=== PATIENT | female | born 1950 | race Caucasian/White ===

== ENCOUNTER → 2016-11-28 | Outpatient (CLI) | payer MEDICARE, MEDICAID ==
[~2016-11-28] MED LIST: ALBU8.5H2 IH; AMLO5TAB2 PO; ATOR20TA66 PO; AZIT-21 PO; BUDE6HFA IH; FURO40TA4 PO; IPR14IN INH; KCL10CCR PO; LISI40TA PO; LVT.15T PO; NF-ESOM40C PO; PRD20T PO; SITA100T PO; TRAM50TA2 PO; WRF5T PO
--- NOTE | 2016-12-03 08:26 | ECHOCARDIOGRAPHY REPORT ---
DATE OF SERVICE: 12/01/2016 PROCEDURE: 2D Echocardiogram REFERRING PHYSICIAN: Penny Katz NP MEASUREMENT: LVID end diastolic 4.6, IVS thickness 0.9, LVPW thickness 0.9, left atrial diameter 3.7, ejection fraction 60%. FINDINGS: 1. Technical quality is good. 2. The left ventricle is normal in size with normal contractility, systolic function appears to be normal, estimated ejection fraction is 60%. 3. The left atrium is normal in size, no clot or thrombus were seen within the left atrium. 4. The right atrium and right ventricle are normal in size. No clot or thrombus were seen within the right side. 5. The mitral valve is normal in morphology with mild mitral regurgitation noted by color Doppler flow. No mitral valve prolapse, no mitral valve stenosis. 6. The aortic valve is trileaflet with normal opening and closing pattern. No significant aortic stenosis or regurgitation was seen. 7. The tricuspid valve is normal in morphology with mild tricuspid regurgitation noted by color Doppler flow. Doppler across tricuspid valve estimated pulmonary artery pressure of 21 plus right atrial pressure. 8. Pulmonic valve is functioning normally. 9. No pericardial effusion. IN CONCLUSION: 1. Normal left ventricular size and systolic function. Estimated ejection fraction 60%. 2. Mild mitral and tricuspid regurgitation. 3. Estimated pulmonary artery pressure of 30 mmHg. Job ID: [id number] DocumentID: [id number] Dictated Date: 12/02/2016 15:07:01 Manager Field Sales Date: 12/03/2016 07:02:19 Dictated By: PERRY DEY MD
== END ==
LOC: CARD 14:56
PROVIDERS: ATTEND Physician Assistant
DX: I48.2 Chronic atrial fibrillation (principal); E11.9 Type 2 diabetes mellitus without complications; I10 Essential (primary) hypertension; E78.2 Mixed hyperlipidemia

== ENCOUNTER 2020-01-14 01:02 | Emergency (ER) | payer MEDICARE, MEDICAID ==
[~2020-01-14] VITALS: Ht 162.6 cm; Wt 122.7 kg
--- NOTE | 2020-01-14 01:09 | ED Lower Extremity ---
General Stated Complaint: RT KNEE PAIN Source: patient Exam Limitations: no limitations History of Present Illness Date Seen by Provider: Jan 14, 2020 Time Seen by Provider: 01:00 Initial Comments The patient presents to ER by EMS from home with chief complaint 2 days ago she was getting out of a car got her legs tangled up causing some twisting motion and continued pain in her right hip. She says this pain in her leg has been getting worse. She took tramadol at 1400 yesterday and ibuprofen about 6 hours ago with good effect. She says when she got up to go to the bathroom her pain was back and severe so she decided to come to the ER. She is mostly oxygen dependent and uses breathing treatments but she says she is out of both. She myra jimenes follows with Penny Rodriguez at [facility]. She takes blood pressure medicines. She's having no chest pain abdominal pain nausea vomiting fever chills cough shortness of breath. Allergies and Home Medications Allergies Coded Allergies: No Known Drug Allergies (Unverified , 03/07/13) Home Medications Albuterol 8.5 Gm Hfa.aer.ad, 2 PUFF IH Q6H PRN, (Reported) NEEDED FOR SHORTNESS OF BREATH Amlodipine Besylate 5 Mg Tablet, 5 MG PO DAILY, (Reported) Atorvastatin 20 Mg Tablet, 20 MG PO HS, (Reported) Azithromycin 250 Mg Tab, 250 MG PO DAILY Prescribed by: DAVID LYON on 03/09/13 1015 Budesonide/Formoterol Fumarate 10.2 Gm Hfa.aer.ad, 2 PUFF IH BID PRN, (Reported) NEEDED FOR BREATHING Esomeprazole Mag Trihydrate 40 Mg Capsule.dr, 40 MG PO HS, (Reported) Furosemide 40 Mg Tablet, 40 MG PO DAILY, (Reported) Ipratropium Maple 12.9 Gm Aers, 2 PUFF INH QID PRN, (Reported) NEEDED FOR BREATHING Levothyroxine Sodium 150 Mcg Tablet, 150 MCG PO DAILY, (Reported) Lisinopril 40 Mg Tablet, 40 MG PO DAILY, (Reported) Potassium Chloride 10 Meq Tablet.sa, 10 MEQ PO HS, (Reported) Prednisone 20 Mg Tab, 20 MG PO DAILY Prescribed by: DAVID LYON on 03/09/13 1015 Sitagliptin Phosphate 100 Mg Tablet, 100 MG PO DAILY, (Reported) Tramadol Hcl 50 Mg Tablet, 50-100 MG PO TID PRN, (Reported) TAKES 1-2 (50MG) TABLETS THREE TIMES DAILY NEEDED FOR PAIN Warfarin Sodium 5 Mg Tablet, 5 MG PO HS, (Reported) Patient Home Medication List Home Medication List Reviewed: Yes Review of Systems Constitutional: No chills, No diaphoresis EENTM: No ear discharge, No eye pain Respiratory: No cough, No short of breath Cardiovascular: No chest pain, No edema Gastrointestinal: No abdominal pain, No nausea, No vomiting Genitourinary: No discharge, No dysuria Control/STD Prophylaxis: None Musculoskeletal: see HPI; No back pain; joint pain Skin: No pruritus, No rash Psychiatric/Neurological: Denies Headache, Denies Numbness, Denies Paresthesia All Other Systems Reviewed Negative Unless Noted: Yes Past Vohdcph-Nfktwa-Qxkkut Hx Patient Social History Alcohol Use: Denies Use Recreational Drug Use: No Smoking Status: Current Everyday Smoker Type Used: Cigarettes Immunizations Up To Date Date of Pneumonia Vaccine: Mar 09, 2013 Seasonal Allergies Seasonal Allergies: No Past Medical History Asthma, Chronic Bronchitis, Sleep Apnea, COPD 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 oz. 118.761855ea; BMI Method: General Appearance: WD/WN, moderate distress HEENT: PERRL/EOMI, normal ENT inspection, pharynx normal Neck: non-tender, full range of motion, normal inspection Cardiovascular: normal peripheral pulses, regular rate, rhythm, other (2+ out of 4 dorsal pedal pulse bilateral, symmetric) Respiratory: respiratory distress (mild sp02 88%), decreased breath sounds, wheezing Gastrointestinal: normal bowel sounds, non tender, soft Hips: left hip non-tender; bilateral hip normal inspection; left hip normal range of motion Legs: bilateral leg non-tender, bilateral leg normal inspection, bilateral leg normal range of motion, bilateral leg no evidence of injury Knees: bilateral knee non-tender, bilateral knee normal inspection, bilateral knee normal range of motion, bilateral knee no evidence of injury; right knee other (well-healed, old scar) Neurologic/Tendon: normal sensation, normal motor functions, normal tendon functions Neurologic/Psychiatric: no motor/sensory deficits, alert, normal mood/affect, oriented x 3 Skin: normal color, warm/dry Progress/Results/Core Measures Results/Orders Lab Results Laboratory Tests Test 01/14/20 01:05 01/14/20 01:25 Range/Units White Blood Count 11.6 H 4.3-11.0 10^3/uL Red Blood Count 4.97 4.35-5.85 10^6/uL Hemoglobin 14.6 11.5-16.0 G/DL Hematocrit 45 35-52 % Mean Corpuscular Volume 91 80-99 FL Mean Corpuscular Hemoglobin 29 25-34 PG Mean Corpuscular Hemoglobin Concent 32 32-36 G/DL Red Cell Distribution Width 15.8 H 10.0-14.5 % Platelet Count 257 130-400 10^3/uL Mean Platelet Volume 10.1 7.4-10.4 FL Neutrophils (%) (Auto) 75 42-75 % Lymphocytes (%) (Auto) 9 L 12-44 % Monocytes (%) (Auto) 14 H 0-12 % Eosinophils (%) (Auto) 2 0-10 % Basophils (%) (Auto) 0 0-10 % Neutrophils # (Auto) 8.7 H 1.8-7.8 X 10^3 Lymphocytes # (Auto) 1.0 1.0-4.0 X 10^3 Monocytes # (Auto) 1.7 H 0.0-1.0 X 10^3 Eosinophils # (Auto) 0.2 0.0-0.3 10^3/uL Basophils # (Auto) 0.0 0.0-0.1 10^3/uL Prothrombin Time 33.3 H 12.2-14.7 SEC INR Comment 3.1 H 0.8-1.4 Activated Partial Thromboplast Time 47 H 24-35 SEC Sodium Level 136 135-145 MMOL/L Potassium Level 4.5 3.6-5.0 MMOL/L Chloride Level 100 98-107 MMOL/L Carbon Dioxide Level 25 21-32 MMOL/L Anion Gap 11 5-14 MMOL/L Blood Urea Nitrogen 19 H 7-18 MG/DL Creatinine 0.99 0.60-1.30 MG/DL Estimat Glomerular Filtration Rate 56 BUN/Creatinine Ratio 19 Glucose Level 190 H 70-105 MG/DL Calcium Level 9.5 8.5-10.1 MG/DL Corrected Calcium 9.9 8.5-10.1 MG/DL Total Bilirubin 0.7 0.1-1.0 MG/DL Aspartate Amino Transf (AST/SGOT) 20 5-34 U/L Alanine Aminotransferase (ALT/SGPT) 14 0-55 U/L Alkaline Phosphatase 92 40-136 U/L C-Reactive Protein High Sensitivity 10.77 H 0.00-0.50 MG/DL Total Protein 7.8 6.4-8.2 GM/DL Albumin 3.5 3.2-4.5 GM/DL Urine Color OTHER H Urine Clarity CLOUDY Urine pH 5.5 5-9 Urine Specific [place] 1.010 L 1.016-1.022 Urine Protein NEGATIVE NEGATIVE Urine Glucose (UA) NEGATIVE NEGATIVE Urine Ketones NEGATIVE NEGATIVE Urine Nitrite POSITIVE H NEGATIVE Urine Bilirubin NEGATIVE NEGATIVE Urine Urobilinogen 1.0 < = 1.0 MG/DL Urine Leukocyte Esterase NEGATIVE NEGATIVE Urine RBC (Auto) TRACE-I NEGATIVE Urine RBC 0-2 /HPF Urine WBC NONE /HPF Urine Squamous Epithelial Cells 0-2 /HPF Urine Crystals NONE /LPF Urine Bacteria LARGE H /HPF Urine Casts NONE /LPF Urine Mucus NEGATIVE /LPF Urine Culture Indicated YES My Orders Orders - PAULINE GUPTA Ed Iv/Invasive Line Start (01/14/20 01:06) Cbc With Automated Diff (01/14/20 01:06) Comprehensive Metabolic Panel (01/14/20 01:06) Chest 1 View, Ap/Pa Only (01/14/20 01:06) Knee, Right, 3 Views (01/14/20 01:06) Hip, Right, 2 Views (01/14/20 01:06) Fentanyl Injection (Sublimaze Injection (01/14/20 01:15) Albuterol/Ipra Inhalation Soln (Duoneb I (01/14/20 01:15) Svn Small Volume Nebulizer (01/14/20 01:09) Protime With Inr (01/14/20 01:11) Partial Thromboplastin Time (01/14/20 01:11) Ct Pelvis Wo (01/14/20 ) Fentanyl Injection (Sublimaze Injection (01/14/20 02:00) Ed Iv/Invasive Line Start (01/14/20 02:21) Ns Iv 1000 Ml (Sodium Chloride 0.9%) (01/14/20 02:21) Hs C Reactive Protein (01/14/20 02:22) Continuous Ekg Monitoring (01/14/20 02:27) Ekg Tracing (01/14/20 02:27) Ua Culture If Indicated (01/14/20 02:27) Catheter(Urinary) Insert & Ass 03,15 (01/14/20 02:27) Urine Culture (01/14/20 01:25) Ceftriaxone For Iv Use (Rocephin For I (01/14/20 03:30) Rx-Hydrocodone/Apap 5-325 Mg (Rx-Vicodin (01/14/20 03:30) Medications Given in ED Current Medications Medications Dose Ordered Sig/Jordan Route Start Time Stop Time Status Last Admin Dose Admin Albuterol/ Ipratropium 3 ml ONCE ONCE INH 01/14/20 01:15 01/14/20 01:16 DC 01/14/20 02:00 3 ML Fentanyl Citrate 50 mcg ONCE ONCE IVP 01/14/20 01:15 01/14/20 01:16 DC 01/14/20 01:26 50 MCG Fentanyl Citrate 75 mcg ONCE ONCE IVP 01/14/20 02:00 01/14/20 02:01 DC 01/14/20 01:59 75 MCG Vital Signs/I&O 01/14/20 01/14/20 01:03 02:07 Temp 36.7 Pulse 119 Resp 28 B/P (MAP) 140/82 (101) Pulse Ox 92 92 O2 Delivery Nasal Cannula Nasal Cannula O2 Flow Rate 2.00 2.00 FiO2 28 Progress Progress Note #1: Time: 01:51 Progress Note 50 micro grams of fentanyl did some mild relief of pain. Given in the 75 g. X- rays were obtained of the right hip and knee which were unrevealing of any fracture. A CT of the pelvis without IV contrast was obtained looking for occult pelvis/hip fracture. Basic labs and urine. Matre catheter was initiated is a patient is unable to bear weight. Progress Note #2: Time: 02:25 Progress Note After the second dose of 75 g of fentanyl with patient's pain is under control however she began to desat again because she was mouth breathing so we put her on oxygen mask at 6 L which keeps her about 95-96%. Her heart rate is still elevated and irregular so we will obtain an EKG. A liter fluids as she appears to be dry. Imaging does not show any fracture or other explanation such as incarcerated hernia. Her PT/INR is 3.1 so it's unlikely she has a clot in her leg. She has great dorsal pedal pulses bilaterally making peripheral arterial disease unlikely. Plan to give her a liter fluids and see if that controls her tachycardia. Since she arrived she's been around 110+ or minus A. fib. Progress Note #3: Time: 03:28 Progress Note Reexamination the patient at patient's still having some tenderness on movement of her leg she has full range of motion. She was offered a stay in the hospital for IV antibiotics and pain meds for intractable pain but she says if we can send her home with something for pain she would be okay. We don't have an orthopedic surgeon on-call so we have requested she follow up with Penny Rodriguez and they can redirect from there. She says this is an acceptable plan. We'll discontinue the Marte catheter give her a gram or Rocephin and a take-home pack of hydrocodone. After her liter of fluids her heart rate has come down into the 90s plus or minus still in A. fib. Initial ECG Impression Date: Jan 14, 2020 Initial ECG Impression Time: 02:25 Initial ECG Rate: 109 Initial ECG Rhythm: A Fib/Flutter Initial ECG Intervals: QT (469) Initial ECG Impression: Atrial Fibrillation Initial ECG Comparisson: Unchanged Comment Atrial fibrillation with tachycardia Diagnostic Imaging Diagonstic Imaging: Xray Plain Films/CT/US/NM/MRI: chest Comments No acute cardio pulmonary processes. Reviewed: Reviewed by Me Diagonstic Imaging: Xray Plain Films/CT/US/NM/MRI: knee (right) Comments Hardware in good place. No acute fracture. Reviewed: Reviewed by Me Diagonstic Imaging: Xray Plain Films/CT/US/NM/MRI: hip (right) Comments Moderate osteoarthritis without acute fracture. Reviewed: Reviewed by Me Diagonstic Imaging: CT (without IV contrast) Plain Films/CT/US/NM/MRI: pelvis Comments Umbilical hernia, nonincarcerated. No acute osseous abnormalities. Moderate load of stool bilaterally. Diverticulosis without diverticulitis. Reviewed: Reviewed [place] Study, Reviewed by Me Departure Impression Primary Impression: Right leg pain Additional Impression: UTI (urinary tract infection) Qualified Codes: N30.00 - Acute cystitis without hematuria Disposition: HOME, SELF-CARE Condition: Stable Departure-Patient Inst. Decision time for Depature: 03:15 Referrals: PENNY RODRIGUEZ (PCP) Primary Care Physician Patient Instructions: Acute Cystitis (DC), Opioids for Short-Term Treatment of Pain Add. Discharge Instructions: superannuation funds manager the antibiotic and take one capsule twice a day with food. You may use the hydrocodone one tablet every 6 hours as needed for breakthrough pain. Tylenol 650 mg every 8 hours. Ibuprofen 600 mg every 8 hours. Heating pads, topical creams such as icy hot or Biofreeze etc. Plan to follow up with Penny Rodriguez on Thursday to discuss your pain. You may return to the ER if you're having insurmountable pain, fever or other worrisome symptoms. Scripts Hydrocodone/Acetaminophen (Hydrocodone-Acetamin 5-325 mg) 1 Each Tablet 1 EACH PO Q6H PRN for PAIN-BREAKTHROUGH, #20 TAB 0 Refills Prov: PAULINE GUPTA 01/14/20 Cephalexin (Cephalexin) 500 Mg Tablet 500 MG PO BID for 7 Days, #14 TAB 0 Refills Prov: PAULINE GUPTA 01/14/20 PAULINE GUPTA Jan 14, 2020 01:09
[2020-01-14] MEDS ORDERED: RT-ALBUTEROL/IPRATROPIUM 3 ML (DUONEB) VIAL INH ONE (01:15)
[2020-01-14] MEDS ORDERED: fentaNYL INJECTION 100 MCG/2 ML AMP IVP ONE ×2 (01:15→02:00)
[2020-01-14 01:22] LABS: BASOPHILS % (AUTO) 0 % (0-10); EOSINOPHILS # (AUTO) 0.2 10^3/uL (0.0-0.3); EOSINOPHILS % (AUTO) 2 % (0-10); HEMATOCRIT 45 % (35-52); HEMOGLOBIN 14.6 G/DL (11.5-16.0); LYMPHOCYTES % (AUTO) 9 % (12-44); MEAN CORPUSCULAR HEMOGLOBIN 29 PG (25-34); MEAN CORPUSCULAR HGB CONC 32 G/DL (32-36); MEAN CORPUSCULAR VOLUME 91 FL (80-99); MEAN PLATELET VOLUME 10.1 FL (7.4-10.4); MONOCYTES # (AUTO) 1.7 X 10^3 (0.0-1.0); MONOCYTES % (AUTO) 14 % (0-12); NEUTROPHILS # (AUTO) 8.7 X 10^3 (1.8-7.8); NEUTROPHILS % (AUTO) 75 % (42-75); PLATELET COUNT 257 10^3/uL (130-400); RED CELL DISTRIBUTION WIDTH 15.8 % (10.0-14.5); WHITE BLOOD COUNT 11.6 10^3/uL (4.3-11.0)
[2020-01-14 01:25] LABS: ALBUMIN 3.5 GM/DL (3.2-4.5); POTASSIUM 4.5 MMOL/L (3.6-5.0)
[2020-01-14 01:26] LABS: CALCIUM 9.5 MG/DL (8.5-10.1)
[2020-01-14 01:27] LABS: INR 3.1 (0.8-1.4); PROTHROMBIN TIME PATIENT 33.3 SEC (12.2-14.7)
[2020-01-14 01:28] LABS: TOTAL PROTEIN 7.8 GM/DL (6.4-8.2)
[2020-01-14 01:29] LABS: BILIRUBIN,TOTAL 0.7 MG/DL (0.1-1.0)
[2020-01-14 01:31] LABS: CREATININE SERUM 0.99 MG/DL (0.60-1.30)
[2020-01-14] MEDS ORDERED: NS IV 1000 ML 1,000 ML IV SCH (02:21)
[2020-01-14 02:39] LABS: BILIRUBIN,URINE NEGATIVE (NEGATIVE); CLARITY,URINE CLOUDY; COLOR,URINE OTHER; GLUCOSE, URINE (UA) NEGATIVE (NEGATIVE); KETONES,URINE NEGATIVE (NEGATIVE); LEUKOCYTE ESTERASE ,URINE NEGATIVE (NEGATIVE); NITRITE,URINE POSITIVE (NEGATIVE); PH,URINE 5.5 (5-9); PROTEIN,URINE NEGATIVE (NEGATIVE)
[2020-01-14 02:52] LABS: BACTERIA,URINE LARGE /HPF; RBC,URINE 0-2 /HPF; SQUAMOUS EPITHELIAL CELL,UR 0-2 /HPF
[2020-01-14] MEDS ORDERED: cefTRIAXone FOR IV USE 1,000 MG in WATER (STERILE) FOR INJECTION 10 ML IV ONE (03:30)
[2020-01-14] MEDS ORDERED: RX-HYDROCODONE/APAP 5/325 MG #4 TAB PK PO PRN (03:30)
[2020-01-14] MEDS ORDERED: HYDR-83 PO (03:34)
[2020-01-14] MEDS ORDERED: CEPH500T PO (03:34)
[2020-01-14 03:36] VITALS: BP 125/61
--- NOTE | 2020-01-14 07:29 | Diagnostic Imaging Report ---
EXAMINATION: Right hip radiographs, 2 views. COMPARISON: None. HISTORY: 69-year-old female, fall. Right hip pain. FINDINGS: The right hip is not dislocated. There is moderate joint space loss of the right hip. There is osteophyte formation. There is no identified acute fracture. IMPRESSION: 1. No identified acute bony abnormality of the right hip. 2. Moderate osteoarthritis of the right hip. Dictated by: Dictated on workstation # [id number]
--- NOTE | 2020-01-14 07:38 | Diagnostic Imaging Report ---
EXAMINATION: Chest radiograph, portable AP view. DATE: 01/14/2020 1:53 AM hours. INDICATION: 69-year-old female, right hip injury. Fall. COMPARISON: March 08, 2013. FINDINGS: Heart size and mediastinal contours are unremarkable. There is no identified pneumothorax. There is no large pleural effusion. There is no identified focal airspace consolidation. There is no identified significantly displaced rib fracture. IMPRESSION: No identified acute cardiopulmonary abnormality. Dictated by: Dictated on workstation # [id number]
--- NOTE | 2020-01-14 07:38 | Diagnostic Imaging Report ---
EXAMINATION: Right knee radiographs, 3 views. COMPARISON: September 23, 2012. HISTORY: 69-year-old female, fall. Right knee pain. FINDINGS: There is a right total knee prosthesis. The hardware appears intact. There is no identified periprosthetic lucency. There is no right knee joint effusion. There is no identified acute fracture. IMPRESSION: 1. No identified acute bony abnormality at the level of the right knee. 2. Intact total right knee prosthesis without apparent complication. Dictated by: Dictated on workstation # [id number]
--- NOTE | 2020-01-14 07:40 | Diagnostic Imaging Report ---
PROCEDURE: CT pelvis without contrast. TECHNIQUE: Multiple contiguous axial images were obtained through the pelvis without the use of intravenous contrast. Sagittal and coronal reformations were performed. Auto Exposure Controls were utilized during the CT exam to meet ALARA standards for radiation dose reduction. DATE: January 14, 2020. INDICATION: 69-year-old female, fall. Right hip pain. COMPARISON: None. FINDINGS: There is no identified acute fracture. The hips are not dislocated. There is moderate to severe joint space loss of the right hip with osteophyte formation. There is mild to moderate joint space loss of the left hip with minimal osteophyte formation. The sacroiliac joints are grossly unremarkable in appearance. There are facet degenerative changes bilaterally at L4-L5 and L5-S1. There is no pronounced disc height loss at L4-L5 or L5-S1. There are atherosclerotic calcifications. There is no identified free pelvic fluid or sizable focal fluid collection. There is diverticulosis without evidence of acute diverticulitis. There is an anterior abdominal wall hernia containing segments of small bowel without evidence of obstruction. There is also an additional incompletely imaged anterior abdominal wall hernia containing segments of colon without findings to specifically suggest obstruction at this hernia site. IMPRESSION: 1. No identified acute osseous abnormality of the pelvis or either hip. 2. Anterior abdominal wall hernias containing small bowel and large bowel without clear evidence of obstruction. 3. No sizable focal fluid collection or free pelvic fluid. Dictated by: Dictated on workstation # [id number]
== END 2020-01-14 03:36 | disposition home or self-care (01) ==
LOC: EDUNIT# 01:02 → ER 01:04
DX: M79.604 Pain in right leg (principal); N39.0 Urinary tract infection, site not specified; E11.9 Type 2 diabetes mellitus without complications; J44.9 Chronic obstructive pulmonary disease, unspecified; K21.9 Gastro-esophageal reflux disease without esophagitis; F17.210 Nicotine dependence, cigarettes, uncomplicated; Z79.52 Long term (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 systemic steroids; Z79.84 Long term (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 oral hypoglycemic drugs; Z79.01 Long term (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; X50.1XXA Overexertion from prolonged static or awkward postures, initial encounter
CPT/HCPCS: 36415; 51702; 71045; 72192; 73502; 73562; 80053; 81000; 85025; 85610; 85730; 86141; 87077; 87088; 87186; 93005; 94640; 94760

== ENCOUNTER 2020-01-28 14:14 | Emergency (ER) | payer MEDICARE, MEDICAID ==
[~2020-01-28] VITALS: Ht 162.6 cm; Wt 122.7 kg
[~2020-01-28 14:14] MED LIST changes: +CEPH500T PO; +HYDR-83 PO
[2020-01-28] MEDS ORDERED: NS IV 500 ML 500 ML IV ONE (14:18)
--- OUTSIDE RECORDS SUMMARY | 2020-01-28 14:22 | XMS REPORT ---
Author Author [employer] [facility] Address [address] [address] Care Team Providers Care Authorization Representative Name Role Phone MICHAEL, GEORGINA Unavailable Unavailable MICHAEL, GEORGINA Unavailable DAVID LYON Unavailable MICHAEL, GEORGINA Unavailable DAVID LYON Unavailable MICHAEL, GEORGINA Unavailable DAVID LYON Unavailable MICHAEL, GEORGINA Unavailable MICHAEL, GEORGINA Unavailable MICHAEL, GEORGINA Unavailable MICHAEL, GEORGINA Unavailable MICHAEL, GEORGINA Unavailable MICHAEL, GEORGINA Unavailable MICHAEL, GEORGINA Unavailable MICHAEL, GEORGINA Unavailable MICHAEL, GEORGINA Unavailable MICHAEL, GEORGINA Unavailable MICHAEL, GEORGINA Unavailable MICHAEL, GEORGINA Unavailable MICHAEL, GEORGINA Unavailable MICHAEL, GEORGINA Unavailable MICHAEL, GEORGINA Unavailable MICHAEL, GEORGINA Unavailable MICHAEL, GEORGINA Unavailable MICHAEL, GEORGINA Unavailable MICHAEL, GEORGINA Unavailable MICHAEL, GEORGINA Unavailable MICHAEL, GEORGINA Unavailable MICHAEL, GEORGINA Unavailable MICHAEL, GEORGINA Unavailable MICHAEL, GEORGINA Unavailable MICHAEL, GEORGINA Unavailable MICHAEL, GEORGINA Unavailable MICHAEL, GEORGINA Unavailable MICHAEL, GEORGINA Unavailable MICHAEL, GEORGNIA Unavailable MICHAEL, GEORGINA Unavailable MICHAEL, GEORGINA Unavailable MICHAEL, GEORGINA Unavailable MICHAEL, GEORGINA Unavailable MIGUE, ANGEL Unavailable Unavailable MIGUE, ANGEL Unavailable Unavailable MIGUE, ANGEL Unavailable Unavailable Migration, Doctor Unavailable Unavailable Migration, Doctor Unavailable Unavailable Migration, Doctor Unavailable Unavailable Migration, Doctor Unavailable Unavailable Migration, Doctor Unavailable Unavailable Migration, Doctor Unavailable Unavailable MICHAEL, GEORGINA HOOKMAN Unavailable Unavailable MICHAEL, GEORGINA Unavailable MICHAEL, GEORGINA Unavailable MICHAEL, GEORGINA Unavailable MICHAEL, GEORGINA S Unavailable Unavailable MICHAEL, GEORGINA Unavailable MICHAEL, GEORGINA Unavailable MICHAEL, GEORGINA Unavailable MICHAEL, GEORGINA Unavailable MICHAEL, GEORGINA Unavailable MICHAEL, GEORGINA Unavailable MICHAEL, GEORGINA Unavailable MICHAEL, GEORGINA Unavailable MICHAEL, GEORGINA Unavailable MICHAEL, GEORGINA Unavailable MICHAEL, GEORGINA Unavailable MICHAEL, GEORGINA Unavailable MICHAEL, GEORGINA Unavailable MICHAEL, GEORGINA Unavailable MICHAEL, GEORGINA Unavailable MICHAEL, GEORGINA Unavailable MICHAEL, GEORGINA Unavailable MICHAEL, GEORGINA Unavailable Unavailable Unavailable MICHAEL, GEORGINA Unavailable MICHAEL, GEORGINA Unavailable MICHAEL, GEORGINA Unavailable MICHAEL, GEORGINA Unavailable MICHAEL, GEORGINA Unavailable MICHAEL, GEORGINA Unavailable MICHAEL, GEORGINA Unavailable MICHAEL, GEORGINA Unavailable MICHAEL, GEORGINA Unavailable MICHAEL, GEORGINA Unavailable MICHAEL, GEORGINA Unavailable MICHAEL, GEORGINA Unavailable MICHAEL, GEORGINA Unavailable MICHAEL, GEORGINA Unavailable MICHAEL, GEORGINA Unavailable PAULINE GUPTA MD Unavailable Unavailable ANGEL CAMARENA Unavailable Unavailable PERRY BOYD Unavailable Unavailable JASON, CATHI Unavailable Unavailable JASON, CATHI Unavailable Unavailable Unavailable Unavailable Unavailable Unavailable Unavailable Unavailable Unavailable Unavailable Unavailable Unavailable Unavailable Unavailable Unavailable Unavailable Allergies Normalized Allergy Reported Date of Reaction(s) Care Provider Facility Allergy Type classification allergen Allergy Onset DA (18 Unclassified No Known Drug 03-07-2013 - no information GEORGINAMaribel RODRIGUEZ Not Available sources.) Allergies (45863) no information Unclassified NO KNOWN DRUG NO KNOWN DRUG ANGEL MIGUEL Not Available (21 sources.) ALLERGIES ALLERGIES, (13693) UNKNOWN Medications Current Medications Medication Ingredient Drug Dose Dates Status Sig Sig Care Class(es) (Normalized) (Original) Provid er no Atrovent no 2 04-15-20 Active take 2 Atrovent HF A no information HFA 17 information puff(s 12 puff(s) by 17 n zita (1 source.) mcg/actuati ) inhalation mcg/actuatio on four times n 2 puffs by daily Inhalation route 4 times per day Apr, Active no Symbicort no 2 04-15-20 Active take 2 Symbicort no information 160-4.5 information puff(s 12 puff(s) by 160-4.5 name (1 source.) mcg/actuati ) inhalation mcg/actuatio on twice daily n inhale 2 in the puffs by morning inhalation route 2 times per day in the morning and eveningPRN Apr, Active no Ventolin no 2 10-24-19 Active take 2 Ventolin HF A no information HFA 90 information puff(s 15 puff(s) by 90 n zita (1 source.) mcg/actuati ) inhalation mcg/actuatio on every six n inhale 2 hours as puff by needed Inhalation route as needed every 6 hours for breathing Oct, Active Completed/Discontinued Medications Medication Ingredient Drug Dose Dates Status Sig Sig Care Class(es) (Normalized) (Original) Provid er no ASA 81MG no 11-14-19 no no no no information ENTERIC information 17 - informat information info rmation name (1 source.) COATED TAB 11-20-19 ion 81 MG (BABY 17 ASPIRIN EC) no BISACODYL no 10 mg 11-18-19 no no no no information SUPPOS SUP information 17 - informat informatio n information name (1 source.) 10 MG 11-18-19 ion (DULCOLAX 17 SUPPOS) no CEFUROXIME no 11-15-19 no no no no information PREMIX BAG information 17 - informat informatio n information name (1 source.) IV 750 11-15-19 ion MG/50CC 17 (ZINACEF PREMIX BAG) no cefuroxime no 1.5 g 11-14-19 no no no n o information sodium 1.5 information 17 - informat informatio n information name (1 source.) Gm vial 11-14-19 ion (Zinacef) 17 no cefuroxime no 1.5 g 09-17-19 no no no n o information sodium 1.5 information 17 - informat informatio n information name (1 source.) Gm vial 09-17-19 ion (Zinacef) 17 1.5 g 09-17-2016 no no no no name - information inform informat 09-17-2016 ation ion 1.5 g 08-07-2016 no no no no name - information inform informat 08-07-2016 ation ion no cefuroxime no 750 mg 11-14-19 no no no n o information sodium information 17 - informat information infor mation name (1 source.) 750mg vial 11-14-19 ion (Zinacef) 17 no D5 1/2 NS no 11-14-19 no no no no information 1000CC IV information 17 - informat information in formation name (1 source.) BAG INJ 0 11-21-19 ion 17 no DIPHENHYDRA no 11-14-19 no no no no information MINE VIAL information 17 - informat information in formation name (1 source.) INJ 50 11-17-19 ion MG/CC 17 (BENADRYL VIAL) no ENOXAPARIN no 30 mg 11-15-19 no no no n o information SYRINGE INJ information 17 - informat informati on information name (1 source.) 30 MG 11-23-19 ion (LOVENOX 17 SYRINGE) no Fentanyl no 01-23-20 no no no Perry information citrate information - informat information info rmation Howaye (1 source.) (PF) inj 01-23-20 ion k (no solution 20 phone) 50mcg/mL 1 mL VIAL no FENTANYL no 11-16-19 no no no no information INJ 100 information 17 - informat information info rmation name (1 source.) MCG/2CC 11-18-19 ion VIAL 17 no Hydromorpho no 01-23-20 no no no Perry information ne inj information - informat information infor mation Howaye (1 source.) 2mg/cc vial 01-23-20 ion k (no (Dilaudid) 20 phone) no KETOROLAC no 11-14-19 no no no no information VIAL INJ 30 information 17 - informat informati on information name (1 source.) MG/CC 11-15-19 ion (TORADOL 17 VIAL) no Lactulose Osmotic 11-16-19 no no no no information Laxative 17 - informat information information name (1 source.) 11-23-19 ion 17 no Normal no 11-15-19 no no no no information saline information 17 - informat information infor mation name (1 source.) Translation 11-22-19 ion s: [ NORMAL 17 SALINE 1000CC IV BAG INJ 0.9 % (NS 1000CC IV BAG)] no ONDANSETRON no 01-23-20 no no no Perry information VIAL INJ 4 information - informat informatio n information Howaye (1 source.) MG/2CC 01-23-20 ion k (no (ZOFRAN 2CC 20 phone) VIAL) 11-13-2016 no no no no name - information inform informat 11-20-2016 ation ion no oxyCODONE Opioid 5 mg 01-23-20 no no no Si mon information Agonist - informat information information Howaye (1 source.) 01-23-20 ion k (no 20 phone) no OXYCODONE/A no 11-15-19 no no no no information PAP information 17 - informat information infor mation name (1 source.) 10MG/325MG 11-25-19 ion TAB 0 17 (PERCOCET-1 0) no OXYCODONE/A no 11-14-19 no no no no information PAP information 17 - informat information infor mation name (1 source.) 10MG/325MG 11-21-19 ion TAB 0 17 (PERCOCET-1 0) no SENNA no 11-14-19 no no no no information CONC/DOCUSA information 17 - informat informati on information name (1 source.) TE TAB 0 11-20-19 ion (SENOKOT S) 17 no Temazepam Benzodiazep 15 mg 11-14-19 no no no no information ine 17 - informat information information name (1 source.) 11-20-19 ion 17 Problems Active Problems Problem Normalized Date Last Normalized Normalized Provider Fa cility Classification Problem(s) Recorded Problem Problem Sta tus Duration NEGATED Chest pain, Episodic Active no name no informa tion no unspecified information (7 sources.) Coronary Coronary Chronic Active ANGEL MIGUE Not Available atherosclerosi atherosclerosi (66577) s and other s of [place] heart disease coronary (18 sources.) artery Translations: [ ATHSCL HEART DISEASE OF [place] CORONARY ARTERY W/O ANG PCTRS] Esophageal Esophageal 01-21-2020 - Chronic Active ANGEL MIGUE Not Available disorders (20 reflux (63263) sources.) Translations: [ GASTRO-ESOPHAG EAL REFLUX DISEASE WITHOUT ESOPHAGITIS] Other oil heaterman 01-21-2020 - Episodic Active PAULINE ALONSO , [facility] aftercare (8 (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 [facility] sources.) of oral Hospital - hypoglycemic [place] [facility] (72216) Other oil heaterman 01-21-2020 - Episodic Active PAULINE ALONSO , [facility] after[facility] (8 (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 [facility] sources.) of systemic Hospital - steroids [place] (56401) Heart valve Mitral valve Chronic Active no name no info rmation disorders (3 disorders sources.) Translations: [ TRICUSPID VALVE DISEASE] Disorders of Mixed Chronic Active ANGEL CAMARENA Not Availa ble lipid hyperlipidemia (90604) metabolism (30 Translations: sources.) [ HYPERLIPIDEMIA NEC/NOS, HYPERLIPIDEMIA , UNSPECIFIED, OTHER AND UNSPECIFIED HYPERLIPIDEMIA ] Other Morbid obesity Chronic Active ANGEL CAMARENA Not [place] il[place] nutritional; (55276) endocrine; and metabolic disorders (8 sources.) Chronic Obstructive 01-21-2020 - Chronic Active ANGEL CAMARENA N ot Available obstructive chronic (46852) pulmonary bronchitis disease and with (acute) bronchiectasis exacerbation (20 sources.) Translations: [ Chronic obstructive pulmonary disease, unspecified COPD type, Chronic obstructive pulmonary disease, unspecified COPD type, CHRONIC OBSTRUCTIVE PULMONARY DISEASE W (ACUTE) EXACERBATION, OBSTRUCTIVE CHRONIC BRONCHITIS WITH (ACUTE) EXACERBATION, - Chronic obstructive pulmonary disease, unspecified COPD type J44.9] Pulmonary Other chronic Chronic Active no name no infor mation heart disease pulmonary (3 sources.) heart diseases Other Pain in right 01-21-2020 - Episodic Active PAULINE WELL ER , [facility] Via connective leg [facility] tissue disease Hospital - (16 sources.) [place] (21327) Urinary tract Urinary tract 01-21-2020 - Episodic Active PAULINE ALONSO , [facility] Via infections (8 infection, [facility] sources.) site not Hospital - specified [place] (89073) Past or Other Problems Problem Normalized Date Last Normalized Normalized Provider Fa cility Classification Problem(s) Recorded Problem Problem Sta tus Duration Unclassified OSTEO no information no information ANGEL CAMARENA Not Available (2 sources.) (04328) Other nervous Other acute Episodic Completed ANGEL CAMARENA Not Av ailable system postoperative (05680) disorders (4 pain sources.) Other nervous Other acute Episodic Completed ANGEL CAMARENA Not Av ailable system postprocedural (58349) disorders (4 pain sources.) NEGATED no information no information no information GEORGINA B RENNAN Not Available no (93355) information (1 source.) Unclassified no information no information no information BREND A MICHAEL Not Available (1 source.) (66969) Unclassified no information no information no information BREND A MICHAEL Not Available (1 source.) ([id number]) Procedures Procedure Normalized Procedure Procedure Result Performer Facility Date 05-12-2018 FQ visit, estab pt no information no name [facility] ([id number]) 05-12-2018 Hemoglobin no information no name [facility] glycosylated a1c [facility] (08893) 10-04-2013 Hemoglobin no information no name [facility] glycosylated a1c [facility] (91804) 07-02-2018 Prothrombin time no information no name [facility] (68619) 05-12-2018 Prothrombin time no information no name [facility] (90453) 04-22-2018 Prothrombin time no information no name [facility] (78839) 08-24-2014 Prothrombin time no information no name [facility] (64180) 05-02-2014 Prothrombin time no information no name [facility] (18809) 10-04-2013 Prothrombin time no information no name [facility] (53753) 08-24-2013 Prothrombin time no information no name [facility] (93994) Immunizations Normalized Immunization Date Notes Care Provider Facili ty Immunization influenza, seasonal, 05-26-2018 no information no name [facility] injectable [facility] (71580) pneumococcal 05-26-2018 no information no name [facility] conjugate vaccine, [address] ([address]) Results Test Name Value Interpretation Reference Range Date Time Fa cility (Normalized) (Normalized) (Medline Reference) not yet categorized on null Any Rx 02/2020~No~Cold (no code) [facility] medications, OTC medicine [facility] herbal products (38226) changes since last visit? CURRENT COUMADIN 4mg daily (no code) Count includes the [facility] DOSE [facility] (10512) Lot # [id number] (no code) [facility] (56953) laboratory on null INR Coag (PPP) 3.3~3.0 (no code) Critical access hospital [Relative time] [facility] (26759) inr (in house) on null INR Coag RelTime 4.5 {INR} (no code) 0.9 - 1.1 {INR} [facility] (PPP) [facility] (14555) INR Coag RelTime 4.6 {INR} (no code) 0.9 - 1.1 {INR} [facility] (PPP) [facility] (10083) INR (IN HOUSE) 5 mg qd (no code) [facility] (04738) INR (IN HOUSE) [id number] (no code) [facility] (57726) INR (IN HOUSE) 06/09/2018 (no code) [facility] (67117) a1c (in house) on null Hemoglobin 7.3 % (no code) 0 - 5.7 % [facility] A1c/Hemoglobin.t [facility] (Bld) (55977) Hemoglobin 7.0 % (no code) 0 - 5.7 % [facility] A1c/Hemoglobin.t [facility] (d) (69499) A1C (IN HOUSE) 0856 (no code) [facility] (42417) A1C (IN HOUSE) 10/2019 (no code) [facility] (64894) not yet categorized on 2020-01-23 Electrocardiogra Complete (no code) 01-23-2020 Hospital ms recorded 06:00-0400 [facility] (48143) Urine Volume Urine Volume (no code) 01-23-2020 Hospital Sufficient 05:41-0400 [facility] (10mL) [facility] (73828) no information Urine Saved if (A) 06-15-2020 Hospital Culture Needed 05:41-399 [facility] (48hrs from time [facility] of collection) (82814) laboratory on 2020-01-23 Albumin BCG dye 3.3 (L) 01-23-2020 Hospital [Mass/Vol] 05:40-040 [facility] (16576) ALP [Catalytic 94 U/L (no code) 44 - 147 U/L 01-23-2020 Hosp ital activity/Vol] 05:40040 [facility] (31492) ALT [Catalytic 19 U/L (no code) 4 - 40 U/L 01-23-2020 Hospit al activity/Vol] 05:40040 [facility] (26638) Anion gap 17 mmol/L (H) 3 - 11 mmol/L 01-23-2020 Hospital [Moles/Vol] 05:40040 [facility] (78360) AST [Catalytic 20 U/L (no code) 10 - 34 U/L 01-23-2020 Hospi rubén activity/Vol] 05:40-040 [facility] (83806) Bacteria LM Ql Negative (no code) 01-23-2020 Hospital (Urine sed) 05:41040 [facility] (64084) Base excess 9.00 (H) 01-23-2020 Hospital standard Calc 06:00-399 [facility] (BldA) [facility] [Moles/Vol] (75004) Base excess 10.00 (H) 01-23-2020 Hospital standard Calc 07:00-399 [facility] (BldA) [facility] [Moles/Vol] (12290) Basophils (Bld) 0.0 10*3/uL (no code) 0 - 0.3 10*3/uL 01-23-2020 Hospital [#/Vol] 05:40-0400 [facility] (86005) Basophils/100 0.20 % (no code) 0.5 - 1 % 01-23-2020 Hospital WBC (Bld) 05:40040 [facility] (04414) Bilirubin 0.5 mg/dL (no code) 0.1 - 1.2 mg/dL 01-23-2020 Hospit al [Mass/Vol] 05:400 [facility] (91452) Bilirubin N/A (A) 01-23-2020 Hospital Confirm Ql (U) 05:41 [facility] (00041) Bilirubin Ql (U) Negative (no code) 01-23-2020 Hospital 05:41 [facility] (73897) Calcium 9.4 mg/dL (no code) 8.5 - 10.2 mg/dL 01-23-2020 Hospi rubén [Mass/Vol] 05:40 [facility] (54056) Casts LM Ql None Seen (no code) 01-23-2020 Hospital (Urine sed) 05: [facility] (80234) Chloride 92 mmol/L (L) 95 - 106 mmol/L 01-23-2020 Hospit al [Moles/Vol] 05:40 [facility] (46935) Clarity (U) Clear (no code) 01-23-2020 Hospital 05:41 [facility] (00217) CO2 (Bld) 55 (H) 01-23-2020 Hospital [Partial 06:00 [facility] pressure] [facility] (22105) CO2 (Bld) 57 (H) 01-23-2020 Hospital [Partial 07:000 [facility] pressure] [facility] (51204) Color (U) Yellow (no code) 01-23-2020 Hospital 05:41 [facility] (40450) Creatinine 0.88 mg/dL (no code) 01-23-2020 Hospital [Mass/Vol] 05:400400 [facility] (17159) Crystals LM Nom None Seen (no code) 01-23-2020 Hospital (Urine sed) 05:41 [facility] (25064) Eosinophils 0.2 10*3/uL (no code) 0.05 - 0.5 01-23-2020 Hospita l (Bld) [#/Vol] 10*3/uL 05:400400 [facility] (68145) Eosinophils/100 1.3 % (no code) 1 - 4 % 01-23-2020 Hospit al WBC (Bld) 05:40-040 [facility] (33331) Epithelial 0-5/HPF (A) 01-23-2020 Hospital cells.squamous 05:41-040 [facility] LM.HPF (Urine [facility] sed) [#/Area] (54247) Erythrocyte 15.7 % (H) 11.6 - 14.6 % 01-23-2020 Hospit al distribution 05:40-040 [facility] width (RBC) [facility] [Ratio] (47242) GFR/1.73 sq 64 (no code) 90 - 120 01-23-2020 Hospital M.predicted MDRD mL/min/{1.73_m2} mL/min/{1.73_m2} 05:40-040 [facility] (S/P/Bld) [Vol [facility] rate/Area] (36510) Globulin (S) 4.7 g/dL (H) 2 - 3.5 g/dL 01-23-2020 Hospit al [Mass/Vol] 05:40-040 [facility] (73692) Glucose 188 mg/dL (H) 60 - 125 mg/dL 01-23-2020 Hospita l [Mass/Vol] 05:40-040 [facility] (05151) Glucose Test Negative (no code) 01-23-2020 Hospital strip (U) 05:41040 [facility] [Mass/Vol] [facility] (33666) HCO3 (BldMV) 34 (H) 01-23-2020 Hospital [Moles/Vol] 06:00 [facility] (72575) HCO3 (BldMV) 35 (H) 01-23-2020 Hospital [Moles/Vol] 07:00-0 [facility] (77944) HCO3 (P) 29 (no code) 01-23-2020 Hospital [Moles/Vol] 05:40-0400 [facility] (86910) Hematocrit (Bld) 44.6 % (no code) 36.1 - 50.3 % 01-23-2020 H ospital [Volume 05:40-0400 [facility] fraction] [facility] (80051) Hemoglobin (Bld) 14.1 g/dL (no code) 12.1 - 17.2 g/dL 01-23-2020 Hospital [Mass/Vol] 05:40-0400 [facility] (98814) Hemoglobin Ql 1+ (A) 01-23-2020 Hospital (U) 05:41 [facility] (10526) INR Coag 2.7 (no code) 01-23-2020 Hospital (Platelet poor 05:40040 [facility] plasma or blood) [facility] [Relative time] (93405) Ketones (U) Negative (no code) 01-23-2020 Hospital [Mass/Vol] 05:410400 [facility] (29629) Leukocyte Negative (no code) 01-23-2020 Hospital esterase Test 05:41 [facility] strip Ql (U) [facility] (68220) Lymphocytes 1.00 10*3/uL (no code) 0.9 - 2.9 01-23-2020 Hospita l (Bld) [#/Vol] 10*3/uL 05:400400 [facility] (47671) Lymphocytes/100 8.8 % (L) 20 - 40 % 01-23-2020 Hospit al WBC (Bld) 05:40040 [facility] (64650) MCH (RBC) 29.5 pg (no code) 27 - 31 pg 01-23-2020 Hospital [Entitic mass] 05:400400 [facility] (66315) MCHC (RBC) 31.6 g/dL (L) 32 - 36 g/dL 01-23-2020 Hospital [Mass/Vol] 05:40-0400 [facility] (19808) MCV (RBC) 93.3 fL (no code) 80 - 100 fL 01-23-2020 Hospital [Entitic vol] 05:40-0400 [facility] (72402) Monocytes (Bld) 1.1 10*3/uL (H) 0.3 - 0.9 01-23-2020 Hosp ital [#/Vol] 10*3/uL 05:40-040 [facility] (85439) Monocytes/100 9.6 % (no code) 2 - 8 % 01-23-2020 Hospital WBC (Bld) 05:40-040 [facility] (78829) Mucus Ql (Urine Negative (A) 01-23-2020 Hospital sed) 05:41-399 [facility] (60160) Neutrophils 9.13 10*3/uL (H) 1.7 - 7 10*3/uL 01-23-2020 H ospital (Bld) [#/Vol] 05:40 [facility] (64177) Neutrophils/100 80.1 % (H) 40 - 60 % 01-23-2020 Hospit al WBC (Bld) 05:40 [facility] (13541) Nitrite Ql (U) Negative (no code) 01-23-2020 Hospital 05:41 [facility] (89282) Osmolality Calc 282 (no code) 01-23-2020 Hospital [Osmolality] 05:40 [facility] (42065) Oxygen adjusted 43 (L) 01-23-2020 Hospital to patient's 06: [facility] actual [facility] temperature (04825) (BldA) [Partial pressure] Oxygen adjusted 46 (L) 01-23-2020 Hospital to patient's 07: [facility] actual [facility] temperature (42711) (BldA) [Partial pressure] Oxygen 77 RM AIR (L) 01-23-2020 Hospital saturation 06: [facility] adjusted to 0.5 [facility] (BldA) [Partial (79206) pressure] Oxygen 81 RM AIR (L) 01-23-2020 Hospital saturation 07: [facility] adjusted to 0.5 [facility] (BldA) [Partial (03722) pressure] pH (Bld) 7.39 [pH] (no code) 7.38 - 7.42 [pH] 01-23-2020 Hospi rubén 06:00 [facility] (10280) pH (Bld) 7.40 [pH] (no code) 7.38 - 7.42 [pH] 01-23-2020 Hospi rubén 07:00040 [facility] () pH (U) 6.0 [pH] (no code) 4.6 - 8 [pH] 01-23-2020 Hospital 05:41-0400 [facility] () Platelet mean 9.0 fL (no code) 7.2 - 11.7 fL 01-23-2020 Hosp ital volume (Bld) 05:40040 [facility] [Entitic vol] [facility] (41486) Platelets (Bld) 349 10*3/uL (no code) 150 - 450 01-23-2020 Hosp ital [#/Vol] 10*3/uL 05:40040 [facility] () Potassium 4.4 mmol/L (no code) 3.7 - 5.2 mmol/L 01-23-2020 Hosp ital [Moles/Vol] 05:40 [facility] () Protein (U) Negative (no code) 0 - 20 mg/dL 01-23-2020 Hospita l [Mass/Vol] 05:41040 [facility] () Protein 8.0 g/dL (no code) 6.4 - 8.3 g/dL 01-23-2020 Hospita l [Mass/Vol] 05:40-0400 [facility] () PT Coag (PPP) 31.4 s (H) 9.4 - 12.5 s 01-23-2020 Hospi rubén [Time] 05:40040 [facility] () RBC (Bld) 4.78 10*6/uL (no code) 4.2 - 6.1 01-23-2020 Hospital [#/Vol] 10*6/uL 05:40040 [facility] () RBC LM.HPF Negative (no code) 0 - 4 /[HPF] 01-23-2020 Hospital (Urine sed) 05:41 [facility] of [#/Area] [facility] () Sodium 134 mmol/L (no code) 135 - 145 mmol/L 01-23-2020 Hosp ital [Moles/Vol] 05:40-0400 [facility] ([id number]) Specific gravity 1.015 (no code) 01-23-2020 Hospital (U) [Rel 05:41-0400 [facility] of density] [facility] (40527) Urea nitrogen 13 mg/dL (no code) 7 - 20 mg/dL 01-23-2020 Hospi rubén [Mass/Vol] 05:40-0400 [facility] ([id number]) Urobilinogen Qn [id number] (A) 01-23-2020 Hospital (U) {Josefa'U}/dL 05:41-0400 [facility] o f [facility] (48729) WBC (Bld) 11.39 10*3/uL (H) 3.5 - 10.5 01-23-2020 Hospita l [#/Vol] 10*3/uL 05:40-0400 [facility] (86326) WBC LM.HPF Negative (no code) 0 - 5 /[HPF] 01-23-2020 Hospital (Urine sed) 05:41-0400 [facility] of [#/Area] [facility] (05617) Yeast.budding Ql No Yeast present (no code) 01-23-2020 Hosp ital (Urine sed) 05:41-0400 [facility]1 [facility] (88958) not yet categorized on 2020-01-16 CURRENT COUMADIN 4 mg daily (no code) [facility] DOSE [facility] (34290) Lot # [id number] (no code) [facility] (52203) Missed doses of 04/2020~no (no code) [facility] medication in [facility] the last 5-7 [facility] days? (08924) laboratory on 2020-01-16 INR Coag (PPP) 3.3~2.7 (no code) [facility] [Relative time] [facility] (88132) not yet categorized on 2020-01-13 COLONY COUNT >100,000/ML (no code) 01-13-2020 PENDING LOCAT ION 21:25-0400 [facility] (90384) SUSCEPTIBILITY SUSCEPTIBILITY (no code) 01-13-2020 PENDING LOCATION REPORTED 01-16-20, 21:0400 [facility] (39986) 1125. laboratory on 2020-01-13 Albumin 3.5 g/dL (NEG) 3.4 - 5.4 g/dL 01-13-2020 PENDING LOCATION [Mass/Vol] 21:05-0400 [facility] (05679) ALP [Catalytic 92 U/L (NEG) 44 - 147 U/L 01-13-2020 PEND ING LOCATION activity/Vol] 21:05-0400 [facility] ([id number]) ALT [Catalytic 14 U/L (NEG) 4 - 40 U/L 01-13-2020 PENDIN G LOCATION activity/Vol] 21:05-0400 [facility] (60296) Amoxicillin+Clav <= (S) 01-13-2020 PENDING L OCATION ulanate LETY 21:-0400 [facility] (72577) [Susc] Ampicillin LETY > (R) 01-13-2020 PENDING LOC ATION [Susc] :040 [facility] (49856) Anion gap 11 mmol/L (NEG) 3 - 11 mmol/L 01-13-2020 PENDING LOCATION [Moles/Vol] 21:-0400 [facility] (29925) aPTT Coag (PPP) 47 s (H) 25 - 35 s 01-13-2020 PENDIN G LOCATION [Time] 21:-0400 [facility] ([id number]) AST [Catalytic 20 U/L (NEG) 10 - 34 U/L 01-13-2020 PENDI NG LOCATION activity/Vol] :0400 [facility] (55689) Bacteria [id number] (no code) 01-13-2020 PENDING LOCATI ON identified Cx :0400 [facility] ([id number]) Nom (U) Bacteria [id number] (no code) 01-13-2020 PENDING LOCATI ON identified Cx :-0400 [facility] (83788) Nom (U) Bacteria LM Ql LARGE (A) 01-13-2020 PENDING LOC ATION (Urine sed) 21:-0400 [facility] ([id number]) Basophils (Bld) 0.0 10*3/uL (NEG) 0 - 0.3 10*3/uL 01-13-2020 PENDING LOCATION [#/Vol] 21:05-0400 [facility] (61961) Basophils/100 0 % (NEG) 0.5 - 1 % 01-13-2020 PENDING LOCATION WBC (Bld) 21:05-0400 [facility] (93044) Bilirubin 0.7 mg/dL (NEG) 0.1 - 1.2 mg/dL 01-13-2020 PENDIN G LOCATION [Mass/Vol] 21:05-0400 [facility] (69188) Bilirubin Ql (U) Negative (no code) 01-13-2020 PENDING L OCATION :-0400 [facility] (86879) Calcium 9.5 mg/dL (NEG) 8.5 - 10.2 mg/dL 01-13-2020 PENDI NG LOCATION [Mass/Vol] 21:05-0400 [facility] ([id number]) Calcium 9.9 mg/dL (NEG) 8.5 - 10.2 mg/dL 01-13-2020 PENDI NG LOCATION [Mass/Vol] 21:05-0400 [facility] (19867) Casts LM Ql NONE (no code) 01-13-2020 PENDING LOCATI ON (Urine sed) :0400 [facility] ([id number]) Cefazolin LETY <= (S) 01-13-2020 PENDING LOCA TION [Susc] :0400 [facility] (56063) Ceftriaxone LETY <= (S) 01-13-2020 PENDING LO CATION [Susc] 21:-0400 [facility] (95507) Chloride 100 mmol/L (NEG) 95 - 106 mmol/L 01-13-2020 PENDI NG LOCATION [Moles/Vol] 21:05-0400 [facility] (52164) Ciprofloxacin <= (S) 01-13-2020 PENDING LOCA TION LETY [Susc] 21:25-0400 [facility] (82206) Clarity (U) CLOUDY (no code) 01-13-2020 PENDING LOCATI ON :0400 [facility] (75479) CO2 [Moles/Vol] 25 mmol/L (NEG) 23 - 29 mmol/L 01-13-2020 P ENDING LOCATION :0400 [facility] (16945) Color (U) OTHER (A) 01-13-2020 PENDING LOCATI ON :25-0400 [facility] (86567) Creatinine 0.99 mg/dL (NEG) 01-13-2020 PENDING LOCATI ON [Mass/Vol] 21:05-0400 [facility] (93538) Creatinine and 56 (no code) 01-13-2020 PENDING LOC ATION Glomerular 21:05-0400 [facility] (03281) filtration rate.predicted panel - Serum, Plasma or Blood CRP [Mass/Vol] 10.77 (H) 01-13-2020 PENDING LOC ATION 21:05-0400 [facility] (43519) Crystals LM Ql NONE (no code) 01-13-2020 PENDING LOC ATION (Urine sed) 21:25-0400 [facility] (48056) Eosinophils 0.2 10*3/uL (NEG) 0.05 - 0.5 01-13-2020 PENDING LOCATION (Bld) [#/Vol] 10*3/uL 21:05-0400 [facility] (88174) Eosinophils/100 2 % (NEG) 1 - 4 % 01-13-2020 PENDIN G LOCATION WBC (Bld) 21:05-0400 [facility] (13721) Epithelial 0-2 (no code) 01-13-2020 PENDING LOCATI ON cells.squamous 21:25-0400 [facility] ([id number]) LM Ql (Urine sed) Erythrocyte 15.8 % (H) 11.6 - 14.6 % 01-13-2020 PENDIN G LOCATION distribution 21:05-0400 [facility] (78527) width (RBC) [Ratio] Gentamicin LETY <= (S) 01-13-2020 PENDING LOC ATION [Susc] 21:25-0400 [facility] (82796) Glucose 190 mg/dL (H) 60 - 125 mg/dL 01-13-2020 PENDING LOCATION [Mass/Vol] 21:05-0400 [facility] (58360) Glucose Auto Negative (no code) 01-13-2020 PENDING LOCAT ION test strip Ql 21:25-0400 [facility] (18747) (U) Hematocrit (Bld) 45 % (NEG) 36.1 - 50.3 % 01-13-2020 P ENDING LOCATION [Volume 21:05-0400 [facility] (40770) fraction] Hemoglobin (Bld) 14.6 g/dL (NEG) 12.1 - 17.2 g/dL 01-13-2020 PENDING LOCATION [Mass/Vol] 21:05-0400 [facility] (96191) INR Coag 3.1 (H) 01-13-2020 PENDING LOCATI ON (Platelet poor 21:05-0400 [facility] (21737) plasma or blood) [Relative time] Ketones Auto Negative (no code) 01-13-2020 PENDING LOCAT ION test strip Ql 21:25-0400 [facility] (28210) (U) Leukocyte Negative (no code) 01-13-2020 PENDING LOCATI ON esterase Test 21:25-0400 [facility] (49520) strip Ql (U) Levofloxacin LETY <= (S) 01-13-2020 PENDING L OCATION [Susc] 21:25-0400 [facility] (43385) Lymphocytes 1.0 10*3/uL (NEG) 0.9 - 2.9 01-13-2020 PENDING LOCATION (Bld) [#/Vol] 10*3/uL 21:05-0400 [facility] (34425) Lymphocytes/100 9 % (L) 20 - 40 % 01-13-2020 PENDIN G LOCATION WBC (Bld) 21:05-0400 [facility] (99484) MCH (RBC) 29 pg (NEG) 27 - 31 pg 01-13-2020 PENDING LOC ATION [Entitic mass] 21:05-0400 [facility] (94137) MCHC (RBC) 32 g/dL (NEG) 32 - 36 g/dL 01-13-2020 PENDING LOCATION [Mass/Vol] 21:05-0400 [facility] (22614) MCV (RBC) 91 (NEG) 01-13-2020 PENDING LOCATI ON [Entitic vol] 21:05-0400 [facility] (89475) Meropenem LETY <= (S) 01-13-2020 PENDING LOCA TION [Susc] 21:25-0400 [facility] (96834) Monocytes (Bld) 1.7 10*3/uL (H) 0.3 - 0.9 01-13-2020 PEND ING LOCATION [#/Vol] 10*3/uL 21:05-0400 [facility] ([id number]) Monocytes/100 14 % (H) 2 - 8 % 01-13-2020 PENDING LOCATION WBC (Bld) 21:05-0400 [facility] (49181) Mucus Ql (Urine Negative (no code) 01-13-2020 PENDING LO CATION sed) 21:25-0400 [facility] (52711) Neutrophils 8.7 10*3/uL (H) 1.7 - 7 10*3/uL 01-13-2020 PE NDING LOCATION (Bld) [#/Vol] 21:05-0400 [facility] (89692) Neutrophils/100 75 % (NEG) 40 - 60 % 01-13-2020 PENDIN G LOCATION WBC (Bld) 21:05-0400 [facility] (84417) Nitrite Ql (U) Positive (A) 01-13-2020 PENDING LOC ATION 21:25-0400 [facility] (71138) Nitrofurantoin <= (S) 01-13-2020 PENDING LOC ATION LETY [Susc] 21:25-0400 [facility] (96605) pH (U) 5.5 [pH] (no code) 4.6 - 8 [pH] 01-13-2020 PENDING L OCATION 21:25-0400 [facility] ([id number]) Platelet mean 10.1 (NEG) 01-13-2020 PENDING LOCA TION volume (Bld) 21:05-0400 [facility] ([id number]) [Entitic vol] Platelets (Bld) 257 10*3/uL (NEG) 150 - 450 01-13-2020 PEND ING LOCATION [#/Vol] 10*3/uL 21:05-0400 [facility] (46510) Potassium 4.5 mmol/L (NEG) 3.7 - 5.2 mmol/L 01-13-2020 PEND ING LOCATION [Moles/Vol] 21:05-0400 [facility] (01750) Protein 7.8 g/dL (NEG) 6.4 - 8.3 g/dL 01-13-2020 PENDING LOCATION [Mass/Vol] 21:05-0400 [facility] (56212) Protein Ql (U) Negative (no code) 01-13-2020 PENDING LOC ATION 21:25-0400 [facility] ([id number]) PT Coag (PPP) 33.3 s (H) 9.4 - 12.5 s 01-13-2020 PENDI NG LOCATION [Time] 21:05-0400 [facility] (79787) RBC (Bld) 4.97 10*6/uL (NEG) 4.2 - 6.1 01-13-2020 PENDING L OCATION [#/Vol] 10*6/uL 21:05-0400 [facility] (59202) RBC LM.HPF no information (no code) 01-13-2020 PENDING LOC ATION (Urine sed) 21:25-0400 [facility] (23499) [#/Area] RBC Ql (U) TRACE-I (no code) 01-13-2020 PENDING LOCATI ON 21:25-0400 [facility] (39102) Sodium 136 mmol/L (NEG) 135 - 145 mmol/L 01-13-2020 PEND ING LOCATION [Moles/Vol] 21:05-0400 [facility] (66494) Specific gravity 1.010 (L) 01-13-2020 PENDING L OCATION (U) [Rel :25-0400 [facility] (28517) density] Trimethoprim+Sul <= (S) 01-13-2020 PENDING L OCATION famethoxazole 21:25-0400 [facility] (05965) LETY [Susc] Urea nitrogen 19 mg/dL (H) 7 - 20 mg/dL 01-13-2020 PENDI NG LOCATION [Mass/Vol] 21:05-0400 [facility] (41097) Urea 19 mg/mg (no code) 6 - 22 mg/mg 01-13-2020 PENDING L OCATION nitrogen/Creatin 21:05-0400 [facility] (40964) ine [Mass ratio] Urinalysis YES (no code) 01-13-2020 PENDING LOCATI ON complete W 21:25-0400 [facility] (47829) Reflex Culture panel - Urine Urobilinogen (U) 1.0 mg/dL (no code) 01-13-2020 PENDING L OCATION [Mass/Vol] 21:25-0400 [facility] (02939) WBC (Bld) 11.6 10*3/uL (H) 3.5 - 10.5 01-13-2020 PENDING LOCATION [#/Vol] 10*3/uL 21:05-0400 [facility] (42960) WBC LM.HPF NONE (no code) 01-13-2020 PENDING LOCATI ON (Urine sed) 21:25-0400 [facility] (43750) [#/Area] not yet categorized on 2019-12-21 Exp date 07/2021 (no code) [facility] (65642) Lot 7.4~7.5~0610 (no code) [facility] (30715) laboratory on 2019-12-21 Albumin 3.8 g/dL (N) 3.4 - 5.4 g/dL [facility] [Mass/Vol] [facility] () Albumin/Globulin 1.0 {ratio} (N) 1 - 2.5 {ratio} Comm [facility] [Mass ratio] [facility] (84828) ALP [Catalytic 102 U/L (N) 44 - 147 U/L [facility] activity/Vol] [facility] (43740) ALT [Catalytic 18 U/L (N) 4 - 40 U/L [facility] ealt activity/Vol] [facility] (08978) AST [Catalytic 23 U/L (N) 10 - 34 U/L [facility] activity/Vol] [facility] (29555) Basophils (Bld) 0.019 10*3/uL (N) 0 - 0.3 10*3/uL [facility] [#/Vol] [facility] (54020) Basophils/100 0.2 % (N) 0.5 - 1 % [facility] WBC (Bld) [facility] (05863) Bilirubin 0.8 mg/dL (N) 0.1 - 1.2 mg/dL [facility] [Mass/Vol] [facility] (06736) Calcium 9.6 mg/dL (N) 8.5 - 10.2 mg/dL [facility] [Mass/Vol] [facility] (17879) Chloride 99 mmol/L (N) 95 - 106 mmol/L [facility] [Moles/Vol] [facility] (52108) Cholesterol 126 mg/dL (N) 180 - 200 mg/dL [facility] [Mass/Vol] [facility] (86836) Cholesterol in 36 mg/dL (L) [facility] HDL [Mass/Vol] [facility] (01649) Cholesterol in 68 mg/dL (N) 0 - 100 mg/dL [facility] LDL [Mass/Vol] [facility] (87742) Cholesterol non 90 mg/dL (N) [facility] HDL [Mass/Vol] [facility] (12234) Cholesterol.tota 3.5 {ratio} (N) [facility] lth l/Cholesterol in [facility] HDL [Mass ratio] [facility] (52120) CO2 [Moles/Vol] 29 mmol/L (N) 23 - 29 mmol/L [facility] (69235) Creatinine 0.90 mg/dL (N) [facility] h [Mass/Vol] [facility] (16399) Eosinophils 0.32 10*3/uL (N) 0.05 - 0.5 [facility] ([facility]ld[facility] [#/Vol] 10*3/uL [facility] (34933) Eosinophils/100 3.4 % (N) 1 - 4 % [facility] WBC (Bld) [facility] (13811) Erythrocyte 15.1 % (H) 11.6 - 14.6 % [facility] ealth distribution [facility] (RBC) [facility] [Ratio] (47757) GFR/1.73 sq M 77 (N) 90 - 120 [facility] predicted among mL/min/{1.73_m2} mL/min/{1.73_m2} [facility] MDRD [facility] (S/P/Bld) [Vol (14029) rate/Area] GFR/1.73 sq 66 (N) 90 - 120 [facility] M.predicted MDRD mL/min/{1.73_m2} mL/min/{1.73_m2} [facility] (S/P/Bld) [Vol [facility] rate/Area] (21179) Globulin (S) 3.7 g/dL (N) 2 - 3.5 g/dL [facility] ealth [Mass/Vol] [facility] (59698) Glucose 144 mg/dL (H) 60 - 125 mg/dL [facility] [Mass/Vol] [facility] (36411) HbA1c (Bld) 7.6 (H) [facility] (86784) Hematocrit (Bld) 48.5 % (H) 36.1 - 50.3 % [facility] ity Health [Volume [facility] (30751) Hemoglobin (Bld) 15.5 g/dL (N) 12.1 - 17.2 g/dL [facility] Health [Mass/Vol] [facility] (04523) Lymphocytes 1.448 10*3/uL (N) 0.9 - 2.9 [facility] (Bld) [#/Vol] 10*3/uL [facility] (09936) Lymphocytes/100 15.4 % (N) 20 - 40 % [facility] WBC (Bld) [facility] (61712) MCH (RBC) 29.8 pg (N) 27 - 31 pg [facility] th [Entitic mass] [facility] (41555) MCHC (RBC) 32.0 g/dL (N) 32 - 36 g/dL [facility] [Mass/Vol] [facility] (33450) MCV (RBC) 93.3 fL (N) 80 - 100 fL [facility] [Entitic vol] [facility] (27671) Monocytes (Bld) 0.724 10*3/uL (N) 0.3 - 0.9 Commun[facility] [#/Vol] 10*3/uL [facility] (55225) Monocytes/100 7.7 % (N) 2 - 8 % [facility] WBC (Bld) [facility] (12151) Neutrophils 6.89 10*3/uL (N) 1.7 - 7 10*3/uL [facility] (Bld) [#/Vol] [facility] (48409) Neutrophils/100 73.3 % (N) 40 - 60 % [facility] WBC (Bld) [facility] (36806) Platelet mean 10.2 fL (N) 7.2 - 11.7 fL [facility] volume (Bld) [facility] [Entitic vol] [facility] (86076) Platelets (Bld) 286 10*3/uL (N) 150 - 450 [facility] [#/Vol] 10*3/uL [facility] (89620) Potassium 4.2 mmol/L (N) 3.7 - 5.2 mmol/L [facility] [Moles/Vol] [facility] (76842) Protein 7.5 g/dL (N) 6.4 - 8.3 g/dL [facility] [Mass/Vol] [facility] (33604) RBC (Bld) 5.20 10*6/uL (H) 4.2 - 6.1 [facility] [#/Vol] 10*6/uL [facility] (59408) Sodium 142 mmol/L (N) 135 - 145 mmol/L [facility] [Moles/Vol] [facility] (67308) Triglyceride 135 mg/dL (N) 0 - 150 mg/dL [facility] [Mass/Vol] [facility] (04111) TSH Qn 0.13 m[IU]/L (L) 0.4 - 4 m[IU]/L [facility] (68979) Urea nitrogen 16 mg/dL (N) 7 - 20 mg/dL [facility] [Mass/Vol] [facility] (74961) Urea NOT APPLICABLE (no code) Critical access hospital nitrogen/Creatin [facility] [Mass ratio] [facility] (09159) WBC (Bld) 9.4 10*3/uL (N) 3.5 - 10.5 [facility] th [#/Vol] 10*3/uL [facility] (28076) not yet categorized on 2019-12-13 Any Rx 04/2020~no~no (no code) Critical access hospital medications, OTC [facility] medications, or [facility] herbal products (07287) changes since last visit? CURRENT COUMADIN 4 mg qd (no code) [facility] DOSE [facility] (98010) Lot # [id number] (no code) [facility] (67893) laboratory on 2019-12-13 INR Coag (PPP) 2.7~3.0 (no code) [facility] [Relative time] [facility] (88360) not yet categorized on 2019-10-12 Any Rx 05/09/2020~no~no (no code) Count includes the [facility] medications, OTC [facility] medications, or [facility] herbal products (82708) changes since last visit? CURRENT COUMADIN 4mg daily (no code) [facility] (27963) Lot # [id number] (no code) [facility] (24804) laboratory on 2019-10-12 INR Coag (PPP) 3.0~2.7 (no code) [facility] [[facility] time] [facility] (18275) not yet categorized on 2019-09-05 COMMENT no information (no code) [facility] (11830) CURRENT COUMADIN 4mg (no code) Count includes the [facility] DOSE [facility] (92114) Exp date 03/2021 (no code) [facility] (90761) Lot 7.5~11.6~0552 (no code) [facility] (12425) Lot # [id number] (no code) [facility] (51001) Missed doses of 05/09/2020~no (no code) Community [facility] medication in [facility] the last 5-7 [facility] days? (47877) Prescribed Drug Tramadol (no code) [facility] 2 [facility] (22072) Prescribed Drug Tramadol (no code) [facility] 4 [facility] (61162) laboratory on 2019-09-05 Amphetamines Ql Negative (N) [facility] (U) [facility] (80223) Barbiturates Ql Negative (N) [facility] (U) [facility] (70295) Benzodiazepines Negative (N) [facility] Ql (U) [facility] (44989) Benzoylecgonine Negative (N) [facility] Ql (U) [facility] (57422) Creatinine (U) 142.7 mg/dL (N) [facility] [Mass/Vol] [facility] (05551) Drug screen INCONSISTENT (A) [facility] comment (U) [facility] [Interp] [facility] (09527) Drug screen CONSISTENT (N) [facility] comment (U) [facility] [Inter] [facility] (27667) INR Coag (PPP) 2.7~3.3 (no code) [facility] [Relative time] [facility] (77380) Methadone Ql (U) Negative (N) [facility] (32046[facility] Nortramadol (U) Negative (N) [facility] [Mass/Vol] [facility] (40093) Opiates Ql (U) Negative (N) [facility] (42759) Oxidants Ql (U) Negative (N) [facility] (98507) Oxycodone Ql (U) Negative (N) [facility] (27531[facility] pH (U) 6.1 [pH] (N) 4.6 - 8 [pH] [facility] (55771) Phencyclidine Ql Negative (N) [facility] (U) [facility] (23168) Tetrahydrocannab Negative (N) [facility] lt inol Ql (U) [facility] (93968) Tramadol (U) Negative (N) [facility] [Mass/Vol] [facility] (23935) not yet categorized on 2019-06-22 Any Rx 12/2019~No~Cold (no code) [facility] medications, OTC medicine [facility] medications, or [facility] herbal products (45313) changes since last visit? Lot # [id number] (no code) [facility] (94035) laboratory on 2019-06-22 INR Coag (PPP) 3.0~2.6 (no code) [facility] [Relative time] [facility] (92338) not yet categorized on 2019-05-12 Any Rx 12/2019~No~No (no code) [facility], or [facility] herbal products (20019) changes since last visit? Lot # [id number] (no code) [facility] (31282) laboratory on 2019-05-12 INR Coag (PPP) 2.6~2.5 (no code) [facility] [Relative time] [facility] (28482) not yet categorized on 2019-04-07 Any Rx 12/2019~No~No (no code) [facility] medications, [facility]TC [facility] medications, or [facility] herbal products (64206) changes since last visit? Lot # [id number] (no code) [facility] (43083) laboratory on 2019-04-07 INR Coag (PPP) 2.5~1.7 (no code) [facility] [Relative time] [facility] (66388) not yet categorized on 2019-03-23 Any Rx 12/2019~No~No (no code) [facility] medications, [facility] medications[facility] or [facility] herbal products (71838) changes since last visit? Lot # [id number] (no code) [facility] (53048) laboratory on 2019-03-23 INR Coag (PPP) 1.7~2.1 (no code) [facility] [Relative time] [facility] (09150) not yet categorized on 2019-02-21 Any Rx 12/2019~no~no (no code) [facility], [facility]TC [facility] medications, or [facility] herbal products (40194) changes since last visit? Lot # [id number] (no code) [facility] (90364) laboratory on 2019-02-21 INR Coag (PPP) 2.1~1.6 (no code) [facility] [Relative time] [facility] (66519) not yet categorized on 2019-02-14 COMMENT no information (no code) [facility] [place] (64548) Exp date 10/2020 (no code) [facility] (31090) Lot 11.6~8.3~0993 (no code) [facility] (98711) Prescribed Drug Tramadol (no code) [facility] 1 [facility] () laboratory on 2019-02-14 Albumin 3.8 g/dL (N) 3.4 - 5.4 g/dL [facility] [Mass/Vol] [facility] (51134) Albumin/Globulin 1.1 {ratio} (N) 1 - 2.5 {ratio} Comm [facility] [Mass ratio] [facility] (94798) ALP [Catalytic 101 U/L (N) 44 - 147 U/L [facility] activity/Vol] [facility] (14798) ALT [Catalytic 15 U/L (N) 4 - 40 U/L Community ealth activity/Vol] [facility] (08157) Amphetamines Ql Negative (no code) [facility] (U) [facility] (51981) AST [Catalytic 20 U/L (N) 10 - 34 U/L [facility] activity/Vol] [facility] (92686) Barbiturates Ql Negative (no code) [facility] (U) [facility] (27363) Benzodiazepines Negative (no code) [facility] Ql (U) [facility] (96698) Benzoylecgonine Negative (no code) [facility] Ql (U) [facility] (29137) Bilirubin 1.0 mg/dL (N) 0.1 - 1.2 mg/dL [facility] [Mass/Vol] [facility] (88149) Calcium 9.3 mg/dL (N) 8.5 - 10.2 mg/dL [facility] [Mass/Vol] [facility] (48342) Chloride 96 mmol/L (L) 95 - 106 mmol/L [facility] [Moles/Vol] [facility] ([id number]) Cholesterol 139 mg/dL (N) 180 - 200 mg/dL [facility] [Mass/Vol] [facility] (66995) Cholesterol in 47 mg/dL (L) [facility] HDL [Mass/Vol] [facility] (05906) Cholesterol in 71 mg/dL (N) 0 - 100 mg/dL [facility] LDL [Mass/Vol] [facility] (86127) Cholesterol non 92 mg/dL (N) [facility] HDL [Mass/Vol] [facility] (65397) Cholesterol.tota 3.0 {ratio} (N) Count includes the [facility] l/Cholesterol in [facility] HDL [Mass ratio] [facility] ([id number]) CO2 [Moles/Vol] 32 mmol/L (N) 23 - 29 mmol/L [facility] ([id number]) Creatinine (U) 121.0 mg/dL (no code) [facility] [Mass/Vol] [facility] (42806) Creatinine 0.96 mg/dL (N) Critical access hospital [Mass/Vol] [facility] ([id number]) Drug screen CONSISTENT (no code) Critical access hospital comment (U) [facility] [Interp] [facility] ([id number]) GFR/1.73 sq M 71 (N) 90 - 120 [facility] predicted among mL/min/{1.73_m2} mL/min/{1.73_m2} [facility] MDRD [facility] (S/P/Bld) [Vol (72095) rate/Area] GFR/1.73 sq 62 (N) 90 - 120 [facility] M.predicted MDRD mL/min/{1.73_m2} mL/min/{1.73_m2} [facility] (S/P/Bld) [Vol [facility] rate/Area] ([id number]) Globulin (S) 3.5 g/dL (N) 2 - 3.5 g/dL [facility]alth [Mass/Vol] [facility] (99285) Glucose 282 mg/dL (H) 60 - 125 mg/dL [facility] [Mass/Vol] [facility] (46103) Methadone Ql (U) Negative (no code) [facility]265[facility] Opiates Ql (U) Negative (no code) [facility] (06564) Oxidants Ql (U) Negative (no code) [facility] (95652) Oxycodone Ql (U) Negative (no code) [facility] (18063) pH (U) 7.64 [pH] (no code) 4.6 - 8 [pH] [facility] (37759) Phencyclidine Ql Negative (no code) [facility] lt (U) [facility] () Potassium 4.6 mmol/L (N) 3.7 - 5.2 mmol/L [facility] [Moles/Vol] [facility] () Protein 7.3 g/dL (N) 6.4 - 8.3 g/dL [facility] [Mass/Vol] [facility] () Sodium 136 mmol/L (N) 135 - 145 mmol/L [facility] [Moles/Vol] [facility] (83424) Tetrahydrocannab Negative (no code) Count includes the [facility] inol Ql (U) [facility] (35128) Triglyceride 124 mg/dL (N) 0 - 150 mg/dL [facility] [Mass/Vol] [facility] () TSH Qn 3.23 m[IU]/L (N) 0.4 - 4 m[IU]/L [facility] (56755) Urea nitrogen 17 mg/dL (N) 7 - 20 mg/dL [facility] [Mass/Vol] [facility] () Urea NOT APPLICABLE (no code) Critical access hospital nitrogen/Creatin [facility] [Mass ratio] [facility] (49339) other on 2019-02-07 CURRENT COUMADIN 3mg 5 days a wk (no code) [facility] alth DOSE [facility] (48161) Lot # [id number] (no code) [facility]54481[facility] panel on 2019-02-07 Protein 07 January (no code) [facility]~No~No [facility] (20391) hematology on 2019-02-07 INR Coag (PPP) 1.6~4.8 (no code) [facility] [[facility]] [facility] (44134) not yet categorized on 2019-01-25 Exp date 12/2019 (no code) [facility] ([id number]) Lot # [id number] (no code) [facility] ([id number]) laboratory on 2019-01-25 INR Coag (PPP) 4.8~1.2 (no code) [facility] [Relative time] [facility] (33234) not yet categorized on 2019-01-14 Any Rx 12/2019~no~no (no code) Critical access hospital medications, OTC [facility] medications, or [facility] herbal products (20580) changes since last visit? CURRENT COUMADIN 3 mg daily (no code) [facility] DOSE [facility] (36060) Lot # [id number] (no code) [facility] (47927) laboratory on 2019-01-14 INR Coag (PPP) 1.2~1.1 (no code) [facility] [Relative time] [facility] (96328) not yet categorized on 2019-01-12 Exp date 12/2019 (no code) [facility] ([id number]) Lot # [id number] (no code) [facility] ([id number]) laboratory on 2019-01-12 INR Coag (PPP) 1.1~2.2 (no code) [facility] [Relative time] [facility] (53323) other on 2018-07-02 CURRENT COUMADIN 3mg qd (no code) [facility] DOSE [facility] (01268) Exp date 07/2019 (no code) [facility] ([id number]) Lot # [id number] (no code) [facility] (10575) hematology on 2018-07-02 INR Coag (PPP) 2.2~1.3 (no code) Critical access hospital [Relative time] [facility] (90102) other on 2018-05-26 CURRENT COUMADIN 3 mg qd (no code) [facility] (49608) Exp date 09/24/18 (no code) [facility] ([id number]) Lot # [id number] (no code) [facility] (46207) hematology on 2018-05-26 INR Coag (PPP) 1.3~4.5 (no code) Critical access hospital [Relative time] [facility] (95625) other on 2018-04-22 CURRENT COUMADIN 5 mg qd (no code) Count includes the [facility] DOSE [facility] (48361) Exp date 07 Jan 2019 (no code) [facility] ([id number]) Lot # [id number] (no code) [facility] ([id number]) inr (in house) on 2018-04-22 INR Coag RelTime 4.6 {INR} (no code) 0.9 - 1.1 {INR} 04-22-2018 [facility] (PPP) 13:00-0400 [facility] (99134) INR Coag RelTime 2.1 {INR} (no code) 0.9 - 1.1 {INR} 04-22-2018 [facility] (PPP) 13:00-0400 [facility] (43090) INR (IN HOUSE) 5 mg qd (no code) 04-22-2018 [facility]alt 13:00-0400 [facility] (79610) INR (IN HOUSE) [id number] (no code) 04-22-2018 [facility] 13:00-0400 [facility] (97197) INR (IN HOUSE) 07 Jan 2019 (no code) 04-22-2018 [facility] 13:00-0400 [facility] (19091) hematology on 2018-04-22 INR Coag RelTime 4.6~2.1 (no code) Count includes the [facility] ([facility]) [facility] (71306) other on 2017-10-08 Exp date 06/2018 (no code) [facility] ([id number]) Lot # [id number] (no code) [facility] (97719) hematology on 2017-10-08 INR Coag RelTime 2.7~2.0 (no code) Count includes the [facility] ([facility]) [facility] (89240) hematology on 2016-11-16 Hematocrit (Bld) 36.3 % (no code) 36.1 - 50.3 % 11-16-2016 N ot Available [Volume 08:00-0400 (07235) fraction] Hemoglobin (Bld) 11.6 g/dL (L) 12.1 - 17.2 g/dL 11-16-2016 Not Available [Mass/Vol] 08:00-0400 (84631) hematology on 2016-11-15 Hematocrit (Bld) 36.3 % (no code) 36.1 - 50.3 % 11-15-2016 N ot Available [Volume 08:00-0400 (48348) fraction] Hemoglobin (Bld) 11.5 g/dL (L) 12.1 - 17.2 g/dL 11-15-2016 Not Available [Mass/Vol] 08:00-0400 (82843) other on 2016-11-14 Albumin BCG dye 3.2 (L) 11-14-2016 Not Availa ble [Mass/Vol] 06:25-0400 (00866) Erythrocyte 12.2 % (no code) 11.6 - 14.6 % 11-14-2016 Not Av ailable distribution 06:25-0400 (49220) width (RBC) [Ratio] GFR/1.73 sq 71 (no code) 90 - 120 11-14-2016 Not Availa ble M.predicted MDRD mL/min/{1.73_m2} mL/min/{1.73_m2} 06:25-0400 (61234) (S/P/Bld) [Vol rate/Area] Globulin (S) 2.9 g/dL (no code) 2 - 3.5 g/dL 11-14-2016 Not Av ailable [Mass/Vol] 06: (14097) HCO3 (P) 25 (no code) 11-14-2016 Not Available [Moles/Vol] 06: (18597) MCHC (RBC) 32.4 g/dL (no code) 32 - 36 g/dL 11-14-2016 Not Avai lable [Mass/Vol] 06: (03048) Osmolality Calc 288 (no code) 11-14-2016 Not Availa ble [Osmolality] 06: (46529) Platelet mean 10.6 fL (H) 7.2 - 11.7 fL 11-14-2016 Not Available volume (Bld) 06: (50209) [Entitic vol] metabolic panel on 2016-11-14 ALP [Catalytic 77 U/L (no code) 44 - 147 U/L 11-14-2016 Not Available activity/Vol] 06: (57967) ALT [Catalytic 11 U/L (no code) 4 - 40 U/L 11-14-2016 Not Av ailable activity/Vol] 06: (90282) Anion gap 15 mmol/L (H) 3 - 11 mmol/L 11-14-2016 Not Avai lable [Moles/Vol] 06: (86364) AST [Catalytic 16 U/L (no code) 10 - 34 U/L 11-14-2016 Not A vailable activity/Vol] 06: (32037) Bilirubin 1.3 mg/dL (H) 0.1 - 1.2 mg/dL 11-14-2016 Not Av ailable [Mass/Vol] 06: (28053) Calcium 9.0 mg/dL (no code) 8.5 - 10.2 mg/dL 11-14-2016 Not A vailable [Mass/Vol] 06: (80432) Chloride 103 mmol/L (no code) 95 - 106 mmol/L 11-14-2016 Not A vailable [Moles/Vol] 06: (74116) Creatinine 0.81 mg/dL (no code) 11-14-2016 Not Available [Mass/Vol] 06:25-0400 (33376) Glucose 130 mg/dL (H) 60 - 125 mg/dL 11-14-2016 Not Belem ilable [Mass/Vol] 06:25040 (02388) Potassium 4.5 mmol/L (no code) 3.7 - 5.2 mmol/L 11-14-2016 Not Available [Moles/Vol] 06:25040 (50142) Protein 6.1 g/dL (no code) 6.4 - 8.3 g/dL 11-14-2016 Not Belem ilable [Mass/Vol] 06:25040 (91977) Sodium 138 mmol/L (no code) 135 - 145 mmol/L 11-14-2016 Not Available [Moles/Vol] 06:25040 (04862) Urea nitrogen 16 mg/dL (no code) 7 - 20 mg/dL 11-14-2016 Not A vailable [Mass/Vol] 06:25040 (93197) hematology on 2016-11-14 Basophils (Bld) 0.0 10*3/uL (no code) 0 - 0.3 10*3/uL 11-14-2016 Not Available [#/Vol] 06:25-0400 (64979) Basophils/100 0.10 % (no code) 0.5 - 1 % 11-14-2016 Not Avai lable WBC (Bld) 06:25040 (63718) Eosinophils 0.0 10*3/uL (no code) 0.05 - 0.5 11-14-2016 Not Belem ilable (Bld) [#/Vol] 10*3/uL 06:250400 (09781) Eosinophils/100 0.4 % (no code) 1 - 4 % 11-14-2016 Not Av ailable WBC (Bld) 06:040 (26221) Hematocrit (Bld) 34.9 % (L) 36.1 - 50.3 % 11-14-2016 N ot Available [Volume 06: (33789) fraction] Hemoglobin (Bld) 11.3 g/dL (L) 12.1 - 17.2 g/dL 11-14-2016 Not Available [Mass/Vol] 06:25-0400 (20314) Lymphocytes 1.32 10*3/uL (no code) 0.9 - 2.9 11-14-2016 Not Belem ilable (Bld) [#/Vol] 10*3/uL 06:25-0400 (75580) Lymphocytes/100 12.1 % (no code) 20 - 40 % 11-14-2016 Not Av ailable WBC (Bld) 06:25-0400 (59725) MCH (RBC) 31.7 pg (H) 27 - 31 pg 11-14-2016 Not Availab le [Entitic mass] 06:250400 (24774) MCV (RBC) 98.0 fL (H) 80 - 100 fL 11-14-2016 Not Availa ble [Entitic vol] 06:250400 (47447) Monocytes (Bld) 1.2 10*3/uL (H) 0.3 - 0.9 11-14-2016 Not Available [#/Vol] 10*3/uL 06:250400 (04947) Monocytes/100 10.7 % (no code) 2 - 8 % 11-14-2016 Not Avai lable WBC (Bld) 06:25-0400 (41720) Neutrophils 8.35 10*3/uL (H) 1.7 - 7 10*3/uL 11-14-2016 N ot Available (Bld) [#/Vol] 06:25-0400 (49986) Neutrophils/100 76.7 % (no code) 40 - 60 % 11-14-2016 Not Av ailable WBC (Bld) 06:250400 (05674) Platelets (Bld) 197 10*3/uL (no code) 150 - 450 11-14-2016 Not Available [#/Vol] 10*3/uL 06:25-0400 (77550) RBC (Bld) 3.56 10*6/uL (L) 4.2 - 6.1 11-14-2016 Not Avail able [#/Vol] 10*6/uL 06:25-0400 (10349) WBC (Bld) 10.88 10*3/uL (H) 3.5 - 10.5 11-14-2016 Not Belem ilable [#/Vol] 10*3/uL 06:25-0400 (04639) other on 2016-11-13 ABO and Rh group Positive (no code) 11-13-2016 Not Avail able Nom (BldC) 08:00-0400 (43108) CULTURE SOURCE new cath (no code) 11-13-2016 Not Availab le insertion 08:58-0400 (44581) FINAL CULTURE Negative (no code) 11-13-2016 Not Availabl e RESULTS 08:32-0400 (28024) FINAL CULTURE No Growth 48 (no code) 11-13-2016 Not Availab le RESULTS hours 08:58-0400 (86456) INR Coag 1.2 (no code) 11-13-2016 Not Available (Platelet poor 08:00-0400 (94842) plasma or blood) [Relative time] Major crossmatch COMPATIBLE X 2 (no code) 11-13-2016 Not Av ailable [Interp] 08:00-0400 (27874) MEDIA PLATED Setup at 08:10 (no code) 11-13-2016 Not Availa ble on 11/13/2016 08:32-0400 ([id number]) MEDIA PLATED Setup at 13:17 (no code) 11-13-2016 Not Availa ble on 11/13/2016 08:58-0400 (14345) PRELIM CULTURE No Growth 24 (no code) 11-13-2016 Not Availa ble RESULTS hours 08:58-0400 (60256) hematology on 2016-11-13 Blood group Negative (no code) 11-13-2016 Not Available antibody screen 08:00-0400 (96893) Ql Hematocrit (Bld) 43.6 % (no code) 36.1 - 50.3 % 11-13-2016 N ot Available [Volume 08:00-0400 (41735) fraction] Hemoglobin (Bld) 14.3 g/dL (no code) 12.1 - 17.2 g/dL 11-13-2016 Not Available [Mass/Vol] 08:00-0400 (16615) PT Coag (PPP) 13.5 (H) 11-13-2016 Not Availabl e [Time] 08:00-0400 (81209) urinalysis on 2016-11-04 Clarity (U) Clear (no code) 11-04-2016 Not Available 13:54-0400 (78704) Color (U) Yellow (no code) 11-04-2016 Not Available 13:54-0400 (43199) Epithelial 10-20/HPF (A) 11-04-2016 Not Available cells.squamous 13:54-0400 (53198) LM.HPF (Urine sed) [#/Area] Leukocyte Negative (no code) 11-04-2016 Not Available esterase Test 13:54-0400 (67828) strip Ql (U) Protein (U) Negative (no code) 0 - 20 mg/dL 11-04-2016 Not Belem ilable [Mass/Vol] 13:54-0400 (81539) RBC LM.HPF Negative (no code) 0 - 4 /[HPF] 11-04-2016 Not Avai lable (Urine sed) 13:54-0400 (17833) [#/Area] Specific gravity 1.015 (no code) 11-04-2016 Not Avail able (U) [Rel 13:54-0400 (58638) density] WBC LM.HPF Negative (no code) 0 - 5 /[HPF] 11-04-2016 Not Avai lable (Urine sed) 13:54-0400 (59768) [#/Area] other on 2016-11-04 Albumin BCG dye 3.9 (no code) 11-04-2016 Not Availa ble [Mass/Vol] 13:54-0400 (09231) Bacteria LM Ql Negative (no code) 11-04-2016 Not Availab le (Urine sed) 13:54-0400 (73568) Bilirubin N/A (A) 11-04-2016 Not Available Confirm Ql (U) 13:54-0400 (36036) Bilirubin Ql (U) Negative (no code) 11-04-2016 Not Avail able 13:54-0400 ([id number]) Electrocardiogra Complete (no code) 11-04-2016 Not Avail able ms recorded 13:54-0400 (50000) Erythrocyte 12.7 % (no code) 11.6 - 14.6 % 11-04-2016 Not Av ailable distribution 13:54-0400 (51841) width (RBC) [Ratio] GFR/1.73 sq 49 (L) 90 - 120 11-04-2016 Not Availa ble M.predicted MDRD mL/min/{1.73_m2} mL/min/{1.73_m2} 13:54-0400 (07939) (S/P/Bld) [Vol rate/Area] Globulin (S) 3.9 g/dL (H) 2 - 3.5 g/dL 11-04-2016 Not Av ailable [Mass/Vol] 13:54-0400 (48368) Glucose Test Negative (no code) 11-04-2016 Not Available strip (U) 13:54-0400 (10981) [Mass/Vol] HCO3 (P) 23 (no code) 11-04-2016 Not Available [Moles/Vol] 13:54-0400 (51869) Hemoglobin Ql Negative (no code) 11-04-2016 Not Availabl e (U) 13:54-0400 (09471) Ketones (U) Negative (no code) 11-04-2016 Not Available [Mass/Vol] 13:54-0400 (61146) MCHC (RBC) 32.0 g/dL (no code) 32 - 36 g/dL 11-04-2016 Not Avai lable [Mass/Vol] 13:54-0400 (90117) Mucus Ql (Urine 3+ (A) 11-04-2016 Not Availa ble sed) 13:54-0400 (74077) Nitrite Ql (U) Negative (no code) 11-04-2016 Not Availab le 13:54-0400 (13333) Osmolality Calc 295 (no code) 11-04-2016 Not Availa ble [Osmolality] 13:54-0400 (50925) pH (U) 5.0 [pH] (no code) 4.6 - 8 [pH] 11-04-2016 Not Avail able 13:54-0400 (82348) Platelet mean 10.2 fL (H) 7.2 - 11.7 fL 11-04-2016 Not Available volume (Bld) 13:54-0400 (30463) [Entitic vol] Urine Volume Urine Volume (no code) 11-04-2016 Not Availabl e Sufficient 13:54-0400 (26010) (10mL) Urobilinogen Qn 0.2 (A) 11-04-2016 Not Availa ble (U) {Josefa'U}/dL 13:54-0400 (27897) Yeast.budding Ql No Yeast present (no code) 11-04-2016 Not Available (Urine sed) 13: (00772) no information Urine Saved if (A) 11-04-2016 Not Avai lable Culture Needed 13: (38748) (48hrs from time of collection) metabolic panel on 2016-11-04 ALP [Catalytic 102 U/L (no code) 44 - 147 U/L 11-04-2016 Not Available activity/Vol] 13: (32354) ALT [Catalytic 13 U/L (no code) 4 - 40 U/L 11-04-2016 Not Av ailable activity/Vol] 13: (61915) Anion gap 19 mmol/L (H) 3 - 11 mmol/L 11-04-2016 Not Avai lable [Moles/Vol] 13: (74050) AST [Catalytic 16 U/L (no code) 10 - 34 U/L 11-04-2016 Not A vailable activity/Vol] 13: (68996) Bilirubin 0.9 mg/dL (no code) 0.1 - 1.2 mg/dL 11-04-2016 Not Av ailable [Mass/Vol] 13: (31338) Calcium 9.3 mg/dL (no code) 8.5 - 10.2 mg/dL 11-04-2016 Not A vailable [Mass/Vol] 13: (12764) Chloride 103 mmol/L (no code) 95 - 106 mmol/L 11-04-2016 Not A vailable [Moles/Vol] 13: (29821) Creatinine 1.12 mg/dL (no code) 11-04-2016 Not Available [Mass/Vol] 13: (75469) Glucose 101 mg/dL (no code) 60 - 125 mg/dL 11-04-2016 Not Belem ilable [Mass/Vol] 13: (13520) Potassium 3.8 mmol/L (no code) 3.7 - 5.2 mmol/L 11-04-2016 Not Available [Moles/Vol] 13: (45491) Protein 7.8 g/dL (no code) 6.4 - 8.3 g/dL 11-04-2016 Not Belem ilable [Mass/Vol] 13:54-0400 (43724) Sodium 141 mmol/L (no code) 135 - 145 mmol/L 11-04-2016 Not Available [Moles/Vol] 13:54-0400 (68459) Urea nitrogen 24 mg/dL (no code) 7 - 20 mg/dL 11-04-2016 Not A vailable [Mass/Vol] 13:54-0400 (96094) hematology on 2016-11-04 Basophils (Bld) 0.0 10*3/uL (no code) 0 - 0.3 10*3/uL 11-04-2016 Not Available [#/Vol] 13:54-0400 (60325) Basophils/100 0.10 % (no code) 0.5 - 1 % 11-04-2016 Not Avai lable WBC (Bld) 13:540400 (70469) Eosinophils 0.4 10*3/uL (no code) 0.05 - 0.5 11-04-2016 Not Belem ilable (Bld) [#/Vol] 10*3/uL 13:54-0400 (51396) Eosinophils/100 3.3 % (no code) 1 - 4 % 11-04-2016 Not Av ailable WBC (Bld) 13:54-0400 (51079) Hematocrit (Bld) 44.1 % (no code) 36.1 - 50.3 % 11-04-2016 N ot Available [Volume 13:54-0400 (61136) fraction] Hemoglobin (Bld) 14.1 g/dL (no code) 12.1 - 17.2 g/dL 11-04-2016 Not Available [Mass/Vol] 13:54-0400 (51717) Lymphocytes 2.52 10*3/uL (no code) 0.9 - 2.9 11-04-2016 Not Belem ilable (Bld) [#/Vol] 10*3/uL 13:54-0400 (08779) Lymphocytes/100 23.2 % (no code) 20 - 40 % 11-04-2016 Not Av ailable WBC (Bld) 13:54-0400 (58205) MCH (RBC) 31.8 pg (H) 27 - 31 pg 11-04-2016 Not Availab le [Entitic mass] 13:54-0400 (15089) MCV (RBC) 99.3 fL (H) 80 - 100 fL 11-04-2016 Not Availa ble [Entitic vol] 13:54-0400 (40127) Monocytes (Bld) 1.0 10*3/uL (H) 0.3 - 0.9 11-04-2016 Not Available [#/Vol] 10*3/uL 13:54-0400 (51063) Monocytes/100 9.2 % (no code) 2 - 8 % 11-04-2016 Not Avai lable WBC (Bld) 13:54-0400 (87625) Neutrophils 6.97 10*3/uL (H) 1.7 - 7 10*3/uL 11-04-2016 N ot Available (Bld) [#/Vol] 13:54-0400 (51578) Neutrophils/100 64.2 % (no code) 40 - 60 % 11-04-2016 Not Av ailable WBC (Bld) 13:54-0400 (29186) Platelets (Bld) 264 10*3/uL (no code) 150 - 450 11-04-2016 Not Available [#/Vol] 10*3/uL 13:54-0400 (81370) RBC (Bld) 4.44 10*6/uL (no code) 4.2 - 6.1 11-04-2016 Not Avail able [#/Vol] 10*6/uL 13:54-0400 (73954) WBC (Bld) 10.86 10*3/uL (H) 3.5 - 10.5 11-04-2016 Not Belem ilable [#/Vol] 10*3/uL 13:54-0400 (81746) Vital Signs Vital Sign Value Interpretation Reference Date Time Care Prov ider Facility (Normalized) (Normalized) Range BMI (Body Mass 47.04 kg/m2 (no code) 15 - 25 kg/m2 05-12-2018 Hai RODRIGUEZ [facility] Index) 11:20-0400 [id number] [facility] (90886) Body height 162.56 cm (no code) cm 10-04-2013 [facility]A NORMAN [facility] 09:45-0500 96368 [facility] ([id number]) Body height 162.56 cm (no code) cm 12-14-2012 [facility] 14:220400 33486 [facility] (69053) Body 98.2 [degF] (no code) 97.8 - 99.0 05-12-2018 [facility] Temperature [degF] 11:200400 82101 [facility] ([id number]) Body 98.5 [degF] (no code) 97.8 - 99.0 10-04-2013 [facility] temperature [degF] 09:45-[id number] [place] [address] (90716) Body 97.8 [degF] (no code) 97.8 - 99.0 12-14-2012 [facility] temperature [degF] 14:220400 [address] [place] [address] (97456) Body weight 122.27 kg (no code) kg 10-04-2013 [facility] 09:45-[address] [place] [address] ([id number]) Body weight 125.81 kg (no code) kg 12-14-2012 [facility] 14:220400 [address] [place] [address] (72564) Height 162.56 cm (no code) cm 05-12-2018 [facility] 11:200400 [id number] [place] [address] (45785) Weight 124.33 kg (no code) kg 05-12-2018 [facility] 11:200400 [address] [place] [address] ([id number]) Interventions No Information Plan of Treatment Normalized Care Care Detail Care Activity Date Care Provider F acility Activity no information no information no information [address] ([id number]) Goals No Information Social History The data below is from unstructured sources History Response Recorde d Date/Time Hx Family Cancer Y LIVER CANCER 03/08/13 2:18am Hx Family Colorectal Cancer Y 03/08/13 2:18am Hx Family Cardiac Disorders Y 03/08/13 2:18am Hx Family Hypertension Y 03/08/13 2:18am History Response Recorde d Date/Time Alcohol Use Denies Use 0 03/08/13 2:18am Recreational Drug Use N 03/07/13 11:42pm Recent Infectious Disease Exposure N 03/08/13 6:00am Functional Status No Information Mental Status No Information Encounters Encounter Normalized Encounter Encounter Diagnosis Care Provi adelfo Organization Date Type 01-13-2020 Emergency department no information PAULINE GUPTA MD (no [facility] - patient visit phone) [facility] 01-13-2020 (no phone) 11-13-2016 Evaluation and no information no name no organ ization name - management of 11-18-2016 inpatient 08-07-2016 Evaluation and no information no name no organ ization name - management of 08-12-2016 inpatient 04-22-2018 Patient encounter no information no name no or ganization name 12-07-2017 Patient encounter no information no name no or ganization name 10-08-2017 Patient encounter no information no name no or ganization name NEGATED Patient encounter no information no name no or ganization name 11-28-2016 07-08-2015 Patient encounter no information no name no or ganization name NEGATED Patient encounter no information no name no or ganization name 07-19-2014 NEGATED Patient encounter no information no name no or ganization name 07-13-2014 NEGATED Patient encounter no information no name no or ganization name 07-10-2014 NEGATED Patient encounter no information no name no or ganization name 02-08-2014 NEGATED Patient encounter no information no name no or ganization name 07-18-2013 NEGATED Patient encounter no information no name no or ganization name 06-06-2013 NEGATED Patient encounter no information no name no or ganization name 10-18-2008 Patient encounter no information no name no organizat ion name 01-23-2020 Patient encounter no information Cathi Leonard (no [facility] procedure phone) PERRY BOYD [facility] (no 01-23-2020 (no phone) phone) 01-17-2020 Patient encounter no information ANGEL CAMARENA (no phon e) [facility] - procedure of [facility] (no 01-17-2020 phone) 01-16-2020 Patient encounter no information GEORGINA RODRIGUEZ ( no [facility]) [facility] (no phone) 01-11-2020 Patient encounter no information (no phone) [facility] procedure [facility] (no phone) 12-21-2019 Patient encounter no information (no phone) [facility] procedure [facility] (no phone) 12-13-2019 Patient encounter no information (no phone) [facility] procedure [facility] (no phone) 10-12-2019 Patient encounter no information (no phone) [facility] procedure [facility] (no phone) 09-05-2019 Patient encounter no information no name no or ganization name procedure 08-12-2019 Patient encounter no information no name no or ganization name procedure 06-22-2019 Patient encounter no information no name no or ganization name procedure 05-12-2019 Patient encounter no information no name no or ganization name procedure 04-07-2019 Patient encounter no information no name no or ganization name procedure 03-23-2019 Patient encounter no information no name no or ganization name procedure 03-16-2019 Patient encounter no information no name no or ganization name procedure 02-21-2019 Patient encounter no information no name no or ganization name procedure 02-14-2019 Patient encounter no information no name no or ganization name procedure 02-07-2019 Patient encounter no information no name no or ganization name procedure 01-25-2019 Patient encounter no information no name no or ganization name procedure 01-25-2019 Patient encounter no information no name no or ganization name procedure 01-14-2019 Patient encounter no information no name no or ganization name procedure 01-14-2019 Patient encounter no information no name no or ganization name procedure 01-12-2019 Patient encounter no information no name no or ganization name procedure 01-12-2019 Patient encounter no information no name no or ganization name procedure 09-15-2018 Patient encounter no information no name no or ganization name procedure 09-13-2018 Patient encounter no information no name no or ganization name procedure 08-12-2018 Patient encounter no information no name no or ganization name procedure 07-02-2018 Patient encounter no information no name no or ganization name procedure 05-26-2018 Patient encounter no information no name no or ganization name procedure 02-13-2017 Patient encounter no information no name no or ganization name procedure 12-26-2016 Patient encounter no information no name no or ganization name - procedure 12-27-2016 11-04-2016 Patient encounter no information no name no or ganization name - procedure 11-05-2016 09-17-2016 Patient encounter no information no name no or ganization name - procedure 08-12-2017 04-06-2009 Patient encounter no information no name no or ganization name procedure 05-14-2018 Telephone encounter Unspecified GEORGINA RODIRGUEZ (no [facility] - osteoarthritis, phone) (no phone) 05-14-2018 unspecified site - 05-14-2018 Medical Equipment No Information Payers Normalized Payer Value Medicare no information Summary Purpose eClinicalWorks SubmissioneClinicalWorks SubmissioneClinicalWorks SubmissioneClinicalWorks SubmissioneClinicalWorks SubmissioneClinicalWorks SubmissioneClinicalWorks SubmissioneClinicalWorks SubmissioneClinicalWorks SubmissioneClinicalWorks SubmissioneClinicalWorks Submission Advance Directives Directive Response Recor ded Date Advance Directives N 2:18am Organ Donor Y 03/08/13 2 :18am Additional Source Comments This clinical document has been generated using Meta[employer] software that has been certified by the Office of the National Coordinator for Health Information Technology (ONC 15.99.04.3023.Diam.31.00.0.033336) and the National Committee for Quantitative Developer (NCQA, as an eMeasure certified technology). FOR RECORDS PERTAINING TO PATIENTS WHO ARE OR HAVE BEEN ENROLLED IN A CHEMICAL D EPENDENCY/SUBSTANCE ABUSE PROGRAM, SOME INFORMATION MAY BE OMITTED. This clinica l summary was aggregated from multiple sources. Caution should be exercised in using it in the provision of clinical care. This summary normalizes information from multiple sources, and as a consequence, information in this document may ma terially change the coding, format and clinical context of patient data. In chela tion, data may be omitted in some cases. CLINICAL DECISIONS SHOULD BE BASED ON T HE PRIMARY CLINICAL RECORDS. [employer] provides no warranty or guara ntee of the accuracy or completeness of information in this document.The followi ng information is based on time limited clinical information UNRECOGNIZED CONTENT PROVIDED BELOW FOR UNRECOGNIZED SECTION MEDICAL (GENERAL) HISTORY Type Description Date Medical History type 2 diabetes Medical History hypertension Medical History asthma/COPD Medical History arthritis Medical History hypothyroidism Surgical History hysterectomy Surgical History tubal ligation Surgical History thyroidectomy Surgical History cholecystectomy Surgical History appendectomy Surgical History total knee replacments 2015 and 2016 Hospitalization History bronchitis 2011 UNRECOGNIZED CONTENT PROVIDED BELOW FOR UNRECOGNIZED SECTION REASON FOR VISIT Controlled Med Refill 02/23/18Controlled Med Refill 03/23/18Controlled Med Refill 04/20/18Refill request/Lab OrderLab (walk-in)Requests return callDiabetes, wants to find out if insurance will cover help in home Mora Raygoza Med Refil l 05/18/18Controlled Med Refill 06/14/18Lab (walk-in)Controlled Med Refill 07/12 [id number] 11/03
--- OUTSIDE RECORDS SUMMARY | 2020-01-28 14:23 | XMS REPORT ---
Author Author Katarina RODRIGUEZ Organization [facility] Address [address] [place] [address] Care Team Providers Care Re Recording Mixer Name Role Phone GEORGINA RODRIGUEZ Unavailable PROBLEMS Type Condition ICD9-CM Code ESU47-WS Code Onset Dates Condition S tatus SNOMED Code Problem 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 M19.90 Active 70947 5006 Problem Chronic obstructive pulmonary disease, unspecified COPD ty pe J44.9 Active 54659946 Problem Acquired hypothyroidism E03.9 Active 772039485 Problem Cigarette nicotine dependence without complication F17.210 Active 17966212 Problem Diabetes E11.9 Active 706586768 Problem High risk medication use Z79.899 Activ e 280471882 Problem Urinary incontinence, unspecified type R32 Active 797085561 Problem halfway (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.01 Active 215842362 Problem Morbid obesity, unspecified obesity type E66.01 Active 149340287 Problem Other chronic pain G89.29 Active 8 3417763 Problem History of cataract surgery Z98.49 Ac tive 790342664 Problem Type 2 diabetes mellitus wit h hyperglycemia, without long-term current use of insulin E11.65 Active 29773781 Problem Encounter for immunization Z23 Act essie 214043661 Problem Irregular heart beats I49.9 Active 124461766 Problem Other urinary incontinence N39.498 Act essie 715217605 Problem Essential hypertension I10 Active 23557985 Problem Chronic atrial fibrillation I48.2 Ac tive 299295336 ALLERGIES No Information ENCOUNTERS Encounter Location Date Diagnosis [facility] [address] [facility] [id number] [address] [place] [phone] December, [facility] [address] [facility] [id number] [address] [place] [phone] Oct, [facility] [address] [facility] [id number] [address] [place] [address] Oct, halfway (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 a 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 Z79.01 [facility] [address] [id number] [address] [place] [address] Oct, halfway (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 a 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 Z79.01 [facility] [address] [id number] [address] [place] [address] Sep, [facility] [address] [facility] [id number] [address] [place] [address] Aug, 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 M19.90 [place] [address] [facility] [id number] [address] [place] [address] Aug, Diabetes E11.9 ; 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 ; Tobacco abuse Z72.0 ; Low back pain M54.5 and Chronic atrial fibrillation I48.2 [place] [address] [id number] [address] [place] [address] Aug, Diabetes E11.9 [facility] [address] [id number] [address] [place] [phone] Aug, [facility] [address] [facility] [id number] [address] [place] [address] Aug, Acute non-recurrent pansinus itis J01.40 and Non- recurrent acute suppurative otitis media of left ear without spontaneous rupture of tympanic membrane H66.002 [place] [address] [facility] [id number] [address] [place] [address] Aug, [facility] [address] [id number] [address] [place] [phone] Aug, halfway (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 a 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 Z79.01 [place] [address] [facility] [id number] [address] [place] [address] Aug, halfway (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 a 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 Z79.01 [facility] [address] [facility] [id number] [address] [place] [address] Jul, 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 M19.90 [facility] [address] [id number] [address] [place] [address] Jul, 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 M19.90 [facility] [address] [id number] [address] [place] [address] Jun, [facility] [address] [id number] [address] [place] [address] Jun, Chronic atrial fibrillation I48.2 [facility] [address] [id number] [address] [place] [address] Jun, 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 M19.90 [facility] [address] [id number] [address] [place] [address] Jun, Chronic atrial fibrillation I48.2 [facility] [address] [id number] [address] [place] [address] May, 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 M19.90 [facility] [address] [id number] [address] [place] [address] May, Chronic atrial fibrillation I48.2 [facility] [address] [id number] [address] [place] [address] Apr, 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 M19.90 [facility] [address] [id number] [address] [place] [address] Mar, Chronic atrial fibrillation I48.2 [facility] [address] [id number] [address] [place] [address] Mar, Chronic atrial fibrillation I48.2 [facility] [address] [id number] [address] [place] [address] Mar, 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 M19.90 [facility] [address] [id number] [address] [place] [address] Mar, Chronic atrial fibrillation I48.2 [facility] [address] [id number] [address] [place] [address] Mar, Type 2 diabetes mellitus wit h hyperglycemia, without long-term current use of insulin E11.65 ; Chronic atrial fibrillation I48.2 and Morbid obesity E66.01 [facility] [address] [facility] [id number] [address] [place] [address] Feb, 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 M19.90 [facility] [address] [facility] [id number] [address] [place] [address] Feb, Chronic atrial fibrillation I48.2 [facility] [address] [facility] [id number] [address] [place] [address] Feb, Hyperglycemia R73.9 ; Diabet es E11.9 ; Morbid obesity E66.01 ; Acquired hypothyroidism E03.9 ; 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 M19.90 and High risk medication use Z79.899 [facility] [address] [facility] [id number] [address] [place] [address] Feb, Chronic atrial fibrillation I48.2 [place] [address] [facility] [id number] [address] [place] [address] Jan, 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 M19.90 [facility] [address] [facility] [id number] [address] [place] [address] Jan, Chronic atrial fibrillation I48.2 [facility] [address] [facility] [id number] [address] [place] [address] Jan, Chronic atrial fibrillation I48.2 [facility] [address] [facility] [id number] [address] [place] [address] Jan, Chronic atrial fibrillation I48.2 [facility] [address] [facility] [id number] [address] [place] [address] Jan, halfway (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 a 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 Z79.01 [facility] [address] [id number] [address] [place] [address] December, [facility] [address] [facility] [id number] [address] [place] [id number] December, [facility] [address] [facility] [id number] [address] [place] [address] December, 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 M19.90 [facility] [address] [id number] [address] [place] [address] Nov, [facility] [address] [facility] [id number] [address] [place] [address] Nov, 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 M19.90 [facility] [address] [facility] [id number] [address] [place] [address] Oct, 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 M19.90 [facility] [address] [id number] [address] [place] [address] Sep, 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 M19.90 [facility] [address] [facility] [id number] [address] [place] [address] Sep, 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 ; BMI 45.0-49.9, adult Z68.42 ; Diabetes E11.9 ; Chronic atrial fibrillation I48.2 and Chronic obstructive pulmonary disease, unspecified COPD type J44.9 [facility] [address] [facility] [id number] [address] [place] [address] Sep, Diabetes E11.9 ; halfway ( 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.01 ; Chronic atrial fibrillation I48.2 ; Chronic obstructive pulmonary disease, unspecified COPD type J44.9 and BMI 45.0-49.9, adult Z68.42 [facility] [address] [facility] [id number] [address] [place] [address] Aug, 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 M19.90 [facility] [address] [id number] [address] [place] [phone] Aug, [facility] [address] [facility] [id number] [address] [place] [address] Aug, halfway (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 a 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 Z79.01 ; BMI 45.0-49.9, adult Z68.42 ; Diabetes E11.9 and Chronic atrial fibrillation I48.2 [facility] [address] [id number] [address] [place] [address] Aug, [facility] [address] [id number] [address] [place] [address] Jul, 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 M19.90 [facility] [address] [facility] [id number] [address] [place] [address] Jun, 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 M19.90 [facility] [address] [facility] [id number] [address] [place] [address] Jun, 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 [facility] [address] [facility] [id number] [address] [place] [address] Jun, Chronic atrial fibrillation I48.2 and halfway (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.01 [place] [address] [facility] [id number] [address] [place] [address] Jun, 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 M19.90 [facility] [address] [facility] [id number] [address] [place] [address] May, Encounter for immunization Z 23 [facility] [address] [facility] [id number] [address] [place] [address] May, 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 [facility] [address] [facility] [id number] [address] [place] [address] May, 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 M19.90 [facility] [address] [facility] [id number] [address] [place] [address] May, [facility] [address] [facility] [id number] [address] [place] [address] May, Diabetes E11.9 ; 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 ; Chronic atrial fibrillation I48.2 ; BMI 45.0-49.9, adult Z68.42 ; 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 M19.90 ; Low back pain M54.5 and Other chronic pain G89.29 [facility] [address] [facility] [id number] [address] [place] [id number] 20 Apr, 2018 Chronic atrial fibrillation I48.2 [facility] [address] [id number] [address] [place] [phone] 13 Apr, 2018 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 [facility] [address] [id number] [address] [place] [id number] 07 Apr, 2018 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 M19.90 [facility] [address] [id number] [address] [place] [phone] 04 Apr, 2018 halfway (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 a 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 Z79.01 and Chronic atrial fibrillation I48.2 [facility] [address] [id number] [address] [place] [address] Mar, 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 M19.90 [facility] [address] [facility] [id number] [address] [place] [address] Feb, 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 M19.90 [facility] [address] [id number] [address] [place] [address] Jan, 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 M19.90 [facility] [address] [id number] [address] [place] [address] December, [facility] [address] [facility] [id number] [address] [place] [address] December, 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 M19.90 [facility] [address] [facility] [id number] [address] [place] [address] Nov, Diabetes E11.9 ; 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 ; Acquired hypothyroidism E03.9 ; Cigarette nicotine dependence without complication F17.210 ; 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 M19.90 ; BMI 45.0-49.9, adult Z68.42 and Chronic atrial fibrillation I48.2 [facility] [address] [facility] [id number] [address] [place] [address] Nov, 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 M19.90 [facility] [address] [facility] [id number] [address] [place] [address] Oct, 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 M19.90 [facility] [address] [facility] [id number] [address] [place] [phone] Oct, 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 [facility] [address] [id number] [address] [place] [phone] Sep, 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 M19.90 [facility] [address] [facility] [id number] [address] [place] [address] Sep, [facility] [address] [facility] [id number] [address] [place] [phone] Aug, 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 M19.90 [facility] [address] [facility] [id number] [address] [place] [address] Jul, 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 M19.90 [facility] [address] [facility] [id number] [address] [place] [address] Jul, 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 M19.90 [facility] [address] [facility] [id number] [address] [place] [address] Jun, Diabetes E11.9 ; Encounter f or immunization Z23 ; 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 ; Chronic atrial fibrillation I48.2 ; 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 M19.90 ; Tobacco abuse Z72.0 and Bug bite, initial encounter W57.XXXA [facility] [address] [facility] [id number] [address] [place] [address] May, 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 M19.90 [facility] [address] [facility] [id number] [address] [place] [address] Apr, 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 M19.90 [facility] [address] [facility] [id number] [address] [place] [address] Mar, Chronic atrial fibrillation I48.2 [facility] [address] [facility] [id number] [address] [place] [address] Mar, [facility] [address] [place] [id number] [address] [place] [address] Mar, 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 M19.90 [facility] [address] [id number] [address] [place] [address] Mar, halfway (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 a 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 Z79.01 and Chronic atrial fibrillation I48.2 [facility] [address] [id number] [address] [place] [address] Mar, Chronic atrial fibrillation I48.2 and 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 [facility] [address] [id number] [address] [place] [address] Mar, halfway (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 a 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 Z79.01 [place] [address] [id number] [address] [place] [address] Mar, 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 [place] [address] [id number] [address] [place] [address] Mar, 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 M19.90 [place] [address] [id number] [address] [place] [address] Feb, Encounter for screening mamm ogram for malignant neoplasm of breast Z12.31 [place] [address] [id number] [address] [place] [address] Feb, 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 M19.90 [place] [address] [id number] [address] [place] [address] Jan, [place] [address] [id number] [address] [place] [address] Jan, halfway (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 a 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 Z79.01 ; Diabetes E11.9 ; 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 M19.90 and Breast cancer screening Z12.39 [place] [address] [id number] [address] [place] [address] Jan, 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 M19.90 [place] [address] [facility] [id number] [address] [place] [address] Jan, 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 M19.90 [facility] [address] [id number] [address] [place] [address] Jan, [facility] [address] [facility] [id number] [address] [place] [address] December, 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 M19.90 [facility] [address] [facility] [id number] [address] [place] [address] December, 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 M19.90 [facility] [id number] [place] [id number] Nov, [facility] [address] [id number] [address] [place] [address] Nov, [facility] [address] [facility] [id number] [address] [place] [address] Nov, [facility] [address] [facility] [id number] [address] [place] [address] Nov, Diabetes E11.9 [facility] [address] [facility] [id number] [address] [place] [address] Nov, [facility] [address] [facility] [id number] [address] [place] [address] Oct, 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 M19.90 [facility] [address] [facility] [id number] [address] [place] [address] Oct, 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 M19.90 ; 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 ; Diabetes E11.9 ; Cigarette nicotine dependence without complication F17.210 and Chronic atrial fibrillation I48.2 [facility] [address] [id number] [address] [place] [phone] Aug, [facility] [address] [facility] [id number] [address] [place] [address] Aug, halfway (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 a 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 Z79.01 [facility] [address] [facility] [id number] [address] [place] [address] Aug, [facility] [address] [id number] [id number] Aug, [facility] [address] [place] [id number] [address] [place] [phone] Aug, [facility] [address] [facility] [id number] [address] [place] [address] Aug, [facility] [place] [id number] [id number] Aug, [facility] [address] [place] [id number] Aug 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 M19.90 and Essential hypertension I10 [place] [address] [address] Aug, Other urinary incontinence N 39.498 [place] [address] [place] [id number] [address] [place] [address] Jul, 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 M19.90 [place] [address] [place] [id number] [address] [place] [address] Jun, Diabetes E11.9 ; Encounter f or immunization Z23 ; 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 M19.90 ; 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 ; Cigarette nicotine dependence without complication F17.210 ; Acquired hypothyroidism E03.9 ; Morbid obesity, unspecified obesity type E66.01 and Irregular heart beats I49.9 [place] [address] [place] [id number] [address] [place] [address] Jun, 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 M19.90 [place] [address] [place] [id number] [address] [place] [address] May, 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 M19.90 [place] [address] [place] [id number] [address] [place] [address] May, Urinary incontinence, unspec ified type R32 [place] [address] [place] [id number] [address] [place] [id number] May, [facility] [address] [place] [id number] [address] [place] [address] Apr, 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 M19.90 [facility] [address] [id number] [address] [place] [address] Apr, 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 [facility] [address] [id number] [address] [place] [address] Apr, [facility] [address] [facility] [id number] [address] [place] [address] Apr, 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 M19.90 [facility] [address] [id number] [address] [place] [address] Mar, Diabetes E11.9 ; Hypothyroid ism, unspecified type E03.9 ; 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 M19.90 ; High risk medication use Z79.899 ; Cigarette nicotine dependence without complication F17.210 and Morbid obesity, unspecified obesity type E66.01 [facility] [address] [id number] [address] [place] [address] Mar, 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 M19.90 [facility] [address] [id number] [address] [place] [address] December, 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 M19.90 [facility] [address] [facility] [id number] [address] [place] [address] December, [facility] [address] [id number] [address] [place] [address] Oct, [facility] [address] [id number] [address] [place] [address] Oct, [facility] [address] [id number] [address] [place] [address] Aug, [facility] [address] [id number] [address] [place] [id number] Jul, [facility] [address] [facility] [id number] [address] [place] [id number] Jul, [facility] [address] [id number] [address] [place] [id number] Jul, Diabetes E11.9 ; Encounter f or immunization Z23 ; Abnormal mammogram R92.8 ; Acquired hypothyroidism E03.9 ; High risk medication use Z79.899 ; 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 M19.90 and Cigarette nicotine dependence without complication F17.210 [facility] [address] [facility] [id number] [address] [place] [id number] Jul, [facility] [address] [id number] [address] [place] [id number] Jun, Abnormal mammogram R92.8 [facility] [address] [facility] [id number] [address] [place] [id number] Apr, [facility] [address] [facility] [id number] [address] [place] [phone] Apr, [facility] [address] [place] [id number] [address] [place] [id number] Mar, [facility] [address] [place] [id number] [address] [place] [phone] Mar, 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 use of 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 ant 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 V58.61 [facility] [address] [place] [id number] [address] [place] [id number] Feb, [facility] [address] [facility] [id number] [address] [place] [phone] Jan, [facility] [address] [facility] [id number] [address] [place] [phone] December, [facility] [address] [facility] [id number] [address] [place] [phone] Nov, [facility] [address] [place] [id number] [place] [id number] Nov, [facility] [address] [facility] [id number] [address] [place] [id number] Oct, [facility] [address] [place] [id number] [address] [place] [id number] Oct, [facility] [address] [id number] [facility] [address] Oct, [facility] [address] [id number] [address] [place] [address], [place] [address] Oct, [facility] [address] [id number] [address] [place] [address], [place] [address] Oct, [facility] [address] [id number] [address] [place] [address], [place] [address] Oct, [facility] [address] [id number] [address] [place] [address], [place] [address] Sep, [facility] [address] [id number] [address] [place] [address], [place] [address] Sep, [facility] [address] [id number] [address] [place] [address], [place] [address] Sep, [facility] [address] [id number] [address] [place] [address], [place] [address] Sep, [facility] [address] [id number] [address] [place] [address], [place] [address] Aug, [facility] [address] [id number] [address] [place] [address], [place] [address] Aug, [facility] [address] [id number] [address] [place] [address], [place] [address] Aug, [facility] [address] [id number] [address] [place] [address], [place] [address] Aug, [facility] [address] [id number] [address] [place] [address], [place] [address] Aug, [facility] [address] [id number] [address] [place] [address], [place] [address] Aug, [facility] [address] [id number] [address] [place] [address], [place] [address] Jul, [facility] [address] [id number] [address] [place] [address], [place] [address] Jul, [facility] [address] [id number] [address] [place] [address], [place] [address] Jul, [facility] [address] [id number] [address] [place] [address], [place] [address] Jul, [facility] [address] [id number] [address] [place] [address], [place] [address] Jul, [facility] [address] [id number] [address] [place] [address], [place] [address] Jul, [facility] [address] [id number] [address] [place] [address], [place] [address] Jun, [facility] [address] [id number] [address] [place] [address], [place] [address] Jun, [facility] [address] [id number] [address] [place] [address], [place] [address] Jun, [facility] [address] [id number] [address] [place] [address], [place] [address] Jun, [facility] [address] [id number] [address] [place] [address], [place] [address] Jun, [facility] [address] [id number] [address] [place] [address], [place] [address] Jun, [facility] [address] [id number] [address] [place] [address], [place] [address] Jun, [facility] [address] [id number] [address] [place] [address], [place] [address] Jun, [facility] [address] [id number] [address] [place] [address], [place] [address] Jun, [facility] [address] [id number] [address] [place] [address], [place] [address] May, [facility] [address] [id number] [address] [place] [address], [place] [address] May, [facility] [address] [id number] [address] [place] [address], [place] [address] Apr, 2013 [facility] [address] [id number] [address] [place] [address], [place] [address] Apr, [facility] [address] [id number] [address] [place] [address], [place] [address] Apr, 2013 [facility] [address] [id number] [address] [place] [address], [place] [address] Apr, 2013 [facility] [address] [id number] [address] [place] [address], [place] [address] Apr, [facility] [address] [id number] [address] [place] [address], [place] [address] Apr, [facility] [address] [id number] [address] [place] [address], [place] [address] Apr, [facility] [address] [id number] [address] [place] [address], [place] [address] Apr, [facility] [address] [id number] [address] [place] [address], [place] [address] Apr, [facility] [address] [id number] [address] [place] [address], [place] [address] Apr, [facility] [address] [id number] [address] [place] [address], [place] [address] Mar, [facility] [address] [id number] [address] [place] [address], [place] [address] Mar, [facility] [address] [id number] [address] [place] [address], [place] [address] Mar, [facility] [address] [id number] [address] [place] [address], [place] [address] Mar, [facility] [address] [id number] [address] [place] [address], [place] [address] Mar, [facility] [address] [id number] [address] [place] [address], [place] [address] Mar, [facility] [address] [id number] [address] [place] [address], [place] [address] Feb, [facility] [address] [id number] [address] [place] [address], [place] [address] Feb, [facility] [address] [id number] [address] [place] [address], [place] [address] Feb, [facility] [address] [id number] [address] [place] [address], [place] [address] Feb, [facility] [address] [id number] [address] [place] [address], [place] [address] Jan, [facility] [address] [id number] [address] [place] [address], [place] [address] Jan, [facility] [address] [id number] [address] [place] [address], [place] [address] Jan, [facility] [address] [id number] [address] [place] [address], [place] [address] Jan, [facility] [address] [id number] [address] [place] [address], [place] [address] Oct, [facility] [address] [id number] [address] [place] [address], [place] [address] Oct, [facility] [address] [id number] [address] [place] [address], [place] [address] Sep, [facility] [address] [id number] [address] [place] [address], [place] [address] Sep, [facility] [address] [id number] [address] [place] [address], [place] [address] Sep, [facility] [address] [id number] [address] [place] [address], [place] [address] Sep, [facility] [address] [id number] [address] [place] [address], [place] [address] Aug, [facility] [address] [id number] [address] [place] [address], [place] [address] Aug, [facility] [address] [id number] [address] [place] [address], [place] [address] Aug, [facility] [address] [id number] [address] [place] [address], [place] [address] Aug, [facility] [address] [id number] [address] [place] [address], [place] [address] Jul, [facility] [address] [id number] [address] [place] [address], [place] [address] Jul, [facility] [address] [id number] [address] [place] [address], [place] [address] Jul, [facility] [address] [id number] [address] [place] [address], [place] [address] Jul, [facility] [address] [id number] [address] [place] [address], [place] [address] Jul, [facility] [address] [id number] [address] [place] [address], [place] [address] Jul, [facility] [address] [id number] [address] [place] [address], [place] [address] Jun, [facility] [address] [id number] [address] [place] [address], [place] [address] Jun, [facility] [address] [id number] [address] [place] [address], [place] [address] Jun, [facility] [address] [id number] [address] [place] [address], [place] [address] Jun, [facility] [address] [id number] [address] [place] [address], [place] [address] Jun, [facility] [address] [id number] [address] [place] [address], [place] [address] Jun, [facility] [address] [id number] [address] [place] [address], [place] [address] May, [facility] [address] [id number] [address] [place] [address], [place] [address] May, [facility] [address] [id number] [address] [place] [address], [place] [address] May, [facility] [address] [id number] [address] [place] [address], [place] [address] May, [facility] [address] [id number] [address] [place] [address], [place] [address] May, [facility] [address] [id number] [address] [place] [address], [place] [address] May, [facility] [address] [id number] [address] [place] [address], [place] [address] May, [facility] [address] [id number] [address] [place] [address], [place] [address] May, [facility] [address] [id number] [address] [place] [address], [place] [address] Apr, [facility] [address] [id number] [address] [place] [address], [place] [address] Apr, [facility] [address] [id number] [address] [place] [address], [place] [address] Mar, [facility] [address] [id number] [address] [place] [address], [place] [address] Mar, [facility] [address] [id number] [address] [place] [address], [place] [address] Mar, [facility] [address] [id number] [address] [place] [address], [place] [address] Mar, [facility] [address] [id number] [address] [place] [address], [place] [address] Feb, [facility] [address] [id number] [address] [place] [address], [place] [address] Jan, [facility] [address] [id number] [address] [place] [address], [place] [address] December, [facility] [address] [id number] [address] [place] [address], [place] [address] December, [facility] [address] [id number] [address] [place] [address], [place] [address] December, [facility] [address] [id number] [address] [place] [address], [place] [address] Nov, [facility] [address] [id number] [address] [place] [address], [place] [address] Nov, [facility] [address] [id number] [address] [place] [address], [place] [address] 14 Sep, 2012 [facility] [address] [id number] [address] [place] [address], [place] [address] 14 Sep, 2012 [facility] [address] [id number] [address] [place] [address], [place] [address] 14 Sep, 2012 [facility] [address] [id number] [address] [place] [address], [place] [address] Sep, [facility] [address] [id number] [address] [place] [address], [place] [address] Aug, [facility] [address] [id number] [address] [place] [address], [place] [address] Aug, [facility] [address] [id number] [address] [place] [address], [place] [address] Aug, [facility] [address] [id number] [address] [place] [address], [place] [address] Aug, [facility] [address] [id number] [address] [place] [address], [place] [address] Jul, [facility] [address] [id number] [address] [place] [address], [place] [address] Jul, [facility] [address] [id number] [address] [place] [address], [place] [address] Jul, [facility] [address] [id number] [address] [place] [address], [place] [address] Jul, [facility] [address] [id number] [address] [place] [address], [place] [address] Jun, [facility] [address] [id number] [address] [place] [address], [place] [address] Jun, [facility] [address] [id number] [address] [place] [address], [place] [address] Jun, [facility] [address] [id number] [address] [place] [address], [place] [address] Jun, [facility] [address] [id number] [address] [place] [address], [place] [address] May, [facility] [address] [id number] [address] [place] [address], [place] [address] May, [facility] [address] [id number] [address] [place] [address], [place] [address] May, [facility] [address] [id number] [address] [place] [address], [place] [address] May, [facility] [address] [id number] [address] [place] [address], [place] [address] May, [facility] [address] [id number] [address] [place] [address], [place] [address] 10 Apr, 2012 [facility] [address] [id number] [address] [place] [address] 08 Apr, 2012 [facility] [address] [id number] [address] [place] [address], [place] [address] 07 Apr, 2012 [facility] [address] [id number] [address] [place] [address], [place] [address] 06 Apr, 2012 [facility] [address] [id number] [address] [place] [address], [place] [address] Mar, [facility] [address] [id number] [address] [place] [address], [place] [address] Mar, [facility] [address] [id number] [address] [place] [address], [place] [address] Feb, [facility] [address] [id number] [address] [place] [address], [place] [address] Feb, [facility] [address] [id number] [address] [place] [address], [place] [address] Feb, [facility] [address] [id number] [address] [place] [address], [place] [address] Jan, [facility] [address] [id number] [address] [place] [address], [place] [address] Jan, [facility] [address] [id number] [address] [place] [address], [place] [address] December, [facility] [address] [id number] [address] [place] [address], [place] [address] December, [facility] [address] [id number] [address] [place] [address], [place] [address] Nov, [facility] [address] [id number] [address] [place] [address], [place] [address] Oct, [facility] [address] [id number] [address] [place] [address], [place] [address] Oct, [facility] [address] [id number] [address] [place] [address], [place] [address] Sep, [facility] [address] [id number] [address] [place] [address], [place] [address] Sep, [facility] [address] [id number] [address] [place] [address], [place] [address] Aug, [facility] [address] [id number] [address] [place] [address], [place] [address] Aug, [facility] [address] [id number] [address] [place] [address], [place] [address] Jul, [facility] [address] [id number] [address] [place] [address], [place] [address] Jul, [facility] [address] [id number] [address] [place] [address], [place] [address] Jul, [facility] [address] [id number] [address] [place] [address], [place] [address] Jun, [facility] [address] [id number] [address] [place] [address], [place] [address] Jun, [facility] [address] [id number] [address] [place] [address], [place] [address] 13 May, 2011 [facility] [address] [id number] [address] [place] [address], [place] [address] May, [facility] [address] [id number] [address] [place] [address], [place] [address] May, [facility] [address] [id number] [address] [place] [address], [place] [address] Jul, [facility] [address] [id number] [address] [place] [address], [place] [address] Jul, [facility] [address] [id number] [address] [place] [address], [place] [address] Jun, [facility] [address] [id number] [address] [place] [address], [place] [id number] May, [facility] [address] [id number] [address] [place] [address], [place] [id number] May, [facility] [address] [id number] [address] [place] [address], [place] [id number] Aug, [facility] [address] [id number] [address] [place] [address], [place] [id number] Jul, [facility] [address] [id number] [address] [place] [address], [place] [id number] Jun, [facility] [address] [id number] [address] [place] [id number] Jun, [facility] [address] [facility] [id number] [address] [place] [id number] Jun, [facility] [address] [facility] [id number] [address] [place] [id number] Jun, [facility] [address] [facility] [id number] [address] [place] [id number] Jun, [facility] [address] [facility] [id number] [address] [place] [id number] May, [facility] [address] [facility] [id number] [address] [place] [id number] Sep, IMMUNIZATIONS No Known Immunizations SOCIAL HISTORY Never Assessed REASON FOR VISIT PLAN OF CARE VITAL SIGNS MEDICATIONS Unknown Medications RESULTS No Results PROCEDURES No Known procedures INSTRUCTIONS MEDICATIONS ADMINISTERED No Known Medications MEDICAL (GENERAL) HISTORY Type Description Date Medical History type 2 diabetes Medical History hypertension Medical History asthma/COPD Medical History arthritis Medical History hypothyroidism Surgical History hysterectomy Surgical History tubal ligation Surgical History thyroidectomy Surgical History cholecystectomy Surgical History appendectomy Surgical History total knee replacments 2015 and 2017 Hospitalization History bronchitis 2011
--- OUTSIDE RECORDS SUMMARY | 2020-01-28 14:23 | XMS REPORT ---
Author Author Katarina RODRIGUEZ Organization [facility] Address [address] [place] [address] Care Team Providers Care Project Coordinator Rn Name Role Phone GEORGINA RODRIGUEZ Unavailable PROBLEMS Type Condition ICD9-CM Code KZD00-CA Code Onset Dates Condition S tatus SNOMED Code Problem 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 M19.90 Active 02930 5006 Problem Chronic obstructive pulmonary disease, unspecified COPD ty pe J44.9 Active 25900541 Problem Acquired hypothyroidism E03.9 Active 332077459 Problem Cigarette nicotine dependence without complication F17.210 Active 84140520 Problem Diabetes E11.9 Active 831325272 Problem High risk medication use Z79.899 Activ e 214488831 Problem Urinary incontinence, unspecified type R32 Active 485473297 Problem residential (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.01 Active 835622885 Problem Morbid obesity, unspecified obesity type E66.01 Active 556567093 Problem Other chronic pain G89.29 Active 8 9164945 Problem History of cataract surgery Z98.49 Ac tive 291982560 Problem Type 2 diabetes mellitus wit h hyperglycemia, without long-term current use of insulin E11.65 Active 64033323 Problem Encounter for immunization Z23 Act essie 169491603 Problem Irregular heart beats I49.9 Active 104024954 Problem Other urinary incontinence N39.498 Act essie 734689629 Problem Essential hypertension I10 Active 25125627 Problem Chronic atrial fibrillation I48.2 Ac tive 686088591 ALLERGIES No Information ENCOUNTERS Encounter Location Date Diagnosis [facility] [address] [facility] [id number] [address] [place] [id number] December, [facility] [address] [facility] [id number] [address] [place] [phone] December, residential (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 a 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 Z79.01 [facility] [address] [id number] [address] [place] [id number] December, [employer] (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 a 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 Z79.01 [facility] [address] [id number] [address] [place] [phone] Oct, [facility] [address] [id number] [address] [place] [phone] 05 Oct, 2019 residential (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 a 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 Z79.01 [place] [address] [id number] [address] [place] [phone] 04 Oct, 2019 [employer] (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 a 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 Z79.01 [place] [address] [id number] [address] [place] [phone] Sep, [place] [address] [facility] [id number] [address] [place] [phone] Aug, 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 M19.90 [place] [address] [facility] [id number] [address] [place] [id number] Aug, Diabetes E11.9 ; [employer] ( 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.01 ; Tobacco abuse Z72.0 ; Low back pain M54.5 and Chronic atrial fibrillation I48.2 [place] [address] [facility] [id number] [address] [place] [phone] Aug, Diabetes E11.9 [facility] [address] [facility] [id number] [address] [place] [phone] Aug, [facility] [address] [id number] [address] [place] [phone] 08 Aug, 2019 Acute non-recurrent pansinus itis J01.40 and Non- recurrent acute suppurative otitis media of left ear without spontaneous rupture of tympanic membrane H66.002 [place] [address] [id number] [address] [place] [id number] Aug, [place] [address] [facility] [id number] [address] [place] [id number] Aug, residential (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 a 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 Z79.01 [facility] [address] [id number] [address] [place] [id number] Aug, [employer] (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 a 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 Z79.01 [facility] [address] [id number] [address] [place] [id number] Jul, 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 M19.90 [facility] [address] [id number] [address] [place] [id number] Jul, 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 M19.90 [facility] [address] [id number] [address] [place] [phone] Jun, [facility] [address] [id number] [address] [place] [phone] Jun, Chronic atrial fibrillation I48.2 [facility] [address] [id number] [address] [place] [phone] Jun, 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 M19.90 [facility] [address] [id number] [address] [place] [id number] Jun, Chronic atrial fibrillation I48.2 [facility] [address] [id number] [address] [place] [phone] May, 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 M19.90 [facility] [address] [id number] [address] [place] [phone] May, Chronic atrial fibrillation I48.2 [facility] [address] [id number] [address] [place] [id number] Apr, 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 M19.90 [facility] [address] [id number] [address] [place] [phone] Mar, Chronic atrial fibrillation I48.2 [facility] [address] [id number] [address] [place] [phone] Mar, Chronic atrial fibrillation I48.2 [facility] [address] [id number] [address] [place] [phone] Mar, 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 M19.90 [facility] [address] [id number] [address] [place] [id number] Mar, Chronic atrial fibrillation I48.2 [facility] [address] [id number] [address] [place] [phone] Mar, Type 2 diabetes mellitus wit h hyperglycemia, without long-term current use of insulin E11.65 ; Chronic atrial fibrillation I48.2 and Morbid obesity E66.01 [facility] [address] [id number] [address] [place] [address] Feb, 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 M19.90 [facility] [address] [facility] [id number] [address] [place] [phone] Feb, Chronic atrial fibrillation I48.2 [facility] [address] [facility] [id number] [address] [place] [address] Feb, Hyperglycemia R73.9 ; Diabet es E11.9 ; Morbid obesity E66.01 ; Acquired hypothyroidism E03.9 ; 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 M19.90 and High risk medication use Z79.899 [facility] [address] [id number] [address] [place] [id number] Feb, Chronic atrial fibrillation I48.2 [facility] [address] [id number] [address] [place] [phone] Jan, 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 M19.90 [facility] [address] [id number] [address] [place] [id number] Jan, Chronic atrial fibrillation I48.2 [facility] [address] [id number] [address] [place] [phone] Jan, Chronic atrial fibrillation I48.2 [facility] [address] [facility] [id number] [address] [place] [phone] Jan, Chronic atrial fibrillation I48.2 [facility] [address] [facility] [id number] [address] [place] [phone] Jan, residential (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 a 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 Z79.01 [facility] [address] [id number] [address] [place] [id number] December, [facility] [address] [id number] [address] [place] [id number] December, [facility] [address] [id number] [address] [place] [phone] December, 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 M19.90 [facility] [address] [id number] [address] [place] [phone] Nov, [facility] [address] [id number] [address] [place] [address] Nov, 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 M19.90 [facility] [address] [id number] [address] [place] [phone] Oct, 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 M19.90 [facility] [address] [id number] [address] [place] [address] Sep, 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 M19.90 [facility] [address] [id number] [address] [place] [phone] Sep, [employer] (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 a 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 Z79.01 ; BMI 45.0-49.9, adult Z68.42 ; Diabetes E11.9 ; Chronic atrial fibrillation I48.2 and Chronic obstructive pulmonary disease, unspecified COPD type J44.9 [facility] [address] [id number] [address] [place] [address] Sep, Diabetes E11.9 ; residential ( 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.01 ; Chronic atrial fibrillation I48.2 ; Chronic obstructive pulmonary disease, unspecified COPD type J44.9 and BMI 45.0-49.9, adult Z68.42 [facility] [address] [id number] [address] [place] [id number] Aug, 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 M19.90 [facility] [address] [id number] [address] [place] [address] Aug, [facility] [address] [id number] [address] [place] [id number] Aug, residential (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 a 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 Z79.01 ; BMI 45.0-49.9, adult Z68.42 ; Diabetes E11.9 and Chronic atrial fibrillation I48.2 [facility] [address] [id number] [address] [place] [phone] Aug, [facility] [address] [id number] [address] [place] [id number] Jul, 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 M19.90 [facility] [address] [facility] [id number] [address] [place] [phone] Jun, 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 M19.90 [facility] [address] [id number] [address] [place] [id number] Jun, [employer] (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 a 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 Z79.01 [facility] [address] [id number] [address] [place] [phone] Jun, 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 [facility] [address] [id number] [address] [place] [address] Jun, 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 M19.90 [facility] [address] [id number] [address] [place] [phone] May, Encounter for immunization Z 23 [facility] [address] [id number] [address] [place] [id number] May, residential (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 a 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 Z79.01 [facility] [address] [id number] [address] [place] [address] May, 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 M19.90 [facility] [address] [id number] [address] [place] [phone] May, [facility] [address] [facility] [id number] [address] [place] [phone] May, Diabetes E11.9 ; residential ( 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.01 ; Chronic atrial fibrillation I48.2 ; BMI 45.0-49.9, adult Z68.42 ; 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 M19.90 ; Low back pain M54.5 and Other chronic pain G89.29 [facility] [address] [id number] [address] [place] [id number] 20 Apr, 2018 Chronic atrial fibrillation I48.2 [facility] [address] [id number] [address] [place] [id number] 13 Apr, 2018 residential (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 a 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 Z79.01 [facility] [address] [id number] [address] [place] [id number] 07 Apr, 2018 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 M19.90 [place] [address] [facility] [id number] [address] [place] [phone] Apr, residential (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 a 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 Z79.01 and Chronic atrial fibrillation I48.2 [facility] [address] [id number] [address] [place] [id number] Mar, 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 M19.90 [place] [address] [id number] [address] [place] [id number] Feb, 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 M19.90 [place] [address] [facility] [id number] [address] [place] [phone] Jan, 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 M19.90 [facility] [address] [id number] [address] [place] [address] December, [facility] [address] [id number] [address] [place] [address] December, 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 M19.90 [facility] [address] [facility] [id number] [address] [place] [address] Nov, Diabetes E11.9 ; residential ( 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.01 ; Acquired hypothyroidism E03.9 ; Cigarette nicotine dependence without complication F17.210 ; 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 M19.90 ; BMI 45.0-49.9, adult Z68.42 and Chronic atrial fibrillation I48.2 [facility] [address] [address] Nov, 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 M19.90 [facility] [address] [id number] Oct, 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 M19.90 [facility] [address] [phone] Oct, residential (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 a 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 Z79.01 [facility] [address] [place] [id number] [place] [phone] Sep, 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 M19.90 [facility] [address] [address] Sep, [facility] [address] [address] Aug, 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 M19.90 [facility] [address] [address] Jul, 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 M19.90 [facility] [address] [address] Jul, 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 M19.90 [facility] [address] [address] Jun, Diabetes E11.9 ; Encounter f or immunization Z23 ; 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 ; Chronic atrial fibrillation I48.2 ; 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 M19.90 ; Tobacco abuse Z72.0 and Bug bite, initial encounter W57.XXXA [facility] [address] [address] May, 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 M19.90 [facility] [address] [address] Apr, 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 M19.90 [place] [address] [id number] [address] [place] [address] Mar, Chronic atrial fibrillation I48.2 [facility] [address] [id number] [address] [place] [address] Mar, [facility] [address] [id number] [address] [place] [address] Mar, 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 M19.90 [facility] [address] [id number] [address] [place] [id number] Mar, residential (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 a 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 Z79.01 and Chronic atrial fibrillation I48.2 [place] [address] [id number] [address] [place] [address] Mar, 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 [place] [address] [id number] [address] [place] [address] Mar, [employer] (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 a 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 Z79.01 [place] [address] [id number] [address] [place] [address] Mar, residential (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 a 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 Z79.01 [place] [address] [id number] [address] [place] [id number] Mar, 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 M19.90 [place] [address] [id number] [address] [place] [id number] Feb, Encounter for screening mamm ogram for malignant neoplasm of breast Z12.31 [facility] [address] [id number] [address] [place] [id number] Feb, 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 M19.90 [facility] [address] [id number] [address] [place] [phone] Jan, [facility] [address] [id number] [address] [place] [phone] Jan, [employer] (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 a 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 Z79.01 ; Diabetes E11.9 ; 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 M19.90 and Breast cancer screening Z12.39 [facility] [address] [place] [id number] [address] [place] [id number] Jan, 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 M19.90 [facility] [address] [facility] [id number] [address] [place] [phone] Jan, 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 M19.90 [facility] [address] [facility] [id number] [address] [place] [phone] Jan, [facility] [address] [facility] [id number] [address] [place] [address] December, 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 M19.90 [facility] [address] [facility] [id number] [address] [place] [address] December, 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 M19.90 [facility] [place] [address] [place] [id number] [place] [id number] Nov, [facility] [address] [facility] [id number] [address] [place] [phone] Nov, [facility] [address] [place] [id number] [address] [place] [id number] Nov, [facility] [address] [facility] [id number] [address] [place] [phone] Nov, Diabetes E11.9 [facility] [address] [place] [id number] [address] [place] [id number] Nov, [facility] [address] [facility] [id number] [address] [place] [phone] Oct, 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 M19.90 [facility] [address] [place] [id number] [address] [place] [address] Oct, 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 M19.90 ; 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 ; Diabetes E11.9 ; Cigarette nicotine dependence without complication F17.210 and Chronic atrial fibrillation I48.2 [facility] [address] [place] [id number] [address] [place] [phone] Aug, [facility] [address] [facility] [id number] [address] [place] [id number] Aug, residential (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 a 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 Z79.01 [facility] [address] [facility] [id number] [address] [place] [address] Aug, [facility] [place] [address] [id number] [id number] Aug, [facility] [address] [facility] [id number] [address] [place] [id number] Aug, [facility] [address] [facility] [id number] [address] [place] [address] Aug, [facility] [place] [address] [id number] [place] [id number] Aug, [facility] [address] [id number] Aug 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 M19.90 and Essential hypertension I10 [facility] [id number] [place] [address] Aug, Other urinary incontinence N 39.498 [place] [address] [place] [id number] [address] [place] [address] Jul, 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 M19.90 [place] [address] [address] Jun, Diabetes E11.9 ; Encounter f or immunization Z23 ; 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 M19.90 ; 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 ; Cigarette nicotine dependence without complication F17.210 ; Acquired hypothyroidism E03.9 ; Morbid obesity, unspecified obesity type E66.01 and Irregular heart beats I49.9 [facility] [address] [place] [id number] [address] [place] [id number] Jun, 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 M19.90 [facility] [address] [place] [id number] [address] [place] [phone] May, 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 M19.90 [facility] [address] [facility] [id number] [address] [place] [address] May, Urinary incontinence, unspec ified type R32 [facility] [address] [facility] [id number] [address] [place] [id number] May, [facility] [address] [place] [id number] [address] [place] [address] Apr, 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 M19.90 [facility] [address] [place] [id number] [place] [address] Apr, residential (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 a 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 Z79.01 [facility] [address] [facility] [id number] [address] [place] [address] Apr, [facility] [address] [place] [id number] [address] [place] [address] Apr, 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 M19.90 [facility] [address] [place] [id number] [address] [place] [address] Mar, Diabetes E11.9 ; Hypothyroid ism, unspecified type E03.9 ; 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 M19.90 ; High risk medication use Z79.899 ; Cigarette nicotine dependence without complication F17.210 and Morbid obesity, unspecified obesity type E66.01 [facility] [address] [place] [id number] [address] [place] [id number] Mar, 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 M19.90 [facility] [address] [facility] [id number] [address] [place] [id number] December, 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 M19.90 [facility] [address] [facility] [id number] [address] [place] [id number] December, [facility] [address] [facility] [id number] [address] [place] [phone] Oct, [facility] [address] [id number] [address] [place] [id number] Oct, [facility] [id number] [address] [place] [id number] Aug, [facility] [address] [id number] [address] [place] [id number] Jul, [facility] [address] [facility] [id number] [address] [place] [id number] Jul, [facility] [address] [id number] [address] [place] [id number] Jul, Diabetes E11.9 ; Encounter f or immunization Z23 ; Abnormal mammogram R92.8 ; Acquired hypothyroidism E03.9 ; High risk medication use Z79.899 ; 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 M19.90 and Cigarette nicotine dependence without complication F17.210 [facility] [address] [id number] [address] [place] [id number] Jul, [facility] [address] [facility] [id number] [address] [place] [id number] Jun, Abnormal mammogram R92.8 [facility] [address] [id number] [address] [place] [id number] Apr, [facility] [address] [id number] [address] [place] [id number] Apr, [facility] [address] [address] [id number] [address] [place] [address] Mar, [facility] [address] [id number] [address] [place] [address] Mar, Current use of 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 ant 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 V58.61 [facility] [address] [id number] [address] [place] [address] Feb, [facility] [address] [id number] [address] [place] [address] Jan, [facility] [address] [facility] [id number] [address] [place] [address] December, [facility] [address] [facility] [id number] [address] [place] [address] 14 Nov, 2014 [facility] [address] [id number] [address] [place] [address], [place] [address] Nov, [facility] [address] [id number] [address] [place] [address], [place] [address] Oct, [facility] [address] [id number] [address] [place] [address], [place] [address] Oct, [facility] [address] [id number] [address] [place] [address], [place] [address] Oct, [facility] [address] [id number] [address] [place] [address], [place] [address] Oct, [facility] [address] [id number] [address] [place] [address], [place] [address] Oct, [facility] [address] [id number] [address] [place] [address], [place] [address] Oct, [facility] [address] [id number] [address] [place] [address], [place] [address] Sep, [facility] [address] [id number] [address] [place] [address], [place] [address] Sep, [facility] [address] [id number] [address] [place] [address], [place] [address] Sep, [facility] [address] [id number] [address] [place] [address], [place] [address] Sep, [facility] [address] [id number] [address] [place] [address], [place] [address] Aug, [facility] [address] [id number] [address] [place] [address], [place] [address] Aug, [facility] [address] [id number] [address] [place] [address], [place] [address] Aug, [facility] [address] [id number] [address] [place] [address], [place] [address] Aug, [facility] [address] [id number] [address] [place] [address], [place] [address] 15 Aug, 2014 [facility] [place] [address] [id number] [address] [place] [address], [place] [address] Aug, [facility] [address] [id number] [address] [place] [address], [place] [address] Jul, [facility] [place] [address] [id number] [address] [place] [address], [place] [address] Jul, [facility] [address] [id number] [address] [place] [address], [place] [address] Jul, [facility] [address] [id number] [address] [place] [address], [place] [address] Jul, [facility] [place] [address] [id number] [address] [place] [address], [place] [address] Jul, [facility] [address] [id number] [address] [place] [address], [place] [address] Jul, [facility] [place] [address] [id number] [address] [place] [address], [place] [address] Jun, [facility] [address] [id number] [address] [place] [address], [place] [address] Jun, [facility] [address] [id number] [address] [place] [address], [place] [address] Jun, [facility] [address] [id number] [address] [place] [address], [place] [address] Jun, [facility] [address] [id number] [address] [place] [address], [place] [address] Jun, [facility] [address] [id number] [address] [place] [address], [place] [address] Jun, [facility] [address] [id number] [address] [place] [address], [place] [address] Jun, [facility] [address] [id number] [address] [place] [address], [place] [address] Jun, [facility] [address] [id number] [address] [place] [address], [place] [address] Jun, [facility] [address] [id number] [address] [place] [address], [place] [address] May, [facility] [address] [id number] [address] [place] [address], [place] [address] May, [facility] [address] [id number] [address] [place] [address], [place] [address] Apr, [facility] [address] [id number] [address] [place] [address], [place] [address] Apr, [facility] [address] [id number] [address] [place] [address], [place] [address] Apr, [facility] [address] [id number] [address] [place] [address], [place] [address] Apr, [facility] [address] [id number] [address] [place] [address], [place] [address] Apr, [facility] [address] [id number] [address] [place] [address], [place] [address] Apr, [facility] [address] [id number] [address] [place] [address], [place] [address] Apr, [facility] [address] [id number] [address] [place] [address], [place] [address] Apr, [facility] [address] [id number] [address] [place] [address] Apr, [facility] [address] [id number] [address] [place] [address], [place] [address] Apr, [facility] [address] [id number] [address] [place] [address], [place] [address] Mar, [facility] [address] [id number] [address] [place] [address] Mar, [facility] [address] [id number] [address] [place] [address], [place] [address] Mar, [facility] [address] [id number] [address] [place] [address], [place] [address] Mar, [facility] [address] [id number] [address] [place] [address], [place] [address] Mar, [facility] [address] [id number] [address] [place] [address], [place] [address] Mar, [facility] [address] [id number] [address] [place] [address], [place] [address] Feb, [facility] [address] [id number] [address] [place] [address], [place] [address] Feb, [facility] [address] [id number] [address] [place] [address], [place] [address] Feb, [facility] [address] [id number] [address] [place] [address], [place] [address] Feb, [facility] [address] [id number] [address] [place] [address], [place] [address] Jan, [facility] [address] [id number] [address] [place] [address], [place] [address] Jan, [facility] [address] [id number] [address] [place] [address], [place] [address] Jan, [facility] [address] [id number] [address] [place] [address], [place] [address] Jan, [facility] [address] [id number] [address] [place] [address], [place] [address] Oct, [facility] [address] [id number] [address] [place] [address], [place] [address] Oct, [facility] [address] [id number] [address] [place] [address], [place] [address] Sep, [facility] [address] [id number] [address] [place] [address], [place] [address] Sep, [facility] [address] [id number] [address] [place] [address], [place] [address] Sep, [facility] [address] [id number] [address] [place] [address], [place] [address] Sep, [facility] [address] [id number] [address] [place] [address], [place] [address] Aug, [facility] [address] [id number] [address] [place] [address], [place] [address] Aug, [facility] [address] [id number] [address] [place] [address], [place] [address] Aug, [facility] [address] [id number] [address] [place] [address], [place] [address] Aug, [facility] [address] [id number] [address] [place] [address], [place] [address] Jul, [facility] [address] [id number] [address] [place] [address], [place] [address] Jul, [facility] [address] [id number] [address] [place] [address], [place] [address] Jul, [facility] [address] [id number] [address] [place] [address], [place] [address] Jul, [facility] [address] [id number] [address] [place] [address], [place] [address] Jul, [facility] [address] [id number] [address] [place] [address], [place] [address] Jul, [facility] [address] [id number] [address] [place] [address], [place] [address] Jun, [facility] [address] [id number] [address] [place] [address], [place] [address] Jun, [facility] [address] [id number] [address] [place] [address], [place] [address] Jun, [facility] [address] [id number] [address] [place] [address], [place] [address] Jun, [facility] [address] [id number] [address] [place] [address], [place] [address] Jun, [facility] [address] [id number] [address] [place] [address], [place] [address] Jun, [facility] [address] [id number] [address] [place] [address], [place] [address] May, [facility] [address] [id number] [address] [place] [address], [place] [address] May, [facility] [address] [id number] [address] [place] [address], [place] [address] May, [facility] [address] [id number] [address] [place] [address], [place] [address] May, [facility] [address] [id number] [address] [place] [address], [place] [address] May, [facility] [address] [id number] [address] [place] [address], [place] [address] May, [facility] [address] [id number] [address] [place] [address], [place] [address] May, [facility] [address] [id number] [address] [place] [address], [place] [address] May, [facility] [address] [id number] [address] [place] [address], [place] [address] Apr, [facility] [address] [id number] [address] [place] [address], [place] [address] Apr, [facility] [address] [id number] [address] [place] [address], [place] [address] Mar, [facility] [address] [id number] [address] [place] [address], [place] [address] Mar, [facility] [address] [id number] [address] [place] [address], [place] [address] Mar, [facility] [address] [id number] [address] [place] [address], [place] [address] Mar, [facility] [place] [address] [id number] [address] [place] [address], [place] [address] Feb, [facility] [place] [address] [id number] [address] [place] [address], [place] [address] Jan, [facility] [address] [id number] [address] [place] [address], [place] [address] December, [facility] [place] [address] [id number] [address] [place] [address], [place] [address] December, [facility] [place] [address] [id number] [address] [place] [address], [place] [address] December, [facility] [address] [id number] [address] [place] [address], [place] [address] Nov, [facility] [place] [address] [id number] [address] [place] [address], [place] [address] Nov, [facility] [address] [id number] [address] [place] [address], [place] [address] Sep, [facility] [address] [id number] [address] [place] [address], [place] [address] 14 Sep, 2012 [facility] [address] [id number] [address] [place] [address], [place] [address] Sep, [facility] [address] [id number] [address] [place] [address], [place] [address] Sep, [facility] [address] [id number] [address] [place] [address], [place] [address] Aug, [facility] [address] [id number] [address] [place] [address], [place] [address] Aug, [facility] [address] [id number] [address] [place] [address], [place] [address] Aug, [facility] [place] [address] [id number] [address] [place] [address], [place] [address] Aug, [facility] [address] [id number] [address] [place] [address], [place] [address] Jul, [facility] [address] [id number] [address] [place] [address], [place] [address] Jul, [facility] [address] [id number] [address] [place] [address], [place] [address] Jul, [facility] [address] [id number] [address] [place] [address], [place] [address] Jul, [facility] [address] [id number] [address] [place] [address], [place] [address] Jun, [facility] [address] [id number] [address] [place] [address], [place] [address] Jun, [facility] [address] [id number] [address] [place] [address], [place] [address] Jun, [facility] [address] [id number] [address] [place] [address], [place] [address] Jun, [facility] [address] [id number] [address] [place] [address], [place] [address] May, [facility] [address] [id number] [address] [place] [address], [place] [address] May, [facility] [address] [id number] [address] [place] [address], [place] [address] May, [facility] [address] [id number] [address] [place] [address] May, [facility] [address] [id number] [address] [place] [address], [place] [address] May, [facility] [address] [id number] [address] [place] [address], [place] [address] Apr, [facility] [address] [id number] [address] [place] [address], [place] [address] 08 Apr, 2012 [facility] [address] [id number] [address] [place] [address], [place] [address] 07 Apr, 2012 [facility] [address] [id number] [address] [place] [address], [place] [address] Apr, [facility] [address] [id number] [address] [place] [address], [place] [address] Mar, [facility] [address] [id number] [address] [place] [address], [place] [address] Mar, [facility] [address] [id number] [address] [place] [address], [place] [address] Feb, [facility] [address] [id number] [address] [place] [address], [place] [address] Feb, [facility] [address] [id number] [address] [place] [address], [place] [address] Feb, [facility] [place] [address] [id number] [address] [place] [address], [place] [address] Jan, [facility] [address] [id number] [address] [place] [address], [place] [address] Jan, [facility] [address] [id number] [address] [place] [address], [place] [address] December, [facility] [place] [address] [id number] [address] [place] [address], [place] [address] December, [facility] [address] [id number] [address] [place] [address], [place] [address] Nov, [facility] [address] [id number] [address] [place] [address], [place] [address] Oct, [facility] [address] [id number] [address] [place] [address], [place] [address] Oct, [facility] [address] [id number] [address] [place] [address], [place] [address] Sep, [facility] [address] [id number] [address] [place] [address], [place] [address] Sep, [facility] [place] [address] [id number] [address] [place] [address], [place] [address] Aug, [facility] [address] [id number] [address] [place] [address], [place] [address] Aug, [facility] [address] [id number] [address] [place] [address], [place] [address] Jul, [facility] [address] [id number] [address] [place] [address], [place] [address] Jul, [facility] [address] [id number] [address] [place] [address], [place] [address] Jul, [facility] [address] [id number] [address] [place] [address], [place] [address] Jun, [facility] [address] [id number] [address] [place] [address], [place] [address] Jun, [facility] [address] [id number] [address] [place] [address], [place] [address] May, [facility] [place] [address] [id number] [address] [place] [address], [place] [address] May, [facility] [place] [address] [id number] [address] [place] [address] May, [facility] [address] [id number] [address] [place] [address] Jul, [facility] [address] [id number] [address] [place] [address] Jul, [facility] [address] [id number] [address] [place] [address], [place] [address] Jun, [facility] [address] [id number] [address] [place] [address], [place] [address] May, [facility] [address] [id number] [address] [place] [id number] May, [facility] [address] [id number] [address] [place] [id number] Aug, [facility] [address] [facility] [id number] [address] [place] [id number] Jul, [facility] [address] [facility] [id number] [address] [place] [id number] Jun, [facility] [address] [facility] [id number] [address] [place] [id number] Jun, [facility] [address] [facility] [id number] [address] [place] [id number] Jun, [facility] [address] [facility] [id number] [address] [place] [phone] Jun, [facility] [address] [facility] [id number] [address] [place] [id number] Jun, [facility] [address] [facility] [id number] [address] [place] [id number] May, [facility] [address] [facility] [id number] [address] [place] [id number] Sep, IMMUNIZATIONS No Known Immunizations SOCIAL HISTORY Never Assessed REASON FOR VISIT PLAN OF CARE VITAL SIGNS MEDICATIONS Unknown Medications RESULTS No Results PROCEDURES Procedure Date Ordered Result Body Site PROTHROMBIN TIME February 17, 2012 INSTRUCTIONS MEDICATIONS ADMINISTERED No Known Medications MEDICAL [...]
--- OUTSIDE RECORDS SUMMARY | 2020-01-28 14:23 | XMS REPORT ---
Author Author Katarina RODRIGUEZ Organization [facility] Address [address] [place] [address] Care Team Providers [employer] Name Role Phone GEORGINA RODRIGUEZ Unavailable PROBLEMS Type Condition ICD9-CM Code NUU78-AS Code Onset Dates Condition S tatus SNOMED Code Problem 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 M19.90 Active 23163 5006 Problem Chronic obstructive pulmonary disease, unspecified COPD ty pe J44.9 Active 76425801 Problem Acquired hypothyroidism E03.9 Active 812080144 Problem Cigarette nicotine dependence without complication F17.210 Active 56034440 Problem Diabetes E11.9 Active 879099171 Problem High risk medication use Z79.899 Activ e 057203820 Problem Urinary incontinence, unspecified type R32 Active 238355043 Problem assisted (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.01 Active 518667771 Problem Morbid obesity, unspecified obesity type E66.01 Active 160157827 Problem Other chronic pain G89.29 Active 8 6239070 Problem History of cataract surgery Z98.49 Ac tive 402597321 Problem Type 2 diabetes mellitus wit h hyperglycemia, without long-term current use of insulin E11.65 Active 01556858 Problem Encounter for immunization Z23 Act essie 976775297 Problem Irregular heart beats I49.9 Active 546929983 Problem Other urinary incontinence N39.498 Act essie 670848996 Problem Essential hypertension I10 Active 04583190 Problem Chronic atrial fibrillation I48.2 Ac tive 622833677 ALLERGIES No Information ENCOUNTERS Encounter Location Date Diagnosis [facility] [address] [facility] [id number] [place] [phone] December, [facility] [address] [facility] [id number] [place] [phone] Oct, [facility] [address] [facility] [id number] [place] [phone] Oct, assisted (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 a 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 Z79.01 [facility] [address] [id number] [address] [place] [phone] Oct, assisted (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 a 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 Z79.01 [facility] [address] [id number] [address] [place] [phone] Sep, [facility] [address] [facility] [id number] [place] [phone] Aug, 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 M19.90 [facility] [address] [facility] [id number] [place] [phone] Aug, Diabetes E11.9 ; 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 ; Tobacco abuse Z72.0 ; Low back pain M54.5 and Chronic atrial fibrillation I48.2 [facility] [address] [id number] [address] [place] [phone] Aug, Diabetes E11.9 [facility] [address] [id number] [address] [place] [phone] Aug, [facility] [address] [facility] [id number] [place] [phone] Aug, Acute non-recurrent pansinus itis J01.40 and Non- recurrent acute suppurative otitis media of left ear without spontaneous rupture of tympanic membrane H66.002 [facility] [address] [facility] [id number] [place] [phone] Aug, [facility] [address] [id number] [address] [place] [phone] Aug, assisted (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 a 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 Z79.01 [facility] [address] [facility] [id number] [place] [phone] Aug, assisted (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 a 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 Z79.01 [facility] [address] [facility] [id number] [place] [phone] Jul, 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 M19.90 [facility] [address] [id number] [address] [place] [phone] Jul, 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 M19.90 [facility] [address] [id number] [address] [place] [phone] Jun, [facility] [address] [id number] [address] [place] [id number] Jun, Chronic atrial fibrillation I48.2 [facility] [address] [id number] [address] [place] [id number] Jun, 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 M19.90 [facility] [address] [id number] [address] [place] [phone] Jun, Chronic atrial fibrillation I48.2 [facility] [address] [id number] [address] [place] [phone] May, 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 M19.90 [facility] [address] [id number] [address] [place] [phone] May, Chronic atrial fibrillation I48.2 [facility] [address] [id number] [address] [place] [phone] Apr, 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 M19.90 [facility] [address] [id number] [address] [place] [phone] Mar, Chronic atrial fibrillation I48.2 [facility] [address] [id number] [address] [place] [phone] Mar, Chronic atrial fibrillation I48.2 [facility] [address] [id number] [address] [place] [phone] Mar, 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 M19.90 [facility] [address] [id number] [address] [place] [phone] Mar, Chronic atrial fibrillation I48.2 [facility] [address] [id number] [address] [place] [phone] Mar, Type 2 diabetes mellitus wit h hyperglycemia, without long-term current use of insulin E11.65 ; Chronic atrial fibrillation I48.2 and Morbid obesity E66.01 [facility] [address] [facility] [id number] [place] [phone] Feb, 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 M19.90 [facility] [address] [facility] [id number] [place] [phone] Feb, Chronic atrial fibrillation I48.2 [facility] [address] [facility] [id number] [place] [phone] Feb, Hyperglycemia R73.9 ; Diabet es E11.9 ; Morbid obesity E66.01 ; Acquired hypothyroidism E03.9 ; 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 M19.90 and High risk medication use Z79.899 [facility] [address] [facility] [id number] [place] [phone] Feb, Chronic atrial fibrillation I48.2 [facility] [address] [facility] [id number] [place] [phone] Jan, 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 M19.90 [facility] [address] [facility] [id number] [place] [phone] Jan, Chronic atrial fibrillation I48.2 [facility] [address] [facility] [id number] [place] [phone] Jan, Chronic atrial fibrillation I48.2 [facility] [address] [facility] [id number] [place] [phone] Jan, Chronic atrial fibrillation I48.2 [facility] [address] [facility] [id number] [place] [phone] Jan, assisted (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 a 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 Z79.01 [facility] [address] [id number] [address] [place] [phone] December, [facility] [address] [facility] [id number] [place] [phone] December, [facility] [address] [facility] [id number] [place] [phone] December, 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 M19.90 [facility] [address] [id number] [address] [place] [phone] Nov, [facility] [address] [facility] [id number] [place] [phone] Nov, 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 M19.90 [facility] [address] [facility] [id number] [place] [phone] Oct, 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 M19.90 [facility] [address] [id number] [address] [place] [phone] Sep, 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 M19.90 [facility] [address] [facility] [id number] [place] [phone] Sep, 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 ; BMI 45.0-49.9, adult Z68.42 ; Diabetes E11.9 ; Chronic atrial fibrillation I48.2 and Chronic obstructive pulmonary disease, unspecified COPD type J44.9 [facility] [address] [facility] [id number] [place] [phone] Sep, Diabetes E11.9 ; assisted ( 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.01 ; Chronic atrial fibrillation I48.2 ; Chronic obstructive pulmonary disease, unspecified COPD type J44.9 and BMI 45.0-49.9, adult Z68.42 [facility] [address] [facility] [id number] [place] [phone] Aug, 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 M19.90 [facility] [address] [id number] [address] [place] [phone] Aug, [facility] [address] [facility] [id number] [place] [phone] Aug, assisted (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 a 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 Z79.01 ; BMI 45.0-49.9, adult Z68.42 ; Diabetes E11.9 and Chronic atrial fibrillation I48.2 [facility] [address] [id number] [address] [place] [phone] Aug, [facility] [address] [id number] [address] [place] [phone] Jul, 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 M19.90 [facility] [address] [facility] [id number] [place] [phone] Jun, 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 M19.90 [facility] [address] [facility] [id number] [place] [address] Jun, 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 [facility] [address] [facility] [id number] [place] [phone] Jun, Chronic atrial fibrillation I48.2 and assisted (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.01 [facility] [address] [facility] [id number] [place] [phone] Jun, 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 M19.90 [facility] [address] [facility] [id number] [place] [phone] May, Encounter for immunization Z 23 [facility] [address] [facility] [id number] [place] [phone] May, 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 [facility] [address] [facility] [id number] [place] [phone] May, 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 M19.90 [facility] [address] [facility] [id number] [place] [phone] May, [facility] [address] [facility] [id number] [place] [phone] May, Diabetes E11.9 ; 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 ; Chronic atrial fibrillation I48.2 ; BMI 45.0-49.9, adult Z68.42 ; 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 M19.90 ; Low back pain M54.5 and Other chronic pain G89.29 [facility] [address] [facility] [id number] [place] [phone] 20 Apr, 2018 Chronic atrial fibrillation I48.2 [facility] [address] [id number] [address] [place] [phone] 13 Apr, 2018 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 [facility] [address] [id number] [address] [place] [phone] 07 Apr, 2018 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 M19.90 [facility] [address] [id number] [address] [place] [phone] 04 Apr, 2018 assisted (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 a 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 Z79.01 and Chronic atrial fibrillation I48.2 [facility] [address] [id number] [address] [place] [phone] Mar, 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 M19.90 [facility] [address] [facility] [id number] [place] [address] Feb, 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 M19.90 [facility] [address] [id number] [address] [place] [phone] Jan, 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 M19.90 [facility] [address] [id number] [address] [place] [phone] December, [facility] [address] [facility] [id number] [place] [phone] December, 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 M19.90 [facility] [address] [facility] [id number] [place] [phone] Nov, Diabetes E11.9 ; 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 ; Acquired hypothyroidism E03.9 ; Cigarette nicotine dependence without complication F17.210 ; 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 M19.90 ; BMI 45.0-49.9, adult Z68.42 and Chronic atrial fibrillation I48.2 [facility] [address] [facility] [id number] [place] [phone] Nov, 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 M19.90 [facility] [address] [facility] [id number] [place] [phone] Oct, 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 M19.90 [facility] [address] [facility] [id number] [place] [phone] Oct, 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 [facility] [address] [id number] [address] [place] [phone] Sep, 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 M19.90 [facility] [address] [facility] [id number] [place] [phone] Sep, [facility] [address] [facility] [id number] [place] [phone] Aug, 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 M19.90 [facility] [address] [facility] [id number] [place] [phone] Jul, 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 M19.90 [facility] [address] [facility] [id number] [place] [phone] Jul, 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 M19.90 [facility] [address] [facility] [id number] [place] [phone] Jun, Diabetes E11.9 ; Encounter f or immunization Z23 ; 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 ; Chronic atrial fibrillation I48.2 ; 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 M19.90 ; Tobacco abuse Z72.0 and Bug bite, initial encounter W57.XXXA [facility] [address] [facility] [id number] [place] [phone] May, 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 M19.90 [facility] [address] [facility] [id number] [place] [phone] Apr, 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 M19.90 [facility] [address] [facility] [id number] [place] [phone] Mar, Chronic atrial fibrillation I48.2 [facility] [address] [facility] [id number] [place] [phone] Mar, [facility] [address] [place] [id number] [address] [place] [phone] Mar, 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 M19.90 [facility] [address] [id number] [address] [place] [phone] Mar, assisted (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 a 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 Z79.01 and Chronic atrial fibrillation I48.2 [facility] [address] [id number] [address] [place] [phone] Mar, Chronic atrial fibrillation I48.2 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 [facility] [address] [id number] [address] [place] [phone] Mar, assisted (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 a 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 Z79.01 [place] [address] [id number] [address] [place] [phone] Mar, 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 [place] [address] [id number] [address] [place] [address] Mar, 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 M19.90 [place] [address] [id number] [address] [place] [phone] Feb, Encounter for screening mamm ogram for malignant neoplasm of breast Z12.31 [place] [address] [id number] [address] [place] [phone] Feb, 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 M19.90 [place] [address] [id number] [address] [place] [phone] Jan, [place] [address] [id number] [address] [place] [address] Jan, assisted (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 a 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 Z79.01 ; Diabetes E11.9 ; 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 M19.90 and Breast cancer screening Z12.39 [place] [address] [id number] [address] [place] [id number] Jan, 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 M19.90 [place] [address] [facility] [id number] [place] [phone] Jan, 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 M19.90 [facility] [address] [id number] [address] [place] [phone] Jan, [facility] [address] [facility] [id number] [place] [phone] December, 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 M19.90 [facility] [address] [facility] [id number] [place] [phone] December, 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 M19.90 [facility] [id number] [place] [id number] Nov, [facility] [address] [id number] [address] [place] [phone] Nov, [facility] [address] [facility] [id number] [place] [phone] Nov, [facility] [address] [facility] [id number] [place] [phone] Nov, Diabetes E11.9 [facility] [address] [facility] [id number] [place] [phone] Nov, [facility] [address] [facility] [id number] [place] [phone] Oct, 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 M19.90 [facility] [address] [facility] [id number] [place] [address] Oct, 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 M19.90 ; 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 ; Diabetes E11.9 ; Cigarette nicotine dependence without complication F17.210 and Chronic atrial fibrillation I48.2 [facility] [address] [id number] [address] [place] [phone] Aug, [facility] [address] [facility] [id number] [place] [phone] Aug, assisted (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 a 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 Z79.01 [facility] [address] [facility] [id number] [place] [phone] Aug, [facility] [address] [id number] [id number] Aug, [facility] [address] [place] [id number] [address] [place] [phone] Aug, [facility] [address] [facility] [id number] [place] [phone] Aug, [facility] [id number] [id number] Aug, [facility] [address] [place] [id number] Aug 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 M19.90 and Essential hypertension I10 [place] [address] [address] Aug, Other urinary incontinence N 39.498 [place] [address] [place] [id number] [address] [place] [phone] Jul, 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 M19.90 [place] [address] [place] [id number] [address] [place] [id number] Jun, Diabetes E11.9 ; Encounter f or immunization Z23 ; 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 M19.90 ; 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 ; Cigarette nicotine dependence without complication F17.210 ; Acquired hypothyroidism E03.9 ; Morbid obesity, unspecified obesity type E66.01 and Irregular heart beats I49.9 [place] [address] [place] [id number] [address] [place] [phone] Jun, 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 M19.90 [place] [address] [place] [id number] [address] [place] [phone] May, 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 M19.90 [place] [address] [place] [id number] [address] [place] [phone] May, Urinary incontinence, unspec ified type R32 [place] [address] [place] [id number] [address] [place] [phone] May, [facility] [address] [place] [id number] [address] [place] [address] Apr, 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 M19.90 [facility] [address] [id number] [address] [place] [phone] Apr, 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 [facility] [address] [id number] [address] [place] [phone] Apr, [facility] [address] [facility] [id number] [place] [phone] Apr, 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 M19.90 [facility] [address] [id number] [address] [place] [phone] Mar, Diabetes E11.9 ; Hypothyroid ism, unspecified type E03.9 ; 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 M19.90 ; High risk medication use Z79.899 ; Cigarette nicotine dependence without complication F17.210 and Morbid obesity, unspecified obesity type E66.01 [facility] [address] [id number] [address] [place] [phone] Mar, 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 M19.90 [facility] [address] [id number] [address] [place] [phone] December, 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 M19.90 [facility] [address] [facility] [id number] [place] [phone] December, [facility] [address] [id number] [address] [place] [phone] Oct, [facility] [address] [id number] [address] [place] [phone] Oct, [facility] [address] [id number] [address] [place] [phone] Aug, [facility] [address] [id number] [address] [place] [phone] Jul, [facility] [address] [facility] [id number] [place] [phone] Jul, [facility] [address] [id number] [address] [place] [phone] Jul, Diabetes E11.9 ; Encounter f or immunization Z23 ; Abnormal mammogram R92.8 ; Acquired hypothyroidism E03.9 ; High risk medication use Z79.899 ; 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 M19.90 and Cigarette nicotine dependence without complication F17.210 [facility] [address] [facility] [id number] [place] [phone] Jul, [facility] [address] [id number] [address] [place] [phone] Jun, Abnormal mammogram R92.8 [facility] [address] [facility] [id number] [place] [phone] Apr, [facility] [address] [facility] [id number] [place] [phone] Apr, [facility] [address] [id number] [address] [place] [phone] Mar, [facility] [address] [id number] [address] [place] [phone] Mar, 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 [facility] [address] [id number] [address] [place] [phone] Feb, [facility] [address] [facility] [id number] [place] [phone] Jan, [facility] [address] [facility] [id number] [place] [phone] December, [facility] [address] [facility] [id number] [place] [phone] Nov, [facility] [address] [id number] [address] [place] [phone] Nov, [facility] [address] [facility] [id number] [place] [phone] Oct, [facility] [address] [id number] [address] [place] [phone] Oct, [facility] [address] [id number] [facility] [place] [phone] Oct, [facility] [address] [id number] [address] [place] [address], [place] [phone] Oct, [facility] [address] [id number] [address] [place] [address], [place] [phone] Oct, [facility] [address] [id number] [address] [place] [address], [place] [address] Oct, [facility] [address] [id number] [address] [place] [address], [place] [address] Sep, [facility] [address] [id number] [address] [place] [address], [place] [address] Sep, [facility] [address] [id number] [address] [place] [address], [place] [address] Sep, [facility] [address] [id number] [address] [place] [address], [place] [address] Sep, [facility] [address] [id number] [address] [place] [address], [place] [address] Aug, [facility] [address] [id number] [address] [place] [address], [place] [address] Aug, [facility] [address] [id number] [address] [place] [address], [place] [address] Aug, [facility] [address] [id number] [address] [place] [address], [place] [address] Aug, [facility] [address] [id number] [address] [place] [address], [place] [address] Aug, [facility] [address] [id number] [address] [place] [address], [place] [address] Aug, [facility] [address] [id number] [address] [place] [address], [place] [address] Jul, [facility] [address] [id number] [address] [place] [address], [place] [address] Jul, [facility] [address] [id number] [address] [place] [address], [place] [address] Jul, [facility] [address] [id number] [address] [place] [address], [place] [address] Jul, [facility] [address] [id number] [address] [place] [address], [place] [address] Jul, [facility] [address] [id number] [address] [place] [address], [place] [address] Jul, [facility] [address] [id number] [address] [place] [address], [place] [address] Jun, [facility] [address] [id number] [address] [place] [address], [place] [address] Jun, [facility] [address] [id number] [address] [place] [address], [place] [address] Jun, [facility] [address] [id number] [address] [place] [address], [place] [address] Jun, [facility] [address] [id number] [address] [place] [address], [place] [address] Jun, [facility] [address] [id number] [address] [place] [address], [place] [address] Jun, [facility] [address] [id number] [address] [place] [address], [place] [address] Jun, [facility] [address] [id number] [address] [place] [address], [place] [address] Jun, [facility] [address] [id number] [address] [place] [address], [place] [address] Jun, [facility] [address] [id number] [address] [place] [address], [place] [address] May, [facility] [address] [id number] [address] [place] [address], [place] [address] May, [facility] [address] [id number] [address] [place] [address], [place] [address] Apr, 2013 [facility] [address] [id number] [address] [place] [address], [place] [address] Apr, [facility] [address] [id number] [address] [place] [address], [place] [address] Apr, 2013 [facility] [address] [id number] [address] [place] [address], [place] [address] Apr, 2013 [facility] [address] [id number] [address] [place] [address], [place] [address] Apr, [facility] [address] [id number] [address] [place] [address], [place] [address] Apr, [facility] [address] [id number] [address] [place] [address], [place] [address] Apr, [facility] [address] [id number] [address] [place] [address], [place] [address] Apr, [facility] [address] [id number] [address] [place] [address], [place] [address] Apr, [facility] [address] [id number] [address] [place] [address], [place] [address] Apr, [facility] [address] [id number] [address] [place] [address], [place] [address] Mar, [facility] [address] [id number] [address] [place] [address], [place] [address] Mar, [facility] [address] [id number] [address] [place] [address], [place] [address] Mar, [facility] [address] [id number] [address] [place] [address], [place] [address] Mar, [facility] [address] [id number] [address] [place] [address], [place] [address] Mar, [facility] [address] [id number] [address] [place] [address], [place] [address] Mar, [facility] [address] [id number] [address] [place] [address], [place] [address] Feb, [facility] [address] [id number] [address] [place] [address], [place] [address] Feb, [facility] [address] [id number] [address] [place] [address], [place] [address] Feb, [facility] [address] [id number] [address] [place] [address], [place] [address] Feb, [facility] [address] [id number] [address] [place] [address], [place] [address] Jan, [facility] [address] [id number] [address] [place] [address], [place] [address] Jan, [facility] [address] [id number] [address] [place] [address], [place] [address] Jan, [facility] [address] [id number] [address] [place] [address], [place] [address] Jan, [facility] [address] [id number] [address] [place] [address], [place] [address] Oct, [facility] [address] [id number] [address] [place] [address], [place] [address] Oct, [facility] [address] [id number] [address] [place] [address], [place] [address] Sep, [facility] [address] [id number] [address] [place] [address], [place] [address] Sep, [facility] [address] [id number] [address] [place] [address], [place] [address] Sep, [facility] [address] [id number] [address] [place] [address], [place] [address] Sep, [facility] [address] [id number] [address] [place] [address], [place] [address] Aug, [facility] [address] [id number] [address] [place] [address], [place] [address] Aug, [facility] [address] [id number] [address] [place] [address], [place] [address] Aug, [facility] [address] [id number] [address] [place] [address], [place] [address] Aug, [facility] [address] [id number] [address] [place] [address], [place] [address] Jul, [facility] [address] [id number] [address] [place] [address], [place] [address] Jul, [facility] [address] [id number] [address] [place] [address], [place] [address] Jul, [facility] [address] [id number] [address] [place] [address], [place] [address] Jul, [facility] [address] [id number] [address] [place] [address], [place] [address] Jul, [facility] [address] [id number] [address] [place] [address], [place] [address] Jul, [facility] [address] [id number] [address] [place] [address], [place] [address] Jun, [facility] [address] [id number] [address] [place] [address], [place] [address] Jun, [facility] [address] [id number] [address] [place] [address], [place] [address] Jun, [facility] [address] [id number] [address] [place] [address], [place] [address] Jun, [facility] [address] [id number] [address] [place] [address], [place] [address] Jun, [facility] [address] [id number] [address] [place] [address], [place] [address] Jun, [facility] [address] [id number] [address] [place] [address], [place] [address] May, [facility] [address] [id number] [address] [place] [address], [place] [address] May, [facility] [address] [id number] [address] [place] [address], [place] [address] May, [facility] [address] [id number] [address] [place] [address], [place] [address] May, [facility] [address] [id number] [address] [place] [address], [place] [address] May, [facility] [address] [id number] [address] [place] [address], [place] [address] May, [facility] [address] [id number] [address] [place] [address], [place] [address] May, [facility] [address] [id number] [address] [place] [address], [place] [address] May, [facility] [address] [id number] [address] [place] [address], [place] [address] Apr, [facility] [address] [id number] [address] [place] [address], [place] [address] Apr, [facility] [address] [id number] [address] [place] [address], [place] [address] Mar, [facility] [address] [id number] [address] [place] [address], [place] [address] Mar, [facility] [address] [id number] [address] [place] [address], [place] [address] Mar, [facility] [address] [id number] [address] [place] [address], [place] [address] Mar, [facility] [address] [id number] [address] [place] [address], [place] [address] Feb, [facility] [address] [id number] [address] [place] [address], [place] [address] Jan, [facility] [address] [id number] [address] [place] [address], [place] [address] December, [facility] [address] [id number] [address] [place] [address], [place] [address] December, [facility] [address] [id number] [address] [place] [address], [place] [address] December, [facility] [address] [id number] [address] [place] [address], [place] [address] Nov, [facility] [address] [id number] [address] [place] [address], [place] [address] Nov, [facility] [address] [id number] [address] [place] [address], [place] [address] 14 Sep, 2012 [facility] [address] [id number] [address] [place] [address], [place] [address] 14 Sep, 2012 [facility] [address] [id number] [address] [place] [address], [place] [address] 14 Sep, 2012 [facility] [address] [id number] [address] [place] [address], [place] [address] Sep, [facility] [address] [id number] [address] [place] [address], [place] [address] Aug, [facility] [address] [id number] [address] [place] [address], [place] [address] Aug, [facility] [address] [id number] [address] [place] [address], [place] [address] Aug, [facility] [address] [id number] [address] [place] [address], [place] [address] Aug, [facility] [address] [id number] [address] [place] [address], [place] [address] Jul, [facility] [address] [id number] [address] [place] [address], [place] [address] Jul, [facility] [address] [id number] [address] [place] [address], [place] [address] Jul, [facility] [address] [id number] [address] [place] [address], [place] [address] Jul, [facility] [address] [id number] [address] [place] [address], [place] [address] Jun, [facility] [address] [id number] [address] [place] [address], [place] [address] Jun, [facility] [address] [id number] [address] [place] [address], [place] [address] Jun, [facility] [address] [id number] [address] [place] [address], [place] [address] Jun, [facility] [address] [id number] [address] [place] [address], [place] [address] May, [facility] [address] [id number] [address] [place] [address], [place] [address] May, [facility] [address] [id number] [address] [place] [address], [place] [address] May, [facility] [address] [id number] [address] [place] [address], [place] [address] May, [facility] [address] [id number] [address] [place] [address], [place] [address] May, [facility] [address] [id number] [address] [place] [address], [place] [address] 10 Apr, 2012 [facility] [address] [id number] [address] [place] [address] 08 Apr, 2012 [facility] [address] [id number] [address] [place] [address], [place] [address] 07 Apr, 2012 [facility] [address] [id number] [address] [place] [address], [place] [address] 06 Apr, 2012 [facility] [address] [id number] [address] [place] [address], [place] [address] Mar, [facility] [address] [id number] [address] [place] [address], [place] [address] Mar, [facility] [address] [id number] [address] [place] [address], [place] [address] Feb, [facility] [address] [id number] [address] [place] [address], [place] [address] Feb, [facility] [address] [id number] [address] [place] [address], [place] [address] Feb, [facility] [address] [id number] [address] [place] [address], [place] [address] Jan, [facility] [address] [id number] [address] [place] [address], [place] [address] Jan, [facility] [address] [id number] [address] [place] [address], [place] [address] December, [facility] [address] [id number] [address] [place] [address], [place] [address] December, [facility] [address] [id number] [address] [place] [address], [place] [address] Nov, [facility] [address] [id number] [address] [place] [address], [place] [address] Oct, [facility] [address] [id number] [address] [place] [address], [place] [address] Oct, [facility] [address] [id number] [address] [place] [address], [place] [address] Sep, [facility] [address] [id number] [address] [place] [address], [place] [address] Sep, [facility] [address] [id number] [address] [place] [address], [place] [address] Aug, [facility] [address] [id number] [address] [place] [address], [place] [address] Aug, [facility] [address] [id number] [address] [place] [address], [place] [address] Jul, [facility] [address] [id number] [address] [place] [address], [place] [address] Jul, [facility] [address] [id number] [address] [place] [address], [place] [address] Jul, [facility] [address] [id number] [address] [place] [address], [place] [address] Jun, [facility] [address] [id number] [address] [place] [address], [place] [address] Jun, [facility] [address] [id number] [address] [place] [address], [place] [address] 13 May, 2011 [facility] [address] [id number] [address] [place] [address], [place] [address] May, [facility] [address] [id number] [address] [place] [address], [place] [address] May, [facility] [address] [id number] [address] [place] [address], [place] [address] Jul, [facility] [address] [id number] [address] [place] [address], [place] [address] Jul, [facility] [address] [id number] [address] [place] [address], [place] [address] Jun, [facility] [address] [id number] [address] [place] [address], [place] [address] May, [facility] [address] [id number] [address] [place] [address], [place] [address] May, [facility] [address] [id number] [address] [place] [address], [place] [address] Aug, [facility] [address] [id number] [address] [place] [address], [place] [address] Jul, [facility] [address] [id number] [address] [place] [address], [place] [phone] Jun, [facility] [address] [id number] [address] [place] [phone] Jun, [facility] [address] [facility] [id number] [place] [phone] Jun, [facility] [address] [facility] [id number] [place] [phone] Jun, [facility] [address] [facility] [id number] [place] [phone] Jun, [facility] [address] [facility] [id number] [place] [phone] May, [facility] [address] [facility] [id number] [place] [phone] Sep, IMMUNIZATIONS No Known Immunizations SOCIAL HISTORY Never Assessed REASON FOR VISIT PLAN OF CARE VITAL SIGNS Height 64 in 2014-06-20 Weight 263.31 lbs 2014-06-20 Temperature 97.9 degrees Fahrenheit 2014-06-20 Heart Rate 88 bpm 2014-06-20 Respiratory Rate 22 2014-06-20 Blood pressure systolic 132 mmHg 2014-06-20 Blood pressure diastolic 76 mmHg 2014-06-20 MEDICATIONS Unknown Medications RESULTS No Results PROCEDURES Procedure Date Ordered Result Body Site COMPLETE CBC W/AUTO DIFF WBC Jun 20, 2014 ASSAY THYROID STIM HORMONE Jun 20, 2014 PROTHROMBIN TIME Jun 20, 2014 NATRIURETIC PEPTIDE Jun 20, 2014 ASSAY OF MAGNESIUM Jun 20, 2014 GLYCATED HEMOGLOBIN TEST Jun 20, 2014 LIPID PANEL Jun 20, 2014 COMPREHEN METABOLIC PANEL Jun 20, 2014 CHEST X-RAY Jun 20, 2014 COMPUTER DX MAMMOGRAM ADD-ON Jun 20, 2014 ELECTROCARDIOGRAM, TRACING Jun 20, 2014 VENIPUNCT, ROUTINE* Jun 20, 2014 INSTRUCTIONS MEDICATIONS ADMINISTERED No Known Medications MEDICAL (GENERAL) HISTORY Type Description Date Medical History type 2 diabetes Medical History hypertension Medical History asthma/COPD Medical History arthritis Medical History hypothyroidism Surgical History hysterectomy Surgical History tubal ligation Surgical History thyroidectomy Surgical History cholecystectomy Surgical History appendectomy Surgical History total knee replacments 2015 and 2016 Hospitalization History bronchitis 2012
--- OUTSIDE RECORDS SUMMARY | 2020-01-28 14:24 | XMS REPORT ---
Author Author Katarina RODRIGUEZ Organization [facility], [place] Address [address] [place] [address] Care Team Providers Care Fitness Instructor Name Role Phone GEORGINA RODRIGUEZ Unavailable PROBLEMS Type Condition ICD9-CM Code DDD26-YU Code Onset Dates Condition S tatus SNOMED Code Problem 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 M19.90 Active 48663 5006 Problem Chronic obstructive pulmonary disease, unspecified COPD ty pe J44.9 Active 65868618 Problem Acquired hypothyroidism E03.9 Active 202896986 Problem Cigarette nicotine dependence without complication F17.210 Active 68354988 Problem Diabetes E11.9 Active 785779981 Problem High risk medication use Z79.899 Activ e 453642140 Problem Urinary incontinence, unspecified type R32 Active 087460901 Problem long-term (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.01 Active 861365922 Problem Morbid obesity, unspecified obesity type E66.01 Active 913952555 Problem Other chronic pain G89.29 Active 8 5562936 Problem History of cataract surgery Z98.49 Ac tive 845491340 Problem Type 2 diabetes mellitus wit h hyperglycemia, without long-term current use of insulin E11.65 Active 46747621 Problem Encounter for immunization Z23 Act essie 628044673 Problem Irregular heart beats I49.9 Active 328360004 Problem Other urinary incontinence N39.498 Act essie 164691699 Problem Essential hypertension I10 Active 79275918 Problem Chronic atrial fibrillation I48.2 Ac tive 342134035 ALLERGIES No Information ENCOUNTERS Encounter Location Date Diagnosis [facility], [place] [address] [facility] [id number] [address] [place] [phone] Oct, [facility] [place] [address] [facility] [id number] [address] [place] [phone] Oct, long-term (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 a 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 Z79.01 [facility], [place] [address] [id number] [address] [place] [phone] Oct, 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 Z79.01 [facility], [place] [address] [id number] [address] [place] [address] Sep, [facility] [place] [address] [id number] [address] [place] [address] Aug, 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 M19.90 [facility] [place] [address] [id number] [address] [place] [address] Aug, Diabetes E11.9 ; long-term ( 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.01 ; Tobacco abuse Z72.0 ; Low back pain M54.5 and Chronic atrial fibrillation I48.2 [place] [address] [id number] [address] [place] [address] Aug, Diabetes E11.9 [facility], [place] [address] [facility] [id number] [address] [place] [address] Aug, [facility] [address] [id number] [address] [place] [phone] 08 Aug, 2019 Acute non-recurrent pansinus itis J01.40 and Non- recurrent acute suppurative otitis media of left ear without spontaneous rupture of tympanic membrane H66.002 [place] [address] [id number] [address] [place] [address] Aug, [facility] [place] [address] [id number] [address] [place] [phone] Aug, 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 Z79.01 [facility] [place] [address] [id number] [address] [place] [address] Aug, 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 Z79.01 [facility] [place] [address] [id number] [address] [place] [address] Jul, 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 M19.90 [facility] [place] [address] [facility] [id number] [address] [place] [address] Jul, 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 M19.90 [facility] [place] [address] [id number] [address] [place] [address] Jun, [facility] [place] [address] [id number] [address] [place] [address] Jun, Chronic atrial fibrillation I48.2 [facility] [place] [address] [facility] [id number] [address] [place] [address] Jun, 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 M19.90 [facility] [place] [address] [id number] [address] [place] [address] Jun, Chronic atrial fibrillation I48.2 [facility] [place] [address] [id number] [address] [place] [address] May, 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 M19.90 [facility] [place] [address] [facility] [id number] [address] [place] [phone] May, Chronic atrial fibrillation I48.2 [facility] [place] [address] [id number] [address] [place] [address] Apr, 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 M19.90 [facility] [place] [address] [facility] [id number] [address] [place] [address] Mar, Chronic atrial fibrillation I48.2 [facility] [place] [address] [facility] [id number] [address] [place] [address] Mar, Chronic atrial fibrillation I48.2 [facility] [place] [address] [facility] [id number] [address] [place] [address] Mar, 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 M19.90 [facility] [place] [address] [facility] [id number] [address] [place] [address] Mar, Chronic atrial fibrillation I48.2 [facility] [place] [address] [facility] [id number] [address] [place] [address] Mar, Type 2 diabetes mellitus wit h hyperglycemia, without long-term current use of insulin E11.65 ; Chronic atrial fibrillation I48.2 and Morbid obesity E66.01 [facility] [place] [address] [id number] [address] [place] [address] Feb, 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 M19.90 [facility] [place] [address] [id number] [address] [place] [address] Feb, Chronic atrial fibrillation I48.2 [facility] [place] [address] [id number] [address] [place] [address] Feb, Hyperglycemia R73.9 ; Diabet es E11.9 ; Morbid obesity E66.01 ; Acquired hypothyroidism E03.9 ; 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 M19.90 and High risk medication use Z79.899 [facility] [place] [address] [id number] [address] [place] [address] Feb, Chronic atrial fibrillation I48.2 [facility] [place] [address] [id number] [address] [place] [address] Jan, 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 M19.90 [facility] [place] [address] [id number] [address] [place] [address] Jan, Chronic atrial fibrillation I48.2 [facility] [place] [address] [id number] [address] [place] [phone] Jan, Chronic atrial fibrillation I48.2 [facility] [place] [address] [id number] [address] [place] [address] Jan, Chronic atrial fibrillation I48.2 [facility] [place] [address] [facility] [id number] [address] [place] [phone] Jan, long-term (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 a 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 Z79.01 [facility], [place] [address] [id number] [address] [place] [phone] December, [facility] [place] [address] [id number] [address] [place] [id number] December, [facility] [place] [address] [facility] [id number] [address] [place] [address] December, 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 M19.90 [facility] [place] [address] [id number] [address] [place] [address] Nov, [facility] [place] [address] [id number] [address] [place] [address] Nov, 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 M19.90 [facility] [place] [address] [id number] [address] [place] [address] Oct, 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 M19.90 [facility] [place] [address] [facility] [id number] [address] [place] [address] Sep, 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 M19.90 [facility] [place] [address] [facility] [id number] [address] [place] [address] Sep, long-term (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 a 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 Z79.01 ; BMI 45.0-49.9, adult Z68.42 ; Diabetes E11.9 ; Chronic atrial fibrillation I48.2 and Chronic obstructive pulmonary disease, unspecified COPD type J44.9 [facility] [place] [address] [facility] [id number] [address] [place] [address] Sep, Diabetes E11.9 ; long-term ( 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.01 ; Chronic atrial fibrillation I48.2 ; Chronic obstructive pulmonary disease, unspecified COPD type J44.9 and BMI 45.0-49.9, adult Z68.42 [facility], [place] [address] [facility] [id number] [address] [place] [address] Aug, 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 M19.90 [facility], [place] [address] [facility] [id number] [address] [place] [phone] Aug, [facility] [place] [address] [facility] [id number] [address] [place] [address] Aug, long-term (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 a 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 Z79.01 ; BMI 45.0-49.9, adult Z68.42 ; Diabetes E11.9 and Chronic atrial fibrillation I48.2 [facility] [address] [facility] [id number] [address] [place] [address] Aug, [facility] [place] [address] [id number] [address] [place] [address] Jul, 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 M19.90 [facility] [place] [address] [id number] [address] [place] [address] Jun, 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 M19.90 [facility] [place] [address] [facility] [id number] [address] [place] [address] Jun, long-term (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 a 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 Z79.01 [facility] [place] [address] [facility] [id number] [address] [place] [address] Jun, Chronic atrial fibrillation I48.2 and 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.01 [place] [address] [facility] [id number] [address] [place] [address] Jun, 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 M19.90 [place] [address] [place] [id number] [place] [phone] May, Encounter for immunization Z 23 [facility] [place] [address] [facility] [id number] [address] [place] [phone] May, 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 Z79.01 [facility] [place] [address] [facility] [id number] [address] [place] [address] May, 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 M19.90 [place] [id number] [place] [id number] [address] [place] [phone] May, [facility] [place] [address] [facility] [id number] [address] [place] [address] May, Diabetes E11.9 ; long-term ( 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.01 ; Chronic atrial fibrillation I48.2 ; BMI 45.0-49.9, adult Z68.42 ; 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 M19.90 ; Low back pain M54.5 and Other chronic pain G89.29 [facility] [place] [address] [facility] [id number] [address] [place] [phone] Apr, Chronic atrial fibrillation I48.2 [place] [address] [facility] [id number] [address] [place] [phone] 13 Apr, 2018 long-term (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 a 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 Z79.01 [facility], [place] [address] [id number] [address] [place] [phone] 07 Apr, 2018 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 M19.90 [facility] [place] [address] [id number] [address] [place] [phone] 04 Apr, 2018 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 Z79.01 and Chronic atrial fibrillation I48.2 [facility] [place] [address] [id number] [address] [place] [address] Mar, 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 M19.90 [facility] [place] [address] [id number] [address] [place] [address] Feb, 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 M19.90 [facility] [place] [address] [facility] [id number] [address] [place] [address] Jan, 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 M19.90 [facility] [place] [address] [id number] [address] [place] [address] December, [facility] [place] [address] [id number] [address] [place] [address] December, 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 M19.90 [facility] [place] [address] [facility] [id number] [address] [place] [address] Nov, Diabetes E11.9 ; long-term ( 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.01 ; Acquired hypothyroidism E03.9 ; Cigarette nicotine dependence without complication F17.210 ; 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 M19.90 ; BMI 45.0-49.9, adult Z68.42 and Chronic atrial fibrillation I48.2 [facility], [place] [address] [id number] [address] [place] [address] Nov, 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 M19.90 [facility] [place] [address] [id number] [address] [place] [address] Oct, 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 M19.90 [facility] [place] [address] [facility] [id number] [address] [place] [phone] Oct, 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 Z79.01 [facility] [place] [address] [facility] [id number] [address] [place] [address] Sep, Osteoarthritis M19.90 [facility] [place] [address] [facility] [id number] [address] [place] [address] Sep, [facility] [place] [address] [place] [id number] [address] [place] [phone] Aug, Osteoarthritis M19.90 [facility] [place] [address] [facility] [id number] [address] [place] [address] Jul, Osteoarthritis M19.90 [facility] [place] [address] [address] Jul, Osteoarthritis M19.90 [facility] [place] [address] [address] Jun, Diabetes E11.9 ; Encounter f or immunization Z23 ; 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.01 ; Chronic atrial fibrillation I48.2 ; Osteoarthritis M19.90 ; Tobacco abuse Z72.0 and Bug bite, initial encounter W57.XXXA [facility] [place] [address] [address] May, Osteoarthritis M19.90 [facility] [place] [address] [address] Apr, Osteoarthritis M19.90 [facility] [place] [address] [place] [id number] [address] [place] [address] Mar, Chronic atrial fibrillation I48.2 [facility] [place] [address] [place] [id number] [place] [phone] Mar, [facility] [place] [address] [place] [id number] [address] [place] [address] Mar, Osteoarthritis M19.90 [facility] [place] [address] [place] [id number] [address] [place] [address] Mar, long-term (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 a 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 Z79.01 and Chronic atrial fibrillation I48.2 [facility] [place] [address] [id number] [address] [place] [address] Mar, Chronic atrial fibrillation I48.2 and 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.01 [facility] [place] [address] [id number] [address] [place] [address] Mar, 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 Z79.01 [place] [address] [id number] [address] [place] [address] Mar, 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 Z79.01 [place] [address] [id number] [address] [place] [address] Mar, Osteoarthritis M19.90 [place] [address] [id number] [address] [place] [phone] Feb, Encounter for screening mamm ogram for malignant neoplasm of breast Z12.31 [place] [address] [id number] [address] [place] [address] Feb, Osteoarthritis M19.90 [place] [address] [id number] [address] [place] [address] Jan, [place] [address] [id number] [address] [place] [address] Jan, long-term (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 a 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 Z79.01 ; Diabetes E11.9 ; Osteoarthritis M19.90 and Breast cancer screening Z12.39 [place] [address] [id number] [address] [place] [address] Jan, Osteoarthritis M19.90 [place] [address] [id number] [address] [place] [address] Jan, Osteoarthritis M19.90 [facility] [place] [address] [facility] [id number] [address] [place] [address] Jan, [facility] [place] [address] [facility] [id number] [address] [place] [address] December, Osteoarthritis M19.90 [facility] [place] [address] [facility] [id number] [address] [place] [address] December, Osteoarthritis M19.90 [facility] [address] [id number] [id number] Nov, [facility] [place] [address] [facility] [id number] [address] [place] [address] Nov, [facility] [place] [address] [facility] [id number] [address] [place] [address] Nov, [facility] [place] [address] [facility] [id number] [address] [place] [address] Nov, Diabetes E11.9 [place] [address] [facility] [id number] [address] [place] [address] Nov, [facility] [place] [address] [facility] [id number] [address] [place] [address] Oct, Osteoarthritis M19.90 [facility] [place] [address] [facility] [id number] [address] [place] [address] Oct, Osteoarthritis M19.90 ; 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.01 ; Diabetes E11.9 ; Cigarette nicotine dependence without complication F17.210 and Chronic atrial fibrillation I48.2 [place] [address] [facility] [id number] [address] [place] [address] Aug, [facility] [place] [address] [facility] [id number] [address] [place] [address] Aug, long-term (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 a 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 Z79.01 [facility] [place] [address] [facility] [id number] [address] [place] [address] Aug, [facility] [address] [id number] [id number] Aug, [place] [address] [place] [id number] [address] [place] [address] Aug, [facility] [place] [address] [address] Aug, [facility] [id number] [place] [id number] Aug, [facility] [address] [place] [id number] Aug Osteoarthritis M19.90 and Essential hypertension I10 [facility] [place] [address] [address] Aug, Other urinary incontinence N 39.498 [place] [address] [address] Jul, Osteoarthritis M19.90 [place] [address] [address] Jun, Diabetes E11.9 ; Encounter f or immunization Z23 ; Osteoarthritis M19.90 ; long-term (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.01 ; Cigarette nicotine dependence without complication F17.210 ; Acquired hypothyroidism E03.9 ; Morbid obesity, unspecified obesity type E66.01 and Irregular heart beats I49.9 [facility] [place] [id number] [place] [address] Jun, Osteoarthritis M19.90 [place] [address] [address] May, Osteoarthritis M19.90 [facility] [place] [address] [address] May, Urinary incontinence, unspec ified type R32 [place] [address] [address] May, [facility] [place] [address] [place] [id number] [address] [place] [address] Apr, Osteoarthritis M19.90 [facility] [place] [address] [address] Apr, 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 Z79.01 [facility] [place] [address] [facility] [id number] [address] [place] [address] Apr, [facility] [place] [address] [facility] [id number] [address] [place] [address] Apr, Osteoarthritis M19.90 [facility] [place] [address] [facility] [id number] [address] [place] [address] Mar, Diabetes E11.9 ; Hypothyroid ism, unspecified type E03.9 ; Osteoarthritis M19.90 ; High risk medication use Z79.899 ; Cigarette nicotine dependence without complication F17.210 and Morbid obesity, unspecified obesity type E66.01 [place] [address] [facility] [id number] [address] [place] [address] Mar, Osteoarthritis M19.90 [place] [address] [facility] [id number] [address] [place] [address] December, Osteoarthritis M19.90 [place] [address] [facility] [id number] [address] [place] [address] December, [place] [address] [facility] [id number] [address] [place] [phone] Oct, [place] [address] [facility] [id number] [address] [place] [address] Oct, [place] [address] [facility] [id number] [address] [place] [phone] Aug, [facility], [place] [address] [facility] [id number] [address] [place] [phone] Jul, [place] [address] [address] [facility] [id number] [address] [place] [phone] Jul, [place] [address] [address] [facility] [id number] [address] [place] [phone] Jul, Diabetes E11.9 ; Encounter f or immunization Z23 ; Abnormal mammogram R92.8 ; Acquired hypothyroidism E03.9 ; High risk medication use Z79.899 ; Osteoarthritis M19.90 and Cigarette nicotine dependence without complication F17.210 [facility], [place] [address] [id number] [address] [place] [phone] Jul, [facility], [place] [address] [facility] [id number] [address] [place] [phone] Jun, Abnormal mammogram R92.8 [facility], [place] [address] [id number] [address] [place] [id number] Apr, [facility], [place] [address] [id number] [address] [place] [phone] Apr, [facility], [place] [address] [id number] [address] [place] [phone] Mar, [facility], [place] [address] [id number] [address] [place] [phone] Mar, 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 use of ferry terminal agent ant 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 V58.61 [facility], [place] [address] [id number] [address] [place] [id number] Feb, [facility], [place] [address] [id number] [address] [place] [id number] Jan, [facility] [place] [address] [facility] [id number] [address] [place] [id number] December, [facility] [place] [address] [id number] [address] [place] [id number] Nov, [facility] [place] [address] [id number] [address] [place] [id number] Nov, [facility] [place] [address] [id number] [address] [place] [id number] Oct, [facility] [place] [address] [id number] [address] [place] [phone] Oct, [facility] [place] [address] [id number] [address] [place] [id number] 17 Oct, 2014 [facility] [address] [id number] [address] [place] [address], [place] [address] 17 Oct, 2014 [facility] [address] [id number] [address] [place] [address], [place] [address] Oct, [facility] [address] [id number] [address] [place] [address], [place] [address] Oct, [facility] [address] [id number] [address] [place] [address], [place] [address] Sep, [facility] [address] [id number] [address] [place] [address], [place] [address] Sep, [facility] [address] [id number] [address] [place] [address], [place] [address] Sep, [facility] [address] [id number] [address] [place] [address], [place] [address] Sep, [facility] [address] [id number] [address] [place] [address], [place] [address] Aug, [facility] [address] [id number] [address] [place] [address], [place] [address] Aug, [facility] [address] [id number] [address] [place] [address], [place] [address] Aug, [facility] [address] [id number] [address] [place] [address], [place] [address] Aug, [facility] [address] [id number] [address] [place] [address], [place] [address] Aug, [facility] [address] [id number] [address] [place] [address], [place] [address] Aug, [facility] [address] [id number] [address] [place] [address], [place] [address] Jul, [facility] [address] [id number] [address] [place] [address], [place] [address] Jul, [facility] [address] [id number] [address] [place] [address], [place] [address] Jul, [facility] [address] [id number] [address] [place] [address], [place] [address] Jul, [facility] [address] [id number] [address] [place] [address], [place] [address] Jul, [facility] [address] [id number] [address] [place] [address], [place] [address] Jul, [facility] [address] [id number] [address] [place] [address], [place] [address] Jun, [facility] [address] [id number] [address] [place] [address], [place] [address] Jun, [facility] [address] [id number] [address] [place] [address], [place] [address] Jun, [facility] [address] [id number] [address] [place] [address], [place] [address] Jun, [facility] [address] [id number] [address] [place] [address], [place] [address] Jun, [facility] [address] [id number] [address] [place] [address], [place] [address] Jun, [facility] [address] [id number] [address] [place] [address], [place] [address] Jun, [facility] [address] [id number] [address] [place] [address], [place] [address] Jun, [facility] [address] [id number] [address] [place] [address], [place] [address] Jun, [facility] [address] [id number] [address] [place] [address], [place] [address] May, [facility] [address] [id number] [address] [place] [address], [place] [address] May, [facility] [address] [id number] [address] [place] [address], [place] [address] Apr, [facility] [address] [id number] [address] [place] [address], [place] [address] Apr, 2013 [facility] [address] [id number] [address] [place] [address], [place] [address] Apr, 2013 [facility] [address] [id number] [address] [place] [address], [place] [address] Apr, 2013 [facility] [address] [id number] [address] [place] [address], [place] [address] Apr, 2013 [facility] [address] [id number] [address] [place] [address], [place] [address] Apr, 2013 [facility] [address] [id number] [address] [place] [address], [place] [address] Apr, 2013 [facility] [address] [id number] [address] [place] [address], [place] [address] Apr, 2013 [facility] [address] [id number] [address] [place] [address], [place] [address] Apr, [facility] [address] [id number] [address] [place] [address], [place] [address] Apr, [facility] [address] [id number] [address] [place] [address], [place] [address] Mar, [facility] [address] [id number] [address] [place] [address], [place] [address] Mar, [facility] [address] [id number] [address] [place] [address], [place] [address] Mar, [facility] [address] [id number] [address] [place] [address], [place] [address] Mar, [facility] [address] [id number] [address] [place] [address], [place] [address] Mar, [facility] [address] [id number] [address] [place] [address], [place] [address] Mar, [facility] [address] [id number] [address] [place] [address], [place] [address] Feb, [facility] [address] [id number] [address] [place] [address], [place] [address] Feb, [facility] [address] [id number] [address] [place] [address], [place] [address] Feb, [facility] [address] [id number] [address] [place] [address], [place] [address] Feb, [facility] [address] [id number] [address] [place] [address], [place] [address] Jan, [facility] [address] [id number] [address] [place] [address], [place] [address] Jan, [facility] [address] [id number] [address] [place] [address], [place] [address] Jan, [facility] [address] [id number] [address] [place] [address], [place] [address] Jan, [facility] [address] [id number] [address] [place] [address], [place] [address] Oct, [facility] [address] [id number] [address] [place] [address], [place] [address] Oct, [facility] [address] [id number] [address] [place] [address], [place] [address] Sep, [facility] [address] [id number] [address] [place] [address], [place] [address] Sep, [facility] [address] [id number] [address] [place] [address], [place] [address] Sep, [facility] [address] [id number] [address] [place] [address], [place] [address] Sep, [facility] [address] [id number] [address] [place] [address], [place] [address] Aug, [facility] [address] [id number] [address] [place] [address], [place] [address] Aug, [facility] [address] [id number] [address] [place] [address], [place] [address] Aug, [facility] [address] [id number] [address] [place] [address], [place] [address] Aug, [facility] [address] [id number] [address] [place] [address], [place] [address] 30 Jul, 2013 [facility] [address] [id number] [address] [place] [address], [place] [address] 30 Jul, 2013 [facility] [address] [id number] [address] [place] [address], [place] [address] Jul, [facility] [address] [id number] [address] [place] [address], [place] [address] Jul, [facility] [address] [id number] [address] [place] [address], [place] [address] Jul, [facility] [address] [id number] [address] [place] [address], [place] [address] Jul, [facility] [address] [id number] [address] [place] [address], [place] [address] Jun, [facility] [address] [id number] [address] [place] [address], [place] [address] Jun, [facility] [address] [id number] [address] [place] [address], [place] [address] Jun, [facility] [address] [id number] [address] [place] [address], [place] [address] Jun, [facility] [address] [id number] [address] [place] [address], [place] [address] Jun, [facility] [address] [id number] [address] [place] [address], [place] [address] Jun, [facility] [address] [id number] [address] [place] [address], [place] [address] May, [facility] [address] [id number] [address] [place] [address], [place] [address] May, [facility] [address] [id number] [address] [place] [address], [place] [address] May, [facility] [address] [id number] [address] [place] [address], [place] [address] May, [facility] [address] [id number] [address] [place] [address], [place] [address] May, [facility] [address] [id number] [address] [place] [address], [place] [address] May, [facility] [address] [id number] [address] [place] [address], [place] [address] May, [facility] [address] [id number] [address] [place] [address], [place] [address] May, [facility] [address] [id number] [address] [place] [address], [place] [address] Apr, [facility] [address] [id number] [address] [place] [address], [place] [address] Apr, [facility] [address] [id number] [address] [place] [address], [place] [address] Mar, [facility] [address] [id number] [address] [place] [address], [place] [address] Mar, [facility] [address] [id number] [address] [place] [address], [place] [address] Mar, [facility] [address] [id number] [address] [place] [address], [place] [address] Mar, [facility] [address] [id number] [address] [place] [address], [place] [address] Feb, [facility] [address] [id number] [address] [place] [address], [place] [address] Jan, [facility] [address] [id number] [address] [place] [address], [place] [address] December, [facility] [address] [id number] [address] [place] [address], [place] [address] December, [facility] [address] [id number] [address] [place] [address], [place] [address] December, [facility] [address] [id number] [address] [place] [address], [place] [address] Nov, [facility] [address] [id number] [address] [place] [address], [place] [address] Nov, [facility] [address] [id number] [address] [place] [address], [place] [address] Sep, [facility] [address] [id number] [address] [place] [address], [place] [address] Sep, [facility] [address] [id number] [address] [place] [address], [place] [address] Sep, [facility] [address] [id number] [address] [place] [address], [place] [address] Sep, [facility] [address] [id number] [address] [place] [address], [place] [address] Aug, [facility] [address] [id number] [address] [place] [address], [place] [address] Aug, [facility] [address] [id number] [address] [place] [address], [place] [address] Aug, [facility] [address] [id number] [address] [place] [address], [place] [address] Aug, [facility] [address] [id number] [address] [place] [address], [place] [address] Jul, [facility] [address] [id number] [address] [place] [address], [place] [address] Jul, [facility] [address] [id number] [address] [place] [address], [place] [address] Jul, [facility] [address] [id number] [address] [place] [address], [place] [address] Jul, [facility] [address] [id number] [address] [place] [address], [place] [address] Jun, [facility] [address] [id number] [address] [place] [address], [place] [address] Jun, [facility] [address] [id number] [address] [place] [address], [place] [address] Jun, [facility] [address] [id number] [address] [place] [address], [place] [address] Jun, [facility] [address] [id number] [address] [place] [address], [place] [address] May, [facility] [address] [id number] [address] [place] [address], [place] [address] May, [facility] [address] [id number] [address] [place] [address], [place] [address] May, [facility] [address] [id number] [address] [place] [address], [place] [address] May, [facility] [address] [id number] [address] [place] [address], [place] [address] May, [facility] [address] [id number] [address] [place] [address], [place] [address] 10 Apr, 2012 [facility] [address] [id number] [address] [place] [address], [place] [address] 08 Apr, 2012 [facility] [address] [id number] [address] [place] [address] 07 Apr, 2012 [facility] [address] [id number] [address] [place] [address], [place] [address] 06 Apr, 2012 [facility] [address] [id number] [address] [place] [address], [place] [address] Mar, [facility] [address] [id number] [address] [place] [address], [place] [address] Mar, [facility] [address] [id number] [address] [place] [address], [place] [address] Feb, [facility] [address] [id number] [address] [place] [address], [place] [address] Feb, [facility] [address] [id number] [address] [place] [address], [place] [address] Feb, [facility] [address] [id number] [address] [place] [address], [place] [address] Jan, [facility] [address] [id number] [address] [place] [address], [place] [address] Jan, [facility] [address] [id number] [address] [place] [address], [place] [address] December, [facility] [address] [id number] [address] [place] [address], [place] [address] December, [facility] [address] [id number] [address] [place] [address], [place] [address] Nov, [facility] [address] [id number] [address] [place] [address], [place] [address] Oct, [facility] [address] [id number] [address] [place] [address], [place] [address] Oct, [facility] [address] [id number] [address] [place] [address], [place] [address] Sep, [facility] [address] [id number] [address] [place] [address], [place] [address] Sep, [facility] [address] [id number] [address] [place] [address], [place] [address] Aug, [facility] [address] [id number] [address] [place] [address], [place] [address] Aug, [facility] [address] [id number] [address] [place] [address], [place] [address] Jul, [facility] [address] [id number] [address] [place] [address], [place] [address] Jul, [facility] [address] [id number] [address] [place] [address], [place] [address] 09 Jul, 2011 [facility] [address] [id number] [address] [place] [address], [place] [address] 07 Jun, 2011 [facility] [address] [id number] [address] [place] [address], [place] [address] 07 Jun, 2011 [facility] [address] [id number] [address] [place] [address], [place] [address] 13 May, 2011 [facility] [address] [id number] [address] [place] [address], [place] [address] May, [facility] [address] [id number] [address] [place] [address], [place] [address] May, [facility] [address] [id number] [address] [place] [address], [place] [address] Jul, [facility] [address] [id number] [address] [place] [address], [place] [address] Jul, [facility] [address] [id number] [address] [place] [address], [place] [address] 15 Jun, 2010 [facility] [address] [id number] [address] [place] [address], [place] [address] May, [facility] [address] [id number] [address] [place] [address], [place] [address] May, [facility] [address] [id number] [address] [place] [address], [place] [address] 14 Aug, 2009 [facility] [address] [id number] [address] [place] [address], [place] [address] 17 Jul, 2009 [facility] [address] [id number] [address] [place] [address], [place] [address] Jun, [facility] [address] [id number] [address] [place] [address], [place] [address] 10 Jun, 2009 [facility] [address] [id number] [address] [place] [id number] Jun, [facility] [place] [address] [facility] [id number] [address] [place] [id number] Jun, [facility] [place] [address] [facility] [id number] [address] [place] [id number] Jun, [facility] [place] [address] [facility] [id number] [address] [place] [id number] May, [facility] [place] [address] [facility] [id number] [address] [place] [id number] Sep, IMMUNIZATIONS No Known Immunizations SOCIAL HISTORY [...]
--- OUTSIDE RECORDS SUMMARY | 2020-01-28 14:24 | XMS REPORT ---
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 Name Role Phone GEORGINA RODRIGUEZ Unavailable PROBLEMS Type Condition ICD9-CM Code RHM00-LQ Code Onset Dates Condition S tatus SNOMED Code Problem Osteoarthritis M19.90 Active 22337 5006 Problem Chronic obstructive pulmonary disease, unspecified COPD ty pe J44.9 Active 44370441 Problem Acquired hypothyroidism E03.9 Active 841463363 Problem Cigarette nicotine dependence without complication F17.210 Active 21750614 Problem Diabetes E11.9 Active 104041498 Problem High risk medication use Z79.899 Activ e 174606843 Problem Urinary incontinence, unspecified type R32 Active 001448856 Problem long-term (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.01 Active 656794903 Problem Morbid obesity, unspecified obesity type E66.01 Active 402474734 Problem Other chronic pain G89.29 Active 8 2566545 Problem History of cataract surgery Z98.49 Ac tive 413997470 Problem Type 2 diabetes mellitus wit h hyperglycemia, without long-term current use of insulin E11.65 Active 64834953 Problem Encounter for immunization Z23 Act essie 540373236 Problem Irregular heart beats I49.9 Active 278201821 Problem Other urinary incontinence N39.498 Act essie 029095649 Problem Essential hypertension I10 Active 33137365 Problem Chronic atrial fibrillation I48.2 Ac tive 492483828 ALLERGIES No Information ENCOUNTERS Encounter Location Date Diagnosis [facility] [address] [facility] [id number] [address] [place] [phone] Oct, [facility] [address] [facility] [id number] [address] [place] [address] Oct, long-term (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 a 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 Z79.01 [facility] [address] [id number] [address] [place] [phone] Oct, 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 [facility] [address] [id number] [address] [place] [address] Sep, [facility] [address] [id number] [address] [place] [address] Aug, Osteoarthritis M19.90 [facility] [address] [id number] [address] [place] [address] Aug, Diabetes E11.9 ; long-term ( 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.01 ; Tobacco abuse Z72.0 ; Low back pain M54.5 and Chronic atrial fibrillation I48.2 [place] [address] [id number] [address] [place] [address] Aug, Diabetes E11.9 [facility] [address] [facility] [id number] [address] [place] [address] Aug, [facility] [address] [id number] [address] [place] [phone] 08 Aug, 2019 Acute non-recurrent pansinus itis J01.40 and Non- recurrent acute suppurative otitis media of left ear without spontaneous rupture of tympanic membrane H66.002 [place] [address] [id number] [address] [place] [phone] Aug, [facility] [address] [id number] [address] [place] [phone] Aug, 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 [facility] [address] [id number] [address] [place] [address] Aug, 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 [facility] [address] [id number] [address] [place] [phone] Jul, Osteoarthritis M19.90 [facility] [address] [facility] [id number] [address] [place] [address] Jul, Osteoarthritis M19.90 [facility] [address] [id number] [address] [place] [phone] Jun, [facility] [address] [id number] [address] [place] [address] Jun, Chronic atrial fibrillation I48.2 [facility] [address] [facility] [id number] [address] [place] [address] Jun, Osteoarthritis M19.90 [facility] [address] [id number] [address] [place] [phone] Jun, Chronic atrial fibrillation I48.2 [facility] [address] [id number] [address] [place] [phone] May, Osteoarthritis M19.90 [facility] [address] [facility] [id number] [address] [place] [phone] May, Chronic atrial fibrillation I48.2 [facility] [address] [id number] [address] [place] [phone] Apr, Osteoarthritis M19.90 [facility] [address] [facility] [id number] [address] [place] [phone] Mar, Chronic atrial fibrillation I48.2 [facility] [address] [facility] [id number] [address] [place] [phone] Mar, Chronic atrial fibrillation I48.2 [facility] [address] [facility] [id number] [address] [place] [address] Mar, Osteoarthritis M19.90 [facility] [address] [facility] [id number] [address] [place] [phone] Mar, Chronic atrial fibrillation I48.2 [facility] [address] [facility] [id number] [address] [place] [phone] Mar, Type 2 diabetes mellitus wit h hyperglycemia, without long-term current use of insulin E11.65 ; Chronic atrial fibrillation I48.2 and Morbid obesity E66.01 [facility] [address] [id number] [address] [place] [address] Feb, Osteoarthritis M19.90 [facility] [address] [id number] [address] [place] [phone] Feb, Chronic atrial fibrillation I48.2 [facility] [address] [id number] [address] [place] [phone] Feb, Hyperglycemia R73.9 ; Diabet es E11.9 ; Morbid obesity E66.01 ; Acquired hypothyroidism E03.9 ; Osteoarthritis M19.90 and High risk medication use Z79.899 [facility] [address] [id number] [address] [place] [address] Feb, Chronic atrial fibrillation I48.2 [facility] [address] [id number] [address] [place] [address] Jan, Osteoarthritis M19.90 [facility] [address] [id number] [address] [place] [address] Jan, Chronic atrial fibrillation I48.2 [facility] [address] [id number] [address] [place] [address] Jan, Chronic atrial fibrillation I48.2 [facility] [address] [id number] [address] [place] [address] Jan, Chronic atrial fibrillation I48.2 [facility] [address] [facility] [id number] [address] [place] [address] Jan, long-term (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 a 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 Z79.01 [facility] [address] [id number] [address] [place] [phone] December, [facility] [address] [id number] [address] [place] [address] December, [facility] [address] [facility] [id number] [address] [place] [phone] December, Osteoarthritis M19.90 [facility] [address] [id number] [address] [place] [phone] Nov, [facility] [address] [id number] [address] [place] [address] Nov, Osteoarthritis M19.90 [facility] [address] [id number] [address] [place] [address] Oct, Osteoarthritis M19.90 [facility] [address] [facility] [id number] [address] [place] [phone] Sep, Osteoarthritis M19.90 [facility] [address] [facility] [id number] [address] [place] [phone] Sep, long-term (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 a 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 Z79.01 ; BMI 45.0-49.9, adult Z68.42 ; Diabetes E11.9 ; Chronic atrial fibrillation I48.2 and Chronic obstructive pulmonary disease, unspecified COPD type J44.9 [facility] [address] [facility] [id number] [address] [place] [phone] Sep, Diabetes E11.9 ; long-term ( 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.01 ; Chronic atrial fibrillation I48.2 ; Chronic obstructive pulmonary disease, unspecified COPD type J44.9 and BMI 45.0-49.9, adult Z68.42 [facility] [address] [facility] [id number] [address] [place] [phone] Aug, Osteoarthritis M19.90 [facility] [address] [facility] [id number] [address] [place] [phone] Aug, [facility] [address] [facility] [id number] [address] [place] [address] Aug, long-term (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 a 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 Z79.01 ; BMI 45.0-49.9, adult Z68.42 ; Diabetes E11.9 and Chronic atrial fibrillation I48.2 [facility] [address] [facility] [id number] [address] [place] [phone] Aug, [facility] [address] [id number] [address] [place] [address] Jul, Osteoarthritis M19.90 [facility] [address] [id number] [address] [place] [address] Jun, Osteoarthritis M19.90 [facility] [address] [facility] [id number] [address] [place] [address] Jun, long-term (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 a 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 Z79.01 [facility] [address] [facility] [id number] [address] [place] [phone] Jun, Chronic atrial fibrillation I48.2 and 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 [place] [address] [facility] [id number] [address] [place] [phone] Jun, Osteoarthritis M19.90 [place] [address] [place] [id number] [place] [address] May, Encounter for immunization Z 23 [facility] [address] [facility] [id number] [address] [place] [phone] May, 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 [facility] [address] [facility] [id number] [address] [place] [address] May, Osteoarthritis M19.90 [place] [address] [place] [id number] [address] [place] [address] May, [facility] [address] [facility] [id number] [address] [place] [address] May, Diabetes E11.9 ; long-term ( 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.01 ; Chronic atrial fibrillation I48.2 ; BMI 45.0-49.9, adult Z68.42 ; Osteoarthritis M19.90 ; Low back pain M54.5 and Other chronic pain G89.29 [facility] [address] [facility] [id number] [address] [place] [address] Apr, Chronic atrial fibrillation I48.2 [place] [address] [facility] [id number] [address] [place] [address] 13 Apr, 2018 long-term (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 a 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 Z79.01 [facility] [address] [id number] [address] [place] [phone] 07 Apr, 2018 Osteoarthritis M19.90 [facility] [address] [id number] [address] [place] [phone] 04 Apr, 2018 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 and Chronic atrial fibrillation I48.2 [facility] [address] [id number] [address] [place] [address] Mar, Osteoarthritis M19.90 [facility] [address] [id number] [address] [place] [address] Feb, Osteoarthritis M19.90 [facility] [address] [facility] [id number] [address] [place] [address] Jan, Osteoarthritis M19.90 [facility] [address] [id number] [address] [place] [phone] December, [facility] [address] [id number] [address] [place] [phone] December, Osteoarthritis M19.90 [facility] [address] [facility] [id number] [address] [place] [address] Nov, Diabetes E11.9 ; long-term ( 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.01 ; Acquired hypothyroidism E03.9 ; Cigarette nicotine dependence without complication F17.210 ; Osteoarthritis M19.90 ; BMI 45.0-49.9, adult Z68.42 and Chronic atrial fibrillation I48.2 [facility] [address] [id number] [address] [place] [address] Nov, Osteoarthritis M19.90 [facility] [address] [id number] [address] [place] [phone] Oct, Osteoarthritis M19.90 [facility] [address] [facility] [id number] [address] [place] [address] Oct, 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 [facility] [address] [facility] [id number] [address] [place] [address] Sep, Osteoarthritis M19.90 [facility] [address] [facility] [id number] [address] [place] [phone] Sep, [facility] [address] [place] [id number] [address] [place] [address] Aug, Osteoarthritis M19.90 [facility] [address] [facility] [id number] [address] [place] [address] Jul, Osteoarthritis M19.90 [facility] [address] [address] Jul, Osteoarthritis M19.90 [facility] [address] [address] Jun, Diabetes E11.9 ; Encounter f or immunization Z23 ; 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 ; Chronic atrial fibrillation I48.2 ; Osteoarthritis M19.90 ; Tobacco abuse Z72.0 and Bug bite, initial encounter W57.XXXA [facility] [address] [address] May, Osteoarthritis M19.90 [facility] [address] [address] Apr, Osteoarthritis M19.90 [facility] [address] [place] [id number] [address] [place] [address] Mar, Chronic atrial fibrillation I48.2 [facility] [address] [place] [id number] [place] [address] Mar, [facility] [address] [place] [id number] [address] [place] [address] Mar, Osteoarthritis M19.90 [facility] [address] [place] [id number] [address] [place] [phone] Mar, long-term (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 a 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 Z79.01 and Chronic atrial fibrillation I48.2 [facility] [address] [id number] [address] [place] [address] Mar, Chronic atrial fibrillation I48.2 and 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 [facility] [address] [id number] [address] [place] [address] Mar, 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 [place] [address] [id number] [address] [place] [address] Mar, 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 [place] [address] [id number] [address] [place] [phone] Mar, Osteoarthritis M19.90 [place] [address] [id number] [address] [place] [address] Feb, Encounter for screening mamm ogram for malignant neoplasm of breast Z12.31 [place] [address] [id number] [address] [place] [address] Feb, Osteoarthritis M19.90 [place] [address] [id number] [address] [place] [address] Jan, [place] [address] [id number] [address] [place] [address] Jan, long-term (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 a 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 Z79.01 ; Diabetes E11.9 ; Osteoarthritis M19.90 and Breast cancer screening Z12.39 [place] [address] [id number] [address] [place] [address] Jan, Osteoarthritis M19.90 [place] [address] [id number] [address] [place] [address] Jan, Osteoarthritis M19.90 [facility] [address] [facility] [id number] [address] [place] [phone] Jan, [facility] [address] [facility] [id number] [address] [place] [address] December, Osteoarthritis M19.90 [facility] [address] [facility] [id number] [address] [place] [address] December, Osteoarthritis M19.90 [facility] [address] [id number] [id number] Nov, [facility] [address] [facility] [id number] [address] [place] [phone] Nov, [facility] [address] [facility] [id number] [address] [place] [phone] Nov, [facility] [address] [facility] [id number] [address] [place] [phone] Nov, Diabetes E11.9 [place] [address] [facility] [id number] [address] [place] [address] Nov, [facility] [address] [facility] [id number] [address] [place] [address] Oct, Osteoarthritis M19.90 [facility] [address] [facility] [id number] [address] [place] [address] Oct, Osteoarthritis M19.90 ; 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 ; Diabetes E11.9 ; Cigarette nicotine dependence without complication F17.210 and Chronic atrial fibrillation I48.2 [place] [address] [facility] [id number] [address] [place] [address] Aug, [facility] [address] [facility] [id number] [address] [place] [address] Aug, long-term (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 a 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 Z79.01 [facility] [address] [facility] [id number] [address] [place] [phone] Aug, [facility] [address] [id number] [id number] Aug, [place] [address] [place] [id number] [address] [place] [phone] Aug, [facility] [address] [address] Aug, [facility] [id number] [place] [id number] Aug, [facility] [address] [place] [id number] Aug Osteoarthritis M19.90 and Essential hypertension I10 [facility] [address] [address] Aug, Other urinary incontinence N 39.498 [place] [address] [address] Jul, Osteoarthritis M19.90 [place] [address] [address] Jun, Diabetes E11.9 ; Encounter f or immunization Z23 ; Osteoarthritis M19.90 ; long-term (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.01 ; Cigarette nicotine dependence without complication F17.210 ; Acquired hypothyroidism E03.9 ; Morbid obesity, unspecified obesity type E66.01 and Irregular heart beats I49.9 [facility] [id number] [place] [address] Jun, Osteoarthritis M19.90 [place] [address] [address] May, Osteoarthritis M19.90 [facility] [address] [address] May, Urinary incontinence, unspec ified type R32 [place] [address] [address] May, [facility] [address] [place] [id number] [address] [place] [address] Apr, Osteoarthritis M19.90 [facility] [address] [address] Apr, 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210 and Morbid obesity, unspecified obesity type E66.01 [place] [address] [facility] [id number] [address] [place] [address] Mar, Osteoarthritis M19.90 [place] [address] [facility] [id number] [address] [place] [address] December, Osteoarthritis M19.90 [place] [address] [facility] [id number] [address] [place] [phone] December, [place] [address] [facility] [id number] [address] [place] [phone] Oct, [place] [address] [facility] [id number] [address] [place] [phone] Oct, [place] [address] [facility] [id number] [address] [place] [address] Aug, [facility] [address] [facility] [id number] [address] [place] [address] Jul, [place] [address] [facility] [id number] [address] [place] [phone] Jul, [place] [address] [facility] [id number] [address] [place] [phone] Jul, Diabetes E11.9 ; Encounter f or immunization Z23 ; Abnormal mammogram R92.8 ; Acquired hypothyroidism E03.9 ; High risk medication use Z79.899 ; Osteoarthritis M19.90 and Cigarette nicotine dependence without complication F17.210 [facility] [address] [id number] [address] [place] [address] Jul, [facility] [address] [facility] [id number] [address] [place] [phone] Jun, Abnormal mammogram R92.8 [facility] [address] [id number] [address] [place] [phone] Apr, [facility] [address] [id number] [address] [place] [phone] Apr, [facility] [address] [id number] [address] [place] [address] Mar, [facility] [address] [id number] [address] [place] [phone] Mar, 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 [facility] [address] [id number] [address] [place] [phone] Feb, [facility] [address] [id number] [address] [place] [phone] Jan, [facility] [address] [facility] [id number] [address] [place] [phone] December, [facility] [address] [id number] [address] [place] [phone] Nov, [facility] [address] [id number] [address] [place] [phone] Nov, [facility] [address] [id number] [address] [place] [phone] Oct, [facility] [address] [id number] [address] [place] [phone] Oct, [facility] [address] [id number] [address] [place] [phone] 17 Oct, 2014 [facility] [address] [id number] [address] [place] [address], [place] [phone] 17 Oct, 2014 [facility] [address] [id number] [address] [place] [address], [place] [phone] Oct, [facility] [address] [id number] [address] [place] [address], [place] [phone] Oct, [facility] [address] [id number] [address] [place] [address], [place] [address] Sep, [facility] [address] [id number] [address] [place] [address], [place] [address] Sep, [facility] [address] [id number] [address] [place] [address], [place] [address] Sep, [facility] [address] [id number] [address] [place] [address], [place] [address] Sep, [facility] [address] [id number] [address] [place] [address], [place] [address] Aug, [facility] [address] [id number] [address] [place] [address], [place] [address] Aug, [facility] [address] [id number] [address] [place] [address], [place] [address] Aug, [facility] [address] [id number] [address] [place] [address], [place] [address] Aug, [facility] [address] [id number] [address] [place] [address], [place] [address] Aug, [facility] [address] [id number] [address] [place] [address], [place] [address] Aug, [facility] [address] [id number] [address] [place] [address], [place] [address] Jul, [facility] [address] [id number] [address] [place] [address], [place] [address] Jul, [facility] [address] [id number] [address] [place] [address], [place] [address] Jul, [facility] [address] [id number] [address] [place] [address], [place] [address] Jul, [facility] [address] [id number] [address] [place] [address], [place] [address] Jul, [facility] [address] [id number] [address] [place] [address], [place] [address] Jul, [facility] [address] [id number] [address] [place] [address], [place] [address] Jun, [facility] [address] [id number] [address] [place] [address], [place] [address] Jun, [facility] [address] [id number] [address] [place] [address], [place] [address] Jun, [facility] [address] [id number] [address] [place] [address], [place] [address] Jun, [facility] [address] [id number] [address] [place] [address], [place] [address] Jun, [facility] [address] [id number] [address] [place] [address], [place] [address] Jun, [facility] [address] [id number] [address] [place] [address], [place] [address] Jun, [facility] [address] [id number] [address] [place] [address], [place] [address] Jun, [facility] [address] [id number] [address] [place] [address], [place] [address] Jun, [facility] [address] [id number] [address] [place] [address], [place] [address] May, [facility] [address] [id number] [address] [place] [address], [place] [address] May, [facility] [address] [id number] [address] [place] [address], [place] [address] Apr, [facility] [address] [id number] [address] [place] [address], [place] [address] Apr, 2013 [facility] [address] [id number] [address] [place] [address], [place] [address] Apr, 2013 [facility] [address] [id number] [address] [place] [address], [place] [address] Apr, 2013 [facility] [address] [id number] [address] [place] [address], [place] [address] Apr, 2013 [facility] [address] [id number] [address] [place] [address], [place] [address] Apr, 2013 [facility] [address] [id number] [address] [place] [address], [place] [address] Apr, 2013 [facility] [address] [id number] [address] [place] [address], [place] [address] Apr, 2013 [facility] [address] [id number] [address] [place] [address], [place] [address] Apr, [facility] [address] [id number] [address] [place] [address], [place] [address] Apr, [facility] [address] [id number] [address] [place] [address], [place] [address] Mar, [facility] [address] [id number] [address] [place] [address], [place] [address] Mar, [facility] [address] [id number] [address] [place] [address], [place] [address] Mar, [facility] [address] [id number] [address] [place] [address], [place] [address] Mar, [facility] [address] [id number] [address] [place] [address], [place] [address] Mar, [facility] [address] [id number] [address] [place] [address], [place] [address] Mar, [facility] [address] [id number] [address] [place] [address], [place] [address] Feb, [facility] [address] [id number] [address] [place] [address], [place] [address] Feb, [facility] [address] [id number] [address] [place] [address], [place] [address] Feb, [facility] [address] [id number] [address] [place] [address], [place] [address] Feb, [facility] [address] [id number] [address] [place] [address], [place] [address] Jan, [facility] [address] [id number] [address] [place] [address], [place] [address] Jan, [facility] [address] [id number] [address] [place] [address], [place] [address] Jan, [facility] [address] [id number] [address] [place] [address], [place] [address] Jan, [facility] [address] [id number] [address] [place] [address], [place] [address] Oct, [facility] [address] [id number] [address] [place] [address], [place] [address] Oct, [facility] [address] [id number] [address] [place] [address], [place] [address] Sep, [facility] [address] [id number] [address] [place] [address], [place] [address] Sep, [facility] [address] [id number] [address] [place] [address], [place] [address] Sep, [facility] [address] [id number] [address] [place] [address], [place] [address] Sep, [facility] [address] [id number] [address] [place] [address], [place] [address] Aug, [facility] [address] [id number] [address] [place] [address], [place] [address] Aug, [facility] [address] [id number] [address] [place] [address], [place] [address] Aug, [facility] [address] [id number] [address] [place] [address], [place] [address] Aug, [facility] [address] [id number] [address] [place] [address], [place] [address] 30 Jul, 2013 [facility] [address] [id number] [address] [place] [address], [place] [address] 30 Jul, 2013 [facility] [address] [id number] [address] [place] [address], [place] [address] Jul, [facility] [address] [id number] [address] [place] [address], [place] [address] Jul, [facility] [address] [id number] [address] [place] [address], [place] [address] Jul, [facility] [address] [id number] [address] [place] [address], [place] [address] Jul, [facility] [address] [id number] [address] [place] [address], [place] [address] Jun, [facility] [address] [id number] [address] [place] [address], [place] [address] Jun, [facility] [address] [id number] [address] [place] [address], [place] [address] Jun, [facility] [address] [id number] [address] [place] [address], [place] [address] Jun, [facility] [address] [id number] [address] [place] [address], [place] [address] Jun, [facility] [address] [id number] [address] [place] [address], [place] [address] Jun, [facility] [address] [id number] [address] [place] [address], [place] [address] May, [facility] [address] [id number] [address] [place] [address], [place] [address] May, [facility] [address] [id number] [address] [place] [address], [place] [address] May, [facility] [address] [id number] [address] [place] [address], [place] [address] May, [facility] [address] [id number] [address] [place] [address], [place] [address] May, [facility] [address] [id number] [address] [place] [address], [place] [address] May, [facility] [address] [id number] [address] [place] [address], [place] [address] May, [facility] [address] [id number] [address] [place] [address], [place] [address] May, [facility] [address] [id number] [address] [place] [address], [place] [address] Apr, [facility] [address] [id number] [address] [place] [address], [place] [address] Apr, [facility] [address] [id number] [address] [place] [address], [place] [address] Mar, [facility] [address] [id number] [address] [place] [address], [place] [address] Mar, [facility] [address] [id number] [address] [place] [address], [place] [address] Mar, [facility] [address] [id number] [address] [place] [address], [place] [address] Mar, [facility] [address] [id number] [address] [place] [address], [place] [address] Feb, [facility] [address] [id number] [address] [place] [address], [place] [address] Jan, [facility] [address] [id number] [address] [place] [address], [place] [address] December, [facility] [address] [id number] [address] [place] [address], [place] [address] December, [facility] [address] [id number] [address] [place] [address], [place] [address] December, [facility] [address] [id number] [address] [place] [address], [place] [address] Nov, [facility] [address] [id number] [address] [place] [address], [place] [address] Nov, [facility] [address] [id number] [address] [place] [address], [place] [address] Sep, [facility] [address] [id number] [address] [place] [address], [place] [address] Sep, [facility] [address] [id number] [address] [place] [address], [place] [address] Sep, [facility] [address] [id number] [address] [place] [address], [place] [address] Sep, [facility] [address] [id number] [address] [place] [address], [place] [address] Aug, [facility] [address] [id number] [address] [place] [address], [place] [address] Aug, [facility] [address] [id number] [address] [place] [address], [place] [address] Aug, [facility] [address] [id number] [address] [place] [address], [place] [address] Aug, [facility] [address] [id number] [address] [place] [address], [place] [address] Jul, [facility] [address] [id number] [address] [place] [address], [place] [address] Jul, [facility] [address] [id number] [address] [place] [address], [place] [address] Jul, [facility] [address] [id number] [address] [place] [address], [place] [address] Jul, [facility] [address] [id number] [address] [place] [address], [place] [address] Jun, [facility] [address] [id number] [address] [place] [address], [place] [address] Jun, [facility] [address] [id number] [address] [place] [address], [place] [address] Jun, [facility] [address] [id number] [address] [place] [address], [place] [address] Jun, [facility] [address] [id number] [address] [place] [address], [place] [address] May, [facility] [address] [id number] [address] [place] [address], [place] [address] May, [facility] [address] [id number] [address] [place] [address], [place] [address] May, [facility] [address] [id number] [address] [place] [address], [place] [address] May, [facility] [address] [id number] [address] [place] [address], [place] [address] May, [facility] [address] [id number] [address] [place] [address], [place] [address] 10 Apr, 2012 [facility] [address] [id number] [address] [place] [address], [place] [address] 08 Apr, 2012 [facility] [address] [id number] [address] [place] [address] 07 Apr, 2012 [facility] [address] [id number] [address] [place] [address], [place] [address] 06 Apr, 2012 [facility] [address] [id number] [address] [place] [address], [place] [address] Mar, [facility] [address] [id number] [address] [place] [address], [place] [address] Mar, [facility] [address] [id number] [address] [place] [address], [place] [address] Feb, [facility] [address] [id number] [address] [place] [address], [place] [address] Feb, [facility] [address] [id number] [address] [place] [address], [place] [address] Feb, [facility] [address] [id number] [address] [place] [address], [place] [address] Jan, [facility] [address] [id number] [address] [place] [address], [place] [address] Jan, [facility] [address] [id number] [address] [place] [address], [place] [address] December, [facility] [address] [id number] [address] [place] [address], [place] [address] December, [facility] [address] [id number] [address] [place] [address], [place] [address] Nov, [facility] [address] [id number] [address] [place] [address], [place] [address] Oct, [facility] [address] [id number] [address] [place] [address], [place] [address] Oct, [facility] [address] [id number] [address] [place] [address], [place] [address] Sep, [facility] [address] [id number] [address] [place] [address], [place] [address] Sep, [facility] [address] [id number] [address] [place] [address], [place] [address] Aug, [facility] [address] [id number] [address] [place] [address], [place] [address] Aug, [facility] [address] [id number] [address] [place] [address], [place] [address] Jul, [facility] [address] [id number] [address] [place] [address], [place] [address] Jul, [facility] [address] [id number] [address] [place] [address], [place] [address] 09 Jul, 2011 [facility] [address] [id number] [address] [place] [address], [place] [address] 07 Jun, 2011 [facility] [address] [id number] [address] [place] [address], [place] [address] 07 Jun, 2011 [facility] [address] [id number] [address] [place] [address], [place] [address] 13 May, 2011 [facility] [address] [id number] [address] [place] [address], [place] [address] May, [facility] [address] [id number] [address] [place] [address], [place] [address] May, [facility] [address] [id number] [address] [place] [address], [place] [address] Jul, [facility] [address] [id number] [address] [place] [address], [place] [address] Jul, [facility] [address] [id number] [address] [place] [address], [place] [address] 15 Jun, 2010 [facility] [address] [id number] [address] [place] [address], [place] [address] May, [facility] [address] [id number] [address] [place] [address], [place] [address] May, [facility] [address] [id number] [address] [place] [address], [place] [address] 14 Aug, 2009 [facility] [address] [id number] [address] [place] [address], [place] [address] 17 Jul, 2009 [facility] [address] [id number] [address] [place] [address], [place] [address] Jun, [facility] [address] [id number] [address] [place] [address], [place] [address] 10 Jun, 2009 [facility] [address] [id number] [address] [place] [phone] Jun, [facility] [address] [facility] [id number] [address] [place] [phone] Jun, [facility] [address] [facility] [id number] [address] [place] [phone] Jun, [facility] [address] [facility] [id number] [address] [place] [phone] May, [facility] [address] [facility] [id number] [address] [place] [phone] Sep, IMMUNIZATIONS No Known Immunizations SOCIAL HISTORY [...]
--- OUTSIDE RECORDS SUMMARY | 2020-01-28 14:24 | XMS REPORT ---
Author Author Katarina RODRIGUEZ Organization [facility] Address [address] [place] [address] Care Team Providers Care Professional Fee Coder Name Role Phone GEORGINA RODRIGUEZ Unavailable PROBLEMS Type Condition ICD9-CM Code TTX48-IM Code Onset Dates Condition S tatus SNOMED Code Problem Osteoarthritis M19.90 Active 87758 5006 Problem Chronic obstructive pulmonary disease, unspecified COPD ty pe J44.9 Active 13674258 Problem Acquired hypothyroidism E03.9 Active 481213669 Problem Cigarette nicotine dependence without complication F17.210 Active 31390725 Problem Diabetes E11.9 Active 482134508 Problem High risk medication use Z79.899 Activ e 209226387 Problem Urinary incontinence, unspecified type R32 Active 532547487 Problem half-way (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.01 Active 512433510 Problem Morbid obesity, unspecified obesity type E66.01 Active 665976998 Problem Other chronic pain G89.29 Active 8 1204853 Problem History of cataract surgery Z98.49 Ac tive 374427905 Problem Type 2 diabetes mellitus wit h hyperglycemia, without long-term current use of insulin E11.65 Active 95611511 Problem Encounter for immunization Z23 Act essie 831995808 Problem Irregular heart beats I49.9 Active 832880229 Problem Other urinary incontinence N39.498 Act essie 391134120 Problem Essential hypertension I10 Active 98273707 Problem Chronic atrial fibrillation I48.2 Ac tive [id number] ALLERGIES No Information ENCOUNTERS Encounter Location Date Diagnosis [facility] [address] [facility] [id number] [address] [place] [id number] Oct, [facility] [address] [facility] [id number] [address] [place] [id number] Oct, half-way (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 a 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 Z79.01 [facility] [address] [id number] [address] [place] [id number] Oct, meterman (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 a 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 Z79.01 [facility] [address] [id number] [address] [place] [id number] Sep, [facility] [address] [id number] [address] [place] [id number] Aug, Osteoarthritis M19.90 [facility] [address] [id number] [address] [place] [id number] Aug, Diabetes E11.9 ; half-way ( 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.01 ; Tobacco abuse Z72.0 ; Low back pain M54.5 and Chronic atrial fibrillation I48.2 [facility] [address] [id number] [address] [place] [phone] Aug, Diabetes E11.9 [facility] [address] [facility] [id number] [address] [place] [phone] Aug, [facility] [address] [id number] [address] [place] [id number] 08 Aug, 2019 Acute non-recurrent pansinus itis J01.40 and Non- recurrent acute suppurative otitis media of left ear without spontaneous rupture of tympanic membrane H66.002 [facility] [place] [address] [id number] [address] [place] [id number] Aug, [facility] [address] [id number] [address] [place] [id number] Aug, meterman (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 a 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 Z79.01 [facility] [address] [id number] [address] [place] [id number] Aug, meterman (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 a 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 Z79.01 [facility] [address] [id number] [address] [place] [id number] Jul, Osteoarthritis M19.90 [facility] [address] [facility] [id number] [address] [place] [id number] Jul, Osteoarthritis M19.90 [facility] [address] [id number] [address] [place] [id number] Jun, [facility] [address] [id number] [address] [place] [id number] Jun, Chronic atrial fibrillation I48.2 [facility] [address] [facility] [id number] [address] [place] [id number] Jun, Osteoarthritis M19.90 [facility] [address] [id number] [address] [place] [id number] Jun, Chronic atrial fibrillation I48.2 [facility] [address] [id number] [address] [place] [id number] May, Osteoarthritis M19.90 [facility] [address] [facility] [id number] [address] [place] [phone] May, Chronic atrial fibrillation I48.2 [facility] [address] [id number] [address] [place] [id number] Apr, Osteoarthritis M19.90 [facility] [address] [facility] [id number] [address] [place] [id number] Mar, Chronic atrial fibrillation I48.2 [facility] [address] [facility] [id number] [address] [place] [id number] Mar, Chronic atrial fibrillation I48.2 [facility] [address] [facility] [id number] [address] [place] [id number] Mar, Osteoarthritis M19.90 [facility] [address] [facility] [id number] [address] [place] [id number] Mar, Chronic atrial fibrillation I48.2 [facility] [address] [facility] [id number] [address] [place] [id number] Mar, Type 2 diabetes mellitus wit h hyperglycemia, without long-term current use of insulin E11.65 ; Chronic atrial fibrillation I48.2 and Morbid obesity E66.01 [facility] [address] [id number] [address] [place] [id number] Feb, Osteoarthritis M19.90 [facility] [address] [id number] [address] [place] [id number] Feb, Chronic atrial fibrillation I48.2 [facility] [address] [id number] [address] [place] [id number] Feb, Hyperglycemia R73.9 ; Diabet es E11.9 ; Morbid obesity E66.01 ; Acquired hypothyroidism E03.9 ; Osteoarthritis M19.90 and High risk medication use Z79.899 [facility] [address] [id number] [address] [place] [id number] Feb, Chronic atrial fibrillation I48.2 [facility] [address] [id number] [address] [place] [id number] Jan, Osteoarthritis M19.90 [facility] [address] [id number] [address] [place] [id number] Jan, Chronic atrial fibrillation I48.2 [facility] [address] [id number] [address] [place] [id number] Jan, Chronic atrial fibrillation I48.2 [facility] [address] [id number] [address] [place] [id number] Jan, Chronic atrial fibrillation I48.2 [facility] [address] [facility] [id number] [address] [place] [id number] Jan, half-way (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 a 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 Z79.01 [facility] [address] [id number] [address] [place] [phone] December, [facility] [address] [id number] [address] [place] [id number] December, [facility] [address] [facility] [id number] [address] [place] [id number] December, Osteoarthritis M19.90 [facility] [address] [id number] [address] [place] [id number] Nov, [facility] [address] [id number] [address] [place] [id number] Nov, Osteoarthritis M19.90 [facility] [address] [id number] [address] [place] [id number] Oct, Osteoarthritis M19.90 [facility] [address] [facility] [id number] [address] [place] [id number] Sep, Osteoarthritis M19.90 [facility] [address] [facility] [id number] [address] [place] [id number] Sep, half-way (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 a 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 Z79.01 ; BMI 45.0-49.9, adult Z68.42 ; Diabetes E11.9 ; Chronic atrial fibrillation I48.2 and Chronic obstructive pulmonary disease, unspecified COPD type J44.9 [facility] [address] [facility] [id number] [address] [place] [id number] Sep, Diabetes E11.9 ; half-way ( 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.01 ; Chronic atrial fibrillation I48.2 ; Chronic obstructive pulmonary disease, unspecified COPD type J44.9 and BMI 45.0-49.9, adult Z68.42 [facility] [address] [facility] [id number] [address] [place] [id number] Aug, Osteoarthritis M19.90 [facility] [address] [facility] [id number] [address] [place] [phone] Aug, [facility] [address] [facility] [id number] [address] [place] [id number] Aug, half-way (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 a 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 Z79.01 ; BMI 45.0-49.9, adult Z68.42 ; Diabetes E11.9 and Chronic atrial fibrillation I48.2 [facility] [address] [facility] [id number] [address] [place] [id number] Aug, [facility] [address] [id number] [address] [place] [id number] Jul, Osteoarthritis M19.90 [facility] [address] [id number] [address] [place] [id number] Jun, Osteoarthritis M19.90 [facility] [address] [facility] [id number] [address] [place] [id number] Jun, half-way (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 a 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 Z79.01 [facility] [address] [facility] [id number] [address] [place] [id number] Jun, Chronic atrial fibrillation I48.2 and meterman (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.01 [facility] [address] [facility] [id number] [address] [place] [id number] Jun, Osteoarthritis M19.90 [place] [address] [place] [id number] [place] [id number] May, Encounter for immunization Z 23 [facility] [address] [facility] [id number] [address] [place] [id number] May, meterman (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 a 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 Z79.01 [facility] [address] [facility] [id number] [address] [place] [id number] May, Osteoarthritis M19.90 [facility] [place] [address] [place] [id number] [address] [place] [id number] May, [facility] [address] [facility] [id number] [address] [place] [id number] May, Diabetes E11.9 ; half-way ( 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.01 ; Chronic atrial fibrillation I48.2 ; BMI 45.0-49.9, adult Z68.42 ; Osteoarthritis M19.90 ; Low back pain M54.5 and Other chronic pain G89.29 [facility] [address] [facility] [id number] [address] [place] [id number] Apr, Chronic atrial fibrillation I48.2 [facility] [place] [address] [facility] [id number] [address] [place] [id number] 13 Apr, 2018 half-way (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 a 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 Z79.01 [facility] [address] [id number] [address] [place] [id number] 07 Apr, 2018 Osteoarthritis M19.90 [facility] [address] [id number] [address] [place] [id number] 04 Apr, 2018 meterman (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 a 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 Z79.01 and Chronic atrial fibrillation I48.2 [facility] [address] [id number] [address] [place] [id number] Mar, Osteoarthritis M19.90 [facility] [address] [id number] [address] [place] [id number] Feb, Osteoarthritis M19.90 [facility] [address] [facility] [id number] [address] [place] [id number] Jan, Osteoarthritis M19.90 [facility] [address] [id number] [address] [place] [phone] December, [facility] [address] [id number] [address] [place] [id number] December, Osteoarthritis M19.90 [facility] [address] [facility] [id number] [address] [place] [id number] Nov, Diabetes E11.9 ; half-way ( 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.01 ; Acquired hypothyroidism E03.9 ; Cigarette nicotine dependence without complication F17.210 ; Osteoarthritis M19.90 ; BMI 45.0-49.9, adult Z68.42 and Chronic atrial fibrillation I48.2 [facility] [address] [id number] [address] [place] [id number] Nov, Osteoarthritis M19.90 [facility] [address] [id number] [address] [place] [id number] Oct, Osteoarthritis M19.90 [facility] [address] [facility] [id number] [address] [place] [id number] Oct, meterman (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 a 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 Z79.01 [facility] [address] [facility] [id number] [address] [place] [id number] Sep, Osteoarthritis M19.90 [facility] [address] [facility] [id number] [address] [place] [id number] Sep, [facility] [address] [place] [id number] [address] [place] [id number] Aug, Osteoarthritis M19.90 [facility] [address] [facility] [id number] [address] [place] [id number] Jul, Osteoarthritis M19.90 [facility] [address] [id number] Jul, Osteoarthritis M19.90 [facility] [address] [id number] Jun, Diabetes E11.9 ; Encounter f or immunization Z23 ; meterman (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.01 ; Chronic atrial fibrillation I48.2 ; Osteoarthritis M19.90 ; Tobacco abuse Z72.0 and Bug bite, initial encounter W57.XXXA [facility] [address] [id number] May, Osteoarthritis M19.90 [facility] [address] [id number] Apr, Osteoarthritis M19.90 [facility] [address] [place] [id number] [address] [place] [id number] Mar, Chronic atrial fibrillation I48.2 [facility] [address] [place] [id number] [place] [id number] Mar, [facility] [address] [place] [id number] [address] [place] [id number] Mar, Osteoarthritis M19.90 [facility] [address] [place] [id number] [address] [place] [id number] Mar, half-way (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 a 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 Z79.01 and Chronic atrial fibrillation I48.2 [facility] [address] [id number] [address] [place] [id number] Mar, Chronic atrial fibrillation I48.2 and meterman (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.01 [facility] [address] [id number] [address] [place] [id number] Mar, meterman (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 a 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 Z79.01 [place] [address] [id number] [address] [place] [id number] Mar, meterman (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 a 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 Z79.01 [place] [address] [id number] [address] [place] [id number] Mar, Osteoarthritis M19.90 [place] [address] [id number] [address] [place] [id number] Feb, Encounter for screening mamm ogram for malignant neoplasm of breast Z12.31 [place] [address] [id number] [address] [place] [id number] Feb, Osteoarthritis M19.90 [place] [place] [address] [id number] [address] [place] [id number] Jan, [place] [address] [id number] [address] [place] [id number] Jan, half-way (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 a 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 Z79.01 ; Diabetes E11.9 ; Osteoarthritis M19.90 and Breast cancer screening Z12.39 [place] [place] [address] [id number] [address] [place] [id number] Jan, Osteoarthritis M19.90 [place] [place] [address] [id number] [address] [place] [id number] Jan, Osteoarthritis M19.90 [facility] [address] [facility] [id number] [address] [place] [id number] Jan, [facility] [address] [facility] [id number] [address] [place] [id number] December, Osteoarthritis M19.90 [facility] [address] [facility] [id number] [address] [place] [id number] December, Osteoarthritis M19.90 [facility] [address] [id number] [id number] Nov, [facility] [address] [facility] [id number] [address] [place] [id number] Nov, [facility] [address] [facility] [id number] [address] [place] [id number] Nov, [facility] [address] [facility] [id number] [address] [place] [phone] Nov, Diabetes E11.9 [place] [address] [facility] [id number] [address] [place] [id number] Nov, [facility] [address] [facility] [id number] [address] [place] [id number] Oct, Osteoarthritis M19.90 [facility] [address] [facility] [id number] [address] [place] [id number] Oct, Osteoarthritis M19.90 ; meterman (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.01 ; Diabetes E11.9 ; Cigarette nicotine dependence without complication F17.210 and Chronic atrial fibrillation I48.2 [place] [address] [facility] [id number] [address] [place] [id number] Aug, [facility] [address] [facility] [id number] [address] [place] [id number] Aug, half-way (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 a 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 Z79.01 [facility] [address] [facility] [id number] [address] [place] [id number] Aug, [facility] [address] [id number] [id number] Aug, [place] [address] [place] [id number] [address] [place] [id number] Aug, [facility] [address] [id number] Aug, [facility] [id number] [place] [id number] Aug, [employer] [address] [place] [id number] Aug Osteoarthritis M19.90 and Essential hypertension I10 [facility] [address] [address] Aug, Other urinary incontinence N 39.498 [place] [address] [address] Jul, Osteoarthritis M19.90 [place] [address] [address] Jun, Diabetes E11.9 ; Encounter f or immunization Z23 ; Osteoarthritis M19.90 ; half-way (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.01 ; Cigarette nicotine dependence without complication F17.210 ; Acquired hypothyroidism E03.9 ; Morbid obesity, unspecified obesity type E66.01 and Irregular heart beats I49.9 [facility] [id number] [place] [address] Jun, Osteoarthritis M19.90 [place] [address] [address] May, Osteoarthritis M19.90 [facility] [address] [address] May, Urinary incontinence, unspec ified type R32 [place] [address] [address] May, [facility] [address] [place] [id number] [address] [place] [id number] Apr, Osteoarthritis M19.90 [facility] [address] [address] Apr, meterman (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 a 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 Z79.01 [facility] [address] [facility] [id number] [address] [place] [id number] Apr, [facility] [address] [facility] [id number] [address] [place] [id number] Apr, Osteoarthritis M19.90 [facility] [address] [facility] [id number] [address] [place] [id number] Mar, Diabetes E11.9 ; Hypothyroid ism, unspecified type E03.9 ; Osteoarthritis M19.90 ; High risk medication use Z79.899 ; Cigarette nicotine dependence without complication F17.210 and Morbid obesity, unspecified obesity type E66.01 [place] [address] [facility] [id number] [address] [place] [id number] Mar, Osteoarthritis M19.90 [place] [address] [facility] [id number] [address] [place] [id number] December, Osteoarthritis M19.90 [place] [address] [facility] [id number] [address] [place] [id number] December, [place] [address] [facility] [id number] [address] [place] [id number] Oct, [place] [address] [facility] [id number] [address] [place] [id number] Oct, [place] [address] [facility] [id number] [address] [place] [id number] Aug, [facility] [address] [facility] [id number] [address] [place] [id number] Jul, [place] [address] [facility] [id number] [address] [place] [phone] Jul, [place] [address] [facility] [id number] [address] [place] [id number] Jul, Diabetes E11.9 ; Encounter f or immunization Z23 ; Abnormal mammogram R92.8 ; Acquired hypothyroidism E03.9 ; High risk medication use Z79.899 ; Osteoarthritis M19.90 and Cigarette nicotine dependence without complication F17.210 [facility] [address] [id number] [address] [place] [id number] Jul, [facility] [address] [facility] [id number] [address] [place] [id number] Jun, Abnormal mammogram R92.8 [facility] [address] [id number] [address] [place] [id number] Apr, [facility] [address] [id number] [address] [place] [id number] Apr, [facility] [address] [id number] [address] [place] [id number] Mar, [facility] [address] [id number] [address] [place] [id number] Mar, Current use of medical terminologist ant 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 V58.61 [facility] [address] [id number] [address] [place] [id number] Feb, [facility] [address] [id number] [address] [place] [id number] Jan, [facility] [address] [facility] [id number] [address] [place] [id number] December, [facility] [address] [id number] [address] [place] [id number] Nov, [facility] [address] [id number] [address] [place] [id number] Nov, [facility] [address] [id number] [address] [place] [id number] Oct, [facility] [address] [id number] [address] [place] [id number] Oct, [facility] [address] [address] [id number] [address] [place] [id number] 17 Oct, 2014 [facility] [address] [id number] [address] [place] [address], [place] [address] 17 Oct, 2014 [facility] [address] [id number] [address] [place] [address], [place] [address] Oct, [facility] [address] [id number] [address] [place] [address], [place] [address] Oct, [facility] [address] [id number] [address] [place] [address], [place] [address] Sep, [facility] [address] [id number] [address] [place] [address], [place] [address] Sep, [facility] [address] [id number] [address] [place] [address], [place] [address] Sep, [facility] [address] [id number] [address] [place] [address], [place] [address] Sep, [facility] [address] [id number] [address] [place] [address], [place] [address] Aug, [facility] [address] [id number] [address] [place] [address], [place] [address] Aug, [facility] [address] [id number] [address] [place] [address], [place] [address] Aug, [facility] [address] [id number] [address] [place] [address], [place] [address] Aug, [facility] [address] [id number] [address] [place] [address], [place] [address] Aug, [facility] [address] [id number] [address] [place] [address], [place] [address] Aug, [facility] [address] [id number] [address] [place] [address], [place] [address] Jul, [facility] [address] [id number] [address] [place] [address], [place] [address] Jul, [facility] [address] [id number] [address] [place] [address], [place] [address] Jul, [facility] [address] [id number] [address] [place] [address], [place] [address] Jul, [facility] [address] [id number] [address] [place] [address], [place] [address] Jul, [facility] [address] [id number] [address] [place] [address], [place] [address] Jul, [facility] [address] [id number] [address] [place] [address], [place] [address] Jun, [facility] [address] [id number] [address] [place] [address], [place] [address] Jun, [facility] [address] [id number] [address] [place] [address], [place] [address] Jun, [facility] [address] [id number] [address] [place] [address], [place] [address] Jun, [facility] [address] [id number] [address] [place] [address], [place] [address] Jun, [facility] [address] [id number] [address] [place] [address], [place] [address] Jun, [facility] [address] [id number] [address] [place] [address], [place] [address] Jun, [facility] [address] [id number] [address] [place] [address], [place] [address] Jun, [facility] [address] [id number] [address] [place] [address], [place] [address] Jun, [facility] [address] [id number] [address] [place] [address], [place] [address] May, [facility] [address] [id number] [address] [place] [address], [place] [address] May, [facility] [address] [id number] [address] [place] [address], [place] [address] Apr, [facility] [address] [id number] [address] [place] [address], [place] [address] Apr, 2013 [facility] [address] [id number] [address] [place] [address], [place] [address] Apr, 2013 [facility] [address] [id number] [address] [place] [address], [place] [address] Apr, 2013 [facility] [address] [id number] [address] [place] [address], [place] [address] Apr, 2013 [facility] [address] [id number] [address] [place] [address], [place] [address] Apr, 2013 [facility] [address] [id number] [address] [place] [address], [place] [address] Apr, 2013 [facility] [address] [id number] [address] [place] [address], [place] [address] Apr, 2013 [facility] [address] [id number] [address] [place] [address], [place] [address] Apr, [facility] [address] [id number] [address] [place] [address], [place] [address] Apr, [facility] [address] [id number] [address] [place] [address], [place] [address] Mar, [facility] [address] [id number] [address] [place] [address], [place] [address] Mar, [facility] [address] [id number] [address] [place] [address], [place] [address] Mar, [facility] [address] [id number] [address] [place] [address], [place] [address] Mar, [facility] [address] [id number] [address] [place] [address], [place] [address] Mar, [facility] [address] [id number] [address] [place] [address], [place] [address] Mar, [facility] [address] [id number] [address] [place] [address], [place] [address] Feb, [facility] [address] [id number] [address] [place] [address], [place] [address] Feb, [facility] [address] [id number] [address] [place] [address], [place] [address] Feb, [facility] [address] [id number] [address] [place] [address], [place] [address] Feb, [facility] [address] [id number] [address] [place] [address], [place] [address] Jan, [facility] [address] [id number] [address] [place] [address], [place] [address] Jan, [facility] [address] [id number] [address] [place] [address], [place] [address] Jan, [facility] [address] [id number] [address] [place] [address], [place] [address] Jan, [facility] [address] [id number] [address] [place] [address], [place] [address] Oct, [facility] [address] [id number] [address] [place] [address], [place] [address] Oct, [facility] [address] [id number] [address] [place] [address], [place] [address] Sep, [facility] [address] [id number] [address] [place] [address], [place] [address] Sep, [facility] [address] [id number] [address] [place] [address], [place] [address] Sep, [facility] [address] [id number] [address] [place] [address], [place] [address] Sep, [facility] [address] [id number] [address] [place] [address], [place] [address] Aug, [facility] [address] [id number] [address] [place] [address], [place] [address] Aug, [facility] [address] [id number] [address] [place] [address], [place] [address] Aug, [facility] [address] [id number] [address] [place] [address], [place] [address] Aug, [facility] [address] [id number] [address] [place] [address], [place] [address] 30 Jul, 2013 [facility] [address] [id number] [address] [place] [address], [place] [address] 30 Jul, 2013 [facility] [address] [id number] [address] [place] [address], [place] [address] Jul, [facility] [address] [id number] [address] [place] [address], [place] [address] Jul, [facility] [address] [id number] [address] [place] [address], [place] [address] Jul, [facility] [address] [id number] [address] [place] [address], [place] [address] Jul, [facility] [address] [id number] [address] [place] [address], [place] [address] Jun, [facility] [address] [id number] [address] [place] [address], [place] [address] Jun, [facility] [address] [id number] [address] [place] [address], [place] [address] Jun, [facility] [address] [id number] [address] [place] [address], [place] [address] Jun, [facility] [address] [id number] [address] [place] [address], [place] [address] Jun, [facility] [address] [id number] [address] [place] [address], [place] [address] Jun, [facility] [address] [id number] [address] [place] [address], [place] [address] May, [facility] [address] [id number] [address] [place] [address], [place] [address] May, [facility] [address] [id number] [address] [place] [address], [place] [address] May, [facility] [address] [id number] [address] [place] [address], [place] [address] May, [facility] [address] [id number] [address] [place] [address], [place] [address] May, [facility] [address] [id number] [address] [place] [address], [place] [address] May, [facility] [address] [id number] [address] [place] [address], [place] [address] May, [facility] [address] [id number] [address] [place] [address], [place] [address] May, [facility] [address] [id number] [address] [place] [address], [place] [address] Apr, [facility] [address] [id number] [address] [place] [address], [place] [address] Apr, [facility] [address] [id number] [address] [place] [address], [place] [address] Mar, [facility] [address] [id number] [address] [place] [address], [place] [address] Mar, [facility] [address] [id number] [address] [place] [address], [place] [address] Mar, [facility] [address] [id number] [address] [place] [address], [place] [address] Mar, [facility] [address] [id number] [address] [place] [address], [place] [address] Feb, [facility] [address] [id number] [address] [place] [address], [place] [address] Jan, [facility] [address] [id number] [address] [place] [address], [place] [address] December, [facility] [address] [id number] [address] [place] [address], [place] [address] December, [facility] [address] [id number] [address] [place] [address], [place] [address] December, [facility] [address] [id number] [address] [place] [address], [place] [address] Nov, [facility] [address] [id number] [address] [place] [address], [place] [address] Nov, [facility] [address] [id number] [address] [place] [address], [place] [address] Sep, [facility] [address] [id number] [address] [place] [address], [place] [address] Sep, [facility] [address] [id number] [address] [place] [address], [place] [address] Sep, [facility] [address] [id number] [address] [place] [address], [place] [address] Sep, [facility] [address] [id number] [address] [place] [address], [place] [address] Aug, [facility] [address] [id number] [address] [place] [address], [place] [address] Aug, [facility] [address] [id number] [address] [place] [address], [place] [address] Aug, [facility] [address] [id number] [address] [place] [address], [place] [address] Aug, [facility] [address] [id number] [address] [place] [address], [place] [address] Jul, [facility] [address] [id number] [address] [place] [address], [place] [address] Jul, [facility] [address] [id number] [address] [place] [address], [place] [address] Jul, [facility] [address] [id number] [address] [place] [address], [place] [address] Jul, [facility] [address] [id number] [address] [place] [address], [place] [address] Jun, [facility] [address] [id number] [address] [place] [address], [place] [address] Jun, [facility] [address] [id number] [address] [place] [address], [place] [address] Jun, [facility] [address] [id number] [address] [place] [address], [place] [address] Jun, [facility] [address] [id number] [address] [place] [address], [place] [address] May, [facility] [address] [id number] [address] [place] [address], [place] [address] May, [facility] [address] [id number] [address] [place] [address], [place] [address] May, [facility] [address] [id number] [address] [place] [address], [place] [address] May, [facility] [address] [id number] [address] [place] [address], [place] [address] May, [facility] [address] [id number] [address] [place] [address], [place] [address] 10 Apr, 2012 [facility] [address] [id number] [address] [place] [address], [place] [address] 08 Apr, 2012 [facility] [address] [id number] [address] [place] [id number] 07 Apr, 2012 [facility] [address] [id number] [address] [place] [address], [place] [address] 06 Apr, 2012 [facility] [address] [id number] [address] [place] [address], [place] [address] Mar, [facility] [address] [id number] [address] [place] [address], [place] [address] Mar, [facility] [address] [id number] [address] [place] [address], [place] [address] Feb, [facility] [address] [id number] [address] [place] [address], [place] [address] Feb, [facility] [address] [id number] [address] [place] [address], [place] [address] Feb, [facility] [address] [id number] [address] [place] [address], [place] [address] Jan, [facility] [address] [id number] [address] [place] [address], [place] [address] Jan, [facility] [address] [id number] [address] [place] [address], [place] [address] December, [facility] [address] [id number] [address] [place] [address], [place] [address] December, [facility] [address] [id number] [address] [place] [address], [place] [address] Nov, [facility] [address] [id number] [address] [place] [address], [place] [address] Oct, [facility] [address] [id number] [address] [place] [address], [place] [address] Oct, [facility] [address] [id number] [address] [place] [address], [place] [address] Sep, [facility] [address] [id number] [address] [place] [address], [place] [address] Sep, [facility] [address] [id number] [address] [place] [address], [place] [address] Aug, [facility] [address] [id number] [address] [place] [address], [place] [address] Aug, [facility] [address] [id number] [address] [place] [address], [place] [address] Jul, [facility] [address] [id number] [address] [place] [address], [place] [address] Jul, [facility] [address] [id number] [address] [place] [address], [place] [address] 09 Jul, 2011 [facility] [address] [id number] [address] [place] [address], [place] [address] 07 Jun, 2011 [facility] [address] [id number] [address] [place] [address], [place] [address] 07 Jun, 2011 [facility] [address] [id number] [address] [place] [address], [place] [address] 13 May, 2011 [facility] [address] [id number] [address] [place] [address], [place] [address] May, [facility] [address] [id number] [address] [place] [address], [place] [address] May, [facility] [address] [id number] [address] [place] [address], [place] [address] Jul, [facility] [address] [id number] [address] [place] [address], [place] [address] Jul, [facility] [address] [id number] [address] [place] [address], [place] [address] 15 Jun, 2010 [facility] [address] [id number] [address] [place] [address], [place] [address] May, [facility] [address] [id number] [address] [place] [address], [place] [address] May, [facility] [address] [id number] [address] [place] [address], [place] [address] 14 Aug, 2009 [facility] [address] [id number] [address] [place] [address], [place] [address] 17 Jul, 2009 [facility] [address] [id number] [address] [place] [address], [place] [address] Jun, [facility] [address] [id number] [address] [place] [address], [place] [address] 10 Jun, 2009 [facility] [address] [id number] [address] [place] [id number] Jun, [facility] [address] [facility] [id number] [address] [place] [id number] Jun, [facility] [address] [facility] [id number] [address] [place] [id number] Jun, [facility] [address] [facility] [id number] [address] [place] [id number] May, [facility] [address] [facility] [id number] [address] [place] [id number] Sep, IMMUNIZATIONS No Known Immunizations SOCIAL HISTORY Never Assessed REASON FOR VISIT PLAN OF CARE VITAL SIGNS MEDICATIONS Unknown Medications RESULTS No Results PROCEDURES Procedure Date Ordered Result Body Site PROTHROMBIN TIME Aug 24, 2014 INSTRUCTIONS MEDICATIONS ADMINISTERED No Known Medications [...]
--- NOTE | 2020-01-28 14:25 | ED Lower Extremity ---
General Stated Complaint: R LEG PAIN Source: patient, EMS (mo hi ems) Exam Limitations: no limitations History of Present Illness Date Seen by Provider: Jan 28, 2020 Time Seen by Provider: 14:13 Initial Comments To ER by EMS with CC 2 weeks RLE pain originating in right paralumbar and radiating down to the foot. 2 visits to this ER adn one to [facility]. Dr Ballard was unavailable and her PCP, Penny Lopez could not see her yet. She has had CTs adn XR's without significant findings. Percocet helps but now she says the 7.5/325 are inadequate. No Hx of clots or recent trauma. She says it started after she rolled over on it. No dysuria. On Warfarin with adequate INR last week. Hx Afib. She has been told it is Sciatica. No Steroids. Allergies and Home Medications Allergies Coded Allergies: No Known Drug Allergies (Unverified , 03/07/13) Home Medications Albuterol 8.5 Gm Hfa.aer.ad, 2 PUFF IH Q6H PRN, (Reported) NEEDED FOR SHORTNESS OF BREATH Amlodipine Besylate 5 Mg Tablet, 5 MG PO DAILY, (Reported) Atorvastatin 20 Mg Tablet, 20 MG PO HS, (Reported) Azithromycin 250 Mg Tab, 250 MG PO DAILY Prescribed by: DAVID LYON on 03/09/13 1015 Budesonide/Formoterol Fumarate 10.2 Gm Hfa.aer.ad, 2 PUFF IH BID PRN, (Reported) NEEDED FOR BREATHING Cephalexin 500 Mg Tablet, 500 MG PO BID Prescribed by: PAULINE GUPTA on 01/14/20 0334 Esomeprazole Mag Trihydrate 40 Mg Capsule.dr, 40 MG PO HS, (Reported) Furosemide 40 Mg Tablet, 40 MG PO DAILY, (Reported) Hydrocodone/Acetaminophen 1 Each Tablet, 1 EACH PO Q6H PRN for PAIN-BREAKTHROUGH Prescribed by: PAULINE GUPTA on 01/14/20 0334 Ipratropium Lyons 12.9 Gm Aers, 2 PUFF INH QID PRN, (Reported) NEEDED FOR BREATHING Levothyroxine Sodium 150 Mcg Tablet, 150 MCG PO DAILY, (Reported) Lisinopril 40 Mg Tablet, 40 MG PO DAILY, (Reported) Potassium Chloride 10 Meq Tablet.sa, 10 MEQ PO HS, (Reported) Prednisone 20 Mg Tab, 20 MG PO DAILY Prescribed by: DAVID LYON on 03/09/13 1015 Sitagliptin Phosphate 100 Mg Tablet, 100 MG PO DAILY, (Reported) Tramadol Hcl 50 Mg Tablet, 50-100 MG PO TID PRN, (Reported) TAKES 1-2 (50MG) TABLETS THREE TIMES DAILY NEEDED FOR PAIN Warfarin Sodium 5 Mg Tablet, 5 MG PO HS, (Reported) Patient Home Medication List Home Medication List Reviewed: Yes Review of Systems Constitutional: No chills, No diaphoresis EENTM: No ear discharge, No ear pain Respiratory: No cough, No short of breath Cardiovascular: No chest pain, No edema Gastrointestinal: No abdominal pain, No constipation, No diarrhea Genitourinary: No discharge, No dysuria Musculoskeletal: see HPI, back pain, joint pain Skin: see HPI; No pruritus, No rash All Other Systems Reviewed Negative Unless Noted: Yes Past Vzlarhp-Yywiav-Nvmkhu Hx Patient Social History Alcohol Use: Denies Use Recreational Drug Use: No Smoking Status: Current Everyday Smoker Type Used: Cigarettes 2nd Hand Smoke Exposure: Yes Recent Hopitalizations: No Immunizations Up To Date Date of Pneumonia Vaccine: Mar 09, 2013 Seasonal Allergies Seasonal Allergies: No Past Medical History Surgeries: Yes (COLON REPAIR) Respiratory: Yes Asthma, Chronic Bronchitis, Sleep Apnea, COPD Cardiac: Yes Hypertension 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 History: Hysterectomy Sexually Transmitted Disease: No Genitourinary: No Gastrointestinal: Yes Gastroesophageal Reflux, Diverticulosis Musculoskeletal: Yes Osteoporosis, Arthritis, Chronic Back Pain Endocrine: Yes Hypothyroidsim, Diabetes, Non-Insulin dep HEENT: Yes Cataract Loss of Vision: Left Hearing Impairment: Hard of Hearing Cancer: No Psychosocial: Yes Anxiety Integumentary: No Blood Disorders: No Physical Exam Vital Signs Vital Signs - First Documented 01/28/20 14:14 Temp 36.6 Pulse 116 Resp 20 B/P (MAP) 156/89 (111) Pulse Ox 90 O2 Delivery Nasal Cannula O2 Flow Rate 4.00 Capillary Refill : Height, Weight, BMI Height: '64.00" Weight: 261lbs. oz. 118.874128sl; 46.00 BMI Method: General Appearance: mild distress, obese HEENT: PERRL/EOMI, pharynx normal Neck: full range of motion, supple, normal inspection Cardiovascular: normal peripheral pulses, regular rate, rhythm Respiratory: lungs clear, no respiratory distress (mild bronchial sounds), no accessory muscle use Gastrointestinal: normal bowel sounds, non tender, soft Hips: left hip non-tender; bilateral hip normal inspection, bilateral hip normal range of motion; left hip no evidence of injury; right hip soft tissue tenderness (posteriolateral) Legs: bilateral leg non-tender, bilateral leg normal inspection, bilateral leg normal range of motion, bilateral leg no evidence of injury Knees: bilateral knee non-tender, bilateral knee normal inspection, bilateral knee normal range of motion, bilateral knee no evidence of injury Neurologic/Tendon: normal sensation, normal motor functions, normal tendon functions, responds to pain 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, no motor/sensory deficits, alert, normal mood/affect, oriented x 3 Skin: normal color, warm/dry Progress/Results/Core Measures Results/Orders Lab Results Laboratory Tests Test 01/28/20 14:22 01/28/20 14:58 Range/Units White Blood Count 12.9 H 4.3-11.0 10^3/uL Red Blood Count 4.45 4.35-5.85 10^6/uL Hemoglobin 13.0 11.5-16.0 G/DL Hematocrit 40 35-52 % Mean Corpuscular Volume 89 80-99 FL Mean Corpuscular Hemoglobin 29 25-34 PG Mean Corpuscular Hemoglobin Concent 33 32-36 G/DL Red Cell Distribution Width 17.4 H 10.0-14.5 % Platelet Count 422 H 130-400 10^3/uL Mean Platelet Volume 8.8 7.4-10.4 FL Neutrophils (%) (Auto) 86 H 42-75 % Lymphocytes (%) (Auto) 5 L 12-44 % Monocytes (%) (Auto) 9 0-12 % Eosinophils (%) (Auto) 0 0-10 % Basophils (%) (Auto) 0 0-10 % Neutrophils # (Auto) 11.1 H 1.8-7.8 X 10^3 Lymphocytes # (Auto) 0.7 L 1.0-4.0 X 10^3 Monocytes # (Auto) 1.1 H 0.0-1.0 X 10^3 Eosinophils # (Auto) 0.0 0.0-0.3 10^3/uL Basophils # (Auto) 0.0 0.0-0.1 10^3/uL Neutrophils % (Manual) 87 % Lymphocytes % (Manual) 4 % Monocytes % (Manual) 9 % Eosinophils % (Manual) 0 % Basophils % (Manual) 0 % Band Neutrophils 0 % Blood Morphology Comment NORMAL Prothrombin Time 21.0 H 12.2-14.7 SEC INR Comment 1.7 H 0.8-1.4 Blood Gas Puncture Site R.RADIAL Blood Gas Patient Temperature 36.6 Arterial Blood pH 7.45 H 7.37-7.43 Arterial Blood Partial Pressure CO2 49 H 35-45 MMHG Arterial Blood Partial Pressure O2 63 L 79-93 MMHG Arterial Blood HCO3 33 H 23-27 MMOL/L Arterial Blood Total CO2 34.9 H 21.0-31.0 MMOL/L Arterial Blood Oxygen Saturation 94 94-100 % Arterial Blood Base Excess 9.0 H -2.5-2.5 MMOL/L Jerrell Test YES-POS Blood Gas Ventilator Setting NO Blood Gas Inspired Oxygen ROOM AIR Sodium Level 129 L 135-145 MMOL/L Potassium Level 5.2 H 3.6-5.0 MMOL/L Chloride Level 90 L 98-107 MMOL/L Carbon Dioxide Level 26 21-32 MMOL/L Anion Gap 13 5-14 MMOL/L Blood Urea Nitrogen 12 7-18 MG/DL Creatinine 0.86 0.60-1.30 MG/DL Estimat Glomerular Filtration Rate > 60 BUN/Creatinine Ratio 14 Glucose Level 243 H 70-105 MG/DL Calcium Level 9.0 8.5-10.1 MG/DL Corrected Calcium 10.0 8.5-10.1 MG/DL Total Bilirubin 0.6 0.1-1.0 MG/DL Aspartate Amino Transf (AST/SGOT) 34 5-34 U/L Alanine Aminotransferase (ALT/SGPT) 25 0-55 U/L Alkaline Phosphatase 102 40-136 U/L C-Reactive Protein High Sensitivity > 16.00 H 0.00-0.50 MG/DL Total Protein 7.6 6.4-8.2 GM/DL Albumin 2.8 L 3.2-4.5 GM/DL Urine Color YELLOW Urine Clarity CLEAR Urine pH 5.5 5-9 Urine Specific Tyner 1.020 1.016-1.022 Urine Protein NEGATIVE NEGATIVE Urine Glucose (UA) TRACE H NEGATIVE Urine Ketones NEGATIVE NEGATIVE Urine Nitrite NEGATIVE NEGATIVE Urine Bilirubin NEGATIVE NEGATIVE Urine Urobilinogen 1.0 < = 1.0 MG/DL Urine Leukocyte Esterase NEGATIVE NEGATIVE Urine RBC (Auto) 2+ H NEGATIVE Urine RBC 2-5 H /HPF Urine WBC NONE /HPF Urine Squamous Epithelial Cells 0-2 /HPF Urine Crystals NONE /LPF Urine Bacteria NEGATIVE /HPF Urine Casts NONE /LPF Urine Mucus NEGATIVE /LPF Urine Culture Indicated NO My Orders Orders - PAULINE GUPTA Albuterol/Ipra Inhalation Soln (Duoneb I (01/28/20 14:30) Chest 1 View, Ap/Pa Only (01/28/20 14:18) Ed Iv/Invasive Line Start (01/28/20 14:18) Ns Iv 500 Ml (Sodium Chloride 0.9%) (01/28/20 14:18) Svn Small Volume Nebulizer (01/28/20 14:18) Cbc With Automated Diff (01/28/20 14:18) Comprehensive Metabolic Panel (01/28/20 14:18) Hs C Reactive Protein (01/28/20 14:18) Ua Culture If Indicated (01/28/20 14:18) Straight Cath For Spec.-Adult (01/28/20 14:18) Protime With Inr (01/28/20 14:18) Arterial Blood Gas (01/28/20 14:25) Ct Lumbar Spine Wo (01/28/20 14:26) Fentanyl Injection (Sublimaze Injection (01/28/20 14:30) Manual Differential (01/28/20 14:22) Medications Given in ED Current Medications Medications Dose Ordered Sig/Jordan Route Start Time Stop Time Status Last Admin Dose Admin Albuterol/ Ipratropium 3 ml ONCE ONCE INH 01/28/20 14:30 01/28/20 14:31 DC 01/28/20 14:46 3 ML Fentanyl Citrate 75 mcg ONCE ONCE IVP 01/28/20 14:30 01/28/20 14:31 DC 01/28/20 14:35 75 MCG Sodium Chloride 500 ml @ 0 mls/hr Q0M ONCE IV 01/28/20 14:18 01/28/20 14:22 DC 01/28/20 14:35 0 MLS/HR Vital Signs/I&O 01/28/20 01/28/20 14:14 15:52 Temp 36.6 Pulse 116 Resp 20 B/P (MAP) 156/89 (111) Pulse Ox 90 92 O2 Delivery Nasal Cannula Nasal Cannula O2 Flow Rate 4.00 5.00 Progress Progress Note : Time: 14:52 Progress Note 75 mcg fentanyl improved her pain. Sounds like Sciatica. Will obtain CT lumbar spine, UA and basic lab including PT INR to rule out likelyhood of DVT. No clinical evidence other than pain. Pain reproduced by palpation low back. If otherwise ok then will attempt point injection with depo-medrol and bupivicaine. UA by straight cath. Bronchial lung sounds and spo2 94% on 4lpm baseline O2. She is panting because of pain and the ABG bears that out. Duoneb given and put NC in her mouth and SpO2 normal. Diagnostic Imaging Diagonstic Imaging: Xray Plain Films/CT/US/NM/MRI: chest (1v) Comments [facility] [place], [place] NAME: SHMUEL POSADAS [facility] REC#: [id number] PT STATUS: REG ER : 1950 PHYSICIAN: PAULINE GUPTA MD ADMIT DATE: 01/28/20/ER Draft Date of Exam:01/28/20 CHEST 1 VIEW, AP/PA ONLY HISTORY: Shortness of air. TECHNIQUE: Frontal view of the chest. COMPARISON: 03/08/2013. FINDINGS: Lung volumes are normal. No focal consolidation is seen. There is no pleural effusion or pneumothorax. Nodular density at the right lung apex appears persistent since 2012 and is thought to represent degenerative change at the 1st rib costochondral junction. There is aortic atherosclerosis. The cardiac silhouette is normal in size. IMPRESSION: No acute pulmonary abnormality is seen. Dictated on workstation # [id number] Dict: 01/28/20 1544 Trans: 01/28/20 1551 [facility] [id number] Interpreted by: SD BUENROSTRO MD Electronically signed by: Reviewed: Reviewed by Me Diagonstic Imaging: CT (without IV contrast.) Plain Films/CT/US/NM/MRI: other (Lumbar spine) Comments [facility] [place] [place] [facility] [id number] PT STATUS: REG ER : 1950 PHYSICIAN: PAULINE GUPTA MD ADMIT DATE: 01/28/20/ER Draft Date of Exam:01/28/20 CT LUMBAR SPINE WO PROCEDURE: CT lumbar spine without contrast. TECHNIQUE: Multiple contiguous axial images were obtained through the lumbar spine without the use of intravenous contrast. Sagittal and coronal reformations were then performed. Auto Exposure Controls were utilized during the CT exam to meet ALARA standards for radiation dose reduction. INDICATION: Right lower extremity pain. COMPARISON: None. FINDINGS: There are five lumbar-type vertebral bodies. Normal alignment. Vertebral body heights preserved. No fracture. Mild to moderate degenerative endplate changes and facet arthropathy. No high-grade spinal canal stenosis is evident on soft tissue windows. There are moderate degenerative changes in the visualized sacroiliac joints. The visualized paravertebral soft tissues are unremarkable. IMPRESSION: 1. No acute CT finding in the lumbar spine. Mild to moderate spondylotic changes. 2. Moderate degenerative changes in the sacroiliac joints. Dictated on workstation # [id number] Dict: 01/28/20 1543 Trans: 01/28/20 1550 [facility] [id number] Interpreted by: EFRA BOWMAN MD Electronically signed by: Reviewed: Reviewed by Me Departure Impression Primary Impression: Lumbago with sciatica, left side Qualified Codes: M54.42 - Lumbago with sciatica, left side Disposition: 01 HOME, SELF-CARE Condition: Stable Departure-Patient Inst. Decision time for Depature: 16:14 Referrals: PENNY RODRIGUEZ (PCP) Primary Care Physician [facility] (Family) Primary Care Physician Patient Instructions: Low Back Pain (DC), Sciatica Add. Discharge Instructions: Follow up with your primary Dr's office. Continue to use pain meds as prescribed. The steroid should kick in in 12 hours and last 5-7 days. Heating pads, icy hot etc for the back. PAULINE GUPTA Jan 28, 2020 14:25
--- OUTSIDE RECORDS SUMMARY | 2020-01-28 14:25 | XMS REPORT ---
Author Author Katarina RODRIGUEZ Organization [facility] Address [address] [place] [address] Care Team Providers Care Pain Management Physician Name Role Phone GEORGINA RODRIGUEZ Unavailable PROBLEMS Type Condition ICD9-CM Code [id number] Code Onset Dates Condition S tatus SNOMED Code Problem Osteoarthritis M19.90 Active 09202 5006 Problem Chronic obstructive pulmonary disease, unspecified COPD ty pe J44.9 Active 93437283 Problem Acquired hypothyroidism E03.9 Active 244071855 Problem Cigarette nicotine dependence without complication F17.210 Active 26003845 Problem Diabetes E11.9 Active 440357139 Problem High risk medication use Z79.899 Activ e 524857552 Problem Urinary incontinence, unspecified type R32 Active 051503715 Problem senior living (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.01 Active 396068530 Problem Morbid obesity, unspecified obesity type E66.01 Active 031536041 Problem Other chronic pain G89.29 Active 8 1840513 Problem History of cataract surgery Z98.49 Ac tive 994190705 Problem Type 2 diabetes mellitus wit h hyperglycemia, without long-term current use of insulin E11.65 Active 33753578 Problem Encounter for immunization Z23 Act essie 992631365 Problem Irregular heart beats I49.9 Active 500711188 Problem Other urinary incontinence N39.498 Act essie 093508496 Problem Essential hypertension I10 Active 32475789 Problem Chronic atrial fibrillation I48.2 Ac tive 116020592 ALLERGIES No Information ENCOUNTERS Encounter Location Date Diagnosis [facility] [address] [facility] [id number] [address] [place] [phone] Oct, [facility] [address] [facility] [id number] [address] [place] [address] Oct, senior living (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 a 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 Z79.01 [facility] [address] [id number] [address] [place] [address] Oct, 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 Z79.01 [facility] [address] [id number] [address] [place] [address] Sep, [facility] [address] [id number] [address] [place] [address] Aug, Osteoarthritis M19.90 [facility] [address] [id number] [address] [place] [address] Aug, Diabetes E11.9 ; senior living ( 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.01 ; Tobacco abuse Z72.0 ; Low back pain M54.5 and Chronic atrial fibrillation I48.2 [place] [address] [id number] [address] [place] [address] Aug, Diabetes E11.9 [facility] [address] [facility] [id number] [address] [place] [address] Aug, [facility] [address] [id number] [address] [place] [phone] 08 Aug, 2019 Acute non-recurrent pansinus itis J01.40 and Non- recurrent acute suppurative otitis media of left ear without spontaneous rupture of tympanic membrane H66.002 [place] [address] [id number] [address] [place] [address] Aug, [facility] [address] [id number] [address] [place] [address] Aug, 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 Z79.01 [facility] [address] [id number] [address] [place] [address] Aug, 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 Z79.01 [facility] [address] [id number] [address] [place] [address] Jul, Osteoarthritis M19.90 [facility] [address] [facility] [id number] [address] [place] [address] Jul, Osteoarthritis M19.90 [facility] [address] [id number] [address] [place] [address] Jun, [facility] [address] [id number] [address] [place] [address] Jun, Chronic atrial fibrillation I48.2 [facility] [address] [facility] [id number] [address] [place] [address] Jun, Osteoarthritis M19.90 [facility] [address] [id number] [address] [place] [address] Jun, Chronic atrial fibrillation I48.2 [facility] [address] [id number] [address] [place] [address] May, Osteoarthritis M19.90 [facility] [address] [facility] [id number] [address] [place] [address] May, Chronic atrial fibrillation I48.2 [facility] [address] [id number] [address] [place] [address] Apr, Osteoarthritis M19.90 [facility] [address] [facility] [id number] [address] [place] [address] Mar, Chronic atrial fibrillation I48.2 [facility] [address] [facility] [id number] [address] [place] [address] Mar, Chronic atrial fibrillation I48.2 [facility] [address] [facility] [id number] [address] [place] [address] Mar, Osteoarthritis M19.90 [facility] [address] [facility] [id number] [address] [place] [address] Mar, Chronic atrial fibrillation I48.2 [facility] [address] [facility] [id number] [address] [place] [address] Mar, Type 2 diabetes mellitus wit h hyperglycemia, without long-term current use of insulin E11.65 ; Chronic atrial fibrillation I48.2 and Morbid obesity E66.01 [facility] [address] [id number] [address] [place] [address] Feb, Osteoarthritis M19.90 [facility] [address] [id number] [address] [place] [address] Feb, Chronic atrial fibrillation I48.2 [facility] [address] [id number] [address] [place] [address] Feb, Hyperglycemia R73.9 ; Diabet es E11.9 ; Morbid obesity E66.01 ; Acquired hypothyroidism E03.9 ; Osteoarthritis M19.90 and High risk medication use Z79.899 [facility] [address] [id number] [address] [place] [address] Feb, Chronic atrial fibrillation I48.2 [facility] [address] [id number] [address] [place] [address] Jan, Osteoarthritis M19.90 [facility] [address] [id number] [address] [place] [address] Jan, Chronic atrial fibrillation I48.2 [facility] [address] [id number] [address] [place] [address] Jan, Chronic atrial fibrillation I48.2 [facility] [address] [id number] [address] [place] [address] Jan, Chronic atrial fibrillation I48.2 [facility] [address] [facility] [id number] [address] [place] [address] Jan, senior living (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 a 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 Z79.01 [facility] [address] [id number] [address] [place] [address] December, [facility] [address] [id number] [address] [place] [address] December, [facility] [address] [facility] [id number] [address] [place] [address] December, Osteoarthritis M19.90 [facility] [address] [id number] [address] [place] [address] Nov, [facility] [address] [id number] [address] [place] [address] Nov, Osteoarthritis M19.90 [facility] [address] [id number] [address] [place] [address] Oct, Osteoarthritis M19.90 [facility] [address] [facility] [id number] [address] [place] [address] Sep, Osteoarthritis M19.90 [facility] [address] [facility] [id number] [address] [place] [address] Sep, senior living (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 a 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 Z79.01 ; BMI 45.0-49.9, adult Z68.42 ; Diabetes E11.9 ; Chronic atrial fibrillation I48.2 and Chronic obstructive pulmonary disease, unspecified COPD type J44.9 [facility] [address] [facility] [id number] [address] [place] [address] Sep, Diabetes E11.9 ; senior living ( 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.01 ; Chronic atrial fibrillation I48.2 ; Chronic obstructive pulmonary disease, unspecified COPD type J44.9 and BMI 45.0-49.9, adult Z68.42 [facility] [address] [facility] [id number] [address] [place] [address] Aug, Osteoarthritis M19.90 [facility] [address] [facility] [id number] [address] [place] [address] Aug, [facility] [address] [facility] [id number] [address] [place] [address] Aug, senior living (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 a 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 Z79.01 ; BMI 45.0-49.9, adult Z68.42 ; Diabetes E11.9 and Chronic atrial fibrillation I48.2 [facility] [address] [facility] [id number] [address] [place] [address] Aug, [facility] [address] [id number] [address] [place] [address] Jul, Osteoarthritis M19.90 [facility] [address] [id number] [address] [place] [address] Jun, Osteoarthritis M19.90 [facility] [address] [facility] [id number] [address] [place] [address] Jun, senior living (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 a 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 Z79.01 [facility] [address] [facility] [id number] [address] [place] [address] Jun, Chronic atrial fibrillation I48.2 and 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 [place] [address] [facility] [id number] [address] [place] [address] Jun, Osteoarthritis M19.90 [place] [address] [place] [id number] [place] [address] May, Encounter for immunization Z 23 [facility] [address] [facility] [id number] [address] [place] [address] May, 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 Z79.01 [facility] [address] [facility] [id number] [address] [place] [address] May, Osteoarthritis M19.90 [place] [address] [place] [id number] [address] [place] [address] May, [facility] [address] [facility] [id number] [address] [place] [address] May, Diabetes E11.9 ; senior living ( 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.01 ; Chronic atrial fibrillation I48.2 ; BMI 45.0-49.9, adult Z68.42 ; Osteoarthritis M19.90 ; Low back pain M54.5 and Other chronic pain G89.29 [facility] [address] [facility] [id number] [address] [place] [address] Apr, Chronic atrial fibrillation I48.2 [place] [address] [facility] [id number] [address] [place] [address] 13 Apr, 2018 senior living (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 a 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 Z79.01 [facility] [address] [id number] [address] [place] [address] 07 Apr, 2018 Osteoarthritis M19.90 [facility] [address] [id number] [address] [place] [address] 04 Apr, 2018 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 Z79.01 and Chronic atrial fibrillation I48.2 [facility] [address] [id number] [address] [place] [address] Mar, Osteoarthritis M19.90 [facility] [address] [id number] [address] [place] [address] Feb, Osteoarthritis M19.90 [facility] [address] [facility] [id number] [address] [place] [address] Jan, Osteoarthritis M19.90 [facility] [address] [id number] [address] [place] [address] December, [facility] [address] [id number] [address] [place] [address] December, Osteoarthritis M19.90 [facility] [address] [facility] [id number] [address] [place] [address] Nov, Diabetes E11.9 ; senior living ( 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.01 ; Acquired hypothyroidism E03.9 ; Cigarette nicotine dependence without complication F17.210 ; Osteoarthritis M19.90 ; BMI 45.0-49.9, adult Z68.42 and Chronic atrial fibrillation I48.2 [facility] [address] [id number] [address] [place] [address] Nov, Osteoarthritis M19.90 [facility] [address] [id number] [address] [place] [address] Oct, Osteoarthritis M19.90 [facility] [address] [facility] [id number] [address] [place] [address] Oct, 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 Z79.01 [facility] [address] [facility] [id number] [address] [place] [address] Sep, Osteoarthritis M19.90 [facility] [address] [facility] [id number] [address] [place] [address] Sep, [facility] [address] [place] [id number] [address] [place] [address] Aug, Osteoarthritis M19.90 [facility] [address] [facility] [id number] [address] [place] [address] Jul, Osteoarthritis M19.90 [facility] [address] [address] Jul, Osteoarthritis M19.90 [facility] [address] [address] Jun, Diabetes E11.9 ; Encounter f or immunization Z23 ; 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 ; Chronic atrial fibrillation I48.2 ; Osteoarthritis M19.90 ; Tobacco abuse Z72.0 and Bug bite, initial encounter W57.XXXA [facility] [address] [address] May, Osteoarthritis M19.90 [facility] [address] [address] Apr, Osteoarthritis M19.90 [facility] [address] [place] [id number] [address] [place] [address] Mar, Chronic atrial fibrillation I48.2 [facility] [address] [place] [id number] [place] [address] Mar, [facility] [address] [place] [id number] [address] [place] [address] Mar, Osteoarthritis M19.90 [facility] [address] [place] [id number] [address] [place] [address] Mar, senior living (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 a 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 Z79.01 and Chronic atrial fibrillation I48.2 [facility] [address] [id number] [address] [place] [address] Mar, Chronic atrial fibrillation I48.2 and 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 [facility] [address] [id number] [address] [place] [address] Mar, 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 Z79.01 [place] [address] [id number] [address] [place] [address] Mar, 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 Z79.01 [place] [address] [id number] [address] [place] [address] Mar, Osteoarthritis M19.90 [place] [address] [id number] [address] [place] [address] Feb, Encounter for screening mamm ogram for malignant neoplasm of breast Z12.31 [place] [address] [id number] [address] [place] [address] Feb, Osteoarthritis M19.90 [place] [address] [id number] [address] [place] [address] Jan, [place] [address] [id number] [address] [place] [address] Jan, senior living (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 a 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 Z79.01 ; Diabetes E11.9 ; Osteoarthritis M19.90 and Breast cancer screening Z12.39 [place] [address] [id number] [address] [place] [address] Jan, Osteoarthritis M19.90 [place] [address] [id number] [address] [place] [address] Jan, Osteoarthritis M19.90 [facility] [address] [facility] [id number] [address] [place] [address] Jan, [facility] [address] [facility] [id number] [address] [place] [address] December, Osteoarthritis M19.90 [facility] [address] [facility] [id number] [address] [place] [address] December, Osteoarthritis M19.90 [facility] [address] [id number] [id number] Nov, [facility] [address] [facility] [id number] [address] [place] [address] Nov, [facility] [address] [facility] [id number] [address] [place] [address] Nov, [facility] [address] [facility] [id number] [address] [place] [address] Nov, Diabetes E11.9 [place] [address] [facility] [id number] [address] [place] [address] Nov, [facility] [address] [facility] [id number] [address] [place] [address] Oct, Osteoarthritis M19.90 [facility] [address] [facility] [id number] [address] [place] [address] Oct, Osteoarthritis M19.90 ; 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 ; Diabetes E11.9 ; Cigarette nicotine dependence without complication F17.210 and Chronic atrial fibrillation I48.2 [place] [address] [facility] [id number] [address] [place] [address] Aug, [facility] [address] [facility] [id number] [address] [place] [address] Aug, senior living (current) use of a 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 Z79.01 [facility] [address] [facility] [id number] [address] [place] [address] Aug, [facility] [address] [id number] [id number] Aug, [place] [address] [place] [id number] [address] [place] [address] Aug, [facility] [address] [address] Aug, [facility] [id number] [place] [id number] Aug, [employer] [address] [place] [id number] Aug Osteoarthritis M19.90 and Essential hypertension I10 [facility] [address] [address] Aug, Other urinary incontinence N 39.498 [place] [address] [address] Jul, Osteoarthritis M19.90 [place] [address] [address] Jun, Diabetes E11.9 ; Encounter f or immunization Z23 ; Osteoarthritis M19.90 ; senior living (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.01 ; Cigarette nicotine dependence without complication F17.210 ; Acquired hypothyroidism E03.9 ; Morbid obesity, unspecified obesity type E66.01 and Irregular heart beats I49.9 [facility] [address] [place] [address] Jun, Osteoarthritis M19.90 [place] [address] [address] May, Osteoarthritis M19.90 [facility] [address] [address] May, Urinary incontinence, unspec ified type R32 [place] [address] [address] May, [facility] [address] [place] [id number] [address] [place] [address] Apr, Osteoarthritis M19.90 [facility] [address] [address] Apr, 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 Z79.01 [facility] [address] [facility] [id number] [address] [place] [address] Apr, [facility] [address] [facility] [id number] [address] [place] [address] Apr, Osteoarthritis M19.90 [facility] [address] [facility] [id number] [address] [place] [address] Mar, Diabetes E11.9 ; Hypothyroid ism, unspecified type E03.9 ; Osteoarthritis M19.90 ; High risk medication use Z79.899 ; Cigarette nicotine dependence without complication F17.210 and Morbid obesity, unspecified obesity type E66.01 [place] [address] [facility] [id number] [address] [place] [phone] Mar, Osteoarthritis M19.90 [place] [address] [address] [facility] [id number] [address] [place] [phone] December, Osteoarthritis M19.90 [place] [address] [address] [facility] [id number] [address] [place] [phone] December, [place] [address] [address] [facility] [id number] [address] [place] [phone] Oct, [place] [address] [address] [facility] [id number] [address] [place] [phone] Oct, [place] [address] [address] [facility] [id number] [address] [place] [phone] Aug, [facility] [address] [facility] [id number] [address] [place] [phone] Jul, [place] [address] [address] [facility] [id number] [address] [place] [id number] Jul, [place] [address] [address] [facility] [id number] [address] [place] [phone] Jul, Diabetes E11.9 ; Encounter f or immunization Z23 ; Abnormal mammogram R92.8 ; Acquired hypothyroidism E03.9 ; High risk medication use Z79.899 ; Osteoarthritis M19.90 and Cigarette nicotine dependence without complication F17.210 [facility] [address] [id number] [address] [place] [id number] Jul, [facility] [address] [facility] [id number] [address] [place] [phone] Jun, Abnormal mammogram R92.8 [facility] [address] [id number] [address] [place] [id number] Apr, [facility] [address] [id number] [address] [place] [phone] Apr, [facility] [address] [id number] [address] [place] [phone] Mar, [facility] [address] [id number] [address] [place] [phone] Mar, Current use of 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 ant 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 V58.61 [facility] [address] [id number] [address] [place] [phone] Feb, [facility] [address] [id number] [address] [place] [phone] Jan, [facility] [address] [facility] [id number] [address] [place] [phone] December, [facility] [address] [id number] [address] [place] [phone] Nov, [facility] [address] [id number] [address] [place] [phone] Nov, [facility] [address] [id number] [address] [place] [phone] Oct, [facility] [address] [id number] [address] [place] [phone] Oct, [facility] [address] [id number] [address] [place] [phone] 17 Oct, 2014 [facility] [address] [id number] [address] [place] [address], [place] [phone] 17 Oct, 2014 [facility] [address] [id number] [address] [place] [address], [place] [phone] Oct, [facility] [address] [id number] [address] [place], [place] [address], [place] [address] Oct, [facility] [address] [id number] [address] [place] [address], [place] [address] Sep, [facility] [address] [id number] [address] [place] [address], [place] [address] Sep, [facility] [address] [id number] [address] [place] [address], [place] [address] Sep, [facility] [address] [id number] [address] [place] [address], [place] [address] Sep, [facility] [address] [id number] [address] [place] [address], [place] [address] Aug, [facility] [address] [id number] [address] [place] [address], [place] [address] Aug, [facility] [address] [id number] [address] [place] [address], [place] [address] Aug, [facility] [address] [id number] [address] [place] [address], [place] [address] Aug, [facility] [address] [id number] [address] [place] [address], [place] [address] Aug, [facility] [address] [id number] [address] [place] [address], [place] [address] Aug, [facility] [address] [id number] [address] [place] [address], [place] [address] Jul, [facility] [address] [id number] [address] [place] [address], [place] [address] Jul, [facility] [address] [id number] [address] [place] [address], [place] [address] Jul, [facility] [address] [id number] [address] [place] [address], [place] [address] Jul, [facility] [address] [id number] [address] [place] [address], [place] [address] Jul, [facility] [address] [id number] [address] [place] [address], [place] [address] Jul, [facility] [address] [id number] [address] [place] [address], [place] [address] Jun, [facility] [address] [id number] [address] [place] [address], [place] [address] Jun, [facility] [address] [id number] [address] [place] [address], [place] [address] Jun, [facility] [address] [id number] [address] [place] [address], [place] [address] Jun, [facility] [address] [id number] [address] [place] [address], [place] [address] Jun, [facility] [address] [id number] [address] [place] [address], [place] [address] Jun, [facility] [address] [id number] [address] [place] [address], [place] [address] Jun, [facility] [address] [id number] [address] [place] [address], [place] [address] Jun, [facility] [address] [id number] [address] [place] [address], [place] [address] Jun, [facility] [address] [id number] [address] [place] [address], [place] [address] May, [facility] [address] [id number] [address] [place] [address], [place] [address] May, [facility] [address] [id number] [address] [place] [address], [place] [address] Apr, [facility] [address] [id number] [address] [place] [address], [place] [address] Apr, 2013 [facility] [address] [id number] [address] [place] [address], [place] [address] Apr, 2013 [facility] [address] [id number] [address] [place] [address], [place] [address] Apr, 2013 [facility] [address] [id number] [address] [place] [address], [place] [address] Apr, 2013 [facility] [address] [id number] [address] [place] [address], [place] [address] Apr, 2013 [facility] [address] [id number] [address] [place] [address], [place] [address] Apr, 2013 [facility] [address] [id number] [address] [place] [address], [place] [address] Apr, 2013 [facility] [address] [id number] [address] [place] [address], [place] [address] Apr, [facility] [address] [id number] [address] [place] [address], [place] [address] Apr, [facility] [address] [id number] [address] [place] [address], [place] [address] Mar, [facility] [address] [id number] [address] [place] [address], [place] [address] Mar, [facility] [address] [id number] [address] [place] [address], [place] [address] Mar, [facility] [address] [id number] [address] [place] [address], [place] [address] Mar, [facility] [address] [id number] [address] [place] [address], [place] [address] Mar, [facility] [address] [id number] [address] [place] [address], [place] [address] Mar, [facility] [address] [id number] [address] [place] [address], [place] [address] Feb, [facility] [address] [id number] [address] [place] [address], [place] [address] Feb, [facility] [address] [id number] [address] [place] [address], [place] [address] Feb, [facility] [address] [id number] [address] [place] [address], [place] [address] Feb, [facility] [address] [id number] [address] [place] [address], [place] [address] Jan, [facility] [address] [id number] [address] [place] [address], [place] [address] Jan, [facility] [address] [id number] [address] [place] [address], [place] [address] Jan, [facility] [address] [id number] [address] [place] [address], [place] [address] Jan, [facility] [address] [id number] [address] [place] [address], [place] [address] Oct, [facility] [address] [id number] [address] [place] [address], [place] [address] Oct, [facility] [address] [id number] [address] [place] [address], [place] [address] Sep, [facility] [address] [id number] [address] [place] [address], [place] [address] Sep, [facility] [address] [id number] [address] [place] [address], [place] [address] Sep, [facility] [address] [id number] [address] [place] [address], [place] [address] Sep, [facility] [address] [id number] [address] [place] [address], [place] [address] Aug, [facility] [address] [id number] [address] [place] [address], [place] [address] Aug, [facility] [address] [id number] [address] [place] [address], [place] [address] Aug, [facility] [address] [id number] [address] [place] [address], [place] [address] Aug, [facility] [address] [id number] [address] [place] [address], [place] [address] 30 Jul, 2013 [facility] [address] [id number] [address] [place] [address], [place] [address] 30 Jul, 2013 [facility] [address] [id number] [address] [place] [address], [place] [address] Jul, [facility] [address] [id number] [address] [place] [address], [place] [address] Jul, [facility] [address] [id number] [address] [place] [address], [place] [address] Jul, [facility] [address] [id number] [address] [place] [address], [place] [address] Jul, [facility] [address] [id number] [address] [place] [address], [place] [address] Jun, [facility] [address] [id number] [address] [place] [address], [place] [address] Jun, [facility] [address] [id number] [address] [place] [address], [place] [address] Jun, [facility] [address] [id number] [address] [place] [address], [place] [address] Jun, [facility] [address] [id number] [address] [place] [address], [place] [address] Jun, [facility] [address] [id number] [address] [place] [address], [place] [address] Jun, [facility] [address] [id number] [address] [place] [address], [place] [address] May, [facility] [address] [id number] [address] [place] [address], [place] [address] May, [facility] [address] [id number] [address] [place] [address], [place] [address] May, [facility] [address] [id number] [address] [place] [address], [place] [address] May, [facility] [address] [id number] [address] [place] [address], [place] [address] May, [facility] [address] [id number] [address] [place] [address], [place] [address] May, [facility] [address] [id number] [address] [place] [address], [place] [address] May, [facility] [address] [id number] [address] [place] [address], [place] [address] May, [facility] [address] [id number] [address] [place] [address], [place] [address] Apr, [facility] [address] [id number] [address] [place] [address], [place] [address] Apr, [facility] [address] [id number] [address] [place] [address], [place] [address] Mar, [facility] [address] [id number] [address] [place] [address], [place] [address] Mar, [facility] [address] [id number] [address] [place] [address], [place] [address] Mar, [facility] [address] [id number] [address] [place] [address], [place] [address] Mar, [facility] [address] [id number] [address] [place] [address], [place] [address] Feb, [facility] [address] [id number] [address] [place] [address], [place] [address] Jan, [facility] [address] [id number] [address] [place] [address], [place] [address] December, [facility] [address] [id number] [address] [place] [address], [place] [address] December, [facility] [address] [id number] [address] [place] [address], [place] [address] December, [facility] [address] [id number] [address] [place] [address], [place] [address] Nov, [facility] [address] [id number] [address] [place] [address], [place] [address] Nov, [facility] [address] [id number] [address] [place] [address], [place] [address] Sep, [facility] [address] [id number] [address] [place] [address], [place] [address] Sep, [facility] [address] [id number] [address] [place] [address], [place] [address] Sep, [facility] [address] [id number] [address] [place] [address], [place] [address] Sep, [facility] [address] [id number] [address] [place] [address], [place] [address] Aug, [facility] [address] [id number] [address] [place] [address], [place] [address] Aug, [facility] [address] [id number] [address] [place] [address], [place] [address] Aug, [facility] [address] [id number] [address] [place] [address], [place] [address] Aug, [facility] [address] [id number] [address] [place] [address], [place] [address] Jul, [facility] [address] [id number] [address] [place] [address], [place] [address] Jul, [facility] [address] [id number] [address] [place] [address], [place] [address] Jul, [facility] [address] [id number] [address] [place] [address], [place] [address] Jul, [facility] [address] [id number] [address] [place] [address], [place] [address] Jun, [facility] [address] [id number] [address] [place] [address], [place] [address] Jun, [facility] [address] [id number] [address] [place] [address], [place] [address] Jun, [facility] [address] [id number] [address] [place] [address], [place] [address] Jun, [facility] [address] [id number] [address] [place] [address], [place] [address] May, [facility] [address] [id number] [address] [place] [address], [place] [address] May, [facility] [address] [id number] [address] [place] [address], [place] [address] May, [facility] [address] [id number] [address] [place] [address], [place] [address] May, [facility] [address] [id number] [address] [place] [address], [place] [address] May, [facility] [address] [id number] [address] [place] [address], [place] [address] 10 Apr, 2012 [facility] [address] [id number] [address] [place] [address], [place] [address] 08 Apr, 2012 [facility] [address] [id number] [address] [place] [address] 07 Apr, 2012 [facility] [address] [id number] [address] [place] [address], [place] [address] 06 Apr, 2012 [facility] [address] [id number] [address] [place] [address], [place] [address] Mar, [facility] [address] [id number] [address] [place] [address], [place] [address] Mar, [facility] [address] [id number] [address] [place] [address], [place] [address] Feb, [facility] [address] [id number] [address] [place] [address], [place] [address] Feb, [facility] [address] [id number] [address] [place] [address], [place] [address] Feb, [facility] [address] [id number] [address] [place] [address], [place] [address] Jan, [facility] [address] [id number] [address] [place] [address], [place] [address] Jan, [facility] [address] [id number] [address] [place] [address], [place] [address] December, [facility] [address] [id number] [address] [place] [address], [place] [address] December, [facility] [address] [id number] [address] [place] [address], [place] [address] Nov, [facility] [address] [id number] [address] [place] [address], [place] [address] Oct, [facility] [address] [id number] [address] [place] [address], [place] [address] Oct, [facility] [address] [id number] [address] [place] [address], [place] [address] Sep, [facility] [address] [id number] [address] [place] [address], [place] [address] Sep, [facility] [address] [id number] [address] [place] [address], [place] [address] Aug, [facility] [address] [id number] [address] [place] [address], [place] [address] Aug, [facility] [address] [id number] [address] [place] [address], [place] [address] Jul, [facility] [address] [id number] [address] [place] [address], [place] [address] Jul, [facility] [address] [id number] [address] [place] [address], [place] [address] 09 Jul, 2011 [facility] [address] [id number] [address] [place] [address], [place] [address] 07 Jun, 2011 [facility] [address] [id number] [address] [place] [address], [place] [address] 07 Jun, 2011 [facility] [address] [id number] [address] [place] [address], [place] [address] 13 May, 2011 [facility] [address] [id number] [address] [place] [address], [place] [address] May, [facility] [address] [id number] [address] [place] [address], [place] [address] May, [facility] [address] [id number] [address] [place] [address], [place] [address] Jul, [facility] [address] [id number] [address] [place] [address], [place] [address] Jul, [facility] [address] [id number] [address] [place] [address], [place] [address] 15 Jun, 2010 [facility] [address] [id number] [address] [place] [address], [place] [address] May, [facility] [address] [id number] [address] [place] [address], [place] [address] May, [facility] [address] [id number] [address] [place] [address], [place] [address] 14 Aug, 2009 [facility] [address] [id number] [address] [place] [address], [place] [address] 17 Jul, 2009 [facility] [address] [id number] [address] [place] [address], [place] [address] Jun, [facility] [address] [id number] [address] [place] [address], [place] [address] 10 Jun, 2009 [facility] [address] [id number] [address] [place] [address] Jun, [facility] [address] [facility] [id number] [address] [place] [address] Jun, [facility] [address] [facility] [id number] [address] [place] [address] Jun, [facility] [address] [facility] [id number] [address] [place] [address] May, [facility] [address] [facility] [id number] [address] [place] [address] Sep, IMMUNIZATIONS No Known Immunizations SOCIAL HISTORY [...]
--- OUTSIDE RECORDS SUMMARY | 2020-01-28 14:25 | XMS REPORT ---
Author Author Katarina RODRIGUEZ Organization [facility] Address [address] [place] [address] Care Team Providers Care Head Of English Name Role Phone GEORGINA RODRIGUEZ Unavailable PROBLEMS Type Condition ICD9-CM Code ZKI96-AO Code Onset Dates Condition S tatus SNOMED Code Problem Osteoarthritis M19.90 Active 83990 5006 Problem Chronic obstructive pulmonary disease, unspecified COPD ty pe J44.9 Active 51613709 Problem Acquired hypothyroidism E03.9 Active 378637186 Problem Cigarette nicotine dependence without complication F17.210 Active 52556160 Problem Diabetes E11.9 Active 696052692 Problem High risk medication use Z79.899 Activ e 176369957 Problem Urinary incontinence, unspecified type R32 Active 784334495 Problem halfway (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.01 Active 627764363 Problem Morbid obesity, unspecified obesity type E66.01 Active 234402911 Problem Other chronic pain G89.29 Active 8 6360244 Problem History of cataract surgery Z98.49 Ac tive 180132996 Problem Type 2 diabetes mellitus wit h hyperglycemia, without long-term current use of insulin E11.65 Active 35286314 Problem Encounter for immunization Z23 Act essie 848575035 Problem Irregular heart beats I49.9 Active 222958361 Problem Other urinary incontinence N39.498 Act essie 961939201 Problem Essential hypertension I10 Active 87067862 Problem Chronic atrial fibrillation I48.2 Ac tive [id number] ALLERGIES No Information ENCOUNTERS Encounter Location Date Diagnosis [facility] [address] [facility] [id number] [address] [place] [phone] Oct, [facility] [address] [facility] [id number] [address] [place] [phone] Oct, halfway (current) use of a nticoagulants Z79.01 [facility] [address] [id number] [address] [place] [phone] Oct, 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.01 [facility] [address] [id number] [address] [place] [phone] Sep, [facility] [address] [id number] [address] [place] [phone] Aug, Osteoarthritis M19.90 [facility] [address] [id number] [address] [place] [phone] Aug, Diabetes E11.9 ; halfway ( 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.01 ; Tobacco abuse Z72.0 ; Low back pain M54.5 and Chronic atrial fibrillation I48.2 [place] [address] [id number] [address] [place] [phone] Aug, Diabetes E11.9 [facility] [address] [facility] [id number] [address] [place] [phone] Aug, [facility] [address] [id number] [address] [place] [phone] 08 Aug, 2019 Acute non-recurrent pansinus itis J01.40 and Non- recurrent acute suppurative otitis media of left ear without spontaneous rupture of tympanic membrane H66.002 [place] [address] [id number] [address] [place] [phone] Aug, [facility] [address] [id number] [address] [place] [phone] Aug, 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.01 [facility] [address] [id number] [address] [place] [id number] Aug, 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.01 [facility] [address] [id number] [address] [place] [phone] Jul, Osteoarthritis M19.90 [facility] [address] [facility] [id number] [address] [place] [phone] Jul, Osteoarthritis M19.90 [facility] [address] [id number] [address] [place] [phone] Jun, [facility] [address] [id number] [address] [place] [phone] Jun, Chronic atrial fibrillation I48.2 [facility] [address] [facility] [id number] [address] [place] [phone] Jun, Osteoarthritis M19.90 [facility] [address] [id number] [address] [place] [phone] Jun, Chronic atrial fibrillation I48.2 [facility] [address] [id number] [address] [place] [phone] May, Osteoarthritis M19.90 [facility] [address] [facility] [id number] [address] [place] [phone] May, Chronic atrial fibrillation I48.2 [facility] [address] [id number] [address] [place] [phone] Apr, Osteoarthritis M19.90 [facility] [address] [facility] [id number] [address] [place] [phone] Mar, Chronic atrial fibrillation I48.2 [facility] [address] [facility] [id number] [address] [place] [phone] Mar, Chronic atrial fibrillation I48.2 [facility] [address] [facility] [id number] [address] [place] [phone] Mar, Osteoarthritis M19.90 [facility] [address] [facility] [id number] [address] [place] [phone] Mar, Chronic atrial fibrillation I48.2 [facility] [address] [facility] [id number] [address] [place] [phone] Mar, Type 2 diabetes mellitus wit h hyperglycemia, without long-term current use of insulin E11.65 ; Chronic atrial fibrillation I48.2 and Morbid obesity E66.01 [facility] [address] [id number] [address] [place] [phone] Feb, Osteoarthritis M19.90 [facility] [address] [id number] [address] [place] [phone] Feb, Chronic atrial fibrillation I48.2 [facility] [address] [id number] [address] [place] [phone] Feb, Hyperglycemia R73.9 ; Diabet es E11.9 ; Morbid obesity E66.01 ; Acquired hypothyroidism E03.9 ; Osteoarthritis M19.90 and High risk medication use Z79.899 [facility] [address] [id number] [address] [place] [phone] Feb, Chronic atrial fibrillation I48.2 [facility] [address] [id number] [address] [place] [phone] Jan, Osteoarthritis M19.90 [facility] [address] [id number] [address] [place] [phone] Jan, Chronic atrial fibrillation I48.2 [facility] [address] [id number] [address] [place] [phone] Jan, Chronic atrial fibrillation I48.2 [facility] [address] [id number] [address] [place] [phone] Jan, Chronic atrial fibrillation I48.2 [facility] [address] [facility] [id number] [address] [place] [phone] Jan, halfway (current) use of a nticoagulants Z79.01 [facility] [address] [id number] [address] [place] [phone] December, [facility] [address] [id number] [address] [place] [phone] December, [facility] [address] [facility] [id number] [address] [place] [phone] December, Osteoarthritis M19.90 [facility] [address] [id number] [address] [place] [phone] Nov, [facility] [address] [id number] [address] [place] [phone] Nov, Osteoarthritis M19.90 [facility] [address] [id number] [address] [place] [phone] Oct, Osteoarthritis M19.90 [facility] [address] [facility] [id number] [address] [place] [address] Sep, Osteoarthritis M19.90 [facility] [address] [facility] [id number] [address] [place] [phone] Sep, halfway (current) use of a nticoagulants Z79.01 ; BMI 45.0-49.9, adult Z68.42 ; Diabetes E11.9 ; Chronic atrial fibrillation I48.2 and Chronic obstructive pulmonary disease, unspecified COPD type J44.9 [facility] [address] [facility] [id number] [address] [place] [phone] Sep, Diabetes E11.9 ; halfway ( 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.01 ; Chronic atrial fibrillation I48.2 ; Chronic obstructive pulmonary disease, unspecified COPD type J44.9 and BMI 45.0-49.9, adult Z68.42 [facility] [address] [facility] [id number] [address] [place] [phone] Aug, Osteoarthritis M19.90 [facility] [address] [facility] [id number] [address] [place] [phone] Aug, [facility] [address] [facility] [id number] [address] [place] [phone] Aug, halfway (current) use of a nticoagulants Z79.01 ; BMI 45.0-49.9, adult Z68.42 ; Diabetes E11.9 and Chronic atrial fibrillation I48.2 [facility] [address] [facility] [id number] [address] [place] [phone] Aug, [facility] [address] [id number] [address] [place] [phone] Jul, Osteoarthritis M19.90 [facility] [address] [id number] [address] [place] [phone] Jun, Osteoarthritis M19.90 [facility] [address] [facility] [id number] [address] [place] [phone] Jun, halfway (current) use of a nticoagulants Z79.01 [facility] [address] [facility] [id number] [address] [place] [phone] Jun, Chronic atrial fibrillation I48.2 and 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.01 [place] [address] [facility] [id number] [address] [place] [phone] Jun, Osteoarthritis M19.90 [place] [address] [place] [id number] [place] [phone] May, Encounter for immunization Z 23 [facility] [address] [facility] [id number] [address] [place] [phone] May, 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.01 [facility] [address] [facility] [id number] [address] [place] [phone] May, Osteoarthritis M19.90 [place] [address] [place] [id number] [address] [place] [phone] May, [facility] [address] [facility] [id number] [address] [place] [phone] May, Diabetes E11.9 ; halfway ( 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.01 ; Chronic atrial fibrillation I48.2 ; BMI 45.0-49.9, adult Z68.42 ; Osteoarthritis M19.90 ; Low back pain M54.5 and Other chronic pain G89.29 [facility] [address] [facility] [id number] [address] [place] [phone] Apr, Chronic atrial fibrillation I48.2 [place] [address] [facility] [id number] [address] [place] [phone] 13 Apr, 2018 halfway (current) use of a nticoagulants Z79.01 [facility] [address] [id number] [address] [place] [phone] 07 Apr, 2018 Osteoarthritis M19.90 [facility] [address] [id number] [address] [place] [phone] 04 Apr, 2018 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.01 and Chronic atrial fibrillation I48.2 [facility] [address] [id number] [address] [place] [phone] Mar, Osteoarthritis M19.90 [facility] [address] [id number] [address] [place] [phone] Feb, Osteoarthritis M19.90 [facility] [address] [facility] [id number] [address] [place] [phone] Jan, Osteoarthritis M19.90 [facility] [address] [id number] [address] [place] [phone] December, [facility] [address] [id number] [address] [place] [phone] December, Osteoarthritis M19.90 [facility] [address] [facility] [id number] [address] [place] [phone] Nov, Diabetes E11.9 ; halfway ( 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.01 ; Acquired hypothyroidism E03.9 ; Cigarette nicotine dependence without complication F17.210 ; Osteoarthritis M19.90 ; BMI 45.0-49.9, adult Z68.42 and Chronic atrial fibrillation I48.2 [facility] [address] [id number] [address] [place] [phone] Nov, Osteoarthritis M19.90 [facility] [address] [id number] [address] [place] [phone] Oct, Osteoarthritis M19.90 [facility] [address] [facility] [id number] [address] [place] [phone] Oct, 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.01 [facility] [address] [facility] [id number] [address] [place] [phone] Sep, Osteoarthritis M19.90 [facility] [address] [facility] [id number] [address] [place] [phone] Sep, [facility] [address] [place] [id number] [address] [place] [id number] Aug, Osteoarthritis M19.90 [facility] [address] [facility] [id number] [address] [place] [phone] Jul, Osteoarthritis M19.90 [facility] [address] [phone] Jul, Osteoarthritis M19.90 [facility] [address] [phone] Jun, Diabetes E11.9 ; Encounter f or immunization Z23 ; 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.01 ; Chronic atrial fibrillation I48.2 ; Osteoarthritis M19.90 ; Tobacco abuse Z72.0 and Bug bite, initial encounter W57.XXXA [facility] [address] [address] May, Osteoarthritis M19.90 [facility] [address] [address] Apr, Osteoarthritis M19.90 [facility] [address] [place] [id number] [address] [place] [phone] Mar, Chronic atrial fibrillation I48.2 [facility] [address] [place] [id number] [place] [phone] Mar, [facility] [address] [place] [id number] [address] [place] [phone] Mar, Osteoarthritis M19.90 [facility] [address] [place] [id number] [address] [place] [phone] Mar, halfway (current) use of a nticoagulants Z79.01 and Chronic atrial fibrillation I48.2 [facility] [address] [id number] [address] [place] [phone] Mar, Chronic atrial fibrillation I48.2 and 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.01 [facility] [address] [id number] [address] [place] [phone] Mar, 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.01 [place] [address] [id number] [address] [place] [phone] Mar, 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.01 [place] [address] [id number] [address] [place] [address] Mar, Osteoarthritis M19.90 [place] [address] [id number] [address] [place] [phone] Feb, Encounter for screening mamm ogram for malignant neoplasm of breast Z12.31 [place] [address] [id number] [address] [place] [phone] Feb, Osteoarthritis M19.90 [place] [address] [id number] [address] [place] [phone] Jan, [place] [address] [id number] [address] [place] [phone] Jan, halfway (current) use of a nticoagulants Z79.01 ; Diabetes E11.9 ; Osteoarthritis M19.90 and Breast cancer screening Z12.39 [place] [address] [id number] [address] [place] [address] Jan, Osteoarthritis M19.90 [place] [address] [id number] [address] [place] [phone] Jan, Osteoarthritis M19.90 [facility] [address] [facility] [id number] [address] [place] [phone] Jan, [facility] [address] [facility] [id number] [address] [place] [phone] December, Osteoarthritis M19.90 [facility] [address] [facility] [id number] [address] [place] [phone] December, Osteoarthritis M19.90 [facility] [address] [id number] [id number] Nov, [facility] [address] [facility] [id number] [address] [place] [phone] Nov, [facility] [address] [facility] [id number] [address] [place] [phone] Nov, [facility] [address] [facility] [id number] [address] [place] [phone] Nov, Diabetes E11.9 [place] [address] [facility] [id number] [address] [place] [phone] Nov, [facility] [address] [facility] [id number] [address] [place] [phone] Oct, Osteoarthritis M19.90 [facility] [address] [facility] [id number] [address] [place] [phone] Oct, Osteoarthritis M19.90 ; 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.01 ; Diabetes E11.9 ; Cigarette nicotine dependence without complication F17.210 and Chronic atrial fibrillation I48.2 [place] [address] [facility] [id number] [address] [place] [phone] Aug, [facility] [address] [facility] [id number] [address] [place] [phone] Aug, halfway (current) use of a nticoagulants Z79.01 [facility] [address] [facility] [id number] [address] [place] [phone] Aug, [facility] [address] [id number] [id number] Aug, [place] [address] [place] [id number] [address] [place] [phone] Aug, [facility] [address] [phone] Aug, [facility] [id number] [place] [id number] Aug, [facility] [address] [id number] Aug Osteoarthritis M19.90 and Essential hypertension I10 [facility] [address] [address] Aug, Other urinary incontinence N 39.498 [place] [address] [address] Jul, Osteoarthritis M19.90 [place] [address] [address] Jun, Diabetes E11.9 ; Encounter f or immunization Z23 ; Osteoarthritis M19.90 ; halfway (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.01 ; Cigarette nicotine dependence without complication F17.210 ; Acquired hypothyroidism E03.9 ; Morbid obesity, unspecified obesity type E66.01 and Irregular heart beats I49.9 [facility] [id number] [place] [address] Jun, Osteoarthritis M19.90 [place] [address] [address] May, Osteoarthritis M19.90 [facility] [address] [address] May, Urinary incontinence, unspec ified type R32 [place] [address] [phone] May, [facility] [address] [place] [id number] [address] [place] [address] Apr, Osteoarthritis M19.90 [facility] [address] [address] Apr, 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.01 [facility] [address] [facility] [id number] [address] [place] [phone] Apr, [facility] [address] [facility] [id number] [address] [place] [phone] Apr, Osteoarthritis M19.90 [facility] [address] [facility] [id number] [address] [place] [address] Mar, Diabetes E11.9 ; Hypothyroid ism, unspecified type E03.9 ; Osteoarthritis M19.90 ; High risk medication use Z79.899 ; Cigarette nicotine dependence without complication F17.210 and Morbid obesity, unspecified obesity type E66.01 [place] [address] [facility] [id number] [address] [place] [phone] Mar, Osteoarthritis M19.90 [place] [address] [facility] [id number] [address] [place] [address] December, Osteoarthritis M19.90 [place] [address] [facility] [id number] [address] [place] [phone] December, [place] [address] [facility] [id number] [address] [place] [phone] Oct, [place] [address] [facility] [id number] [address] [place] [phone] Oct, [place] [address] [facility] [id number] [address] [place] [phone] Aug, [facility] [address] [facility] [id number] [address] [place] [phone] Jul, [place] [address] [address] [facility] [id number] [place] [phone] Jul, [place] [address] [address] [facility] [id number] [place] [phone] Jul, Diabetes E11.9 ; Encounter f or immunization Z23 ; Abnormal mammogram R92.8 ; Acquired hypothyroidism E03.9 ; High risk medication use Z79.899 ; Osteoarthritis M19.90 and Cigarette nicotine dependence without complication F17.210 [facility] [address] [id number] [place] [phone] Jul, [facility] [address] [facility] [id number] [address] [place] [phone] Jun, Abnormal mammogram R92.8 [facility] [address] [id number] [address] [place] [phone] Apr, [facility] [address] [id number] [address] [place] [phone] Apr, [facility] [address] [id number] [address] [place] [phone] Mar, [facility] [address] [id number] [address] [place] [phone] Mar, Current use of intermission coordinator ant 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 V58.61 [facility] [address] [id number] [place], [place] [id number] Feb, [facility] [address] [id number] [address] [place] [id number] Jan, [facility] [address] [facility] [id number] [address] [place] [id number] December, [facility] [address] [id number] [address] [place] [phone] Nov, [facility] [address] [id number] [address] [place] [phone] Nov, [facility] [address] [id number] [address] [place] [phone] Oct, [facility] [address] [id number] [address] [place] [phone] Oct, [facility] [address] [id number] [address] [place] [id number] 17 Oct, 2014 [facility] [address] [id number] [address] [place] [address], [place] [address] 17 Oct, 2014 [facility] [address] [id number] [address] [place] [address], [place] [address] Oct, [facility] [address] [id number] [address] [place] [address], [place] [address] Oct, [facility] [address] [id number] [address] [place] [address], [place] [address] Sep, [facility] [address] [id number] [address] [place] [address], [place] [address] Sep, [facility] [address] [id number] [address] [place] [address], [place] [address] Sep, [facility] [address] [id number] [address] [place] [address], [place] [address] Sep, [facility] [address] [id number] [address] [place] [address], [place] [address] Aug, [facility] [address] [id number] [address] [place] [address], [place] [address] Aug, [facility] [address] [id number] [address] [place] [address], [place] [address] Aug, [facility] [address] [id number] [address] [place] [address], [place] [address] Aug, [facility] [address] [id number] [address] [place] [address], [place] [address] Aug, [facility] [address] [id number] [address] [place] [address], [place] [address] Aug, [facility] [address] [id number] [address] [place] [address], [place] [address] Jul, [facility] [address] [id number] [address] [place] [address], [place] [address] Jul, [facility] [address] [id number] [address] [place] [address], [place] [address] Jul, [facility] [address] [id number] [address] [place] [address], [place] [address] Jul, [facility] [address] [id number] [address] [place] [address], [place] [address] Jul, [facility] [address] [id number] [address] [place] [address], [place] [address] Jul, [facility] [address] [id number] [address] [place] [address], [place] [address] Jun, [facility] [address] [id number] [address] [place] [address], [place] [address] Jun, [facility] [address] [id number] [address] [place] [address], [place] [address] Jun, [facility] [address] [id number] [address] [place] [address], [place] [address] Jun, [facility] [address] [id number] [address] [place] [address], [place] [address] Jun, [facility] [address] [id number] [address] [place] [address], [place] [address] Jun, [facility] [address] [id number] [address] [place] [address], [place] [address] Jun, [facility] [address] [id number] [address] [place] [address], [place] [address] Jun, [facility] [address] [id number] [address] [place] [address], [place] [address] Jun, [facility] [address] [id number] [address] [place] [address], [place] [address] May, [facility] [address] [id number] [address] [place] [address], [place] [address] May, [facility] [address] [id number] [address] [place] [address], [place] [address] Apr, [facility] [address] [id number] [address] [place] [address], [place] [address] Apr, 2013 [facility] [address] [id number] [address] [place] [address], [place] [address] Apr, 2013 [facility] [address] [id number] [address] [place] [address], [place] [address] Apr, 2013 [facility] [address] [id number] [address] [place] [address], [place] [address] Apr, 2013 [facility] [address] [id number] [address] [place] [address], [place] [address] Apr, 2013 [facility] [address] [id number] [address] [place] [address], [place] [address] Apr, 2013 [facility] [address] [id number] [address] [place] [address], [place] [address] Apr, 2013 [facility] [address] [id number] [address] [place] [address], [place] [address] Apr, [facility] [address] [id number] [address] [place] [address], [place] [address] Apr, [facility] [address] [id number] [address] [place] [address], [place] [address] Mar, [facility] [address] [id number] [address] [place] [address], [place] [address] Mar, [facility] [address] [id number] [address] [place] [address], [place] [address] Mar, [facility] [address] [id number] [address] [place] [address], [place] [address] Mar, [facility] [address] [id number] [address] [place] [address], [place] [address] Mar, [facility] [address] [id number] [address] [place] [address], [place] [address] Mar, [facility] [address] [id number] [address] [place] [address], [place] [address] Feb, [facility] [address] [id number] [address] [place] [address], [place] [address] Feb, [facility] [address] [id number] [address] [place] [address], [place] [address] Feb, [facility] [address] [id number] [address] [place] [address], [place] [address] Feb, [facility] [address] [id number] [address] [place] [address], [place] [address] Jan, [facility] [address] [id number] [address] [place] [address], [place] [address] Jan, [facility] [address] [id number] [address] [place] [address], [place] [address] Jan, [facility] [address] [id number] [address] [place] [address], [place] [address] Jan, [facility] [address] [id number] [address] [place] [address], [place] [address] Oct, [facility] [address] [id number] [address] [place] [address], [place] [address] Oct, [facility] [address] [id number] [address] [place] [address], [place] [address] Sep, [facility] [address] [id number] [address] [place] [address], [place] [address] Sep, [facility] [address] [id number] [address] [place] [address], [place] [address] Sep, [facility] [address] [id number] [address] [place] [address], [place] [address] Sep, [facility] [address] [id number] [address] [place] [address], [place] [address] Aug, [facility] [address] [id number] [address] [place] [address], [place] [address] Aug, [facility] [address] [id number] [address] [place] [address], [place] [address] Aug, [facility] [address] [id number] [address] [place] [address], [place] [address] Aug, [facility] [address] [id number] [address] [place] [address], [place] [address] 30 Jul, 2013 [facility] [address] [id number] [address] [place] [address], [place] [address] 30 Jul, 2013 [facility] [address] [id number] [address] [place] [address], [place] [address] Jul, [facility] [address] [id number] [address] [place] [address], [place] [address] Jul, [facility] [address] [id number] [address] [place] [address], [place] [address] Jul, [facility] [address] [id number] [address] [place] [address], [place] [address] Jul, [facility] [address] [id number] [address] [place] [address], [place] [address] Jun, [facility] [address] [id number] [address] [place] [address], [place] [address] Jun, [facility] [address] [id number] [address] [place] [address], [place] [address] Jun, [facility] [address] [id number] [address] [place] [address], [place] [address] Jun, [facility] [address] [id number] [address] [place] [address], [place] [address] Jun, [facility] [address] [id number] [address] [place] [address], [place] [address] Jun, [facility] [address] [id number] [address] [place] [address], [place] [address] May, [facility] [address] [id number] [address] [place] [address], [place] [address] May, [facility] [address] [id number] [address] [place] [address], [place] [address] May, [facility] [address] [id number] [address] [place] [address], [place] [address] May, [facility] [address] [id number] [address] [place] [address], [place] [address] May, [facility] [address] [id number] [address] [place] [address], [place] [address] May, [facility] [address] [id number] [address] [place] [address], [place] [address] May, [facility] [address] [id number] [address] [place] [address], [place] [address] May, [facility] [address] [id number] [address] [place] [address], [place] [address] Apr, [facility] [address] [id number] [address] [place] [address], [place] [address] Apr, [facility] [address] [id number] [address] [place] [address], [place] [address] Mar, [facility] [address] [id number] [address] [place] [address], [place] [address] Mar, [facility] [address] [id number] [address] [place] [address], [place] [address] Mar, [facility] [address] [id number] [address] [place] [address], [place] [address] Mar, [facility] [address] [id number] [address] [place] [address], [place] [address] Feb, [facility] [address] [id number] [address] [place] [address], [place] [address] Jan, [facility] [address] [id number] [address] [place] [address], [place] [address] December, [facility] [address] [id number] [address] [place] [address], [place] [address] December, [facility] [address] [id number] [address] [place] [address], [place] [address] December, [facility] [address] [id number] [address] [place] [address], [place] [address] Nov, [facility] [address] [id number] [address] [place] [address], [place] [address] Nov, [facility] [address] [id number] [address] [place] [address], [place] [address] Sep, [facility] [address] [id number] [address] [place] [address], [place] [address] Sep, [facility] [address] [id number] [address] [place] [address], [place] [address] Sep, [facility] [address] [id number] [address] [place] [address], [place] [address] Sep, [facility] [address] [id number] [address] [place] [address], [place] [address] Aug, [facility] [address] [id number] [address] [place] [address], [place] [address] Aug, [facility] [address] [id number] [address] [place] [address], [place] [address] Aug, [facility] [address] [id number] [address] [place] [address], [place] [address] Aug, [facility] [address] [id number] [address] [place] [address], [place] [address] Jul, [facility] [address] [id number] [address] [place] [address], [place] [address] Jul, [facility] [address] [id number] [address] [place] [address], [place] [address] Jul, [facility] [address] [id number] [address] [place] [address], [place] [address] Jul, [facility] [address] [id number] [address] [place] [address], [place] [address] Jun, [facility] [address] [id number] [address] [place] [address], [place] [address] Jun, [facility] [address] [id number] [address] [place] [address], [place] [address] Jun, [facility] [address] [id number] [address] [place] [address], [place] [address] Jun, [facility] [address] [id number] [address] [place] [address], [place] [address] May, [facility] [address] [id number] [address] [place] [address], [place] [address] May, [facility] [address] [id number] [address] [place] [address], [place] [address] May, [facility] [address] [id number] [address] [place] [address], [place] [address] May, [facility] [address] [id number] [address] [place] [address], [place] [address] May, [facility] [address] [id number] [address] [place] [address], [place] [address] 10 Apr, 2012 [facility] [address] [id number] [address] [place] [address], [place] [address] 08 Apr, 2012 [facility] [address] [id number] [address] [place] [address] 07 Apr, 2012 [facility] [address] [id number] [address] [place] [address], [place] [address] 06 Apr, 2012 [facility] [address] [id number] [address] [place] [address], [place] [address] Mar, [facility] [address] [id number] [address] [place] [address], [place] [address] Mar, [facility] [address] [id number] [address] [place] [address], [place] [address] Feb, [facility] [address] [id number] [address] [place] [address], [place] [address] Feb, [facility] [address] [id number] [address] [place] [address], [place] [address] Feb, [facility] [address] [id number] [address] [place] [address], [place] [address] Jan, [facility] [address] [id number] [address] [place] [address], [place] [address] Jan, [facility] [address] [id number] [address] [place] [address], [place] [address] December, [facility] [address] [id number] [address] [place] [address], [place] [address] December, [facility] [address] [id number] [address] [place] [address], [place] [address] Nov, [facility] [address] [id number] [address] [place] [address], [place] [address] Oct, [facility] [address] [id number] [address] [place] [address], [place] [address] Oct, [facility] [address] [id number] [address] [place] [address], [place] [address] Sep, [facility] [address] [id number] [address] [place] [address], [place] [address] Sep, [facility] [address] [id number] [address] [place] [address], [place] [address] Aug, [facility] [address] [id number] [address] [place] [address], [place] [address] Aug, [facility] [address] [id number] [address] [place] [address], [place] [address] Jul, [facility] [address] [id number] [address] [place] [address], [place] [address] Jul, [facility] [address] [id number] [address] [place] [address], [place] [address] 09 Jul, 2011 [facility] [address] [id number] [address] [place] [address], [place] [id number] 07 Jun, 2011 [facility] [address] [id number] [address] [place] [address], [place] [id number] 07 Jun, 2011 [facility] [address] [id number] [address] [place] [address], [place] [id number] 13 May, 2011 [facility] [address] [id number] [address] [place] [address], [place] [address] May, [facility] [address] [id number] [address] [place] [address], [place] [address] May, [facility] [address] [id number] [address] [place] [address], [place] [id number] Jul, [facility] [address] [id number] [address] [place] [address], [place] [id number] Jul, [facility] [address] [id number] [address] [place] [address], [place] [id number] 15 Jun, 2010 [facility] [address] [id number] [address] [place] [address], [place] [address] May, [facility] [address] [id number] [address] [place] [address], [place] [address] May, [facility] [address] [id number] [address] [place] [address], [place] [address] 14 Aug, 2009 [facility] [address] [id number] [address] [place] [address], [place] [address] 17 Jul, 2009 [facility] [address] [id number] [address] [place] [address], [place] [address] Jun, [facility] [address] [id number] [address] [place] [address], [place] [id number] 10 Jun, 2009 [facility] [address] [id number] [address] [place] [id number] Jun, [facility] [address] [facility] [id number] [address] [place] [id number] Jun, [facility] [address] [facility] [id number] [address] [place] [id number] Jun, [facility] [address] [facility] [id number] [address] [place] [id number] May, [facility] [address] [facility] [id number] [address] [place] [id number] Sep, IMMUNIZATIONS No Known Immunizations SOCIAL HISTORY [...]
--- OUTSIDE RECORDS SUMMARY | 2020-01-28 14:25 | XMS REPORT ---
Author Author Katarina RODRIGUEZ Organization [facility] Address [address] [place] [address] Care Team Providers Care Car Shunter Name Role Phone GEORGINA RODRIGUEZ Unavailable PROBLEMS Type Condition ICD9-CM Code VPA33-HV Code Onset Dates Condition S tatus SNOMED Code Problem Osteoarthritis M19.90 Active 55240 5006 Problem Chronic obstructive pulmonary disease, unspecified COPD ty pe J44.9 Active 94348888 Problem Acquired hypothyroidism E03.9 Active 019170264 Problem Cigarette nicotine dependence without complication F17.210 Active 55479777 Problem Diabetes E11.9 Active 551590408 Problem High risk medication use Z79.899 Activ e 765396153 Problem Urinary incontinence, unspecified type R32 Active 462916712 Problem penitentiary (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.01 Active 238404741 Problem Morbid obesity, unspecified obesity type E66.01 Active 815081117 Problem Other chronic pain G89.29 Active 8 6573137 Problem History of cataract surgery Z98.49 Ac tive 116710473 Problem Type 2 diabetes mellitus wit h hyperglycemia, without long-term current use of insulin E11.65 Active 02456453 Problem Encounter for immunization Z23 Act essie 844100058 Problem Irregular heart beats I49.9 Active 614724978 Problem Other urinary incontinence N39.498 Act essie 652976819 Problem Essential hypertension I10 Active 07402124 Problem Chronic atrial fibrillation I48.2 Ac tive [id number] ALLERGIES No Information ENCOUNTERS Encounter Location Date Diagnosis [facility] [address] [id number] [address] [place] [address] Oct, [facility] [address] [id number] [address] [place] [address] Oct, penitentiary (current) use of a nticoagulants Z79.01 [facility] [address] [id number] [address] [place] [address] Oct, 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 [facility] [address] [id number] [address] [place] [address] Sep, [facility] [address] [id number] [address] [place] [address] Aug, Osteoarthritis M19.90 [facility] [address] [id number] [address] [place] [address] Aug, Diabetes E11.9 ; penitentiary ( 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.01 ; Tobacco abuse Z72.0 ; Low back pain M54.5 and Chronic atrial fibrillation I48.2 [place] [address] [id number] [address] [place] [address] Aug, Diabetes E11.9 [facility] [address] [id number] [address] [place] [address] Aug, [facility] [address] [id number] [address] [place] [id number] Aug, 2019 Acute non-recurrent pansinus itis J01.40 and Non- recurrent acute suppurative otitis media of left ear without spontaneous rupture of tympanic membrane H66.002 [place] [address] [id number] [address] [place] [address] Aug, [facility] [address] [id number] [address] [place] [address] Aug, 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 [facility] [address] [id number] [address] [place] [address] Aug, 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 [facility] [address] [id number] [address] [place] [address] Jul, Osteoarthritis M19.90 [facility] [address] [id number] [address] [place] [address] Jul, Osteoarthritis M19.90 [facility] [address] [id number] [address] [place] [address] Jun, [facility] [address] [id number] [address] [place] [address] Jun, Chronic atrial fibrillation I48.2 [facility] [address] [id number] [address] [place] [address] Jun, Osteoarthritis M19.90 [facility] [address] [id number] [address] [place] [address] Jun, Chronic atrial fibrillation I48.2 [facility] [address] [id number] [address] [place] [address] May, Osteoarthritis M19.90 [facility] [address] [id number] [address] [place] [address] May, Chronic atrial fibrillation I48.2 [facility] [address] [id number] [address] [place] [address] Apr, Osteoarthritis M19.90 [facility] [address] [id number] [address] [place] [address] Mar, Chronic atrial fibrillation I48.2 [facility] [address] [id number] [address] [place] [address] Mar, Chronic atrial fibrillation I48.2 [facility] [address] [id number] [address] [place] [address] Mar, Osteoarthritis M19.90 [facility] [address] [id number] [address] [place] [address] Mar, Chronic atrial fibrillation I48.2 [facility] [address] [id number] [address] [place] [address] Mar, Type 2 diabetes mellitus wit h hyperglycemia, without long-term current use of insulin E11.65 ; Chronic atrial fibrillation I48.2 and Morbid obesity E66.01 [facility] [address] [id number] [address] [place] [address] Feb, Osteoarthritis M19.90 [facility] [address] [id number] [address] [place] [address] Feb, Chronic atrial fibrillation I48.2 [facility] [address] [id number] [address] [place] [address] Feb, Hyperglycemia R73.9 ; Diabet es E11.9 ; Morbid obesity E66.01 ; Acquired hypothyroidism E03.9 ; Osteoarthritis M19.90 and High risk medication use Z79.899 [facility] [address] [id number] [address] [place] [address] Feb, Chronic atrial fibrillation I48.2 [facility] [address] [id number] [address] [place] [address] Jan, Osteoarthritis M19.90 [facility] [address] [id number] [address] [place] [address] Jan, Chronic atrial fibrillation I48.2 [facility] [address] [id number] [address] [place] [address] Jan, Chronic atrial fibrillation I48.2 [facility] [address] [id number] [address] [place] [address] Jan, Chronic atrial fibrillation I48.2 [facility] [address] [id number] [address] [place] [address] Jan, penitentiary (current) use of a nticoagulants Z79.01 [facility] [address] [id number] [address] [place] [address] December, [facility] [address] [id number] [address] [place] [address] December, [facility] [address] [id number] [address] [place] [address] December, Osteoarthritis M19.90 [facility] [address] [id number] [address] [place] [address] Nov, [facility] [address] [id number] [address] [place] [address] Nov, Osteoarthritis M19.90 [facility] [address] [id number] [address] [place] [address] Oct, Osteoarthritis M19.90 [facility] [address] [id number] [address] [place] [address] Sep, Osteoarthritis M19.90 [facility] [address] [id number] [address] [place] [address] Sep, penitentiary (current) use of a nticoagulants Z79.01 ; BMI 45.0-49.9, adult Z68.42 ; Diabetes E11.9 ; Chronic atrial fibrillation I48.2 and Chronic obstructive pulmonary disease, unspecified COPD type J44.9 [facility] [address] [id number] [address] [place] [address] Sep, Diabetes E11.9 ; penitentiary ( 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.01 ; Chronic atrial fibrillation I48.2 ; Chronic obstructive pulmonary disease, unspecified COPD type J44.9 and BMI 45.0-49.9, adult Z68.42 [facility] [address] [id number] [address] [place] [address] Aug, Osteoarthritis M19.90 [facility] [address] [id number] [address] [place] [address] Aug, [facility] [address] [id number] [address] [place] [address] Aug, penitentiary (current) use of a nticoagulants Z79.01 ; BMI 45.0-49.9, adult Z68.42 ; Diabetes E11.9 and Chronic atrial fibrillation I48.2 [facility] [address] [id number] [address] [place] [address] Aug, [facility] [address] [id number] [address] [place] [address] Jul, Osteoarthritis M19.90 [facility] [address] [id number] [address] [place] [address] Jun, Osteoarthritis M19.90 [facility] [address] [id number] [address] [place] [address] Jun, penitentiary (current) use of a nticoagulants Z79.01 [facility] [address] [id number] [address] [place] [address] Jun, Chronic atrial fibrillation I48.2 and 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 [place] [address] [id number] [address] [place] [address] Jun, Osteoarthritis M19.90 [place] [address] [place] [id number] [place] [address] May, Encounter for immunization Z 23 [facility] [address] [id number] [address] [place] [address] May, 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 [facility] [address] [id number] [address] [place] [address] May, Osteoarthritis M19.90 [place] [address] [place] [id number] [address] [place] [address] May, [facility] [address] [id number] [address] [place] [address] May, Diabetes E11.9 ; penitentiary ( 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.01 ; Chronic atrial fibrillation I48.2 ; BMI 45.0-49.9, adult Z68.42 ; Osteoarthritis M19.90 ; Low back pain M54.5 and Other chronic pain G89.29 [facility] [address] [id number] [address] [place] [address] Apr, Chronic atrial fibrillation I48.2 [place] [address] [id number] [address] [place] [address] 13 Apr, 2018 penitentiary (current) use of a nticoagulants Z79.01 [facility] [address] [id number] [address] [place] [address] 07 Apr, 2018 Osteoarthritis M19.90 [facility] [address] [id number] [address] [place] [address] 04 Apr, 2018 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 and Chronic atrial fibrillation I48.2 [facility] [address] [id number] [address] [place] [address] Mar, Osteoarthritis M19.90 [facility] [address] [id number] [address] [place] [address] Feb, Osteoarthritis M19.90 [facility] [address] [id number] [address] [place] [address] Jan, Osteoarthritis M19.90 [facility] [address] [id number] [address] [place] [address] December, [facility] [address] [id number] [address] [place] [address] December, Osteoarthritis M19.90 [facility] [address] [id number] [address] [place] [address] Nov, Diabetes E11.9 ; penitentiary ( 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.01 ; Acquired hypothyroidism E03.9 ; Cigarette nicotine dependence without complication F17.210 ; Osteoarthritis M19.90 ; BMI 45.0-49.9, adult Z68.42 and Chronic atrial fibrillation I48.2 [facility] [address] [id number] [address] [place] [address] Nov, Osteoarthritis M19.90 [facility] [address] [id number] [address] [place] [address] Oct, Osteoarthritis M19.90 [facility] [address] [id number] [address] [place] [address] Oct, 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 [facility] [address] [id number] [address] [place] [address] Sep, Osteoarthritis M19.90 [facility] [address] [id number] [address] [place] [address] Sep, [facility] [address] [place] [id number] [address] [place] [address] Aug, Osteoarthritis M19.90 [facility] [address] [id number] [address] [place] [address] Jul, Osteoarthritis M19.90 [facility] [address] [address] Jul, Osteoarthritis M19.90 [facility] [address] [address] Jun, Diabetes E11.9 ; Encounter f or immunization Z23 ; 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 ; Chronic atrial fibrillation I48.2 ; Osteoarthritis M19.90 ; Tobacco abuse Z72.0 and Bug bite, initial encounter W57.XXXA [facility] [address] [address] May, Osteoarthritis M19.90 [facility] [address] [address] Apr, Osteoarthritis M19.90 [facility] [address] [place] [id number] [address] [place] [address] Mar, Chronic atrial fibrillation I48.2 [facility] [id number] [place] [address] Mar, [facility] [address] [id number] [address] [place] [address] Mar, Osteoarthritis M19.90 [facility] [address] [id number] [address] [place] [address] Mar, penitentiary (current) use of a nticoagulants Z79.01 and Chronic atrial fibrillation I48.2 [facility] [address] [id number] [address] [place] [address] Mar, Chronic atrial fibrillation I48.2 and 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 [facility] [address] [id number] [address] [place] [address] Mar, 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 [place] [address] [id number] [address] [place] [address] Mar, 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 [place] [address] [id number] [address] [place] [address] Mar, Osteoarthritis M19.90 [place] [address] [id number] [address] [place] [address] Feb, Encounter for screening mamm ogram for malignant neoplasm of breast Z12.31 [place] [address] [id number] [address] [place] [address] Feb, Osteoarthritis M19.90 [place] [address] [id number] [address] [place] [address] Jan, [place] [address] [id number] [address] [place] [address] Jan, penitentiary (current) use of a nticoagulants Z79.01 ; Diabetes E11.9 ; Osteoarthritis M19.90 and Breast cancer screening Z12.39 [place] [address] [id number] [address] [place] [address] Jan, Osteoarthritis M19.90 [place] [address] [id number] [address] [place] [address] Jan, Osteoarthritis M19.90 [facility] [address] [id number] [address] [place] [address] Jan, [facility] [address] [id number] [address] [place] [address] December, Osteoarthritis M19.90 [facility] [address] [id number] [address] [place] [address] December, Osteoarthritis M19.90 [facility] [address] [id number] [id number] Nov, [facility] [address] [id number] [address] [place] [address] Nov, [facility] [address] [id number] [address] [place] [address] Nov, [facility] [address] [id number] [address] [place] [address] Nov, Diabetes E11.9 [place] [address] [id number] [address] [place] [address] Nov, [facility] [address] [id number] [address] [place] [address] Oct, Osteoarthritis M19.90 [facility] [address] [id number] [address] [place] [address] Oct, Osteoarthritis M19.90 ; 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 ; Diabetes E11.9 ; Cigarette nicotine dependence without complication F17.210 and Chronic atrial fibrillation I48.2 [place] [address] [id number] [address] [place] [address] Aug, [facility] [address] [id number] [address] [place] [address] Aug, penitentiary (current) use of a nticoagulants Z79.01 [facility] [address] [id number] [address] [place] [address] Aug, [facility] [address] [id number] [id number] Aug, [place] [address] [place] [id number] [address] [place] [address] Aug, [facility] [address] [address] Aug, [facility] [id number] [place] [id number] Aug, [facility] [address] [place] [id number] Aug Osteoarthritis M19.90 and Essential hypertension I10 [facility] [address] [address] Aug, Other urinary incontinence N 39.498 [place] [address] [address] Jul, Osteoarthritis M19.90 [place] [address] [address] Jun, Diabetes E11.9 ; Encounter f or immunization Z23 ; Osteoarthritis M19.90 ; penitentiary (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.01 ; Cigarette nicotine dependence without complication F17.210 ; Acquired hypothyroidism E03.9 ; Morbid obesity, unspecified obesity type E66.01 and Irregular heart beats I49.9 [facility] [id number] [place] [address] Jun, Osteoarthritis M19.90 [place] [address] [address] May, Osteoarthritis M19.90 [facility] [address] [address] May, Urinary incontinence, unspec ified type R32 [place] [address] [address] May, [facility] [address] [place] [id number] [address] [place] [address] Apr, Osteoarthritis M19.90 [facility] [address] [address] Apr, 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 [facility] [address] [id number] [address] [place] [address] Apr, [facility] [address] [id number] [address] [place] [address] Apr, Osteoarthritis M19.90 [facility] [address] [id number] [address] [place] [address] Mar, Diabetes E11.9 ; Hypothyroid ism, unspecified type E03.9 ; Osteoarthritis M19.90 ; High risk medication use Z79.899 ; Cigarette nicotine dependence without complication F17.210 and Morbid obesity, unspecified obesity type E66.01 [place] [address] [id number] [address] [place] [address] Mar, Osteoarthritis M19.90 [place] [address] [id number] [address] [place] [address] December, Osteoarthritis M19.90 [place] [address] [id number] [address] [place] [address] December, [place] [address] [id number] [address] [place] [address] Oct, [place] [address] [id number] [address] [place] [address] Oct, [place] [address] [id number] [address] [place] [address] Aug, [facility] [address] [id number] [address] [place] [address] Jul, [place] [address] [id number] [address] [place] [address] Jul, [place] [address] [id number] [address] [place] [address] Jul, Diabetes E11.9 ; Encounter f or immunization Z23 ; Abnormal mammogram R92.8 ; Acquired hypothyroidism E03.9 ; High risk medication use Z79.899 ; Osteoarthritis M19.90 and Cigarette nicotine dependence without complication F17.210 [facility] [address] [id number] [address] [place] [address] Jul, [facility] [address] [id number] [address] [place] [id number] Jun, Abnormal mammogram R92.8 [facility] [address] [id number] [address] [place] [id number] Apr, [facility] [address] [id number] [address] [place] [id number] Apr, [facility] [address] [id number] [address] [place] [id number] Mar, [facility] [address] [id number] [address] [place] [id number] Mar, 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 [facility] [address] [id number] [address] [place] [id number] Feb, [facility] [address] [id number] [address] [place] [id number] Jan, [facility] [address] [id number] [address] [place] [id number] December, [facility] [address] [id number] [address] [place] [id number] Nov, [facility] [address] [id number] [address] [place] [id number] Nov, [facility] [address] [id number] [address] [place] [id number] Oct, [facility] [address] [id number] [address] [place] [id number] Oct, [facility] [address] [id number] [address] [place] [id number] 17 Oct, 2014 [facility] [address] [id number] [address] [place] [address], [place] [id number] 17 Oct, 2014 [facility] [address] [id number] [address] [place] [address], [place] [id number] Oct, [facility] [address] [id number] [address] [place] [address], [place] [id number] Oct, [facility] [address] [id number] [address] [place] [address], [place] [id number] Sep, [facility] [address] [id number] [address] [place] [address], [place] [id number] Sep, [facility] [address] [id number] [address] [place] [address], [place] [address] Sep, [facility] [address] [id number] [address] [place] [address], [place] [address] Sep, [facility] [address] [id number] [address] [place] [address], [place] [address] Aug, [facility] [address] [id number] [address] [place] [address], [place] [address] Aug, [facility] [address] [id number] [address] [place] [address], [place] [address] Aug, [facility] [address] [id number] [address] [place] [address], [place] [address] Aug, [facility] [address] [id number] [address] [place] [address], [place] [address] Aug, [facility] [address] [id number] [address] [place] [address], [place] [address] Aug, [facility] [address] [id number] [address] [place] [address], [place] [address] Jul, [facility] [address] [id number] [address] [place] [address], [place] [address] Jul, [facility] [address] [id number] [address] [place] [address], [place] [address] Jul, [facility] [address] [id number] [address] [place] [address], [place] [address] Jul, [facility] [address] [id number] [address] [place] [address], [place] [address] Jul, [facility] [address] [id number] [address] [place] [address], [place] [address] Jul, [facility] [address] [id number] [address] [place] [address], [place] [address] Jun, [facility] [address] [id number] [address] [place] [address], [place] [address] Jun, [facility] [address] [id number] [address] [place] [address], [place] [address] Jun, [facility] [address] [id number] [address] [place] [address], [place] [address] Jun, [facility] [address] [id number] [address] [place] [address], [place] [address] Jun, [facility] [address] [id number] [address] [place] [address], [place] [address] Jun, [facility] [address] [id number] [address] [place] [address], [place] [address] Jun, [facility] [address] [id number] [address] [place] [address], [place] [address] Jun, [facility] [address] [id number] [address] [place] [address], [place] [address] Jun, [facility] [address] [id number] [address] [place] [address], [place] [address] May, [facility] [address] [id number] [address] [place] [address], [place] [address] May, [facility] [address] [id number] [address] [place] [address], [place] [address] Apr, [facility] [address] [id number] [address] [place] [address], [place] [address] Apr, 2013 [facility] [address] [id number] [address] [place] [address], [place] [address] Apr, 2013 [facility] [address] [id number] [address] [place] [address], [place] [address] Apr, 2013 [facility] [address] [id number] [address] [place] [address], [place] [address] Apr, 2013 [facility] [address] [id number] [address] [place] [address], [place] [address] Apr, 2013 [facility] [address] [id number] [address] [place] [address], [place] [address] Apr, 2013 [facility] [address] [id number] [address] [place] [address], [place] [address] Apr, 2013 [facility] [address] [id number] [address] [place] [address], [place] [address] Apr, [facility] [address] [id number] [address] [place] [address], [place] [address] Apr, [facility] [address] [id number] [address] [place] [address], [place] [address] Mar, [facility] [address] [id number] [address] [place] [address], [place] [address] Mar, [facility] [address] [id number] [address] [place] [address], [place] [address] Mar, [facility] [address] [id number] [address] [place] [address], [place] [address] Mar, [facility] [address] [id number] [address] [place] [address], [place] [address] Mar, [facility] [address] [id number] [address] [place] [address], [place] [address] Mar, [facility] [address] [id number] [address] [place] [address], [place] [address] Feb, [facility] [address] [id number] [address] [place] [address], [place] [address] Feb, [facility] [address] [id number] [address] [place] [address], [place] [address] Feb, [facility] [address] [id number] [address] [place] [address], [place] [address] Feb, [facility] [address] [id number] [address] [place] [address], [place] [address] Jan, [facility] [address] [id number] [address] [place] [address], [place] [address] Jan, [facility] [address] [id number] [address] [place] [address], [place] [address] Jan, [facility] [address] [id number] [address] [place] [address], [place] [address] Jan, [facility] [address] [id number] [address] [place] [address], [place] [address] Oct, [facility] [address] [id number] [address] [place] [address], [place] [address] Oct, [facility] [address] [id number] [address] [place] [address], [place] [address] Sep, [facility] [address] [id number] [address] [place] [address], [place] [address] Sep, [facility] [address] [id number] [address] [place] [address], [place] [address] Sep, [facility] [address] [id number] [address] [place] [address], [place] [address] Sep, [facility] [address] [id number] [address] [place] [address], [place] [address] Aug, [facility] [address] [id number] [address] [place] [address], [place] [address] Aug, [facility] [address] [id number] [address] [place] [address], [place] [address] Aug, [facility] [address] [id number] [address] [place] [address], [place] [address] Aug, [facility] [address] [id number] [address] [place] [address], [place] [address] 30 Jul, 2013 [facility] [address] [id number] [address] [place] [address], [place] [address] 30 Jul, 2013 [facility] [address] [id number] [address] [place] [address], [place] [address] Jul, [facility] [address] [id number] [address] [place] [address], [place] [address] Jul, [facility] [address] [id number] [address] [place] [address], [place] [address] Jul, [facility] [address] [id number] [address] [place] [address], [place] [address] Jul, [facility] [address] [id number] [address] [place] [address], [place] [address] Jun, [facility] [address] [id number] [address] [place] [address], [place] [address] Jun, [facility] [address] [id number] [address] [place] [address], [place] [address] Jun, [facility] [address] [id number] [address] [place] [address], [place] [address] Jun, [facility] [address] [id number] [address] [place] [address], [place] [address] Jun, [facility] [address] [id number] [address] [place] [address], [place] [address] Jun, [facility] [address] [id number] [address] [place] [address], [place] [address] May, [facility] [address] [id number] [address] [place] [address], [place] [address] May, [facility] [address] [id number] [address] [place] [address], [place] [address] May, [facility] [address] [id number] [address] [place] [address], [place] [address] May, [facility] [address] [id number] [address] [place] [address], [place] [address] May, [facility] [address] [id number] [address] [place] [address], [place] [address] May, [facility] [address] [id number] [address] [place] [address], [place] [address] May, [facility] [address] [id number] [address] [place] [address], [place] [address] May, [facility] [address] [id number] [address] [place] [address], [place] [address] Apr, [facility] [address] [id number] [address] [place] [address], [place] [address] Apr, [facility] [address] [id number] [address] [place] [address], [place] [address] Mar, [facility] [address] [id number] [address] [place] [address], [place] [address] Mar, [facility] [address] [id number] [address] [place] [address], [place] [address] Mar, [facility] [address] [id number] [address] [place] [address], [place] [address] Mar, [facility] [address] [id number] [address] [place] [address], [place] [address] Feb, [facility] [address] [id number] [address] [place] [address], [place] [address] Jan, [facility] [address] [id number] [address] [place] [address], [place] [address] December, [facility] [address] [id number] [address] [place] [address], [place] [address] December, [facility] [address] [id number] [address] [place] [address], [place] [address] December, [facility] [address] [id number] [address] [place] [address], [place] [address] Nov, [facility] [address] [id number] [address] [place] [address], [place] [address] Nov, [facility] [address] [id number] [address] [place] [address], [place] [address] Sep, [facility] [address] [id number] [address] [place] [address], [place] [address] Sep, [facility] [address] [id number] [address] [place] [address], [place] [address] Sep, [facility] [address] [id number] [address] [place] [address], [place] [address] Sep, [facility] [address] [id number] [address] [place] [address], [place] [address] Aug, [facility] [address] [id number] [address] [place] [address], [place] [address] Aug, [facility] [address] [id number] [address] [place] [address], [place] [address] Aug, [facility] [address] [id number] [address] [place] [address], [place] [address] Aug, [facility] [address] [id number] [address] [place] [address], [place] [address] Jul, [facility] [address] [id number] [address] [place] [address], [place] [address] Jul, [facility] [address] [id number] [address] [place] [address], [place] [address] Jul, [facility] [address] [id number] [address] [place] [address], [place] [address] Jul, [facility] [address] [id number] [address] [place] [address], [place] [address] Jun, [facility] [address] [id number] [address] [place] [address], [place] [address] Jun, [facility] [address] [id number] [address] [place] [address], [place] [address] Jun, [facility] [address] [id number] [address] [place] [address], [place] [address] Jun, [facility] [address] [id number] [address] [place] [address], [place] [address] May, [facility] [address] [id number] [address] [place] [address], [place] [address] May, [facility] [address] [id number] [address] [place] [address], [place] [address] May, [facility] [address] [id number] [address] [place] [address], [place] [address] May, [facility] [address] [id number] [address] [place] [address], [place] [address] May, [facility] [address] [id number] [address] [place] [address], [place] [address] 10 Apr, 2012 [facility] [address] [id number] [address] [place] [address], [place] [address] 08 Apr, 2012 [facility] [address] [id number] [address] [place] [address] 07 Apr, 2012 [facility] [address] [id number] [address] [place] [address], [place] [address] 06 Apr, 2012 [facility] [address] [id number] [address] [place] [address], [place] [address] Mar, [facility] [address] [id number] [address] [place] [address], [place] [address] Mar, [facility] [address] [id number] [address] [place] [address], [place] [address] Feb, [facility] [address] [id number] [address] [place] [address], [place] [address] Feb, [facility] [address] [id number] [address] [place] [address], [place] [address] Feb, [facility] [address] [id number] [address] [place] [address], [place] [address] Jan, [facility] [address] [id number] [address] [place] [address], [place] [address] Jan, [facility] [address] [id number] [address] [place] [address], [place] [address] December, [facility] [address] [id number] [address] [place] [address], [place] [address] December, [facility] [address] [id number] [address] [place] [address], [place] [address] Nov, [facility] [address] [id number] [address] [place] [address], [place] [address] Oct, [facility] [address] [id number] [address] [place] [address], [place] [address] Oct, [facility] [address] [id number] [address] [place] [address], [place] [address] Sep, [facility] [address] [id number] [address] [place] [address], [place] [address] Sep, [facility] [address] [id number] [address] [place] [address], [place] [address] Aug, [facility] [address] [id number] [address] [place] [address], [place] [address] Aug, [facility] [address] [id number] [address] [place] [address], [place] [address] Jul, [facility] [address] [id number] [address] [place] [address], [place] [address] Jul, [facility] [address] [id number] [address] [place] [address], [place] [address] 09 Jul, 2011 [facility] [address] [id number] [address] [place] [address], [place] [address] 07 Jun, 2011 [facility] [address] [id number] [address] [place] [address], [place] [address] 07 Jun, 2011 [facility] [address] [id number] [address] [place] [address], [place] [address] 13 May, 2011 [facility] [address] [id number] [address] [place] [address], [place] [address] May, [facility] [address] [id number] [address] [place] [address], [place] [address] May, [facility] [address] [id number] [address] [place] [address], [place] [address] Jul, [facility] [address] [id number] [address] [place] [address], [place] [address] Jul, [facility] [address] [id number] [address] [place] [address], [place] [address] 15 Jun, 2010 [facility] [address] [id number] [address] [place] [address], [place] [address] May, [facility] [address] [id number] [address] [place] [address], [place] [address] May, [facility] [address] [id number] [address] [place] [address], [place] [address] 14 Aug, 2009 [facility] [address] [id number] [address] [place] [address], [place] [address] 17 Jul, 2009 [facility] [address] [id number] [address] [place] [address], [place] [address] Jun, [facility] [address] [id number] [address] [place] [address], [place] [address] 10 Jun, 2009 [facility] [address] [id number] [address] [place] [address] Jun, [facility] [address] [id number] [address] [place] [address] Jun, [facility] [address] [id number] [address] [place] [address] Jun, [facility] [address] [id number] [address] [place] [address] May, [facility] [address] [id number] [address] [place] [address] Sep, IMMUNIZATIONS No Known Immunizations SOCIAL HISTORY [...]
--- OUTSIDE RECORDS SUMMARY | 2020-01-28 14:26 | XMS REPORT ---
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 Name Role Phone GEORGINA RODRIGUEZ Unavailable PROBLEMS Type Condition ICD9-CM Code IUR51-IR Code Onset Dates Condition S tatus SNOMED Code Problem Osteoarthritis M19.90 Active 10831 5006 Problem Chronic obstructive pulmonary disease, unspecified COPD ty pe J44.9 Active 77097939 Problem Acquired hypothyroidism E03.9 Active 649423812 Problem Cigarette nicotine dependence without complication F17.210 Active 60695385 Problem Diabetes E11.9 Active 806477582 Problem High risk medication use Z79.899 Activ e 510827215 Problem Urinary incontinence, unspecified type R32 Active 373719595 Problem [facility] (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.01 Active 765765432 Problem Morbid obesity, unspecified obesity type E66.01 Active 955279774 Problem Other chronic pain G89.29 Active 8 9412196 Problem History of cataract surgery Z98.49 Ac tive 746713659 Problem Type 2 diabetes mellitus wit h hyperglycemia, without long-term current use of insulin E11.65 Active 89621234 Problem Encounter for immunization Z23 Act essie 694973648 Problem Irregular heart beats I49.9 Active 441512928 Problem Other urinary incontinence N39.498 Act essie 860122977 Problem Essential hypertension I10 Active 22635475 Problem Chronic atrial fibrillation I48.2 Ac tive 041062648 ALLERGIES No Information ENCOUNTERS Encounter Location Date Diagnosis [facility] [address] [facility] [id number] [address] [place] [address] Oct, [facility] [address] [facility] [id number] [address] [place] [address] Oct, [facility] (current) use of a nticoagulants Z79.01 [facility] [address] [id number] [address] [place] [address] Oct, 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 [facility] [address] [id number] [address] [place] [address] Sep, [facility] [address] [id number] [address] [place] [address] Aug, Osteoarthritis M19.90 [facility] [address] [id number] [address] [place] [address] Aug, Diabetes E11.9 ; [facility] ( 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.01 ; Tobacco abuse Z72.0 ; Low back pain M54.5 and Chronic atrial fibrillation I48.2 [place] [address] [id number] [address] [place] [address] Aug, Diabetes E11.9 [facility] [address] [facility] [id number] [address] [place] [address] Aug, [facility] [address] [id number] [address] [place] [address] 08 Aug, 2019 Acute non-recurrent pansinus itis J01.40 and Non- recurrent acute suppurative otitis media of left ear without spontaneous rupture of tympanic membrane H66.002 [place] [address] [id number] [address] [place] [address] Aug, [facility] [address] [id number] [address] [place] [address] Aug, 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 [facility] [address] [id number] [address] [place] [address] Aug, 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 [facility] [address] [id number] [address] [place] [address] Jul, Osteoarthritis M19.90 [facility] [address] [facility] [id number] [address] [place] [address] Jul, Osteoarthritis M19.90 [facility] [address] [id number] [address] [place] [address] Jun, [facility] [address] [id number] [address] [place] [address] Jun, Chronic atrial fibrillation I48.2 [facility] [address] [facility] [id number] [address] [place] [address] Jun, Osteoarthritis M19.90 [facility] [address] [id number] [address] [place] [address] Jun, Chronic atrial fibrillation I48.2 [facility] [address] [id number] [address] [place] [address] May, Osteoarthritis M19.90 [facility] [address] [facility] [id number] [address] [place] [address] May, Chronic atrial fibrillation I48.2 [facility] [address] [id number] [address] [place] [address] Apr, Osteoarthritis M19.90 [facility] [address] [facility] [id number] [address] [place] [address] Mar, Chronic atrial fibrillation I48.2 [facility] [address] [facility] [id number] [address] [place] [address] Mar, Chronic atrial fibrillation I48.2 [facility] [address] [facility] [id number] [address] [place] [address] Mar, Osteoarthritis M19.90 [facility] [address] [facility] [id number] [address] [place] [address] Mar, Chronic atrial fibrillation I48.2 [facility] [address] [facility] [id number] [address] [place] [address] Mar, Type 2 diabetes mellitus wit h hyperglycemia, without long-term current use of insulin E11.65 ; Chronic atrial fibrillation I48.2 and Morbid obesity E66.01 [facility] [address] [id number] [address] [place] [address] Feb, Osteoarthritis M19.90 [facility] [address] [id number] [address] [place] [address] Feb, Chronic atrial fibrillation I48.2 [facility] [address] [id number] [address] [place] [address] Feb, Hyperglycemia R73.9 ; Diabet es E11.9 ; Morbid obesity E66.01 ; Acquired hypothyroidism E03.9 ; Osteoarthritis M19.90 and High risk medication use Z79.899 [facility] [address] [id number] [address] [place] [address] Feb, Chronic atrial fibrillation I48.2 [facility] [address] [id number] [address] [place] [address] Jan, Osteoarthritis M19.90 [facility] [address] [id number] [address] [place] [address] Jan, Chronic atrial fibrillation I48.2 [facility] [address] [id number] [address] [place] [address] Jan, Chronic atrial fibrillation I48.2 [facility] [address] [id number] [address] [place] [address] Jan, Chronic atrial fibrillation I48.2 [facility] [address] [facility] [id number] [address] [place] [address] Jan, [facility] (current) use of a nticoagulants Z79.01 [facility] [address] [id number] [address] [place] [address] December, [facility] [address] [id number] [address] [place] [address] December, [facility] [address] [facility] [id number] [address] [place] [address] December, Osteoarthritis M19.90 [facility] [address] [id number] [address] [place] [address] Nov, [facility] [address] [id number] [address] [place] [address] Nov, Osteoarthritis M19.90 [facility] [address] [id number] [address] [place] [address] Oct, Osteoarthritis M19.90 [facility] [address] [facility] [id number] [address] [place] [address] Sep, Osteoarthritis M19.90 [facility] [address] [facility] [id number] [address] [place] [address] Sep, [facility] (current) use of a nticoagulants Z79.01 ; BMI 45.0-49.9, adult Z68.42 ; Diabetes E11.9 ; Chronic atrial fibrillation I48.2 and Chronic obstructive pulmonary disease, unspecified COPD type J44.9 [facility] [address] [facility] [id number] [address] [place] [address] Sep, Diabetes E11.9 ; [facility] ( 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.01 ; Chronic atrial fibrillation I48.2 ; Chronic obstructive pulmonary disease, unspecified COPD type J44.9 and BMI 45.0-49.9, adult Z68.42 [facility] [address] [facility] [id number] [address] [place] [address] Aug, Osteoarthritis M19.90 [facility] [address] [facility] [id number] [address] [place] [address] Aug, [facility] [address] [facility] [id number] [address] [place] [address] Aug, [facility] (current) use of a nticoagulants Z79.01 ; BMI 45.0-49.9, adult Z68.42 ; Diabetes E11.9 and Chronic atrial fibrillation I48.2 [facility] [address] [facility] [id number] [address] [place] [address] Aug, [facility] [address] [id number] [address] [place] [address] Jul, Osteoarthritis M19.90 [facility] [address] [id number] [address] [place] [address] Jun, Osteoarthritis M19.90 [facility] [address] [facility] [id number] [address] [place] [address] Jun, [facility] (current) use of a nticoagulants Z79.01 [facility] [address] [facility] [id number] [address] [place] [address] Jun, Chronic atrial fibrillation I48.2 and 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 [place] [address] [facility] [id number] [address] [place] [address] Jun, Osteoarthritis M19.90 [place] [address] [place] [id number] [place] [address] May, Encounter for immunization Z 23 [facility] [address] [facility] [id number] [address] [place] [address] May, 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 [facility] [address] [facility] [id number] [address] [place] [address] May, Osteoarthritis M19.90 [place] [address] [place] [id number] [address] [place] [address] May, [facility] [address] [facility] [id number] [address] [place] [address] May, Diabetes E11.9 ; [facility] ( 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.01 ; Chronic atrial fibrillation I48.2 ; BMI 45.0-49.9, adult Z68.42 ; Osteoarthritis M19.90 ; Low back pain M54.5 and Other chronic pain G89.29 [facility] [address] [facility] [id number] [address] [place] [address] Apr, Chronic atrial fibrillation I48.2 [place] [address] [facility] [id number] [address] [place] [address] 13 Apr, 2018 [facility] (current) use of a nticoagulants Z79.01 [facility] [address] [id number] [address] [place] [address] 07 Apr, 2018 Osteoarthritis M19.90 [facility] [address] [id number] [address] [place] [address] 04 Apr, 2018 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 and Chronic atrial fibrillation I48.2 [facility] [address] [id number] [address] [place] [address] Mar, Osteoarthritis M19.90 [facility] [address] [id number] [address] [place] [address] Feb, Osteoarthritis M19.90 [facility] [address] [facility] [id number] [address] [place] [address] Jan, Osteoarthritis M19.90 [facility] [address] [id number] [address] [place] [address] December, [facility] [address] [id number] [address] [place] [address] December, Osteoarthritis M19.90 [facility] [address] [facility] [id number] [address] [place] [address] Nov, Diabetes E11.9 ; [facility] ( 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.01 ; Acquired hypothyroidism E03.9 ; Cigarette nicotine dependence without complication F17.210 ; Osteoarthritis M19.90 ; BMI 45.0-49.9, adult Z68.42 and Chronic atrial fibrillation I48.2 [facility] [address] [id number] [address] [place] [address] Nov, Osteoarthritis M19.90 [facility] [address] [id number] [address] [place] [address] Oct, Osteoarthritis M19.90 [facility] [address] [facility] [id number] [address] [place] [address] Oct, 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 [facility] [address] [facility] [id number] [address] [place] [address] Sep, Osteoarthritis M19.90 [facility] [address] [facility] [id number] [address] [place] [address] Sep, [facility] [address] [place] [id number] [address] [place] [address] Aug, Osteoarthritis M19.90 [facility] [address] [facility] [id number] [address] [place] [address] Jul, Osteoarthritis M19.90 [facility] [address] [address] Jul, Osteoarthritis M19.90 [facility] [address] [address] Jun, Diabetes E11.9 ; Encounter f or immunization Z23 ; 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 ; Chronic atrial fibrillation I48.2 ; Osteoarthritis M19.90 ; Tobacco abuse Z72.0 and Bug bite, initial encounter W57.XXXA [facility] [address] [address] May, Osteoarthritis M19.90 [facility] [address] [address] Apr, Osteoarthritis M19.90 [facility] [address] [place] [id number] [address] [place] [address] Mar, Chronic atrial fibrillation I48.2 [facility] [address] [place] [id number] [place] [address] Mar, [facility] [address] [place] [id number] [address] [place] [address] Mar, Osteoarthritis M19.90 [facility] [address] [place] [id number] [address] [place] [address] Mar, [facility] (current) use of a nticoagulants Z79.01 and Chronic atrial fibrillation I48.2 [facility] [address] [id number] [address] [place] [address] Mar, Chronic atrial fibrillation I48.2 and 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 [facility] [address] [id number] [address] [place] [address] Mar, 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 [place] [address] [id number] [address] [place] [address] Mar, 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 [place] [address] [id number] [address] [place] [address] Mar, Osteoarthritis M19.90 [place] [address] [id number] [address] [place] [address] Feb, Encounter for screening mamm ogram for malignant neoplasm of breast Z12.31 [place] [address] [id number] [address] [place] [address] Feb, Osteoarthritis M19.90 [place] [address] [id number] [address] [place] [address] Jan, [place] [address] [id number] [address] [place] [address] Jan, [facility] (current) use of a nticoagulants Z79.01 ; Diabetes E11.9 ; Osteoarthritis M19.90 and Breast cancer screening Z12.39 [place] [address] [id number] [address] [place] [address] Jan, Osteoarthritis M19.90 [place] [address] [id number] [address] [place] [address] Jan, Osteoarthritis M19.90 [facility] [address] [facility] [id number] [address] [place] [address] Jan, [facility] [address] [facility] [id number] [address] [place] [address] December, Osteoarthritis M19.90 [facility] [address] [facility] [id number] [address] [place] [address] December, Osteoarthritis M19.90 [facility] [address] [id number] [id number] Nov, [facility] [address] [facility] [id number] [address] [place] [address] Nov, [facility] [address] [facility] [id number] [address] [place] [address] Nov, [facility] [address] [facility] [id number] [address] [place] [address] Nov, Diabetes E11.9 [place] [address] [facility] [id number] [address] [place] [address] Nov, [facility] [address] [facility] [id number] [address] [place] [address] Oct, Osteoarthritis M19.90 [facility] [address] [facility] [id number] [address] [place] [address] Oct, Osteoarthritis M19.90 ; 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 ; Diabetes E11.9 ; Cigarette nicotine dependence without complication F17.210 and Chronic atrial fibrillation I48.2 [place] [address] [facility] [id number] [address] [place] [address] Aug, [facility] [address] [facility] [id number] [address] [place] [address] Aug, [facility] (current) use of a nticoagulants Z79.01 [facility] [address] [facility] [id number] [address] [place] [address] Aug, [facility] [address] [id number] [id number] Aug, [place] [address] [place] [id number] [address] [place] [address] Aug, [facility] [address] [address] Aug, [facility] [id number] [place] [id number] Aug, [facility] [address] [place] [id number] Aug Osteoarthritis M19.90 and Essential hypertension I10 [facility] [address] [address] Aug, Other urinary incontinence N 39.498 [place] [address] [address] Jul, Osteoarthritis M19.90 [place] [address] [address] Jun, Diabetes E11.9 ; Encounter f or immunization Z23 ; Osteoarthritis M19.90 ; [facility] (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.01 ; Cigarette nicotine dependence without complication F17.210 ; Acquired hypothyroidism E03.9 ; Morbid obesity, unspecified obesity type E66.01 and Irregular heart beats I49.9 [facility] [id number] [place] [address] Jun, Osteoarthritis M19.90 [place] [address] [address] May, Osteoarthritis M19.90 [facility] [address] [address] May, Urinary incontinence, unspec ified type R32 [place] [address] [address] May, [facility] [address] [place] [id number] [address] [place] [address] Apr, Osteoarthritis M19.90 [facility] [address] [address] Apr, 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 [facility] [address] [facility] [id number] [address] [place] [address] Apr, [facility] [address] [facility] [id number] [address] [place] [address] Apr, Osteoarthritis M19.90 [facility] [address] [facility] [id number] [address] [place] [address] Mar, Diabetes E11.9 ; Hypothyroid ism, unspecified type E03.9 ; Osteoarthritis M19.90 ; High risk medication use Z79.899 ; Cigarette nicotine dependence without complication F17.210 and Morbid obesity, unspecified obesity type E66.01 [place] [address] [facility] [id number] [address] [place] [address] Mar, Osteoarthritis M19.90 [place] [address] [facility] [id number] [address] [place] [address] December, Osteoarthritis M19.90 [place] [address] [facility] [id number] [address] [place] [address] December, [place] [address] [facility] [id number] [address] [place] [address] Oct, [place] [address] [facility] [id number] [address] [place] [address] Oct, [place] [address] [facility] [id number] [address] [place] [address] Aug, [facility] [address] [facility] [id number] [address] [place] [address] Jul, [place] [address] [facility] [id number] [address] [place] [address] Jul, [place] [address] [facility] [id number] [address] [place] [address] Jul, Diabetes E11.9 ; Encounter f or immunization Z23 ; Abnormal mammogram R92.8 ; Acquired hypothyroidism E03.9 ; High risk medication use Z79.899 ; Osteoarthritis M19.90 and Cigarette nicotine dependence without complication F17.210 [facility] [address] [id number] [address] [place] [address] Jul, [facility] [address] [facility] [id number] [address] [place] [address] Jun, Abnormal mammogram R92.8 [facility] [address] [id number] [address] [place] [address] Apr, [facility] [address] [id number] [address] [place] [address] Apr, [facility] [address] [id number] [address] [place] [address] Mar, [facility] [address] [id number] [address] [place] [address] Mar, 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 [facility] [address] [id number] [address] [place] [address] Feb, [facility] [address] [id number] [address] [place] [address] Jan, [facility] [address] [facility] [id number] [address] [place] [address] December, [facility] [address] [id number] [address] [place] [address] Nov, [facility] [address] [id number] [address] [place] [address] Nov, [facility] [address] [id number] [address] [place] [address] Oct, [facility] [address] [id number] [address] [place] [address] Oct, [facility] [address] [id number] [address] [place] [address] 17 Oct, 2014 [facility] [address] [id number] [address] [place] [address], [place] [address] 17 Oct, 2014 [facility] [address] [id number] [address] [place] [address], [place] [id number] Oct, [facility] [address] [id number] [address] [place] [address], [place] [id number] Oct, [facility] [address] [id number] [address] [place] [address], [place] [id number] Sep, [facility] [address] [id number] [address] [place] [address], [place] [id number] Sep, [facility] [address] [id number] [address] [place] [address], [place] [id number] Sep, [facility] [address] [id number] [address] [place] [address], [place] [id number] Sep, [facility] [address] [id number] [address] [place] [address], [place] [id number] Aug, [facility] [address] [id number] [address] [place] [address], [place] [id number] Aug, [facility] [address] [id number] [address] [place] [address], [place] [address] Aug, [facility] [address] [id number] [address] [place] [address], [place] [id number] Aug, [facility] [address] [id number] [address] [place] [address], [place] [address] Aug, [facility] [address] [id number] [address] [place] [address], [place] [address] Aug, [facility] [address] [id number] [address] [place] [address], [place] [address] Jul, [facility] [address] [id number] [address] [place] [address], [place] [address] Jul, [facility] [address] [id number] [address] [place] [address], [place] [address] Jul, [facility] [address] [id number] [address] [place] [address], [place] [address] Jul, [facility] [address] [id number] [address] [place] [address], [place] [address] Jul, [facility] [address] [id number] [address] [place] [address], [place] [address] Jul, [facility] [address] [id number] [address] [place] [address], [place] [address] Jun, [facility] [address] [id number] [address] [place] [address], [place] [address] Jun, [facility] [address] [id number] [address] [place] [address], [place] [address] Jun, [facility] [address] [id number] [address] [place] [address], [place] [address] Jun, [facility] [address] [id number] [address] [place] [address], [place] [address] Jun, [facility] [address] [id number] [address] [place] [address], [place] [address] Jun, [facility] [address] [id number] [address] [place] [address], [place] [address] Jun, [facility] [address] [id number] [address] [place] [address], [place] [id number] Jun, [facility] [address] [id number] [address] [place] [address], [place] [address] Jun, [facility] [address] [id number] [address] [place] [address], [place] [address] May, [facility] [address] [id number] [address] [place] [address], [place] [address] May, [facility] [address] [id number] [address] [place] [address], [place] [address] Apr, [facility] [address] [id number] [address] [place] [address], [place] [address] Apr, 2013 [facility] [address] [id number] [address] [place] [address], [place] [address] Apr, 2013 [facility] [address] [id number] [address] [place] [address], [place] [address] Apr, 2013 [facility] [address] [id number] [address] [place] [address], [place] [address] Apr, 2013 [facility] [address] [id number] [address] [place] [address], [place] [address] Apr, 2013 [facility] [address] [id number] [address] [place] [address], [place] [address] Apr, 2013 [facility] [address] [id number] [address] [place] [address], [place] [address] Apr, 2013 [facility] [address] [id number] [address] [place] [address], [place] [address] Apr, [facility] [address] [id number] [address] [place] [address], [place] [address] Apr, [facility] [address] [id number] [address] [place] [address], [place] [address] Mar, [facility] [address] [id number] [address] [place] [address], [place] [address] Mar, [facility] [address] [id number] [address] [place] [address], [place] [address] Mar, [facility] [address] [id number] [address] [place] [address], [place] [address] Mar, [facility] [address] [id number] [address] [place] [address], [place] [address] Mar, [facility] [address] [id number] [address] [place] [address], [place] [address] Mar, [facility] [address] [id number] [address] [place] [address], [place] [address] Feb, [facility] [address] [id number] [address] [place] [address], [place] [address] Feb, [facility] [address] [id number] [address] [place] [address], [place] [address] Feb, [facility] [address] [id number] [address] [place] [address], [place] [address] Feb, [facility] [address] [id number] [address] [place] [address], [place] [address] Jan, [facility] [address] [id number] [address] [place] [address], [place] [address] Jan, [facility] [address] [id number] [address] [place] [address], [place] [address] Jan, [facility] [address] [id number] [address] [place] [address], [place] [address] Jan, [facility] [address] [id number] [address] [place] [address], [place] [address] Oct, [facility] [address] [id number] [address] [place] [address], [place] [address] Oct, [facility] [address] [id number] [address] [place] [address], [place] [address] Sep, [facility] [address] [id number] [address] [place] [address], [place] [address] Sep, [facility] [address] [id number] [address] [place] [address], [place] [address] Sep, [facility] [address] [id number] [address] [place] [address], [place] [address] Sep, [facility] [address] [id number] [address] [place] [address], [place] [address] Aug, [facility] [address] [id number] [address] [place] [address], [place] [address] Aug, [facility] [address] [id number] [address] [place] [address], [place] [address] Aug, [facility] [address] [id number] [address] [place] [address], [place] [address] Aug, [facility] [address] [id number] [address] [place] [address], [place] [address] 30 Jul, 2013 [facility] [address] [id number] [address] [place] [address], [place] [address] 30 Jul, 2013 [facility] [address] [id number] [address] [place] [address], [place] [address] Jul, [facility] [address] [id number] [address] [place] [address], [place] [address] Jul, [facility] [address] [id number] [address] [place] [address], [place] [address] Jul, [facility] [address] [id number] [address] [place] [address], [place] [address] Jul, [facility] [address] [id number] [address] [place] [address], [place] [address] Jun, [facility] [address] [id number] [address] [place] [address], [place] [address] Jun, [facility] [address] [id number] [address] [place] [address], [place] [address] Jun, [facility] [address] [id number] [address] [place] [address], [place] [address] Jun, [facility] [address] [id number] [address] [place] [address], [place] [address] Jun, [facility] [address] [id number] [address] [place] [address], [place] [address] Jun, [facility] [address] [id number] [address] [place] [address], [place] [address] May, [facility] [address] [id number] [address] [place] [address], [place] [address] May, [facility] [address] [id number] [address] [place] [address], [place] [address] May, [facility] [address] [id number] [address] [place] [address], [place] [address] May, [facility] [address] [id number] [address] [place] [address], [place] [address] May, [facility] [address] [id number] [address] [place] [address], [place] [address] May, [facility] [address] [id number] [address] [place] [address], [place] [address] May, [facility] [address] [id number] [address] [place] [address], [place] [address] May, [facility] [address] [id number] [address] [place] [address], [place] [address] Apr, [facility] [address] [id number] [address] [place] [address], [place] [address] Apr, [facility] [address] [id number] [address] [place] [address], [place] [address] Mar, [facility] [address] [id number] [address] [place] [address], [place] [address] Mar, [facility] [address] [id number] [address] [place] [address], [place] [address] Mar, [facility] [address] [id number] [address] [place] [address], [place] [address] Mar, [facility] [address] [id number] [address] [place] [address], [place] [address] Feb, [facility] [address] [id number] [address] [place] [address], [place] [address] Jan, [facility] [address] [id number] [address] [place] [address], [place] [address] December, [facility] [address] [id number] [address] [place] [address], [place] [address] December, [facility] [address] [id number] [address] [place] [address], [place] [address] December, [facility] [address] [id number] [address] [place] [address], [place] [address] Nov, [facility] [address] [id number] [address] [place] [address], [place] [address] Nov, [facility] [address] [id number] [address] [place] [address], [place] [address] Sep, [facility] [address] [id number] [address] [place] [address], [place] [address] Sep, [facility] [address] [id number] [address] [place] [address], [place] [address] Sep, [facility] [address] [id number] [address] [place] [address], [place] [address] Sep, [facility] [address] [id number] [address] [place] [address], [place] [address] Aug, [facility] [address] [id number] [address] [place] [address], [place] [address] Aug, [facility] [address] [id number] [address] [place] [address], [place] [address] Aug, [facility] [address] [id number] [address] [place] [address], [place] [address] Aug, [facility] [address] [id number] [address] [place] [address], [place] [address] Jul, [facility] [address] [id number] [address] [place] [address], [place] [address] Jul, [facility] [address] [id number] [address] [place] [address], [place] [address] Jul, [facility] [address] [id number] [address] [place] [address], [place] [address] Jul, [facility] [address] [id number] [address] [place] [address], [place] [address] Jun, [facility] [address] [id number] [address] [place] [address], [place] [address] Jun, [facility] [address] [id number] [address] [place] [address], [place] [address] Jun, [facility] [address] [id number] [address] [place] [address], [place] [address] Jun, [facility] [address] [id number] [address] [place] [address], [place] [address] May, [facility] [address] [id number] [address] [place] [address], [place] [address] May, [facility] [address] [id number] [address] [place] [address], [place] [address] May, [facility] [address] [id number] [address] [place] [address], [place] [address] May, [facility] [address] [id number] [address] [place] [address], [place] [address] May, [facility] [address] [id number] [address] [place] [address], [place] [address] 10 Apr, 2012 [facility] [address] [id number] [address] [place] [address], [place] [address] 08 Apr, 2012 [facility] [address] [id number] [address] [place] [id number] 07 Apr, 2012 [facility] [address] [id number] [address] [place] [address], [place] [address] 06 Apr, 2012 [facility] [address] [id number] [address] [place] [address], [place] [address] Mar, [facility] [address] [id number] [address] [place] [address], [place] [address] Mar, [facility] [address] [id number] [address] [place] [address], [place] [address] Feb, [facility] [address] [id number] [address] [place] [address], [place] [address] Feb, [facility] [address] [id number] [address] [place] [address], [place] [address] Feb, [facility] [address] [id number] [address] [place] [address], [place] [address] Jan, [facility] [address] [id number] [address] [place] [address], [place] [address] Jan, [facility] [address] [id number] [address] [place] [address], [place] [address] December, [facility] [address] [id number] [address] [place] [address], [place] [address] December, [facility] [address] [id number] [address] [place] [address], [place] [address] Nov, [facility] [address] [id number] [address] [place] [address], [place] [address] Oct, [facility] [address] [id number] [address] [place] [address], [place] [address] Oct, [facility] [address] [id number] [address] [place] [address], [place] [address] Sep, [facility] [address] [id number] [address] [place] [address], [place] [address] Sep, [facility] [address] [id number] [address] [place] [address], [place] [address] Aug, [facility] [address] [id number] [address] [place] [address], [place] [address] Aug, [facility] [address] [id number] [address] [place] [address], [place] [address] Jul, [facility] [address] [id number] [address] [place] [address], [place] [address] Jul, [facility] [address] [id number] [address] [place] [address], [place] [address] 09 Jul, 2011 [facility] [address] [id number] [address] [place] [address], [place] [id number] 07 Jun, 2011 [facility] [address] [id number] [address] [place] [address], [place] [address] 07 Jun, 2011 [facility] [address] [id number] [address] [place] [address], [place] [address] 13 May, 2011 [facility] [address] [id number] [address] [place] [address], [place] [address] May, [facility] [address] [id number] [address] [place] [address], [place] [address] May, [facility] [address] [id number] [address] [place] [address], [place] [address] Jul, [facility] [address] [id number] [address] [place] [address], [place] [address] Jul, [facility] [address] [id number] [address] [place] [address], [place] [id number] 15 Jun, 2010 [facility] [address] [id number] [address] [place] [address], [place] [address] May, [facility] [address] [id number] [address] [place] [address], [place] [address] May, [facility] [address] [id number] [address] [place] [address], [place] [address] 14 Aug, 2009 [facility] [address] [id number] [address] [place] [address], [place] [id number] 17 Jul, 2009 [facility] [address] [id number] [address] [place] [address], [place] [address] Jun, [facility] [address] [id number] [address] [place] [address], [place] [address] 10 Jun, 2009 [facility] [address] [id number] [address] [place] [id number] Jun, [facility] [address] [facility] [id number] [address] [place] [id number] Jun, [facility] [address] [facility] [id number] [address] [place] [id number] Jun, [facility] [address] [facility] [id number] [address] [place] [id number] May, [facility] [address] [facility] [id number] [address] [place] [id number] Sep, IMMUNIZATIONS No Known Immunizations SOCIAL HISTORY [...]
--- OUTSIDE RECORDS SUMMARY | 2020-01-28 14:26 | XMS REPORT ---
Author Author Katarina RODRIGUEZ Organization [facility] Address [address] [place] [address] Care Team Providers Care Recreation Therapy Aides Teacher Name Role Phone GEORGINA RODRIGUEZ Unavailable PROBLEMS Type Condition ICD9-CM Code FER28-HO Code Onset Dates Condition S tatus SNOMED Code Problem Osteoarthritis M19.90 Active 02670 5006 Problem Chronic obstructive pulmonary disease, unspecified COPD ty pe J44.9 Active 70785837 Problem Acquired hypothyroidism E03.9 Active 222206948 Problem Cigarette nicotine dependence without complication F17.210 Active 55727970 Problem Diabetes E11.9 Active 984106088 Problem High risk medication use Z79.899 Activ e 469123436 Problem Urinary incontinence, unspecified type R32 Active 700050361 Problem penitentiary (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.01 Active 249910617 Problem Morbid obesity, unspecified obesity type E66.01 Active 679736460 Problem Other chronic pain G89.29 Active 8 3382333 Problem History of cataract surgery Z98.49 Ac tive 931916574 Problem Type 2 diabetes mellitus wit h hyperglycemia, without long-term current use of insulin E11.65 Active 33187726 Problem Encounter for immunization Z23 Act essie 711440560 Problem Irregular heart beats I49.9 Active 430748493 Problem Other urinary incontinence N39.498 Act essie 956830310 Problem Essential hypertension I10 Active 94209584 Problem Chronic atrial fibrillation I48.2 Ac tive 566282136 ALLERGIES No Information ENCOUNTERS Encounter Location Date Diagnosis [facility] [address] [facility] [id number] [place] [id number] Oct, [facility] [address] [facility] [id number] [place] [address] Oct, penitentiary (current) use of a nticoagulants Z79.01 [facility] [address] [id number] [address] [place] [id number] Oct, falsework builder (current) use of a nticoagulants Z79.01 [facility] [address] [id number] [address] [place] [id number] Sep, [facility] [address] [id number] [address] [place] [address] Aug, Osteoarthritis M19.90 [facility] [address] [id number] [address] [place] [id number] Aug, Diabetes E11.9 ; penitentiary ( 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.01 ; Tobacco abuse Z72.0 ; Low back pain M54.5 and Chronic atrial fibrillation I48.2 [facility] [address] [id number] [address] [place] [address] Aug, Diabetes E11.9 [facility] [address] [facility] [id number] [place] [id number] Aug, [facility] [address] [id number] [address] [place] [phone] 08 Aug, 2019 Acute non-recurrent pansinus itis J01.40 and Non- recurrent acute suppurative otitis media of left ear without spontaneous rupture of tympanic membrane H66.002 [facility] [address] [id number] [address] [place] [address] Aug, [facility] [address] [id number] [address] [place] [address] Aug, falsework builder (current) use of a nticoagulants Z79.01 [facility] [address] [id number] [address] [place] [address] Aug, falsework builder (current) use of a nticoagulants Z79.01 [facility] [address] [id number] [address] [place] [address] Jul, Osteoarthritis M19.90 [facility] [address] [facility] [id number] [place] [address] Jul, Osteoarthritis M19.90 [facility] [address] [id number] [address] [place] [id number] Jun, [facility] [address] [id number] [address] [place] [address] Jun, Chronic atrial fibrillation I48.2 [facility] [address] [facility] [id number] [place] [id number] Jun, Osteoarthritis M19.90 [facility] [address] [id number] [address] [place] [address] Jun, Chronic atrial fibrillation I48.2 [facility] [address] [id number] [address] [place] [address] May, Osteoarthritis M19.90 [facility] [address] [facility] [id number] [place] [phone] May, Chronic atrial fibrillation I48.2 [facility] [address] [id number] [address] [place] [address] Apr, Osteoarthritis M19.90 [facility] [address] [facility] [id number] [place] [id number] Mar, Chronic atrial fibrillation I48.2 [facility] [address] [facility] [id number] [place] [id number] Mar, Chronic atrial fibrillation I48.2 [facility] [address] [facility] [id number] [place] [id number] Mar, Osteoarthritis M19.90 [facility] [address] [facility] [id number] [place] [id number] Mar, Chronic atrial fibrillation I48.2 [facility] [address] [facility] [id number] [place] [id number] Mar, Type 2 diabetes mellitus wit h hyperglycemia, without long-term current use of insulin E11.65 ; Chronic atrial fibrillation I48.2 and Morbid obesity E66.01 [facility] [address] [id number] [address] [place] [address] Feb, Osteoarthritis M19.90 [facility] [address] [id number] [address] [place] [id number] Feb, Chronic atrial fibrillation I48.2 [facility] [address] [id number] [address] [place] [address] Feb, Hyperglycemia R73.9 ; Diabet es E11.9 ; Morbid obesity E66.01 ; Acquired hypothyroidism E03.9 ; Osteoarthritis M19.90 and High risk medication use Z79.899 [facility] [address] [id number] [address] [place] [address] Feb, Chronic atrial fibrillation I48.2 [facility] [address] [id number] [address] [place] [address] Jan, Osteoarthritis M19.90 [facility] [address] [id number] [address] [place] [address] Jan, Chronic atrial fibrillation I48.2 [facility] [address] [id number] [address] [place] [address] Jan, Chronic atrial fibrillation I48.2 [facility] [address] [id number] [address] [place] [id number] Jan, Chronic atrial fibrillation I48.2 [facility] [address] [facility] [id number] [place] [id number] Jan, penitentiary (current) use of a nticoagulants Z79.01 [facility] [address] [id number] [address] [place] [id number] December, [facility] [address] [id number] [address] [place] [address] December, [facility] [address] [facility] [id number] [place] [address] December, Osteoarthritis M19.90 [facility] [address] [id number] [address] [place] [address] Nov, [facility] [address] [id number] [address] [place] [address] Nov, Osteoarthritis M19.90 [facility] [address] [id number] [address] [place] [address] Oct, Osteoarthritis M19.90 [facility] [address] [facility] [id number] [place] [address] Sep, Osteoarthritis M19.90 [facility] [address] [facility] [id number] [place] [address] Sep, penitentiary (current) use of a nticoagulants Z79.01 ; BMI 45.0-49.9, adult Z68.42 ; Diabetes E11.9 ; Chronic atrial fibrillation I48.2 and Chronic obstructive pulmonary disease, unspecified COPD type J44.9 [facility] [address] [facility] [id number] [place] [address] Sep, Diabetes E11.9 ; penitentiary ( 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.01 ; Chronic atrial fibrillation I48.2 ; Chronic obstructive pulmonary disease, unspecified COPD type J44.9 and BMI 45.0-49.9, adult Z68.42 [facility] [address] [facility] [id number] [place] [id number] Aug, Osteoarthritis M19.90 [facility] [address] [facility] [id number] [place] [phone] Aug, [facility] [address] [facility] [id number] [place] [id number] Aug, penitentiary (current) use of a nticoagulants Z79.01 ; BMI 45.0-49.9, adult Z68.42 ; Diabetes E11.9 and Chronic atrial fibrillation I48.2 [facility] [address] [facility] [id number] [place] [id number] Aug, [facility] [address] [id number] [address] [place] [address] Jul, Osteoarthritis M19.90 [facility] [address] [id number] [address] [place] [address] Jun, Osteoarthritis M19.90 [facility] [address] [facility] [id number] [place] [id number] Jun, penitentiary (current) use of a nticoagulants Z79.01 [facility] [address] [facility] [id number] [place] [address] Jun, Chronic atrial fibrillation I48.2 and falsework builder (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.01 [facility] [address] [facility] [id number] [place] [id number] Jun, Osteoarthritis M19.90 [place] [address] [place] [id number] [place] [phone] May, Encounter for immunization Z 23 [facility] [address] [facility] [id number] [place] [id number] May, falsework builder (current) use of a nticoagulants Z79.01 [facility] [address] [facility] [id number] [place] [address] May, Osteoarthritis M19.90 [place] [address] [place] [id number] [address] [place] [address] May, [facility] [address] [facility] [id number] [place] [address] May, Diabetes E11.9 ; penitentiary ( 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.01 ; Chronic atrial fibrillation I48.2 ; BMI 45.0-49.9, adult Z68.42 ; Osteoarthritis M19.90 ; Low back pain M54.5 and Other chronic pain G89.29 [facility] [address] [facility] [id number] [place] [address] Apr, Chronic atrial fibrillation I48.2 [facility] [address] [facility] [id number] [place] [id number] 13 Apr, 2018 penitentiary (current) use of a nticoagulants Z79.01 [facility] [address] [id number] [address] [place] [id number] 07 Apr, 2018 Osteoarthritis M19.90 [facility] [address] [id number] [address] [place] [phone] 04 Apr, 2018 falsework builder (current) use of a nticoagulants Z79.01 and Chronic atrial fibrillation I48.2 [facility] [address] [id number] [address] [place] [address] Mar, Osteoarthritis M19.90 [facility] [address] [id number] [address] [place] [address] Feb, Osteoarthritis M19.90 [facility] [address] [facility] [id number] [place] [id number] Jan, Osteoarthritis M19.90 [facility] [address] [id number] [address] [place] [id number] December, [facility] [address] [id number] [address] [place] [address] December, Osteoarthritis M19.90 [facility] [address] [facility] [id number] [place] [address] Nov, Diabetes E11.9 ; penitentiary ( 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.01 ; Acquired hypothyroidism E03.9 ; Cigarette nicotine dependence without complication F17.210 ; Osteoarthritis M19.90 ; BMI 45.0-49.9, adult Z68.42 and Chronic atrial fibrillation I48.2 [facility] [address] [id number] [address] [place] [id number] Nov, Osteoarthritis M19.90 [facility] [address] [id number] [address] [place] [id number] Oct, Osteoarthritis M19.90 [facility] [address] [facility] [id number] [place] [id number] Oct, falsework builder (current) use of a nticoagulants Z79.01 [facility] [address] [facility] [id number] [place] [id number] Sep, Osteoarthritis M19.90 [facility] [address] [facility] [id number] [place] [address] Sep, [facility] [address] [place] [id number] [address] [place] [address] Aug, Osteoarthritis M19.90 [facility] [address] [facility] [id number] [place] [id number] Jul, Osteoarthritis M19.90 [facility] [address] [id number] Jul, Osteoarthritis M19.90 [facility] [address] [address] Jun, Diabetes E11.9 ; Encounter f or immunization Z23 ; falsework builder (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.01 ; Chronic atrial fibrillation I48.2 ; Osteoarthritis M19.90 ; Tobacco abuse Z72.0 and Bug bite, initial encounter W57.XXXA [facility] [address] [address] May, Osteoarthritis M19.90 [facility] [address] [address] Apr, Osteoarthritis M19.90 [facility] [address] [place] [id number] [address] [place] [address] Mar, Chronic atrial fibrillation I48.2 [facility] [address] [place] [id number] [place] [address] Mar, [facility] [address] [place] [id number] [address] [place] [address] Mar, Osteoarthritis M19.90 [facility] [address] [place] [id number] [address] [place] [id number] Mar, penitentiary (current) use of a nticoagulants Z79.01 and Chronic atrial fibrillation I48.2 [facility] [address] [id number] [address] [place] [address] Mar, Chronic atrial fibrillation I48.2 and falsework builder (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.01 [facility] [address] [id number] [address] [place] [address] Mar, falsework builder (current) use of a nticoagulants Z79.01 [place] [address] [id number] [address] [place] [address] Mar, falsework builder (current) use of a nticoagulants Z79.01 [place] [address] [id number] [address] [place] [address] Mar, Osteoarthritis M19.90 [place] [address] [id number] [address] [place] [address] Feb, Encounter for screening mamm ogram for malignant neoplasm of breast Z12.31 [place] [address] [id number] [address] [place] [address] Feb, Osteoarthritis M19.90 [place] [address] [id number] [address] [place] [address] Jan, [place] [address] [id number] [address] [place] [address] Jan, penitentiary (current) use of a nticoagulants Z79.01 ; Diabetes E11.9 ; Osteoarthritis M19.90 and Breast cancer screening Z12.39 [place] [address] [id number] [address] [place] [address] Jan, Osteoarthritis M19.90 [place] [address] [id number] [address] [place] [address] Jan, Osteoarthritis M19.90 [facility] [address] [facility] [id number] [place] [address] Jan, [facility] [address] [facility] [id number] [place] [address] December, Osteoarthritis M19.90 [facility] [address] [facility] [id number] [place] [address] December, Osteoarthritis M19.90 [facility] [address] [id number] [id number] Nov, [facility] [address] [facility] [id number] [place] [address] Nov, [facility] [address] [facility] [id number] [place] [address] Nov, [facility] [address] [facility] [id number] [place] [id number] Nov, Diabetes E11.9 [facility] [address] [facility] [id number] [place] [address] Nov, [facility] [address] [facility] [id number] [place] [address] Oct, Osteoarthritis M19.90 [facility] [address] [facility] [id number] [place] [address] Oct, Osteoarthritis M19.90 ; falsework builder (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.01 ; Diabetes E11.9 ; Cigarette nicotine dependence without complication F17.210 and Chronic atrial fibrillation I48.2 [facility] [address] [facility] [id number] [place] [address] Aug, [facility] [address] [facility] [id number] [place] [address] Aug, penitentiary (current) use of a nticoagulants Z79.01 [facility] [address] [facility] [id number] [place] [address] Aug, [facility] [address] [id number] [id number] Aug, [place] [address] [place] [id number] [address] [place] [address] Aug, [facility] [address] [address] Aug, [facility] [id number] [place] [id number] Aug, [facility] [address] [place] [id number] Aug Osteoarthritis M19.90 and Essential hypertension I10 [facility] [address] [address] Aug, Other urinary incontinence N 39.498 [place] [address] [address] Jul, Osteoarthritis M19.90 [place] [address] [address] Jun, Diabetes E11.9 ; Encounter f or immunization Z23 ; Osteoarthritis M19.90 ; penitentiary (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.01 ; Cigarette nicotine dependence without complication F17.210 ; Acquired hypothyroidism E03.9 ; Morbid obesity, unspecified obesity type E66.01 and Irregular heart beats I49.9 [facility] [id number] [place] [address] Jun, Osteoarthritis M19.90 [place] [address] [address] May, Osteoarthritis M19.90 [facility] [address] [address] May, Urinary incontinence, unspec ified type R32 [place] [address] [address] May, [facility] [address] [place] [id number] [address] [place] [address] Apr, Osteoarthritis M19.90 [facility] [address] [address] Apr, falsework builder (current) use of a nticoagulants Z79.01 [facility] [address] [facility] [id number] [place] [id number] Apr, [facility] [address] [facility] [id number] [place] [address] Apr, Osteoarthritis M19.90 [facility] [address] [facility] [id number] [place] [address] Mar, Diabetes E11.9 ; Hypothyroid ism, unspecified type E03.9 ; Osteoarthritis M19.90 ; High risk medication use Z79.899 ; Cigarette nicotine dependence without complication F17.210 and Morbid obesity, unspecified obesity type E66.01 [place] [address] [facility] [id number] [place] [id number] Mar, Osteoarthritis M19.90 [place] [address] [facility] [id number] [place] [address] December, Osteoarthritis M19.90 [place] [address] [facility] [id number] [place] [address] December, [place] [address] [facility] [id number] [place] [id number] Oct, [place] [address] [facility] [id number] [place] [address] Oct, [place] [address] [facility] [id number] [place] [id number] Aug, [facility] [address] [facility] [id number] [place] [id number] Jul, [facility] [address] [facility] [id number] [place] [id number] Jul, [facility] [address] [id number] [place] [id number] Jul, Diabetes E11.9 ; Encounter f or immunization Z23 ; Abnormal mammogram R92.8 ; Acquired hypothyroidism E03.9 ; High risk medication use Z79.899 ; Osteoarthritis M19.90 and Cigarette nicotine dependence without complication F17.210 [facility] [address] [id number] [address] [place] [id number] Jul, [facility] [address] [facility] [id number] [place] [id number] Jun, Abnormal mammogram R92.8 [facility] [address] [id number] [address] [place] [id number] Apr, [facility] [address] [id number] [address] [place] [id number] Apr, [facility] [address] [id number] [address] [place] [phone] Mar, [facility] [address] [id number] [address] [place] [id number] Mar, Current use of long term care phlebotomist ant 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 V58.61 [facility] [address] [id number] [address] [place] [id number] Feb, [facility] [address] [id number] [address] [place] [phone] Jan, [facility] [address] [facility] [id number] [place] [phone] December, [facility] [address] [id number] [address] [place] [id number] Nov, [facility] [address] [id number] [address] [place] [phone] Nov, [facility] [address] [id number] [address] [place] [phone] Oct, [facility] [address] [id number] [address] [place] [phone] Oct, [facility] [address] [id number] [address] [place] [id number] 17 Oct, 2014 [facility] [address] [id number] [address] [place] [address], [place] [id number] 17 Oct, 2014 [facility] [address] [id number] [address] [place] [address], [place] [id number] Oct, [facility] [address] [id number] [address] [place] [address], [place] [id number] Oct, [facility] [address] [id number] [address] [place] [address], [place] [id number] Sep, [facility] [address] [id number] [address] [place] [address], [place] [id number] Sep, [facility] [address] [id number] [address] [place] [address], [place] [id number] Sep, [facility] [address] [id number] [address] [place] [address], [place] [id number] Sep, [facility] [address] [id number] [address] [place] [address], [place] [address] Aug, [facility] [address] [id number] [address] [place] [address], [place] [address] Aug, [facility] [address] [id number] [address] [place] [address], [place] [address] Aug, [facility] [address] [id number] [address] [place] [address], [place] [address] Aug, [facility] [address] [id number] [address] [place] [address], [place] [address] Aug, [facility] [address] [id number] [address] [place] [address], [place] [address] Aug, [facility] [address] [id number] [address] [place] [address], [place] [address] Jul, [facility] [address] [id number] [address] [place] [address], [place] [address] Jul, [facility] [address] [id number] [address] [place] [address], [place] [address] Jul, [facility] [address] [id number] [address] [place] [address], [place] [address] Jul, [facility] [address] [id number] [address] [place] [address], [place] [address] Jul, [facility] [address] [id number] [address] [place] [address], [place] [address] Jul, [facility] [address] [id number] [address] [place] [address], [place] [address] Jun, [facility] [address] [id number] [address] [place] [address], [place] [address] Jun, [facility] [address] [id number] [address] [place] [address], [place] [address] Jun, [facility] [address] [id number] [address] [place] [address], [place] [address] Jun, [facility] [address] [id number] [address] [place] [address], [place] [address] Jun, [facility] [address] [id number] [address] [place] [address], [place] [address] Jun, [facility] [address] [id number] [address] [place] [address], [place] [address] Jun, [facility] [address] [id number] [address] [place] [address], [place] [address] Jun, [facility] [address] [id number] [address] [place] [address], [place] [address] Jun, [facility] [address] [id number] [address] [place] [address], [place] [address] May, [facility] [address] [id number] [address] [place] [address], [place] [address] May, [facility] [address] [id number] [address] [place] [address], [place] [address] Apr, [facility] [address] [id number] [address] [place] [address], [place] [address] Apr, 2013 [facility] [address] [id number] [address] [place] [address], [place] [address] Apr, 2013 [facility] [address] [id number] [address] [place] [address], [place] [address] Apr, 2013 [facility] [address] [id number] [address] [place] [address], [place] [address] Apr, 2013 [facility] [address] [id number] [address] [place] [address], [place] [address] Apr, 2013 [facility] [address] [id number] [address] [place] [address], [place] [address] Apr, 2013 [facility] [address] [id number] [address] [place] [address], [place] [address] Apr, 2013 [facility] [address] [id number] [address] [place] [address], [place] [address] Apr, [facility] [address] [id number] [address] [place] [address], [place] [address] Apr, [facility] [address] [id number] [address] [place] [address], [place] [address] Mar, [facility] [address] [id number] [address] [place] [address], [place] [address] Mar, [facility] [address] [id number] [address] [place] [address], [place] [address] Mar, [facility] [address] [id number] [address] [place] [address], [place] [address] Mar, [facility] [address] [id number] [address] [place] [address], [place] [address] Mar, [facility] [address] [id number] [address] [place] [address], [place] [address] Mar, [facility] [address] [id number] [address] [place] [address], [place] [address] Feb, [facility] [address] [id number] [address] [place] [address], [place] [address] Feb, [facility] [address] [id number] [address] [place] [address], [place] [address] Feb, [facility] [address] [id number] [address] [place] [address], [place] [address] Feb, [facility] [address] [id number] [address] [place] [address], [place] [address] Jan, [facility] [address] [id number] [address] [place] [address], [place] [address] Jan, [facility] [address] [id number] [address] [place] [address], [place] [address] Jan, [facility] [address] [id number] [address] [place] [address], [place] [address] Jan, [facility] [address] [id number] [address] [place] [address], [place] [address] Oct, [facility] [address] [id number] [address] [place] [address], [place] [address] Oct, [facility] [address] [id number] [address] [place] [address], [place] [address] Sep, [facility] [address] [id number] [address] [place] [address], [place] [address] Sep, [facility] [address] [id number] [address] [place] [address], [place] [address] Sep, [facility] [address] [id number] [address] [place] [address], [place] [address] Sep, [facility] [address] [id number] [address] [place] [address], [place] [address] Aug, [facility] [address] [id number] [address] [place] [address], [place] [address] Aug, [facility] [address] [id number] [address] [place] [address], [place] [address] Aug, [facility] [address] [id number] [address] [place] [address], [place] [address] Aug, [facility] [address] [id number] [address] [place] [address], [place] [address] 30 Jul, 2013 [facility] [address] [id number] [address] [place] [address], [place] [address] 30 Jul, 2013 [facility] [address] [id number] [address] [place] [address], [place] [address] Jul, [facility] [address] [id number] [address] [place] [address], [place] [address] Jul, [facility] [address] [id number] [address] [place] [address], [place] [address] Jul, [facility] [address] [id number] [address] [place] [address], [place] [address] Jul, [facility] [address] [id number] [address] [place] [address], [place] [address] Jun, [facility] [address] [id number] [address] [place] [address], [place] [address] Jun, [facility] [address] [id number] [address] [place] [address], [place] [address] Jun, [facility] [address] [id number] [address] [place] [address], [place] [address] Jun, [facility] [address] [id number] [address] [place] [address], [place] [address] Jun, [facility] [address] [id number] [address] [place] [address], [place] [address] Jun, [facility] [address] [id number] [address] [place] [address], [place] [address] May, [facility] [address] [id number] [address] [place] [address], [place] [address] May, [facility] [address] [id number] [address] [place] [address], [place] [address] May, [facility] [address] [id number] [address] [place] [address], [place] [address] May, [facility] [address] [id number] [address] [place] [address], [place] [address] May, [facility] [address] [id number] [address] [place] [address], [place] [address] May, [facility] [address] [id number] [address] [place] [address], [place] [address] May, [facility] [address] [id number] [address] [place] [address], [place] [address] May, [facility] [address] [id number] [address] [place] [address], [place] [address] Apr, [facility] [address] [id number] [address] [place] [address], [place] [address] Apr, [facility] [address] [id number] [address] [place] [address], [place] [address] Mar, [facility] [address] [id number] [address] [place] [address], [place] [address] Mar, [facility] [address] [id number] [address] [place] [address], [place] [address] Mar, [facility] [address] [id number] [address] [place] [address], [place] [address] Mar, [facility] [address] [id number] [address] [place] [address], [place] [address] Feb, [facility] [address] [id number] [address] [place] [address], [place] [address] Jan, [facility] [address] [id number] [address] [place] [address], [place] [address] December, [facility] [address] [id number] [address] [place] [address], [place] [address] December, [facility] [address] [id number] [address] [place] [address], [place] [address] December, [facility] [address] [id number] [address] [place] [address], [place] [address] Nov, [facility] [address] [id number] [address] [place] [address], [place] [address] Nov, [facility] [address] [id number] [address] [place] [address], [place] [address] Sep, [facility] [address] [id number] [address] [place] [address], [place] [address] Sep, [facility] [address] [id number] [address] [place] [address], [place] [address] Sep, [facility] [address] [id number] [address] [place] [address], [place] [address] Sep, [facility] [address] [id number] [address] [place] [address], [place] [address] Aug, [facility] [address] [id number] [address] [place] [address], [place] [address] Aug, [facility] [address] [id number] [address] [place] [address], [place] [address] Aug, [facility] [address] [id number] [address] [place] [address], [place] [address] Aug, [facility] [address] [id number] [address] [place] [address], [place] [address] Jul, [facility] [address] [id number] [address] [place] [address], [place] [address] Jul, [facility] [address] [id number] [address] [place] [address], [place] [address] Jul, [facility] [address] [id number] [address] [place] [address], [place] [address] Jul, [facility] [address] [id number] [address] [place] [address], [place] [address] Jun, [facility] [address] [id number] [address] [place] [address], [place] [address] Jun, [facility] [address] [id number] [address] [place] [address], [place] [address] Jun, [facility] [address] [id number] [address] [place] [address], [place] [address] Jun, [facility] [address] [id number] [address] [place] [address], [place] [address] May, [facility] [address] [id number] [address] [place] [address], [place] [address] May, [facility] [address] [id number] [address] [place] [address], [place] [address] May, [facility] [address] [id number] [address] [place] [address], [place] [address] May, [facility] [address] [id number] [address] [place] [address], [place] [address] May, [facility] [address] [id number] [address] [place] [address], [place] [address] 10 Apr, 2012 [facility] [address] [id number] [address] [place] [address], [place] [address] 08 Apr, 2012 [facility] [address] [id number] [address] [place] [address] 07 Apr, 2012 [facility] [address] [id number] [address] [place] [address], [place] [address] 06 Apr, 2012 [facility] [address] [id number] [address] [place] [address], [place] [address] Mar, [facility] [address] [id number] [address] [place] [address], [place] [address] Mar, [facility] [address] [id number] [address] [place] [address], [place] [address] Feb, [facility] [address] [id number] [address] [place] [address], [place] [address] Feb, [facility] [address] [id number] [address] [place] [address], [place] [address] Feb, [facility] [address] [id number] [address] [place] [address], [place] [address] Jan, [facility] [address] [id number] [address] [place] [address], [place] [address] Jan, [facility] [address] [id number] [address] [place] [address], [place] [address] December, [facility] [address] [id number] [address] [place] [address], [place] [address] December, [facility] [address] [id number] [address] [place] [address], [place] [address] Nov, [facility] [address] [id number] [address] [place] [address], [place] [address] Oct, [facility] [address] [id number] [address] [place] [address], [place] [address] Oct, [facility] [address] [id number] [address] [place] [address], [place] [address] Sep, [facility] [address] [id number] [address] [place] [address], [place] [address] Sep, [facility] [address] [id number] [address] [place] [address], [place] [address] Aug, [facility] [address] [id number] [address] [place] [address], [place] [address] Aug, [facility] [address] [id number] [address] [place] [address], [place] [address] Jul, [facility] [address] [id number] [address] [place] [address], [place] [address] Jul, [facility] [address] [id number] [address] [place] [address], [place] [address] 09 Jul, 2011 [facility] [address] [id number] [address] [place] [address], [place] [address] 07 Jun, 2011 [facility] [address] [id number] [address] [place] [address], [place] [address] 07 Jun, 2011 [facility] [address] [id number] [address] [place] [address], [place] [address] 13 May, 2011 [facility] [address] [id number] [address] [place] [address], [place] [address] May, [facility] [address] [id number] [address] [place] [address], [place] [address] May, [facility] [address] [id number] [address] [place] [address], [place] [address] Jul, [facility] [address] [id number] [address] [place] [address], [place] [address] Jul, [facility] [address] [id number] [address] [place] [address], [place] [address] 15 Jun, 2010 [facility] [address] [id number] [address] [place] [address], [place] [address] May, [facility] [address] [id number] [address] [place] [address], [place] [address] May, [facility] [address] [id number] [address] [place] [address], [place] [address] 14 Aug, 2009 [facility] [address] [id number] [address] [place] [address], [place] [address] 17 Jul, 2009 [facility] [address] [id number] [address] [place] [address], [place] [address] Jun, [facility] [address] [id number] [address] [place] [address], [place] [address] 10 Jun, 2009 [facility] [address] [id number] [address] [place] [address] Jun, [facility] [address] [facility] [id number] [place] [address] Jun, [facility] [address] [facility] [id number] [place] [address] Jun, [facility] [address] [facility] [id number] [place] [address] May, [facility] [address] [facility] [id number] [place] [address] Sep, IMMUNIZATIONS No Known Immunizations SOCIAL HISTORY [...]
--- OUTSIDE RECORDS SUMMARY | 2020-01-28 14:26 | XMS REPORT ---
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 Name Role Phone GEORGINA RODRIGUEZ Unavailable PROBLEMS Type Condition ICD9-CM Code ICE85-OC Code Onset Dates Condition S tatus SNOMED Code Problem Osteoarthritis M19.90 Active 22359 5006 Problem Chronic obstructive pulmonary disease, unspecified COPD ty pe J44.9 Active 13393440 Problem Acquired hypothyroidism E03.9 Active 947456991 Problem Cigarette nicotine dependence without complication F17.210 Active 58948342 Problem Diabetes E11.9 Active 168763754 Problem High risk medication use Z79.899 Activ e 533088331 Problem Urinary incontinence, unspecified type R32 Active 315343477 Problem senior living (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.01 Active 954925718 Problem Morbid obesity, unspecified obesity type E66.01 Active 917459970 Problem Other chronic pain G89.29 Active 8 9765311 Problem History of cataract surgery Z98.49 Ac tive 348115728 Problem Type 2 diabetes mellitus wit h hyperglycemia, without long-term current use of insulin E11.65 Active 33596276 Problem Encounter for immunization Z23 Act essie 135554470 Problem Irregular heart beats I49.9 Active 051558717 Problem Other urinary incontinence N39.498 Act essie 963541619 Problem Essential hypertension I10 Active 06801588 Problem Chronic atrial fibrillation I48.2 Ac tive 092260732 ALLERGIES No Information ENCOUNTERS Encounter Location Date Diagnosis [facility] [address] [facility] [id number] [address] [place] [phone] Oct, [facility] [address] [facility] [id number] [address] [place] [address] Oct, senior living (current) use of a nticoagulants Z79.01 [facility] [address] [id number] [address] [place] [address] Oct, 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 Z79.01 [facility] [address] [id number] [address] [place] [address] Sep, [facility] [address] [id number] [address] [place] [address] Aug, Osteoarthritis M19.90 [facility] [address] [id number] [address] [place] [address] Aug, Diabetes E11.9 ; senior living ( 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.01 ; Tobacco abuse Z72.0 ; Low back pain M54.5 and Chronic atrial fibrillation I48.2 [place] [address] [id number] [address] [place] [address] Aug, Diabetes E11.9 [facility] [address] [facility] [id number] [address] [place] [address] Aug, [facility] [address] [id number] [address] [place] [phone] 08 Aug, 2019 Acute non-recurrent pansinus itis J01.40 and Non- recurrent acute suppurative otitis media of left ear without spontaneous rupture of tympanic membrane H66.002 [place] [address] [id number] [address] [place] [address] Aug, [facility] [address] [id number] [address] [place] [address] Aug, 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 Z79.01 [facility] [address] [id number] [address] [place] [address] Aug, 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 Z79.01 [facility] [address] [id number] [address] [place] [address] Jul, Osteoarthritis M19.90 [facility] [address] [facility] [id number] [address] [place] [address] Jul, Osteoarthritis M19.90 [facility] [address] [id number] [address] [place] [address] Jun, [facility] [address] [id number] [address] [place] [address] Jun, Chronic atrial fibrillation I48.2 [facility] [address] [facility] [id number] [address] [place] [address] Jun, Osteoarthritis M19.90 [facility] [address] [id number] [address] [place] [address] Jun, Chronic atrial fibrillation I48.2 [facility] [address] [id number] [address] [place] [address] May, Osteoarthritis M19.90 [facility] [address] [facility] [id number] [address] [place] [address] May, Chronic atrial fibrillation I48.2 [facility] [address] [id number] [address] [place] [address] Apr, Osteoarthritis M19.90 [facility] [address] [facility] [id number] [address] [place] [address] Mar, Chronic atrial fibrillation I48.2 [facility] [address] [facility] [id number] [address] [place] [address] Mar, Chronic atrial fibrillation I48.2 [facility] [address] [facility] [id number] [address] [place] [address] Mar, Osteoarthritis M19.90 [facility] [address] [facility] [id number] [address] [place] [address] Mar, Chronic atrial fibrillation I48.2 [facility] [address] [facility] [id number] [address] [place] [address] Mar, Type 2 diabetes mellitus wit h hyperglycemia, without long-term current use of insulin E11.65 ; Chronic atrial fibrillation I48.2 and Morbid obesity E66.01 [facility] [address] [id number] [address] [place] [address] Feb, Osteoarthritis M19.90 [facility] [address] [id number] [address] [place] [address] Feb, Chronic atrial fibrillation I48.2 [facility] [address] [id number] [address] [place] [address] Feb, Hyperglycemia R73.9 ; Diabet es E11.9 ; Morbid obesity E66.01 ; Acquired hypothyroidism E03.9 ; Osteoarthritis M19.90 and High risk medication use Z79.899 [facility] [address] [id number] [address] [place] [address] Feb, Chronic atrial fibrillation I48.2 [facility] [address] [id number] [address] [place] [address] Jan, Osteoarthritis M19.90 [facility] [address] [id number] [address] [place] [address] Jan, Chronic atrial fibrillation I48.2 [facility] [address] [id number] [address] [place] [address] Jan, Chronic atrial fibrillation I48.2 [facility] [address] [id number] [address] [place] [address] Jan, Chronic atrial fibrillation I48.2 [facility] [address] [facility] [id number] [address] [place] [address] Jan, senior living (current) use of a nticoagulants Z79.01 [facility] [address] [id number] [address] [place] [address] December, [facility] [address] [id number] [address] [place] [address] December, [facility] [address] [facility] [id number] [address] [place] [address] December, Osteoarthritis M19.90 [facility] [address] [id number] [address] [place] [address] Nov, [facility] [address] [id number] [address] [place] [address] Nov, Osteoarthritis M19.90 [facility] [address] [id number] [address] [place] [address] Oct, Osteoarthritis M19.90 [facility] [address] [facility] [id number] [address] [place] [address] Sep, Osteoarthritis M19.90 [facility] [address] [facility] [id number] [address] [place] [address] Sep, senior living (current) use of a nticoagulants Z79.01 ; BMI 45.0-49.9, adult Z68.42 ; Diabetes E11.9 ; Chronic atrial fibrillation I48.2 and Chronic obstructive pulmonary disease, unspecified COPD type J44.9 [facility] [address] [facility] [id number] [address] [place] [address] Sep, Diabetes E11.9 ; senior living ( 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.01 ; Chronic atrial fibrillation I48.2 ; Chronic obstructive pulmonary disease, unspecified COPD type J44.9 and BMI 45.0-49.9, adult Z68.42 [facility] [address] [facility] [id number] [address] [place] [address] Aug, Osteoarthritis M19.90 [facility] [address] [facility] [id number] [address] [place] [address] Aug, [facility] [address] [facility] [id number] [address] [place] [address] Aug, senior living (current) use of a nticoagulants Z79.01 ; BMI 45.0-49.9, adult Z68.42 ; Diabetes E11.9 and Chronic atrial fibrillation I48.2 [facility] [address] [facility] [id number] [address] [place] [address] Aug, [facility] [address] [id number] [address] [place] [address] Jul, Osteoarthritis M19.90 [facility] [address] [id number] [address] [place] [address] Jun, Osteoarthritis M19.90 [facility] [address] [facility] [id number] [address] [place] [address] Jun, senior living (current) use of a nticoagulants Z79.01 [facility] [address] [facility] [id number] [address] [place] [address] Jun, Chronic atrial fibrillation I48.2 and 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.01 [place] [address] [facility] [id number] [address] [place] [address] Jun, Osteoarthritis M19.90 [place] [address] [place] [id number] [place] [address] May, Encounter for immunization Z 23 [facility] [address] [facility] [id number] [address] [place] [address] May, 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 Z79.01 [facility] [address] [facility] [id number] [address] [place] [address] May, Osteoarthritis M19.90 [place] [address] [place] [id number] [address] [place] [address] May, [facility] [address] [facility] [id number] [address] [place] [address] May, Diabetes E11.9 ; senior living ( 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.01 ; Chronic atrial fibrillation I48.2 ; BMI 45.0-49.9, adult Z68.42 ; Osteoarthritis M19.90 ; Low back pain M54.5 and Other chronic pain G89.29 [facility] [address] [facility] [id number] [address] [place] [address] Apr, Chronic atrial fibrillation I48.2 [place] [address] [facility] [id number] [address] [place] [address] 13 Apr, 2018 senior living (current) use of a nticoagulants Z79.01 [facility] [address] [id number] [address] [place] [address] 07 Apr, 2018 Osteoarthritis M19.90 [facility] [address] [id number] [address] [place] [address] 04 Apr, 2018 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 Z79.01 and Chronic atrial fibrillation I48.2 [facility] [address] [id number] [address] [place] [address] Mar, Osteoarthritis M19.90 [facility] [address] [id number] [address] [place] [address] Feb, Osteoarthritis M19.90 [facility] [address] [facility] [id number] [address] [place] [address] Jan, Osteoarthritis M19.90 [facility] [address] [id number] [address] [place] [address] December, [facility] [address] [id number] [address] [place] [address] December, Osteoarthritis M19.90 [facility] [address] [facility] [id number] [address] [place] [address] Nov, Diabetes E11.9 ; senior living ( 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.01 ; Acquired hypothyroidism E03.9 ; Cigarette nicotine dependence without complication F17.210 ; Osteoarthritis M19.90 ; BMI 45.0-49.9, adult Z68.42 and Chronic atrial fibrillation I48.2 [facility] [address] [id number] [address] [place] [address] Nov, Osteoarthritis M19.90 [facility] [address] [id number] [address] [place] [address] Oct, Osteoarthritis M19.90 [facility] [address] [facility] [id number] [address] [place] [address] Oct, 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 Z79.01 [facility] [address] [facility] [id number] [address] [place] [address] Sep, Osteoarthritis M19.90 [facility] [address] [facility] [id number] [address] [place] [address] Sep, [facility] [address] [place] [id number] [address] [place] [address] Aug, Osteoarthritis M19.90 [facility] [address] [facility] [id number] [address] [place] [address] Jul, Osteoarthritis M19.90 [facility] [address] [address] Jul, Osteoarthritis M19.90 [facility] [address] [address] Jun, Diabetes E11.9 ; Encounter f or immunization Z23 ; 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.01 ; Chronic atrial fibrillation I48.2 ; Osteoarthritis M19.90 ; Tobacco abuse Z72.0 and Bug bite, initial encounter W57.XXXA [facility] [address] [phone] May, Osteoarthritis M19.90 [facility] [address] [address] Apr, Osteoarthritis M19.90 [facility] [address] [place] [id number] [address] [place] [address] Mar, Chronic atrial fibrillation I48.2 [facility] [address] [place] [id number] [place] [address] Mar, [facility] [address] [place] [id number] [address] [place] [address] Mar, Osteoarthritis M19.90 [facility] [address] [place] [id number] [address] [place] [address] Mar, senior living (current) use of a nticoagulants Z79.01 and Chronic atrial fibrillation I48.2 [facility] [address] [id number] [address] [place] [address] Mar, Chronic atrial fibrillation I48.2 and 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.01 [facility] [address] [id number] [address] [place] [address] Mar, 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 Z79.01 [place] [address] [id number] [address] [place] [address] Mar, 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 Z79.01 [place] [address] [id number] [address] [place] [address] Mar, Osteoarthritis M19.90 [place] [address] [id number] [address] [place] [address] Feb, Encounter for screening mamm ogram for malignant neoplasm of breast Z12.31 [place] [address] [id number] [address] [place] [address] Feb, Osteoarthritis M19.90 [place] [address] [id number] [address] [place] [address] Jan, [place] [address] [id number] [address] [place] [address] Jan, senior living (current) use of a nticoagulants Z79.01 ; Diabetes E11.9 ; Osteoarthritis M19.90 and Breast cancer screening Z12.39 [place] [address] [id number] [address] [place] [address] Jan, Osteoarthritis M19.90 [place] [address] [id number] [address] [place] [address] Jan, Osteoarthritis M19.90 [facility] [address] [facility] [id number] [address] [place] [address] Jan, [facility] [address] [facility] [id number] [address] [place] [address] December, Osteoarthritis M19.90 [facility] [address] [facility] [id number] [address] [place] [address] December, Osteoarthritis M19.90 [facility] [address] [id number] [id number] Nov, [facility] [address] [facility] [id number] [address] [place] [address] Nov, [facility] [address] [facility] [id number] [address] [place] [address] Nov, [facility] [address] [facility] [id number] [address] [place] [address] Nov, Diabetes E11.9 [place] [address] [facility] [id number] [address] [place] [address] Nov, [facility] [address] [facility] [id number] [address] [place] [address] Oct, Osteoarthritis M19.90 [facility] [address] [facility] [id number] [address] [place] [address] Oct, Osteoarthritis M19.90 ; 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.01 ; Diabetes E11.9 ; Cigarette nicotine dependence without complication F17.210 and Chronic atrial fibrillation I48.2 [place] [address] [facility] [id number] [address] [place] [address] Aug, [facility] [address] [facility] [id number] [address] [place] [address] Aug, senior living (current) use of a nticoagulants Z79.01 [facility] [address] [facility] [id number] [address] [place] [address] Aug, [facility] [address] [id number] [id number] Aug, [place] [address] [place] [id number] [address] [place] [address] Aug, [facility] [address] [address] Aug, [facility] [id number] [place] [id number] Aug, [employer] [address] [place] [id number] Aug Osteoarthritis M19.90 and Essential hypertension I10 [facility] [address] [address] Aug, Other urinary incontinence N 39.498 [place] [address] [address] Jul, Osteoarthritis M19.90 [place] [address] [address] Jun, Diabetes E11.9 ; Encounter f or immunization Z23 ; Osteoarthritis M19.90 ; senior living (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.01 ; Cigarette nicotine dependence without complication F17.210 ; Acquired hypothyroidism E03.9 ; Morbid obesity, unspecified obesity type E66.01 and Irregular heart beats I49.9 [facility] [id number] [place] [address] Jun, Osteoarthritis M19.90 [place] [address] [address] May, Osteoarthritis M19.90 [facility] [address] [address] May, Urinary incontinence, unspec ified type R32 [place] [address] [address] May, [facility] [address] [place] [id number] [address] [place] [address] Apr, Osteoarthritis M19.90 [facility] [address] [address] Apr, 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 Z79.01 [facility] [address] [facility] [id number] [address] [place] [address] Apr, [facility] [address] [facility] [id number] [address] [place] [address] Apr, Osteoarthritis M19.90 [facility] [address] [facility] [id number] [address] [place] [address] Mar, Diabetes E11.9 ; Hypothyroid ism, unspecified type E03.9 ; Osteoarthritis M19.90 ; High risk medication use Z79.899 ; Cigarette nicotine dependence without complication F17.210 and Morbid obesity, unspecified obesity type E66.01 [place] [address] [facility] [id number] [address] [place] [address] Mar, Osteoarthritis M19.90 [place] [address] [facility] [id number] [address] [place] [address] December, Osteoarthritis M19.90 [place] [address] [facility] [id number] [address] [place] [address] December, [place] [address] [facility] [id number] [address] [place] [address] Oct, [place] [address] [facility] [id number] [address] [place] [address] Oct, [place] [address] [facility] [id number] [address] [place] [address] Aug, [facility] [address] [facility] [id number] [address] [place] [address] Jul, [place] [address] [facility] [id number] [address] [place] [address] Jul, [place] [address] [facility] [id number] [address] [place] [address] Jul, Diabetes E11.9 ; Encounter f or immunization Z23 ; Abnormal mammogram R92.8 ; Acquired hypothyroidism E03.9 ; High risk medication use Z79.899 ; Osteoarthritis M19.90 and Cigarette nicotine dependence without complication F17.210 [facility] [address] [id number] [address] [place] [address] Jul, [facility] [address] [facility] [id number] [address] [place] [address] Jun, Abnormal mammogram R92.8 [facility] [address] [id number] [address] [place] [phone] Apr, [facility] [address] [id number] [address] [place] [phone] Apr, [facility] [address] [id number] [address] [place] [phone] Mar, [facility] [address] [id number] [address] [place] [phone] Mar, Current use of alodize machine helper ant 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 V58.61 [facility] [address] [id number] [address] [place] [phone] Feb, [facility] [address] [id number] [address] [place] [phone] Jan, [facility] [address] [facility] [id number] [address] [place] [phone] December, [facility] [address] [id number] [address] [place] [phone] Nov, [facility] [address] [id number] [address] [place] [phone] Nov, [facility] [address] [id number] [address] [place] [phone] Oct, [facility] [address] [id number] [address] [place] [id number] Oct, [facility] [address] [id number] [address] [place] [id number] 17 Oct, 2014 [facility] [address] [id number] [address] [place] [address], [place] [id number] 17 Oct, 2014 [facility] [address] [id number] [address] [place] [address], [place] [id number] Oct, [facility] [address] [id number] [address] [place] [address], [place] [phone] Oct, [facility] [address] [id number] [address] [place] [address], [place] [id number] Sep, [facility] [address] [id number] [address] [place] [address], [place] [id number] Sep, [facility] [address] [id number] [address] [place] [address], [place] [id number] Sep, [facility] [address] [id number] [address] [place] [address], [place] [id number] Sep, [facility] [address] [id number] [address] [place] [address], [place] [phone] Aug, [facility] [address] [id number] [address] [place] [address], [place] [address] Aug, [facility] [address] [id number] [address] [place] [address], [place] [address] Aug, [facility] [address] [id number] [address] [place] [address], [place] [address] Aug, [facility] [address] [id number] [address] [place] [address], [place] [address] Aug, [facility] [address] [id number] [address] [place] [address], [place] [address] Aug, [facility] [address] [id number] [address] [place] [address], [place] [address] Jul, [facility] [address] [id number] [address] [place] [address], [place] [address] Jul, [facility] [address] [id number] [address] [place] [address], [place] [address] Jul, [facility] [address] [id number] [address] [place] [address], [place] [address] Jul, [facility] [address] [id number] [address] [place] [address], [place] [address] Jul, [facility] [address] [id number] [address] [place] [address], [place] [address] Jul, [facility] [address] [id number] [address] [place] [address], [place] [address] Jun, [facility] [address] [id number] [address] [place] [address], [place] [address] Jun, [facility] [address] [id number] [address] [place] [address], [place] [address] Jun, [facility] [address] [id number] [address] [place] [address], [place] [address] Jun, [facility] [address] [id number] [address] [place] [address], [place] [address] Jun, [facility] [address] [id number] [address] [place] [address], [place] [address] Jun, [facility] [address] [id number] [address] [place] [address], [place] [address] Jun, [facility] [address] [id number] [address] [place] [address], [place] [address] Jun, [facility] [address] [id number] [address] [place] [address], [place] [address] Jun, [facility] [address] [id number] [address] [place] [address], [place] [address] May, [facility] [address] [id number] [address] [place] [address], [place] [address] May, [facility] [address] [id number] [address] [place] [address], [place] [address] Apr, [facility] [address] [id number] [address] [place] [address], [place] [address] Apr, 2013 [facility] [address] [id number] [address] [place] [address], [place] [address] Apr, 2013 [facility] [address] [id number] [address] [place] [address], [place] [address] Apr, 2013 [facility] [address] [id number] [address] [place] [address], [place] [address] Apr, 2013 [facility] [address] [id number] [address] [place] [address], [place] [address] Apr, 2013 [facility] [address] [id number] [address] [place] [address], [place] [address] Apr, 2013 [facility] [address] [id number] [address] [place] [address], [place] [address] Apr, 2013 [facility] [address] [id number] [address] [place] [address], [place] [address] Apr, [facility] [address] [id number] [address] [place] [address], [place] [address] Apr, [facility] [address] [id number] [address] [place] [address], [place] [address] Mar, [facility] [address] [id number] [address] [place] [address], [place] [address] Mar, [facility] [address] [id number] [address] [place] [address], [place] [address] Mar, [facility] [address] [id number] [address] [place] [address], [place] [address] Mar, [facility] [address] [id number] [address] [place] [address], [place] [address] Mar, [facility] [address] [id number] [address] [place] [address], [place] [address] Mar, [facility] [address] [id number] [address] [place] [address], [place] [address] Feb, [facility] [address] [id number] [address] [place] [address], [place] [address] Feb, [facility] [address] [id number] [address] [place] [address], [place] [address] Feb, [facility] [address] [id number] [address] [place] [address], [place] [address] Feb, [facility] [address] [id number] [address] [place] [address], [place] [address] Jan, [facility] [address] [id number] [address] [place] [address], [place] [address] Jan, [facility] [address] [id number] [address] [place] [address], [place] [address] Jan, [facility] [address] [id number] [address] [place] [address], [place] [address] Jan, [facility] [address] [id number] [address] [place] [address], [place] [address] Oct, [facility] [address] [id number] [address] [place] [address], [place] [address] Oct, [facility] [address] [id number] [address] [place] [address], [place] [address] Sep, [facility] [address] [id number] [address] [place] [address], [place] [address] Sep, [facility] [address] [id number] [address] [place] [address], [place] [address] Sep, [facility] [address] [id number] [address] [place] [address], [place] [address] Sep, [facility] [address] [id number] [address] [place] [address], [place] [address] Aug, [facility] [address] [id number] [address] [place] [address], [place] [address] Aug, [facility] [address] [id number] [address] [place] [address], [place] [address] Aug, [facility] [address] [id number] [address] [place] [address], [place] [address] Aug, [facility] [address] [id number] [address] [place] [address], [place] [address] 30 Jul, 2013 [facility] [address] [id number] [address] [place] [address], [place] [address] 30 Jul, 2013 [facility] [address] [id number] [address] [place] [address], [place] [address] Jul, [facility] [address] [id number] [address] [place] [address], [place] [address] Jul, [facility] [address] [id number] [address] [place] [address], [place] [address] Jul, [facility] [address] [id number] [address] [place] [address], [place] [address] Jul, [facility] [address] [id number] [address] [place] [address], [place] [address] Jun, [facility] [address] [id number] [address] [place] [address], [place] [address] Jun, [facility] [address] [id number] [address] [place] [address], [place] [address] Jun, [facility] [address] [id number] [address] [place] [address], [place] [address] Jun, [facility] [address] [id number] [address] [place] [address], [place] [address] Jun, [facility] [address] [id number] [address] [place] [address], [place] [address] Jun, [facility] [address] [id number] [address] [place] [address], [place] [address] May, [facility] [address] [id number] [address] [place] [address], [place] [address] May, [facility] [address] [id number] [address] [place] [address], [place] [address] May, [facility] [address] [id number] [address] [place] [address], [place] [address] May, [facility] [address] [id number] [address] [place] [address], [place] [address] May, [facility] [address] [id number] [address] [place] [address], [place] [address] May, [facility] [address] [id number] [address] [place] [address], [place] [address] May, [facility] [address] [id number] [address] [place] [address], [place] [address] May, [facility] [address] [id number] [address] [place] [address], [place] [address] Apr, [facility] [address] [id number] [address] [place] [address], [place] [address] Apr, [facility] [address] [id number] [address] [place] [address], [place] [address] Mar, [facility] [address] [id number] [address] [place] [address], [place] [address] Mar, [facility] [address] [id number] [address] [place] [address], [place] [address] Mar, [facility] [address] [id number] [address] [place] [address], [place] [address] Mar, [facility] [address] [id number] [address] [place] [address], [place] [address] Feb, [facility] [address] [id number] [address] [place] [address], [place] [address] Jan, [facility] [address] [id number] [address] [place] [address], [place] [address] December, [facility] [address] [id number] [address] [place] [address], [place] [address] December, [facility] [address] [id number] [address] [place] [address], [place] [address] December, [facility] [address] [id number] [address] [place] [address], [place] [address] Nov, [facility] [address] [id number] [address] [place] [address], [place] [address] Nov, [facility] [address] [id number] [address] [place] [address], [place] [address] Sep, [facility] [address] [id number] [address] [place] [address], [place] [address] Sep, [facility] [address] [id number] [address] [place] [address], [place] [address] Sep, [facility] [address] [id number] [address] [place] [address], [place] [address] Sep, [facility] [address] [id number] [address] [place] [address], [place] [address] Aug, [facility] [address] [id number] [address] [place] [address], [place] [address] Aug, [facility] [address] [id number] [address] [place] [address], [place] [address] Aug, [facility] [address] [id number] [address] [place] [address], [place] [address] Aug, [facility] [address] [id number] [address] [place] [address], [place] [address] Jul, [facility] [address] [id number] [address] [place] [address], [place] [address] Jul, [facility] [address] [id number] [address] [place] [address], [place] [address] Jul, [facility] [address] [id number] [address] [place] [address], [place] [address] Jul, [facility] [address] [id number] [address] [place] [address], [place] [address] Jun, [facility] [address] [id number] [address] [place] [address], [place] [address] Jun, [facility] [address] [id number] [address] [place] [address], [place] [address] Jun, [facility] [address] [id number] [address] [place] [address], [place] [address] Jun, [facility] [address] [id number] [address] [place] [address], [place] [address] May, [facility] [address] [id number] [address] [place] [address], [place] [address] May, [facility] [address] [id number] [address] [place] [address], [place] [address] May, [facility] [address] [id number] [address] [place] [address], [place] [address] May, [facility] [address] [id number] [address] [place] [address], [place] [address] May, [facility] [address] [id number] [address] [place] [address], [place] [address] 10 Apr, 2012 [facility] [address] [id number] [address] [place] [address], [place] [address] 08 Apr, 2012 [facility] [address] [id number] [address] [place] [address] 07 Apr, 2012 [facility] [address] [id number] [address] [place] [address], [place] [address] 06 Apr, 2012 [facility] [address] [id number] [address] [place] [address], [place] [address] Mar, [facility] [address] [id number] [address] [place] [address], [place] [address] Mar, [facility] [address] [id number] [address] [place] [address], [place] [address] Feb, [facility] [address] [id number] [address] [place] [address], [place] [address] Feb, [facility] [address] [id number] [address] [place] [address], [place] [address] Feb, [facility] [address] [id number] [address] [place] [address], [place] [address] Jan, [facility] [address] [id number] [address] [place] [address], [place] [address] Jan, [facility] [address] [id number] [address] [place] [address], [place] [address] December, [facility] [address] [id number] [address] [place] [address], [place] [address] December, [facility] [address] [id number] [address] [place] [address], [place] [address] Nov, [facility] [address] [id number] [address] [place] [address], [place] [address] Oct, [facility] [address] [id number] [address] [place] [address], [place] [address] Oct, [facility] [address] [id number] [address] [place] [address], [place] [address] Sep, [facility] [address] [id number] [address] [place] [address], [place] [address] Sep, [facility] [address] [id number] [address] [place] [address], [place] [address] Aug, [facility] [address] [id number] [address] [place] [address], [place] [address] Aug, [facility] [address] [id number] [address] [place] [address], [place] [address] Jul, [facility] [address] [id number] [address] [place] [address], [place] [address] Jul, [facility] [address] [id number] [address] [place] [address], [place] [address] 09 Jul, 2011 [facility] [address] [id number] [address] [place] [address], [place] [address] 07 Jun, 2011 [facility] [address] [id number] [address] [place] [address], [place] [address] 07 Jun, 2011 [facility] [address] [id number] [address] [place] [address], [place] [address] 13 May, 2011 [facility] [address] [id number] [address] [place] [address], [place] [address] May, [facility] [address] [id number] [address] [place] [address], [place] [address] May, [facility] [address] [id number] [address] [place] [address], [place] [address] Jul, [facility] [address] [id number] [address] [place] [address], [place] [address] Jul, [facility] [address] [id number] [address] [place] [address], [place] [address] 15 Jun, 2010 [facility] [address] [id number] [address] [place] [address], [place] [address] May, [facility] [address] [id number] [address] [place] [address], [place] [address] May, [facility] [address] [id number] [address] [place] [address], [place] [address] 14 Aug, 2009 [facility] [address] [id number] [address] [place] [address], [place] [address] 17 Jul, 2009 [facility] [address] [id number] [address] [place] [address], [place] [address] Jun, [facility] [address] [id number] [address] [place] [address], [place] [address] 10 Jun, 2009 [facility] [address] [id number] [address] [place] [address] Jun, [facility] [address] [facility] [id number] [address] [place] [address] Jun, [facility] [address] [facility] [id number] [address] [place] [address] Jun, [facility] [address] [facility] [id number] [address] [place] [address] May, [facility] [address] [facility] [id number] [address] [place] [address] Sep, IMMUNIZATIONS No Known Immunizations SOCIAL HISTORY [...]
--- OUTSIDE RECORDS SUMMARY | 2020-01-28 14:27 | XMS REPORT ---
Author Author Katarina RODRIGUEZ Organization [facility] Address [address] [place] [address] Care Team Providers Care Mold Setter Name Role Phone GEORGINA RODRIGUEZ Unavailable PROBLEMS Type Condition ICD9-CM Code LMZ25-AR Code Onset Dates Condition S tatus SNOMED Code Problem Osteoarthritis M19.90 Active 80040 5006 Problem Chronic obstructive pulmonary disease, unspecified COPD ty pe J44.9 Active 58262360 Problem Acquired hypothyroidism E03.9 Active 548903252 Problem Cigarette nicotine dependence without complication F17.210 Active 89329972 Problem Diabetes E11.9 Active 344278780 Problem High risk medication use Z79.899 Activ e 838542054 Problem Urinary incontinence, unspecified type R32 Active 233267673 Problem halfway (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.01 Active 805874283 Problem Morbid obesity, unspecified obesity type E66.01 Active 070042851 Problem Other chronic pain G89.29 Active 8 8030230 Problem History of cataract surgery Z98.49 Ac tive 769986698 Problem Type 2 diabetes mellitus wit h hyperglycemia, without long-term current use of insulin E11.65 Active 23337407 Problem Encounter for immunization Z23 Act essie 421608724 Problem Irregular heart beats I49.9 Active 563415309 Problem Other urinary incontinence N39.498 Act essie 643944583 Problem Essential hypertension I10 Active 86802201 Problem Chronic atrial fibrillation I48.2 Ac tive 026461674 ALLERGIES No Information ENCOUNTERS Encounter Location Date Diagnosis [facility] [address] [facility] [id number] [address] [place] [address] 05 Oct, 2019 halfway (current) use of a nticoagulants Z79.01 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 [address] [id number] [address] [place] [address] Sep, [facility] [address] [id number] [address] [place] [address] Aug, Osteoarthritis M19.90 [facility] [address] [id number] [address] [place] [address] Aug, Diabetes E11.9 ; halfway ( 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.01 ; Tobacco abuse Z72.0 ; Low back pain M54.5 and Chronic atrial fibrillation I48.2 [facility] [address] [id number] [address] [place] [address] Aug, Diabetes E11.9 [facility] [address] [id number] [address] [place] [address] Aug, [facility] [address] [id number] [address] [place] [address] Aug, Acute non-recurrent pansinus itis J01.40 and Non- recurrent acute suppurative otitis media of left ear without spontaneous rupture of tympanic membrane H66.002 [place] [address] [id number] [address] [place] [address] Aug, [facility] [address] [facility] [id number] [address] [place] [address] Aug, halfway (current) use of a nticoagulants Z79.01 [facility] [address] [id number] [address] [place] [address] Aug, halfway (current) use of a nticoagulants Z79.01 [place] [address] [id number] [address] [place] [address] Jul, Osteoarthritis M19.90 [facility] [address] [id number] [address] [place] [address] Jul, Osteoarthritis M19.90 [facility] [address] [facility] [id number] [address] [place] [address] Jun, [facility] [address] [id number] [address] [place] [address] Jun, Chronic atrial fibrillation I48.2 [facility] [address] [id number] [address] [place] [address] 04 Jun, [address] [facility] [address] [id number] [address] [place] [address] Jun, Chronic atrial fibrillation I48.2 [facility] [address] [id number] [address] [place] [address] May, Osteoarthritis M19.90 [facility] [address] [id number] [address] [place] [address] May, Chronic atrial fibrillation I48.2 [facility] [address] [id number] [address] [place] [address] Apr, Osteoarthritis M19.90 [facility] [address] [id number] [address] [place] [address] Mar, Chronic atrial fibrillation I48.2 [facility] [address] [id number] [address] [place] [address] Mar, Chronic atrial fibrillation I48.2 [facility] [address] [id number] [address] [place] [address] Mar, Osteoarthritis M19.90 [facility] [address] [id number] [address] [place] [address] Mar, Chronic atrial fibrillation I48.2 [facility] [address] [id number] [address] [place] [address] Mar, Type 2 diabetes mellitus wit h hyperglycemia, without long-term current use of insulin E11.65 ; Chronic atrial fibrillation I48.2 and Morbid obesity E66.01 [facility] [address] [id number] [address] [place] [address] Feb, Osteoarthritis M19.90 [facility] [address] [id number] [address] [place] [address] Feb, Chronic atrial fibrillation I48.2 [facility] [address] [id number] [address] [place] [address] Feb, Hyperglycemia R73.9 ; Diabet es E11.9 ; Morbid obesity E66.01 ; Acquired hypothyroidism E03.9 ; Osteoarthritis M19.90 and High risk medication use Z79.899 [facility] [address] [id number] [address] [place] [address] Feb, Chronic atrial fibrillation I48.2 [facility] [address] [id number] [address] [place] [address] Jan, Osteoarthritis M19.90 [facility] [address] [facility] [id number] [address] [place] [address] Jan, Chronic atrial fibrillation I48.2 [facility] [address] [id number] [address] [place] [address] Jan, Chronic atrial fibrillation I48.2 [facility] [address] [id number] [address] [place] [address] Jan, Chronic atrial fibrillation I48.2 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 [address] [id number] [address] [place] [address] December, [facility] [address] [id number] [place] [address] December, [facility] [address] [facility] [id number] [address] [place] [address] December, Osteoarthritis M19.90 [facility] [address] [facility] [id number] [address] [place] [address] Nov, [facility] [address] [facility] [id number] [address] [place] [address] Nov, Osteoarthritis M19.90 [facility] [address] [facility] [id number] [address] [place] [address] Oct, Osteoarthritis M19.90 [facility] [address] [facility] [id number] [address] [place] [address] Sep, Osteoarthritis M19.90 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 [address] [place] [id number] [address] [place] [address] Sep, Diabetes E11.9 ; halfway ( 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.01 ; Chronic atrial fibrillation I48.2 ; Chronic obstructive pulmonary disease, unspecified COPD type J44.9 and BMI 45.0-49.9, adult Z68.42 [facility] [address] [facility] [id number] [address] [place] [address] Aug, Osteoarthritis M19.90 [facility] [address] [place] [id number] [address] [place] [address] Aug, [facility] [address] [place] [id number] [address] [place] [address] Aug, halfway (current) use of a nticoagulants Z79.01 ; BMI 45.0-49.9, adult Z68.42 ; Diabetes E11.9 and Chronic atrial fibrillation I48.2 [facility] [address] [facility] [id number] [address] [place] [address] Aug, [facility] [address] [facility] [id number] [address] [place] [address] Jul, Osteoarthritis M19.90 [facility] [id number] [place] [address] Jun, Osteoarthritis M19.90 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 [address] [id number] [address] [place] [address] Jun, Osteoarthritis M19.90 [facility] [address] [facility] [id number] [address] [place] [address] May, Encounter for immunization Z 23 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 [address] [id number] [address] [place] [address] May, Osteoarthritis M19.90 [facility] [address] [id number] [address] [place] [address] May, [facility] [address] [facility] [id number] [address] [place] [address] May, Diabetes E11.9 ; halfway ( 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.01 ; Chronic atrial fibrillation I48.2 ; BMI 45.0-49.9, adult Z68.42 ; Osteoarthritis M19.90 ; Low back pain M54.5 and Other chronic pain G89.29 [facility] [address] [id number] [address] [place] [address] Apr, Chronic atrial fibrillation I48.2 [facility] [address] [facility] [id number] [address] [place] [address] Apr, halfway (current) use of a nticoagulants Z79.01 [facility] [address] [id number] [address] [place] [address] 07 Apr, [address] 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 [address] [facility] [id number] [address] [place] [address] Mar, Osteoarthritis M19.90 [facility] [address] [id number] [address] [place] [address] Feb, Osteoarthritis M19.90 [facility] [address] [facility] [id number] [address] [place] [address] Jan, Osteoarthritis M19.90 [facility] [address] [facility] [id number] [address] [place] [address] December, [facility] [address] [facility] [id number] [address] [place] [address] December, Osteoarthritis M19.90 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 [address] [facility] [id number] [address] [place] [address] Nov, Osteoarthritis M19.90 [facility] [address] [facility] [id number] [address] [place] [address] Oct, Osteoarthritis M19.90 [facility] [address] [facility] [id number] [address] [place] [address] Oct, halfway (current) use of a nticoagulants Z79.01 [facility] [address] [facility] [id number] [address] [place] [address] Sep, Osteoarthritis M19.90 [facility] [address] [facility] [id number] [address] [place] [address] Sep, [facility] [address] [facility] [id number] [address] [place] [address] Aug, Osteoarthritis M19.90 [facility] [address] [facility] [id number] [address] [place] [address] Jul, Osteoarthritis M19.90 [facility] [address] [facility] [id number] [address] [place] [address] Jul, Osteoarthritis M19.90 [facility] [address] [place] [id number] [address] [place] [address] Jun, Diabetes E11.9 ; Encounter f or immunization Z23 ; halfway (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.01 ; Chronic atrial fibrillation I48.2 ; Osteoarthritis M19.90 ; Tobacco abuse Z72.0 and Bug bite, initial encounter W57.XXXA [facility] [address] [facility] [id number] [address] [place] [address] May, Osteoarthritis M19.90 [facility] [address] [facility] [id number] [address] [place] [address] Apr, Osteoarthritis M19.90 [facility] [address] [facility] [id number] [address] [place] [address] Mar, Chronic atrial fibrillation I48.2 [facility] [address] [facility] [id number] [address] [place] [address] Mar, [facility] [address] [facility] [id number] [address] [place] [address] Mar, Osteoarthritis M19.90 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 [address] [id number] [address] [place] [address] Mar, Osteoarthritis M19.90 [facility] [address] [facility] [id number] [address] [place] [address] Feb, Encounter for screening mamm ogram for malignant neoplasm of breast Z12.31 [facility] [address] [id number] [address] [place] [address] Feb, Osteoarthritis M19.90 [facility] [address] [id number] [address] [place] [address] Jan, [facility] [address] [id number] [address] [place] [address] Jan, halfway (current) use of a nticoagulants Z79.01 ; Diabetes E11.9 ; Osteoarthritis M19.90 and Breast cancer screening Z12.39 [facility] [address] [id number] [address] [place] [address] Jan, Osteoarthritis M19.90 [facility] [address] [id number] [address] [place] [address] Jan, Osteoarthritis M19.90 [facility] [address] [facility] [id number] [address] [place] [address] Jan, [facility] [address] [facility] [id number] [address] [place] [address] December, Osteoarthritis M19.90 [facility] [address] [id number] [address] [place] [address] December, Osteoarthritis M19.90 [facility] [address] [id number] [place] [id number] Nov, [facility] [address] [id number] [address] [place] [address] Nov, [facility] [address] [id number] [address] [place] [address] Nov, [facility] [address] [id number] [address] [place] [address] Nov, Diabetes E11.9 [facility] [address] [id number] [address] [place] [address] Nov, [facility] [address] [id number] [address] [place] [address] Oct, Osteoarthritis M19.90 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 [address] [id number] [address] [place] [address] Aug, 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 [address] [id number] [address] [place] [address] Aug, [facility] [address] [id number] [place] [id number] Aug, [facility] [address] [id number] [address] [place] [phone] Aug, [facility] [address] [facility] [id number] [address] [place] [address] Aug, [facility] [address] [place] [id number] [place] [id number] Aug, [facility] [address] [place] [id number] Aug Osteoarthritis M19.90 and Essential hypertension I10 [facility] [address] [place] [id number] [address] [place] [address] Aug, Other urinary incontinence N 39.498 [facility] [address] [facility] [id number] [address] [place] [address] Jul, Osteoarthritis M19.90 [facility] [address] [address] Jun, Diabetes E11.9 ; Encounter f or immunization Z23 ; Osteoarthritis M19.90 ; halfway (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.01 ; Cigarette nicotine dependence without complication F17.210 ; Acquired hypothyroidism E03.9 ; Morbid obesity, unspecified obesity type E66.01 and Irregular heart beats I49.9 [facility] [address] [facility] [id number] [address] [place] [address] Jun, Osteoarthritis M19.90 [facility] [address] [place] [id number] [address] [place] [address] May, Osteoarthritis M19.90 [facility] [address] [place] [id number] [address] [place] [address] May, Urinary incontinence, unspec ified type R32 [facility] [address] [facility] [id number] [address] [place] [address] May, [facility] [address] [facility] [id number] [address] [place] [address] Apr, Osteoarthritis M19.90 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 [address] [id number] [address] [place] [address] Apr, [facility] [address] [facility] [id number] [address] [place] [address] Apr, Osteoarthritis M19.90 [facility] [address] [facility] [id number] [address] [place] [address] Mar, Diabetes E11.9 ; Hypothyroid ism, unspecified type E03.9 ; Osteoarthritis M19.90 ; High risk medication use Z79.899 ; Cigarette nicotine dependence without complication F17.210 and Morbid obesity, unspecified obesity type E66.01 [facility] [address] [id number] [address] [place] [address] Mar, Osteoarthritis M19.90 [facility] [address] [facility] [id number] [address] [place] [address] December, Osteoarthritis M19.90 [facility] [address] [facility] [id number] [address] [place] [address] December, [facility] [address] [id number] [address] [place] [address] Oct, [facility] [address] [facility] [id number] [address] [place] [address] Oct, [facility] [address] [facility] [id number] [address] [place] [address] Aug, [facility] [address] [facility] [id number] [address] [place] [address] Jul, [facility] [address] [facility] [id number] [address] [place] [id number] Jul, [facility] [address] [facility] [id number] [address] [place] [id number] Jul, Diabetes E11.9 ; Encounter f or immunization Z23 ; Abnormal mammogram R92.8 ; Acquired hypothyroidism E03.9 ; High risk medication use Z79.899 ; Osteoarthritis M19.90 and Cigarette nicotine dependence without complication F17.210 [facility] [address] [id number] [address] [place] [id number] Jul, [facility] [address] [id number] [address] [place] [id number] Jun, Abnormal mammogram R92.8 [facility] [address] [id number] [address] [place] [id number] Apr, [facility] [address] [id number] [address] [place] [id number] Apr, [facility] [address] [id number] [address] [place] [phone] Mar, [facility] [address] [id number] [address] [place] [id number] Mar, Current use of usp ant 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 V58.61 [facility] [address] [id number] [address] [place] [id number] Feb, [facility] [address] [id number] [address] [place] [id number] Jan, [facility] [address] [id number] [address] [place] [phone] December, [facility] [address] [id number] [address] [place] [phone] Nov, [facility] [address] [id number] [address] [place] [phone] Nov, [facility] [address] [id number] [address] [place] [id number] Oct, [facility] [address] [id number] [address] [place] [id number] Oct, [facility] [address] [id number] [address] [place] [address] Oct, [facility] [address] [id number] [address] [place] [address] Oct, [facility] [address] [id number] [address] [place] [address], [place] [address] Oct, [facility] [address] [id number] [address] [place] [address], [place] [address] Oct, [facility] [address] [id number] [address] [place] [address], [place] [address] Sep, [facility] [address] [id number] [address] [place] [address], [place] [address] Sep, [facility] [address] [id number] [address] [place] [address], [place] [address] Sep, [facility] [address] [id number] [address] [place] [address], [place] [address] Sep, [facility] [address] [id number] [address] [place] [address], [place] [address] Aug, [facility] [address] [id number] [address] [place] [address], [place] [address] Aug, [facility] [address] [id number] [address] [place] [address], [place] [address] Aug, [facility] [address] [id number] [address] [place] [address], [place] [address] Aug, [facility] [address] [id number] [address] [place] [address], [place] [address] Aug, [facility] [address] [id number] [address] [place] [address], [place] [address] Aug, [facility] [address] [id number] [address] [place] [address], [place] [address] Jul, [facility] [address] [id number] [address] [place] [address], [place] [address] Jul, [facility] [address] [id number] [address] [place] [address], [place] [address] Jul, [facility] [address] [id number] [address] [place] [address], [place] [address] Jul, [facility] [address] [id number] [address] [place] [address], [place] [address] Jul, [facility] [address] [id number] [address] [place] [address], [place] [address] Jul, [facility] [address] [id number] [address] [place] [address], [place] [address] Jun, [facility] [address] [id number] [address] [place] [address], [place] [address] Jun, [facility] [address] [id number] [address] [place] [address], [place] [address] Jun, [facility] [address] [id number] [address] [place] [address], [place] [address] Jun, [facility] [address] [id number] [address] [place] [address], [place] [address] Jun, [facility] [address] [id number] [address] [place] [address], [place] [address] Jun, [facility] [address] [id number] [address] [place] [address], [place] [address] Jun, [facility] [address] [id number] [address] [place] [address], [place] [address] Jun, [facility] [address] [id number] [address] [place] [address], [place] [address] Jun, [facility] [address] [id number] [address] [place] [address], [place] [address] May, [facility] [address] [id number] [address] [place] [address], [place] [address] May, [facility] [address] [id number] [address] [place] [address], [place] [address] Apr, [facility] [address] [id number] [address] [place] [address], [place] [address] Apr, [facility] [address] [id number] [address] [place] [address], [place] [address] Apr, 2013 [facility] [address] [id number] [address] [place] [address], [place] [address] Apr, 2013 [facility] [address] [id number] [address] [place] [address], [place] [address] Apr, 2013 [facility] [address] [id number] [address] [place] [address], [place] [address] Apr, 2013 [facility] [address] [id number] [address] [place] [address], [place] [address] Apr, 2013 [facility] [address] [id number] [address] [place] [address], [place] [address] Apr, 2013 [facility] [address] [id number] [address] [place] [address], [place] [address] Apr, 2013 [facility] [address] [id number] [address] [place] [address], [place] [address] Apr, 2013 [facility] [address] [id number] [address] [place] [address], [place] [address] Mar, [facility] [address] [id number] [address] [place] [address], [place] [address] Mar, [facility] [address] [id number] [address] [place] [address], [place] [address] Mar, [facility] [address] [id number] [address] [place] [address], [place] [address] Mar, [facility] [address] [id number] [address] [place] [address], [place] [address] Mar, [facility] [address] [id number] [address] [place] [address], [place] [address] Mar, [facility] [address] [id number] [address] [place] [address], [place] [address] Feb, [facility] [address] [id number] [address] [place] [address], [place] [address] Feb, [facility] [address] [id number] [address] [place] [address], [place] [address] Feb, [facility] [address] [id number] [address] [place] [address], [place] [address] Feb, [facility] [address] [id number] [address] [place] [address], [place] [address] Jan, [facility] [address] [id number] [address] [place] [address], [place] [address] Jan, [facility] [address] [id number] [address] [place] [address], [place] [address] Jan, [facility] [address] [id number] [address] [place] [address], [place] [address] Jan, [facility] [address] [id number] [address] [place] [address], [place] [address] Oct, [facility] [address] [id number] [address] [place] [address], [place] [address] Oct, [facility] [address] [id number] [address] [place] [address], [place] [address] Sep, [facility] [address] [id number] [address] [place] [address], [place] [address] Sep, [facility] [address] [id number] [address] [place] [address], [place] [address] Sep, [facility] [address] [id number] [address] [place] [address], [place] [address] Sep, [facility] [address] [id number] [address] [place] [address], [place] [address] Aug, [facility] [address] [id number] [address] [place] [address], [place] [address] Aug, [facility] [address] [id number] [address] [place] [address], [place] [address] Aug, [facility] [address] [id number] [address] [place] [address], [place] [address] Aug, [facility] [address] [id number] [address] [place] [address], [place] [address] 30 Jul, 2013 [facility] [address] [id number] [address] [place] [address], [place] [address] Jul, [facility] [address] [id number] [address] [place] [address], [place] [address] Jul, [facility] [address] [id number] [address] [place] [address], [place] [address] Jul, [facility] [address] [id number] [address] [place] [address], [place] [address] Jul, [facility] [address] [id number] [address] [place] [address], [place] [address] Jul, [facility] [address] [id number] [address] [place] [address], [place] [address] Jun, [facility] [address] [id number] [address] [place] [address], [place] [address] Jun, [facility] [address] [id number] [address] [place] [address], [place] [address] Jun, [facility] [address] [id number] [address] [place] [address], [place] [address] Jun, [facility] [address] [id number] [address] [place] [address], [place] [address] Jun, [facility] [address] [id number] [address] [place] [address], [place] [address] Jun, [facility] [address] [id number] [address] [place] [address], [place] [address] May, [facility] [address] [id number] [address] [place] [address], [place] [address] May, [facility] [address] [id number] [address] [place] [address], [place] [address] May, [facility] [address] [id number] [address] [place] [address], [place] [address] May, [facility] [address] [id number] [address] [place] [address], [place] [address] May, [facility] [address] [id number] [address] [place] [address], [place] [address] May, [facility] [address] [id number] [address] [place] [address], [place] [address] May, [facility] [address] [id number] [address] [place] [address], [place] [address] May, [facility] [address] [id number] [address] [place] [address], [place] [address] Apr, [facility] [address] [id number] [address] [place] [address], [place] [address] Apr, [facility] [address] [id number] [address] [place] [address], [place] [address] Mar, [facility] [address] [id number] [address] [place] [address], [place] [address] Mar, [facility] [address] [id number] [address] [place] [address], [place] [address] Mar, [facility] [address] [id number] [address] [place] [address], [place] [address] Mar, [facility] [address] [id number] [address] [place] [address], [place] [address] Feb, [facility] [address] [id number] [address] [place] [address], [place] [address] Jan, [facility] [address] [id number] [address] [place] [address], [place] [address] December, [facility] [address] [id number] [address] [place] [address], [place] [address] December, [facility] [address] [id number] [address] [place] [address], [place] [address] December, [facility] [address] [id number] [address] [place] [address], [place] [address] Nov, [facility] [address] [id number] [address] [place] [address], [place] [address] Nov, [facility] [address] [id number] [address] [place] [address], [place] [address] 14 Sep, 2012 [facility] [address] [id number] [address] [place] [address], [place] [address] Sep, [facility] [address] [id number] [address] [place] [address], [place] [address] Sep, [facility] [address] [id number] [address] [place] [address], [place] [address] Sep, [facility] [address] [id number] [address] [place] [address], [place] [address] Aug, [facility] [address] [id number] [address] [place] [address], [place] [address] Aug, [facility] [address] [id number] [address] [place] [address], [place] [address] Aug, [facility] [address] [id number] [address] [place] [address], [place] [address] Aug, [facility] [address] [id number] [address] [place] [address], [place] [address] Jul, [facility] [address] [id number] [address] [place] [address], [place] [address] Jul, [facility] [address] [id number] [address] [place] [address], [place] [address] Jul, [facility] [address] [id number] [address] [place] [address], [place] [address] Jul, [facility] [address] [id number] [address] [place] [address], [place] [address] 08 Jun, 2012 [facility] [address] [id number] [address] [place] [address], [place] [address] 08 Jun, 2012 [facility] [address] [id number] [address] [place] [address], [place] [address] Jun, [facility] [address] [id number] [address] [place] [address], [place] [address] Jun, [facility] [address] [id number] [address] [place] [address], [place] [address] May, [facility] [address] [id number] [address] [place] [address], [place] [address] May, [facility] [address] [id number] [address] [place] [address], [place] [address] May, [facility] [address] [id number] [address] [place] [address], [place] [address] May, [facility] [address] [id number] [address] [place] [address], [place] [address] May, [facility] [address] [id number] [address] [place] [address], [place] [address] 10 Apr, 2012 [facility] [address] [id number] [address] [place] [address], [place] [address] 08 Apr, 2012 [facility] [address] [id number] [address] [place] [address], [place] [address] 07 Apr, 2012 [facility] [address] [id number] [address] [place] [address], [place] [address] 06 Apr, 2012 [facility] [address] [id number] [address] [place] [address], [place] [address] Mar, [facility] [address] [id number] [address] [place] [address], [place] [address] Mar, [facility] [address] [id number] [address] [place] [address], [place] [address] Feb, [facility] [address] [id number] [address] [place] [address], [place] [address] Feb, [facility] [address] [id number] [address] [place] [address], [place] [address] Feb, [facility] [address] [id number] [address] [place] [address], [place] [address] Jan, [facility] [address] [id number] [address] [place] [address], [place] [address] Jan, [facility] [address] [id number] [address] [place] [address], [place] [address] December, [facility] [address] [id number] [address] [place] [address], [place] [address] December, [facility] [address] [id number] [address] [place] [address], [place] [address] Nov, [facility] [address] [id number] [address] [place] [address], [place] [address] Oct, [facility] [address] [id number] [address] [place] [address], [place] [address] Oct, [facility] [address] [id number] [address] [place] [address], [place] [address] Sep, [facility] [address] [id number] [address] [place] [address], [place] [address] Sep, [facility] [address] [id number] [address] [place] [address], [place] [address] Aug, [facility] [address] [id number] [address] [place] [address], [place] [address] Aug, [facility] [address] [id number] [address] [place] [address], [place] [address] Jul, [facility] [address] [id number] [address] [place] [address], [place] [address] Jul, [facility] [address] [id number] [address] [place] [address], [place] [address] Jul, [facility] [address] [id number] [address] [place] [address], [place] [address] 07 Jun, 2011 [facility] [address] [id number] [address] [place] [address], [place] [address] 07 Jun, 2011 [facility] [address] [id number] [address] [place] [address], [place] [address] 13 May, 2011 [facility] [address] [id number] [address] [place] [address], [place] [address] 11 May, 2011 [facility] [address] [id number] [address] [place] [address], [place] [address] May, [facility] [address] [id number] [address] [place] [address], [place] [address] Jul, [facility] [address] [id number] [address] [place] [address], [place] [address] Jul, [facility] [address] [id number] [address] [place] [address], [place] [address] 15 Jun, 2010 [facility] [address] [id number] [address] [place] [address], [place] [address] May, [facility] [address] [id number] [address] [place] [address], [place] [address] May, [facility] [address] [id number] [address] [place] [address], [place] [address] 14 Aug, 2009 [facility] [address] [id number] [address] [place] [address], [place] [address] Jul, [facility] [address] [id number] [address] [place] [address], [place] [address] Jun, [facility] [address] [id number] [address] [place] [address], [place] [address] Jun, [facility] [address] [id number] [address] [place] [address] Jun, [facility] [address] [id number] [address] [place] [address] Jun, [facility] [address] [facility] [id number] [address] [place] [address] Jun, [facility] [address] [facility] [id number] [address] [place] [address] May, [facility] [address] [facility] [id number] [address] [place] [address] Sep, IMMUNIZATIONS No Known Immunizations SOCIAL HISTORY [...]
--- OUTSIDE RECORDS SUMMARY | 2020-01-28 14:27 | XMS REPORT ---
Author Author Katarina RODRIGUEZ Organization [facility] Address [address] [place] [address] Care Team Providers Care Bale Piler Name Role Phone GEORGINA RODRIGUEZ Unavailable PROBLEMS Type Condition ICD9-CM Code [id number] Code Onset Dates Condition S tatus SNOMED Code Problem Osteoarthritis M19.90 Active 18405 5006 Problem Chronic obstructive pulmonary disease, unspecified COPD ty pe J44.9 Active 45011424 Problem Acquired hypothyroidism E03.9 Active 463901126 Problem Cigarette nicotine dependence without complication F17.210 Active 32807393 Problem Diabetes E11.9 Active 445211379 Problem High risk medication use Z79.899 Activ e 694157488 Problem Urinary incontinence, unspecified type R32 Active 737173457 Problem retirement (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.01 Active 552463157 Problem Morbid obesity, unspecified obesity type E66.01 Active 233259017 Problem Other chronic pain G89.29 Active 8 5481286 Problem History of cataract surgery Z98.49 Ac tive 746238804 Problem Type 2 diabetes mellitus wit h hyperglycemia, without long-term current use of insulin E11.65 Active 38112299 Problem Encounter for immunization Z23 Act essie 818073898 Problem Irregular heart beats I49.9 Active 914545919 Problem Other urinary incontinence N39.498 Act essie 263689015 Problem Essential hypertension I10 Active 07676905 Problem Chronic atrial fibrillation I48.2 Ac tive [id number] ALLERGIES No Information ENCOUNTERS Encounter Location Date Diagnosis [facility] [address] [facility] [id number] [address] [place] [phone] Oct, [facility] [address] [facility] [id number] [address] [place] [phone] Oct, retirement (current) use of a nticoagulants Z79.01 [facility] [address] [id number] [address] [place] [phone] Oct, 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 [facility] [address] [id number] [address] [place] [phone] Sep, [facility] [address] [id number] [address] [place] [phone] Aug, Osteoarthritis M19.90 [facility] [address] [id number] [address] [place] [phone] Aug, Diabetes E11.9 ; retirement ( 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.01 ; Tobacco abuse Z72.0 ; Low back pain M54.5 and Chronic atrial fibrillation I48.2 [place] [address] [id number] [address] [place] [phone] Aug, Diabetes E11.9 [facility] [address] [facility] [id number] [address] [place] [phone] Aug, [facility] [address] [id number] [address] [place] [phone] 08 Aug, 2019 Acute non-recurrent pansinus itis J01.40 and Non- recurrent acute suppurative otitis media of left ear without spontaneous rupture of tympanic membrane H66.002 [place] [address] [id number] [address] [place] [phone] Aug, [facility] [address] [id number] [address] [place] [phone] Aug, 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 [facility] [address] [id number] [address] [place] [phone] Aug, 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 [facility] [address] [id number] [address] [place] [phone] Jul, Osteoarthritis M19.90 [facility] [address] [facility] [id number] [address] [place] [phone] Jul, Osteoarthritis M19.90 [facility] [address] [id number] [address] [place] [phone] Jun, [facility] [address] [id number] [address] [place] [phone] Jun, Chronic atrial fibrillation I48.2 [facility] [address] [facility] [id number] [address] [place] [phone] Jun, Osteoarthritis M19.90 [facility] [address] [id number] [address] [place] [phone] Jun, Chronic atrial fibrillation I48.2 [facility] [address] [id number] [address] [place] [phone] May, Osteoarthritis M19.90 [facility] [address] [facility] [id number] [address] [place] [phone] May, Chronic atrial fibrillation I48.2 [facility] [address] [id number] [address] [place] [phone] Apr, Osteoarthritis M19.90 [facility] [address] [facility] [id number] [address] [place] [phone] Mar, Chronic atrial fibrillation I48.2 [facility] [address] [facility] [id number] [address] [place] [phone] Mar, Chronic atrial fibrillation I48.2 [facility] [address] [facility] [id number] [address] [place] [phone] Mar, Osteoarthritis M19.90 [facility] [address] [facility] [id number] [address] [place] [phone] Mar, Chronic atrial fibrillation I48.2 [facility] [address] [facility] [id number] [address] [place] [phone] Mar, Type 2 diabetes mellitus wit h hyperglycemia, without long-term current use of insulin E11.65 ; Chronic atrial fibrillation I48.2 and Morbid obesity E66.01 [facility] [address] [id number] [address] [place] [phone] Feb, Osteoarthritis M19.90 [facility] [address] [id number] [address] [place] [phone] Feb, Chronic atrial fibrillation I48.2 [facility] [address] [id number] [address] [place] [phone] Feb, Hyperglycemia R73.9 ; Diabet es E11.9 ; Morbid obesity E66.01 ; Acquired hypothyroidism E03.9 ; Osteoarthritis M19.90 and High risk medication use Z79.899 [facility] [address] [id number] [address] [place] [phone] Feb, Chronic atrial fibrillation I48.2 [facility] [address] [id number] [address] [place] [id number] Jan, Osteoarthritis M19.90 [facility] [address] [id number] [address] [place] [phone] Jan, Chronic atrial fibrillation I48.2 [facility] [address] [id number] [address] [place] [phone] Jan, Chronic atrial fibrillation I48.2 [facility] [address] [id number] [address] [place] [phone] Jan, Chronic atrial fibrillation I48.2 [facility] [address] [facility] [id number] [address] [place] [phone] Jan, retirement (current) use of a nticoagulants Z79.01 [facility] [address] [id number] [address] [place] [phone] December, [facility] [address] [id number] [address] [place] [phone] December, [facility] [address] [facility] [id number] [address] [place] [phone] December, Osteoarthritis M19.90 [facility] [address] [id number] [address] [place] [phone] Nov, [facility] [address] [id number] [address] [place] [phone] Nov, Osteoarthritis M19.90 [facility] [address] [id number] [address] [place] [id number] Oct, Osteoarthritis M19.90 [facility] [address] [facility] [id number] [address] [place] [phone] Sep, Osteoarthritis M19.90 [facility] [address] [facility] [id number] [address] [place] [id number] Sep, retirement (current) use of a nticoagulants Z79.01 ; BMI 45.0-49.9, adult Z68.42 ; Diabetes E11.9 ; Chronic atrial fibrillation I48.2 and Chronic obstructive pulmonary disease, unspecified COPD type J44.9 [facility] [address] [facility] [id number] [address] [place] [phone] Sep, Diabetes E11.9 ; retirement ( 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.01 ; Chronic atrial fibrillation I48.2 ; Chronic obstructive pulmonary disease, unspecified COPD type J44.9 and BMI 45.0-49.9, adult Z68.42 [facility] [address] [facility] [id number] [address] [place] [phone] Aug, Osteoarthritis M19.90 [facility] [address] [facility] [id number] [address] [place] [phone] Aug, [facility] [address] [facility] [id number] [address] [place] [id number] Aug, retirement (current) use of a nticoagulants Z79.01 ; BMI 45.0-49.9, adult Z68.42 ; Diabetes E11.9 and Chronic atrial fibrillation I48.2 [facility] [address] [facility] [id number] [address] [place] [phone] Aug, [facility] [address] [id number] [address] [place] [phone] Jul, Osteoarthritis M19.90 [facility] [address] [id number] [address] [place] [phone] Jun, Osteoarthritis M19.90 [facility] [address] [facility] [id number] [address] [place] [phone] Jun, retirement (current) use of a nticoagulants Z79.01 [facility] [address] [facility] [id number] [address] [place] [phone] Jun, Chronic atrial fibrillation I48.2 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 [place] [address] [facility] [id number] [address] [place] [phone] Jun, Osteoarthritis M19.90 [place] [address] [place] [id number] [place] [phone] May, Encounter for immunization Z 23 [facility] [address] [facility] [id number] [address] [place] [phone] May, 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 [facility] [address] [facility] [id number] [address] [place] [phone] May, Osteoarthritis M19.90 [place] [address] [place] [id number] [address] [place] [phone] May, [facility] [address] [facility] [id number] [address] [place] [phone] May, Diabetes E11.9 ; retirement ( 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.01 ; Chronic atrial fibrillation I48.2 ; BMI 45.0-49.9, adult Z68.42 ; Osteoarthritis M19.90 ; Low back pain M54.5 and Other chronic pain G89.29 [facility] [address] [facility] [id number] [address] [place] [phone] Apr, Chronic atrial fibrillation I48.2 [place] [address] [facility] [id number] [address] [place] [phone] 13 Apr, 2018 retirement (current) use of a nticoagulants Z79.01 [facility] [address] [id number] [address] [place] [phone] 07 Apr, 2018 Osteoarthritis M19.90 [facility] [address] [id number] [address] [place] [phone] 04 Apr, 2018 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 and Chronic atrial fibrillation I48.2 [facility] [address] [id number] [address] [place] [phone] Mar, Osteoarthritis M19.90 [facility] [address] [id number] [address] [place] [phone] Feb, Osteoarthritis M19.90 [facility] [address] [facility] [id number] [address] [place] [phone] Jan, Osteoarthritis M19.90 [facility] [address] [id number] [address] [place] [phone] December, [facility] [address] [id number] [address] [place] [phone] December, Osteoarthritis M19.90 [facility] [address] [facility] [id number] [address] [place] [id number] Nov, Diabetes E11.9 ; retirement ( 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.01 ; Acquired hypothyroidism E03.9 ; Cigarette nicotine dependence without complication F17.210 ; Osteoarthritis M19.90 ; BMI 45.0-49.9, adult Z68.42 and Chronic atrial fibrillation I48.2 [facility] [address] [id number] [address] [place] [phone] Nov, Osteoarthritis M19.90 [facility] [address] [id number] [address] [place] [phone] Oct, Osteoarthritis M19.90 [facility] [address] [facility] [id number] [address] [place] [phone] Oct, 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 [facility] [address] [facility] [id number] [address] [place] [phone] Sep, Osteoarthritis M19.90 [facility] [address] [facility] [id number] [address] [place] [phone] Sep, [facility] [address] [place] [id number] [address] [place] [phone] Aug, Osteoarthritis M19.90 [facility] [address] [facility] [id number] [address] [place] [phone] Jul, Osteoarthritis M19.90 [facility] [address] [phone] Jul, Osteoarthritis M19.90 [facility] [address] [phone] Jun, Diabetes E11.9 ; Encounter f or immunization Z23 ; 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 ; Chronic atrial fibrillation I48.2 ; Osteoarthritis M19.90 ; Tobacco abuse Z72.0 and Bug bite, initial encounter W57.XXXA [facility] [address] [phone] May, Osteoarthritis M19.90 [facility] [address] [address] Apr, Osteoarthritis M19.90 [facility] [address] [place] [id number] [address] [place] [phone] Mar, Chronic atrial fibrillation I48.2 [facility] [address] [place] [id number] [place] [phone] Mar, [facility] [address] [place] [id number] [address] [place] [phone] Mar, Osteoarthritis M19.90 [facility] [address] [place] [id number] [address] [place] [phone] Mar, retirement (current) use of a nticoagulants Z79.01 and Chronic atrial fibrillation I48.2 [facility] [address] [id number] [address] [place] [phone] Mar, Chronic atrial fibrillation I48.2 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 [facility] [address] [id number] [address] [place] [phone] Mar, 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 [place] [address] [id number] [address] [place] [phone] Mar, 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 [place] [address] [id number] [address] [place] [phone] Mar, Osteoarthritis M19.90 [place] [address] [id number] [address] [place] [phone] Feb, Encounter for screening mamm ogram for malignant neoplasm of breast Z12.31 [place] [address] [id number] [address] [place] [phone] Feb, Osteoarthritis M19.90 [place] [address] [id number] [address] [place] [phone] Jan, [place] [address] [id number] [address] [place] [phone] Jan, retirement (current) use of a nticoagulants Z79.01 ; Diabetes E11.9 ; Osteoarthritis M19.90 and Breast cancer screening Z12.39 [place] [address] [id number] [address] [place] [phone] Jan, Osteoarthritis M19.90 [place] [address] [id number] [address] [place] [phone] Jan, Osteoarthritis M19.90 [facility] [address] [facility] [id number] [address] [place] [phone] Jan, [facility] [address] [facility] [id number] [address] [place] [phone] December, Osteoarthritis M19.90 [facility] [address] [facility] [id number] [address] [place] [phone] December, Osteoarthritis M19.90 [facility] [address] [id number] [id number] Nov, [facility] [address] [facility] [id number] [address] [place] [phone] Nov, [facility] [address] [facility] [id number] [address] [place] [phone] Nov, [facility] [address] [facility] [id number] [address] [place] [phone] Nov, Diabetes E11.9 [place] [address] [facility] [id number] [address] [place] [phone] Nov, [facility] [address] [facility] [id number] [address] [place] [phone] Oct, Osteoarthritis M19.90 [facility] [address] [facility] [id number] [address] [place] [phone] Oct, Osteoarthritis M19.90 ; 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 ; Diabetes E11.9 ; Cigarette nicotine dependence without complication F17.210 and Chronic atrial fibrillation I48.2 [place] [address] [facility] [id number] [address] [place] [phone] Aug, [facility] [address] [facility] [id number] [address] [place] [phone] Aug, retirement (current) use of a nticoagulants Z79.01 [facility] [address] [facility] [id number] [address] [place] [phone] Aug, [facility] [address] [id number] [id number] Aug, [place] [address] [place] [id number] [address] [place] [phone] Aug, [facility] [address] [phone] Aug, [facility] [id number] [place] [id number] Aug, [facility] [address] [place] [id number] Aug Osteoarthritis M19.90 and Essential hypertension I10 [facility] [address] [address] Aug, Other urinary incontinence N 39.498 [place] [address] [address] Jul, Osteoarthritis M19.90 [place] [address] [address] Jun, Diabetes E11.9 ; Encounter f or immunization Z23 ; Osteoarthritis M19.90 ; retirement (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.01 ; Cigarette nicotine dependence without complication F17.210 ; Acquired hypothyroidism E03.9 ; Morbid obesity, unspecified obesity type E66.01 and Irregular heart beats I49.9 [facility] [id number] [place] [phone] Jun, Osteoarthritis M19.90 [place] [address] [address] May, Osteoarthritis M19.90 [facility] [address] [phone] May, Urinary incontinence, unspec ified type R32 [place] [address] [address] May, [facility] [address] [place] [id number] [address] [place] [phone] Apr, Osteoarthritis M19.90 [facility] [address] [address] Apr, 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 [facility] [address] [facility] [id number] [address] [place] [phone] Apr, [facility] [address] [facility] [id number] [address] [place] [phone] Apr, Osteoarthritis M19.90 [facility] [address] [facility] [id number] [address] [place] [phone] Mar, Diabetes E11.9 ; Hypothyroid ism, unspecified type E03.9 ; Osteoarthritis M19.90 ; High risk medication use Z79.899 ; Cigarette nicotine dependence without complication F17.210 and Morbid obesity, unspecified obesity type E66.01 [place] [address] [facility] [id number] [address] [place] [phone] Mar, Osteoarthritis M19.90 [place] [address] [address] [facility] [id number] [address] [place] [phone] December, Osteoarthritis M19.90 [place] [address] [address] [facility] [id number] [address] [place] [phone] December, [place] [address] [address] [facility] [id number] [address] [place] [phone] Oct, [place] [address] [address] [facility] [id number] [address] [place] [phone] Oct, [place] [address] [address] [facility] [id number] [address] [place] [phone] Aug, [facility] [address] [facility] [id number] [address] [place] [phone] Jul, [place] [address] [address] [facility] [id number] [address] [place] [phone] Jul, [place] [address] [address] [facility] [id number] [address] [place] [phone] Jul, Diabetes E11.9 ; Encounter f or immunization Z23 ; Abnormal mammogram R92.8 ; Acquired hypothyroidism E03.9 ; High risk medication use Z79.899 ; Osteoarthritis M19.90 and Cigarette nicotine dependence without complication F17.210 [facility] [address] [id number] [address] [place] [phone] Jul, [facility] [address] [facility] [id number] [address] [place] [phone] Jun, Abnormal mammogram R92.8 [facility] [address] [id number] [address] [place] [phone] Apr, [facility] [address] [id number] [address] [place] [phone] Apr, [facility] [facility] [address] [id number] [address] [place] [id number] Mar, [facility] [address] [id number] [address] [place] [id number] Mar, 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 [facility] [address] [id number] [address] [place] [id number] Feb, [facility] [address] [id number] [address] [place] [id number] Jan, [facility] [address] [facility] [id number] [address] [place] [id number] December, [facility] [address] [id number] [address] [place] [id number] Nov, [facility] [address] [id number] [address] [place] [id number] Nov, [facility] [address] [id number] [address] [place] [id number] Oct, [facility] [address] [id number] [address] [place] [phone] Oct, [facility] [address] [id number] [address] [place] [id number] 17 Oct, 2014 [facility] [address] [id number] [address] [place] [address], [place] [address] 17 Oct, 2014 [facility] [address] [id number] [address] [place] [address], [place] [address] Oct, [facility] [address] [id number] [address] [place] [address], [place] [address] Oct, [facility] [address] [id number] [address] [place] [address], [place] [address] Sep, [facility] [address] [id number] [address] [place] [address], [place] [address] Sep, [facility] [address] [id number] [address] [place] [address], [place] [address] Sep, [facility] [address] [id number] [address] [place] [address], [place] [address] Sep, [facility] [address] [id number] [address] [place] [address], [place] [address] Aug, [facility] [address] [id number] [address] [place] [address], [place] [address] Aug, [facility] [address] [id number] [address] [place] [address], [place] [address] Aug, [facility] [address] [id number] [address] [place] [address], [place] [address] Aug, [facility] [address] [id number] [address] [place] [address], [place] [address] Aug, [facility] [address] [id number] [address] [place] [address], [place] [address] Aug, [facility] [address] [id number] [address] [place] [address], [place] [address] Jul, [facility] [address] [id number] [address] [place] [address], [place] [address] Jul, [facility] [address] [id number] [address] [place] [address], [place] [address] Jul, [facility] [address] [id number] [address] [place] [address], [place] [address] Jul, [facility] [address] [id number] [address] [place] [address], [place] [address] Jul, [facility] [address] [id number] [address] [place] [address], [place] [address] Jul, [facility] [address] [id number] [address] [place] [address], [place] [address] Jun, [facility] [address] [id number] [address] [place] [address], [place] [address] Jun, [facility] [address] [id number] [address] [place] [address], [place] [address] Jun, [facility] [address] [id number] [address] [place] [address], [place] [address] Jun, [facility] [address] [id number] [address] [place] [address], [place] [address] Jun, [facility] [address] [id number] [address] [place] [address], [place] [address] Jun, [facility] [address] [id number] [address] [place] [address], [place] [address] Jun, [facility] [address] [id number] [address] [place] [address], [place] [address] Jun, [facility] [address] [id number] [address] [place] [address], [place] [address] Jun, [facility] [address] [id number] [address] [place] [address], [place] [address] May, [facility] [address] [id number] [address] [place] [address], [place] [address] May, [facility] [address] [id number] [address] [place] [address], [place] [address] Apr, [facility] [address] [id number] [address] [place] [address], [place] [address] Apr, 2013 [facility] [address] [id number] [address] [place] [address], [place] [address] Apr, 2013 [facility] [address] [id number] [address] [place] [address], [place] [address] Apr, 2013 [facility] [address] [id number] [address] [place] [address], [place] [address] Apr, 2013 [facility] [address] [id number] [address] [place] [address], [place] [address] Apr, 2013 [facility] [address] [id number] [address] [place] [address], [place] [address] Apr, 2013 [facility] [address] [id number] [address] [place] [address], [place] [address] Apr, 2013 [facility] [address] [id number] [address] [place] [address], [place] [address] Apr, [facility] [address] [id number] [address] [place] [address], [place] [address] Apr, [facility] [address] [id number] [address] [place] [address], [place] [address] Mar, [facility] [address] [id number] [address] [place] [address], [place] [address] Mar, [facility] [address] [id number] [address] [place] [address], [place] [address] Mar, [facility] [address] [id number] [address] [place] [address], [place] [address] Mar, [facility] [address] [id number] [address] [place] [address], [place] [address] Mar, [facility] [address] [id number] [address] [place] [address], [place] [address] Mar, [facility] [address] [id number] [address] [place] [address], [place] [address] Feb, [facility] [address] [id number] [address] [place] [address], [place] [address] Feb, [facility] [address] [id number] [address] [place] [address], [place] [address] Feb, [facility] [address] [id number] [address] [place] [address], [place] [address] Feb, [facility] [address] [id number] [address] [place] [address], [place] [address] Jan, [facility] [address] [id number] [address] [place] [address], [place] [address] Jan, [facility] [address] [id number] [address] [place] [address], [place] [address] Jan, [facility] [address] [id number] [address] [place] [address], [place] [address] Jan, [facility] [address] [id number] [address] [place] [address], [place] [address] Oct, [facility] [address] [id number] [address] [place] [address], [place] [address] Oct, [facility] [address] [id number] [address] [place] [address], [place] [address] Sep, [facility] [address] [id number] [address] [place] [address], [place] [address] Sep, [facility] [address] [id number] [address] [place] [address], [place] [address] Sep, [facility] [address] [id number] [address] [place] [address], [place] [address] Sep, [facility] [address] [id number] [address] [place] [address], [place] [address] Aug, [facility] [address] [id number] [address] [place] [address], [place] [address] Aug, [facility] [address] [id number] [address] [place] [address], [place] [address] Aug, [facility] [address] [id number] [address] [place] [address], [place] [address] Aug, [facility] [address] [id number] [address] [place] [address], [place] [address] 30 Jul, 2013 [facility] [address] [id number] [address] [place] [address], [place] [address] 30 Jul, 2013 [facility] [address] [id number] [address] [place] [address], [place] [address] Jul, [facility] [address] [id number] [address] [place] [address], [place] [address] Jul, [facility] [address] [id number] [address] [place] [address], [place] [address] Jul, [facility] [address] [id number] [address] [place] [address], [place] [address] Jul, [facility] [address] [id number] [address] [place] [address], [place] [address] Jun, [facility] [address] [id number] [address] [place] [address], [place] [address] Jun, [facility] [address] [id number] [address] [place] [address], [place] [address] Jun, [facility] [address] [id number] [address] [place] [address], [place] [address] Jun, [facility] [address] [id number] [address] [place] [address], [place] [address] Jun, [facility] [address] [id number] [address] [place] [address], [place] [address] Jun, [facility] [address] [id number] [address] [place] [address], [place] [address] May, [facility] [address] [id number] [address] [place] [address], [place] [address] May, [facility] [address] [id number] [address] [place] [address], [place] [address] May, [facility] [address] [id number] [address] [place] [address], [place] [address] May, [facility] [address] [id number] [address] [place] [address], [place] [address] May, [facility] [address] [id number] [address] [place] [address], [place] [address] May, [facility] [address] [id number] [address] [place] [address], [place] [address] May, [facility] [address] [id number] [address] [place] [address], [place] [address] May, [facility] [address] [id number] [address] [place] [address], [place] [address] Apr, [facility] [address] [id number] [address] [place] [address], [place] [address] Apr, [facility] [address] [id number] [address] [place] [address], [place] [address] Mar, [facility] [address] [id number] [address] [place] [address], [place] [address] Mar, [facility] [address] [id number] [address] [place] [address], [place] [address] Mar, [facility] [address] [id number] [address] [place] [address], [place] [address] Mar, [facility] [address] [id number] [address] [place] [address], [place] [address] Feb, [facility] [address] [id number] [address] [place] [address], [place] [address] Jan, [facility] [address] [id number] [address] [place] [address], [place] [address] December, [facility] [address] [id number] [address] [place] [address], [place] [address] December, [facility] [address] [id number] [address] [place] [address], [place] [address] December, [facility] [address] [id number] [address] [place] [address], [place] [address] Nov, [facility] [address] [id number] [address] [place] [address], [place] [address] Nov, [facility] [address] [id number] [address] [place] [address], [place] [address] Sep, [facility] [address] [id number] [address] [place] [address], [place] [address] Sep, [facility] [address] [id number] [address] [place] [address], [place] [address] Sep, [facility] [address] [id number] [address] [place] [address], [place] [address] Sep, [facility] [address] [id number] [address] [place] [address], [place] [address] Aug, [facility] [address] [id number] [address] [place] [address], [place] [address] Aug, [facility] [address] [id number] [address] [place] [address], [place] [address] Aug, [facility] [address] [id number] [address] [place] [address], [place] [address] Aug, [facility] [address] [id number] [address] [place] [address], [place] [address] Jul, [facility] [address] [id number] [address] [place] [address], [place] [address] Jul, [facility] [address] [id number] [address] [place] [address], [place] [address] Jul, [facility] [address] [id number] [address] [place] [address], [place] [address] Jul, [facility] [address] [id number] [address] [place] [address], [place] [address] Jun, [facility] [address] [id number] [address] [place] [address], [place] [address] Jun, [facility] [address] [id number] [address] [place] [address], [place] [address] Jun, [facility] [address] [id number] [address] [place] [address], [place] [address] Jun, [facility] [address] [id number] [address] [place] [address], [place] [address] May, [facility] [address] [id number] [address] [place] [address], [place] [address] May, [facility] [address] [id number] [address] [place] [address], [place] [address] May, [facility] [address] [id number] [address] [place] [address], [place] [address] May, [facility] [address] [id number] [address] [place] [address], [place] [address] May, [facility] [address] [id number] [address] [place] [address], [place] [address] 10 Apr, 2012 [facility] [address] [id number] [address] [place] [address], [place] [address] 08 Apr, 2012 [facility] [address] [id number] [address] [place] [address] 07 Apr, 2012 [facility] [address] [id number] [address] [place] [address], [place] [address] 06 Apr, 2012 [facility] [address] [id number] [address] [place] [address], [place] [address] Mar, [facility] [address] [id number] [address] [place] [address], [place] [address] Mar, [facility] [address] [id number] [address] [place] [address], [place] [address] Feb, [facility] [address] [id number] [address] [place] [address], [place] [address] Feb, [facility] [address] [id number] [address] [place] [address], [place] [address] Feb, [facility] [address] [id number] [address] [place] [address], [place] [address] Jan, [facility] [address] [id number] [address] [place] [address], [place] [address] Jan, [facility] [address] [id number] [address] [place] [address], [place] [address] December, [facility] [address] [id number] [address] [place] [address], [place] [address] December, [facility] [address] [id number] [address] [place] [address], [place] [address] Nov, [facility] [address] [id number] [address] [place] [address], [place] [address] Oct, [facility] [address] [id number] [address] [place] [address], [place] [address] Oct, [facility] [address] [id number] [address] [place] [address], [place] [address] Sep, [facility] [address] [id number] [address] [place] [address], [place] [address] Sep, [facility] [address] [id number] [address] [place] [address], [place] [address] Aug, [facility] [address] [id number] [address] [place] [address], [place] [address] Aug, [facility] [address] [id number] [address] [place] [address], [place] [address] Jul, [facility] [address] [id number] [address] [place] [address], [place] [address] Jul, [facility] [address] [id number] [address] [place] [address], [place] [address] 09 Jul, 2011 [facility] [address] [id number] [address] [place] [address], [place] [address] 07 Jun, 2011 [facility] [address] [id number] [address] [place] [address], [place] [address] 07 Jun, 2011 [facility] [address] [id number] [address] [place] [address], [place] [address] 13 May, 2011 [facility] [address] [id number] [address] [place] [address], [place] [address] May, [facility] [address] [id number] [address] [place] [address], [place] [address] May, [facility] [address] [id number] [address] [place] [address], [place] [address] Jul, [facility] [address] [id number] [address] [place] [address], [place] [id number] Jul, [facility] [address] [id number] [address] [place] [address], [place] [address] 15 Jun, 2010 [facility] [address] [id number] [address] [place] [address], [place] [address] May, [facility] [address] [id number] [address] [place] [address], [place] [address] May, [facility] [address] [id number] [address] [place] [address], [place] [address] 14 Aug, 2009 [facility] [address] [id number] [address] [place] [address], [place] [address] 17 Jul, 2009 [facility] [address] [id number] [address] [place] [address], [place] [address] Jun, [facility] [address] [id number] [address] [place] [address], [place] [address] 10 Jun, 2009 [facility] [address] [id number] [address] [place] [id number] Jun, [facility] [address] [facility] [id number] [address] [place] [id number] Jun, [facility] [address] [facility] [id number] [address] [place] [id number] Jun, [facility] [address] [facility] [id number] [address] [place] [id number] May, [facility] [address] [facility] [id number] [address] [place] [id number] Sep, IMMUNIZATIONS No Known Immunizations SOCIAL HISTORY Never Assessed REASON FOR VISIT PLAN OF CARE VITAL SIGNS MEDICATIONS Unknown Medications RESULTS No Results PROCEDURES Procedure Date Ordered Result Body Site PROTHROMBIN TIME Aug 24, 2013 INSTRUCTIONS MEDICATIONS ADMINISTERED No Known Medications MEDICAL [...]
--- OUTSIDE RECORDS SUMMARY | 2020-01-28 14:28 | XMS REPORT ---
Author Author Katarina RODRIGUEZ Organization [facility] Address [address] [place] [address] Care Team Providers Care General Utility Maintenance Repairer Name Role Phone GEORGINA RODRIGUEZ Unavailable PROBLEMS Type Condition ICD9-CM Code QLB18-TW Code Onset Dates Condition S tatus SNOMED Code Problem Osteoarthritis M19.90 Active 54680 5006 Problem Chronic obstructive pulmonary disease, unspecified COPD ty pe J44.9 Active 82237626 Problem Acquired hypothyroidism E03.9 Active 277593334 Problem Cigarette nicotine dependence without complication F17.210 Active 69018626 Problem Diabetes E11.9 Active 792675278 Problem High risk medication use Z79.899 Activ e 610729359 Problem Urinary incontinence, unspecified type R32 Active 541705791 Problem half-way (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.01 Active 600901842 Problem Morbid obesity, unspecified obesity type E66.01 Active 309188383 Problem Other chronic pain G89.29 Active 8 1716977 Problem History of cataract surgery Z98.49 Ac tive 670823634 Problem Type 2 diabetes mellitus wit h hyperglycemia, without long-term current use of insulin E11.65 Active 59635795 Problem Encounter for immunization Z23 Act essie 180754334 Problem Irregular heart beats I49.9 Active 000343198 Problem Other urinary incontinence N39.498 Act essie 084230567 Problem Essential hypertension I10 Active 46573191 Problem Chronic atrial fibrillation I48.2 Ac tive 447203046 ALLERGIES No Information ENCOUNTERS Encounter Location Date Diagnosis [facility] [address] [id number] [place] [address] Sep, [facility] [address] [id number] [place] [address] Aug, Osteoarthritis M19.90 [facility] [address] [id number] [place] [address] Aug, Diabetes E11.9 ; 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 ; Tobacco abuse Z72.0 ; Low back pain M54.5 and Chronic atrial fibrillation I48.2 [facility] [address] [address] Aug, Diabetes E11.9 [facility] [address] [address] Aug, [facility] [address] [facility] [id number] [address] [address] 08 Aug, 2019 Acute non-recurrent pansinus itis J01.40 and Non- recurrent acute suppurative otitis media of left ear without spontaneous rupture of tympanic membrane H66.002 [place] [address] [address] Aug, [place] [address] [address] Aug, 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 [place] [address] [address] Aug, half-way (current) use of anticoagulant s Z79.01 [place] [address] [address] Jul, Osteoarthritis M19.90 [place] [address] [address] Jul, Osteoarthritis M19.90 [place] [address] [address] Jun, [place] [address] [address] Jun, Chronic atrial fibrillation I48.2 [place] [address] [address] Jun, Osteoarthritis M19.90 [place] [address] [address] Jun, Chronic atrial fibrillation I48.2 [facility] [address] [address] May, Osteoarthritis M19.90 [facility] [address] [address] May, Chronic atrial fibrillation I48.2 [facility] [address] [address] Apr, Osteoarthritis M19.90 [facility] [address] [address] Mar, Chronic atrial fibrillation I48.2 [place] [address] [address] Mar, Chronic atrial fibrillation I48.2 [place] [address] [address] Mar, Osteoarthritis M19.90 [place] [address] [address] Mar, Chronic atrial fibrillation I48.2 [facility] [address] [address] Mar, Type 2 diabetes mellitus with hyperglyce emani, without long-term current use of insulin E11.65 ; Chronic atrial fibrillation I48.2 and Morbid obesity E66.01 [place] [address] [address] Feb, Osteoarthritis M19.90 [place] [address] [address] Feb, Chronic atrial fibrillation I48.2 [place] [address] [address] Feb, Hyperglycemia R73.9 ; Diabetes E11.9 ; M orbid obesity E66.01 ; Acquired hypothyroidism E03.9 ; Osteoarthritis M19.90 and High risk medication use Z79.899 [place] [address] [address] Feb, Chronic atrial fibrillation I48.2 [place] [address] [place] [id number] [place] [address] Jan, Osteoarthritis M19.90 [facility] [address] [address] Jan, Chronic atrial fibrillation I48.2 [facility] [address] [address] Jan, Chronic atrial fibrillation I48.2 [facility] [address] [address] Jan, Chronic atrial fibrillation I48.2 [place] [address] [address] Jan, half-way (current) use of anticoagulant s Z79.01 [place] [address] [address] December, [place] [address] [address] December, [place] [address] [address] December, Osteoarthritis M19.90 [place] [address] [address] Nov, [place] [address] [address] Nov, Osteoarthritis M19.90 [place] [address] [address] Oct, Osteoarthritis M19.90 [place] [address] [address] Sep, Osteoarthritis M19.90 [place] [address] [address] Sep, half-way (current) use of anticoagulant s Z79.01 ; BMI 45.0-49.9, adult Z68.42 ; Diabetes E11.9 ; Chronic atrial fibrillation I48.2 and Chronic obstructive pulmonary disease, unspecified COPD type J44.9 [facility] [address] [address] 04 Sep, 2018 Diabetes E11.9 ; 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 ; Chronic atrial fibrillation I48.2 ; Chronic obstructive pulmonary disease, unspecified COPD type J44.9 and BMI 45.0-49.9, adult Z68.42 [place] [address] [address] Aug, Osteoarthritis M19.90 [place] [address] [address] Aug, [place] [address] [address] Aug, 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 ; BMI 45.0-49.9, adult Z68.42 ; Diabetes E11.9 and Chronic atrial fibrillation I48.2 [facility] [address] [facility] [id number] [address] [address] Aug, [place] [address] [address] Jul, Osteoarthritis M19.90 [place] [address] [address] Jun, Osteoarthritis M19.90 [place] [address] [address] Jun, half-way (current) use of anticoagulant s Z79.01 [place] [address] [address] Jun, Chronic atrial fibrillation I48.2 and Lo ng term (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.01 [place] [address] [address] Jun, Osteoarthritis M19.90 [place] [address] [address] May, Encounter for immunization Z23 [place] [address] [address] May, half-way (current) use of anticoagulant s Z79.01 [place] [address] [address] May, Osteoarthritis M19.90 [place] [address] [address] May, [place] [address] [address] May, Diabetes E11.9 ; 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 ; Chronic atrial fibrillation I48.2 ; BMI 45.0-49.9, adult Z68.42 ; Osteoarthritis M19.90 ; Low back pain M54.5 and Other chronic pain G89.29 [place] [address] [address] Apr, Chronic atrial fibrillation I48.2 [place] [address] [address] 13 Apr, 2018 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 [place] [address] [address] 07 Apr, 2018 Osteoarthritis M19.90 [place] [address] [address] Apr, half-way (current) use of anticoagulant s Z79.01 and Chronic atrial fibrillation I48.2 [place] [address] [address] Mar, Osteoarthritis M19.90 [place] [address] [address] Feb, Osteoarthritis M19.90 [place] [address] [address] Jan, Osteoarthritis M19.90 [place] [address] [address] December, [place] [address] [address] December, Osteoarthritis M19.[address] [address] Nov, Diabetes E11.9 ; half-way (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.01 ; Acquired hypothyroidism E03.9 ; Cigarette nicotine dependence without complication F17.210 ; Osteoarthritis M19.90 ; BMI 45.0-49.9, adult Z68.42 and Chronic atrial fibrillation I48.2 [place] [address] [address] Nov, Osteoarthritis M19.[address] [address] Oct, Osteoarthritis M19.[address] [address] Oct, 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 [place] [address] [address] Sep, Osteoarthritis M19.90 [place] [address] [address] Sep, [place] [address] [address] Aug, Osteoarthritis M19.[address] [address] Jul, Osteoarthritis M19.90 [place] [address] [address] Jul, Osteoarthritis M19.[address] [address] Jun, Diabetes E11.9 ; Encounter for immunizat ion Z23 ; half-way (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.01 ; Chronic atrial fibrillation I48.2 ; Osteoarthritis M19.90 ; Tobacco abuse Z72.0 and Bug bite, initial encounter W57.XXXA [place] [address] [address] May, Osteoarthritis M19.90 [place] [address] [address] Apr, Osteoarthritis M19.90 [place] [address] [address] Mar, Chronic atrial fibrillation I48.2 [place] [address] [address] Mar, [place] [address] [address] Mar, Osteoarthritis M19.90 [place] [address] [address] Mar, 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 and Chronic atrial fibrillation I48.2 [place] [address] [address] Mar, Chronic atrial fibrillation I48.2 and Lo ng term (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.01 [place] [address] [address] Mar, 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 [place] [address] [address] Mar, half-way (current) use of anticoagulant s Z79.01 [place] [address] [address] Mar, Osteoarthritis M19.90 [place] [address] [address] Feb, Encounter for screening mammogram for ma lignant neoplasm of breast Z12.31 [place] [address] [address] Feb, Osteoarthritis M19.90 [place] [address] [address] Jan, [facility] [address] [place] [id number] [place] [address] Jan, half-way (current) use of anticoagulant s Z79.01 ; Diabetes E11.9 ; Osteoarthritis M19.90 and Breast cancer screening Z12.39 [facility] [address] [place] [address] [id number] [place] [address] Jan, Osteoarthritis M19.90 [facility] [address] [address] Jan, Osteoarthritis M19.90 [facility] [address] [address] Jan, [place] [address] [address] December, Osteoarthritis M19.90 [place] [address] [address] December, Osteoarthritis M19.90 [facility] [place] [address] [id number] [id number] Nov, [facility] [address] [address] Nov, [facility] [address] [address] Nov, [facility] [address] [address] Nov, Diabetes E11.9 [facility] [address] [place] [id number] [place] [address] Nov, [facility] [address] [address] Oct, Osteoarthritis M19.90 [facility] [address] [address] Oct, Osteoarthritis M19.90 ; half-way (curre nt) use of 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 Z79.01 ; Diabetes E11.9 ; Cigarette nicotine dependence without complication F17.210 and Chronic atrial fibrillation I48.2 [place] [address] [address] Aug, [place] [address] [address] Aug, 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 [place] [address] [address] Aug, [place] [id number] [id number] Aug, [place] [address] [address] Aug, [place] [address] [address] Aug, [place] [address] [id number] [place] [id number] Aug, [facility] [address] [place] [id number] Aug Osteoarthritis M19.90 and Essential hypertension I10 [place] [address] [address] Aug, Other urinary incontinence N39.498 [place] [address] [address] Jul, Osteoarthritis M19.90 [place] [address] [address] Jun, Diabetes E11.9 ; Encounter for immunizat ion Z23 ; Osteoarthritis M19.90 ; 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 ; Cigarette nicotine dependence without complication F17.210 ; Acquired hypothyroidism E03.9 ; Morbid obesity, unspecified obesity type E66.01 and Irregular heart beats I49.9 [place] [address] [address] Jun, Osteoarthritis M19.90 [place] [address] [address] May, Osteoarthritis M19.90 [place] [address] [address] May, Urinary incontinence, unspecified type R 32 [place] [address] [address] May, [place] [address] [address] Apr, Osteoarthritis M19.90 [place] [address] [address] Apr, 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 [place] [address] [address] Apr, [place] [address] [address] Apr, Osteoarthritis M19.90 [place] [address] [address] Mar, Diabetes E11.9 ; Hypothyroidism, unspeci fied type E03.9 ; Osteoarthritis M19.90 ; High risk medication use Z79.899 ; Cigarette nicotine dependence without complication F17.210 and Morbid obesity, unspecified obesity type E66.01 [place] [address] [address] Mar, Osteoarthritis M19.90 [place] [address] [address] December, Osteoarthritis M19.90 [place] [address] [address] December, [place] [address] [address] Oct, [place] [address] [address] Oct, [place] [address] [address] Aug, [place] [address] [address] Jul, [facility] [address] [address] Jul, [facility] [address] [address] Jul, Diabetes E11.9 ; Encounter for immunizat ion Z23 ; Abnormal mammogram R92.8 ; Acquired hypothyroidism E03.9 ; High risk medication use Z79.899 ; Osteoarthritis M19.90 and Cigarette nicotine dependence without complication F17.210 [facility] [address] [id number] [place] [address] Jul, [facility] [address] [address] Jun, Abnormal mammogram R92.8 [facility] [address] [address] Apr, [facility] [address] [address] Apr, [facility] [address] [address] Mar, [facility] [address] [address] Mar, 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.61 [facility] [address] [address] Feb, [facility] [address] [address] Jan, [facility] [address] [address] December, [facility] [address] [address] Nov, [facility] [address] [address] Nov, [facility] [address] [address] Oct, [facility] [address] [id number] [place] [address] Oct, [facility] [address] [id number] [place] [address] Oct, [facility] [address] [id number] [place] [address] Oct, [facility] [address] [id number] [place] [address] Oct, [facility] [address] [id number] [place] [address] Oct, [facility] [address] [id number] [place] [address] Sep, [facility] [address] [id number] [place] [address] Sep, [facility] [address] [id number] [place] [address] Sep, [facility] [address] [id number] [place] [address] Sep, [facility] [address] [id number] [place] [address] Aug, [facility] [address] [id number] [place] [address] Aug, [facility] [address] [id number] [place] [address] Aug, [facility] [address] [id number] [place] [address] Aug, [facility] [address] [id number] [place] [address] Aug, [facility] [address] [id number] [place] [address] Aug, [facility] [address] [id number] [place] [address] Jul, [facility] [address] [id number] [place] [address] Jul, [facility] [address] [id number] [place] [address] Jul, [facility] [address] [id number] [place] [address] Jul, [facility] [address] [id number] [place] [address] Jul, [facility] [address] [id number] [place] [address] Jul, [facility] [address] [id number] [place] [address] Jun, [facility] [address] [id number] [place] [address] Jun, [facility] [id number] [place] [address] Jun, [facility] [address] [id number] [place] [address] Jun, [facility] [address] [id number] [place] [address] Jun, [facility] [address] [id number] [place] [address] Jun, [facility] [address] [id number] [place] [address] Jun, [facility] [address] [id number] [place] [address] Jun, [facility] [address] [id number] [place] [address] Jun, [facility] [id number] [place] [address] May, [facility] [address] [id number] [place] [address] May, [facility] [address] [id number] [place] [address] Apr, [facility] [address] [id number] [place] [address] Apr, 2013 [facility] [address] [id number] [place] [address] Apr, 2013 [facility] [address] [facility] [id number] [place] [address] Apr, 2013 [facility] [address] [id number] [place] [address] Apr, 2013 [facility] [address] [id number] [place] [address] Apr, 2013 [facility] [address] [id number] [place] [address] Apr, 2013 [facility] [address] [id number] [place] [address] Apr, 2013 [facility] [address] [id number] [place] [address] Apr, 2013 [facility] [address] [id number] [place] [address] Apr, 2013 [facility] [address] [id number] [place] [address] Mar, [facility] [address] [id number] [place] [address] Mar, [facility] [address] [id number] [place] [address] Mar, [facility] [address] [id number] [place] [address] Mar, [facility] [address] [id number] [place] [address] Mar, [facility] [address] [id number] [place] [address] Mar, [facility] [address] [id number] [place] [address] Feb, [facility] [address] [id number] [place] [address] Feb, [facility] [address] [facility] [id number] [facility] [place] [address] Feb, [facility] [address] [facility] [id number] [facility] [place] [address] Feb, [facility] [address] [facility] [id number] [facility] [place] [address] Jan, [facility] [address] [facility] [id number] [facility] [place] [address] Jan, [facility] [address] [facility] [id number] [facility] [place] [address] Jan, [facility] [address] [facility] [id number] [place] [address] Jan, [facility] [address] [id number] [place] [address] Oct, [facility] [address] [id number] [place] [address] Oct, [facility] [address] [facility] [id number] [place] [address] Sep, [facility] [address] [id number] [place] [address] Sep, [facility] [address] [id number] [place] [address] Sep, [facility] [address] [id number] [place] [address] Sep, [facility] [address] [facility] [id number] [place] [address] Aug, [facility] [address] [facility] [id number] [place] [address] Aug, [facility] [address] [facility] [id number] [place] [address] Aug, [facility] [address] [id number] [place] [address] Aug, [facility] [address] [id number] [place] [address] 30 Jul, 2012 [facility] [address] [id number] [place] [address] 30 Jul, 2013 [facility] [address] [id number] [place] [address] 14 Jul, 2013 [facility] [address] [id number] [place] [address] 14 Jul, 2013 [facility] [address] [id number] [place] [address] 10 Jul, 2013 [facility] [address] [id number] [place] [address] Jul, [facility] [address] [id number] [place] [address] Jun, [facility] [address] [id number] [place] [address] Jun, [facility] [address] [id number] [place] [address] Jun, [facility] [address] [id number] [place] [address] Jun, [facility] [address] [id number] [place] [address] Jun, [facility] [address] [id number] [place] [address] Jun, [facility] [address] [id number] [place] [address] May, [facility] [address] [id number] [place] [address] May, [facility] [address] [id number] [place] [address] May, [facility] [address] [id number] [place] [address] May, [facility] [address] [id number] [place] [address] May, [facility] [address] [facility] [id number] [place] [address] May, [facility] [address] [id number] [place] [address] May, [facility] [address] [id number] [place] [place] [address] May, [facility] [id number] [place] [address] Apr, [facility] [address] [facility] [id number] [place] [address] Apr, [facility] [address] [facility] [id number] [place] [address] Mar, [facility] [address] [facility] [id number] [place] [address] Mar, [facility] [address] [facility] [id number] [place] [address] Mar, [facility] [address] [facility] [id number] [place] [address] Mar, [facility] [address] [facility] [id number] [place] [address] Feb, [facility] [address] [facility] [id number] [place] [address] Jan, [facility] [address] [facility] [id number] [place] [address] December, [facility] [address] [facility] [id number] [place] [address] December, [facility] [address] [facility] [id number] [place] [address] December, [facility] [address] [facility] [id number] [place] [address] Nov, [facility] [address] [facility] [id number] [place] [address] Nov, [facility] [address] [id number] [place] [address] 14 Sep, 2012 [facility] [address] [facility] [id number] [place] [address] 14 Sep, 2012 [facility] [address] [facility] [id number] [place] [address] 14 Sep, 2012 [facility] [address] [facility] [id number] [place] [address] 13 Sep, 2012 [facility] [address] [facility] [id number] [place] [address] 30 Aug, 2012 [facility] [address] [facility] [id number] [place] [address] Aug, [facility] [address] [facility] [id number] [place] [address] 08 Aug, 2012 [facility] [address] [facility] [id number] [place] [address] Aug, [facility] [id number] [place] [address] Jul, [facility] [address] [id number] [place] [address] Jul, [facility] [id number] [place] [address] Jul, [facility] [address] [facility] [id number] [place] [address] Jul, [facility] [id number] [place] [address] Jun, [facility] [address] [facility] [id number] [place] [address] Jun, [facility] [id number] [place] [address] Jun, [facility] [address] [facility] [id number] [place] [address] Jun, [facility] [address] [facility] [id number] [place] [address] May, [facility] [address] [facility] [id number] [place] [address] 18 May, 2012 [facility] [address] [facility] [id number] [place] [address] 10 May, 2012 [facility] [address] [facility] [id number] [place] [address] 10 May, 2012 [facility] [address] [facility] [id number] [place] [address] 08 May, 2012 [facility] [address] [facility] [id number] [place] [address] 10 Apr, 2012 [facility] [address] [facility] [id number] [place] [address] 08 Apr, 2012 [facility] [address] [facility] [id number] [place] [address] 07 Apr, 2012 [facility] [address] [facility] [id number] [place] [address] Apr, [facility] [address] [facility] [id number] [place] [address] Mar, [facility] [address] [facility] [id number] [place] [address] Mar, [facility] [address] [facility] [id number] [place] [address] Feb, [facility] [address] [facility] [id number] [place] [address] Feb, [facility] [address] [facility] [id number] [place] [address] Feb, [facility] [address] [facility] [id number] [place] [address] Jan, [facility] [address] [facility] [id number] [place] [address] Jan, [facility] [address] [facility] [id number] [place] [address] December, [facility] [address] [facility] [id number] [place] [address] December, [facility] [address] [facility] [id number] [place] [address] Nov, [facility] [address] [facility] [id number] [place] [address] Oct, [facility] [address] [facility] [id number] [place] [address] Oct, [facility] [id number] [place] [address] Sep, [facility] [address] [facility] [id number] [place] [address] Sep, [facility] [address] [facility] [id number] [place] [address] Aug, [facility] [address] [facility] [id number] [place] [address] Aug, [facility] [id number] [place] [address] Jul, [facility] [address] [facility] [id number] [place] [address] Jul, [facility] [id number] [place] [address] Jul, [facility] [address] [facility] [id number] [place] [address] Jun, [facility] [id number] [place] [address] Jun, [facility] [address] [facility] [id number] [place] [address] May, [facility] [address] [facility] [id number] [place] [address] May, [facility] [address] [facility] [id number] [place] [address] May, [facility] [address] [facility] [id number] [place] [address] 09 Jul, 2010 [facility] [address] [facility] [id number] [place] [address] 08 Jul, 2010 [facility] [id number] [place] [address] 15 Jun, 2010 [facility] [address] [facility] [id number] [place] [address] May, [facility] [address] [facility] [id number] [place] [address] May, [facility] [id number] [place] [address] Aug, [facility] [id number] [place] [address] Jul, [facility] [id number] [place] [address] Jun, [facility] [id number] [place] [address] Jun, [facility] [id number] [place] [address] Jun, [facility] [id number] [place] [address] Jun, [facility] [id number] [place] [address] Jun, [facility] [address] [facility] [id number] [place] [address] May, [facility] [id number] [place] [address] Sep, IMMUNIZATIONS No Known Immunizations SOCIAL HISTORY [...] History appendectomy Surgical History total knee replacments 2016 and 2017 Hospitalization History bronchitis 2012
--- OUTSIDE RECORDS SUMMARY | 2020-01-28 14:28 | XMS REPORT ---
Author Author Katarina RODRIGUEZ Organization [facility] Address [address] [place] [address] Care Team Providers Care Waiter/Waitress Head Name Role Phone GEORGINA RODRIGUEZ Unavailable PROBLEMS Type Condition ICD9-CM Code WAL47-UF Code Onset Dates Condition S tatus SNOMED Code Problem Osteoarthritis M19.90 Active 78931 5006 Problem Chronic obstructive pulmonary disease, unspecified COPD ty pe J44.9 Active 89247383 Problem Acquired hypothyroidism E03.9 Active 275220360 Problem Cigarette nicotine dependence without complication F17.210 Active 42219258 Problem Diabetes E11.9 Active 257522748 Problem High risk medication use Z79.899 Activ e 800083818 Problem Urinary incontinence, unspecified type R32 Active 842258876 Problem penitentiary (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.01 Active 366545588 Problem Morbid obesity, unspecified obesity type E66.01 Active 025830580 Problem Other chronic pain G89.29 Active 8 4801622 Problem History of cataract surgery Z98.49 Ac tive 243525304 Problem Type 2 diabetes mellitus wit h hyperglycemia, without long-term current use of insulin E11.65 Active 15848447 Problem Encounter for immunization Z23 Act essie 622454922 Problem Irregular heart beats I49.9 Active 055277106 Problem Other urinary incontinence N39.498 Act essie 402399727 Problem Essential hypertension I10 Active 52070231 Problem Chronic atrial fibrillation I48.2 Ac tive [id number] ALLERGIES No Information ENCOUNTERS Encounter Location Date Diagnosis [facility] [id number] [place] [address] Oct, penitentiary (current) use of anticoagulant s Z79.01 [facility] [id number] [place] [address] Oct, 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 [facility] [id number] [place] [address] Sep, [facility] [address] [address] Aug, Osteoarthritis M19.90 [place] [address] [address] Aug, Diabetes E11.9 ; 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 ; Tobacco abuse Z72.0 ; Low back pain M54.5 and Chronic atrial fibrillation I48.2 [place] [address] [address] Aug, Diabetes E11.9 [place] [address] [address] Aug, [facility] [address] [facility] [id number] [address] [place] [address] Aug, Acute non-recurrent pansinus itis J01.40 and Non- recurrent acute suppurative otitis media of left ear without spontaneous rupture of tympanic membrane H66.002 [place] [address] [address] Aug, [place] [address] [address] Aug, penitentiary (current) use of anticoagulant s Z79.01 [place] [address] [address] Aug, penitentiary (current) use of anticoagulant s Z79.01 [place] [address] [address] Jul, Osteoarthritis M19.90 [place] [address] [address] Jul, Osteoarthritis M19.90 [place] [address] [address] Jun, [place] [address] [address] Jun, Chronic atrial fibrillation I48.2 [facility] [address] [address] Jun, Osteoarthritis M19.90 [facility] [address] [address] Jun, Chronic atrial fibrillation I48.2 [facility] [address] [address] May, Osteoarthritis M19.90 [facility] [address] [address] May, Chronic atrial fibrillation I48.2 [facility] [address] [address] Apr, Osteoarthritis M19.90 [facility] [address] [address] Mar, Chronic atrial fibrillation I48.2 [facility] [address] [address] Mar, Chronic atrial fibrillation I48.2 [facility] [address] [address] Mar, Osteoarthritis M19.90 [facility] [address] [address] Mar, Chronic atrial fibrillation I48.2 [facility] [address] [address] Mar, Type 2 diabetes mellitus with hyperglyce emani, without long-term current use of insulin E11.65 ; Chronic atrial fibrillation I48.2 and Morbid obesity E66.01 [facility] [address] [address] Feb, Osteoarthritis M19.90 [facility] [address] [address] Feb, Chronic atrial fibrillation I48.2 [facility] [address] [address] Feb, Hyperglycemia R73.9 ; Diabetes E11.9 ; M orbid obesity E66.01 ; Acquired hypothyroidism E03.9 ; Osteoarthritis M19.90 and High risk medication use Z79.899 [facility] [address] [address] Feb, Chronic atrial fibrillation I48.2 [facility] [address] [address] Jan, Osteoarthritis M19.90 [facility] [address] [address] Jan, Chronic atrial fibrillation I48.2 [place] [address] [address] Jan, Chronic atrial fibrillation I48.2 [place] [address] [address] Jan, Chronic atrial fibrillation I48.2 [place] [address] [address] Jan, 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 [place] [address] [address] December, [place] [address] [address] December, [place] [address] [address] December, Osteoarthritis M19.90 [facility] [address] [address] Nov, [place] [address] [address] Nov, Osteoarthritis M19.90 [facility] [address] [address] Oct, Osteoarthritis M19.90 [facility] [address] [address] Sep, Osteoarthritis M19.90 [place] [address] [address] Sep, penitentiary (current) use of anticoagulant s Z79.01 ; BMI 45.0-49.9, adult Z68.42 ; Diabetes E11.9 ; Chronic atrial fibrillation I48.2 and Chronic obstructive pulmonary disease, unspecified COPD type J44.9 [place] [address] [address] Sep, Diabetes E11.9 ; 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 ; Chronic atrial fibrillation I48.2 ; Chronic obstructive pulmonary disease, unspecified COPD type J44.9 and BMI 45.0-49.9, adult Z68.42 [place] [address] [address] Aug, Osteoarthritis M19.90 [place] [address] [address] Aug, [place] [address] [address] Aug, penitentiary (current) use of anticoagulant s Z79.01 ; BMI 45.0-49.9, adult Z68.42 ; Diabetes E11.9 and Chronic atrial fibrillation I48.2 [facility] [address] [facility] [id number] [address] [place] [address] Aug, [place] [address] [address] Jul, Osteoarthritis M19.90 [place] [address] [address] Jun, Osteoarthritis M19.90 [place] [address] [address] Jun, 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 [place] [address] [address] Jun, Chronic atrial fibrillation I48.2 and Lo ng term (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.01 [place] [address] [address] Jun, Osteoarthritis M19.90 [place] [address] [address] May, Encounter for immunization Z23 [place] [address] [address] May, 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 [place] [address] [address] May, Osteoarthritis M19.90 [place] [address] [address] May, [place] [address] [address] May, Diabetes E11.9 ; 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 ; Chronic atrial fibrillation I48.2 ; BMI 45.0-49.9, adult Z68.42 ; Osteoarthritis M19.90 ; Low back pain M54.5 and Other chronic pain G89.29 [place] [address] [address] 20 Apr, 2018 Chronic atrial fibrillation I48.2 [place] [address] [address] 13 Apr, 2018 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 [place] [address] [address] 07 Apr, 2018 Osteoarthritis M19.90 [place] [address] [address] 04 Apr, 2018 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 and Chronic atrial fibrillation I48.2 [place] [address] [address] Mar, Osteoarthritis M19.90 [place] [address] [address] Feb, Osteoarthritis M19.90 [facility] [address] [address] Jan, Osteoarthritis M19.90 [facility] [address] [address] December, [facility] [address] [address] December, Osteoarthritis M19.90 [facility] [address] [address] Nov, Diabetes E11.9 ; penitentiary (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.01 ; Acquired hypothyroidism E03.9 ; Cigarette nicotine dependence without complication F17.210 ; Osteoarthritis M19.90 ; BMI 45.0-49.9, adult Z68.42 and Chronic atrial fibrillation I48.2 [place] [address] [address] Nov, Osteoarthritis M19.90 [facility] [address] [address] Oct, Osteoarthritis M19.90 [place] [address] [address] Oct, penitentiary (current) use of anticoagulant s Z79.01 [place] [address] [address] Sep, Osteoarthritis M19.90 [place] [address] [address] Sep, [facility] [address] [address] Aug, Osteoarthritis M19.90 [place] [address] [address] Jul, Osteoarthritis M19.90 [facility] [address] [address] Jul, Osteoarthritis M19.90 [facility] [address] [address] Jun, Diabetes E11.9 ; Encounter for immunizat ion Z23 ; 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 and Chronic atrial fibrillation I48.2 [place] [address] [address] Mar, Chronic atrial fibrillation I48.2 and Lo ng term (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.01 [place] [address] [address] Mar, 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 [place] [address] [address] Mar, 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 [place] [address] [address] Mar, Osteoarthritis M19.90 [place] [address] [address] Feb, Encounter for screening mammogram for ma lignant neoplasm of breast Z12.31 [facility] [address] [address] Feb, Osteoarthritis M19.90 [facility] [address] [address] Jan, [facility] [address] [address] Jan, penitentiary (current) use of anticoagulant s Z79.01 ; Diabetes E11.9 ; Osteoarthritis M19.90 and Breast cancer screening Z12.39 [facility] [address] [address] Jan, Osteoarthritis M19.90 [facility] [address] [address] Jan, Osteoarthritis M19.90 [facility] [address] [address] Jan, [facility] [address] [address] December, Osteoarthritis M19.90 [facility] [address] [address] December, Osteoarthritis M19.90 [facility] [address] [id number] [id number] Nov, [facility] [address] [address] Nov, [facility] [address] [address] Nov, [facility] [address] [address] Nov, Diabetes E11.9 [facility] [address] [address] Nov, [facility] [address] [address] Oct, Osteoarthritis M19.90 [place] [address] [address] Oct, Osteoarthritis M19.90 ; penitentiary (curre nt) use of 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 Z79.01 ; Diabetes E11.9 ; Cigarette nicotine dependence without complication F17.210 and Chronic atrial fibrillation I48.2 [place] [address] [address] Aug, [place] [address] [address] Aug, 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 [place] [address] [address] Aug, [place] [address] [id number] [id number] Aug, [place] [address] [address] Aug, [place] [address] [address] Aug, [address] [id number] [place] [id number] Aug, [place] [address] [place] [id number] Aug Osteoarthritis M19.90 and Essential hypertension I10 [place] [address] [address] Aug, Other urinary incontinence N39.498 [place] [address] [address] Jul, Osteoarthritis M19.[address] [address] Jun, Diabetes E11.9 ; Encounter for immunizat ion Z23 ; Osteoarthritis M19.90 ; penitentiary (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.01 ; Cigarette nicotine dependence without complication F17.210 ; Acquired hypothyroidism E03.9 ; Morbid obesity, unspecified obesity type E66.01 and Irregular heart beats I49.9 [place] [address] [address] Jun, Osteoarthritis M19.90 [place] [address] [address] May, Osteoarthritis M19.90 [place] [address] [address] May, Urinary incontinence, unspecified type R 32 [place] [address] [address] May, [place] [address] [address] Apr, Osteoarthritis M19.90 [place] [address] [address] Apr, penitentiary (current) use of anticoagulant s Z79.01 [place] [address] [address] Apr, [place] [address] [address] Apr, Osteoarthritis M19.90 [place] [address] [address] Mar, Diabetes E11.9 ; Hypothyroidism, unspeci fied type E03.9 ; Osteoarthritis M19.90 ; High risk medication use Z79.899 ; Cigarette nicotine dependence without complication F17.210 and Morbid obesity, unspecified obesity type E66.01 [place] [address] [address] Mar, Osteoarthritis M19.90 [place] [address] [address] December, Osteoarthritis M19.90 [place] [address] [address] December, [place] [address] [address] Oct, [facility] [id number] [place] [address] Oct, [facility] [id number] [place] [address] Aug, [facility] [id number] [place] [address] Jul, [facility] [address] [address] Jul, [facility] [id number] [place] [address] Jul, Diabetes E11.9 ; Encounter for immunizat ion Z23 ; Abnormal mammogram R92.8 ; Acquired hypothyroidism E03.9 ; High risk medication use Z79.899 ; Osteoarthritis M19.90 and Cigarette nicotine dependence without complication F17.210 [place] [id number] [place] [address] Jul, [facility] [id number] [place] [address] Jun, Abnormal mammogram R92.8 [place] [address] [address] Apr, [facility] [address] [address] Apr, [place] [address] [address] Mar, [facility] [address] [address] Mar, 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 use of supervisor long 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 ant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 V58.61 [facility] [address] [address] Feb, [facility] [address] [address] Jan, [facility] [address] [address] December, [facility] [address] [id number] [place] [address] Nov, [facility] [address] [id number] [place] [address] Nov, [facility] [address] [id number] [place] [address] Oct, [facility] [address] [id number] [place] [address] Oct, [facility] [address] [id number] [place] [address] Oct, [facility] [address] [id number] [place] [address] Oct, [facility] [address] [id number] [place] [address] Oct, [facility] [address] [id number] [place] [address] Oct, [facility] [address] [id number] [place] [address] Sep, [facility] [address] [id number] [place] [address] Sep, [facility] [address] [id number] [place] [address] Sep, [facility] [address] [id number] [place] [address] Sep, [facility] [address] [id number] [place] [address] Aug, [facility] [address] [id number] [place] [address] Aug, [facility] [address] [id number] [place] [address] Aug, [facility] [address] [id number] [place] [address] Aug, [facility] [address] [id number] [place] [address] Aug, [facility] [address] [id number] [place] [address] Aug, [facility] [address] [id number] [place] [address] Jul, [facility] [address] [id number] [place] [address] Jul, [facility] [address] [id number] [place] [address] Jul, [facility] [address] [id number] [place] [address] Jul, [facility] [address] [id number] [place] [address] Jul, [facility] [address] [id number] [place] [address] Jul, [facility] [address] [id number] [place] [address] Jun, [facility] [address] [id number] [place] [address] Jun, [facility] [address] [id number] [place] [address] Jun, [facility] [address] [id number] [place] [address] Jun, [facility] [address] [id number] [place] [address] Jun, [facility] [address] [id number] [place] [address] Jun, [facility] [address] [id number] [place] [address] Jun, [facility] [address] [id number] [place] [address] Jun, [facility] [address] [id number] [place] [address] Jun, [facility] [address] [id number] [place] [address] May, 2013 [facility] [address] [id number] [place] [address] May, [facility] [address] [facility] [id number] [place] [address] Apr, 2013 [facility] [address] [facility] [id number] [place] [address] Apr, 2013 [facility] [address] [facility] [id number] [place] [address] Apr, 2013 [facility] [address] [id number] [place] [address] Apr, 2013 [facility] [address] [id number] [place] [address] Apr, 2013 [facility] [address] [id number] [place] [address] Apr, 2013 [facility] [address] [id number] [place] [address] Apr, 2013 [facility] [address] [facility] [id number] [place] [address] Apr, [facility] [address] [id number] [place] [address] Apr, [facility] [address] [id number] [place] [address] Apr, [facility] [address] [id number] [place] [address] Mar, [facility] [address] [id number] [place] [address] Mar, [facility] [address] [id number] [place] [address] Mar, [facility] [address] [id number] [place] [address] Mar, [facility] [address] [id number] [place] [address] Mar, [facility] [address] [id number] [place] [address] Mar, [facility] [address] [id number] [place] [address] Feb, [facility] [address] [id number] [place] [address] Feb, [facility] [address] [id number] [place] [address] Feb, [facility] [address] [facility] [id number] [place] [address] Feb, [facility] [address] [id number] [place] [address] Jan, [facility] [address] [id number] [place] [address] Jan, [facility] [address] [id number] [place] [address] Jan, [facility] [address] [id number] [place] [address] Jan, [facility] [address] [id number] [place] [address] Oct, [facility] [address] [id number] [place] [address] Oct, [facility] [address] [id number] [place] [address] Sep, [facility] [address] [id number] [place] [address] Sep, [facility] [address] [id number] [place] [address] Sep, [facility] [address] [id number] [place] [address] Sep, [facility] [address] [id number] [place] [address] Aug, [facility] [address] [id number] [place] [address] Aug, [facility] [address] [id number] [place] [address] Aug, [facility] [address] [id number] [place] [address] Aug, [facility] [address] [id number] [place] [address] Jul, [facility] [address] [id number] [place] [address] Jul, [facility] [address] [id number] [place] [address] Jul, [facility] [address] [id number] [place] [address] Jul, [facility] [address] [id number] [place] [address] Jul, [facility] [address] [id number] [place] [address] Jul, [facility] [address] [id number] [place] [address] Jun, [facility] [address] [id number] [place] [address] Jun, [facility] [address] [id number] [place] [address] Jun, [facility] [address] [id number] [place] [address] Jun, [facility] [address] [id number] [place] [address] Jun, [facility] [address] [id number] [place] [address] Jun, [facility] [address] [id number] [place] [address] May, [facility] [address] [id number] [place] [address] May, [facility] [address] [facility] [id number] [place] [address] May, [facility] [address] [id number] [place] [address] May, [facility] [address] [id number] [place] [address] May, [facility] [address] [id number] [place] [address] May, [facility] [facility] [address] [id number] [place] [address] May, [facility] [address] [id number] [place] [address] May, [facility] [address] [id number] [place] [address] Apr, [facility] [address] [id number] [place] [address] Apr, [facility] [address] [id number] [place] [address] Mar, [facility] [address] [id number] [place] [address] Mar, [facility] [address] [id number] [place] [address] Mar, [facility] [address] [id number] [place] [address] Mar, [facility] [address] [id number] [place] [address] Feb, [facility] [address] [id number] [place] [address] Jan, [facility] [address] [id number] [place] [address] December, [facility] [address] [id number] [place] [address] December, [facility] [address] [id number] [place] [address] December, [facility] [address] [id number] [place] [address] Nov, [facility] [address] [id number] [place] [address] Nov, [facility] [address] [id number] [place] [address] Sep, [facility] [address] [id number] [place] [address] Sep, [facility] [address] [id number] [place] [address] Sep, [facility] [address] [id number] [place] [address] Sep, [facility] [address] [id number] [place] [address] Aug, [facility] [address] [id number] [place] [address] Aug, [facility] [address] [id number] [place] [address] Aug, [facility] [address] [id number] [place] [address] Aug, [facility] [address] [id number] [place] [address] Jul, [facility] [address] [id number] [place] [address] Jul, [facility] [address] [id number] [place] [address] Jul, [facility] [address] [id number] [place] [address] Jul, [facility] [address] [id number] [place] [address] Jun, [facility] [address] [id number] [place] [address] Jun, [facility] [address] [id number] [place] [address] 08 Jun, 2012 [facility] [address] [id number] [place] [address] Jun, [facility] [address] [id number] [place] [address] May, [facility] [address] [id number] [place] [address] May, [facility] [address] [id number] [place] [address] May, [facility] [address] [id number] [place] [address] May, [facility] [address] [id number] [place] [address] May, [facility] [address] [id number] [place] [address] Apr, [facility] [address] [id number] [place] [address] Apr, [facility] [address] [id number] [place] [address] Apr, [facility] [address] [id number] [place] [address] Apr, [facility] [address] [id number] [place] [address] Mar, [facility] [address] [id number] [place] [address] Mar, [facility] [address] [id number] [place] [address] Feb, [facility] [address] [id number] [place] [address] Feb, [facility] [address] [id number] [place] [address] Feb, [facility] [address] [id number] [place] [address] Jan, [facility] [address] [id number] [place] [address] Jan, [facility] [address] [id number] [place] [address] December, [facility] [address] [id number] [place] [address] December, [facility] [id number] [place] [address] Nov, [facility] [address] [id number] [place] [address] Oct, [facility] [address] [id number] [place] [address] Oct, [facility] [address] [id number] [place] [address] Sep, [facility] [id number] [place] [address] Sep, [facility] [address] [id number] [place] [address] Aug, [facility] [id number] [place] [address] Aug, [facility] [id number] [place] [address] Jul, [facility] [id number] [place] [address] Jul, [facility] [address] [id number] [place] [address] Jul, [facility] [address] [id number] [place] [address] Jun, [facility] [address] [id number] [place] [address] Jun, [facility] [address] [id number] [place] [address] May, [facility] [address] [id number] [place] [address] May, [facility] [id number] [place] [address] May, [facility] [id number] [place] [address] Jul, [facility] [id number] [place] [address] Jul, [facility] [id number] [place] [address] Jun, [facility] [id number] [place] [address] May, [facility] [id number] [place] [address] May, [facility] [id number] [place] [address] Aug, [facility] [id number] [place] [address] Jul, [facility] [id number] [place] [address] Jun, [facility] [id number] [place] [address] Jun, [facility] [id number] [place] [address] Jun, [facility] [id number] [place] [address] Jun, [facility] [id number] [place] [address] Jun, [facility] [id number] [place] [address] May, [facility] [id number] [place] [address] Sep, IMMUNIZATIONS No Known Immunizations SOCIAL HISTORY [...] replacments 2015 and 2017 Hospitalization History bronchitis 2012
--- OUTSIDE RECORDS SUMMARY | 2020-01-28 14:28 | XMS REPORT ---
Author Author Katarina RODRIGUEZ Organization [facility] Address [address] [place] [address] Care Team Providers Care Director Service Name Role Phone GEORGINA RODRIGUEZ Unavailable PROBLEMS Type Condition ICD9-CM Code SRX85-KI Code Onset Dates Condition S tatus SNOMED Code Problem Osteoarthritis M19.90 Active 02736 5006 Problem Chronic obstructive pulmonary disease, unspecified COPD ty pe J44.9 Active 05786839 Problem Acquired hypothyroidism E03.9 Active 956858683 Problem Cigarette nicotine dependence without complication F17.210 Active 77446026 Problem Diabetes E11.9 Active 097638592 Problem High risk medication use Z79.899 Activ e 814455661 Problem Urinary incontinence, unspecified type R32 Active 901624787 Problem shelter (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.01 Active 215958047 Problem Morbid obesity, unspecified obesity type E66.01 Active 341493699 Problem Other chronic pain G89.29 Active 8 8393342 Problem History of cataract surgery Z98.49 Ac tive 407890502 Problem Type 2 diabetes mellitus wit h hyperglycemia, without long-term current use of insulin E11.65 Active 79943344 Problem Encounter for immunization Z23 Act essie 278100060 Problem Irregular heart beats I49.9 Active 392794618 Problem Other urinary incontinence N39.498 Act essie 889235401 Problem Essential hypertension I10 Active 77576856 Problem Chronic atrial fibrillation I48.2 Ac tive 862559578 ALLERGIES No Information ENCOUNTERS Encounter Location Date Diagnosis [facility] [id number] [place] [address] Oct, shelter (current) use of anticoagulant s Z79.01 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 [id number] [place] [address] Sep, 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 [id number] [address] [place] [address] Aug, Acute non-recurrent pansinus itis J01.40 and Non- recurrent acute suppurative otitis media of left ear without spontaneous rupture of tympanic membrane H66.002 [place] [address] [address] Aug, [address] [address] [address] Aug, shelter (current) use of anticoagulant s Z79.01 [place] [address] [address] Aug, shelter (current) use of anticoagulant s Z79.01 [place] [address] [address] Jul, Osteoarthritis M19.90 [place] [address] [address] Jul, Osteoarthritis M19.90 [address] [address] [address] Jun, [place] [address] [address] Jun, Chronic atrial fibrillation I48.2 [facility] [address] [address] Jun, [address]90 [facility] [address] [address] Jun, Chronic atrial fibrillation I48.2 [facility] [address] [address] May, Oste[address] M19.90 [facility] [address] [address] May, Chronic atrial fibrillation I48.2 [facility] [address] [address] Apr, Osteoarthritis M19.90 [facility] [address] [address] Mar, Chronic atrial fibrillation I48.2 [facility] [address] [address] Mar, Chronic atrial fibrillation I48.2 [facility] [address] [address] Mar, Osteoarthritis M19.90 [facility] [address] [address] Mar, Chronic atrial fibrillation I48.2 [facility] [address] [address] Mar, Type 2 diabetes mellitus with hyperglyce emani, without long-term current use of insulin E11.65 ; Chronic atrial fibrillation I48.2 and Morbid obesity E66.01 [facility] [address] [address] Feb, Osteoarthritis M19.90 [facility] [address] [address] Feb, Chronic atrial fibrillation I48.2 [facility] [address] [address] Feb, Hyperglycemia R73.9 ; Diabetes E11.9 ; M orbid obesity E66.01 ; Acquired hypothyroidism E03.9 ; Osteoarthritis M19.90 and High risk medication use Z79.899 [facility] [address] [address] Feb, Chronic atrial fibrillation I48.2 [facility] [address] [address] Jan, Osteoarthritis M19.90 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 [address] [address] Nov, [place] [address] [address] Nov, Osteoarthritis M19.90 [facility] [address] [address] Oct, Osteoarthritis M19.90 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 [address] [address] [address] Jun, Chronic atrial fibrillation I48.2 and Lo ng term (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.01 [place] [address] [address] Jun, Osteoarthritis M19.90 [place] [address] [address] May, Encounter for immunization Z23 [place] [address] [address] May, 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 [place] [address] [address] May, Osteoarthritis M19.90 [place] [address] [address] May, [place] [address] [address] May, Diabetes E11.9 ; 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 ; Chronic atrial fibrillation I48.2 ; BMI 45.0-49.9, adult Z68.42 ; Osteoarthritis M19.90 ; Low back pain M54.5 and Other chronic pain G89.29 [place] [address] [address] 20 Apr, 2018 Chronic atrial fibrillation I48.2 [place] [address] [address] 13 Apr, 2018 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 [address] [address] Jan, Osteoarthritis M19.90 [facility] [address] [address] December, [facility] [address] [address] December, Osteoarthritis M19.90 [facility] [address] [address] Nov, Diabetes E11.9 ; shelter (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.01 ; Acquired hypothyroidism E03.9 ; Cigarette nicotine dependence without complication F17.210 ; Osteoarthritis M19.90 ; BMI 45.0-49.9, adult Z68.42 and Chronic atrial fibrillation I48.2 [address] [address] [address] Nov, Osteoarthritis M19.90 [facility] [address] [address] Oct, Osteoarthritis M19.90 [address] [address] [address] Oct, shelter (current) use of anticoagulant s Z79.01 [address] [address] [address] Sep, Osteoarthritis M19.90 [address] [address] [address] Sep, [facility] [address] [address] Aug, Osteoarthritis M19.90 [address] [address] [address] Jul, Osteoarthritis M19.90 [facility] [address] [address] Jul, Osteoarthritis M19.90 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 ; Chronic atrial fibrillation I48.2 ; Osteoarthritis M19.90 ; Tobacco abuse Z72.0 and Bug bite, initial encounter W57.XXXA [address] [address] May, Osteoarthritis M19.90 [address] [address] Apr, Osteoarthritis M19.90 [address] [address] [address] Mar, Chronic atrial fibrillation I48.2 [address] [address] [address] Mar, [address] [address] [address] Mar, Osteoarthritis M19.90 [address] [address] [address] Mar, 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 and Chronic atrial fibrillation I48.2 [address] [address] [address] Mar, Chronic atrial fibrillation I48.2 and Lo ng term (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.01 [address] [address] [address] Mar, 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 [address] [address] Feb, Osteoarthritis M19.90 [facility] [address] [address] Jan, [facility] [address] [address] Jan, shelter (current) use of anticoagulant s Z79.01 ; Diabetes E11.9 ; Osteoarthritis M19.90 and Breast cancer screening Z12.39 [facility] [address] [address] Jan, Osteoarthritis M19.90 [facility] [address] [address] Jan, Osteoarthritis M19.90 [facility] [address] [address] Jan, [facility] [address] [address] December, Osteoarthritis M19.90 [facility] [address] [address] December, Osteoarthritis M19.90 [facility] [address] [id number] [id number] Nov, [facility] [address] [address] Nov, [facility] [address] [address] Nov, [facility] [address] [address] Nov, Diabetes E11.9 [facility] [address] [address] Nov, 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 [address] [address] Aug, [address] [id number] [place] [id number] Aug, [address] [address] Aug, [address] [address] Aug, [address] [id number] [place] [id number] Aug, [employer] [address] [id number] Aug Osteoarthritis M19.90 and Essential hypertension I10 [place] [address] [address] Aug, Other urinary incontinence N39.498 [address] [address] [address] Jul, Osteoarthritis M19.[address] [address] Jun, Diabetes E11.9 ; Encounter for immunizat ion Z23 ; Osteoarthritis M19.90 ; shelter (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.01 ; Cigarette nicotine dependence without complication F17.210 ; Acquired hypothyroidism E03.9 ; Morbid obesity, unspecified obesity type E66.01 and Irregular heart beats I49.9 [address] [address] [address] Jun, Osteoarthritis M19.90 [address] [address] [address] May, Osteoarthritis M19.90 [address] [address] [address] May, Urinary incontinence, unspecified type R 32 [address] [address] [address] May, [address] [address] [address] Apr, Osteoarthritis M19.90 [address] [address] [address] Apr, shelter (current) use of anticoagulant s Z79.01 [address] [address] [address] Apr, [address] [address] [address] Apr, Osteoarthritis M19.90 [address] [address] [address] Mar, Diabetes E11.9 ; Hypothyroidism, unspeci fied type E03.9 ; Osteoarthritis M19.90 ; High risk medication use Z79.899 ; Cigarette nicotine dependence without complication F17.210 and Morbid obesity, unspecified obesity type E66.01 [address] [address] [address] Mar, Osteoarthritis M19.90 [address] [address] [address] December, Osteoarthritis M19.90 [address] [address] [address] December, [address] [address] [address] Oct, [facility] [id number] [place] [address] Oct, [facility] [id number] [place] [address] Aug, [facility] [id number] [place] [address] Jul, [facility] [address] [address] Jul, [facility] [id number] [place] [address] Jul, Diabetes E11.9 ; Encounter for immunizat ion Z23 ; Abnormal mammogram R92.8 ; Acquired hypothyroidism E03.9 ; High risk medication use Z79.899 ; Osteoarthritis M19.90 and Cigarette nicotine dependence without complication F17.210 [address] [id number] [place] [address] Jul, [facility] [id number] [place] [address] Jun, Abnormal mammogram R92.8 [address] [address] [address] Apr, [facility] [address] [address] Apr, [address] [address] [address] Mar, 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 [address] [address] Feb, [facility] [address] [address] Jan, [facility] [address] [address] December, [facility] [address] [id number] [place] [address] Nov, [facility] [address] [id number] [place] [address] Nov, [facility] [address] [id number] [place] [address] Oct, [facility] [address] [id number] [place] [address] Oct, [facility] [address] [id number] [place] [address] Oct, [facility] [address] [id number] [place] [address] Oct, [facility] [address] [id number] [place] [address] Oct, [facility] [address] [id number] [place] [address] Oct, [facility] [address] [id number] [place] [address] Sep, [facility] [address] [id number] [place] [address] Sep, [facility] [address] [id number] [place] [address] Sep, [facility] [address] [id number] [place] [address] Sep, [facility] [address] [id number] [place] [address] Aug, [facility] [address] [id number] [place] [address] Aug, [facility] [address] [id number] [place] [address] Aug, [facility] [address] [id number] [place] [address] Aug, [facility] [address] [id number] [place] [address] Aug, [facility] [address] [id number] [place] [address] Aug, [facility] [address] [id number] [place] [address] Jul, [facility] [address] [id number] [place] [address] Jul, [facility] [address] [id number] [place] [address] Jul, [facility] [address] [id number] [place] [address] Jul, [facility] [address] [id number] [place] [address] Jul, [facility] [address] [id number] [place] [address] Jul, [facility] [address] [id number] [place] [address] Jun, [facility] [address] [id number] [place] [address] Jun, [facility] [address] [id number] [place] [address] Jun, [facility] [address] [id number] [place] [address] Jun, [facility] [address] [id number] [place] [address] Jun, [facility] [address] [id number] [place] [address] Jun, [facility] [address] [id number] [place] [address] Jun, [facility] [address] [id number] [place] [address] Jun, [facility] [address] [id number] [place] [address] Jun, [facility] [address] [id number] [place] [address] May, 2013 [facility] [address] [id number] [place] [address] May, [facility] [address] [facility] [id number] [place] [address] Apr, 2013 [facility] [address] [facility] [id number] [place] [address] Apr, 2013 [facility] [address] [facility] [id number] [place] [address] Apr, 2013 [facility] [address] [id number] [place] [address] Apr, 2013 [facility] [address] [id number] [place] [address] Apr, 2013 [facility] [address] [id number] [place] [address] Apr, 2013 [facility] [address] [id number] [place] [address] Apr, 2013 [facility] [address] [facility] [facility] [id number] [place] [address] Apr, [facility] [address] [id number] [place] [address] Apr, [facility] [address] [id number] [place] [address] Apr, [facility] [address] [id number] [place] [address] Mar, [facility] [address] [id number] [place] [address] Mar, [facility] [address] [id number] [place] [address] Mar, [facility] [address] [id number] [place] [address] Mar, [facility] [address] [id number] [place] [address] Mar, [facility] [address] [id number] [place] [address] Mar, [facility] [address] [id number] [place] [address] Feb, [facility] [address] [id number] [place] [address] Feb, [facility] [address] [id number] [place] [address] Feb, [facility] [address] [facility] [id number] [place] [address] Feb, [facility] [address] [id number] [place] [address] Jan, [facility] [address] [id number] [place] [address] Jan, [facility] [address] [id number] [place] [address] Jan, [facility] [address] [id number] [place] [address] Jan, [facility] [address] [id number] [place] [address] Oct, [facility] [address] [id number] [place] [address] Oct, [facility] [address] [id number] [place] [address] Sep, [facility] [address] [id number] [place] [address] Sep, [facility] [address] [id number] [place] [address] Sep, [facility] [address] [id number] [place] [address] Sep, [facility] [address] [id number] [place] [address] Aug, [facility] [address] [id number] [place] [address] Aug, [facility] [address] [id number] [place] [address] Aug, [facility] [address] [id number] [place] [address] Aug, [facility] [address] [id number] [place] [address] Jul, [facility] [address] [id number] [place] [address] Jul, [facility] [address] [id number] [place] [address] Jul, [facility] [address] [id number] [place] [address] Jul, [facility] [address] [id number] [place] [address] Jul, [facility] [address] [id number] [place] [address] Jul, [facility] [address] [id number] [place], [place] [address] Jun, [facility] [address] [id number] [place] [address] Jun, [facility] [address] [id number] [place] [address] Jun, [facility] [address] [id number] [place] [address] Jun, [facility] [address] [id number] [place] [address] Jun, [facility] [address] [id number] [place] [address] Jun, [facility] [address] [id number] [place] [address] May, [facility] [address] [id number] [place] [address] May, [facility] [address] [facility] [id number] [place] [address] May, [facility] [address] [id number] [place] [address] May, [facility] [address] [id number] [place] [address] May, [facility] [address] [id number] [place] [address] May, [facility] [address] [id number] [place] [address] May, [facility] [address] [id number] [place] [address] May, [facility] [address] [id number] [place] [address] Apr, [facility] [address] [id number] [place] [address] Apr, [facility] [address] [id number] [place] [address] Mar, [facility] [address] [id number] [place] [address] Mar, [facility] [address] [id number] [place] [address] Mar, [facility] [address] [id number] [place] [address] Mar, [facility] [address] [id number] [place] [address] Feb, [facility] [address] [id number] [place] [address] Jan, [facility] [address] [id number] [place] [address] December, [facility] [address] [id number] [place] [address] December, [facility] [address] [id number] [place] [address] December, [facility] [address] [id number] [place] [address] Nov, [facility] [address] [id number] [place] [address] Nov, [facility] [address] [id number] [place] [address] Sep, [facility] [address] [id number] [place] [address] Sep, [facility] [address] [id number] [place] [address] Sep, [facility] [address] [id number] [place] [address] Sep, [facility] [address] [id number] [place] [address] Aug, [facility] [address] [id number] [place] [address] Aug, [facility] [address] [id number] [place] [address] Aug, [facility] [address] [id number] [place] [address] Aug, [facility] [address] [id number] [place] [address] Jul, [facility] [address] [id number] [place] [address] Jul, [facility] [address] [id number] [place] [address] Jul, [facility] [address] [id number] [place] [address] Jul, [facility] [address] [id number] [place] [address] Jun, [facility] [address] [id number] [place] [address] Jun, [facility] [address] [id number] [place] [address] 08 Jun, 2012 [facility] [address] [id number] [place] [address] Jun, [facility] [address] [id number] [place] [address] May, [facility] [address] [id number] [place] [address] May, [facility] [address] [id number] [place] [address] May, [facility] [address] [id number] [place] [address] May, [facility] [address] [id number] [place] [address] May, [facility] [address] [id number] [place] [address] Apr, [facility] [address] [id number] [place] [address] Apr, [facility] [address] [id number] [place] [address] Apr, [facility] [address] [id number] [place] [address] Apr, [facility] [address] [id number] [place] [address] Mar, [facility] [address] [id number] [place] [address] Mar, [facility] [address] [id number] [place] [address] Feb, [facility] [address] [id number] [place] [address] Feb, [facility] [address] [id number] [place] [address] Feb, [facility] [address] [id number] [place] [address] Jan, [facility] [address] [id number] [place] [address] Jan, [facility] [address] [id number] [place] [address] December, [facility] [address] [id number] [place] [address] December, [facility] [id number] [place] [address] Nov, [facility] [address] [id number] [place] [address] Oct, [facility] [address] [id number] [place] [address] Oct, [facility] [address] [id number] [place] [address] Sep, [facility] [id number] [place] [address] Sep, [facility] [address] [id number] [place] [address] Aug, [facility] [id number] [place] [address] Aug, [facility] [id number] [place] [address] Jul, [facility] [id number] [place] [address] Jul, [facility] [address] [id number] [place] [address] Jul, [facility] [address] [id number] [place] [address] Jun, [facility] [address] [id number] [place] [address] Jun, [facility] [address] [id number] [place] [address] May, [facility] [address] [id number] [place] [address] May, [facility] [address] [id number] [place] [address] May, [facility] [id number] [place] [address] Jul, [facility] [id number] [place] [address] Jul, [facility] [id number] [place] [address] Jun, [facility] [address] [id number] [place] [address] May, [facility] [id number] [place] [address] May, [facility] [id number] [place] [address] Aug, [facility] [id number] [place] [address] Jul, [facility] [id number] [place] [address] Jun, [facility] [id number] [place] [address] Jun, [facility] [id number] [place] [address] Jun, [facility] [id number] [place] [address] Jun, [facility] [id number] [place] [address] Jun, [facility] [id number] [place] [address] May, [facility] [id number] [place] [address] Sep, IMMUNIZATIONS No Known Immunizations SOCIAL HISTORY Never Assessed REASON FOR VISIT PLAN OF CARE VITAL SIGNS Height 64 in 2012-12-14 Weight 277.36 lbs 2012-12-14 Temperature 97.8 degrees Fahrenheit 2012-12-14 Heart Rate 78 bpm 2012-12-14 Respiratory Rate 18 2012-12-14 Blood pressure systolic 125 mmHg 2012-12-14 Blood pressure diastolic 75 mmHg 2012-12-14 MEDICATIONS Unknown Medications RESULTS No Results PROCEDURES [...]
--- OUTSIDE RECORDS SUMMARY | 2020-01-28 14:29 | XMS REPORT ---
Author Author Katarina RODRIGUEZ Organization [facility] Address [address] [place] [address] Care Team Providers Care Etl Database Developer Name Role Phone GEORGINA RODRIGUEZ Unavailable PROBLEMS Type Condition ICD9-CM Code [id number] Code Onset Dates Condition S tatus SNOMED Code Problem Osteoarthritis M19.90 Active 55479 5006 Problem Chronic obstructive pulmonary disease, unspecified COPD ty pe J44.9 Active 11784101 Problem Acquired hypothyroidism E03.9 Active 823241892 Problem Cigarette nicotine dependence without complication F17.210 Active 51118108 Problem Diabetes E11.9 Active 252062594 Problem High risk medication use Z79.899 Activ e 227296313 Problem Urinary incontinence, unspecified type R32 Active 175148834 Problem long-term (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.01 Active 506126284 Problem Morbid obesity, unspecified obesity type E66.01 Active 448838723 Problem Other chronic pain G89.29 Active 8 5846834 Problem History of cataract surgery Z98.49 Ac tive 307320328 Problem Type 2 diabetes mellitus wit h hyperglycemia, without long-term current use of insulin E11.65 Active 99910166 Problem Encounter for immunization Z23 Act essie 329802089 Problem Irregular heart beats I49.9 Active 872899668 Problem Other urinary incontinence N39.498 Act essie 028422887 Problem Essential hypertension I10 Active 78327655 Problem Chronic atrial fibrillation I48.2 Ac tive 666443229 ALLERGIES No Information ENCOUNTERS Encounter Location Date Diagnosis [facility] [id number] [place] [address] Aug, [facility] [address] [id number] [place] [address] Aug, [facility] [address] [id number] [place] [address] Aug, roasterman (current) use of anticoagulant s Z79.01 [facility] [address] [id number] [place] [address] Aug, roasterman (current) use of anticoagulant s Z79.01 [facility] [address] [address] Jul, Osteoarthritis M19.90 [facility] [address] [address] Jul, Osteoarthritis M19.90 [facility] [address] [address] Jun, [facility] [address] [address] Jun, Chronic atrial fibrillation I48.2 [facility] [address] [address] Jun, Osteoarthritis M19.90 [facility] [address] [address] Jun, Chronic atrial fibrillation I48.2 [facility] [address] [address] May, Osteoarthritis M19.90 [facility] [address] [address] May, Chronic atrial fibrillation I48.2 [facility] [address] [address] Apr, Osteoarthritis M19.90 [facility] [address] [address] Mar, Chronic atrial fibrillation I48.2 [facility] [address] [address] Mar, Chronic atrial fibrillation I48.2 [facility] [address] [address] Mar, Osteoarthritis M19.90 [facility] [address] [address] Mar, Chronic atrial fibrillation I48.2 [facility] [address] [address] Mar, Type 2 diabetes mellitus with hyperglyce emani, without long-term current use of insulin E11.65 ; Chronic atrial fibrillation I48.2 and Morbid obesity E66.01 [place] [address] [address] Feb, Osteoarthritis M19.90 [place] [address] [address] Feb, Chronic atrial fibrillation I48.2 [place] [address] [address] Feb, Hyperglycemia R73.9 ; Diabetes E11.9 ; M orbid obesity E66.01 ; Acquired hypothyroidism E03.9 ; Osteoarthritis M19.90 and High risk medication use Z79.899 [place] [address] [address] Feb, Chronic atrial fibrillation I48.2 [place] [address] [address] Jan, Osteoarthritis M19.90 [place] [address] [address] Jan, Chronic atrial fibrillation I48.2 [place] [address] [address] Jan, Chronic atrial fibrillation I48.2 [place] [address] [address] Jan, Chronic atrial fibrillation I48.2 [place] [address] [address] Jan, roasterman (current) use of anticoagulant s Z79.01 [place] [address] [address] December, [place] [address] [address] December, [facility] [id number] [place] [address] December, Osteoarthritis M19.90 [facility] [id number] [place] [address] Nov, [facility] [id number] [place] [address] Nov, Osteoarthritis M19.90 [facility] [id number] [place] [address] Oct, Osteoarthritis M19.90 [place] [address] [address] Sep, Osteoarthritis M19.90 [place] [id number] [place] [address] Sep, roasterman (current) use of anticoagulant s Z79.01 ; BMI 45.0-49.9, adult Z68.42 ; Diabetes E11.9 ; Chronic atrial fibrillation I48.2 and Chronic obstructive pulmonary disease, unspecified COPD type J44.9 [facility] [id number] [place] [address] Sep, Diabetes E11.9 ; long-term (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.01 ; Chronic atrial fibrillation I48.2 ; Chronic obstructive pulmonary disease, unspecified COPD type J44.9 and BMI 45.0-49.9, adult Z68.42 [place] [id number] [place] [address] Aug, Osteoarthritis M19.90 [facility] [id number] [place] [address] Aug, [place] [address] [address] Aug, roasterman (current) use of anticoagulant s Z79.01 ; BMI 45.0-49.9, adult Z68.42 ; Diabetes E11.9 and Chronic atrial fibrillation I48.2 [facility] [address] [facility] [id number] [place] [address] Aug, [place] [address] [address] Jul, Osteoarthritis M19.90 [place] [address] [address] Jun, Osteoarthritis M19.90 [place] [address] [address] Jun, roasterman (current) use of anticoagulant s Z79.01 [place] [address] [address] Jun, Chronic atrial fibrillation I48.2 and Lo ng term (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.01 [place] [address] [address] Jun, Osteoarthritis M19.90 [place] [address] [address] May, Encounter for immunization Z23 [place] [address] [address] May, long-term (current) use of anticoagulant s Z79.01 [place] [address] [address] May, Osteoarthritis M19.90 [place] [address] [address] May, [place] [address] [address] May, Diabetes E11.9 ; long-term (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.01 ; Chronic atrial fibrillation I48.2 ; BMI 45.0-49.9, adult Z68.42 ; Osteoarthritis M19.90 ; Low back pain M54.5 and Other chronic pain G89.29 [place] [address] [address] Apr, Chronic atrial fibrillation I48.2 [place] [address] [address] 13 Apr, 2018 long-term (current) use of anticoagulant s Z79.01 [place] [address] [address] 07 Apr, 2018 Osteoarthritis M19.90 [place] [address] [address] 04 Apr, 2018 long-term (current) use of anticoagulant s Z79.01 and Chronic atrial fibrillation I48.2 [place] [address] [address] Mar, Osteoarthritis M19.90 [place] [address] [address] Feb, Osteoarthritis M19.90 [place] [address] [address] Jan, Osteoarthritis M19.90 [place] [address] [address] December, [place] [address] [address] December, Osteoarthritis M19.90 [place] [address] [address] Nov, Diabetes E11.9 ; roasterman (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.01 ; Acquired hypothyroidism E03.9 ; Cigarette nicotine dependence without complication F17.210 ; Osteoarthritis M19.90 ; BMI 45.0-49.9, adult Z68.42 and Chronic atrial fibrillation I48.2 [place] [address] [address] Nov, Osteoarthritis M19.90 [place] [address] [address] Oct, Osteoarthritis M19.90 [place] [address] [address] Oct, long-term (current) use of anticoagulant s Z79.01 [place] [address] [address] Sep, Osteoarthritis M19.90 [facility] [address] [address] Sep, [facility] [address] [address] Aug, Osteoarthritis M19.90 [facility] [address] [address] Jul, Osteoarthritis M19.90 [facility] [address] [address] Jul, Osteoarthritis M19.90 [place] [address] [address] Jun, Diabetes E11.9 ; Encounter for immunizat ion Z23 ; long-term (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.01 ; Chronic atrial fibrillation I48.2 ; Osteoarthritis M19.90 ; Tobacco abuse Z72.0 and Bug bite, initial encounter W57.XXXA [place] [address] [address] May, Osteoarthritis M19.90 [place] [address] [address] Apr, Osteoarthritis M19.90 [place] [address] [address] Mar, Chronic atrial fibrillation I48.2 [facility] [address] [address] Mar, [place] [address] [address] Mar, Osteoarthritis M19.90 [facility] [address] [address] Mar, long-term (current) use of anticoagulant s Z79.01 and Chronic atrial fibrillation I48.2 [place] [address] [address] Mar, Chronic atrial fibrillation I48.2 and Lo ng term (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.01 [place] [address] [address] Mar, roasterman (current) use of anticoagulant s Z79.01 [place] [address] [address] Mar, long-term (current) use of anticoagulant s Z79.01 [place] [address] [address] Mar, Osteoarthritis M19.[address] [address] Feb, Encounter for screening mammogram for ma lignant neoplasm of breast Z12.[address] [address] Feb, Osteoarthritis M19.90 [place] [address] [address] Jan, [place] [address] [address] Jan, roasterman (current) use of anticoagulant s Z79.01 ; Diabetes E11.9 ; Osteoarthritis M19.90 and Breast cancer screening Z12.39 [place] [address] [address] Jan, Osteoarthritis M19.90 [place] [address] [address] Jan, Osteoarthritis M19.90 [place] [address] [address] Jan, [place] [address] [address] December, Osteoarthritis M19.90 [place] [address] [address] December, Osteoarthritis M19.90 [place] [id number] [place] [id number] Nov, [facility] [address] [address] Nov, [facility] [id number] [place] [address] Nov, [facility] [address] [address] Nov, Diabetes E11.9 [facility] [address] [address] Nov, [facility] [address] [address] Oct, Osteoarthritis M19.90 [facility] [address] [address] Oct, Osteoarthritis M19.90 ; roasterman (curre nt) use of 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 Z79.01 ; Diabetes E11.9 ; Cigarette nicotine dependence without complication F17.210 and Chronic atrial fibrillation I48.2 [facility] [id number] [place] [address] Aug, [place] [address] [address] Aug, long-term (current) use of anticoagulant s Z79.01 [place] [address] [address] Aug, [facility] [address] [id number] [place] [id number] Aug, [facility] [id number] [place] [address] Aug, [place] [address] [address] Aug, [place] [address] [place] [id number] [place] [facility] [place] [id number] Aug, [facility] [address] [place] [id number] Aug Osteoarthritis M19.90 and Essential hypertension I10 [place] [address] [address] Aug, Other urinary incontinence N39.498 [place] [address] [address] Jul, Osteoarthritis M19.90 [place] [address] [address] Jun, Diabetes E11.9 ; Encounter for immunizat ion Z23 ; Osteoarthritis M19.90 ; roasterman (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.01 ; Cigarette nicotine dependence without complication F17.210 ; Acquired hypothyroidism E03.9 ; Morbid obesity, unspecified obesity type E66.01 and Irregular heart beats I49.9 [place] [address] [address] Jun, Osteoarthritis M19.90 [place] [address] [address] May, Osteoarthritis M19.90 [place] [address] [address] May, Urinary incontinence, unspecified type R 32 [place] [address] [address] May, [place] [address] [address] Apr, Osteoarthritis M19.90 [place] [address] [address] Apr, long-term (current) use of anticoagulant s Z79.01 [place] [address] [address] Apr, [place] [address] [address] Apr, Osteoarthritis M19.90 [place] [address] [address] Mar, Diabetes E11.9 ; Hypothyroidism, unspeci fied type E03.9 ; Osteoarthritis M19.90 ; High risk medication use Z79.899 ; Cigarette nicotine dependence without complication F17.210 and Morbid obesity, unspecified obesity type E66.01 [facility] [address] [address] Mar, Osteoarthritis M19.90 [facility] [address] [address] December, Osteoarthritis M19.90 [place] [address] [address] December, [place] [address] [address] Oct, [place] [address] [address] Oct, [place] [address] [address] Aug, [place] [address] [address] Jul, [place] [address] [address] Jul, [place] [address] [address] Jul, Diabetes E11.9 ; Encounter for immunizat ion Z23 ; Abnormal mammogram R92.8 ; Acquired hypothyroidism E03.9 ; High risk medication use Z79.899 ; Osteoarthritis M19.90 and Cigarette nicotine dependence without complication F17.210 [place] [address] [address] Jul, [place] [address] [address] Jun, Abnormal mammogram R92.8 [place] [address] [address] Apr, [place] [address] [address] Apr, [facility] [id number] [place] [address] Mar, [facility] [id number] [place] [address] Mar, Current use of fdc ant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 V58.61 [facility] [id number] [place] [address] Feb, [facility] [id number] [place] [address] Jan, [facility] [id number] [place] [address] December, [facility] [id number] [place] [address] Nov, [facility] [id number] [place] [address] Nov, [facility] [id number] [place] [address] Oct, [facility] [id number] [place] [address] Oct, [facility] [id number] [place] [address] Oct, [facility] [id number] [place] [address] Oct, [facility] [id number] [place] [address] Oct, [facility] [id number] [place] [address] Oct, [facility] [id number] [place] [address] Sep, [facility] [address] [id number] [place] [address] Sep, [facility] [id number] [place] [address] Sep, [facility] [id number] [place] [address] Sep, [facility] [address] [id number] [place] [address] Aug, [facility] [id number] [place] [address] Aug, [facility] [id number] [place] [address] Aug, [facility] [id number] [place] [address] Aug, [facility] [id number] [place] [address] Aug, [facility] [id number] [place] [address] Aug, [facility] [address] [id number] [place] [address] Jul, [facility] [id number] [place] [address] Jul, [facility] [address] [id number] [place] [address] Jul, [facility] [id number] [place] [address] Jul, [facility] [address] [facility] [id number] [place] [address] Jul, [facility] [address] [id number] [place] [address] Jul, [facility] [id number] [place] [address] Jun, [facility] [address] [id number] [place] [address] Jun, [facility] [id number] [place] [address] Jun, [facility] [address] [id number] [place] [address] Jun, [facility] [address] [id number] [place] [address] Jun, [facility] [address] [facility] [id number] [place] [address] Jun, [facility] [address] [facility] [id number] [place] [address] Jun, [facility] [address] [facility] [id number] [place] [address] Jun, [facility] [address] [id number] [place] [address] Jun, [facility] [address] [id number] [place] [address] May, [facility] [address] [facility] [id number] [place] [address] May, [facility] [address] [facility] [id number] [place] [address] Apr, [facility] [address] [id number] [place] [address] Apr, [facility] [address] [id number] [place] [address] Apr, [facility] [address] [id number] [place] [address] Apr, 2013 [facility] [address] [id number] [place] [address] Apr, 2013 [facility] [address] [id number] [place] [address] Apr, 2013 [facility] [address] [id number] [place] [address] Apr, 2013 [facility] [address] [id number] [place] [address] Apr, 2013 [facility] [address] [id number] [place] [address] Apr2013 [facility] [address] [facility] [id number] [place] [address] Apr, [facility] [address] [id number] [place] [address] Mar, [facility] [address] [id number] [place] [address] Mar, [facility] [address] [id number] [place] [address] Mar, [facility] [address] [facility] [id number] [place] [address] Mar, [facility] [address] [id number] [place] [address] Mar, [facility] [address] [id number] [place] [address] Mar, [facility] [address] [id number] [place] [address] Feb, [facility] [address] [id number] [place] [address] Feb, [facility] [address] [id number] [place] [address] Feb, [facility] [address] [id number] [place] [address] Feb, [facility] [address] [id number] [place] [address] Jan, [facility] [address] [id number] [place] [address] Jan, [facility] [address] [id number] [place] [address] Jan, [facility] [address] [id number] [place] [address] Jan, [facility] [address] [id number] [place] [address] Oct, [facility] [address] [id number] [place] [address] Oct, [facility] [address] [facility] [id number] [place] [address] Sep, [facility] [address] [facility] [id number] [place] [address] Sep, [facility] [address] [id number] [place] [address] Sep, [facility] [address] [id number] [place] [address] Sep, [facility] [address] [id number] [place] [address] Aug, [facility] [address] [id number] [place] [address] Aug, [facility] [address] [id number] [place] [address] Aug, [facility] [address] [id number] [place] [address] Aug, [facility] [address] [id number] [place] [address] Jul, [facility] [address] [id number] [place] [address] Jul, [facility] [address] [id number] [place] [address] Jul, [facility] [address] [id number] [place] [address] Jul, [facility] [address] [id number] [place] [address] Jul, [facility] [address] [id number] [place] [address] Jul, [facility] [address] [id number] [place] [address] Jun, [facility] [address] [id number] [place] [address] Jun, [facility] [address] [id number] [place] [address] Jun, [facility] [address] [facility] [id number] [place] [address] Jun, [facility] [address] [id number] [place] [address] Jun, [facility] [address] [id number] [place] [address] Jun, [facility] [address] [id number] [place] [address] May, [facility] [address] [id number] [place] [address] May, [facility] [address] [id number] [place] [address] May, [facility] [address] [id number] [place] [address] May, [facility] [address] [id number] [place] [address] May, [facility] [address] [id number] [place] [address] May, [facility] [address] [id number] [place] [address] May, [facility] [address] [id number] [place] [address] May, [facility] [address] [id number] [place] [address] Apr, [facility] [address] [id number] [place] [address] Apr, [facility] [address] [id number] [place] [address] Mar, [facility] [address] [id number] [place] [address] Mar, [facility] [address] [id number] [place] [address] Mar, [facility] [address] [id number] [place] [address] Mar, [facility] [address] [id number] [place] [address] Feb, [facility] [address] [id number] [place] [address] Jan, [facility] [address] [id number] [place] [address] December, [facility] [address] [id number] [place] [address] December, [facility] [address] [id number] [place] [address] December, [facility] [facility] [id number] [place] [address] Nov, [facility] [id number] [place] [address] Nov, [facility] [id number] [place] [address] Sep, [facility] [id number] [place] [address] Sep, [facility] [id number] [place] [address] Sep, [facility] [id number] [place] [address] Sep, [facility] [id number] [place] [address] Aug, [facility] [id number] [place] [address] Aug, [facility] [id number] [place] [address] Aug, [facility] [id number] [place] [address] Aug, [facility] [id number] [place] [address] Jul, [facility] [id number] [place] [address] Jul, [facility] [id number] [place] [address] Jul, [facility] [id number] [place] [address] Jul, [facility] [id number] [place] [address] Jun, [facility] [id number] [place] [address] Jun, [facility] [id number] [place] [address] Jun, [facility] [id number] [place] [address] Jun, [facility] [id number] [place] [address] May, [facility] [id number] [place] [address] 18 May, 2012 [facility] [id number] [place] [address] May, [facility] [id number] [place] [address] May, [facility] [id number] [place] [address] 08 May, 2012 [facility] [id number] [place] [address] 10 Apr, 2011 [facility] [id number] [place] [address] 08 Sep2011 [facility] [id number] [place] [address] 07 Apr, 2011 [facility] [id number] [place] [address] 06 Sep, 2011 [facility] [id number] [place] [address] Mar, [facility] [id number] [place] [address] Mar, [facility] [id number] [place] [address] Feb, [facility] [id number] [place] [address] Feb, [facility] [id number] [place] [address] Feb, [facility] [id number] [place] [address] Jan, [facility] [id number] [place] [address] Jan, [facility] [id number] [place] [address] December, [facility] [id number] [place] [address] December, [facility] [id number] [place] [address] Nov, [facility] [id number] [place] [address] Oct, [facility] [id number] [place] [address] Oct, [facility] [id number] [place] [address] Sep, [facility] [id number] [place] [address] Sep, [facility] [id number] [place] [address] Aug, [facility] [id number] [place] [address] Aug, [facility] [id number] [place] [address] 30 Jul, 2011 [facility] [address] [facility] [id number] [place] [address] Jul, [facility] [id number] [place] [address] Jul, [facility] [id number] [place] [address] 07 Jun, 2011 [facility] [id number] [place] [address] 07 Jun, 2011 [facility] [id number] [place] [address] 13 May, 2011 [facility] [id number] [place] [address] May, [facility] [id number] [place] [address] May, [facility] [id number] [place] [address] Jul, [facility] [id number] [place] [address] 08 Jul, 2010 [facility] [id number] [place] [address] 15 Jun, 2010 [facility] [id number] [place] [address] May, [facility] [id number] [place] [address] May, [facility] [id number] [place] [address] 14 Aug, 2009 [facility] [id number] [place] [address] 17 Jul, 2009 [facility] [id number] [place] [address] Jun, [facility] [id number] [place] [address] Jun, [facility] [id number] [place] [address] Jun, [facility] [id number] [place] [address] Jun, [facility] [id number] [place] [address] Jun, [facility] [id number] [place] [address] May, [facility] [id number] [place] [address] Sep, IMMUNIZATIONS No Known Immunizations SOCIAL HISTORY Never Assessed REASON FOR VISIT PLAN OF CARE VITAL SIGNS Height 64 in 2014-02-06 Weight 268.44 lbs 2014-02-06 Temperature 98.2 degrees Fahrenheit 2014-02-06 Heart Rate 84 bpm 2014-02-06 Respiratory Rate 22 2014-02-06 Blood pressure systolic 134 mmHg 2014-02-06 Blood pressure diastolic 74 mmHg 2014-02-06 MEDICATIONS Unknown Medications RESULTS No Results PROCEDURES Procedure Date Ordered Result Body Site PROTHROMBIN TIME February 06, 2014 ASSAY THYROID STIM HORMONE February 06, 2014 GLYCATED HEMOGLOBIN TEST February 06, 2014 MICROALBUMIN, SEMIQUANT February 06, 2014 MICROALBUMIN, QUANTITATIVE February 06, 2014 LIPID PANEL February 06, 2014 VENIPUNCT, ROUTINE* February 06, 2014 INSTRUCTIONS MEDICATIONS ADMINISTERED No Known Medications [...]
--- OUTSIDE RECORDS SUMMARY | 2020-01-28 14:29 | XMS REPORT ---
Author Author Katarina RODRIGUEZ Organization [facility] Address [address] [place] [address] Care Team Providers Care Spray Technician Name Role Phone GEORGINA RODRIGUEZ Unavailable PROBLEMS Type Condition ICD9-CM Code NHS75-AA Code Onset Dates Condition S tatus SNOMED Code Problem Osteoarthritis M19.90 Active 13650 5006 Problem Chronic obstructive pulmonary disease, unspecified COPD ty pe J44.9 Active 82771038 Problem Acquired hypothyroidism E03.9 Active 787434544 Problem Cigarette nicotine dependence without complication F17.210 Active 51572577 Problem Diabetes E11.9 Active 861766590 Problem High risk medication use Z79.899 Activ e 700357212 Problem Urinary incontinence, unspecified type R32 Active 241781730 Problem [facility] (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.01 Active 879946742 Problem Morbid obesity, unspecified obesity type E66.01 Active 322845421 Problem Other chronic pain G89.29 Active 8 6538984 Problem History of cataract surgery Z98.49 Ac tive 222829489 Problem Type 2 diabetes mellitus wit h hyperglycemia, without long-term current use of insulin E11.65 Active 24418210 Problem Encounter for immunization Z23 Act essie 388128948 Problem Irregular heart beats I49.9 Active 990841998 Problem Other urinary incontinence N39.498 Act essie 815492075 Problem Essential hypertension I10 Active 04378222 Problem Chronic atrial fibrillation I48.2 Ac tive [id number] ALLERGIES No Information ENCOUNTERS Encounter Location Date Diagnosis [facility] [id number] [place] [address] Aug, [facility] [id number] [place] [address] Aug, Diabetes E11.9 [facility] [id number] [place] [address] Aug, [facility] [address] [facility] [id number] [address] [place] [address] 08 Aug, 2019 Acute non-recurrent pansinus itis J01.40 and Non- recurrent acute suppurative otitis media of left ear without spontaneous rupture of tympanic membrane H66.002 [facility] [address] [address] Aug, [facility] [address] [address] Aug, [facility] (current) use of anticoagulant s Z79.01 [facility] [address] [address] Aug, [facility] (current) use of anticoagulant s Z79.01 [facility] [address] [address] Jul, Osteoarthritis M19.90 [facility] [address] [address] Jul, Osteoarthritis M19.90 [facility] [address] [address] Jun, [facility] [address] [address] Jun, Chronic atrial fibrillation I48.2 [facility] [address] [address] Jun, Osteoarthritis M19.90 [facility] [address] [address] Jun, Chronic atrial fibrillation I48.2 [facility] [address] [address] May, Osteoarthritis M19.90 [facility] [address] [address] May, Chronic atrial fibrillation I48.2 [facility] [address] [address] Apr, Osteoarthritis M19.90 [place] [address] [address] Mar, Chronic atrial fibrillation I48.2 [place] [address] [address] Mar, Chronic atrial fibrillation I48.2 [place] [address] [address] Mar, Osteoarthritis M19.90 [place] [address] [address] Mar, Chronic atrial fibrillation I48.2 [place] [address] [address] Mar, Type 2 diabetes mellitus with hyperglyce emani, without long-term current use of insulin E11.65 ; Chronic atrial fibrillation I48.2 and Morbid obesity E66.01 [place] [address] [address] Feb, Osteoarthritis M19.90 [place] [address] [address] Feb, Chronic atrial fibrillation I48.2 [place] [address] [address] Feb, Hyperglycemia R73.9 ; Diabetes E11.9 ; M orbid obesity E66.01 ; Acquired hypothyroidism E03.9 ; Osteoarthritis M19.90 and High risk medication use Z79.899 [place] [address] [address] Feb, Chronic atrial fibrillation I48.2 [place] [address] [address] Jan, Osteoarthritis M19.90 [place] [address] [address] Jan, Chronic atrial fibrillation I48.2 [place] [address] [address] Jan, Chronic atrial fibrillation I48.2 [place] [address] [address] Jan, Chronic atrial fibrillation I48.2 [place] [address] [address] Jan, [facility] (current) use of anticoagulant s Z79.01 [place] [address] [address] December, [place] [address] [address] December, [place] [address] [address] December, Osteoarthritis M19.90 [place] [address] [address] Nov, [place] [address] [address] Nov, Osteoarthritis M19.90 [place] [address] [address] Oct, Osteoarthritis M19.90 [place] [address] [address] Sep, Osteoarthritis M19.90 [place] [address] [address] Sep, [facility] (current) use of anticoagulant s Z79.01 ; BMI 45.0-49.9, adult Z68.42 ; Diabetes E11.9 ; Chronic atrial fibrillation I48.2 and Chronic obstructive pulmonary disease, unspecified COPD type J44.9 [place] [address] [address] 04 Sep, 2018 Diabetes E11.9 ; [facility] (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.01 ; Chronic atrial fibrillation I48.2 ; Chronic obstructive pulmonary disease, unspecified COPD type J44.9 and BMI 45.0-49.9, adult Z68.42 [place] [address] [address] Aug, Osteoarthritis M19.90 [place] [address] [address] Aug, [place] [address] [address] 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, 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 ; BMI 45.0-49.9, adult Z68.42 ; Diabetes E11.9 and Chronic atrial fibrillation I48.2 [facility] [address] [facility] [id number] [address] [place] [address] Aug, [place] [address] [address] Jul, Osteoarthritis M19.90 [place] [address] [address] Jun, Osteoarthritis M19.90 [place] [address] [address] Jun, [facility] (current) use of anticoagulant s Z79.01 [place] [address] [address] Jun, Chronic atrial fibrillation I48.2 and Lo ng term (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.01 [place] [address] [address] Jun, Osteoarthritis M19.90 [place] [address] [address] May, Encounter for immunization Z23 [place] [address] [address] May, 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 [place] [address] [address] May, Osteoarthritis M19.90 [place] [address] [address] May, [place] [address] [address] May, Diabetes E11.9 ; [facility] (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.01 ; Chronic atrial fibrillation I48.2 ; BMI 45.0-49.9, adult Z68.42 ; Osteoarthritis M19.90 ; Low back pain M54.5 and Other chronic pain G89.29 [place] [address] [address] 20 Apr, 2018 Chronic atrial fibrillation I48.2 [place] [address] [address] 13 Apr, 2018 [facility] (current) use of anticoagulant s Z79.01 [place] [address] [address] 07 Apr, 2018 Osteoarthritis M19.90 [place] [address] [address] Apr, [facility] (current) use of anticoagulant s Z79.01 and Chronic atrial fibrillation I48.2 [place] [address] [address] Mar, Osteoarthritis M19.90 [place] [address] [address] Feb, Osteoarthritis M19.90 [place] [address] [address] Jan, Osteoarthritis M19.90 [place] [address] [address] December, [place] [address] [address] December, Osteoarthritis M19.90 [place] [address] [address] Nov, Diabetes E11.9 ; 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 ; Acquired hypothyroidism E03.9 ; Cigarette nicotine dependence without complication F17.210 ; Osteoarthritis M19.90 ; BMI 45.0-49.9, adult Z68.42 and Chronic atrial fibrillation I48.2 [facility] [address] [address] Nov, Osteoarthritis M19.90 [facility] [address] [address] Oct, Osteoarthritis M19.90 [facility] [address] [address] Oct, [facility] (current) use of anticoagulant s Z79.01 [facility] [address] [address] Sep, Osteoarthritis M19.90 [place] [address] [address] Sep, [place] [address] [address] Aug, Osteoarthritis M19.90 [place] [address] [address] Jul, Osteoarthritis M19.90 [facility] [address] [address] Jul, Osteoarthritis M19.90 [place] [address] [address] Jun, Diabetes E11.9 ; Encounter for immunizat ion Z23 ; 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 ; Chronic atrial fibrillation I48.2 ; Osteoarthritis M19.90 ; Tobacco abuse Z72.0 and Bug bite, initial encounter W57.XXXA [place] [address] [address] May, Osteoarthritis M19.90 [place] [address] [address] Apr, Osteoarthritis M19.90 [facility] [address] [address] Mar, Chronic atrial fibrillation I48.2 [place] [address] [address] Mar, [place] [address] [address] Mar, Osteoarthritis M19.90 [place] [address] [address] Mar, 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 and Chronic atrial fibrillation I48.2 [place] [address] [address] Mar, Chronic atrial fibrillation I48.2 and Lo ng term (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.01 [place] [address] [address] Mar, [facility] (current) use of anticoagulant s Z79.01 [place] [address] [address] Mar, [facility] (current) use of anticoagulant s Z79.01 [place] [address] [address] Mar, Osteoarthritis M19.90 [place] [address] [address] Feb, Encounter for screening mammogram for ma lignant neoplasm of breast Z12.31 [place] [address] [address] Feb, Osteoarthritis M19.90 [place] [address] [address] Jan, [place] [address] [address] Jan, [facility] (current) use of anticoagulant s Z79.01 ; Diabetes E11.9 ; Osteoarthritis M19.90 and Breast cancer screening Z12.39 [place] [address] [address] Jan, Osteoarthritis M19.90 [place] [address] [place] [id number] [place] [address] Jan, Osteoarthritis M19.90 [facility] [address] [address] Jan, [facility] [address] [address] December, Osteoarthritis M19.90 [facility] [address] [address] December, Osteoarthritis M19.90 [place] [id number] [place] [id number] Nov, [place] [address] [address] Nov, [place] [address] [address] Nov, [place] [address] [address] Nov, Diabetes E11.9 [facility] [address] [address] Nov, [place] [address] [address] Oct, Osteoarthritis M19.90 [place] [address] [address] Oct, Osteoarthritis M19.90 ; [facility] (curre nt) use of 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 Z79.01 ; Diabetes E11.9 ; Cigarette nicotine dependence without complication F17.210 and Chronic atrial fibrillation I48.2 [facility] [address] [address] Aug, [place] [address] [address] Aug, [facility] (current) use of anticoagulant s Z79.01 [place] [address] [address] Aug, [facility] [address] [id number] [place] [id number] Aug, [place] [address] [address] Aug, [place] [address] [address] Aug, [facility] [id number] [place] [id number] Aug, [facility] [address] [place] [id number] Aug Osteoarthritis M19.90 and Essential hypertension I10 [place] [address] [address] Aug, Other urinary incontinence N39.498 [place] [address] [address] Jul, Osteoarthritis M19.90 [place] [address] [address] Jun, Diabetes E11.9 ; Encounter for immunizat ion Z23 ; Osteoarthritis M19.90 ; [facility] (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.01 ; Cigarette nicotine dependence without complication F17.210 ; Acquired hypothyroidism E03.9 ; Morbid obesity, unspecified obesity type E66.01 and Irregular heart beats I49.9 [place] [address] [address] Jun, Osteoarthritis M19.90 [place] [address] [address] May, Osteoarthritis M19.90 [place] [address] [address] May, Urinary incontinence, unspecified type R 32 [place] [address] [address] May, [place] [address] [address] Apr, Osteoarthritis M19.90 [place] [address] [address] Apr, [facility] (current) use of anticoagulant s Z79.01 [place] [address] [address] Apr, [place] [address] [address] Apr, Osteoarthritis M19.90 [place] [address] [address] Mar, Diabetes E11.9 ; Hypothyroidism, unspeci fied type E03.9 ; Osteoarthritis M19.90 ; High risk medication use Z79.899 ; Cigarette nicotine dependence without complication F17.210 and Morbid obesity, unspecified obesity type E66.01 [place] [address] [address] Mar, Osteoarthritis M19.90 [place] [address] [address] December, Osteoarthritis M19.90 [place] [address] [address] December, [place] [address] [address] Oct, [place] [address] [address] Oct, [place] [address] [address] Aug, [place] [address] [address] Jul, [place] [address] [address] Jul, [place] [address] [address] Jul, Diabetes E11.9 ; Encounter for immunizat ion Z23 ; Abnormal mammogram R92.8 ; Acquired hypothyroidism E03.9 ; High risk medication use Z79.899 ; Osteoarthritis M19.90 and Cigarette nicotine dependence without complication F17.210 [facility] [address] [address] Jul, [facility] [address] [address] Jun, Abnormal mammogram R92.8 [facility] [address] [address] Apr, [facility] [address] [address] Apr, [facility] [address] [address] Mar, [facility] [address] [address] Mar, Current use of retirement ant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 V58.61 [facility] [address] [address] Feb, [facility] [address] [address] Jan, [facility] [address] [address] December, [facility] [address] [address] Nov, [facility] [address] [address] Nov, [facility] [address] [address] Oct, [facility] [address] [address] Oct, [facility] [address] [address] Oct, [facility] [address] [address] Oct, [facility] [address] [place] [address] Oct, [facility] [id number] [place] [address] Oct, [facility] [id number] [place] [address] Sep, [facility] [id number] [place] [address] Sep, [facility] [id number] [place] [address] Sep, [facility] [id number] [place] [address] Sep, [facility] [id number] [place] [address] Aug, [facility] [id number] [place] [address] Aug, [facility] [id number] [place] [address] Aug, [facility] [id number] [place] [address] Aug, [facility] [address] [id number] [place] [address] Aug, [facility] [address] [id number] [place] [address] Aug, [facility] [id number] [place] [address] Jul, [facility] [address] [id number] [place] [address] Jul, [facility] [address] [id number] [place] [address] Jul, [facility] [address] [id number] [place] [address] Jul, [facility] [address] [id number] [place] [address] Jul, [facility] [address] [id number] [place] [address] Jul, [facility] [address] [id number] [place] [address] Jun, [facility] [address] [id number] [place] [address] Jun, [facility] [address] [id number] [place] [address] Jun, [facility] [address] [id number] [place] [address] Jun, [facility] [address] [id number] [place] [address] Jun, [facility] [address] [facility] [id number] [place] [address] Jun, [facility] [address] [id number] [place] [address] Jun, [facility] [address] [id number] [place] [address] Jun, [facility] [id number] [place] [address] Jun, [facility] [address] [facility] [address] [id number] [place] [address] May, [facility] [address] [id number] [place] [address] May, [facility] [address] [facility] [id number] [place] [address] Apr, [facility] [address] [facility] [id number] [place] [address] Apr, [facility] [address] [facility] [id number] [place] [address] Apr, [facility] [address] [id number] [place] [address] Apr, [facility] [address] [facility] [id number] [place] [address] Apr, 2013 [facility] [address] [facility] [id number] [facility] [place] [address] Apr, 2013 [facility] [address] [facility] [id number] [facility] [place] [address] Apr, 2013 [facility] [address] [id number] [place] [address] Apr, 2013 [facility] [address] [facility] [id number] [place] [address] Apr, 2013 [facility] [address] [facility] [id number] [facility] [place] [address] Apr, 2013 [facility] [address] [id number] [place] [address] Mar, [facility] [address] [id number] [place] [address] Mar, [facility] [address] [id number] [place] [address] Mar, [facility] [address] [id number] [place] [address] Mar, [facility] [address] [id number] [place] [address] Mar, [facility] [address] [id number] [place] [address] Mar, [facility] [address] [id number] [place] [address] Feb, [facility] [address] [id number] [place] [address] Feb, [facility] [address] [id number] [place] [address] Feb, [facility] [address] [id number] [place] [address] Feb, [facility] [address] [id number] [place] [address] Jan, [facility] [id number] [place] [address] 30 Jan, 2014 [facility] [address] [facility] [id number] [place] [address] Jan, [facility] [address] [id number] [place] [address] Jan, [facility] [address] [id number] [place] [address] Oct, [facility] [id number] [place] [address] Oct, [facility] [address] [id number] [place] [address] Sep, [facility] [address] [id number] [place] [address] Sep, [facility] [address] [id number] [place] [address] Sep, [facility] [address] [id number] [place] [address] Sep, [facility] [address] [id number] [place] [address] Aug, [facility] [address] [id number] [place] [address] Aug, [facility] [id number] [place] [address] Aug, [facility] [id number] [place] [address] Aug, [facility] [id number] [place] [address] Jul, [facility] [id number] [place] [address] Jul, [facility] [id number] [place] [address] Jul, [facility] [id number] [place] [address] Jul, [facility] [id number] [place] [address] Jul, 2012 [facility] [id number] [place] [address] Jul, [facility] [id number] [place] [address] Jun, [facility] [id number] [place] [address] Jun, [facility] [id number] [place] [address] Jun, [facility] [id number] [place] [address] Jun, [facility] [id number] [place] [address] Jun, [facility] [id number] [place] [address] Jun, [facility] [id number] [place] [address] May, [facility] [id number] [place] [address] May, [facility] [id number] [place] [address] May, [facility] [id number] [place] [address] May, [facility] [id number] [place] [address] May, [facility] [id number] [place] [address] May, [facility] [id number] [place] [address] May, [facility] [id number] [place] [address] May, 2012 [facility] [id number] [place] [address] Apr, [facility] [address] [facility] [id number] [place] [address] Apr, [facility] [id number] [place] [address] Mar, [facility] [id number] [place] [address] Mar, [facility] [id number] [place] [address] Mar, [facility] [id number] [place] [address] Mar, [facility] [id number] [place] [address] Feb, [facility] [address] [id number] [place] [address] Jan, [facility] [address] [id number] [place] [address] December, [facility] [address] [id number] [place] [address] December, [facility] [address] [id number] [place] [address] December, [facility] [address] [id number] [place] [address] Nov, [facility] [address] [facility] [id number] [place] [address] Nov, [facility] [address] [id number] [place] [address] Sep, [facility] [address] [facility] [id number] [place] [address] Sep, [facility] [address] [id number] [place] [address] Sep, [facility] [address] [id number] [place] [address] Sep, [facility] [address] [id number] [place] [address] 30 Aug, 2012 [facility] [address] [id number] [place] [address] Aug, [facility] [address] [id number] [place] [address] 08 Aug, 2012 [facility] [id number] [place] [address] 08 Aug, 2012 [facility] [address] [id number] [place] [address] Jul, [facility] [address] [id number] [place] [address] Jul, [facility] [address] [id number] [place] [address] Jul, [facility] [id number] [place] [address] Jul, [facility] [id number] [place] [address] 08 Jun, 2012 [facility] [address] [id number] [place] [address] 08 Jun, 2012 [facility] [id number] [place] [address] 08 Jun, 2012 [facility] [id number] [place] [address] 08 Jun, 2012 [facility] [address] [id number] [place] [address] 18 May, 2012 [facility] [address] [id number] [place] [address] 18 May, 2012 [facility] [id number] [place] [address] 10 May, 2012 [facility] [address] [facility] [id number] [place] [address] 10 May, 2012 [facility] [address] [id number] [place] [address] 08 May, 2012 [facility] [address] [id number] [place] [address] 10 Apr, 2012 [facility] [address] [facility] [id number] [place] [address] 08 Apr, 2012 [facility] [address] [facility] [id number] [place] [address] 07 Apr, 2012 [facility] [address] [id number] [place] [address] 06 Apr, 2012 [facility] [address] [id number] [place] [address] Mar, [facility] [address] [facility] [id number] [place] [address] Mar, [facility] [address] [id number] [place] [address] Feb, [facility] [address] [facility] [id number] [place] [address] Feb, [facility] [address] [id number] [place] [address] Feb, [facility] [address] [id number] [place] [address] Jan, [facility] [address] [id number] [place] [address] Jan, [facility] [address] [facility] [id number] [place] [address] December, [facility] [address] [id number] [place] [address] December, [facility] [address] [facility] [id number] [place] [address] Nov, [facility] [address] [facility] [id number] [place] [address] Oct, [facility] [address] [facility] [id number] [place] [address] Oct, [facility] [address] [facility] [id number] [place] [address] Sep, [facility] [address] [facility] [id number] [place] [address] Sep, [facility] [address] [facility] [id number] [place] [address] Aug, [facility] [id number] [place] [address] Aug, [facility] [address] [facility] [id number] [place] [address] Jul, [facility] [address] [facility] [id number] [place] [address] Jul, [facility] [address] [facility] [id number] [place] [address] Jul, [facility] [id number] [place] [address] Jun, [facility] [id number] [place] [address] Jun, [facility] [address] [facility] [id number] [place] [address] May, [facility] [id number] [place] [address] May, [facility] [id number] [place] [address] May, [facility] [address] [facility] [id number] [place] [address] Jul, [facility] [address] [facility] [id number] [place] [address] Jul, [facility] [id number] [place] [address] Jun, [facility] [address] [facility] [id number] [place] [address] May, [facility] [address] [facility] [id number] [place] [address] May, [facility] [address] [id number] [place] [address] Aug, [facility] [address] [id number] [place] [address] Jul, [facility] [address] [id number] [place] [address] Jun, [facility] [id number] [place] [address] Jun, [facility] [id number] [place] [address] Jun, [facility] [id number] [place] [address] Jun, [facility] [address] [id number] [place] [address] Jun, [facility] [address] [id number] [place] [address] May, [facility] [address] [id number] [place] [address] Sep, IMMUNIZATIONS No Known Immunizations SOCIAL HISTORY Never Assessed REASON FOR VISIT PLAN OF CARE VITAL SIGNS MEDICATIONS Unknown Medications RESULTS No Results PROCEDURES Procedure Date Ordered Result Body Site COMPUTER DX MAMMOGRAM ADD-ON January 26, 2014 INSTRUCTIONS MEDICATIONS ADMINISTERED No Known Medications [...]
--- OUTSIDE RECORDS SUMMARY | 2020-01-28 14:29 | XMS REPORT ---
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 Name Role Phone GEORGINA RODRIGUEZ Unavailable PROBLEMS Type Condition ICD9-CM Code YMU76-WC Code Onset Dates Condition S tatus SNOMED Code Problem Osteoarthritis M19.90 Active 41807 5006 Problem Chronic obstructive pulmonary disease, unspecified COPD ty pe J44.9 Active 37684567 Problem Acquired hypothyroidism E03.9 Active 405219969 Problem Cigarette nicotine dependence without complication F17.210 Active 50892939 Problem Diabetes E11.9 Active 689451491 Problem High risk medication use Z79.899 Activ e 282612013 Problem Urinary incontinence, unspecified type R32 Active 703104976 Problem senior living (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.01 Active 769181424 Problem Morbid obesity, unspecified obesity type E66.01 Active 178767729 Problem Other chronic pain G89.29 Active 8 4389886 Problem History of cataract surgery Z98.49 Ac tive 868233117 Problem Type 2 diabetes mellitus wit h hyperglycemia, without long-term current use of insulin E11.65 Active 86950400 Problem Encounter for immunization Z23 Act essie 230977812 Problem Irregular heart beats I49.9 Active 393014540 Problem Other urinary incontinence N39.498 Act essie 355518339 Problem Essential hypertension I10 Active 32158476 Problem Chronic atrial fibrillation I48.2 Ac tive 868622940 ALLERGIES No Information ENCOUNTERS Encounter Location Date Diagnosis [facility] [address] [id number] [place] [address] Sep, [facility] [address] [id number] [place] [address] Aug, Osteoarthritis M19.90 [facility] [address] [id number] [place] [address] Aug, Diabetes E11.9 ; 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 ; Tobacco abuse Z72.0 ; Low back pain M54.5 and Chronic atrial fibrillation I48.2 [facility] [address] [address] Aug, Diabetes E11.9 [facility] [address] [address] Aug, [facility] [address] [facility] [address] [id number] [address] [address] 08 Aug, 2019 Acute non-recurrent pansinus itis J01.40 and Non- recurrent acute suppurative otitis media of left ear without spontaneous rupture of tympanic membrane H66.002 [place] [address] [address] Aug, [place] [address] [address] Aug, 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 [place] [address] [address] Aug, senior living (current) use of anticoagulant s Z79.01 [place] [address] [address] Jul, Osteoarthritis M19.90 [place] [address] [address] Jul, Osteoarthritis M19.90 [place] [address] [address] Jun, [place] [address] [address] Jun, Chronic atrial fibrillation I48.2 [place] [address] [address] Jun, Osteoarthritis M19.90 [place] [address] [address] Jun, Chronic atrial fibrillation I48.2 [facility] [address] [address] May, Osteoarthritis M19.90 [facility] [address] [address] May, Chronic atrial fibrillation I48.2 [facility] [address] [address] Apr, Osteoarthritis M19.90 [facility] [address] [address] Mar, Chronic atrial fibrillation I48.2 [place] [address] [address] Mar, Chronic atrial fibrillation I48.2 [place] [address] [address] Mar, Osteoarthritis M19.90 [place] [address] [address] Mar, Chronic atrial fibrillation I48.2 [facility] [address] [address] Mar, Type 2 diabetes mellitus with hyperglyce emani, without long-term current use of insulin E11.65 ; Chronic atrial fibrillation I48.2 and Morbid obesity E66.01 [place] [address] [address] Feb, Osteoarthritis M19.90 [place] [address] [address] Feb, Chronic atrial fibrillation I48.2 [place] [address] [address] Feb, Hyperglycemia R73.9 ; Diabetes E11.9 ; M orbid obesity E66.01 ; Acquired hypothyroidism E03.9 ; Osteoarthritis M19.90 and High risk medication use Z79.899 [place] [address] [address] Feb, Chronic atrial fibrillation I48.2 [place] [id number] [place] [address] Jan, Osteoarthritis M19.90 [facility] [address] [address] Jan, Chronic atrial fibrillation I48.2 [facility] [address] [address] Jan, Chronic atrial fibrillation I48.2 [facility] [address] [address] Jan, Chronic atrial fibrillation I48.2 [place] [address] [address] Jan, senior living (current) use of anticoagulant s Z79.01 [place] [address] [address] December, [place] [address] [address] December, [place] [address] [address] December, Osteoarthritis M19.90 [place] [address] [address] Nov, [place] [address] [address] Nov, Osteoarthritis M19.90 [place] [address] [address] Oct, Osteoarthritis M19.90 [place] [address] [address] Sep, Osteoarthritis M19.90 [place] [address] [address] Sep, senior living (current) use of anticoagulant s Z79.01 ; BMI 45.0-49.9, adult Z68.42 ; Diabetes E11.9 ; Chronic atrial fibrillation I48.2 and Chronic obstructive pulmonary disease, unspecified COPD type J44.9 [facility] [address] [address] 04 Sep, 2018 Diabetes E11.9 ; 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 ; Chronic atrial fibrillation I48.2 ; Chronic obstructive pulmonary disease, unspecified COPD type J44.9 and BMI 45.0-49.9, adult Z68.42 [place] [address] [address] Aug, Osteoarthritis M19.90 [place] [address] [address] Aug, [place] [address] [address] Aug, 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 ; BMI 45.0-49.9, adult Z68.42 ; Diabetes E11.9 and Chronic atrial fibrillation I48.2 [facility] [address] [facility] [address] [id number] [address] [address] Aug, [place] [address] [address] Jul, Osteoarthritis M19.90 [place] [address] [address] Jun, Osteoarthritis M19.90 [place] [address] [address] Jun, senior living (current) use of anticoagulant s Z79.01 [place] [address] [address] Jun, Chronic atrial fibrillation I48.2 and Lo ng term (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.01 [place] [address] [address] Jun, Osteoarthritis M19.90 [place] [address] [address] May, Encounter for immunization Z23 [place] [address] [address] May, senior living (current) use of anticoagulant s Z79.01 [place] [address] [address] May, Osteoarthritis M19.90 [place] [address] [address] May, [place] [address] [address] May, Diabetes E11.9 ; 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 ; Chronic atrial fibrillation I48.2 ; BMI 45.0-49.9, adult Z68.42 ; Osteoarthritis M19.90 ; Low back pain M54.5 and Other chronic pain G89.29 [place] [address] [address] Apr, Chronic atrial fibrillation I48.2 [place] [address] [address] 13 Apr, 2018 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 [place] [address] [address] 07 Apr, 2018 Osteoarthritis M19.90 [place] [address] [address] Apr, senior living (current) use of anticoagulant s Z79.01 and Chronic atrial fibrillation I48.2 [place] [address] [address] Mar, Osteoarthritis M19.90 [place] [address] [address] Feb, Osteoarthritis M19.90 [place] [address] [address] Jan, Osteoarthritis M19.90 [place] [address] [address] December, [place] [address] [address] December, Osteoarthritis M19.[address] [address] Nov, Diabetes E11.9 ; senior living (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.01 ; Acquired hypothyroidism E03.9 ; Cigarette nicotine dependence without complication F17.210 ; Osteoarthritis M19.90 ; BMI 45.0-49.9, adult Z68.42 and Chronic atrial fibrillation I48.2 [place] [address] [address] Nov, Osteoarthritis M19.[address] [address] Oct, Osteoarthritis M19.[address] [address] Oct, 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 [place] [address] [address] Sep, Osteoarthritis M19.90 [place] [address] [address] Sep, [place] [address] [address] Aug, Osteoarthritis M19.[address] [address] Jul, Osteoarthritis M19.90 [place] [address] [address] Jul, Osteoarthritis M19.[address] [address] Jun, Diabetes E11.9 ; Encounter for immunizat ion Z23 ; senior living (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.01 ; Chronic atrial fibrillation I48.2 ; Osteoarthritis M19.90 ; Tobacco abuse Z72.0 and Bug bite, initial encounter W57.XXXA [place] [address] [address] May, Osteoarthritis M19.90 [place] [address] [address] Apr, Osteoarthritis M19.90 [place] [address] [address] Mar, Chronic atrial fibrillation I48.2 [place] [address] [address] Mar, [place] [address] [address] Mar, Osteoarthritis M19.90 [place] [address] [address] Mar, 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 and Chronic atrial fibrillation I48.2 [place] [address] [address] Mar, Chronic atrial fibrillation I48.2 and Lo ng term (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.01 [place] [address] [address] Mar, 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 [place] [address] [address] Mar, senior living (current) use of anticoagulant s Z79.01 [place] [address] [address] Mar, Osteoarthritis M19.90 [place] [address] [address] Feb, Encounter for screening mammogram for ma lignant neoplasm of breast Z12.31 [place] [address] [address] Feb, Osteoarthritis M19.90 [place] [address] [address] Jan, [facility] [address] [place] [id number] [place] [address] Jan, senior living (current) use of anticoagulant s Z79.01 ; Diabetes E11.9 ; Osteoarthritis M19.90 and Breast cancer screening Z12.39 [facility] [address] [place] [id number] [place] [address] Jan, Osteoarthritis M19.90 [facility] [address] [address] Jan, Osteoarthritis M19.90 [facility] [address] [address] Jan, [place] [address] [address] December, Osteoarthritis M19.90 [place] [address] [address] December, Osteoarthritis M19.90 [facility] [address] [id number] [id number] Nov, [facility] [address] [address] Nov, [facility] [address] [address] Nov, [facility] [address] [address] Nov, Diabetes E11.9 [facility] [address] [place] [id number] [place] [address] Nov, [facility] [address] [address] Oct, Osteoarthritis M19.90 [facility] [address] [address] Oct, Osteoarthritis M19.90 ; senior living (curre nt) use of 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 Z79.01 ; Diabetes E11.9 ; Cigarette nicotine dependence without complication F17.210 and Chronic atrial fibrillation I48.2 [place] [address] [address] Aug, [place] [address] [address] Aug, 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 [place] [address] [address] Aug, [place] [id number] [id number] Aug, [place] [address] [address] Aug, [place] [address] [address] Aug, [place] [id number] [place] [id number] Aug, [employer] [address] [place] [id number] Aug Osteoarthritis M19.90 and Essential hypertension I10 [place] [address] [address] Aug, Other urinary incontinence N39.498 [place] [address] [address] Jul, Osteoarthritis M19.90 [place] [address] [address] Jun, Diabetes E11.9 ; Encounter for immunizat ion Z23 ; Osteoarthritis M19.90 ; 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 ; Cigarette nicotine dependence without complication F17.210 ; Acquired hypothyroidism E03.9 ; Morbid obesity, unspecified obesity type E66.01 and Irregular heart beats I49.9 [place] [address] [address] Jun, Osteoarthritis M19.90 [place] [address] [address] May, Osteoarthritis M19.90 [place] [address] [address] May, Urinary incontinence, unspecified type R 32 [place] [address] [address] May, [place] [address] [address] Apr, Osteoarthritis M19.90 [place] [address] [address] Apr, 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 [place] [address] [address] Apr, [place] [address] [address] Apr, Osteoarthritis M19.90 [place] [address] [address] Mar, Diabetes E11.9 ; Hypothyroidism, unspeci fied type E03.9 ; Osteoarthritis M19.90 ; High risk medication use Z79.899 ; Cigarette nicotine dependence without complication F17.210 and Morbid obesity, unspecified obesity type E66.01 [place] [address] [address] Mar, Osteoarthritis M19.90 [place] [address] [address] December, Osteoarthritis M19.90 [place] [address] [address] December, [place] [address] [address] Oct, [place] [address] [address] Oct, [place] [address] [address] Aug, [place] [address] [address] Jul, [facility] [address] [address] Jul, [facility] [address] [address] Jul, Diabetes E11.9 ; Encounter for immunizat ion Z23 ; Abnormal mammogram R92.8 ; Acquired hypothyroidism E03.9 ; High risk medication use Z79.899 ; Osteoarthritis M19.90 and Cigarette nicotine dependence without complication F17.210 [facility] [address] [address] [id number] [place] [address] Jul, [facility] [address] [address] Jun, Abnormal mammogram R92.8 [facility] [address] [address] Apr, [facility] [address] [address] Apr, [facility] [address] [address] Mar, [facility] [address] [address] Mar, 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 [facility] [address] [address] Feb, [facility] [address] [address] Jan, [facility] [address] [address] December, [facility] [address] [address] Nov, [facility] [address] [address] Nov, [facility] [address] [address] Oct, [facility] [address] [id number] [place] [address] Oct, [facility] [address] [id number] [place] [address] Oct, [facility] [address] [id number] [place] [address] Oct, [facility] [address] [id number] [place] [address] Oct, [facility] [address] [id number] [place] [address] Oct, [facility] [address] [id number] [place] [address] Sep, [facility] [address] [id number] [place] [address] Sep, [facility] [address] [id number] [place] [address] Sep, [facility] [address] [id number] [place] [address] Sep, [facility] [address] [id number] [place] [address] Aug, [facility] [address] [id number] [place] [address] Aug, [facility] [address] [id number] [place] [address] Aug, [facility] [address] [id number] [place] [address] Aug, [facility] [address] [id number] [place] [address] Aug, [facility] [address] [id number] [place] [address] Aug, [facility] [address] [id number] [place] [address] Jul, [facility] [address] [id number] [place] [address] Jul, [facility] [address] [id number] [place] [address] Jul, [facility] [address] [id number] [place] [address] Jul, [facility] [address] [id number] [place] [address] Jul, [facility] [address] [id number] [place] [address] Jul, [facility] [address] [id number] [place] [address] Jun, [facility] [address] [id number] [place] [address] Jun, [facility] [id number] [place] [address] Jun, [facility] [address] [id number] [place] [address] Jun, [facility] [address] [id number] [place] [address] Jun, [facility] [address] [id number] [place] [address] Jun, [facility] [address] [id number] [place] [address] Jun, [facility] [address] [id number] [place] [address] Jun, [facility] [address] [id number] [place] [address] Jun, [facility] [id number] [place] [address] May, [facility] [address] [id number] [place] [address] May, [facility] [address] [id number] [place] [address] Apr, [facility] [address] [id number] [place] [address] Apr, 2013 [facility] [address] [id number] [place] [address] Apr, 2013 [facility] [address] [facility] [address] [id number] [place] [address] Apr, 2013 [facility] [address] [id number] [place] [address] Apr, 2013 [facility] [address] [id number] [place] [address] Apr, 2013 [facility] [address] [id number] [place] [address] Apr, 2013 [facility] [address] [id number] [place] [address] Apr, 2013 [facility] [address] [id number] [place] [address] Apr, 2013 [facility] [address] [id number] [place] [address] Apr, 2013 [facility] [address] [id number] [place] [address] Mar, [facility] [address] [id number] [place] [address] Mar, [facility] [address] [id number] [place] [address] Mar, [facility] [address] [id number] [place] [address] Mar, [facility] [address] [id number] [place] [address] Mar, [facility] [address] [id number] [place] [address] Mar, [facility] [address] [id number] [place] [address] Feb, [facility] [address] [id number] [place] [address] Feb, [facility] [address] [facility] [address] [id number] [facility] [place] [address] Feb, [facility] [address] [facility] [address] [id number] [facility] [place] [address] Feb, [facility] [address] [facility] [address] [id number] [facility] [place] [address] Jan, [facility] [address] [facility] [address] [id number] [facility] [place] [address] Jan, [facility] [address] [facility] [address] [id number] [facility] [place] [address] Jan, [facility] [address] [facility] [address] [id number] [place] [address] Jan, [facility] [address] [id number] [place] [address] Oct, [facility] [address] [id number] [place] [address] Oct, [facility] [address] [facility] [address] [id number] [place] [address] Sep, [facility] [address] [id number] [place] [address] Sep, [facility] [address] [id number] [place] [address] Sep, [facility] [address] [id number] [place] [address] Sep, [facility] [address] [facility] [address] [id number] [place] [address] Aug, [facility] [address] [facility] [address] [id number] [place] [address] Aug, [facility] [address] [facility] [address] [id number] [place] [address] Aug, [facility] [address] [id number] [place] [address] Aug, [facility] [address] [id number] [place] [address] 30 Jul, 2012 [facility] [address] [id number] [place] [address] 30 Jul, 2013 [facility] [address] [id number] [place] [address] 14 Jul, 2013 [facility] [address] [id number] [place] [address] 14 Jul, 2013 [facility] [address] [id number] [place] [address] 10 Jul, 2013 [facility] [address] [id number] [place] [address] Jul, [facility] [address] [id number] [place] [address] Jun, [facility] [address] [id number] [place] [address] Jun, [facility] [address] [id number] [place] [address] Jun, [facility] [address] [id number] [place] [address] Jun, [facility] [address] [id number] [place] [address] Jun, [facility] [address] [id number] [place] [address] Jun, [facility] [address] [id number] [place] [address] May, [facility] [address] [id number] [place] [address] May, [facility] [id number] [place] [address] May, [facility] [address] [id number] [place] [address] May, [facility] [address] [id number] [place] [address] May, [facility] [address] [facility] [address] [id number] [place] [address] May, [facility] [address] [id number] [place] [address] May, [facility] [address] [id number] [place] [address] May, [facility] [address] [id number] [place] [address] Apr, [facility] [address] [id number] [place] [address] Apr, [facility] [address] [id number] [place] [address] Mar, [facility] [facility] [address] [id number] [place] [address] Mar[facility] [address] [id number] [place] [address] Mar, [facility] [address] [id number] [place] [address] Mar, [facility] [address] [id number] [place] [address] Feb, [facility] [address] [id number] [place] [address] Jan, [facility] [address] [id number] [place] [address] December, [facility] [address] [id number] [place] [address] December, [facility] [address] [id number] [place] [address] December, [facility] [address] [id number] [place] [address] Nov, [facility] [address] [id number] [place] [address] Nov, [facility] [address] [id number] [place] [address] 14 Sep, 2012 [facility] [address] [id number] [place] [address] 14 Sep, 2012 [facility] [address] [id number] [place] [address] 14 Sep, 2012 [facility] [address] [id number] [place] [address] 13 Sep, 2012 [facility] [address] [id number] [place] [address] 30 Aug, 2012 [facility] [address] [id number] [place] [address] Aug, [facility] [address] [id number] [place] [address] 08 Aug, 2012 [facility] [address] [id number] [place] [address] Aug, [facility] [id number] [place] [address] Jul, [facility] [address] [id number] [place] [address] Jul, [facility] [id number] [place] [address] Jul, [facility] [address] [id number] [place] [address] Jul, [facility] [id number] [place] [address] Jun, [facility] [address] [id number] [place] [address] Jun, [facility] [id number] [place] [address] Jun, [facility] [address] [id number] [place] [address] Jun, [facility] [address] [id number] [place] [address] May, [facility] [address] [id number] [place] [address] 18 May, 2012 [facility] [address] [id number] [place] [address] 10 May, 2012 [facility] [address] [id number] [place] [address] 10 May, 2012 [facility] [address] [id number] [place] [address] 08 May, 2012 [facility] [address] [id number] [place] [address] 10 Apr, 2012 [facility] [address] [id number] [place] [address] 08 Apr, 2012 [facility] [address] [id number] [place] [address] 07 Apr, 2012 [facility] [address] [id number] [place] [address] Apr, [facility] [address] [id number] [place] [address] Mar, [facility] [address] [id number] [place] [address] Mar, [facility] [address] [id number] [place] [address] Feb, [facility] [address] [id number] [place] [address] Feb, [facility] [address] [id number] [place] [address] Feb, [facility] [address] [id number] [place] [address] Jan, [facility] [address] [id number] [place] [address] Jan, [facility] [address] [id number] [place] [address] December, [facility] [address] [id number] [place] [address] December, [facility] [address] [id number] [place] [address] Nov, [facility] [address] [id number] [place] [address] Oct, [facility] [address] [id number] [place] [address] Oct, [facility] [id number] [place] [address] Sep, [facility] [address] [id number] [place] [address] Sep, [facility] [address] [id number] [place] [address] Aug, [facility] [address] [id number] [place] [address] Aug, [facility] [id number] [place] [address] Jul, [facility] [address] [id number] [place] [address] Jul, [facility] [id number] [place] [address] Jul, [facility] [address] [id number] [place] [address] Jun, [facility] [id number] [place] [address] Jun, [facility] [address] [id number] [place] [address] May, [facility] [address] [id number] [place] [address] May, [facility] [address] [id number] [place] [address] May, [facility] [address] [id number] [place] [address] 09 Jul, 2010 [facility] [id number] [place] [address] 08 Jul, 2010 [facility] [id number] [place] [address] 15 Jun, 2010 [facility] [id number] [place] [address] May, [facility] [id number] [place] [address] May, [facility] [id number] [place] [address] 14 Aug, 2009 [facility] [id number] [place] [address] Jul, [facility] [id number] [place] [address] Jun, [facility] [id number] [place] [address] Jun, [facility] [id number] [place] [address] Jun, [facility] [id number] [place] [address] Jun, [facility] [id number] [place] [address] Jun, [facility] [id number] [place] [address] May, [facility] [id number] [place] [address] Sep, IMMUNIZATIONS No Known Immunizations SOCIAL HISTORY Never Assessed REASON FOR VISIT PLAN OF CARE VITAL SIGNS Height 64 in 2013-10-04 Weight 269.56 lbs 2013-10-04 Temperature 98.5 degrees Fahrenheit 2013-10-04 Heart Rate 86 bpm 2013-10-04 Respiratory Rate 20 2013-10-04 Blood pressure systolic 138 mmHg 2013-10-04 Blood pressure diastolic 78 mmHg 2013-10-04 MEDICATIONS Unknown Medications RESULTS No Results PROCEDURES Procedure Date Ordered Result Body Site PROTHROMBIN TIME Oct 04, 2013 GLYCATED HEMOGLOBIN TEST Oct 04, 2013 INSTRUCTIONS MEDICATIONS ADMINISTERED No Known Medications [...]
[2020-01-28] MEDS ORDERED: RT-ALBUTEROL/IPRATROPIUM 3 ML (DUONEB) VIAL INH ONE (14:30)
[2020-01-28] MEDS ORDERED: fentaNYL INJECTION 100 MCG/2 ML AMP IVP ONE (14:30)
--- OUTSIDE RECORDS SUMMARY | 2020-01-28 14:30 | XMS REPORT ---
Author Author Katarina RODRIGUEZ Organization [facility] Address [address] [place] [address] Care Team Providers Care Cell Attendant Helper Name Role Phone GEORGINA RODRIGUEZ Unavailable PROBLEMS Type Condition ICD9-CM Code PQL65-DL Code Onset Dates Condition S tatus SNOMED Code Problem Osteoarthritis M19.90 Active 71168 5006 Problem Chronic obstructive pulmonary disease, unspecified COPD ty pe J44.9 Active 15313938 Problem Acquired hypothyroidism E03.9 Active 961995669 Problem Cigarette nicotine dependence without complication F17.210 Active 04986244 Problem Diabetes E11.9 Active 710611607 Problem High risk medication use Z79.899 Activ e 650494274 Problem Urinary incontinence, unspecified type R32 Active 991915389 Problem correction (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.01 Active 512510628 Problem Morbid obesity, unspecified obesity type E66.01 Active 060575544 Problem Other chronic pain G89.29 Active 8 9865605 Problem History of cataract surgery Z98.49 Ac tive 745770232 Problem Type 2 diabetes mellitus wit h hyperglycemia, without long-term current use of insulin E11.65 Active 55006333 Problem Encounter for immunization Z23 Act essie 401172186 Problem Irregular heart beats I49.9 Active 276489171 Problem Other urinary incontinence N39.498 Act essie 353391009 Problem Essential hypertension I10 Active 23918627 Problem Chronic atrial fibrillation I48.2 Ac tive [id number] ALLERGIES No Information ENCOUNTERS Encounter Location Date Diagnosis [facility] [address] [facility] [id number] [address] [place] [phone] Apr, Osteoarthritis M19.90 [facility] [address] [facility] [id number] [address] [place] [phone] Mar, Chronic atrial fibrillation I48.2 [facility] [address] [facility] [id number] [address] [place] [id number] Mar, Chronic atrial fibrillation I48.2 [facility] [address] [id number] [address] [place] [phone] Mar, Osteoarthritis M19.90 [facility] [address] [facility] [id number] [address] [place] [phone] Mar, Chronic atrial fibrillation I48.2 [facility] [address] [facility] [id number] [address] [place] [phone] Mar, Type 2 diabetes mellitus wit h hyperglycemia, without long-term current use of insulin E11.65 ; Chronic atrial fibrillation I48.2 and Morbid obesity E66.01 [facility] [address] [id number] [address] [place] [id number] Feb, Osteoarthritis M19.90 [facility] [address] [facility] [id number] [address] [place] [phone] Feb, Chronic atrial fibrillation I48.2 [facility] [address] [facility] [id number] [address] [place] [phone] Feb, Hyperglycemia R73.9 ; Diabet es E11.9 ; Morbid obesity E66.01 ; Acquired hypothyroidism E03.9 ; Osteoarthritis M19.90 and High risk medication use Z79.899 [facility] [address] [facility] [id number] [address] [place] [phone] Feb, Chronic atrial fibrillation I48.2 [facility] [address] [id number] [address] [place] [id number] Jan, Osteoarthritis M19.90 [facility] [address] [facility] [id number] [address] [place] [phone] Jan, Chronic atrial fibrillation I48.2 [facility] [address] [facility] [id number] [address] [place] [phone] Jan, Chronic atrial fibrillation I48.2 [facility] [address] [facility] [id number] [address] [place] [phone] Jan, Chronic atrial fibrillation I48.2 [facility] [address] [id number] [address] [place] [phone] Jan, 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 [facility] [address] [id number] [address] [place] [phone] December, [facility] [address] [id number] [address] [place] [phone] December, [facility] [address] [id number] [address] [place] [id number] December, Osteoarthritis M19.90 [facility] [address] [id number] [address] [place] [phone] Nov, [facility] [address] [id number] [address] [place] [phone] Nov, Osteoarthritis M19.90 [facility] [address] [id number] [address] [place] [phone] Oct, Osteoarthritis M19.90 [facility] [address] [id number] [address] [place] [id number] Sep, Osteoarthritis M19.90 [facility] [address] [id number] [address] [place] [phone] Sep, correction (current) use of a nticoagulants Z79.01 ; BMI 45.0-49.9, adult Z68.42 ; Diabetes E11.9 ; Chronic atrial fibrillation I48.2 and Chronic obstructive pulmonary disease, unspecified COPD type J44.9 [facility] [address] [id number] [address] [place] [id number] Sep, Diabetes E11.9 ; 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 ; Chronic atrial fibrillation I48.2 ; Chronic obstructive pulmonary disease, unspecified COPD type J44.9 and BMI 45.0-49.9, adult Z68.42 [facility] [address] [id number] [address] [place] [phone] Aug, Osteoarthritis M19.90 [facility] [address] [id number] [address] [place] [id number] Aug, [facility] [address] [id number] [address] [place] [address] Aug, correction (current) use of a nticoagulants Z79.01 ; BMI 45.0-49.9, adult Z68.42 ; Diabetes E11.9 and Chronic atrial fibrillation I48.2 [facility] [address] [id number] [address] [place] [phone] Aug, [facility] [address] [id number] [address] [place] [phone] Jul, Osteoarthritis M19.90 [facility] [address] [facility] [id number] [address] [place] [phone] Jun, Osteoarthritis M19.90 [facility] [address] [id number] [address] [place] [phone] Jun, correction (current) use of a nticoagulants Z79.01 [facility] [address] [facility] [id number] [address] [place] [phone] Jun, Chronic atrial fibrillation I48.2 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 [facility] [address] [id number] [address] [place] [id number] Jun, Osteoarthritis M19.90 [facility] [address] [id number] [address] [place] [phone] May, Encounter for immunization Z 23 [facility] [address] [facility] [id number] [address] [place] [phone] May, correction (current) use of a nticoagulants Z79.01 [facility] [address] [facility] [id number] [address] [place] [phone] May, Osteoarthritis M19.90 [facility] [address] [facility] [id number] [address] [place] [id number] May, [facility] [address] [facility] [id number] [address] [place] [id number] May, Diabetes E11.9 ; 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 ; Chronic atrial fibrillation I48.2 ; BMI 45.0-49.9, adult Z68.42 ; Osteoarthritis M19.90 ; Low back pain M54.5 and Other chronic pain G89.29 [facility] [address] [id number] [address] [place] [phone] 20 Apr, 2018 Chronic atrial fibrillation I48.2 [facility] [address] [facility] [id number] [address] [place] [phone] 13 Apr, 2018 correction (current) use of a nticoagulants Z79.01 [facility] [address] [facility] [id number] [address] [place] [phone] 07 Apr, 2018 Osteoarthritis M19.90 [facility] [address] [facility] [id number] [address] [place] [phone] 04 Apr, 2018 correction (current) use of a nticoagulants Z79.01 and Chronic atrial fibrillation I48.2 [facility] [address] [facility] [id number] [address] [place] [phone] Mar, Osteoarthritis M19.90 [facility] [address] [facility] [id number] [address] [place] [phone] Feb, Osteoarthritis M19.90 [facility] [address] [facility] [id number] [address] [place] [id number] Jan, Osteoarthritis M19.90 [facility] [address] [facility] [id number] [address] [place] [phone] December, [facility] [address] [facility] [id number] [address] [place] [phone] December, Osteoarthritis M19.90 [facility] [address] [facility] [id number] [address] [place] [phone] Nov, Diabetes E11.9 ; correction ( 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.01 ; Acquired hypothyroidism E03.9 ; Cigarette nicotine dependence without complication F17.210 ; Osteoarthritis M19.90 ; BMI 45.0-49.9, adult Z68.42 and Chronic atrial fibrillation I48.2 [facility] [id number] [place] [phone] Nov, Osteoarthritis M19.90 [facility] [address] [place] [id number] [place] [phone] Oct, Osteoarthritis M19.90 [place] [address] [address] Oct, correction (current) use of a nticoagulants Z79.01 [facility] [address] [place] [id number] [address] [place] [phone] Sep, Osteoarthritis M19.90 [place] [address] [place] [id number] [address] [place] [phone] Sep, [facility] [address] [place] [id number] [address] [place] [phone] Aug, Osteoarthritis M19.90 [place] [address] [place] [id number] [place] [phone] Jul, Osteoarthritis M19.90 [place] [address] [place] [id number] [address] [place] [phone] Jul, Osteoarthritis M19.90 [place] [address] [place] [id number] [place] [phone] Jun, Diabetes E11.9 ; Encounter f or immunization Z23 ; correction (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.01 ; Chronic atrial fibrillation I48.2 ; Osteoarthritis M19.90 ; Tobacco abuse Z72.0 and Bug bite, initial encounter W57.XXXA [place] [address] [place] [id number] [address] [place] [phone] May, Osteoarthritis M19.90 [place] [address] [id number] [address] [place] [phone] Apr, Osteoarthritis M19.90 [facility] [address] [id number] [address] [place] [phone] Mar, Chronic atrial fibrillation I48.2 [facility] [address] [id number] [address] [place] [phone] Mar, [facility] [address] [id number] [address] [place] [phone] Mar, Osteoarthritis M19.90 [facility] [address] [id number] [address] [place] [phone] Mar, correction (current) use of a nticoagulants Z79.01 and Chronic atrial fibrillation I48.2 [facility] [address] [id number] [address] [place] [phone] Mar, Chronic atrial fibrillation I48.2 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 [facility] [address] [id number] [address] [place] [phone] Mar, 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 [facility] [address] [id number] [address] [place] [phone] Mar, 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 [facility] [address] [id number] [address] [place] [id number] Mar, Osteoarthritis M19.90 [facility] [address] [id number] [address] [place] [phone] Feb, Encounter for screening mamm ogram for malignant neoplasm of breast Z12.31 [facility] [address] [id number] [address] [place] [phone] Feb, Osteoarthritis M19.90 [facility] [address] [id number] [address] [place] [phone] Jan, [facility] [address] [id number] [address] [place] [phone] Jan, 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 ; Diabetes E11.9 ; Osteoarthritis M19.90 and Breast cancer screening Z12.39 [facility] [address] [id number] [address] [place] [id number] Jan, Osteoarthritis M19.90 [facility] [address] [id number] [address] [place] [phone] Jan, Osteoarthritis M19.90 [facility] [address] [id number] [address] [place] [phone] Jan, [facility] [address] [facility] [id number] [address] [place] [phone] December, Osteoarthritis M19.90 [facility] [address] [id number] [address] [place] [id number] December, Osteoarthritis M19.90 [facility] [id number] [place] [id number] Nov, [facility] [address] [facility] [id number] [address] [place] [phone] Nov, [facility] [address] [facility] [id number] [address] [place] [phone] Nov, [facility] [address] [facility] [id number] [address] [place] [phone] Nov, Diabetes E11.9 [facility] [address] [id number] [address] [place] [id number] Nov, [facility] [address] [facility] [id number] [address] [place] [phone] Oct, Osteoarthritis M19.90 [facility] [address] [facility] [id number] [address] [place] [phone] Oct, Osteoarthritis M19.90 ; correction (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.01 ; Diabetes E11.9 ; Cigarette nicotine dependence without complication F17.210 and Chronic atrial fibrillation I48.2 [place] [address] [address] Aug, [facility] [address] [place] [id number] [place] [phone] Aug, 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 [facility] [address] [place] [id number] [address] [place] [phone] Aug, [facility] [address] [place] [id number] [place] [address] [id number] Aug, [place] [address] [phone] Aug, [place] [address] [address] Aug, [facility] [address] [place] [id number] [place] [id number] Aug, [facility] [address] [place] [id number] Aug Osteoarthritis M19.90 and Essential hypertension I10 [place] [address] [place] [id number] [address] [place] [phone] Aug, Other urinary incontinence N 39.498 [place] [address] [place] [id number] [address] [place] [address] Jul, Osteoarthritis M19.90 [place] [address] [place] [id number] [address] [place] [address] Jun, Diabetes E11.9 ; Encounter f or immunization Z23 ; Osteoarthritis M19.90 ; correction (current) use of anticoagulants Z79.01 ; Cigarette nicotine dependence without complication F17.210 ; Acquired hypothyroidism E03.9 ; Morbid obesity, unspecified obesity type E66.01 and Irregular heart beats I49.9 [place] [address] [place] [id number] [address] [place] [address] Jun, Osteoarthritis M19.90 [facility] [address] [facility] [id number] [address] [place] [phone] May, Osteoarthritis M19.90 [facility] [address] [place] [id number] [address] [place] [phone] May, Urinary incontinence, unspec ified type R32 [facility] [address] [place] [id number] [address] [place] [id number] May, [facility] [address] [address] Apr, Osteoarthritis M19.90 [facility] [address] [address] Apr, correction (current) use of a nticoagulants Z79.01 [facility] [address] [address] Apr, [facility] [address] [address] Apr, Osteoarthritis M19.90 [facility] [address] [address] Mar, Diabetes E11.9 ; Hypothyroid ism, unspecified type E03.9 ; Osteoarthritis M19.90 ; High risk medication use Z79.899 ; Cigarette nicotine dependence without complication F17.210 and Morbid obesity, unspecified obesity type E66.01 [facility] [address] [place] [address] Mar, Osteoarthritis M19.90 [facility] [address] [facility] [id number] [address] [place] [phone] December, Osteoarthritis M19.90 [facility] [address] [place] [id number] [address] [place] [id number] December, [facility] [address] [place] [id number] [address] [place] [phone] Oct, [facility] [address] [facility] [id number] [address] [place] [phone] Oct, [facility] [address] [facility] [id number] [address] [place] [phone] Aug, [facility] [address] [facility] [id number] [address] [place] [phone] Jul, [facility] [address] [facility] [id number] [address] [place] [phone] Jul, [facility] [address] [facility] [id number] [address] [place] [phone] Jul, Diabetes E11.9 ; Encounter f or immunization Z23 ; Abnormal mammogram R92.8 ; Acquired hypothyroidism E03.9 ; High risk medication use Z79.899 ; Osteoarthritis M19.90 and Cigarette nicotine dependence without complication F17.210 [facility] [address] [facility] [id number] [address] [place] [phone] Jul, [facility] [address] [facility] [id number] [address] [place] [id number] Jun, Abnormal mammogram R92.8 [facility] [address] [place] [id number] [address] [place] [phone] Apr, [facility] [address] [facility] [id number] [address] [place] [phone] Apr, [facility] [address] [facility] [id number] [address] [place] [phone] Mar, [facility] [address] [facility] [id number] [address] [place] [phone] Mar, Current use of penitentiary ant 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 V58.61 [facility] [address] [facility] [id number] [address] [place] [phone] Feb, [facility] [address] [facility] [id number] [address] [place] [phone] Jan, [facility] [address] [facility] [id number] [address] [place] [phone] December, [facility] [address] [id number] [address] [place] [address], [place] [address] Nov, [facility] [address] [id number] [address] [place] [address], [place] [address] Nov, [facility] [address] [id number] [address] [place] [address], [place] [address] Oct, [facility] [address] [id number] [address] [place] [address], [place] [address] Oct, [facility] [address] [id number] [address] [place] [address], [place] [address] Oct, [facility] [address] [id number] [address] [place] [address], [place] [address] Oct, [facility] [address] [id number] [address] [place] [address], [place] [address] Oct, [facility] [address] [id number] [address] [place] [address], [place] [address] Oct, [facility] [address] [id number] [address] [place] [address], [place] [address] Sep, [facility] [address] [id number] [address] [place] [address], [place] [address] Sep, [facility] [address] [id number] [address] [place] [address], [place] [address] Sep, [facility] [address] [id number] [address] [place] [address], [place] [address] Sep, [facility] [address] [id number] [address] [place] [address], [place] [address] Aug, [facility] [address] [id number] [address] [place] [address], [place] [address] Aug, [facility] [address] [id number] [address] [place] [id number] Aug, [facility] [address] [id number] [address] [place] [address], [place] [address] Aug, [facility] [address] [id number] [address] [place] [address], [place] [address] Aug, [facility] [address] [id number] [address] [place] [address], [place] [address] Aug, [facility] [address] [id number] [address] [place] [address], [place] [address] Jul, [facility] [address] [id number] [address] [place] [address], [place] [address] Jul, [facility] [address] [id number] [address] [place] [address], [place] [address] Jul, [facility] [address] [id number] [address] [place] [address], [place] [address] Jul, [facility] [address] [id number] [address] [place] [address], [place] [address] Jul, [facility] [address] [id number] [address] [place] [address], [place] [address] Jul, [facility] [address] [id number] [address] [place] [address], [place] [address] Jun, [facility] [address] [id number] [address] [place] [address], [place] [address] Jun, [facility] [address] [id number] [address] [place] [address], [place] [address] Jun, [facility] [address] [id number] [address] [place] [address], [place] [address] Jun, [facility] [address] [id number] [address] [place] [address], [place] [address] Jun, [facility] [address] [id number] [address] [place] [address], [place] [address] Jun, [facility] [address] [id number] [address] [address] Jun, [facility] [address] [id number] [address] [place] [address], [place] [address] Jun, [facility] [address] [id number] [address] [place] [address], [place] [address] Jun, [facility] [address] [id number] [address] [place] [address], [place] [address] May, [facility] [address] [id number] [address] [place] [address], [place] [address] May, [facility] [address] [id number] [address] [place] [address], [place] [address] Apr, [facility] [address] [id number] [address] [place] [address], [place] [address] Apr, [facility] [address] [id number] [address] [place] [address], [place] [address] Apr, [facility] [address] [id number] [address] [place] [address], [place] [address] Apr, [facility] [address] [id number] [address] [place] [address], [place] [address] Apr, [facility] [address] [id number] [address] [place] [address], [place] [address] Apr, [facility] [address] [id number] [address] [place] [address], [place] [address] Apr, [facility] [address] [id number] [address] [place] [address], [place] [address] Apr, [facility] [address] [id number] [address] [place] [address], [place] [address] Apr, [facility] [address] [id number] [address] [place] [address], [place] [address] Apr, [facility] [address] [id number] [address] [place] [address], [place] [address] Mar, [facility] [address] [id number] [address] [place] [address], [place] [address] Mar, [facility] [address] [id number] [address] [place] [address], [place] [address] Mar, [facility] [address] [id number] [address] [place] [address], [place] [address] Mar, [facility] [address] [id number] [address] [place] [address], [place] [address] Mar, [facility] [address] [id number] [address] [place] [address], [place] [address] Mar, [facility] [address] [id number] [address] [place] [address], [place] [address] Feb, [facility] [address] [id number] [address] [place] [address], [place] [address] Feb, [facility] [address] [id number] [address] [place] [address], [place] [address] Feb, [facility] [address] [id number] [address] [place] [address], [place] [address] Feb, [facility] [address] [id number] [address] [place] [address], [place] [address] Jan, [facility] [address] [id number] [address] [place] [address], [place] [address] Jan, [facility] [address] [id number] [address] [place] [address], [place] [address] Jan, [facility] [address] [id number] [address] [place] [address], [place] [address] Jan, [facility] [address] [id number] [address] [place] [address], [place] [address] Oct, [facility] [address] [id number] [address] [place] [address], [place] [address] Oct, [facility] [address] [id number] [address] [place] [address], [place] [address] Sep, [facility] [address] [id number] [address] [place] [address], [place] [address] Sep, [facility] [address] [id number] [address] [place] [address], [place] [address] Sep, [facility] [address] [id number] [address] [place] [address], [place] [address] Sep, [facility] [address] [id number] [address] [place] [address], [place] [address] Aug, [facility] [address] [id number] [address] [place] [address], [place] [address] Aug, [facility] [address] [id number] [address] [place] [address], [place] [address] Aug, [facility] [address] [id number] [address] [place] [address], [place] [address] Aug, [facility] [address] [id number] [address] [place] [address], [place] [address] Jul, [facility] [address] [id number] [address] [place] [address], [place] [address] Jul, [facility] [address] [id number] [address] [place] [address], [place] [address] Jul, [facility] [address] [id number] [address] [place] [address], [place] [address] Jul, [facility] [address] [id number] [address] [place] [address], [place] [address] Jul, [facility] [address] [id number] [address] [place] [address], [place] [address] Jul, [facility] [address] [id number] [address] [place] [address], [place] [address] Jun, [facility] [address] [id number] [address] [place] [address], [place] [address] Jun, [facility] [address] [id number] [address] [place] [address], [place] [address] Jun, [facility] [address] [id number] [address] [place] [address], [place] [address] Jun, [facility] [address] [id number] [address] [place] [address], [place] [address] Jun, [facility] [address] [id number] [address] [place] [address], [place] [address] Jun, [facility] [address] [id number] [address] [place] [address], [place] [address] May, [facility] [address] [id number] [address] [place] [address], [place] [address] May, [facility] [address] [id number] [address] [place] [address], [place] [address] May, [facility] [address] [id number] [address] [place] [address], [place] [address] May, [facility] [address] [id number] [address] [place] [address], [place] [address] May, [facility] [address] [id number] [address] [place] [address], [place] [address] May, [facility] [address] [id number] [address] [place] [address], [place] [address] May, [facility] [address] [id number] [address] [place] [address], [place] [address] May, [facility] [address] [id number] [address] [place] [address], [place] [address] Apr, [facility] [address] [id number] [address] [place] [address], [place] [address] Apr, [facility] [address] [id number] [address] [place] [address], [place] [address] Mar, [facility] [address] [id number] [address] [place] [address], [place] [address] Mar, [facility] [address] [id number] [address] [place] [address], [place] [address] Mar, [facility] [address] [id number] [address] [place] [address], [place] [address] Mar, [facility] [address] [id number] [address] [place] [address], [place] [address] Feb, [facility] [address] [id number] [address] [place] [address], [place] [address] Jan, [facility] [address] [id number] [address] [place] [address], [place] [address] December, [facility] [address] [id number] [address] [place] [address], [place] [address] December, [facility] [address] [id number] [address] [place] [address], [place] [address] December, [facility] [address] [id number] [address] [place] [address], [place] [address] Nov, [facility] [address] [id number] [address] [place] [address], [place] [address] Nov, [facility] [address] [id number] [address] [place] [address], [place] [address] Sep, [facility] [address] [id number] [address] [place] [address], [place] [address] Sep, [facility] [address] [id number] [address] [place] [address], [place] [address] Sep, [facility] [address] [id number] [address] [place] [address], [place] [address] Sep, [facility] [address] [id number] [address] [place] [address], [place] [address] Aug, [facility] [address] [id number] [address] [place] [address], [place] [address] Aug, [facility] [address] [id number] [address] [place] [address] 08 Aug, 2012 [facility] [address] [id number] [address] [place] [address], [place] [address] Aug, [facility] [address] [id number] [address] [place] [address], [place] [address] Jul, [facility] [address] [id number] [address] [place] [address], [place] [address] Jul, [facility] [address] [id number] [address] [place] [address], [place] [address] Jul, [facility] [address] [id number] [address] [place] [address], [place] [address] Jul, [facility] [address] [id number] [address] [place] [address], [place] [address] Jun, [facility] [address] [id number] [address] [place] [address], [place] [address] Jun, [facility] [address] [id number] [address] [place] [address], [place] [address] Jun, [facility] [address] [id number] [address] [place] [address], [place] [address] Jun, [facility] [address] [id number] [address] [place] [address], [place] [address] May, [facility] [address] [id number] [address] [place] [address], [place] [address] May, [facility] [address] [id number] [address] [place] [address] May, [facility] [address] [id number] [address] [place] [address], [place] [address] May, [facility] [address] [id number] [address] [place] [address], [place] [address] 08 May, 2012 [facility] [address] [id number] [address] [place] [address], [place] [address] Apr, [facility] [address] [id number] [address] [place] [address], [place] [address] 08 Apr, 2012 [facility] [address] [id number] [address] [place] [address], [place] [address] 07 Apr, 2012 [facility] [address] [id number] [address] [place] [address], [place] [address] 06 Apr, 2012 [facility] [address] [id number] [address] [place] [address], [place] [address] Mar, [facility] [address] [id number] [address] [place] [address], [place] [address] Mar, [facility] [address] [id number] [address] [place] [address], [place] [address] Feb, [facility] [address] [id number] [address] [place] [address], [place] [address] Feb, [facility] [address] [id number] [address] [place] [address], [place] [address] Feb, [facility] [address] [id number] [address] [place] [address], [place] [address] Jan, [facility] [address] [id number] [address] [place] [address], [place] [address] Jan, [facility] [address] [id number] [address] [place] [address], [place] [address] December, [facility] [address] [id number] [address] [place] [address], [place] [address] December, [facility] [address] [id number] [address] [place] [address], [place] [address] Nov, [facility] [address] [id number] [address] [place] [address], [place] [address] Oct, [facility] [address] [id number] [address] [place] [address], [place] [address] Oct, [facility] [address] [id number] [address] [place] [address], [place] [address] Sep, [facility] [address] [id number] [address] [place] [address], [place] [address] Sep, [facility] [address] [id number] [address] [place] [address], [place] [address] Aug, [facility] [address] [id number] [address] [place] [address], [place] [address] Aug, [facility] [address] [id number] [address] [place] [address], [place] [address] Jul, [facility] [address] [id number] [address] [place] [address], [place] [address] Jul, [facility] [address] [id number] [address] [place] [address], [place] [address] Jul, [facility] [address] [id number] [address] [place] [address], [place] [address] Jun, [facility] [address] [id number] [address] [place] [address], [place] [address] Jun, [facility] [address] [id number] [address] [place] [address], [place] [address] May, [facility] [address] [id number] [address] [place] [address], [place] [address] May, [facility] [address] [id number] [address] [place] [address] May, [facility] [address] [id number] [address] [place] [address] Jul, [facility] [address] [id number] [address] [place] [address], [place] [address] Jul, [facility] [address] [id number] [address] [place] [id number] 15 Jun, 2010 [facility] [address] [id number] [address] [place] [address], [place] [address] May, [facility] [address] [id number] [address] [place] [address] May, [facility] [address] [id number] [address] [place] [address] Aug, [facility] [address] [id number] [address] [place] [address] Jul, [facility] [address] [facility] [id number] [address] [place] [id number] Jun, [facility] [address] [facility] [id number] [address] [place] [id number] Jun, [facility] [address] [facility] [id number] [address] [place] [id number] Jun, [facility] [address] [facility] [id number] [address] [place] [id number] Jun, [facility] [address] [facility] [id number] [address] [place] [id number] Jun, [facility] [address] [facility] [id number] [address] [place] [id number] May, [facility] [address] [facility] [id number] [address] [place] [id number] Sep, IMMUNIZATIONS No Known Immunizations SOCIAL HISTORY [...]
--- OUTSIDE RECORDS SUMMARY | 2020-01-28 14:30 | XMS REPORT ---
Author Author Katarina RODRIGUEZ Organization [facility] Address [address] [place] [address] Care Team Providers Care River Captain Name Role Phone GEORGINA RODRIGUEZ Unavailable PROBLEMS Type Condition ICD9-CM Code EMR54-YA Code Onset Dates Condition S tatus SNOMED Code Problem Osteoarthritis M19.90 Active 86787 5006 Problem Chronic obstructive pulmonary disease, unspecified COPD ty pe J44.9 Active 93134268 Problem Acquired hypothyroidism E03.9 Active 185401898 Problem Cigarette nicotine dependence without complication F17.210 Active 73325422 Problem Diabetes E11.9 Active 597415713 Problem High risk medication use Z79.899 Activ e 704458154 Problem Urinary incontinence, unspecified type R32 Active 185135226 Problem senior living (current) use of anticoagulants Z79.01 Active 630085661 Problem Morbid obesity, unspecified obesity type E66.01 Active 134455198 Problem Other chronic pain G89.29 Active 8 7598680 Problem History of cataract surgery Z98.49 Ac tive 760630543 Problem Type 2 diabetes mellitus wit h hyperglycemia, without long-term current use of insulin E11.65 Active 09933026 Problem Encounter for immunization Z23 Act essie 181135551 Problem Irregular heart beats I49.9 Active 082366955 Problem Other urinary incontinence N39.498 Act essie 233834799 Problem Essential hypertension I10 Active 76040885 Problem Chronic atrial fibrillation I48.2 Ac tive 853325398 ALLERGIES No Information ENCOUNTERS Encounter Location Date Diagnosis [facility] [address] [facility] [id number] [address] [place] [address] May, Chronic atrial fibrillation I48.2 [facility] [address] [facility] [id number] [address] [place] [address] Apr, Osteoarthritis M19.90 [facility] [address] [facility] [id number] [address] [place] [address] Mar, Chronic atrial fibrillation I48.2 [facility] [address] [id number] [address] [place] [address] Mar, Chronic atrial fibrillation I48.2 [facility] [address] [id number] [address] [place] [address] Mar, Osteoarthritis M19.90 [facility] [address] [facility] [id number] [address] [place] [address] Mar, Chronic atrial fibrillation I48.2 [facility] [address] [facility] [id number] [address] [place] [address] Mar, Type 2 diabetes mellitus wit h hyperglycemia, without long-term current use of insulin E11.65 ; Chronic atrial fibrillation I48.2 and Morbid obesity E66.01 [facility] [address] [facility] [id number] [address] [place] [address] Feb, Osteoarthritis M19.90 [facility] [address] [id number] [address] [place] [address] Feb, Chronic atrial fibrillation I48.2 [facility] [address] [facility] [id number] [address] [place] [address] Feb, Hyperglycemia R73.9 ; Diabet es E11.9 ; Morbid obesity E66.01 ; Acquired hypothyroidism E03.9 ; Osteoarthritis M19.90 and High risk medication use Z79.899 [facility] [address] [id number] [address] [place] [address] Feb, Chronic atrial fibrillation I48.2 [facility] [address] [id number] [address] [place] [address] Jan, Osteoarthritis M19.90 [facility] [address] [facility] [id number] [address] [place] [address] Jan, Chronic atrial fibrillation I48.2 [facility] [address] [facility] [id number] [address] [place] [address] Jan, Chronic atrial fibrillation I48.2 [facility] [address] [id number] [address] [place] [address] Jan, Chronic atrial fibrillation I48.2 [facility] [address] [id number] [address] [place] [address] Jan, intermission coordinator (current) use of a nticoagulants Z79.01 [facility] [address] [id number] [address] [place] [address] December, [facility] [address] [id number] [address] [place] [address] December, [facility] [address] [id number] [address] [place] [address] December, Osteoarthritis M19.90 [facility] [address] [id number] [address] [place] [address] Nov, [facility] [address] [id number] [address] [place] [address] Nov, Osteoarthritis M19.90 [facility] [address] [id number] [address] [place] [address] Oct, Osteoarthritis M19.90 [facility] [address] [facility] [id number] [address] [place] [address] Sep, Osteoarthritis M19.90 [facility] [address] [facility] [id number] [address] [place] [address] Sep, intermission coordinator (current) use of a nticoagulants Z79.01 ; BMI 45.0-49.9, adult Z68.42 ; Diabetes E11.9 ; Chronic atrial fibrillation I48.2 and Chronic obstructive pulmonary disease, unspecified COPD type J44.9 [facility] [address] [facility] [id number] [address] [place] [address] Sep, Diabetes E11.9 ; senior living ( current) use of anticoagulants Z79.01 ; Chronic atrial fibrillation I48.2 ; Chronic obstructive pulmonary disease, unspecified COPD type J44.9 and BMI 45.0-49.9, adult Z68.42 [facility] [address] [id number] [address] [place] [address] Aug, Osteoarthritis M19.90 [facility] [address] [id number] [address] [place] [address] Aug, [facility] [address] [id number] [address] [place] [address] Aug, intermission coordinator (current) use of a nticoagulants Z79.01 ; BMI 45.0-49.9, adult Z68.42 ; Diabetes E11.9 and Chronic atrial fibrillation I48.2 [facility] [address] [id number] [address] [place] [address] Aug, [facility] [address] [facility] [id number] [address] [place] [address] Jul, Osteoarthritis M19.90 [facility] [address] [id number] [address] [place] [address] Jun, Osteoarthritis M19.90 [facility] [address] [id number] [address] [place] [address] Jun, intermission coordinator (current) use of a nticoagulants Z79.01 [facility] [address] [facility] [id number] [address] [place] [address] Jun, Chronic atrial fibrillation I48.2 and senior living (current) use of anticoagulants Z79.01 [facility] [address] [id number] [address] [place] [address] Jun, Osteoarthritis M19.90 [facility] [address] [facility] [id number] [address] [place] [address] May, Encounter for immunization Z 23 [facility] [address] [facility] [id number] [address] [place] [address] May, senior living (current) use of a nticoagulants Z79.01 [facility] [address] [facility] [id number] [address] [place] [address] May, Osteoarthritis M19.90 [facility] [address] [facility] [id number] [address] [place] [address] May, [facility] [address] [facility] [id number] [address] [place] [address] May, Diabetes E11.9 ; intermission coordinator ( current) use of anticoagulants Z79.01 ; Chronic atrial fibrillation I48.2 ; BMI 45.0-49.9, adult Z68.42 ; Osteoarthritis M19.90 ; Low back pain M54.5 and Other chronic pain G89.29 [facility] [address] [facility] [id number] [address] [place] [address] 20 Apr, 2018 Chronic atrial fibrillation I48.2 [facility] [address] [facility] [id number] [address] [place] [address] 13 Apr, 2018 senior living (current) use of a nticoagulants Z79.01 [facility] [address] [facility] [id number] [address] [place] [address] Apr, Osteoarthritis M19.90 [facility] [address] [facility] [id number] [address] [place] [address] 04 Apr, 2018 senior living (current) use of a nticoagulants Z79.01 and Chronic atrial fibrillation I48.2 [facility] [address] [facility] [id number] [address] [place] [address] Mar, Osteoarthritis M19.90 [facility] [address] [facility] [id number] [address] [place] [address] Feb, Osteoarthritis M19.90 [facility] [address] [facility] [id number] [address] [place] [address] Jan, Osteoarthritis M19.90 [facility] [address] [facility] [id number] [address] [place] [address] December, [facility] [address] [place] [id number] [address] [place] [address] December, Osteoarthritis M19.90 [facility] [address] [place] [id number] [address] [place] [address] Nov, Diabetes E11.9 ; intermission coordinator ( current) use of anticoagulants Z79.01 ; Acquired hypothyroidism E03.9 ; Cigarette nicotine dependence without complication F17.210 ; Osteoarthritis M19.90 ; BMI 45.0-49.9, adult Z68.42 and Chronic atrial fibrillation I48.2 [facility] [id number] [place] [address] Nov, Osteoarthritis M19.90 [facility] [address] [place] [id number] [place] [address] Oct, Osteoarthritis M19.90 [facility] [address] [place] [id number] [place] [address] Oct, senior living (current) use of a nticoagulants Z79.01 [facility] [address] [place] [id number] [address] [place] [address] Sep, Osteoarthritis M19.90 [facility] [address] [place] [id number] [address] [place] [address] Sep, [facility] [address] [address] Aug, Osteoarthritis M19.90 [facility] [address] [address] Jul, Osteoarthritis M19.90 [facility] [address] [place] [id number] [address] [place] [address] Jul, Osteoarthritis M19.90 [facility] [address] [address] Jun, Diabetes E11.9 ; Encounter f or immunization Z23 ; senior living (current) use of anticoagulants Z79.01 ; Chronic atrial fibrillation I48.2 ; Osteoarthritis M19.90 ; Tobacco abuse Z72.0 and Bug bite, initial encounter W57.XXXA [facility] [address] [id number] [address] [place] [address] May, Osteoarthritis M19.90 [facility] [address] [id number] [address] [place] [address] Apr, Osteoarthritis M19.90 [facility] [address] [id number] [address] [place] [address] Mar, Chronic atrial fibrillation I48.2 [facility] [address] [id number] [address] [place] [address] Mar, [facility] [address] [id number] [address] [place] [address] Mar, Osteoarthritis M19.90 [facility] [address] [facility] [id number] [address] [place] [address] Mar, senior living (current) use of a nticoagulants Z79.01 and Chronic atrial fibrillation I48.2 [place] [address] [id number] [address] [place] [address] Mar, Chronic atrial fibrillation I48.2 and senior living (current) use of anticoagulants Z79.01 [place] [address] [id number] [address] [place] [address] Mar, senior living (current) use of a nticoagulants Z79.01 [place] [address] [facility] [id number] [address] [place] [address] Mar, intermission coordinator (current) use of a nticoagulants Z79.01 [facility] [address] [id number] [address] [place] [address] Mar, Osteoarthritis M19.90 [facility] [address] [facility] [id number] [address] [place] [address] Feb, Encounter for screening mamm ogram for malignant neoplasm of breast Z12.31 [facility] [address] [id number] [address] [place] [address] Feb, Osteoarthritis M19.90 [facility] [address] [facility] [id number] [address] [place] [address] Jan, [facility] [address] [id number] [address] [place] [address] Jan, senior living (current) use of a nticoagulants Z79.01 ; Diabetes E11.9 ; Osteoarthritis M19.90 and Breast cancer screening Z12.39 [facility] [address] [id number] [address] [place] [address] Jan, Osteoarthritis M19.90 [facility] [address] [id number] [address] [place] [address] Jan, Osteoarthritis M19.90 [facility] [address] [facility] [id number] [address] [place] [address] Jan, [facility] [address] [facility] [id number] [address] [place] [address] December, Osteoarthritis M19.90 [facility] [address] [id number] [address] [place] [address] December, Osteoarthritis M19.90 [facility] [id number] [place] [id number] Nov, [facility] [address] [facility] [id number] [address] [place] [address] Nov, [facility] [address] [facility] [id number] [address] [place] [address] Nov, [facility] [address] [facility] [id number] [address] [place] [address] Nov, Diabetes E11.9 [facility] [address] [id number] [address] [place] [address] Nov, [facility] [address] [facility] [id number] [address] [place] [address] Oct, Osteoarthritis M19.90 [facility] [address] [address] Oct, Osteoarthritis M19.90 ; intermission coordinator (current) use of anticoagulants Z79.01 ; Diabetes E11.9 ; Cigarette nicotine dependence without complication F17.210 and Chronic atrial fibrillation I48.2 [facility] [address] [place] [id number] [address] [place] [address] Aug, [place] [address] [address] Aug, intermission coordinator (current) use of a nticoagulants Z79.01 [place] [address] [address] Aug, [place] [address] [place] [id number] [place] [id number] Aug, [place] [address] [address] Aug, [place] [address] [address] Aug, [facility] [address] [id number] [id number] Aug, [facility] [address] [place] [id number] Aug Osteoarthritis M19.90 and Essential hypertension I10 [place] [address] [address] Aug, Other urinary incontinence N 39.498 [place] [address] [place] [id number] [address] [place] [address] Jul, Osteoarthritis M19.90 [place] [address] [address] Jun, Diabetes E11.9 ; Encounter f or immunization Z23 ; Osteoarthritis M19.90 ; senior living (current) use of anticoagulants Z79.01 ; Cigarette nicotine dependence without complication F17.210 ; Acquired hypothyroidism E03.9 ; Morbid obesity, unspecified obesity type E66.01 and Irregular heart beats I49.9 [facility] [address] [facility] [id number] [address] [place] [address] Jun, Osteoarthritis M19.90 [facility] [address] [facility] [id number] [address] [place] [address] May, Osteoarthritis M19.90 [facility] [address] [facility] [id number] [address] [place] [address] May, Urinary incontinence, unspec ified type R32 [facility] [address] [facility] [id number] [address] [place] [address] May, [facility] [address] [facility] [id number] [address] [place] [address] Apr, Osteoarthritis M19.90 [place] [address] [place] [id number] [address] [place] [address] Apr, intermission coordinator (current) use of a nticoagulants Z79.01 [facility] [address] [facility] [id number] [address] [place] [address] Apr, [facility] [address] [facility] [id number] [address] [place] [address] Apr, Osteoarthritis M19.90 [facility] [address] [facility] [id number] [address] [place] [address] Mar, Diabetes E11.9 ; Hypothyroid ism, unspecified type E03.9 ; Osteoarthritis M19.90 ; High risk medication use Z79.899 ; Cigarette nicotine dependence without complication F17.210 and Morbid obesity, unspecified obesity type E66.01 [facility] [address] [facility] [id number] [address] [place] [address] Mar, Osteoarthritis M19.90 [facility] [address] [facility] [id number] [address] [place] [address] December, Osteoarthritis M19.90 [facility] [address] [place] [id number] [address] [place] [address] December, [facility] [address] [id number] [address] [place] [address] Oct, [facility] [address] [facility] [id number] [address] [place] [address] Oct, [facility] [address] [facility] [id number] [address] [place] [address] Aug, [facility] [address] [id number] [address] [place] [address] Jul, [facility] [address] [id number] [address] [place] [address] Jul, [facility] [address] [facility] [id number] [address] [place] [address] Jul, Diabetes E11.9 ; Encounter f or immunization Z23 ; Abnormal mammogram R92.8 ; Acquired hypothyroidism E03.9 ; High risk medication use Z79.899 ; Osteoarthritis M19.90 and Cigarette nicotine dependence without complication F17.210 [facility] [address] [id number] [address] [place] [address] Jul, [facility] [address] [facility] [id number] [address] [place] [address] Jun, Abnormal mammogram R92.8 [facility] [address] [facility] [id number] [address] [place] [address] Apr, [facility] [address] [id number] [address] [place] [address] Apr, [facility] [address] [facility] [id number] [address] [place] [address] Mar, [facility] [address] [facility] [id number] [address] [place] [address] Mar, Current use of senior living ant 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 V58.61 [facility] [address] [facility] [id number] [address] [place] [address] Feb, [facility] [address] [id number] [address] [place] [address], [place] [address] Jan, [facility] [address] [id number] [address] [place] [address], [place] [address] December, [facility] [address] [id number] [address] [place] [address], [place] [address] Nov, [facility] [address] [id number] [address] [place] [address], [place] [address] Nov, [facility] [address] [id number] [address] [place] [address], [place] [address] Oct, [facility] [address] [id number] [address] [place] [address], [place] [address] Oct, [facility] [address] [id number] [address] [place] [address], [place] [address] Oct, [facility] [address] [id number] [address] [place] [address], [place] [address] Oct, [facility] [address] [id number] [address] [place] [address], [place] [address] Oct, [facility] [address] [id number] [address] [place] [address], [place] [address] Oct, [facility] [address] [id number] [address] [place] [address], [place] [address] Sep, [facility] [address] [id number] [address] [place] [address], [place] [address] Sep, [facility] [address] [id number] [address] [place] [address], [place] [address] Sep, [facility] [address] [id number] [address] [place] [address], [place] [address] Sep, [facility] [address] [id number] [address] [place] [address], [place] [address] Aug, [facility] [address] [id number] [address] [place] [address], [place] [address] Aug, [facility] [address] [id number] [address] [place] [address], [place] [address] Aug, [facility] [address] [id number] [address] [place] [address], [place] [address] Aug, [facility] [address] [id number] [address] [place] [address], [place] [address] Aug, [facility] [address] [id number] [address] [place] [address], [place] [address] Aug, [facility] [address] [id number] [address] [place] [address], [place] [address] Jul, [facility] [facility] [address] [id number] [address] [place] [address], [place] [address] Jul, [facility] [address] [id number] [address] [place] [address], [place] [address] Jul, [facility] [address] [id number] [address] [place] [address], [place] [address] Jul, [facility] [address] [id number] [address] [place] [address], [place] [address] Jul, [facility] [address] [id number] [address] [place] [address], [place] [address] Jul, [facility] [address] [id number] [address] [place] [address], [place] [address] Jun, [facility] [address] [id number] [address] [place] [address], [place] [address] Jun, [facility] [address] [id number] [address] [place] [address], [place] [address] Jun, [facility] [address] [id number] [address] [place] [address], [place] [address] Jun, [facility] [address] [id number] [address] [place] [address], [place] [address] Jun, [facility] [address] [id number] [address] [place] [address], [place] [address] Jun, [facility] [address] [id number] [address] [place] [address], [place] [address] Jun, [facility] [address] [id number] [address] [place] [address], [place] [address] Jun, [facility] [address] [id number] [address] [place] [address], [place] [address] Jun, [facility] [address] [id number] [address] [place] [address], [place] [address] May, [facility] [address] [id number] [address] [place] [address], [place] [address] May, [facility] [address] [id number] [address] [place] [address], [place] [address] Apr, [facility] [address] [id number] [address] [place] [address], [place] [address] Apr, 2013 [facility] [address] [id number] [address] [place] [address], [place] [address] Apr, 2013 [facility] [address] [id number] [address] [place] [address], [place] [address] Apr, 2013 [facility] [address] [id number] [address] [place] [address], [place] [address] Apr, 2013 [facility] [address] [id number] [address] [place] [address], [place] [address] 11 Apr, 2013 [facility] [address] [id number] [address] [place] [address], [place] [address] 11 Apr, 2013 [facility] [address] [id number] [address] [place] [address], [place] [address] 11 Apr, 2013 [facility] [address] [id number] [address] [place] [address], [place] [address] Apr, 2013 [facility] [address] [id number] [address] [place] [address], [place] [address] 03 Sep, 2013 [facility] [address] [id number] [address] [place] [address], [place] [address] Mar, [facility] [address] [id number] [address] [place] [address], [place] [address] Mar, [facility] [address] [id number] [address] [place] [address], [place] [address] Mar, [facility] [address] [id number] [address] [place] [address], [place] [address] Mar, [facility] [address] [id number] [address] [place] [address], [place] [address] Mar, [facility] [address] [id number] [address] [place] [address], [place] [address] Mar, [facility] [address] [id number] [address] [place] [address], [place] [address] Feb, [facility] [address] [id number] [address] [place] [address], [place] [address] Feb, [facility] [address] [id number] [address] [place] [address], [place] [address] Feb, [facility] [address] [id number] [address] [place] [address], [place] [address] Feb, [facility] [address] [id number] [address] [place] [address], [place] [address] Jan, [facility] [address] [id number] [address] [place] [address], [place] [address] Jan, [facility] [address] [id number] [address] [place] [address], [place] [address] Jan, [facility] [address] [id number] [address] [place] [address], [place] [address] Jan, [facility] [address] [id number] [address] [place] [address], [place] [address] Oct, [facility] [address] [id number] [address] [place] [address], [place] [address] Oct, [facility] [address] [id number] [address] [place] [address], [place] [address] Sep, [facility] [address] [id number] [address] [place] [address], [place] [address] Sep, [facility] [address] [id number] [address] [place] [address], [place] [address] Sep, [facility] [address] [id number] [address] [place] [address], [place] [address] Sep, [facility] [address] [id number] [address] [place] [address], [place] [address] Aug, [facility] [address] [id number] [address] [place] [address], [place] [address] Aug, [facility] [address] [id number] [address] [place] [address], [place] [address] Aug, [facility] [address] [id number] [address] [place] [address], [place] [address] Aug, [facility] [address] [id number] [address] [place] [address], [place] [address] Jul, [facility] [address] [id number] [address] [place] [address], [place] [address] 30 Jul, 2013 [facility] [address] [id number] [address] [place] [address], [place] [address] Jul, [facility] [address] [id number] [address] [place] [address], [place] [address] 14 Jul, 2013 [facility] [address] [id number] [address] [place] [address], [place] [address] Jul, [facility] [address] [id number] [address] [place] [address], [place] [address] Jul, [facility] [address] [id number] [address] [place] [address], [place] [address] 29 Jun, 2013 [facility] [address] [id number] [address] [place] [address], [place] [address] Jun, [facility] [address] [id number] [address] [place] [address], [place] [address] Jun, [facility] [address] [id number] [address] [place] [address], [place] [address] Jun, [facility] [address] [id number] [address] [place] [address], [place] [address] Jun, [facility] [address] [id number] [address] [place] [address], [place] [address] Jun, [facility] [address] [id number] [address] [place] [address], [place] [address] May, [facility] [address] [id number] [address] [place] [address], [place] [address] May, [facility] [address] [id number] [address] [place] [address], [place] [address] May, [facility] [address] [id number] [address] [place] [address], [place] [address] May, [facility] [address] [id number] [address] [place] [address], [place] [address] May, [facility] [address] [id number] [address] [place] [address], [place] [address] May, [facility] [address] [id number] [address] [place] [address], [place] [address] May, [facility] [address] [id number] [address] [place] [address], [place] [address] May, [facility] [address] [id number] [address] [place] [address], [place] [address] 30 Apr, 2013 [facility] [address] [id number] [address] [place] [address], [place] [address] Apr, [facility] [address] [id number] [address] [place] [address], [place] [address] Mar, [facility] [address] [id number] [address] [place] [address], [place] [address] Mar, [facility] [address] [id number] [address] [place] [address], [place] [address] Mar, [facility] [address] [id number] [address] [place] [address], [place] [address] Mar, [facility] [address] [id number] [address] [place] [address], [place] [address] Feb, [facility] [address] [id number] [address] [place] [address], [place] [address] Jan, [facility] [address] [id number] [address] [place] [address], [place] [address] December, [facility] [address] [id number] [address] [place] [address], [place] [address] December, [facility] [address] [id number] [address] [place] [address], [place] [address] December, [facility] [address] [id number] [address] [place] [address], [place] [address] Nov, [facility] [address] [id number] [address] [place] [address], [place] [address] Nov, [facility] [address] [id number] [address] [place] [address], [place] [address] Sep, [facility] [address] [id number] [address] [place] [address], [place] [address] Sep, [facility] [address] [id number] [address] [place] [address], [place] [address] Sep, [facility] [address] [id number] [address] [place] [address], [place] [address] Sep, [facility] [address] [id number] [address] [place] [address], [place] [address] Aug, [facility] [address] [id number] [address] [place] [address], [place] [address] 10 Aug, 2012 [facility] [address] [id number] [address] [place] [address], [place] [address] Aug, [facility] [address] [id number] [address] [place] [address], [place] [address] 08 Aug, 2012 [facility] [address] [id number] [address] [place] [address], [place] [address] Jul, [facility] [address] [id number] [address] [place] [address], [place] [address] Jul, [facility] [address] [id number] [address] [place] [address], [place] [address] Jul, [facility] [address] [id number] [address] [place] [address], [place] [address] Jul, [facility] [address] [id number] [address] [place] [address], [place] [address] Jun, [facility] [address] [id number] [address] [place] [address], [place] [address] Jun, [facility] [address] [id number] [address] [place] [address], [place] [address] Jun, [facility] [address] [id number] [address] [place] [address], [place] [address] Jun, [facility] [address] [id number] [address] [place] [address], [place] [address] May, [facility] [address] [id number] [address] [place] [address], [place] [address] May, [facility] [address] [id number] [address] [place] [address], [place] [address] May, [facility] [address] [id number] [address] [place] [address], [place] [address] May, [facility] [address] [id number] [address] [place] [address], [place] [address] May, [facility] [address] [id number] [address] [place] [address], [place] [address] 10 Apr, 2012 [facility] [address] [id number] [address] [place] [address], [place] [address] 08 Apr, 2012 [facility] [address] [id number] [address] [place] [address], [place] [address] 07 Apr, 2012 [facility] [address] [id number] [address] [place] [address], [place] [address] 06 Apr, 2012 [facility] [address] [id number] [address] [place] [address], [place] [address] Mar, [facility] [address] [id number] [address] [place] [address], [place] [address] Mar, [facility] [address] [id number] [address] [place] [address], [place] [address] Feb, [facility] [address] [id number] [address] [place] [address], [place] [address] Feb, [facility] [address] [id number] [address] [place] [address], [place] [address] Feb, [facility] [address] [id number] [address] [place] [address], [place] [address] Jan, [facility] [address] [id number] [address] [place] [address], [place] [address] Jan, [facility] [address] [id number] [address] [place] [address], [place] [address] December, [facility] [address] [id number] [address] [place] [address], [place] [address] December, [facility] [address] [id number] [address] [place] [address], [place] [address] Nov, [facility] [address] [id number] [address] [place] [address], [place] [address] Oct, [facility] [address] [id number] [address] [place] [address] Oct, [facility] [address] [id number] [address] [place] [address], [place] [address] Sep, [facility] [address] [id number] [address] [place] [address] Sep, [facility] [address] [id number] [address] [place] [address], [place] [address] Aug, [facility] [address] [id number] [address] [place] [address], [place] [address] Aug, [facility] [address] [id number] [address] [place] [address], [place] [address] Jul, [facility] [address] [id number] [address] [place] [address] Jul, [facility] [address] [id number] [address] [place] [address] Jul, [facility] [address] [id number] [address] [place] [address] Jun, [facility] [address] [id number] [address] [place] [address] Jun, [facility] [address] [id number] [address] [place] [address] 13 May, 2011 [facility] [address] [id number] [address] [place] [address] May, [facility] [address] [id number] [address] [place] [address] May, [facility] [address] [id number] [address] [place] [address] 09 Jul, 2010 [facility] [address] [id number] [address] [place] [address] 08 Jul, 2010 [facility] [address] [id number] [address] [place] [address] 15 Jun, 2010 [facility] [address] [id number] [address] [place] [address] May, [facility] [address] [id number] [address] [place] [address] May, [facility] [address] [id number] [address] [place] [address] Aug, [facility] [address] [id number] [address] [place] [address] Jul, [facility] [address] [id number] [address] [place] [address] Jun, [facility] [address] [id number] [address] [place] [address] Jun, [facility] [address] [id number] [address] [place] [address] Jun, [facility] [address] [id number] [address] [place] [address] Jun, [facility] [address] [id number] [address] [place] [address] Jun, [facility] [address] [id number] [address] [place] [address] May, [facility] [address] [id number] [address] [place] [address] Sep, IMMUNIZATIONS No Known Immunizations SOCIAL HISTORY [...]
--- OUTSIDE RECORDS SUMMARY | 2020-01-28 14:30 | XMS REPORT ---
Author Author Katarina RODRIGUEZ Organization [facility] Address [address] [place] [address] Care Team Providers Care Geophysical Prospector Name Role Phone GEORGINA RODRIGUEZ Unavailable PROBLEMS Type Condition ICD9-CM Code QPZ77-WR Code Onset Dates Condition S tatus SNOMED Code Problem Osteoarthritis M19.90 Active 72229 5006 Problem Chronic obstructive pulmonary disease, unspecified COPD ty pe J44.9 Active 65878661 Problem Acquired hypothyroidism E03.9 Active 656309744 Problem Cigarette nicotine dependence without complication F17.210 Active 12161382 Problem Diabetes E11.9 Active 990605449 Problem High risk medication use Z79.899 Activ e 478814548 Problem Urinary incontinence, unspecified type R32 Active 025599753 Problem retirement (current) use of anticoagulants Z79.01 Active 214230184 Problem Morbid obesity, unspecified obesity type E66.01 Active 252205482 Problem Other chronic pain G89.29 Active 8 5657091 Problem History of cataract surgery Z98.49 Ac tive 512775008 Problem Type 2 diabetes mellitus wit h hyperglycemia, without long-term current use of insulin E11.65 Active 50347272 Problem Encounter for immunization Z23 Act essie 879398316 Problem Irregular heart beats I49.9 Active 862728427 Problem Other urinary incontinence N39.498 Act essie 728299291 Problem Essential hypertension I10 Active 82081432 Problem Chronic atrial fibrillation I48.2 Ac tive 705002596 ALLERGIES No Information ENCOUNTERS Encounter Location Date Diagnosis [facility] [address] [facility] [id number] [address] [place] [address] Apr, Osteoarthritis M19.90 [facility] [address] [facility] [id number] [address] [place] [phone] Mar, Chronic atrial fibrillation I48.2 [facility] [address] [facility] [id number] [address] [place] [address] Mar, Chronic atrial fibrillation I48.2 [facility] [address] [id number] [address] [place] [address] Mar, Osteoarthritis M19.90 [facility] [address] [facility] [id number] [address] [place] [address] Mar, Chronic atrial fibrillation I48.2 [facility] [address] [facility] [id number] [address] [place] [address] Mar, Type 2 diabetes mellitus wit h hyperglycemia, without long-term current use of insulin E11.65 ; Chronic atrial fibrillation I48.2 and Morbid obesity E66.01 [facility] [address] [id number] [address] [place] [address] Feb, Osteoarthritis M19.90 [facility] [address] [facility] [id number] [address] [place] [address] Feb, Chronic atrial fibrillation I48.2 [facility] [address] [facility] [id number] [address] [place] [address] Feb, Hyperglycemia R73.9 ; Diabet es E11.9 ; Morbid obesity E66.01 ; Acquired hypothyroidism E03.9 ; Osteoarthritis M19.90 and High risk medication use Z79.899 [facility] [address] [facility] [id number] [address] [place] [address] Feb, Chronic atrial fibrillation I48.2 [facility] [address] [id number] [address] [place] [address] Jan, Osteoarthritis M19.90 [facility] [address] [facility] [id number] [address] [place] [phone] Jan, Chronic atrial fibrillation I48.2 [facility] [address] [facility] [id number] [address] [place] [phone] Jan, Chronic atrial fibrillation I48.2 [facility] [address] [facility] [id number] [address] [place] [address] Jan, Chronic atrial fibrillation I48.2 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 [address] [id number] [address] [place] [address] December, [facility] [address] [id number] [address] [place] [phone] December, [facility] [address] [id number] [address] [place] [address] December, Osteoarthritis M19.90 [facility] [address] [id number] [address] [place] [address] Nov, [facility] [address] [id number] [address] [place] [address] Nov, Osteoarthritis M19.90 [facility] [address] [id number] [address] [place] [address] Oct, Osteoarthritis M19.90 [facility] [address] [id number] [address] [place] [phone] Sep, Osteoarthritis M19.90 [facility] [address] [id number] [address] [place] [address] Sep, retirement (current) use of a nticoagulants Z79.01 ; BMI 45.0-49.9, adult Z68.42 ; Diabetes E11.9 ; Chronic atrial fibrillation I48.2 and Chronic obstructive pulmonary disease, unspecified COPD type J44.9 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 [address] [id number] [address] [place] [address] Aug, Osteoarthritis M19.90 [facility] [address] [id number] [address] [place] [phone] Aug, [facility] [address] [id number] [address] [place] [address] Aug, retirement (current) use of a nticoagulants Z79.01 ; BMI 45.0-49.9, adult Z68.42 ; Diabetes E11.9 and Chronic atrial fibrillation I48.2 [facility] [address] [id number] [address] [place] [phone] Aug, [facility] [address] [id number] [address] [place] [address] Jul, Osteoarthritis M19.90 [facility] [address] [facility] [id number] [address] [place] [address] Jun, Osteoarthritis M19.90 [facility] [address] [id number] [address] [place] [phone] Jun, retirement (current) use of a nticoagulants Z79.01 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 [address] [id number] [address] [place] [address] Jun, Osteoarthritis M19.90 [facility] [address] [id number] [address] [place] [address] May, Encounter for immunization Z 23 [facility] [address] [facility] [id number] [address] [place] [address] May, retirement (current) use of a nticoagulants Z79.01 [facility] [address] [facility] [id number] [address] [place] [address] May, Osteoarthritis M19.90 [facility] [address] [facility] [id number] [address] [place] [phone] May, 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 [address] [id number] [address] [place] [phone] 20 Apr, 2018 Chronic atrial fibrillation I48.2 [facility] [address] [facility] [id number] [address] [place] [phone] 13 Apr, 2018 retirement (current) use of a nticoagulants Z79.01 [facility] [address] [facility] [id number] [address] [place] [phone] 07 Apr, 2018 Osteoarthritis M19.90 [facility] [address] [facility] [id number] [address] [place] [phone] 04 Apr, 2018 retirement (current) use of a nticoagulants Z79.01 and Chronic atrial fibrillation I48.2 [facility] [address] [facility] [id number] [address] [place] [phone] Mar, Osteoarthritis M19.90 [facility] [address] [facility] [id number] [address] [place] [address] Feb, Osteoarthritis M19.90 [facility] [address] [facility] [id number] [address] [place] [phone] Jan, Osteoarthritis M19.90 [facility] [address] [facility] [id number] [address] [place] [phone] December, [facility] [address] [facility] [id number] [address] [place] [phone] December, Osteoarthritis M19.90 [facility] [address] [facility] [id number] [address] [place] [phone] Nov, Diabetes E11.9 ; retirement ( current) use of anticoagulants Z79.01 ; Acquired hypothyroidism E03.9 ; Cigarette nicotine dependence without complication F17.210 ; Osteoarthritis M19.90 ; BMI 45.0-49.9, adult Z68.42 and Chronic atrial fibrillation I48.2 [facility] [id number] [place] [address] Nov, Osteoarthritis M19.90 [facility] [address] [place] [id number] [place] [address] Oct, Osteoarthritis M19.90 [place] [address] [address] Oct, retirement (current) use of a nticoagulants Z79.01 [facility] [address] [id number] [address] [place] [address] Sep, Osteoarthritis M19.90 [place] [address] [place] [id number] [address] [place] [address] Sep, [facility] [address] [id number] [address] [place] [address] Aug, Osteoarthritis M19.90 [place] [address] [place] [id number] [place] [address] Jul, Osteoarthritis M19.90 [place] [address] [place] [id number] [address] [place] [address] Jul, Osteoarthritis M19.90 [place] [facility] [address] [place] [id number] [place] [address] Jun, Diabetes E11.9 ; Encounter f or immunization Z23 ; retirement (current) use of anticoagulants Z79.01 ; Chronic atrial fibrillation I48.2 ; Osteoarthritis M19.90 ; Tobacco abuse Z72.0 and Bug bite, initial encounter W57.XXXA [place] [address] [place] [id number] [address] [place] [address] May, Osteoarthritis M19.90 [place] [address] [id number] [address] [place] [address] Apr, Osteoarthritis M19.90 [facility] [address] [id number] [address] [place] [phone] Mar, Chronic atrial fibrillation I48.2 [facility] [address] [id number] [address] [place] [phone] Mar, [facility] [address] [id number] [address] [place] [phone] Mar, Osteoarthritis M19.90 [facility] [address] [id number] [address] [place] [phone] Mar, retirement (current) use of a nticoagulants Z79.01 and Chronic atrial fibrillation I48.2 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 [address] [id number] [address] [place] [address] Mar, Osteoarthritis M19.90 [facility] [address] [id number] [address] [place] [phone] Feb, Encounter for screening mamm ogram for malignant neoplasm of breast Z12.31 [facility] [address] [id number] [address] [place] [address] Feb, Osteoarthritis M19.90 [facility] [address] [id number] [address] [place] [address] Jan, 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 [address] [id number] [address] [place] [phone] Jan, Osteoarthritis M19.90 [facility] [address] [id number] [address] [place] [address] Jan, Osteoarthritis M19.90 [facility] [address] [id number] [address] [place] [address] Jan, [facility] [address] [facility] [id number] [address] [place] [address] December, Osteoarthritis M19.90 [facility] [address] [id number] [address] [place] [address] December, Osteoarthritis M19.90 [facility] [id number] [place] [id number] Nov, [facility] [address] [facility] [id number] [address] [place] [address] Nov, [facility] [address] [facility] [id number] [address] [place] [address] Nov, [facility] [address] [facility] [id number] [address] [place] [address] Nov, Diabetes E11.9 [facility] [address] [id number] [address] [place] [address] Nov, [facility] [address] [facility] [id number] [address] [place] [address] Oct, Osteoarthritis M19.90 [facility] [address] [facility] [id number] [address] [place] [address] Oct, Osteoarthritis M19.90 ; retirement (current) use of anticoagulants Z79.01 ; Diabetes E11.9 ; Cigarette nicotine dependence without complication F17.210 and Chronic atrial fibrillation I48.2 [place] [address] [address] Aug, 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 [address] [place] [id number] [address] [place] [address] Aug, [facility] [address] [place] [id number] [place] [address] [id number] Aug, [place] [address] [address] Aug, [place] [address] [address] Aug, [facility] [address] [place] [id number] [place] [address] [id number] Aug, [facility] [address] [place] [id number] Aug Osteoarthritis M19.90 and Essential hypertension I10 [place] [address] [place] [id number] [place] [address] Aug, Other urinary incontinence N 39.498 [place] [address] [place] [id number] [address] [place] [address] Jul, Osteoarthritis M19.90 [place] [address] [place] [id number] [address] [place] [address] Jun, Diabetes E11.9 ; Encounter f or immunization Z23 ; Osteoarthritis M19.90 ; retirement (current) use of anticoagulants Z79.01 ; Cigarette nicotine dependence without complication F17.210 ; Acquired hypothyroidism E03.9 ; Morbid obesity, unspecified obesity type E66.01 and Irregular heart beats I49.9 [place] [address] [place] [id number] [place] [address] Jun, Osteoarthritis M19.90 [facility] [address] [facility] [id number] [address] [place] [address] May, Osteoarthritis M19.90 [facility] [address] [place] [id number] [address] [place] [phone] May, Urinary incontinence, unspec ified type R32 [facility] [address] [place] [id number] [address] [place] [address] May, [facility] [address] [address] Apr, Osteoarthritis M19.90 [facility] [address] [address] Apr, retirement (current) use of a nticoagulants Z79.01 [facility] [address] [address] Apr, [facility] [address] [address] Apr, Osteoarthritis M19.90 [facility] [address] [address] Mar, Diabetes E11.9 ; Hypothyroid ism, unspecified type E03.9 ; Osteoarthritis M19.90 ; High risk medication use Z79.899 ; Cigarette nicotine dependence without complication F17.210 and Morbid obesity, unspecified obesity type E66.01 [facility] [id number] [place] [address] Mar, Osteoarthritis M19.90 [facility] [address] [facility] [id number] [address] [place] [address] December, Osteoarthritis M19.90 [facility] [address] [place] [id number] [address] [place] [phone] December, [facility] [address] [place] [id number] [address] [place] [phone] Oct, [facility] [address] [facility] [id number] [address] [place] [phone] Oct, [facility] [address] [facility] [id number] [address] [place] [phone] Aug, [facility] [address] [facility] [id number] [address] [place] [phone] Jul, [facility] [address] [facility] [facility] [id number] [address] [place] [id number] Jul, [facility] [address] [facility] [id number] [address] [place] [phone] Jul, Diabetes E11.9 ; Encounter f or immunization Z23 ; Abnormal mammogram R92.8 ; Acquired hypothyroidism E03.9 ; High risk medication use Z79.899 ; Osteoarthritis M19.90 and Cigarette nicotine dependence without complication F17.210 [facility] [address] [facility] [id number] [address] [place] [id number] Jul, [facility] [address] [facility] [id number] [address] [place] [phone] Jun, Abnormal mammogram R92.8 [facility] [address] [place] [id number] [address] [place] [phone] Apr, [facility] [address] [facility] [facility] [id number] [address] [place] [id number] Apr, [facility] [address] [facility] [id number] [address] [place] [phone] Mar, [facility] [address] [facility] [id number] [address] [place] [phone] Mar, Current use of shelter ant 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 V58.61 [facility] [address] [facility] [facility] [id number] [address] [place] [id number] Feb, [facility] [address] [facility] [facility] [id number] [address] [place] [phone] Jan, [facility] [address] [facility] [id number] [address] [place] [phone] December, [facility] [address] [id number] [address] [place] [address], [place] [phone] Nov, [facility] [address] [id number] [address] [place] [address], [place] [phone] Nov, [facility] [address] [id number] [address] [place] [address], [place] [id number] Oct, [facility] [address] [id number] [address] [place] [address], [place] [id number] Oct, [facility] [address] [id number] [address] [place] [address], [place] [id number] Oct, [facility] [address] [id number] [address] [place] [address], [place] [phone] Oct, [facility] [address] [id number] [address] [place] [address], [place] [phone] Oct, [facility] [address] [id number] [address] [place] [address], [place] [phone] Oct, [facility] [address] [id number] [address] [place] [address], [place] [id number] Sep, [facility] [address] [id number] [address] [place] [address], [place] [phone] Sep, [facility] [address] [id number] [address] [place] [address], [place] [phone] Sep, [facility] [address] [id number] [address] [place] [address], [place] [address] Sep, [facility] [address] [id number] [address] [place] [address], [place] [id number] Aug, [facility] [facility] [address] [id number] [address] [place] [address], [place] [address] Aug, [facility] [address] [id number] [address] [place] [address] Aug, [facility] [address] [id number] [address] [place] [address], [place] [address] Aug, [facility] [address] [id number] [address] [place] [address], [place] [address] Aug, [facility] [address] [id number] [address] [place] [address], [place] [address] Aug, [facility] [address] [id number] [address] [place] [address], [place] [address] Jul, [facility] [address] [id number] [address] [place] [address], [place] [address] Jul, [facility] [address] [id number] [address] [place] [address], [place] [address] Jul, [facility] [address] [id number] [address] [place] [address], [place] [address] Jul, [facility] [address] [id number] [address] [place] [address], [place] [address] Jul, [facility] [address] [id number] [address] [place] [address], [place] [address] Jul, [facility] [address] [id number] [address] [place] [address], [place] [address] Jun, [facility] [address] [id number] [address] [place] [address], [place] [address] Jun, [facility] [address] [id number] [address] [place] [address], [place] [address] Jun, [facility] [address] [id number] [address] [place] [address], [place] [address] Jun, [facility] [address] [id number] [address] [place] [address], [place] [address] Jun, [facility] [address] [id number] [address] [place] [address], [place] [address] Jun, [facility] [address] [id number] [address] [address] Jun, [facility] [address] [id number] [address] [place] [address], [place] [address] Jun, [facility] [address] [id number] [address] [place] [address], [place] [address] Jun, [facility] [address] [id number] [address] [place] [address], [place] [address] May, [facility] [address] [id number] [address] [place] [address], [place] [address] May, [facility] [address] [id number] [address] [place] [address], [place] [address] Apr, [facility] [address] [id number] [address] [place] [address], [place] [address] Apr, [facility] [address] [id number] [address] [place] [address], [place] [address] Apr, [facility] [address] [id number] [address] [place] [address], [place] [address] Apr, [facility] [address] [id number] [address] [place] [address], [place] [address] Apr, [facility] [address] [id number] [address] [place] [address], [place] [address] Apr, [facility] [address] [id number] [address] [place] [address], [place] [address] Apr, [facility] [address] [id number] [address] [place] [address], [place] [address] Apr, [facility] [address] [id number] [address] [place] [address], [place] [address] Apr, [facility] [address] [id number] [address] [place] [address], [place] [address] Apr, [facility] [address] [id number] [address] [place] [address], [place] [address] Mar, [facility] [address] [id number] [address] [place] [address], [place] [address] Mar, [facility] [address] [id number] [address] [place] [address], [place] [address] Mar, [facility] [address] [id number] [address] [place] [address], [place] [address] Mar, [facility] [address] [id number] [address] [place] [address], [place] [address] Mar, [facility] [address] [id number] [address] [place] [address], [place] [address] Mar, [facility] [address] [id number] [address] [place] [address], [place] [address] Feb, [facility] [address] [id number] [address] [place] [address], [place] [address] Feb, [facility] [address] [id number] [address] [place] [address], [place] [address] Feb, [facility] [address] [id number] [address] [place] [address], [place] [address] Feb, [facility] [address] [id number] [address] [place] [address], [place] [address] Jan, [facility] [address] [id number] [address] [place] [address], [place] [address] Jan, [facility] [address] [id number] [address] [place] [address], [place] [address] Jan, [facility] [address] [id number] [address] [place] [address], [place] [address] Jan, [facility] [address] [id number] [address] [place] [address], [place] [address] Oct, [facility] [address] [id number] [address] [place] [address], [place] [address] Oct, [facility] [address] [id number] [address] [place] [address], [place] [address] Sep, [facility] [address] [id number] [address] [place] [address], [place] [address] Sep, [facility] [address] [id number] [address] [place] [address], [place] [address] Sep, [facility] [address] [id number] [address] [place] [address], [place] [address] Sep, [facility] [address] [id number] [address] [place] [address], [place] [address] Aug, [facility] [address] [id number] [address] [place] [address], [place] [address] Aug, [facility] [address] [id number] [address] [place] [address], [place] [address] Aug, [facility] [address] [id number] [address] [place] [address], [place] [address] Aug, [facility] [address] [id number] [address] [place] [address], [place] [address] Jul, [facility] [address] [id number] [address] [place] [address], [place] [address] Jul, [facility] [address] [id number] [address] [place] [address], [place] [address] Jul, [facility] [address] [id number] [address] [place] [address], [place] [address] Jul, [facility] [address] [id number] [address] [place] [address], [place] [address] Jul, [facility] [address] [id number] [address] [place] [address], [place] [address] Jul, [facility] [address] [id number] [address] [place] [address], [place] [address] Jun, [facility] [address] [id number] [address] [place] [address], [place] [address] Jun, [facility] [address] [id number] [address] [place] [address], [place] [address] Jun, [facility] [address] [id number] [address] [place] [address], [place] [address] Jun, [facility] [address] [id number] [address] [place] [address], [place] [address] Jun, [facility] [address] [id number] [address] [place] [address], [place] [address] Jun, [facility] [address] [id number] [address] [place] [address], [place] [address] May, [facility] [address] [id number] [address] [place] [address], [place] [address] May, [facility] [address] [id number] [address] [place] [address], [place] [address] May, [facility] [address] [id number] [address] [place] [address], [place] [address] May, [facility] [address] [id number] [address] [place] [address], [place] [address] May, [facility] [address] [id number] [address] [place] [address], [place] [address] May, [facility] [address] [id number] [address] [place] [address], [place] [address] May, [facility] [address] [id number] [address] [place] [address], [place] [address] May, [facility] [address] [id number] [address] [place] [address], [place] [address] Apr, [facility] [address] [id number] [address] [place] [address], [place] [address] Apr, [facility] [address] [id number] [address] [place] [address], [place] [address] Mar, [facility] [address] [id number] [address] [place] [address], [place] [address] Mar, [facility] [address] [id number] [address] [place] [address], [place] [address] Mar, [facility] [address] [id number] [address] [place] [address], [place] [address] Mar, [facility] [address] [id number] [address] [place] [address], [place] [address] Feb, [facility] [address] [id number] [address] [place] [address], [place] [address] Jan, [facility] [address] [id number] [address] [place] [address], [place] [address] December, [facility] [address] [id number] [address] [place] [address], [place] [address] December, [facility] [address] [id number] [address] [place] [address], [place] [address] December, [facility] [address] [id number] [address] [place] [address], [place] [address] Nov, [facility] [address] [id number] [address] [place] [address], [place] [address] Nov, [facility] [address] [id number] [address] [place] [address], [place] [address] Sep, [facility] [address] [id number] [address] [place] [address], [place] [address] Sep, [facility] [address] [id number] [address] [place] [address], [place] [address] Sep, [facility] [address] [id number] [address] [place] [address], [place] [address] Sep, [facility] [address] [id number] [address] [place] [address], [place] [address] Aug, [facility] [address] [id number] [address] [place] [address], [place] [address] Aug, [facility] [address] [id number] [address] [place] [address] 08 Aug, 2012 [facility] [address] [id number] [address] [place] [address], [place] [address] Aug, [facility] [address] [id number] [address] [place] [address], [place] [address] Jul, [facility] [address] [id number] [address] [place] [address], [place] [address] Jul, [facility] [address] [id number] [address] [place] [address], [place] [address] Jul, [facility] [address] [id number] [address] [place] [address], [place] [address] Jul, [facility] [address] [id number] [address] [place] [address], [place] [address] Jun, [facility] [address] [id number] [address] [place] [address], [place] [address] Jun, [facility] [address] [id number] [address] [place] [address], [place] [address] Jun, [facility] [address] [id number] [address] [place] [address], [place] [address] Jun, [facility] [address] [id number] [address] [place] [address], [place] [address] May, [facility] [address] [id number] [address] [place] [address], [place] [address] May, [facility] [address] [id number] [address] [place] [address] May, [facility] [address] [id number] [address] [place] [address], [place] [address] May, [facility] [address] [id number] [address] [place] [address], [place] [address] 08 May, 2012 [facility] [address] [id number] [address] [place] [address], [place] [address] Apr, [facility] [address] [id number] [address] [place] [address], [place] [address] 08 Apr, 2012 [facility] [address] [id number] [address] [place] [address], [place] [address] 07 Apr, 2012 [facility] [address] [id number] [address] [place] [address], [place] [address] 06 Apr, 2012 [facility] [address] [id number] [address] [place] [address], [place] [address] Mar, [facility] [address] [id number] [address] [place] [address], [place] [address] Mar, [facility] [address] [id number] [address] [place] [address], [place] [address] Feb, [facility] [address] [id number] [address] [place] [address], [place] [address] Feb, [facility] [address] [id number] [address] [place] [address], [place] [address] Feb, [facility] [address] [id number] [address] [place] [address], [place] [address] Jan, [facility] [address] [id number] [address] [place] [address], [place] [address] Jan, [facility] [address] [id number] [address] [place] [address], [place] [address] December, [facility] [address] [id number] [address] [place] [address], [place] [address] December, [facility] [address] [id number] [address] [place] [address], [place] [address] Nov, [facility] [address] [id number] [address] [place] [address], [place] [address] Oct, [facility] [address] [id number] [address] [place] [address], [place] [address] Oct, [facility] [address] [id number] [address] [place] [address], [place] [address] Sep, [facility] [address] [id number] [address] [place] [address], [place] [address] Sep, [facility] [address] [id number] [address] [place] [address], [place] [address] Aug, [facility] [address] [id number] [address] [place] [address], [place] [address] Aug, [facility] [address] [id number] [address] [place] [address], [place] [address] Jul, [facility] [address] [id number] [address] [place] [address], [place] [address] Jul, [facility] [address] [id number] [address] [place] [address], [place] [address] Jul, [facility] [address] [id number] [address] [place] [address], [place] [address] Jun, [facility] [address] [id number] [address] [place] [address], [place] [address] Jun, [facility] [address] [id number] [address] [place] [address], [place] [address] May, [facility] [address] [id number] [address] [place] [address], [place] [address] May, [facility] [address] [id number] [address] [place] [address] May, [facility] [address] [id number] [address] [place] [address] Jul, [facility] [address] [id number] [address] [place] [address], [place] [address] Jul, [facility] [address] [id number] [address] [place] [id number] 15 Jun, 2010 [facility] [address] [id number] [address] [place] [address], [place] [address] May, [facility] [address] [id number] [address] [place] [address] May, [facility] [address] [id number] [address] [place] [address] Aug, [facility] [address] [id number] [address] [place] [address] Jul, [facility] [address] [facility] [id number] [address] [place] [address] Jun, [facility] [address] [facility] [id number] [address] [place] [address] Jun, [facility] [address] [facility] [id number] [address] [place] [address] Jun, [facility] [address] [facility] [id number] [address] [place] [id number] Jun, [facility] [address] [facility] [id number] [address] [place] [id number] Jun, [facility] [address] [facility] [id number] [address] [place] [address] May, [facility] [address] [facility] [id number] [address] [place] [id number] Sep, IMMUNIZATIONS No Known Immunizations SOCIAL HISTORY [...]
--- OUTSIDE RECORDS SUMMARY | 2020-01-28 14:31 | XMS REPORT ---
Author Author Katarina RODRIGUEZ Organization [facility] Address [address] [place] [address] Care Team Providers Care Ios Developer Name Role Phone GEORGINA RODRIGUEZ Unavailable PROBLEMS Type Condition ICD9-CM Code HVL63-TH Code Onset Dates Condition S tatus SNOMED Code Problem Osteoarthritis M19.90 Active 83080 5006 Problem Chronic obstructive pulmonary disease, unspecified COPD ty pe J44.9 Active 35539891 Problem Acquired hypothyroidism E03.9 Active 495818356 Problem Cigarette nicotine dependence without complication F17.210 Active 63383832 Problem Diabetes E11.9 Active 365176449 Problem High risk medication use Z79.899 Activ e 882687363 Problem Urinary incontinence, unspecified type R32 Active 232772369 Problem [facility] (current) use of anticoagulants Z79.01 Active 042567036 Problem Morbid obesity, unspecified obesity type E66.01 Active 707511380 Problem Other chronic pain G89.29 Active 8 8803388 Problem History of cataract surgery Z98.49 Ac tive 659656068 Problem Type 2 diabetes mellitus wit h hyperglycemia, without long-term current use of insulin E11.65 Active 05498519 Problem Encounter for immunization Z23 Act essie 676183936 Problem Irregular heart beats I49.9 Active 917327231 Problem Other urinary incontinence N39.498 Act essie 923914119 Problem Essential hypertension I10 Active 29756427 Problem Chronic atrial fibrillation I48.2 Ac tive [id number] ALLERGIES No Information ENCOUNTERS Encounter Location Date Diagnosis [facility] [address] [facility] [id number] [address] [place] [phone] Apr, Osteoarthritis M19.90 [facility] [address] [facility] [id number] [address] [place] [phone] Mar, Chronic atrial fibrillation I48.2 [facility] [address] [facility] [id number] [address] [place] [phone] Mar, Chronic atrial fibrillation I48.2 [facility] [address] [id number] [address] [place] [address] Mar, Osteoarthritis M19.90 [facility] [address] [facility] [id number] [address] [place] [phone] Mar, Chronic atrial fibrillation I48.2 [facility] [address] [facility] [id number] [address] [place] [phone] Mar, Type 2 diabetes mellitus wit h hyperglycemia, without long-term current use of insulin E11.65 ; Chronic atrial fibrillation I48.2 and Morbid obesity E66.01 [facility] [address] [id number] [address] [place] [phone] Feb, Osteoarthritis M19.90 [facility] [address] [facility] [id number] [address] [place] [phone] Feb, Chronic atrial fibrillation I48.2 [facility] [address] [facility] [id number] [address] [place] [phone] Feb, Hyperglycemia R73.9 ; Diabet es E11.9 ; Morbid obesity E66.01 ; Acquired hypothyroidism E03.9 ; Osteoarthritis M19.90 and High risk medication use Z79.899 [facility] [address] [facility] [id number] [address] [place] [phone] Feb, Chronic atrial fibrillation I48.2 [facility] [address] [id number] [address] [place] [phone] Jan, Osteoarthritis M19.90 [facility] [address] [facility] [id number] [address] [place] [phone] Jan, Chronic atrial fibrillation I48.2 [facility] [address] [facility] [id number] [address] [place] [phone] Jan, Chronic atrial fibrillation I48.2 [facility] [address] [facility] [id number] [address] [place] [phone] Jan, Chronic atrial fibrillation I48.2 [facility] [address] [id number] [address] [place] [phone] Jan, 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 [facility] [address] [id number] [address] [place] [phone] December, [facility] [address] [id number] [address] [place] [phone] December, [facility] [address] [id number] [address] [place] [phone] December, Osteoarthritis M19.90 [facility] [address] [id number] [address] [place] [phone] Nov, [facility] [address] [id number] [address] [place] [phone] Nov, Osteoarthritis M19.90 [facility] [address] [id number] [address] [place] [address] Oct, Osteoarthritis M19.90 [facility] [address] [id number] [address] [place] [phone] Sep, Osteoarthritis M19.90 [facility] [address] [id number] [address] [place] [phone] Sep, [facility] (current) use of a nticoagulants Z79.01 ; BMI 45.0-49.9, adult Z68.42 ; Diabetes E11.9 ; Chronic atrial fibrillation I48.2 and Chronic obstructive pulmonary disease, unspecified COPD type J44.9 [facility] [address] [id number] [address] [place] [phone] Sep, Diabetes E11.9 ; 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 ; Chronic atrial fibrillation I48.2 ; Chronic obstructive pulmonary disease, unspecified COPD type J44.9 and BMI 45.0-49.9, adult Z68.42 [facility] [address] [id number] [address] [place] [address] Aug, Osteoarthritis M19.90 [facility] [address] [id number] [address] [place] [phone] Aug, [facility] [address] [id number] [address] [place] [phone] Aug, [facility] (current) use of a nticoagulants Z79.01 ; BMI 45.0-49.9, adult Z68.42 ; Diabetes E11.9 and Chronic atrial fibrillation I48.2 [facility] [address] [id number] [address] [place] [phone] Aug, [facility] [address] [id number] [address] [place] [address] Jul, Osteoarthritis M19.90 [facility] [address] [facility] [id number] [address] [place] [address] Jun, Osteoarthritis M19.90 [facility] [address] [id number] [address] [place] [phone] Jun, [facility] (current) use of a nticoagulants Z79.01 [facility] [address] [facility] [id number] [address] [place] [phone] Jun, Chronic atrial fibrillation I48.2 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 [facility] [address] [id number] [address] [place] [phone] Jun, Osteoarthritis M19.90 [facility] [address] [id number] [address] [place] [phone] May, Encounter for immunization Z 23 [facility] [address] [facility] [id number] [address] [place] [phone] May, [facility] (current) use of a nticoagulants Z79.01 [facility] [address] [facility] [id number] [address] [place] [phone] May, Osteoarthritis M19.90 [facility] [address] [facility] [id number] [address] [place] [phone] May, [facility] [address] [facility] [id number] [address] [place] [phone] May, Diabetes E11.9 ; 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 ; Chronic atrial fibrillation I48.2 ; BMI 45.0-49.9, adult Z68.42 ; Osteoarthritis M19.90 ; Low back pain M54.5 and Other chronic pain G89.29 [facility] [address] [id number] [address] [place] [phone] 20 Apr, 2018 Chronic atrial fibrillation I48.2 [facility] [address] [facility] [id number] [address] [place] [phone] 13 Apr, 2018 [facility] (current) use of a nticoagulants Z79.01 [facility] [address] [facility] [id number] [address] [place] [phone] 07 Apr, 2018 Osteoarthritis M19.90 [facility] [address] [facility] [id number] [address] [place] [phone] 04 Apr, 2018 [facility] (current) use of a nticoagulants Z79.01 and Chronic atrial fibrillation I48.2 [facility] [address] [facility] [id number] [address] [place] [phone] Mar, Osteoarthritis M19.90 [facility] [address] [facility] [id number] [address] [place] [phone] Feb, Osteoarthritis M19.90 [facility] [address] [facility] [id number] [address] [place] [phone] Jan, Osteoarthritis M19.90 [facility] [address] [facility] [id number] [address] [place] [phone] December, [facility] [address] [facility] [id number] [address] [place] [address] December, Osteoarthritis M19.90 [facility] [address] [facility] [id number] [address] [place] [phone] Nov, Diabetes E11.9 ; [facility] ( current) use of anticoagulants Z79.01 ; Acquired hypothyroidism E03.9 ; Cigarette nicotine dependence without complication F17.210 ; Osteoarthritis M19.90 ; BMI 45.0-49.9, adult Z68.42 and Chronic atrial fibrillation I48.2 [facility] [id number] [place] [phone] Nov, Osteoarthritis M19.90 [facility] [address] [place] [id number] [place] [address] Oct, Osteoarthritis M19.90 [place] [address] [address] Oct, [facility] (current) use of a nticoagulants Z79.01 [facility] [address] [place] [id number] [address] [place] [phone] Sep, Osteoarthritis M19.90 [place] [address] [place] [id number] [address] [place] [phone] Sep, [facility] [address] [place] [id number] [address] [place] [phone] Aug, Osteoarthritis M19.90 [place] [address] [place] [id number] [place] [address] Jul, Osteoarthritis M19.90 [place] [address] [place] [id number] [address] [place] [phone] Jul, Osteoarthritis M19.90 [place] [address] [place] [id number] [place] [address] Jun, Diabetes E11.9 ; Encounter f or immunization Z23 ; [facility] (current) use of anticoagulants Z79.01 ; Chronic atrial fibrillation I48.2 ; Osteoarthritis M19.90 ; Tobacco abuse Z72.0 and Bug bite, initial encounter W57.XXXA [place] [address] [place] [id number] [address] [place] [phone] May, Osteoarthritis M19.90 [place] [address] [id number] [address] [place] [phone] Apr, Osteoarthritis M19.90 [facility] [address] [id number] [address] [place] [phone] Mar, Chronic atrial fibrillation I48.2 [facility] [address] [id number] [address] [place] [phone] Mar, [facility] [address] [id number] [address] [place] [phone] Mar, Osteoarthritis M19.90 [facility] [address] [id number] [address] [place] [phone] Mar, [facility] (current) use of a nticoagulants Z79.01 and Chronic atrial fibrillation I48.2 [facility] [address] [id number] [address] [place] [phone] Mar, Chronic atrial fibrillation I48.2 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 [facility] [address] [id number] [address] [place] [phone] Mar, 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 [facility] [address] [id number] [address] [place] [phone] Mar, 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 [facility] [address] [id number] [address] [place] [phone] Mar, Osteoarthritis M19.90 [facility] [address] [id number] [address] [place] [phone] Feb, Encounter for screening mamm ogram for malignant neoplasm of breast Z12.31 [facility] [address] [id number] [address] [place] [phone] Feb, Osteoarthritis M19.90 [facility] [address] [id number] [address] [place] [phone] Jan, [facility] [address] [id number] [address] [place] [phone] Jan, 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 ; Diabetes E11.9 ; Osteoarthritis M19.90 and Breast cancer screening Z12.39 [facility] [address] [id number] [address] [place] [phone] Jan, Osteoarthritis M19.90 [facility] [address] [id number] [address] [place] [phone] Jan, Osteoarthritis M19.90 [facility] [address] [id number] [address] [place] [phone] Jan, [facility] [address] [facility] [id number] [address] [place] [address] December, Osteoarthritis M19.90 [facility] [address] [id number] [address] [place] [address] December, Osteoarthritis M19.90 [facility] [id number] [place] [id number] Nov, [facility] [address] [facility] [id number] [address] [place] [phone] Nov, [facility] [address] [facility] [id number] [address] [place] [phone] Nov, [facility] [address] [facility] [id number] [address] [place] [phone] Nov, Diabetes E11.9 [facility] [address] [id number] [address] [place] [phone] Nov, [facility] [address] [facility] [id number] [address] [place] [phone] Oct, Osteoarthritis M19.90 [facility] [address] [facility] [id number] [address] [place] [address] Oct, Osteoarthritis M19.90 ; [facility] (current) use of anticoagulants Z79.01 ; Diabetes E11.9 ; Cigarette nicotine dependence without complication F17.210 and Chronic atrial fibrillation I48.2 [place] [id number] [address] Aug, [facility] [address] [place] [id number] [place] [phone] Aug, 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 [facility] [address] [place] [id number] [address] [place] [phone] Aug, [facility] [address] [place] [id number] [place] [address] [id number] Aug, [place] [address] [phone] Aug, [place] [address] [phone] Aug, [facility] [address] [place] [id number] [place] [address] [id number] Aug, [facility] [address] [place] [id number] Aug Osteoarthritis M19.90 and Essential hypertension I10 [place] [address] [place] [id number] [address] [place] [address] Aug, Other urinary incontinence N 39.498 [place] [address] [place] [id number] [address] [place] [address] Jul, Osteoarthritis M19.90 [place] [address] [place] [id number] [address] [place] [address] Jun, Diabetes E11.9 ; Encounter f or immunization Z23 ; Osteoarthritis M19.90 ; [facility] (current) use of anticoagulants Z79.01 ; Cigarette nicotine dependence without complication F17.210 ; Acquired hypothyroidism E03.9 ; Morbid obesity, unspecified obesity type E66.01 and Irregular heart beats I49.9 [place] [address] [place] [id number] [address] [place] [phone] Jun, Osteoarthritis M19.90 [facility] [address] [facility] [id number] [address] [place] [phone] May, Osteoarthritis M19.90 [facility] [address] [place] [id number] [address] [place] [phone] May, Urinary incontinence, unspec ified type R32 [facility] [address] [place] [id number] [address] [place] [phone] May, [facility] [address] [phone] Apr, Osteoarthritis M19.90 [facility] [address] [address] Apr, [facility] (current) use of a nticoagulants Z79.01 [facility] [address] [address] Apr, [facility] [address] [address] Apr, Osteoarthritis M19.90 [facility] [address] [address] Mar, Diabetes E11.9 ; Hypothyroid ism, unspecified type E03.9 ; Osteoarthritis M19.90 ; High risk medication use Z79.899 ; Cigarette nicotine dependence without complication F17.210 and Morbid obesity, unspecified obesity type E66.01 [facility] [id number] [place] [phone] Mar, Osteoarthritis M19.90 [facility] [address] [facility] [id number] [address] [place] [phone] December, Osteoarthritis M19.90 [facility] [address] [place] [id number] [address] [place] [phone] December, [facility] [address] [place] [id number] [address] [place] [phone] Oct, [facility] [address] [facility] [id number] [address] [place] [phone] Oct, [facility] [address] [facility] [id number] [address] [place] [phone] Aug, [facility] [address] [facility] [id number] [address] [place] [phone] Jul, [facility] [address] [facility] [id number] [address] [place] [phone] Jul, [facility] [address] [facility] [id number] [address] [place] [phone] Jul, Diabetes E11.9 ; Encounter f or immunization Z23 ; Abnormal mammogram R92.8 ; Acquired hypothyroidism E03.9 ; High risk medication use Z79.899 ; Osteoarthritis M19.90 and Cigarette nicotine dependence without complication F17.210 [facility] [address] [facility] [id number] [address] [place] [phone] Jul, [facility] [address] [facility] [id number] [address] [place] [phone] Jun, Abnormal mammogram R92.8 [facility] [address] [place] [id number] [address] [place] [phone] Apr, [facility] [address] [facility] [id number] [address] [place] [phone] Apr, [facility] [address] [facility] [id number] [address] [place] [phone] Mar, [facility] [address] [facility] [id number] [address] [place] [phone] Mar, Current use of senior care ant 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 V58.61 [facility] [address] [facility] [id number] [address] [place] [phone] Feb, [facility] [address] [facility] [id number] [address] [place] [id number] Jan, [facility] [address] [facility] [id number] [address] [place] [id number] December, [facility] [address] [id number] [address] [place] [address], [place] [id number] Nov, [facility] [address] [id number] [address] [place] [address], [place] [id number] Nov, [facility] [address] [id number] [address] [place] [address], [place] [id number] Oct, [facility] [address] [id number] [address] [place] [address], [place] [id number] Oct, [facility] [address] [id number] [address] [place] [address], [place] [id number] Oct, [facility] [address] [id number] [address] [place] [address], [place] [id number] Oct, [facility] [address] [id number] [address] [place] [address], [place] [address] Oct, [facility] [address] [id number] [address] [place] [address], [place] [address] Oct, [facility] [address] [id number] [address] [place] [address], [place] [address] Sep, [facility] [address] [id number] [address] [place] [address], [place] [address] Sep, [facility] [address] [id number] [address] [place] [address], [place] [address] Sep, [facility] [address] [id number] [address] [place] [address], [place] [address] Sep, [facility] [address] [id number] [address] [place] [address], [place] [address] Aug, [facility] [address] [id number] [address] [place] [address], [place] [address] Aug, [facility] [address] [id number] [address] [place] [address] Aug, [facility] [address] [id number] [address] [place] [address], [place] [address] Aug, [facility] [address] [id number] [address] [place] [address], [place] [address] Aug, [facility] [address] [id number] [address] [place] [address], [place] [address] Aug, [facility] [address] [id number] [address] [place] [address], [place] [address] Jul, [facility] [address] [id number] [address] [place] [address], [place] [address] Jul, [facility] [address] [id number] [address] [place] [address], [place] [address] Jul, [facility] [address] [id number] [address] [place] [address], [place] [address] Jul, [facility] [address] [id number] [address] [place] [address], [place] [address] Jul, [facility] [address] [id number] [address] [place] [address], [place] [address] Jul, [facility] [address] [id number] [address] [place] [address], [place] [address] Jun, [facility] [address] [id number] [address] [place] [address], [place] [address] Jun, [facility] [address] [id number] [address] [place] [address], [place] [address] Jun, [facility] [address] [id number] [address] [place] [address], [place] [address] Jun, [facility] [address] [id number] [address] [place] [address], [place] [address] Jun, [facility] [address] [id number] [address] [place] [address], [place] [address] Jun, [facility] [address] [id number] [place] [address] Jun, [facility] [address] [id number] [address] [place] [address], [place] [address] Jun, [facility] [address] [id number] [address] [place] [address], [place] [address] Jun, [facility] [address] [id number] [address] [place] [address], [place] [address] May, [facility] [address] [id number] [address] [place] [address], [place] [address] May, [facility] [address] [id number] [address] [place] [address], [place] [address] Apr, [facility] [address] [id number] [address] [place] [address], [place] [address] Apr, [facility] [address] [id number] [address] [place] [address], [place] [address] Apr, [facility] [address] [id number] [address] [place] [address], [place] [address] Apr, [facility] [address] [id number] [address] [place] [address], [place] [address] Apr, [facility] [address] [id number] [address] [place] [address], [place] [address] Apr, [facility] [address] [id number] [address] [place] [address], [place] [address] Apr, [facility] [address] [id number] [address] [place] [address], [place] [address] Apr, [facility] [address] [id number] [address] [place] [address], [place] [address] Apr, [facility] [address] [id number] [address] [place] [address], [place] [address] Apr, [facility] [address] [id number] [address] [place] [address], [place] [address] Mar, [facility] [address] [id number] [address] [place] [address], [place] [address] Mar, [facility] [address] [id number] [address] [place] [address], [place] [address] Mar, [facility] [address] [id number] [address] [place] [address], [place] [address] Mar, [facility] [address] [id number] [address] [place] [address], [place] [address] Mar, [facility] [address] [id number] [address] [place] [address], [place] [address] Mar, [facility] [address] [id number] [address] [place] [address], [place] [address] Feb, [facility] [address] [id number] [address] [place] [address], [place] [address] Feb, [facility] [address] [id number] [address] [place] [address], [place] [address] Feb, [facility] [address] [id number] [address] [place] [address], [place] [address] Feb, [facility] [address] [id number] [address] [place] [address], [place] [address] Jan, [facility] [address] [id number] [address] [place] [address], [place] [address] Jan, [facility] [address] [id number] [address] [place] [address], [place] [address] Jan, [facility] [address] [id number] [address] [place] [address], [place] [address] Jan, [facility] [address] [id number] [address] [place] [address], [place] [address] Oct, [facility] [address] [id number] [address] [place] [address], [place] [address] Oct, [facility] [address] [id number] [address] [place] [address], [place] [address] Sep, [facility] [address] [id number] [address] [place] [address], [place] [address] Sep, [facility] [address] [id number] [address] [place] [address], [place] [address] Sep, [facility] [address] [id number] [address] [place] [address], [place] [address] Sep, [facility] [address] [id number] [address] [place] [address], [place] [address] Aug, [facility] [address] [id number] [address] [place] [address], [place] [address] Aug, [facility] [address] [id number] [address] [place] [address], [place] [address] Aug, [facility] [address] [id number] [address] [place] [address], [place] [address] Aug, [facility] [address] [id number] [address] [place] [address], [place] [address] Jul, [facility] [address] [id number] [address] [place] [address], [place] [address] Jul, [facility] [address] [id number] [address] [place] [address], [place] [address] Jul, [facility] [address] [id number] [address] [place] [address], [place] [address] Jul, [facility] [address] [id number] [address] [place] [address], [place] [address] Jul, [facility] [address] [id number] [address] [place] [address], [place] [address] Jul, [facility] [address] [id number] [address] [place] [address], [place] [address] Jun, [facility] [address] [id number] [address] [place] [address], [place] [address] Jun, [facility] [address] [id number] [address] [place] [address], [place] [address] Jun, [facility] [address] [id number] [address] [place] [address], [place] [address] Jun, [facility] [address] [id number] [address] [place] [address], [place] [address] Jun, [facility] [address] [id number] [address] [place] [address], [place] [address] Jun, [facility] [address] [id number] [address] [place] [address], [place] [address] May, [facility] [address] [id number] [address] [place] [address], [place] [address] May, [facility] [address] [id number] [address] [place] [address], [place] [address] May, [facility] [address] [id number] [address] [place] [address], [place] [address] May, [facility] [address] [id number] [address] [place] [address], [place] [address] May, [facility] [address] [id number] [address] [place] [address], [place] [address] May, [facility] [address] [id number] [address] [place] [address], [place] [address] May, [facility] [address] [id number] [address] [place] [address], [place] [address] May, [facility] [address] [id number] [address] [place] [address], [place] [address] Apr, [facility] [address] [id number] [address] [place] [address], [place] [address] Apr, [facility] [address] [id number] [address] [place] [address], [place] [address] Mar, [facility] [address] [id number] [address] [place] [address], [place] [address] Mar, [facility] [address] [id number] [address] [place] [address], [place] [address] Mar, [facility] [address] [id number] [address] [place] [address], [place] [address] Mar, [facility] [address] [id number] [address] [place] [address], [place] [address] Feb, [facility] [address] [id number] [address] [place] [address], [place] [address] Jan, [facility] [address] [id number] [address] [place] [address], [place] [address] December, [facility] [address] [id number] [address] [place] [address], [place] [address] December, [facility] [address] [id number] [address] [place] [address], [place] [address] December, [facility] [address] [id number] [address] [place] [address], [place] [address] Nov, [facility] [address] [id number] [address] [place] [address], [place] [address] Nov, [facility] [address] [id number] [address] [place] [address], [place] [address] Sep, [facility] [address] [id number] [address] [place] [address], [place] [address] Sep, [facility] [address] [id number] [address] [place] [address], [place] [address] Sep, [facility] [address] [id number] [address] [place] [address], [place] [address] Sep, [facility] [address] [id number] [address] [place] [address], [place] [address] Aug, [facility] [address] [id number] [address] [place] [address], [place] [address] Aug, [facility] [address] [id number] [address] [place] [address] 08 Aug, 2012 [facility] [address] [id number] [address] [place] [address], [place] [address] Aug, [facility] [address] [id number] [address] [place] [address], [place] [address] Jul, [facility] [address] [id number] [address] [place] [address], [place] [address] Jul, [facility] [address] [id number] [address] [place] [address], [place] [address] Jul, [facility] [address] [id number] [address] [place] [address], [place] [address] Jul, [facility] [address] [id number] [address] [place] [address], [place] [address] Jun, [facility] [address] [id number] [address] [place] [address], [place] [address] Jun, [facility] [address] [id number] [address] [place] [address], [place] [address] Jun, [facility] [address] [id number] [address] [place] [address], [place] [address] Jun, [facility] [address] [id number] [address] [place] [address], [place] [address] May, [facility] [address] [id number] [address] [place] [address], [place] [address] May, [facility] [address] [id number] [address] [place] [address] May, [facility] [address] [id number] [address] [place] [address], [place] [address] May, [facility] [address] [id number] [address] [place] [address], [place] [address] 08 May, 2012 [facility] [address] [id number] [address] [place] [address], [place] [address] Apr, [facility] [address] [id number] [address] [place] [address], [place] [address] 08 Apr, 2012 [facility] [address] [id number] [address] [place] [address], [place] [address] 07 Apr, 2012 [facility] [address] [id number] [address] [place] [address], [place] [address] 06 Apr, 2012 [facility] [address] [id number] [address] [place] [address], [place] [address] Mar, [facility] [address] [id number] [address] [place] [address], [place] [address] Mar, [facility] [address] [id number] [address] [place] [address], [place] [address] Feb, [facility] [address] [id number] [address] [place] [address], [place] [address] Feb, [facility] [address] [id number] [address] [place] [address], [place] [address] Feb, [facility] [address] [id number] [address] [place] [address], [place] [address] Jan, [facility] [address] [id number] [address] [place] [address], [place] [address] Jan, [facility] [address] [id number] [address] [place] [address], [place] [address] December, [facility] [address] [id number] [address] [place] [address], [place] [address] December, [facility] [address] [id number] [address] [place] [address], [place] [address] Nov, [facility] [address] [id number] [address] [place] [address], [place] [address] Oct, [facility] [address] [id number] [address] [place] [address], [place] [address] Oct, [facility] [address] [id number] [address] [place] [address], [place] [address] Sep, [facility] [address] [id number] [address] [place] [address], [place] [address] Sep, [facility] [address] [id number] [address] [place] [address], [place] [address] Aug, [facility] [address] [id number] [address] [place] [address], [place] [address] Aug, [facility] [address] [id number] [address] [place] [address], [place] [address] Jul, [facility] [address] [id number] [address] [place] [address], [place] [address] Jul, [facility] [address] [id number] [address] [place] [address], [place] [address] Jul, [facility] [address] [id number] [address] [place] [address], [place] [address] Jun, [facility] [address] [id number] [address] [place] [address], [place] [address] Jun, [facility] [address] [id number] [address] [place] [address], [place] [address] May, [facility] [address] [id number] [address] [place] [address], [place] [address] May, [facility] [address] [id number] [address] [place] [address] May, [facility] [address] [id number] [address] [place] [address] Jul, [facility] [address] [id number] [address] [place] [address], [place] [address] Jul, [facility] [address] [id number] [address] [place] [address] 15 Jun, 2010 [facility] [address] [id number] [address] [place] [address], [place] [address] May, [facility] [address] [id number] [address] [place] [address] May, [facility] [address] [id number] [address] [place] [address] Aug, [facility] [address] [id number] [address] [place] [address] Jul, [facility] [address] [facility] [id number] [address] [place] [address] Jun, [facility] [address] [facility] [id number] [address] [place] [address] Jun, [facility] [address] [facility] [id number] [address] [place] [address] Jun, [facility] [address] [facility] [id number] [address] [place] [address] Jun, [facility] [address] [facility] [id number] [address] [place] [address] Jun, [facility] [address] [facility] [id number] [address] [place] [address] May, [facility] [address] [facility] [id number] [address] [place] [address] Sep, IMMUNIZATIONS No Known Immunizations SOCIAL HISTORY [...]
--- OUTSIDE RECORDS SUMMARY | 2020-01-28 14:31 | XMS REPORT ---
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 Name Role Phone GEORGINA RODRIGUEZ Unavailable PROBLEMS Type Condition ICD9-CM Code XAT70-LX Code Onset Dates Condition S tatus SNOMED Code Problem Osteoarthritis M19.90 Active 74628 5006 Problem Chronic obstructive pulmonary disease, unspecified COPD ty pe J44.9 Active 22157421 Problem Acquired hypothyroidism E03.9 Active 971219281 Problem Cigarette nicotine dependence without complication F17.210 Active 13624995 Problem Diabetes E11.9 Active 519340638 Problem High risk medication use Z79.899 Activ e 031345218 Problem Urinary incontinence, unspecified type R32 Active 164851636 Problem shelter (current) use of anticoagulants Z79.01 Active 873948209 Problem Morbid obesity, unspecified obesity type E66.01 Active 388778910 Problem Other chronic pain G89.29 Active 8 3125098 Problem History of cataract surgery Z98.49 Ac tive 493242128 Problem Type 2 diabetes mellitus wit h hyperglycemia, without long-term current use of insulin E11.65 Active 55240896 Problem Encounter for immunization Z23 Act essie 920351345 Problem Irregular heart beats I49.9 Active 744335982 Problem Other urinary incontinence N39.498 Act essie 374187066 Problem Essential hypertension I10 Active 61043621 Problem Chronic atrial fibrillation I48.2 Ac tive [id number] ALLERGIES No Information ENCOUNTERS Encounter Location Date Diagnosis [facility] [address] [facility] [id number] [address] [place] [address] Apr, Osteoarthritis M19.90 [facility] [address] [facility] [id number] [address] [place] [address] Mar, Chronic atrial fibrillation I48.2 [facility] [address] [facility] [id number] [address] [place] [address] Mar, Chronic atrial fibrillation I48.2 [facility] [address] [id number] [address] [place] [address] Mar, Osteoarthritis M19.90 [facility] [address] [facility] [id number] [address] [place] [address] Mar, Chronic atrial fibrillation I48.2 [facility] [address] [facility] [id number] [address] [place] [address] Mar, Type 2 diabetes mellitus wit h hyperglycemia, without long-term current use of insulin E11.65 ; Chronic atrial fibrillation I48.2 and Morbid obesity E66.01 [facility] [address] [id number] [address] [place] [address] Feb, Osteoarthritis M19.90 [facility] [address] [facility] [id number] [address] [place] [address] Feb, Chronic atrial fibrillation I48.2 [facility] [address] [facility] [id number] [address] [place] [address] Feb, Hyperglycemia R73.9 ; Diabet es E11.9 ; Morbid obesity E66.01 ; Acquired hypothyroidism E03.9 ; Osteoarthritis M19.90 and High risk medication use Z79.899 [facility] [address] [facility] [id number] [address] [place] [address] Feb, Chronic atrial fibrillation I48.2 [facility] [address] [id number] [address] [place] [address] Jan, Osteoarthritis M19.90 [facility] [address] [facility] [id number] [address] [place] [address] Jan, Chronic atrial fibrillation I48.2 [facility] [address] [facility] [id number] [address] [place] [address] Jan, Chronic atrial fibrillation I48.2 [facility] [address] 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 [facility] [address] [id number] [address] [place] [address] December, [facility] [address] [id number] [address] [place] [address] December, [facility] [address] [id number] [address] [place] [address] December, Osteoarthritis M19.90 [facility] [address] [id number] [address] [place] [address] Nov, [facility] [address] [id number] [address] [place] [address] Nov, Osteoarthritis M19.90 [facility] [address] [id number] [address] [place] [address] Oct, Osteoarthritis M19.90 [facility] [address] [id number] [address] [place] [address] Sep, Osteoarthritis M19.90 [facility] [address] [id number] [address] [place] [address] Sep, shelter (current) use of a nticoagulants Z79.01 ; BMI 45.0-49.9, adult Z68.42 ; Diabetes E11.9 ; Chronic atrial fibrillation I48.2 and Chronic obstructive pulmonary disease, unspecified COPD type J44.9 [facility] [address] [id number] [address] [place] [address] Sep, Diabetes E11.9 ; 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 ; Chronic atrial fibrillation I48.2 ; Chronic obstructive pulmonary disease, unspecified COPD type J44.9 and BMI 45.0-49.9, adult Z68.42 [facility] [address] [id number] [address] [place] [address] Aug, Osteoarthritis M19.90 [facility] [address] [id number] [address] [place] [address] Aug, [facility] [address] [id number] [address] [place] [address] Aug, shelter (current) use of a nticoagulants Z79.01 ; BMI 45.0-49.9, adult Z68.42 ; Diabetes E11.9 and Chronic atrial fibrillation I48.2 [facility] [address] [id number] [address] [place] [address] Aug, [facility] [address] [id number] [address] [place] [address] Jul, Osteoarthritis M19.90 [facility] [address] [facility] [id number] [address] [place] [address] Jun, Osteoarthritis M19.90 [facility] [address] [id number] [address] [place] [address] Jun, shelter (current) use of a nticoagulants Z79.01 [facility] [address] 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 [id number] [address] [place] [address] May, shelter (current) use of a nticoagulants Z79.01 [facility] [address] [facility] [id number] [address] [place] [address] May, Osteoarthritis M19.90 [facility] [address] [facility] [id number] [address] [place] [address] May, [facility] [address] 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 [id number] [address] [place] [address] 13 Apr, 2018 shelter (current) use of a nticoagulants Z79.01 [facility] [address] [facility] [id number] [address] [place] [address] 07 Apr, 2018 Osteoarthritis M19.90 [facility] [address] [facility] [id number] [address] [place] [address] 04 Apr, 2018 shelter (current) use of a nticoagulants Z79.01 and Chronic atrial fibrillation I48.2 [facility] [address] [facility] [id number] [address] [place] [address] Mar, Osteoarthritis M19.90 [facility] [address] [facility] [id number] [address] [place] [address] Feb, Osteoarthritis M19.90 [facility] [address] [facility] [id number] [address] [place] [address] Jan, Osteoarthritis M19.90 [facility] [address] [facility] [id number] [address] [place] [address] December, [facility] [address] [facility] [id number] [address] [place] [address] December, Osteoarthritis M19.90 [facility] [address] [facility] [id number] [address] [place] [address] Nov, Diabetes E11.9 ; shelter ( current) use of anticoagulants Z79.01 ; Acquired hypothyroidism E03.9 ; Cigarette nicotine dependence without complication F17.210 ; Osteoarthritis M19.90 ; BMI 45.0-49.9, adult Z68.42 and Chronic atrial fibrillation I48.2 [facility] [id number] [place] [address] Nov, Osteoarthritis M19.90 [facility] [address] [place] [id number] [place] [address] Oct, Osteoarthritis M19.90 [place] [address] [address] Oct, shelter (current) use of a nticoagulants Z79.01 [facility] [address] [place] [id number] [address] [place] [address] Sep, Osteoarthritis M19.90 [place] [address] [place] [id number] [address] [place] [address] Sep, [facility] [address] [place] [id number] [address] [place] [address] Aug, Osteoarthritis M19.90 [place] [address] [place] [id number] [place] [address] Jul, Osteoarthritis M19.90 [place] [address] [place] [id number] [address] [place] [address] Jul, Osteoarthritis M19.90 [place] [address] [place] [id number] [place] [address] Jun, Diabetes E11.9 ; Encounter f or immunization Z23 ; shelter (current) use of anticoagulants Z79.01 ; Chronic atrial fibrillation I48.2 ; Osteoarthritis M19.90 ; Tobacco abuse Z72.0 and Bug bite, initial encounter W57.XXXA [place] [address] [place] [id number] [address] [place] [address] May, Osteoarthritis M19.90 [place] [address] [id number] [address] [place] [address] Apr, Osteoarthritis M19.90 [facility] [address] [id number] [address] [place] [address] Mar, Chronic atrial fibrillation I48.2 [facility] [address] [id number] [address] [place] [address] Mar, [facility] [address] [id number] [address] [place] [address] Mar, Osteoarthritis M19.90 [facility] [address] [id number] [address] [place] [address] Mar, shelter (current) use of a nticoagulants Z79.01 and Chronic atrial fibrillation I48.2 [facility] [address] [id number] [address] [place] [address] Mar, Chronic atrial fibrillation I48.2 and 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 [facility] [address] [id number] [address] [place] [address] Mar, 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 [facility] [address] [id number] [address] [place] [address] Mar, 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 [facility] [address] [id number] [address] [place] [address] Mar, Osteoarthritis M19.90 [facility] [address] [id number] [address] [place] [address] Feb, Encounter for screening mamm ogram for malignant neoplasm of breast Z12.31 [facility] [address] [id number] [address] [place] [address] Feb, Osteoarthritis M19.90 [facility] [address] [id number] [address] [place] [address] Jan, [facility] [address] [id number] [address] [place] [address] Jan, 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 [id number] [address] [place] [address] December, Osteoarthritis M19.90 [facility] [address] [id number] [address] [place] [address] December, Osteoarthritis M19.90 [facility] [id number] [place] [id number] Nov, [facility] [address] [facility] [id number] [address] [place] [address] Nov, [facility] [address] [facility] [id number] [address] [place] [address] Nov, [facility] [address] [facility] [id number] [address] [place] [address] Nov, Diabetes E11.9 [facility] [address] [id number] [address] [place] [address] Nov, [facility] [address] [facility] [id number] [address] [place] [address] Oct, Osteoarthritis M19.90 [facility] [address] 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 [facility] [address] [place] [id number] [address] [place] [address] Aug, [facility] [address] [place] [id number] [place] [address] [id number] Aug, [place] [address] [phone] Aug, [place] [address] [address] Aug, [facility] [address] [place] [id number] [place] [address] [id number] Aug, [employer] [facility] [address] [place] [id number] Aug Osteoarthritis M19.90 and Essential hypertension I10 [place] [address] [place] [id number] [place] [address] Aug, Other urinary incontinence N 39.498 [place] [address] [place] [id number] [address] [place] [address] Jul, Osteoarthritis M19.90 [place] [address] [place] [id number] [address] [place] [address] Jun, Diabetes E11.9 ; Encounter f or immunization Z23 ; Osteoarthritis M19.90 ; shelter (current) use of anticoagulants Z79.01 ; Cigarette nicotine dependence without complication F17.210 ; Acquired hypothyroidism E03.9 ; Morbid obesity, unspecified obesity type E66.01 and Irregular heart beats I49.9 [place] [address] [place] [id number] [address] [place] [address] Jun, Osteoarthritis M19.90 [facility] [address] [facility] [id number] [address] [place] [address] May, Osteoarthritis M19.90 [facility] [address] [place] [id number] [address] [place] [address] May, Urinary incontinence, unspec ified type R32 [facility] [address] [place] [id number] [address] [place] [address] May, [facility] [address] [address] Apr, Osteoarthritis M19.90 [facility] [address] [address] Apr, shelter (current) use of a nticoagulants Z79.01 [facility] [address] [address] Apr, [facility] [address] [address] Apr, Osteoarthritis M19.90 [facility] [address] [address] Mar, Diabetes E11.9 ; Hypothyroid ism, unspecified type E03.9 ; Osteoarthritis M19.90 ; High risk medication use Z79.899 ; Cigarette nicotine dependence without complication F17.210 and Morbid obesity, unspecified obesity type E66.01 [facility] [address] [place] [address] Mar, Osteoarthritis M19.90 [facility] [address] [facility] [id number] [address] [place] [address] December, Osteoarthritis M19.90 [facility] [address] [place] [id number] [address] [place] [address] December, [facility] [address] [place] [id number] [address] [place] [address] Oct, [facility] [address] [facility] [id number] [address] [place] [address] Oct, [facility] [address] [facility] [id number] [address] [place] [address] Aug, [facility] [address] [facility] [id number] [address] [place] [address] Jul, [facility] [address] [facility] [id number] [address] [place] [id number] Jul, [facility] [address] [facility] [id number] [address] [place] [address] Jul, Diabetes E11.9 ; Encounter f or immunization Z23 ; Abnormal mammogram R92.8 ; Acquired hypothyroidism E03.9 ; High risk medication use Z79.899 ; Osteoarthritis M19.90 and Cigarette nicotine dependence without complication F17.210 [facility] [address] [facility] [id number] [address] [place] [address] Jul, [facility] [address] [facility] [id number] [address] [place] [address] Jun, Abnormal mammogram R92.8 [facility] [address] [place] [id number] [address] [place] [address] Apr, [facility] [address] [facility] [id number] [address] [place] [phone] Apr, [facility] [address] [facility] [id number] [address] [place] [address] Mar, [facility] [address] [facility] [id number] [address] [place] [address] Mar, Current use of jail ant 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 V58.61 [facility] [address] [facility] [id number] [address] [place] [address] Feb, [facility] [address] [facility] [id number] [address] [place] [address] Jan, [facility] [address] [facility] [id number] [address] [place] [address] December, [facility] [address] [id number] [address] [place] [address], [place] [address] Nov, [facility] [address] [id number] [address] [place] [address], [place] [address] Nov, [facility] [address] [id number] [address] [place] [address], [place] [address] Oct, [facility] [address] [id number] [address] [place] [address], [place] [address] Oct, [facility] [address] [id number] [address] [place] [address], [place] [address] Oct, [facility] [address] [id number] [address] [place] [address], [place] [address] Oct, [facility] [address] [id number] [address] [place] [address], [place] [address] Oct, [facility] [address] [id number] [address] [place] [address], [place] [address] Oct, [facility] [address] [id number] [address] [place] [address], [place] [address] Sep, [facility] [address] [id number] [address] [place] [address], [place] [address] Sep, [facility] [address] [id number] [address] [place] [address], [place] [address] Sep, [facility] [address] [id number] [address] [place] [address], [place] [address] Sep, [facility] [address] [id number] [address] [place] [address], [place] [address] Aug, [facility] [address] [id number] [address] [place] [address], [place] [address] Aug, [facility] [address] [id number] [address] [place] [id number] Aug, [facility] [address] [id number] [address] [place] [address], [place] [address] Aug, [facility] [address] [id number] [address] [place] [address], [place] [address] Aug, [facility] [address] [id number] [address] [place] [address], [place] [address] Aug, [facility] [address] [id number] [address] [place] [address], [place] [address] Jul, [facility] [address] [id number] [address] [place] [address], [place] [address] Jul, [facility] [address] [id number] [address] [place] [address], [place] [address] Jul, [facility] [address] [id number] [address] [place] [address], [place] [address] Jul, [facility] [address] [id number] [address] [place] [address], [place] [address] Jul, [facility] [address] [id number] [address] [place] [address], [place] [address] Jul, [facility] [address] [id number] [address] [place] [address], [place] [address] Jun, [facility] [address] [id number] [address] [place] [address], [place] [address] Jun, [facility] [address] [id number] [address] [place] [address], [place] [address] Jun, [facility] [address] [address] [id number] [address] [place] [address], [place] [address] Jun, [facility] [address] [id number] [address] [place] [address], [place] [address] Jun, [facility] [address] [id number] [address] [place] [address], [place] [address] Jun, [facility] [address] [id number] [address] [address] Jun, [facility] [address] [id number] [address] [place] [address], [place] [address] Jun, [facility] [address] [id number] [address] [place] [address], [place] [address] Jun, [facility] [address] [id number] [address] [place] [address], [place] [address] May, [facility] [address] [id number] [address] [place] [address], [place] [address] May, [facility] [address] [id number] [address] [place] [address], [place] [address] Apr, [facility] [address] [id number] [address] [place] [address], [place] [address] Apr, [facility] [address] [id number] [address] [place] [address], [place] [address] Apr, [facility] [address] [id number] [address] [place] [address], [place] [address] Apr, [facility] [address] [id number] [address] [place] [address], [place] [address] Apr, [facility] [address] [id number] [address] [place] [address], [place] [address] Apr, [facility] [address] [id number] [address] [place] [address], [place] [address] Apr, [facility] [address] [id number] [address] [place] [address], [place] [address] Apr, [facility] [address] [id number] [address] [place] [address], [place] [address] Apr, [facility] [address] [id number] [address] [place] [address], [place] [address] Apr, [facility] [address] [id number] [address] [place] [address], [place] [address] Mar, [facility] [address] [id number] [address] [place] [address], [place] [address] Mar, [facility] [address] [id number] [address] [place] [address], [place] [address] Mar, [facility] [address] [id number] [address] [place] [address], [place] [address] Mar, [facility] [address] [id number] [address] [place] [address], [place] [address] Mar, [facility] [address] [id number] [address] [place] [address], [place] [address] Mar, [facility] [address] [id number] [address] [place] [address], [place] [address] Feb, [facility] [address] [id number] [address] [place] [address], [place] [address] Feb, [facility] [address] [id number] [address] [place] [address], [place] [address] Feb, [facility] [address] [id number] [address] [place] [address], [place] [address] Feb, [facility] [address] [id number] [address] [place] [address], [place] [address] Jan, [facility] [address] [id number] [address] [place] [address], [place] [address] Jan, [facility] [address] [id number] [address] [place] [address], [place] [address] Jan, [facility] [address] [id number] [address] [place] [address], [place] [address] Jan, [facility] [address] [id number] [address] [place] [address], [place] [address] Oct, [facility] [address] [id number] [address] [place] [address], [place] [address] Oct, [facility] [address] [id number] [address] [place] [address], [place] [address] Sep, [facility] [address] [id number] [address] [place] [address], [place] [address] Sep, [facility] [address] [id number] [address] [place] [address], [place] [address] Sep, [facility] [address] [id number] [address] [place] [address], [place] [address] Sep, [facility] [address] [id number] [address] [place] [address], [place] [address] Aug, [facility] [address] [id number] [address] [place] [address], [place] [address] Aug, [facility] [address] [id number] [address] [place] [address], [place] [address] Aug, [facility] [address] [id number] [address] [place] [address], [place] [address] Aug, [facility] [address] [id number] [address] [place] [address], [place] [address] Jul, [facility] [address] [id number] [address] [place] [address], [place] [address] Jul, [facility] [address] [id number] [address] [place] [address], [place] [address] Jul, [facility] [address] [id number] [address] [place] [address], [place] [address] Jul, [facility] [address] [id number] [address] [place] [address], [place] [address] Jul, [facility] [address] [id number] [address] [place] [address], [place] [address] Jul, [facility] [address] [id number] [address] [place] [address], [place] [address] Jun, [facility] [address] [id number] [address] [place] [address], [place] [address] Jun, [facility] [address] [id number] [address] [place] [address], [place] [address] Jun, [facility] [address] [id number] [address] [place] [address], [place] [address] Jun, [facility] [address] [id number] [address] [place] [address], [place] [address] Jun, [facility] [address] [id number] [address] [place] [address], [place] [address] Jun, [facility] [address] [id number] [address] [place] [address], [place] [address] May, [facility] [address] [id number] [address] [place] [address], [place] [address] May, [facility] [address] [id number] [address] [place] [address], [place] [address] May, [facility] [address] [id number] [address] [place] [address], [place] [address] May, [facility] [address] [id number] [address] [place] [address], [place] [address] May, [facility] [address] [id number] [address] [place] [address], [place] [address] May, [facility] [address] [id number] [address] [place] [address], [place] [address] May, [facility] [address] [id number] [address] [place] [address], [place] [address] May, [facility] [address] [id number] [address] [place] [address], [place] [address] Apr, [facility] [address] [id number] [address] [place] [address], [place] [address] Apr, [facility] [address] [id number] [address] [place] [address], [place] [address] Mar, [facility] [address] [id number] [address] [place] [address], [place] [address] Mar, [facility] [address] [id number] [address] [place] [address], [place] [address] Mar, [facility] [address] [id number] [address] [place] [address], [place] [address] Mar, [facility] [address] [id number] [address] [place] [address], [place] [address] Feb, [facility] [address] [id number] [address] [place] [address], [place] [address] Jan, [facility] [address] [id number] [address] [place] [address], [place] [address] December, [facility] [address] [id number] [address] [place] [address], [place] [address] December, [facility] [address] [id number] [address] [place] [address], [place] [address] December, [facility] [address] [id number] [address] [place] [address], [place] [address] Nov, [facility] [address] [id number] [address] [place] [address], [place] [address] Nov, [facility] [address] [id number] [address] [place] [address], [place] [address] Sep, [facility] [address] [id number] [address] [place] [address], [place] [address] Sep, [facility] [address] [id number] [address] [place] [address], [place] [address] Sep, [facility] [address] [id number] [address] [place] [address], [place] [address] Sep, [facility] [address] [id number] [address] [place] [address], [place] [address] Aug, [facility] [address] [id number] [address] [place] [address], [place] [address] Aug, [facility] [address] [id number] [address] [place] [address] 08 Aug, 2012 [facility] [address] [id number] [address] [place] [address], [place] [address] Aug, [facility] [address] [id number] [address] [place] [address], [place] [address] Jul, [facility] [address] [id number] [address] [place] [address], [place] [address] Jul, [facility] [address] [id number] [address] [place] [address], [place] [address] Jul, [facility] [address] [id number] [address] [place] [address], [place] [address] Jul, [facility] [address] [id number] [address] [place] [address], [place] [address] Jun, [facility] [address] [id number] [address] [place] [address], [place] [address] Jun, [facility] [address] [id number] [address] [place] [address], [place] [address] Jun, [facility] [address] [id number] [address] [place] [address], [place] [address] Jun, [facility] [address] [id number] [address] [place] [address], [place] [address] May, [facility] [address] [id number] [address] [place] [address], [place] [address] May, [facility] [address] [id number] [address] [place] [address] May, [facility] [address] [id number] [address] [place] [address], [place] [address] May, [facility] [address] [id number] [address] [place] [address], [place] [address] 08 May, 2012 [facility] [address] [id number] [address] [place] [address], [place] [address] Apr, [facility] [address] [id number] [address] [place] [address], [place] [address] 08 Apr, 2012 [facility] [address] [id number] [address] [place] [address], [place] [address] 07 Apr, 2012 [facility] [address] [id number] [address] [place] [address], [place] [address] 06 Apr, 2012 [facility] [address] [id number] [address] [place] [address], [place] [address] Mar, [facility] [address] [id number] [address] [place] [address], [place] [address] Mar, [facility] [address] [id number] [address] [place] [address], [place] [address] Feb, [facility] [address] [id number] [address] [place] [address], [place] [address] Feb, [facility] [address] [id number] [address] [place] [address], [place] [address] Feb, [facility] [address] [id number] [address] [place] [address], [place] [address] Jan, [facility] [address] [id number] [address] [place] [address], [place] [address] Jan, [facility] [address] [id number] [address] [place] [address], [place] [address] December, [facility] [address] [id number] [address] [place] [address], [place] [address] December, [facility] [address] [id number] [address] [place] [address], [place] [address] Nov, [facility] [address] [id number] [address] [place] [address], [place] [address] Oct, [facility] [address] [id number] [address] [place] [address], [place] [address] Oct, [facility] [address] [id number] [address] [place] [address], [place] [address] Sep, [facility] [address] [id number] [address] [place] [address], [place] [address] Sep, [facility] [address] [id number] [address] [place] [address], [place] [address] Aug, [facility] [address] [id number] [address] [place] [address], [place] [address] Aug, [facility] [address] [id number] [address] [place] [address], [place] [address] Jul, [facility] [address] [id number] [address] [place] [address], [place] [address] Jul, [facility] [address] [id number] [address] [place] [address], [place] [address] Jul, [facility] [address] [id number] [address] [place] [address], [place] [address] Jun, [facility] [address] [id number] [address] [place] [address], [place] [address] Jun, [facility] [address] [id number] [address] [place] [address], [place] [address] May, [facility] [address] [id number] [address] [place] [address], [place] [address] May, [facility] [address] [id number] [address] [place] [address] May, [facility] [address] [id number] [address] [place] [address] Jul, [facility] [address] [id number] [address] [place] [address], [place] [address] Jul, [facility] [address] [id number] [address] [place] [address] 15 Jun, 2010 [facility] [address] [id number] [address] [place] [address], [place] [address] May, [facility] [address] [id number] [address] [place] [address] May, [facility] [address] [id number] [address] [place] [address] Aug, [facility] [address] [id number] [address] [place] [address] Jul, [facility] [address] [facility] [id number] [address] [place] [address] Jun, [facility] [address] [facility] [id number] [address] [place] [address] Jun, [facility] [address] [facility] [id number] [address] [place] [address] Jun, [facility] [address] [facility] [id number] [address] [place] [id number] Jun, [facility] [address] [facility] [id number] [address] [place] [address] Jun, [facility] [address] [facility] [id number] [address] [place] [address] May, [facility] [address] [facility] [id number] [address] [place] [address] Sep, IMMUNIZATIONS No Known Immunizations SOCIAL HISTORY [...]
--- OUTSIDE RECORDS SUMMARY | 2020-01-28 14:31 | XMS REPORT ---
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 Name Role Phone GEORGINA RODRIGUEZ Unavailable PROBLEMS Type Condition ICD9-CM Code FOW90-OQ Code Onset Dates Condition S tatus SNOMED Code Problem Osteoarthritis M19.90 Active 34671 5006 Problem Chronic obstructive pulmonary disease, unspecified COPD ty pe J44.9 Active 29736925 Problem Acquired hypothyroidism E03.9 Active 248191997 Problem Cigarette nicotine dependence without complication F17.210 Active 68141735 Problem Diabetes E11.9 Active 319899042 Problem High risk medication use Z79.899 Activ e 459611298 Problem Urinary incontinence, unspecified type R32 Active 651485024 Problem [facility] (current) use of anticoagulants Z79.01 Active 650681663 Problem Morbid obesity, unspecified obesity type E66.01 Active 041512477 Problem Other chronic pain G89.29 Active 8 0085383 Problem History of cataract surgery Z98.49 Ac tive 627935575 Problem Type 2 diabetes mellitus wit h hyperglycemia, without long-term current use of insulin E11.65 Active 85441424 Problem Encounter for immunization Z23 Act essie 432953246 Problem Irregular heart beats I49.9 Active 735197683 Problem Other urinary incontinence N39.498 Act essie 398417280 Problem Essential hypertension I10 Active 97022049 Problem Chronic atrial fibrillation I48.2 Ac tive 446632671 ALLERGIES No Information ENCOUNTERS Encounter Location Date Diagnosis [facility] [address] [facility] [id number] [address] [place] [address] Apr, Osteoarthritis M19.90 [facility] [address] [facility] [id number] [address] [place] [address] Mar, Chronic atrial fibrillation I48.2 [facility] [address] [facility] [id number] [address] [place] [address] Mar, Chronic atrial fibrillation I48.2 [facility] [address] [id number] [address] [place] [address] Mar, Osteoarthritis M19.90 [facility] [address] [facility] [id number] [address] [place] [address] Mar, Chronic atrial fibrillation I48.2 [facility] [address] [facility] [id number] [address] [place] [address] Mar, Type 2 diabetes mellitus wit h hyperglycemia, without long-term current use of insulin E11.65 ; Chronic atrial fibrillation I48.2 and Morbid obesity E66.01 [facility] [address] [id number] [address] [place] [address] Feb, Osteoarthritis M19.90 [facility] [address] [facility] [id number] [address] [place] [address] Feb, Chronic atrial fibrillation I48.2 [facility] [address] [facility] [id number] [address] [place] [address] Feb, Hyperglycemia R73.9 ; Diabet es E11.9 ; Morbid obesity E66.01 ; Acquired hypothyroidism E03.9 ; Osteoarthritis M19.90 and High risk medication use Z79.899 [facility] [address] [facility] [id number] [address] [place] [address] Feb, Chronic atrial fibrillation I48.2 [facility] [address] [id number] [address] [place] [address] Jan, Osteoarthritis M19.90 [facility] [address] [facility] [id number] [address] [place] [address] Jan, Chronic atrial fibrillation I48.2 [facility] [address] [facility] [id number] [address] [place] [address] Jan, Chronic atrial fibrillation I48.2 [facility] [address] [facility] [id number] [address] [place] [address] Jan, Chronic atrial fibrillation I48.2 [facility] [address] [id number] [address] [place] [address] Jan, 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 Z79.01 [facility] [address] [id number] [address] [place] [address] December, [facility] [address] [id number] [address] [place] [address] December, [facility] [address] [id number] [address] [place] [address] December, Osteoarthritis M19.90 [facility] [address] [id number] [address] [place] [address] Nov, [facility] [address] [id number] [address] [place] [address] Nov, Osteoarthritis M19.90 [facility] [address] [id number] [address] [place] [address] Oct, Osteoarthritis M19.90 [facility] [address] [id number] [address] [place] [address] Sep, Osteoarthritis M19.90 [facility] [address] [id number] [address] [place] [address] Sep, [facility] (current) use of a nticoagulants Z79.01 ; BMI 45.0-49.9, adult Z68.42 ; Diabetes E11.9 ; Chronic atrial fibrillation I48.2 and Chronic obstructive pulmonary disease, unspecified COPD type J44.9 [facility] [address] [id number] [address] [place] [address] Sep, Diabetes E11.9 ; 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 Z79.01 ; Chronic atrial fibrillation I48.2 ; Chronic obstructive pulmonary disease, unspecified COPD type J44.9 and BMI 45.0-49.9, adult Z68.42 [facility] [address] [id number] [address] [place] [address] Aug, Osteoarthritis M19.90 [facility] [address] [id number] [address] [place] [address] Aug, [facility] [address] [id number] [address] [place] [address] Aug, [facility] (current) use of a nticoagulants Z79.01 ; BMI 45.0-49.9, adult Z68.42 ; Diabetes E11.9 and Chronic atrial fibrillation I48.2 [facility] [address] [id number] [address] [place] [address] Aug, [facility] [address] [id number] [address] [place] [address] Jul, Osteoarthritis M19.90 [facility] [address] [facility] [id number] [address] [place] [address] Jun, Osteoarthritis M19.90 [facility] [address] [id number] [address] [place] [address] Jun, [facility] (current) use of a nticoagulants Z79.01 [facility] [address] [facility] [id number] [address] [place] [address] Jun, Chronic atrial fibrillation I48.2 and 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 Z79.01 [facility] [address] [id number] [address] [place] [address] Jun, Osteoarthritis M19.90 [facility] [address] [id number] [address] [place] [address] May, Encounter for immunization Z 23 [facility] [address] [facility] [id number] [address] [place] [address] May, [facility] (current) use of a nticoagulants Z79.01 [facility] [address] [facility] [id number] [address] [place] [address] May, Osteoarthritis M19.90 [facility] [address] [facility] [id number] [address] [place] [address] May, [facility] [address] [facility] [id number] [address] [place] [address] May, Diabetes E11.9 ; 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 Z79.01 ; Chronic atrial fibrillation I48.2 ; BMI 45.0-49.9, adult Z68.42 ; Osteoarthritis M19.90 ; Low back pain M54.5 and Other chronic pain G89.29 [facility] [address] [id number] [address] [place] [phone] 20 Apr, 2018 Chronic atrial fibrillation I48.2 [facility] [address] [facility] [id number] [address] [place] [address] 13 Apr, 2018 [facility] (current) use of a nticoagulants Z79.01 [facility] [address] [facility] [id number] [address] [place] [address] 07 Apr, 2018 Osteoarthritis M19.90 [facility] [address] [facility] [id number] [address] [place] [address] 04 Apr, 2018 [facility] (current) use of a nticoagulants Z79.01 and Chronic atrial fibrillation I48.2 [facility] [address] [facility] [id number] [address] [place] [address] Mar, Osteoarthritis M19.90 [facility] [address] [facility] [id number] [address] [place] [address] Feb, Osteoarthritis M19.90 [facility] [address] [facility] [id number] [address] [place] [address] Jan, Osteoarthritis M19.90 [facility] [address] [facility] [id number] [address] [place] [address] December, [facility] [address] [facility] [id number] [address] [place] [address] December, Osteoarthritis M19.90 [facility] [address] [facility] [id number] [address] [place] [address] Nov, Diabetes E11.9 ; [facility] ( current) use of anticoagulants Z79.01 ; Acquired hypothyroidism E03.9 ; Cigarette nicotine dependence without complication F17.210 ; Osteoarthritis M19.90 ; BMI 45.0-49.9, adult Z68.42 and Chronic atrial fibrillation I48.2 [facility] [id number] [place] [address] Nov, Osteoarthritis M19.90 [facility] [address] [place] [id number] [place] [address] Oct, Osteoarthritis M19.90 [place] [address] [address] Oct, [facility] (current) use of a nticoagulants Z79.01 [facility] [address] [place] [id number] [address] [place] [address] Sep, Osteoarthritis M19.90 [place] [address] [place] [id number] [address] [place] [address] Sep, [facility] [address] [place] [id number] [address] [place] [address] Aug, Osteoarthritis M19.90 [place] [address] [place] [id number] [place] [address] Jul, Osteoarthritis M19.90 [place] [address] [place] [id number] [address] [place] [address] Jul, Osteoarthritis M19.90 [place] [address] [place] [id number] [place] [address] Jun, Diabetes E11.9 ; Encounter f or immunization Z23 ; [facility] (current) use of anticoagulants Z79.01 ; Chronic atrial fibrillation I48.2 ; Osteoarthritis M19.90 ; Tobacco abuse Z72.0 and Bug bite, initial encounter W57.XXXA [place] [address] [place] [id number] [address] [place] [address] May, Osteoarthritis M19.90 [place] [address] [id number] [address] [place] [address] Apr, Osteoarthritis M19.90 [facility] [address] [id number] [address] [place] [address] Mar, Chronic atrial fibrillation I48.2 [facility] [address] [id number] [address] [place] [address] Mar, [facility] [address] [id number] [address] [place] [address] Mar, Osteoarthritis M19.90 [facility] [address] [id number] [address] [place] [address] Mar, [facility] (current) use of a nticoagulants Z79.01 and Chronic atrial fibrillation I48.2 [facility] [address] [id number] [address] [place] [address] Mar, Chronic atrial fibrillation I48.2 and 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 Z79.01 [facility] [address] [id number] [address] [place] [address] Mar, 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 Z79.01 [facility] [address] [id number] [address] [place] [address] Mar, 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 Z79.01 [facility] [address] [id number] [address] [place] [address] Mar, Osteoarthritis M19.90 [facility] [address] [id number] [address] [place] [address] Feb, Encounter for screening mamm ogram for malignant neoplasm of breast Z12.31 [facility] [address] [id number] [address] [place] [address] Feb, Osteoarthritis M19.90 [facility] [address] [id number] [address] [place] [address] Jan, [facility] [address] [id number] [address] [place] [address] Jan, 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 Z79.01 ; Diabetes E11.9 ; Osteoarthritis M19.90 and Breast cancer screening Z12.39 [facility] [address] [id number] [address] [place] [address] Jan, Osteoarthritis M19.90 [facility] [address] [id number] [address] [place] [address] Jan, Osteoarthritis M19.90 [facility] [address] [id number] [address] [place] [address] Jan, [facility] [address] [facility] [id number] [address] [place] [address] December, Osteoarthritis M19.90 [facility] [address] [id number] [address] [place] [address] December, Osteoarthritis M19.90 [facility] [id number] [place] [id number] Nov, [facility] [address] [facility] [id number] [address] [place] [address] Nov, [facility] [address] [facility] [id number] [address] [place] [address] Nov, [facility] [address] [facility] [id number] [address] [place] [address] Nov, Diabetes E11.9 [facility] [address] [id number] [address] [place] [address] Nov, [facility] [address] [facility] [id number] [address] [place] [address] Oct, Osteoarthritis M19.90 [facility] [address] [facility] [id number] [address] [place] [address] Oct, Osteoarthritis M19.90 ; [facility] (current) use of anticoagulants Z79.01 ; Diabetes E11.9 ; Cigarette nicotine dependence without complication F17.210 and Chronic atrial fibrillation I48.2 [place] [address] [address] Aug, [facility] [address] [place] [id number] [place] [address] Aug, 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 Z79.01 [facility] [address] [place] [id number] [address] [place] [address] Aug, [facility] [address] [place] [id number] [place] [address] [id number] Aug, [place] [address] [address] Aug, [place] [address] [address] Aug, [facility] [address] [place] [id number] [place] [id number] Aug, [facility] [address] [place] [id number] Aug Osteoarthritis M19.90 and Essential hypertension I10 [place] [address] [place] [id number] [address] [place] [address] Aug, Other urinary incontinence N 39.498 [place] [address] [place] [id number] [address] [place] [address] Jul, Osteoarthritis M19.90 [place] [address] [place] [id number] [address] [place] [address] Jun, Diabetes E11.9 ; Encounter f or immunization Z23 ; Osteoarthritis M19.90 ; [facility] (current) use of anticoagulants Z79.01 ; Cigarette nicotine dependence without complication F17.210 ; Acquired hypothyroidism E03.9 ; Morbid obesity, unspecified obesity type E66.01 and Irregular heart beats I49.9 [place] [address] [place] [id number] [address] [place] [address] Jun, Osteoarthritis M19.90 [facility] [address] [facility] [id number] [address] [place] [address] May, Osteoarthritis M19.90 [facility] [address] [place] [id number] [address] [place] [address] May, Urinary incontinence, unspec ified type R32 [facility] [address] [place] [id number] [address] [place] [address] May, [facility] [address] [address] Apr, Osteoarthritis M19.90 [facility] [address] [address] Apr, [facility] (current) use of a nticoagulants Z79.01 [facility] [address] [address] Apr, [facility] [address] [address] Apr, Osteoarthritis M19.90 [facility] [address] [address] Mar, Diabetes E11.9 ; Hypothyroid ism, unspecified type E03.9 ; Osteoarthritis M19.90 ; High risk medication use Z79.899 ; Cigarette nicotine dependence without complication F17.210 and Morbid obesity, unspecified obesity type E66.01 [facility] [id number] [place] [address] Mar, Osteoarthritis M19.90 [facility] [address] [facility] [id number] [address] [place] [address] December, Osteoarthritis M19.90 [facility] [address] [place] [id number] [address] [place] [address] December, [facility] [address] [place] [id number] [address] [place] [address] Oct, [facility] [address] [facility] [id number] [address] [place] [address] Oct, [facility] [address] [facility] [id number] [address] [place] [address] Aug, [facility] [address] [facility] [id number] [address] [place] [address] Jul, [facility] [address] [facility] [id number] [address] [place] [address] Jul, [facility] [address] [facility] [id number] [address] [place] [address] Jul, Diabetes E11.9 ; Encounter f or immunization Z23 ; Abnormal mammogram R92.8 ; Acquired hypothyroidism E03.9 ; High risk medication use Z79.899 ; Osteoarthritis M19.90 and Cigarette nicotine dependence without complication F17.210 [facility] [address] [facility] [id number] [address] [place] [address] Jul, [facility] [address] [facility] [id number] [address] [place] [address] Jun, Abnormal mammogram R92.8 [facility] [address] [place] [id number] [address] [place] [address] Apr, [facility] [address] [facility] [id number] [address] [place] [address] Apr, [facility] [address] [facility] [id number] [address] [place] [address] Mar, [facility] [address] [facility] [id number] [address] [place] [address] Mar, Current use of snf ant 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 V58.61 [facility] [address] [facility] [id number] [address] [place] [address] Feb, [facility] [address] [facility] [id number] [address] [place] [address] Jan, [facility] [address] [facility] [id number] [address] [place] [address] December, [facility] [address] [id number] [address] [place] [address], [place] [address] Nov, [facility] [address] [id number] [address] [place] [address], [place] [address] Nov, [facility] [address] [id number] [address] [place] [address], [place] [address] Oct, [facility] [address] [id number] [address] [place] [address], [place] [address] Oct, [facility] [address] [id number] [address] [place] [address], [place] [address] Oct, [facility] [address] [id number] [address] [place] [address], [place] [address] Oct, [facility] [address] [id number] [address] [place] [address], [place] [address] Oct, [facility] [address] [id number] [address] [place] [address], [place] [address] Oct, [facility] [address] [id number] [address] [place] [address], [place] [address] Sep, [facility] [address] [id number] [address] [place] [address], [place] [address] Sep, [facility] [address] [id number] [address] [place] [address], [place] [address] Sep, [facility] [address] [id number] [address] [place] [address], [place] [address] Sep, [facility] [address] [id number] [address] [place] [address], [place] [address] Aug, [facility] [address] [id number] [address] [place] [address], [place] [address] Aug, [facility] [address] [id number] [address] [place] [id number] Aug, [facility] [address] [id number] [address] [place] [address], [place] [id number] Aug, [facility] [address] [id number] [address] [place] [address], [place] [id number] Aug, [facility] [address] [id number] [address] [place] [address], [place] [id number] Aug, [facility] [address] [id number] [address] [place] [address], [place] [address] Jul, [facility] [address] [id number] [address] [place] [address], [place] [address] Jul, [facility] [address] [id number] [address] [place] [address], [place] [address] Jul, [facility] [address] [id number] [address] [place] [address], [place] [address] Jul, [facility] [address] [id number] [address] [place] [address], [place] [address] Jul, [facility] [address] [id number] [address] [place] [address], [place] [address] Jul, [facility] [address] [id number] [address] [place] [address], [place] [address] Jun, [facility] [address] [id number] [address] [place] [address], [place] [address] Jun, [facility] [address] [id number] [address] [place] [address], [place] [address] Jun, [facility] [address] [id number] [address] [place] [address], [place] [address] Jun, [facility] [address] [id number] [address] [place] [address], [place] [address] Jun, [facility] [address] [id number] [address] [place] [address], [place] [id number] Jun, [facility] [address] [id number] [address] [address] Jun, [facility] [address] [id number] [address] [place] [address], [place] [id number] Jun, [facility] [address] [id number] [address] [place] [address], [place] [address] Jun, [facility] [address] [id number] [address] [place] [address], [place] [address] May, [facility] [address] [id number] [address] [place] [address], [place] [id number] May, [facility] [facility] [address] [id number] [address] [place] [address], [place] [address] Apr, [facility] [address] [id number] [address] [place] [address], [place] [address] Apr, [facility] [address] [id number] [address] [place] [address], [place] [address] Apr, [facility] [address] [id number] [address] [place] [address], [place] [address] Apr, [facility] [address] [id number] [address] [place] [address], [place] [address] Apr, [facility] [address] [id number] [address] [place] [address], [place] [address] Apr, [facility] [address] [id number] [address] [place] [address], [place] [address] Apr, [facility] [address] [id number] [address] [place] [address], [place] [address] Apr, [facility] [address] [id number] [address] [place] [address], [place] [address] Apr, [facility] [address] [id number] [address] [place] [address], [place] [address] Apr, [facility] [address] [id number] [address] [place] [address], [place] [address] Mar, [facility] [address] [id number] [address] [place] [address], [place] [address] Mar, [facility] [address] [id number] [address] [place] [address], [place] [address] Mar, [facility] [address] [id number] [address] [place] [address], [place] [address] Mar, [facility] [address] [id number] [address] [place] [address], [place] [address] Mar, [facility] [address] [id number] [address] [place] [address], [place] [address] Mar, [facility] [address] [id number] [address] [place] [address], [place] [address] Feb, [facility] [address] [id number] [address] [place] [address], [place] [address] Feb, [facility] [address] [id number] [address] [place] [address], [place] [address] Feb, [facility] [address] [id number] [address] [place] [address], [place] [address] Feb, [facility] [address] [id number] [address] [place] [address], [place] [address] Jan, [facility] [address] [id number] [address] [place] [address], [place] [address] Jan, [facility] [address] [id number] [address] [place] [address], [place] [address] Jan, [facility] [address] [id number] [address] [place] [address], [place] [address] Jan, [facility] [address] [id number] [address] [place] [address], [place] [address] Oct, [facility] [address] [id number] [address] [place] [address], [place] [address] Oct, [facility] [address] [id number] [address] [place] [address], [place] [address] Sep, [facility] [address] [id number] [address] [place] [address], [place] [address] Sep, [facility] [address] [id number] [address] [place] [address], [place] [address] Sep, [facility] [address] [id number] [address] [place] [address], [place] [address] Sep, [facility] [address] [id number] [address] [place] [address], [place] [address] Aug, [facility] [address] [id number] [address] [place] [address], [place] [address] Aug, [facility] [address] [id number] [address] [place] [address], [place] [address] Aug, [facility] [address] [id number] [address] [place] [address], [place] [address] Aug, [facility] [address] [id number] [address] [place] [address], [place] [address] Jul, [facility] [address] [id number] [address] [place] [address], [place] [address] Jul, [facility] [address] [id number] [address] [place] [address], [place] [address] Jul, [facility] [address] [id number] [address] [place] [address], [place] [address] Jul, [facility] [address] [id number] [address] [place] [address], [place] [address] Jul, [facility] [address] [id number] [address] [place] [address], [place] [address] Jul, [facility] [address] [id number] [address] [place] [address], [place] [address] Jun, [facility] [address] [id number] [address] [place] [address], [place] [address] Jun, [facility] [address] [id number] [address] [place] [address], [place] [address] Jun, [facility] [address] [id number] [address] [place] [address], [place] [address] Jun, [facility] [address] [id number] [address] [place] [address], [place] [address] Jun, [facility] [address] [id number] [address] [place] [address], [place] [address] Jun, [facility] [address] [id number] [address] [place] [address], [place] [address] May, [facility] [address] [id number] [address] [place] [address], [place] [address] May, [facility] [address] [id number] [address] [place] [address], [place] [address] May, [facility] [address] [id number] [address] [place] [address], [place] [address] May, [facility] [address] [id number] [address] [place] [address], [place] [address] May, [facility] [address] [id number] [address] [place] [address], [place] [address] May, [facility] [address] [id number] [address] [place] [address], [place] [address] May, [facility] [address] [id number] [address] [place] [address], [place] [address] May, [facility] [address] [id number] [address] [place] [address], [place] [address] Apr, [facility] [address] [id number] [address] [place] [address], [place] [address] Apr, [facility] [address] [id number] [address] [place] [address], [place] [address] Mar, [facility] [address] [id number] [address] [place] [address], [place] [address] Mar, [facility] [address] [id number] [address] [place] [address], [place] [address] Mar, [facility] [address] [id number] [address] [place] [address], [place] [address] Mar, [facility] [address] [id number] [address] [place] [address], [place] [address] Feb, [facility] [address] [id number] [address] [place] [address], [place] [address] Jan, [facility] [address] [id number] [address] [place] [address], [place] [address] December, [facility] [address] [id number] [address] [place] [address], [place] [address] December, [facility] [address] [id number] [address] [place] [address], [place] [address] December, [facility] [address] [id number] [address] [place] [address], [place] [address] Nov, [facility] [address] [id number] [address] [place] [address], [place] [address] Nov, [facility] [address] [id number] [address] [place] [address], [place] [address] Sep, [facility] [address] [id number] [address] [place] [address], [place] [address] Sep, [facility] [address] [id number] [address] [place] [address], [place] [address] Sep, [facility] [address] [id number] [address] [place] [address], [place] [address] Sep, [facility] [address] [id number] [address] [place] [address], [place] [address] Aug, [facility] [address] [id number] [address] [place] [address], [place] [address] Aug, [facility] [address] [id number] [address] [place] [address] 08 Aug, 2012 [facility] [address] [id number] [address] [place] [address], [place] [address] Aug, [facility] [address] [id number] [address] [place] [address], [place] [address] Jul, [facility] [address] [id number] [address] [place] [address], [place] [address] Jul, [facility] [address] [id number] [address] [place] [address], [place] [address] Jul, [facility] [address] [id number] [address] [place] [address], [place] [address] Jul, [facility] [address] [id number] [address] [place] [address], [place] [address] Jun, [facility] [address] [id number] [address] [place] [address], [place] [address] Jun, [facility] [address] [id number] [address] [place] [address], [place] [address] Jun, [facility] [address] [id number] [address] [place] [address], [place] [address] Jun, [facility] [address] [id number] [address] [place] [address], [place] [address] May, [facility] [address] [id number] [address] [place] [address], [place] [address] May, [facility] [address] [id number] [address] [place] [address] May, [facility] [address] [id number] [address] [place] [address], [place] [address] May, [facility] [address] [id number] [address] [place] [address], [place] [address] 08 May, 2012 [facility] [address] [id number] [address] [place] [address], [place] [address] Apr, [facility] [address] [id number] [address] [place] [address], [place] [address] 08 Apr, 2012 [facility] [address] [id number] [address] [place] [address], [place] [address] 07 Apr, 2012 [facility] [address] [id number] [address] [place] [address], [place] [address] 06 Apr, 2012 [facility] [address] [id number] [address] [place] [address], [place] [address] Mar, [facility] [address] [id number] [address] [place] [address], [place] [address] Mar, [facility] [address] [id number] [address] [place] [address], [place] [address] Feb, [facility] [address] [id number] [address] [place] [address], [place] [address] Feb, [facility] [address] [id number] [address] [place] [address], [place] [address] Feb, [facility] [address] [id number] [address] [place] [address], [place] [address] Jan, [facility] [address] [id number] [address] [place] [address], [place] [address] Jan, [facility] [address] [id number] [address] [place] [address], [place] [address] December, [facility] [address] [id number] [address] [place] [address], [place] [address] December, [facility] [address] [id number] [address] [place] [address], [place] [address] Nov, [facility] [address] [id number] [address] [place] [address], [place] [address] Oct, [facility] [address] [id number] [address] [place] [address], [place] [address] Oct, [facility] [address] [id number] [address] [place] [address], [place] [address] Sep, [facility] [address] [id number] [address] [place] [address], [place] [address] Sep, [facility] [address] [id number] [address] [place] [address], [place] [address] Aug, [facility] [address] [id number] [address] [place] [address], [place] [address] Aug, [facility] [address] [id number] [address] [place] [address], [place] [address] Jul, [facility] [address] [id number] [address] [place] [address], [place] [address] Jul, [facility] [address] [id number] [address] [place] [address], [place] [address] Jul, [facility] [address] [id number] [address] [place] [address], [place] [address] Jun, [facility] [address] [id number] [address] [place] [address], [place] [address] Jun, [facility] [address] [id number] [address] [place] [address], [place] [address] May, [facility] [address] [id number] [address] [place] [address], [place] [address] May, [facility] [address] [id number] [address] [place] [address] May, [facility] [address] [id number] [address] [place] [address] Jul, [facility] [address] [id number] [address] [place] [address], [place] [address] Jul, [facility] [address] [id number] [address] [place] [address] 15 Jun, 2010 [facility] [address] [id number] [address] [place] [address], [place] [address] May, [facility] [address] [id number] [address] [place] [address] May, [facility] [address] [id number] [address] [place] [address] Aug, [facility] [address] [id number] [address] [place] [address] Jul, [facility] [address] [facility] [id number] [address] [place] [address] Jun, [facility] [address] [facility] [id number] [address] [place] [address] Jun, [facility] [address] [facility] [id number] [address] [place] [address] Jun, [facility] [address] [facility] [id number] [address] [place] [address] Jun, [facility] [address] [facility] [id number] [address] [place] [address] Jun, [facility] [address] [facility] [id number] [address] [place] [address] May, [facility] [address] [facility] [id number] [address] [place] [address] Sep, IMMUNIZATIONS No Known Immunizations SOCIAL HISTORY [...]
--- OUTSIDE RECORDS SUMMARY | 2020-01-28 14:32 | XMS REPORT ---
Author Author Katarina RODRIGUEZ Organization [facility] Address [address] [place] [address] Care Team Providers Care Outbound Supervisor Name Role Phone GEORGINA RODRIGUEZ Unavailable PROBLEMS Type Condition ICD9-CM Code YMT00-BL Code Onset Dates Condition S tatus SNOMED Code Problem Osteoarthritis M19.90 Active 00227 5006 Problem Chronic obstructive pulmonary disease, unspecified COPD ty pe J44.9 Active 56057192 Problem Acquired hypothyroidism E03.9 Active 474048868 Problem Cigarette nicotine dependence without complication F17.210 Active 34283936 Problem Diabetes E11.9 Active 737637601 Problem High risk medication use Z79.899 Activ e 078354729 Problem Urinary incontinence, unspecified type R32 Active 468482322 Problem 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 (current) use of anticoagulants Z79.01 Active 842092126 Problem Morbid obesity, unspecified obesity type E66.01 Active 520565676 Problem Other chronic pain G89.29 Active 8 3286123 Problem History of cataract surgery Z98.49 Ac tive 430458502 Problem Type 2 diabetes mellitus wit h hyperglycemia, without long-term current use of insulin E11.65 Active 51378563 Problem Encounter for immunization Z23 Act essie 645284520 Problem Irregular heart beats I49.9 Active 849840152 Problem Other urinary incontinence N39.498 Act essie 153616650 Problem Essential hypertension I10 Active 32551582 Problem Chronic atrial fibrillation I48.2 Ac tive 274792282 ALLERGIES No Information ENCOUNTERS Encounter Location Date Diagnosis [facility] [address] [facility] [id number] [address] [place] [id number] Mar, Chronic atrial fibrillation I48.2 [facility] [address] [facility] [id number] [address] [place] [id number] Mar, Chronic atrial fibrillation I48.2 [facility] [address] [facility] [id number] [address] [place] [id number] Mar, Osteoarthritis M19.90 [facility] [address] [id number] [address] [place] [phone] Mar, Chronic atrial fibrillation I48.2 [facility] [address] [facility] [id number] [address] [place] [id number] Mar, Type 2 diabetes mellitus wit h hyperglycemia, without long-term current use of insulin E11.65 ; Chronic atrial fibrillation I48.2 and Morbid obesity E66.01 [facility] [address] [id number] [address] [place] [phone] Feb, Osteoarthritis M19.90 [facility] [address] [facility] [id number] [address] [place] [id number] Feb, Chronic atrial fibrillation I48.2 [facility] [address] [facility] [id number] [address] [place] [id number] Feb, Hyperglycemia R73.9 ; Diabet es E11.9 ; Morbid obesity E66.01 ; Acquired hypothyroidism E03.9 ; Osteoarthritis M19.90 and High risk medication use Z79.899 [facility] [address] [facility] [id number] [address] [place] [phone] Feb, Chronic atrial fibrillation I48.2 [facility] [address] [facility] [id number] [address] [place] [id number] Jan, Osteoarthritis M19.90 [facility] [address] [facility] [id number] [address] [place] [phone] Jan, Chronic atrial fibrillation I48.2 [facility] [address] [facility] [id number] [address] [place] [id number] Jan, Chronic atrial fibrillation I48.2 [facility] [address] [facility] [id number] [address] [place] [id number] Jan, Chronic atrial fibrillation I48.2 [facility] [address] [facility] [id number] [address] [place] [phone] Jan, 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 of a nticoagulants Z79.01 [facility] [address] [id number] [address] [place] [id number] December, [facility] [address] [id number] [address] [place] [id number] December, [facility] [address] [id number] [address] [place] [id number] December, Osteoarthritis M19.90 [facility] [address] [id number] [address] [place] [id number] Nov, [facility] [address] [id number] [address] [place] [id number] Nov, Osteoarthritis M19.90 [facility] [address] [id number] [address] [place] [id number] Oct, Osteoarthritis M19.90 [facility] [address] [id number] [address] [place] [id number] Sep, Osteoarthritis M19.90 [facility] [address] [id number] [address] [place] [id number] Sep, 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 (current) use of a nticoagulants Z79.01 ; BMI 45.0-49.9, adult Z68.42 ; Diabetes E11.9 ; Chronic atrial fibrillation I48.2 and Chronic obstructive pulmonary disease, unspecified COPD type J44.9 [facility] [address] [id number] [address] [place] [id number] Sep, Diabetes E11.9 ; 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 ( current) use of anticoagulants Z79.01 ; Chronic atrial fibrillation I48.2 ; Chronic obstructive pulmonary disease, unspecified COPD type J44.9 and BMI 45.0-49.9, adult Z68.42 [facility] [address] [id number] [address] [place] [phone] Aug, Osteoarthritis M19.90 [facility] [address] [id number] [address] [place] [id number] Aug, [facility] [address] [id number] [address] [place] [id number] Aug, 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 of a nticoagulants Z79.01 ; BMI 45.0-49.9, adult Z68.42 ; Diabetes E11.9 and Chronic atrial fibrillation I48.2 [facility] [address] [id number] [address] [place] [id number] Aug, [facility] [address] [id number] [address] [place] [id number] Jul, Osteoarthritis M19.90 [facility] [address] [facility] [id number] [address] [place] [id number] Jun, Osteoarthritis M19.90 [facility] [address] [facility] [id number] [address] [place] [phone] Jun, 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 of a nticoagulants Z79.01 [facility] [address] [id number] [address] [place] [address] Jun, Chronic atrial fibrillation I48.2 and 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 (current) use of anticoagulants Z79.01 [facility] [address] [id number] [address] [place] [address] Jun, Osteoarthritis M19.90 [facility] [address] [id number] [address] [place] [phone] May, Encounter for immunization Z 23 [facility] [address] [id number] [address] [place] [phone] May, 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 (current) use of a nticoagulants Z79.01 [facility] [address] [facility] [id number] [address] [place] [address] May, Osteoarthritis M19.90 [facility] [address] [facility] [id number] [address] [place] [phone] May, [facility] [address] [facility] [id number] [address] [place] [address] May, Diabetes E11.9 ; 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 ( current) use of anticoagulants Z79.01 ; Chronic atrial fibrillation I48.2 ; BMI 45.0-49.9, adult Z68.42 ; Osteoarthritis M19.90 ; Low back pain M54.5 and Other chronic pain G89.29 [facility] [address] [id number] [address] [place] [id number] 20 Apr, 2018 Chronic atrial fibrillation I48.2 [facility] [address] [id number] [address] [place] [id number] 13 Apr, 2018 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 of a nticoagulants Z79.01 [facility] [address] [id number] [address] [place] [phone] 07 Apr, 2018 Osteoarthritis M19.90 [facility] [address] [facility] [id number] [address] [place] [id number] Apr, 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 (current) use of a nticoagulants Z79.01 and Chronic atrial fibrillation I48.2 [facility] [address] [id number] [address] [place] [address] Mar, Osteoarthritis M19.90 [facility] [address] [id number] [address] [place] [id number] Feb, Osteoarthritis M19.90 [facility] [address] [id number] [address] [place] [id number] Jan, Osteoarthritis M19.90 [facility] [address] [id number] [address] [place] [id number] December, [facility] [address] [id number] [address] [place] [address] December, Osteoarthritis M19.90 [facility] [address] [facility] [id number] [address] [place] [address] Nov, Diabetes E11.9 ; 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 ( current) use of anticoagulants Z79.01 ; Acquired hypothyroidism E03.9 ; Cigarette nicotine dependence without complication F17.210 ; Osteoarthritis M19.90 ; BMI 45.0-49.9, adult Z68.42 and Chronic atrial fibrillation I48.2 [facility] [address] [address] Nov, Osteoarthritis M19.90 [facility] [address] [place] [id number] [place] [phone] Oct, Osteoarthritis M19.90 [facility] [address] [id number] Oct, 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 (current) use of a nticoagulants Z79.01 [facility] [address] [place] [id number] [place] [address] Sep, Osteoarthritis M19.90 [facility] [address] [address] Sep, [facility] [address] [address] Aug, Osteoarthritis M19.90 [facility] [address] [id number] [address] [place] [address] Jul, Osteoarthritis M19.90 [facility] [address] [id number] Jul, Osteoarthritis M19.90 [facility] [address] [address] Jun, Diabetes E11.9 ; Encounter f or immunization Z23 ; 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 (current) use of anticoagulants Z79.01 ; Chronic atrial fibrillation I48.2 ; Osteoarthritis M19.90 ; Tobacco abuse Z72.0 and Bug bite, initial encounter W57.XXXA [facility] [address] [place] [id number] [address] [place] [id number] May, Osteoarthritis M19.90 [facility] [address] [id number] [address] [place] [id number] Apr, Osteoarthritis M19.90 [place] [address] [id number] [address] [place] [phone] Mar, Chronic atrial fibrillation I48.2 [facility] [address] [id number] [address] [place] [id number] Mar, [facility] [address] [id number] [address] [place] [id number] Mar, Osteoarthritis M19.90 [facility] [address] [id number] [address] [place] [id number] Mar, 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 (current) use of a nticoagulants Z79.01 and Chronic atrial fibrillation I48.2 [facility] [address] [id number] [address] [place] [id number] Mar, Chronic atrial fibrillation I48.2 and 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 of anticoagulants Z79.01 [place] [id number] [id number] [address] [place] [address] Mar, 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 of a nticoagulants Z79.01 [facility] [address] [id number] [address] [place] [phone] Mar, 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 (current) use of a nticoagulants Z79.01 [facility] [address] [id number] [address] [place] [id number] Mar, Osteoarthritis M19.90 [facility] [address] [id number] [address] [place] [id number] Feb, Encounter for screening mamm ogram for malignant neoplasm of breast Z12.31 [facility] [address] [id number] [address] [place] [id number] Feb, Osteoarthritis M19.90 [facility] [address] [id number] [address] [place] [phone] Jan, [facility] [address] [id number] [address] [place] [phone] Jan, 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 of a nticoagulants Z79.01 ; Diabetes E11.9 ; Osteoarthritis M19.90 and Breast cancer screening Z12.39 [facility] [address] [facility] [id number] [address] [place] [phone] Jan, Osteoarthritis M19.90 [facility] [address] [facility] [id number] [address] [place] [id number] Jan, Osteoarthritis M19.90 [facility] [address] [facility] [id number] [address] [place] [id number] Jan, [facility] [address] [facility] [id number] [address] [place] [address] December, Osteoarthritis M19.90 [facility] [address] [facility] [id number] [address] [place] [id number] December, Osteoarthritis M19.90 [facility] [address] [place] [id number] [place] [id number] Nov, [facility] [address] [facility] [id number] [address] [place] [phone] Nov, [facility] [address] [facility] [id number] [address] [place] [id number] Nov, [facility] [address] [facility] [id number] [address] [place] [id number] Nov, Diabetes E11.9 [facility] [address] [facility] [id number] [address] [place] [id number] Nov, [facility] [address] [facility] [id number] [address] [place] [id number] Oct, Osteoarthritis M19.90 [facility] [address] [facility] [id number] [address] [place] [address] Oct, Osteoarthritis M19.90 ; 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 of anticoagulants Z79.01 ; Diabetes E11.9 ; Cigarette nicotine dependence without complication F17.210 and Chronic atrial fibrillation I48.2 [facility] [address] [facility] [id number] [address] [place] [id number] Aug, [facility] [address] [facility] [id number] [address] [place] [id number] Aug, 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 of a nticoagulants Z79.01 [facility] [address] [facility] [id number] [address] [place] [phone] Aug, [facility] [address] [place] [id number] [facility] [place] [id number] Aug, [facility] [address] [facility] [id number] [address] [place] [id number] Aug, [facility] [address] [place] [id number] [address] [place] [phone] Aug, [facility] [id number] [facility] [id number] Aug, [facility] [address] [place], [place] [id number] Aug Osteoarthritis M19.90 and Essential hypertension I10 [place] [id number] [place] [id number] [address] [place] [address] Aug, Other urinary incontinence N 39.498 [place] [address] [place] [id number] [address] [place] [address] Jul, Osteoarthritis M19.90 [place] [address] [address] Jun, Diabetes E11.9 ; Encounter f or immunization Z23 ; Osteoarthritis M19.90 ; 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 (current) use of anticoagulants Z79.01 ; Cigarette nicotine dependence without complication F17.210 ; Acquired hypothyroidism E03.9 ; Morbid obesity, unspecified obesity type E66.01 and Irregular heart beats I49.9 [facility] [address] [place] [id number] [address] [place] [address] Jun, Osteoarthritis M19.90 [place] [address] [place] [id number] [address] [place] [address] May, Osteoarthritis M19.90 [facility] [address] [facility] [id number] [address] [place] [address] May, Urinary incontinence, unspec ified type R32 [facility] [address] [facility] [id number] [address] [place] [address] May, [facility] [address] [facility] [id number] [address] [place] [address] Apr, Osteoarthritis M19.90 [facility] [address] [facility] [id number] [address] [place] [id number] Apr, 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 of a nticoagulants Z79.01 [facility] [address] [facility] [id number] [address] [place] [phone] Apr, [facility] [address] [place] [id number] [address] [place] [address] Apr, Osteoarthritis M19.90 [facility] [address] [facility] [id number] [address] [place] [address] Mar, Diabetes E11.9 ; Hypothyroid ism, unspecified type E03.9 ; Osteoarthritis M19.90 ; High risk medication use Z79.899 ; Cigarette nicotine dependence without complication F17.210 and Morbid obesity, unspecified obesity type E66.01 [facility] [address] [facility] [id number] [address] [place] [id number] Mar, Osteoarthritis M19.90 [facility] [address] [facility] [id number] [address] [place] [address] December, Osteoarthritis M19.90 [facility] [address] [facility] [id number] [address] [place] [id number] December, [facility] [address] [facility] [id number] [address] [place] [id number] Oct, [facility] [address] [facility] [id number] [address] [place] [phone] Oct, [facility] [address] [place] [id number] [address] [place] [phone] Aug, [facility] [address] [id number] [address] [place] [phone] Jul, [facility] [address] [id number] [address] [place] [phone] Jul, [facility] [address] [id number] [address] [place] [address] Jul, Diabetes E11.9 ; Encounter f or immunization Z23 ; Abnormal mammogram R92.8 ; Acquired hypothyroidism E03.9 ; High risk medication use Z79.899 ; Osteoarthritis M19.90 and Cigarette nicotine dependence without complication F17.210 [facility] [address] [id number] [address] [place] [phone] Jul, [facility] [address] [facility] [id number] [address] [place] [phone] Jun, Abnormal mammogram R92.8 [facility] [address] [id number] [address] [place] [id number] Apr, [facility] [address] [id number] [address] [place] [phone] Apr, [facility] [address] [id number] [address] [place] [phone] Mar, [facility] [address] [facility] [id number] [address] [place] [phone] Mar, Current use of group home ant 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 V58.61 [facility] [address] [id number] [address] [place] [phone] Feb, [facility] [address] [id number] [address] [place] [phone] Jan, [facility] [address] [id number] [address] [place] [phone] December, [facility] [address] [facility] [id number] [address] [place] [phone] 14 Nov, 2014 [facility] [address] [id number] [address] [place] [address], [place] [id number] Nov, [facility] [address] [id number] [address] [place] [address], [place] [id number] Oct, [facility] [address] [id number] [address] [place] [address], [place] [id number] Oct, [facility] [address] [id number] [address] [place] [address], [place] [id number] Oct, [facility] [address] [id number] [address] [place] [address], [place] [address] Oct, [facility] [address] [id number] [address] [place] [address], [place] [address] Oct, [facility] [address] [id number] [address] [place] [address], [place] [address] Oct, [facility] [address] [id number] [address] [place] [address], [place] [address] Sep, [facility] [address] [id number] [address] [place] [address], [place] [address] Sep, [facility] [address] [id number] [address] [place] [address], [place] [address] Sep, [facility] [address] [id number] [address] [place] [address], [place] [address] Sep, [facility] [address] [id number] [address] [place] [address], [place] [address] Aug, [facility] [address] [id number] [address] [place] [address], [place] [address] Aug, [facility] [address] [id number] [address] [place] [address], [place] [address] Aug, [facility] [address] [id number] [address] [place] [address], [place] [address] Aug, [facility] [address] [id number] [address] [place] [address], [place] [address] 15 Aug, 2014 [facility] [address] [id number] [address] [place] [address], [place] [address] Aug, [facility] [address] [id number] [address] [place] [address], [place] [address] Jul, [facility] [address] [id number] [address] [place] [address], [place] [address] Jul, [facility] [address] [id number] [address] [place] [address], [place] [address] Jul, [facility] [address] [id number] [address] [place] [address], [place] [address] Jul, [facility] [address] [id number] [address] [place] [address], [place] [address] Jul, [facility] [address] [id number] [address] [place] [address], [place] [address] Jul, [facility] [address] [id number] [address] [place] [address], [place] [address] Jun, [facility] [address] [id number] [address] [place] [address], [place] [address] Jun, [facility] [address] [id number] [address] [place] [address], [place] [address] Jun, [facility] [address] [id number] [address] [place] [address], [place] [address] Jun, [facility] [address] [id number] [address] [place] [address], [place] [address] Jun, [facility] [address] [id number] [address] [place] [address], [place] [address] Jun, [facility] [address] [id number] [address] [place] [address], [place] [address] Jun, [facility] [address] [id number] [address] [place] [address], [place] [address] Jun, [facility] [address] [id number] [address] [place] [address], [place] [address] Jun, [facility] [address] [id number] [address] [place] [address], [place] [address] May, [facility] [address] [id number] [address] [place] [address], [place] [address] May, [facility] [address] [id number] [address] [place] [address], [place] [address] Apr, [facility] [address] [id number] [address] [place] [address], [place] [address] Apr, [facility] [address] [id number] [address] [place] [address], [place] [address] Apr, [facility] [address] [id number] [address] [place] [address], [place] [address] Apr, [facility] [address] [id number] [address] [place] [address], [place] [address] Apr, [facility] [address] [id number] [address] [place] [address], [place] [address] Apr, [facility] [address] [id number] [address] [place] [address], [place] [address] Apr, [facility] [address] [id number] [address] [place] [address], [place] [address] Apr, [facility] [address] [id number] [address] [place] [address], [place] [address] Apr, [facility] [address] [id number] [address] [place] [address], [place] [address] Apr, [facility] [address] [id number] [address] [place] [address], [place] [address] Mar, [facility] [address] [id number] [address] [place] [address], [place] [address] Mar, [facility] [address] [id number] [address] [place] [address], [place] [address] Mar, [facility] [address] [id number] [address] [place] [address], [place] [address] Mar, [facility] [address] [id number] [address] [place] [address], [place] [address] Mar, [facility] [address] [id number] [address] [place] [address], [place] [address] Mar, [facility] [address] [id number] [address] [place] [address], [place] [address] Feb, [facility] [address] [id number] [address] [place] [address], [place] [address] Feb, [facility] [address] [id number] [address] [place] [address], [place] [address] Feb, [facility] [address] [id number] [address] [place] [address], [place] [address] Feb, [facility] [address] [id number] [address] [place] [address], [place] [address] Jan, [facility] [address] [id number] [address] [place] [address], [place] [address] Jan, [facility] [address] [id number] [address] [place] [address], [place] [address] Jan, [facility] [address] [id number] [address] [place] [address], [place] [address] Jan, [facility] [address] [id number] [address] [place] [address], [place] [address] Oct, [facility] [address] [id number] [address] [place] [address], [place] [address] Oct, [facility] [address] [id number] [address] [place] [address], [place] [address] Sep, [facility] [address] [id number] [address] [place] [address], [place] [address] Sep, [facility] [address] [id number] [address] [place] [address], [place] [address] Sep, [facility] [address] [id number] [address] [place] [address], [place] [address] Sep, [facility] [address] [id number] [address] [place] [address], [place] [address] Aug, [facility] [address] [id number] [address] [place] [address], [place] [address] Aug, [facility] [address] [id number] [address] [place] [address], [place] [address] Aug, [facility] [address] [id number] [address] [place] [address], [place] [address] Aug, [facility] [address] [id number] [address] [place] [address], [place] [address] Jul, [facility] [address] [id number] [address] [place] [address], [place] [address] Jul, [facility] [address] [id number] [address] [place] [address], [place] [address] Jul, [facility] [address] [id number] [address] [place] [address], [place] [address] Jul, [facility] [address] [id number] [address] [place] [address], [place] [address] Jul, [facility] [address] [id number] [address] [place] [address], [place] [address] Jul, [facility] [address] [id number] [address] [place] [address], [place] [address] Jun, [facility] [address] [id number] [address] [place] [address], [place] [address] Jun, [facility] [address] [id number] [address] [place] [address], [place] [address] Jun, [facility] [address] [id number] [address] [place] [id number] Jun, [facility] [address] [id number] [address] [place] [address], [place] [address] Jun, [facility] [address] [id number] [address] [place] [address], [place] [address] Jun, [facility] [address] [id number] [address] [place] [address], [place] [address] May, [facility] [address] [id number] [address] [place] [address], [place] [address] May, [facility] [address] [id number] [address] [place] [address], [place] [address] May, [facility] [address] [id number] [address] [place] [address], [place] [address] May, [facility] [address] [id number] [address] [place] [address], [place] [address] May, [facility] [address] [id number] [address] [place] [address], [place] [address] May, [facility] [address] [id number] [address] [place] [address], [place] [address] May, [facility] [address] [id number] [address] [place] [address], [place] [address] May, [facility] [address] [id number] [address] [place] [address], [place] [address] Apr, [facility] [address] [id number] [address] [place] [address], [place] [address] Apr, [facility] [address] [id number] [address] [place] [address], [place] [address] Mar, [facility] [address] [id number] [address] [place] [address], [place] [address] Mar, [facility] [address] [id number] [address] [place] [address], [place] [address] Mar, [facility] [address] [id number] [address] [place] [address], [place] [address] Mar, [facility] [address] [id number] [address] [place] [address], [place] [address] Feb, [facility] [address] [id number] [address] [place] [address], [place] [address] Jan, [facility] [address] [id number] [address] [place] [address], [place] [address] December, [facility] [address] [id number] [address] [place] [address], [place] [address] December, [facility] [address] [id number] [address] [place] [address], [place] [address] December, [facility] [address] [id number] [address] [place] [address], [place] [address] Nov, [facility] [address] [id number] [address] [place] [address], [place] [address] Nov, [facility] [address] [id number] [address] [place] [address], [place] [address] Sep, [facility] [address] [id number] [address] [place] [address], [place] [address] 14 Sep, 2012 [facility] [address] [id number] [address] [place] [address], [place] [address] 14 Sep, [address] [facility] [address] [id number] [address] [place] [address], [place] [address] Sep, [facility] [address] [id number] [address] [place] [address], [place] [address] Aug, [facility] [address] [id number] [address] [place] [address], [place] [address] Aug, [facility] [address] [id number] [address] [place] [address], [place] [address] Aug, [facility] [address] [id number] [address] [place] [address], [place] [address] Aug, [facility] [address] [id number] [address] [place] [address], [place] [address] Jul, [facility] [address] [id number] [address] [place] [address], [place] [address] Jul, [facility] [address] [id number] [address] [place] [address], [place] [address] Jul, [facility] [address] [id number] [address] [place] [address], [place] [address] Jul, [facility] [address] [id number] [address] [place] [address], [place] [address] Jun, [facility] [address] [id number] [address] [place] [address], [place] [address] Jun, [facility] [address] [id number] [address] [place] [address], [place] [address] Jun, [facility] [address] [id number] [address] [place] [address], [place] [address] Jun, [facility] [address] [id number] [address] [place] [address], [place] [address] May, [facility] [address] [id number] [address] [place] [address], [place] [address] 18 May, 2012 [facility] [address] [id number] [address] [place] [address], [place] [address] May, [facility] [address] [id number] [address] [place] [id number] May, [facility] [address] [id number] [address] [place] [address], [place] [address] May, [facility] [address] [id number] [address] [place] [address], [place] [address] Apr, [facility] [address] [id number] [address] [place] [address], [place] [address] 08 Apr, 2012 [facility] [address] [id number] [address] [place] [address], [place] [address] 07 Apr, 2012 [facility] [address] [id number] [address] [place] [address], [place] [address] Apr, [facility] [address] [id number] [address] [place] [address], [place] [address] Mar, [facility] [address] [id number] [address] [place] [address], [place] [address] Mar, [facility] [address] [id number] [address] [place] [address], [place] [address] Feb, [facility] [address] [id number] [address] [place] [address], [place] [address] Feb, [facility] [address] [id number] [address] [place] [address], [place] [address] Feb, [facility] [address] [id number] [address] [place] [address], [place] [address] Jan, [facility] [address] [id number] [address] [place] [address], [place] [address] Jan, [facility] [address] [id number] [address] [place] [address], [place] [address] December, [facility] [address] [id number] [address] [place] [address], [place] [address] December, [facility] [address] [id number] [address] [place] [address], [place] [address] Nov, [facility] [address] [id number] [address] [place] [address], [place] [address] Oct, [facility] [address] [id number] [address] [place] [address], [place] [address] Oct, [facility] [address] [id number] [address] [place] [address], [place] [address] Sep, [facility] [address] [id number] [address] [place] [address], [place] [address] Sep, [facility] [address] [id number] [address] [place] [address], [place] [address] Aug, [facility] [address] [id number] [address] [place] [address], [place] [address] Aug, [facility] [address] [id number] [address] [place] [address], [place] [address] Jul, [facility] [address] [id number] [address] [place] [address], [place] [address] Jul, [facility] [address] [id number] [address] [place] [address], [place] [address] Jul, [facility] [address] [id number] [address] [place] [address], [place] [address] Jun, [facility] [address] [id number] [address] [place] [address], [place] [address] Jun, [facility] [address] [id number] [address] [place] [id number] May, [facility] [address] [id number] [address] [place] [address], [place] [address] May, [facility] [address] [id number] [address] [place] [id number] May, [facility] [address] [id number] [address] [place] [id number] Jul, [facility] [address] [id number] [address] [place] [id number] Jul, [facility] [address] [id number] [address] [place] [id number] Jun, [facility] [address] [id number] [address] [place] [id number] May, [facility] [address] [id number] [address] [place] [id number] May, [facility] [address] [id number] [address] [place] [id number] 14 Aug, 2009 [facility] [address] [facility] [id number] [address] [place] [id number] Jul, [facility] [address] [facility] [id number] [address] [place] [id number] Jun, [facility] [address] [facility] [id number] [address] [place] [id number] Jun, [facility] [address] [facility] [id number] [address] [place] [id number] Jun, [facility] [address] [facility] [id number] [address] [place] [id number] Jun, [facility] [address] [facility] [id number] [address] [place] [id number] Jun, [facility] [address] [facility] [id number] [address] [place] [id number] May, [facility] [address] [facility] [id number] [address] [place] [id number] Sep, IMMUNIZATIONS No Known Immunizations SOCIAL HISTORY Never Assessed REASON FOR VISIT Controlled 11/03 PLAN OF CARE VITAL SIGNS MEDICATIONS Medication Instructions Dosage Frequency Start Date End Date Duration S ron Tramadol HCl 50 mg Orally 2 times a day 2 tablets 12h 22 Jul, 2016 28 days Active RESULTS No Results PROCEDURES No Known procedures [...]
--- OUTSIDE RECORDS SUMMARY | 2020-01-28 14:32 | XMS REPORT ---
Author Author Katarina RODRIGUEZ Organization [facility] Address [address] [place] [address] Care Team Providers Care Manager Spanish Name Role Phone GEORGINA RODRIGUEZ Unavailable PROBLEMS Type Condition ICD9-CM Code [id number] Code Onset Dates Condition S tatus SNOMED Code Problem Osteoarthritis M19.90 Active 94623 5006 Problem Chronic obstructive pulmonary disease, unspecified COPD ty pe J44.9 Active 14388851 Problem Acquired hypothyroidism E03.9 Active 617663214 Problem Cigarette nicotine dependence without complication F17.210 Active 62794995 Problem Diabetes E11.9 Active 593297787 Problem High risk medication use Z79.899 Activ e 339117107 Problem Urinary incontinence, unspecified type R32 Active 461120042 Problem assisted (current) use of anticoagulants Z79.01 Active 481001915 Problem Morbid obesity, unspecified obesity type E66.01 Active 939574860 Problem Other chronic pain G89.29 Active 8 4355684 Problem History of cataract surgery Z98.49 Ac tive 298460186 Problem Type 2 diabetes mellitus wit h hyperglycemia, without long-term current use of insulin E11.65 Active 88467896 Problem Encounter for immunization Z23 Act essie 256914814 Problem Irregular heart beats I49.9 Active 423589173 Problem Other urinary incontinence N39.498 Act essie 831237042 Problem Essential hypertension I10 Active 01690441 Problem Chronic atrial fibrillation I48.2 Ac tive 691983709 ALLERGIES No Information ENCOUNTERS Encounter Location Date Diagnosis [facility] [address] [id number] [address] [place] [address] Mar, Chronic atrial fibrillation I48.2 [facility] [address] [id number] [address] [place] [address] Mar, Chronic atrial fibrillation I48.2 [facility] [address] [id number] [address] [place] [address] Mar, Osteoarthritis M19.90 [facility] [address] [id number] [address] [place] [address] Mar, Chronic atrial fibrillation I48.2 [facility] [address] [id number] [address] [place] [address] Mar, Type 2 diabetes mellitus wit h hyperglycemia, without long-term current use of insulin E11.65 ; Chronic atrial fibrillation I48.2 [address] Mor[address] E66.01 [facility] [address] [id number] [address] [place] [address] Feb, Osteoarthritis M19.90 [facility] [address] [id number] [address] [place] [address] Feb, Chronic atrial fibrillation I48.2 [facility] [address] [id number] [address] [place] [address] Feb, Hyperglycemia R73.9 ; Diabet es E11.9 ; Morbid obesity E66.01 ; Acquired hypothyroidism E03.9 ; Osteoarthritis M19.90 and High risk medication use Z79.899 [facility] [address] [id number] [address] [place] [address] Feb, Chronic atrial fibrillation I48.2 [facility] [address] [id number] [address] [place] [address] Jan, Osteoarthritis M19.90 [facility] [address] [id number] [address] [place] [address] Jan, Chronic atrial fibrillation I48.2 [facility] [address] [id number] [address] [place] [address] Jan, Chronic atrial fibrillation I48.2 [facility] [address] [id number] [address] [place] [address] Jan, Chronic atrial fibrillation I48.2 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 [address] [id number] [address] [place] [address] December, [facility] [address] [id number] [address] [place] [address] December, [facility] [address] [id number] [address] [place] [address] December, Osteoarthritis M19.90 [facility] [address] [id number] [address] [place] [address] Nov, [facility] [address] [id number] [address] [place] [address] Nov, Osteoarthritis M19.90 [facility] [address] [id number] [address] [place] [address] Oct, Osteoarthritis M19.90 [facility] [address] [id number] [address] [place] [address] Sep, Osteoarthritis M19.90 [facility] [address] [id number] [address] [place] [address] Sep, assisted (current) use of a nticoagulants Z79.01 ; BMI 45.0-49.9, adult Z68.42 ; Diabetes E11.9 ; Chronic atrial fibrillation I48.2 and Chronic obstructive pulmonary disease, unspecified COPD type J44.9 [facility] [address] [id number] [address] [place] [address] Sep, Diabetes E11.9 ; assisted ( current) use of anticoagulants Z79.01 ; Chronic atrial fibrillation I48.2 ; Chronic obstructive pulmonary disease, unspecified COPD type J44.9 and BMI 45.0-49.9, adult Z68.42 [facility] [address] [id number] [address] [place] [address] Aug, Osteoarthritis M19.90 [facility] [address] [id number] [address] [place] [address] Aug, 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 [address] [id number] [address] [place] [address] Jul, Osteoarthritis M19.90 [facility] [address] [id number] [address] [place] [address] Jun, Osteoarthritis M19.90 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 [address] [id number] [address] [place] [address] Jun, Chronic atrial fibrillation I48.2 and assisted (current) use of anticoagulants Z79.01 [facility] [address] [id number] [address] [place] [address] Jun, Osteoarthritis M19.90 [facility] [address] [id number] [address] [place] [address] May, Encounter for immunization Z 23 [facility] [address] [id number] [address] [place] [address] May, assisted (current) use of a nticoagulants Z79.01 [facility] [address] [id number] [address] [place] [address] May, Osteoarthritis M19.90 [facility] [address] [id number] [address] [place] [address] May, [facility] [address] [id number] [address] [place] [address] May, Diabetes E11.9 ; assisted ( current) use of anticoagulants Z79.01 ; Chronic atrial fibrillation I48.2 ; BMI 45.0-49.9, adult Z68.42 ; Osteoarthritis M19.90 ; Low back pain M54.5 and Other chronic pain G89.29 [facility] [address] [id number] [address] [place] [address] 20 Apr, 2018 Chronic atrial fibrillation I48.2 [facility] [address] [id number] [address] [place] [address] 13 Apr, 2018 terminal gauger (current) use of a nticoagulants Z79.01 [facility] [address] [id number] [address] [place] [address] 07 Apr, [address] [facility] [address] [id number] [address] [place] [address] Apr, assisted (current) use of a nticoagulants Z79.01 and Chronic atrial fibrillation I48.2 [facility] [address] [id number] [address] [place] [address] Mar, Osteoarthritis M19.90 [facility] [address] [id number] [address] [place] [address] Feb, Osteoarthritis M19.90 [facility] [address] [id number] [address] [place] [address] Jan, Osteoarthritis M19.90 [facility] [address] [id number] [address] [place] [address] December, [facility] [address] [id number] [address] [place] [address] December, Osteoarthritis M19.90 [facility] [address] [id number] [address] [place] [address] Nov, Diabetes E11.9 ; assisted ( current) use of anticoagulants Z79.01 ; Acquired hypothyroidism E03.9 ; Cigarette nicotine dependence without complication F17.210 ; Osteoarthritis M19.90 ; BMI 45.0-49.9, adult Z68.42 and Chronic atrial fibrillation I48.2 [facility] [address] [address] Nov, Osteoarthritis M19.90 [facility] [address] [place] [id number] [place] [address] Oct, Osteoarthritis M19.90 [facility] [address] [address] Oct, assisted (current) use of a nticoagulants Z79.01 [facility] [address] [place] [id number] [place] [address] Sep, Osteoarthritis M19.90 [facility] [address] [address] Sep, [facility] [address] [address] Aug, Osteoarthritis M19.90 [facility] [address] [place] [id number] [address] [place] [address] Jul, Osteoarthritis M19.90 [facility] [address] [address] Jul, Osteoarthritis M19.90 [facility] [address] [address] Jun, Diabetes E11.9 ; Encounter f or immunization Z23 ; assisted (current) use of anticoagulants Z79.01 ; Chronic atrial fibrillation I48.2 ; Osteoarthritis M19.90 ; Tobacco abuse Z72.0 and Bug bite, initial encounter W57.XXXA [facility] [address] [place] [id number] [address] [place] [address] May, Osteoarthritis M19.90 [facility] [address] [place] [place] [id number] [address] [place] [address] Apr, Osteoarthritis M19.90 [place] [address] [id number] [address] [place] [address] Mar, Chronic atrial fibrillation I48.2 [facility] [address] [id number] [address] [place] [address] Mar, [facility] [address] [id number] [address] [place] [address] Mar, Osteoarthritis M19.90 [facility] [address] [id number] [address] [place] [address] Mar, assisted (current) use of a nticoagulants Z79.01 and Chronic atrial fibrillation I48.2 [facility] [address] [id number] [address] [place] [address] Mar, Chronic atrial fibrillation I48.2 and terminal gauger (current) use of anticoagulants Z79.01 [place] [address] [id number] [address] [place] [address] Mar, terminal gauger (current) use of a nticoagulants Z79.01 [facility] [address] [id number] [address] [place] [address] Mar, assisted (current) use of a nticoagulants Z79.01 [facility] [address] [id number] [address] [place] [address] Mar, Osteoarthritis M19.90 [facility] [address] [id number] [address] [place] [address] Feb, Encounter for screening mamm ogram for malignant neoplasm of breast Z12.31 [facility] [address] [id number] [address] [place] [address] Feb, Osteoarthritis M19.90 [facility] [address] [id number] [address] [place] [phone] Jan, [facility] [address] [id number] [address] [place] [address] Jan, terminal gauger (current) use of a nticoagulants Z79.01 ; Diabetes E11.9 ; Osteoarthritis M19.90 and Breast cancer screening Z12.39 [facility] [address] [id number] [address] [place] [address] Jan, Osteoarthritis M19.90 [facility] [address] [id number] [address] [place] [address] Jan, Osteoarthritis M19.90 [facility] [address] [id number] [address] [place] [address] Jan, [facility] [address] [id number] [address] [place] [address] December, Osteoarthritis M19.90 [facility] [address] [id number] [address] [place] [address] December, Osteoarthritis M19.90 [facility] [address] [place] [id number] [place] [id number] Nov, [facility] [address] [id number] [address] [place] [address] Nov, [facility] [address] [id number] [address] [place] [address] Nov, [facility] [address] [id number] [address] [place] [address] Nov, Diabetes E11.9 [facility] [address] [id number] [address] [place] [address] Nov, [facility] [address] [id number] [address] [place] [address] Oct, Osteoarthritis M19.90 [facility] [address] [id number] [address] [place] [address] Oct, Osteoarthritis M19.90 ; terminal gauger (current) use of anticoagulants Z79.01 ; Diabetes E11.9 ; Cigarette nicotine dependence without complication F17.210 and Chronic atrial fibrillation I48.2 [facility] [address] [id number] [address] [place] [address] Aug, [facility] [address] [id number] [address] [place] [address] Aug, terminal gauger (current) use of a nticoagulants Z79.01 [facility] [address] [id number] [address] [place] [address] Aug, [facility] [address] [place] [id number] [facility] [place] [id number] Aug, [facility] [address] [id number] [address] [place] [address] Aug, [facility] [address] [place] [id number] [address] [place] [address] Aug, [facility] [id number] [facility] [id number] Aug, [facility] [address] [place] [id number] Aug Osteoarthritis M19.90 and Essential hypertension I10 [place] [address] [place] [id number] [address] [place] [address] Aug, Other urinary incontinence N 39.498 [place] [address] [id number] [address] [place] [address] Jul, Osteoarthritis M19.90 [place] [address] [address] Jun, Diabetes E11.9 ; Encounter f or immunization Z23 ; Osteoarthritis M19.90 ; assisted (current) use of anticoagulants Z79.01 ; Cigarette nicotine dependence without complication F17.210 ; Acquired hypothyroidism E03.9 ; Morbid obesity, unspecified obesity type E66.01 and Irregular heart beats I49.9 [facility] [address] [place] [id number] [address] [place] [address] Jun, Osteoarthritis M19.90 [place] [address] [place] [id number] [address] [place] [address] May, Osteoarthritis M19.90 [facility] [address] [id number] [address] [place] [address] May, Urinary incontinence, unspec ified type R32 [facility] [address] [id number] [address] [place] [address] May, [facility] [address] [id number] [address] [place] [address] Apr, Osteoarthritis M19.90 [facility] [address] [id number] [address] [place] [address] Apr, terminal gauger (current) use of a nticoagulants Z79.01 [facility] [address] [id number] [address] [place] [address] Apr, [facility] [address] [place] [id number] [address] [place] [address] Apr, Osteoarthritis M19.90 [facility] [address] [id number] [address] [place] [address] Mar, Diabetes E11.9 ; Hypothyroid ism, unspecified type E03.9 ; Osteoarthritis M19.90 ; High risk medication use Z79.899 ; Cigarette nicotine dependence without complication F17.210 and Morbid obesity, unspecified obesity type E66.01 [facility] [address] [id number] [address] [place] [address] Mar, Osteoarthritis M19.90 [facility] [address] [id number] [address] [place] [address] December, Osteoarthritis M19.90 [facility] [address] [id number] [address] [place] [address] December, [facility] [address] [id number] [address] [place] [address] Oct, [facility] [address] [id number] [address] [place] [address] Oct, [facility] [address] [place] [id number] [address] [place] [address] Aug, [facility] [address] [id number] [address] [place] [address] Jul, [facility] [address] [id number] [address] [place] [address] Jul, [facility] [address] [id number] [address] [place] [address] Jul, Diabetes E11.9 ; Encounter f or immunization Z23 ; Abnormal mammogram R92.8 ; Acquired hypothyroidism E03.9 ; High risk medication use Z79.899 ; Osteoarthritis M19.90 and Cigarette nicotine dependence without complication F17.210 [facility] [address] [id number] [address] [place] [address] Jul, [facility] [address] [id number] [address] [place] [address] Jun, Abnormal mammogram R92.8 [facility] [address] [id number] [address] [place] [address] Apr, [facility] [address] [id number] [address] [place] [address] Apr, [facility] [address] [id number] [address] [place] [phone] Mar, [facility] [address] [id number] [address] [place] [address] Mar, Current use of alf ant 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 V58.61 [facility] [address] [id number] [address] [place] [phone] Feb, [facility] [address] [id number] [address] [place] [phone] Jan, [facility] [address] [id number] [address] [place] [phone] December, [facility] [address] [id number] [address] [place] [phone] 14 Nov, 2014 [facility] [address] [id number] [address] [place] [address], [place] [address] Nov, [facility] [address] [id number] [address] [place] [address], [place] [address] Oct, [facility] [address] [id number] [address] [place] [address], [place] [address] Oct, [facility] [address] [id number] [address] [place] [address], [place] [address] Oct, [facility] [address] [id number] [address] [place] [address], [place] [address] Oct, [facility] [address] [id number] [address] [place] [address], [place] [address] Oct, [facility] [address] [id number] [address] [place] [address], [place] [address] Oct, [facility] [address] [id number] [address] [place] [address], [place] [address] Sep, [facility] [address] [id number] [address] [place] [address], [place] [address] Sep, [facility] [address] [id number] [address] [place] [address], [place] [address] Sep, [facility] [address] [id number] [address] [place] [address], [place] [address] Sep, [facility] [address] [id number] [address] [place] [address], [place] [address] Aug, [facility] [address] [id number] [address] [place] [address], [place] [address] Aug, [facility] [address] [id number] [address] [place] [address], [place] [address] Aug, [facility] [address] [id number] [address] [place] [address], [place] [address] Aug, [facility] [address] [id number] [address] [place] [address], [place] [address] 15 Aug, 2014 [facility] [address] [id number] [address] [place] [address], [place] [address] Aug, [facility] [address] [id number] [address] [place] [address], [place] [address] Jul, [facility] [address] [id number] [address] [place] [address], [place] [address] Jul, [facility] [address] [id number] [address] [place] [address], [place] [address] Jul, [facility] [address] [id number] [address] [place] [address], [place] [address] Jul, [facility] [address] [id number] [address] [place] [address], [place] [address] Jul, [facility] [address] [id number] [address] [place] [address], [place] [address] Jul, [facility] [address] [id number] [address] [place] [address], [place] [address] Jun, [facility] [address] [id number] [address] [place] [address], [place] [address] Jun, [facility] [address] [id number] [address] [place] [address], [place] [address] Jun, [facility] [address] [id number] [address] [place] [address], [place] [address] Jun, [facility] [address] [id number] [address] [place] [address], [place] [address] Jun, [facility] [address] [id number] [address] [place] [address], [place] [address] Jun, [facility] [address] [id number] [address] [place] [address], [place] [address] Jun, [facility] [address] [id number] [address] [place] [address], [place] [address] Jun, [facility] [address] [id number] [address] [place] [address], [place] [address] Jun, [facility] [address] [id number] [address] [place] [address], [place] [address] May, [facility] [address] [id number] [address] [place] [address], [place] [address] May, [facility] [address] [id number] [address] [place] [address], [place] [address] Apr, [facility] [address] [id number] [address] [place] [address], [place] [address] Apr, [facility] [address] [id number] [address] [place] [address], [place] [address] Apr, [facility] [address] [id number] [address] [place] [address], [place] [address] Apr, [facility] [address] [id number] [address] [place] [address], [place] [address] Apr, [facility] [address] [id number] [address] [place] [address], [place] [address] Apr, [facility] [address] [id number] [address] [place] [address], [place] [address] Apr, [facility] [address] [id number] [address] [place] [address], [place] [address] Apr, [facility] [address] [id number] [address] [place] [address], [place] [address] Apr, [facility] [address] [id number] [address] [place] [address], [place] [address] Apr, [facility] [address] [id number] [address] [place] [address], [place] [address] Mar, [facility] [address] [id number] [address] [place] [address], [place] [address] Mar, [facility] [address] [id number] [address] [place] [address], [place] [address] Mar, [facility] [address] [id number] [address] [place] [address], [place] [address] Mar, [facility] [address] [id number] [address] [place] [address], [place] [address] Mar, [facility] [address] [id number] [address] [place] [address], [place] [address] Mar, [facility] [address] [id number] [address] [place] [address], [place] [address] Feb, [facility] [address] [id number] [address] [place] [address], [place] [address] Feb, [facility] [address] [id number] [address] [place] [address], [place] [address] Feb, [facility] [address] [id number] [address] [place] [address], [place] [address] Feb, [facility] [address] [id number] [address] [place] [address], [place] [address] Jan, [facility] [address] [id number] [address] [place] [address], [place] [address] Jan, [facility] [address] [id number] [address] [place] [address], [place] [address] Jan, [facility] [address] [id number] [address] [place] [address], [place] [address] Jan, [facility] [address] [id number] [address] [place] [address], [place] [address] Oct, [facility] [address] [id number] [address] [place] [address], [place] [address] Oct, [facility] [address] [id number] [address] [place] [address], [place] [address] Sep, [facility] [address] [id number] [address] [place] [address], [place] [address] Sep, [facility] [address] [id number] [address] [place] [address], [place] [address] Sep, [facility] [address] [id number] [address] [place] [address], [place] [address] Sep, [facility] [address] [id number] [address] [place] [address], [place] [address] Aug, [facility] [address] [id number] [address] [place] [address], [place] [address] Aug, [facility] [address] [id number] [address] [place] [address], [place] [address] Aug, [facility] [address] [id number] [address] [place] [address], [place] [address] Aug, [facility] [address] [id number] [address] [place] [address], [place] [address] Jul, [facility] [address] [id number] [address] [place] [address], [place] [address] Jul, [facility] [address] [id number] [address] [place] [address], [place] [address] Jul, [facility] [address] [id number] [address] [place] [address], [place] [address] Jul, [facility] [address] [id number] [address] [place] [address], [place] [address] Jul, [facility] [address] [id number] [address] [place] [address], [place] [address] Jul, [facility] [address] [id number] [address] [place] [address], [place] [address] Jun, [facility] [address] [id number] [address] [place] [address], [place] [address] Jun, [facility] [address] [id number] [address] [place] [address], [place] [address] Jun, [facility] [address] [id number] [address] [place] [address] Jun, [facility] [address] [id number] [address] [place] [address], [place] [address] Jun, [facility] [address] [id number] [address] [place] [address], [place] [address] Jun, [facility] [address] [id number] [address] [place] [address], [place] [address] May, [facility] [address] [id number] [address] [place] [address], [place] [address] May, [facility] [address] [id number] [address] [place] [address], [place] [address] May, [facility] [address] [id number] [address] [place] [address], [place] [address] May, [facility] [address] [id number] [address] [place] [address], [place] [address] May, [facility] [address] [id number] [address] [place] [address], [place] [address] May, [facility] [address] [id number] [address] [place] [address], [place] [address] May, [facility] [address] [id number] [address] [place] [address], [place] [address] May, [facility] [address] [id number] [address] [place] [address], [place] [address] Apr, [facility] [address] [id number] [address] [place] [address], [place] [address] Apr, [facility] [address] [id number] [address] [place] [address], [place] [address] Mar, [facility] [address] [id number] [address] [place] [address], [place] [address] Mar, [facility] [address] [id number] [address] [place] [address], [place] [address] Mar, [facility] [address] [id number] [address] [place] [address], [place] [address] Mar, [facility] [address] [id number] [address] [place] [address], [place] [address] Feb, [facility] [address] [id number] [address] [place] [address], [place] [address] Jan, [facility] [address] [id number] [address] [place] [address], [place] [address] December, [facility] [address] [id number] [address] [place] [address], [place] [address] December, [facility] [address] [id number] [address] [place] [address], [place] [address] December, [facility] [address] [id number] [address] [place] [address], [place] [address] Nov, [facility] [address] [id number] [address] [place] [address], [place] [address] Nov, [facility] [address] [id number] [address] [place] [address], [place] [address] Sep, [facility] [address] [id number] [address] [place] [address], [place] [address] 14 Sep, 2012 [facility] [address] [id number] [address] [place] [address], [place] [address] 14 Sep, 2012 [facility] [address] [id number] [address] [place] [address], [place] [address] Sep, [facility] [address] [id number] [address] [place] [address], [place] [address] Aug, [facility] [address] [id number] [address] [place] [address], [place] [address] Aug, [facility] [address] [id number] [address] [place] [address], [place] [address] Aug, [facility] [address] [id number] [address] [place] [address], [place] [address] Aug, [facility] [address] [id number] [address] [place] [address], [place] [address] Jul, [facility] [address] [id number] [address] [place] [address], [place] [address] Jul, [facility] [address] [id number] [address] [place] [address], [place] [address] Jul, [facility] [address] [id number] [address] [place] [address], [place] [address] Jul, [facility] [address] [id number] [address] [place] [address], [place] [address] Jun, [facility] [address] [id number] [address] [place] [address], [place] [address] Jun, [facility] [address] [id number] [address] [place] [address], [place] [address] Jun, [facility] [address] [id number] [address] [place] [address], [place] [address] Jun, [facility] [address] [id number] [address] [place] [address], [place] [address] May, [facility] [address] [id number] [address] [place] [address], [place] [address] 18 May, 2012 [facility] [address] [id number] [address] [place] [address], [place] [address] May, [facility] [address] [id number] [address] [place] [address] May, [facility] [address] [id number] [address] [place] [address], [place] [address] May, [facility] [address] [id number] [address] [place] [address], [place] [address] Apr, [facility] [address] [id number] [address] [place] [address], [place] [address] 08 Apr, 2012 [facility] [address] [id number] [address] [place] [address], [place] [address] 07 Apr, 2012 [facility] [address] [id number] [address] [place] [address], [place] [address] Apr, [facility] [address] [id number] [address] [place] [address], [place] [address] Mar, [facility] [address] [id number] [address] [place] [address], [place] [address] Mar, [facility] [address] [id number] [address] [place] [address], [place] [address] Feb, [facility] [address] [id number] [address] [place] [address], [place] [address] Feb, [facility] [address] [id number] [address] [place] [address], [place] [address] Feb, [facility] [address] [id number] [address] [place] [address], [place] [address] Jan, [facility] [address] [id number] [address] [place] [address], [place] [address] Jan, [facility] [address] [id number] [address] [place] [address], [place] [address] December, [facility] [address] [id number] [address] [place] [address], [place] [address] December, [facility] [address] [id number] [address] [place] [address], [place] [address] Nov, [facility] [address] [id number] [address] [place] [address], [place] [address] Oct, [facility] [address] [id number] [address] [place] [address], [place] [address] Oct, [facility] [address] [id number] [address] [place] [address], [place] [address] Sep, [facility] [address] [id number] [address] [place] [address], [place] [address] Sep, [facility] [address] [id number] [address] [place] [address], [place] [address] Aug, [facility] [address] [id number] [address] [place] [address], [place] [address] Aug, [facility] [address] [id number] [address] [place] [address], [place] [address] Jul, [facility] [address] [id number] [address] [place] [address], [place] [address] Jul, [facility] [address] [id number] [address] [place] [address], [place] [address] Jul, [facility] [address] [id number] [address] [place] [address], [place] [address] Jun, [facility] [address] [id number] [address] [place] [address], [place] [address] Jun, [facility] [address] [id number] [address] [place] [address] May, [facility] [address] [id number] [address] [place] [address], [place] [address] May, [facility] [address] [id number] [address] [place] [address] May, [facility] [address] [id number] [address] [place] [address] Jul, [facility] [address] [id number] [address] [place] [address] Jul, [facility] [address] [id number] [address] [place] [address] Jun, [facility] [address] [id number] [address] [place] [address] May, [facility] [address] [id number] [address] [place] [address] May, [facility] [address] [id number] [address] [place] [address] Aug, [facility] [address] [facility] [id number] [address] [place] [address] Jul, [facility] [address] [facility] [id number] [address] [place] [address] Jun, [facility] [address] [facility] [id number] [address] [place] [address] Jun, [facility] [address] [facility] [id number] [address] [place] [address] Jun, [facility] [address] [facility] [id number] [address] [place] [address] Jun, [facility] [address] [facility] [id number] [address] [place] [address] Jun, [facility] [address] [facility] [id number] [address] [place] [address] May, [facility] [address] [facility] [id number] [address] [place] [address] Sep, IMMUNIZATIONS No Known Immunizations SOCIAL HISTORY [...]
--- OUTSIDE RECORDS SUMMARY | 2020-01-28 14:32 | XMS REPORT ---
Author Author Katarina RODRIGUEZ Organization [facility] Address [address] [place] [address] Care Team Providers Care Residential Direct Support Professional Name Role Phone GEORGINA RODRIGUEZ Unavailable PROBLEMS Type Condition ICD9-CM Code YRK44-EY Code Onset Dates Condition S tatus SNOMED Code Problem Osteoarthritis M19.90 Active 86124 5006 Problem Chronic obstructive pulmonary disease, unspecified COPD ty pe J44.9 Active 58603429 Problem Acquired hypothyroidism E03.9 Active 531716857 Problem Cigarette nicotine dependence without complication F17.210 Active 81743399 Problem Diabetes E11.9 Active 640618157 Problem High risk medication use Z79.899 Activ e 064202613 Problem Urinary incontinence, unspecified type R32 Active 965661523 Problem long-term (current) use of anticoagulants Z79.01 Active 772274164 Problem Morbid obesity, unspecified obesity type E66.01 Active 949804516 Problem Other chronic pain G89.29 Active 8 0840094 Problem History of cataract surgery Z98.49 Ac tive 973087885 Problem Type 2 diabetes mellitus wit h hyperglycemia, without long-term current use of insulin E11.65 Active 02375512 Problem Encounter for immunization Z23 Act essie 842650863 Problem Irregular heart beats I49.9 Active 691416530 Problem Other urinary incontinence N39.498 Act essie 501183464 Problem Essential hypertension I10 Active 51871782 Problem Chronic atrial fibrillation I48.2 Ac tive [id number] ALLERGIES No Information ENCOUNTERS Encounter Location Date Diagnosis [facility] [address] [facility] [id number] [address] [place] [phone] Apr, Osteoarthritis M19.90 [facility] [address] [facility] [id number] [address] [place] [phone] Mar, Chronic atrial fibrillation I48.2 [facility] [address] [facility] [id number] [address] [place] [phone] Mar, Chronic atrial fibrillation I48.2 [facility] [address] [id number] [address] [place] [phone] Mar, Osteoarthritis M19.90 [facility] [address] [facility] [id number] [address] [place] [phone] Mar, Chronic atrial fibrillation I48.2 [facility] [address] [facility] [id number] [address] [place] [phone] Mar, Type 2 diabetes mellitus wit h hyperglycemia, without long-term current use of insulin E11.65 ; Chronic atrial fibrillation I48.2 and Morbid obesity E66.01 [facility] [address] [id number] [address] [place] [phone] Feb, Osteoarthritis M19.90 [facility] [address] [facility] [id number] [address] [place] [phone] Feb, Chronic atrial fibrillation I48.2 [facility] [address] [facility] [id number] [address] [place] [phone] Feb, Hyperglycemia R73.9 ; Diabet es E11.9 ; Morbid obesity E66.01 ; Acquired hypothyroidism E03.9 ; Osteoarthritis M19.90 and High risk medication use Z79.899 [facility] [address] [facility] [id number] [address] [place] [phone] Feb, Chronic atrial fibrillation I48.2 [facility] [address] [id number] [address] [place] [phone] Jan, Osteoarthritis M19.90 [facility] [address] [facility] [id number] [address] [place] [phone] Jan, Chronic atrial fibrillation I48.2 [facility] [address] [facility] [id number] [address] [place] [phone] Jan, Chronic atrial fibrillation I48.2 [facility] [address] [facility] [id number] [address] [place] [phone] Jan, Chronic atrial fibrillation I48.2 [facility] [address] [id number] [address] [place] [phone] Jan, 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 [facility] [address] [id number] [address] [place] [phone] December, [facility] [address] [id number] [address] [place] [phone] December, [facility] [address] [id number] [address] [place] [phone] December, Osteoarthritis M19.90 [facility] [address] [id number] [address] [place] [phone] Nov, [facility] [address] [id number] [address] [place] [phone] Nov, Osteoarthritis M19.90 [facility] [address] [id number] [address] [place] [phone] Oct, Osteoarthritis M19.90 [facility] [address] [id number] [address] [place] [id number] Sep, Osteoarthritis M19.90 [facility] [address] [id number] [address] [place] [phone] Sep, long-term (current) use of a nticoagulants Z79.01 ; BMI 45.0-49.9, adult Z68.42 ; Diabetes E11.9 ; Chronic atrial fibrillation I48.2 and Chronic obstructive pulmonary disease, unspecified COPD type J44.9 [facility] [address] [id number] [address] [place] [phone] Sep, Diabetes E11.9 ; 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42 ; Diabetes E11.9 and Chronic atrial fibrillation I48.2 [facility] [address] [id number] [address] [place] [phone] Aug, [facility] [address] [id number] [address] [place] [phone] Jul, Osteoarthritis M19.90 [facility] [address] [facility] [id number] [address] [place] [phone] Jun, Osteoarthritis M19.90 [facility] [address] [id number] [address] [place] [phone] Jun, long-term (current) use of a nticoagulants Z79.01 [facility] [address] [facility] [id number] [address] [place] [phone] Jun, Chronic atrial fibrillation I48.2 and 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 [facility] [address] [id number] [address] [place] [phone] Jun, Osteoarthritis M19.90 [facility] [address] [id number] [address] [place] [phone] May, Encounter for immunization Z 23 [facility] [address] [facility] [id number] [address] [place] [phone] May, long-term (current) use of a nticoagulants Z79.01 [facility] [address] [facility] [id number] [address] [place] [phone] May, Osteoarthritis M19.90 [facility] [address] [facility] [id number] [address] [place] [phone] May, [facility] [address] [facility] [id number] [address] [place] [phone] May, Diabetes E11.9 ; 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 ; Chronic atrial fibrillation I48.2 ; BMI 45.0-49.9, adult Z68.42 ; Osteoarthritis M19.90 ; Low back pain M54.5 and Other chronic pain G89.29 [facility] [address] [id number] [address] [place] [phone] 20 Apr, 2018 Chronic atrial fibrillation I48.2 [facility] [address] [facility] [id number] [address] [place] [phone] 13 Apr, 2018 long-term (current) use of a nticoagulants Z79.01 [facility] [address] [facility] [id number] [address] [place] [phone] 07 Apr, 2018 Osteoarthritis M19.90 [facility] [address] [facility] [id number] [address] [place] [phone] 04 Apr, 2018 long-term (current) use of a nticoagulants Z79.01 and Chronic atrial fibrillation I48.2 [facility] [address] [facility] [id number] [address] [place] [phone] Mar, Osteoarthritis M19.90 [facility] [address] [facility] [id number] [address] [place] [phone] Feb, Osteoarthritis M19.90 [facility] [address] [facility] [id number] [address] [place] [phone] Jan, Osteoarthritis M19.90 [facility] [address] [facility] [id number] [address] [place] [phone] December, [facility] [address] [facility] [id number] [address] [place] [phone] December, Osteoarthritis M19.90 [facility] [address] [facility] [id number] [address] [place] [phone] Nov, Diabetes E11.9 ; long-term ( current) use of anticoagulants Z79.01 ; Acquired hypothyroidism E03.9 ; Cigarette nicotine dependence without complication F17.210 ; Osteoarthritis M19.90 ; BMI 45.0-49.9, adult Z68.42 and Chronic atrial fibrillation I48.2 [facility] [id number] [place] [phone] Nov, Osteoarthritis M19.90 [facility] [address] [place] [id number] [place] [phone] Oct, Osteoarthritis M19.90 [place] [address] [phone] Oct, long-term (current) use of a nticoagulants Z79.01 [facility] [address] [place] [id number] [address] [place] [phone] Sep, Osteoarthritis M19.90 [place] [address] [place] [id number] [address] [place] [phone] Sep, [facility] [address] [place] [id number] [address] [place] [phone] Aug, Osteoarthritis M19.90 [place] [address] [place] [id number] [place] [address] Jul, Osteoarthritis M19.90 [place] [address] [place] [id number] [address] [place] [phone] Jul, Osteoarthritis M19.90 [place] [address] [place] [id number] [place] [phone] Jun, Diabetes E11.9 ; Encounter f or immunization Z23 ; long-term (current) use of anticoagulants Z79.01 ; Chronic atrial fibrillation I48.2 ; Osteoarthritis M19.90 ; Tobacco abuse Z72.0 and Bug bite, initial encounter W57.XXXA [place] [address] [place] [id number] [address] [place] [phone] May, Osteoarthritis M19.90 [place] [address] [id number] [address] [place] [phone] Apr, Osteoarthritis M19.90 [facility] [address] [id number] [address] [place] [phone] Mar, Chronic atrial fibrillation I48.2 [facility] [address] [id number] [address] [place] [phone] Mar, [facility] [address] [id number] [address] [place] [phone] Mar, Osteoarthritis M19.90 [facility] [address] [id number] [address] [place] [phone] Mar, long-term (current) use of a nticoagulants Z79.01 and Chronic atrial fibrillation I48.2 [facility] [address] [id number] [address] [place] [phone] Mar, Chronic atrial fibrillation I48.2 and 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 [facility] [address] [id number] [address] [place] [phone] Mar, 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 [facility] [address] [id number] [address] [place] [phone] Mar, 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 [facility] [address] [id number] [address] [place] [phone] Mar, Osteoarthritis M19.90 [facility] [address] [id number] [address] [place] [phone] Feb, Encounter for screening mamm ogram for malignant neoplasm of breast Z12.31 [facility] [address] [id number] [address] [place] [phone] Feb, Osteoarthritis M19.90 [facility] [address] [id number] [address] [place] [phone] Jan, [facility] [address] [id number] [address] [place] [phone] Jan, 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 ; Diabetes E11.9 ; Osteoarthritis M19.90 and Breast cancer screening Z12.39 [facility] [address] [id number] [address] [place] [phone] Jan, Osteoarthritis M19.90 [facility] [address] [id number] [address] [place] [phone] Jan, Osteoarthritis M19.90 [facility] [address] [id number] [address] [place] [phone] Jan, [facility] [address] [facility] [id number] [address] [place] [phone] December, Osteoarthritis M19.90 [facility] [address] [id number] [address] [place] [phone] December, Osteoarthritis M19.90 [facility] [id number] [place] [id number] Nov, [facility] [address] [facility] [id number] [address] [place] [phone] Nov, [facility] [address] [facility] [id number] [address] [place] [phone] Nov, [facility] [address] [facility] [id number] [address] [place] [phone] Nov, Diabetes E11.9 [facility] [address] [id number] [address] [place] [phone] Nov, [facility] [address] [facility] [id number] [address] [place] [phone] Oct, Osteoarthritis M19.90 [facility] [address] [facility] [id number] [address] [place] [phone] Oct, Osteoarthritis M19.90 ; long-term (current) use of anticoagulants Z79.01 ; Diabetes E11.9 ; Cigarette nicotine dependence without complication F17.210 and Chronic atrial fibrillation I48.2 [place] [address] [phone] Aug, [facility] [address] [place] [id number] [place] [address] Aug, 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 [facility] [address] [place] [id number] [address] [place] [phone] Aug, [facility] [address] [place] [id number] [place] [address] [id number] Aug, [place] [address] [address] Aug, [place] [address] [phone] Aug, [facility] [address] [place] [id number] [place] [id number] Aug, [facility] [address] [place] [id number] Aug Osteoarthritis M19.90 and Essential hypertension I10 [place] [address] [place] [id number] [address] [place] [address] Aug, Other urinary incontinence N 39.498 [place] [address] [place] [id number] [address] [place] [phone] Jul, Osteoarthritis M19.90 [place] [address] [place] [id number] [address] [place] [address] Jun, Diabetes E11.9 ; Encounter f or immunization Z23 ; Osteoarthritis M19.90 ; long-term (current) use of anticoagulants Z79.01 ; Cigarette nicotine dependence without complication F17.210 ; Acquired hypothyroidism E03.9 ; Morbid obesity, unspecified obesity type E66.01 and Irregular heart beats I49.9 [place] [address] [place] [id number] [address] [place] [phone] Jun, Osteoarthritis M19.90 [facility] [address] [facility] [id number] [address] [place] [address] May, Osteoarthritis M19.90 [facility] [address] [place] [id number] [address] [place] [phone] May, Urinary incontinence, unspec ified type R32 [facility] [address] [place] [id number] [address] [place] [phone] May, [facility] [address] [address] Apr, Osteoarthritis M19.90 [facility] [address] [phone] Apr, long-term (current) use of a nticoagulants Z79.01 [facility] [address] [phone] Apr, [facility] [address] [address] Apr, Osteoarthritis M19.90 [facility] [address] [address] Mar, Diabetes E11.9 ; Hypothyroid ism, unspecified type E03.9 ; Osteoarthritis M19.90 ; High risk medication use Z79.899 ; Cigarette nicotine dependence without complication F17.210 and Morbid obesity, unspecified obesity type E66.01 [facility] [id number] [place] [phone] Mar, Osteoarthritis M19.90 [facility] [address] [facility] [id number] [address] [place] [phone] December, Osteoarthritis M19.90 [facility] [address] [place] [id number] [address] [place] [phone] December, [facility] [address] [place] [id number] [address] [place] [phone] Oct, [facility] [address] [facility] [id number] [address] [place] [phone] Oct, [facility] [address] [facility] [id number] [address] [place] [phone] Aug, [facility] [address] [facility] [id number] [address] [place] [phone] Jul, [facility] [address] [facility] [id number] [address] [place] [phone] Jul, [facility] [address] [facility] [id number] [address] [place] [phone] Jul, Diabetes E11.9 ; Encounter f or immunization Z23 ; Abnormal mammogram R92.8 ; Acquired hypothyroidism E03.9 ; High risk medication use Z79.899 ; Osteoarthritis M19.90 and Cigarette nicotine dependence without complication F17.210 [facility] [address] [facility] [id number] [address] [place] [phone] Jul, [facility] [address] [facility] [id number] [address] [place] [phone] Jun, Abnormal mammogram R92.8 [facility] [address] [place] [id number] [address] [place] [phone] Apr, [facility] [address] [facility] [id number] [address] [place] [phone] Apr, [facility] [address] [facility] [id number] [address] [place] [phone] Mar, [facility] [address] [facility] [id number] [address] [place] [phone] Mar, Current use of long-term ant 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 V58.61 [facility] [address] [facility] [id number] [address] [place] [phone] Feb, [facility] [address] [facility] [id number] [address] [place] [phone] Jan, [facility] [address] [facility] [id number] [address] [place] [phone] December, [facility] [address] [id number] [address] [place] [address], [place] [phone] Nov, [facility] [address] [id number] [address] [place] [address], [place] [address] Nov, [facility] [address] [id number] [address] [place] [address], [place] [address] Oct, [facility] [address] [id number] [address] [place] [address], [place] [phone] Oct, [facility] [address] [id number] [address] [place] [address], [place] [address] Oct, [facility] [address] [id number] [address] [place] [address], [place] [address] Oct, [facility] [address] [id number] [address] [place] [address], [place] [address] Oct, [facility] [address] [id number] [address] [place] [address], [place] [address] Oct, [facility] [address] [id number] [address] [place] [address], [place] [address] Sep, [facility] [address] [id number] [address] [place] [address], [place] [address] Sep, [facility] [address] [id number] [address] [place] [address], [place] [address] Sep, [facility] [address] [id number] [address] [place] [address], [place] [address] Sep, [facility] [address] [id number] [address] [place] [address], [place] [address] Aug, [facility] [address] [id number] [address] [place] [address], [place] [address] Aug, [facility] [address] [id number] [address] [place] [id number] Aug, [facility] [address] [id number] [address] [place] [address], [place] [address] Aug, [facility] [address] [id number] [address] [place] [address], [place] [address] Aug, [facility] [address] [id number] [address] [place] [address], [place] [address] Aug, [facility] [address] [id number] [address] [place] [address], [place] [address] Jul, [facility] [address] [id number] [address] [place] [address], [place] [address] Jul, [facility] [address] [id number] [address] [place] [address], [place] [address] Jul, [facility] [address] [id number] [address] [place] [address], [place] [address] Jul, [facility] [address] [id number] [address] [place] [address], [place] [address] Jul, [facility] [address] [id number] [address] [place] [address], [place] [address] Jul, [facility] [address] [id number] [address] [place] [address], [place] [address] Jun, [facility] [address] [id number] [address] [place] [address], [place] [address] Jun, [facility] [address] [id number] [address] [place] [address], [place] [address] Jun, [facility] [address] [id number] [address] [place] [address], [place] [address] Jun, [facility] [address] [id number] [address] [place] [address], [place] [address] Jun, [facility] [address] [id number] [address] [place] [address], [place] [address] Jun, [facility] [address] [id number] [place] [address] Jun, [facility] [address] [id number] [address] [place] [address], [place] [address] Jun, [facility] [address] [id number] [address] [place] [address], [place] [address] Jun, [facility] [address] [id number] [address] [place] [address], [place] [address] May, [facility] [address] [id number] [address] [place] [address], [place] [address] May, [facility] [address] [id number] [address] [place] [address], [place] [address] Apr, [facility] [address] [id number] [address] [place] [address], [place] [address] Apr, [facility] [address] [id number] [address] [place] [address], [place] [address] Apr, [facility] [address] [id number] [address] [place] [address], [place] [address] Apr, [facility] [address] [id number] [address] [place] [address], [place] [address] Apr, [facility] [address] [id number] [address] [place] [address], [place] [address] Apr, [facility] [address] [id number] [address] [place] [address], [place] [address] Apr, [facility] [address] [id number] [address] [place] [address], [place] [address] Apr, [facility] [address] [id number] [address] [place] [address], [place] [address] Apr, [facility] [address] [id number] [address] [place] [address], [place] [address] Apr, [facility] [address] [id number] [address] [place] [address], [place] [address] Mar, [facility] [address] [id number] [address] [place] [address], [place] [address] Mar, [facility] [address] [id number] [address] [place] [address], [place] [address] Mar, [facility] [address] [id number] [address] [place] [address], [place] [address] Mar, [facility] [address] [id number] [address] [place] [address], [place] [address] Mar, [facility] [address] [id number] [address] [place] [address], [place] [address] Mar, [facility] [address] [id number] [address] [place] [address], [place] [address] Feb, [facility] [address] [id number] [address] [place] [address], [place] [address] Feb, [facility] [address] [id number] [address] [place] [address], [place] [address] Feb, [facility] [address] [id number] [address] [place] [address], [place] [address] Feb, [facility] [address] [id number] [address] [place] [address], [place] [address] Jan, [facility] [address] [id number] [address] [place] [address], [place] [address] Jan, [facility] [address] [id number] [address] [place] [address], [place] [address] Jan, [facility] [address] [id number] [address] [place] [address], [place] [address] Jan, [facility] [address] [id number] [address] [place] [address], [place] [address] Oct, [facility] [address] [id number] [address] [place] [address], [place] [address] Oct, [facility] [address] [id number] [address] [place] [address], [place] [address] Sep, [facility] [address] [id number] [address] [place] [address], [place] [address] Sep, [facility] [address] [id number] [address] [place] [address], [place] [address] Sep, [facility] [address] [id number] [address] [place] [address], [place] [address] Sep, [facility] [address] [id number] [address] [place] [address], [place] [address] Aug, [facility] [address] [id number] [address] [place] [address], [place] [address] Aug, [facility] [address] [id number] [address] [place] [address], [place] [address] Aug, [facility] [address] [id number] [address] [place] [address], [place] [address] Aug, [facility] [address] [id number] [address] [place] [address], [place] [address] Jul, [facility] [address] [id number] [address] [place] [address], [place] [address] Jul, [facility] [address] [id number] [address] [place] [address], [place] [address] Jul, [facility] [address] [id number] [address] [place] [address], [place] [address] Jul, [facility] [address] [id number] [address] [place] [address], [place] [address] Jul, [facility] [address] [id number] [address] [place] [address], [place] [address] Jul, [facility] [address] [id number] [address] [place] [address], [place] [address] Jun, [facility] [address] [id number] [address] [place] [address], [place] [address] Jun, [facility] [address] [id number] [address] [place] [address], [place] [address] Jun, [facility] [address] [id number] [address] [place] [address], [place] [address] Jun, [facility] [address] [id number] [address] [place] [address], [place] [address] Jun, [facility] [address] [id number] [address] [place] [address], [place] [address] Jun, [facility] [address] [id number] [address] [place] [address], [place] [address] May, [facility] [address] [id number] [address] [place] [address], [place] [address] May, [facility] [address] [id number] [address] [place] [address], [place] [address] May, [facility] [address] [id number] [address] [place] [address], [place] [address] May, [facility] [address] [id number] [address] [place] [address], [place] [address] May, [facility] [address] [id number] [address] [place] [address], [place] [address] May, [facility] [address] [id number] [address] [place] [address], [place] [address] May, [facility] [address] [id number] [address] [place] [address], [place] [address] May, [facility] [address] [id number] [address] [place] [address], [place] [address] Apr, [facility] [address] [id number] [address] [place] [address], [place] [address] Apr, [facility] [address] [id number] [address] [place] [address], [place] [address] Mar, [facility] [address] [id number] [address] [place] [address], [place] [address] Mar, [facility] [address] [id number] [address] [place] [address], [place] [address] Mar, [facility] [address] [id number] [address] [place] [address], [place] [address] Mar, [facility] [address] [id number] [address] [place] [address], [place] [address] Feb, [facility] [address] [id number] [address] [place] [address], [place] [address] Jan, [facility] [address] [id number] [address] [place] [address], [place] [address] December, [facility] [address] [id number] [address] [place] [address], [place] [address] December, [facility] [address] [id number] [address] [place] [address], [place] [address] December, [facility] [address] [id number] [address] [place] [address], [place] [address] Nov, [facility] [address] [id number] [address] [place] [address], [place] [address] Nov, [facility] [address] [id number] [address] [place] [address], [place] [address] Sep, [facility] [address] [id number] [address] [place] [address], [place] [address] Sep, [facility] [address] [id number] [address] [place] [address], [place] [address] Sep, [facility] [address] [id number] [address] [place] [address], [place] [address] Sep, [facility] [address] [id number] [address] [place] [address], [place] [address] Aug, [facility] [address] [id number] [address] [place] [address], [place] [address] Aug, [facility] [address] [id number] [address] [place] [address] 08 Aug, 2012 [facility] [address] [id number] [address] [place] [address], [place] [address] Aug, [facility] [address] [id number] [address] [place] [address], [place] [address] Jul, [facility] [address] [id number] [address] [place] [address], [place] [address] Jul, [facility] [address] [id number] [address] [place] [address], [place] [address] Jul, [facility] [address] [id number] [address] [place] [address], [place] [address] Jul, [facility] [address] [id number] [address] [place] [address], [place] [address] Jun, [facility] [address] [id number] [address] [place] [address], [place] [address] Jun, [facility] [address] [id number] [address] [place] [address], [place] [address] Jun, [facility] [address] [id number] [address] [place] [address], [place] [address] Jun, [facility] [address] [id number] [address] [place] [address], [place] [address] May, [facility] [address] [id number] [address] [place] [address], [place] [address] May, [facility] [address] [id number] [address] [place] [address] May, [facility] [address] [id number] [address] [place] [address], [place] [address] May, [facility] [address] [id number] [address] [place] [address], [place] [address] 08 May, 2012 [facility] [address] [id number] [address] [place] [address], [place] [address] Apr, [facility] [address] [id number] [address] [place] [address], [place] [address] 08 Apr, 2012 [facility] [address] [id number] [address] [place] [address], [place] [address] 07 Apr, 2012 [facility] [address] [id number] [address] [place] [address], [place] [address] 06 Apr, 2012 [facility] [address] [id number] [address] [place] [address], [place] [address] Mar, [facility] [address] [id number] [address] [place] [address], [place] [address] Mar, [facility] [address] [id number] [address] [place] [address], [place] [address] Feb, [facility] [address] [id number] [address] [place] [address], [place] [address] Feb, [facility] [address] [id number] [address] [place] [address], [place] [address] Feb, [facility] [address] [id number] [address] [place] [address], [place] [address] Jan, [facility] [address] [id number] [address] [place] [address], [place] [address] Jan, [facility] [address] [id number] [address] [place] [address], [place] [address] December, [facility] [address] [id number] [address] [place] [address], [place] [address] December, [facility] [address] [id number] [address] [place] [address], [place] [address] Nov, [facility] [address] [id number] [address] [place] [address], [place] [address] Oct, [facility] [address] [id number] [address] [place] [address], [place] [address] Oct, [facility] [address] [id number] [address] [place] [address], [place] [address] Sep, [facility] [address] [id number] [address] [place] [address], [place] [address] Sep, [facility] [address] [id number] [address] [place] [address], [place] [address] Aug, [facility] [address] [id number] [address] [place] [address], [place] [address] Aug, [facility] [address] [id number] [address] [place] [address], [place] [address] Jul, [facility] [address] [id number] [address] [place] [address], [place] [address] Jul, [facility] [address] [id number] [address] [place] [address], [place] [address] Jul, [facility] [address] [id number] [address] [place] [address], [place] [address] Jun, [facility] [address] [id number] [address] [place] [address], [place] [address] Jun, [facility] [address] [id number] [address] [place] [address], [place] [address] May, [facility] [address] [id number] [address] [place] [address], [place] [address] May, [facility] [address] [id number] [address] [place] [address] May, [facility] [address] [id number] [address] [place] [address] Jul, [facility] [address] [id number] [address] [place] [address], [place] [address] Jul, [facility] [address] [id number] [address] [place] [id number] 15 Jun, 2010 [facility] [address] [id number] [address] [place] [address], [place] [address] May, [facility] [address] [id number] [address] [place] [address] May, [facility] [address] [id number] [address] [place] [address] Aug, [facility] [address] [id number] [address] [place] [address] Jul, [facility] [address] [facility] [id number] [address] [place] [address] Jun, [facility] [address] [facility] [id number] [address] [place] [address] Jun, [facility] [address] [facility] [id number] [address] [place] [address] Jun, [facility] [address] [facility] [id number] [address] [place] [id number] Jun, [facility] [address] [facility] [id number] [address] [place] [id number] Jun, [facility] [address] [facility] [id number] [address] [place] [id number] May, [facility] [address] [facility] [id number] [address] [place] [id number] Sep, IMMUNIZATIONS No Known Immunizations SOCIAL HISTORY [...]
--- OUTSIDE RECORDS SUMMARY | 2020-01-28 14:32 | XMS REPORT ---
Author Author Katarina RODRIGUEZ Organization [facility] Address [address] [place] [address] Care Team Providers Care Welfare Case Worker Name Role Phone GEORGINA RODRIGUEZ Unavailable PROBLEMS Type Condition ICD9-CM Code XOI49-SA Code Onset Dates Condition S tatus SNOMED Code Problem Osteoarthritis M19.90 Active 98441 5006 Problem Chronic obstructive pulmonary disease, unspecified COPD ty pe J44.9 Active 97218361 Problem Acquired hypothyroidism E03.9 Active 374684853 Problem Cigarette nicotine dependence without complication F17.210 Active 10363180 Problem Diabetes E11.9 Active 903440268 Problem High risk medication use Z79.899 Activ e 731784195 Problem Urinary incontinence, unspecified type R32 Active 933116878 Problem shelter (current) use of anticoagulants Z79.01 Active 809209399 Problem Morbid obesity, unspecified obesity type E66.01 Active 475018443 Problem Other chronic pain G89.29 Active 8 5574716 Problem History of cataract surgery Z98.49 Ac tive 699749706 Problem Type 2 diabetes mellitus wit h hyperglycemia, without long-term current use of insulin E11.65 Active 61500939 Problem Encounter for immunization Z23 Act essie 568094232 Problem Irregular heart beats I49.9 Active 509215191 Problem Other urinary incontinence N39.498 Act essie 292249428 Problem Essential hypertension I10 Active 70484349 Problem Chronic atrial fibrillation I48.2 Ac tive [id number] ALLERGIES No Information ENCOUNTERS Encounter Location Date Diagnosis [facility] [address] [facility] [id number] [address] [place] [address] Mar, Chronic atrial fibrillation I48.2 [facility] [address] [facility] [id number] [address] [place] [address] Mar, Osteoarthritis M19.90 [facility] [address] [facility] [id number] [address] [place] [phone] Mar, Chronic atrial fibrillation I48.2 [facility] [address] [id number] [address] [place] [address] Mar, Type 2 diabetes mellitus wit h hyperglycemia, without long-term current use of insulin E11.65 ; Chronic atrial fibrillation I48.2 and Morbid obesity E66.01 [place] [address] [facility] [id number] [address] [place] [address] Feb, Osteoarthritis M19.90 [place] [address] [facility] [id number] [address] [place] [phone] Feb, Chronic atrial fibrillation I48.2 [place] [address] [facility] [id number] [address] [place] [phone] Feb, Hyperglycemia R73.9 ; Diabet es E11.9 ; Morbid obesity E66.01 ; Acquired hypothyroidism E03.9 ; Osteoarthritis M19.90 and High risk medication use Z79.899 [place] [address] [facility] [id number] [address] [place] [phone] Feb, Chronic atrial fibrillation I48.2 [place] [address] [facility] [id number] [address] [place] [phone] Jan, Osteoarthritis M19.90 [facility] [address] [facility] [id number] [address] [place] [phone] Jan, Chronic atrial fibrillation I48.2 [place] [address] [facility] [id number] [address] [place] [phone] Jan, Chronic atrial fibrillation I48.2 [place] [address] [facility] [id number] [address] [place] [phone] Jan, Chronic atrial fibrillation I48.2 [place] [address] [facility] [id number] [address] [place] [phone] Jan, shelter (current) use of a nticoagulants Z79.01 [facility] [address] [facility] [id number] [address] [place] [phone] December, [facility] [address] [id number] [address] [place] [address] December, [facility] [address] [id number] [address] [place] [phone] December, Osteoarthritis M19.90 [facility] [address] [id number] [address] [place] [phone] Nov, [facility] [address] [id number] [address] [place] [address] Nov, Osteoarthritis M19.90 [facility] [address] [id number] [address] [place] [phone] Oct, Osteoarthritis M19.90 [facility] [address] [id number] [address] [place] [address] Sep, Osteoarthritis M19.90 [facility] [address] [id number] [address] [place] [phone] Sep, shelter (current) use of a nticoagulants Z79.01 ; BMI 45.0-49.9, adult Z68.42 ; Diabetes E11.9 ; Chronic atrial fibrillation I48.2 and Chronic obstructive pulmonary disease, unspecified COPD type J44.9 [facility] [address] [facility] [id number] [address] [place] [phone] Sep, Diabetes E11.9 ; 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 Z79.01 ; Chronic atrial fibrillation I48.2 ; Chronic obstructive pulmonary disease, unspecified COPD type J44.9 and BMI 45.0-49.9, adult Z68.42 [facility] [address] [id number] [address] [place] [phone] Aug, Osteoarthritis M19.90 [facility] [address] [facility] [id number] [address] [place] [phone] Aug, [facility] [address] [facility] [id number] [address] [place] [phone] Aug, 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) use of a nticoagulants Z79.01 ; BMI 45.0-49.9, adult Z68.42 ; Diabetes E11.9 and Chronic atrial fibrillation I48.2 [facility] [address] [id number] [address] [place] [phone] Aug, [facility] [address] [id number] [address] [place] [address] Jul, Osteoarthritis M19.90 [facility] [address] [id number] [address] [place] [address] Jun, Osteoarthritis M19.90 [facility] [address] [id number] [address] [place] [address] Jun, shelter (current) use of a nticoagulants Z79.01 [facility] [address] [id number] [address] [place] [phone] Jun, Chronic atrial fibrillation I48.2 and 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.01 [facility] [address] [id number] [address] [place] [phone] Jun, Osteoarthritis M19.90 [facility] [address] [id number] [address] [place] [phone] May, Encounter for immunization Z 23 [facility] [address] [id number] [address] [place] [phone] May, 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) use of a nticoagulants Z79.01 [facility] [address] [id number] [address] [place] [phone] May, Osteoarthritis M19.90 [facility] [address] [id number] [address] [place] [phone] May, [facility] [address] [id number] [address] [place] [phone] May, Diabetes E11.9 ; 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 Z79.01 ; Chronic atrial fibrillation I48.2 ; BMI 45.0-49.9, adult Z68.42 ; Osteoarthritis M19.90 ; Low back pain M54.5 and Other chronic pain G89.29 [facility] [address] [facility] [id number] [address] [place] [phone] 20 Apr, 2018 Chronic atrial fibrillation I48.2 [facility] [address] [facility] [id number] [address] [place] [phone] 13 Apr, 2018 shelter (current) use of a nticoagulants Z79.01 [facility] [address] [facility] [id number] [address] [place] [phone] 07 Apr, 2018 Osteoarthritis M19.90 [place] [address] [facility] [id number] [address] [place] [phone] 04 Apr, 2018 shelter (current) use of a nticoagulants Z79.01 and Chronic atrial fibrillation I48.2 [place] [address] [facility] [id number] [address] [place] [phone] Mar, Osteoarthritis M19.90 [facility] [address] [facility] [id number] [address] [place] [address] Feb, Osteoarthritis M19.90 [place] [address] [facility] [id number] [address] [place] [phone] Jan, Osteoarthritis M19.90 [place] [address] [facility] [id number] [address] [place] [phone] December, [place] [address] [facility] [id number] [address] [place] [address] December, Osteoarthritis M19.90 [facility] [address] [facility] [id number] [address] [place] [address] Nov, Diabetes E11.9 ; 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 Z79.01 ; Acquired hypothyroidism E03.9 ; Cigarette nicotine dependence without complication F17.210 ; Osteoarthritis M19.90 ; BMI 45.0-49.9, adult Z68.42 and Chronic atrial fibrillation I48.2 [place] [address] [facility] [id number] [address] [place] [address] Nov, Osteoarthritis M19.90 [facility] [address] [facility] [id number] [address] [place] [address] Oct, Osteoarthritis M19.90 [facility] [address] [facility] [id number] [address] [place] [address] Oct, shelter (current) use of a nticoagulants Z79.01 [facility] [address] [facility] [id number] [address] [place] [address] Sep, Osteoarthritis M19.90 [facility] [address] [facility] [id number] [address] [place] [phone] Sep, [facility] [address] [facility] [id number] [address] [place] [phone] Aug, Osteoarthritis M19.90 [facility] [address] [facility] [id number] [address] [place] [address] Jul, Osteoarthritis M19.90 [facility] [address] [facility] [id number] [address] [place] [phone] Jul, Osteoarthritis M19.90 [facility] [address] [facility] [id number] [address] [place] [phone] Jun, Diabetes E11.9 ; Encounter f or immunization Z23 ; 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.01 ; Chronic atrial fibrillation I48.2 ; Osteoarthritis M19.90 ; Tobacco abuse Z72.0 and Bug bite, initial encounter W57.XXXA [facility] [address] [facility] [id number] [address] [place] [address] May, Osteoarthritis M19.90 [facility] [address] [facility] [id number] [address] [place] [phone] Apr, Osteoarthritis M19.90 [facility] [address] [place] [id number] [address] [place] [phone] Mar, Chronic atrial fibrillation I48.2 [facility] [address] [id number] [address] [place] [phone] Mar, [facility] [address] [id number] [address] [place] [phone] Mar, Osteoarthritis M19.90 [facility] [address] [facility] [id number] [address] [place] [phone] Mar, 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) use of a nticoagulants Z79.01 and Chronic atrial fibrillation I48.2 [facility] [address] [id number] [address] [place] [phone] Mar, Chronic atrial fibrillation I48.2 and 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.01 [facility] [address] [id number] [address] [place] [phone] Mar, shelter (current) use of a nticoagulants Z79.01 [place] [address] [id number] [address] [place] [phone] Mar, 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) use of a nticoagulants Z79.01 [place] [address] [id number] [address] [place] [address] Mar, Osteoarthritis M19.90 [place] [address] [facility] [id number] [address] [place] [phone] Feb, Encounter for screening mamm ogram for malignant neoplasm of breast Z12.31 [facility] [address] [id number] [address] [place] [phone] Feb, Osteoarthritis M19.90 [facility] [address] [id number] [address] [place] [phone] Jan, [facility] [address] [id number] [address] [place] [phone] Jan, 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) use of a nticoagulants Z79.01 ; Diabetes E11.9 ; Osteoarthritis M19.90 and Breast cancer screening Z12.39 [facility] [address] [id number] [address] [place] [address] Jan, Osteoarthritis M19.90 [facility] [address] [id number] [address] [place] [phone] Jan, Osteoarthritis M19.90 [facility] [address] [id number] [address] [place] [phone] Jan, [facility] [address] [facility] [id number] [address] [place] [address] December, Osteoarthritis M19.90 [facility] [address] [id number] [address] [place] [phone] December, Osteoarthritis M19.90 [facility] [id number] [place] [id number] Nov, [facility] [address] [facility] [id number] [address] [place] [phone] Nov, [facility] [address] [id number] [address] [place] [phone] Nov, [facility] [address] [facility] [id number] [address] [place] [address] Nov, Diabetes E11.9 [facility] [address] [id number] [address] [place] [phone] Nov, [facility] [address] [facility] [id number] [address] [place] [phone] Oct, Osteoarthritis M19.90 [facility] [address] [facility] [id number] [address] [place] [address] Oct, Osteoarthritis M19.90 ; shelter (current) use of anticoagulants Z79.01 ; Diabetes E11.9 ; Cigarette nicotine dependence without complication F17.210 and Chronic atrial fibrillation I48.2 [facility] [address] [id number] [address] [place] [phone] Aug, [facility] [address] [facility] [id number] [address] [place] [phone] Aug, 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) use of a nticoagulants Z79.01 [place] [address] [facility] [id number] [address] [place] [phone] Aug, [facility] [address] [place] [id number] [place] [id number] Aug, [place] [address] [place] [id number] [address] [place] [phone] Aug, [place] [address] [place] [id number] [address] [place] [phone] Aug, [facility] [address] [id number] [id number] Aug, [facility] [address] [place] [id number] Aug Osteoarthritis M19.90 and Essential hypertension I10 [place] [address] [place] [id number] [address] [place] [address] Aug, Other urinary incontinence N 39.498 [place] [address] [place] [id number] [address] [place] [phone] Jul, Osteoarthritis M19.90 [place] [address] [place] [id number] [address] [place] [phone] Jun, Diabetes E11.9 ; Encounter f or immunization Z23 ; Osteoarthritis M19.90 ; shelter (current) use of anticoagulants Z79.01 ; Cigarette nicotine dependence without complication F17.210 ; Acquired hypothyroidism E03.9 ; Morbid obesity, unspecified obesity type E66.01 and Irregular heart beats I49.9 [place] [address] [place] [id number] [address] [place] [address] Jun, Osteoarthritis M19.90 [place] [address] [place] [id number] [address] [place] [address] May, Osteoarthritis M19.90 [place] [address] [place] [id number] [address] [place] [phone] May, Urinary incontinence, unspec ified type R32 [facility] [address] [id number] [address] [place] [phone] May, [facility] [address] [id number] [address] [place] [phone] Apr, Osteoarthritis M19.90 [facility] [address] [facility] [id number] [address] [place] [phone] Apr, 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) use of a nticoagulants Z79.01 [facility] [address] [id number] [address] [place] [phone] Apr, [facility] [address] [facility] [id number] [address] [place] [phone] Apr, Osteoarthritis M19.90 [facility] [address] [facility] [id number] [address] [place] [phone] Mar, Diabetes E11.9 ; Hypothyroid ism, unspecified type E03.9 ; Osteoarthritis M19.90 ; High risk medication use Z79.899 ; Cigarette nicotine dependence without complication F17.210 and Morbid obesity, unspecified obesity type E66.01 [facility] [address] [facility] [id number] [address] [place] [phone] Mar, Osteoarthritis M19.90 [facility] [address] [facility] [id number] [address] [place] [phone] December, Osteoarthritis M19.90 [facility] [address] [facility] [id number] [address] [place] [phone] December, [facility] [address] [facility] [id number] [address] [place] [phone] Oct, [facility] [address] [facility] [id number] [address] [place] [phone] Oct, [facility] [address] [facility] [id number] [address] [place] [phone] Aug, [facility] [address] [facility] [id number] [address] [place] [phone] Jul, [facility] [address] [id number] [address] [place] [phone] Jul, [facility] [address] [id number] [address] [place] [phone] Jul, Diabetes E11.9 ; Encounter f or immunization Z23 ; Abnormal mammogram R92.8 ; Acquired hypothyroidism E03.9 ; High risk medication use Z79.899 ; Osteoarthritis M19.90 and Cigarette nicotine dependence without complication F17.210 [facility] [address] [id number] [address] [place] [phone] Jul, [facility] [address] [id number] [address] [place] [phone] Jun, Abnormal mammogram R92.8 [facility] [address] [id number] [address] [place] [phone] Apr, [facility] [address] [id number] [address] [place] [phone] Apr, [facility] [address] [id number] [address] [place] [phone] Mar, [facility] [address] [id number] [address] [place] [phone] Mar, 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 V58.61 [facility] [address] [id number] [address] [place] [phone] Feb, [facility] [address] [id number] [address] [place] [phone] Jan, [facility] [address] [id number] [address] [place] [phone] December, [facility] [address] [id number] [address] [place] [phone] Nov, [facility] [address] [facility] [id number] [address] [place] [phone] Nov, [facility] [address] [id number] [address] [place] [address], [place] [address] Oct, [facility] [address] [id number] [address] [place] [address], [place] [address] Oct, [facility] [address] [id number] [address] [place] [address], [place] [address] Oct, [facility] [address] [id number] [address] [place] [address], [place] [address] Oct, [facility] [address] [id number] [address] [place] [address], [place] [address] Oct, [facility] [address] [id number] [address] [place] [address], [place] [address] Oct, [facility] [address] [id number] [address] [place] [address], [place] [address] Sep, [facility] [address] [id number] [address] [place] [address], [place] [address] Sep, [facility] [address] [id number] [address] [place] [address], [place] [address] Sep, [facility] [address] [id number] [address] [place] [address], [place] [address] Sep, [facility] [address] [id number] [address] [place] [address], [place] [address] Aug, [facility] [address] [id number] [address] [place] [address], [place] [address] Aug, [facility] [address] [id number] [address] [place] [address], [place] [address] Aug, [facility] [address] [id number] [address] [place] [address], [place] [address] Aug, [facility] [address] [id number] [address] [place] [address], [place] [address] Aug, [facility] [address] [id number] [address] [place] [address], [place] [address] Aug, [facility] [address] [id number] [address] [place] [address], [place] [address] Jul, [facility] [facility] [address] [id number] [address] [place] [address], [place] [address] Jul, [facility] [address] [id number] [address] [place] [address], [place] [address] Jul, [facility] [address] [id number] [address] [place] [address], [place] [address] Jul, [facility] [address] [id number] [address] [place] [address], [place] [address] Jul, [facility] [address] [id number] [address] [place] [address], [place] [address] Jul, [facility] [address] [id number] [address] [place] [address], [place] [address] Jun, [facility] [address] [id number] [address] [place] [address], [place] [address] Jun, [facility] [address] [id number] [address] [place] [address], [place] [address] Jun, [facility] [address] [id number] [address] [place] [address], [place] [address] Jun, [facility] [address] [id number] [address] [place] [address], [place] [address] Jun, [facility] [address] [id number] [address] [place] [address], [place] [address] Jun, [facility] [address] [id number] [address] [place] [address], [place] [address] Jun, [facility] [address] [id number] [address] [place] [address], [place] [address] Jun, [facility] [address] [id number] [address] [place] [address], [place] [address] Jun, [facility] [address] [id number] [address] [place] [address], [place] [address] May, [facility] [address] [id number] [address] [place] [address], [place] [address] May, [facility] [address] [id number] [address] [place] [address], [place] [address] Apr, [facility] [address] [id number] [address] [place] [address], [place] [address] Apr, [facility] [address] [id number] [address] [place] [address], [place] [address] Apr, [facility] [address] [id number] [address] [place] [address], [place] [address] Apr, [facility] [address] [id number] [address] [place] [address], [place] [address] Apr, [facility] [address] [id number] [address] [place] [address], [place] [address] Apr, [facility] [address] [id number] [address] [place] [address], [place] [address] Apr, [facility] [address] [id number] [address] [place] [address], [place] [address] Apr, [facility] [address] [id number] [address] [place] [address], [place] [address] Apr, [facility] [address] [id number] [address] [place] [address], [place] [address] Apr, [facility] [address] [id number] [address] [place] [address], [place] [address] Mar, [facility] [address] [id number] [address] [place] [address], [place] [address] Mar, [facility] [address] [id number] [address] [place] [address], [place] [address] Mar, [facility] [address] [id number] [address] [place] [address], [place] [address] Mar, [facility] [address] [id number] [address] [place] [address], [place] [address] Mar, [facility] [address] [id number] [address] [place] [address], [place] [address] Mar, [facility] [address] [id number] [address] [place] [address], [place] [address] Feb, [facility] [address] [id number] [address] [place] [address], [place] [address] Feb, [facility] [address] [id number] [address] [place] [address], [place] [address] Feb, [facility] [address] [id number] [address] [place] [address], [place] [address] Feb, [facility] [address] [id number] [address] [place] [address], [place] [address] Jan, [facility] [address] [id number] [address] [place] [address], [place] [address] Jan, [facility] [address] [id number] [address] [place] [address], [place] [address] Jan, [facility] [address] [id number] [address] [place] [address], [place] [address] Jan, [facility] [address] [id number] [address] [place] [address], [place] [address] Oct, [facility] [address] [id number] [address] [place] [address], [place] [address] Oct, [facility] [address] [id number] [address] [place] [address], [place] [address] Sep, [facility] [address] [id number] [address] [place] [address], [place] [address] Sep, [facility] [address] [id number] [address] [place] [address], [place] [address] Sep, [facility] [address] [id number] [address] [place] [address], [place] [address] Sep, [facility] [address] [id number] [address] [place] [address], [place] [address] Aug, [facility] [address] [id number] [address] [place] [address], [place] [address] Aug, [facility] [address] [id number] [address] [place] [address], [place] [address] Aug, [facility] [address] [id number] [address] [place] [address], [place] [address] Aug, [facility] [address] [id number] [address] [place] [address], [place] [address] Jul, [facility] [address] [id number] [address] [place] [address], [place] [address] Jul, [facility] [address] [id number] [address] [place] [address], [place] [address] Jul, [facility] [address] [id number] [address] [place] [address], [place] [address] Jul, [facility] [address] [id number] [address] [place] [address], [place] [address] Jul, [facility] [address] [id number] [address] [place] [address], [place] [address] Jul, [facility] [address] [id number] [address] [place] [address], [place] [address] Jun, [facility] [address] [id number] [address] [place] [address], [place] [address] Jun, [facility] [address] [id number] [address] [place] [address], [place] [address] Jun, [facility] [address] [id number] [address] [place] [address], [place] [address] Jun, [facility] [address] [id number] [address] [place] [address], [place] [address] Jun, [facility] [address] [id number] [address] [place] [address], [place] [address] Jun, [facility] [address] [id number] [address] [place] [address], [place] [address] May, [facility] [address] [id number] [address] [place] [address], [place] [address] May, [facility] [address] [id number] [address] [place] [address], [place] [address] May, [facility] [address] [id number] [address] [place] [address], [place] [address] May, [facility] [address] [id number] [address] [place] [address], [place] [address] May, [facility] [address] [id number] [address] [place] [address], [place] [address] May, [facility] [address] [id number] [address] [place] [address], [place] [address] May, [facility] [address] [id number] [address] [place] [address], [place] [address] May, [facility] [address] [id number] [address] [place] [address], [place] [address] Apr, [facility] [address] [id number] [address] [place] [address], [place] [address] Apr, [facility] [address] [id number] [address] [place] [address] Mar, [facility] [address] [id number] [address] [place] [address], [place] [address] Mar, [facility] [address] [id number] [address] [place] [address], [place] [address] Mar, [facility] [address] [id number] [address] [place] [address], [place] [address] Mar, [facility] [address] [id number] [address] [place] [address], [place] [address] Feb, [facility] [address] [id number] [address] [place] [address], [place] [address] Jan, [facility] [address] [id number] [address] [place] [address], [place] [address] December, [facility] [address] [id number] [address] [place] [address], [place] [address] December, [facility] [address] [id number] [address] [place] [address], [place] [address] December, [facility] [address] [id number] [address] [place] [address], [place] [address] Nov, [facility] [address] [id number] [address] [place] [address], [place] [address] Nov, [facility] [address] [id number] [address] [place] [address], [place] [address] 14 Sep, 2012 [facility] [address] [id number] [address] [place] [address], [place] [address] 14 Sep, 2012 [facility] [address] [id number] [address] [place] [address], [place] [address] 14 Sep, 2012 [facility] [address] [id number] [address] [place] [address], [place] [address] Sep, [facility] [address] [id number] [address] [place] [address], [place] [address] Aug, [facility] [address] [id number] [address] [place] [address], [place] [address] Aug, [facility] [address] [id number] [address] [place] [address], [place] [address] Aug, [facility] [address] [id number] [address] [place] [address], [place] [address] Aug, [facility] [address] [id number] [address] [place] [address], [place] [address] Jul, [facility] [address] [id number] [address] [place] [address], [place] [address] Jul, [facility] [address] [id number] [address] [place] [address], [place] [address] Jul, [facility] [address] [id number] [address] [place] [address], [place] [address] Jul, [facility] [address] [id number] [address] [place] [address], [place] [address] Jun, [facility] [address] [id number] [address] [place] [address], [place] [address] Jun, [facility] [address] [id number] [address] [place] [address], [place] [address] Jun, [facility] [address] [id number] [address] [place] [address], [place] [address] Jun, [facility] [address] [id number] [address] [place] [address], [place] [address] May, [facility] [address] [id number] [address] [place] [address], [place] [address] May, [facility] [address] [id number] [address] [place] [address] May, [facility] [address] [id number] [address] [place] [address] May, [facility] [address] [id number] [address] [place] [address] May, [facility] [address] [id number] [address] [place] [address], [place] [address] 10 Apr, 2012 [facility] [address] [id number] [address] [place] [address] 08 Apr, 2012 [facility] [address] [id number] [address] [place] [address] 07 Apr, 2012 [facility] [address] [id number] [address] [place] [address] Apr, [facility] [address] [id number] [address] [place] [address], [place] [address] Mar, [facility] [address] [id number] [address] [place] [address], [place] [address] Mar, [facility] [address] [id number] [address] [place] [address], [place] [address] Feb, [facility] [address] [id number] [address] [place] [address], [place] [address] Feb, [facility] [address] [id number] [address] [place] [address], [place] [address] Feb, [facility] [address] [id number] [address] [place] [address], [place] [address] Jan, [facility] [address] [id number] [address] [place] [address], [place] [address] Jan, [facility] [address] [id number] [address] [place] [address], [place] [address] December, [facility] [address] [id number] [address] [place] [address], [place] [address] December, [facility] [address] [id number] [address] [place] [address], [place] [address] Nov, [facility] [address] [id number] [address] [place] [address], [place] [address] Oct, [facility] [address] [id number] [address] [place] [address], [place] [address] Oct, [facility] [address] [id number] [address] [place] [address], [place] [address] Sep, [facility] [address] [id number] [address] [place] [address], [place] [address] Sep, [facility] [address] [id number] [address] [place] [address], [place] [address] Aug, [facility] [address] [id number] [address] [place] [address], [place] [address] 30 Aug, 2011 [facility] [address] [id number] [address] [place] [address], [place] [address] 30 Jul, 2011 [facility] [address] [id number] [address] [place] [address], [place] [address] Jul, [facility] [address] [id number] [address] [place] [address], [place] [address] Jul, [facility] [address] [id number] [address] [place] [address], [place] [address] Jun, [facility] [address] [id number] [address] [place] [address], [place] [address] 07 Jun, 2011 [facility] [address] [id number] [address] [place] [address], [place] [address] 13 May, 2011 [facility] [address] [id number] [address] [place] [address], [place] [address] May, [facility] [address] [id number] [address] [place] [address], [place] [address] May, [facility] [address] [id number] [address] [place] [address], [place] [address] Jul, [facility] [address] [id number] [address] [place] [address], [place] [address] 08 Jul, 2010 [facility] [address] [id number] [address] [place] [address], [place] [address] 15 Jun, 2010 [facility] [address] [id number] [address] [place] [address], [place] [address] May, [facility] [address] [id number] [address] [place] [address], [place] [address] May, [facility] [address] [id number] [address] [place] [address], [place] [address] 14 Aug, 2009 [facility] [address] [id number] [address] [place] [address], [place] [address] Jul, [facility] [address] [facility] [id number] [address] [place] [address] Jun, [facility] [address] [facility] [id number] [address] [place] [address] Jun, [facility] [address] [facility] [id number] [address] [place] [address] Jun, [facility] [address] [facility] [id number] [address] [place] [address] Jun, [facility] [address] [facility] [id number] [address] [place] [address] Jun, [facility] [address] [facility] [id number] [address] [place] [phone] May, [facility] [address] [facility] [id number] [address] [place] [address] Sep, IMMUNIZATIONS No Known Immunizations SOCIAL HISTORY [...]
--- OUTSIDE RECORDS SUMMARY | 2020-01-28 14:33 | XMS REPORT ---
Author Author Katarina RODRIGUEZ Organization [facility] Address [address] [place] [address] Care Team Providers Care Transmission Systems Operator Name Role Phone GEORGINA RODRIGUEZ Unavailable PROBLEMS Type Condition ICD9-CM Code PPQ74-QW Code Onset Dates Condition S tatus SNOMED Code Problem Chronic obstructive pulmonary disease, unspecified COPD ty pe J44.9 Active 09863789 Problem Cigarette nicotine dependence without complication F17.210 Active 18939072 Problem Osteoarthritis M19.90 Active 64644 5006 Problem High risk medication use Z79.899 Activ e 188327445 Problem Acquired hypothyroidism E03.9 Active 316185300 Problem History of cataract surgery Z98.49 Ac tive 669274814 Problem Urinary incontinence, unspecified type R32 Active 917180950 Problem shelter (current) use of anticoagulants Z79.01 Active 453772518 Problem Chronic atrial fibrillation I48.2 Ac tive 602907950 Problem Encounter for immunization Z23 Act essie 837171204 Problem Other chronic pain G89.29 Active 8 4222279 Problem Diabetes E11.9 Active 933721835 Problem Morbid obesity, unspecified obesity type E66.01 Active 678104135 Problem Irregular heart beats I49.9 Active 784825349 Problem Other urinary incontinence N39.498 Act essie 461273481 Problem Essential hypertension I10 Active 55121473 ALLERGIES No Information ENCOUNTERS Encounter Location Date Diagnosis [facility] [address] [id number] [address] [place] [address] Mar, [facility] [address] [id number] [address] [place] [address] Feb, Osteoarthritis M19.90 [facility] [address] [id number] [address] [place] [address] Feb, Chronic atrial fibrillation I48.2 [facility] [address] [id number] [address] [place] [address] Feb, Hyperglycemia R73.9 ; Diabet es E11.9 ; Morbid obesity E66.01 ; Acquired hypothyroidism E03.9 ; Osteoarthritis M19.90 and High risk medication use Z79.899 [facility] [address] [id number] [address] [place] [address] Feb, Chronic atrial fibrillation I48.2 [facility] [address] [id number] [address] [place] [address] Jan, Osteoarthritis M19.90 [facility] [address] [id number] [address] [place] [address] Jan, Chronic atrial fibrillation I48.2 [facility] [address] [id number] [address] [place] [address] Jan, Chronic atrial fibrillation I48.2 [facility] [address] [id number] [address] [place] [address] Jan, Chronic atrial fibrillation I48.2 [facility] [address] [id number] [address] [place] [address] Jan, 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 [facility] [address] [id number] [address] [place] [address] December, [facility] [address] [id number] [address] [place] [address] December, [facility] [address] [id number] [address] [place] [address] December, Osteoarthritis M19.90 [facility] [address] [id number] [address] [place] [address] Nov, [facility] [address] [id number] [address] [place] [address] Nov, Osteoarthritis M19.90 [facility] [address] [id number] [address] [place] [address] Oct, Osteoarthritis M19.90 [facility] [address] [id number] [address] [place] [address] Sep, Osteoarthritis M19.90 [facility] [address] [id number] [address] [place] [address] Sep, shelter (current) use of a nticoagulants Z79.01 ; BMI 45.0-49.9, adult Z68.42 ; Diabetes E11.9 ; Chronic atrial fibrillation I48.2 and Chronic obstructive pulmonary disease, unspecified COPD type J44.9 [facility] [address] [id number] [address] [place] [address] Sep, Diabetes E11.9 ; 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 ; Chronic atrial fibrillation I48.2 ; Chronic obstructive pulmonary disease, unspecified COPD type J44.9 and BMI 45.0-49.9, adult Z68.42 [facility] [address] [id number] [address] [place] [address] Aug, Osteoarthritis M19.90 [facility] [address] [id number] [address] [place] [address] Aug, [facility] [address] [id number] [address] [place] [address] Aug, shelter (current) use of a nticoagulants Z79.01 ; BMI 45.0-49.9, adult Z68.42 ; Diabetes E11.9 and Chronic atrial fibrillation I48.2 [facility] [address] [id number] [address] [place] [address] Aug, [facility] [address] [id number] [address] [place] [address] Jul, Osteoarthritis M19.90 [facility] [address] [id number] [address] [place] [address] Jun, Osteoarthritis M19.90 [facility] [address] [id number] [address] [place] [address] Jun, shelter (current) use of a nticoagulants Z79.01 [facility] [address] [id number] [address] [place] [address] Jun, Chronic atrial fibrillation I48.2 and shelter (current) use of anticoagulants Z79.01 [facility] [address] [id number] [address] [place] [address] Jun, Osteoarthritis M19.90 [facility] [address] [id number] [address] [place] [address] May, Encounter for immunization Z 23 [facility] [address] [id number] [address] [place] [address] May, 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 [place] [address] [id number] [address] [place] [address] May, Osteoarthritis M19.90 [place] [address] [id number] [address] [place] [address] May, [place] [address] [id number] [address] [place] [address] May, Diabetes E11.9 ; 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 ; Chronic atrial fibrillation I48.2 ; BMI 45.0-49.9, adult Z68.42 ; Osteoarthritis M19.90 ; Low back pain M54.5 and Other chronic pain G89.29 [facility] [address] [id number] [address] [place] [address] Apr, Chronic atrial fibrillation I48.2 [place] [address] [id number] [address] [place] [address] Apr, 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 [facility] [address] [id number] [address] [place] [address] Apr, Osteoarthritis M19.90 [facility] [address] [id number] [address] [place] [address] Apr, 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 and Chronic atrial fibrillation I48.2 [facility] [address] [id number] [address] [place] [address] Mar, Osteoarthritis M19.90 [facility] [address] [id number] [address] [place] [address] Feb, Osteoarthritis M19.90 [facility] [address] [id number] [address] [place] [address] Jan, Osteoarthritis M19.90 [facility] [address] [id number] [address] [place] [address] December, [facility] [address] [id number] [address] [place] [address] December, Osteoarthritis M19.90 [facility] [address] [id number] [address] [place] [address] Nov, Diabetes E11.9 ; shelter ( current) use of anticoagulants Z79.01 ; Acquired hypothyroidism E03.9 ; Cigarette nicotine dependence without complication F17.210 ; Osteoarthritis M19.90 ; BMI 45.0-49.9, adult Z68.42 and Chronic atrial fibrillation I48.2 [facility] [address] [id number] [address] [place] [address] Nov, Osteoarthritis M19.90 [facility] [address] [id number] [address] [place] [address] Oct, Osteoarthritis M19.90 [facility] [address] [id number] [address] [place] [address] Oct, 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 [facility] [address] [id number] [address] [place] [address] Sep, Osteoarthritis M19.90 [facility] [address] [id number] [address] [place] [address] Sep, [facility] [address] [id number] [address] [place] [address] Aug, Osteoarthritis M19.90 [facility] [address] [id number] [address] [place] [address] Jul, Osteoarthritis M19.90 [facility] [address] [id number] [address] [place] [address] Jul, Osteoarthritis M19.90 [facility] [address] [id number] [address] [place] [address] Jun, Diabetes E11.9 ; Encounter f or immunization Z23 ; shelter (current) use of anticoagulants Z79.01 ; Chronic atrial fibrillation I48.2 ; Osteoarthritis M19.90 ; Tobacco abuse Z72.0 and Bug bite, initial encounter W57.XXXA [facility] [address] [id number] [address] [place] [address] May, Osteoarthritis M19.90 [facility] [address] [id number] [address] [place] [address] Apr, Osteoarthritis M19.90 [facility] [address] [id number] [address] [place] [address] Mar, Chronic atrial fibrillation I48.2 [facility] [address] [id number] [address] [place] [address] Mar, [facility] [address] [id number] [address] [place] [address] Mar, Osteoarthritis M19.90 [facility] [address] [id number] [address] [place] [address] Mar, shelter (current) use of a nticoagulants Z79.01 and Chronic atrial fibrillation I48.2 [facility] [address] [id number] [address] [place] [address] Mar, Chronic atrial fibrillation I48.2 and shelter (current) use of anticoagulants Z79.01 [facility] [address] [id number] [address] [place] [address] 14 Mar, 2017 shelter (current) use of a nticoagulants Z79.01 [facility] [address] [id number] [address] [place] [address] 04 Mar, 2017 shelter (current) use of a nticoagulants Z79.01 [facility] [address] [id number] [address] [place] [address] Mar, Osteoarthritis M19.90 [facility] [address] [id number] [address] [place] [address] Feb, Encounter for screening mamm ogram for malignant neoplasm of breast Z12.31 [facility] [address] [id number] [address] [place] [address] Feb, Osteoarthritis M19.90 [facility] [address] [id number] [address] [place] [address] Jan, [facility] [address] [id number] [address] [place] [address] Jan, shelter (current) use of a nticoagulants Z79.01 ; Diabetes E11.9 ; Osteoarthritis M19.90 and Breast cancer screening Z12.39 [facility] [address] [id number] [address] [place] [address] Jan, Osteoarthritis M19.90 [facility] [address] [id number] [address] [place] [address] Jan, Osteoarthritis M19.90 [facility] [address] [id number] [address] [place] [address] Jan, [facility] [address] [id number] [address] [place] [address] December, Osteoarthritis M19.90 [facility] [address] [id number] [address] [place] [address] December, Osteoarthritis M19.90 [facility] [address] [id number] [facility] [place] [id number] Nov, [facility] [address] [id number] [address] [place] [address] Nov, [facility] [address] [id number] [address] [place] [address] Nov, [facility] [address] [id number] [address] [place] [address] Nov, Diabetes E11.9 [facility] [address] [id number] [address] [place] [address] Nov, [facility] [address] [id number] [address] [place] [address] Oct, Osteoarthritis M19.90 [facility] [address] [id number] [address] [place] [address] Oct, Osteoarthritis M19.90 ; shelter (current) use of anticoagulants Z79.01 ; Diabetes E11.9 ; Cigarette nicotine dependence without complication F17.210 and Chronic atrial fibrillation I48.2 [facility] [address] [id number] [address] [place] [address] Aug, [facility] [address] [id number] [address] [place] [address] Aug, shelter (current) use of a nticoagulants Z79.01 [facility] [address] [id number] [address] [place] [address] Aug, [facility] [address] [id number] [place] [id number] Aug, [facility] [address] [id number] [address] [place] [address] Aug, [facility] [address] [id number] [address] [place] [address] Aug, [facility] [address] [id number] [id number] Aug, [facility] [address] [id number] Aug Osteoarthritis M19.90 and Essential hypertension I10 [place] [address] [place] [id number] [address] [place] [address] Aug, Other urinary incontinence N 39.498 [place] [address] [place] [id number] [address] [place] [address] Jul, Osteoarthritis M19.90 [place] [address] [address] Jun, Diabetes E11.9 ; Encounter f or immunization Z23 ; Osteoarthritis M19.90 ; shelter (current) use of anticoagulants Z79.01 ; Cigarette nicotine dependence without complication F17.210 ; Acquired hypothyroidism E03.9 ; Morbid obesity, unspecified obesity type E66.01 and Irregular heart beats I49.9 [place] [address] [address] Jun, Osteoarthritis M19.90 [place] [address] [place] [id number] [address] [place] [address] May, Osteoarthritis M19.90 [place] [address] [place] [id number] [address] [place] [address] May, Urinary incontinence, unspec ified type R32 [place] [id number] [place] [address] May, [place] [address] [place] [id number] [address] [place] [address] Apr, Osteoarthritis M19.90 [place] [address] [place] [id number] [address] [place] [address] Apr, shelter (current) use of a nticoagulants Z79.01 [place] [address] [place] [id number] [address] [place] [address] Apr, [place] [address] [place] [id number] [address] [place] [address] Apr, Osteoarthritis M19.90 [facility] [address] [id number] [address] [place] [address] Mar, Diabetes E11.9 ; Hypothyroid ism, unspecified type E03.9 ; Osteoarthritis M19.90 ; High risk medication use Z79.899 ; Cigarette nicotine dependence without complication F17.210 and Morbid obesity, unspecified obesity type E66.01 [facility] [address] [id number] [address] [place] [address] Mar, Osteoarthritis M19.90 [facility] [address] [id number] [address] [place] [address] December, Osteoarthritis M19.90 [facility] [address] [id number] [address] [place] [address] December, [facility] [address] [id number] [address] [place] [address] Oct, [facility] [address] [id number] [address] [place] [address] Oct, [facility] [address] [id number] [address] [place] [address] Aug, [facility] [address] [id number] [address] [place] [address] Jul, [facility] [address] [id number] [address] [place] [address] Jul, [facility] [address] [id number] [address] [place] [address] Jul, Diabetes E11.9 ; Encounter f or immunization Z23 ; Abnormal mammogram R92.8 ; Acquired hypothyroidism E03.9 ; High risk medication use Z79.899 ; Osteoarthritis M19.90 and Cigarette nicotine dependence without complication F17.210 [facility] [address] [id number] [address] [place] [address] Jul, [facility] [address] [id number] [address] [place] [address] Jun, Abnormal mammogram R92.8 [facility] [address] [id number] [address] [place] [address] Apr, [facility] [address] [id number] [address] [place] [address] Apr, [facility] [address] [id number] [address] [place] [address] Mar, [facility] [address] [id number] [address] [place] [address] Mar, 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 [facility] [address] [id number] [address] [place] [address] Feb, [facility] [address] [id number] [address] [place] [address] Jan, [facility] [address] [id number] [address] [place] [address] December, [facility] [address] [id number] [address] [place] [address] Nov, [facility] [address] [id number] [address] [place] [address] Nov, [facility] [address] [id number] [address] [place] [address] Oct, [facility] [address] [id number] [address] [place] [address] Oct, [facility] [address] [id number] [address] [place] [address] Oct, [facility] [address] [id number] [address] [place] [address] Oct, [facility] [address] [id number] [address] [place] [id number] 16 Oct, 2014 [facility] [address] [id number] [address] [place] [address], [place] [address] Oct, [facility] [address] [id number] [address] [place] [address], [place] [address] Sep, [facility] [address] [id number] [address] [place] [address], [place] [address] Sep, [facility] [address] [id number] [address] [place] [address], [place] [address] Sep, [facility] [address] [id number] [address] [place] [address], [place] [address] Sep, [facility] [address] [id number] [address] [place] [address], [place] [address] Aug, [facility] [address] [id number] [address] [place] [address], [place] [address] Aug, [facility] [address] [id number] [address] [place] [address], [place] [address] Aug, [facility] [address] [id number] [address] [place] [address], [place] [address] Aug, [facility] [address] [id number] [address] [place] [address], [place] [address] Aug, [facility] [address] [id number] [address] [place] [address], [place] [address] Aug, [facility] [address] [id number] [address] [place] [address], [place] [address] Jul, [facility] [address] [id number] [address] [place] [address], [place] [address] Jul, [facility] [address] [id number] [address] [place] [address], [place] [address] Jul, [facility] [address] [id number] [address] [place] [address], [place] [address] Jul, [facility] [address] [id number] [address] [place] [address], [place] [address] Jul, [facility] [address] [id number] [address] [place] [address], [place] [address] Jul, [facility] [address] [id number] [address] [place] [address], [place] [address] Jun, [facility] [address] [id number] [address] [place] [address], [place] [address] Jun, [facility] [address] [id number] [address] [place] [address], [place] [address] Jun, [facility] [address] [id number] [address] [place] [address], [place] [address] Jun, [facility] [address] [id number] [address] [place] [address], [place] [address] Jun, [facility] [address] [id number] [address] [place] [address], [place] [address] Jun, [facility] [address] [id number] [address] [place] [address], [place] [address] Jun, [facility] [address] [id number] [address] [place] [address], [place] [address] Jun, [facility] [address] [id number] [address] [place] [address], [place] [address] Jun, [facility] [address] [id number] [address] [place] [address], [place] [address] May, [facility] [address] [id number] [address] [place] [address] May, [facility] [address] [id number] [address] [place] [address], [place] [address] Apr, [facility] [address] [id number] [address] [place] [address], [place] [address] Apr, [facility] [address] [id number] [address] [place] [address], [place] [address] Apr, [facility] [address] [id number] [address] [place] [address], [place] [address] Apr, 2013 [facility] [address] [id number] [facility] [place] [address] 11 Apr, 2013 [facility] [address] [id number] [address] [place] [address], [place] [address] Apr, 2013 [facility] [address] [id number] [address] [place] [address], [place] [address] Apr, 2013 [facility] [address] [id number] [address] [place] [address], [place] [address] Apr, 2013 [facility] [address] [id number] [address] [place] [address], [place] [address] Apr, 2013 [facility] [address] [id number] [address] [place] [address], [place] [address] Apr, 2013 [facility] [address] [id number] [address] [place] [address], [place] [address] Mar, [facility] [address] [id number] [address] [place] [address], [place] [address] Mar, [facility] [address] [id number] [address] [place] [address], [place] [address] Mar, [facility] [address] [id number] [address] [place] [address], [place] [address] Mar, [facility] [address] [id number] [address] [place] [address], [place] [address] Mar, [facility] [address] [id number] [address] [place] [address], [place] [address] Mar, [facility] [address] [id number] [address] [place] [address], [place] [address] Feb, [facility] [address] [id number] [address] [place] [address], [place] [address] Feb, [facility] [address] [id number] [address] [place] [address], [place] [address] Feb, [facility] [address] [id number] [address] [place] [address], [place] [address] Feb, [facility] [address] [id number] [address] [place] [address], [place] [address] Jan, [facility] [address] [id number] [address] [place] [address], [place] [address] Jan, [facility] [address] [id number] [address] [place] [address], [place] [address] Jan, [facility] [address] [id number] [address] [place] [address], [place] [address] Jan, [facility] [address] [id number] [address] [place] [address], [place] [address] Oct, [facility] [address] [id number] [address] [place] [address], [place] [address] Oct, [facility] [address] [id number] [address] [place] [address], [place] [address] Sep, [facility] [address] [id number] [address] [place] [address], [place] [address] Sep, [facility] [address] [id number] [address] [place] [address], [place] [address] Sep, [facility] [address] [id number] [address] [place] [address], [place] [address] Sep, [facility] [address] [id number] [address] [place] [address], [place] [address] Aug, [facility] [address] [id number] [address] [place] [address], [place] [address] Aug, [facility] [address] [id number] [address] [place] [address], [place] [address] Aug, [facility] [address] [id number] [address] [place] [address], [place] [address] Aug, [facility] [address] [id number] [address] [place] [address] 30 Jul, 2013 [facility] [address] [id number] [address] [place] [address], [place] [address] 30 Jul, 2013 [facility] [address] [id number] [address] [place] [address], [place] [address] Jul, [facility] [address] [id number] [address] [place] [address], [place] [address] Jul, [facility] [address] [id number] [address] [place] [address], [place] [address] Jul, [facility] [address] [id number] [address] [place] [address], [place] [address] Jul, [facility] [address] [id number] [address] [place] [address], [place] [address] Jun, [facility] [address] [id number] [address] [place] [address], [place] [address] Jun, [facility] [address] [id number] [address] [place] [address], [place] [address] Jun, [facility] [address] [id number] [address] [place] [address] Jun, [facility] [address] [id number] [address] [place] [address], [place] [address] Jun, [facility] [address] [id number] [address] [place] [address] Jun, [facility] [address] [id number] [address] [place] [address] May, [facility] [address] [id number] [address] [place] [address], [place] [address] May, [facility] [address] [id number] [address] [place] [address], [place] [address] May, [facility] [address] [id number] [address] [place] [address], [place] [address] May, [facility] [address] [id number] [address] [place] [address], [place] [address] May, [facility] [address] [id number] [address] [place] [address], [place] [address] May, [facility] [address] [id number] [address] [place] [address], [place] [address] May, [facility] [address] [id number] [address] [place] [address], [place] [address] May, [facility] [address] [id number] [address] [place] [address], [place] [address] Apr, [facility] [address] [id number] [address] [place] [address], [place] [address] Apr, [facility] [address] [id number] [address] [place] [address], [place] [address] Mar, [facility] [address] [id number] [address] [place] [address], [place] [address] Mar, [facility] [address] [id number] [address] [place] [address], [place] [address] Mar, [facility] [address] [id number] [address] [place] [address], [place] [address] Mar, [facility] [address] [id number] [address] [place] [address], [place] [address] Feb, [facility] [address] [id number] [address] [place] [address], [place] [address] Jan, [facility] [address] [id number] [address] [place] [address], [place] [address] December, [facility] [address] [id number] [address] [place] [address], [place] [address] December, [facility] [address] [id number] [address] [place] [address], [place] [address] December, [facility] [address] [id number] [address] [place] [address], [place] [address] Nov, [facility] [address] [id number] [address] [place] [address], [place] [address] Nov, [facility] [address] [id number] [address] [place] [address], [place] [address] 14 Sep, 2012 [facility] [address] [id number] [address] [place] [address], [place] [address] Sep, [facility] [address] [id number] [address] [place] [address], [place] [address] Sep, [facility] [address] [id number] [address] [place] [address], [place] [address] Sep, [facility] [address] [id number] [address] [place] [address], [place] [address] Aug, [facility] [address] [id number] [address] [place] [address], [place] [address] Aug, [facility] [address] [id number] [address] [place] [address], [place] [address] Aug, [facility] [address] [id number] [address] [place] [address], [place] [address] Aug, [facility] [address] [id number] [address] [place] [address], [place] [address] Jul, [facility] [address] [id number] [address] [place] [address], [place] [address] Jul, [facility] [address] [id number] [address] [place] [address], [place] [address] Jul, [facility] [address] [id number] [address] [place] [address], [place] [address] Jul, [facility] [address] [id number] [address] [place] [address], [place] [address] Jun, [facility] [address] [id number] [address] [place] [address], [place] [address] Jun, [facility] [address] [id number] [address] [place] [address], [place] [address] 08 Jun, 2012 [facility] [address] [id number] [address] [place] [address], [place] [address] Jun, [facility] [address] [id number] [address] [place] [address], [place] [address] May, [facility] [address] [id number] [address] [place] [address], [place] [address] May, [facility] [address] [id number] [address] [place] [address], [place] [address] May, [facility] [address] [id number] [address] [place] [address], [place] [address] May, [facility] [address] [id number] [address] [place] [address], [place] [address] May, [facility] [address] [id number] [address] [place] [address], [place] [address] 10 Apr, 2012 [facility] [address] [id number] [address] [place] [address], [place] [address] 08 Apr, 2012 [facility] [address] [id number] [address] [place] [address], [place] [address] 07 Apr, 2012 [facility] [address] [id number] [address] [place] [address], [place] [address] 06 Apr, 2012 [facility] [address] [id number] [address] [place] [address], [place] [address] Mar, [facility] [address] [id number] [address] [place] [address], [place] [address] Mar, [facility] [address] [id number] [address] [place] [address], [place] [address] Feb, [facility] [address] [id number] [address] [place] [address], [place] [address] Feb, [facility] [address] [id number] [address] [place] [address], [place] [address] Feb, [facility] [place] [address] [id number] [address] [place] [address], [place] [address] Jan, [facility] [address] [id number] [address] [place] [address], [place] [address] Jan, [facility] [address] [id number] [address] [place] [address], [place] [address] December, [facility] [address] [id number] [address] [place] [address], [place] [address] December, [facility] [address] [id number] [address] [place] [address], [place] [address] Nov, [facility] [address] [id number] [address] [place] [address], [place] [address] Oct, [facility] [address] [id number] [address] [place] [address], [place] [address] Oct, [facility] [address] [id number] [address] [place] [address], [place] [address] Sep, [facility] [address] [id number] [address] [place] [address], [place] [address] Sep, [facility] [address] [id number] [address] [place] [address], [place] [address] Aug, [facility] [address] [id number] [address] [place] [address], [place] [address] Aug, [facility] [address] [id number] [address] [place] [address], [place] [address] Jul, [facility] [address] [id number] [address] [place] [address], [place] [address] Jul, [facility] [address] [id number] [address] [place] [address], [place] [address] Jul, [facility] [address] [id number] [address] [place] [address], [place] [address] Jun, [facility] [address] [id number] [address] [place] [address] 07 Jun, 2011 [facility] [address] [id number] [address] [place] [address], [place] [address] 13 May, 2011 [facility] [address] [id number] [address] [place] [address] 11 May, 2011 [facility] [address] [id number] [address] [place] [address], [place] [address] 11 May, 2011 [facility] [address] [id number] [address] [place] [address] 09 Jul, 2010 [facility] [address] [id number] [address] [place] [address], [place] [address] 08 Jul, 2010 [facility] [address] [id number] [address] [place] [address], [place] [address] 15 Jun, 2010 [facility] [address] [id number] [address] [place] [address] May, [facility] [address] [id number] [address] [place] [address], [place] [address] May, [facility] [address] [id number] [address] [place] [address] 14 Aug, 2009 [facility] [address] [id number] [address] [place] [address] Jul, [facility] [address] [id number] [address] [place] [address] Jun, [facility] [address] [id number] [address] [place] [address] Jun, [facility] [address] [id number] [address] [place] [address] Jun, [facility] [address] [id number] [address] [place] [address] Jun, [facility] [address] [id number] [address] [place] [address] Jun, [facility] [address] [id number] [address] [place] [address] May, [facility] [address] [id number] [address] [place] [address] Sep, IMMUNIZATIONS No Known Immunizations SOCIAL HISTORY [...]
--- OUTSIDE RECORDS SUMMARY | 2020-01-28 14:33 | XMS REPORT ---
Author Author Katarina RODRIGUEZ Organization [facility] Address [address] [place] [address] Care Team Providers Care Psychologist Social Name Role Phone GEORGINA RODRIGUEZ Unavailable PROBLEMS Type Condition ICD9-CM Code RAN49-QD Code Onset Dates Condition S tatus SNOMED Code Problem Chronic obstructive pulmonary disease, unspecified COPD ty pe J44.9 Active 17315453 Problem Cigarette nicotine dependence without complication F17.210 Active 64073390 Problem Osteoarthritis M19.90 Active 27743 5006 Problem High risk medication use Z79.899 Activ e 158378320 Problem Acquired hypothyroidism E03.9 Active 831202701 Problem History of cataract surgery Z98.49 Ac tive 060165405 Problem Urinary incontinence, unspecified type R32 Active 595944777 Problem [facility] (current) use of anticoagulants Z79.01 Active 759544835 Problem Chronic atrial fibrillation I48.2 Ac tive 824569530 Problem Encounter for immunization Z23 Act essie 456390927 Problem Other chronic pain G89.29 Active 8 0118845 Problem Diabetes E11.9 Active 713331423 Problem Morbid obesity, unspecified obesity type E66.01 Active 620228913 Problem Irregular heart beats I49.9 Active 247978759 Problem Other urinary incontinence N39.498 Act essie 284618373 Problem Essential hypertension I10 Active 53271258 ALLERGIES No Information ENCOUNTERS Encounter Location Date Diagnosis [facility] [address] [facility] [id number] [address] [place] [phone] Mar, [facility] [address] [facility] [id number] [address] [place] [id number] Feb, Osteoarthritis M19.90 [facility] [address] [facility] [id number] [address] [place] [id number] Feb, Chronic atrial fibrillation I48.2 [facility] [address] [facility] [id number] [address] [place] [phone] Feb, Hyperglycemia R73.9 ; Diabet es E11.9 ; Morbid obesity E66.01 ; Acquired hypothyroidism E03.9 ; Osteoarthritis M19.90 and High risk medication use Z79.899 [facility] [address] [id number] [address] [place] [phone] Feb, Chronic atrial fibrillation I48.2 [facility] [address] [id number] [address] [place] [id number] Jan, Osteoarthritis M19.90 [facility] [address] [facility] [id number] [address] [place] [phone] Jan, Chronic atrial fibrillation I48.2 [facility] [address] [facility] [id number] [address] [place] [phone] Jan, Chronic atrial fibrillation I48.2 [facility] [address] [facility] [id number] [address] [place] [id number] Jan, Chronic atrial fibrillation I48.2 [facility] [address] [facility] [id number] [address] [place] [phone] Jan, 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 [facility] [address] [facility] [id number] [address] [place] [address] December, [facility] [address] [facility] [id number] [address] [place] [id number] December, [facility] [address] [facility] [id number] [address] [place] [id number] December, Osteoarthritis M19.90 [facility] [address] [facility] [id number] [address] [place] [phone] Nov, [facility] [address] [facility] [id number] [address] [place] [id number] Nov, Osteoarthritis M19.90 [facility] [address] [facility] [id number] [address] [place] [phone] Oct, Osteoarthritis M19.90 [facility] [address] [facility] [id number] [address] [place] [id number] Sep, Osteoarthritis M19.90 [facility] [address] [facility] [id number] [address] [place] [address] Sep, [facility] (current) use of a nticoagulants Z79.01 ; BMI 45.0-49.9, adult Z68.42 ; Diabetes E11.9 ; Chronic atrial fibrillation I48.2 and Chronic obstructive pulmonary disease, unspecified COPD type J44.9 [facility] [address] [id number] [address] [place] [phone] Sep, Diabetes E11.9 ; 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 ; Chronic atrial fibrillation I48.2 ; Chronic obstructive pulmonary disease, unspecified COPD type J44.9 and BMI 45.0-49.9, adult Z68.42 [facility] [address] [facility] [id number] [address] [place] [phone] Aug, Osteoarthritis M19.90 [facility] [address] [facility] [id number] [address] [place] [phone] Aug, [facility] [address] [facility] [id number] [address] [place] [phone] Aug, [facility] (current) use of a nticoagulants Z79.01 ; BMI 45.0-49.9, adult Z68.42 ; Diabetes E11.9 and Chronic atrial fibrillation I48.2 [facility] [address] [id number] [address] [place] [phone] Aug, [facility] [address] [facility] [id number] [address] [place] [phone] Jul, Osteoarthritis M19.90 [facility] [address] [facility] [id number] [address] [place] [phone] Jun, Osteoarthritis M19.90 [facility] [address] [facility] [id number] [address] [place] [phone] Jun, [facility] (current) use of a nticoagulants Z79.01 [facility] [address] [id number] [address] [place] [phone] Jun, Chronic atrial fibrillation I48.2 and [facility] (current) use of anticoagulants Z79.01 [facility] [address] [id number] [address] [place] [phone] Jun, Osteoarthritis M19.90 [facility] [address] [id number] [address] [place] [address] May, Encounter for immunization Z 23 [facility] [address] [facility] [id number] [address] [place] [id number] May, 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 [place] [address] [facility] [id number] [address] [place] [address] May, Osteoarthritis M19.90 [place] [address] [id number] [address] [place] [phone] May, [place] [address] [facility] [id number] [address] [place] [address] May, Diabetes E11.9 ; 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 ; Chronic atrial fibrillation I48.2 ; BMI 45.0-49.9, adult Z68.42 ; Osteoarthritis M19.90 ; Low back pain M54.5 and Other chronic pain G89.29 [facility] [address] [id number] [address] [place] [address] Apr, Chronic atrial fibrillation I48.2 [place] [address] [id number] [address] [place] [id number] Apr, 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 [facility] [address] [facility] [id number] [address] [place] [address] Apr, Osteoarthritis M19.90 [facility] [address] [facility] [id number] [address] [place] [phone] Apr, 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 and Chronic atrial fibrillation I48.2 [facility] [address] [id number] [address] [place] [address] Mar, Osteoarthritis M19.90 [facility] [address] [id number] [address] [place] [address] Feb, Osteoarthritis M19.90 [facility] [address] [facility] [id number] [address] [place] [phone] Jan, Osteoarthritis M19.90 [facility] [address] [facility] [id number] [address] [place] [phone] December, [facility] [address] [facility] [id number] [address] [place] [address] December, Osteoarthritis M19.90 [facility] [address] [facility] [id number] [address] [place] [address] Nov, Diabetes E11.9 ; [facility] ( current) use of anticoagulants Z79.01 ; Acquired hypothyroidism E03.9 ; Cigarette nicotine dependence without complication F17.210 ; Osteoarthritis M19.90 ; BMI 45.0-49.9, adult Z68.42 and Chronic atrial fibrillation I48.2 [facility] [address] [facility] [id number] [address] [place] [phone] Nov, Osteoarthritis M19.90 [facility] [address] [facility] [id number] [address] [place] [phone] Oct, Osteoarthritis M19.90 [facility] [address] [facility] [id number] [address] [place] [phone] Oct, 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 [facility] [address] [facility] [id number] [address] [place] [address] Sep, Osteoarthritis M19.90 [facility] [address] [facility] [id number] [address] [place] [id number] Sep, [facility] [address] [facility] [id number] [address] [place] [address] Aug, Osteoarthritis M19.90 [facility] [address] [facility] [id number] [address] [place] [id number] Jul, Osteoarthritis M19.90 [facility] [address] [facility] [id number] [address] [place] [phone] Jul, Osteoarthritis M19.90 [facility] [address] [facility] [id number] [address] [place] [phone] Jun, Diabetes E11.9 ; Encounter f or immunization Z23 ; [facility] (current) use of anticoagulants Z79.01 ; Chronic atrial fibrillation I48.2 ; Osteoarthritis M19.90 ; Tobacco abuse Z72.0 and Bug bite, initial encounter W57.XXXA [facility] [address] [facility] [id number] [address] [place] [id number] May, Osteoarthritis M19.90 [facility] [address] [facility] [id number] [address] [place] [id number] Apr, Osteoarthritis M19.90 [facility] [address] [facility] [id number] [address] [place] [id number] Mar, Chronic atrial fibrillation I48.2 [facility] [address] [facility] [id number] [address] [place] [id number] Mar, [facility] [address] [facility] [id number] [address] [place] [phone] Mar, Osteoarthritis M19.90 [facility] [address] [id number] [address] [place] [address] Mar, [facility] (current) use of a nticoagulants Z79.01 and Chronic atrial fibrillation I48.2 [facility] [address] [facility] [id number] [address] [place] [id number] Mar, Chronic atrial fibrillation I48.2 and [facility] (current) use of anticoagulants Z79.01 [facility] [address] [id number] [address] [place] [phone] 14 Mar, 2017 [facility] (current) use of a nticoagulants Z79.01 [facility] [address] [id number] [address] [place] [phone] 04 Mar, 2017 [facility] (current) use of a nticoagulants Z79.01 [facility] [address] [id number] [address] [place] [address] Mar, Osteoarthritis M19.90 [facility] [address] [facility] [id number] [address] [place] [id number] Feb, Encounter for screening mamm ogram for malignant neoplasm of breast Z12.31 [facility] [address] [facility] [id number] [address] [place] [phone] Feb, Osteoarthritis M19.90 [facility] [address] [facility] [id number] [address] [place] [id number] Jan, [facility] [address] [id number] [address] [place] [address] Jan, [facility] (current) use of a nticoagulants Z79.01 ; Diabetes E11.9 ; Osteoarthritis M19.90 and Breast cancer screening Z12.39 [facility] [address] [facility] [id number] [address] [place] [id number] Jan, Osteoarthritis M19.90 [facility] [address] [id number] [address] [place] [address] Jan, Osteoarthritis M19.90 [facility] [address] [id number] [address] [place] [id number] Jan, [facility] [address] [facility] [id number] [address] [place] [id number] December, Osteoarthritis M19.90 [facility] [address] [facility] [id number] [address] [place] [id number] December, Osteoarthritis M19.90 [facility] [address] [id number] [facility] [place] [id number] Nov, [facility] [address] [id number] [address] [place] [id number] Nov, [facility] [address] [id number] [address] [place] [phone] Nov, [facility] [address] [id number] [address] [place] [phone] Nov, Diabetes E11.9 [facility] [address] [id number] [address] [place] [phone] Nov, [facility] [address] [id number] [address] [place] [phone] Oct, Osteoarthritis M19.90 [facility] [address] [facility] [id number] [address] [place] [address] Oct, Osteoarthritis M19.90 ; [facility] (current) use of anticoagulants Z79.01 ; Diabetes E11.9 ; Cigarette nicotine dependence without complication F17.210 and Chronic atrial fibrillation I48.2 [facility] [address] [id number] [address] [place] [phone] Aug, [facility] [address] [id number] [address] [place] [id number] Aug, [facility] (current) use of a nticoagulants Z79.01 [facility] [address] [id number] [address] [place] [phone] Aug, [facility] [address] [id number] [place] [id number] Aug, [facility] [address] [id number] [address] [place] [id number] Aug, [facility] [address] [facility] [id number] [address] [place] [id number] Aug, [facility] [address] [id number] [place] [id number] Aug, [facility] [address] [place] [id number] Aug Osteoarthritis M19.90 and Essential hypertension I10 [place] [address] [place] [id number] [address] [place] [address] Aug, Other urinary incontinence N 39.498 [place] [address] [place] [id number] [address] [place] [address] Jul, Osteoarthritis M19.90 [place] [address] [address] Jun, Diabetes E11.9 ; Encounter f or immunization Z23 ; Osteoarthritis M19.90 ; [facility] (current) use of anticoagulants Z79.01 ; Cigarette nicotine dependence without complication F17.210 ; Acquired hypothyroidism E03.9 ; Morbid obesity, unspecified obesity type E66.01 and Irregular heart beats I49.9 [place] [address] [address] Jun, Osteoarthritis M19.90 [place] [address] [place] [id number] [address] [place] [address] May, Osteoarthritis M19.90 [place] [address] [place] [id number] [address] [place] [address] May, Urinary incontinence, unspec ified type R32 [place] [id number] [place] [address] May, [place] [address] [place] [id number] [address] [place] [address] Apr, Osteoarthritis M19.90 [place] [address] [place] [id number] [address] [place] [phone] Apr, [facility] (current) use of a nticoagulants Z79.01 [place] [address] [place] [id number] [address] [place] [phone] Apr, [place] [address] [place] [id number] [address] [place] [address] Apr, Osteoarthritis M19.90 [facility] [address] [id number] [address] [place] [phone] Mar, Diabetes E11.9 ; Hypothyroid ism, unspecified type E03.9 ; Osteoarthritis M19.90 ; High risk medication use Z79.899 ; Cigarette nicotine dependence without complication F17.210 and Morbid obesity, unspecified obesity type E66.01 [facility] [address] [id number] [address] [place] [address] Mar, Osteoarthritis M19.90 [facility] [address] [id number] [address] [place] [phone] December, Osteoarthritis M19.90 [facility] [address] [facility] [id number] [address] [place] [phone] December, [facility] [address] [facility] [id number] [address] [place] [phone] Oct, [facility] [address] [facility] [id number] [address] [place] [phone] Oct, [facility] [address] [facility] [id number] [address] [place] [id number] Aug, [facility] [address] [facility] [id number] [address] [place] [address] Jul, [facility] [address] [facility] [id number] [address] [place] [phone] Jul, [facility] [address] [facility] [id number] [address] [place] [id number] Jul, Diabetes E11.9 ; Encounter f or immunization Z23 ; Abnormal mammogram R92.8 ; Acquired hypothyroidism E03.9 ; High risk medication use Z79.899 ; Osteoarthritis M19.90 and Cigarette nicotine dependence without complication F17.210 [facility] [address] [facility] [id number] [address] [place] [phone] Jul, [facility] [address] [facility] [id number] [address] [place] [phone] Jun, Abnormal mammogram R92.8 [facility] [address] [id number] [address] [place] [phone] Apr, [facility] [address] [id number] [address] [place] [id number] Apr, [facility] [address] [id number] [address] [place] [phone] Mar, 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 [address] [id number] [address] [place] [phone] Jan, [facility] [address] [id number] [address] [place] [phone] December, [facility] [address] [id number] [address] [place] [phone] Nov, [facility] [address] [id number] [address] [place] [phone] Nov, [facility] [address] [id number] [address] [place] [phone] Oct, [facility] [address] [id number] [address] [place] [phone] Oct, [facility] [address] [id number] [address] [place] [phone] Oct, [facility] [address] [id number] [address] [place] [phone] Oct, [facility] [address] [id number] [address] [place] [phone] [address], [address] [facility] [address] [id number] [address] [place] [address], [place] [address] Oct, [facility] [address] [id number] [address] [place] [address], [place] [address] Sep, [facility] [address] [id number] [address] [place] [address], [place] [address] Sep, [facility] [address] [id number] [address] [place] [address], [place] [address] Sep, [facility] [address] [id number] [address] [place] [address], [place] [address] Sep, [facility] [address] [id number] [address] [place] [address], [place] [address] Aug, [facility] [address] [id number] [address] [place] [address], [place] [address] Aug, [facility] [address] [id number] [address] [place] [address], [place] [address] Aug, [facility] [address] [id number] [address] [place] [address], [place] [address] Aug, [facility] [address] [id number] [address] [place] [address], [place] [address] Aug, [facility] [address] [id number] [address] [place] [address], [place] [address] Aug, [facility] [address] [id number] [address] [place] [address], [place] [address] Jul, [facility] [address] [id number] [address] [place] [address], [place] [address] Jul, [facility] [address] [id number] [address] [place] [address], [place] [address] Jul, [facility] [address] [id number] [address] [place] [address], [place] [address] Jul, [facility] [address] [id number] [address] [place] [address], [place] [address] Jul, [facility] [address] [id number] [address] [place] [address], [place] [address] Jul, [facility] [address] [id number] [address] [place] [address], [place] [address] Jun, [facility] [address] [id number] [address] [place] [address], [place] [id number] Jun, [facility] [address] [id number] [address] [place] [address], [place] [id number] Jun, [facility] [address] [id number] [address] [place] [address], [place] [id number] Jun, [facility] [address] [id number] [address] [place] [address], [place] [id number] Jun, [facility] [address] [id number] [address] [place] [address], [place] [id number] Jun, [facility] [address] [id number] [address] [place] [address], [place] [id number] Jun, [facility] [address] [id number] [address] [place] [address], [place] [id number] Jun, [facility] [address] [id number] [address] [place] [address], [place] [address] Jun, [facility] [address] [id number] [address] [place] [address], [place] [id number] May, [facility] [address] [id number] [address] [place] [id number] May, [facility] [address] [id number] [address] [place] [address], [place] [id number] Apr, [facility] [address] [id number] [address] [place] [address], [place] [id number] Apr, [facility] [address] [id number] [address] [place] [address], [place] [id number] Apr, [facility] [address] [id number] [address] [place] [address], [place] [id number] Apr, 2013 [facility] [address] [id number] [facility] [place] [id number] 11 Apr, 2013 [facility] [address] [id number] [address] [place] [address], [place] [id number] Apr, 2013 [facility] [address] [id number] [address] [place] [address], [place] [id number] Apr, 2013 [facility] [address] [id number] [address] [place] [address], [place] [address] Apr, 2013 [facility] [address] [id number] [address] [place] [address], [place] [address] Apr, 2013 [facility] [address] [id number] [address] [place] [address], [place] [address] Apr, 2013 [facility] [address] [id number] [address] [place] [address], [place] [address] Mar, [facility] [address] [id number] [address] [place] [address], [place] [address] Mar, [facility] [address] [id number] [address] [place] [address], [place] [address] Mar, [facility] [address] [id number] [address] [place] [address], [place] [address] Mar, [facility] [address] [id number] [address] [place] [address], [place] [address] Mar, [facility] [address] [id number] [address] [place] [address], [place] [address] Mar, [facility] [address] [id number] [address] [place] [address], [place] [address] Feb, [facility] [address] [id number] [address] [place] [address], [place] [address] Feb, [facility] [address] [id number] [address] [place] [address], [place] [address] Feb, [facility] [address] [id number] [address] [place] [address], [place] [address] Feb, [facility] [address] [id number] [address] [place] [address], [place] [address] Jan, [facility] [address] [id number] [address] [place] [address], [place] [address] Jan, [facility] [address] [id number] [address] [place] [address], [place] [address] Jan, [facility] [address] [id number] [address] [place] [address], [place] [address] Jan, [facility] [address] [id number] [address] [place] [address], [place] [address] Oct, [facility] [address] [id number] [address] [place] [address], [place] [address] Oct, [facility] [address] [id number] [address] [place] [address], [place] [address] Sep, [facility] [address] [id number] [address] [place] [address], [place] [address] Sep, [facility] [address] [id number] [address] [place] [address], [place] [address] Sep, [facility] [address] [id number] [address] [place] [address], [place] [address] Sep, [facility] [address] [id number] [address] [place] [address], [place] [address] Aug, [facility] [address] [id number] [address] [place] [address], [place] [address] Aug, [facility] [address] [id number] [address] [place] [address], [place] [address] Aug, [facility] [address] [id number] [address] [place] [address], [place] [address] Aug, [facility] [address] [id number] [address] [place] [id number] 30 Jul, 2013 [facility] [address] [id number] [address] [place] [address], [place] [address] 30 Jul, 2013 [facility] [address] [id number] [address] [place] [address], [place] [address] Jul, [facility] [address] [id number] [address] [place] [address], [place] [address] Jul, [facility] [address] [id number] [address] [place] [address], [place] [address] Jul, [facility] [address] [id number] [address] [place] [address], [place] [address] Jul, [facility] [address] [id number] [address] [place] [address], [place] [address] Jun, [facility] [address] [id number] [address] [place] [address], [place] [address] Jun, [facility] [address] [id number] [address] [place] [address], [place] [address] Jun, [facility] [address] [id number] [address] [place] [id number] Jun, [facility] [address] [id number] [address] [place] [address], [place] [address] Jun, [facility] [address] [id number] [address] [place] [id number] Jun, [facility] [address] [id number] [address] [place] [address] May, [facility] [address] [id number] [address] [place] [address], [place] [address] May, [facility] [address] [id number] [address] [place] [address], [place] [address] May, [facility] [address] [id number] [address] [place] [address], [place] [address] May, [facility] [address] [id number] [address] [place] [address], [place] [address] May, [facility] [address] [id number] [address] [place] [address], [place] [address] May, [facility] [address] [id number] [address] [place] [address], [place] [address] May, [facility] [address] [id number] [address] [place] [address], [place] [address] May, [facility] [address] [id number] [address] [place] [address], [place] [address] Apr, [facility] [address] [id number] [address] [place] [address], [place] [address] Apr, [facility] [address] [id number] [address] [place] [address], [place] [address] Mar, [facility] [address] [id number] [address] [place] [address], [place] [address] Mar, [facility] [address] [id number] [address] [place] [address], [place] [address] Mar, [facility] [address] [id number] [address] [place] [address], [place] [address] Mar, [facility] [address] [id number] [address] [place] [address], [place] [address] Feb, [facility] [address] [id number] [address] [place] [address], [place] [address] Jan, [facility] [address] [id number] [address] [place] [address], [place] [address] December, [facility] [address] [id number] [address] [place] [address], [place] [address] December, [facility] [address] [id number] [address] [place] [address], [place] [address] December, [facility] [address] [id number] [address] [place] [address], [place] [address] Nov, [facility] [address] [id number] [address] [place] [address], [place] [address] Nov, [facility] [address] [id number] [address] [place] [address], [place] [address] 14 Sep, 2012 [facility] [address] [id number] [address] [place] [address], [place] [address] Sep, [facility] [address] [id number] [address] [place] [address], [place] [address] Sep, [facility] [address] [id number] [address] [place] [address], [place] [address] Sep, [facility] [address] [id number] [address] [place] [address], [place] [address] Aug, [facility] [address] [id number] [address] [place] [address], [place] [address] Aug, [facility] [address] [id number] [address] [place] [address], [place] [address] Aug, [facility] [address] [id number] [address] [place] [address], [place] [address] Aug, [facility] [address] [id number] [address] [place] [address], [place] [address] Jul, [facility] [address] [id number] [address] [place] [address], [place] [address] Jul, [facility] [address] [id number] [address] [place] [address], [place] [address] Jul, [facility] [address] [id number] [address] [place] [address], [place] [address] Jul, [facility] [address] [id number] [address] [place] [address], [place] [address] Jun, [facility] [address] [id number] [address] [place] [address], [place] [address] Jun, [facility] [address] [id number] [address] [place] [address], [place] [address] 08 Jun, 2012 [facility] [address] [id number] [address] [place] [address], [place] [address] Jun, [facility] [address] [id number] [address] [place] [address], [place] [address] May, [facility] [address] [id number] [address] [place] [address], [place] [address] May, [facility] [address] [id number] [address] [place] [address], [place] [address] May, [facility] [address] [id number] [address] [place] [address], [place] [address] May, [facility] [address] [id number] [address] [place] [address], [place] [address] May, [facility] [address] [id number] [address] [place] [address], [place] [address] 10 Apr, 2012 [facility] [address] [id number] [address] [place] [address], [place] [address] 08 Apr, 2012 [facility] [address] [id number] [address] [place] [address], [place] [address] 07 Apr, 2012 [facility] [address] [id number] [address] [place] [address], [place] [address] 06 Apr, 2012 [facility] [address] [id number] [address] [place] [address], [place] [address] Mar, [facility] [address] [id number] [address] [place] [address], [place] [address] Mar, [facility] [address] [id number] [address] [place] [address], [place] [address] Feb, [facility] [address] [id number] [address] [place] [address], [place] [address] Feb, [facility] [address] [id number] [address] [place] [address], [place] [address] Feb, [facility] [address] [id number] [address] [place] [address], [place] [address] Jan, [facility] [address] [id number] [address] [place] [address], [place] [address] Jan, [facility] [address] [id number] [address] [place] [address], [place] [address] December, [facility] [address] [id number] [address] [place] [address], [place] [address] December, [facility] [address] [id number] [address] [place] [address], [place] [address] Nov, [facility] [address] [id number] [address] [place] [address], [place] [address] Oct, [facility] [address] [id number] [address] [place] [address], [place] [address] Oct, [facility] [address] [id number] [address] [place] [address], [place] [address] Sep, [facility] [address] [id number] [address] [place] [address], [place] [address] Sep, [facility] [address] [id number] [address] [place] [address], [place] [address] Aug, [facility] [address] [id number] [address] [place] [address], [place] [address] Aug, [facility] [address] [id number] [address] [place] [address], [place] [address] Jul, [facility] [address] [id number] [address] [place] [address], [place] [address] Jul, [facility] [address] [id number] [address] [place] [address], [place] [address] Jul, [facility] [address] [id number] [address] [place] [address], [place] [address] Jun, [facility] [address] [id number] [address] [place] [id number] 07 Jun, 2011 [facility] [address] [id number] [address] [place] [address], [place] [address] 13 May, 2011 [facility] [address] [id number] [address] [place] [address] 11 May, 2011 [facility] [address] [id number] [address] [place] [address], [place] [address] 11 May, 2011 [facility] [address] [id number] [address] [place] [address] 09 Jul, 2010 [facility] [address] [id number] [address] [place] [address], [place] [address] 08 Jul, 2010 [facility] [address] [id number] [address] [place] [address], [place] [address] 15 Jun, 2010 [facility] [address] [id number] [address] [place] [address] May, [facility] [address] [id number] [address] [place] [address], [place] [address] May, [facility] [address] [id number] [address] [place] [address] 14 Aug, 2009 [facility] [address] [id number] [address] [place] [address] Jul, [facility] [address] [id number] [address] [place] [address] Jun, [facility] [address] [id number] [address] [place] [address] Jun, [facility] [address] [id number] [address] [place] [address] Jun, [facility] [address] [id number] [address] [place] [address] Jun, [facility] [address] [id number] [address] [place] [address] Jun, [facility] [address] [facility] [id number] [address] [place] [address] May, [facility] [address] [facility] [id number] [address] [place] [id number] Sep, IMMUNIZATIONS No Known Immunizations SOCIAL HISTORY [...]
--- OUTSIDE RECORDS SUMMARY | 2020-01-28 14:33 | XMS REPORT ---
Author Author Katarina RODRIGUEZ Organization [facility] Address [address] [place] [address] Care Team Providers Care Talent Acquisition Relationship Manager Name Role Phone GEORGINA RODRIGUEZ Unavailable PROBLEMS Type Condition ICD9-CM Code SHP37-GA Code Onset Dates Condition S tatus SNOMED Code Problem Osteoarthritis M19.90 Active 15783 5006 Problem Chronic obstructive pulmonary disease, unspecified COPD ty pe J44.9 Active 90145374 Problem Acquired hypothyroidism E03.9 Active 938055269 Problem Cigarette nicotine dependence without complication F17.210 Active 39365030 Problem Diabetes E11.9 Active 825035324 Problem High risk medication use Z79.899 Activ e 047910063 Problem Urinary incontinence, unspecified type R32 Active 407302727 Problem long-term (current) use of anticoagulants Z79.01 Active 512906485 Problem Morbid obesity, unspecified obesity type E66.01 Active 012019289 Problem Other chronic pain G89.29 Active 8 4566306 Problem History of cataract surgery Z98.49 Ac tive 350562325 Problem Type 2 diabetes mellitus wit h hyperglycemia, without long-term current use of insulin E11.65 Active 30305976 Problem Encounter for immunization Z23 Act essie 304526213 Problem Irregular heart beats I49.9 Active 677947320 Problem Other urinary incontinence N39.498 Act essie 387906673 Problem Essential hypertension I10 Active 32158581 Problem Chronic atrial fibrillation I48.2 Ac tive 312346037 ALLERGIES No Information ENCOUNTERS Encounter Location Date Diagnosis [facility] [address] [facility] [place] [id number] [address] [place] [address] Mar, Type 2 diabetes mellitus wit h hyperglycemia, without long-term current use of insulin E11.65 ; Chronic atrial fibrillation I48.2 and Morbid obesity E66.01 [facility] [address] [facility] [place] [id number] [address] [place] [address] Feb, Osteoarthritis M19.90 [facility] [address] [facility] [place] [id number] [address] [place] [phone] Feb, Chronic atrial fibrillation I48.2 [facility] [address] [facility] [place] [id number] [address] [place] [address] Feb, Hyperglycemia R73.9 ; Diabet es E11.9 ; Morbid obesity E66.01 ; Acquired hypothyroidism E03.9 ; Osteoarthritis M19.90 and High risk medication use Z79.899 [facility] [address] [id number] [address] [place] [address] Feb, Chronic atrial fibrillation I48.2 [facility] [address] [facility] [place] [id number] [address] [place] [address] Jan, Osteoarthritis M19.90 [facility] [address] [facility] [place] [id number] [address] [place] [address] Jan, Chronic atrial fibrillation I48.2 [facility] [address] [facility] [place] [id number] [address] [place] [address] Jan, Chronic atrial fibrillation I48.2 [facility] [address] [facility] [place] [id number] [address] [place] [address] Jan, Chronic atrial fibrillation I48.2 [facility] [address] [facility] [place] [id number] [address] [place] [phone] Jan, long-term (current) use of a nticoagulants Z79.01 [facility] [address] [facility] [place] [id number] [address] [place] [address] December, [facility] [address] [facility] [place] [id number] [address] [place] [address] December, [facility] [address] [facility] [place] [id number] [address] [place] [address] December, Osteoarthritis M19.90 [facility] [address] [facility] [place] [id number] [address] [place] [address] Nov, [facility] [address] [facility] [place] [id number] [address] [place] [address] Nov, Osteoarthritis M19.90 [facility] [address] [facility] [place] [id number] [address] [place] [address] Oct, Osteoarthritis M19.90 [facility] [address] [facility] [place] [id number] [address] [place] [address] Sep, Osteoarthritis M19.90 [facility] [address] [facility] [place] [id number] [address] [place] [address] Sep, exterminator termite (current) use of a nticoagulants Z79.01 ; BMI 45.0-49.9, adult Z68.42 ; Diabetes E11.9 ; Chronic atrial fibrillation I48.2 and Chronic obstructive pulmonary disease, unspecified COPD type J44.9 [facility] [address] [facility] [place] [id number] [address] [place] [address] Sep, Diabetes E11.9 ; long-term ( current) use of anticoagulants Z79.01 ; Chronic atrial fibrillation I48.2 ; Chronic obstructive pulmonary disease, unspecified COPD type J44.9 and BMI 45.0-49.9, adult Z68.42 [facility] [address] [facility] [place] [id number] [address] [place] [address] Aug, Osteoarthritis M19.90 [facility] [address] [facility] [place] [id number] [address] [place] [address] Aug, [facility] [address] [facility] [place] [id number] [address] [place] [address] Aug, exterminator termite (current) use of a nticoagulants Z79.01 ; BMI 45.0-49.9, adult Z68.42 ; Diabetes E11.9 and Chronic atrial fibrillation I48.2 [facility] [address] [facility] [place] [id number] [address] [place] [address] Aug, [facility] [address] [facility] [place] [id number] [address] [place] [address] Jul, Osteoarthritis M19.90 [facility] [address] [id number] [address] [place] [address] Jun, Osteoarthritis M19.90 [facility] [address] [id number] [address] [place] [address] Jun, exterminator termite (current) use of a nticoagulants Z79.01 [facility] [address] [id number] [address] [place] [address] Jun, Chronic atrial fibrillation I48.2 and long-term (current) use of anticoagulants Z79.01 [facility] [address] [id number] [address] [place] [address] Jun, Osteoarthritis M19.90 [facility] [address] [facility] [place] [id number] [address] [place] [address] May, Encounter for immunization Z 23 [facility] [address] [facility] [place] [id number] [address] [place] [address] May, long-term (current) use of a nticoagulants Z79.01 [facility] [address] [id number] [address] [place] [address] May, Osteoarthritis M19.90 [facility] [address] [facility] [place] [id number] [address] [place] [address] May, [facility] [address] [id number] [address] [place] [address] May, Diabetes E11.9 ; long-term ( current) use of anticoagulants Z79.01 ; Chronic atrial fibrillation I48.2 ; BMI 45.0-49.9, adult Z68.42 ; Osteoarthritis M19.90 ; Low back pain M54.5 and Other chronic pain G89.29 [facility] [address] [id number] [address] [place] [address] Apr, Chronic atrial fibrillation I48.2 [facility] [address] [facility] [place] [id number] [address] [place] [address] Apr, long-term (current) use of a nticoagulants Z79.01 [facility] [address] [id number] [address] [place] [phone] 07 Apr, 2018 Osteoarthritis M19.90 [facility] [address] [id number] [address] [place] [phone] 04 Apr, 2018 exterminator termite (current) use of a nticoagulants Z79.01 and Chronic atrial fibrillation I48.2 [facility] [address] [id number] [address] [place] [address] Mar, Osteoarthritis M19.90 [facility] [address] [id number] [address] [place] [id number] Feb, Osteoarthritis M19.90 [facility] [address] [facility] [place] [id number] [address] [place] [address] Jan, Osteoarthritis M19.90 [facility] [address] [facility] [place] [id number] [address] [place] [address] December, [facility] [address] [id number] [address] [place] [address] December, Osteoarthritis M19.90 [facility] [address] [facility] [place] [id number] [address] [place] [address] Nov, Diabetes E11.9 ; long-term ( current) use of anticoagulants Z79.01 ; Acquired hypothyroidism E03.9 ; Cigarette nicotine dependence without complication F17.210 ; Osteoarthritis M19.90 ; BMI 45.0-49.9, adult Z68.42 and Chronic atrial fibrillation I48.2 [facility] [address] [id number] [address] [place] [address] Nov, Osteoarthritis M19.90 [facility] [address] [id number] [address] [place] [address] Oct, Osteoarthritis M19.90 [facility] [address] [facility] [place] [id number] [address] [place] [address] Oct, long-term (current) use of a nticoagulants Z79.01 [facility] [address] [facility] [place] [id number] [address] [place] [address] Sep, Osteoarthritis M19.90 [facility] [address] [facility] [place] [id number] [address] [place] [address] Sep, [facility] [address] [facility] [place] [id number] [address] [place] [address] Aug, Osteoarthritis M19.90 [facility] [address] [facility] [place] [id number] [address] [place] [address] Jul, Osteoarthritis M19.90 [facility] [address] [facility] [place] [id number] [address] [place] [address] Jul, Osteoarthritis M19.90 [facility] [address] [facility] [place] [id number] [address] [place] [address] Jun, Diabetes E11.9 ; Encounter f or immunization Z23 ; 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.01 ; Chronic atrial fibrillation I48.2 ; Osteoarthritis M19.90 ; Tobacco abuse Z72.0 and Bug bite, initial encounter W57.XXXA [facility] [address] [facility] [place] [id number] [address] [place] [address] May, Osteoarthritis M19.90 [facility] [address] [facility] [place] [id number] [address] [place] [address] Apr, Osteoarthritis M19.90 [facility] [address] [facility] [place] [id number] [address] [place] [address] Mar, Chronic atrial fibrillation I48.2 [facility] [address] [facility] [place] [id number] [address] [place] [address] Mar, [facility] [address] [facility] [place] [id number] [address] [place] [address] Mar, Osteoarthritis M19.90 [facility] [address] [facility] [place] [id number] [address] [place] [address] Mar, exterminator termite (current) use of a nticoagulants Z79.01 and Chronic atrial fibrillation I48.2 [facility] [address] [id number] [address] [place] [address] Mar, Chronic atrial fibrillation I48.2 and long-term (current) use of anticoagulants Z79.01 [facility] [address] [id number] [address] [place] [address] Mar, long-term (current) use of a nticoagulants Z79.01 [facility] [address] [id number] [address] [place] [phone] Mar, long-term (current) use of a nticoagulants Z79.01 [facility] [address] [id number] [address] [place] [address] Mar, Osteoarthritis M19.90 [facility] [address] [facility] [place] [id number] [address] [place] [address] Feb, Encounter for screening mamm ogram for malignant neoplasm of breast Z12.31 [facility] [address] [id number] [address] [place] [address] Feb, Osteoarthritis M19.90 [facility] [address] [id number] [address] [place] [address] Jan, [facility] [address] [id number] [address] [place] [address] Jan, long-term (current) use of a nticoagulants Z79.01 ; Diabetes E11.9 ; Osteoarthritis M19.90 and Breast cancer screening Z12.39 [facility] [address] [id number] [address] [place] [address] Jan, Osteoarthritis M19.90 [facility] [address] [id number] [address] [place] [address] Jan, Osteoarthritis M19.90 [facility] [address] [facility] [place] [id number] [address] [place] [address] Jan, [facility] [address] [id number] [address] [place] [address] December, Osteoarthritis M19.90 [facility] [address] [id number] [address] [place] [address] December, Osteoarthritis M19.90 [facility] [address] [id number] [place] [id number] Nov, [facility] [address] [id number] [address] [place] [address] Nov, [facility] [address] [id number] [address] [place] [address] Nov, [facility] [address] [id number] [address] [place] [address] Nov, Diabetes E11.9 [facility] [address] [id number] [address] [place] [address] Nov, [facility] [address] [facility] [place] [id number] [address] [place] [address] Oct, Osteoarthritis M19.90 [facility] [address] [id number] [address] [place] [address] Oct, Osteoarthritis M19.90 ; 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.01 ; Diabetes E11.9 ; Cigarette nicotine dependence without complication F17.210 and Chronic atrial fibrillation I48.2 [facility] [address] [id number] [address] [place] [address] Aug, [facility] [address] [id number] [address] [place] [address] Aug, long-term (current) use of a nticoagulants Z79.01 [facility] [address] [id number] [address] [place] [address] Aug, [facility] [address] [id number] [facility] [id number] Aug, [facility] [address] [id number] [address] [place] [address] Aug, [facility] [address] [facility] [place] [id number] [address] [place] [address] Aug, [facility] [id number] [place] [id number] Aug, [facility] [address] [place] [id number] Aug Osteoarthritis M19.90 and Essential hypertension I10 [place] [address] [place] [id number] [address] [place] [address] Aug, Other urinary incontinence N 39.498 [place] [address] [facility] [place] [id number] [address] [place] [address] Jul, Osteoarthritis M19.90 [place] [address] [address] Jun, Diabetes E11.9 ; Encounter f or immunization Z23 ; Osteoarthritis M19.90 ; long-term (current) use of anticoagulants Z79.01 ; Cigarette nicotine dependence without complication F17.210 ; Acquired hypothyroidism E03.9 ; Morbid obesity, unspecified obesity type E66.01 and Irregular heart beats I49.9 [place] [id number] [facility] [place] [id number] [address] [place] [address] Jun, Osteoarthritis M19.90 [facility] [address] [place] [id number] [address] [place] [address] May, Osteoarthritis M19.90 [facility] [address] [place] [id number] [address] [place] [address] May, Urinary incontinence, unspec ified type R32 [facility] [address] [facility] [place] [id number] [address] [place] [address] May, [place] [address] [facility] [place] [id number] [address] [place] [address] Apr, Osteoarthritis M19.90 [facility] [address] [place] [id number] [address] [place] [address] Apr, long-term (current) use of a nticoagulants Z79.01 [facility] [address] [facility] [place] [id number] [address] [place] [address] Apr, [facility] [address] [facility] [place] [id number] [address] [place] [address] Apr, Osteoarthritis M19.90 [facility] [address] [place] [id number] [address] [place] [address] Mar, Diabetes E11.9 ; Hypothyroid ism, unspecified type E03.9 ; Osteoarthritis M19.90 ; High risk medication use Z79.899 ; Cigarette nicotine dependence without complication F17.210 and Morbid obesity, unspecified obesity type E66.01 [place] [address] [facility] [place] [id number] [address] [place] [address] Mar, Osteoarthritis M19.90 [place] [address] [place] [id number] [address] [place] [address] December, Osteoarthritis M19.90 [place] [address] [facility] [id number] [address] [place] [address] December, [place] [address] [place] [id number] [address] [place] [phone] Oct, [place] [address] [facility] [facility] [id number] [address] [place] [phone] Oct, [place] [address] [facility] [id number] [address] [place] [id number] Aug, [facility] [address] [place] [id number] [address] [place] [phone] Jul, [place] [address] [facility] [facility] [id number] [address] [place] [address] Jul, [place] [address] [place] [id number] [address] [place] [address] Jul, Diabetes E11.9 ; Encounter f or immunization Z23 ; Abnormal mammogram R92.8 ; Acquired hypothyroidism E03.9 ; High risk medication use Z79.899 ; Osteoarthritis M19.90 and Cigarette nicotine dependence without complication F17.210 [facility] [address] [id number] [address] [place] [address] Jul, [facility] [address] [id number] [address] [place] [phone] Jun, Abnormal mammogram R92.8 [facility] [address] [id number] [address] [place] [address] Apr, [facility] [address] [id number] [address] [place] [phone] Apr, [facility] [address] [id number] [address] [place] [address] Mar, [facility] [address] [id number] [address] [place] [id number] Mar, Current use of exterminator termite ant 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 V58.61 [facility] [address] [id number] [address] [place] [address] Feb, [facility] [address] [id number] [address] [place] [address] Jan, [facility] [address] [id number] [address] [place] [phone] December, [facility] [address] [id number] [address] [place] [phone] Nov, [facility] [address] [id number] [address] [place] [phone] Nov, [facility] [address] [id number] [address] [place] [phone] Oct, [facility] [address] [id number] [address] [place] [id number] Oct, [facility] [address] [id number] [address] [place] [id number] Oct, [facility] [address] [id number] [address] [place] [id number] Oct, [facility] [address] [id number] [address] [place] [address], [place] [id number] Oct, [facility] [address] [id number] [address] [place] [address], [place] [id number] Oct, [facility] [address] [id number] [address] [place] [address], [place] [id number] Sep, [facility] [address] [id number] [address] [place] [address], [place] [address] Sep, [facility] [address] [id number] [address] [place] [address], [place] [id number] Sep, [facility] [address] [id number] [address] [place] [address], [place] [id number] Sep, [facility] [address] [id number] [address] [place] [address], [place] [id number] Aug, [facility] [address] [id number] [address] [place] [address], [place] [id number] Aug, [facility] [address] [id number] [address] [place] [address], [place] [id number] Aug, [facility] [address] [id number] [address] [place] [address], [place] [id number] Aug, [facility] [address] [id number] [address] [place] [address], [place] [id number] Aug, [facility] [address] [id number] [address] [place] [address], [place] [id number] Aug, [facility] [address] [id number] [address] [place] [address], [place] [id number] Jul, [facility] [address] [id number] [address] [place] [address], [place] [address] Jul, [facility] [address] [id number] [address] [place] [address], [place] [address] Jul, [facility] [address] [id number] [address] [place] [address], [place] [address] Jul, [facility] [address] [id number] [address] [place] [address], [place] [address] Jul, [facility] [address] [id number] [address] [place] [address], [place] [address] Jul, [facility] [address] [id number] [address] [place] [address], [place] [address] Jun, [facility] [address] [id number] [address] [place] [address], [place] [address] Jun, [facility] [address] [id number] [address] [place] [address], [place] [address] Jun, [facility] [address] [id number] [address] [place] [address], [place] [address] Jun, [facility] [address] [id number] [address] [place] [address], [place] [address] Jun, [facility] [address] [id number] [address] [place] [address], [place] [address] Jun, [facility] [address] [id number] [address] [place] [address], [place] [address] Jun, [facility] [address] [id number] [address] [place] [address], [place] [address] Jun, [facility] [address] [id number] [address] [place] [address], [place] [address] Jun, [facility] [address] [id number] [address] [place] [address], [place] [address] May, [facility] [address] [id number] [address] [place] [address], [place] [address] May, [facility] [address] [id number] [address] [place] [address], [place] [address] Apr, [facility] [address] [id number] [address] [place] [address], [place] [address] Apr, 2013 [facility] [address] [id number] [facility] [place] [address] Apr, 2013 [facility] [address] [id number] [address] [place] [address], [place] [address] Apr, 2013 [facility] [address] [id number] [address] [place] [address], [place] [address] Apr, 2013 [facility] [address] [id number] [address] [place] [address], [place] [address] Apr, 2013 [facility] [address] [id number] [address] [place] [address], [place] [address] Apr, 2013 [facility] [address] [id number] [address] [place] [address], [place] [address] Apr, [facility] [address] [id number] [address] [place] [address], [place] [address] Apr, [facility] [address] [id number] [address] [place] [address], [place] [address] Apr, [facility] [address] [id number] [address] [place] [address], [place] [address] Mar, [facility] [address] [id number] [address] [place] [address], [place] [address] Mar, [facility] [address] [id number] [address] [place] [address], [place] [address] Mar, [facility] [address] [id number] [address] [place] [address], [place] [address] Mar, [facility] [address] [id number] [address] [place] [address], [place] [address] Mar, [facility] [address] [id number] [address] [place] [address], [place] [address] Mar, [facility] [address] [id number] [address] [place] [address], [place] [address] Feb, [facility] [address] [id number] [address] [place] [address], [place] [address] Feb, [facility] [address] [id number] [address] [place] [address], [place] [address] Feb, [facility] [address] [id number] [address] [place] [address], [place] [address] Feb, [facility] [address] [id number] [address] [place] [address], [place] [address] Jan, [facility] [address] [id number] [address] [place] [address], [place] [address] Jan, [facility] [address] [id number] [address] [place] [address], [place] [address] Jan, [facility] [address] [id number] [address] [place] [address], [place] [address] Jan, [facility] [address] [id number] [address] [place] [address], [place] [address] Oct, [facility] [address] [id number] [address] [place] [address], [place] [address] Oct, [facility] [address] [id number] [address] [place] [address], [place] [address] Sep, [facility] [address] [id number] [address] [place] [address], [place] [address] Sep, [facility] [address] [id number] [address] [place] [address], [place] [address] Sep, [facility] [address] [id number] [address] [place] [address], [place] [address] Sep, [facility] [address] [id number] [address] [place] [address], [place] [address] Aug, [facility] [address] [id number] [address] [place] [address], [place] [address] Aug, [facility] [address] [id number] [address] [place] [address] [address] Aug, [facility] [address] [id number] [address] [place] [address], [place] [address] Aug, [facility] [address] [id number] [address] [place] [address], [place] [address] 30 Jul, 2013 [facility] [address] [id number] [address] [place] [address], [place] [address] 30 Jul, 2013 [facility] [address] [id number] [address] [place] [address], [place] [address] Jul, [facility] [address] [id number] [address] [place] [address], [place] [address] Jul, [facility] [address] [id number] [address] [place] [address], [place] [address] Jul, [facility] [address] [id number] [address] [place] [address], [place] [address] Jul, [facility] [address] [id number] [address] [place] [address], [place] [address] Jun, [facility] [address] [id number] [address] [place] [address], [place] [address] Jun, [facility] [address] [id number] [address] [place] [address], [place] [address] Jun, [facility] [address] [id number] [address] [place] [address], [place] [address] Jun, [facility] [address] [id number] [address] [place] [address] Jun, [facility] [address] [id number] [address] [place] [address], [place] [address] Jun, [facility] [address] [id number] [address] [place] [address], [place] [address] May, [facility] [address] [id number] [address] [place] [address], [place] [address] May, [facility] [address] [id number] [address] [place] [address], [place] [address] May, [facility] [address] [id number] [address] [place] [address], [place] [address] May, [facility] [address] [id number] [address] [place] [address], [place] [address] May, [facility] [address] [id number] [address] [place] [address], [place] [address] May, [facility] [address] [id number] [address] [place] [address], [place] [address] May, [facility] [address] [id number] [address] [place] [address], [place] [address] May, [facility] [address] [id number] [address] [place] [address], [place] [address] Apr, [facility] [address] [id number] [address] [place] [address], [place] [address] Apr, [facility] [address] [id number] [address] [place] [address], [place] [address] Mar, [facility] [address] [id number] [address] [place] [address], [place] [address] Mar, [facility] [address] [id number] [address] [place] [address], [place] [address] Mar, [facility] [address] [id number] [address] [place] [address], [place] [address] Mar, [facility] [address] [id number] [address] [place] [address], [place] [address] Feb, [facility] [address] [id number] [address] [place] [address], [place] [address] Jan, [facility] [address] [id number] [address] [place] [address], [place] [address] December, [facility] [address] [id number] [address] [place] [address], [place] [address] December, [facility] [address] [id number] [address] [place] [address], [place] [address] December, [facility] [address] [id number] [address] [place] [address], [place] [address] Nov, [facility] [address] [id number] [address] [place] [address], [place] [address] Nov, [facility] [address] [id number] [address] [place] [address], [place] [address] Sep, [facility] [address] [id number] [address] [place] [address], [place] [address] Sep, [facility] [address] [id number] [address] [place] [address], [place] [address] Sep, [facility] [address] [id number] [address] [place] [address], [place] [address] Sep, [facility] [address] [id number] [address] [place] [address], [place] [address] Aug, [facility] [address] [id number] [address] [place] [address], [place] [address] Aug, [facility] [address] [id number] [address] [place] [address], [place] [address] Aug, [facility] [address] [id number] [address] [place] [address], [place] [address] Aug, [facility] [address] [id number] [address] [place] [address], [place] [address] Jul, [facility] [address] [id number] [address] [place] [address], [place] [address] Jul, [facility] [address] [id number] [address] [place] [address], [place] [address] Jul, [facility] [address] [id number] [address] [place] [address], [place] [address] Jul, [facility] [address] [id number] [address] [place] [address], [place] [address] 08 Jun, 2012 [facility] [address] [id number] [address] [place] [address], [place] [address] Jun, [facility] [address] [id number] [address] [place] [address], [place] [address] Jun, [facility] [address] [id number] [address] [place] [address], [place] [address] Jun, [facility] [address] [id number] [address] [place] [address], [place] [address] May, [facility] [address] [id number] [address] [place] [address], [place] [address] May, [facility] [address] [id number] [address] [place] [address], [place] [address] May, [facility] [address] [id number] [address] [place] [address], [place] [address] May, [facility] [address] [id number] [address] [place] [address], [place] [address] May, [facility] [address] [id number] [address] [place] [address], [place] [address] 10 Apr, 2012 [facility] [address] [id number] [address] [place] [address], [place] [address] 08 Apr, 2012 [facility] [address] [id number] [address] [place] [address], [place] [address] 07 Apr, 2012 [facility] [address] [id number] [address] [place] [address], [place] [address] 06 Apr, 2012 [facility] [address] [id number] [address] [place] [address], [place] [address] Mar, [facility] [address] [id number] [address] [place] [address], [place] [address] Mar, [facility] [address] [id number] [address] [place] [address], [place] [address] Feb, [facility] [address] [id number] [address] [place] [address], [place] [address] Feb, [facility] [address] [id number] [address] [place] [address], [place] [address] Feb, [facility] [address] [id number] [address] [place] [address], [place] [address] Jan, [facility] [address] [id number] [address] [place] [address], [place] [address] Jan, [facility] [address] [id number] [address] [place] [address], [place] [address] December, [facility] [address] [id number] [address] [place] [address], [place] [address] December, [facility] [address] [id number] [address] [place] [address], [place] [address] Nov, [facility] [address] [id number] [address] [place] [address], [place] [address] Oct, [facility] [address] [id number] [address] [place] [address], [place] [address] Oct, [facility] [address] [id number] [address] [place] [address], [place] [address] Sep, [facility] [address] [id number] [address] [place] [address], [place] [address] Sep, [facility] [address] [id number] [address] [place] [address], [place] [address] Aug, [facility] [address] [id number] [address] [place] [address], [place] [address] Aug, [facility] [address] [id number] [address] [place] [address], [place] [address] Jul, [facility] [address] [id number] [address] [place] [address], [place] [address] Jul, [facility] [address] [id number] [address] [place] [address], [place] [address] 09 Jul, 2011 [facility] [address] [id number] [address] [place] [address], [place] [address] 07 Jun, 2011 [facility] [address] [id number] [address] [place] [address], [place] [address] 07 Jun, 2011 [facility] [address] [id number] [address] [place] [address], [place] [address] 13 May, 2011 [facility] [address] [id number] [address] [place] [address], [place] [address] 11 May, 2011 [facility] [address] [id number] [address] [place] [address], [place] [address] May, [facility] [address] [id number] [address] [place] [address] 09 Jul, 2010 [facility] [address] [id number] [address] [place] [address], [place] [address] Jul, [facility] [address] [id number] [address] [place] [id number] 15 Jun, 2010 [facility] [address] [id number] [address] [place] [address], [place] [address] May, [facility] [address] [id number] [address] [place] [address] May, [facility] [address] [id number] [address] [place] [id number] 14 Aug, 2009 [facility] [address] [id number] [address] [place] [address] Jul, [facility] [address] [id number] [address] [place] [address], [place] [address] Jun, [facility] [address] [id number] [address] [place] [address] Jun, [facility] [address] [id number] [address] [place] [address] Jun, [facility] [address] [id number] [address] [place] [id number] Jun, [facility] [address] [facility] [place] [id number] [address] [place] [id number] Jun, [facility] [address] [facility] [place] [id number] [address] [place] [id number] May, [facility] [address] [facility] [place] [id number] [address] [place] [address] Sep, IMMUNIZATIONS No Known Immunizations SOCIAL HISTORY Never Assessed REASON FOR VISIT PLAN OF CARE VITAL SIGNS MEDICATIONS No Known Medications RESULTS No Results PROCEDURES Procedure Date Ordered Result Body Site PROTHROMBIN TIME May 02, 2014 INSTRUCTIONS MEDICATIONS ADMINISTERED No Known Medications [...]
--- OUTSIDE RECORDS SUMMARY | 2020-01-28 14:34 | XMS REPORT ---
Author Author Katarina RODRIGUEZ Organization [facility] Address [address] [place] [address] Care Team Providers Care Interlocking Installer Name Role Phone GEORGINA RODRIGUEZ Unavailable PROBLEMS Type Condition ICD9-CM Code HWQ64-HE Code Onset Dates Condition S tatus SNOMED Code Problem Chronic obstructive pulmonary disease, unspecified COPD ty pe J44.9 Active 62853105 Problem Cigarette nicotine dependence without complication F17.210 Active 68335394 Problem Osteoarthritis M19.90 Active 15822 5006 Problem High risk medication use Z79.899 Activ e 655665623 Problem Acquired hypothyroidism E03.9 Active 704148785 Problem History of cataract surgery Z98.49 Ac tive 711469873 Problem Urinary incontinence, unspecified type R32 Active 194143380 Problem detention (current) use of anticoagulants Z79.01 Active 298161406 Problem Chronic atrial fibrillation I48.2 Ac tive 075330492 Problem Encounter for immunization Z23 Act essie 155250204 Problem Other chronic pain G89.29 Active 8 9347271 Problem Diabetes E11.9 Active 750256348 Problem Morbid obesity, unspecified obesity type E66.01 Active 593883563 Problem Irregular heart beats I49.9 Active 673053023 Problem Other urinary incontinence N39.498 Act essie 523442922 Problem Essential hypertension I10 Active 73200848 ALLERGIES No Information ENCOUNTERS Encounter Location Date Diagnosis [facility] [address] [facility] [id number] [address] [place] [phone] Feb, [facility] [address] [facility] [id number] [address] [place] [phone] Feb, Chronic atrial fibrillation I48.2 [facility] [address] [facility] [id number] [address] [place] [phone] Jan, Osteoarthritis M19.90 [facility] [address] [facility] [id number] [address] [place] [id number] Jan, Chronic atrial fibrillation I48.2 [facility] [address] [id number] [address] [place] [phone] Jan, Chronic atrial fibrillation I48.2 [facility] [address] [facility] [id number] [address] [place] [phone] Jan, Chronic atrial fibrillation I48.2 [facility] [address] [id number] [address] [place] [phone] Jan, 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 [facility] [address] [id number] [address] [place] [phone] December, [facility] [address] [id number] [address] [place] [phone] December, [facility] [address] [facility] [id number] [address] [place] [phone] December, Osteoarthritis M19.90 [facility] [address] [id number] [address] [place] [address] Nov, [facility] [address] [facility] [id number] [address] [place] [phone] Nov, Osteoarthritis M19.90 [facility] [address] [facility] [id number] [address] [place] [address] Oct, Osteoarthritis M19.90 [facility] [address] [id number] [address] [place] [address] Sep, Osteoarthritis M19.90 [facility] [address] [facility] [id number] [address] [place] [address] Sep, detention (current) use of a nticoagulants Z79.01 ; BMI 45.0-49.9, adult Z68.42 ; Diabetes E11.9 ; Chronic atrial fibrillation I48.2 and Chronic obstructive pulmonary disease, unspecified COPD type J44.9 [facility] [address] [facility] [id number] [address] [place] [id number] 04 Sep, 2018 Diabetes E11.9 ; 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 ; Chronic atrial fibrillation I48.2 ; Chronic obstructive pulmonary disease, unspecified COPD type J44.9 and BMI 45.0-49.9, adult Z68.42 [facility] [address] [facility] [id number] [address] [place] [phone] Aug, Osteoarthritis M19.90 [facility] [address] [facility] [id number] [address] [place] [phone] Aug, [place] [address] [facility] [id number] [address] [place] [phone] Aug, 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 ; BMI 45.0-49.9, adult Z68.42 ; Diabetes E11.9 and Chronic atrial fibrillation I48.2 [facility] [address] [facility] [id number] [address] [place] [address] Aug, [facility] [address] [facility] [id number] [address] [place] [address] Jul, Osteoarthritis M19.90 [facility] [address] [facility] [id number] [address] [place] [address] Jun, Osteoarthritis M19.90 [facility] [address] [facility] [id number] [address] [place] [phone] Jun, detention (current) use of a nticoagulants Z79.01 [facility] [address] [facility] [id number] [address] [place] [address] Jun, Chronic atrial fibrillation I48.2 and 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 [facility] [address] [facility] [id number] [address] [place] [address] Jun, Osteoarthritis M19.90 [facility] [address] [facility] [id number] [address] [place] [phone] May, Encounter for immunization Z 23 [facility] [address] [id number] [address] [place] [phone] 17 May, 2018 detention (current) use of a nticoagulants Z79.01 [facility] [address] [id number] [address] [place] [address] May, Osteoarthritis M19.90 [facility] [address] [facility] [id number] [address] [place] [id number] May, [facility] [address] [facility] [id number] [address] [place] [address] May, Diabetes E11.9 ; 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 ; Chronic atrial fibrillation I48.2 ; BMI 45.0-49.9, adult Z68.42 ; Osteoarthritis M19.90 ; Low back pain M54.5 and Other chronic pain G89.29 [place] [address] [facility] [id number] [address] [place] [phone] 20 Apr, 2018 Chronic atrial fibrillation I48.2 [place] [address] [facility] [id number] [address] [place] [id number] 13 Apr, 2018 detention (current) use of a nticoagulants Z79.01 [facility] [address] [id number] [address] [place] [phone] 07 Apr, 2018 Osteoarthritis M19.90 [facility] [address] [facility] [id number] [address] [place] [phone] 04 Apr, 2018 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 and Chronic atrial fibrillation I48.2 [facility] [address] [id number] [address] [place] [address] Mar, Osteoarthritis M19.90 [facility] [address] [facility] [id number] [address] [place] [address] Feb, Osteoarthritis M19.90 [facility] [address] [facility] [id number] [address] [place] [phone] Jan, Osteoarthritis M19.90 [facility] [address] [facility] [id number] [address] [place] [phone] December, [facility] [address] [facility] [id number] [address] [place] [phone] December, Osteoarthritis M19.90 [facility] [address] [place] [id number] [address] [place] [address] Nov, Diabetes E11.9 ; 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 ; Acquired hypothyroidism E03.9 ; Cigarette nicotine dependence without complication F17.210 ; Osteoarthritis M19.90 ; BMI 45.0-49.9, adult Z68.42 and Chronic atrial fibrillation I48.2 [facility] [address] [facility] [id number] [address] [place] [address] Nov, Osteoarthritis M19.90 [facility] [address] [facility] [id number] [address] [place] [id number] Oct, Osteoarthritis M19.90 [facility] [address] [facility] [id number] [address] [place] [phone] Oct, 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 [facility] [address] [facility] [id number] [address] [place] [address] Sep, Osteoarthritis M19.90 [facility] [address] [facility] [id number] [address] [place] [id number] Sep, [facility] [address] [facility] [id number] [address] [place] [phone] Aug, Osteoarthritis M19.90 [facility] [address] [facility] [id number] [address] [place] [phone] Jul, Osteoarthritis M19.90 [facility] [address] [facility] [id number] [address] [place] [address] Jul, Osteoarthritis M19.90 [facility] [address] [place] [id number] [address] [place] [address] Jun, Diabetes E11.9 ; Encounter f or immunization Z23 ; detention (current) use of anticoagulants Z79.01 ; Chronic atrial fibrillation I48.2 ; Osteoarthritis M19.90 ; Tobacco abuse Z72.0 and Bug bite, initial encounter W57.XXXA [facility] [address] [id number] [address] [place] [address] May, Osteoarthritis M19.90 [facility] [address] [id number] [address] [place] [phone] Apr, Osteoarthritis M19.90 [place] [address] [id number] [address] [place] [id number] Mar, Chronic atrial fibrillation I48.2 [place] [address] [id number] [address] [place] [phone] Mar, [place] [address] [id number] [address] [place] [address] Mar, Osteoarthritis M19.90 [place] [address] [id number] [address] [place] [phone] Mar, detention (current) use of a nticoagulants Z79.01 and Chronic atrial fibrillation I48.2 [place] [address] [id number] [address] [place] [phone] Mar, Chronic atrial fibrillation I48.2 and 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 [place] [address] [id number] [address] [place] [address] Mar, detention (current) use of a nticoagulants Z79.01 [place] [address] [id number] [address] [place] [phone] Mar, 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 [facility] [address] [id number] [address] [place] [address] Mar, Osteoarthritis M19.90 [facility] [address] [id number] [address] [place] [phone] Feb, Encounter for screening mamm ogram for malignant neoplasm of breast Z12.31 [facility] [address] [facility] [id number] [address] [place] [phone] Feb, Osteoarthritis M19.90 [facility] [address] [facility] [id number] [address] [place] [phone] Jan, [facility] [address] [facility] [id number] [address] [place] [id number] Jan, 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 ; Diabetes E11.9 ; Osteoarthritis M19.90 and Breast cancer screening Z12.39 [facility] [address] [facility] [id number] [address] [place] [phone] Jan, Osteoarthritis M19.90 [facility] [address] [facility] [id number] [address] [place] [id number] Jan, Osteoarthritis M19.90 [facility] [address] [facility] [id number] [address] [place] [phone] Jan, [facility] [address] [facility] [id number] [address] [place] [address] December, Osteoarthritis M19.90 [facility] [address] [facility] [id number] [address] [place] [address] December, Osteoarthritis M19.90 [facility] [id number] [place] [id number] Nov, [facility] [address] [facility] [id number] [address] [place] [phone] Nov, [facility] [address] [facility] [id number] [address] [place] [phone] Nov, [facility] [address] [facility] [id number] [address] [place] [phone] Nov, Diabetes E11.9 [facility] [address] [facility] [id number] [address] [place] [address] Nov, [facility] [address] [facility] [id number] [address] [place] [phone] Oct, Osteoarthritis M19.90 [facility] [address] [facility] [id number] [address] [place] [id number] Oct, Osteoarthritis M19.90 ; detention (current) use of anticoagulants Z79.01 ; Diabetes E11.9 ; Cigarette nicotine dependence without complication F17.210 and Chronic atrial fibrillation I48.2 [facility] [address] [facility] [id number] [address] [place] [phone] Aug, [facility] [address] [facility] [id number] [address] [place] [phone] Aug, 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 [facility] [address] [facility] [id number] [address] [place] [phone] Aug, [facility] [address] [id number] [id number] Aug, [facility] [address] [facility] [id number] [address] [place] [id number] Aug, [facility] [address] [facility] [id number] [address] [place] [phone] Aug, [facility] [address] [id number] [id number] Aug, [facility] [address] [place] [id number] Aug Osteoarthritis M19.90 and Essential hypertension I10 [facility] [address] [facility] [id number] [address] [place] [address] Aug, Other urinary incontinence N 39.498 [facility] [address] [facility] [id number] [address] [place] [address] Jul, Osteoarthritis M19.90 [facility] [address] [facility] [id number] [address] [place] [address] Jun, Diabetes E11.9 ; Encounter f or immunization Z23 ; Osteoarthritis M19.90 ; 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 ; Cigarette nicotine dependence without complication F17.210 ; Acquired hypothyroidism E03.9 ; Morbid obesity, unspecified obesity type E66.01 and Irregular heart beats I49.9 [facility] [address] [facility] [id number] [address] [place] [address] Jun, Osteoarthritis M19.90 [facility] [address] [facility] [id number] [address] [place] [id number] May, Osteoarthritis M19.90 [place] [address] [facility] [id number] [address] [place] [phone] May, Urinary incontinence, unspec ified type R32 [facility] [address] [facility] [id number] [address] [place] [phone] May, [facility] [address] [facility] [id number] [address] [place] [address] Apr, Osteoarthritis M19.90 [facility] [address] [facility] [id number] [address] [place] [address] Apr, detention (current) use of a nticoagulants Z79.01 [facility] [address] [facility] [id number] [address] [place] [id number] Apr, [facility] [address] [facility] [id number] [address] [place] [address] Apr, Osteoarthritis M19.90 [facility] [address] [facility] [id number] [address] [place] [address] Mar, Diabetes E11.9 ; Hypothyroid ism, unspecified type E03.9 ; Osteoarthritis M19.90 ; High risk medication use Z79.899 ; Cigarette nicotine dependence without complication F17.210 and Morbid obesity, unspecified obesity type E66.01 [facility] [address] [facility] [id number] [address] [place] [phone] Mar, Osteoarthritis M19.90 [facility] [address] [facility] [id number] [address] [place] [phone] December, Osteoarthritis M19.90 [facility] [address] [facility] [id number] [address] [place] [address] December, [facility] [address] [facility] [id number] [address] [place] [phone] Oct, [facility] [address] [facility] [id number] [address] [place] [phone] Oct, [facility] [address] [facility] [id number] [address] [place] [id number] Aug, [facility] [address] [facility] [id number] [address] [place] [phone] Jul, [facility] [address] [place] [id number] [address] [place] [phone] Jul, [facility] [address] [facility] [id number] [address] [place] [phone] Jul, Diabetes E11.9 ; Encounter f or immunization Z23 ; Abnormal mammogram R92.8 ; Acquired hypothyroidism E03.9 ; High risk medication use Z79.899 ; Osteoarthritis M19.90 and Cigarette nicotine dependence without complication F17.210 [facility] [address] [facility] [id number] [address] [place] [id number] Jul, [facility] [address] [facility] [id number] [address] [place] [phone] Jun, Abnormal mammogram R92.8 [facility] [address] [facility] [id number] [address] [place] [phone] Apr, [facility] [address] [facility] [id number] [address] [place] [id number] Apr, [facility] [address] [facility] [id number] [address] [place] [phone] Mar, [facility] [address] [facility] [id number] [address] [place] [phone] Mar, Current use of fdc ant 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 V58.61 [facility] [address] [id number] [address] [place] [phone] Feb, [facility] [address] [id number] [address] [place] [phone] Jan, [facility] [address] [id number] [address] [place] [phone] December, [facility] [address] [id number] [address] [place] [phone] Nov, [facility] [address] [id number] [address] [place] [phone] Nov, [facility] [address] [id number] [address] [place] [phone] Oct, [facility] [address] [id number] [address] [place] [phone] Oct, [facility] [address] [id number] [address] [place] [phone] Oct, [facility] [address] [id number] [address] [place] [phone] Oct, [facility] [address] [id number] [address] [place] [phone] Oct, [facility] [address] [id number] [address] [place] [phone] Oct, [facility] [address] [id number] [address] [place] [phone] Sep, [facility] [address] [id number] [address] [place] [phone] Sep, [facility] [address] [id number] [address] [place] [phone] Sep, [facility] [address] [id number] [address] [place] [phone] Sep, [facility] [address] [id number] [address] [place] [address], [place] [address] Aug, [facility] [address] [id number] [address] [place] [address], [place] [address] Aug, [facility] [address] [id number] [address] [place] [address], [place] [address] Aug, [facility] [address] [id number] [address] [place] [address], [place] [address] Aug, [facility] [address] [id number] [address] [place] [address], [place] [address] Aug, [facility] [address] [id number] [address] [place] [address], [place] [address] Aug, [facility] [address] [id number] [address] [place] [address], [place] [address] Jul, [facility] [address] [id number] [address] [place] [address], [place] [address] Jul, [facility] [address] [id number] [address] [place] [address], [place] [address] Jul, [facility] [address] [id number] [address] [place] [address], [place] [address] Jul, [facility] [address] [id number] [address] [place] [address], [place] [address] Jul, [facility] [address] [id number] [address] [place] [address] Jul, [facility] [address] [id number] [address] [place] [address], [place] [address] Jun, [facility] [address] [id number] [address] [place] [address], [place] [address] Jun, [facility] [address] [id number] [address] [place] [address], [place] [address] Jun, [facility] [address] [id number] [address] [place] [id number] Jun, [facility] [address] [id number] [address] [place] [address], [place] [address] Jun, [facility] [address] [id number] [address] [place] [address], [place] [address] Jun, [facility] [address] [id number] [address] [place] [address], [place] [address] Jun, [facility] [address] [id number] [address] [place] [address], [place] [address] Jun, [facility] [address] [id number] [address] [place] [address], [place] [address] Jun, [facility] [address] [id number] [address] [place] [address], [place] [address] May, [facility] [address] [id number] [address] [place] [address] May, [facility] [address] [id number] [address] [place] [address], [place] [address] Apr, [facility] [address] [id number] [address] [place] [address], [place] [address] Apr, [facility] [address] [id number] [address] [place] [address], [place] [address] Apr, [facility] [address] [address] [id number] [address] [place] [address], [place] [address] Apr, 2013 [facility] [address] [id number] [address] [place] [address] 11 Apr, 2013 [facility] [address] [id number] [address] [place] [address], [place] [address] Apr, [facility] [address] [id number] [address] [place] [address], [place] [address] Apr, 2013 [facility] [address] [id number] [address] [place] [address], [place] [address] Apr, 2013 [facility] [address] [id number] [facility] [place] [address] Apr, 2013 [facility] [address] [id number] [address] [place] [address], [place] [address] Apr, [facility] [address] [id number] [address] [place] [address], [place] [address] Mar, [facility] [address] [id number] [address] [place] [address], [place] [address] Mar, [facility] [address] [id number] [address] [place] [address], [place] [address] Mar, [facility] [address] [id number] [address] [place] [address], [place] [address] Mar, [facility] [address] [id number] [address] [place] [address], [place] [address] Mar, [facility] [address] [id number] [address] [place] [address], [place] [address] Mar, [facility] [address] [id number] [address] [place] [address], [place] [address] Feb, [facility] [address] [id number] [address] [place] [address], [place] [address] Feb, [facility] [address] [id number] [address] [place] [address], [place] [address] Feb, [facility] [address] [id number] [address] [place] [address], [place] [address] Feb, [facility] [address] [id number] [address] [place] [address], [place] [address] Jan, [facility] [address] [id number] [address] [place] [address], [place] [address] Jan, [facility] [address] [id number] [address] [place] [address], [place] [address] Jan, [facility] [address] [id number] [address] [place] [address], [place] [address] Jan, [facility] [address] [id number] [address] [place] [address], [place] [address] Oct, [facility] [address] [id number] [address] [place] [address], [place] [address] Oct, [facility] [address] [id number] [address] [place] [address], [place] [address] Sep, [facility] [address] [id number] [address] [place] [address], [place] [address] Sep, [facility] [address] [id number] [address] [place] [address], [place] [address] Sep, [facility] [address] [id number] [address] [place] [address], [place] [address] Sep, [facility] [address] [id number] [address] [place] [address], [place] [address] Aug, [facility] [address] [id number] [address] [place] [address], [place] [address] Aug, [facility] [address] [id number] [address] [place] [address], [place] [address] Aug, [facility] [address] [id number] [address] [place] [address], [place] [address] Aug, [facility] [address] [id number] [address] [place] [address], [place] [address] Jul, [facility] [address] [id number] [address] [place] [address], [place] [address] 30 Jul, 2013 [facility] [address] [id number] [address] [place] [address], [place] [address] Jul, [facility] [address] [id number] [address] [place] [address], [place] [address] Jul, [facility] [address] [id number] [address] [place] [address], [place] [address] Jul, [facility] [address] [id number] [address] [place] [address], [place] [address] Jul, [facility] [address] [id number] [address] [place] [address], [place] [address] Jun, [facility] [address] [id number] [address] [place] [address], [place] [address] Jun, [facility] [address] [id number] [address] [place] [address], [place] [address] Jun, [facility] [address] [id number] [address] [place] [address], [place] [address] Jun, [facility] [address] [id number] [address] [place] [address], [place] [address] Jun, [facility] [address] [id number] [address] [place] [address], [place] [address] Jun, [facility] [address] [id number] [address] [place] [address], [place] [address] May, [facility] [address] [id number] [address] [place] [address], [place] [address] May, [facility] [address] [id number] [address] [place] [address], [place] [address] May, [facility] [address] [id number] [address] [place] [address], [place] [address] May, [facility] [address] [id number] [address] [place] [address], [place] [address] May, [facility] [address] [id number] [address] [place] [address], [place] [address] May, [facility] [address] [id number] [address] [place] [address], [place] [address] May, [facility] [address] [id number] [address] [place] [address], [place] [address] May, [facility] [address] [id number] [address] [place] [address], [place] [address] Apr, [facility] [address] [id number] [address] [place] [address], [place] [address] Apr, [facility] [address] [id number] [address] [place] [address], [place] [address] Mar, [facility] [address] [id number] [address] [place] [address], [place] [address] Mar, [facility] [address] [id number] [address] [place] [address], [place] [address] Mar, [facility] [address] [id number] [address] [place] [address], [place] [address] Mar, [facility] [address] [id number] [address] [place] [address], [place] [address] Feb, [facility] [address] [id number] [address] [place] [address], [place] [address] Jan, [facility] [address] [id number] [address] [place] [address], [place] [address] December, [facility] [address] [id number] [address] [place] [address], [place] [address] December, [facility] [address] [id number] [address] [place] [address], [place] [address] December, [facility] [address] [id number] [address] [place] [address], [place] [address] Nov, [facility] [address] [id number] [address] [place] [address], [place] [address] Nov, [facility] [address] [id number] [address] [place] [address], [place] [address] Sep, [facility] [address] [id number] [address] [place] [address], [place] [address] Sep, [facility] [address] [id number] [address] [place] [address], [place] [address] Sep, [facility] [address] [id number] [address] [place] [address], [place] [address] 13 Sep, 2012 [facility] [address] [id number] [address] [place] [address], [place] [address] Aug, [facility] [address] [id number] [address] [place] [address], [place] [address] Aug, [facility] [address] [id number] [address] [place] [address], [place] [address] Aug, [facility] [address] [id number] [address] [place] [address], [place] [address] Aug, [facility] [address] [id number] [address] [place] [address], [place] [address] Jul, [facility] [address] [id number] [address] [place] [address], [place] [address] Jul, [facility] [address] [id number] [address] [place] [address], [place] [address] Jul, [facility] [address] [id number] [address] [place] [address], [place] [address] Jul, [facility] [address] [id number] [address] [place] [address], [place] [address] Jun, [facility] [address] [id number] [address] [place] [address], [place] [address] Jun, [facility] [address] [id number] [address] [place] [address], [place] [address] Jun, [facility] [address] [id number] [address] [place] [address], [place] [address] Jun, [facility] [address] [id number] [address] [place] [address], [place] [address] May, [facility] [address] [id number] [address] [place] [address], [place] [address] May, [facility] [address] [id number] [address] [place] [address], [place] [address] May, [facility] [address] [id number] [address] [place] [address], [place] [address] May, [facility] [address] [id number] [address] [place] [address], [place] [address] May, [facility] [address] [id number] [address] [place] [address], [place] [address] Apr, [facility] [address] [id number] [address] [place] [address], [place] [address] 08 Apr, 2012 [facility] [address] [id number] [address] [place] [address], [place] [address] 07 Apr, 2012 [facility] [address] [id number] [address] [place] [address], [place] [address] Apr, [facility] [address] [id number] [address] [place] [address], [place] [address] Mar, [facility] [address] [id number] [address] [place] [address], [place] [address] Mar, [facility] [address] [id number] [address] [place] [address], [place] [address] Feb, [facility] [address] [id number] [address] [place] [address], [place] [address] Feb, [facility] [address] [id number] [address] [place] [address], [place] [address] Feb, [facility] [address] [id number] [address] [place] [address], [place] [address] Jan, [facility] [address] [id number] [address] [place] [address], [place] [address] Jan, [facility] [address] [id number] [address] [place] [address], [place] [address] December, [facility] [address] [id number] [address] [place] [address], [place] [address] December, [facility] [address] [id number] [address] [place] [address] Nov, [facility] [address] [id number] [address] [place] [address], [place] [address] Oct, [facility] [address] [id number] [address] [place] [address], [place] [address] Oct, [facility] [address] [id number] [address] [place] [address], [place] [address] Sep, [facility] [address] [id number] [address] [place] [address] Sep, [facility] [address] [id number] [address] [place] [address], [place] [address] Aug, [facility] [address] [id number] [address] [place] [address], [place] [address] Aug, [facility] [address] [id number] [address] [place] [address] Jul, [facility] [address] [id number] [address] [place] [address], [place] [address] Jul, [facility] [address] [id number] [address] [place] [address] Jul, [facility] [address] [id number] [address] [place] [address] Jun, [facility] [address] [id number] [address] [place] [address] Jun, [facility] [address] [id number] [address] [place] [address] May, [facility] [address] [id number] [address] [place] [address] May, [facility] [address] [id number] [address] [place] [address] May, [facility] [address] [id number] [address] [place] [address], [place] [address] Jul, [facility] [address] [id number] [address] [place] [id number] 08 Jul, 2010 [facility] [address] [id number] [address] [place] [id number] 15 Jun, 2010 [facility] [address] [id number] [address] [place] [address] May, [facility] [address] [id number] [address] [place] [address] May, [facility] [address] [id number] [address] [place] [address] Aug, [facility] [address] [id number] [address] [place] [id number] Jul, [facility] [address] [id number] [address] [place] [address] Jun, [facility] [address] [id number] [address] [place] [address] Jun, [facility] [address] [id number] [address] [place] [id number] Jun, [facility] [address] [id number] [address] [place] [address] Jun, [facility] [address] [id number] [address] [place] [address] Jun, [facility] [address] [id number] [address] [place] [address] May, [facility] [address] [id number] [address] [place] [address] Sep, IMMUNIZATIONS No Known Immunizations SOCIAL HISTORY Never Assessed REASON FOR VISIT PLAN OF CARE VITAL SIGNS Height 64 in 2014-10-24 Weight 257.31 lbs 2014-10-24 Temperature 98 degrees Fahrenheit 2014-10-24 Heart Rate 84 bpm 2014-10-24 Respiratory Rate 22 2014-10-24 Blood pressure systolic 130 mmHg 2014-10-24 Blood pressure diastolic 80 mmHg 2014-10-24 MEDICATIONS Unknown Medications RESULTS No Results PROCEDURES Procedure Date Ordered Result Body Site GLYCATED HEMOGLOBIN TEST October 24, 2014 MICROALBUMIN, SEMIQUANT October 24, 2014 INSTRUCTIONS MEDICATIONS ADMINISTERED No Known [...]
--- OUTSIDE RECORDS SUMMARY | 2020-01-28 14:34 | XMS REPORT ---
Author Author Katarina RODRIGUEZ Organization [facility] Address [address] [place] [address] Care Team Providers Care Business Process Engineer Name Role Phone GEORGINA RODRIGUEZ Unavailable PROBLEMS Type Condition ICD9-CM Code JVL95-ZU Code Onset Dates Condition S tatus SNOMED Code Problem Chronic obstructive pulmonary disease, unspecified COPD ty pe J44.9 Active 73613918 Problem Cigarette nicotine dependence without complication F17.210 Active 54655826 Problem Osteoarthritis M19.90 Active 29676 5006 Problem High risk medication use Z79.899 Activ e 793780190 Problem Acquired hypothyroidism E03.9 Active 704242677 Problem History of cataract surgery Z98.49 Ac tive 285591134 Problem Urinary incontinence, unspecified type R32 Active 698347221 Problem jail (current) use of anticoagulants Z79.01 Active 486212082 Problem Chronic atrial fibrillation I48.2 Ac tive 627332006 Problem Encounter for immunization Z23 Act essie 917745161 Problem Other chronic pain G89.29 Active 8 8649356 Problem Diabetes E11.9 Active 242014677 Problem Morbid obesity, unspecified obesity type E66.01 Active 754872514 Problem Irregular heart beats I49.9 Active 085169800 Problem Other urinary incontinence N39.498 Act essie 493145113 Problem Essential hypertension I10 Active 50322604 ALLERGIES No Information ENCOUNTERS Encounter Location Date Diagnosis [facility] [address] [facility] [id number] [address] [place] [address] Mar, [facility] [address] [facility] [id number] [address] [place] [address] Feb, Hyperglycemia R73.9 ; Diabet es E11.9 ; Morbid obesity E66.01 ; Acquired hypothyroidism E03.9 ; Osteoarthritis M19.90 and High risk medication use Z79.899 [facility] [address] [id number] [address] [place] [address] Feb, Chronic atrial fibrillation I48.2 [facility] [address] [id number] [address] [place] [address] Jan, Osteoarthritis M19.90 [facility] [address] [id number] [address] [place] [address] Jan, Chronic atrial fibrillation I48.2 [facility] [address] [id number] [address] [place] [address] Jan, Chronic atrial fibrillation I48.2 [facility] [address] [id number] [address] [place] [address] Jan, Chronic atrial fibrillation I48.2 [facility] [address] [id number] [address] [place] [address] Jan, jail (current) use of a nticoagulants Z79.01 [facility] [address] [id number] [address] [place] [address] December, [facility] [address] [id number] [address] [place] [address] December, [facility] [address] [id number] [address] [place] [address] December, Osteoarthritis M19.90 [facility] [address] [id number] [address] [place] [address] Nov, [facility] [address] [id number] [address] [place] [address] Nov, Osteoarthritis M19.90 [facility] [address] [id number] [address] [place] [address] Oct, Osteoarthritis M19.90 [facility] [address] [id number] [address] [place] [address] Sep, Osteoarthritis M19.90 [facility] [address] [id number] [address] [place] [address] Sep, jail (current) use of a nticoagulants Z79.01 ; BMI 45.0-49.9, adult Z68.42 ; Diabetes E11.9 ; Chronic atrial fibrillation I48.2 and Chronic obstructive pulmonary disease, unspecified COPD type J44.9 [facility] [address] [id number] [address] [place] [address] Sep, Diabetes E11.9 ; 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 card 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 ( current) 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 of anticoagulants Z79.01 ; Chronic atrial fibrillation I48.2 ; Chronic obstructive pulmonary disease, unspecified COPD type J44.9 and BMI 45.0-49.9, adult Z68.42 [facility] [address] [id number] [address] [place] [address] Aug, Osteoarthritis M19.90 [facility] [address] [facility] [id number] [address] [place] [address] Aug, [facility] [address] [facility] [id number] [address] [place] [address] Aug, 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 card tender (current) use of a nticoagulants Z79.01 ; BMI 45.0-49.9, adult Z68.42 ; Diabetes E11.9 and Chronic atrial fibrillation I48.2 [facility] [address] [id number] [address] [place] [address] Aug, [facility] [address] [id number] [address] [place] [address] Jul, Osteoarthritis M19.90 [facility] [address] [id number] [address] [place] [address] Jun, Osteoarthritis M19.90 [facility] [address] [id number] [address] [place] [address] Jun, 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 card tender (current) use of a nticoagulants Z79.01 [facility] [address] [id number] [address] [place] [address] Jun, Chronic atrial fibrillation I48.2 and 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.01 [facility] [address] [id number] [address] [place] [address] Jun, Osteoarthritis M19.90 [facility] [address] [facility] [id number] [address] [place] [address] May, Encounter for immunization Z 23 [facility] [address] [facility] [id number] [address] [place] [address] May, jail (current) use of a nticoagulants Z79.01 [facility] [address] [id number] [address] [place] [address] May, Osteoarthritis M19.90 [facility] [address] [id number] [address] [place] [address] May, [facility] [address] [facility] [id number] [address] [place] [address] May, Diabetes E11.9 ; jail ( current) use of anticoagulants Z79.01 ; Chronic atrial fibrillation I48.2 ; BMI 45.0-49.9, adult Z68.42 ; Osteoarthritis M19.90 ; Low back pain M54.5 and Other chronic pain G89.29 [facility] [address] [id number] [address] [place] [address] Apr, Chronic atrial fibrillation I48.2 [facility] [address] [facility] [id number] [address] [place] [address] Apr, 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 card tender (current) use of a nticoagulants Z79.01 [facility] [address] [id number] [address] [place] [address] Apr, Osteoarthritis M19.90 [facility] [address] [id number] [address] [place] [address] 04 Apr, 2018 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 card tender (current) use of a nticoagulants Z79.01 and Chronic atrial fibrillation I48.2 [facility] [address] [id number] [address] [place] [address] Mar, Osteoarthritis M19.90 [facility] [address] [facility] [id number] [address] [place] [address] Feb, Osteoarthritis M19.90 [facility] [address] [facility] [id number] [address] [place] [address] Jan, Osteoarthritis M19.90 [facility] [address] [facility] [id number] [address] [place] [address] December, [facility] [address] [facility] [id number] [address] [place] [address] December, Osteoarthritis M19.90 [facility] [address] [facility] [id number] [address] [place] [address] Nov, Diabetes E11.9 ; jail ( current) use of anticoagulants Z79.01 ; Acquired hypothyroidism E03.9 ; Cigarette nicotine dependence without complication F17.210 ; Osteoarthritis M19.90 ; BMI 45.0-49.9, adult Z68.42 and Chronic atrial fibrillation I48.2 [facility] [address] [facility] [id number] [address] [place] [address] Nov, Osteoarthritis M19.90 [facility] [address] [facility] [id number] [address] [place] [address] Oct, Osteoarthritis M19.90 [facility] [address] [facility] [id number] [address] [place] [address] Oct, 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 card tender (current) use of a nticoagulants Z79.01 [facility] [address] [id number] [address] [place] [address] Sep, Osteoarthritis M19.90 [facility] [address] [facility] [id number] [address] [place] [address] Sep, [facility] [address] [facility] [id number] [address] [place] [address] Aug, Osteoarthritis M19.90 [facility] [address] [facility] [id number] [address] [place] [address] Jul, Osteoarthritis M19.90 [facility] [address] [facility] [id number] [address] [place] [address] Jul, Osteoarthritis M19.90 [facility] [address] [facility] [id number] [address] [place] [address] Jun, Diabetes E11.9 ; Encounter f or immunization Z23 ; 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.01 ; Chronic atrial fibrillation I48.2 ; Osteoarthritis M19.90 ; Tobacco abuse Z72.0 and Bug bite, initial encounter W57.XXXA [facility] [address] [facility] [id number] [address] [place] [address] May, Osteoarthritis M19.90 [facility] [address] [facility] [id number] [address] [place] [address] Apr, Osteoarthritis M19.90 [facility] [address] [facility] [id number] [address] [place] [address] Mar, Chronic atrial fibrillation I48.2 [facility] [address] [id number] [address] [place] [address] Mar, [facility] [address] [facility] [id number] [address] [place] [address] Mar, Osteoarthritis M19.90 [facility] [address] [facility] [id number] [address] [place] [address] Mar, jail (current) use of a nticoagulants Z79.01 and Chronic atrial fibrillation I48.2 [facility] [address] [id number] [address] [place] [address] Mar, Chronic atrial fibrillation I48.2 and jail (current) use of anticoagulants Z79.01 [facility] [address] [id number] [address] [place] [address] Mar, jail (current) use of a nticoagulants Z79.01 [facility] [address] [facility] [id number] [address] [place] [address] Mar, 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 card tender (current) use of a nticoagulants Z79.01 [facility] [address] [id number] [address] [place] [address] Mar, Osteoarthritis M19.90 [facility] [address] [id number] [address] [place] [address] Feb, Encounter for screening mamm ogram for malignant neoplasm of breast Z12.31 [facility] [address] [id number] [address] [place] [address] Feb, Osteoarthritis M19.90 [facility] [address] [id number] [address] [place] [address] Jan, [facility] [address] [facility] [id number] [address] [place] [address] Jan, 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 card tender (current) use of a nticoagulants Z79.01 ; Diabetes E11.9 ; Osteoarthritis M19.90 and Breast cancer screening Z12.39 [facility] [address] [id number] [address] [place] [address] Jan, Osteoarthritis M19.90 [facility] [address] [facility] [id number] [address] [place] [address] Jan, Osteoarthritis M19.90 [facility] [address] [facility] [id number] [address] [place] [address] Jan, [facility] [address] [facility] [id number] [address] [place] [address] December, Osteoarthritis M19.90 [facility] [address] [id number] [address] [place] [address] December, Osteoarthritis M19.90 [facility] [id number] [place] [id number] Nov, [facility] [address] [facility] [id number] [address] [place] [address] Nov, [facility] [address] [id number] [address] [place] [address] Nov, [facility] [address] [id number] [address] [place] [address] Nov, Diabetes E11.9 [facility] [address] [facility] [id number] [address] [place] [address] Nov, [facility] [address] [facility] [id number] [address] [place] [address] Oct, Osteoarthritis M19.90 [facility] [address] [facility] [id number] [address] [place] [address] Oct, Osteoarthritis M19.90 ; jail (current) use of anticoagulants Z79.01 ; Diabetes E11.9 ; Cigarette nicotine dependence without complication F17.210 and Chronic atrial fibrillation I48.2 [facility] [address] [facility] [id number] [address] [place] [address] Aug, [facility] [address] [facility] [id number] [address] [place] [address] Aug, 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 card tender (current) use of a nticoagulants Z79.01 [facility] [place] [address] [facility] [id number] [address] [place] [address] Aug, [facility] [id number] [id number] Aug, [facility] [address] [facility] [id number] [address] [place] [address] Aug, [facility] [address] [facility] [id number] [address] [place] [address] Aug, [facility] [address] [id number] [id number] Aug, [employer] [address] [place] [id number] Aug Osteoarthritis M19.90 and Essential hypertension I10 [facility] [address] [facility] [id number] [address] [place] [address] Aug, Other urinary incontinence N 39.498 [facility] [address] [facility] [id number] [address] [place] [address] Jul, Osteoarthritis M19.90 [facility] [address] [facility] [id number] [address] [place] [address] Jun, Diabetes E11.9 ; Encounter f or immunization Z23 ; Osteoarthritis M19.90 ; jail (current) use of anticoagulants Z79.01 ; Cigarette nicotine dependence without complication F17.210 ; Acquired hypothyroidism E03.9 ; Morbid obesity, unspecified obesity type E66.01 and Irregular heart beats I49.9 [facility] [address] [id number] [address] [place] [address] Jun, Osteoarthritis M19.90 [facility] [address] [facility] [id number] [address] [place] [address] May, Osteoarthritis M19.90 [facility] [address] [facility] [id number] [address] [place] [address] May, Urinary incontinence, unspec ified type R32 [facility] [address] [facility] [id number] [address] [place] [address] May, [facility] [address] [facility] [id number] [address] [place] [address] Apr, Osteoarthritis M19.90 [facility] [address] [facility] [id number] [address] [place] [address] Apr, jail (current) use of a nticoagulants Z79.01 [facility] [address] [id number] [address] [place] [address] Apr, [facility] [address] [facility] [id number] [address] [place] [address] Apr, Osteoarthritis M19.90 [facility] [address] [facility] [id number] [address] [place] [address] Mar, Diabetes E11.9 ; Hypothyroid ism, unspecified type E03.9 ; Osteoarthritis M19.90 ; High risk medication use Z79.899 ; Cigarette nicotine dependence without complication F17.210 and Morbid obesity, unspecified obesity type E66.01 [facility] [address] [id number] [address] [place] [address] Mar, Osteoarthritis M19.90 [facility] [address] [id number] [address] [place] [address] December, Osteoarthritis M19.90 [facility] [address] [id number] [address] [place] [address] December, [facility] [address] [id number] [address] [place] [address] Oct, [facility] [address] [id number] [address] [place] [address] Oct, [facility] [address] [facility] [id number] [address] [place] [address] Aug, [facility] [address] [facility] [id number] [address] [place] [address] Jul, [facility] [address] [id number] [address] [place] [address] Jul, [facility] [address] [facility] [id number] [address] [place] [address] Jul, Diabetes E11.9 ; Encounter f or immunization Z23 ; Abnormal mammogram R92.8 ; Acquired hypothyroidism E03.9 ; High risk medication use Z79.899 ; Osteoarthritis M19.90 and Cigarette nicotine dependence without complication F17.210 [facility] [address] [id number] [address] [place] [address] Jul, [facility] [address] [facility] [id number] [address] [place] [address] Jun, Abnormal mammogram R92.8 [facility] [address] [facility] [id number] [address] [place] [address] Apr, [facility] [address] [facility] [id number] [address] [place] [address] Apr, [facility] [address] [id number] [address] [place] [address] Mar, [facility] [address] [id number] [address] [place] [address] Mar, 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 [facility] [address] [id number] [address] [place] [address] Feb, [facility] [address] [id number] [address] [place] [address] Jan, [facility] [address] [id number] [address] [place] [address] December, [facility] [address] [id number] [address] [place] [address] Nov, [facility] [address] [id number] [address] [place] [address] Nov, [facility] [address] [id number] [address] [place] [address] Oct, [facility] [address] [id number] [address] [place] [address] Oct, [facility] [address] [id number] [address] [place] [address] Oct, [facility] [address] [id number] [address] [place] [address] Oct, [facility] [address] [id number] [address] [place] [address] Oct, [facility] [address] [id number] [address] [place] [address] Oct, [facility] [address] [id number] [address] [place] [address] Sep, [facility] [address] [id number] [address] [place] [address] Sep, [facility] [address] [id number] [address] [place] [address], [place] [address] Sep, [facility] [address] [id number] [address] [place] [address], [place] [address] Sep, [facility] [address] [id number] [address] [place] [address], [place] [address] Aug, [facility] [address] [id number] [address] [place] [address], [place] [address] Aug, [facility] [address] [id number] [address] [place] [address], [place] [address] Aug, [facility] [address] [id number] [address] [place] [address], [place] [address] Aug, [facility] [address] [id number] [address] [place] [address], [place] [address] Aug, [facility] [address] [id number] [address] [place] [address], [place] [address] Aug, [facility] [address] [id number] [address] [place] [address], [place] [address] Jul, [facility] [address] [id number] [address] [place] [address], [place] [address] Jul, [facility] [address] [id number] [address] [place] [address], [place] [address] Jul, [facility] [address] [id number] [address] [place] [id number] Jul, [facility] [address] [id number] [address] [place] [address], [place] [address] Jul, [facility] [address] [id number] [address] [place] [address], [place] [address] Jul, [facility] [address] [id number] [address] [place] [address], [place] [address] Jun, [facility] [address] [id number] [address] [place] [address], [place] [address] Jun, [facility] [address] [id number] [address] [place] [address], [place] [address] Jun, [facility] [address] [id number] [address] [place] [address], [place] [address] Jun, [facility] [address] [id number] [address] [place] [address], [place] [address] Jun, [facility] [address] [id number] [address] [place] [address], [place] [address] Jun, [facility] [address] [id number] [address] [place] [address], [place] [address] Jun, [facility] [address] [id number] [address] [place] [address], [place] [address] Jun, [facility] [address] [id number] [address] [place] [address], [place] [address] Jun, [facility] [address] [id number] [address] [place] [address], [place] [address] May, [facility] [address] [id number] [address] [place] [address], [place] [address] May, [facility] [address] [id number] [address] [place] [address], [place] [address] Apr, [facility] [address] [id number] [address] [place] [address], [place] [address] Apr, [facility] [address] [id number] [address] [place] [address], [place] [address] Apr, [facility] [address] [id number] [address] [place] [address], [place] [address] Apr, [facility] [address] [id number] [address] [place] [address], [place] [address] Apr, [facility] [address] [id number] [address] [place] [address], [place] [address] Apr, [facility] [address] [id number] [facility] [place] [address] Apr, 2013 [facility] [address] [id number] [address] [place] [address], [place] [address] Apr, 2013 [facility] [address] [id number] [address] [place] [address], [place] [address] Apr, 2013 [facility] [address] [id number] [address] [place] [address], [place] [address] Apr, 2013 [facility] [address] [id number] [address] [place] [address], [place] [address] Mar, [facility] [address] [id number] [address] [place] [address], [place] [address] Mar, [facility] [address] [id number] [address] [place] [address], [place] [address] Mar, [facility] [address] [id number] [address] [place] [address], [place] [address] Mar, [facility] [address] [id number] [address] [place] [address], [place] [address] Mar, [facility] [address] [id number] [address] [place] [address], [place] [address] Mar, [facility] [address] [id number] [address] [place] [address], [place] [address] Feb, [facility] [address] [id number] [address] [place] [address], [place] [address] Feb, [facility] [address] [id number] [address] [place] [address], [place] [address] Feb, [facility] [address] [id number] [address] [place] [address], [place] [address] Feb, [facility] [address] [id number] [address] [place] [address], [place] [address] Jan, [facility] [address] [id number] [address] [place] [address], [place] [address] 30 Jan, 2014 [facility] [address] [id number] [address] [place] [address], [place] [address] Jan, [facility] [address] [id number] [address] [place] [address], [place] [address] Jan, [facility] [address] [id number] [address] [place] [address], [place] [address] Oct, [facility] [address] [id number] [address] [place] [address], [place] [address] Oct, [facility] [address] [id number] [address] [place] [address], [place] [address] Sep, [facility] [address] [id number] [address] [place] [address], [place] [address] Sep, [facility] [address] [id number] [address] [place] [address], [place] [address] Sep, [facility] [address] [id number] [address] [place] [address], [place] [address] Sep, [facility] [address] [id number] [address] [place] [address], [place] [address] Aug, [facility] [address] [id number] [address] [place] [address], [place] [address] Aug, [facility] [address] [id number] [address] [place] [address], [place] [address] Aug, [facility] [address] [id number] [address] [place] [address], [place] [address] Aug, [facility] [address] [id number] [address] [place] [address], [place] [address] Jul, [facility] [address] [id number] [address] [place] [address], [place] [address] Jul, [facility] [address] [id number] [address] [place] [address], [place] [address] Jul, [facility] [address] [id number] [address] [place] [address], [place] [address] 14 Jul, 2013 [facility] [address] [id number] [address] [place] [address], [place] [address] 10 Jul, 2013 [facility] [address] [id number] [address] [place] [address], [place] [address] Jul, [facility] [address] [id number] [address] [place] [address], [place] [address] Jun, [facility] [address] [id number] [address] [place] [address], [place] [address] Jun, [facility] [address] [id number] [address] [place] [address], [place] [address] Jun, [facility] [address] [id number] [address] [place] [address], [place] [address] Jun, [facility] [address] [id number] [address] [place] [address], [place] [address] Jun, [facility] [address] [id number] [address] [place] [address], [place] [address] Jun, [facility] [address] [id number] [address] [place] [address] May, [facility] [address] [id number] [address] [place] [address] May, [facility] [address] [id number] [address] [place] [address] May, [facility] [address] [id number] [address] [place] [address], [place] [address] May, [facility] [address] [id number] [address] [place] [address], [place] [address] May, [facility] [address] [id number] [address] [place] [address] May, [facility] [address] [id number] [address] [place] [address] May, [facility] [address] [id number] [address] [place] [address], [place] [address] May, [facility] [address] [id number] [address] [place] [address], [place] [address] Apr, [facility] [address] [id number] [address] [place] [address], [place] [address] Apr, [facility] [address] [id number] [address] [place] [address], [place] [address] Mar, [facility] [address] [id number] [address] [place] [address], [place] [address] Mar, [facility] [address] [id number] [address] [place] [address], [place] [address] Mar, [facility] [address] [id number] [address] [place] [address], [place] [address] Mar, [facility] [address] [id number] [address] [place] [address], [place] [address] Feb, [facility] [address] [id number] [address] [place] [address], [place] [address] Jan, [facility] [address] [id number] [address] [place] [address], [place] [address] December, [facility] [address] [id number] [address] [place] [address], [place] [address] December, [facility] [address] [id number] [address] [place] [address], [place] [address] December, [facility] [address] [id number] [address] [place] [address], [place] [address] Nov, [facility] [address] [id number] [address] [place] [address], [place] [address] Nov, [facility] [address] [id number] [address] [place] [address], [place] [address] Sep, [facility] [address] [id number] [address] [place] [address], [place] [address] 14 Sep, 2012 [facility] [address] [id number] [address] [place] [address], [place] [address] 14 Sep, 2012 [facility] [address] [id number] [address] [place] [address], [place] [address] 13 Sep, 2012 [facility] [address] [id number] [address] [place] [address], [place] [address] 30 Aug, 2012 [facility] [address] [id number] [address] [place] [address], [place] [address] Aug, [facility] [address] [id number] [address] [place] [address], [place] [address] Aug, [facility] [address] [id number] [address] [place] [address], [place] [address] Aug, [facility] [address] [id number] [address] [place] [address], [place] [address] Jul, [facility] [address] [id number] [address] [place] [address], [place] [address] Jul, [facility] [address] [id number] [address] [place] [address], [place] [address] Jul, [facility] [address] [id number] [address] [place] [address], [place] [address] Jul, [facility] [address] [id number] [address] [place] [address], [place] [address] Jun, [facility] [address] [id number] [address] [place] [address], [place] [address] Jun, [facility] [address] [id number] [address] [place] [address], [place] [address] Jun, [facility] [address] [id number] [address] [place] [address], [place] [address] Jun, [facility] [address] [id number] [address] [place] [address], [place] [address] 18 May, 2012 [facility] [address] [id number] [address] [place] [address], [place] [address] 18 May, 2012 [facility] [address] [id number] [address] [place] [address], [place] [address] 10 May, 2012 [facility] [address] [id number] [address] [place] [address], [place] [address] 10 May, 2012 [facility] [address] [id number] [address] [place] [address], [place] [address] 08 May, 2012 [facility] [address] [id number] [address] [place] [address], [place] [address] 10 Apr, 2012 [facility] [address] [id number] [address] [place] [address], [place] [address] 08 Apr, 2012 [facility] [address] [id number] [address] [place] [address], [place] [address] 07 Apr, 2012 [facility] [address] [id number] [address] [place] [address], [place] [address] 06 Apr, 2012 [facility] [address] [id number] [address] [place] [address], [place] [address] Mar, [facility] [address] [id number] [address] [place] [address], [place] [address] Mar, [facility] [address] [id number] [address] [place] [address], [place] [address] Feb, [facility] [address] [id number] [address] [place] [address], [place] [address] Feb, [facility] [address] [id number] [address] [place] [address], [place] [address] Feb, [facility] [address] [id number] [address] [place] [address], [place] [address] Jan, [facility] [address] [id number] [address] [place] [address], [place] [address] Jan, [facility] [address] [id number] [address] [place] [address], [place] [address] December, [facility] [address] [id number] [address] [place] [address], [place] [address] December, [facility] [address] [id number] [address] [place] [address], [place] [address] Nov, [facility] [address] [id number] [address] [place] [address], [place] [address] Oct, [facility] [address] [id number] [address] [place] [address], [place] [address] Oct, [facility] [address] [id number] [address] [place] [address], [place] [address] Sep, [facility] [address] [id number] [address] [place] [address], [place] [address] Sep, [facility] [address] [id number] [address] [place] [address], [place] [address] Aug, [facility] [address] [id number] [address] [place] [address], [place] [address] Aug, [facility] [address] [id number] [address] [place] [address], [place] [address] Jul, [facility] [address] [id number] [address] [place] [address], [place] [address] Jul, [facility] [address] [id number] [address] [place] [address], [place] [address] Jul, [facility] [address] [id number] [address] [place] [address], [place] [address] Jun, [facility] [address] [id number] [address] [place] [address], [place] [address] Jun, [facility] [address] [id number] [address] [place] [address], [place] [address] 13 May, 2011 [facility] [address] [id number] [address] [place] [address], [place] [address] May, [facility] [address] [id number] [address] [place] [address] May, [facility] [address] [id number] [address] [place] [address] Jul, [facility] [address] [id number] [address] [place] [address] Jul, [facility] [address] [id number] [address] [place] [address] 15 Jun, 2010 [facility] [address] [id number] [address] [place] [address] May, [facility] [address] [id number] [address] [place] [address] May, [facility] [address] [id number] [address] [place] [address] Aug, [facility] [address] [id number] [address] [place] [address] Jul, [facility] [address] [id number] [address] [place] [address] Jun, [facility] [address] [id number] [address] [place] [address] Jun, [facility] [address] [id number] [address] [place] [address] Jun, [facility] [address] [id number] [address] [place] [address] Jun, [facility] [address] [id number] [address] [place] [address] Jun, [facility] [address] [id number] [address] [place] [address] May, [facility] [address] [id number] [address] [place] [address] Sep, IMMUNIZATIONS No Known Immunizations SOCIAL HISTORY [...]
--- OUTSIDE RECORDS SUMMARY | 2020-01-28 14:34 | XMS REPORT ---
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 Name Role Phone GEORGINA RODRIGUEZ Unavailable PROBLEMS Type Condition ICD9-CM Code TWA79-QA Code Onset Dates Condition S tatus SNOMED Code Problem Chronic obstructive pulmonary disease, unspecified COPD ty pe J44.9 Active 11149091 Problem Cigarette nicotine dependence without complication F17.210 Active 27314997 Problem Osteoarthritis M19.90 Active 33873 5006 Problem High risk medication use Z79.899 Activ e 620018265 Problem Acquired hypothyroidism E03.9 Active 353179552 Problem History of cataract surgery Z98.49 Ac tive 373094666 Problem Urinary incontinence, unspecified type R32 Active 274764577 Problem 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 (current) use of anticoagulants Z79.01 Active 831044688 Problem Chronic atrial fibrillation I48.2 Ac tive 926279486 Problem Encounter for immunization Z23 Act essie 490339363 Problem Other chronic pain G89.29 Active 8 7794013 Problem Diabetes E11.9 Active 729231527 Problem Morbid obesity, unspecified obesity type E66.01 Active 414293013 Problem Irregular heart beats I49.9 Active 132309984 Problem Other urinary incontinence N39.498 Act essie 834102457 Problem Essential hypertension I10 Active 17543377 ALLERGIES No Information ENCOUNTERS Encounter Location Date Diagnosis [facility] [address] [facility] [id number] [address] [place] [phone] Mar, [facility] [address] [facility] [id number] [address] [place] [address] Feb, Osteoarthritis M19.90 [facility] [address] [facility] [id number] [address] [place] [phone] Feb, Chronic atrial fibrillation I48.2 [facility] [address] [facility] [id number] [address] [place] [address] Feb, Hyperglycemia R73.9 ; Diabet es E11.9 ; Morbid obesity E66.01 ; Acquired hypothyroidism E03.9 ; Osteoarthritis M19.90 and High risk medication use Z79.899 [facility] [address] [id number] [address] [place] [phone] Feb, Chronic atrial fibrillation I48.2 [facility] [address] [id number] [address] [place] [phone] Jan, Osteoarthritis M19.90 [facility] [address] [facility] [id number] [address] [place] [phone] Jan, Chronic atrial fibrillation I48.2 [facility] [address] [facility] [id number] [address] [place] [phone] Jan, Chronic atrial fibrillation I48.2 [facility] [address] [facility] [id number] [address] [place] [phone] Jan, Chronic atrial fibrillation I48.2 [facility] [address] 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 [id number] [address] [place] [phone] December, [facility] [address] [facility] [id number] [address] [place] [phone] December, [facility] [address] [facility] [id number] [address] [place] [address] December, Osteoarthritis M19.90 [facility] [address] [facility] [id number] [address] [place] [phone] Nov, [facility] [address] [facility] [id number] [address] [place] [phone] Nov, Osteoarthritis M19.90 [facility] [address] [facility] [id number] [address] [place] [phone] Oct, Osteoarthritis M19.90 [facility] [address] [facility] [id number] [address] [place] [phone] Sep, Osteoarthritis M19.90 [facility] [address] 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 [id number] [address] [place] [phone] Aug, Osteoarthritis M19.90 [facility] [address] [facility] [id number] [address] [place] [phone] Aug, [facility] [address] [facility] [id number] [address] [place] [address] Aug, 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 (current) use of a nticoagulants Z79.01 ; BMI 45.0-49.9, adult Z68.42 ; Diabetes E11.9 and Chronic atrial fibrillation I48.2 [facility] [address] [id number] [address] [place] [phone] Aug, [facility] [address] [facility] [id number] [address] [place] [phone] Jul, Osteoarthritis M19.90 [facility] [address] [facility] [id number] [address] [place] [phone] Jun, Osteoarthritis M19.90 [facility] [address] [facility] [id number] [address] [place] [address] Jun, 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 (current) use of a nticoagulants Z79.01 [facility] [address] [id number] [address] [place] [phone] Jun, Chronic atrial fibrillation I48.2 and 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 (current) use of anticoagulants Z79.01 [facility] [address] [id number] [address] [place] [phone] Jun, Osteoarthritis M19.90 [facility] [address] [id number] [address] [place] [phone] May, Encounter for immunization Z 23 [facility] [address] 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 [id number] [address] [place] [phone] May, Osteoarthritis M19.90 [place] [address] [id number] [address] [place] [phone] May, [place] [address] 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 [id number] [address] [place] [phone] Apr, Osteoarthritis M19.90 [facility] [address] 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 [id number] [address] [place] [phone] Jan, Osteoarthritis M19.90 [facility] [address] [facility] [id number] [address] [place] [phone] December, [facility] [address] [facility] [id number] [address] [place] [address] December, Osteoarthritis M19.90 [facility] [address] [facility] [id number] [address] [place] [address] Nov, Diabetes E11.9 ; 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 ( current) use of anticoagulants Z79.01 ; Acquired hypothyroidism E03.9 ; Cigarette nicotine dependence without complication F17.210 ; Osteoarthritis M19.90 ; BMI 45.0-49.9, adult Z68.42 and Chronic atrial fibrillation I48.2 [facility] [address] [facility] [id number] [address] [place] [phone] Nov, Osteoarthritis M19.90 [facility] [address] [facility] [id number] [address] [place] [phone] Oct, Osteoarthritis M19.90 [facility] [address] 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 [id number] [address] [place] [phone] Sep, Osteoarthritis M19.90 [facility] [address] [facility] [id number] [address] [place] [phone] Sep, [facility] [address] [facility] [id number] [address] [place] [phone] Aug, Osteoarthritis M19.90 [facility] [address] [facility] [id number] [address] [place] [address] Jul, Osteoarthritis M19.90 [facility] [address] [facility] [id number] [address] [place] [phone] Jul, Osteoarthritis M19.90 [facility] [address] [facility] [id number] [address] [place] [address] Jun, Diabetes E11.9 ; Encounter f or immunization Z23 ; 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 (current) use of anticoagulants Z79.01 ; Chronic atrial fibrillation I48.2 ; Osteoarthritis M19.90 ; Tobacco abuse Z72.0 and Bug bite, initial encounter W57.XXXA [facility] [address] [facility] [id number] [address] [place] [phone] May, Osteoarthritis M19.90 [facility] [address] [facility] [id number] [address] [place] [phone] Apr, Osteoarthritis M19.90 [facility] [address] [facility] [id number] [address] [place] [phone] Mar, Chronic atrial fibrillation I48.2 [facility] [address] [facility] [id number] [address] [place] [phone] Mar, [facility] [address] [facility] [id number] [address] [place] [phone] Mar, Osteoarthritis M19.90 [facility] [address] [id number] [address] [place] [phone] Mar, 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 (current) use of a nticoagulants Z79.01 and Chronic atrial fibrillation I48.2 [facility] [address] [facility] [id number] [address] [place] [phone] Mar, Chronic atrial fibrillation I48.2 and 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 (current) use of anticoagulants Z79.01 [facility] [address] [id number] [address] [place] [phone] 14 Mar, 2017 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 (current) use of a nticoagulants Z79.01 [facility] [address] [id number] [address] [place] [phone] 04 Mar, 2017 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 (current) use of a nticoagulants Z79.01 [facility] [address] [id number] [address] [place] [phone] Mar, Osteoarthritis M19.90 [facility] [address] [facility] [id number] [address] [place] [phone] Feb, Encounter for screening mamm ogram for malignant neoplasm of breast Z12.31 [facility] [address] [facility] [id number] [address] [place] [address] Feb, Osteoarthritis M19.90 [facility] [address] [facility] [id number] [address] [place] [phone] Jan, [facility] [address] [id number] [address] [place] [phone] Jan, 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 (current) use of a nticoagulants Z79.01 ; Diabetes E11.9 ; Osteoarthritis M19.90 and Breast cancer screening Z12.39 [facility] [address] [facility] [id number] [address] [place] [phone] Jan, Osteoarthritis M19.90 [facility] [address] [id number] [address] [place] [address] Jan, Osteoarthritis M19.90 [facility] [address] [id number] [address] [place] [phone] Jan, [facility] [address] [facility] [id number] [address] [place] [address] December, Osteoarthritis M19.90 [facility] [address] [facility] [id number] [address] [place] [address] December, Osteoarthritis M19.90 [facility] [address] [id number] [facility] [place] [id number] Nov, [facility] [address] [id number] [address] [place] [phone] Nov, [facility] [address] [id number] [address] [place] [phone] Nov, [facility] [address] [id number] [address] [place] [address] Nov, Diabetes E11.9 [facility] [address] [id number] [address] [place] [phone] Nov, [facility] [address] [id number] [address] [place] [address] Oct, Osteoarthritis M19.90 [facility] [address] [facility] [id number] [address] [place] [address] Oct, Osteoarthritis M19.90 ; 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 (current) use of anticoagulants Z79.01 ; Diabetes E11.9 ; Cigarette nicotine dependence without complication F17.210 and Chronic atrial fibrillation I48.2 [facility] [address] [id number] [address] [place] [phone] Aug, [facility] [address] [id number] [address] [place] [address] Aug, 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 (current) use of a nticoagulants Z79.01 [facility] [address] [id number] [address] [place] [phone] Aug, [facility] [address] [id number] [place] [id number] Aug, [facility] [address] [id number] [address] [place] [phone] Aug, [facility] [address] [facility] [id number] [address] [place] [address] Aug, [facility] [address] [id number] [place] [id number] Aug, [employer] [address] [id number] Aug Osteoarthritis M19.90 and Essential hypertension I10 [place] [address] [place] [id number] [address] [place] [address] Aug, Other urinary incontinence N 39.498 [place] [address] [place] [id number] [address] [place] [address] Jul, Osteoarthritis M19.90 [place] [address] [address] Jun, Diabetes E11.9 ; Encounter f or immunization Z23 ; Osteoarthritis M19.90 ; 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 (current) use of anticoagulants Z79.01 ; Cigarette nicotine dependence without complication F17.210 ; Acquired hypothyroidism E03.9 ; Morbid obesity, unspecified obesity type E66.01 and Irregular heart beats I49.9 [place] [address] [address] Jun, Osteoarthritis M19.90 [place] [address] [place] [id number] [address] [place] [address] May, Osteoarthritis M19.90 [place] [address] [place] [id number] [address] [place] [address] May, Urinary incontinence, unspec ified type R32 [place] [id number] [place] [address] May, [place] [address] [place] [id number] [address] [place] [address] Apr, Osteoarthritis M19.90 [place] [address] [place] [id number] [address] [place] [address] Apr, 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 (current) use of a nticoagulants Z79.01 [place] [address] [place] [id number] [address] [place] [phone] Apr, [place] [address] [place] [id number] [address] [place] [phone] Apr, Osteoarthritis M19.90 [facility] [address] [id number] [address] [place] [address] Mar, Diabetes E11.9 ; Hypothyroid ism, unspecified type E03.9 ; Osteoarthritis M19.90 ; High risk medication use Z79.899 ; Cigarette nicotine dependence without complication F17.210 and Morbid obesity, unspecified obesity type E66.01 [facility] [address] [id number] [address] [place] [address] Mar, Osteoarthritis M19.90 [facility] [address] [id number] [address] [place] [address] December, Osteoarthritis M19.90 [facility] [address] [facility] [id number] [address] [place] [phone] December, [facility] [address] [facility] [id number] [address] [place] [phone] Oct, [facility] [address] [facility] [id number] [address] [place] [phone] Oct, [facility] [address] [facility] [id number] [address] [place] [address] Aug, [facility] [address] [facility] [id number] [address] [place] [phone] Jul, [facility] [address] [facility] [id number] [address] [place] [phone] Jul, [facility] [address] [facility] [id number] [address] [place] [phone] Jul, Diabetes E11.9 ; Encounter f or immunization Z23 ; Abnormal mammogram R92.8 ; Acquired hypothyroidism E03.9 ; High risk medication use Z79.899 ; Osteoarthritis M19.90 and Cigarette nicotine dependence without complication F17.210 [facility] [address] [facility] [id number] [address] [place] [phone] Jul, [facility] [address] 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 [facility] [address] [id number] [address] [place] [id number] Feb, [facility] [address] [id number] [address] [place] [phone] Jan, [facility] [address] [id number] [address] [place] [id number] December, [facility] [address] [id number] [address] [place] [id number] Nov, [facility] [address] [id number] [address] [place] [id number] Nov, [facility] [address] [id number] [address] [place] [phone] Oct, [facility] [address] [id number] [address] [place] [id number] Oct, [facility] [address] [id number] [address] [place] [id number] Oct, [facility] [address] [id number] [address] [place] [id number] Oct, [facility] [address] [id number] [address] [place] [id number] 16 Oct, 2014 [facility] [address] [id number] [address] [place] [address], [place] [id number] Oct, [facility] [address] [id number] [address] [place] [address], [place] [id number] Sep, [facility] [address] [id number] [address] [place] [address], [place] [id number] Sep, [facility] [address] [id number] [address] [place] [address], [place] [id number] Sep, [facility] [address] [id number] [address] [place] [address], [place] [id number] Sep, [facility] [address] [id number] [address] [place] [address], [place] [id number] Aug, [facility] [address] [id number] [address] [place] [address], [place] [id number] Aug, [facility] [address] [id number] [address] [place] [address], [place] [id number] Aug, [facility] [address] [id number] [address] [place] [address], [place] [id number] Aug, [facility] [address] [id number] [address] [place] [address], [place] [id number] Aug, [facility] [address] [id number] [address] [place] [address], [place] [id number] Aug, [facility] [address] [id number] [address] [place] [address], [place] [id number] Jul, [facility] [address] [id number] [address] [place] [address], [place] [id number] Jul, [facility] [address] [id number] [address] [place] [address], [place] [id number] Jul, [facility] [address] [id number] [address] [place] [address], [place] [id number] Jul, [facility] [address] [id number] [address] [place] [address], [place] [id number] Jul, [facility] [facility] [address] [id number] [address] [place] [address], [place] [address] Jul, [facility] [address] [id number] [address] [place] [address], [place] [address] Jun, [facility] [address] [id number] [address] [place] [address], [place] [address] Jun, [facility] [address] [id number] [address] [place] [address], [place] [address] Jun, [facility] [address] [id number] [address] [place] [address], [place] [address] Jun, [facility] [address] [id number] [address] [place] [address], [place] [address] Jun, [facility] [address] [id number] [address] [place] [address], [place] [address] Jun, [facility] [address] [id number] [address] [place] [address], [place] [address] Jun, [facility] [address] [id number] [address] [place] [address], [place] [address] Jun, [facility] [address] [id number] [address] [place] [address], [place] [address] Jun, [facility] [address] [id number] [address] [place] [address], [place] [address] May, [facility] [address] [id number] [address] [place] [id number] May, [facility] [address] [id number] [address] [place] [address], [place] [address] Apr, [facility] [address] [id number] [address] [place] [address], [place] [address] Apr, [facility] [address] [id number] [address] [place] [address], [place] [address] Apr, [facility] [address] [id number] [address] [place] [address], [place] [address] Apr, 2013 [facility] [address] [id number] [facility] [place] [address] 11 Apr, 2013 [facility] [address] [id number] [address] [place] [address], [place] [address] Apr, 2013 [facility] [address] [id number] [address] [place] [address], [place] [address] Apr, 2013 [facility] [address] [id number] [address] [place] [address], [place] [address] Apr, 2013 [facility] [address] [id number] [address] [place] [address], [place] [address] Apr, 2013 [facility] [address] [id number] [address] [place] [address], [place] [address] Apr, 2013 [facility] [address] [id number] [address] [place] [address], [place] [address] Mar, [facility] [address] [id number] [address] [place] [address], [place] [address] Mar, [facility] [address] [id number] [address] [place] [address], [place] [address] Mar, [facility] [address] [id number] [address] [place] [address], [place] [address] Mar, [facility] [address] [id number] [address] [place] [address], [place] [address] Mar, [facility] [address] [id number] [address] [place] [address], [place] [address] Mar, [facility] [address] [id number] [address] [place] [address], [place] [address] Feb, [facility] [address] [id number] [address] [place] [address], [place] [address] Feb, [facility] [address] [id number] [address] [place] [address], [place] [address] Feb, [facility] [address] [id number] [address] [place] [address], [place] [address] Feb, [facility] [address] [id number] [address] [place] [address], [place] [address] Jan, [facility] [address] [id number] [address] [place] [address], [place] [address] Jan, [facility] [address] [id number] [address] [place] [address], [place] [address] Jan, [facility] [address] [id number] [address] [place] [address], [place] [address] Jan, [facility] [address] [id number] [address] [place] [address], [place] [address] Oct, [facility] [address] [id number] [address] [place] [address], [place] [address] Oct, [facility] [address] [id number] [address] [place] [address], [place] [address] Sep, [facility] [address] [id number] [address] [place] [address], [place] [address] Sep, [facility] [address] [id number] [address] [place] [address], [place] [address] Sep, [facility] [address] [id number] [address] [place] [address], [place] [address] Sep, [facility] [address] [id number] [address] [place] [address], [place] [address] Aug, [facility] [address] [id number] [address] [place] [address], [place] [address] Aug, [facility] [address] [id number] [address] [place] [address], [place] [address] Aug, [facility] [address] [id number] [address] [place] [address], [place] [address] Aug, [facility] [address] [id number] [address] [place] [address] 30 Jul, 2013 [facility] [address] [id number] [address] [place] [address], [place] [address] 30 Jul, 2013 [facility] [address] [id number] [address] [place] [address], [place] [address] Jul, [facility] [address] [id number] [address] [place] [address], [place] [address] Jul, [facility] [address] [id number] [address] [place] [address], [place] [address] Jul, [facility] [address] [id number] [address] [place] [address], [place] [address] Jul, [facility] [address] [id number] [address] [place] [address], [place] [address] Jun, [facility] [address] [id number] [address] [place] [address], [place] [address] Jun, [facility] [address] [id number] [address] [place] [address], [place] [address] Jun, [facility] [address] [id number] [address] [place] [id number] Jun, [facility] [address] [id number] [address] [place] [address], [place] [address] Jun, [facility] [address] [id number] [address] [place] [address] Jun, [facility] [address] [id number] [address] [place] [address] May, [facility] [address] [id number] [address] [place] [address], [place] [address] May, [facility] [address] [id number] [address] [place] [address], [place] [address] May, [facility] [address] [id number] [address] [place] [address], [place] [address] May, [facility] [address] [id number] [address] [place] [address], [place] [address] May, [facility] [address] [id number] [address] [place] [address], [place] [address] May, [facility] [address] [id number] [address] [place] [address], [place] [address] May, [facility] [address] [id number] [address] [place] [address], [place] [address] May, [facility] [address] [id number] [address] [place] [address], [place] [address] Apr, [facility] [address] [id number] [address] [place] [address], [place] [address] Apr, [facility] [address] [id number] [address] [place] [address], [place] [address] Mar, [facility] [address] [id number] [address] [place] [address], [place] [address] Mar, [facility] [address] [id number] [address] [place] [address], [place] [address] Mar, [facility] [address] [id number] [address] [place] [address], [place] [address] Mar, [facility] [address] [id number] [address] [place] [address], [place] [address] Feb, [facility] [address] [id number] [address] [place] [address], [place] [address] Jan, [facility] [address] [id number] [address] [place] [address], [place] [address] December, [facility] [address] [id number] [address] [place] [address], [place] [address] December, [facility] [address] [id number] [address] [place] [address], [place] [address] December, [facility] [address] [id number] [address] [place] [address], [place] [address] Nov, [facility] [address] [id number] [address] [place] [address], [place] [address] Nov, [facility] [address] [id number] [address] [place] [address], [place] [address] 14 Sep, 2012 [facility] [address] [id number] [address] [place] [address], [place] [address] Sep, [facility] [address] [id number] [address] [place] [address], [place] [address] Sep, [facility] [address] [id number] [address] [place] [address], [place] [address] Sep, [facility] [address] [id number] [address] [place] [address], [place] [address] Aug, [facility] [address] [id number] [address] [place] [address], [place] [address] Aug, [facility] [address] [id number] [address] [place] [address], [place] [address] Aug, [facility] [address] [id number] [address] [place] [address], [place] [address] Aug, [facility] [address] [id number] [address] [place] [address], [place] [address] Jul, [facility] [address] [id number] [address] [place] [address], [place] [address] Jul, [facility] [address] [id number] [address] [place] [address], [place] [address] Jul, [facility] [address] [id number] [address] [place] [address], [place] [address] Jul, [facility] [address] [id number] [address] [place] [address], [place] [address] Jun, [facility] [address] [id number] [address] [place] [address], [place] [address] Jun, [facility] [address] [id number] [address] [place] [address], [place] [address] 08 Jun, 2012 [facility] [address] [id number] [address] [place] [address], [place] [address] Jun, [facility] [address] [id number] [address] [place] [address], [place] [address] May, [facility] [address] [id number] [address] [place] [address], [place] [address] May, [facility] [address] [id number] [address] [place] [address], [place] [address] May, [facility] [address] [id number] [address] [place] [address], [place] [address] May, [facility] [address] [id number] [address] [place] [address], [place] [address] May, [facility] [address] [id number] [address] [place] [address], [place] [address] 10 Apr, 2012 [facility] [address] [id number] [address] [place] [address], [place] [address] 08 Apr, 2012 [facility] [address] [id number] [address] [place] [address], [place] [address] 07 Apr, 2012 [facility] [address] [id number] [address] [place] [address], [place] [address] 06 Apr, 2012 [facility] [address] [id number] [address] [place] [address], [place] [address] Mar, [facility] [address] [id number] [address] [place] [address], [place] [address] Mar, [facility] [address] [id number] [address] [place] [address], [place] [address] Feb, [facility] [address] [id number] [address] [place] [address], [place] [address] Feb, [facility] [address] [id number] [address] [place] [address], [place] [address] Feb, [facility] [address] [id number] [address] [place] [address], [place] [address] Jan, [facility] [address] [id number] [address] [place] [address], [place] [address] Jan, [facility] [address] [id number] [address] [place] [address], [place] [address] December, [facility] [address] [id number] [address] [place] [address], [place] [address] December, [facility] [address] [id number] [address] [place] [address], [place] [address] Nov, [facility] [address] [id number] [address] [place] [address], [place] [address] Oct, [facility] [address] [id number] [address] [place] [address], [place] [address] Oct, [facility] [address] [id number] [address] [place] [address], [place] [address] Sep, [facility] [address] [id number] [address] [place] [address], [place] [address] Sep, [facility] [address] [id number] [address] [place] [address], [place] [address] Aug, [facility] [address] [id number] [address] [place] [address], [place] [address] Aug, [facility] [address] [id number] [address] [place] [address], [place] [address] Jul, [facility] [address] [id number] [address] [place] [address], [place] [address] Jul, [facility] [address] [id number] [address] [place] [address], [place] [address] Jul, [facility] [address] [id number] [address] [place] [address], [place] [address] Jun, [facility] [address] [id number] [address] [place] [id number] 07 Jun, 2011 [facility] [address] [id number] [address] [place] [address], [place] [address] 13 May, 2011 [facility] [address] [id number] [address] [place] [address] 11 May, 2011 [facility] [address] [id number] [address] [place] [address], [place] [address] 11 May, 2011 [facility] [address] [id number] [address] [place] [id number] 09 Jul, 2010 [facility] [address] [id number] [address] [place] [address], [place] [address] 08 Jul, 2010 [facility] [address] [id number] [address] [place] [address], [place] [address] 15 Jun, 2010 [facility] [address] [id number] [address] [place] [address] May, [facility] [address] [id number] [address] [place] [address], [place] [address] May, [facility] [address] [id number] [address] [place] [address] 14 Aug, 2009 [facility] [address] [id number] [address] [place] [address] Jul, [facility] [address] [id number] [address] [place] [address] Jun, [facility] [address] [id number] [address] [place] [address] Jun, [facility] [address] [id number] [address] [place] [address] Jun, [facility] [address] [id number] [address] [place] [address] Jun, [facility] [address] [id number] [address] [place] [address] Jun, [facility] [address] [facility] [id number] [address] [place] [address] May, [facility] [address] [facility] [id number] [address] [place] [id number] Sep, IMMUNIZATIONS No Known Immunizations SOCIAL HISTORY [...]
--- OUTSIDE RECORDS SUMMARY | 2020-01-28 14:35 | XMS REPORT ---
Author Author Katarina Manzanares Doctor Organization [facility] Address Unknown Phone Unavailable Care Team Providers Care Bend Sorter Name Role Phone Migration, Doctor Unavailable Unavailable PROBLEMS Type Condition ICD9-CM Code WAN06-LK Code Onset Dates Condition S tatus SNOMED Code Problem Chronic obstructive pulmonary disease, unspecified COPD ty pe J44.9 Active 03157498 Problem Cigarette nicotine dependence without complication F17.210 Active 68271682 Problem Osteoarthritis M19.90 Active 46228 5006 Problem High risk medication use Z79.899 Activ e 620397541 Problem Acquired hypothyroidism E03.9 Active 936540379 Problem History of cataract surgery Z98.49 Ac tive 549554467 Problem Urinary incontinence, unspecified type R32 Active 904392222 Problem MCC (current) use of anticoagulants Z79.01 Active 058204360 Problem Chronic atrial fibrillation I48.2 Ac tive 768220270 Problem Encounter for immunization Z23 Act essie 395361280 Problem Other chronic pain G89.29 Active 8 9843195 Problem Diabetes E11.9 Active 450968299 Problem Morbid obesity, unspecified obesity type E66.01 Active 767626299 Problem Irregular heart beats I49.9 Active 309294504 Problem Other urinary incontinence N39.498 Act essie 276089761 Problem Essential hypertension I10 Active 34936504 ALLERGIES No Information ENCOUNTERS Encounter Location Date Diagnosis [facility] [address] [facility] [id number] [address] [place] [phone] Feb, [facility] [address] [facility] [id number] [address] [place] [phone] December, Osteoarthritis M19.90 [facility] [address] [facility] [id number] [address] [place] [phone] Nov, [facility] [address] [facility] [id number] [address] [place] [phone] Nov, Osteoarthritis M19.90 [facility] [address] [facility] [id number] [address] [place] [address] Oct, Osteoarthritis M19.90 [facility] [address] [facility] [id number] [address] [place] [phone] Sep, Osteoarthritis M19.90 [facility] [address] [facility] [id number] [address] [place] [address] Sep, long term (current) use of a nticoagulants Z79.01 ; BMI 45.0-49.9, adult Z68.42 ; Diabetes E11.9 ; Chronic atrial fibrillation I48.2 and Chronic obstructive pulmonary disease, unspecified COPD type J44.9 [facility] [address] [id number] [address] [place] [phone] Sep, Diabetes E11.9 ; MCC ( current) use of anticoagulants Z79.01 ; Chronic atrial fibrillation I48.2 ; Chronic obstructive pulmonary disease, unspecified COPD type J44.9 and BMI 45.0-49.9, adult Z68.42 [facility] [address] [id number] [address] [place] [phone] Aug, Osteoarthritis M19.90 [facility] [address] [facility] [id number] [address] [place] [phone] Aug, [facility] [address] [facility] [id number] [address] [place] [phone] Aug, MCC (current) use of a nticoagulants Z79.01 ; BMI 45.0-49.9, adult Z68.42 ; Diabetes E11.9 and Chronic atrial fibrillation I48.2 [facility] [address] [id number] [address] [place] [phone] Aug, [facility] [address] [id number] [address] [place] [address] Jul, Osteoarthritis M19.90 [facility] [address] [facility] [id number] [address] [place] [phone] Jun, Osteoarthritis M19.90 [facility] [address] [id number] [address] [place] [phone] Jun, MCC (current) use of a nticoagulants Z79.01 [facility] [address] [id number] [address] [place] [phone] Jun, Chronic atrial fibrillation I48.2 and MCC (current) use of anticoagulants Z79.01 [place] [address] [facility] [id number] [address] [place] [address] Jun, Osteoarthritis M19.90 [place] [address] [facility] [id number] [address] [place] [address] May, Encounter for immunization Z 23 [facility] [address] [id number] [address] [place] [address] May, MCC (current) use of a nticoagulants Z79.01 [place] [address] [facility] [id number] [address] [place] [address] May, Osteoarthritis M19.90 [place] [address] [facility] [id number] [address] [place] [address] May, [place] [address] [facility] [id number] [address] [place] [address] May, Diabetes E11.9 ; MCC ( current) use of anticoagulants Z79.01 ; Chronic atrial fibrillation I48.2 ; BMI 45.0-49.9, adult Z68.42 ; Osteoarthritis M19.90 ; Low back pain M54.5 and Other chronic pain G89.29 [place] [address] [facility] [id number] [address] [place] [address] Apr, Chronic atrial fibrillation I48.2 [place] [address] [facility] [id number] [address] [place] [phone] 13 Apr, 2018 MCC (current) use of a nticoagulants Z79.01 [place] [address] [facility] [id number] [address] [place] [address] Apr, Osteoarthritis M19.90 [facility] [address] [id number] [address] [place] [phone] Apr, long term (current) use of a nticoagulants Z79.01 and Chronic atrial fibrillation I48.2 [facility] [address] [id number] [address] [place] [address] Mar, Osteoarthritis M19.90 [facility] [address] [id number] [address] [place] [address] Feb, Osteoarthritis M19.90 [facility] [address] [id number] [address] [place] [address] Jan, Osteoarthritis M19.90 [facility] [address] [id number] [address] [place] [phone] December, [facility] [address] [id number] [address] [place] [address] December, Osteoarthritis M19.90 [facility] [address] [id number] [address] [place] [address] Nov, Diabetes E11.9 ; MCC ( current) use of anticoagulants Z79.01 ; Acquired hypothyroidism E03.9 ; Cigarette nicotine dependence without complication F17.210 ; Osteoarthritis M19.90 ; BMI 45.0-49.9, adult Z68.42 and Chronic atrial fibrillation I48.2 [facility] [address] [id number] [address] [place] [address] Nov, Osteoarthritis M19.90 [facility] [address] [id number] [address] [place] [address] Oct, Osteoarthritis M19.90 [facility] [address] [id number] [address] [place] [address] Oct, long term (current) use of a nticoagulants Z79.01 [facility] [address] [id number] [address] [place] [address] Sep, Osteoarthritis M19.90 [facility] [address] [id number] [address] [place] [address] Sep, [facility] [address] [facility] [id number] [address] [place] [address] Aug, Osteoarthritis M19.90 [facility] [address] [id number] [address] [place] [address] Jul, Osteoarthritis M19.90 [facility] [address] [id number] [address] [place] [address] Jul, Osteoarthritis M19.90 [facility] [address] [id number] [address] [place] [address] Jun, Diabetes E11.9 ; Encounter f or immunization Z23 ; long term (current) use of anticoagulants Z79.01 ; Chronic atrial fibrillation I48.2 ; Osteoarthritis M19.90 ; Tobacco abuse Z72.0 and Bug bite, initial encounter W57.XXXA [place] [address] [facility] [id number] [address] [place] [address] May, Osteoarthritis M19.90 [facility] [address] [id number] [address] [place] [address] Apr, Osteoarthritis M19.90 [facility] [address] [id number] [address] [place] [address] Mar, Chronic atrial fibrillation I48.2 [facility] [address] [facility] [id number] [address] [place] [address] Mar, [facility] [address] [id number] [address] [place] [address] Mar, Osteoarthritis M19.90 [facility] [address] [id number] [address] [place] [phone] Mar, MCC (current) use of a nticoagulants Z79.01 and Chronic atrial fibrillation I48.2 [facility] [address] [id number] [address] [place] [phone] Mar, Chronic atrial fibrillation I48.2 and long term (current) use of anticoagulants Z79.01 [facility] [address] [id number] [address] [place] [address] Mar, MCC (current) use of a nticoagulants Z79.01 [facility] [address] [id number] [address] [place] [phone] Mar, MCC (current) use of a nticoagulants Z79.01 [facility] [address] [id number] [address] [place] [phone] Mar, Osteoarthritis M19.90 [facility] [address] [id number] [address] [place] [phone] Feb, Encounter for screening mamm ogram for malignant neoplasm of breast Z12.31 [facility] [address] [id number] [address] [place] [address] Feb, Osteoarthritis M19.90 [facility] [address] [id number] [address] [place] [phone] Jan, [facility] [address] [id number] [address] [place] [phone] Jan, long term (current) use of a nticoagulants Z79.01 ; Diabetes E11.9 ; Osteoarthritis M19.90 and Breast cancer screening Z12.39 [facility] [address] [id number] [address] [place] [address] Jan, Osteoarthritis M19.90 [facility] [address] [id number] [address] [place] [address] Jan, Osteoarthritis M19.90 [facility] [address] [id number] [address] [place] [phone] Jan, [facility] [address] [id number] [address] [place] [address] December, Osteoarthritis M19.90 [facility] [address] [id number] [address] [place] [address] December, Osteoarthritis M19.90 [facility] [address] [id number] [id number] Nov, [facility] [address] [id number] [address] [place] [phone] Nov, [facility] [address] [id number] [address] [place] [phone] Nov, [facility] [address] [id number] [address] [place] [phone] Nov, Diabetes E11.9 [facility] [address] [id number] [address] [place] [address] Nov, [facility] [address] [facility] [id number] [address] [place] [address] Oct, Osteoarthritis M19.90 [facility] [address] [id number] [address] [place] [address] Oct, Osteoarthritis M19.90 ; MCC (current) use of anticoagulants Z79.01 ; Diabetes E11.9 ; Cigarette nicotine dependence without complication F17.210 and Chronic atrial fibrillation I48.2 [facility] [address] [id number] [address] [place] [phone] Aug, [facility] [address] [id number] [address] [place] [address] Aug, MCC (current) use of a nticoagulants Z79.01 [facility] [address] [id number] [address] [place] [phone] Aug, [facility] [address] [id number] [id number] Aug, [facility] [address] [id number] [address] [place] [phone] Aug, [facility] [address] [id number] [address] [place] [phone] Aug, [facility] [id number] [place] [id number] Aug, [facility] [address] [place] [id number] Aug Osteoarthritis M19.90 and Essential hypertension I10 [place] [address] [place] [id number] [address] [place] [address] Aug, Other urinary incontinence N 39.498 [place] [address] [address] Jul, Osteoarthritis M19.90 [place] [address] [address] Jun, Diabetes E11.9 ; Encounter f or immunization Z23 ; Osteoarthritis M19.90 ; MCC (current) use of anticoagulants Z79.01 ; Cigarette nicotine dependence without complication F17.210 ; Acquired hypothyroidism E03.9 ; Morbid obesity, unspecified obesity type E66.01 and Irregular heart beats I49.9 [place] [address] [place] [id number] [address] [place] [address] Jun, Osteoarthritis M19.90 [place] [address] [address] May, Osteoarthritis M19.90 [place] [address] [address] May, Urinary incontinence, unspec ified type R32 [place] [address] [place] [id number] [address] [place] [address] May, [place] [address] [place] [id number] [address] [place] [address] Apr, Osteoarthritis M19.90 [place] [address] [address] Apr, long term (current) use of a nticoagulants Z79.01 [place] [address] [place] [id number] [address] [place] [address] Apr, [place] [address] [facility] [id number] [address] [place] [address] Apr, Osteoarthritis M19.90 [facility] [address] [facility] [id number] [address] [place] [address] Mar, Diabetes E11.9 ; Hypothyroid ism, unspecified type E03.9 ; Osteoarthritis M19.90 ; High risk medication use Z79.899 ; Cigarette nicotine dependence without complication F17.210 and Morbid obesity, unspecified obesity type E66.01 [facility] [address] [id number] [address] [place] [address] Mar, Osteoarthritis M19.90 [facility] [address] [id number] [address] [place] [address] December, Osteoarthritis M19.90 [place] [address] [facility] [id number] [address] [place] [address] December, [facility] [address] [id number] [address] [place] [phone] Oct, [facility] [address] [facility] [id number] [address] [place] [phone] Oct, [facility] [address] [facility] [id number] [address] [place] [address] Aug, [facility] [address] [facility] [id number] [address] [place] [phone] Jul, [facility] [address] [facility] [id number] [address] [place] [phone] Jul, [facility] [address] [facility] [id number] [address] [place] [address] Jul, Diabetes E11.9 ; Encounter f or immunization Z23 ; Abnormal mammogram R92.8 ; Acquired hypothyroidism E03.9 ; High risk medication use Z79.899 ; Osteoarthritis M19.90 and Cigarette nicotine dependence without complication F17.210 [facility] [address] [id number] [address] [place] [address] Jul, [facility] [address] [id number] [address] [place] [address] Jun, Abnormal mammogram R92.8 [facility] [address] [id number] [address] [place] [phone] Apr, [facility] [address] [id number] [address] [place] [address] Apr, [facility] [address] [id number] [address] [place] [phone] Mar, [facility] [address] [id number] [address] [place] [phone] Mar, 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 [facility] [address] [id number] [address] [place] [phone] Feb, [facility] [address] [id number] [address] [place] [phone] Jan, [facility] [address] [id number] [address] [place] [address] December, [facility] [address] [id number] [address] [place] [phone] Nov, [facility] [address] [id number] [address] [place] [address] Nov, [facility] [address] [id number] [address] [place] [phone] Oct, [facility] [address] [id number] [address] [place] [phone] Oct, [facility] [address] [id number] [address] [place] [phone] Oct, [facility] [address] [id number] [address] [place] [phone] 17 Oct, 2014 [facility] [address] [id number] [address] [place] [phone] Oct, [facility] [address] [id number] [address] [place] [address], [place] [address] Oct, [facility] [address] [id number] [address] [place] [address], [place] [address] Sep, [facility] [address] [id number] [address] [place] [address], [place] [address] Sep, [facility] [address] [id number] [address] [place] [address], [place] [address] Sep, [facility] [address] [id number] [address] [place] [address], [place] [address] Sep, [facility] [address] [id number] [address] [place] [address], [place] [address] Aug, [facility] [address] [id number] [address] [place] [address], [place] [address] Aug, [facility] [address] [id number] [address] [place] [address], [place] [address] Aug, [facility] [address] [id number] [address] [place] [address], [place] [address] Aug, [facility] [address] [id number] [address] [place] [address], [place] [address] Aug, [facility] [address] [id number] [address] [place] [address], [place] [address] Aug, [facility] [address] [id number] [address] [place] [address], [place] [address] Jul, [facility] [address] [id number] [address] [place] [address], [place] [address] Jul, [facility] [address] [id number] [address] [place] [address], [place] [address] Jul, [facility] [address] [id number] [address] [place] [address], [place] [address] Jul, [facility] [address] [id number] [address] [place] [address], [place] [address] Jul, [facility] [address] [id number] [address] [place] [address], [place] [address] Jul, [facility] [address] [id number] [address] [place] [address], [place] [address] Jun, [facility] [address] [id number] [address] [place] [address], [place] [address] Jun, [facility] [address] [id number] [address] [place] [address], [place] [address] Jun, [facility] [address] [id number] [address] [place] [address], [place] [address] Jun, [facility] [address] [id number] [address] [place] [address], [place] [address] Jun, [facility] [address] [id number] [address] [place] [address], [place] [address] Jun, [facility] [address] [id number] [address] [place] [address], [place] [address] Jun, [facility] [address] [id number] [address] [place] [address], [place] [address] Jun, [facility] [address] [id number] [address] [place] [address], [place] [address] Jun, [facility] [address] [id number] [address] [place] [address], [place] [address] May, [facility] [address] [id number] [address] [place] [address], [place] [address] May, [facility] [address] [id number] [address] [place] [address], [place] [address] Apr, [facility] [address] [id number] [address] [place] [address], [place] [address] Apr, [facility] [address] [id number] [address] [place] [address], [place] [address] Apr, [facility] [address] [id number] [address] [place] [address], [place] [address] Apr, 2013 [facility] [address] [id number] [address] [place] [address], [place] [address] Apr, 2013 [facility] [address] [id number] [address] [place] [address], [place] [address] Apr, 2013 [facility] [address] [id number] [address] [place] [address], [place] [address] Apr, 2013 [facility] [address] [id number] [address] [place] [address], [place] [address] Apr, 2013 [facility] [address] [id number] [address] [place] [address], [place] [address] Apr, 2013 [facility] [address] [id number] [address] [place] [address], [place] [address] Apr, 2013 [facility] [address] [id number] [address] [place] [address], [place] [address] Mar, [facility] [address] [id number] [address] [place] [address], [place] [address] Mar, [facility] [address] [id number] [address] [place] [address], [place] [address] Mar, [facility] [address] [id number] [address] [place] [address], [place] [address] Mar, [facility] [address] [id number] [address] [place] [address], [place] [address] Mar, [facility] [address] [id number] [address] [place] [address], [place] [address] Mar, [facility] [address] [id number] [address] [place] [address], [place] [address] Feb, [facility] [address] [id number] [address] [place] [address], [place] [address] Feb, [facility] [address] [id number] [address] [place] [address], [place] [address] Feb, [facility] [address] [id number] [address] [place] [address], [place] [address] Feb, [facility] [address] [id number] [address] [place] [address], [place] [address] Jan, [facility] [address] [id number] [address] [place] [address], [place] [address] Jan, [facility] [address] [id number] [address] [place] [address], [place] [address] Jan, [facility] [address] [id number] [address] [place] [address], [place] [address] Jan, [facility] [address] [id number] [address] [place] [address], [place] [address] Oct, [facility] [address] [id number] [address] [place] [address], [place] [address] Oct, [facility] [address] [id number] [address] [place] [address], [place] [address] Sep, [facility] [address] [id number] [address] [place] [address], [place] [address] Sep, [facility] [address] [id number] [address] [place] [address], [place] [address] Sep, [facility] [address] [id number] [address] [place] [address], [place] [address] Sep, [facility] [address] [id number] [address] [place] [address], [place] [address] Aug, [facility] [address] [id number] [address] [place] [address], [place] [address] Aug, [facility] [address] [id number] [address] [place] [address], [place] [address] Aug, [facility] [address] [id number] [address] [place] [address], [place] [address] Aug, [facility] [address] [id number] [address] [place] [address], [place] [address] 30 Jul, 2013 [facility] [address] [id number] [address] [place] [address], [place] [address] 30 Jul, 2013 [facility] [address] [id number] [address] [place] [address], [place] [address] 14 Jul, 2013 [facility] [address] [id number] [address] [place] [address], [place] [address] 14 Jul, 2013 [facility] [address] [id number] [address] [place] [address], [place] [address] Jul, [facility] [address] [id number] [address] [place] [address], [place] [address] Jul, [facility] [address] [id number] [address] [place] [address], [place] [address] Jun, [facility] [address] [id number] [address] [place] [address], [place] [address] Jun, [facility] [address] [id number] [address] [place] [address], [place] [address] Jun, [facility] [address] [id number] [address] [place] [address], [place] [address] Jun, [facility] [address] [id number] [address] [place] [address], [place] [address] Jun, [facility] [address] [id number] [address] [place] [address], [place] [address] Jun, [facility] [address] [id number] [address] [place] [address], [place] [address] May, [facility] [address] [id number] [address] [place] [address], [place] [address] May, [facility] [address] [id number] [address] [place] [address], [place] [address] May, [facility] [address] [id number] [address] [place] [address], [place] [address] May, [facility] [address] [id number] [address] [place] [address], [place] [address] May, [facility] [address] [id number] [address] [place] [address], [place] [address] May, [facility] [address] [id number] [address] [place] [address], [place] [address] May, [facility] [address] [id number] [address] [place] [address], [place] [address] May, [facility] [address] [id number] [address] [place] [address], [place] [address] Apr, [facility] [address] [id number] [address] [place] [address], [place] [address] Apr, [facility] [address] [id number] [address] [place] [address], [place] [address] Mar, [facility] [address] [id number] [address] [place] [address], [place] [address] Mar, [facility] [address] [id number] [address] [place] [address], [place] [address] Mar, [facility] [address] [id number] [address] [place] [address], [place] [address] Mar, [facility] [address] [id number] [address] [place] [address], [place] [address] Feb, [facility] [address] [id number] [address] [place] [address] Jan, [facility] [address] [id number] [address] [place] [address], [place] [address] December, [facility] [address] [id number] [address] [place] [address], [place] [address] December, [facility] [address] [id number] [address] [place] [address], [place] [address] December, [facility] [address] [id number] [address] [place] [address], [place] [address] Nov, [facility] [address] [id number] [address] [place] [address], [place] [address] Nov, [facility] [address] [id number] [address] [place] [address], [place] [address] 14 Sep, 2012 [facility] [address] [id number] [address] [place] [address], [place] [address] 14 Sep, 2012 [facility] [address] [id number] [address] [place] [address], [place] [address] 14 Sep, 2012 [facility] [address] [id number] [address] [place] [address], [place] [address] Sep, [facility] [address] [id number] [address] [place] [address], [place] [address] Aug, [facility] [address] [id number] [address] [place] [address], [place] [address] Aug, [facility] [address] [id number] [address] [place] [address], [place] [address] Aug, [facility] [address] [id number] [address] [place] [address], [place] [address] Aug, [facility] [address] [id number] [address] [place] [address], [place] [address] Jul, [facility] [address] [id number] [address] [place] [address], [place] [address] Jul, [facility] [address] [id number] [address] [place] [address], [place] [address] Jul, [facility] [address] [id number] [address] [place] [address], [place] [address] Jul, [facility] [address] [id number] [address] [place] [address], [place] [address] Jun, [facility] [address] [id number] [address] [place] [address], [place] [address] Jun, [facility] [address] [id number] [address] [place] [address], [place] [address] Jun, [facility] [address] [id number] [address] [place] [address], [place] [address] Jun, [facility] [address] [id number] [address] [place] [address], [place] [address] May, [facility] [address] [id number] [address] [place] [address], [place] [address] May, [facility] [address] [id number] [address] [place] [address], [place] [address] May, [facility] [address] [id number] [address] [place] [address], [place] [address] May, [facility] [address] [id number] [address] [place] [address], [place] [address] May, [facility] [address] [id number] [address] [place] [address], [place] [address] 10 Apr, 2012 [facility] [address] [id number] [address] [place] [address], [place] [address] Apr, [facility] [address] [id number] [address] [place] [address], [place] [address] 07 Apr, 2012 [facility] [address] [id number] [address] [place] [address], [place] [address] Apr, [facility] [address] [id number] [address] [place] [address], [place] [address] Mar, [facility] [address] [id number] [address] [place] [address], [place] [address] Mar, [facility] [address] [id number] [address] [place] [address], [place] [address] Feb, [facility] [address] [id number] [address] [place] [address], [place] [address] Feb, [facility] [address] [id number] [address] [place] [address] [place] [address] Feb, [facility] [address] [id number] [address] [place] [address], [place] [address] Jan, [facility] [address] [id number] [address] [place] [address], [place] [address] Jan, [facility] [address] [id number] [address] [place] [address], [place] [address] December, [facility] [address] [id number] [address] [place] [address], [place] [address] December, [facility] [address] [id number] [address] [place] [address], [place] [address] Nov, [facility] [address] [id number] [address] [place] [address], [place] [address] Oct, [facility] [address] [id number] [address] [place] [address], [place] [address] Oct, [facility] [address] [id number] [address] [place] [address], [place] [address] Sep, [facility] [address] [id number] [address] [place] [address], [place] [address] Sep, [facility] [address] [id number] [address] [place] [address], [place] [address] Aug, [facility] [address] [id number] [address] [place] [address], [place] [address] Aug, [facility] [address] [id number] [address] [place] [address], [place] [address] Jul, [facility] [address] [id number] [address] [place] [address], [place] [address] Jul, [facility] [address] [id number] [address] [place] [address], [place] [address] Jul, [facility] [address] [id number] [address] [place] [address], [place] [address] Jun, [facility] [address] [id number] [address] [place] [address], [place] [address] 07 Jun, 2011 [facility] [address] [id number] [address] [place] [address], [place] [address] 13 May, 2011 [facility] [address] [id number] [address] [place] [address], [place] [address] 11 May, 2011 [facility] [address] [id number] [address] [place] [address], [place] [address] 11 May, 2011 [facility] [address] [id number] [address] [place] [address], [place] [address] 09 Jul, 2010 [facility] [address] [id number] [address] [place] [address], [place] [address] 08 Jul, 2010 [facility] [address] [id number] [address] [place] [address], [place] [address] 15 Jun, 2010 [facility] [address] [id number] [address] [place] [address], [place] [address] May, [facility] [address] [id number] [address] [place] [address], [place] [address] May, [facility] [address] [id number] [address] [place] [address], [place] [address] 14 Aug, 2009 [facility] [address] [id number] [address] [place] [address], [place] [address] 17 Jul, 2009 [facility] [address] [id number] [address] [place] [address], [place] [address] Jun, [facility] [address] [id number] [address] [place] [address], [place] [address] Jun, [facility] [address] [id number] [address] [place] [address], [place] [address] Jun, [facility] [address] [id number] [address] [place] [address], [place] [address] 04 Jun, 2009 [facility] [address] [id number] [address] [place] [address], [place] [address] Jun, [facility] [address] [facility] [id number] [address] [place] [id number] May, [facility] [address] [facility] [id number] [address] [place] [address] Sep, IMMUNIZATIONS No Known Immunizations SOCIAL HISTORY Never Assessed REASON FOR VISIT EMR-[facility] PLAN OF CARE VITAL SIGNS MEDICATIONS Unknown [...]
--- OUTSIDE RECORDS SUMMARY | 2020-01-28 14:35 | XMS REPORT ---
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 Name Role Phone GEORGINA RODRIGUEZ Unavailable PROBLEMS Type Condition ICD9-CM Code DTQ53-EV Code Onset Dates Condition S tatus SNOMED Code Problem Chronic obstructive pulmonary disease, unspecified COPD ty pe J44.9 Active 92445778 Problem Cigarette nicotine dependence without complication F17.210 Active 84998679 Problem Osteoarthritis M19.90 Active 17522 5006 Problem High risk medication use Z79.899 Activ e 149373526 Problem Acquired hypothyroidism E03.9 Active 517267985 Problem History of cataract surgery Z98.49 Ac tive 923194325 Problem Urinary incontinence, unspecified type R32 Active 318667229 Problem snf (current) use of anticoagulants Z79.01 Active 230037484 Problem Chronic atrial fibrillation I48.2 Ac tive 329777317 Problem Encounter for immunization Z23 Act essie 393335284 Problem Other chronic pain G89.29 Active 8 0881090 Problem Diabetes E11.9 Active 009340951 Problem Morbid obesity, unspecified obesity type E66.01 Active 103851833 Problem Irregular heart beats I49.9 Active 237595279 Problem Other urinary incontinence N39.498 Act essie 103988082 Problem Essential hypertension I10 Active 40619646 ALLERGIES No Information ENCOUNTERS Encounter Location Date Diagnosis [facility] [address] [facility] [id number] [address] [place] [address] Feb, [facility] [address] [facility] [id number] [address] [place] [address] Feb, Chronic atrial fibrillation I48.2 [facility] [address] [facility] [id number] [address] [place] [address] Jan, Osteoarthritis M19.90 [facility] [address] [facility] [id number] [address] [place] [address] Jan, Chronic atrial fibrillation I48.2 [facility] [address] [id number] [address] [place] [address] Jan, Chronic atrial fibrillation I48.2 [facility] [address] [facility] [id number] [address] [place] [address] Jan, Chronic atrial fibrillation I48.2 [facility] [address] [id number] [address] [place] [address] 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, 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 [facility] [address] [id number] [address] [place] [address] December, [facility] [address] [id number] [address] [place] [address] December, [facility] [address] [facility] [id number] [address] [place] [address] December, Osteoarthritis M19.90 [facility] [address] [id number] [address] [place] [address] Nov, [facility] [address] [facility] [id number] [address] [place] [address] Nov, Osteoarthritis M19.90 [facility] [address] [facility] [id number] [address] [place] [address] Oct, Osteoarthritis M19.90 [facility] [address] [id number] [address] [place] [address] Sep, Osteoarthritis M19.90 [facility] [address] [facility] [id number] [address] [place] [address] Sep, snf (current) use of a nticoagulants Z79.01 ; BMI 45.0-49.9, adult Z68.42 ; Diabetes E11.9 ; Chronic atrial fibrillation I48.2 and Chronic obstructive pulmonary disease, unspecified COPD type J44.9 [facility] [address] [facility] [id number] [address] [place] [address] 04 Sep, 2018 Diabetes E11.9 ; 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 ; Chronic atrial fibrillation I48.2 ; Chronic obstructive pulmonary disease, unspecified COPD type J44.9 and BMI 45.0-49.9, adult Z68.42 [facility] [address] [facility] [id number] [address] [place] [address] Aug, Osteoarthritis M19.90 [facility] [address] [facility] [id number] [address] [place] [address] Aug, [place] [address] [facility] [id number] [address] [place] [address] Aug, 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 ; BMI 45.0-49.9, adult Z68.42 ; Diabetes E11.9 and Chronic atrial fibrillation I48.2 [facility] [address] [facility] [id number] [address] [place] [address] Aug, [facility] [address] [facility] [id number] [address] [place] [address] Jul, Osteoarthritis M19.90 [facility] [address] [facility] [id number] [address] [place] [address] Jun, Osteoarthritis M19.90 [facility] [address] [facility] [id number] [address] [place] [address] Jun, snf (current) use of a nticoagulants Z79.01 [facility] [address] [facility] [id number] [address] [place] [address] Jun, Chronic atrial fibrillation I48.2 and 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 [facility] [address] [facility] [id number] [address] [place] [address] Jun, Osteoarthritis M19.90 [facility] [address] [facility] [id number] [address] [place] [address] May, Encounter for immunization Z 23 [facility] [address] [id number] [address] [place] [address] 17 May, 2018 snf (current) use of a nticoagulants Z79.01 [facility] [address] [id number] [address] [place] [address] May, Osteoarthritis M19.90 [facility] [address] [facility] [id number] [address] [place] [address] May, [facility] [address] [facility] [id number] [address] [place] [address] May, Diabetes E11.9 ; 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 ; Chronic atrial fibrillation I48.2 ; BMI 45.0-49.9, adult Z68.42 ; Osteoarthritis M19.90 ; Low back pain M54.5 and Other chronic pain G89.29 [place] [address] [facility] [id number] [address] [place] [address] 20 Apr, 2018 Chronic atrial fibrillation I48.2 [place] [address] [facility] [id number] [address] [place] [address] 13 Apr, 2018 snf (current) use of a nticoagulants Z79.01 [facility] [address] [id number] [address] [place] [address] 07 Apr, 2018 Osteoarthritis M19.90 [facility] [address] [facility] [id number] [address] [place] [address] 04 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, 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 and Chronic atrial fibrillation I48.2 [facility] [address] [id number] [address] [place] [address] Mar, Osteoarthritis M19.90 [facility] [address] [facility] [id number] [address] [place] [address] Feb, Osteoarthritis M19.90 [facility] [address] [facility] [id number] [address] [place] [address] Jan, Osteoarthritis M19.90 [facility] [address] [facility] [id number] [address] [place] [address] December, [facility] [address] [facility] [id number] [address] [place] [address] December, Osteoarthritis M19.90 [facility] [address] [place] [id number] [address] [place] [address] Nov, Diabetes E11.9 ; 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 ; Acquired hypothyroidism E03.9 ; Cigarette nicotine dependence without complication F17.210 ; Osteoarthritis M19.90 ; BMI 45.0-49.9, adult Z68.42 and Chronic atrial fibrillation I48.2 [facility] [address] [facility] [id number] [address] [place] [address] Nov, Osteoarthritis M19.90 [facility] [address] [facility] [id number] [address] [place] [address] Oct, Osteoarthritis M19.90 [facility] [address] [facility] [id number] [address] [place] [address] 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, 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 [facility] [address] [facility] [id number] [address] [place] [address] Sep, Osteoarthritis M19.90 [facility] [address] [facility] [id number] [address] [place] [address] Sep, [facility] [address] [facility] [id number] [address] [place] [address] Aug, Osteoarthritis M19.90 [facility] [address] [facility] [id number] [address] [place] [address] Jul, Osteoarthritis M19.90 [facility] [address] [facility] [id number] [address] [place] [address] Jul, Osteoarthritis M19.90 [facility] [address] [place] [id number] [address] [place] [address] Jun, Diabetes E11.9 ; Encounter f or immunization Z23 ; snf (current) use of anticoagulants Z79.01 ; Chronic atrial fibrillation I48.2 ; Osteoarthritis M19.90 ; Tobacco abuse Z72.0 and Bug bite, initial encounter W57.XXXA [facility] [address] [id number] [address] [place] [address] May, Osteoarthritis M19.90 [facility] [address] [id number] [address] [place] [address] Apr, Osteoarthritis M19.90 [place] [address] [id number] [address] [place] [address] Mar, Chronic atrial fibrillation I48.2 [place] [address] [id number] [address] [place] [address] Mar, [place] [address] [id number] [address] [place] [address] Mar, Osteoarthritis M19.90 [place] [address] [id number] [address] [place] [address] Mar, snf (current) use of a nticoagulants Z79.01 and Chronic atrial fibrillation I48.2 [place] [address] [id number] [address] [place] [address] Mar, Chronic atrial fibrillation I48.2 and 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 [place] [address] [id number] [address] [place] [address] Mar, snf (current) use of a nticoagulants Z79.01 [place] [address] [id number] [address] [place] [address] 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, 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 [facility] [address] [id number] [address] [place] [address] Mar, Osteoarthritis M19.90 [facility] [address] [id number] [address] [place] [address] Feb, Encounter for screening mamm ogram for malignant neoplasm of breast Z12.31 [facility] [address] [facility] [id number] [address] [place] [address] Feb, Osteoarthritis M19.90 [facility] [address] [facility] [id number] [address] [place] [address] Jan, [facility] [address] [facility] [id number] [address] [place] [address] Jan, 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 ; Diabetes E11.9 ; Osteoarthritis M19.90 and Breast cancer screening Z12.39 [facility] [address] [facility] [id number] [address] [place] [address] Jan, Osteoarthritis M19.90 [facility] [address] [facility] [id number] [address] [place] [address] Jan, Osteoarthritis M19.90 [facility] [address] [facility] [id number] [address] [place] [address] Jan, [facility] [address] [facility] [id number] [address] [place] [address] December, Osteoarthritis M19.90 [facility] [address] [facility] [id number] [address] [place] [address] December, Osteoarthritis M19.90 [facility] [id number] [place] [id number] Nov, [facility] [address] [facility] [id number] [address] [place] [address] Nov, [facility] [address] [facility] [id number] [address] [place] [address] Nov, [facility] [address] [facility] [id number] [address] [place] [address] Nov, Diabetes E11.9 [facility] [address] [facility] [id number] [address] [place] [address] Nov, [facility] [address] [facility] [id number] [address] [place] [address] Oct, Osteoarthritis M19.90 [facility] [address] [facility] [id number] [address] [place] [address] Oct, Osteoarthritis M19.90 ; snf (current) use of anticoagulants Z79.01 ; Diabetes E11.9 ; Cigarette nicotine dependence without complication F17.210 and Chronic atrial fibrillation I48.2 [facility] [address] [facility] [id number] [address] [place] [address] Aug, [facility] [address] [facility] [id number] [address] [place] [address] Aug, 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 [facility] [address] [facility] [id number] [address] [place] [address] Aug, [facility] [address] [id number] [id number] Aug, [facility] [address] [facility] [id number] [address] [place] [address] Aug, [facility] [address] [facility] [id number] [address] [place] [address] Aug, [facility] [address] [id number] [id number] Aug, [employer] [address] [place] [id number] Aug Osteoarthritis M19.90 and Essential hypertension I10 [facility] [address] [facility] [id number] [address] [place] [address] Aug, Other urinary incontinence N 39.498 [facility] [address] [facility] [id number] [address] [place] [address] Jul, Osteoarthritis M19.90 [facility] [address] [facility] [id number] [address] [place] [address] Jun, Diabetes E11.9 ; Encounter f or immunization Z23 ; Osteoarthritis M19.90 ; 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 ; Cigarette nicotine dependence without complication F17.210 ; Acquired hypothyroidism E03.9 ; Morbid obesity, unspecified obesity type E66.01 and Irregular heart beats I49.9 [facility] [address] [facility] [id number] [address] [place] [address] Jun, Osteoarthritis M19.90 [facility] [address] [facility] [id number] [address] [place] [address] May, Osteoarthritis M19.90 [place] [address] [facility] [id number] [address] [place] [address] May, Urinary incontinence, unspec ified type R32 [facility] [address] [facility] [id number] [address] [place] [address] May, [facility] [address] [facility] [id number] [address] [place] [address] Apr, Osteoarthritis M19.90 [facility] [address] [facility] [id number] [address] [place] [address] Apr, snf (current) use of a nticoagulants Z79.01 [facility] [address] [facility] [id number] [address] [place] [address] Apr, [facility] [address] [facility] [id number] [address] [place] [address] Apr, Osteoarthritis M19.90 [facility] [address] [facility] [id number] [address] [place] [address] Mar, Diabetes E11.9 ; Hypothyroid ism, unspecified type E03.9 ; Osteoarthritis M19.90 ; High risk medication use Z79.899 ; Cigarette nicotine dependence without complication F17.210 and Morbid obesity, unspecified obesity type E66.01 [facility] [address] [facility] [id number] [address] [place] [address] Mar, Osteoarthritis M19.90 [facility] [address] [facility] [id number] [address] [place] [address] December, Osteoarthritis M19.90 [facility] [address] [facility] [id number] [address] [place] [address] December, [facility] [address] [facility] [id number] [address] [place] [address] Oct, [facility] [address] [facility] [id number] [address] [place] [address] Oct, [facility] [address] [facility] [id number] [address] [place] [address] Aug, [facility] [address] [facility] [id number] [address] [place] [address] Jul, [facility] [address] [place] [id number] [address] [place] [address] Jul, [facility] [address] [facility] [id number] [address] [place] [address] Jul, Diabetes E11.9 ; Encounter f or immunization Z23 ; Abnormal mammogram R92.8 ; Acquired hypothyroidism E03.9 ; High risk medication use Z79.899 ; Osteoarthritis M19.90 and Cigarette nicotine dependence without complication F17.210 [facility] [address] [facility] [id number] [address] [place] [address] Jul, [facility] [address] [facility] [id number] [address] [place] [address] Jun, Abnormal mammogram R92.8 [facility] [address] [facility] [id number] [address] [place] [address] Apr, [facility] [address] [facility] [id number] [address] [place] [address] Apr, [facility] [address] [facility] [id number] [address] [place] [address] Mar, [facility] [address] [facility] [id number] [address] [place] [address] Mar, Current use of usp ant 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 V58.61 [facility] [address] [id number] [address] [place] [address] Feb, [facility] [address] [id number] [address] [place] [address] Jan, [facility] [address] [id number] [address] [place] [address] December, [facility] [address] [id number] [address] [place] [address] Nov, [facility] [address] [id number] [address] [place] [address] Nov, [facility] [address] [id number] [address] [place] [address] Oct, [facility] [address] [id number] [address] [place] [address] Oct, [facility] [address] [id number] [address] [place] [address] Oct, [facility] [address] [id number] [address] [place] [address] Oct, [facility] [address] [id number] [address] [place] [address] Oct, [facility] [address] [id number] [address] [place] [address] Oct, [facility] [address] [id number] [address] [place] [address] Sep, [facility] [address] [id number] [address] [place] [address] Sep, [facility] [address] [id number] [address] [place] [address] Sep, [facility] [address] [id number] [address] [place] [address] Sep, [facility] [address] [id number] [address] [place] [address], [place] [address] Aug, [facility] [address] [id number] [address] [place] [address], [place] [address] Aug, [facility] [address] [id number] [address] [place] [address], [place] [address] Aug, [facility] [address] [id number] [address] [place] [address], [place] [address] Aug, [facility] [address] [id number] [address] [place] [address], [place] [address] Aug, [facility] [address] [id number] [address] [place] [address], [place] [address] Aug, [facility] [address] [id number] [address] [place] [address], [place] [address] Jul, [facility] [address] [id number] [address] [place] [address], [place] [address] Jul, [facility] [address] [id number] [address] [place] [address], [place] [address] Jul, [facility] [address] [id number] [address] [place] [address], [place] [address] Jul, [facility] [address] [id number] [address] [place] [address], [place] [address] Jul, [facility] [address] [id number] [address] [place] [id number] Jul, [facility] [address] [id number] [address] [place] [address], [place] [address] Jun, [facility] [address] [id number] [address] [place] [address], [place] [address] Jun, [facility] [address] [id number] [address] [place] [address], [place] [address] Jun, [facility] [address] [id number] [address] [place] [id number] Jun, [facility] [address] [id number] [address] [place] [address], [place] [address] Jun, [facility] [address] [id number] [address] [place] [address], [place] [address] Jun, [facility] [address] [id number] [address] [place] [address], [place] [address] Jun, [facility] [address] [id number] [address] [place] [address], [place] [address] Jun, [facility] [address] [id number] [address] [place] [address], [place] [address] Jun, [facility] [address] [id number] [address] [place] [address], [place] [address] May, [facility] [address] [id number] [address] [place] [id number] May, [facility] [address] [address] [id number] [address] [place] [address], [place] [address] Apr, [facility] [address] [id number] [address] [place] [address], [place] [address] Apr, [facility] [address] [id number] [address] [place] [address], [place] [address] Apr, [facility] [address] [id number] [address] [place] [address], [place] [address] Apr, 2013 [facility] [address] [id number] [address] [place] [address] 11 Apr, 2013 [facility] [address] [id number] [address] [place] [address], [place] [address] Apr, [facility] [address] [id number] [address] [place] [address], [place] [address] Apr, 2013 [facility] [address] [id number] [address] [place] [address], [place] [address] Apr, 2013 [facility] [address] [id number] [facility] [place] [address] Apr, 2013 [facility] [address] [id number] [address] [place] [address], [place] [address] Apr, [facility] [address] [id number] [address] [place] [address], [place] [address] Mar, [facility] [address] [id number] [address] [place] [address], [place] [address] Mar, [facility] [address] [id number] [address] [place] [address], [place] [address] Mar, [facility] [address] [id number] [address] [place] [address], [place] [address] Mar, [facility] [address] [id number] [address] [place] [address], [place] [address] Mar, [facility] [address] [id number] [address] [place] [address], [place] [address] Mar, [facility] [address] [id number] [address] [place] [address], [place] [address] Feb, [facility] [address] [id number] [address] [place] [address], [place] [address] Feb, [facility] [address] [id number] [address] [place] [address], [place] [address] Feb, [facility] [address] [id number] [address] [place] [address], [place] [address] Feb, [facility] [address] [id number] [address] [place] [address], [place] [address] Jan, [facility] [address] [id number] [address] [place] [address], [place] [address] Jan, [facility] [address] [id number] [address] [place] [address], [place] [address] Jan, [facility] [address] [id number] [address] [place] [address], [place] [address] Jan, [facility] [address] [id number] [address] [place] [address], [place] [address] Oct, [facility] [address] [id number] [address] [place] [address], [place] [address] Oct, [facility] [address] [id number] [address] [place] [address], [place] [address] Sep, [facility] [address] [id number] [address] [place] [address], [place] [address] Sep, [facility] [address] [id number] [address] [place] [address], [place] [address] Sep, [facility] [address] [id number] [address] [place] [address], [place] [address] Sep, [facility] [address] [id number] [address] [place] [address], [place] [address] Aug, [facility] [address] [id number] [address] [place] [address], [place] [address] Aug, [facility] [address] [id number] [address] [place] [address], [place] [address] Aug, [facility] [address] [id number] [address] [place] [address], [place] [address] Aug, [facility] [address] [id number] [address] [place] [address], [place] [address] Jul, [facility] [address] [id number] [address] [place] [address], [place] [address] 30 Jul, 2013 [facility] [address] [id number] [address] [place] [address], [place] [address] Jul, [facility] [address] [id number] [address] [place] [address], [place] [address] Jul, [facility] [address] [id number] [address] [place] [address], [place] [address] Jul, [facility] [address] [id number] [address] [place] [address], [place] [address] Jul, [facility] [address] [id number] [address] [place] [address], [place] [address] Jun, [facility] [address] [id number] [address] [place] [address], [place] [address] Jun, [facility] [address] [id number] [address] [place] [address], [place] [address] Jun, [facility] [address] [id number] [address] [place] [address], [place] [address] Jun, [facility] [address] [id number] [address] [place] [address], [place] [address] Jun, [facility] [address] [id number] [address] [place] [address], [place] [address] Jun, [facility] [address] [id number] [address] [place] [address], [place] [address] May, [facility] [address] [id number] [address] [place] [address], [place] [address] May, [facility] [address] [id number] [address] [place] [address], [place] [address] May, [facility] [address] [id number] [address] [place] [address], [place] [address] May, [facility] [address] [id number] [address] [place] [address], [place] [address] May, [facility] [address] [id number] [address] [place] [address], [place] [address] May, [facility] [address] [id number] [address] [place] [address], [place] [address] May, [facility] [address] [id number] [address] [place] [address], [place] [address] May, [facility] [address] [id number] [address] [place] [address], [place] [address] Apr, [facility] [address] [id number] [address] [place] [address], [place] [address] Apr, [facility] [address] [id number] [address] [place] [address], [place] [address] Mar, [facility] [address] [id number] [address] [place] [address], [place] [address] Mar, [facility] [address] [id number] [address] [place] [address], [place] [address] Mar, [facility] [address] [id number] [address] [place] [address], [place] [address] Mar, [facility] [address] [id number] [address] [place] [address], [place] [address] Feb, [facility] [address] [id number] [address] [place] [address], [place] [address] Jan, [facility] [address] [id number] [address] [place] [address], [place] [address] December, [facility] [address] [id number] [address] [place] [address], [place] [address] December, [facility] [address] [id number] [address] [place] [address], [place] [address] December, [facility] [address] [id number] [address] [place] [address], [place] [address] Nov, [facility] [address] [id number] [address] [place] [address], [place] [address] Nov, [facility] [address] [id number] [address] [place] [address], [place] [address] Sep, [facility] [address] [id number] [address] [place] [address], [place] [address] Sep, [facility] [address] [id number] [address] [place] [address], [place] [address] Sep, [facility] [address] [id number] [address] [place] [address], [place] [address] 13 Sep, 2012 [facility] [address] [id number] [address] [place] [address], [place] [address] Aug, [facility] [address] [id number] [address] [place] [address], [place] [address] Aug, [facility] [address] [id number] [address] [place] [address], [place] [address] Aug, [facility] [address] [id number] [address] [place] [address], [place] [address] Aug, [facility] [address] [id number] [address] [place] [address], [place] [address] Jul, [facility] [address] [id number] [address] [place] [address], [place] [address] Jul, [facility] [address] [id number] [address] [place] [address], [place] [address] Jul, [facility] [address] [id number] [address] [place] [address], [place] [address] Jul, [facility] [address] [id number] [address] [place] [address], [place] [address] Jun, [facility] [address] [id number] [address] [place] [address], [place] [address] Jun, [facility] [address] [id number] [address] [place] [address], [place] [address] Jun, [facility] [address] [id number] [address] [place] [address], [place] [address] Jun, [facility] [address] [id number] [address] [place] [address], [place] [address] May, [facility] [address] [id number] [address] [place] [address], [place] [address] May, [facility] [address] [id number] [address] [place] [address], [place] [address] May, [facility] [address] [id number] [address] [place] [address], [place] [address] May, [facility] [address] [id number] [address] [place] [address], [place] [address] May, [facility] [address] [id number] [address] [place] [address], [place] [address] Apr, [facility] [address] [id number] [address] [place] [address], [place] [address] 08 Apr, 2012 [facility] [address] [id number] [address] [place] [address], [place] [address] 07 Apr, 2012 [facility] [address] [id number] [address] [place] [address], [place] [address] Apr, [facility] [address] [id number] [address] [place] [address], [place] [address] Mar, [facility] [address] [id number] [address] [place] [address], [place] [address] Mar, [facility] [address] [id number] [address] [place] [address], [place] [address] Feb, [facility] [address] [id number] [address] [place] [address], [place] [address] Feb, [facility] [address] [id number] [address] [place] [address], [place] [address] Feb, [facility] [address] [id number] [address] [place] [address], [place] [address] Jan, [facility] [address] [id number] [address] [place] [address], [place] [address] Jan, [facility] [address] [id number] [address] [place] [address], [place] [address] December, [facility] [address] [id number] [address] [place] [address], [place] [address] December, [facility] [address] [id number] [address] [place] [address] Nov, [facility] [address] [id number] [address] [place] [address], [place] [address] Oct, [facility] [address] [id number] [address] [place] [address], [place] [address] Oct, [facility] [address] [id number] [address] [place] [address], [place] [address] Sep, [facility] [address] [id number] [address] [place] [address] Sep, [facility] [address] [id number] [address] [place] [address], [place] [address] Aug, [facility] [address] [id number] [address] [place] [address], [place] [address] Aug, [facility] [address] [id number] [address] [place] [address] Jul, [facility] [address] [id number] [address] [place] [address], [place] [address] Jul, [facility] [address] [id number] [address] [place] [address] Jul, [facility] [address] [id number] [address] [place] [address] Jun, [facility] [address] [id number] [address] [place] [address] Jun, [facility] [address] [id number] [address] [place] [address] May, [facility] [address] [id number] [address] [place] [address] May, [facility] [address] [id number] [address] [place] [address] May, [facility] [address] [id number] [address] [place] [address], [place] [address] Jul, [facility] [address] [id number] [address] [place] [address] 08 Jul, 2010 [facility] [address] [id number] [address] [place] [id number] 15 Jun, 2010 [facility] [address] [id number] [address] [place] [address] May, [facility] [address] [id number] [address] [place] [address] May, [facility] [address] [id number] [address] [place] [address] Aug, [facility] [address] [id number] [address] [place] [address] Jul, [facility] [address] [id number] [address] [place] [address] Jun, [facility] [address] [id number] [address] [place] [address] Jun, [facility] [address] [id number] [address] [place] [address] Jun, [facility] [address] [id number] [address] [place] [address] Jun, [facility] [address] [id number] [address] [place] [address] Jun, [facility] [address] [id number] [address] [place] [address] May, [facility] [address] [id number] [address] [place] [address] Sep, IMMUNIZATIONS No Known Immunizations SOCIAL HISTORY [...]
--- OUTSIDE RECORDS SUMMARY | 2020-01-28 14:35 | XMS REPORT ---
Author Author Katarina RODRIGUEZ Organization [facility] Address [address] [place] [address] Care Team Providers Care Consumer Safety Officer Name Role Phone GEORGINA RODRIGUEZ Unavailable PROBLEMS Type Condition ICD9-CM Code NZB85-NW Code Onset Dates Condition S tatus SNOMED Code Problem Chronic obstructive pulmonary disease, unspecified COPD ty pe J44.9 Active 92284153 Problem Cigarette nicotine dependence without complication F17.210 Active 15678338 Problem Osteoarthritis M19.90 Active 54637 5006 Problem High risk medication use Z79.899 Activ e 980683733 Problem Acquired hypothyroidism E03.9 Active 981178052 Problem History of cataract surgery Z98.49 Ac tive 790871175 Problem Urinary incontinence, unspecified type R32 Active 242210233 Problem nursing home (current) use of anticoagulants Z79.01 Active 667436024 Problem Chronic atrial fibrillation I48.2 Ac tive 048360481 Problem Encounter for immunization Z23 Act essie 143290244 Problem Other chronic pain G89.29 Active 8 7810365 Problem Diabetes E11.9 Active 966891389 Problem Morbid obesity, unspecified obesity type E66.01 Active 471475274 Problem Irregular heart beats I49.9 Active 192094341 Problem Other urinary incontinence N39.498 Act essie 149542889 Problem Essential hypertension I10 Active 44915760 ALLERGIES No Information ENCOUNTERS Encounter Location Date Diagnosis [facility] [address] [facility] [id number] [address] [place] [phone] Feb, [facility] [address] [facility] [id number] [address] [place] [phone] Jan, Osteoarthritis M19.90 [facility] [address] [facility] [id number] [address] [place] [phone] Jan, Chronic atrial fibrillation I48.2 [facility] [address] [facility] [id number] [address] [place] [phone] Jan, Chronic atrial fibrillation I48.2 [facility] [address] [id number] [address] [place] [phone] Jan, Chronic atrial fibrillation I48.2 [facility] [address] [id number] [address] [place] [phone] Jan, 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 [facility] [address] [id number] [address] [place] [phone] December, [facility] [address] [id number] [address] [place] [phone] December, [facility] [address] [id number] [address] [place] [phone] December, Osteoarthritis M19.90 [facility] [address] [id number] [address] [place] [phone] Nov, [facility] [address] [id number] [address] [place] [phone] Nov, Osteoarthritis M19.90 [facility] [address] [id number] [address] [place] [phone] Oct, Osteoarthritis M19.90 [facility] [address] [facility] [id number] [address] [place] [phone] Sep, Osteoarthritis M19.90 [facility] [address] [facility] [id number] [address] [place] [phone] Sep, nursing home (current) use of a nticoagulants Z79.01 ; BMI 45.0-49.9, adult Z68.42 ; Diabetes E11.9 ; Chronic atrial fibrillation I48.2 and Chronic obstructive pulmonary disease, unspecified COPD type J44.9 [facility] [address] [id number] [address] [place] [phone] Sep, Diabetes E11.9 ; 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 ; Chronic atrial fibrillation I48.2 ; Chronic obstructive pulmonary disease, unspecified COPD type J44.9 and BMI 45.0-49.9, adult Z68.42 [facility] [address] [facility] [id number] [address] [place] [phone] Aug, Osteoarthritis M19.90 [facility] [address] [facility] [id number] [address] [place] [phone] Aug, [facility] [address] [facility] [id number] [address] [place] [phone] Aug, 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 ; BMI 45.0-49.9, adult Z68.42 ; Diabetes E11.9 and Chronic atrial fibrillation I48.2 [facility] [address] [facility] [id number] [address] [place] [phone] Aug, [facility] [address] [facility] [id number] [address] [place] [phone] Jul, Osteoarthritis M19.90 [facility] [address] [facility] [id number] [address] [place] [phone] Jun, Osteoarthritis M19.90 [facility] [address] [facility] [id number] [address] [place] [phone] Jun, 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 [facility] [address] [facility] [id number] [address] [place] [phone] Jun, Chronic atrial fibrillation I48.2 and nursing home (current) use of anticoagulants Z79.01 [facility] [address] [facility] [id number] [address] [place] [phone] Jun, Osteoarthritis M19.90 [facility] [address] [facility] [id number] [address] [place] [phone] May, Encounter for immunization Z 23 [facility] [address] [facility] [id number] [address] [place] [phone] May, nursing home (current) use of a nticoagulants Z79.01 [facility] [address] [id number] [address] [place] [phone] May, Osteoarthritis M19.90 [facility] [address] [facility] [id number] [address] [place] [phone] May, [facility] [address] [facility] [id number] [address] [place] [phone] May, Diabetes E11.9 ; 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 ; Chronic atrial fibrillation I48.2 ; BMI 45.0-49.9, adult Z68.42 ; Osteoarthritis M19.90 ; Low back pain M54.5 and Other chronic pain G89.29 [facility] [address] [id number] [address] [place] [id number] 20 Apr, 2018 Chronic atrial fibrillation I48.2 [facility] [address] [facility] [id number] [address] [place] [phone] 13 Apr, 2018 nursing home (current) use of a nticoagulants Z79.01 [facility] [address] [id number] [address] [place] [phone] 07 Apr, 2018 Osteoarthritis M19.90 [facility] [address] [facility] [id number] [address] [place] [phone] 04 Apr, 2018 nursing home (current) use of a nticoagulants Z79.01 and Chronic atrial fibrillation I48.2 [facility] [address] [id number] [address] [place] [phone] Mar, Osteoarthritis M19.90 [facility] [address] [id number] [address] [place] [phone] Feb, Osteoarthritis M19.90 [facility] [address] [facility] [id number] [address] [place] [phone] Jan, Osteoarthritis M19.90 [facility] [address] [facility] [id number] [address] [place] [phone] December, [place] [address] [facility] [id number] [address] [place] [phone] December, Osteoarthritis M19.90 [facility] [address] [facility] [id number] [address] [place] [phone] Nov, Diabetes E11.9 ; 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 ; Acquired hypothyroidism E03.9 ; Cigarette nicotine dependence without complication F17.210 ; Osteoarthritis M19.90 ; BMI 45.0-49.9, adult Z68.42 and Chronic atrial fibrillation I48.2 [facility] [address] [facility] [id number] [address] [place] [phone] Nov, Osteoarthritis M19.90 [facility] [address] [facility] [id number] [address] [place] [phone] Oct, Osteoarthritis M19.90 [place] [address] [place] [id number] [address] [place] [phone] Oct, nursing home (current) use of a nticoagulants Z79.01 [facility] [address] [facility] [id number] [address] [place] [phone] Sep, Osteoarthritis M19.90 [facility] [address] [facility] [id number] [address] [place] [phone] Sep, [facility] [address] [place] [id number] [address] [place] [phone] Aug, Osteoarthritis M19.90 [facility] [address] [facility] [id number] [address] [place] [id number] Jul, Osteoarthritis M19.90 [facility] [address] [facility] [id number] [address] [place] [phone] Jul, Osteoarthritis M19.90 [facility] [address] [place] [id number] [address] [place] [phone] Jun, Diabetes E11.9 ; Encounter f or immunization Z23 ; 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 ; Chronic atrial fibrillation I48.2 ; Osteoarthritis M19.90 ; Tobacco abuse Z72.0 and Bug bite, initial encounter W57.XXXA [facility] [address] [id number] [address] [place] [phone] May, Osteoarthritis M19.90 [facility] [address] [id number] [address] [place] [phone] Apr, Osteoarthritis M19.90 [facility] [address] [id number] [address] [place] [phone] Mar, Chronic atrial fibrillation I48.2 [facility] [address] [id number] [address] [place] [phone] Mar, [facility] [address] [id number] [address] [place] [phone] Mar, Osteoarthritis M19.90 [facility] [address] [id number] [address] [place] [phone] Mar, nursing home (current) use of a nticoagulants Z79.01 and Chronic atrial fibrillation I48.2 [facility] [address] [id number] [address] [place] [phone] Mar, Chronic atrial fibrillation I48.2 and 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 [place] [address] [id number] [address] [place] [phone] Mar, nursing home (current) use of a nticoagulants Z79.01 [facility] [address] [id number] [address] [place] [phone] Mar, nursing home (current) use of a nticoagulants Z79.01 [place] [address] [id number] [address] [place] [phone] Mar, Osteoarthritis M19.90 [facility] [address] [id number] [address] [place] [phone] Feb, Encounter for screening mamm ogram for malignant neoplasm of breast Z12.31 [facility] [address] [facility] [id number] [address] [place] [phone] Feb, Osteoarthritis M19.90 [facility] [address] [facility] [id number] [address] [place] [phone] Jan, [facility] [address] [facility] [id number] [address] [place] [phone] Jan, 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 ; Diabetes E11.9 ; Osteoarthritis M19.90 and Breast cancer screening Z12.39 [facility] [address] [id number] [address] [place] [phone] Jan, Osteoarthritis M19.90 [facility] [address] [id number] [address] [place] [id number] Jan, Osteoarthritis M19.90 [facility] [address] [id number] [address] [place] [phone] Jan, [facility] [address] [facility] [id number] [address] [place] [phone] December, Osteoarthritis M19.90 [facility] [address] [facility] [id number] [address] [place] [phone] December, Osteoarthritis M19.90 [facility] [id number] [place] [id number] Nov, [facility] [address] [facility] [id number] [address] [place] [phone] Nov, [facility] [address] [facility] [id number] [address] [place] [phone] Nov, [facility] [address] [facility] [id number] [address] [place] [phone] Nov, Diabetes E11.9 [facility] [address] [id number] [address] [place] [phone] Nov, [facility] [address] [facility] [id number] [address] [place] [phone] Oct, Osteoarthritis M19.90 [facility] [address] [facility] [id number] [address] [place] [phone] Oct, Osteoarthritis M19.90 ; 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 ; Diabetes E11.9 ; Cigarette nicotine dependence without complication F17.210 and Chronic atrial fibrillation I48.2 [facility] [address] [facility] [id number] [address] [place] [phone] Aug, [facility] [address] [facility] [id number] [address] [place] [phone] Aug, nursing home (current) use of a nticoagulants Z79.01 [facility] [address] [facility] [id number] [address] [place] [phone] Aug, [facility] [address] [place] [id number] [place] [address] [id number] Aug, [place] [address] [place] [id number] [address] [place] [phone] Aug, [facility] [address] [facility] [id number] [address] [place] [phone] Aug, [facility] [address] [place] [id number] [place] [id number] Aug, [facility] [address] [place] [id number] Aug Osteoarthritis M19.90 and Essential hypertension I10 [place] [address] [facility] [id number] [address] [place] [id number] Aug, Other urinary incontinence N 39.498 [place] [address] [facility] [id number] [address] [place] [phone] Jul, Osteoarthritis M19.90 [place] [address] [place] [id number] [address] [place] [id number] Jun, Diabetes E11.9 ; Encounter f or immunization Z23 ; Osteoarthritis M19.90 ; 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 ; Cigarette nicotine dependence without complication F17.210 ; Acquired hypothyroidism E03.9 ; Morbid obesity, unspecified obesity type E66.01 and Irregular heart beats I49.9 [facility] [address] [facility] [id number] [address] [place] [phone] Jun, Osteoarthritis M19.90 [facility] [address] [facility] [id number] [address] [place] [phone] May, Osteoarthritis M19.90 [facility] [address] [facility] [id number] [address] [place] [phone] May, Urinary incontinence, unspec ified type R32 [facility] [address] [id number] [address] [place] [phone] May, [facility] [address] [facility] [id number] [address] [place] [id number] Apr, Osteoarthritis M19.90 [place] [address] [place] [id number] [address] [place] [phone] Apr, nursing home (current) use of a nticoagulants Z79.01 [facility] [address] [facility] [id number] [address] [place] [phone] Apr, [facility] [address] [facility] [id number] [address] [place] [phone] Apr, Osteoarthritis M19.90 [facility] [address] [facility] [id number] [address] [place] [phone] Mar, Diabetes E11.9 ; Hypothyroid ism, unspecified type E03.9 ; Osteoarthritis M19.90 ; High risk medication use Z79.899 ; Cigarette nicotine dependence without complication F17.210 and Morbid obesity, unspecified obesity type E66.01 [facility] [address] [facility] [id number] [address] [place] [phone] Mar, Osteoarthritis M19.90 [facility] [address] [place] [id number] [address] [place] [phone] December, Osteoarthritis M19.90 [facility] [address] [facility] [id number] [address] [place] [phone] December, [facility] [address] [facility] [id number] [address] [place] [phone] Oct, [facility] [address] [facility] [id number] [address] [place] [phone] Oct, [facility] [address] [facility] [id number] [address] [place] [phone] Aug, [facility] [address] [facility] [id number] [address] [place] [phone] Jul, [facility] [address] [facility] [id number] [address] [place] [phone] Jul, [facility] [address] [facility] [id number] [address] [place] [phone] Jul, Diabetes E11.9 ; Encounter f or immunization Z23 ; Abnormal mammogram R92.8 ; Acquired hypothyroidism E03.9 ; High risk medication use Z79.899 ; Osteoarthritis M19.90 and Cigarette nicotine dependence without complication F17.210 [facility] [address] [facility] [id number] [address] [place] [phone] Jul, [facility] [address] [facility] [id number] [address] [place] [phone] Jun, Abnormal mammogram R92.8 [facility] [address] [facility] [id number] [address] [place] [phone] Apr, [facility] [address] [facility] [id number] [address] [place] [phone] Apr, [facility] [address] [facility] [id number] [address] [place] [phone] Mar, [facility] [address] [facility] [id number] [address] [place] [phone] Mar, Current use of alf ant 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 V58.61 [facility] [address] [facility] [id number] [address] [place] [phone] Feb, [facility] [address] [id number] [address] [place] [address], [place] [address] Jan, [facility] [address] [id number] [address] [place] [address], [place] [address] December, [facility] [address] [id number] [address] [place] [address], [place] [address] Nov, [facility] [address] [id number] [address] [place] [phone] Nov, [facility] [address] [id number] [address] [place] [address], [place] [address] Oct, [facility] [address] [id number] [address] [place] [address], [place] [address] Oct, [facility] [address] [id number] [address] [place] [address], [place] [address] Oct, [facility] [address] [id number] [address] [place] [address], [place] [address] Oct, [facility] [address] [id number] [address] [place] [address], [place] [address] Oct, [facility] [address] [id number] [address] [place] [address], [place] [address] Oct, [facility] [address] [id number] [address] [place] [address], [place] [address] Sep, [facility] [address] [id number] [address] [place] [address], [place] [address] Sep, [facility] [address] [id number] [address] [place] [address], [place] [address] Sep, [facility] [address] [id number] [address] [place] [address], [place] [address] Sep, [facility] [address] [id number] [address] [place] [address], [place] [address] Aug, [facility] [address] [id number] [address] [place] [address], [place] [address] Aug, [facility] [address] [id number] [address] [place] [address], [place] [address] Aug, [facility] [address] [id number] [address] [place] [address], [place] [address] Aug, [facility] [address] [id number] [address] [place] [address], [place] [address] Aug, [facility] [address] [id number] [address] [place] [address], [place] [address] Aug, [facility] [address] [id number] [address] [place] [address], [place] [address] Jul, [facility] [address] [id number] [address] [place] [address], [place] [address] Jul, [facility] [address] [id number] [address] [place] [address], [place] [address] Jul, [facility] [address] [id number] [address] [place] [address], [place] [address] Jul, [facility] [address] [id number] [address] [place] [address], [place] [address] Jul, [facility] [address] [id number] [address] [place] [address], [place] [address] Jul, [facility] [address] [id number] [address] [place] [address], [place] [address] Jun, [facility] [address] [id number] [address] [place] [address], [place] [address] Jun, [facility] [address] [id number] [address] [place] [address], [place] [address] Jun, [facility] [address] [id number] [address] [place] [address], [place] [address] Jun, [facility] [address] [id number] [address] [place] [address], [place] [address] Jun, [facility] [address] [id number] [address] [place] [address], [place] [address] Jun, [facility] [address] [id number] [address] [place] [address], [place] [address] Jun, [facility] [address] [id number] [address] [place] [address], [place] [address] Jun, [facility] [address] [id number] [address] [place] [address], [place] [address] Jun, [facility] [address] [id number] [address] [place] [address], [place] [address] May, [facility] [address] [id number] [address] [place] [address], [place] [address] May, [facility] [address] [id number] [address] [place] [address], [place] [address] Apr, [facility] [address] [id number] [address] [place] [address], [place] [address] Apr, [facility] [address] [id number] [address] [place] [address], [place] [address] Apr, [facility] [address] [id number] [address] [place] [address], [place] [address] Apr, 2013 [facility] [address] [id number] [address] [place] [id number] 11 Apr, 2013 [facility] [address] [id number] [address] [place] [id number] 11 Apr, 2013 [facility] [address] [id number] [address] [place] [address], [place] [address] 11 Apr, 2013 [facility] [address] [id number] [address] [place] [address], [place] [address] 11 Apr, 2013 [facility] [address] [id number] [address] [place] [address], [place] [address] Apr, 2013 [facility] [address] [id number] [address] [place] [address], [place] [address] Apr, [facility] [address] [id number] [address] [place] [address], [place] [address] Mar, [facility] [address] [id number] [address] [place] [address], [place] [address] Mar, [facility] [address] [id number] [address] [place] [address], [place] [address] Mar, [facility] [address] [id number] [address] [place] [address], [place] [address] Mar, [facility] [address] [id number] [address] [place] [address], [place] [address] Mar, [facility] [address] [id number] [address] [place] [address], [place] [address] Mar, [facility] [address] [id number] [address] [place] [address], [place] [address] Feb, [facility] [address] [id number] [address] [place] [address], [place] [address] Feb, [facility] [address] [id number] [address] [place] [address], [place] [address] Feb, [facility] [address] [id number] [address] [place] [address], [place] [address] Feb, [facility] [address] [id number] [address] [place] [address], [place] [address] Jan, [facility] [address] [id number] [address] [place] [address], [place] [address] Jan, [facility] [address] [id number] [address] [place] [address], [place] [address] Jan, [facility] [address] [id number] [address] [place] [address], [place] [address] Jan, [facility] [address] [id number] [address] [place] [address], [place] [address] Oct, [facility] [address] [id number] [address] [place] [address], [place] [address] Oct, [facility] [address] [id number] [address] [place] [address], [place] [address] Sep, [facility] [address] [id number] [address] [place] [address], [place] [address] Sep, [facility] [address] [id number] [address] [place] [address], [place] [address] Sep, [facility] [address] [id number] [address] [place] [address], [place] [address] Sep, [facility] [address] [id number] [address] [place] [address], [place] [address] Aug, [facility] [address] [id number] [address] [place] [address], [place] [address] Aug, [facility] [address] [id number] [address] [place] [address], [place] [address] Aug, [facility] [address] [id number] [address] [place] [address], [place] [address] Aug, [facility] [address] [id number] [address] [place] [address], [place] [address] Jul, [facility] [address] [id number] [address] [place] [address], [place] [address] 30 Jul, 2013 [facility] [address] [id number] [address] [place] [address], [place] [address] 14 Jul, 2013 [facility] [address] [id number] [address] [place] [address], [place] [address] 14 Jul, 2013 [facility] [address] [id number] [address] [place] [address], [place] [address] 10 Jul, 2013 [facility] [address] [id number] [address] [place] [address], [place] [address] 10 Jul, 2013 [facility] [address] [id number] [address] [place] [address], [place] [address] Jun, [facility] [address] [id number] [address] [place] [address], [place] [address] Jun, [facility] [address] [id number] [address] [place] [address], [place] [address] Jun, [facility] [address] [id number] [address] [place] [address], [place] [address] Jun, [facility] [address] [id number] [address] [place] [address], [place] [address] Jun, [facility] [address] [id number] [address] [place] [address], [place] [address] Jun, [facility] [address] [id number] [address] [place] [address], [place] [address] May, [facility] [address] [id number] [address] [place] [address], [place] [address] May, [facility] [address] [id number] [address] [place] [address], [place] [address] May, [facility] [address] [id number] [address] [place] [address], [place] [address] May, [facility] [address] [id number] [address] [place] [address], [place] [address] May, [facility] [address] [id number] [address] [place] [address], [place] [address] May, [facility] [address] [id number] [address] [place] [address], [place] [address] May, [facility] [address] [id number] [address] [place] [address], [place] [address] May, [facility] [address] [id number] [address] [place] [address], [place] [address] 30 Apr, 2013 [facility] [address] [id number] [address] [place] [address], [place] [address] Apr, [facility] [address] [id number] [address] [place] [address], [place] [address] Mar, [facility] [address] [id number] [address] [place] [address], [place] [address] Mar, [facility] [address] [id number] [address] [place] [address], [place] [address] Mar, [facility] [address] [id number] [address] [place] [address], [place] [address] Mar, [facility] [address] [id number] [address] [place] [address], [place] [address] Feb, [facility] [address] [id number] [address] [place] [address], [place] [address] Jan, [facility] [address] [id number] [address] [place] [address], [place] [address] December, [facility] [address] [id number] [address] [place] [address], [place] [address] December, [facility] [address] [id number] [address] [place] [address], [place] [address] December, [facility] [address] [id number] [address] [place] [address], [place] [address] Nov, [facility] [address] [id number] [address] [place] [address], [place] [address] Nov, [facility] [address] [id number] [address] [place] [address], [place] [address] Sep, [facility] [address] [id number] [address] [place] [address], [place] [address] Sep, [facility] [address] [id number] [address] [place] [address], [place] [address] 14 Sep, 2012 [facility] [address] [id number] [address] [place] [address], [place] [address] 13 Sep, 2012 [facility] [address] [id number] [address] [place] [address] Aug, [facility] [address] [id number] [address] [place] [address], [place] [address] Aug, [facility] [address] [id number] [address] [place] [address] Aug, [facility] [address] [id number] [address] [place] [address], [place] [address] Aug, [facility] [address] [id number] [address] [place] [address], [place] [address] Jul, [facility] [address] [id number] [address] [place] [address], [place] [address] Jul, [facility] [address] [id number] [address] [place] [address], [place] [address] Jul, [facility] [address] [id number] [address] [place] [address], [place] [address] Jul, [facility] [address] [id number] [address] [place] [address], [place] [address] Jun, [facility] [address] [id number] [address] [place] [address], [place] [address] Jun, [facility] [address] [id number] [address] [place] [address], [place] [address] Jun, [facility] [address] [id number] [address] [place] [address] Jun, [facility] [address] [id number] [address] [place] [address] May, [facility] [address] [id number] [address] [place] [address], [place] [address] May, [facility] [address] [id number] [address] [place] [address], [place] [address] May, [facility] [address] [id number] [address] [place] [address], [place] [address] May, [facility] [address] [id number] [address] [place] [address], [place] [address] 08 May, 2012 [facility] [address] [id number] [address] [place] [address], [place] [address] 10 Apr, 2012 [facility] [address] [id number] [address] [place] [address], [place] [address] 08 Apr, 2012 [facility] [address] [id number] [address] [place] [address], [place] [address] 07 Apr, 2012 [facility] [address] [id number] [address] [place] [address], [place] [address] 06 Apr, 2012 [facility] [address] [id number] [address] [place] [address], [place] [address] Mar, [facility] [address] [id number] [address] [place] [address], [place] [address] Mar, [facility] [address] [id number] [address] [place] [address], [place] [address] Feb, [facility] [address] [id number] [address] [place] [address], [place] [address] Feb, [facility] [address] [id number] [address] [place] [address], [place] [address] Feb, [facility] [address] [id number] [address] [place] [address], [place] [address] Jan, [facility] [address] [id number] [address] [place] [address], [place] [address] Jan, [facility] [address] [id number] [address] [place] [address], [place] [address] December, [facility] [address] [id number] [address] [place] [address], [place] [address] December, [facility] [address] [id number] [address] [place] [address], [place] [address] Nov, [facility] [address] [id number] [address] [place] [address], [place] [address] Oct, [facility] [address] [id number] [address] [place] [address], [place] [address] Oct, [facility] [address] [id number] [address] [place] [address], [place] [address] Sep, [facility] [address] [id number] [address] [place] [address], [place] [address] Sep, [facility] [address] [id number] [address] [place] [address], [place] [address] Aug, [facility] [address] [id number] [address] [place] [address], [place] [address] Aug, [facility] [address] [id number] [address] [place] [address], [place] [address] Jul, [facility] [address] [id number] [address] [place] [address], [place] [address] Jul, [facility] [address] [id number] [address] [place] [address], [place] [address] Jul, [facility] [address] [id number] [address] [place] [address], [place] [address] Jun, [facility] [address] [id number] [address] [place] [address], [place] [address] Jun, [facility] [address] [id number] [address] [place] [address], [place] [address] May, [facility] [address] [id number] [address] [place] [address] May, [facility] [address] [id number] [address] [place] [address], [place] [address] May, [facility] [address] [id number] [address] [place] [address], [place] [address] 09 Jul, 2010 [facility] [address] [id number] [address] [place] [address], [place] [address] 08 Jul, 2010 [facility] [address] [id number] [address] [place] [address] 15 Jun, 2010 [facility] [address] [id number] [address] [place] [address] May, [facility] [address] [id number] [address] [place] [address] May, [facility] [address] [id number] [address] [place] [address] Aug, [facility] [address] [id number] [address] [place] [address] Jul, [facility] [address] [id number] [address] [place] [address] Jun, [facility] [address] [id number] [address] [place] [address] Jun, [facility] [address] [id number] [address] [place] [id number] Jun, [facility] [address] [id number] [address] [place] [address] Jun, [facility] [address] [id number] [address] [place] [address] Jun, [facility] [address] [id number] [address] [place] [id number] May, [facility] [address] [id number] [address] [place] [address] Sep, IMMUNIZATIONS No Known Immunizations SOCIAL HISTORY [...] replacments 2016 and 2017 Hospitalization History bronchitis 2011
--- OUTSIDE RECORDS SUMMARY | 2020-01-28 14:36 | XMS REPORT ---
Author Author Katarina Manzanares Doctor Organization [facility] Address Unknown Phone Unavailable Care Team Providers Care Kennel Manager Name Role Phone Migration, Doctor Unavailable Unavailable PROBLEMS Type Condition ICD9-CM Code IUE38-OH Code Onset Dates Condition S tatus SNOMED Code Problem Chronic obstructive pulmonary disease, unspecified COPD ty pe J44.9 Active 42434389 Problem Cigarette nicotine dependence without complication F17.210 Active 94395748 Problem Osteoarthritis M19.90 Active 98756 5006 Problem High risk medication use Z79.899 Activ e 581592809 Problem Acquired hypothyroidism E03.9 Active 380610681 Problem History of cataract surgery Z98.49 Ac tive 015665320 Problem Urinary incontinence, unspecified type R32 Active 403350217 Problem correction (current) use of anticoagulants Z79.01 Active 315193016 Problem Chronic atrial fibrillation I48.2 Ac tive 188014588 Problem Encounter for immunization Z23 Act essie 552532705 Problem Other chronic pain G89.29 Active 8 3656702 Problem Diabetes E11.9 Active 285892518 Problem Morbid obesity, unspecified obesity type E66.01 Active 225697456 Problem Irregular heart beats I49.9 Active 189113070 Problem Other urinary incontinence N39.498 Act essie 910096405 Problem Essential hypertension I10 Active 34624003 ALLERGIES No Information ENCOUNTERS Encounter Location Date Diagnosis [facility] [place] [address] [facility] [id number] [address] [place] [id number] Nov, [facility] [place] [address] [facility] [id number] [address] [place] [id number] Oct, Osteoarthritis M19.90 [place] [id number] [facility] [id number] [address] [place] [id number] Sep, Osteoarthritis M19.90 [facility] [place] [address] [facility] [id number] [address] [place] [phone] Sep, correction (current) use of a nticoagulants Z79.01 ; BMI 45.0-49.9, adult Z68.42 ; Diabetes E11.9 ; Chronic atrial fibrillation I48.2 and Chronic obstructive pulmonary disease, unspecified COPD type J44.9 [facility] [place] [address] [id number] [address] [place] [id number] Sep, Diabetes E11.9 ; 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 Z79.01 ; Chronic atrial fibrillation I48.2 ; Chronic obstructive pulmonary disease, unspecified COPD type J44.9 and BMI 45.0-49.9, adult Z68.42 [facility] [place] [address] [id number] [address] [place] [id number] Aug, Osteoarthritis M19.90 [facility] [place] [address] [facility] [id number] [address] [place] [id number] Aug, [facility] [place] [address] [facility] [id number] [address] [place] [id number] Aug, 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 Z79.01 ; BMI 45.0-49.9, adult Z68.42 ; Diabetes E11.9 and Chronic atrial fibrillation I48.2 [facility] [address] [id number] [address] [place] [id number] Aug, [facility] [place] [address] [id number] [address] [place] [id number] Jul, Osteoarthritis M19.90 [facility] [place] [address] [id number] [address] [place] [phone] Jun, Osteoarthritis M19.90 [facility] [place] [address] [id number] [address] [place] [id number] Jun, correction (current) use of a nticoagulants Z79.01 [facility] [place] [address] [id number] [address] [place] [id number] Jun, Chronic atrial fibrillation I48.2 and 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 [facility] [place] [address] [id number] [address] [place] [id number] Jun, Osteoarthritis M19.90 [facility] [place] [address] [id number] [address] [place] [phone] May, Encounter for immunization Z 23 [facility] [place] [address] [id number] [address] [place] [id number] 17 May, 2018 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 Z79.01 [facility] [place] [address] [id number] [address] [place] [id number] May, Osteoarthritis M19.90 [facility] [place] [address] [id number] [address] [place] [id number] May, [facility] [place] [address] [facility] [id number] [address] [place] [phone] May, Diabetes E11.9 ; correction ( current) use of anticoagulants Z79.01 ; Chronic atrial fibrillation I48.2 ; BMI 45.0-49.9, adult Z68.42 ; Osteoarthritis M19.90 ; Low back pain M54.5 and Other chronic pain G89.29 [facility] [place] [address] [id number] [address] [place] [id number] 20 Apr, 2018 Chronic atrial fibrillation I48.2 [facility] [place] [address] [facility] [id number] [address] [place] [id number] 13 Apr, 2018 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 Z79.01 [facility] [place] [address] [id number] [address] [place] [id number] 07 Apr, 2018 Osteoarthritis M19.90 [facility] [place] [address] [id number] [address] [place] [id number] 04 Apr, 2018 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 Z79.01 and Chronic atrial fibrillation I48.2 [facility] [place] [address] [id number] [address] [place] [id number] Mar, Osteoarthritis M19.90 [facility] [place] [address] [id number] [address] [place] [phone] Feb, Osteoarthritis M19.90 [facility] [place] [address] [facility] [id number] [address] [place] [id number] Jan, Osteoarthritis M19.90 [facility] [place] [address] [facility] [id number] [address] [place] [id number] December, [facility] [place] [address] [facility] [id number] [address] [place] [id number] December, Osteoarthritis M19.90 [facility] [place] [address] [facility] [id number] [address] [place] [id number] Nov, Diabetes E11.9 ; 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 Z79.01 ; Acquired hypothyroidism E03.9 ; Cigarette nicotine dependence without complication F17.210 ; Osteoarthritis M19.90 ; BMI 45.0-49.9, adult Z68.42 and Chronic atrial fibrillation I48.2 [facility] [place] [address] [facility] [id number] [address] [place] [id number] Nov, Osteoarthritis M19.90 [facility] [place] [address] [facility] [id number] [address] [place] [phone] Oct, Osteoarthritis M19.90 [facility] [place] [address] [facility] [id number] [address] [place] [id number] Oct, correction (current) use of a nticoagulants Z79.01 [facility] [place] [address] [facility] [id number] [address] [place] [id number] Sep, Osteoarthritis M19.90 [facility] [place] [address] [facility] [id number] [address] [place] [id number] Sep, [facility] [place] [address] [facility] [id number] [address] [place] [phone] Aug, Osteoarthritis M19.90 [facility] [place] [address] [facility] [id number] [address] [place] [id number] Jul, Osteoarthritis M19.90 [place] [address] [facility] [id number] [address] [place] [id number] Jul, Osteoarthritis M19.90 [place] [address] [facility] [id number] [address] [place] [id number] Jun, Diabetes E11.9 ; Encounter f or immunization Z23 ; 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 ; Chronic atrial fibrillation I48.2 ; Osteoarthritis M19.90 ; Tobacco abuse Z72.0 and Bug bite, initial encounter W57.XXXA [place] [address] [facility] [id number] [address] [place] [id number] May, Osteoarthritis M19.90 [place] [address] [facility] [id number] [address] [place] [id number] Apr, Osteoarthritis M19.90 [place] [address] [place] [id number] [address] [place] [phone] Mar, Chronic atrial fibrillation I48.2 [place] [address] [facility] [id number] [address] [place] [id number] Mar, [place] [address] [id number] [address] [place] [id number] Mar, Osteoarthritis M19.90 [place] [address] [facility] [id number] [address] [place] [id number] Mar, correction (current) use of a nticoagulants Z79.01 and Chronic atrial fibrillation I48.2 [place] [address] [facility] [id number] [address] [place] [phone] Mar, Chronic atrial fibrillation I48.2 and 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90 [facility] [place] [address] [facility] [id number] [address] [place] [id number] Feb, Encounter for screening mamm ogram for malignant neoplasm of breast Z12.31 [facility] [place] [address] [facility] [id number] [address] [place] [id number] Feb, Osteoarthritis M19.90 [facility] [place] [address] [id number] [address] [place] [id number] Jan, [facility] [place] [address] [facility] [id number] [address] [place] [phone] Jan, 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 Z79.01 ; Diabetes E11.9 ; Osteoarthritis M19.90 and Breast cancer screening Z12.39 [facility] [place] [address] [facility] [id number] [address] [place] [id number] Jan, Osteoarthritis M19.90 [facility] [place] [address] [id number] [address] [place] [id number] Jan, Osteoarthritis M19.90 [facility] [place] [address] [facility] [id number] [address] [place] [id number] Jan, [facility] [place] [address] [facility] [id number] [address] [place] [id number] December, Osteoarthritis M19.90 [facility] [place] [address] [facility] [id number] [address] [place] [id number] December, Osteoarthritis M19.90 [facility] [address] [id number] [place] [id number] Nov, [facility] [place] [address] [id number] [address] [place] [id number] Nov, [facility] [place] [address] [facility] [id number] [address] [place] [id number] Nov, [facility] [place] [address] [facility] [id number] [address] [place] [id number] Nov, Diabetes E11.9 [facility] [place] [address] [facility] [id number] [address] [place] [phone] Nov, [facility] [place] [address] [facility] [id number] [address] [place] [id number] Oct, Osteoarthritis M19.90 [facility] [place] [address] [facility] [id number] [address] [place] [id number] Oct, Osteoarthritis M19.90 ; correction (current) use of anticoagulants Z79.01 ; Diabetes E11.9 ; Cigarette nicotine dependence without complication F17.210 and Chronic atrial fibrillation I48.2 [facility] [place] [address] [facility] [id number] [address] [place] [id number] Aug, [facility] [place] [address] [place] [id number] [address] [place] [id number] Aug, 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 Z79.01 [facility] [place] [address] [facility] [id number] [address] [place] [id number] Aug, [facility] [id number] [id number] Aug, [facility] [place] [address] [facility] [id number] [address] [place] [id number] Aug, [facility] [place] [address] [facility] [id number] [address] [place] [phone] Aug, [facility] [address] [id number] [facility] [place] [id number] Aug, [address] [place] [id number] Aug Osteoarthritis M19.90 and Essential hypertension I10 [facility] [place] [address] [facility] [id number] [address] [place] [id number] Aug, Other urinary incontinence N 39.498 [facility] [place] [address] [facility] [id number] [address] [place] [id number] Jul, Osteoarthritis M19.90 [facility] [place] [address] [facility] [id number] [address] [place] [id number] Jun, Diabetes E11.9 ; Encounter f or immunization Z23 ; Osteoarthritis M19.90 ; 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 ; Cigarette nicotine dependence without complication F17.210 ; Acquired hypothyroidism E03.9 ; Morbid obesity, unspecified obesity type E66.01 and Irregular heart beats I49.9 [place] [address] [facility] [id number] [address] [place] [phone] Jun, Osteoarthritis M19.90 [place] [address] [facility] [id number] [address] [place] [id number] May, Osteoarthritis M19.90 [place] [address] [facility] [id number] [address] [place] [id number] May, Urinary incontinence, unspec ified type R32 [place] [id number] [facility] [id number] [address] [place] [phone] May, [place] [address] [facility] [id number] [address] [place] [phone] Apr, Osteoarthritis M19.90 [place] [address] [place] [id number] [address] [place] [phone] Apr, correction (current) use of a nticoagulants Z79.01 [facility] [place] [address] [facility] [id number] [address] [place] [phone] Apr, [place] [address] [facility] [id number] [address] [place] [id number] Apr, Osteoarthritis M19.90 [facility] [place] [address] [facility] [id number] [address] [place] [id number] Mar, Diabetes E11.9 ; Hypothyroid ism, unspecified type E03.9 ; Osteoarthritis M19.90 ; High risk medication use Z79.899 ; Cigarette nicotine dependence without complication F17.210 and Morbid obesity, unspecified obesity type E66.01 [facility] [place] [address] [id number] [address] [place] [id number] Mar, Osteoarthritis M19.90 [facility] [place] [address] [id number] [address] [place] [id number] December, Osteoarthritis M19.90 [facility] [place] [address] [id number] [address] [place] [id number] December, [facility] [place] [address] [id number] [address] [place] [id number] Oct, [facility] [place] [address] [id number] [address] [place] [id number] Oct, [facility] [place] [address] [id number] [address] [place] [id number] Aug, [facility] [place] [address] [facility] [id number] [address] [place] [phone] Jul, [facility] [place] [address] [id number] [address] [place] [id number] Jul, [facility] [place] [address] [facility] [id number] [address] [place] [id number] Jul, Diabetes E11.9 ; Encounter f or immunization Z23 ; Abnormal mammogram R92.8 ; Acquired hypothyroidism E03.9 ; High risk medication use Z79.899 ; Osteoarthritis M19.90 and Cigarette nicotine dependence without complication F17.210 [facility] [place] [address] [id number] [address] [place] [phone] Jul, [facility] [place] [address] [facility] [id number] [address] [place] [phone] Jun, Abnormal mammogram R92.8 [facility] [place] [address] [facility] [id number] [address] [place] [id number] Apr, [facility] [place] [address] [facility] [id number] [address] [place] [phone] Apr, [facility] [address] [id number] [address] [place] [id number] Mar, [facility] [address] [id number] [address] [place] [id number] Mar, 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 [facility] [address] [id number] [address] [place] [address], [place] [address] Feb, [facility] [address] [id number] [address] [place] [phone] Jan, [facility] [address] [id number] [address] [place] [address], [place] [id number] December, [facility] [address] [id number] [address] [place] [id number] Nov, [facility] [address] [id number] [address] [place] [phone] Nov, [facility] [address] [id number] [address] [place] [phone] Oct, [facility] [address] [id number] [address] [place] [id number] Oct, [facility] [address] [id number] [address] [place] [phone] Oct, [facility] [address] [id number] [address] [place] [phone] Oct, [facility] [address] [id number] [address] [place] [id number] Oct, [facility] [address] [id number] [address] [place] [id number] Oct, [facility] [address] [id number] [address] [place] [phone] Sep, [facility] [address] [id number] [address] [place] [phone] Sep, [facility] [address] [id number] [address] [place] [address], [place] [phone] Sep, [facility] [address] [id number] [address] [place] [address], [place] [id number] Sep, [facility] [address] [id number] [address] [place] [address], [place] [id number] Aug, [facility] [address] [id number] [address] [place] [address], [place] [phone] Aug, [facility] [address] [id number] [address] [place] [address], [place] [id number] Aug, [facility] [address] [id number] [address] [place] [address], [place] [id number] Aug, [facility] [address] [id number] [address] [place] [address], [place] [id number] Aug, [facility] [address] [id number] [address] [place] [address], [place] [id number] Aug, [facility] [facility] [address] [id number] [address] [place] [address], [place] [address] Jul, [facility] [address] [id number] [address] [place] [address], [place] [address] Jul, [facility] [address] [id number] [address] [place] [address], [place] [address] Jul, [facility] [address] [id number] [address] [place] [address], [place] [address] Jul, [facility] [address] [id number] [address] [place] [address], [place] [address] Jul, [facility] [address] [id number] [address] [place] [address], [place] [address] Jul, [facility] [address] [id number] [address] [place] [address], [place] [address] Jun, [facility] [address] [id number] [address] [address] Jun, [facility] [address] [id number] [address] [place] [address], [place] [address] Jun, [facility] [address] [id number] [address] [place] [address], [place] [address] Jun, [facility] [address] [id number] [address] [place] [address], [place] [address] Jun, [facility] [address] [id number] [address] [place] [address] Jun, [facility] [address] [id number] [address] [place] [address], [place] [address] Jun, [facility] [address] [id number] [address] [place] [address], [place] [address] Jun, [facility] [address] [id number] [address] [place] [address], [place] [address] Jun, [facility] [address] [id number] [address] [place] [address], [place] [address] May, [facility] [address] [id number] [address] [place] [address], [place] [address] May, [facility] [address] [id number] [address] [place] [address], [place] [address] Apr, [facility] [address] [id number] [address] [place] [address], [place] [address] Apr, [facility] [address] [id number] [address] [place] [address], [place] [address] Apr, [facility] [address] [id number] [address] [place] [address], [place] [address] Apr, [facility] [address] [id number] [address] [place] [address], [place] [address] Apr, [facility] [address] [id number] [address] [place] [address], [place] [address] Apr, [facility] [address] [id number] [facility] [place] [address] 11 Apr, 2013 [facility] [address] [id number] [address] [place] [address], [place] [address] Apr, [facility] [address] [id number] [address] [place] [address], [place] [address] Apr, [facility] [address] [id number] [address] [place] [address], [place] [address] Apr, [facility] [address] [id number] [address] [place] [address], [place] [address] Mar, [facility] [address] [id number] [address] [place] [address], [place] [address] Mar, [facility] [address] [id number] [address] [place] [address], [place] [address] Mar, [facility] [address] [id number] [address] [place] [address], [place] [address] Mar, [facility] [address] [id number] [address] [place] [address], [place] [address] Mar, [facility] [address] [id number] [address] [place] [address], [place] [address] Mar, [facility] [address] [id number] [address] [place] [address], [place] [address] Feb, [facility] [address] [id number] [address] [place] [address], [place] [address] Feb, [facility] [address] [id number] [address] [place] [address], [place] [address] Feb, [facility] [address] [id number] [address] [place] [address], [place] [address] Feb, [facility] [address] [id number] [address] [place] [address], [place] [address] Jan, [facility] [address] [id number] [address] [place] [address], [place] [address] Jan, [facility] [address] [id number] [address] [place] [address], [place] [address] Jan, [facility] [address] [id number] [address] [place] [address], [place] [address] Jan, [facility] [address] [id number] [address] [place] [address], [place] [address] Oct, [facility] [address] [id number] [address] [place] [address], [place] [address] Oct, [facility] [address] [id number] [address] [place] [address], [place] [address] Sep, [facility] [address] [id number] [address] [place] [address], [place] [address] Sep, [facility] [address] [id number] [address] [place] [address], [place] [address] Sep, [facility] [address] [id number] [address] [place] [address], [place] [address] Sep, [facility] [address] [id number] [address] [place] [address], [place] [address] Aug, [facility] [address] [id number] [address] [place] [address], [place] [address] Aug, [facility] [address] [id number] [address] [place] [address], [place] [address] Aug, [facility] [address] [id number] [address] [place] [address], [place] [address] Aug, [facility] [address] [id number] [address] [place] [address], [place] [address] Jul, [facility] [address] [id number] [address] [place] [address], [place] [address] Jul, [facility] [address] [id number] [address] [place] [address], [place] [address] Jul, [facility] [address] [id number] [address] [place] [address], [place] [address] 14 Jul, 2013 [facility] [address] [id number] [address] [place] [address], [place] [address] 10 Jul, 2013 [facility] [address] [id number] [address] [place] [address], [place] [address] Jul, [facility] [address] [id number] [address] [place] [address], [place] [address] Jun, [facility] [address] [id number] [address] [place] [address], [place] [address] Jun, [facility] [address] [id number] [address] [place] [address], [place] [address] Jun, [facility] [address] [id number] [address] [place] [address], [place] [address] Jun, [facility] [address] [id number] [address] [place] [address], [place] [address] Jun, [facility] [address] [id number] [address] [place] [address], [place] [address] Jun, [facility] [address] [id number] [address] [place] [address], [place] [address] May, [facility] [address] [id number] [address] [place] [address], [place] [address] May, [facility] [address] [id number] [address] [place] [address], [place] [address] May, [facility] [address] [id number] [address] [place] [address], [place] [address] May, [facility] [address] [id number] [address] [place] [address], [place] [address] May, [facility] [address] [id number] [address] [place] [address], [place] [address] May, [facility] [address] [id number] [address] [place] [address], [place] [address] 17 May, 2013 [facility] [address] [id number] [address] [place] [address], [place] [address] May, [facility] [address] [id number] [address] [place] [address], [place] [address] Apr, [facility] [address] [id number] [address] [place] [address], [place] [address] Apr, [facility] [address] [id number] [address] [place] [address], [place] [address] Mar, [facility] [address] [id number] [address] [place] [address], [place] [address] Mar, [facility] [address] [id number] [address] [place] [address], [place] [address] Mar, [facility] [address] [id number] [address] [place] [address], [place] [address] Mar, [facility] [address] [id number] [address] [place] [address], [place] [address] Feb, [facility] [address] [id number] [address] [place] [address], [place] [address] Jan, [facility] [address] [id number] [address] [place] [address], [place] [address] December, [facility] [address] [id number] [address] [place] [address], [place] [address] December, [facility] [address] [id number] [address] [place] [address], [place] [address] December, [facility] [address] [id number] [address] [place] [address], [place] [address] Nov, [facility] [address] [id number] [address] [place] [address], [place] [address] Nov, [facility] [address] [id number] [address] [place] [address], [place] [address] Sep, [facility] [address] [id number] [address] [place] [address], [place] [address] 14 Sep, 2012 [facility] [address] [id number] [address] [place] [address], [place] [address] 14 Sep, 2012 [facility] [address] [id number] [address] [place] [address], [place] [address] 13 Sep, 2012 [facility] [address] [id number] [address] [place] [address], [place] [address] 30 Aug, 2012 [facility] [address] [id number] [address] [place] [address], [place] [address] Aug, [facility] [address] [id number] [address] [place] [address], [place] [address] Aug, [facility] [address] [id number] [address] [place] [address], [place] [address] Aug, [facility] [address] [id number] [address] [place] [address], [place] [address] Jul, [facility] [address] [id number] [address] [place] [address], [place] [address] Jul, [facility] [address] [id number] [address] [place] [address], [place] [address] Jul, [facility] [address] [id number] [address] [place] [address], [place] [address] Jul, [facility] [address] [id number] [address] [place] [address], [place] [address] Jun, [facility] [address] [id number] [address] [place] [address], [place] [address] Jun, [facility] [address] [id number] [address] [place] [address], [place] [address] Jun, [facility] [address] [id number] [address] [place] [address], [place] [address] Jun, [facility] [address] [id number] [address] [place] [address], [place] [address] May, [facility] [address] [id number] [address] [place] [address], [place] [address] 18 May, 2012 [facility] [address] [id number] [address] [place] [address], [place] [address] 10 May, 2012 [facility] [address] [id number] [address] [place] [address], [place] [address] 10 May, 2012 [facility] [address] [id number] [address] [place] [address], [place] [address] 08 May, 2012 [facility] [address] [id number] [address] [place] [address], [place] [address] 10 Apr, 2012 [facility] [address] [id number] [address] [place] [address], [place] [address] 08 Apr, 2012 [facility] [address] [id number] [address] [place] [address], [place] [address] 07 Apr, 2012 [facility] [address] [id number] [address] [place] [address], [place] [address] 06 Apr, 2012 [facility] [address] [id number] [address] [place] [address], [place] [address] Mar, [facility] [address] [id number] [address] [place] [address], [place] [address] Mar, [facility] [address] [id number] [address] [place] [address], [place] [address] Feb, [facility] [address] [id number] [address] [place] [address], [place] [address] Feb, [facility] [address] [id number] [address] [place] [address], [place] [address] Feb, [facility] [address] [id number] [address] [place] [address], [place] [address] Jan, [facility] [address] [id number] [address] [place] [address], [place] [address] Jan, [facility] [address] [id number] [address] [place] [address], [place] [address] December, [facility] [address] [id number] [address] [place] [address], [place] [address] December, [facility] [address] [id number] [address] [place] [address], [place] [address] Nov, [facility] [address] [id number] [address] [place] [address], [place] [address] Oct, [facility] [address] [id number] [address] [place] [address], [place] [address] Oct, [facility] [address] [id number] [address] [place] [address], [place] [address] Sep, [facility] [address] [id number] [address] [place] [address], [place] [address] Sep, [facility] [address] [id number] [address] [place] [address], [place] [address] Aug, [facility] [address] [id number] [address] [place] [address], [place] [address] Aug, [facility] [address] [id number] [address] [place] [address], [place] [address] Jul, [facility] [address] [id number] [address] [place] [address], [place] [address] Jul, [facility] [address] [id number] [address] [place] [address], [place] [address] Jul, [facility] [address] [id number] [address] [place] [address], [place] [address] Jun, [facility] [address] [id number] [address] [place] [address], [place] [address] Jun, [facility] [address] [id number] [address] [place] [address], [place] [address] May, [facility] [address] [id number] [address] [place] [address], [place] [address] May, [facility] [address] [id number] [address] [place] [address] 11 May, 2011 [facility] [place] [address] [id number] [address] [place] [address] 09 Jul, 2010 [facility] [place] [address] [id number] [address] [place] [address] Jul, [facility] [place] [address] [id number] [address] [place] [address] 15 Jun, 2010 [facility] [place] [address] [id number] [address] [place] [address] May, [facility] [place] [address] [id number] [address] [place] [address] May, [facility] [place] [address] [id number] [address] [place] [address] Aug, [facility] [place] [address] [id number] [address] [place] [address] Jul, [facility] [place] [address] [id number] [address] [place] [address] Jun, [facility] [place] [address] [id number] [address] [place] [address] Jun, [facility] [place] [address] [id number] [address] [place] [address] Jun, [facility] [place] [address] [id number] [address] [place] [address] Jun, [facility] [place] [address] [id number] [address] [place] [address] Jun, [facility] [place] [address] [id number] [address] [place] [address] May, [facility] [place] [address] [id number] [address] [place] [address] Sep, IMMUNIZATIONS No Known Immunizations SOCIAL HISTORY Never Assessed REASON FOR V[place]IT [place] VITAL SIGNS MEDICATIONS Unknown [...]
--- OUTSIDE RECORDS SUMMARY | 2020-01-28 14:36 | XMS REPORT ---
Author Author Katarina Manzanares Doctor Organization [facility] Address Unknown Phone Unavailable Care Team Providers Care Atmospheric Chemist Name Role Phone Migration, Doctor Unavailable Unavailable PROBLEMS Type Condition ICD9-CM Code CHB17-TJ Code Onset Dates Condition S tatus SNOMED Code Problem Chronic obstructive pulmonary disease, unspecified COPD ty pe J44.9 Active 94529116 Problem Cigarette nicotine dependence without complication F17.210 Active 38726284 Problem Osteoarthritis M19.90 Active 39148 5006 Problem High risk medication use Z79.899 Activ e 580556511 Problem Acquired hypothyroidism E03.9 Active 111285849 Problem History of cataract surgery Z98.49 Ac tive 210545764 Problem Urinary incontinence, unspecified type R32 Active 557608064 Problem senior living (current) use of anticoagulants Z79.01 Active 037323128 Problem Chronic atrial fibrillation I48.2 Ac tive 003855892 Problem Encounter for immunization Z23 Act essie 389718630 Problem Other chronic pain G89.29 Active 8 7096307 Problem Diabetes E11.9 Active 618911695 Problem Morbid obesity, unspecified obesity type E66.01 Active 908988923 Problem Irregular heart beats I49.9 Active 914831916 Problem Other urinary incontinence N39.498 Act essie 182970018 Problem Essential hypertension I10 Active 73202818 ALLERGIES No Information ENCOUNTERS Encounter Location Date Diagnosis [facility] [address] [facility] [id number] [address] [place] [address] Nov, [facility] [address] [facility] [id number] [address] [place] [address] Nov, Osteoarthritis M19.90 [facility] [address] [facility] [id number] [address] [place] [address] Oct, Osteoarthritis M19.90 [facility] [address] [facility] [id number] [address] [place] [address] Sep, Osteoarthritis M19.90 [facility] [address] [id number] [address] [place] [address] Sep, senior living (current) use of a nticoagulants Z79.01 ; BMI 45.0-49.9, adult Z68.42 ; Diabetes E11.9 ; Chronic atrial fibrillation I48.2 and Chronic obstructive pulmonary disease, unspecified COPD type J44.9 [place] [address] [facility] [id number] [address] [place] [address] Sep, Diabetes E11.9 ; senior living ( current) use of anticoagulants Z79.01 ; Chronic atrial fibrillation I48.2 ; Chronic obstructive pulmonary disease, unspecified COPD type J44.9 and BMI 45.0-49.9, adult Z68.42 [place] [address] [facility] [id number] [address] [place] [address] Aug, Osteoarthritis M19.90 [place] [address] [facility] [id number] [address] [place] [address] Aug, [place] [address] [facility] [id number] [address] [place] [address] Aug, senior living (current) use of a nticoagulants Z79.01 ; BMI 45.0-49.9, adult Z68.42 ; Diabetes E11.9 and Chronic atrial fibrillation I48.2 [facility] [address] [id number] [address] [place] [address] Aug, [facility] [address] [id number] [address] [place] [address] Jul, Osteoarthritis M19.90 [facility] [address] [id number] [address] [place] [address] Jun, Osteoarthritis M19.90 [facility] [address] [facility] [id number] [address] [place] [address] Jun, 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 [facility] [address] [facility] [id number] [address] [place] [address] Jun, Chronic atrial fibrillation I48.2 and senior living (current) use of anticoagulants Z79.01 [place] [address] [facility] [id number] [address] [place] [address] Jun, Osteoarthritis M19.90 [place] [address] [facility] [id number] [address] [place] [address] May, Encounter for immunization Z 23 [place] [address] [facility] [id number] [address] [place] [address] May, senior living (current) use of a nticoagulants Z79.01 [place] [address] [facility] [id number] [address] [place] [address] May, Osteoarthritis M19.90 [place] [address] [facility] [id number] [address] [place] [address] May, [place] [address] [facility] [id number] [address] [place] [address] May, Diabetes E11.9 ; senior living ( current) use of anticoagulants Z79.01 ; Chronic atrial fibrillation I48.2 ; BMI 45.0-49.9, adult Z68.42 ; Osteoarthritis M19.90 ; Low back pain M54.5 and Other chronic pain G89.29 [place] [address] [facility] [id number] [address] [place] [address] Apr, Chronic atrial fibrillation I48.2 [place] [address] [facility] [id number] [address] [place] [address] Apr, senior living (current) use of a nticoagulants Z79.01 [place] [address] [facility] [id number] [address] [place] [address] Apr, Osteoarthritis M19.90 [place] [address] [facility] [id number] [address] [place] [address] Apr, 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 and Chronic atrial fibrillation I48.2 [place] [address] [facility] [id number] [address] [place] [address] Mar, Osteoarthritis M19.90 [facility] [address] [facility] [id number] [address] [place] [address] Feb, Osteoarthritis M19.90 [facility] [address] [facility] [id number] [address] [place] [address] Jan, Osteoarthritis M19.90 [facility] [address] [facility] [id number] [address] [place] [address] December, [facility] [address] [facility] [id number] [address] [place] [address] December, Osteoarthritis M19.90 [facility] [address] [facility] [id number] [address] [place] [address] Nov, Diabetes E11.9 ; senior living ( current) use of anticoagulants Z79.01 ; Acquired hypothyroidism E03.9 ; Cigarette nicotine dependence without complication F17.210 ; Osteoarthritis M19.90 ; BMI 45.0-49.9, adult Z68.42 and Chronic atrial fibrillation I48.2 [facility] [address] [facility] [id number] [address] [place] [address] Nov, Osteoarthritis M19.90 [facility] [address] [facility] [id number] [address] [place] [address] Oct, Osteoarthritis M19.90 [facility] [address] [facility] [id number] [address] [place] [address] Oct, senior living (current) use of a nticoagulants Z79.01 [facility] [address] [facility] [id number] [address] [place] [address] Sep, Osteoarthritis M19.90 [facility] [address] [facility] [id number] [address] [place] [address] Sep, [facility] [address] [facility] [id number] [address] [place] [address] Aug, Osteoarthritis M19.90 [facility] [address] [id number] [address] [place] [address] Jul, Osteoarthritis M19.90 [facility] [address] [facility] [id number] [address] [place] [address] Jul, Osteoarthritis M19.90 [facility] [address] [facility] [id number] [address] [place] [address] Jun, Diabetes E11.9 ; Encounter f or immunization Z23 ; senior living (current) use of anticoagulants Z79.01 ; Chronic atrial fibrillation I48.2 ; Osteoarthritis M19.90 ; Tobacco abuse Z72.0 and Bug bite, initial encounter W57.XXXA [place] [address] [facility] [id number] [address] [place] [address] May, Osteoarthritis M19.90 [place] [address] [facility] [id number] [address] [place] [address] Apr, Osteoarthritis M19.90 [facility] [address] [facility] [id number] [address] [place] [phone] Mar, Chronic atrial fibrillation I48.2 [facility] [address] [facility] [id number] [address] [place] [address] Mar, [facility] [address] [facility] [id number] [address] [place] [address] Mar, Osteoarthritis M19.90 [facility] [address] [facility] [id number] [address] [place] [address] Mar, 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 and Chronic atrial fibrillation I48.2 [facility] [address] [id number] [address] [place] [address] Mar, Chronic atrial fibrillation I48.2 and 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 [facility] [address] [facility] [id number] [address] [place] [address] Mar, senior living (current) use of a nticoagulants Z79.01 [facility] [address] [id number] [address] [place] [address] Mar, senior living (current) use of a nticoagulants Z79.01 [facility] [address] [id number] [address] [place] [address] Mar, Osteoarthritis M19.90 [facility] [address] [id number] [address] [place] [phone] Feb, Encounter for screening mamm ogram for malignant neoplasm of breast Z12.31 [facility] [address] [id number] [address] [place] [address] Feb, Osteoarthritis M19.90 [facility] [address] [id number] [address] [place] [phone] Jan, [facility] [address] [id number] [address] [place] [phone] Jan, senior living (current) use of a nticoagulants Z79.01 ; Diabetes E11.9 ; Osteoarthritis M19.90 and Breast cancer screening Z12.39 [facility] [address] [id number] [address] [place] [address] Jan, Osteoarthritis M19.90 [facility] [address] [id number] [address] [place] [address] Jan, Osteoarthritis M19.90 [facility] [address] [id number] [address] [place] [address] Jan, [facility] [address] [id number] [address] [place] [address] December, Osteoarthritis M19.90 [facility] [address] [id number] [address] [place] [address] December, Osteoarthritis M19.90 [facility] [address] [id number] [id number] Nov, [facility] [address] [id number] [address] [place] [address] Nov, [facility] [address] [facility] [id number] [address] [place] [phone] Nov, [facility] [address] [facility] [id number] [address] [place] [phone] Nov, Diabetes E11.9 [facility] [address] [facility] [id number] [address] [place] [address] Nov, [facility] [address] [facility] [id number] [address] [place] [phone] Oct, Osteoarthritis M19.90 [facility] [address] [facility] [id number] [place] [address] Oct, Osteoarthritis M19.90 ; senior living (current) use of anticoagulants Z79.01 ; Diabetes E11.9 ; Cigarette nicotine dependence without complication F17.210 and Chronic atrial fibrillation I48.2 [facility] [address] [facility] [id number] [address] [place] [address] Aug, [facility] [address] [facility] [id number] [address] [place] [phone] Aug, senior living (current) use of a nticoagulants Z79.01 [facility] [address] [facility] [id number] [address] [place] [phone] Aug, [facility] [id number] [id number] Aug, [facility] [address] [facility] [id number] [address] [place] [phone] Aug, [facility] [address] [facility] [id number] [address] [place] [address] Aug, [facility] [address] [place] [id number] [place] [id number] Aug, [employer] [address] [place] [id number] Aug Osteoarthritis M19.90 and Essential hypertension I10 [facility] [id number] [place] [address] Aug, Other urinary incontinence N 39.498 [facility] [id number] [place] [address] Jul, Osteoarthritis M19.90 [facility] [address] [place] [id number] [address] [place] [address] Jun, Diabetes E11.9 ; Encounter f or immunization Z23 ; Osteoarthritis M19.90 ; 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 ; Cigarette nicotine dependence without complication F17.210 ; Acquired hypothyroidism E03.9 ; Morbid obesity, unspecified obesity type E66.01 and Irregular heart beats I49.9 [place] [address] [facility] [id number] [address] [place] [address] Jun, Osteoarthritis M19.90 [facility] [address] [place] [id number] [address] [place] [address] May, Osteoarthritis M19.90 [facility] [address] [place] [id number] [address] [place] [address] May, Urinary incontinence, unspec ified type R32 [facility] [address] [place] [id number] [address] [place] [address] May, [facility] [address] [place] [id number] [address] [place] [address] Apr, Osteoarthritis M19.90 [facility] [address] [place] [id number] [address] [place] [phone] Apr, 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 [facility] [address] [facility] [id number] [address] [place] [address] Apr, [place] [address] [facility] [id number] [address] [place] [address] Apr, Osteoarthritis M19.90 [facility] [address] [place] [id number] [address] [place] [phone] 29 Aug, 2016 Diabetes E11.9 ; Hypothyroid ism, unspecified type E03.9 ; Osteoarthritis M19.90 ; High risk medication use Z79.899 ; Cigarette nicotine dependence without complication F17.210 and Morbid obesity, unspecified obesity type E66.01 [facility] [address] [id number] [address] [place] [address] Mar, Osteoarthritis M19.90 [facility] [address] [id number] [address] [place] [address] December, Osteoarthritis M19.90 [facility] [address] [id number] [address] [place] [address] December, [facility] [address] [facility] [id number] [address] [place] [phone] Oct, [facility] [address] [facility] [id number] [address] [place] [phone] Oct, [facility] [address] [facility] [id number] [address] [place] [phone] Aug, [facility] [address] [facility] [id number] [address] [place] [phone] Jul, [facility] [address] [facility] [id number] [address] [place] [phone] Jul, [facility] [address] [facility] [id number] [address] [place] [phone] Jul, Diabetes E11.9 ; Encounter f or immunization Z23 ; Abnormal mammogram R92.8 ; Acquired hypothyroidism E03.9 ; High risk medication use Z79.899 ; Osteoarthritis M19.90 and Cigarette nicotine dependence without complication F17.210 [facility] [address] [facility] [id number] [address] [place] [address] Jul, [facility] [address] [facility] [id number] [address] [place] [address] Jun, Abnormal mammogram R92.8 [facility] [address] [facility] [id number] [address] [place] [phone] Apr, [facility] [address] [id number] [address] [place] [address], [place] [address] Apr, [facility] [address] [id number] [address] [place] [address], [place] [address] Mar, [facility] [address] [id number] [address] [place] [address], [place] [address] Mar, 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 [facility] [address] [id number] [address] [place] [address], [place] [address] Feb, [facility] [address] [id number] [address] [place] [phone] Jan, [facility] [address] [id number] [address] [place] [phone] December, [facility] [address] [id number] [address] [place] [address], [place] [address] Nov, [facility] [address] [id number] [address] [place] [address] Nov, [facility] [address] [id number] [address] [place] [address], [place] [address] Oct, [facility] [address] [id number] [address] [place] [address] Oct, [facility] [address] [id number] [address] [place] [address], [place] [address] Oct, [facility] [address] [id number] [address] [place] [address] Oct, [facility] [address] [id number] [address] [place] [phone] Oct, [facility] [address] [id number] [address] [place] [phone] Oct, [facility] [address] [id number] [address] [place] [address] Sep, [facility] [address] [id number] [address] [place] [address], [place] [address] Sep, [facility] [address] [id number] [address] [place] [address], [place] [address] Sep, [facility] [address] [id number] [address] [place] [address], [place] [address] Sep, [facility] [address] [id number] [address] [place] [address], [place] [address] Aug, [facility] [address] [id number] [address] [place] [address], [place] [address] Aug, [facility] [address] [id number] [address] [place] [address], [place] [address] Aug, [facility] [address] [id number] [address] [place] [address], [place] [address] Aug, [facility] [address] [id number] [address] [place] [address], [place] [address] Aug, [facility] [address] [id number] [address] [place] [address], [place] [address] Aug, [facility] [address] [id number] [address] [place] [phone] Jul, [facility] [address] [id number] [address] [place] [phone] Jul, [facility] [address] [id number] [address] [place] [phone] Jul, [facility] [address] [id number] [address] [place] [address], [place] [address] Jul, [facility] [address] [id number] [address] [place] [address], [place] [address] Jul, [facility] [address] [id number] [address] [place] [phone] Jul, [facility] [address] [id number] [address] [place] [phone] Jun, [facility] [address] [id number] [address] [place] [address], [place] [address] Jun, [facility] [address] [id number] [address] [place] [address], [place] [address] Jun, [facility] [address] [id number] [address] [place] [address], [place] [address] Jun, [facility] [address] [id number] [address] [place] [address], [place] [address] Jun, [facility] [address] [id number] [address] [place] [address], [place] [address] Jun, [facility] [address] [id number] [address] [place] [address], [place] [address] Jun, [facility] [address] [id number] [address] [place] [id number] Jun, [facility] [address] [id number] [address] [place] [address], [place] [address] Jun, [facility] [address] [id number] [address] [place] [address], [place] [address] May, [facility] [address] [id number] [address] [place] [id number] May, [facility] [address] [id number] [address] [place] [address], [place] [address] Apr, [facility] [address] [id number] [address] [place] [id number] Apr, [facility] [address] [id number] [address] [place] [address], [place] [address] Apr, [facility] [address] [id number] [address] [place] [address], [place] [address] Apr, [facility] [address] [id number] [address] [place] [address], [place] [address] Apr, [facility] [place] [address] [id number] [facility] [address] 11 Apr, 2013 [facility] [place] [address] [id number] [facility] [place] [address] Apr, 2013 [facility] [place] [address] [id number] [facility] [place] [address] Apr, 2013 [facility] [address] [id number] [address] [place] [address], [place] [address] Apr, 2013 [facility] [address] [id number] [address] [place] [address], [place] [address] Apr, 2013 [facility] [address] [id number] [address] [place] [address], [place] [address] Mar, [facility] [address] [id number] [address] [place] [address], [place] [address] Mar, [facility] [address] [id number] [address] [place] [address], [place] [address] Mar, [facility] [address] [id number] [address] [place] [address], [place] [address] Mar, [facility] [address] [id number] [address] [place], [place] [address], [place] [address] Mar, [facility] [address] [id number] [address] [place] [address], [place] [address] Mar, [facility] [address] [id number] [address] [place] [address], [place] [address] Feb, [facility] [address] [id number] [address] [place] [address], [place] [address] Feb, [facility] [address] [id number] [address] [place] [address], [place] [address] Feb, [facility] [address] [id number] [address] [place] [address], [place] [address] Feb, [facility] [address] [id number] [address] [place] [address], [place] [address] Jan, [facility] [address] [id number] [address] [place] [address], [place] [address] Jan, [facility] [address] [id number] [address] [place] [address], [place] [address] Jan, [facility] [address] [id number] [address] [place] [address], [place] [address] Jan, [facility] [address] [id number] [address] [place] [address], [place] [address] Oct, [facility] [address] [id number] [address] [place] [address], [place] [address] Oct, [facility] [address] [id number] [address] [place] [address], [place] [address] Sep, [facility] [address] [id number] [address] [place] [address], [place] [address] Sep, [facility] [address] [id number] [address] [place] [address], [place] [address] Sep, [facility] [address] [id number] [address] [place] [address], [place] [address] Sep, [facility] [address] [id number] [address] [place] [address], [place] [address] Aug, [facility] [address] [id number] [address] [place] [address], [place] [address] Aug, [facility] [address] [id number] [address] [place] [address], [place] [address] Aug, [facility] [address] [id number] [address] [place] [address], [place] [address] Aug, [facility] [address] [id number] [address] [place] [address], [place] [address] Jul, [facility] [address] [id number] [address] [place] [address], [place] [address] Jul, [facility] [address] [id number] [address] [place] [address], [place] [address] 14 Jul, 2013 [facility] [address] [id number] [address] [place] [address], [place] [address] 14 Jul, 2013 [facility] [address] [id number] [address] [place] [address], [place] [address] 10 Jul, 2013 [facility] [address] [id number] [address] [place] [address], [place] [address] Jul, [facility] [address] [id number] [address] [place] [address], [place] [address] Jun, [facility] [address] [id number] [address] [place] [address], [place] [address] Jun, [facility] [address] [id number] [address] [place] [address], [place] [address] Jun, [facility] [address] [id number] [address] [place] [address], [place] [address] Jun, [facility] [address] [id number] [address] [place] [address], [place] [address] Jun, [facility] [address] [id number] [address] [place] [address], [place] [address] Jun, [facility] [address] [id number] [address] [place] [address], [place] [address] May, [facility] [address] [id number] [address] [place] [address], [place] [address] May, [facility] [address] [id number] [address] [place] [address], [place] [address] May, [facility] [address] [id number] [address] [place] [address], [place] [address] May, [facility] [address] [id number] [address] [place] [address], [place] [address] May, [facility] [address] [id number] [address] [place] [address], [place] [address] May, [facility] [address] [id number] [address] [place] [address], [place] [address] May, [facility] [address] [id number] [address] [place] [address], [place] [address] May, [facility] [address] [id number] [address] [place] [address], [place] [address] Apr, [facility] [address] [id number] [address] [place] [address], [place] [address] Apr, [facility] [address] [id number] [address] [place] [address], [place] [address] Mar, [facility] [address] [id number] [address] [place] [address], [place] [address] Mar, [facility] [address] [id number] [address] [place] [address], [place] [address] Mar, [facility] [address] [id number] [address] [place] [address], [place] [address] Mar, [facility] [address] [id number] [address] [place] [address], [place] [address] Feb, [facility] [address] [id number] [address] [place] [address] Jan, [facility] [address] [id number] [address] [place] [address], [place] [address] December, [facility] [address] [id number] [address] [place] [address] December, [facility] [address] [id number] [address] [place] [address], [place] [address] December, [facility] [address] [id number] [address] [place] [address], [place] [address] Nov, [facility] [address] [id number] [address] [place] [address] Nov, [facility] [address] [id number] [address] [place] [address] 14 Sep, 2012 [facility] [address] [id number] [address] [place] [address], [place] [address] 14 Sep, 2012 [facility] [address] [id number] [address] [place] [address], [place] [address] 14 Sep, 2012 [facility] [address] [id number] [address] [place] [address], [place] [address] 13 Sep, 2012 [facility] [address] [id number] [address] [place] [address], [place] [address] 30 Aug, 2012 [facility] [address] [id number] [address] [place] [address], [place] [address] Aug, [facility] [address] [id number] [address] [place] [address], [place] [address] 08 Aug, 2012 [facility] [address] [id number] [address] [place] [address], [place] [address] Aug, [facility] [address] [id number] [address] [place] [address], [place] [address] Jul, [facility] [address] [id number] [address] [place] [address], [place] [address] Jul, [facility] [address] [id number] [address] [place] [address], [place] [address] Jul, [facility] [address] [id number] [address] [place] [address], [place] [address] Jul, [facility] [address] [id number] [address] [place] [address], [place] [address] Jun, [facility] [address] [id number] [address] [place] [address], [place] [address] Jun, [facility] [address] [id number] [address] [place] [address], [place] [address] Jun, [facility] [address] [id number] [address] [place] [address], [place] [address] Jun, [facility] [address] [id number] [address] [place] [address], [place] [address] May, [facility] [address] [id number] [address] [place] [address], [place] [address] May, [facility] [address] [id number] [address] [place] [address], [place] [address] May, [facility] [address] [id number] [address] [place] [address], [place] [address] May, [facility] [address] [id number] [address] [place] [address], [place] [address] May, [facility] [address] [id number] [address] [place] [address], [place] [address] 10 Apr, 2012 [facility] [address] [id number] [address] [place] [address], [place] [address] 08 Apr, 2012 [facility] [address] [id number] [address] [place] [address], [place] [address] 07 Apr, 2012 [facility] [address] [id number] [address] [place] [address], [place] [address] Apr, [facility] [address] [id number] [address] [place] [address], [place] [address] Mar, [facility] [address] [id number] [address] [place] [address], [place] [address] Mar, [facility] [address] [id number] [address] [place] [address], [place] [address] Feb, [facility] [address] [id number] [address] [place] [address], [place] [address] Feb, [facility] [address] [id number] [address] [place] [address], [place] [address] Feb, [facility] [address] [id number] [address] [place] [address], [place] [address] Jan, [facility] [address] [id number] [address] [place] [address], [place] [address] Jan, [facility] [address] [id number] [address] [place] [address], [place] [address] December, [facility] [address] [id number] [address] [place] [address], [place] [address] December, [facility] [address] [id number] [address] [place] [address], [place] [address] Nov, [facility] [address] [id number] [address] [place] [address], [place] [address] Oct, [facility] [address] [id number] [address] [place] [address], [place] [address] Oct, [facility] [address] [id number] [address] [place] [address], [place] [address] Sep, [facility] [address] [id number] [address] [place] [address], [place] [address] Sep, [facility] [address] [id number] [address] [place] [address], [place] [address] Aug, [facility] [address] [id number] [address] [place] [address], [place] [address] Aug, [facility] [address] [id number] [address] [place] [address], [place] [address] Jul, [facility] [address] [id number] [address] [place] [address], [place] [address] Jul, [facility] [address] [id number] [address] [place] [address], [place] [address] Jul, [facility] [address] [id number] [address] [place] [address], [place] [address] Jun, [facility] [address] [id number] [address] [place] [address], [place] [address] Jun, [facility] [address] [id number] [address] [place] [address], [place] [address] May, [facility] [address] [id number] [address] [place] [address], [place] [address] 11 May, 2011 [facility] [address] [id number] [address] [place] [address], [place] [address] 11 May, 2011 [facility] [address] [id number] [address] [place] [address], [place] [address] 09 Jul, 2010 [facility] [address] [id number] [address] [place] [address], [place] [address] 08 Jul, 2010 [facility] [address] [id number] [address] [place] [address], [place] [address] 15 Jun, 2010 [facility] [address] [id number] [address] [place] [address], [place] [address] May, [facility] [address] [id number] [address] [place] [address], [place] [address] May, [facility] [address] [id number] [address] [place] [address], [place] [address] Aug, [facility] [address] [id number] [address] [place] [address], [place] [address] Jul, [facility] [address] [id number] [address] [place] [address], [place] [address] Jun, [facility] [address] [id number] [address] [place] [address], [place] [address] Jun, [facility] [address] [id number] [address] [place] [address], [place] [address] Jun, [facility] [address] [id number] [address] [place] [address], [place] [address] Jun, [facility] [address] [id number] [address] [place] [address], [place] [address] Jun, [facility] [address] [id number] [address] [place] [address], [place] [address] May, [facility] [address] [id number] [address] [place] [address], [place] [address] Sep, IMMUNIZATIONS No Known Immunizations SOCIAL HISTORY Never Assessed REASON FOR VISIT EMR-[facility] PLAN OF CARE VITAL SIGNS MEDICATIONS Unknown [...]
--- OUTSIDE RECORDS SUMMARY | 2020-01-28 14:36 | XMS REPORT ---
Author Author Katarina Manzanares Doctor Organization [facility] Address Unknown Phone Unavailable Care Team Providers Care Plating Technician Name Role Phone Migration, Doctor Unavailable Unavailable PROBLEMS Type Condition ICD9-CM Code TAX64-FL Code Onset Dates Condition S tatus SNOMED Code Problem Chronic obstructive pulmonary disease, unspecified COPD ty pe J44.9 Active 85564897 Problem Cigarette nicotine dependence without complication F17.210 Active 61203211 Problem Osteoarthritis M19.90 Active 34947 5006 Problem High risk medication use Z79.899 Activ e 798064949 Problem Acquired hypothyroidism E03.9 Active 199093086 Problem History of cataract surgery Z98.49 Ac tive 636565202 Problem Urinary incontinence, unspecified type R32 Active 941674767 Problem [facility]CI (current) use of anticoagulants Z79.01 Active 138064460 Problem Chronic atrial fibrillation I48.2 Ac tive 536002799 Problem Encounter for immunization Z23 Act essie 792526090 Problem Other chronic pain G89.29 Active 8 2449285 Problem Diabetes E11.9 Active 549789121 Problem Morbid obesity, unspecified obesity type E66.01 Active 552490686 Problem Irregular heart beats I49.9 Active 988993425 Problem Other urinary incontinence N39.498 Act essie 495425923 Problem Essential hypertension I10 Active 71694506 ALLERGIES No Information ENCOUNTERS Encounter Location Date Diagnosis [facility] [address] [facility] [id number] [address] [place] [phone] Nov, [facility] [address] [facility] [id number] [address] [place] [phone] Oct, Osteoarthritis M19.90 [place] [address] [facility] [id number] [address] [place] [phone] Sep, Osteoarthritis M19.90 [facility] [address] [facility] [id number] [address] [place] [phone] Sep, [facility] (current) use of a nticoagulants Z79.01 ; BMI 45.0-49.9, adult Z68.42 ; Diabetes E11.9 ; Chronic atrial fibrillation I48.2 and Chronic obstructive pulmonary disease, unspecified COPD type J44.9 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 [address] [id number] [address] [place] [phone] Aug, Osteoarthritis M19.90 [facility] [address] [facility] [id number] [address] [place] [phone] Aug, 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 [address] [id number] [address] [place] [address] Jul, Osteoarthritis M19.90 [facility] [address] [id number] [address] [place] [address] Jun, Osteoarthritis M19.90 [facility] [address] [id number] [address] [place] [phone] Jun, [facility]CI (current) use of a nticoagulants Z79.01 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 [address] [id number] [address] [place] [address] Jun, Osteoarthritis M19.90 [facility] [address] [id number] [address] [place] [phone] May, Encounter for immunization Z 23 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 [address] [id number] [address] [place] [phone] May, Osteoarthritis M19.90 [facility] [address] [id number] [address] [place] [phone] May, [facility] [address] [facility] [id number] [address] [place] [phone] May, Diabetes E11.9 ; [facility]CI ( current) use of anticoagulants Z79.01 ; Chronic atrial fibrillation I48.2 ; BMI 45.0-49.9, adult Z68.42 ; Osteoarthritis M19.90 ; Low back pain M54.5 and Other chronic pain G89.29 [facility] [address] [id number] [address] [place] [phone] 20 Apr, 2018 Chronic atrial fibrillation I48.2 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 [address] [id number] [address] [place] [id number] 07 Apr, 2018 Osteoarthritis M19.90 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 [address] [id number] [address] [place] [address] Mar, Osteoarthritis M19.90 [facility] [address] [id number] [address] [place] [phone] Feb, Osteoarthritis M19.90 [facility] [address] [facility] [id number] [address] [place] [address] Jan, Osteoarthritis M19.90 [facility] [address] [facility] [id number] [address] [place] [phone] December, [facility] [address] [facility] [id number] [address] [place] [address] December, Osteoarthritis M19.90 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 [address] [facility] [id number] [address] [place] [address] Nov, Osteoarthritis M19.90 [facility] [address] [facility] [id number] [address] [place] [phone] Oct, Osteoarthritis M19.90 [facility] [address] [facility] [id number] [address] [place] [address] Oct, [facility] (current) use of a nticoagulants Z79.01 [facility] [address] [facility] [id number] [address] [place] [phone] Sep, Osteoarthritis M19.90 [facility] [address] [facility] [id number] [address] [place] [phone] Sep, [facility] [address] [facility] [id number] [address] [place] [phone] Aug, Osteoarthritis M19.90 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 ; Chronic atrial fibrillation I48.2 ; Osteoarthritis M19.90 ; Tobacco abuse Z72.0 and Bug bite, initial encounter W57.XXXA [place] [address] [facility] [id number] [address] [place] [phone] May, Osteoarthritis M19.90 [place] [address] [facility] [id number] [address] [place] [phone] Apr, Osteoarthritis M19.90 [place] [address] [place] [id number] [address] [place] [phone] Mar, Chronic atrial fibrillation I48.2 [place] [address] [facility] [id number] [address] [place] [address] Mar, [place] [address] [id number] [address] [place] [phone] Mar, Osteoarthritis M19.90 [place] [address] [facility] [id number] [address] [place] [address] Mar, [facility]CI (current) use of a nticoagulants Z79.01 and Chronic atrial fibrillation I48.2 [place] [address] [facility] [id number] [address] [place] [phone] Mar, Chronic atrial fibrillation I48.2 and 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 [address] [id number] [address] [place] [address] Mar, Osteoarthritis M19.90 [facility] [address] [facility] [id number] [address] [place] [phone] Feb, Encounter for screening mamm ogram for malignant neoplasm of breast Z12.31 [facility] [address] [facility] [id number] [address] [place] [address] Feb, Osteoarthritis M19.90 [facility] [address] [id number] [address] [place] [phone] Jan, 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 [address] [facility] [id number] [address] [place] [address] Jan, Osteoarthritis M19.90 [facility] [address] [id number] [address] [place] [phone] Jan, Osteoarthritis M19.90 [facility] [address] [facility] [id number] [address] [place] [phone] Jan, [facility] [address] [facility] [id number] [address] [place] [phone] December, Osteoarthritis M19.90 [facility] [address] [facility] [id number] [address] [place] [phone] December, Osteoarthritis M19.90 [facility] [address] [id number] [id number] Nov, [facility] [address] [id number] [address] [place] [phone] Nov, [facility] [address] [facility] [id number] [address] [place] [phone] Nov, [facility] [address] [facility] [id number] [address] [place] [phone] Nov, Diabetes E11.9 [facility] [address] [facility] [id number] [address] [place] [phone] Nov, [facility] [address] [facility] [id number] [address] [place] [phone] Oct, Osteoarthritis M19.90 [facility] [address] [facility] [id number] [address] [place] [phone] Oct, Osteoarthritis M19.90 ; [facility]CI (current) use of anticoagulants Z79.01 ; Diabetes E11.9 ; Cigarette nicotine dependence without complication F17.210 and Chronic atrial fibrillation I48.2 [facility] [address] [facility] [id number] [address] [place] [phone] Aug, 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 [address] [facility] [id number] [address] [place] [phone] Aug, [facility] [id number] [id number] Aug, [facility] [address] [facility] [id number] [address] [place] [phone] Aug, [facility] [address] [facility] [id number] [address] [place] [phone] Aug, [facility] [address] [id number] [place] [facility] [place] [facility] [place] [id number] Aug, [facility] [address] [place] [id number] Aug Osteoarthritis M19.90 and Essential hypertension I10 [facility] [address] [facility] [id number] [address] [place] [address] Aug, Other urinary incontinence N 39.498 [facility] [address] [facility] [id number] [address] [place] [address] Jul, Osteoarthritis M19.90 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 ; Cigarette nicotine dependence without complication F17.210 ; Acquired hypothyroidism E03.9 ; Morbid obesity, unspecified obesity type E66.01 and Irregular heart beats I49.9 [place] [address] [facility] [id number] [address] [place] [address] Jun, Osteoarthritis M19.90 [place] [address] [facility] [id number] [address] [place] [phone] May, Osteoarthritis M19.90 [place] [address] [facility] [id number] [address] [place] [phone] May, Urinary incontinence, unspec ified type R32 [place] [address] [facility] [id number] [address] [place] [phone] May, [place] [address] [facility] [id number] [address] [place] [phone] Apr, Osteoarthritis M19.90 [place] [address] [place] [id number] [address] [place] [address] Apr, [facility] (current) use of a nticoagulants Z79.01 [facility] [address] [facility] [id number] [address] [place] [phone] Apr, [place] [address] [facility] [id number] [address] [place] [phone] Apr, Osteoarthritis M19.90 [facility] [address] [facility] [id number] [address] [place] [phone] Mar, Diabetes E11.9 ; Hypothyroid ism, unspecified type E03.9 ; Osteoarthritis M19.90 ; High risk medication use Z79.899 ; Cigarette nicotine dependence without complication F17.210 and Morbid obesity, unspecified obesity type E66.01 [facility] [address] [id number] [address] [place] [address] Mar, Osteoarthritis M19.90 [facility] [address] [id number] [address] [place] [phone] December, Osteoarthritis M19.90 [facility] [address] [id number] [address] [place] [phone] December, [facility] [address] [id number] [address] [place] [phone] Oct, [facility] [address] [id number] [address] [place] [phone] Oct, [facility] [address] [id number] [address] [place] [phone] Aug, [facility] [address] [facility] [id number] [address] [place] [phone] Jul, [facility] [address] [id number] [address] [place] [phone] Jul, [facility] [address] [facility] [id number] [address] [place] [phone] Jul, Diabetes E11.9 ; Encounter f or immunization Z23 ; Abnormal mammogram R92.8 ; Acquired hypothyroidism E03.9 ; High risk medication use Z79.899 ; Osteoarthritis M19.90 and Cigarette nicotine dependence without complication F17.210 [facility] [address] [id number] [address] [place] [address] Jul, [facility] [address] [facility] [id number] [address] [place] [phone] Jun, Abnormal mammogram R92.8 [facility] [address] [facility] [id number] [address] [place] [phone] Apr, 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 [facility] [address] [id number] [address] [place] [address], [place] [address] Feb, [facility] [address] [id number] [address] [place] [phone] Jan, [facility] [address] [id number] [address] [place] [address], [place] [address] December, [facility] [address] [id number] [address] [place] [phone] Nov, [facility] [address] [id number] [address] [place] [phone] Nov, [facility] [address] [id number] [address] [place] [phone] Oct, [facility] [address] [id number] [address] [place] [phone] Oct, [facility] [address] [id number] [address] [place] [phone] Oct, [facility] [address] [id number] [address] [place] [phone] Oct, [facility] [address] [id number] [address] [place] [phone] Oct, [facility] [address] [id number] [address] [place] [phone] Oct, [facility] [address] [id number] [address] [place] [phone] Sep, [facility] [address] [id number] [address] [place] [phone] Sep, [facility] [address] [id number] [address] [place] [address], [place] [address] Sep, [facility] [address] [id number] [address] [place] [address], [place] [address] Sep, [facility] [address] [id number] [address] [place] [address], [place] [address] Aug, [facility] [address] [id number] [address] [place] [address], [place] [address] Aug, [facility] [address] [id number] [address] [place] [address], [place] [address] Aug, [facility] [address] [id number] [address] [place] [address], [place] [address] Aug, [facility] [address] [id number] [address] [place] [address], [place] [address] Aug, [facility] [address] [id number] [address] [place] [address], [place] [address] Aug, [facility] [address] [id number] [address] [place] [address], [place] [address] Jul, [facility] [address] [id number] [address] [place] [address], [place] [address] Jul, [facility] [address] [id number] [address] [place] [address], [place] [address] Jul, [facility] [address] [id number] [address] [place] [address], [place] [address] Jul, [facility] [address] [id number] [address] [place] [address], [place] [address] Jul, [facility] [address] [id number] [address] [place] [address], [place] [address] Jul, [facility] [address] [id number] [address] [place] [address], [place] [address] Jun, [facility] [address] [id number] [address] [address] Jun, [facility] [address] [id number] [address] [place] [address], [place] [address] Jun, [facility] [address] [id number] [address] [place] [address], [place] [address] Jun, [facility] [address] [id number] [address] [place] [address], [place] [address] Jun, [facility] [address] [id number] [address] [place] [phone] Jun, [facility] [address] [id number] [address] [place] [address], [place] [address] Jun, [facility] [address] [id number] [address] [place] [address], [place] [address] Jun, [facility] [address] [id number] [address] [place] [address], [place] [address] Jun, [facility] [address] [id number] [address] [place] [address], [place] [address] May, [facility] [address] [id number] [address] [place] [address], [place] [address] May, [facility] [address] [id number] [address] [place] [address], [place] [address] Apr, [facility] [address] [id number] [address] [place] [address], [place] [address] Apr, [facility] [address] [id number] [address] [place] [address], [place] [address] Apr, [facility] [address] [id number] [address] [place] [address], [place] [address] Apr, [facility] [address] [id number] [address] [place] [address], [place] [address] Apr, [facility] [address] [id number] [address] [place] [address], [place] [address] Apr, [facility] [address] [id number] [facility] [place] [address] 11 Apr, 2013 [facility] [address] [id number] [address] [place] [address], [place] [address] Apr, [facility] [address] [id number] [address] [place] [address], [place] [address] Apr, [facility] [address] [id number] [address] [place] [address], [place] [address] Apr, [facility] [address] [id number] [address] [place] [address], [place] [address] Mar, [facility] [address] [id number] [address] [place] [address], [place] [address] Mar, [facility] [address] [id number] [address] [place] [address], [place] [address] Mar, [facility] [address] [id number] [address] [place] [address], [place] [address] Mar, [facility] [address] [id number] [address] [place] [address], [place] [address] Mar, [facility] [address] [id number] [address] [place] [address], [place] [address] Mar, [facility] [address] [id number] [address] [place] [address], [place] [address] Feb, [facility] [address] [id number] [address] [place] [address], [place] [address] Feb, [facility] [address] [id number] [address] [place] [address], [place] [address] Feb, [facility] [address] [id number] [address] [place] [address], [place] [address] Feb, [facility] [address] [id number] [address] [place] [address], [place] [address] Jan, [facility] [address] [id number] [address] [place] [address], [place] [address] Jan, [facility] [address] [id number] [address] [place] [address], [place] [address] Jan, [facility] [address] [id number] [address] [place] [address], [place] [address] Jan, [facility] [address] [id number] [address] [place] [address], [place] [address] Oct, [facility] [address] [id number] [address] [place] [place] [address], [place] [address] Oct, [facility] [address] [id number] [address] [place] [address], [place] [address] Sep, [facility] [address] [id number] [address] [place] [address], [place] [address] Sep, [facility] [address] [id number] [address] [place] [address], [place] [address] Sep, [facility] [address] [id number] [address] [place] [address], [place] [address] Sep, [facility] [address] [id number] [address] [place] [address], [place] [address] Aug, [facility] [address] [id number] [address] [place] [address], [place] [address] Aug, [facility] [address] [id number] [address] [place] [address], [place] [address] Aug, [facility] [address] [id number] [address] [place] [address], [place] [address] Aug, [facility] [address] [id number] [address] [place] [address], [place] [address] Jul, [facility] [address] [id number] [address] [place] [address], [place] [address] Jul, [facility] [address] [id number] [address] [place] [address], [place] [address] Jul, [facility] [address] [id number] [address] [place] [address], [place] [address] 14 Jul, 2013 [facility] [address] [id number] [address] [place] [address], [place] [address] 10 Jul, 2013 [facility] [address] [id number] [address] [place] [address], [place] [address] Jul, [facility] [address] [id number] [address] [place] [address], [place] [address] Jun, [facility] [address] [id number] [address] [place] [address], [place] [address] Jun, [facility] [address] [id number] [address] [place] [address], [place] [address] Jun, [facility] [address] [id number] [address] [place] [address], [place] [address] Jun, [facility] [address] [id number] [address] [place] [address], [place] [address] Jun, [facility] [address] [id number] [address] [place] [address], [place] [address] Jun, [facility] [address] [id number] [address] [place] [address], [place] [address] May, [facility] [address] [id number] [address] [place] [address], [place] [address] May, [facility] [address] [id number] [address] [place] [address], [place] [address] May, [facility] [address] [id number] [address] [place] [address], [place] [address] May, [facility] [address] [id number] [address] [place] [address], [place] [address] May, [facility] [address] [id number] [address] [place] [address], [place] [address] May, [facility] [address] [id number] [address] [place] [address], [place] [address] 17 May, 2013 [facility] [address] [id number] [address] [place] [address], [place] [address] May, [facility] [address] [id number] [address] [place] [address], [place] [address] Apr, [facility] [address] [id number] [address] [place] [address], [place] [address] Apr, [facility] [address] [id number] [address] [place] [address], [place] [address] Mar, [facility] [address] [id number] [address] [place] [address], [place] [address] Mar, [facility] [address] [id number] [address] [place] [address], [place] [address] Mar, [facility] [address] [id number] [address] [place] [address], [place] [address] Mar, [facility] [address] [id number] [address] [place] [address], [place] [address] Feb, [facility] [address] [id number] [address] [place] [address], [place] [address] Jan, [facility] [address] [id number] [address] [place] [address], [place] [address] December, [facility] [address] [id number] [address] [place] [address], [place] [address] December, [facility] [address] [id number] [address] [place] [address], [place] [address] December, [facility] [address] [id number] [address] [place] [address], [place] [address] Nov, [facility] [address] [id number] [address] [place] [address], [place] [address] Nov, [facility] [address] [id number] [address] [place] [address], [place] [address] Sep, [facility] [address] [id number] [address] [place] [address], [place] [address] 14 Sep, 2012 [facility] [address] [id number] [address] [place] [address], [place] [address] 14 Sep, 2012 [facility] [address] [id number] [address] [place] [address], [place] [address] 13 Sep, 2012 [facility] [address] [id number] [address] [place] [address], [place] [address] 30 Aug, 2012 [facility] [address] [id number] [address] [place] [address], [place] [address] Aug, [facility] [address] [id number] [address] [place] [address], [place] [address] Aug, [facility] [address] [id number] [address] [place] [address], [place] [address] Aug, [facility] [address] [id number] [address] [place] [address], [place] [address] Jul, [facility] [address] [id number] [address] [place] [address], [place] [address] Jul, [facility] [address] [id number] [address] [place] [address], [place] [address] Jul, [facility] [address] [id number] [address] [place] [address], [place] [address] Jul, [facility] [address] [id number] [address] [place] [address], [place] [address] Jun, [facility] [address] [id number] [address] [place] [address], [place] [address] Jun, [facility] [address] [id number] [address] [place] [address], [place] [address] Jun, [facility] [address] [id number] [address] [place] [address], [place] [address] Jun, [facility] [address] [id number] [address] [place] [address], [place] [address] May, [facility] [address] [id number] [address] [place] [address], [place] [address] 18 May, 2012 [facility] [address] [id number] [address] [place] [address], [place] [address] 10 May, 2012 [facility] [address] [id number] [address] [place] [address], [place] [address] 10 May, 2012 [facility] [address] [id number] [address] [place] [address], [place] [address] 08 May, 2012 [facility] [address] [id number] [address] [place] [address], [place] [address] 10 Apr, 2012 [facility] [address] [id number] [address] [place] [address], [place] [address] 08 Apr, 2012 [facility] [address] [id number] [address] [place] [address], [place] [address] 07 Apr, 2012 [facility] [address] [id number] [address] [place] [address], [place] [address] 06 Apr, 2012 [facility] [address] [id number] [address] [place] [address], [place] [address] Mar, [facility] [address] [id number] [address] [place] [address], [place] [address] Mar, [facility] [address] [id number] [address] [place] [address], [place] [address] Feb, [facility] [address] [id number] [address] [place] [address], [place] [address] Feb, [facility] [address] [id number] [address] [place] [address], [place] [address] Feb, [facility] [address] [id number] [address] [place] [address], [place] [address] Jan, [facility] [address] [id number] [address] [place] [address], [place] [address] Jan, [facility] [address] [id number] [address] [place] [address], [place] [address] December, [facility] [address] [id number] [address] [place] [address], [place] [address] December, [facility] [address] [id number] [address] [place] [address], [place] [address] Nov, [facility] [address] [id number] [address] [place] [address], [place] [address] Oct, [facility] [address] [id number] [address] [place] [address], [place] [address] Oct, [facility] [address] [id number] [address] [place] [address], [place] [address] Sep, [facility] [address] [id number] [address] [place] [address], [place] [address] Sep, [facility] [address] [id number] [address] [place] [address], [place] [address] Aug, [facility] [address] [id number] [address] [place] [address], [place] [address] Aug, [facility] [address] [id number] [address] [place] [address], [place] [address] Jul, [facility] [address] [id number] [address] [place] [address], [place] [address] Jul, [facility] [address] [id number] [address] [place] [address], [place] [address] Jul, [facility] [address] [id number] [address] [place] [address], [place] [address] Jun, [facility] [address] [id number] [address] [place] [address], [place] [address] Jun, [facility] [address] [id number] [address] [place] [address], [place] [address] May, [facility] [address] [id number] [address] [place] [address], [place] [address] May, [facility] [address] [id number] [address] [place] [address] 11 May, 2011 [facility] [address] [id number] [address] [place] [address] 09 Jul, 2010 [facility] [address] [id number] [address] [place] [address] Jul, [facility] [address] [id number] [address] [place] [id number] 15 Jun, 2010 [facility] [address] [id number] [address] [place] [address] May, [facility] [address] [id number] [address] [place] [id number] May, [facility] [address] [id number] [address] [place] [id number] Aug, [facility] [address] [id number] [address] [place] [address] Jul, [facility] [address] [id number] [address] [place] [id number] Jun, [facility] [address] [id number] [address] [place] [id number] Jun, [facility] [address] [id number] [address] [place] [id number] Jun, [facility] [address] [id number] [address] [place] [address] Jun, [facility] [address] [id number] [address] [place] [id number] Jun, [facility] [address] [id number] [address] [place] [phone] May, [facility] [address] [id number] [address] [place] [phone] Sep, IMMUNIZATIONS No Known Immunizations SOCIAL HISTORY Never Assessed REASON FOR VISIT EMR-[place] PLAN OF CARE VITAL SIGNS MEDICATIONS Unknown [...]
[2020-01-28 14:37] LABS: ABG OXYGEN SATURATION 94 % (94-100); ABG PCO2 49 MMHG (35-45); ABG PH 7.45 (7.37-7.43); ABG PO2 63 MMHG (79-93); ABG TCO2 34.9 MMOL/L (21.0-31.0)
--- OUTSIDE RECORDS SUMMARY | 2020-01-28 14:37 | XMS REPORT ---
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 Name Role Phone Migration, Doctor Unavailable Unavailable PROBLEMS Type Condition ICD9-CM Code ZTO95-NU Code Onset Dates Condition S tatus SNOMED Code Problem Chronic obstructive pulmonary disease, unspecified COPD ty pe J44.9 Active 48858404 Problem Cigarette nicotine dependence without complication F17.210 Active 13967705 Problem Osteoarthritis M19.90 Active 87758 5006 Problem High risk medication use Z79.899 Activ e 588565500 Problem Acquired hypothyroidism E03.9 Active 682100812 Problem History of cataract surgery Z98.49 Ac tive 702997261 Problem Urinary incontinence, unspecified type R32 Active 714308118 Problem [facility] (current) use of anticoagulants Z79.01 Active 495429385 Problem Chronic atrial fibrillation I48.2 Ac tive 364027653 Problem Encounter for immunization Z23 Act essie 132499393 Problem Other chronic pain G89.29 Active 8 3499730 Problem Diabetes E11.9 Active 423441145 Problem Morbid obesity, unspecified obesity type E66.01 Active 206840614 Problem Irregular heart beats I49.9 Active 864773113 Problem Other urinary incontinence N39.498 Act essie 536758496 Problem Essential hypertension I10 Active 54075544 ALLERGIES No Information ENCOUNTERS Encounter Location Date Diagnosis [facility] [address] [facility] [id number] [address] [place] [id number] Oct, Osteoarthritis M19.90 [facility] [address] [facility] [id number] [address] [place] [phone] Sep, Osteoarthritis M19.90 [place] [address] [facility] [id number] [address] [place] [phone] Sep, [facility] (current) use of a nticoagulants Z79.01 ; BMI 45.0-49.9, adult Z68.42 ; Diabetes E11.9 ; Chronic atrial fibrillation I48.2 and Chronic obstructive pulmonary disease, unspecified COPD type J44.9 [facility] [address] [id number] [address] [place] [phone] Sep, Diabetes E11.9 ; [facility] ( current) use of anticoagulants Z79.01 ; Chronic atrial fibrillation I48.2 ; Chronic obstructive pulmonary disease, unspecified COPD type J44.9 and BMI 45.0-49.9, adult Z68.42 [facility] [address] [facility] [id number] [address] [place] [address] Aug, Osteoarthritis M19.90 [facility] [address] [facility] [id number] [address] [place] [phone] Aug, [facility] [address] [facility] [id number] [address] [place] [phone] Aug, [facility] (current) use of a nticoagulants Z79.01 ; BMI 45.0-49.9, adult Z68.42 ; Diabetes E11.9 and Chronic atrial fibrillation I48.2 [facility] [address] [id number] [address] [place] [address] Aug, [facility] [address] [id number] [address] [place] [address] Jul, Osteoarthritis M19.90 [facility] [address] [facility] [id number] [address] [place] [address] Jun, Osteoarthritis M19.90 [facility] [address] [facility] [id number] [address] [place] [address] 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, 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 [facility] [address] [facility] [id number] [address] [place] [phone] Jun, Chronic atrial fibrillation I48.2 and [facility]PC (current) use of anticoagulants Z79.01 [facility] [address] [facility] [id number] [address] [place] [phone] Jun, Osteoarthritis M19.90 [facility] [address] [place] [id number] [address] [place] [phone] May, Encounter for immunization Z 23 [place] [address] [facility] [id number] [address] [place] [phone] May, [facility] (current) use of a nticoagulants Z79.01 [place] [address] [facility] [id number] [address] [place] [phone] May, Osteoarthritis M19.90 [place] [address] [facility] [id number] [address] [place] [address] May, [place] [address] [facility] [id number] [address] [place] [address] May, Diabetes E11.9 ; 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 ; Chronic atrial fibrillation I48.2 ; BMI 45.0-49.9, adult Z68.42 ; Osteoarthritis M19.90 ; Low back pain M54.5 and Other chronic pain G89.29 [place] [address] [facility] [id number] [address] [place] [address] Apr, Chronic atrial fibrillation I48.2 [place] [address] [facility] [id number] [address] [place] [id number] 13 Apr, 2018 [facility] (current) use of a nticoagulants Z79.01 [place] [address] [facility] [id number] [address] [place] [address] Apr, Osteoarthritis M19.90 [place] [address] [facility] [id number] [address] [place] [id number] 04 Apr, 2018 [facility] (current) use of a nticoagulants Z79.01 and Chronic atrial fibrillation I48.2 [place] [address] [facility] [id number] [address] [place] [address] Mar, Osteoarthritis M19.90 [place] [address] [facility] [id number] [address] [place] [phone] Feb, Osteoarthritis M19.90 [place] [address] [facility] [id number] [address] [place] [address] Jan, Osteoarthritis M19.90 [facility] [address] [facility] [id number] [address] [place] [phone] December, [facility] [address] [facility] [id number] [address] [place] [address] December, Osteoarthritis M19.90 [facility] [address] [facility] [id number] [address] [place] [address] Nov, Diabetes E11.9 ; 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 ; Acquired hypothyroidism E03.9 ; Cigarette nicotine dependence without complication F17.210 ; Osteoarthritis M19.90 ; BMI 45.0-49.9, adult Z68.42 and Chronic atrial fibrillation I48.2 [facility] [address] [place] [id number] [address] [place] [address] Nov, Osteoarthritis M19.90 [facility] [address] [facility] [id number] [address] [place] [address] Oct, Osteoarthritis M19.90 [facility] [address] [facility] [id number] [address] [place] [address] Oct, [facility] (current) use of a nticoagulants Z79.01 [facility] [address] [facility] [id number] [address] [place] [address] Sep, Osteoarthritis M19.90 [facility] [address] [facility] [id number] [address] [place] [phone] Sep, [facility] [address] [facility] [id number] [address] [place] [address] Aug, Osteoarthritis M19.90 [facility] [address] [facility] [id number] [address] [place] [address] Jul, Osteoarthritis M19.90 [facility] [address] [facility] [id number] [address] [place] [id number] Jul, Osteoarthritis M19.90 [facility] [address] [id number] [address] [place] [address] Jun, Diabetes E11.9 ; Encounter f or immunization Z23 ; 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 ; Chronic atrial fibrillation I48.2 ; Osteoarthritis M19.90 ; Tobacco abuse Z72.0 and Bug bite, initial encounter W57.XXXA [facility] [address] [id number] [address] [place] [phone] May, Osteoarthritis M19.90 [place] [address] [id number] [address] [place] [phone] Apr, Osteoarthritis M19.90 [place] [address] [id number] [address] [place] [phone] Mar, Chronic atrial fibrillation I48.2 [place] [address] [id number] [address] [place] [phone] Mar, [place] [address] [id number] [address] [place] [phone] Mar, Osteoarthritis M19.90 [place] [address] [id number] [address] [place] [phone] Mar, 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 and Chronic atrial fibrillation I48.2 [place] [address] [id number] [address] [place] [phone] Mar, Chronic atrial fibrillation I48.2 and [facility] (current) use of anticoagulants Z79.01 [place] [address] [id number] [address] [place] [phone] Mar, 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 [place] [address] [facility] [id number] [address] [place] [id number] Mar, [facility] (current) use of a nticoagulants Z79.01 [place] [address] [facility] [id number] [address] [place] [phone] Mar, Osteoarthritis M19.90 [facility] [address] [id number] [address] [place] [phone] Feb, Encounter for screening mamm ogram for malignant neoplasm of breast Z12.31 [facility] [address] [id number] [address] [place] [phone] Feb, Osteoarthritis M19.90 [facility] [address] [id number] [address] [place] [phone] Jan, [facility] [address] [id number] [address] [place] [address] Jan, [facility] (current) use of a nticoagulants Z79.01 ; Diabetes E11.9 ; Osteoarthritis M19.90 and Breast cancer screening Z12.39 [facility] [address] [facility] [id number] [address] [place] [phone] Jan, Osteoarthritis M19.90 [facility] [address] [id number] [address] [place] [id number] Jan, Osteoarthritis M19.90 [facility] [address] [id number] [address] [place] [phone] Jan, [facility] [address] [facility] [id number] [address] [place] [address] December, Osteoarthritis M19.90 [facility] [address] [facility] [id number] [address] [place] [phone] December, Osteoarthritis M19.90 [facility] [id number] [id number] Nov, [facility] [address] [facility] [id number] [address] [place] [id number] Nov, [facility] [address] [id number] [address] [place] [phone] Nov, [facility] [address] [facility] [id number] [address] [place] [phone] Nov, Diabetes E11.9 [facility] [address] [facility] [id number] [address] [place] [phone] Nov, [facility] [address] [facility] [id number] [address] [place] [address] Oct, Osteoarthritis M19.90 [facility] [address] [facility] [id number] [address] [place] [address] Oct, Osteoarthritis M19.90 ; [facility]PC (current) use of anticoagulants Z79.01 ; Diabetes E11.9 ; Cigarette nicotine dependence without complication F17.210 and Chronic atrial fibrillation I48.2 [facility] [address] [facility] [id number] [address] [place] [address] Aug, [facility] [address] [facility] [id number] [address] [place] [phone] Aug, 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 [facility] [address] [facility] [id number] [address] [place] [phone] Aug, [facility] [address] [id number] [id number] Aug, [facility] [address] [facility] [id number] [address] [place] [phone] Aug, [facility] [address] [facility] [id number] [address] [place] [phone] Aug, [facility] [address] [place] [id number] [place] [id number] Aug, [employer] [address] [place] [id number] Aug Osteoarthritis M19.90 and Essential hypertension I10 [facility] [address] [facility] [id number] [address] [place] [address] Aug, Other urinary incontinence N 39.498 [facility] [address] [facility] [id number] [address] [place] [address] Jul, Osteoarthritis M19.90 [place] [address] [facility] [id number] [address] [place] [phone] Jun, Diabetes E11.9 ; Encounter f or immunization Z23 ; Osteoarthritis M19.90 ; [facility] (current) use of anticoagulants Z79.01 ; Cigarette nicotine dependence without complication F17.210 ; Acquired hypothyroidism E03.9 ; Morbid obesity, unspecified obesity type E66.01 and Irregular heart beats I49.9 [place] [address] [facility] [id number] [address] [place] [address] Jun, Osteoarthritis M19.90 [place] [address] [place] [id number] [address] [place] [phone] May, Osteoarthritis M19.90 [place] [address] [place] [id number] [place] [address] May, Urinary incontinence, unspec ified type R32 [place] [address] [place] [id number] [address] [place] [phone] May, [place] [address] [place] [id number] [address] [place] [phone] Apr, Osteoarthritis M19.90 [place] [address] [place] [id number] [place] [address] Apr, [facility] (current) use of a nticoagulants Z79.01 [place] [address] [facility] [id number] [address] [place] [phone] Apr, [place] [address] [facility] [id number] [address] [place] [phone] Apr, Osteoarthritis M19.90 [place] [address] [facility] [id number] [address] [place] [id number] Mar, Diabetes E11.9 ; Hypothyroid ism, unspecified type E03.9 ; Osteoarthritis M19.90 ; High risk medication use Z79.899 ; Cigarette nicotine dependence without complication F17.210 and Morbid obesity, unspecified obesity type E66.01 [place] [address] [place] [id number] [address] [place] [address] Mar, Osteoarthritis M19.90 [facility] [address] [facility] [id number] [address] [place] [phone] December, Osteoarthritis M19.90 [facility] [address] [facility] [id number] [address] [place] [id number] December, [facility] [address] [facility] [id number] [address] [place] [phone] Oct, [facility] [address] [facility] [id number] [address] [place] [phone] Oct, [facility] [address] [facility] [id number] [address] [place] [phone] Aug, [facility] [address] [facility] [id number] [address] [place] [phone] Jul, [facility] [address] [facility] [id number] [address] [place] [phone] Jul, [facility] [address] [facility] [id number] [address] [place] [id number] Jul, Diabetes E11.9 ; Encounter f or immunization Z23 ; Abnormal mammogram R92.8 ; Acquired hypothyroidism E03.9 ; High risk medication use Z79.899 ; Osteoarthritis M19.90 and Cigarette nicotine dependence without complication F17.210 [facility] [address] [facility] [id number] [address] [place] [phone] Jul, [facility] [address] [facility] [id number] [address] [place] [id number] Jun, Abnormal mammogram R92.8 [facility] [address] [facility] [id number] [address] [place] [phone] Apr, [facility] [address] [facility] [id number] [address] [place] [phone] Apr, [facility] [address] [facility] [id number] [address] [place] [phone] Mar, [facility] [address] [id number] [address] [place] [phone] Mar, 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 V58.61 [facility] [address] [id number] [address] [place] [address], [place] [address] Feb, [facility] [address] [id number] [address] [place] [address], [place] [address] Jan, [facility] [address] [id number] [address] [place] [phone] December, [facility] [address] [id number] [address] [place] [address], [place] [address] Nov, [facility] [address] [id number] [address] [place] [phone] Nov, [facility] [address] [id number] [address] [place] [phone] Oct, [facility] [address] [id number] [address] [place] [phone] Oct, [facility] [address] [id number] [address] [place] [phone] Oct, [facility] [address] [id number] [address] [place] [phone] Oct, [facility] [address] [id number] [address] [place] [phone] Oct, [facility] [address] [id number] [address] [place] [phone] Oct, [facility] [address] [id number] [address] [place] [phone] Sep, [facility] [address] [id number] [address] [place] [phone] Sep, [facility] [address] [id number] [address] [place] [phone] Sep, [facility] [address] [id number] [address] [place] [address], [place] [address] Sep, [facility] [address] [id number] [address] [place] [address], [place] [address] Aug, [facility] [address] [id number] [address] [place] [address], [place] [address] Aug, [facility] [address] [id number] [address] [place] [address], [place] [address] Aug, [facility] [address] [id number] [address] [place] [address], [place] [address] Aug, [facility] [address] [id number] [address] [place] [address], [place] [address] Aug, [facility] [address] [id number] [address] [place] [address], [place] [address] Aug, [facility] [address] [id number] [address] [place] [address], [place] [address] Jul, [facility] [address] [id number] [address] [place] [address], [place] [address] Jul, [facility] [address] [id number] [address] [place] [address], [place] [address] Jul, [facility] [address] [id number] [address] [place] [address], [place] [address] Jul, [facility] [address] [id number] [address] [place] [address], [place] [address] Jul, [facility] [address] [id number] [address] [place] [address], [place] [address] Jul, [facility] [address] [id number] [address] [place] [address], [place] [address] Jun, [facility] [address] [id number] [address] [place] [address], [place] [address] Jun, [facility] [address] [id number] [address] [place] [address], [place] [address] Jun, [facility] [address] [id number] [address] [place] [address], [place] [address] Jun, [facility] [address] [id number] [address] [place] [address], [place] [address] Jun, [facility] [address] [id number] [address] [place] [address], [place] [address] Jun, [facility] [address] [id number] [address] [place] [address], [place] [address] Jun, [facility] [address] [id number] [address] [place] [address], [place] [address] Jun, [facility] [address] [id number] [address] [place] [address], [place] [address] Jun, [facility] [address] [id number] [address] [place] [address], [place] [address] May, [facility] [address] [id number] [address] [place] [address], [place] [address] May, [facility] [address] [id number] [address] [place] [address], [place] [address] Apr, [facility] [address] [id number] [address] [place] [address], [place] [address] Apr, [facility] [address] [id number] [address] [place] [address], [place] [address] Apr, [facility] [address] [id number] [address] [place] [address], [place] [address] Apr, [facility] [address] [id number] [address] [place] [address], [place] [address] 11 Apr, 2014 [facility] [address] [id number] [address] [place] [address], [place] [address] Apr, [facility] [address] [id number] [address] [place] [address], [place] [address] Apr, [facility] [address] [id number] [facility] [place] [address] Apr, [facility] [address] [id number] [address] [place] [address], [place] [address] Apr, [facility] [address] [id number] [address] [place] [address], [place] [address] Apr, [facility] [address] [id number] [address] [place] [address], [place] [address] Mar, [facility] [address] [id number] [address] [place] [address], [place] [address] Mar, [facility] [address] [id number] [address] [place] [address], [place] [address] Mar, [facility] [address] [id number] [address] [place] [address], [place] [address] Mar, [facility] [address] [id number] [address] [place] [address], [place] [address] Mar, [facility] [address] [id number] [address] [place] [address], [place] [address] Mar, [facility] [address] [id number] [address] [place] [address], [place] [address] Feb, [facility] [address] [id number] [address] [place] [address], [place] [address] Feb, [facility] [address] [id number] [address] [place] [address], [place] [address] Feb, [facility] [address] [id number] [address] [place] [address], [place] [address] Feb, [facility] [address] [id number] [address] [place] [address], [place] [address] Jan, [facility] [address] [id number] [address] [place] [address], [place] [address] Jan, [facility] [address] [id number] [address] [place] [address], [place] [address] Jan, [facility] [address] [id number] [address] [place] [address], [place] [address] Jan, [facility] [address] [id number] [address] [place] [address], [place] [address] Oct, [facility] [address] [id number] [address] [place] [address], [place] [address] Oct, [facility] [address] [id number] [address] [place] [address], [place] [address] Sep, [facility] [address] [id number] [address] [place] [address], [place] [address] Sep, [facility] [address] [id number] [address] [place] [address], [place] [address] Sep, [facility] [address] [id number] [address] [place] [address], [place] [address] Sep, [facility] [address] [id number] [address] [place] [address], [place] [address] Aug, [facility] [address] [id number] [address] [place] [address], [place] [address] Aug, [facility] [address] [id number] [address] [place] [address], [place] [address] Aug, [facility] [address] [id number] [address] [place] [address], [place] [address] Aug, [facility] [address] [id number] [address] [place] [address], [place] [address] Jul, [facility] [address] [id number] [address] [place] [address], [place] [address] Jul, [facility] [address] [id number] [address] [place] [address], [place] [address] Jul, [facility] [address] [id number] [address] [place] [address], [place] [address] Jul, [facility] [address] [id number] [address] [place] [address], [place] [address] Jul, [facility] [address] [id number] [address] [place] [address], [place] [address] Jul, [facility] [address] [id number] [address] [place] [address], [place] [address] Jun, [facility] [address] [id number] [address] [place] [address], [place] [address] Jun, [facility] [address] [id number] [address] [place] [address], [place] [address] Jun, [facility] [address] [id number] [address] [place] [address], [place] [address] Jun, [facility] [address] [id number] [address] [place] [address], [place] [address] Jun, [facility] [address] [id number] [address] [place] [address], [place] [address] Jun, [facility] [address] [id number] [address] [place] [address], [place] [address] May, [facility] [address] [id number] [address] [place] [address], [place] [address] May, [facility] [address] [id number] [address] [place] [address], [place] [address] May, [facility] [address] [id number] [address] [place] [address], [place] [address] May, [facility] [address] [id number] [address] [place] [address], [place] [address] May, [facility] [address] [id number] [address] [place] [address], [place] [address] May, [facility] [address] [id number] [address] [place] [address], [place] [address] May, [facility] [address] [id number] [address] [place] [address], [place] [address] May, [facility] [address] [id number] [address] [place] [address], [place] [address] Apr, [facility] [address] [id number] [address] [place] [address], [place] [address] Apr, [facility] [address] [id number] [address] [place] [address], [place] [address] Mar, [facility] [address] [id number] [address] [place] [address], [place] [address] Mar, [facility] [address] [id number] [address] [place] [address], [place] [address] Mar, [facility] [address] [id number] [address] [place] [address], [place] [address] Mar, [facility] [address] [id number] [address] [place] [address], [place] [address] Feb, [facility] [address] [id number] [address] [place] [address], [place] [address] Jan, [facility] [address] [id number] [address] [place] [address], [place] [address] December, [facility] [address] [id number] [address] [place] [address], [place] [address] December, [facility] [address] [id number] [address] [place] [address], [place] [address] December, [facility] [address] [id number] [address] [place] [address], [place] [address] Nov, [facility] [address] [id number] [address] [place] [address], [place] [address] Nov, [facility] [address] [id number] [address] [place] [address], [place] [address] Sep, [facility] [address] [id number] [address] [place] [address], [place] [address] Sep, [facility] [address] [id number] [address] [place] [address], [place] [address] 14 Sep, 2012 [facility] [address] [id number] [address] [place] [address], [place] [address] Sep, [facility] [address] [id number] [address] [place] [address], [place] [address] Aug, [facility] [address] [id number] [address] [place] [address], [place] [address] Aug, [facility] [address] [id number] [address] [place] [address], [place] [address] Aug, [facility] [address] [id number] [address] [place] [address], [place] [address] Aug, [facility] [address] [id number] [address] [place] [address], [place] [address] Jul, [facility] [address] [id number] [address] [place] [address], [place] [address] Jul, [facility] [address] [id number] [address] [place] [address], [place] [address] Jul, [facility] [address] [id number] [address] [place] [address], [place] [address] Jul, [facility] [address] [id number] [address] [place] [address], [place] [address] Jun, [facility] [address] [id number] [address] [place] [address], [place] [address] Jun, [facility] [address] [id number] [address] [place] [address] Jun, [facility] [address] [id number] [address] [place] [address], [place] [address] Jun, [facility] [address] [id number] [address] [place] [address], [place] [address] May, [facility] [address] [id number] [address] [place] [address], [place] [address] May, [facility] [address] [id number] [facility] [place] [address] 10 May, 2012 [facility] [address] [id number] [address] [place] [address], [place] [address] May, [facility] [address] [id number] [address] [place] [address], [place] [address] 08 May, 2012 [facility] [address] [id number] [address] [place] [address], [place] [address] 10 Apr, 2012 [facility] [address] [id number] [address] [place] [address], [place] [address] 08 Apr, 2012 [facility] [address] [id number] [address] [place] [address], [place] [address] 07 Apr, 2012 [facility] [address] [id number] [address] [place] [address], [place] [address] 06 Apr, 2012 [facility] [address] [id number] [address] [place] [address], [place] [address] Mar, [facility] [address] [id number] [address] [place] [address], [place] [address] Mar, [facility] [address] [id number] [address] [place] [address], [place] [address] Feb, [facility] [address] [id number] [address] [place] [address], [place] [address] Feb, [facility] [address] [id number] [address] [place] [address], [place] [address] Feb, [facility] [address] [id number] [address] [place] [address], [place] [address] Jan, [facility] [address] [id number] [address] [place] [address], [place] [address] Jan, [facility] [address] [id number] [address] [place] [address], [place] [address] December, [facility] [address] [id number] [address] [place] [address], [place] [address] December, [facility] [address] [id number] [address] [place] [address], [place] [address] Nov, [facility] [address] [id number] [address] [place] [address], [place] [address] Oct, [facility] [address] [id number] [address] [place] [address], [place] [address] Oct, [facility] [address] [id number] [address] [place] [address], [place] [address] Sep, [facility] [address] [id number] [address] [place] [address], [place] [address] Sep, [facility] [address] [id number] [address] [place] [address], [place] [address] Aug, [facility] [address] [id number] [address] [place] [address], [place] [address] Aug, [facility] [address] [id number] [address] [place] [address], [place] [address] Jul, [facility] [address] [id number] [address] [place] [address], [place] [address] Jul, [facility] [address] [id number] [address] [place] [address], [place] [address] Jul, [facility] [address] [id number] [address] [place] [address], [place] [address] Jun, [facility] [address] [id number] [address] [place] [address], [place] [address] Jun, [facility] [address] [id number] [address] [place] [address], [place] [address] 13 May, 2011 [facility] [address] [id number] [address] [place] [address], [place] [address] May, [facility] [address] [id number] [address] [place] [address], [place] [address] May, [facility] [address] [id number] [address] [place] [address] 09 Jul, 2010 [facility] [address] [id number] [address] [place] [address] 08 Jul, 2010 [facility] [address] [id number] [address] [place] [id number] 15 Jun, 2010 [facility] [address] [id number] [address] [place] [address] May, [facility] [address] [id number] [address] [place] [address] May, [facility] [address] [id number] [address] [place] [address] Aug, [facility] [address] [id number] [address] [place] [address] Jul, [facility] [address] [id number] [address] [place] [address] Jun, [facility] [address] [id number] [address] [place] [address] Jun, [facility] [address] [id number] [address] [place] [address] Jun, [facility] [address] [id number] [address] [place] [address] Jun, [facility] [address] [id number] [address] [place] [address] Jun, [facility] [address] [id number] [address] [place] [address] May, [facility] [address] [id number] [address] [place] [address] Sep, IMMUNIZATIONS No Known Immunizations SOCIAL HISTORY Never Assessed REASON FOR VISIT [place] [place] VITAL SIGNS MEDICATIONS Medication Instructions Dosage Frequency Start Date End Date Duration S ron amlodipine 5 mg 1 tablet by Oral route 1 time per day Jun, Active Atrovent HFA 17 mcg/actuation 2 puffs by Inhalation ro amisha 4 times per day Apr, Active Lisinopril 40 mg take 1 tablet (40 mg) by oral route o nce daily Jun, Active Nexium 40 mg take 1 capsule (40 mg) by oral route once daily Oct, Active Symbicort 160-4.5 mcg/actuation inhale 2 puffs by inhalation route 2 times per day in the morning and eveningPRN Apr, Active tramadol 50 mg take 1 tablet by Oral route ever y 8 hours as needed PRN pain Oct, Active Ventolin HFA 90 mcg/actuation inhale 2 p uff by Inhalation route as needed every 6 hours for breathing Oct, Active Levoxyl 175 mcg 1 tablet by Oral route 1 time per day Jun, Active Coumadin 5 mg take 1 tablet (5 mg) by oral route once daily Use every day Jun, Active RESULTS No Results PROCEDURES No Known [...]
--- OUTSIDE RECORDS SUMMARY | 2020-01-28 14:37 | XMS REPORT ---
Author Author Katarina Manzanares Doctor Organization [facility] Address Unknown Phone Unavailable Care Team Providers Care Sales And Marketing Manager Name Role Phone Migration, Doctor Unavailable Unavailable PROBLEMS Type Condition ICD9-CM Code HFH41-FC Code Onset Dates Condition S tatus SNOMED Code Problem Chronic obstructive pulmonary disease, unspecified COPD ty pe J44.9 Active 40010370 Problem Cigarette nicotine dependence without complication F17.210 Active 21986386 Problem Osteoarthritis M19.90 Active 83305 5006 Problem High risk medication use Z79.899 Activ e 122113298 Problem Acquired hypothyroidism E03.9 Active 662444987 Problem History of cataract surgery Z98.49 Ac tive 955446502 Problem Urinary incontinence, unspecified type R32 Active 358452071 Problem FDC (current) use of anticoagulants Z79.01 Active 395854366 Problem Chronic atrial fibrillation I48.2 Ac tive 161837985 Problem Encounter for immunization Z23 Act essie 230535662 Problem Other chronic pain G89.29 Active 8 0965121 Problem Diabetes E11.9 Active 836196072 Problem Morbid obesity, unspecified obesity type E66.01 Active 845920236 Problem Irregular heart beats I49.9 Active 563550876 Problem Other urinary incontinence N39.498 Act essie 196609547 Problem Essential hypertension I10 Active 52034310 ALLERGIES No Information ENCOUNTERS Encounter Location Date Diagnosis [facility] [address] [facility] [id number] [address] [place] [phone] Oct, Osteoarthritis M19.90 [facility] [address] [facility] [id number] [address] [place] [phone] Sep, Osteoarthritis M19.90 [place] [address] [facility] [id number] [address] [place] [phone] Sep, [facility]DC (current) use of a nticoagulants Z79.01 ; BMI 45.0-49.9, adult Z68.42 ; Diabetes E11.9 ; Chronic atrial fibrillation I48.2 and Chronic obstructive pulmonary disease, unspecified COPD type J44.9 [facility] [address] [id number] [address] [place] [id number] Sep, Diabetes E11.9 ; FDC ( current) use of anticoagulants Z79.01 ; Chronic atrial fibrillation I48.2 ; Chronic obstructive pulmonary disease, unspecified COPD type J44.9 and BMI 45.0-49.9, adult Z68.42 [facility] [address] [facility] [id number] [address] [place] [phone] Aug, Osteoarthritis M19.90 [facility] [address] [facility] [id number] [address] [place] [phone] Aug, [facility] [address] [facility] [id number] [address] [place] [phone] Aug, FDC (current) use of a nticoagulants Z79.01 ; BMI 45.0-49.9, adult Z68.42 ; Diabetes E11.9 and Chronic atrial fibrillation I48.2 [facility] [address] [id number] [address] [place] [phone] Aug, [facility] [address] [id number] [address] [place] [phone] Jul, Osteoarthritis M19.90 [facility] [address] [facility] [id number] [address] [place] [phone] Jun, Osteoarthritis M19.90 [facility] [address] [facility] [id number] [address] [place] [phone] Jun, 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 architect (current) use of a nticoagulants Z79.01 [facility] [address] [facility] [id number] [address] [place] [phone] Jun, Chronic atrial fibrillation I48.2 and FDC (current) use of anticoagulants Z79.01 [facility] [address] [facility] [id number] [address] [place] [id number] Jun, Osteoarthritis M19.90 [facility] [address] [place] [id number] [address] [place] [phone] May, Encounter for immunization Z 23 [place] [address] [facility] [id number] [address] [place] [phone] May, FDC (current) use of a nticoagulants Z79.01 [place] [address] [facility] [id number] [address] [place] [phone] May, Osteoarthritis M19.90 [place] [address] [facility] [id number] [address] [place] [phone] May, [place] [address] [facility] [id number] [address] [place] [phone] May, Diabetes E11.9 ; 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 architect ( current) use of anticoagulants Z79.01 ; Chronic atrial fibrillation I48.2 ; BMI 45.0-49.9, adult Z68.42 ; Osteoarthritis M19.90 ; Low back pain M54.5 and Other chronic pain G89.29 [place] [address] [facility] [id number] [address] [place] [phone] Apr, Chronic atrial fibrillation I48.2 [place] [address] [facility] [id number] [address] [place] [phone] 13 Apr, 2018 [facility]DC (current) use of a nticoagulants Z79.01 [place] [address] [facility] [id number] [address] [place] [phone] Apr, Osteoarthritis M19.90 [place] [address] [facility] [id number] [address] [place] [phone] 04 Apr, 2018 [facility] (current) use of a nticoagulants Z79.01 and Chronic atrial fibrillation I48.2 [place] [address] [facility] [id number] [address] [place] [phone] Mar, Osteoarthritis M19.90 [place] [address] [facility] [id number] [address] [place] [phone] Feb, Osteoarthritis M19.90 [place] [address] [facility] [id number] [address] [place] [phone] Jan, Osteoarthritis M19.90 [facility] [address] [facility] [id number] [address] [place] [phone] December, [facility] [address] [facility] [id number] [address] [place] [phone] December, Osteoarthritis M19.90 [facility] [address] [facility] [id number] [address] [place] [phone] Nov, Diabetes E11.9 ; 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 architect ( current) use of anticoagulants Z79.01 ; Acquired hypothyroidism E03.9 ; Cigarette nicotine dependence without complication F17.210 ; Osteoarthritis M19.90 ; BMI 45.0-49.9, adult Z68.42 and Chronic atrial fibrillation I48.2 [facility] [address] [place] [id number] [address] [place] [phone] Nov, Osteoarthritis M19.90 [facility] [address] [facility] [id number] [address] [place] [phone] Oct, Osteoarthritis M19.90 [facility] [address] [facility] [id number] [address] [place] [phone] Oct, FDC (current) use of a nticoagulants Z79.01 [facility] [address] [facility] [id number] [address] [place] [phone] Sep, Osteoarthritis M19.90 [facility] [address] [facility] [id number] [address] [place] [phone] Sep, [facility] [address] [facility] [id number] [address] [place] [id number] Aug, Osteoarthritis M19.90 [facility] [address] [facility] [id number] [address] [place] [id number] Jul, Osteoarthritis M19.90 [facility] [address] [facility] [id number] [address] [place] [phone] Jul, Osteoarthritis M19.90 [facility] [address] [id number] [address] [place] [phone] Jun, Diabetes E11.9 ; Encounter f or immunization Z23 ; biztalk architect (current) use of anticoagulants Z79.01 ; Chronic atrial fibrillation I48.2 ; Osteoarthritis M19.90 ; Tobacco abuse Z72.0 and Bug bite, initial encounter W57.XXXA [facility] [address] [id number] [address] [place] [phone] May, Osteoarthritis M19.90 [place] [address] [id number] [address] [place] [phone] Apr, Osteoarthritis M19.90 [place] [address] [id number] [address] [place] [phone] Mar, Chronic atrial fibrillation I48.2 [place] [address] [id number] [address] [place] [phone] Mar, [place] [address] [id number] [address] [place] [phone] Mar, Osteoarthritis M19.90 [place] [address] [id number] [address] [place] [phone] Mar, biztalk architect (current) use of a nticoagulants Z79.01 and Chronic atrial fibrillation I48.2 [place] [address] [id number] [address] [place] [phone] Mar, Chronic atrial fibrillation I48.2 and FDC (current) use of anticoagulants Z79.01 [place] [address] [id number] [address] [place] [phone] Mar, biztalk architect (current) use of a nticoagulants Z79.01 [place] [address] [facility] [id number] [address] [place] [phone] Mar, FDC (current) use of a nticoagulants Z79.01 [place] [address] [facility] [id number] [address] [place] [phone] Mar, Osteoarthritis M19.90 [facility] [address] [id number] [address] [place] [phone] Feb, Encounter for screening mamm ogram for malignant neoplasm of breast Z12.31 [facility] [address] [id number] [address] [place] [phone] Feb, Osteoarthritis M19.90 [facility] [address] [id number] [address] [place] [phone] Jan, [facility] [address] [id number] [address] [place] [phone] Jan, FDC (current) use of a nticoagulants Z79.01 ; Diabetes E11.9 ; Osteoarthritis M19.90 and Breast cancer screening Z12.39 [facility] [address] [facility] [id number] [address] [place] [phone] Jan, Osteoarthritis M19.90 [facility] [address] [id number] [address] [place] [phone] Jan, Osteoarthritis M19.90 [facility] [address] [id number] [address] [place] [phone] Jan, [facility] [address] [facility] [id number] [address] [place] [phone] December, Osteoarthritis M19.90 [facility] [address] [facility] [id number] [address] [place] [phone] December, Osteoarthritis M19.90 [facility] [id number] [id number] Nov, [facility] [address] [facility] [id number] [address] [place] [phone] Nov, [facility] [address] [id number] [address] [place] [phone] Nov, [facility] [address] [facility] [id number] [address] [place] [phone] Nov, Diabetes E11.9 [facility] [address] [facility] [id number] [address] [place] [phone] Nov, [facility] [address] [facility] [id number] [address] [place] [phone] Oct, Osteoarthritis M19.90 [facility] [address] [facility] [id number] [address] [place] [id number] Oct, Osteoarthritis M19.90 ; FDC (current) use of anticoagulants Z79.01 ; Diabetes E11.9 ; Cigarette nicotine dependence without complication F17.210 and Chronic atrial fibrillation I48.2 [facility] [address] [facility] [id number] [address] [place] [phone] Aug, [facility] [address] [facility] [id number] [address] [place] [phone] Aug, biztalk architect (current) use of a nticoagulants Z79.01 [facility] [address] [facility] [id number] [address] [place] [phone] Aug, [facility] [address] [id number] [id number] Aug, [facility] [address] [facility] [id number] [address] [place] [phone] Aug, [facility] [address] [facility] [id number] [address] [place] [phone] Aug, [facility] [address] [place] [id number] [place] [id number] Aug, [facility] [address] [place] [id number] Aug Osteoarthritis M19.90 and Essential hypertension I10 [facility] [address] [facility] [id number] [address] [place] [phone] Aug, Other urinary incontinence N 39.498 [facility] [address] [facility] [id number] [address] [place] [phone] Jul, Osteoarthritis M19.90 [place] [address] [facility] [id number] [address] [place] [phone] Jun, Diabetes E11.9 ; Encounter f or immunization Z23 ; Osteoarthritis M19.90 ; FDC (current) use of anticoagulants Z79.01 ; Cigarette nicotine dependence without complication F17.210 ; Acquired hypothyroidism E03.9 ; Morbid obesity, unspecified obesity type E66.01 and Irregular heart beats I49.9 [place] [address] [facility] [id number] [address] [place] [phone] Jun, Osteoarthritis M19.90 [place] [address] [place] [id number] [address] [place] [id number] May, Osteoarthritis M19.90 [place] [address] [place] [id number] [place] [phone] May, Urinary incontinence, unspec ified type R32 [place] [address] [place] [id number] [address] [place] [phone] May, [place] [address] [place] [id number] [address] [place] [id number] Apr, Osteoarthritis M19.90 [place] [address] [place] [id number] [place] [address] Apr, FDC (current) use of a nticoagulants Z79.01 [place] [address] [facility] [id number] [address] [place] [phone] Apr, [place] [address] [facility] [id number] [address] [place] [phone] Apr, Osteoarthritis M19.90 [place] [address] [facility] [id number] [address] [place] [phone] Mar, Diabetes E11.9 ; Hypothyroid ism, unspecified type E03.9 ; Osteoarthritis M19.90 ; High risk medication use Z79.899 ; Cigarette nicotine dependence without complication F17.210 and Morbid obesity, unspecified obesity type E66.01 [place] [address] [place] [id number] [address] [place] [phone] Mar, Osteoarthritis M19.90 [facility] [address] [facility] [id number] [address] [place] [id number] December, Osteoarthritis M19.90 [facility] [address] [facility] [id number] [address] [place] [phone] December, [facility] [address] [facility] [id number] [address] [place] [phone] Oct, [facility] [address] [facility] [id number] [address] [place] [phone] Oct, [facility] [address] [facility] [id number] [address] [place] [phone] Aug, [facility] [address] [facility] [id number] [address] [place] [phone] Jul, [facility] [address] [facility] [id number] [address] [place] [phone] Jul, [facility] [address] [facility] [id number] [address] [place] [id number] Jul, Diabetes E11.9 ; Encounter f or immunization Z23 ; Abnormal mammogram R92.8 ; Acquired hypothyroidism E03.9 ; High risk medication use Z79.899 ; Osteoarthritis M19.90 and Cigarette nicotine dependence without complication F17.210 [facility] [address] [facility] [id number] [address] [place] [phone] Jul, [facility] [address] [facility] [id number] [address] [place] [phone] Jun, Abnormal mammogram R92.8 [facility] [address] [facility] [id number] [address] [place] [phone] Apr, [facility] [address] [facility] [id number] [address] [place] [phone] Apr, [facility] [address] [facility] [id number] [address] [place] [phone] Mar, [facility] [address] [id number] [address] [place] [phone] Mar, Current use of service desk team lead ant 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 V58.61 [facility] [address] [id number] [address] [place] [address], [place] [phone] Feb, [facility] [address] [id number] [address] [place] [address], [place] [phone] Jan, [facility] [address] [id number] [address] [place] [phone] December, [facility] [address] [id number] [address] [place] [address], [place] [address] Nov, [facility] [address] [id number] [address] [place] [phone] Nov, [facility] [address] [id number] [address] [place] [phone] Oct, [facility] [address] [id number] [address] [place] [phone] Oct, [facility] [address] [id number] [address] [place] [phone] Oct, [facility] [address] [id number] [address] [place] [phone] Oct, [facility] [address] [id number] [address] [place] [phone] Oct, [facility] [address] [id number] [address] [place] [phone] Oct, [facility] [address] [id number] [address] [place] [phone] Sep, [facility] [address] [id number] [address] [place] [phone] Sep, [facility] [address] [id number] [address] [place] [phone] Sep, [facility] [address] [id number] [address] [place] [address], [place] [address] Sep, [facility] [address] [id number] [address] [place] [address], [place] [address] Aug, [facility] [address] [id number] [address] [place] [address], [place] [address] Aug, [facility] [address] [id number] [address] [place] [address], [place] [address] Aug, [facility] [address] [id number] [address] [place] [address], [place] [address] Aug, [facility] [address] [id number] [address] [place] [address], [place] [address] Aug, [facility] [address] [id number] [address] [place] [address], [place] [address] Aug, [facility] [address] [id number] [address] [place] [address], [place] [address] Jul, [facility] [address] [id number] [address] [place] [address], [place] [address] Jul, [facility] [address] [id number] [address] [place] [address], [place] [address] Jul, [facility] [address] [id number] [address] [place] [address], [place] [address] Jul, [facility] [address] [id number] [address] [place] [address], [place] [address] Jul, [facility] [address] [id number] [address] [place] [address], [place] [address] Jul, [facility] [address] [id number] [address] [place] [address], [place] [address] Jun, [facility] [address] [id number] [address] [place] [address], [place] [address] Jun, [facility] [address] [id number] [address] [place] [address], [place] [address] Jun, [facility] [address] [id number] [address] [place] [address], [place] [address] Jun, [facility] [address] [id number] [address] [place] [address], [place] [address] Jun, [facility] [address] [id number] [address] [place] [address], [place] [address] Jun, [facility] [address] [id number] [address] [place] [address], [place] [address] Jun, [facility] [address] [id number] [address] [place] [address], [place] [address] Jun, [facility] [address] [id number] [address] [place] [address], [place] [address] Jun, [facility] [address] [id number] [address] [place] [address], [place] [address] May, [facility] [address] [id number] [address] [place] [address], [place] [address] May, [facility] [address] [id number] [address] [place] [address], [place] [address] Apr, [facility] [address] [id number] [address] [place] [address], [place] [address] Apr, [facility] [address] [id number] [address] [place] [address], [place] [address] Apr, [facility] [address] [id number] [address] [place] [address], [place] [address] Apr, [facility] [address] [id number] [address] [place] [address], [place] [address] 11 Apr, 2014 [facility] [address] [id number] [address] [place] [address], [place] [address] Apr, [facility] [address] [id number] [address] [place] [address], [place] [address] Apr, [facility] [address] [id number] [facility] [place] [address] Apr, [facility] [address] [id number] [address] [place] [address], [place] [address] Apr, [facility] [address] [id number] [address] [place] [address], [place] [address] Apr, [facility] [address] [id number] [address] [place] [address], [place] [address] Mar, [facility] [address] [id number] [address] [place] [address], [place] [address] Mar, [facility] [address] [id number] [address] [place] [address], [place] [address] Mar, [facility] [address] [id number] [address] [place] [address], [place] [address] Mar, [facility] [address] [id number] [address] [place] [address], [place] [address] Mar, [facility] [address] [id number] [address] [place] [address], [place] [address] Mar, [facility] [address] [id number] [address] [place] [address], [place] [address] Feb, [facility] [address] [id number] [address] [place] [address], [place] [address] Feb, [facility] [address] [id number] [address] [place] [address], [place] [address] Feb, [facility] [address] [id number] [address] [place] [address], [place] [address] Feb, [facility] [address] [id number] [address] [place] [address], [place] [address] Jan, [facility] [address] [id number] [address] [place] [address], [place] [address] Jan, [facility] [address] [id number] [address] [place] [address], [place] [address] Jan, [facility] [address] [id number] [address] [place] [address], [place] [address] Jan, [facility] [address] [id number] [address] [place] [address], [place] [address] Oct, [facility] [address] [id number] [address] [place] [address], [place] [address] Oct, [facility] [address] [id number] [address] [place] [address], [place] [address] Sep, [facility] [address] [id number] [address] [place] [address], [place] [address] Sep, [facility] [address] [id number] [address] [place] [address], [place] [address] Sep, [facility] [address] [id number] [address] [place] [address], [place] [address] Sep, [facility] [address] [id number] [address] [place] [address], [place] [address] Aug, [facility] [address] [id number] [address] [place] [address], [place] [address] Aug, [facility] [address] [id number] [address] [place] [address], [place] [address] Aug, [facility] [address] [id number] [address] [place] [address], [place] [address] Aug, [facility] [address] [id number] [address] [place] [address], [place] [address] Jul, [facility] [address] [id number] [address] [place] [address], [place] [address] Jul, [facility] [address] [id number] [address] [place] [address], [place] [address] Jul, [facility] [address] [id number] [address] [place] [address], [place] [address] Jul, [facility] [address] [id number] [address] [place] [address], [place] [address] Jul, [facility] [address] [id number] [address] [place] [address], [place] [address] Jul, [facility] [address] [id number] [address] [place] [address], [place] [address] Jun, [facility] [address] [id number] [address] [place] [address], [place] [address] Jun, [facility] [address] [id number] [address] [place] [address], [place] [address] Jun, [facility] [address] [id number] [address] [place] [address], [place] [address] Jun, [facility] [address] [id number] [address] [place] [address], [place] [address] Jun, [facility] [address] [id number] [address] [place] [address], [place] [address] Jun, [facility] [address] [id number] [address] [place] [address], [place] [address] May, [facility] [address] [id number] [address] [place] [address], [place] [address] May, [facility] [address] [id number] [address] [place] [address], [place] [address] May, [facility] [address] [id number] [address] [place] [address], [place] [address] May, [facility] [address] [id number] [address] [place] [address], [place] [address] May, [facility] [address] [id number] [address] [place] [address], [place] [address] May, [facility] [address] [id number] [address] [place] [address], [place] [address] May, [facility] [address] [id number] [address] [place] [address], [place] [address] May, [facility] [address] [id number] [address] [place] [address], [place] [address] Apr, [facility] [address] [id number] [address] [place] [address], [place] [address] Apr, [facility] [address] [id number] [address] [place] [address], [place] [address] Mar, [facility] [address] [id number] [address] [place] [address], [place] [address] Mar, [facility] [address] [id number] [address] [place] [address], [place] [address] Mar, [facility] [address] [id number] [address] [place] [address], [place] [address] Mar, [facility] [address] [id number] [address] [place] [address], [place] [address] Feb, [facility] [address] [id number] [address] [place] [address], [place] [address] Jan, [facility] [address] [id number] [address] [place] [address], [place] [address] December, [facility] [address] [id number] [address] [place] [address], [place] [address] December, [facility] [address] [id number] [address] [place] [address], [place] [address] December, [facility] [address] [id number] [address] [place] [address], [place] [address] Nov, [facility] [address] [id number] [address] [place] [address], [place] [address] Nov, [facility] [address] [id number] [address] [place] [address], [place] [address] Sep, [facility] [address] [id number] [address] [place] [address], [place] [address] Sep, [facility] [address] [id number] [address] [place] [address], [place] [address] 14 Sep, 2012 [facility] [address] [id number] [address] [place] [address], [place] [address] Sep, [facility] [address] [id number] [address] [place] [address], [place] [address] Aug, [facility] [address] [id number] [address] [place] [address], [place] [address] Aug, [facility] [address] [id number] [address] [place] [address], [place] [address] Aug, [facility] [address] [id number] [address] [place] [address], [place] [address] Aug, [facility] [address] [id number] [address] [place] [address], [place] [address] Jul, [facility] [address] [id number] [address] [place] [address], [place] [address] Jul, [facility] [address] [id number] [address] [place] [address], [place] [address] Jul, [facility] [address] [id number] [address] [place] [address], [place] [address] Jul, [facility] [address] [id number] [address] [place] [address], [place] [address] Jun, [facility] [address] [id number] [address] [place] [address], [place] [address] Jun, [facility] [address] [id number] [address] [place] [address] Jun, [facility] [address] [id number] [address] [place] [address], [place] [address] Jun, [facility] [address] [id number] [address] [place] [address], [place] [address] May, [facility] [address] [id number] [address] [place] [address], [place] [address] May, [facility] [address] [id number] [facility] [place] [address] 10 May, 2012 [facility] [address] [id number] [address] [place] [address], [place] [address] May, [facility] [address] [id number] [address] [place] [address], [place] [address] 08 May, 2012 [facility] [address] [id number] [address] [place] [address], [place] [address] 10 Apr, 2012 [facility] [address] [id number] [address] [place] [address], [place] [address] 08 Apr, 2012 [facility] [address] [id number] [address] [place] [address], [place] [address] 07 Apr, 2012 [facility] [address] [id number] [address] [place] [address], [place] [address] 06 Apr, 2012 [facility] [address] [id number] [address] [place] [address], [place] [address] Mar, [facility] [address] [id number] [address] [place] [address], [place] [address] Mar, [facility] [address] [id number] [address] [place] [address], [place] [address] Feb, [facility] [address] [id number] [address] [place] [address], [place] [address] Feb, [facility] [address] [id number] [address] [place] [address], [place] [address] Feb, [facility] [address] [id number] [address] [place] [address], [place] [address] Jan, [facility] [address] [id number] [address] [place] [address], [place] [address] Jan, [facility] [address] [id number] [address] [place] [address], [place] [address] December, [facility] [address] [id number] [address] [place] [address], [place] [address] December, [facility] [address] [id number] [address] [place] [address], [place] [address] Nov, [facility] [address] [id number] [address] [place] [address], [place] [address] Oct, [facility] [address] [id number] [address] [place] [address], [place] [address] Oct, [facility] [address] [id number] [address] [place] [address], [place] [address] Sep, [facility] [address] [id number] [address] [place] [address], [place] [address] Sep, [facility] [address] [id number] [address] [place] [address], [place] [address] Aug, [facility] [address] [id number] [address] [place] [address], [place] [address] Aug, [facility] [address] [id number] [address] [place] [address], [place] [address] Jul, [facility] [address] [id number] [address] [place] [address], [place] [address] Jul, [facility] [address] [id number] [address] [place] [address], [place] [address] Jul, [facility] [address] [id number] [address] [place] [address], [place] [address] Jun, [facility] [address] [id number] [address] [place] [address], [place] [address] Jun, [facility] [address] [id number] [address] [place] [address], [place] [address] 13 May, 2011 [facility] [address] [id number] [address] [place] [address], [place] [address] May, [facility] [address] [id number] [address] [place] [address], [place] [address] May, [facility] [address] [id number] [address] [place] [address] 09 Jul, 2010 [facility] [address] [id number] [address] [place] [address] 08 Jul, 2010 [facility] [address] [id number] [address] [place] [address] Jun, [facility] [address] [id number] [address] [place] [address] May, [facility] [address] [id number] [address] [place] [address] May, [facility] [address] [id number] [address] [place] [address] Aug, [facility] [address] [id number] [address] [place] [address] Jul, [facility] [address] [id number] [address] [place] [address] Jun, [facility] [address] [id number] [address] [place] [address] Jun, [facility] [address] [id number] [address] [place] [address] Jun, [facility] [address] [id number] [address] [place] [address] Jun, [facility] [address] [id number] [address] [place] [address] Jun, [facility] [address] [id number] [address] [place] [address] May, [facility] [address] [id number] [address] [place] [address] Sep, IMMUNIZATIONS No Known Immunizations SOCIAL HISTORY Never Assessed REASON FOR VISIT EMR-[facility] PLAN OF CARE VITAL SIGNS MEDICATIONS Unknown [...]
--- OUTSIDE RECORDS SUMMARY | 2020-01-28 14:37 | XMS REPORT ---
Author Author Katarina RODRIGUEZ Organization [facility] Address [address] [place] [address] Care Team Providers Care Delivery Associate Name Role Phone GEORGINA RODRIGUEZ Unavailable PROBLEMS Type Condition ICD9-CM Code QET00-IO Code Onset Dates Condition S tatus SNOMED Code Problem History of cataract surgery Z98.49 Ac tive 130505605 Problem senior care (current) use of anticoagulants Z79.01 Active 274796277 Problem Urinary incontinence, unspecified type R32 Active 740076114 Problem Other chronic pain G89.29 Active 8 8170099 Problem Chronic atrial fibrillation I48.2 Ac tive 543259267 Problem Irregular heart beats I49.9 Active 765962919 Problem Morbid obesity, unspecified obesity type E66.01 Active 849844965 Problem Essential hypertension I10 Active 70025245 Problem Other urinary incontinence N39.498 Act essie 303060023 Problem Chronic obstructive pulmonary disease, unspecified COPD ty pe J44.9 Active 90136715 Problem Acquired hypothyroidism E03.9 Active 601786143 Problem High risk medication use Z79.899 Activ e 466458016 Problem Osteoarthritis M19.90 Active 23287 5006 Problem Diabetes E11.9 Active 621528188 Problem Cigarette nicotine dependence without complication F17.210 Active 66773093 Problem Encounter for immunization Z23 Act essie [id number] ALLERGIES No Information ENCOUNTERS Encounter Location Date Diagnosis [facility] [address] [facility] [id number] [address] [place] [phone] Jun, Osteoarthritis M19.90 [facility] [address] [facility] [id number] [address] [place] [phone] Jun, senior care (current) use of a nticoagulants Z79.01 [facility] [address] [facility] [id number] [address] [place] [phone] Jun, Chronic atrial fibrillation I48.2 and senior care (current) use of anticoagulants Z79.01 [place] [address] [id number] [address] [place] [phone] Jun, Osteoarthritis M19.90 [place] [address] [facility] [id number] [address] [place] [phone] May, Encounter for immunization Z 23 [place] [address] [facility] [id number] [address] [place] [phone] May, 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 Z79.01 [place] [address] [id number] [address] [place] [phone] May, Osteoarthritis M19.90 [place] [address] [facility] [id number] [address] [place] [phone] May, [place] [address] [facility] [id number] [address] [place] [phone] May, Diabetes E11.9 ; 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 ( 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.01 ; Chronic atrial fibrillation I48.2 ; BMI 45.0-49.9, adult Z68.42 ; Osteoarthritis M19.90 ; Low back pain M54.5 and Other chronic pain G89.29 [place] [address] [id number] [address] [place] [phone] Apr, Chronic atrial fibrillation I48.2 [place] [address] [id number] [address] [place] [phone] 13 Apr, 2018 senior care (current) use of a nticoagulants Z79.01 [place] [address] [id number] [address] [place] [phone] Apr, Osteoarthritis M19.90 [place] [address] [id number] [address] [place] [phone] 04 Apr, 2018 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 Z79.01 and Chronic atrial fibrillation I48.2 [place] [address] [id number] [address] [place] [phone] Mar, Osteoarthritis M19.90 [facility] [address] [id number] [address] [place] [phone] Feb, Osteoarthritis M19.90 [facility] [address] [facility] [id number] [address] [place] [phone] Jan, Osteoarthritis M19.90 [facility] [address] [facility] [id number] [address] [place] [phone] December, [facility] [address] [facility] [id number] [address] [place] [phone] December, Osteoarthritis M19.90 [facility] [address] [facility] [id number] [address] [place] [address] Nov, Diabetes E11.9 ; senior care ( current) use of anticoagulants Z79.01 ; Acquired hypothyroidism E03.9 ; Cigarette nicotine dependence without complication F17.210 ; Osteoarthritis M19.90 ; BMI 45.0-49.9, adult Z68.42 and Chronic atrial fibrillation I48.2 [facility] [address] [facility] [id number] [address] [place] [phone] Nov, Osteoarthritis M19.90 [facility] [address] [facility] [id number] [address] [place] [phone] Oct, Osteoarthritis M19.90 [facility] [address] [facility] [id number] [address] [place] [phone] Oct, 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 Z79.01 [facility] [address] [id number] [address] [place] [phone] Sep, Osteoarthritis M19.90 [facility] [address] [facility] [id number] [address] [place] [phone] Sep, [facility] [address] [facility] [id number] [address] [place] [address] Aug, Osteoarthritis M19.90 [facility] [address] [id number] [address] [place] [phone] Jul, Osteoarthritis M19.90 [facility] [address] [facility] [id number] [address] [place] [phone] Jul, Osteoarthritis M19.90 [facility] [address] [facility] [id number] [address] [place] [phone] Jun, Diabetes E11.9 ; Encounter f or immunization Z23 ; senior care (current) use of anticoagulants Z79.01 ; Chronic atrial fibrillation I48.2 ; Osteoarthritis M19.90 ; Tobacco abuse Z72.0 and Bug bite, initial encounter W57.XXXA [place] [address] [facility] [id number] [address] [place] [phone] May, Osteoarthritis M19.90 [facility] [address] [facility] [id number] [address] [place] [phone] Apr, Osteoarthritis M19.90 [facility] [address] [id number] [address] [place] [phone] Mar, Chronic atrial fibrillation I48.2 [facility] [address] [id number] [address] [place] [phone] Mar, [facility] [address] [facility] [id number] [address] [place] [phone] Mar, Osteoarthritis M19.90 [facility] [address] [id number] [address] [place] [phone] Mar, 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 Z79.01 and Chronic atrial fibrillation I48.2 [facility] [address] [id number] [address] [place] [phone] Mar, Chronic atrial fibrillation I48.2 and senior care (current) use of anticoagulants Z79.01 [facility] [address] [id number] [address] [place] [phone] Mar, senior care (current) use of a nticoagulants Z79.01 [facility] [address] [id number] [address] [place] [phone] Mar, senior care (current) use of a nticoagulants Z79.01 [facility] [address] [id number] [address] [place] [phone] Mar, Osteoarthritis M19.90 [facility] [address] [id number] [address] [place] [phone] Feb, Encounter for screening mamm ogram for malignant neoplasm of breast Z12.31 [facility] [address] [id number] [address] [place] [phone] Feb, Osteoarthritis M19.90 [facility] [address] [id number] [address] [place] [phone] Jan, [facility] [address] [id number] [address] [place] [phone] Jan, 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 Z79.01 ; Diabetes E11.9 ; Osteoarthritis M19.90 and Breast cancer screening Z12.39 [facility] [address] [id number] [address] [place] [phone] Jan, Osteoarthritis M19.90 [facility] [address] [id number] [address] [place] [phone] Jan, Osteoarthritis M19.90 [facility] [address] [id number] [address] [place] [phone] Jan, [facility] [address] [id number] [address] [place] [phone] December, Osteoarthritis M19.90 [facility] [address] [id number] [address] [place] [phone] December, Osteoarthritis M19.90 [facility] [address] [id number] [id number] Nov, [facility] [address] [id number] [address] [place] [phone] Nov, [facility] [address] [facility] [id number] [address] [place] [phone] Nov, [facility] [address] [facility] [id number] [address] [place] [phone] Nov, Diabetes E11.9 [facility] [address] [facility] [id number] [address] [place] [phone] Nov, [facility] [address] [facility] [id number] [address] [place] [phone] Oct, Osteoarthritis M19.90 [facility] [address] [facility] [id number] [address] [place] [phone] Oct, Osteoarthritis M19.90 ; 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 Z79.01 ; Diabetes E11.9 ; Cigarette nicotine dependence without complication F17.210 and Chronic atrial fibrillation I48.2 [place] [address] [facility] [id number] [address] [place] [phone] Aug, [facility] [address] [facility] [id number] [address] [place] [phone] Aug, 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 Z79.01 [facility] [address] [facility] [id number] [address] [place] [phone] Aug, [facility] [address] [id number] [id number] Aug, [facility] [address] [facility] [id number] [address] [place] [phone] Aug, [facility] [address] [facility] [id number] [address] [place] [phone] Aug, [facility] [id number] [place] [phone] Aug, [facility] [address] [place] [id number] Aug Osteoarthritis M19.90 and Essential hypertension I10 [facility] [address] [facility] [id number] [address] [place] [phone] Aug, Other urinary incontinence N 39.498 [facility] [address] [id number] [address] [place] [phone] Jul, Osteoarthritis M19.90 [facility] [address] [id number] [address] [place] [phone] Jun, Diabetes E11.9 ; Encounter f or immunization Z23 ; Osteoarthritis M19.90 ; 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 Z79.01 ; Cigarette nicotine dependence without complication F17.210 ; Acquired hypothyroidism E03.9 ; Morbid obesity, unspecified obesity type E66.01 and Irregular heart beats I49.9 [facility] [address] [id number] [address] [place] [phone] Jun, Osteoarthritis M19.90 [facility] [address] [facility] [id number] [address] [place] [phone] May, Osteoarthritis M19.90 [facility] [address] [id number] [address] [place] [phone] May, Urinary incontinence, unspec ified type R32 [facility] [address] [id number] [address] [place] [phone] May, [facility] [address] [id number] [address] [place] [phone] Apr, Osteoarthritis M19.90 [facility] [address] [facility] [id number] [address] [place] [phone] Apr, 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 Z79.01 [facility] [address] [id number] [address] [place] [phone] Apr, [facility] [address] [id number] [address] [place] [phone] Apr, Osteoarthritis M19.90 [facility] [address] [facility] [id number] [address] [place] [phone] Mar, Diabetes E11.9 ; Hypothyroid ism, unspecified type E03.9 ; Osteoarthritis M19.90 ; High risk medication use Z79.899 ; Cigarette nicotine dependence without complication F17.210 and Morbid obesity, unspecified obesity type E66.01 [facility] [address] [id number] [address] [place] [phone] Mar, Osteoarthritis M19.90 [facility] [address] [id number] [address] [place] [phone] December, Osteoarthritis M19.90 [facility] [address] [facility] [id number] [address] [place] [phone] December, [facility] [address] [facility] [id number] [address] [place] [phone] Oct, [facility] [address] [facility] [id number] [address] [place] [phone] Oct, [facility] [address] [facility] [id number] [address] [place] [phone] Aug, [facility] [address] [facility] [id number] [address] [place] [phone] Jul, [facility] [address] [facility] [id number] [address] [place] [phone] Jul, [facility] [address] [facility] [id number] [address] [place] [phone] Jul, Diabetes E11.9 ; Encounter f or immunization Z23 ; Abnormal mammogram R92.8 ; Acquired hypothyroidism E03.9 ; High risk medication use Z79.899 ; Osteoarthritis M19.90 and Cigarette nicotine dependence without complication F17.210 [facility] [address] [facility] [id number] [address] [place] [phone] Jul, [facility] [address] [facility] [id number] [address] [place] [phone] Jun, Abnormal mammogram R92.8 [facility] [address] [facility] [id number] [address] [place] [phone] Apr, [facility] [address] [id number] [address] [place] [address], [place] [address] Apr, [facility] [address] [id number] [address] [place] [address], [place] [phone] Mar, [facility] [address] [id number] [address] [place] [address], [place] [phone] Mar, 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 [facility] [address] [id number] [address] [place] [address], [place] [address] Feb, [facility] [address] [id number] [address] [place] [address], [place] [address] Jan, [facility] [address] [id number] [address] [place] [address], [place] [address] December, [facility] [address] [id number] [address] [place] [phone] Nov, [facility] [address] [id number] [address] [place] [address], [place] [phone] Nov, [facility] [address] [id number] [address] [place] [address], [place] [phone] Oct, [facility] [address] [id number] [address] [place] [address], [place] [phone] Oct, [facility] [address] [id number] [address] [place] [phone] Oct, [facility] [address] [id number] [address] [place] [phone] Oct, [facility] [address] [id number] [address] [place] [address], [place] [phone] Oct, [facility] [address] [id number] [address] [place] [address], [place] [phone] Oct, [facility] [address] [id number] [address] [place] [address], [place] [address] Sep, [facility] [address] [id number] [address] [place] [address], [place] [phone] Sep, [facility] [address] [id number] [address] [place] [address], [place] [address] Sep, [facility] [address] [id number] [address] [place] [address], [place] [phone] Sep, [facility] [address] [id number] [address] [place] [address], [place] [address] Aug, [facility] [address] [id number] [address] [place] [address], [place] [phone] Aug, [facility] [address] [id number] [address] [place] [address], [place] [address] Aug, [facility] [address] [id number] [address] [place] [address], [place] [phone] Aug, [facility] [address] [id number] [address] [place] [address], [place] [address] Aug, [facility] [address] [id number] [address] [place] [address], [place] [phone] Aug, [facility] [address] [id number] [address] [place] [address], [place] [address] Jul, [facility] [address] [id number] [address] [place] [address], [place] [address] Jul, [facility] [address] [id number] [address] [place] [address], [place] [address] Jul, [facility] [address] [id number] [address] [place] [address], [place] [address] Jul, [facility] [address] [id number] [address] [place] [address], [place] [address] Jul, [facility] [address] [id number] [address] [place] [address], [place] [address] Jul, [facility] [address] [id number] [address] [place] [address], [place] [address] Jun, [facility] [address] [id number] [address] [place] [address], [place] [address] Jun, [facility] [address] [id number] [address] [place] [address], [place] [address] Jun, [facility] [address] [id number] [address] [place] [address], [place] [address] Jun, [facility] [address] [id number] [address] [place] [address], [place] [address] Jun, [facility] [address] [id number] [address] [place] [address], [place] [address] Jun, [facility] [address] [id number] [address] [place] [address], [place] [address] Jun, [facility] [address] [id number] [address] [place] [address], [place] [address] Jun, [facility] [address] [id number] [address] [place] [address], [place] [address] Jun, [facility] [address] [id number] [address] [place] [address], [place] [address] May, [facility] [address] [id number] [address] [place] [address], [place] [address] May, [facility] [address] [id number] [address] [place] [phone] Apr, [facility] [address] [id number] [address] [place] [phone] Apr, [facility] [address] [id number] [address] [place] [address], [place] [address] Apr, [facility] [address] [id number] [address] [place] [address], [place] [address] Apr, [facility] [address] [id number] [address] [place] [address], [place] [address] Apr, [facility] [address] [id number] [facility] [place] [address] 11 Apr, 2013 [facility] [address] [id number] [address] [place] [address], [place] [address] 11 Apr, 2013 [facility] [address] [id number] [address] [place] [address], [place] [address] Apr, 2013 [facility] [address] [id number] [address] [place] [address], [place] [address] Apr, 2013 [facility] [address] [id number] [address] [place] [address], [place] [address] Apr, 2013 [facility] [address] [id number] [address] [place] [address], [place] [address] Mar, [facility] [address] [id number] [address] [place] [address], [place] [address] Mar, [facility] [address] [id number] [address] [place] [address], [place] [address] Mar, [facility] [address] [id number] [address] [place] [address], [place] [address] Mar, [facility] [address] [id number] [address] [place] [address], [place] [address] Mar, [facility] [address] [id number] [address] [place] [address], [place] [address] Mar, [facility] [address] [id number] [address] [place] [address], [place] [address] Feb, [facility] [address] [id number] [address] [place] [address], [place] [address] Feb, [facility] [address] [id number] [address] [place] [address], [place] [address] Feb, [facility] [address] [id number] [address] [place] [address], [place] [address] Feb, [facility] [address] [id number] [address] [place] [address], [place] [address] Jan, [facility] [address] [id number] [address] [place] [address], [place] [address] Jan, [facility] [address] [id number] [address] [place] [address], [place] [address] Jan, [facility] [address] [id number] [address] [place] [address], [place] [address] Jan, [facility] [address] [id number] [address] [place] [address], [place] [address] Oct, [facility] [address] [id number] [address] [place] [address], [place] [address] Oct, [facility] [address] [id number] [address] [place] [address], [place] [address] Sep, [facility] [address] [id number] [address] [place] [address], [place] [address] Sep, [facility] [address] [id number] [address] [place] [address], [place] [address] Sep, [facility] [address] [id number] [address] [place] [address], [place] [address] Sep, [facility] [address] [id number] [address] [place] [address], [place] [address] Aug, [facility] [address] [id number] [address] [place] [address], [place] [address] Aug, [facility] [address] [id number] [address] [place] [address], [place] [address] Aug, [facility] [address] [address] [id number] [address] [place] [address], [place] [address] Aug, [facility] [address] [id number] [address] [place] [address], [place] [address] Jul, [facility] [address] [id number] [address] [place] [address], [place] [address] Jul, [facility] [address] [id number] [address] [place] [address], [place] [address] 14 Jul, 2013 [facility] [address] [id number] [address] [place] [address], [place] [address] 14 Jul, 2013 [facility] [address] [id number] [address] [place] [address], [place] [address] 10 Jul, 2013 [facility] [address] [id number] [address] [place] [address], [place] [address] Jul, [facility] [address] [id number] [address] [place] [address], [place] [address] Jun, [facility] [address] [id number] [address] [place] [address], [place] [address] Jun, [facility] [address] [id number] [address] [place] [address], [place] [address] Jun, [facility] [address] [id number] [address] [place] [address], [place] [address] Jun, [facility] [address] [id number] [address] [place] [address], [place] [address] Jun, [facility] [address] [id number] [address] [place] [address], [place] [address] Jun, [facility] [address] [id number] [address] [place] [address], [place] [address] May, [facility] [address] [id number] [address] [place] [address], [place] [address] May, [facility] [address] [id number] [address] [place] [address], [place] [address] May, [facility] [address] [id number] [address] [place] [address], [place] [address] May, [facility] [address] [id number] [address] [place] [address], [place] [address] May, [facility] [address] [id number] [address] [place] [address], [place] [address] May, [facility] [address] [id number] [address] [place] [address], [place] [address] May, [facility] [address] [id number] [address] [place] [address], [place] [address] May, [facility] [address] [id number] [address] [place] [address], [place] [address] 30 Apr, 2013 [facility] [address] [id number] [address] [place] [address], [place] [address] Apr, [facility] [address] [id number] [address] [place] [address], [place] [address] Mar, [facility] [address] [id number] [address] [place] [address], [place] [address] Mar, [facility] [address] [id number] [address] [place] [address], [place] [address] Mar, [facility] [address] [id number] [address] [place] [address], [place] [address] Mar, [facility] [address] [id number] [address] [place] [address], [place] [address] Feb, [facility] [address] [id number] [address] [place] [address], [place] [address] Jan, [facility] [address] [id number] [address] [place] [address], [place] [address] December, [facility] [address] [id number] [address] [place] [address], [place] [address] December, [facility] [address] [id number] [address] [place] [address], [place] [address] December, [facility] [address] [id number] [address] [place] [address], [place] [address] Nov, [facility] [address] [id number] [address] [place] [address], [place] [address] Nov, [facility] [address] [id number] [address] [place] [address], [place] [address] 14 Sep, 2012 [facility] [address] [id number] [address] [place] [address], [place] [address] 14 Sep, 2012 [facility] [address] [id number] [address] [place] [address], [place] [address] 14 Sep, 2012 [facility] [address] [id number] [address] [place] [address], [place] [address] Sep, [facility] [address] [id number] [address] [place] [address], [place] [address] 30 Aug, 2012 [facility] [address] [id number] [address] [place] [address], [place] [address] Aug, [facility] [address] [id number] [address] [place] [address], [place] [address] Aug, [facility] [address] [id number] [address] [place] [address], [place] [address] Aug, [facility] [address] [id number] [address] [place] [address], [place] [address] Jul, [facility] [address] [id number] [address] [place] [address], [place] [address] Jul, [facility] [address] [id number] [address] [place] [address], [place] [address] Jul, [facility] [address] [id number] [address] [place] [address], [place] [address] Jul, [facility] [address] [id number] [address] [place] [address], [place] [address] Jun, [facility] [address] [id number] [address] [place] [address], [place] [address] Jun, [facility] [address] [id number] [address] [place] [address], [place] [address] Jun, [facility] [address] [id number] [address] [place] [address], [place] [address] Jun, [facility] [address] [id number] [address] [place] [address], [place] [address] 18 May, 2012 [facility] [address] [id number] [address] [place] [address], [place] [address] 18 May, 2012 [facility] [address] [id number] [address] [place] [address], [place] [address] 10 May, 2012 [facility] [address] [id number] [address] [place] [address], [place] [address] 10 May, 2012 [facility] [address] [id number] [address] [place] [address], [place] [address] 08 May, 2012 [facility] [address] [id number] [address] [place] [address], [place] [address] 10 Apr, 2012 [facility] [address] [id number] [address] [place] [address], [place] [address] 08 Apr, 2012 [facility] [address] [id number] [address] [place] [address], [place] [address] 07 Apr, 2012 [facility] [address] [id number] [address] [place] [address], [place] [address] 06 Apr, 2012 [facility] [address] [id number] [address] [place] [address], [place] [address] Mar, [facility] [address] [id number] [address] [place] [address], [place] [address] Mar, [facility] [address] [id number] [address] [place] [address], [place] [address] Feb, [facility] [address] [id number] [address] [place] [address], [place] [address] Feb, [facility] [address] [id number] [address] [place] [address], [place] [address] Feb, [facility] [address] [id number] [address] [place] [address], [place] [address] Jan, [facility] [address] [id number] [address] [place] [address], [place] [address] Jan, [facility] [address] [id number] [address] [place] [address], [place] [address] December, [facility] [address] [id number] [address] [place] [address], [place] [address] December, [facility] [address] [id number] [address] [place] [address], [place] [address] Nov, [facility] [address] [id number] [address] [place] [address], [place] [address] Oct, [facility] [address] [id number] [address] [place] [address], [place] [address] Oct, [facility] [address] [id number] [address] [place] [address], [place] [address] Sep, [facility] [address] [id number] [address] [place] [address], [place] [address] Sep, [facility] [address] [id number] [address] [place] [address], [place] [address] Aug, [facility] [address] [id number] [address] [place] [address], [place] [address] Aug, [facility] [address] [id number] [address] [place] [address], [place] [address] Jul, [facility] [address] [id number] [address] [place] [address], [place] [address] Jul, [facility] [address] [id number] [address] [place] [address], [place] [address] Jul, [facility] [address] [id number] [address] [place] [address], [place] [address] Jun, [facility] [address] [id number] [address] [place] [address], [place] [address] Jun, [facility] [address] [id number] [address] [place] [address], [place] [address] 13 May, 2011 [facility] [address] [id number] [address] [place] [address], [place] [address] 11 May, 2011 [facility] [address] [id number] [address] [place] [address], [place] [address] 11 May, 2011 [facility] [address] [id number] [address] [place] [address], [place] [address] 09 Jul, 2010 [facility] [address] [id number] [address] [place] [id number] 08 Jul, 2010 [facility] [address] [id number] [address] [place] [address], [place] [address] 15 Jun, 2010 [facility] [address] [id number] [address] [place] [address], [place] [address] May, [facility] [address] [id number] [address] [place] [address], [place] [address] May, [facility] [address] [id number] [address] [place] [phone] 14 Aug, 2009 [facility] [address] [id number] [address] [place] [phone] Jul, [facility] [address] [id number] [address] [place] [phone] Jun, [facility] [address] [id number] [address] [place] [phone] Jun, [facility] [address] [id number] [address] [place] [phone] Jun, [facility] [address] [id number] [address] [place] [phone] Jun, [facility] [address] [id number] [address] [place] [phone] Jun, [facility] [address] [id number] [address] [place] [phone] May, [facility] [address] [id number] [address] [place] [phone] Sep, IMMUNIZATIONS No Known Immunizations SOCIAL HISTORY Never Assessed REASON FOR VISIT Controlled Med Refill 07/12 PLAN OF CARE VITAL SIGNS MEDICATIONS Medication Instructions Dosage Frequency Start Date End Date Duration Jeremias velasquez Tramadol HCl 50 mg Orally 2 times a day 2 tablets 12h Jul, 28 days Active RESULTS No Results PROCEDURES [...]
--- OUTSIDE RECORDS SUMMARY | 2020-01-28 14:38 | XMS REPORT ---
Author Author Katarina RODRIGUEZ Organization [facility] Address [address] [place] [address] Care Team Providers Care Cobol Programmer Name Role Phone GEORGINA RODRIGUEZ Unavailable PROBLEMS Type Condition ICD9-CM Code RLC79-FX Code Onset Dates Condition S tatus SNOMED Code Problem History of cataract surgery Z98.49 Ac tive 077347801 Problem long-term (current) use of anticoagulants Z79.01 Active 378628690 Problem Urinary incontinence, unspecified type R32 Active 002356678 Problem Other chronic pain G89.29 Active 8 1478611 Problem Chronic atrial fibrillation I48.2 Ac tive 434222965 Problem Irregular heart beats I49.9 Active 588863236 Problem Morbid obesity, unspecified obesity type E66.01 Active 585518501 Problem Essential hypertension I10 Active 27299598 Problem Other urinary incontinence N39.498 Act essie 427197949 Problem Chronic obstructive pulmonary disease, unspecified COPD ty pe J44.9 Active 83414689 Problem Acquired hypothyroidism E03.9 Active 508701849 Problem High risk medication use Z79.899 Activ e 422470497 Problem Osteoarthritis M19.90 Active 76209 5006 Problem Diabetes E11.9 Active 055965694 Problem Cigarette nicotine dependence without complication F17.210 Active 98232013 Problem Encounter for immunization Z23 Act essie [id number] ALLERGIES No Information ENCOUNTERS Encounter Location Date Diagnosis [facility] [address] [facility] [id number] [address] [place] [phone] Jun, 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 [facility] [address] [facility] [id number] [address] [place] [phone] Jun, Chronic atrial fibrillation I48.2 and 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.01 [facility] [address] [facility] [id number] [address] [place] [address] Jun, Osteoarthritis M19.90 [facility] [address] [id number] [address] [place] [phone] May, Encounter for immunization Z 23 [facility] [address] [id number] [address] [place] [phone] 17 May, 2018 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 [facility] [address] [id number] [address] [place] [address] May, Osteoarthritis M19.90 [facility] [address] [id number] [address] [place] [phone] May, [facility] [address] [id number] [address] [place] [address] May, Diabetes E11.9 ; long-term ( current) use of anticoagulants Z79.01 ; Chronic atrial fibrillation I48.2 ; BMI 45.0-49.9, adult Z68.42 ; Osteoarthritis M19.90 ; Low back pain M54.5 and Other chronic pain G89.29 [facility] [address] [id number] [address] [place] [id number] 20 Apr, 2018 Chronic atrial fibrillation I48.2 [facility] [address] [id number] [address] [place] [phone] 13 Apr, 2018 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 [facility] [address] [id number] [address] [place] [id number] 07 Apr, 2018 Osteoarthritis M19.90 [facility] [address] [id number] [address] [place] [phone] 04 Apr, 2018 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 and Chronic atrial fibrillation I48.2 [facility] [address] [id number] [address] [place] [address] Mar, Osteoarthritis M19.90 [facility] [address] [id number] [address] [place] [address] Feb, Osteoarthritis M19.90 [facility] [address] [id number] [address] [place] [address] Jan, Osteoarthritis M19.90 [facility] [address] [facility] [id number] [address] [place] [address] December, [facility] [address] [facility] [id number] [address] [place] [address] December, Osteoarthritis M19.90 [facility] [address] [facility] [id number] [address] [place] [address] Nov, Diabetes E11.9 ; 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.01 ; Acquired hypothyroidism E03.9 ; Cigarette nicotine dependence without complication F17.210 ; Osteoarthritis M19.90 ; BMI 45.0-49.9, adult Z68.42 and Chronic atrial fibrillation I48.2 [facility] [address] [facility] [id number] [address] [place] [address] Nov, Osteoarthritis M19.90 [facility] [address] [facility] [id number] [address] [place] [address] Oct, Osteoarthritis M19.90 [facility] [address] [facility] [id number] [address] [place] [phone] Oct, long-term (current) use of a nticoagulants Z79.01 [facility] [address] [facility] [id number] [address] [place] [address] Sep, Osteoarthritis M19.90 [facility] [address] [facility] [id number] [address] [place] [address] Sep, [facility] [address] [facility] [id number] [address] [place] [phone] Aug, Osteoarthritis M19.90 [facility] [address] [facility] [id number] [address] [place] [address] Jul, Osteoarthritis M19.90 [facility] [address] [facility] [id number] [address] [place] [address] Jul, Osteoarthritis M19.90 [facility] [address] [place] [id number] [address] [place] [address] Jun, Diabetes E11.9 ; Encounter f or immunization Z23 ; long-term (current) use of anticoagulants Z79.01 ; Chronic atrial fibrillation I48.2 ; Osteoarthritis M19.90 ; Tobacco abuse Z72.0 and Bug bite, initial encounter W57.XXXA [facility] [address] [facility] [id number] [address] [place] [address] May, Osteoarthritis M19.90 [place] [address] [place] [id number] [address] [place] [address] Apr, Osteoarthritis M19.90 [facility] [address] [facility] [id number] [address] [place] [address] Mar, Chronic atrial fibrillation I48.2 [place] [address] [facility] [id number] [address] [place] [phone] Mar, [place] [address] [facility] [id number] [address] [place] [address] Mar, Osteoarthritis M19.90 [facility] [address] [facility] [id number] [address] [place] [address] Mar, long-term (current) use of a nticoagulants Z79.01 and Chronic atrial fibrillation I48.2 [place] [address] [facility] [id number] [address] [place] [address] Mar, Chronic atrial fibrillation I48.2 and long-term (current) use of anticoagulants Z79.01 [place] [address] [facility] [id number] [address] [place] [phone] Mar, long-term (current) use of a nticoagulants Z79.01 [place] [address] [facility] [id number] [address] [place] [address] Mar, 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 [facility] [address] [id number] [address] [place] [address] Mar, Osteoarthritis M19.90 [facility] [address] [facility] [id number] [address] [place] [address] Feb, Encounter for screening mamm ogram for malignant neoplasm of breast Z12.31 [facility] [address] [facility] [id number] [address] [place] [address] Feb, Osteoarthritis M19.90 [facility] [address] [facility] [id number] [address] [place] [address] Jan, [facility] [address] [facility] [id number] [address] [place] [address] Jan, long-term (current) use of a nticoagulants Z79.01 ; Diabetes E11.9 ; Osteoarthritis M19.90 and Breast cancer screening Z12.39 [facility] [address] [facility] [id number] [address] [place] [address] Jan, Osteoarthritis M19.90 [facility] [address] [facility] [id number] [address] [place] [address] Jan, Osteoarthritis M19.90 [facility] [address] [facility] [id number] [address] [place] [address] Jan, [facility] [address] [facility] [id number] [address] [place] [address] December, Osteoarthritis M19.90 [facility] [address] [facility] [id number] [address] [place] [address] December, Osteoarthritis M19.90 [facility] [id number] [place] [id number] Nov, [facility] [address] [facility] [id number] [address] [place] [phone] Nov, [facility] [address] [facility] [id number] [address] [place] [phone] Nov, [facility] [address] [facility] [id number] [address] [place] [phone] Nov, Diabetes E11.9 [facility] [address] [facility] [id number] [address] [place] [phone] Nov, [facility] [address] [facility] [id number] [address] [place] [address] Oct, Osteoarthritis M19.90 [facility] [address] [facility] [id number] [address] [place] [address] Oct, Osteoarthritis M19.90 ; long-term (current) use of anticoagulants Z79.01 ; Diabetes E11.9 ; Cigarette nicotine dependence without complication F17.210 and Chronic atrial fibrillation I48.2 [facility] [address] [facility] [id number] [address] [place] [address] Aug, [facility] [address] [facility] [id number] [address] [place] [phone] Aug, 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 [facility] [address] [facility] [id number] [address] [place] [address] Aug, [facility] [id number] [place] [address] [id number] Aug, [facility] [address] [facility] [id number] [address] [place] [phone] Aug, [facility] [address] [facility] [id number] [address] [place] [phone] Aug, [facility] [id number] [place] [address] [id number] Aug, [employer] [address] [place] [id number] Aug Osteoarthritis M19.90 and Essential hypertension I10 [facility] [address] [facility] [id number] [address] [place] [address] Aug, Other urinary incontinence N 39.498 [facility] [address] [facility] [id number] [address] [place] [phone] Jul, Osteoarthritis M19.90 [place] [address] [facility] [id number] [address] [place] [address] Jun, Diabetes E11.9 ; Encounter f or immunization Z23 ; Osteoarthritis M19.90 ; long-term (current) use of anticoagulants Z79.01 ; Cigarette nicotine dependence without complication F17.210 ; Acquired hypothyroidism E03.9 ; Morbid obesity, unspecified obesity type E66.01 and Irregular heart beats I49.9 [place] [address] [place] [id number] [address] [place] [address] Jun, Osteoarthritis M19.90 [place] [address] [place] [id number] [place] [address] May, Osteoarthritis M19.90 [place] [address] [place] [id number] [place] [address] May, Urinary incontinence, unspec ified type R32 [place] [address] [place] [id number] [address] [place] [address] May, [place] [address] [facility] [id number] [address] [place] [address] Apr, Osteoarthritis M19.90 [place] [address] [place] [id number] [address] [place] [address] Apr, 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 [place] [address] [place] [id number] [address] [place] [phone] Apr, [place] [address] [facility] [id number] [address] [place] [address] Apr, Osteoarthritis M19.90 [place] [address] [place] [id number] [address] [place] [address] Mar, Diabetes E11.9 ; Hypothyroid ism, unspecified type E03.9 ; Osteoarthritis M19.90 ; High risk medication use Z79.899 ; Cigarette nicotine dependence without complication F17.210 and Morbid obesity, unspecified obesity type E66.01 [facility] [address] [facility] [id number] [address] [place] [address] Mar, Osteoarthritis M19.90 [facility] [address] [facility] [id number] [address] [place] [address] December, Osteoarthritis M19.90 [facility] [address] [facility] [id number] [address] [place] [phone] December, [facility] [address] [facility] [id number] [address] [place] [phone] Oct, [facility] [address] [facility] [id number] [address] [place] [phone] Oct, [facility] [address] [facility] [id number] [address] [place] [phone] Aug, [facility] [address] [facility] [id number] [address] [place] [address] Jul, [facility] [address] [facility] [id number] [address] [place] [id number] Jul, [facility] [address] [facility] [id number] [address] [place] [address] Jul, Diabetes E11.9 ; Encounter f or immunization Z23 ; Abnormal mammogram R92.8 ; Acquired hypothyroidism E03.9 ; High risk medication use Z79.899 ; Osteoarthritis M19.90 and Cigarette nicotine dependence without complication F17.210 [facility] [address] [facility] [id number] [address] [place] [phone] Jul, [facility] [address] [facility] [id number] [address] [place] [address] Jun, Abnormal mammogram R92.8 [facility] [address] [facility] [id number] [address] [place] [phone] Apr, [facility] [address] [facility] [id number] [address] [place] [address] Apr, [facility] [address] [id number] [address] [place] [phone] Mar, [facility] [address] [id number] [address] [place] [phone] Mar, 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 [facility] [address] [id number] [address] [place] [phone] Feb, [facility] [address] [id number] [address] [place] [phone] Jan, [facility] [address] [id number] [address] [place] [phone] December, [facility] [address] [id number] [address] [place] [phone] Nov, [facility] [address] [id number] [address] [place] [phone] Nov, [facility] [address] [id number] [address] [place] [phone] Oct, [facility] [address] [id number] [address] [place] [phone] Oct, [facility] [address] [id number] [address] [place] [phone] Oct, [facility] [address] [id number] [address] [place] [phone] Oct, [facility] [address] [id number] [address] [place] [phone] Oct, [facility] [address] [id number] [address] [place] [phone] Oct, [facility] [address] [id number] [address] [place] [id number] Sep, [facility] [address] [id number] [address] [place] [phone] Sep, [facility] [address] [id number] [address] [place] [address], [place] [address] 05 Sep, 2014 [facility] [address] [id number] [address] [place] [address], [place] [address] Sep, [facility] [address] [id number] [address] [place] [address], [place] [address] Aug, [facility] [address] [id number] [address] [place] [address], [place] [address] Aug, [facility] [address] [id number] [address] [place] [address], [place] [address] Aug, [facility] [address] [id number] [address] [place] [address], [place] [address] Aug, [facility] [address] [id number] [address] [place] [address], [place] [address] Aug, [facility] [address] [id number] [address] [place] [address], [place] [address] Aug, [facility] [address] [id number] [address] [place] [address], [place] [address] Jul, [facility] [address] [id number] [address] [place] [address], [place] [address] Jul, [facility] [address] [id number] [address] [place] [address], [place] [address] Jul, [facility] [address] [id number] [address] [place] [address], [place] [address] Jul, [facility] [address] [id number] [address] [place] [address], [place] [address] Jul, [facility] [address] [id number] [address] [place] [address], [place] [address] Jul, [facility] [address] [id number] [address] [place] [address], [place] [address] Jun, [facility] [address] [id number] [address] [place] [address], [place] [address] Jun, [facility] [address] [id number] [address] [place] [address], [place] [address] Jun, [facility] [address] [id number] [address] [place] [address], [place] [address] Jun, [facility] [address] [id number] [address] [place] [address], [place] [address] Jun, [facility] [address] [id number] [address] [place] [address], [place] [address] Jun, [facility] [address] [id number] [address] [place] [address], [place] [address] Jun, [facility] [address] [id number] [address] [place] [address], [place] [address] Jun, [facility] [address] [id number] [address] [place] [address], [place] [address] Jun, [facility] [address] [id number] [address] [place] [address], [place] [address] May, [facility] [address] [id number] [address] [place] [address], [place] [address] May, [facility] [address] [id number] [address] [place] [address] Apr, [facility] [address] [id number] [address] [place] [id number] Apr, [facility] [address] [id number] [address] [place] [id number] Apr, [facility] [address] [id number] [address] [place] [address], [place] [id number] Apr, [facility] [address] [id number] [address] [place] [address], [place] [address] Apr, [facility] [address] [id number] [address] [place] [address], [place] [address] Apr, [facility] [address] [id number] [address] [place] [id number] Apr, 2013 [facility] [address] [id number] [address] [place] [address], [place] [address] 11 Apr, 2013 [facility] [address] [id number] [address] [place] [address], [place] [address] Apr, [facility] [address] [id number] [address] [place] [address], [place] [address] Apr, [facility] [address] [id number] [address] [place] [address], [place] [address] Mar, [facility] [address] [id number] [address] [place] [address], [place] [address] Mar, [facility] [address] [id number] [address] [place] [address], [place] [address] Mar, [facility] [address] [id number] [address] [place] [address], [place] [address] Mar, [facility] [address] [id number] [address] [place] [address], [place] [address] Mar, [facility] [address] [id number] [address] [place] [address], [place] [address] Mar, [facility] [address] [id number] [address] [place] [address], [place] [address] Feb, [facility] [address] [id number] [address] [place] [address], [place] [address] Feb, [facility] [address] [id number] [address] [place] [address], [place] [address] Feb, [facility] [address] [id number] [address] [place] [address], [place] [address] Feb, [facility] [address] [id number] [address] [place] [address], [place] [address] Jan, [facility] [address] [id number] [address] [place] [address], [place] [address] Jan, [facility] [address] [id number] [address] [place] [address], [place] [address] Jan, [facility] [address] [id number] [address] [place] [address], [place] [address] Jan, [facility] [address] [id number] [address] [place] [address], [place] [address] Oct, [facility] [address] [id number] [address] [place] [address], [place] [address] Oct, [facility] [address] [id number] [address] [place] [address], [place] [address] Sep, [facility] [address] [id number] [address] [place] [address], [place] [address] Sep, [facility] [address] [id number] [address] [place] [address], [place] [address] Sep, [facility] [address] [id number] [address] [place] [address], [place] [address] Sep, [facility] [address] [id number] [address] [place] [address], [place] [address] Aug, [facility] [address] [id number] [address] [place] [address], [place] [address] Aug, [facility] [address] [id number] [address] [place] [address], [place] [address] Aug, [facility] [address] [id number] [address] [place] [address], [place] [address] Aug, [facility] [address] [id number] [address] [place] [address], [place] [address] Jul, [facility] [address] [id number] [address] [place] [address], [place] [address] Jul, [facility] [address] [id number] [address] [place] [address], [place] [address] Jul, [facility] [address] [id number] [address] [place] [address], [place] [address] 14 Jul, 2013 [facility] [address] [id number] [address] [place] [address], [place] [address] Jul, [facility] [address] [id number] [address] [place] [address], [place] [address] Jul, [facility] [address] [id number] [address] [place] [address], [place] [address] Jun, [facility] [address] [id number] [address] [place] [address] Jun, [facility] [address] [id number] [address] [place] [address], [place] [address] Jun, [facility] [address] [id number] [address] [place] [address], [place] [address] Jun, [facility] [address] [id number] [address] [place] [address], [place] [address] Jun, [facility] [address] [id number] [address] [place] [address], [place] [address] Jun, [facility] [address] [id number] [address] [place] [address], [place] [address] May, [facility] [address] [id number] [address] [place] [address], [place] [address] May, [facility] [address] [id number] [address] [place] [address], [place] [address] May, [facility] [address] [id number] [address] [place] [address] May, [facility] [address] [id number] [address] [place] [address], [place] [address] May, [facility] [address] [id number] [address] [place] [address], [place] [address] May, [facility] [address] [id number] [address] [place] [address], [place] [address] May, [facility] [address] [id number] [address] [place] [address], [place] [address] May, [facility] [address] [id number] [address] [place] [address], [place] [address] 30 Apr, 2013 [facility] [address] [id number] [address] [place] [address], [place] [address] Apr, [facility] [address] [id number] [address] [place] [address], [place] [address] Mar, [facility] [address] [id number] [address] [place] [address], [place] [address] Mar, [facility] [address] [id number] [address] [place] [address], [place] [address] Mar, [facility] [address] [id number] [address] [place] [address], [place] [address] Mar, [facility] [address] [id number] [address] [place] [address], [place] [address] Feb, [facility] [address] [id number] [address] [place] [address], [place] [address] Jan, [facility] [address] [id number] [address] [place] [address], [place] [address] December, [facility] [address] [id number] [address] [place] [address], [place] [address] December, [facility] [address] [id number] [address] [place] [address], [place] [address] December, [facility] [address] [id number] [address] [place] [address], [place] [address] Nov, [facility] [address] [id number] [address] [place] [address], [place] [address] Nov, [facility] [address] [id number] [address] [place] [address], [place] [address] Sep, [facility] [address] [id number] [address] [place] [address], [place] [address] Sep, [facility] [address] [id number] [address] [place] [address], [place] [address] 14 Sep, 2012 [facility] [address] [id number] [address] [place] [address], [place] [address] 13 Sep, 2012 [facility] [address] [id number] [address] [place] [address], [place] [address] 30 Aug, 2012 [facility] [address] [id number] [address] [place] [address], [place] [address] Aug, [facility] [address] [id number] [address] [place] [address], [place] [address] Aug, [facility] [address] [id number] [address] [place] [address], [place] [address] Aug, [facility] [address] [id number] [address] [place] [address], [place] [address] Jul, [facility] [address] [id number] [address] [place] [address], [place] [address] Jul, [facility] [address] [id number] [address] [place] [address], [place] [address] Jul, [facility] [address] [id number] [address] [place] [address], [place] [address] Jul, [facility] [address] [id number] [address] [place] [address], [place] [address] Jun, [facility] [address] [id number] [address] [place] [address], [place] [address] Jun, [facility] [address] [id number] [address] [place] [address], [place] [address] Jun, [facility] [address] [id number] [address] [place] [address], [place] [address] Jun, [facility] [address] [id number] [address] [place] [address], [place] [address] May, [facility] [address] [id number] [address] [place] [address], [place] [address] 18 May, 2012 [facility] [address] [id number] [address] [place] [address], [place] [address] 10 May, 2012 [facility] [address] [id number] [address] [place] [address], [place] [address] 10 May, 2012 [facility] [address] [id number] [address] [place] [address], [place] [address] 08 May, 2012 [facility] [address] [id number] [address] [place] [address], [place] [address] 10 Apr, 2012 [facility] [address] [id number] [address] [place] [address], [place] [address] 08 Apr, 2012 [facility] [address] [id number] [address] [place] [address], [place] [address] 07 Apr, 2012 [facility] [address] [id number] [address] [place] [address], [place] [address] 06 Apr, 2012 [facility] [address] [id number] [address] [place] [address], [place] [address] Mar, [facility] [address] [id number] [address] [place] [address], [place] [address] Mar, [facility] [address] [id number] [address] [place] [address], [place] [address] Feb, [facility] [address] [id number] [address] [place] [address], [place] [address] Feb, [facility] [address] [id number] [address] [place] [address], [place] [address] Feb, [facility] [address] [id number] [address] [place] [address], [place] [address] Jan, [facility] [address] [id number] [address] [place] [address], [place] [address] Jan, [facility] [address] [id number] [address] [place] [address], [place] [address] December, [facility] [address] [id number] [address] [place] [address], [place] [address] December, [facility] [address] [id number] [address] [place] [address], [place] [address] Nov, [facility] [address] [id number] [address] [place] [address], [place] [address] Oct, [facility] [address] [id number] [address] [place] [address], [place] [address] Oct, [facility] [address] [id number] [address] [place] [address], [place] [address] Sep, [facility] [address] [id number] [address] [place] [address], [place] [address] Sep, [facility] [address] [id number] [address] [place] [address], [place] [address] Aug, [facility] [address] [id number] [address] [place] [address], [place] [address] Aug, [facility] [address] [id number] [address] [place] [address], [place] [address] Jul, [facility] [address] [id number] [address] [place] [address], [place] [address] Jul, [facility] [address] [id number] [address] [place] [address], [place] [address] Jul, [facility] [address] [id number] [address] [place] [address], [place] [address] Jun, [facility] [address] [id number] [address] [place] [address], [place] [address] Jun, [facility] [address] [id number] [address] [place] [address], [place] [address] May, [facility] [address] [id number] [address] [place] [address], [place] [address] May, [facility] [address] [id number] [address] [place] [address] May, [facility] [address] [id number] [address] [place] [address] Jul, [facility] [address] [id number] [address] [place] [address] Jul, [facility] [address] [id number] [address] [place] [address] Jun, [facility] [address] [id number] [address] [place] [address] May, [facility] [address] [id number] [address] [place] [address] May, [facility] [address] [id number] [address] [place] [address] Aug, [facility] [address] [id number] [address] [place] [address] Jul, [facility] [address] [id number] [address] [place] [address] Jun, [facility] [address] [id number] [address] [place] [address] Jun, [facility] [address] [id number] [address] [place] [address] Jun, [facility] [address] [id number] [address] [place] [address] Jun, [facility] [address] [id number] [address] [place] [address] Jun, [facility] [address] [id number] [address] [place] [address] May, [facility] [address] [id number] [address] [place] [address] Sep, IMMUNIZATIONS No Known Immunizations SOCIAL HISTORY Never Assessed REASON FOR VISIT Lab (walk-in) PLAN OF CARE Activity Details Pending Test INR (IN HOUSE) VITAL SIGNS MEDICATIONS Unknown Medications RESULTS No Results PROCEDURES Procedure Date Ordered Result Body Site PROTHROMBIN TIME Jul 02, 2018 INSTRUCTIONS MEDICATIONS ADMINISTERED No Known Medications MEDICAL [...]
--- OUTSIDE RECORDS SUMMARY | 2020-01-28 14:38 | XMS REPORT ---
Author Author Katarina RODRIGUEZ Organization [facility] Address [address] [place] [address] Care Team Providers Care Scudding Inspector Name Role Phone GEORGINA RODRIGUEZ Unavailable PROBLEMS Type Condition ICD9-CM Code DUK37-MQ Code Onset Dates Condition S tatus SNOMED Code Problem History of cataract surgery Z98.49 Ac tive 027601479 Problem snf (current) use of anticoagulants Z79.01 Active 448339242 Problem Urinary incontinence, unspecified type R32 Active 493586416 Problem Other chronic pain G89.29 Active 8 8924123 Problem Chronic atrial fibrillation I48.2 Ac tive 001251419 Problem Irregular heart beats I49.9 Active 604233128 Problem Morbid obesity, unspecified obesity type E66.01 Active 139300403 Problem Essential hypertension I10 Active 47830644 Problem Other urinary incontinence N39.498 Act essie 681960521 Problem Eye exam normal Z01.00 Active 2438 69565 Problem Abnormal mammogram R92.8 Active 1 81427221 Problem Acquired hypothyroidism E03.9 Active 926328973 Problem High risk medication use Z79.899 Activ e 480185171 Problem Osteoarthritis M19.90 Active 74213 5006 Problem Diabetes E11.9 Active 609341990 Problem Cigarette nicotine dependence without complication F17.210 Active 12717658 Problem Encounter for immunization Z23 Act essie 566337189 ALLERGIES Substance Reaction Event Type Date Status Benadryl itching Drug Allergy May, Active ENCOUNTERS Encounter Location Date Diagnosis [facility] [address] [facility] [id number] [address] [place] [address] May, Osteoarthritis M19.90 [facility] [address] [facility] [id number] [address] [place] [address] May, [facility] [address] [facility] [id number] [address] [place] [address] May, Diabetes E11.9 ; snf ( current) use of anticoagulants Z79.01 ; Chronic atrial fibrillation I48.2 ; BMI 45.0-49.9, adult Z68.42 ; Osteoarthritis M19.90 ; Low back pain M54.5 and Other chronic pain G89.29 [facility] [address] [facility] [id number] [address] [place] [address] 20 Apr, 2018 Chronic atrial fibrillation I48.2 [facility] [address] [id number] [address] [place] [address] 13 Apr, 2018 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 [facility] [address] [facility] [id number] [address] [place] [address] 07 Apr, 2018 Osteoarthritis M19.90 [place] [address] [facility] [id number] [address] [place] [address] 04 Apr, 2018 snf (current) use of a nticoagulants Z79.01 and Chronic atrial fibrillation I48.2 [facility] [address] [id number] [address] [place] [address] Mar, Osteoarthritis M19.90 [place] [address] [facility] [id number] [address] [place] [address] Feb, Osteoarthritis M19.90 [place] [address] [facility] [id number] [address] [place] [address] Jan, Osteoarthritis M19.90 [facility] [address] [facility] [id number] [address] [place] [address] December, [facility] [address] [facility] [id number] [address] [place] [address] December, Osteoarthritis M19.90 [facility] [address] [facility] [id number] [address] [place] [address] Nov, Diabetes E11.9 ; 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 ; Acquired hypothyroidism E03.9 ; Cigarette nicotine dependence without complication F17.210 ; Osteoarthritis M19.90 ; BMI 45.0-49.9, adult Z68.42 and Chronic atrial fibrillation I48.2 [facility] [address] [facility] [id number] [address] [place] [address] Nov, Osteoarthritis M19.90 [facility] [address] [facility] [id number] [address] [place] [address] Oct, Osteoarthritis M19.90 [facility] [address] [place] [id number] [place] [address] Oct, 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 [facility] [address] [facility] [id number] [address] [place] [address] Sep, Osteoarthritis M19.90 [facility] [address] [place] [id number] [address] [place] [address] Sep, [facility] [address] [place] [id number] [address] [place] [address] Aug, Osteoarthritis M19.90 [facility] [address] [place] [id number] [address] [place] [address] Jul, Osteoarthritis M19.90 [facility] [address] [address] Jul, Osteoarthritis M19.90 [facility] [address] [place] [id number] [address] [place] [address] Jun, Diabetes E11.9 ; Encounter f or immunization Z23 ; 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 ; Chronic atrial fibrillation I48.2 ; Osteoarthritis M19.90 ; Tobacco abuse Z72.0 and Bug bite, initial encounter W57.XXXA [facility] [address] [place] [id number] [address] [place] [address] May, Osteoarthritis M19.90 [facility] [address] [place] [id number] [address] [place] [address] Apr, Osteoarthritis M19.90 [facility] [address] [place] [id number] [place] [address] Mar, Chronic atrial fibrillation I48.2 [facility] [address] [id number] [address] [place] [address] Mar, [facility] [address] [id number] [address] [place] [address] Mar, Osteoarthritis M19.90 [facility] [address] [id number] [address] [place] [address] Mar, 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 and Chronic atrial fibrillation I48.2 [place] [address] [id number] [address] [place] [address] Mar, Chronic atrial fibrillation I48.2 and 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 [place] [address] [id number] [address] [place] [address] Mar, 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 [place] [address] [id number] [address] [place] [address] Mar, 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 [place] [address] [id number] [address] [place] [address] Mar, Osteoarthritis M19.90 [place] [address] [id number] [address] [place] [address] Feb, Encounter for screening mamm ogram for malignant neoplasm of breast Z12.31 [place] [address] [id number] [address] [place] [address] Feb, Osteoarthritis M19.90 [facility] [address] [id number] [address] [place] [address] Jan, [place] [address] [id number] [address] [place] [address] Jan, snf (current) use of a nticoagulants Z79.01 ; Diabetes E11.9 ; Osteoarthritis M19.90 and Breast cancer screening Z12.39 [facility] [address] [facility] [id number] [address] [place] [address] Jan, Osteoarthritis M19.90 [facility] [address] [facility] [id number] [address] [place] [address] Jan, Osteoarthritis M19.90 [facility] [address] [facility] [id number] [address] [place] [address] Jan, [facility] [address] [facility] [id number] [address] [place] [address] December, Osteoarthritis M19.90 [facility] [address] [facility] [id number] [address] [place] [address] December, Osteoarthritis M19.90 [facility] [id number] [place] [id number] Nov, [facility] [address] [facility] [id number] [address] [place] [address] Nov, [facility] [address] [facility] [id number] [address] [place] [address] Nov, [facility] [address] [facility] [id number] [address] [place] [address] Nov, Diabetes E11.9 [facility] [address] [facility] [id number] [address] [place] [address] Nov, [facility] [address] [facility] [id number] [address] [place] [address] Oct, Osteoarthritis M19.90 [facility] [address] [facility] [id number] [address] [place] [address] Oct, Osteoarthritis M19.90 ; snf (current) use of anticoagulants Z79.01 ; Diabetes E11.9 ; Cigarette nicotine dependence without complication F17.210 and Chronic atrial fibrillation I48.2 [facility] [address] [place] [id number] [address] [place] [address] Aug, [facility] [address] [facility] [id number] [address] [place] [address] Aug, 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 [address] [id number] [id number] Aug, [employer] [address] [place] [id number] Aug Osteoarthritis M19.90 and Essential hypertension I10 [facility] [address] [place] [id number] [address] [place] [address] Aug, Other urinary incontinence N 39.498 [place] [address] [address] Jul, Osteoarthritis M19.90 [place] [address] [address] Jun, Diabetes E11.9 ; Encounter f or immunization Z23 ; Osteoarthritis M19.90 ; snf (current) use of anticoagulants Z79.01 ; Cigarette nicotine dependence without complication F17.210 ; Acquired hypothyroidism E03.9 ; Morbid obesity, unspecified obesity type E66.01 and Irregular heart beats I49.9 [facility] [address] [place] [id number] [address] [place] [address] Jun, Osteoarthritis M19.90 [facility] [address] [place] [id number] [address] [place] [address] May, Osteoarthritis M19.90 [place] [address] [facility] [id number] [address] [place] [address] May, Urinary incontinence, unspec ified type R32 [facility] [address] [facility] [id number] [address] [place] [address] May, [facility] [address] [place] [id number] [address] [place] [address] Apr, Osteoarthritis M19.90 [facility] [address] [place] [id number] [place] [address] Apr, snf (current) use of a nticoagulants Z79.01 [facility] [address] [place] [id number] [address] [place] [address] Apr, [place] [address] [place] [id number] [place] [address] Apr, Osteoarthritis M19.90 [place] [address] [place] [id number] [place] [address] Mar, Diabetes E11.9 ; Hypothyroid ism, unspecified type E03.9 ; Osteoarthritis M19.90 ; High risk medication use Z79.899 ; Cigarette nicotine dependence without complication F17.210 and Morbid obesity, unspecified obesity type E66.01 [place] [address] [place] [id number] [address] [place] [address] Mar, Osteoarthritis M19.90 [facility] [address] [place] [id number] [address] [place] [address] December, Osteoarthritis M19.90 [facility] [address] [place] [id number] [address] [place] [address] December, [facility] [address] [place] [id number] [address] [place] [address] Oct, [place] [address] [place] [id number] [address] [place] [address] Oct, [facility] [address] [address] Aug, [facility] [address] [id number] [address] [place] [address] Jul, [facility] [address] [id number] [address] [place] [address] Jul, [facility] [address] [facility] [id number] [address] [place] [address] Jul, Diabetes E11.9 ; Encounter f or immunization Z23 ; Abnormal mammogram R92.8 ; Acquired hypothyroidism E03.9 ; High risk medication use Z79.899 ; Osteoarthritis M19.90 and Cigarette nicotine dependence without complication F17.210 [facility] [address] [id number] [address] [place] [address] Jul, [facility] [address] [facility] [id number] [address] [place] [address] Jun, Abnormal mammogram R92.8 [facility] [address] [id number] [address] [place] [address] Apr, [facility] [address] [id number] [address] [place] [address] Apr, [facility] [address] [facility] [id number] [address] [place] [address] Mar, [facility] [address] [id number] [address] [place] [address] Mar, 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 [facility] [address] [id number] [address] [place] [address] Feb, [facility] [address] [id number] [address] [place] [address] Jan, [facility] [address] [facility] [id number] [address] [place] [address] December, [facility] [address] [facility] [id number] [address] [place] [address] Nov, [facility] [address] [id number] [address] [place] [address], [place] [address] Nov, [facility] [address] [id number] [address] [place] [address], [place] [address] Oct, [facility] [address] [id number] [address] [place] [address], [place] [address] Oct, [facility] [address] [id number] [address] [place] [address], [place] [address] Oct, [facility] [address] [id number] [address] [place] [address], [place] [address] Oct, [facility] [address] [id number] [address] [place] [address], [place] [address] Oct, [facility] [address] [id number] [address] [place] [address], [place] [address] Oct, [facility] [address] [id number] [address] [place] [address], [place] [address] Sep, [facility] [address] [id number] [address] [place] [address], [place] [address] Sep, [facility] [address] [id number] [address] [place] [address], [place] [address] Sep, [facility] [address] [id number] [address] [place] [address], [place] [address] Sep, [facility] [address] [id number] [address] [place] [address], [place] [address] Aug, [facility] [address] [id number] [address] [place] [address], [place] [address] Aug, [facility] [address] [id number] [address] [place] [address], [place] [address] Aug, [facility] [address] [id number] [address] [place] [address], [place] [address] Aug, [facility] [address] [id number] [address] [place] [address], [place] [address] 15 Aug, 2014 [facility] [address] [id number] [address] [place] [address], [place] [address] Aug, [facility] [address] [id number] [address] [place] [address], [place] [address] Jul, [facility] [address] [id number] [address] [place] [address], [place] [address] Jul, [facility] [address] [id number] [address] [place] [address], [place] [address] Jul, [facility] [address] [id number] [address] [place] [address], [place] [address] Jul, [facility] [address] [id number] [address] [place] [address], [place] [address] Jul, [facility] [address] [id number] [address] [place] [address], [place] [address] Jul, [facility] [address] [id number] [address] [place] [address], [place] [address] Jun, [facility] [address] [id number] [address] [place] [address], [place] [address] Jun, [facility] [address] [id number] [address] [place] [address], [place] [address] Jun, [facility] [address] [id number] [address] [place] [address], [place] [address] Jun, [facility] [address] [id number] [address] [place] [address], [place] [address] Jun, [facility] [address] [id number] [address] [place] [address], [place] [address] Jun, [facility] [address] [id number] [address] [place] [address], [place] [address] Jun, [facility] [address] [id number] [address] [place] [address], [place] [address] Jun, [facility] [address] [id number] [address] [place] [address], [place] [address] Jun, [facility] [address] [id number] [address] [place] [address], [place] [address] May, [facility] [address] [id number] [address] [place] [address], [place] [address] May, [facility] [address] [id number] [address] [place] [address], [place] [address] Apr, [facility] [address] [id number] [address] [place] [address], [place] [address] Apr, [facility] [address] [id number] [address] [place] [address], [place] [address] Apr, [facility] [address] [id number] [address] [place] [address], [place] [address] Apr, [facility] [address] [id number] [address] [place] [address], [place] [address] Apr, [facility] [address] [id number] [address] [place] [address], [place] [address] Apr, [facility] [address] [id number] [address] [place] [address], [place] [address] Apr, [facility] [address] [id number] [address] [place] [address], [place] [address] Apr, [facility] [address] [id number] [address] [place] [address], [place] [address] Apr, [facility] [address] [id number] [address] [place] [address], [place] [address] Apr, [facility] [address] [id number] [address] [place] [address], [place] [address] Mar, [facility] [address] [id number] [address] [place] [address], [place] [address] Mar, [facility] [address] [id number] [address] [place] [address], [place] [address] Mar, [facility] [address] [id number] [address] [place] [address], [place] [address] Mar, [facility] [address] [id number] [address] [place] [address], [place] [address] Mar, [facility] [address] [id number] [address] [place] [address], [place] [address] Mar, [facility] [address] [id number] [address] [place] [address], [place] [address] Feb, [facility] [address] [id number] [address] [place] [address], [place] [address] Feb, [facility] [address] [id number] [address] [place] [address], [place] [address] Feb, [facility] [address] [id number] [address] [place] [address], [place] [address] Feb, [facility] [address] [id number] [address] [place] [address], [place] [address] Jan, [facility] [address] [id number] [address] [place] [address], [place] [address] Jan, [facility] [address] [id number] [address] [place] [address], [place] [address] Jan, [facility] [address] [id number] [address] [place] [address], [place] [address] Jan, [facility] [address] [id number] [address] [place] [address], [place] [address] Oct, [facility] [address] [id number] [address] [place] [address], [place] [address] Oct, [facility] [address] [id number] [address] [place] [address], [place] [address] Sep, [facility] [address] [id number] [address] [place] [address], [place] [address] Sep, [facility] [address] [id number] [address] [place] [address], [place] [address] 06 Sep, 2013 [facility] [address] [id number] [address] [place] [address], [place] [address] Sep, [facility] [address] [id number] [address] [place] [address], [place] [address] Aug, [facility] [address] [id number] [address] [place] [address], [place] [address] Aug, [facility] [address] [id number] [address] [place] [address], [place] [address] Aug, [facility] [address] [id number] [address] [place] [address], [place] [address] Aug, [facility] [address] [id number] [address] [place] [address], [place] [address] Jul, [facility] [address] [id number] [address] [place] [address], [place] [address] Jul, [facility] [address] [id number] [address] [place] [address], [place] [address] Jul, [facility] [address] [id number] [address] [place] [address], [place] [address] Jul, [facility] [address] [id number] [address] [place] [address], [place] [address] Jul, [facility] [address] [id number] [address] [place] [address], [place] [address] Jul, [facility] [address] [id number] [address] [place] [address], [place] [address] Jun, [facility] [address] [id number] [address] [place] [address], [place] [address] Jun, [facility] [address] [id number] [address] [place] [address], [place] [address] Jun, [facility] [address] [id number] [address] [place] [address], [place] [address] Jun, [facility] [address] [id number] [address] [place] [address], [place] [address] Jun, [facility] [address] [id number] [address] [place] [address], [place] [address] Jun, [facility] [address] [id number] [address] [place] [address], [place] [address] May, [facility] [address] [id number] [address] [place] [address], [place] [address] May, [facility] [address] [id number] [address] [place] [address], [place] [address] May, [facility] [address] [id number] [address] [place] [address], [place] [address] May, [facility] [address] [id number] [address] [place] [address], [place] [address] May, [facility] [address] [id number] [address] [place] [address], [place] [address] May, [facility] [address] [id number] [address] [place] [address], [place] [address] May, [facility] [address] [id number] [address] [place] [address], [place] [address] May, [facility] [address] [id number] [address] [place] [address], [place] [address] Apr, [facility] [address] [id number] [address] [place] [address], [place] [address] Apr, [facility] [address] [id number] [address] [place] [address], [place] [address] Mar, [facility] [address] [id number] [address] [place] [address], [place] [address] Mar, [facility] [address] [id number] [address] [place] [address], [place] [address] Mar, [facility] [address] [id number] [address] [place] [address], [place] [address] Mar, [facility] [address] [id number] [address] [place] [address], [place] [address] Feb, [facility] [address] [id number] [address] [place] [address], [place] [address] Jan, [facility] [address] [id number] [address] [place] [address], [place] [address] December, [facility] [address] [id number] [address] [place] [address], [place] [address] December, [facility] [address] [id number] [address] [place] [address], [place] [address] December, [facility] [address] [id number] [address] [place] [address], [place] [address] Nov, [facility] [address] [id number] [address] [place] [address], [place] [address] Nov, [facility] [address] [id number] [address] [place] [address], [place] [address] 14 Sep, 2012 [facility] [address] [id number] [address] [place] [address], [place] [address] 14 Sep, 2012 [facility] [address] [id number] [address] [place] [address], [place] [address] 14 Sep, 2012 [facility] [address] [id number] [address] [place] [address], [place] [address] Sep, [facility] [address] [id number] [address] [place] [address], [place] [address] Aug, [facility] [address] [id number] [address] [place] [address], [place] [address] Aug, [facility] [address] [id number] [address] [place] [address], [place] [address] Aug, [facility] [address] [id number] [address] [place] [address], [place] [address] Aug, [facility] [address] [id number] [address] [place] [address], [place] [address] Jul, [facility] [address] [id number] [address] [place] [address], [place] [address] Jul, [facility] [address] [id number] [address] [place] [address], [place] [address] Jul, [facility] [address] [id number] [address] [place] [address], [place] [address] Jul, [facility] [address] [id number] [address] [place] [address], [place] [address] Jun, [facility] [address] [id number] [address] [place] [address], [place] [address] Jun, [facility] [address] [id number] [address] [place] [address], [place] [address] Jun, [facility] [address] [id number] [address] [place] [address], [place] [address] Jun, [facility] [address] [id number] [address] [place] [address], [place] [address] May, [facility] [address] [id number] [address] [place] [address] May, [facility] [address] [id number] [address] [place] [address] May, [facility] [address] [id number] [address] [place] [address] May, [facility] [address] [id number] [address] [place] [address], [place] [address] May, [facility] [address] [id number] [address] [place] [address], [place] [address] Apr, [facility] [address] [id number] [address] [place] [address] 08 Apr, 2012 [facility] [address] [id number] [address] [place] [address] 07 Apr, 2012 [facility] [address] [id number] [address] [place] [address], [place] [address] Apr, [facility] [address] [id number] [address] [place] [address], [place] [address] Mar, [facility] [address] [id number] [address] [place] [address], [place] [address] Mar, [facility] [address] [id number] [address] [place] [address], [place] [address] Feb, [facility] [address] [id number] [address] [place] [address], [place] [address] Feb, [facility] [address] [id number] [address] [place] [address], [place] [address] Feb, [facility] [address] [id number] [address] [place] [address], [place] [address] Jan, [facility] [address] [id number] [address] [place] [address], [place] [address] Jan, [facility] [address] [id number] [address] [place] [address], [place] [address] December, [facility] [address] [id number] [address] [place] [address], [place] [address] December, [facility] [address] [id number] [address] [place] [address], [place] [address] Nov, [facility] [address] [id number] [address] [place] [address], [place] [address] Oct, [facility] [address] [id number] [address] [place] [address], [place] [address] Oct, [facility] [address] [id number] [address] [place] [address], [place] [address] Sep, [facility] [address] [id number] [address] [place] [address], [place] [address] Sep, [facility] [address] [id number] [address] [place] [address], [place] [address] Aug, [facility] [address] [id number] [address] [place] [address], [place] [address] Aug, [facility] [address] [id number] [address] [place] [address], [place] [address] Jul, [facility] [address] [id number] [address] [place] [address], [place] [address] Jul, [facility] [address] [id number] [address] [place] [address], [place] [address] Jul, [facility] [address] [id number] [address] [place] [address], [place] [address] Jun, [facility] [address] [id number] [address] [place] [address], [place] [address] Jun, [facility] [address] [id number] [address] [place] [address], [place] [address] 13 May, 2011 [facility] [address] [id number] [address] [place] [address], [place] [address] May, [facility] [address] [id number] [address] [place] [address], [place] [address] May, [facility] [address] [id number] [address] [place] [address], [place] [address] 09 Jul, 2010 [facility] [address] [id number] [address] [place] [address], [place] [address] 08 Jul, 2010 [facility] [address] [id number] [address] [place] [address], [place] [address] 15 Jun, 2010 [facility] [address] [id number] [address] [place] [address], [place] [address] May, [facility] [address] [id number] [address] [place] [address], [place] [address] 26 May, 2010 [facility] [address] [id number] [address] [place] [address], [place] [address] Aug, [facility] [address] [id number] [address] [place] [address] Jul, [facility] [address] [id number] [address] [place] [address] Jun, [facility] [address] [id number] [address] [place] [address] Jun, [facility] [address] [id number] [address] [place] [address] Jun, [facility] [address] [id number] [address] [place] [address] Jun, [facility] [address] [id number] [address] [place] [address] Jun, [facility] [address] [id number] [address] [place] [address] May, [facility] [address] [id number] [address] [place] [address] Sep, IMMUNIZATIONS No Known Immunizations SOCIAL HISTORY Never Assessed REASON FOR VISIT Diabetes, wants to find out if insurance will cover help in home [facility]go[facility] PLAN OF CARE Activity Details Follow Up 3 Months Reason:DM VITAL SIGNS Height 64 in 2018-05-12 Weight 274.1 lbs 2018-05-12 Temperature 98.2 degrees Fahrenheit 2018-05-12 Heart Rate 82 bpm 2018-05-12 Respiratory Rate 20 2018-05-12 BMI 47.04 kg/m2 2018-05-12 Blood pressure systolic 128 mmHg 2018-05-12 Blood pressure diastolic 84 mmHg 2018-05-12 MEDICATIONS Medication Instructions Dosage Frequency Start Date End Date Duration S tatus Lisinopril 40 MG Orally Once a day 1 tablet 24h 90 d ays Active Accu-Chek Active ... .... 12h Nov, Active Ventolin HFA 108 (90 Base) MCG/ACT Inhalation every 4 hrs 2 puffs a s needed 4h Active Lipitor 20 MG Orally Once a day 1 tablet 24h 90 days Active Tramadol HCl 50 mg Orally 2 times a day 2 tablets 12h Jul, 28 days Active Januvia 100 MG Orally Once a day 1 tablet 24h 90 day s Active Furosemide 40 mg Orally Once a day 1 tablet 24h 30 d ays Active Levothyroxine Sodium 175 MCG Orally Once a day 1 tablet on an empty stomach in the morning 24h 30 days Active Walker N/A as directed Jul, Not- Taking Norvasc 5 TAKE ONE TABLET BY MOUTH DAILY 90 Not-Taking Potassium Chloride Faiza ER 10 MEQ Orally Once a day 1 tablet 24h 90 days Active Warfarin Sodium 3 MG Orally Once a day 1 tablet 24h May, 30 day(s) Active Nexium 40 MG Orally Once a day 1 capsule 24h Oct, 90 days Active Amlodipine Besylate 5 MG Orally Once a day 1 tablet 24h 90 days Active RESULTS Name Result Date Reference Range A1C (IN HOUSE) 2018-05-12 A1C IN HOUSE 7.3 4.3 - 5.6 % Previous A1c 7.0 Lot [id number] Exp date 10/2019 INR (IN HOUSE) 2018-05-12 INR 4.5 1.10 - 3.30 PREVIOUS INR 4.6 CURRENT COUMADIN DOSE 5 mg qd NEW COUMADIN DOSE Lot # [id number] Exp date 06/09/2018 PROCEDURES Procedure Date Ordered Result Body Site GLYCATED HEMOGLOBIN TEST May 12, 2018 PROTHROMBIN TIME May 12, 2018 [facility] VISIT ESTABLISHED PATIENT May 12, 2018 INSTRUCTIONS MEDICATIONS ADMINISTERED No Known Medications [...]
--- OUTSIDE RECORDS SUMMARY | 2020-01-28 14:38 | XMS REPORT ---
Author Author Katarina RODRIGUEZ Organization [facility] Address [address] [place] [address] Care Team Providers Care Admissions Specialist Name Role Phone GEORGINA RODRIGUEZ Unavailable PROBLEMS Type Condition ICD9-CM Code WPB28-BN Code Onset Dates Condition S tatus SNOMED Code Problem History of cataract surgery Z98.49 Ac tive 550808492 Problem correction (current) use of anticoagulants Z79.01 Active 025012952 Problem Urinary incontinence, unspecified type R32 Active 075117197 Problem Other chronic pain G89.29 Active 8 8859242 Problem Chronic atrial fibrillation I48.2 Ac tive 039115284 Problem Irregular heart beats I49.9 Active 189259152 Problem Morbid obesity, unspecified obesity type E66.01 Active 904271690 Problem Essential hypertension I10 Active 26164807 Problem Other urinary incontinence N39.498 Act essie 627839808 Problem Chronic obstructive pulmonary disease, unspecified COPD ty pe J44.9 Active 78642045 Problem Acquired hypothyroidism E03.9 Active 077313793 Problem High risk medication use Z79.899 Activ e 836788005 Problem Osteoarthritis M19.90 Active 43918 5006 Problem Diabetes E11.9 Active 176321667 Problem Cigarette nicotine dependence without complication F17.210 Active 24147079 Problem Encounter for immunization Z23 Act essie [id number] ALLERGIES No Information ENCOUNTERS Encounter Location Date Diagnosis [facility] [address] [facility] [id number] [address] [place] [address] Jun, Osteoarthritis M19.90 [facility] [address] [facility] [id number] [address] [place] [address] May, Encounter for immunization Z 23 [facility] [address] 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 [address] [id number] [address] [place] [address] May, Osteoarthritis M19.90 [facility] [address] [id number] [address] [place] [address] May, [facility] [address] [facility] [id number] [address] [place] [address] May, Diabetes E11.9 ; correction ( current) use of anticoagulants Z79.01 ; Chronic atrial fibrillation I48.2 ; BMI 45.0-49.9, adult Z68.42 ; Osteoarthritis M19.90 ; Low back pain M54.5 and Other chronic pain G89.29 [facility] [address] [id number] [address] [place] [address] 20 Apr, 2018 Chronic atrial fibrillation I48.2 [facility] [address] 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 [address] [id number] [address] [place] [phone] 07 Apr, [address] 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 [address] [id number] [address] [place] [address] Mar, Osteoarthritis M19.90 [facility] [address] [id number] [address] [place] [address] Feb, Osteoarthritis M19.90 [facility] [address] [id number] [address] [place] [address] Jan, Osteoarthritis M19.90 [facility] [address] [facility] [id number] [address] [place] [address] December, [facility] [address] [address] December, Osteoarthritis M19.90 [facility] [address] [place] [id number] [place] [address] Nov, Diabetes E11.9 ; correction ( current) use of anticoagulants Z79.01 ; Acquired hypothyroidism E03.9 ; Cigarette nicotine dependence without complication F17.210 ; Osteoarthritis M19.90 ; BMI 45.0-49.9, adult Z68.42 and Chronic atrial fibrillation I48.2 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 [address] [place] [id number] [address] [place] [address] Sep, Osteoarthritis M19.90 [facility] [address] [place] [id number] [place] [address] Sep, [facility] [address] [address] Aug, Osteoarthritis M19.90 [place] [address] [place] [id number] [address] [place] [address] Jul, Osteoarthritis M19.90 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 [address] [id number] [address] [place] [address] May, Osteoarthritis M19.90 [facility] [address] [id number] [address] [place] [address] Apr, Osteoarthritis M19.90 [facility] [address] [id number] [address] [place] [address] Mar, Chronic atrial fibrillation I48.2 [facility] [address] [id number] [address] [place] [address] Mar, [place] [address] [id number] [address] [place] [address] Mar, Osteoarthritis M19.90 [facility] [address] 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 [address] [id number] [address] [place] [address] Mar, Chronic atrial fibrillation I48.2 and correction (current) use of anticoagulants Z79.01 [place] [address] [id number] [address] [place] [address] Mar, correction (current) use of a nticoagulants Z79.01 [place] [address] [id number] [address] [place] [address] Mar, correction (current) use of a nticoagulants Z79.01 [place] [address] [id number] [address] [place] [address] Mar, Osteoarthritis M19.90 [facility] [address] [id number] [address] [place] [address] Feb, Encounter for screening mamm ogram for malignant neoplasm of breast Z12.31 [facility] [address] [id number] [address] [place] [address] Feb, Osteoarthritis M19.90 [facility] [address] [id number] [address] [place] [address] Jan, 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 [address] [id number] [address] [place] [address] Jan, Osteoarthritis M19.90 [facility] [address] [id number] [address] [place] [address] Jan, Osteoarthritis M19.90 [facility] [address] [id number] [address] [place] [address] Jan, [facility] [address] [id number] [address] [place] [address] December, Osteoarthritis M19.90 [facility] [address] [id number] [address] [place] [address] December, Osteoarthritis M19.90 [facility] [id number] [place] [id number] Nov, [facility] [address] [id number] [address] [place] [address] Nov, [facility] [address] [id number] [address] [place] [address] Nov, [facility] [address] [id number] [address] [place] [address] Nov, Diabetes E11.9 [facility] [address] [id number] [address] [place] [address] Nov, [facility] [address] [id number] [address] [place] [address] Oct, Osteoarthritis M19.90 [facility] [address] [facility] [id number] [address] [place] [address] Oct, Osteoarthritis M19.90 ; correction (current) use of anticoagulants Z79.01 ; Diabetes E11.9 ; Cigarette nicotine dependence without complication F17.210 and Chronic atrial fibrillation I48.2 [facility] [address] [place] [id number] [address] [place] [address] Aug, [facility] [address] 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 [address] [facility] [id number] [address] [place] [address] Aug, [facility] [address] [id number] [id number] Aug, [facility] [address] [place] [id number] [address] [place] [address] Aug, [facility] [address] [facility] [id number] [address] [place] [phone] Aug, [facility] [address] [place] [id number] [place] [id number] Aug, [employer] [address] [place] [id number] Aug Osteoarthritis M19.90 and Essential hypertension I10 [facility] [address] [facility] [id number] [address] [place] [address] Aug, Other urinary incontinence N 39.498 [facility] [address] [facility] [id number] [address] [place] [address] Jul, Osteoarthritis M19.90 [place] [address] [facility] [id number] [address] [place] [address] Jun, Diabetes E11.9 ; Encounter f or immunization Z23 ; Osteoarthritis M19.90 ; correction (current) use of anticoagulants Z79.01 ; Cigarette nicotine dependence without complication F17.210 ; Acquired hypothyroidism E03.9 ; Morbid obesity, unspecified obesity type E66.01 and Irregular heart beats I49.9 [facility] [address] [id number] [address] [place] [address] Jun, Osteoarthritis M19.90 [facility] [address] [facility] [id number] [address] [place] [address] May, Osteoarthritis M19.90 [facility] [address] [facility] [id number] [address] [place] [address] May, Urinary incontinence, unspec ified type R32 [facility] [address] [facility] [id number] [address] [place] [address] May, [facility] [address] [facility] [id number] [address] [place] [address] Apr, Osteoarthritis M19.90 [facility] [address] [facility] [id number] [address] [place] [address] Apr, correction (current) use of a nticoagulants Z79.01 [facility] [address] [facility] [id number] [address] [place] [phone] Apr, [facility] [address] [facility] [id number] [address] [place] [address] Apr, Osteoarthritis M19.90 [facility] [address] [facility] [id number] [address] [place] [address] Mar, Diabetes E11.9 ; Hypothyroid ism, unspecified type E03.9 ; Osteoarthritis M19.90 ; High risk medication use Z79.899 ; Cigarette nicotine dependence without complication F17.210 and Morbid obesity, unspecified obesity type E66.01 [facility] [address] [facility] [id number] [address] [place] [address] Mar, Osteoarthritis M19.90 [facility] [address] [facility] [id number] [address] [place] [address] December, Osteoarthritis M19.90 [facility] [address] [facility] [id number] [address] [place] [phone] December, [facility] [address] [facility] [id number] [address] [place] [phone] Oct, [facility] [address] [facility] [id number] [address] [place] [phone] Oct, [facility] [address] [facility] [id number] [address] [place] [phone] Aug, [facility] [address] [facility] [id number] [address] [place] [phone] Jul, [facility] [address] [facility] [id number] [address] [place] [address] Jul, [facility] [address] [facility] [id number] [address] [place] [address] Jul, Diabetes E11.9 ; Encounter f or immunization Z23 ; Abnormal mammogram R92.8 ; Acquired hypothyroidism E03.9 ; High risk medication use Z79.899 ; Osteoarthritis M19.90 and Cigarette nicotine dependence without complication F17.210 [facility] [address] [facility] [id number] [address] [place] [phone] Jul, [facility] [address] [facility] [id number] [address] [place] [address] Jun, Abnormal mammogram R92.8 [facility] [address] [facility] [id number] [address] [place] [phone] Apr, [facility] [address] [facility] [id number] [address] [place] [phone] Apr, [facility] [address] [facility] [id number] [address] [place] [phone] Mar, [facility] [address] [facility] [id number] [address] [place] [phone] Mar, Current use of fpc ant 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 V58.61 [facility] [address] [facility] [id number] [address] [place] [phone] Feb, [facility] [address] [id number] [address] [place] [address], [place] [address] Jan, [facility] [address] [id number] [address] [place] [address], [place] [address] December, [facility] [address] [id number] [address] [place] [address], [place] [address] Nov, [facility] [address] [id number] [address] [place] [address], [place] [address] Nov, [facility] [address] [id number] [address] [place] [address], [place] [address] Oct, [facility] [address] [id number] [address] [place] [address], [place] [address] Oct, [facility] [address] [id number] [address] [place] [address], [place] [address] Oct, [facility] [address] [id number] [address] [place] [address], [place] [address] Oct, [facility] [address] [id number] [address] [place] [address], [place] [address] Oct, [facility] [address] [id number] [address] [place] [address], [place] [address] Oct, [facility] [address] [id number] [address] [place] [address], [place] [address] Sep, [facility] [address] [id number] [address] [place] [address], [place] [address] Sep, [facility] [address] [id number] [address] [place] [address], [place] [address] Sep, [facility] [address] [id number] [address] [place] [address], [place] [address] Sep, [facility] [address] [id number] [address] [place] [address], [place] [address] Aug, [facility] [address] [id number] [address] [place] [address], [place] [address] Aug, [facility] [address] [id number] [address] [place] [address], [place] [address] Aug, [facility] [address] [id number] [address] [place] [address], [place] [address] Aug, [facility] [address] [id number] [address] [place] [address], [place] [address] Aug, [facility] [address] [id number] [address] [place] [address], [place] [address] Aug, [facility] [address] [id number] [address] [place] [address], [place] [address] Jul, [facility] [address] [id number] [address] [place] [address], [place] [address] Jul, [facility] [address] [id number] [address] [place] [address], [place] [address] Jul, [facility] [address] [id number] [address] [place] [address], [place] [address] Jul, [facility] [address] [id number] [address] [place] [address], [place] [address] Jul, [facility] [address] [id number] [address] [place] [address], [place] [address] Jul, [facility] [address] [id number] [address] [place] [address], [place] [address] Jun, [facility] [address] [id number] [address] [place] [address], [place] [address] Jun, [facility] [address] [id number] [address] [place] [address], [place] [address] Jun, [facility] [address] [id number] [address] [place] [address], [place] [address] Jun, [facility] [address] [id number] [address] [place] [address], [place] [address] Jun, [facility] [address] [id number] [address] [place] [address], [place] [address] Jun, [facility] [address] [id number] [address] [place] [address], [place] [address] Jun, [facility] [address] [id number] [address] [place] [address], [place] [address] Jun, [facility] [address] [id number] [address] [place] [address], [place] [address] Jun, [facility] [address] [id number] [address] [place] [address], [place] [address] May, [facility] [address] [id number] [address] [place] [address], [place] [address] May, [facility] [address] [id number] [address] [place] [address], [place] [address] Apr, [facility] [address] [id number] [address] [place] [address], [place] [address] Apr, [facility] [address] [id number] [address] [place] [address], [place] [address] Apr, [facility] [address] [id number] [address] [place] [address], [place] [address] Apr, [facility] [address] [id number] [address] [place] [address], [place] [address] Apr, [facility] [address] [id number] [address] [place] [address], [place] [address] Apr, [facility] [address] [id number] [address] [place] [address], [place] [address] Apr, [facility] [address] [id number] [address] [place] [address], [place] [address] Apr, [facility] [address] [id number] [address] [place] [address], [place] [address] 03 Apr, 2014 [facility] [address] [id number] [address] [place] [address], [place] [address] Apr, [facility] [address] [id number] [address] [place] [address], [place] [address] Mar, [facility] [address] [id number] [address] [place] [address], [place] [address] Mar, [facility] [address] [id number] [address] [place] [address], [place] [address] Mar, [facility] [address] [id number] [address] [place] [address], [place] [address] Mar, [facility] [address] [id number] [address] [place] [address], [place] [address] Mar, [facility] [address] [id number] [address] [place] [address], [place] [address] Mar, [facility] [address] [id number] [address] [place] [address], [place] [address] Feb, [facility] [address] [id number] [address] [place] [address], [place] [address] Feb, [facility] [address] [id number] [address] [place] [address], [place] [address] Feb, [facility] [address] [id number] [address] [place] [address], [place] [address] Feb, [facility] [address] [id number] [address] [place] [address], [place] [address] Jan, [facility] [address] [id number] [address] [place] [address], [place] [address] Jan, [facility] [address] [id number] [address] [place] [address], [place] [address] Jan, [facility] [address] [id number] [address] [place] [address], [place] [address] Jan, [facility] [address] [id number] [address] [place] [address], [place] [address] Oct, [facility] [address] [id number] [address] [place] [address], [place] [address] Oct, [facility] [address] [id number] [address] [place] [address], [place] [address] Sep, [facility] [address] [id number] [address] [place] [address], [place] [address] Sep, [facility] [address] [id number] [address] [place] [address], [place] [address] Sep, [facility] [address] [id number] [address] [place] [address], [place] [address] Sep, [facility] [address] [id number] [address] [place] [address], [place] [address] Aug, [facility] [address] [id number] [address] [place] [address], [place] [address] Aug, [facility] [address] [id number] [address] [place] [address], [place] [address] Aug, [facility] [address] [id number] [address] [place] [address], [place] [address] Aug, [facility] [address] [id number] [address] [place] [address], [place] [address] Jul, [facility] [address] [id number] [address] [place] [address], [place] [address] 30 Jul, 2013 [facility] [address] [id number] [address] [place] [address], [place] [address] 14 Jul, 2013 [facility] [address] [id number] [address] [place] [address], [place] [address] 14 Jul, 2013 [facility] [address] [id number] [address] [place] [address], [place] [address] 10 Jul, 2013 [facility] [address] [id number] [address] [place] [address], [place] [address] Jul, [facility] [address] [id number] [address] [place] [address] [address] Jun, [facility] [address] [id number] [address] [place] [address], [place] [address] Jun, [facility] [address] [id number] [address] [place] [address], [place] [address] Jun, [facility] [facility] [address] [id number] [address] [place] [address], [place] [address] Jun, [facility] [address] [id number] [address] [place] [address], [place] [address] Jun, [facility] [address] [id number] [address] [place] [address], [place] [address] Jun, [facility] [address] [id number] [address] [place] [address], [place] [address] May, [facility] [address] [id number] [address] [place] [address], [place] [address] May, [facility] [address] [id number] [address] [place] [address], [place] [address] May, [facility] [address] [id number] [address] [place] [address], [place] [address] May, [facility] [address] [id number] [address] [place] [address], [place] [address] May, [facility] [address] [id number] [address] [place] [address] May, [facility] [address] [id number] [address] [place] [address] May, [facility] [address] [id number] [address] [place] [address], [place] [address] May, [facility] [address] [id number] [address] [place] [phone] 30 Apr, 2013 [facility] [address] [id number] [address] [place] [address], [place] [address] Apr, [facility] [address] [id number] [address] [place] [address], [place] [address] 14 Mar, 2013 [facility] [address] [id number] [address] [place] [address], [place] [address] Mar, [facility] [address] [id number] [address] [place] [address], [place] [address] Mar, [facility] [address] [id number] [address] [place] [address], [place] [address] Mar, [facility] [address] [id number] [address] [place] [address], [place] [address] Feb, [facility] [address] [id number] [address] [place] [address], [place] [address] Jan, [facility] [address] [id number] [address] [place] [address], [place] [address] December, [facility] [address] [id number] [address] [place] [address], [place] [address] December, [facility] [address] [id number] [address] [place] [address], [place] [address] December, [facility] [address] [id number] [address] [place] [address], [place] [address] Nov, [facility] [address] [id number] [address] [place] [address], [place] [address] Nov, [facility] [address] [id number] [address] [place] [address], [place] [address] 14 Sep, 2012 [facility] [address] [id number] [address] [place] [address], [place] [address] 14 Sep, 2012 [facility] [address] [id number] [address] [place] [address], [place] [address] 14 Sep, 2012 [facility] [address] [id number] [address] [place] [address], [place] [address] Sep, [facility] [address] [id number] [address] [place] [address], [place] [address] Aug, [facility] [address] [id number] [address] [place] [address], [place] [address] Aug, [facility] [address] [id number] [address] [place] [address], [place] [address] Aug, [facility] [address] [id number] [address] [place] [address], [place] [address] Aug, [facility] [address] [id number] [address] [place] [address], [place] [address] Jul, [facility] [address] [id number] [address] [place] [address], [place] [address] Jul, [facility] [address] [id number] [address] [place] [address], [place] [address] Jul, [facility] [address] [id number] [address] [place] [address], [place] [address] Jul, [facility] [address] [id number] [address] [place] [address] Jun, [facility] [address] [id number] [address] [place] [address], [place] [address] Jun, [facility] [address] [id number] [address] [place] [address] Jun, [facility] [address] [id number] [address] [place] [phone] Jun, [facility] [address] [id number] [address] [place] [address] May, [facility] [address] [id number] [address] [place] [address], [place] [address] May, [facility] [address] [id number] [address] [place] [address], [place] [address] May, [facility] [address] [id number] [address] [place] [phone] May, [facility] [address] [id number] [address] [place] [id number] 08 May, 2012 [facility] [address] [id number] [address] [place] [address], [place] [address] 10 Apr, 2012 [facility] [address] [id number] [address] [place] [address], [place] [address] 08 Apr, 2012 [facility] [address] [id number] [address] [place] [address], [place] [address] 07 Apr, 2012 [facility] [address] [id number] [address] [place] [address], [place] [address] 06 Apr, 2012 [facility] [address] [id number] [address] [place] [address], [place] [address] Mar, [facility] [address] [id number] [address] [place] [address], [place] [address] Mar, [facility] [address] [id number] [address] [place] [address], [place] [address] Feb, [facility] [address] [id number] [address] [place] [address], [place] [address] Feb, [facility] [address] [id number] [address] [place] [address], [place] [address] Feb, [facility] [address] [id number] [address] [place] [address], [place] [address] Jan, [facility] [address] [id number] [address] [place] [address], [place] [address] Jan, [facility] [address] [id number] [address] [place] [address], [place] [address] December, [facility] [address] [id number] [address] [place] [address], [place] [address] December, [facility] [address] [id number] [address] [place] [address], [place] [address] Nov, [facility] [address] [id number] [address] [place] [address], [place] [address] Oct, [facility] [address] [id number] [address] [place] [address], [place] [address] Oct, [facility] [address] [id number] [address] [place] [address], [place] [address] Sep, [facility] [address] [id number] [address] [place] [address], [place] [address] Sep, [facility] [address] [id number] [address] [place] [address], [place] [address] Aug, [facility] [address] [id number] [address] [place] [address], [place] [address] Aug, [facility] [address] [id number] [address] [place] [address], [place] [address] Jul, [facility] [address] [id number] [address] [place] [address], [place] [address] Jul, [facility] [address] [id number] [address] [place] [address], [place] [address] Jul, [facility] [address] [id number] [address] [place] [address], [place] [address] Jun, [facility] [address] [id number] [address] [place] [address], [place] [address] Jun, [facility] [address] [id number] [address] [place] [address], [place] [address] May, [facility] [address] [id number] [address] [place] [address], [place] [address] May, [facility] [address] [id number] [address] [place] [address], [place] [address] May, [facility] [address] [id number] [address] [place] [address], [place] [address] Jul, [facility] [address] [id number] [address] [place] [address], [place] [address] Jul, [facility] [address] [id number] [address] [place] [address], [place] [address] Jun, [facility] [address] [id number] [address] [place] [address] May, [facility] [address] [id number] [address] [place] [address] May, [facility] [address] [id number] [address] [place] [address] Aug, [facility] [address] [id number] [address] [place] [address] Jul, [facility] [address] [id number] [address] [place] [address] Jun, [facility] [address] [id number] [address] [place] [address] Jun, [facility] [address] [id number] [address] [place] [address] Jun, [facility] [address] [id number] [address] [place] [address] Jun, [facility] [address] [id number] [address] [place] [address] Jun, [facility] [address] [id number] [address] [place] [address] May, [facility] [address] [id number] [address] [place] [address] Sep, IMMUNIZATIONS No Known Immunizations SOCIAL HISTORY Never Assessed REASON FOR VISIT Controlled Med Refill 06/14/18 PLAN OF CARE VITAL SIGNS MEDICATIONS Medication [...]
--- OUTSIDE RECORDS SUMMARY | 2020-01-28 14:39 | XMS REPORT ---
Author Author Katarina RODRIGUEZ Organization [facility] Address [address] [place] [address] Care Team Providers Care Finisher Polisher Name Role Phone GEORGINA RODRIGUEZ Unavailable PROBLEMS Type Condition ICD9-CM Code BFN25-IF Code Onset Dates Condition S tatus SNOMED Code Problem Encounter for immunization Z23 Act essie 450552041 Problem Urinary incontinence, unspecified type R32 Active 749260518 Problem History of cataract surgery Z98.49 Ac tive 497351946 Problem Chronic atrial fibrillation I48.2 Ac tive 311981160 Problem Essential hypertension I10 Active 52889987 Problem Morbid obesity, unspecified obesity type E66.01 Active 058972565 Problem [facility] (current) use of anticoagulants Z79.01 Active 501159693 Problem Other urinary incontinence N39.498 Act essie 963793362 Problem Irregular heart beats I49.9 Active 507280507 Problem Eye exam normal Z01.00 Active 2438 43072 Problem Cigarette nicotine dependence without complication F17.210 Active 06783034 Problem Acquired hypothyroidism E03.9 Active 399965888 Problem Abnormal mammogram R92.8 Active 1 60870078 Problem High risk medication use Z79.899 Activ e 854963371 Problem Osteoarthritis M19.90 Active 51334 5006 Problem Diabetes E11.9 Active 477785986 ALLERGIES No Information ENCOUNTERS Encounter Location Date Diagnosis [facility] [address] [facility] [id number] [address] [place] [address] May, [facility] [address] [facility] [id number] [address] [place] [address] 20 Apr, 2018 Chronic atrial fibrillation I48.2 [facility] [address] [facility] [id number] [address] [place] [address] 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, 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 [facility] [address] [facility] [id number] [address] [place] [address] 07 Apr, 2018 Osteoarthritis M19.90 [facility] [address] [facility] [id number] [address] [place] [address] 04 Apr, 2018 [facility] (current) use of a nticoagulants Z79.01 and Chronic atrial fibrillation I48.2 [facility] [address] [facility] [id number] [address] [place] [address] Mar, Osteoarthritis M19.90 [facility] [address] [facility] [id number] [address] [place] [address] Feb, Osteoarthritis M19.90 [facility] [address] [facility] [id number] [address] [place] [address] Jan, Osteoarthritis M19.90 [facility] [address] [facility] [id number] [address] [place] [address] December, [facility] [address] [facility] [id number] [address] [place] [address] December, Osteoarthritis M19.90 [facility] [address] [facility] [id number] [address] [place] [address] Nov, Diabetes E11.9 ; 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 ; Acquired hypothyroidism E03.9 ; Cigarette nicotine dependence without complication F17.210 ; Osteoarthritis M19.90 ; BMI 45.0-49.9, adult Z68.42 and Chronic atrial fibrillation I48.2 [facility] [address] [facility] [id number] [address] [place] [address] Nov, Osteoarthritis M19.90 [facility] [address] [facility] [id number] [address] [place] [address] Oct, Osteoarthritis M19.90 [facility] [address] [facility] [id number] [address] [place] [address] Oct, [facility] (current) use of a nticoagulants Z79.01 [facility] [address] [facility] [id number] [address] [place] [address] Sep, Osteoarthritis M19.90 [facility] [address] [facility] [id number] [address] [place] [address] Sep, [facility] [address] [place] [id number] [address] [place] [address] Aug, Osteoarthritis M19.90 [facility] [address] [address] Jul, Osteoarthritis M19.90 [facility] [address] [address] Jul, Osteoarthritis M19.90 [facility] [address] [address] Jun, Diabetes E11.9 ; Encounter f or immunization Z23 ; [facility] (current) use of anticoagulants Z79.01 ; Chronic atrial fibrillation I48.2 ; Osteoarthritis M19.90 ; Tobacco abuse Z72.0 and Bug bite, initial encounter W57.XXXA [facility] [address] [address] May, Osteoarthritis M19.90 [facility] [address] [address] Apr, Osteoarthritis M19.90 [facility] [address] [address] Mar, Chronic atrial fibrillation I48.2 [facility] [address] [place] [id number] [address] [place] [address] Mar, [facility] [address] [place] [id number] [address] [place] [address] Mar, Osteoarthritis M19.90 [facility] [address] [place] [id number] [address] [place] [address] Mar, [facility] (current) use of a nticoagulants Z79.01 and Chronic atrial fibrillation I48.2 [facility] [address] [place] [id number] [address] [place] [address] Mar, Chronic atrial fibrillation I48.2 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 [facility] [address] [id number] [address] [place] [address] Mar, [facility] (current) use of a nticoagulants Z79.01 [facility] [address] [id number] [address] [place] [address] Mar, [facility] (current) use of a nticoagulants Z79.01 [facility] [address] [id number] [address] [place] [address] Mar, Osteoarthritis M19.90 [place] [address] [facility] [id number] [address] [place] [address] Feb, Encounter for screening mamm ogram for malignant neoplasm of breast Z12.31 [place] [address] [id number] [address] [place] [address] Feb, Osteoarthritis M19.90 [facility] [address] [id number] [address] [place] [address] Jan, [place] [address] [facility] [id number] [address] [place] [address] Jan, 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 ; Diabetes E11.9 ; Osteoarthritis M19.90 and Breast cancer screening Z12.39 [facility] [address] [id number] [address] [place] [address] Jan, Osteoarthritis M19.90 [facility] [address] [id number] [address] [place] [address] Jan, Osteoarthritis M19.90 [facility] [address] [facility] [id number] [address] [place] [address] Jan, [facility] [address] [facility] [id number] [address] [place] [address] December, Osteoarthritis M19.90 [facility] [address] [id number] [address] [place] [address] December, Osteoarthritis M19.90 [facility] [address] [id number] [place] [id number] Nov, [facility] [address] [id number] [address] [place] [address] Nov, [facility] [address] [id number] [address] [place] [address] Nov, [facility] [address] [id number] [address] [place] [address] Nov, Diabetes E11.9 [facility] [address] [id number] [address] [place] [address] Nov, [facility] [address] [id number] [address] [place] [address] Oct, Osteoarthritis M19.90 [facility] [address] [id number] [address] [place] [address] Oct, Osteoarthritis M19.90 ; 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 ; Diabetes E11.9 ; Cigarette nicotine dependence without complication F17.210 and Chronic atrial fibrillation I48.2 [facility] [address] [id number] [address] [place] [address] Aug, [facility] [address] [id number] [address] [place] [address] Aug, 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90 and Essential hypertension I10 [place] [address] [address] Aug, Other urinary incontinence N 39.498 [facility] [address] [place] [id number] [address] [place] [address] Jul, Osteoarthritis M19.90 [place] [address] [address] Jun, Diabetes E11.9 ; Encounter f or immunization Z23 ; Osteoarthritis M19.90 ; [facility] (current) use of anticoagulants Z79.01 ; Cigarette nicotine dependence without complication F17.210 ; Acquired hypothyroidism E03.9 ; Morbid obesity, unspecified obesity type E66.01 and Irregular heart beats I49.9 [facility] [address] [address] Jun, Osteoarthritis M19.90 [facility] [address] [address] May, Osteoarthritis M19.90 [facility] [address] [address] May, Urinary incontinence, unspec ified type R32 [facility] [address] [facility] [id number] [address] [place] [address] May, [facility] [address] [place] [id number] [address] [place] [address] Apr, Osteoarthritis M19.90 [facility] [address] [place] [id number] [address] [place] [address] Apr, [facility] (current) use of a nticoagulants Z79.01 [facility] [address] [facility] [id number] [address] [place] [address] Apr, [facility] [address] [facility] [id number] [address] [place] [address] Apr, Osteoarthritis M19.90 [facility] [address] [facility] [id number] [address] [place] [address] Mar, Diabetes E11.9 ; Hypothyroid ism, unspecified type E03.9 ; Osteoarthritis M19.90 ; High risk medication use Z79.899 ; Cigarette nicotine dependence without complication F17.210 and Morbid obesity, unspecified obesity type E66.01 [facility] [address] [facility] [id number] [address] [place] [address] Mar, Osteoarthritis M19.90 [facility] [address] [facility] [id number] [address] [place] [address] December, Osteoarthritis M19.90 [facility] [address] [facility] [id number] [address] [place] [address] December, [facility] [address] [facility] [id number] [address] [place] [address] Oct, [facility] [address] [facility] [id number] [address] [place] [address] Oct, [facility] [address] [facility] [id number] [address] [place] [address] Aug, [facility] [address] [facility] [id number] [address] [place] [address] Jul, [facility] [address] [facility] [id number] [address] [place] [address] Jul, [facility] [address] [facility] [id number] [address] [place] [address] Jul, Diabetes E11.9 ; Encounter f or immunization Z23 ; Abnormal mammogram R92.8 ; Acquired hypothyroidism E03.9 ; High risk medication use Z79.899 ; Osteoarthritis M19.90 and Cigarette nicotine dependence without complication F17.210 [facility] [address] [id number] [address] [place] [address] Jul, [facility] [address] [id number] [address] [place] [address] Jun, Abnormal mammogram R92.8 [facility] [address] [id number] [address] [place] [address] Apr, [facility] [address] [id number] [address] [place] [address] Apr, [facility] [address] [id number] [address] [place] [address] Mar, [facility] [address] [id number] [address] [place] [address] Mar, Current use of residential ant 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 V58.61 [facility] [address] [id number] [address] [place] [address] Feb, [facility] [address] [id number] [address] [place] [address] Jan, [facility] [address] [id number] [address] [place] [address] December, [facility] [address] [id number] [address] [place] [address] Nov, [facility] [address] [id number] [address] [place] [address] Nov, [facility] [address] [id number] [address] [place] [address] Oct, [facility] [address] [id number] [address] [place] [id number] Oct, [facility] [address] [id number] [address] [place] [address] Oct, [facility] [address] [id number] [address] [place] [address] Oct, [facility] [address] [id number] [address] [place] [address], [place] [address] Oct, [facility] [address] [id number] [address] [place] [address], [place] [address] Oct, [facility] [address] [id number] [address] [place] [address], [place] [address] Sep, [facility] [address] [id number] [address] [place] [address], [place] [address] Sep, [facility] [address] [id number] [address] [place] [address], [place] [address] Sep, [facility] [address] [id number] [address] [place] [address], [place] [address] Sep, [facility] [address] [id number] [address] [place] [address], [place] [address] Aug, [facility] [address] [id number] [address] [place] [address], [place] [address] Aug, [facility] [address] [id number] [address] [place] [address], [place] [address] Aug, [facility] [address] [id number] [address] [place] [address], [place] [address] Aug, [facility] [address] [id number] [address] [place] [address], [place] [address] Aug, [facility] [address] [id number] [address] [place] [address] Aug, [facility] [address] [id number] [address] [place] [address], [place] [address] Jul, [facility] [address] [id number] [address] [place] [address], [place] [address] Jul, [facility] [address] [id number] [address] [place] [address], [place] [address] Jul, [facility] [address] [id number] [address] [place] [address], [place] [address] Jul, [facility] [address] [id number] [address] [place] [address], [place] [address] Jul, [facility] [address] [id number] [address] [place] [address], [place] [address] Jul, [facility] [address] [id number] [address] [place] [address], [place] [address] Jun, [facility] [address] [id number] [address] [place] [address], [place] [address] Jun, [facility] [address] [id number] [address] [place] [address], [place] [address] Jun, [facility] [address] [id number] [address] [place] [address], [place] [address] Jun, [facility] [address] [id number] [address] [place] [address], [place] [address] Jun, [facility] [address] [id number] [address] [place] [address], [place] [address] Jun, [facility] [address] [id number] [address] [place] [address], [place] [address] Jun, [facility] [address] [id number] [address] [place] [address], [place] [address] Jun, [facility] [address] [id number] [address] [place] [address], [place] [address] Jun, [facility] [address] [id number] [address] [place] [address] May, [facility] [address] [id number] [address] [place] [address], [place] [address] May, [facility] [address] [id number] [address] [place] [address], [place] [address] Apr, [facility] [address] [id number] [address] [place] [address], [place] [address] Apr, [facility] [address] [id number] [facility] [place] [address] Apr, 2013 [facility] [address] [id number] [facility] [place] [address] Apr, 2013 [facility] [address] [id number] [facility] [place] [address] Apr, 2013 [facility] [address] [id number] [address] [place] [address], [place] [address] Apr, 2013 [facility] [address] [id number] [address] [place] [address], [place] [address] Apr, 2013 [facility] [address] [id number] [address] [place] [address], [place] [address] Apr, 2013 [facility] [address] [id number] [address] [place] [address], [place] [address] Apr, [facility] [address] [id number] [address] [place] [address], [place] [address] Apr, [facility] [address] [id number] [address] [place] [address], [place] [address] Mar, [facility] [address] [id number] [address] [place] [address], [place] [address] Mar, [facility] [address] [id number] [address] [place] [address], [place] [address] Mar, [facility] [address] [id number] [address] [place] [address], [place] [address] Mar, [facility] [address] [id number] [address] [place] [address], [place] [address] Mar, [facility] [address] [id number] [address] [place] [address], [place] [address] Mar, [facility] [address] [id number] [address] [place] [address], [place] [address] Feb, [facility] [address] [id number] [address] [place] [address], [place] [address] Feb, [facility] [address] [id number] [address] [place] [address], [place] [address] Feb, [facility] [address] [id number] [address] [place] [address], [place] [address] Feb, [facility] [address] [id number] [address] [place] [address], [place] [address] Jan, [facility] [address] [id number] [address] [place] [address], [place] [address] Jan, [facility] [address] [id number] [address] [place] [address], [place] [address] Jan, [facility] [address] [id number] [address] [place] [address], [place] [address] Jan, [facility] [address] [id number] [address] [place] [address], [place] [address] Oct, [facility] [address] [id number] [address] [place] [address], [place] [address] Oct, [facility] [address] [id number] [address] [place] [address], [place] [address] Sep, [facility] [address] [id number] [address] [place] [address], [place] [address] Sep, [facility] [address] [id number] [address] [place] [address], [place] [address] Sep, [facility] [address] [id number] [address] [place] [address], [place] [address] Sep, [facility] [address] [id number] [address] [place] [address], [place] [address] Aug, [facility] [address] [id number] [address] [place] [address], [place] [address] Aug, [facility] [address] [id number] [address] [place] [address], [place] [address] Aug, [facility] [address] [id number] [address] [place] [address], [place] [address] 15 Aug, 2013 [facility] [address] [id number] [address] [place] [address], [place] [address] 30 Jul, 2013 [facility] [address] [id number] [address] [place] [address], [place] [address] 30 Jul, 2013 [facility] [address] [id number] [address] [place] [address], [place] [address] Jul, [facility] [address] [id number] [address] [place] [address], [place] [address] Jul, [facility] [address] [id number] [address] [place] [address], [place] [address] Jul, [facility] [address] [id number] [address] [place] [address], [place] [address] Jul, [facility] [address] [id number] [address] [place] [address], [place] [address] Jun, [facility] [address] [id number] [address] [place] [address], [place] [address] Jun, [facility] [address] [id number] [address] [place] [address], [place] [address] Jun, [facility] [address] [id number] [address] [place] [address], [place] [address] Jun, [facility] [address] [id number] [address] [place] [address], [place] [address] Jun, [facility] [address] [id number] [address] [place] [address], [place] [address] Jun, [facility] [address] [id number] [address] [place] [address], [place] [address] May, [facility] [address] [id number] [address] [place] [address], [place] [address] May, [facility] [address] [id number] [address] [place] [address], [place] [address] May, [facility] [address] [id number] [address] [place] [address], [place] [address] May, [facility] [facility] [address] [id number] [address] [place] [address], [place] [address] May, [facility] [address] [id number] [address] [place] [address], [place] [address] May, [facility] [address] [id number] [address] [place] [address], [place] [address] May, [facility] [address] [id number] [address] [place] [address], [place] [address] May, [facility] [address] [id number] [address] [place] [address], [place] [address] Apr, [facility] [address] [id number] [address] [place] [address], [place] [address] Apr, [facility] [address] [id number] [address] [place] [address], [place] [address] Mar, [facility] [address] [id number] [address] [place] [address], [place] [address] Mar, [facility] [address] [id number] [address] [place] [address], [place] [address] Mar, [facility] [address] [id number] [address] [place] [address], [place] [address] Mar, [facility] [address] [id number] [address] [place] [address], [place] [address] Feb, [facility] [address] [id number] [address] [place] [address], [place] [address] Jan, [facility] [address] [id number] [address] [place] [address], [place] [address] December, [facility] [address] [id number] [address] [place] [address], [place] [address] December, [facility] [address] [id number] [address] [place] [address], [place] [address] December, [facility] [address] [id number] [address] [place] [address], [place] [address] Nov, [facility] [address] [id number] [address] [place] [address], [place] [address] Nov, [facility] [address] [id number] [address] [place] [address], [place] [address] 14 Sep, 2012 [facility] [address] [id number] [address] [place] [address], [place] [address] Sep, [facility] [address] [id number] [address] [place] [address], [place] [address] Sep, [facility] [address] [id number] [address] [place] [address], [place] [address] Sep, [facility] [address] [id number] [address] [place] [address], [place] [address] Aug, [facility] [address] [id number] [address] [place] [address], [place] [address] Aug, [facility] [address] [id number] [address] [place] [address], [place] [address] Aug, [facility] [address] [id number] [address] [place] [address], [place] [address] Aug, [facility] [address] [id number] [address] [place] [address], [place] [address] Jul, [facility] [address] [id number] [address] [place] [address], [place] [address] Jul, [facility] [address] [id number] [address] [place] [address], [place] [address] Jul, [facility] [address] [id number] [address] [place] [address], [place] [address] Jul, [facility] [address] [id number] [address] [place] [address], [place] [address] Jun, [facility] [address] [id number] [address] [place] [address], [place] [address] Jun, [facility] [address] [id number] [address] [place] [address], [place] [address] Jun, [facility] [address] [id number] [address] [place] [address], [place] [address] Jun, [facility] [address] [id number] [address] [place] [address], [place] [address] May, [facility] [address] [id number] [address] [place] [address], [place] [address] May, [facility] [address] [id number] [address] [place] [address], [place] [address] May, [facility] [address] [id number] [address] [place] [address], [place] [address] May, [facility] [address] [id number] [address] [place] [address], [place] [address] May, [facility] [address] [id number] [address] [place] [address], [place] [address] 10 Apr, 2012 [facility] [address] [id number] [address] [place] [address], [place] [address] 08 Apr, 2012 [facility] [address] [id number] [address] [place] [address], [place] [address] 07 Apr, 2012 [facility] [address] [id number] [address] [place] [address], [place] [address] 06 Apr, 2012 [facility] [address] [id number] [address] [place] [address], [place] [address] Mar, [facility] [address] [id number] [address] [place] [address], [place] [address] Mar, [facility] [address] [id number] [address] [place] [address], [place] [address] Feb, [facility] [address] [id number] [address] [place] [address] Feb, [facility] [address] [id number] [address] [place] [address], [place] [address] Feb, [facility] [address] [id number] [address] [place] [address], [place] [address] Jan, [facility] [address] [id number] [address] [place] [address], [place] [address] Jan, [facility] [address] [id number] [address] [place] [address], [place] [address] December, [facility] [address] [id number] [address] [place] [address], [place] [address] December, [facility] [address] [id number] [address] [place] [address], [place] [address] Nov, [facility] [address] [id number] [address] [place] [address], [place] [address] Oct, [facility] [address] [id number] [address] [place] [address], [place] [address] Oct, [facility] [address] [id number] [address] [place] [address], [place] [address] Sep, [facility] [address] [id number] [address] [place] [address], [place] [address] Sep, [facility] [address] [id number] [address] [place] [address], [place] [address] Aug, [facility] [address] [id number] [address] [place] [address], [place] [address] Aug, [facility] [address] [id number] [address] [place] [address], [place] [address] Jul, [facility] [address] [id number] [address] [place] [address], [place] [address] Jul, [facility] [address] [id number] [address] [place] [address], [place] [address] Jul, [facility] [address] [id number] [address] [place] [address], [place] [address] 07 Jun, 2011 [facility] [address] [id number] [address] [place] [address], [place] [address] 07 Jun, 2011 [facility] [address] [id number] [address] [place] [address], [place] [address] 13 May, 2011 [facility] [address] [id number] [address] [place] [address], [place] [address] 11 May, 2011 [facility] [address] [id number] [address] [place] [address], [place] [address] 11 May, 2011 [facility] [address] [id number] [address] [place] [address], [place] [address] 09 Jul, 2010 [facility] [address] [id number] [address] [place] [address], [place] [address] 08 Jul, 2010 [facility] [address] [id number] [address] [place] [address], [place] [address] 15 Jun, 2010 [facility] [address] [id number] [address] [place] [address], [place] [address] May, [facility] [address] [id number] [address] [place] [address], [place] [address] May, [facility] [address] [id number] [address] [place] [address], [place] [address] 14 Aug, 2009 [facility] [address] [id number] [address] [place] [address], [place] [address] Jul, [facility] [address] [id number] [address] [place] [address], [place] [address] Jun, [facility] [address] [id number] [address] [place] [address], [place] [address] Jun, [facility] [address] [id number] [address] [place] [address], [place] [address] Jun, [facility] [address] [id number] [address] [place] [address] [address] Jun, [facility] [address] [facility] [id number] [address] [place] [address] Jun, [facility] [address] [facility] [id number] [address] [place] [address] May, [facility] [address] [facility] [id number] [address] [place] [address] Sep, IMMUNIZATIONS No Known Immunizations SOCIAL HISTORY Never Assessed REASON FOR VISIT Refill request/Lab Order PLAN OF CARE VITAL SIGNS MEDICATIONS Medication Instructions Dosage Frequency Start Date End Date Duration S tatus Coumadin 5 mg Orally Once a day (MUST HAVE LAB DRAWN) 1 tablet on M,W ,F,SUN 7 days Active RESULTS No Results PROCEDURES No [...]
--- OUTSIDE RECORDS SUMMARY | 2020-01-28 14:39 | XMS REPORT ---
Author Author Katarina RODRIGUEZ Organization [facility] Address [address] [place] [address] Care Team Providers Care Licensing Coordinator Name Role Phone GEORGINA RODRIGUEZ Unavailable PROBLEMS Type Condition ICD9-CM Code KBE01-BQ Code Onset Dates Condition S tatus SNOMED Code Problem History of cataract surgery Z98.49 Ac tive 814158907 Problem [facility] (current) use of anticoagulants Z79.01 Active 020683710 Problem Urinary incontinence, unspecified type R32 Active 722432393 Problem Other chronic pain G89.29 Active 8 8571087 Problem Chronic atrial fibrillation I48.2 Ac tive 201208364 Problem Irregular heart beats I49.9 Active 685033087 Problem Morbid obesity, unspecified obesity type E66.01 Active 461147846 Problem Essential hypertension I10 Active 53459207 Problem Other urinary incontinence N39.498 Act essie 161665569 Problem Eye exam normal Z01.00 Active 2438 38531 Problem Abnormal mammogram R92.8 Active 1 22381910 Problem Acquired hypothyroidism E03.9 Active 960048205 Problem High risk medication use Z79.899 Activ e 635100698 Problem Osteoarthritis M19.90 Active 77296 5006 Problem Diabetes E11.9 Active 904408770 Problem Cigarette nicotine dependence without complication F17.210 Active 19903692 Problem Encounter for immunization Z23 Act essie [id number] ALLERGIES No Information ENCOUNTERS Encounter Location Date Diagnosis [facility] [address] [facility] [id number] [address] [place] [address] May, Osteoarthritis M19.90 [facility] [address] [facility] [id number] [address] [place] [address] May, [facility] [address] [facility] [id number] [address] [place] [address] May, Diabetes E11.9 ; [facility] ( current) use of anticoagulants Z79.01 ; Chronic atrial fibrillation I48.2 ; BMI 45.0-49.9, adult Z68.42 ; Osteoarthritis M19.90 ; Low back pain M54.5 and Other chronic pain G89.29 [facility] [address] [id number] [address] [place] [address] 20 Apr, 2018 Chronic atrial fibrillation I48.2 [facility] [address] [facility] [id number] [address] [place] [address] 13 Apr, 2018 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 [facility] [address] [id number] [address] [place] [address] 07 Apr, 2018 Osteoarthritis M19.90 [place] [address] [facility] [id number] [address] [place] [address] 04 Apr, 2018 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 and Chronic atrial fibrillation I48.2 [facility] [address] [id number] [address] [place] [address] 10 Mar, 2018 Osteoarthritis M19.90 [place] [address] [id number] [address] [place] [address] Feb, Osteoarthritis M19.90 [place] [address] [facility] [id number] [address] [place] [address] Jan, Osteoarthritis M19.90 [place] [address] [facility] [id number] [address] [place] [address] December, [place] [address] [id number] [address] [place] [address] December, Osteoarthritis M19.90 [facility] [address] [facility] [id number] [address] [place] [address] Nov, Diabetes E11.9 ; 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 ; Acquired hypothyroidism E03.9 ; Cigarette nicotine dependence without complication F17.210 ; Osteoarthritis M19.90 ; BMI 45.0-49.9, adult Z68.42 and Chronic atrial fibrillation I48.2 [facility] [address] [facility] [id number] [address] [place] [address] Nov, Osteoarthritis M19.90 [facility] [address] [facility] [id number] [address] [place] [address] Oct, Osteoarthritis M19.90 [facility] [address] [facility] [id number] [address] [place] [address] Oct, [facility] (current) use of a nticoagulants Z79.01 [facility] [address] [facility] [id number] [address] [place] [address] Sep, Osteoarthritis M19.90 [facility] [address] [facility] [id number] [address] [place] [address] Sep, [facility] [address] [facility] [id number] [address] [place] [address] Aug, Osteoarthritis M19.90 [facility] [address] [facility] [id number] [address] [place] [address] Jul, Osteoarthritis M19.90 [facility] [address] [place] [id number] [address] [place] [address] Jul, Osteoarthritis M19.90 [facility] [address] [facility] [id number] [address] [place] [address] Jun, Diabetes E11.9 ; Encounter f or immunization Z23 ; [facility] (current) use of anticoagulants Z79.01 ; Chronic atrial fibrillation I48.2 ; Osteoarthritis M19.90 ; Tobacco abuse Z72.0 and Bug bite, initial encounter W57.XXXA [facility] [address] [facility] [id number] [address] [place] [address] May, Osteoarthritis M19.90 [facility] [address] [facility] [id number] [address] [place] [address] Apr, Osteoarthritis M19.90 [facility] [address] [place] [id number] [address] [place] [address] Mar, Chronic atrial fibrillation I48.2 [facility] [address] [id number] [address] [place] [address] Mar, [facility] [address] [id number] [address] [place] [address] Mar, Osteoarthritis M19.90 [facility] [address] [id number] [address] [place] [address] Mar, [facility] (current) use of a nticoagulants Z79.01 and Chronic atrial fibrillation I48.2 [facility] [address] [id number] [address] [place] [address] Mar, Chronic atrial fibrillation I48.2 and [facility] (current) use of anticoagulants Z79.01 [facility] [address] [id number] [address] [place] [address] Mar, [facility] (current) use of a nticoagulants Z79.01 [facility] [address] [id number] [address] [place] [address] Mar, [facility] (current) use of a nticoagulants Z79.01 [facility] [address] [id number] [address] [place] [address] Mar, Osteoarthritis M19.90 [place] [address] [id number] [address] [place] [address] Feb, Encounter for screening mamm ogram for malignant neoplasm of breast Z12.31 [facility] [address] [id number] [address] [place] [address] Feb, Osteoarthritis M19.90 [facility] [address] [id number] [address] [place] [address] Jan, [facility] [address] [id number] [address] [place] [address] Jan, [facility] (current) use of a nticoagulants Z79.01 ; Diabetes E11.9 ; Osteoarthritis M19.90 and Breast cancer screening Z12.39 [facility] [address] [id number] [address] [place] [address] Jan, Osteoarthritis M19.90 [facility] [address] [facility] [id number] [address] [place] [address] Jan, Osteoarthritis M19.90 [facility] [address] [facility] [id number] [address] [place] [address] Jan, [facility] [address] [facility] [id number] [address] [place] [address] December, Osteoarthritis M19.90 [facility] [address] [id number] [address] [place] [address] December, Osteoarthritis M19.90 [facility] [place] [id number] [place] [id number] Nov, [facility] [address] [facility] [id number] [address] [place] [address] Nov, [facility] [address] [facility] [id number] [address] [place] [address] Nov, [facility] [address] [facility] [id number] [address] [place] [address] Nov, Diabetes E11.9 [facility] [address] [facility] [id number] [address] [place] [address] Nov, [facility] [address] [facility] [id number] [address] [place] [address] Oct, Osteoarthritis M19.90 [facility] [address] [facility] [id number] [address] [place] [address] Oct, Osteoarthritis M19.90 ; [facility] (current) use of anticoagulants Z79.01 ; Diabetes E11.9 ; Cigarette nicotine dependence without complication F17.210 and Chronic atrial fibrillation I48.2 [facility] [address] [facility] [id number] [address] [place] [address] Aug, [facility] [address] [place] [id number] [address] [place] [address] Aug, [facility] (current) use of a nticoagulants Z79.01 [facility] [address] [place] [id number] [address] [place] [address] Aug, [facility] [place] [id number] [id number] Aug, [facility] [address] [place] [id number] [address] [place] [address] Aug, [facility] [address] [address] Aug, [facility] [place] [address] [place] [id number] [place] [id number] Aug, [facility] [address] [place] [id number] Aug Osteoarthritis M19.90 and Essential hypertension I10 [place] [address] [place] [id number] [address] [place] [address] Aug, Other urinary incontinence N 39.498 [place] [address] [address] Jul, Osteoarthritis M19.90 [place] [address] [address] Jun, Diabetes E11.9 ; Encounter f or immunization Z23 ; Osteoarthritis M19.90 ; [facility] (current) use of anticoagulants Z79.01 ; Cigarette nicotine dependence without complication F17.210 ; Acquired hypothyroidism E03.9 ; Morbid obesity, unspecified obesity type E66.01 and Irregular heart beats I49.9 [place] [address] [address] Jun, Osteoarthritis M19.90 [place] [address] [address] May, Osteoarthritis M19.90 [place] [address] [address] May, Urinary incontinence, unspec ified type R32 [facility] [address] [id number] [address] [place] [address] May, [facility] [address] [facility] [id number] [address] [place] [address] Apr, Osteoarthritis M19.90 [facility] [address] [facility] [id number] [address] [place] [address] Apr, 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 [facility] [address] [facility] [id number] [address] [place] [address] Apr, [facility] [address] [facility] [id number] [address] [place] [address] Apr, Osteoarthritis M19.90 [facility] [id number] [place] [address] Mar, Diabetes E11.9 ; Hypothyroid ism, unspecified type E03.9 ; Osteoarthritis M19.90 ; High risk medication use Z79.899 ; Cigarette nicotine dependence without complication F17.210 and Morbid obesity, unspecified obesity type E66.01 [facility] [address] [facility] [id number] [address] [place] [address] Mar, Osteoarthritis M19.90 [facility] [address] [facility] [id number] [address] [place] [address] December, Osteoarthritis M19.90 [facility] [address] [facility] [id number] [address] [place] [address] December, [facility] [address] [facility] [id number] [address] [place] [address] Oct, [facility] [address] [place] [id number] [address] [place] [address] Oct, [facility] [address] [facility] [id number] [address] [place] [address] Aug, [place] [address] [id number] [address] [place] [address] Jul, [facility] [address] [id number] [address] [place] [address] Jul, [facility] [address] [id number] [address] [place] [address] Jul, Diabetes E11.9 ; Encounter f or immunization Z23 ; Abnormal mammogram R92.8 ; Acquired hypothyroidism E03.9 ; High risk medication use Z79.899 ; Osteoarthritis M19.90 and Cigarette nicotine dependence without complication F17.210 [facility] [address] [id number] [address] [place] [address] Jul, [facility] [address] [id number] [address] [place] [address] Jun, Abnormal mammogram R92.8 [facility] [address] [id number] [address] [place] [address] Apr, [facility] [address] [id number] [address] [place] [address] Apr, [facility] [address] [id number] [address] [place] [address] Mar, [facility] [address] [id number] [address] [place] [address] Mar, 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 [facility] [address] [id number] [address] [place] [address] Feb, [facility] [address] [id number] [address] [place] [address] Jan, [facility] [address] [id number] [address] [place] [address] December, [facility] [address] [id number] [address] [place] [address] Nov, [facility] [address] [id number] [address] [place] [address], [place] [address] 13 Nov, 2014 [facility] [address] [id number] [address] [place] [address], [place] [address] Oct, [facility] [address] [id number] [address] [place] [address], [place] [address] Oct, [facility] [address] [id number] [address] [place] [address], [place] [address] Oct, [facility] [address] [id number] [address] [place] [address], [place] [address] Oct, [facility] [address] [id number] [address] [place] [address], [place] [address] Oct, [facility] [address] [id number] [address] [place] [address], [place] [address] Oct, [facility] [address] [id number] [address] [place] [address], [place] [address] Sep, [facility] [address] [id number] [address] [place] [address], [place] [address] Sep, [facility] [address] [id number] [address] [place] [address], [place] [address] Sep, [facility] [address] [id number] [address] [place] [address], [place] [address] Sep, [facility] [address] [id number] [address] [place] [address], [place] [address] Aug, [facility] [address] [id number] [address] [place] [address], [place] [address] Aug, [facility] [address] [id number] [address] [place] [address], [place] [address] Aug, [facility] [address] [id number] [address] [place] [address], [place] [address] Aug, [facility] [address] [id number] [address] [place] [address], [place] [address] Aug, [facility] [address] [id number] [address] [place] [address], [place] [address] Aug, [facility] [address] [id number] [address] [place] [address], [place] [address] Jul, [facility] [address] [id number] [address] [place] [address], [place] [address] Jul, [facility] [address] [id number] [address] [place] [address], [place] [address] Jul, [facility] [address] [id number] [address] [place] [address], [place] [address] Jul, [facility] [address] [id number] [address] [place] [address], [place] [address] Jul, [facility] [address] [id number] [address] [place] [address], [place] [address] Jul, [facility] [address] [id number] [address] [place] [address], [place] [address] Jun, [facility] [address] [id number] [address] [place] [address], [place] [address] Jun, [facility] [address] [id number] [address] [place] [address], [place] [address] Jun, [facility] [address] [id number] [address] [place] [address], [place] [address] Jun, [facility] [address] [id number] [address] [place] [address], [place] [address] Jun, [facility] [address] [id number] [address] [place] [address], [place] [address] Jun, [facility] [address] [id number] [address] [place] [address], [place] [address] Jun, [facility] [address] [id number] [address] [place] [address], [place] [address] Jun, [facility] [address] [id number] [address] [place] [address] Jun, [facility] [address] [id number] [address] [place] [address], [place] [address] May, [facility] [address] [id number] [address] [place] [address], [place] [address] May, [facility] [address] [id number] [address] [place] [address], [place] [address] Apr, [facility] [address] [id number] [address] [place] [address], [place] [address] Apr, [facility] [address] [id number] [address] [place] [address], [place] [address] Apr, [facility] [address] [id number] [address] [place] [address], [place] [address] Apr, [facility] [address] [id number] [address] [place] [address], [place] [address] Apr, [facility] [address] [id number] [address] [place] [address], [place] [address] Apr, [facility] [address] [id number] [address] [place] [address], [place] [address] Apr, [facility] [address] [id number] [address] [place] [address], [place] [address] Apr, [facility] [address] [id number] [address] [place] [address], [place] [address] Apr, [facility] [address] [id number] [address] [place] [address], [place] [address] Apr, [facility] [address] [id number] [address] [place] [address], [place] [address] Mar, [facility] [address] [id number] [address] [place] [address], [place] [address] Mar, [facility] [address] [id number] [address] [place] [address], [place] [address] Mar, [facility] [address] [id number] [address] [place] [address], [place] [address] Mar, [facility] [address] [id number] [address] [place] [address], [place] [address] Mar, [facility] [address] [id number] [address] [place] [address], [place] [address] Mar, [facility] [address] [id number] [address] [place] [address], [place] [address] Feb, [facility] [address] [id number] [address] [place] [address], [place] [address] Feb, [facility] [address] [id number] [address] [place] [address], [place] [address] Feb, [facility] [address] [id number] [address] [place] [address], [place] [address] Feb, [facility] [address] [id number] [address] [place] [address], [place] [address] Jan, [facility] [address] [id number] [address] [place] [address], [place] [address] Jan, [facility] [address] [id number] [address] [place] [address], [place] [address] Jan, [facility] [address] [id number] [address] [place] [address], [place] [address] Jan, [facility] [address] [id number] [address] [place] [address], [place] [address] Oct, [facility] [address] [id number] [address] [place] [address], [place] [address] Oct, [facility] [address] [id number] [address] [place] [address], [place] [address] Sep, [facility] [address] [id number] [address] [place] [address], [place] [address] Sep, [facility] [address] [id number] [address] [place] [address], [place] [address] Sep, [facility] [address] [id number] [address] [place] [address], [place] [address] Sep, [facility] [address] [id number] [address] [place] [address], [place] [address] Aug, [facility] [address] [id number] [address] [place] [address], [place] [address] Aug, [facility] [address] [id number] [address] [place] [address], [place] [address] Aug, [facility] [address] [id number] [address] [place] [address], [place] [address] Aug, [facility] [address] [id number] [address] [place] [address], [place] [address] Jul, [facility] [address] [id number] [address] [place] [address], [place] [address] Jul, [facility] [address] [id number] [address] [place] [address], [place] [address] Jul, [facility] [address] [id number] [address] [place] [address], [place] [address] Jul, [facility] [address] [id number] [address] [place] [address], [place] [address] Jul, [facility] [address] [id number] [address] [place] [address], [place] [address] Jul, [facility] [address] [id number] [address] [place] [address], [place] [address] Jun, [facility] [address] [id number] [address] [place] [address], [place] [address] Jun, [facility] [address] [id number] [address] [place] [address], [place] [address] Jun, [facility] [address] [id number] [address] [place] [address], [place] [address] Jun, [facility] [address] [id number] [address] [place] [address], [place] [address] Jun, [facility] [address] [id number] [address] [place] [address], [place] [address] Jun, [facility] [address] [id number] [address] [place] [address], [place] [address] May, [facility] [address] [id number] [address] [place] [address], [place] [address] May, [facility] [address] [id number] [address] [place] [address], [place] [address] May, [facility] [address] [id number] [address] [place] [address], [place] [address] May, [facility] [address] [id number] [address] [place] [address], [place] [address] May, [facility] [address] [id number] [address] [place] [address], [place] [address] May, [facility] [address] [id number] [address] [place] [address], [place] [address] May, [facility] [address] [id number] [address] [place] [address], [place] [address] May, [facility] [address] [id number] [address] [place] [address], [place] [address] Apr, [facility] [address] [id number] [address] [place] [address], [place] [address] Apr, [facility] [address] [id number] [address] [place] [address], [place] [address] Mar, [facility] [address] [id number] [address] [place] [address], [place] [address] Mar, [facility] [address] [id number] [address] [place] [address], [place] [address] Mar, [facility] [address] [id number] [address] [place] [address], [place] [address] Mar, [facility] [address] [id number] [address] [place] [address], [place] [address] Feb, [facility] [address] [id number] [address] [place] [address], [place] [address] Jan, [facility] [address] [id number] [address] [place] [address], [place] [address] December, [facility] [address] [id number] [address] [place] [address], [place] [address] December, [facility] [address] [id number] [address] [place] [address], [place] [address] December, [facility] [address] [id number] [address] [place] [address], [place] [address] Nov, [facility] [address] [id number] [address] [place] [address], [place] [address] Nov, [facility] [address] [id number] [address] [place] [address], [place] [address] 14 Sep, 2012 [facility] [address] [id number] [address] [place] [address], [place] [address] Sep, [facility] [address] [id number] [address] [place] [address], [place] [address] 14 Sep, 2012 [facility] [address] [id number] [address] [place] [address], [place] [address] Sep, [facility] [address] [id number] [address] [place] [address], [place] [address] Aug, [facility] [address] [id number] [address] [place] [address], [place] [address] Aug, [facility] [address] [id number] [address] [place] [address], [place] [address] Aug, [facility] [address] [id number] [address] [place] [address], [place] [address] Aug, [facility] [address] [id number] [address] [place] [address], [place] [address] Jul, [facility] [address] [id number] [address] [place] [address], [place] [address] Jul, [facility] [address] [id number] [address] [place] [address], [place] [address] Jul, [facility] [address] [id number] [address] [place] [address], [place] [address] Jul, [facility] [address] [id number] [address] [place] [address], [place] [address] Jun, [facility] [address] [id number] [address] [place] [address], [place] [address] Jun, [facility] [address] [id number] [address] [place] [address], [place] [address] Jun, [facility] [address] [id number] [address] [place] [address], [place] [address] Jun, [facility] [address] [id number] [address] [place] [address], [place] [address] May, [facility] [address] [id number] [address] [place] [address], [place] [address] 18 May, 2012 [facility] [address] [id number] [address] [place] [address], [place] [address] May, [facility] [address] [id number] [address] [place] [address], [place] [address] May, [facility] [address] [id number] [address] [place] [address], [place] [address] May, [facility] [address] [id number] [address] [place] [address], [place] [address] 10 Apr, 2012 [facility] [address] [id number] [address] [place] [address], [place] [address] 08 Apr, 2012 [facility] [address] [id number] [address] [place] [address], [place] [address] 07 Apr, 2012 [facility] [address] [id number] [address] [place] [address], [place] [address] Apr, [facility] [address] [id number] [address] [place] [address], [place] [address] Mar, [facility] [address] [id number] [address] [place] [address], [place] [address] Mar, [facility] [address] [id number] [address] [place] [address], [place] [address] Feb, [facility] [address] [id number] [address] [place] [address], [place] [address] Feb, [facility] [address] [id number] [address] [place] [address], [place] [address] Feb, [facility] [address] [id number] [address] [place] [address], [place] [address] Jan, [facility] [address] [id number] [address] [place] [address], [place] [address] Jan, [facility] [address] [id number] [address] [place] [address], [place] [address] December, [facility] [address] [id number] [address] [place] [address], [place] [address] December, [facility] [address] [id number] [address] [place] [address], [place] [address] Nov, [facility] [address] [id number] [address] [place] [address], [place] [address] Oct, [facility] [address] [id number] [address] [place] [address], [place] [address] Oct, [facility] [address] [id number] [address] [place] [address], [place] [address] Sep, [facility] [address] [id number] [address] [place] [address], [place] [address] Sep, [facility] [address] [id number] [address] [place] [address], [place] [address] Aug, [facility] [address] [id number] [address] [place] [address], [place] [address] 30 Aug, 2011 [facility] [address] [id number] [address] [place] [address], [place] [address] Jul, [facility] [address] [id number] [address] [place] [address], [place] [address] Jul, [facility] [address] [id number] [address] [place] [address], [place] [address] Jul, [facility] [address] [id number] [address] [place] [address], [place] [address] Jun, [facility] [address] [id number] [address] [place] [address], [place] [address] Jun, [facility] [address] [id number] [address] [place] [address], [place] [address] 13 May, 2011 [facility] [address] [id number] [address] [place] [address], [place] [address] May, [facility] [address] [id number] [address] [place] [address], [place] [address] May, [facility] [address] [id number] [address] [place] [address], [place] [address] Jul, [facility] [address] [id number] [address] [place] [address], [place] [address] 08 Jul, 2010 [facility] [address] [id number] [address] [place] [id number] 15 Jun, 2010 [facility] [address] [id number] [address] [place] [address], [place] [address] May, [facility] [address] [id number] [address] [place] [address], [place] [address] May, [facility] [address] [id number] [address] [place] [address], [place] [address] 14 Aug, 2009 [facility] [address] [id number] [address] [place] [address] Jul, [facility] [address] [facility] [id number] [address] [place] [address] Jun, [facility] [address] [facility] [id number] [address] [place] [address] Jun, [facility] [address] [facility] [id number] [address] [place] [address] Jun, [facility] [address] [facility] [id number] [address] [place] [address] Jun, [facility] [address] [facility] [id number] [address] [place] [address] Jun, [facility] [address] [facility] [id number] [address] [place] [id number] May, [facility] [address] [facility] [id number] [address] [place] [address] Sep, IMMUNIZATIONS No Known Immunizations SOCIAL HISTORY Never Assessed REASON FOR VISIT Controlled Med Refill 05/18/18 PLAN OF CARE VITAL SIGNS MEDICATIONS Medication [...]
--- OUTSIDE RECORDS SUMMARY | 2020-01-28 14:39 | XMS REPORT ---
Author Author Katarina RODRIGUEZ Organization [facility] Address [address] [place] [address] Care Team Providers Care Project Technician Name Role Phone GEORGINA RODRIGUEZ Unavailable PROBLEMS Type Condition ICD9-CM Code IXD20-QN Code Onset Dates Condition S tatus SNOMED Code Problem History of cataract surgery Z98.49 Ac tive 450204462 Problem penitentiary (current) use of anticoagulants Z79.01 Active 580182713 Problem Urinary incontinence, unspecified type R32 Active 739746939 Problem Other chronic pain G89.29 Active 8 1837071 Problem Chronic atrial fibrillation I48.2 Ac tive 873586322 Problem Irregular heart beats I49.9 Active 483591412 Problem Morbid obesity, unspecified obesity type E66.01 Active 573804435 Problem Essential hypertension I10 Active 52579590 Problem Other urinary incontinence N39.498 Act essie 729683625 Problem Eye exam normal Z01.00 Active 2438 48411 Problem Abnormal mammogram R92.8 Active 1 95540440 Problem Acquired hypothyroidism E03.9 Active 875608765 Problem High risk medication use Z79.899 Activ e 626753048 Problem Osteoarthritis M19.90 Active 76415 5006 Problem Diabetes E11.9 Active 266248309 Problem Cigarette nicotine dependence without complication F17.210 Active 31692961 Problem Encounter for immunization Z23 Act essie [id number] ALLERGIES No Information ENCOUNTERS Encounter Location Date Diagnosis [facility] [address] [facility] [id number] [address] [place] [address] May, Osteoarthritis M19.90 [facility] [address] [facility] [id number] [address] [place] [id number] May, [facility] [address] [facility] [id number] [address] [place] [address] May, Diabetes E11.9 ; penitentiary ( current) use of anticoagulants Z79.01 ; Chronic atrial fibrillation I48.2 ; BMI 45.0-49.9, adult Z68.42 ; Osteoarthritis M19.90 ; Low back pain M54.5 and Other chronic pain G89.29 [facility] [address] [id number] [address] [place] [id number] 20 Apr, 2018 Chronic atrial fibrillation I48.2 [facility] [address] [facility] [id number] [address] [place] [id number] 13 Apr, 2018 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.01 [facility] [address] [id number] [address] [place] [id number] 07 Apr, 2018 Osteoarthritis M19.90 [place] [address] [facility] [id number] [address] [place] [id number] 04 Apr, 2018 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.01 and Chronic atrial fibrillation I48.2 [facility] [address] [id number] [address] [place] [id number] 10 Mar, 2018 Osteoarthritis M19.90 [place] [address] [id number] [address] [place] [address] Feb, Osteoarthritis M19.90 [place] [address] [facility] [id number] [address] [place] [address] Jan, Osteoarthritis M19.90 [place] [address] [facility] [id number] [address] [place] [id number] December, [place] [address] [id number] [address] [place] [address] December, Osteoarthritis M19.90 [facility] [address] [facility] [id number] [address] [place] [address] Nov, Diabetes E11.9 ; 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.01 ; Acquired hypothyroidism E03.9 ; Cigarette nicotine dependence without complication F17.210 ; Osteoarthritis M19.90 ; BMI 45.0-49.9, adult Z68.42 and Chronic atrial fibrillation I48.2 [facility] [address] [facility] [id number] [address] [place] [address] Nov, Osteoarthritis M19.90 [facility] [address] [facility] [id number] [address] [place] [address] Oct, Osteoarthritis M19.90 [facility] [address] [facility] [id number] [address] [place] [id number] Oct, penitentiary (current) use of a nticoagulants Z79.01 [facility] [address] [facility] [id number] [address] [place] [address] Sep, Osteoarthritis M19.90 [facility] [address] [facility] [id number] [address] [place] [address] Sep, [facility] [address] [facility] [id number] [address] [place] [address] Aug, Osteoarthritis M19.90 [facility] [address] [facility] [id number] [address] [place] [address] Jul, Osteoarthritis M19.90 [facility] [address] [place] [id number] [address] [place] [address] Jul, Osteoarthritis M19.90 [facility] [address] [facility] [id number] [address] [place] [address] Jun, Diabetes E11.9 ; Encounter f or immunization Z23 ; penitentiary (current) use of anticoagulants Z79.01 ; Chronic atrial fibrillation I48.2 ; Osteoarthritis M19.90 ; Tobacco abuse Z72.0 and Bug bite, initial encounter W57.XXXA [facility] [address] [facility] [id number] [address] [place] [id number] May, Osteoarthritis M19.90 [facility] [address] [facility] [id number] [address] [place] [address] Apr, Osteoarthritis M19.90 [facility] [address] [place] [id number] [address] [place] [address] Mar, Chronic atrial fibrillation I48.2 [facility] [address] [id number] [address] [place] [id number] Mar, [facility] [address] [id number] [address] [place] [address] Mar, Osteoarthritis M19.90 [facility] [address] [id number] [address] [place] [address] Mar, penitentiary (current) use of a nticoagulants Z79.01 and Chronic atrial fibrillation I48.2 [facility] [address] [id number] [address] [place] [address] Mar, Chronic atrial fibrillation I48.2 and penitentiary (current) use of anticoagulants Z79.01 [facility] [address] [id number] [address] [place] [phone] Mar, penitentiary (current) use of a nticoagulants Z79.01 [facility] [address] [id number] [address] [place] [address] Mar, penitentiary (current) use of a nticoagulants Z79.01 [facility] [address] [id number] [address] [place] [address] Mar, Osteoarthritis M19.90 [place] [address] [id number] [address] [place] [id number] Feb, Encounter for screening mamm ogram for malignant neoplasm of breast Z12.31 [facility] [address] [id number] [address] [place] [id number] Feb, Osteoarthritis M19.90 [facility] [address] [id number] [address] [place] [phone] Jan, [facility] [address] [id number] [address] [place] [id number] Jan, penitentiary (current) use of a nticoagulants Z79.01 ; Diabetes E11.9 ; Osteoarthritis M19.90 and Breast cancer screening Z12.39 [facility] [address] [id number] [address] [place] [address] Jan, Osteoarthritis M19.90 [facility] [address] [facility] [id number] [address] [place] [phone] Jan, Osteoarthritis M19.90 [facility] [address] [facility] [id number] [address] [place] [address] Jan, [facility] [address] [facility] [id number] [address] [place] [address] December, Osteoarthritis M19.90 [facility] [address] [id number] [address] [place] [address] December, Osteoarthritis M19.90 [facility] [id number] [place] [id number] Nov, [facility] [address] [facility] [id number] [address] [place] [id number] Nov, [facility] [address] [facility] [id number] [address] [place] [id number] Nov, [facility] [address] [facility] [id number] [address] [place] [address] Nov, Diabetes E11.9 [facility] [address] [facility] [id number] [address] [place] [id number] Nov, [facility] [address] [facility] [id number] [address] [place] [address] Oct, Osteoarthritis M19.90 [facility] [address] [facility] [id number] [address] [place] [address] Oct, Osteoarthritis M19.90 ; penitentiary (current) use of anticoagulants Z79.01 ; Diabetes E11.9 ; Cigarette nicotine dependence without complication F17.210 and Chronic atrial fibrillation I48.2 [facility] [address] [facility] [id number] [address] [place] [phone] Aug, [facility] [address] [place] [id number] [address] [place] [id number] Aug, penitentiary (current) use of a nticoagulants Z79.01 [facility] [address] [place] [id number] [address] [place] [address] Aug, [facility] [place] [id number] [id number] Aug, [facility] [address] [place] [id number] [address] [place] [address] Aug, [facility] [address] [address] Aug, [facility] [place] [address] [place] [id number] [place] [id number] Aug, [facility] [address] [place] [id number] Aug Osteoarthritis M19.90 and Essential hypertension I10 [place] [address] [address] [place] [id number] [address] [place] [address] Aug, Other urinary incontinence N 39.498 [place] [address] [address] Jul, Osteoarthritis M19.90 [place] [address] [address] Jun, Diabetes E11.9 ; Encounter f or immunization Z23 ; Osteoarthritis M19.90 ; penitentiary (current) use of anticoagulants Z79.01 ; Cigarette nicotine dependence without complication F17.210 ; Acquired hypothyroidism E03.9 ; Morbid obesity, unspecified obesity type E66.01 and Irregular heart beats I49.9 [place] [address] [address] Jun, Osteoarthritis M19.90 [place] [address] [address] May, Osteoarthritis M19.90 [place] [address] [address] May, Urinary incontinence, unspec ified type R32 [facility] [address] [id number] [address] [place] [address] May, [facility] [address] [facility] [id number] [address] [place] [address] Apr, Osteoarthritis M19.90 [facility] [address] [facility] [id number] [address] [place] [address] Apr, 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.01 [facility] [address] [facility] [id number] [address] [place] [id number] Apr, [facility] [address] [facility] [id number] [address] [place] [address] Apr, Osteoarthritis M19.90 [facility] [id number] [place] [address] Mar, Diabetes E11.9 ; Hypothyroid ism, unspecified type E03.9 ; Osteoarthritis M19.90 ; High risk medication use Z79.899 ; Cigarette nicotine dependence without complication F17.210 and Morbid obesity, unspecified obesity type E66.01 [facility] [address] [facility] [id number] [address] [place] [address] Mar, Osteoarthritis M19.90 [facility] [address] [facility] [id number] [address] [place] [address] December, Osteoarthritis M19.90 [facility] [address] [facility] [id number] [address] [place] [id number] December, [facility] [address] [facility] [id number] [address] [place] [id number] Oct, [facility] [address] [place] [id number] [address] [place] [id number] Oct, [facility] [address] [facility] [id number] [address] [place] [phone] Aug, [place] [address] [id number] [address] [place] [id number] Jul, [facility] [address] [id number] [address] [place] [id number] Jul, [facility] [address] [id number] [address] [place] [id number] Jul, Diabetes E11.9 ; Encounter f or immunization Z23 ; Abnormal mammogram R92.8 ; Acquired hypothyroidism E03.9 ; High risk medication use Z79.899 ; Osteoarthritis M19.90 and Cigarette nicotine dependence without complication F17.210 [facility] [address] [id number] [address] [place] [id number] Jul, [facility] [address] [id number] [address] [place] [id number] Jun, Abnormal mammogram R92.8 [facility] [address] [id number] [address] [place] [id number] Apr, [facility] [address] [id number] [address] [place] [id number] Apr, [facility] [address] [id number] [address] [place] [id number] Mar, [facility] [address] [id number] [address] [place] [id number] Mar, Current use of exterminator helper termite ant 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 V58.61 [facility] [address] [id number] [address] [place] [id number] Feb, [facility] [address] [id number] [address] [place] [id number] Jan, [facility] [address] [id number] [address] [place] [id number] December, [facility] [address] [id number] [address] [place] [id number] Nov, [facility] [address] [id number] [address] [place] [address], [place] [address] 13 Nov, 2014 [facility] [address] [id number] [address] [place] [address], [place] [address] Oct, [facility] [address] [id number] [address] [place] [address], [place] [address] Oct, [facility] [address] [id number] [address] [place] [address], [place] [address] Oct, [facility] [address] [id number] [address] [place] [address], [place] [address] Oct, [facility] [address] [id number] [address] [place] [address], [place] [address] Oct, [facility] [address] [id number] [address] [place] [address], [place] [address] Oct, [facility] [address] [id number] [address] [place] [address], [place] [address] Sep, [facility] [address] [id number] [address] [place] [address], [place] [address] Sep, [facility] [address] [id number] [address] [place] [address], [place] [address] Sep, [facility] [address] [id number] [address] [place] [address], [place] [address] Sep, [facility] [address] [id number] [address] [place] [address], [place] [address] Aug, [facility] [address] [id number] [address] [place] [address], [place] [address] Aug, [facility] [address] [id number] [address] [place] [address], [place] [address] Aug, [facility] [address] [id number] [address] [place] [address], [place] [address] Aug, [facility] [address] [id number] [address] [place] [address], [place] [address] Aug, [facility] [address] [id number] [address] [place] [address], [place] [address] Aug, [facility] [address] [id number] [address] [place] [address], [place] [address] Jul, [facility] [address] [id number] [address] [place] [address], [place] [address] Jul, [facility] [address] [id number] [address] [place] [address], [place] [address] Jul, [facility] [address] [id number] [address] [place] [address], [place] [address] Jul, [facility] [address] [id number] [address] [place] [address], [place] [address] Jul, [facility] [address] [id number] [address] [place] [address], [place] [address] Jul, [facility] [address] [id number] [address] [place] [address], [place] [address] Jun, [facility] [address] [id number] [address] [place] [address], [place] [address] Jun, [facility] [address] [id number] [address] [place] [address], [place] [address] Jun, [facility] [address] [id number] [address] [place] [address], [place] [address] Jun, [facility] [address] [id number] [address] [place] [address], [place] [address] Jun, [facility] [address] [id number] [address] [place] [address], [place] [address] Jun, [facility] [address] [id number] [address] [place] [address], [place] [address] Jun, [facility] [address] [id number] [address] [place] [address], [place] [address] Jun, [facility] [address] [id number] [address] [place] [address] Jun, [facility] [address] [id number] [address] [place] [address], [place] [address] May, [facility] [address] [id number] [address] [place] [address], [place] [address] May, [facility] [address] [id number] [address] [place] [address], [place] [address] Apr, [facility] [address] [id number] [address] [place] [address], [place] [address] Apr, [facility] [address] [id number] [address] [place] [address], [place] [address] Apr, [facility] [address] [id number] [address] [place] [address], [place] [address] Apr, [facility] [address] [id number] [address] [place] [address], [place] [address] Apr, [facility] [address] [id number] [address] [place] [address], [place] [address] Apr, [facility] [address] [id number] [address] [place] [address], [place] [address] Apr, [facility] [address] [id number] [address] [place] [address], [place] [address] Apr, [facility] [address] [id number] [address] [place] [address], [place] [address] Apr, [facility] [address] [id number] [address] [place] [address], [place] [address] Apr, [facility] [address] [id number] [address] [place] [address], [place] [address] Mar, [facility] [address] [id number] [address] [place] [address], [place] [address] Mar, [facility] [address] [id number] [address] [place] [address], [place] [address] Mar, [facility] [address] [id number] [address] [place] [address], [place] [address] Mar, [facility] [address] [id number] [address] [place] [address], [place] [address] Mar, [facility] [address] [id number] [address] [place] [address], [place] [address] Mar, [facility] [address] [id number] [address] [place] [address], [place] [address] Feb, [facility] [address] [id number] [address] [place] [address], [place] [address] Feb, [facility] [address] [id number] [address] [place] [address], [place] [address] Feb, [facility] [address] [id number] [address] [place] [address], [place] [address] Feb, [facility] [address] [id number] [address] [place] [address], [place] [address] Jan, [facility] [address] [id number] [address] [place] [address], [place] [address] Jan, [facility] [address] [id number] [address] [place] [address], [place] [address] Jan, [facility] [address] [id number] [address] [place] [address], [place] [address] Jan, [facility] [address] [id number] [address] [place] [address], [place] [address] Oct, [facility] [address] [id number] [address] [place] [address], [place] [address] Oct, [facility] [address] [id number] [address] [place] [address], [place] [address] Sep, [facility] [address] [id number] [address] [place] [address], [place] [address] Sep, [facility] [address] [id number] [address] [place] [address], [place] [address] Sep, [facility] [address] [id number] [address] [place] [address], [place] [address] Sep, [facility] [address] [id number] [address] [place] [address], [place] [address] Aug, [facility] [address] [id number] [address] [place] [address], [place] [address] Aug, [facility] [address] [address] [id number] [address] [place] [address], [place] [address] Aug, [facility] [address] [id number] [address] [place] [address], [place] [address] Aug, [facility] [address] [id number] [address] [place] [address], [place] [address] Jul, [facility] [address] [id number] [address] [place] [address], [place] [address] Jul, [facility] [address] [id number] [address] [place] [address], [place] [address] Jul, [facility] [address] [id number] [address] [place] [address], [place] [address] Jul, [facility] [address] [id number] [address] [place] [address], [place] [address] Jul, [facility] [address] [id number] [address] [place] [address], [place] [address] Jul, [facility] [address] [id number] [address] [place] [address], [place] [address] Jun, [facility] [address] [id number] [address] [place] [address], [place] [address] Jun, [facility] [address] [id number] [address] [place] [address], [place] [address] Jun, [facility] [address] [id number] [address] [place] [address], [place] [address] Jun, [facility] [address] [id number] [address] [place] [address], [place] [address] Jun, [facility] [address] [id number] [address] [place] [address], [place] [address] Jun, [facility] [address] [id number] [address] [place] [address], [place] [address] May, [facility] [address] [id number] [address] [place] [address], [place] [address] May, [facility] [address] [id number] [address] [place] [address], [place] [address] May, [facility] [address] [id number] [address] [place] [address], [place] [address] May, [facility] [address] [id number] [address] [place] [address], [place] [address] May, [facility] [address] [id number] [address] [place] [address], [place] [address] May, [facility] [address] [id number] [address] [place] [address], [place] [address] May, [facility] [address] [id number] [address] [place] [address], [place] [address] May, [facility] [address] [id number] [address] [place] [address], [place] [address] Apr, [facility] [address] [id number] [address] [place] [address], [place] [address] Apr, [facility] [address] [id number] [address] [place] [address], [place] [address] Mar, [facility] [address] [id number] [address] [place] [address], [place] [address] Mar, [facility] [address] [id number] [address] [place] [address], [place] [address] Mar, [facility] [address] [id number] [address] [place] [address], [place] [address] Mar, [facility] [address] [id number] [address] [place] [address], [place] [address] Feb, [facility] [address] [id number] [address] [place] [address], [place] [address] Jan, [facility] [address] [id number] [address] [place] [address], [place] [address] December, [facility] [address] [id number] [address] [place] [address], [place] [address] December, [facility] [address] [id number] [address] [place] [address], [place] [address] December, [facility] [address] [id number] [address] [place] [address], [place] [address] Nov, [facility] [address] [id number] [address] [place] [address], [place] [address] Nov, [facility] [address] [id number] [address] [place] [address], [place] [address] 14 Sep, 2012 [facility] [address] [id number] [address] [place] [address], [place] [address] Sep, [facility] [address] [id number] [address] [place] [address], [place] [address] 14 Sep, 2012 [facility] [address] [id number] [address] [place] [address], [place] [address] Sep, [facility] [address] [id number] [address] [place] [address], [place] [address] Aug, [facility] [address] [id number] [address] [place] [address], [place] [address] Aug, [facility] [address] [id number] [address] [place] [address], [place] [address] Aug, [facility] [address] [id number] [address] [place] [address], [place] [address] Aug, [facility] [address] [id number] [address] [place] [address], [place] [address] Jul, [facility] [address] [id number] [address] [place] [address], [place] [address] Jul, [facility] [address] [id number] [address] [place] [address], [place] [address] Jul, [facility] [address] [id number] [address] [place] [address], [place] [address] Jul, [facility] [address] [id number] [address] [place] [address], [place] [address] Jun, [facility] [address] [id number] [address] [place] [address], [place] [address] Jun, [facility] [address] [id number] [address] [place] [address], [place] [address] Jun, [facility] [address] [id number] [address] [place] [address], [place] [address] Jun, [facility] [address] [id number] [address] [place] [address], [place] [address] May, [facility] [address] [id number] [address] [place] [address], [place] [address] 18 May, 2012 [facility] [address] [id number] [address] [place] [address], [place] [address] May, [facility] [address] [id number] [address] [place] [address], [place] [address] May, [facility] [address] [id number] [address] [place] [address], [place] [address] May, [facility] [address] [id number] [address] [place] [address], [place] [address] 10 Apr, 2012 [facility] [address] [id number] [address] [place] [address], [place] [address] 08 Apr, 2012 [facility] [address] [id number] [address] [place] [address], [place] [address] 07 Apr, 2012 [facility] [address] [id number] [address] [place] [address], [place] [address] Apr, [facility] [address] [id number] [address] [place] [address], [place] [address] Mar, [facility] [address] [id number] [address] [place] [address], [place] [address] Mar, [facility] [address] [id number] [address] [place] [address], [place] [address] Feb, [facility] [address] [id number] [address] [place] [address], [place] [address] Feb, [facility] [address] [id number] [address] [place] [address], [place] [address] Feb, [facility] [address] [id number] [address] [place] [address], [place] [address] Jan, [facility] [address] [id number] [address] [place] [address], [place] [address] Jan, [facility] [address] [id number] [address] [place] [address], [place] [address] December, [facility] [address] [id number] [address] [place] [address], [place] [address] December, [facility] [address] [id number] [address] [place] [address], [place] [address] Nov, [facility] [address] [id number] [address] [place] [address], [place] [address] Oct, [facility] [address] [id number] [address] [place] [address], [place] [address] Oct, [facility] [address] [id number] [address] [place] [address], [place] [address] Sep, [facility] [address] [id number] [address] [place] [address], [place] [address] Sep, [facility] [address] [id number] [address] [place] [address], [place] [address] Aug, [facility] [address] [id number] [address] [place] [address], [place] [address] 30 Aug, 2011 [facility] [address] [id number] [address] [place] [address], [place] [address] Jul, [facility] [address] [id number] [address] [place] [address], [place] [address] Jul, [facility] [address] [id number] [address] [place] [address], [place] [address] Jul, [facility] [address] [id number] [address] [place] [address], [place] [address] Jun, [facility] [address] [id number] [address] [place] [address], [place] [address] Jun, [facility] [address] [id number] [address] [place] [address], [place] [address] 13 May, 2011 [facility] [address] [id number] [address] [place] [address], [place] [address] May, [facility] [address] [id number] [address] [place] [address], [place] [address] May, [facility] [address] [id number] [address] [place] [address], [place] [address] Jul, [facility] [address] [id number] [address] [place] [address], [place] [address] 08 Jul, 2010 [facility] [address] [id number] [address] [place] [address] 15 Jun, 2010 [facility] [address] [id number] [address] [place] [address], [place] [address] May, [facility] [address] [id number] [address] [place] [address], [place] [address] May, [facility] [address] [id number] [address] [place] [address], [place] [address] 14 Aug, 2009 [facility] [address] [id number] [address] [place] [address] Jul, [facility] [address] [facility] [id number] [address] [place] [address] Jun, [facility] [address] [facility] [id number] [address] [place] [address] Jun, [facility] [address] [facility] [id number] [address] [place] [address] Jun, [facility] [address] [facility] [id number] [address] [place] [address] Jun, [facility] [address] [facility] [id number] [address] [place] [address] Jun, [facility] [address] [facility] [id number] [address] [place] [address] May, [facility] [address] [facility] [id number] [address] [place] [id number] Sep, IMMUNIZATIONS No Known Immunizations SOCIAL HISTORY Never Assessed REASON FOR VISIT Requests return call PLAN OF CARE VITAL SIGNS MEDICATIONS Unknown [...]
--- OUTSIDE RECORDS SUMMARY | 2020-01-28 14:39 | XMS REPORT ---
Author Author Katarina RODRIGUEZ Organization [facility] Address [address] [place] [address] Care Team Providers Care Cutter First Name Role Phone GEORGINA RODRIGUEZ Unavailable PROBLEMS Type Condition ICD9-CM Code XZX00-TH Code Onset Dates Condition S tatus SNOMED Code Problem History of cataract surgery Z98.49 Ac tive 392304339 Problem skilled nursing (current) use of anticoagulants Z79.01 Active 968475176 Problem Urinary incontinence, unspecified type R32 Active 016884656 Problem Other chronic pain G89.29 Active 8 8948621 Problem Chronic atrial fibrillation I48.2 Ac tive 737132194 Problem Irregular heart beats I49.9 Active 150448766 Problem Morbid obesity, unspecified obesity type E66.01 Active 441815644 Problem Essential hypertension I10 Active 83804385 Problem Other urinary incontinence N39.498 Act essie 347052366 Problem Eye exam normal Z01.00 Active 2438 48877 Problem Abnormal mammogram R92.8 Active 1 58802805 Problem Acquired hypothyroidism E03.9 Active 353807741 Problem High risk medication use Z79.899 Activ e 237145905 Problem Osteoarthritis M19.90 Active 62688 5006 Problem Diabetes E11.9 Active 155257795 Problem Cigarette nicotine dependence without complication F17.210 Active 85220692 Problem Encounter for immunization Z23 Act essie [id number] ALLERGIES No Information ENCOUNTERS Encounter Location Date Diagnosis [facility] [address] [facility] [id number] [address] [place] [address] May, 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 E11.9 ; 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 ; Chronic atrial fibrillation I48.2 ; BMI 45.0-49.9, adult Z68.42 ; Osteoarthritis M19.90 ; Low back pain M54.5 and Other chronic pain G89.29 [facility] [address] [facility] [id number] [address] [place] [address] 20 Apr, 2018 Chronic atrial fibrillation I48.2 [facility] [address] [id number] [address] [place] [address] 13 Apr, 2018 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 [facility] [address] [facility] [id number] [address] [place] [address] 07 Apr, 2018 Osteoarthritis M19.90 [facility] [address] [facility] [id number] [address] [place] [address] 04 Apr, 2018 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 and Chronic atrial fibrillation I48.2 [facility] [address] [facility] [id number] [address] [place] [address] Mar, Osteoarthritis M19.90 [facility] [address] [facility] [id number] [address] [place] [address] Feb, Osteoarthritis M19.90 [facility] [address] [facility] [id number] [address] [place] [address] Jan, Osteoarthritis M19.90 [facility] [address] [facility] [id number] [address] [place] [address] December, [facility] [address] [facility] [id number] [address] [place] [address] December, Osteoarthritis M19.90 [facility] [address] [facility] [id number] [address] [place] [address] Nov, Diabetes E11.9 ; skilled nursing ( current) use of anticoagulants Z79.01 ; Acquired hypothyroidism E03.9 ; Cigarette nicotine dependence without complication F17.210 ; Osteoarthritis M19.90 ; BMI 45.0-49.9, adult Z68.42 and Chronic atrial fibrillation I48.2 [facility] [address] [facility] [id number] [address] [place] [address] Nov, Osteoarthritis M19.90 [facility] [address] [facility] [id number] [address] [place] [address] Oct, Osteoarthritis M19.90 [facility] [address] [facility] [id number] [address] [place] [address] Oct, skilled nursing (current) use of a nticoagulants Z79.01 [facility] [address] [facility] [id number] [address] [place] [address] Sep, Osteoarthritis M19.90 [facility] [address] [facility] [id number] [address] [place] [address] Sep, [facility] [address] [facility] [id number] [address] [place] [address] Aug, Osteoarthritis M19.90 [facility] [address] [place] [id number] [place] [address] Jul, Osteoarthritis M19.90 [facility] [address] [place] [id number] [address] [place] [address] Jul, Osteoarthritis M19.90 [facility] [address] [place] [id number] [address] [place] [address] Jun, Diabetes E11.9 ; Encounter f or immunization Z23 ; 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 ; Chronic atrial fibrillation I48.2 ; Osteoarthritis M19.90 ; Tobacco abuse Z72.0 and Bug bite, initial encounter W57.XXXA [facility] [id number] [place] [address] May, Osteoarthritis M19.90 [facility] [address] [place] [id number] [address] [place] [address] Apr, Osteoarthritis M19.90 [facility] [address] [place] [id number] [address] [place] [address] Mar, Chronic atrial fibrillation I48.2 [facility] [address] [place] [id number] [address] [place] [address] Mar, [facility] [address] [place] [id number] [address] [place] [address] Mar, Osteoarthritis M19.90 [facility] [address] [id number] [address] [place] [address] Mar, 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 and Chronic atrial fibrillation I48.2 [facility] [address] [id number] [address] [place] [address] Mar, Chronic atrial fibrillation I48.2 and 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 [facility] [address] [id number] [address] [place] [address] Mar, skilled nursing (current) use of a nticoagulants Z79.01 [place] [address] [id number] [address] [place] [address] Mar, 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 [place] [address] [id number] [address] [place] [address] Mar, Osteoarthritis M19.90 [facility] [address] [facility] [id number] [address] [place] [address] Feb, Encounter for screening mamm ogram for malignant neoplasm of breast Z12.31 [facility] [address] [id number] [address] [place] [address] Feb, Osteoarthritis M19.90 [place] [address] [id number] [address] [place] [address] Jan, [place] [address] [id number] [address] [place] [address] Jan, skilled nursing (current) use of a nticoagulants Z79.01 ; Diabetes E11.9 ; Osteoarthritis M19.90 and Breast cancer screening Z12.39 [facility] [address] [id number] [address] [place] [address] Jan, Osteoarthritis M19.90 [facility] [address] [facility] [id number] [address] [place] [address] Jan, Osteoarthritis M19.90 [facility] [address] [id number] [address] [place] [address] Jan, [facility] [address] [id number] [address] [place] [address] December, Osteoarthritis M19.90 [facility] [address] [id number] [address] [place] [address] December, Osteoarthritis M19.90 [facility] [id number] [place] [address], [place] [id number] Nov, [facility] [address] [id number] [address] [place] [address] Nov, [facility] [address] [id number] [address] [place] [address] Nov, [facility] [address] [facility] [id number] [address] [place] [address] Nov, Diabetes E11.9 [facility] [address] [id number] [address] [place] [address] Nov, [facility] [address] [facility] [id number] [address] [place] [address] Oct, Osteoarthritis M19.90 [facility] [address] [facility] [id number] [address] [place] [address] Oct, Osteoarthritis M19.90 ; skilled nursing (current) use of anticoagulants Z79.01 ; Diabetes E11.9 ; Cigarette nicotine dependence without complication F17.210 and Chronic atrial fibrillation I48.2 [facility] [address] [id number] [address] [place] [address] Aug, [facility] [address] [facility] [id number] [address] [place] [address] Aug, skilled nursing (current) use of a nticoagulants Z79.01 [facility] [address] [id number] [address] [place] [address] Aug, [facility] [id number] [id number] Aug, [facility] [address] [place] [id number] [address] [place] [address] Aug, [facility] [address] [facility] [id number] [address] [place] [address] Aug, [facility] [address] [id number] [id number] Aug, [employer] [address] [place] [id number] Aug Osteoarthritis M19.90 and Essential hypertension I10 [place] [address] [address] Aug, Other urinary incontinence N 39.498 [place] [address] [address] Jul, Osteoarthritis M19.90 [facility] [address] [address] Jun, Diabetes E11.9 ; Encounter f or immunization Z23 ; Osteoarthritis M19.90 ; 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 ; Cigarette nicotine dependence without complication F17.210 ; Acquired hypothyroidism E03.9 ; Morbid obesity, unspecified obesity type E66.01 and Irregular heart beats I49.9 [facility] [id number] [place] [address] Jun, Osteoarthritis M19.90 [facility] [id number] [place] [address] May, Osteoarthritis M19.90 [facility] [address] [place] [id number] [address] [place] [address] May, Urinary incontinence, unspec ified type R32 [facility] [address] [place] [id number] [address] [place] [address] May, [facility] [address] [place] [id number] [address] [place] [address] Apr, Osteoarthritis M19.90 [facility] [address] [id number] [address] [place] [address] Apr, skilled nursing (current) use of a nticoagulants Z79.01 [facility] [address] [facility] [id number] [address] [place] [address] Apr, [facility] [address] [facility] [id number] [address] [place] [address] Apr, Osteoarthritis M19.90 [facility] [address] [facility] [id number] [address] [place] [address] Mar, Diabetes E11.9 ; Hypothyroid ism, unspecified type E03.9 ; Osteoarthritis M19.90 ; High risk medication use Z79.899 ; Cigarette nicotine dependence without complication F17.210 and Morbid obesity, unspecified obesity type E66.01 [facility] [address] [facility] [id number] [address] [place] [address] Mar, Osteoarthritis M19.90 [facility] [address] [id number] [address] [place] [address] December, Osteoarthritis M19.90 [facility] [address] [facility] [id number] [address] [place] [address] December, [facility] [address] [id number] [address] [place] [address] Oct, [facility] [address] [id number] [address] [place] [address] Oct, [facility] [address] [id number] [address] [place] [address] Aug, [facility] [address] [facility] [id number] [address] [place] [address] Jul, [facility] [address] [facility] [id number] [address] [place] [address] Jul, [facility] [address] [facility] [id number] [address] [place] [address] Jul, Diabetes E11.9 ; Encounter f or immunization Z23 ; Abnormal mammogram R92.8 ; Acquired hypothyroidism E03.9 ; High risk medication use Z79.899 ; Osteoarthritis M19.90 and Cigarette nicotine dependence without complication F17.210 [facility] [address] [id number] [address] [place] [address] Jul, [facility] [address] [id number] [address] [place] [address] Jun, Abnormal mammogram R92.8 [facility] [address] [id number] [address] [place] [address] Apr, [facility] [address] [id number] [address] [place] [address] Apr, [facility] [address] [id number] [address] [place] [address] Mar, [facility] [address] [id number] [address] [place] [address] Mar, Current use of usp ant 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 V58.61 [facility] [address] [id number] [address] [place] [address] Feb, [facility] [address] [id number] [address] [place] [address] Jan, [facility] [address] [id number] [address] [place] [address] December, [facility] [address] [id number] [address] [place] [address] Nov, [facility] [address] [id number] [address] [place] [address] Nov, [facility] [address] [id number] [address] [place] [address] Oct, [facility] [address] [id number] [address] [place] [address] Oct, [facility] [address] [id number] [address] [place] [address], [place] [address] Oct, [facility] [address] [id number] [address] [place] [address], [place] [address] Oct, [facility] [address] [id number] [address] [place] [address], [place] [address] Oct, [facility] [address] [id number] [address] [place] [address], [place] [address] Oct, [facility] [address] [id number] [address] [place] [address], [place] [address] Sep, [facility] [address] [id number] [address] [place] [address], [place] [address] Sep, [facility] [address] [id number] [address] [place] [address], [place] [address] Sep, [facility] [address] [id number] [address] [place] [address], [place] [address] Sep, [facility] [address] [id number] [address] [place] [address], [place] [address] Aug, [facility] [address] [id number] [address] [place] [address], [place] [address] Aug, [facility] [address] [id number] [address] [place] [address], [place] [address] Aug, [facility] [address] [id number] [address] [place] [address], [place] [address] Aug, [facility] [address] [id number] [address] [place] [address], [place] [address] Aug, [facility] [address] [id number] [address] [place] [address], [place] [address] Aug, [facility] [address] [id number] [address] [place] [address], [place] [address] Jul, [facility] [address] [id number] [address] [place] [address], [place] [address] Jul, [facility] [address] [id number] [address] [place] [address], [place] [address] Jul, [facility] [address] [id number] [address] [place] [address], [place] [address] Jul, [facility] [address] [id number] [address] [place] [address], [place] [address] Jul, [facility] [address] [id number] [address] [place] [address], [place] [address] Jul, [facility] [address] [id number] [address] [place] [address], [place] [address] Jun, [facility] [address] [id number] [address] [place] [address], [place] [address] Jun, [facility] [address] [id number] [address] [place] [address], [place] [address] Jun, [facility] [address] [id number] [address] [place] [address], [place] [address] Jun, [facility] [address] [id number] [address] [place] [address], [place] [address] Jun, [facility] [address] [id number] [address] [place] [address], [place] [address] Jun, [facility] [address] [id number] [address] [place] [address], [place] [address] Jun, [facility] [address] [id number] [address] [place] [address], [place] [address] Jun, [facility] [address] [id number] [address] [place] [address], [place] [address] Jun, [facility] [address] [id number] [address] [place] [address], [place] [address] May, [facility] [address] [id number] [address] [place] [address], [place] [address] May, [facility] [address] [id number] [facility] [place] [address] Apr, 2013 [facility] [address] [id number] [address] [place] [address], [place] [address] Apr, [facility] [address] [id number] [address] [place] [address], [place] [address] Apr, 2013 [facility] [address] [id number] [address] [place] [address], [place] [address] Apr, 2013 [facility] [address] [id number] [address] [place] [address], [place] [address] Apr, [facility] [address] [id number] [address] [place] [address], [place] [address] Apr, 2013 [facility] [address] [id number] [address] [place] [address], [place] [address] Apr, 2013 [facility] [address] [id number] [address] [place] [address], [place] [address] Apr, [facility] [address] [id number] [address] [place] [address], [place] [address] Apr, [facility] [address] [id number] [address] [place] [address], [place] [address] Apr, [facility] [address] [id number] [address] [place] [address], [place] [address] Mar, [facility] [address] [id number] [address] [place] [address], [place] [address] Mar, [facility] [address] [id number] [address] [place] [address], [place] [address] Mar, [facility] [address] [id number] [address] [place] [address], [place] [address] Mar, [facility] [address] [id number] [address] [place] [address], [place] [address] Mar, [facility] [address] [id number] [address] [place] [address], [place] [address] Mar, [facility] [address] [id number] [address] [place] [address], [place] [address] Feb, [facility] [address] [id number] [address] [place] [address], [place] [address] Feb, [facility] [address] [id number] [address] [place] [address], [place] [address] Feb, [facility] [address] [id number] [address] [place] [address], [place] [address] Feb, [facility] [address] [id number] [address] [place] [address], [place] [address] Jan, [facility] [address] [id number] [address] [place] [address], [place] [address] Jan, [facility] [address] [id number] [address] [place] [address], [place] [address] Jan, [facility] [address] [id number] [address] [place] [address], [place] [address] Jan, [facility] [address] [id number] [address] [place] [address], [place] [address] Oct, [facility] [address] [id number] [address] [place] [address], [place] [address] Oct, [facility] [address] [id number] [address] [place] [address], [place] [address] Sep, [facility] [address] [id number] [address] [place] [address], [place] [address] Sep, [facility] [address] [id number] [address] [place] [address], [place] [address] Sep, [facility] [address] [id number] [address] [place] [address], [place] [address] Sep, [facility] [address] [id number] [address] [place] [address], [place] [address] Aug, [facility] [address] [id number] [address] [place] [address], [place] [address] Aug, [facility] [address] [id number] [address] [place] [address], [place] [address] Aug, [facility] [address] [id number] [address] [place] [address], [place] [address] Aug, [facility] [address] [id number] [address] [place] [address], [place] [address] Jul, [facility] [address] [id number] [address] [place] [address], [place] [address] Jul, [facility] [address] [id number] [address] [place] [address], [place] [address] Jul, [facility] [address] [id number] [address] [place] [address], [place] [address] Jul, [facility] [address] [id number] [address] [place] [address], [place] [address] Jul, [facility] [address] [id number] [address] [place] [address], [place] [address] Jul, [facility] [address] [id number] [address] [place] [address], [place] [address] Jun, [facility] [address] [id number] [address] [place] [address], [place] [address] Jun, [facility] [address] [id number] [address] [place] [address], [place] [address] Jun, [facility] [address] [id number] [address] [place] [address], [place] [address] Jun, [facility] [address] [id number] [address] [place] [address], [place] [address] Jun, [facility] [address] [id number] [address] [place] [address], [place] [address] Jun, [facility] [address] [id number] [address] [place] [address] [place] [address] May, [facility] [address] [id number] [address] [place] [address], [place] [address] May, [facility] [address] [id number] [address] [place] [address], [place] [address] May, [facility] [address] [id number] [address] [place] [address], [place] [address] May, [facility] [address] [id number] [address] [place] [address], [place] [id number] May, [facility] [address] [id number] [address] [place] [address], [place] [address] May, [facility] [address] [id number] [address] [address], [place] [address] May, [facility] [address] [id number] [address] [address], [place] [address] May, [facility] [address] [id number] [address] [address], [place] [address] Apr, [facility] [address] [id number] [address] [place] [address], [place] [address] Apr, [facility] [address] [id number] [address] [place] [address], [place] [address] Mar, [facility] [address] [id number] [address] [place] [address], [place] [address] Mar, [facility] [address] [id number] [address] [address], [place] [address] Mar, [facility] [address] [id number] [address] [place] [address], [place] [address] Mar, [facility] [address] [id number] [address] [address], [place] [address] Feb, [facility] [address] [id number] [address] [address], [place] [address] Jan, [facility] [address] [id number] [address] [place] [address], [place] [address] December, [facility] [address] [id number] [address] [place] [address], [place] [address] December, [facility] [address] [id number] [address] [place] [address], [place] [address] December, [facility] [address] [id number] [address] [place] [address], [place] [address] Nov, [facility] [address] [id number] [address] [address], [place] [address] Nov, [facility] [address] [id number] [address] [place] [address], [place] [address] Sep, [facility] [address] [id number] [address] [place] [address], [place] [address] Sep, [facility] [address] [id number] [address] [place] [address], [place] [address] Sep, [facility] [address] [id number] [address] [place] [address], [place] [address] Sep, [facility] [address] [id number] [address] [place] [address], [place] [address] Aug, [facility] [address] [id number] [address] [place] [address], [place] [address] Aug, [facility] [address] [id number] [address] [place] [address], [place] [address] Aug, [facility] [address] [id number] [address] [place] [address], [place] [address] Aug, [facility] [address] [id number] [address] [place] [address], [place] [address] Jul, [facility] [address] [id number] [address] [place] [address], [place] [address] Jul, [facility] [address] [id number] [address] [place] [address] Jul, [facility] [address] [id number] [address] [place] [address], [place] [address] Jul, [facility] [address] [id number] [address] [place] [address], [place] [address] Jun, [facility] [address] [id number] [address] [place] [address], [place] [address] Jun, [facility] [address] [id number] [address] [place] [address], [place] [address] Jun, [facility] [address] [id number] [address] [place] [address], [place] [address] Jun, [facility] [address] [id number] [address] [address], [place] [address] May, [facility] [address] [id number] [address] [place] [address], [place] [address] May, [facility] [address] [id number] [address] [place] [address], [place] [address] May, [facility] [address] [id number] [address] [place] [address], [place] [address] May, [facility] [address] [id number] [address] [place] [address], [place] [address] May, [facility] [address] [id number] [address] [place] [address], [place] [address] Apr, [facility] [address] [id number] [address] [place] [address] 08 Apr, 2012 [facility] [address] [id number] [address] [address], [place] [address] 07 Apr, 2012 [facility] [address] [id number] [address] [address], [place] [address] 06 Apr, 2012 [facility] [address] [id number] [address] [address], [place] [address] Mar, [facility] [address] [id number] [address] [place] [address], [place] [address] Mar, [facility] [address] [id number] [address] [address], [place] [address] Feb, [facility] [address] [id number] [address] [address], [place] [address] Feb, [facility] [address] [id number] [address] [place] [address], [place] [address] Feb, [facility] [address] [id number] [address] [address], [place] [address] Jan, [facility] [address] [id number] [address] [place] [address], [place] [address] Jan, [facility] [address] [id number] [address] [place] [address], [place] [address] December, [facility] [address] [id number] [address] [address], [place] [address] December, [facility] [address] [id number] [address] [address], [place] [address] Nov, [facility] [address] [id number] [address] [address], [place] [address] Oct, [facility] [address] [id number] [address] [address], [place] [address] Oct, [facility] [address] [id number] [address] [address], [place] [address] Sep, [facility] [address] [id number] [address] [address], [place] [address] Sep, [facility] [address] [id number] [address] [address], [place] [address] Aug, [facility] [address] [id number] [address] [place] [address], [place] [address] Aug, [facility] [address] [id number] [address] [address], [place] [address] 30 Jul, 2011 [facility] [address] [id number] [address] [address], [place] [address] 12 Jul, 2011 [facility] [address] [id number] [address] [address], [place] [address] 09 Jul, 2011 [facility] [address] [id number] [address] [address], [place] [address] 07 Jun, 2011 [facility] [address] [id number] [address] [place] [address], [place] [address] 07 Jun, 2011 [facility] [address] [id number] [address] [place] [address], [place] [address] 13 May, 2011 [facility] [address] [id number] [address] [place] [address], [place] [address] May, [facility] [address] [id number] [address] [place] [address], [place] [address] May, [facility] [address] [id number] [address] [place] [address], [place] [address] Jul, [facility] [address] [id number] [address] [place] [address], [place] [address] Jul, [facility] [address] [id number] [address] [place] [address], [place] [address] 15 Jun, 2010 [facility] [address] [id number] [address] [place] [address], [place] [address] May, [facility] [address] [id number] [address] [place] [address] May, [facility] [address] [id number] [address] [address], [place] [address] 14 Aug, 2009 [facility] [address] [id number] [address] [place] [address], [place] [address] 17 Jul, 2009 [facility] [address] [id number] [address] [place] [address], [place] [address] Jun, [facility] [address] [id number] [address] [place] [address] Jun, [facility] [address] [facility] [id number] [address] [place] [address] Jun, [facility] [address] [facility] [id number] [address] [place] [address] Jun, [facility] [address] [facility] [id number] [address] [place] [address] Jun, [facility] [address] [facility] [id number] [address] [place] [address] May, [facility] [address] [facility] [id number] [address] [place] [address] Sep, IMMUNIZATIONS No Known Immunizations SOCIAL HISTORY Never Assessed REASON FOR VISIT Lab (walk-in) PLAN OF CARE VITAL SIGNS MEDICATIONS Unknown Medications RESULTS Name Result Date Reference Range INR (IN HOUSE) 2018-04-22 INR 4.6 1.10 - 3.30 PREVIOUS INR 2.1 CURRENT COUMADIN DOSE 5 mg qd NEW COUMADIN DOSE Lot # [id number] Exp date 07 Jan 2019 PROCEDURES Procedure Date Ordered Result Body Site PROTHROMBIN TIME Apr 22, 2018 INSTRUCTIONS MEDICATIONS ADMINISTERED No Known Medications [...]
[2020-01-28 14:40] LABS: ALLENS TEST YES-POS; INSPIRED O2 ROOM AIR; PATIENT TEMP 36.6; VENTILATOR NO
--- OUTSIDE RECORDS SUMMARY | 2020-01-28 14:40 | XMS REPORT ---
Author Author Katarina RODRIGUEZ Organization [facility] Address [address] [place] [address] Care Team Providers Care Blue Line Operator Name Role Phone GEORGINA RODRIGUEZ Unavailable PROBLEMS Type Condition ICD9-CM Code HVM07-IW Code Onset Dates Condition S tatus SNOMED Code Problem Encounter for immunization Z23 Act essie 790046655 Problem Urinary incontinence, unspecified type R32 Active 641539658 Problem History of cataract surgery Z98.49 Ac tive 649016034 Problem Chronic atrial fibrillation I48.2 Ac tive 789413281 Problem Essential hypertension I10 Active 89105572 Problem Morbid obesity, unspecified obesity type E66.01 Active 296564734 Problem 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.01 Active 632692223 Problem Other urinary incontinence N39.498 Act essie 556659178 Problem Irregular heart beats I49.9 Active 811592188 Problem Eye exam normal Z01.00 Active 2438 98801 Problem Cigarette nicotine dependence without complication F17.210 Active 60453655 Problem Acquired hypothyroidism E03.9 Active 263487579 Problem Abnormal mammogram R92.8 Active 1 10943607 Problem High risk medication use Z79.899 Activ e 044508148 Problem Osteoarthritis M19.90 Active 11824 5006 Problem Diabetes E11.9 Active 636264624 ALLERGIES No Information ENCOUNTERS Encounter Location Date Diagnosis [place] [id number] [facility] [id number] [address] [place] [phone] Apr, [place] [address] [facility] [id number] [address] [place] [id number] 04 Apr, 2018 group home (current) use of a nticoagulants Z79.01 [facility] [address] [facility] [id number] [address] [place] [id number] Mar, Osteoarthritis M19.90 [place] [address] [facility] [id number] [address] [place] [id number] Feb, Osteoarthritis M19.90 [facility] [address] [facility] [id number] [address] [place] [id number] Jan, Osteoarthritis M19.90 [facility] [address] [facility] [id number] [address] [place] [id number] December, [facility] [address] [facility] [id number] [address] [place] [id number] December, Osteoarthritis M19.90 [facility] [address] [facility] [id number] [address] [place] [phone] Nov, Diabetes E11.9 ; long term care phlebotomist ( current) use of anticoagulants Z79.01 ; Acquired hypothyroidism E03.9 ; Cigarette nicotine dependence without complication F17.210 ; Osteoarthritis M19.90 ; BMI 45.0-49.9, adult Z68.42 and Chronic atrial fibrillation I48.2 [facility] [address] [facility] [id number] [address] [place] [phone] Nov, Osteoarthritis M19.90 [facility] [address] [facility] [id number] [address] [place] [id number] Oct, Osteoarthritis M19.90 [facility] [address] [facility] [id number] [address] [place] [id number] Oct, long term care phlebotomist (current) use of a nticoagulants Z79.01 [facility] [address] [facility] [id number] [address] [place] [id number] Sep, Osteoarthritis M19.90 [facility] [address] [facility] [id number] [address] [place] [phone] Sep, [facility] [address] [facility] [id number] [address] [place] [id number] Aug, Osteoarthritis M19.90 [facility] [address] [facility] [id number] [address] [place] [id number] Jul, Osteoarthritis M19.90 [place] [address] [facility] [id number] [address] [place] [id number] Jul, Osteoarthritis M19.90 [facility] [address] [facility] [id number] [address] [place] [id number] Jun, Diabetes E11.9 ; Encounter f or immunization Z23 ; group home (current) use of anticoagulants Z79.01 ; Chronic atrial fibrillation I48.2 ; Osteoarthritis M19.90 ; Tobacco abuse Z72.0 and Bug bite, initial encounter W57.XXXA [place] [address] [facility] [id number] [address] [place] [id number] May, Osteoarthritis M19.90 [place] [address] [facility] [id number] [address] [place] [id number] Apr, Osteoarthritis M19.90 [place] [address] [facility] [id number] [address] [place] [id number] Mar, Chronic atrial fibrillation I48.2 [place] [address] [facility] [id number] [address] [place] [phone] Mar, [place] [address] [facility] [id number] [address] [place] [id number] Mar, Osteoarthritis M19.90 [place] [address] [facility] [id number] [address] [place] [id number] Mar, group home (current) use of a nticoagulants Z79.01 and Chronic atrial fibrillation I48.2 [place] [address] [facility] [id number] [address] [place] [id number] Mar, Chronic atrial fibrillation I48.2 and 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.01 [place] [address] [facility] [id number] [address] [place] [id number] Mar, group home (current) use of a nticoagulants Z79.01 [place] [address] [facility] [id number] [address] [place] [id number] Mar, long term care phlebotomist (current) use of a nticoagulants Z79.01 [facility] [address] [id number] [address] [place] [id number] Mar, Osteoarthritis M19.90 [facility] [address] [id number] [address] [place] [id number] Feb, Encounter for screening mamm ogram for malignant neoplasm of breast Z12.31 [facility] [address] [id number] [address] [place] [id number] Feb, Osteoarthritis M19.90 [facility] [address] [id number] [address] [place] [id number] Jan, [facility] [address] [id number] [address] [place] [id number] Jan, long term care phlebotomist (current) use of a nticoagulants Z79.01 ; Diabetes E11.9 ; Osteoarthritis M19.90 and Breast cancer screening Z12.39 [facility] [address] [id number] [address] [place] [id number] Jan, Osteoarthritis M19.90 [facility] [address] [id number] [address] [place] [id number] Jan, Osteoarthritis M19.90 [facility] [address] [id number] [address] [place] [id number] Jan, [facility] [address] [id number] [address] [place] [phone] December, Osteoarthritis M19.90 [facility] [address] [id number] [address] [place] [id number] December, Osteoarthritis M19.90 [facility] [address] [id number] [id number] Nov, [facility] [address] [id number] [address] [place] [phone] Nov, [facility] [address] [id number] [address] [place] [id number] Nov, [facility] [address] [facility] [id number] [address] [place] [phone] Nov, Diabetes E11.9 [facility] [address] [facility] [id number] [address] [place] [id number] Nov, [facility] [address] [facility] [id number] [address] [place] [id number] Oct, Osteoarthritis M19.90 [facility] [address] [facility] [id number] [address] [place] [id number] Oct, Osteoarthritis M19.90 ; 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.01 ; Diabetes E11.9 ; Cigarette nicotine dependence without complication F17.210 and Chronic atrial fibrillation I48.2 [facility] [address] [facility] [id number] [address] [place] [phone] Aug, [facility] [address] [facility] [id number] [address] [place] [id number] Aug, long term care phlebotomist (current) use of a nticoagulants Z79.01 [facility] [address] [facility] [id number] [address] [place] [id number] Aug, [facility] [address] [id number] [id number] Aug, [facility] [address] [facility] [id number] [address] [place] [phone] Aug, [facility] [address] [facility] [id number] [address] [place] [id number] Aug, [facility] [address] [id number] [place] [facility] [place] [id number] Aug, [facility] [address] [place] [id number] Aug Osteoarthritis M19.90 and Essential hypertension I10 [facility] [address] [facility] [id number] [address] [place] [id number] Aug, Other urinary incontinence N 39.498 [place] [address] [facility] [id number] [address] [place] [id number] Jul, Osteoarthritis M19.90 [facility] [address] [facility] [id number] [address] [place] [id number] Jun, Diabetes E11.9 ; Encounter f or immunization Z23 ; Osteoarthritis M19.90 ; group home (current) use of anticoagulants Z79.01 ; Cigarette nicotine dependence without complication F17.210 ; Acquired hypothyroidism E03.9 ; Morbid obesity, unspecified obesity type E66.01 and Irregular heart beats I49.9 [facility] [address] [facility] [id number] [address] [place] [id number] Jun, Osteoarthritis M19.90 [facility] [address] [facility] [id number] [address] [place] [id number] May, Osteoarthritis M19.90 [facility] [address] [facility] [id number] [address] [place] [id number] May, Urinary incontinence, unspec ified type R32 [facility] [address] [facility] [id number] [address] [place] [id number] May, [facility] [address] [facility] [id number] [address] [place] [id number] Apr, Osteoarthritis M19.90 [facility] [address] [facility] [id number] [address] [place] [phone] Apr, group home (current) use of a nticoagulants Z79.01 [facility] [address] [id number] [address] [place] [id number] Apr, [facility] [address] [id number] [address] [place] [id number] Apr, Osteoarthritis M19.90 [facility] [address] [facility] [id number] [address] [place] [id number] Mar, Diabetes E11.9 ; Hypothyroid ism, unspecified type E03.9 ; Osteoarthritis M19.90 ; High risk medication use Z79.899 ; Cigarette nicotine dependence without complication F17.210 and Morbid obesity, unspecified obesity type E66.01 [facility] [address] [id number] [address] [place] [id number] Mar, Osteoarthritis M19.90 [facility] [address] [id number] [address] [place] [id number] December, Osteoarthritis M19.90 [facility] [address] [id number] [address] [place] [id number] December, [facility] [address] [id number] [address] [place] [phone] Oct, [facility] [address] [id number] [address] [place] [id number] Oct, [facility] [address] [facility] [id number] [address] [place] [id number] Aug, [facility] [address] [facility] [id number] [address] [place] [id number] Jul, [facility] [address] [facility] [id number] [address] [place] [id number] Jul, [facility] [address] [facility] [id number] [address] [place] [id number] Jul, Diabetes E11.9 ; Encounter f or immunization Z23 ; Abnormal mammogram R92.8 ; Acquired hypothyroidism E03.9 ; High risk medication use Z79.899 ; Osteoarthritis M19.90 and Cigarette nicotine dependence without complication F17.210 [facility] [address] [id number] [address] [place] [id number] Jul, [facility] [address] [facility] [id number] [address] [place] [id number] Jun, Abnormal mammogram R92.8 [facility] [address] [facility] [id number] [address] [place] [id number] Apr, [facility] [address] [facility] [id number] [address] [place] [phone] Apr, [facility] [address] [id number] [address] [place] [address], [place] [id number] Mar, [facility] [address] [id number] [address] [place] [id number] Mar, Current use of long chain quiller tender ant 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 V58.61 [facility] [address] [id number] [address] [place] [address], [place] [phone] Feb, [facility] [address] [id number] [address] [place] [phone] Jan, [facility] [address] [id number] [address] [place] [phone] December, [facility] [address] [id number] [address] [place] [phone] Nov, [facility] [address] [id number] [address] [place] [address], [place] [phone] Nov, [facility] [address] [id number] [address] [place] [phone] Oct, [facility] [address] [id number] [address] [place] [address], [place] [id number] Oct, [facility] [address] [id number] [address] [place] [phone] Oct, [facility] [address] [id number] [address] [place] [phone] Oct, [facility] [address] [id number] [address] [place] [phone] Oct, [facility] [address] [id number] [address] [place] [phone] Oct, [facility] [address] [id number] [address] [place] [id number] Sep, [facility] [address] [id number] [address] [place] [phone] Sep, [facility] [address] [id number] [address] [place] [address], [place] [id number] Sep, [facility] [address] [id number] [address] [place] [address], [place] [id number] Sep, [facility] [address] [id number] [address] [place] [address], [place] [phone] Aug, [facility] [address] [id number] [address] [place] [address], [place] [id number] Aug, [facility] [address] [id number] [address] [place] [address], [place] [id number] Aug, [facility] [address] [id number] [address] [place] [address], [place] [id number] Aug, [facility] [address] [id number] [address] [place] [address], [place] [phone] Aug, [facility] [address] [id number] [address] [place] [address], [place] [id number] Aug, [facility] [address] [id number] [address] [place] [address], [place] [id number] Jul, [facility] [address] [id number] [address] [place] [id number] Jul, [facility] [address] [id number] [address] [place] [phone] Jul, [facility] [address] [id number] [address] [place] [phone] Jul, [facility] [address] [id number] [address] [place] [address], [place] [id number] Jul, [facility] [address] [id number] [address] [place] [address], [place] [phone] Jul, [facility] [address] [id number] [address] [place] [phone] Jun, [facility] [address] [id number] [address] [place] [id number] Jun, [facility] [address] [id number] [address] [place] [address], [place] [phone] Jun, [facility] [address] [id number] [address] [place] [address], [place] [id number] Jun, [facility] [address] [id number] [address] [place] [address], [place] [phone] Jun, [facility] [address] [id number] [address] [place] [address], [place] [id number] Jun, [facility] [address] [id number] [address] [place] [address], [place] [phone] Jun, [facility] [address] [id number] [address] [place] [address], [place] [phone] Jun, [facility] [address] [id number] [address] [place] [phone] Jun, [facility] [address] [id number] [address] [place] [address], [place] [id number] May, [facility] [address] [id number] [address] [place] [address], [place] [id number] May, [facility] [address] [id number] [address] [place] [address], [place] [address] Apr, [facility] [address] [id number] [address] [place] [address], [place] [id number] Apr, [facility] [address] [id number] [address] [place] [phone] Apr, [facility] [address] [id number] [address] [place] [address], [place] [address] Apr, [facility] [address] [id number] [address] [place] [address], [place] [id number] Apr, [facility] [address] [id number] [address] [place] [address], [place] [address] Apr, [facility] [address] [id number] [facility] [place] [phone] 11 Apr, 2013 [facility] [address] [id number] [facility] [place] [id number] Apr, 2013 [facility] [address] [id number] [address] [place] [address], [place] [address] Apr, 2013 [facility] [address] [id number] [address] [place] [address], [place] [address] Apr, 2013 [facility] [address] [id number] [address] [place] [address], [place] [address] Mar, [facility] [address] [id number] [address] [place] [address], [place] [address] Mar, [facility] [address] [id number] [address] [place] [address], [place] [address] Mar, [facility] [address] [id number] [address] [place] [address], [place] [address] Mar, [facility] [address] [id number] [address] [place] [address], [place] [phone] Mar, [facility] [address] [id number] [address] [place] [address], [place] [address] Mar, [facility] [address] [id number] [address] [place] [address], [place] [address] Feb, [facility] [address] [id number] [address] [place] [address], [place] [id number] Feb, [facility] [address] [id number] [address] [place] [address], [place] [address] Feb, [facility] [address] [id number] [address] [place] [address], [place] [address] Feb, [facility] [address] [id number] [address] [place] [address], [place] [address] Jan, [facility] [address] [id number] [address] [place] [address], [place] [address] Jan, [facility] [address] [id number] [address] [place] [address], [place] [address] Jan, [facility] [address] [id number] [address] [place] [address], [place] [address] Jan, [facility] [address] [id number] [address] [place] [address], [place] [address] Oct, [facility] [address] [id number] [address] [place] [address], [place] [address] Oct, [facility] [address] [id number] [address] [place] [address], [place] [address] Sep, [facility] [address] [id number] [address] [place] [address], [place] [address] Sep, [facility] [address] [id number] [address] [place] [address], [place] [address] Sep, [facility] [address] [id number] [address] [place] [address], [place] [address] Sep, [facility] [address] [id number] [address] [place] [address], [place] [address] Aug, [facility] [address] [id number] [address] [place] [address], [place] [address] Aug, [facility] [address] [id number] [address] [place] [address], [place] [address] Aug, [facility] [address] [id number] [address] [place] [address], [place] [address] Aug, [facility] [address] [id number] [address] [place] [address], [place] [address] Jul, [facility] [address] [id number] [address] [place] [address], [place] [address] Jul, [facility] [address] [id number] [address] [place] [address], [place] [address] Jul, [facility] [address] [id number] [address] [place] [address], [place] [address] 14 Jul, 2013 [facility] [address] [id number] [address] [place] [address], [place] [address] 10 Jul, 2013 [facility] [address] [id number] [address] [place] [address], [place] [address] Jul, [facility] [address] [id number] [address] [place] [address], [place] [address] Jun, [facility] [address] [id number] [address] [place] [address], [place] [address] Jun, [facility] [address] [id number] [address] [place] [address], [place] [address] Jun, [facility] [address] [id number] [address] [place] [address], [place] [address] Jun, [facility] [address] [id number] [address] [place] [address], [place] [address] Jun, [facility] [address] [id number] [address] [place] [address], [place] [address] Jun, [facility] [address] [id number] [address] [place] [address], [place] [address] May, [facility] [address] [id number] [address] [place] [address], [place] [address] May, [facility] [address] [id number] [address] [place] [address], [place] [address] May, [facility] [address] [id number] [address] [place] [address], [place] [address] May, [facility] [address] [id number] [address] [place] [address], [place] [address] May, [facility] [address] [id number] [address] [place] [address], [place] [address] May, [facility] [address] [id number] [address] [place] [address], [place] [address] May, [facility] [address] [id number] [address] [place] [address], [place] [address] May, [facility] [address] [id number] [address] [place] [address], [place] [address] Apr, [facility] [address] [id number] [address] [place] [address], [place] [address] Apr, [facility] [address] [id number] [address] [place] [address], [place] [address] Mar, [facility] [address] [id number] [address] [place] [address], [place] [address] Mar, [facility] [address] [id number] [address] [place] [address], [place] [address] Mar, [facility] [address] [id number] [address] [place] [address], [place] [id number] Mar, [facility] [address] [id number] [address] [place] [address], [place] [id number] Feb, [facility] [address] [id number] [address] [place] [address], [place] [address] Jan, [facility] [address] [id number] [address] [place] [address], [place] [phone] December, [facility] [address] [id number] [address] [place] [address], [place] [address] December, [facility] [address] [id number] [address] [place] [address], [place] [id number] December, [facility] [address] [id number] [address] [place] [address], [place] [address] Nov, [facility] [address] [id number] [address] [place] [address], [place] [address] Nov, [facility] [address] [id number] [address] [place] [address], [place] [address] Sep, [facility] [address] [id number] [address] [place] [address] [place] [id number] 14 Sep, 2012 [facility] [address] [id number] [address] [place] [address], [place] [address] 14 Sep, 2012 [facility] [address] [id number] [address] [place] [address], [place] [id number] 13 Sep, 2012 [facility] [address] [id number] [address] [place] [address], [place] [address] 30 Aug, 2012 [facility] [address] [id number] [address] [place] [address], [place] [address] Aug, [facility] [address] [id number] [address] [place] [address], [place] [address] Aug, [facility] [address] [id number] [address] [place] [address], [place] [phone] Aug, [facility] [address] [id number] [address] [place] [address], [place] [address] Jul, [facility] [address] [id number] [address] [place] [address], [place] [address] Jul, [facility] [address] [id number] [address] [place] [address], [place] [address] Jul, [facility] [address] [id number] [address] [place] [address], [place] [address] Jul, [facility] [address] [id number] [address] [place] [address], [place] [address] Jun, [facility] [address] [id number] [address] [place] [address], [place] [address] Jun, [facility] [address] [id number] [address] [place] [address], [place] [address] Jun, [facility] [address] [id number] [address] [place] [address], [place] [phone] Jun, [facility] [address] [id number] [address] [place] [address], [place] [address] May, [facility] [address] [id number] [address] [place] [address], [place] [address] May, [facility] [address] [id number] [address] [place] [address], [place] [address] May, [facility] [address] [id number] [address] [place] [address], [place] [address] May, [facility] [address] [id number] [address] [place] [address], [place] [address] May, [facility] [address] [id number] [address] [place] [address], [place] [address] 10 Apr, 2012 [facility] [address] [id number] [address] [place] [address], [place] [id number] 08 Apr, 2012 [facility] [address] [id number] [address] [place] [address], [place] [address] 07 Apr, 2012 [facility] [address] [id number] [address] [place] [address], [place] [address] 06 Apr, 2012 [facility] [address] [id number] [address] [place] [address], [place] [address] Mar, [facility] [address] [id number] [address] [place] [address], [place] [address] Mar, [facility] [address] [id number] [address] [place] [address], [place] [address] Feb, [facility] [address] [id number] [address] [place] [address], [place] [address] Feb, [facility] [address] [id number] [address] [place] [address], [place] [address] Feb, [facility] [address] [id number] [address] [place] [address], [place] [address] Jan, [facility] [address] [id number] [address] [place] [address], [place] [address] Jan, [facility] [address] [id number] [address] [place] [address], [place] [address] December, [facility] [address] [id number] [address] [place] [address], [place] [address] December, [facility] [address] [id number] [address] [place] [address], [place] [address] Nov, [facility] [address] [id number] [address] [place] [address], [place] [address] Oct, [facility] [address] [id number] [address] [place] [address], [place] [address] Oct, [facility] [address] [id number] [address] [place] [address], [place] [address] Sep, [facility] [address] [id number] [address] [place] [address], [place] [address] Sep, [facility] [address] [id number] [address] [place] [address], [place] [address] Aug, [facility] [address] [id number] [address] [place] [address], [place] [address] Aug, [facility] [address] [id number] [address] [place] [address], [place] [address] Jul, [facility] [address] [id number] [address] [place] [address], [place] [address] Jul, [facility] [address] [id number] [address] [place] [address], [place] [address] Jul, [facility] [address] [id number] [address] [place] [id number] Jun, [facility] [address] [id number] [address] [place] [address], [place] [address] Jun, [facility] [address] [id number] [address] [place] [address], [place] [address] 13 May, 2011 [facility] [address] [id number] [address] [place] [address], [place] [address] May, [facility] [address] [id number] [address] [place] [id number] May, [facility] [address] [id number] [address] [place] [id number] Jul, [facility] [address] [id number] [address] [place] [id number] Jul, [facility] [address] [id number] [address] [place] [phone] Jun, [facility] [address] [id number] [address] [place] [phone] May, [facility] [address] [id number] [address] [place] [phone] May, [facility] [address] [id number] [address] [place] [phone] Aug, [facility] [address] [id number] [address] [place] [phone] Jul, [facility] [address] [id number] [address] [place] [id number] Jun, [facility] [address] [id number] [address] [place] [phone] Jun, [facility] [address] [id number] [address] [place] [id number] Jun, [facility] [address] [id number] [address] [place] [id number] Jun, [facility] [address] [id number] [address] [place] [phone] Jun, [facility] [address] [id number] [address] [place] [phone] May, [facility] [address] [id number] [address] [place] [phone] Sep, IMMUNIZATIONS No Known Immunizations SOCIAL HISTORY Never Assessed REASON FOR VISIT Controlled Med Refill 7/17/18 PLAN OF CARE VITAL SIGNS MEDICATIONS Medication [...]
--- OUTSIDE RECORDS SUMMARY | 2020-01-28 14:40 | XMS REPORT ---
Author Author Katarina RODRIGUEZ Organization [facility] Address [address] [place] [address] Care Team Providers Care Environmental Services Attendant Name Role Phone GEORGINA RODRIGUEZ Unavailable PROBLEMS Type Condition ICD9-CM Code AFZ77-VK Code Onset Dates Condition S tatus SNOMED Code Problem Encounter for immunization Z23 Act essie 018221825 Problem Urinary incontinence, unspecified type R32 Active 730948104 Problem History of cataract surgery Z98.49 Ac tive 886163751 Problem Chronic atrial fibrillation I48.2 Ac tive 390155269 Problem Essential hypertension I10 Active 23134286 Problem Morbid obesity, unspecified obesity type E66.01 Active 278961331 Problem jail (current) use of anticoagulants Z79.01 Active 805305417 Problem Other urinary incontinence N39.498 Act essie 959108904 Problem Irregular heart beats I49.9 Active 851217135 Problem Eye exam normal Z01.00 Active 2438 20185 Problem Cigarette nicotine dependence without complication F17.210 Active 22734597 Problem Acquired hypothyroidism E03.9 Active 127328993 Problem Abnormal mammogram R92.8 Active 1 20860395 Problem High risk medication use Z79.899 Activ e 406283088 Problem Osteoarthritis M19.90 Active 25892 5006 Problem Diabetes E11.9 Active 456574911 ALLERGIES No Information ENCOUNTERS Encounter Location Date Diagnosis [facility] [address] [facility] [id number] [address] [place] [phone] May, [facility] [address] [facility] [id number] [address] [place] [address] 13 Apr, 2018 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 [facility] [address] [facility] [id number] [address] [place] [address] 07 Apr, 2018 Osteoarthritis M19.90 [facility] [address] [facility] [id number] [address] [place] [address] Apr, jail (current) use of a nticoagulants Z79.01 and Chronic atrial fibrillation I48.2 [facility] [address] [facility] [id number] [address] [place] [id number] 10 Mar, 2018 Osteoarthritis M19.90 [facility] [address] [facility] [id number] [address] [place] [address] Feb, Osteoarthritis M19.90 [facility] [address] [facility] [id number] [address] [place] [address] Jan, Osteoarthritis M19.90 [facility] [address] [place] [id number] [address] [place] [address] December, [facility] [address] [place] [id number] [address] [place] [address] December, Osteoarthritis M19.90 [facility] [address] [place] [id number] [address] [place] [address] Nov, Diabetes E11.9 ; 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.01 ; Acquired hypothyroidism E03.9 ; Cigarette nicotine dependence without complication F17.210 ; Osteoarthritis M19.90 ; BMI 45.0-49.9, adult Z68.42 and Chronic atrial fibrillation I48.2 [facility] [address] [facility] [id number] [address] [place] [address] Nov, Osteoarthritis M19.90 [facility] [address] [facility] [id number] [address] [place] [address] Oct, Osteoarthritis M19.90 [facility] [address] [place] [id number] [address] [place] [phone] Oct, 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 [facility] [address] [facility] [id number] [address] [place] [address] Sep, Osteoarthritis M19.90 [facility] [address] [facility] [id number] [address] [place] [address] Sep, [facility] [address] [facility] [id number] [address] [place] [address] Aug, Osteoarthritis M19.90 [facility] [address] [facility] [id number] [address] [place] [address] Jul, Osteoarthritis M19.90 [facility] [address] [facility] [id number] [address] [place] [address] Jul, Osteoarthritis M19.90 [facility] [address] [facility] [id number] [address] [place] [address] Jun, Diabetes E11.9 ; Encounter f or immunization Z23 ; jail (current) use of anticoagulants Z79.01 ; Chronic atrial fibrillation I48.2 ; Osteoarthritis M19.90 ; Tobacco abuse Z72.0 and Bug bite, initial encounter W57.XXXA [facility] [address] [facility] [id number] [address] [place] [address] May, Osteoarthritis M19.90 [facility] [address] [facility] [id number] [address] [place] [address] Apr, Osteoarthritis M19.90 [facility] [address] [facility] [id number] [address] [place] [address] Mar, Chronic atrial fibrillation I48.2 [facility] [address] [facility] [id number] [address] [place] [address] Mar, [facility] [address] [facility] [id number] [address] [place] [address] Mar, Osteoarthritis M19.90 [facility] [address] [facility] [id number] [address] [place] [address] Mar, jail (current) use of a nticoagulants Z79.01 and Chronic atrial fibrillation I48.2 [facility] [address] [facility] [id number] [address] [place] [address] Mar, Chronic atrial fibrillation I48.2 and 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 [facility] [address] [id number] [address] [place] [address] Mar, 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 [facility] [address] [id number] [address] [place] [address] Mar, 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 [facility] [address] [id number] [address] [place] [address] Mar, Osteoarthritis M19.90 [facility] [address] [id number] [address] [place] [address] Feb, Encounter for screening mamm ogram for malignant neoplasm of breast Z12.31 [facility] [address] [id number] [address] [place] [address] Feb, Osteoarthritis M19.90 [facility] [address] [id number] [address] [place] [phone] Jan, [facility] [address] [id number] [address] [place] [address] Jan, jail (current) use of a nticoagulants Z79.01 ; Diabetes E11.9 ; Osteoarthritis M19.90 and Breast cancer screening Z12.39 [facility] [address] [id number] [address] [place] [address] Jan, Osteoarthritis M19.90 [facility] [address] [id number] [address] [place] [address] Jan, Osteoarthritis M19.90 [facility] [address] [id number] [address] [place] [address] Jan, [facility] [address] [facility] [id number] [address] [place] [address] December, Osteoarthritis M19.90 [facility] [address] [id number] [address] [place] [address] December, Osteoarthritis M19.90 [facility] [address] [id number] [place] [id number] Nov, [facility] [address] [id number] [address] [place] [address] Nov, [facility] [address] [id number] [address] [place] [address] Nov, [facility] [address] [id number] [address] [place] [address] Nov, Diabetes E11.9 [facility] [address] [id number] [address] [place] [address] Nov, [facility] [address] [id number] [address] [place] [address] Oct, Osteoarthritis M19.90 [facility] [address] [id number] [address] [place] [address] Oct, Osteoarthritis M19.90 ; 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 ; Diabetes E11.9 ; Cigarette nicotine dependence without complication F17.210 and Chronic atrial fibrillation I48.2 [facility] [address] [id number] [address] [place] [address] Aug, [facility] [address] [id number] [address] [place] [address] Aug, jail (current) use of a nticoagulants Z79.01 [facility] [address] [id number] [address] [place] [address] Aug, [facility] [address] [id number] [place] [id number] Aug, [facility] [address] [id number] [address] [place] [address] Aug, [facility] [address] [id number] [address] [place] [phone] Aug, [facility] [id number] [place] [id number] Aug, [facility] [address] [place] [id number] Aug Osteoarthritis M19.90 and Essential hypertension I10 [place] [address] [place] [id number] [address] [place] [address] Aug, Other urinary incontinence N 39.498 [place] [address] [address] Jul, Osteoarthritis M19.90 [place] [address] [address] Jun, Diabetes E11.9 ; Encounter f or immunization Z23 ; Osteoarthritis M19.90 ; 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 ; Cigarette nicotine dependence without complication F17.210 ; Acquired hypothyroidism E03.9 ; Morbid obesity, unspecified obesity type E66.01 and Irregular heart beats I49.9 [place] [address] [place] [id number] [address] [place] [address] Jun, Osteoarthritis M19.90 [place] [address] [address] May, Osteoarthritis M19.90 [place] [address] [place] [id number] [address] [place] [address] May, Urinary incontinence, unspec ified type R32 [place] [address] [place] [id number] [address] [place] [address] May, [place] [address] [place] [id number] [address] [place] [address] Apr, Osteoarthritis M19.90 [place] [address] [address] Apr, jail (current) use of a nticoagulants Z79.01 [facility] [address] [place] [id number] [address] [place] [address] Apr, [place] [address] [place] [address] Apr, Osteoarthritis M19.90 [facility] [address] [place] [id number] [address] [place] [address] Mar, Diabetes E11.9 ; Hypothyroid ism, unspecified type E03.9 ; Osteoarthritis M19.90 ; High risk medication use Z79.899 ; Cigarette nicotine dependence without complication F17.210 and Morbid obesity, unspecified obesity type E66.01 [facility] [address] [facility] [id number] [address] [place] [address] Mar, Osteoarthritis M19.90 [facility] [address] [facility] [id number] [address] [place] [address] December, Osteoarthritis M19.90 [facility] [address] [facility] [id number] [address] [place] [address] December, [facility] [address] [place] [id number] [address] [place] [phone] Oct, [facility] [address] [facility] [id number] [address] [place] [phone] Oct, [facility] [address] [place] [id number] [address] [place] [phone] Aug, [facility] [address] [place] [id number] [address] [place] [address] Jul, [facility] [address] [place] [id number] [address] [place] [id number] Jul, [facility] [address] [facility] [id number] [address] [place] [address] Jul, Diabetes E11.9 ; Encounter f or immunization Z23 ; Abnormal mammogram R92.8 ; Acquired hypothyroidism E03.9 ; High risk medication use Z79.899 ; Osteoarthritis M19.90 and Cigarette nicotine dependence without complication F17.210 [facility] [address] [place] [id number] [address] [place] [address] Jul, [facility] [address] [facility] [id number] [address] [place] [phone] Jun, Abnormal mammogram R92.8 [facility] [address] [id number] [address] [place] [phone] Apr, [facility] [address] [id number] [address] [place] [address] Apr, [facility] [address] [id number] [address] [place] [phone] Mar, [facility] [address] [id number] [address] [place] [address] Mar, 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 [facility] [address] [id number] [address] [place] [phone] Feb, [facility] [address] [id number] [address] [place] [address] Jan, [facility] [address] [id number] [address] [place] [phone] December, [facility] [address] [id number] [address] [place] [address] Nov, [facility] [address] [id number] [address] [place] [phone] Nov, [facility] [address] [id number] [address] [place] [phone] Oct, [facility] [address] [id number] [address] [place] [phone] Oct, [facility] [address] [id number] [address] [place] [phone] Oct, [facility] [address] [id number] [address] [place] [phone] 17 Oct, 2014 [facility] [address] [id number] [address] [place] [phone] 16 Oct, 2014 [facility] [place] [facility] [address] [id number] [address] [place] [address], [place] [address] Oct, [facility] [address] [id number] [address] [place] [address], [place] [address] Sep, [facility] [address] [id number] [address] [place] [address], [place] [address] Sep, [facility] [address] [id number] [address] [place] [address], [place] [address] Sep, [facility] [address] [id number] [address] [place] [address], [place] [address] Sep, [facility] [address] [id number] [address] [place] [address], [place] [address] Aug, [facility] [address] [id number] [address] [place] [address], [place] [address] Aug, [facility] [address] [id number] [address] [place] [address], [place] [address] Aug, [facility] [address] [id number] [address] [place] [address], [place] [address] Aug, [facility] [address] [id number] [address] [place] [address], [place] [address] Aug, [facility] [address] [id number] [address] [place] [address], [place] [address] Aug, [facility] [address] [id number] [address] [place] [address], [place] [address] Jul, [facility] [address] [id number] [address] [place] [address], [place] [address] Jul, [facility] [place] [facility] [address] [id number] [address] [place] [address], [place] [address] Jul, [facility] [place] [facility] [address] [id number] [address] [place] [address], [place] [address] Jul, [facility] [place] [facility] [address] [id number] [address] [address] Jul, [facility] [place] [facility] [address] [id number] [address] [place] [address], [place] [address] Jul, [facility] [place] [facility] [address] [id number] [address] [place] [address], [place] [address] Jun, [facility] [place] [facility] [address] [id number] [address] [place] [address], [place] [address] Jun, [facility] [place] [facility] [address] [id number] [address] [place] [phone] Jun, [facility] [place] [facility] [address] [id number] [address] [place] [address], [place] [address] Jun, [facility] [place] [facility] [address] [id number] [address] [place] [phone] Jun, [facility] [place] [facility] [address] [id number] [address] [place] [address], [place] [address] Jun, [facility] [place] [facility] [address] [id number] [address] [place] [address], [place] [address] Jun, [facility] [place] [facility] [address] [id number] [address] [place] [address], [place] [address] Jun, [facility] [place] [facility] [address] [id number] [address] [place] [address], [place] [address] Jun, [facility] [place] [facility] [address] [id number] [address] [place] [address] May, [facility] [place] [facility] [address] [id number] [address] [place] [address] May, [facility] [place] [facility] [address] [id number] [address] [place] [address], [place] [address] Apr, [facility] [place] [facility] [address] [id number] [address] [place] [address], [place] [address] Apr, [facility] [place] [facility] [address] [id number] [address] [place] [phone] Apr, [facility] [place] [facility] [address] [id number] [facility] [place] [address] Apr, 2013 [facility] [address] [id number] [facility] [place] [address] Apr, 2013 [facility] [address] [id number] [facility] [place] [address] Apr, 2013 [facility] [address] [id number] [address] [place] [address], [place] [address] Apr, 2013 [facility] [address] [id number] [address] [place] [address], [place] [address] Apr, 2013 [facility] [address] [id number] [address] [place] [address], [place] [address] Apr, [facility] [address] [id number] [address] [place] [address], [place] [address] Apr, [facility] [address] [id number] [address] [place] [address], [place] [address] Mar, [facility] [address] [id number] [address] [place] [address], [place] [address] Mar, [facility] [address] [id number] [address] [place] [address], [place] [address] Mar, [facility] [address] [id number] [address] [place] [address], [place] [address] Mar, [facility] [place] [facility] [address] [id number] [address] [place] [address], [place] [address] Mar, [facility] [address] [id number] [address] [place] [address], [place] [address] Mar, [facility] [place] [facility] [address] [id number] [address] [place] [address], [place] [address] Feb, [facility] [place] [facility] [address] [id number] [address] [place] [address], [place] [address] Feb, [facility] [address] [id number] [address] [place] [address], [place] [address] Feb, [facility] [address] [id number] [address] [place] [address], [place] [address] Feb, [facility] [address] [id number] [address] [place] [address], [place] [id number] Jan, [facility] [address] [id number] [address] [place] [address], [place] [address] Jan, [facility] [address] [id number] [address] [place] [address], [place] [address] Jan, [facility] [address] [id number] [address] [place] [address], [place] [id number] Jan, [facility] [address] [id number] [address] [place] [address], [place] [address] Oct, [facility] [address] [id number] [address] [place] [address], [place] [id number] Oct, [facility] [address] [id number] [address] [place] [address], [place] [address] Sep, [facility] [address] [id number] [address] [place] [address], [place] [id number] Sep, [facility] [address] [id number] [address] [place] [address], [place] [id number] Sep, [facility] [address] [id number] [address] [place] [address], [place] [address] Sep, [facility] [address] [id number] [address] [place] [address], [place] [address] Aug, [facility] [address] [id number] [address] [place] [address], [place] [address] Aug, [facility] [address] [id number] [address] [place] [address], [place] [address] Aug, [facility] [address] [id number] [address] [place] [address], [place] [address] Aug, [facility] [address] [id number] [address] [place] [address], [place] [id number] 30 Jul, 2013 [facility] [address] [id number] [address] [place] [address], [place] [address] 30 Jul, 2013 [facility] [address] [id number] [address] [place] [address], [place] [address] Jul, [facility] [address] [id number] [address] [place] [address], [place] [id number] 14 Jul, 2013 [facility] [address] [id number] [address] [place] [address], [place] [address] Jul, [facility] [address] [id number] [address] [place] [address], [place] [address] Jul, [facility] [address] [id number] [address] [place] [address], [place] [id number] Jun, [facility] [address] [id number] [address] [place] [address], [place] [address] Jun, [facility] [address] [id number] [address] [place] [address], [place] [address] Jun, [facility] [address] [id number] [address] [place] [address], [place] [id number] Jun, [facility] [address] [id number] [address] [place] [address], [place] [address] Jun, [facility] [address] [id number] [address] [place] [address], [place] [address] Jun, [facility] [address] [id number] [address] [place] [address], [place] [address] May, [facility] [address] [id number] [address] [place] [address], [place] [address] May, [facility] [address] [id number] [address] [place] [address], [place] [id number] May, [facility] [address] [id number] [address] [place] [address], [place] [address] May, [facility] [address] [id number] [address] [place] [address], [place] [id number] May, [facility] [address] [id number] [address] [place] [address], [place] [id number] May, [facility] [address] [id number] [address] [place] [address], [place] [address] May, [facility] [address] [id number] [address] [place] [address], [place] [address] May, [facility] [address] [id number] [address] [place] [address], [place] [id number] Apr, [facility] [address] [id number] [address] [place] [address], [place] [address] Apr, [facility] [address] [id number] [address] [place] [address], [place] [address] Mar, [facility] [address] [id number] [address] [place] [address], [place] [id number] Mar, [facility] [address] [id number] [address] [place] [address], [place] [address] Mar, [facility] [address] [id number] [address] [place] [address], [place] [id number] Mar, [facility] [address] [id number] [address] [place] [address], [place] [address] Feb, [facility] [address] [id number] [address] [place] [address], [place] [address] Jan, [facility] [address] [id number] [address] [place] [address], [place] [address] December, [facility] [address] [id number] [address] [place] [address], [place] [id number] December, [facility] [address] [id number] [address] [place] [address], [place] [address] December, [facility] [address] [id number] [address] [place] [address], [place] [address] Nov, [facility] [address] [id number] [address] [place] [address], [place] [address] Nov, [facility] [address] [id number] [address] [place] [address], [place] [id number] 14 Sep, 2012 [facility] [address] [id number] [address] [place] [address], [place] [address] Sep, [facility] [address] [id number] [address] [place] [address], [place] [address] Sep, [facility] [address] [id number] [address] [place] [address], [place] [id number] Sep, [facility] [address] [id number] [address] [place] [address], [place] [address] Aug, [facility] [address] [id number] [address] [place] [address], [place] [address] Aug, [facility] [address] [id number] [address] [place] [address], [place] [address] Aug, [facility] [address] [id number] [address] [place] [address], [place] [address] Aug, [facility] [address] [id number] [address] [place] [address], [place] [address] Jul, [facility] [address] [id number] [address] [place] [address], [place] [address] Jul, [facility] [address] [id number] [address] [place] [address], [place] [address] Jul, [facility] [address] [id number] [address] [place] [address], [place] [address] Jul, [facility] [address] [id number] [address] [place] [address], [place] [address] Jun, [facility] [address] [id number] [address] [place] [address], [place] [address] Jun, [facility] [address] [id number] [address] [place] [address], [place] [address] 08 Jun, 2012 [facility] [address] [id number] [address] [place] [address], [place] [address] Jun, [facility] [address] [id number] [address] [place] [address], [place] [address] May, [facility] [address] [id number] [address] [place] [address], [place] [address] May, [facility] [address] [id number] [address] [place] [address], [place] [address] May, [facility] [address] [id number] [address] [place] [address], [place] [address] May, [facility] [address] [id number] [address] [place] [address], [place] [address] May, [facility] [address] [id number] [address] [place] [address], [place] [address] 10 Apr, 2012 [facility] [address] [id number] [address] [place] [address], [place] [address] 08 Apr, 2012 [facility] [address] [id number] [address] [place] [address], [place] [address] 07 Apr, 2012 [facility] [address] [id number] [address] [place] [address], [place] [address] 06 Apr, 2012 [facility] [address] [id number] [address] [place] [address], [place] [address] Mar, [facility] [address] [id number] [address] [place] [address], [place] [address] Mar, [facility] [address] [id number] [address] [place] [address], [place] [address] Feb, [facility] [address] [id number] [address] [place] [address], [place] [address] Feb, [facility] [address] [id number] [address] [place] [address], [place] [address] Feb, [facility] [address] [id number] [address] [place] [address], [place] [address] Jan, [facility] [address] [id number] [address] [place] [address], [place] [address] Jan, [facility] [address] [id number] [address] [place] [address], [place] [address] December, [facility] [address] [id number] [address] [place] [address], [place] [address] December, [facility] [address] [id number] [address] [place] [address], [place] [address] Nov, [facility] [address] [id number] [address] [place] [address], [place] [address] Oct, [facility] [address] [id number] [address] [place] [address], [place] [address] Oct, [facility] [address] [id number] [address] [place] [address], [place] [address] Sep, [facility] [address] [id number] [address] [place] [address], [place] [address] Sep, [facility] [address] [id number] [address] [place] [address], [place] [address] Aug, [facility] [address] [id number] [address] [place] [address], [place] [address] Aug, [facility] [address] [id number] [address] [place] [address], [place] [address] Jul, [facility] [address] [id number] [address] [place] [address], [place] [address] Jul, [facility] [address] [id number] [address] [place] [address], [place] [address] Jul, [facility] [address] [id number] [address] [place] [address], [place] [address] Jun, [facility] [address] [id number] [address] [place] [address], [place] [address] 07 Jun, 2011 [facility] [address] [id number] [address] [place] [address], [place] [address] 13 May, 2011 [facility] [address] [id number] [address] [place] [address], [place] [address] 11 May, 2011 [facility] [address] [id number] [address] [place] [address], [place] [address] 11 May, 2011 [facility] [address] [id number] [address] [place] [address], [place] [address] 09 Jul, 2010 [facility] [address] [id number] [address] [place] [address], [place] [address] 08 Jul, 2010 [facility] [address] [id number] [address] [place] [address], [place] [address] 15 Jun, 2010 [facility] [address] [id number] [address] [place] [address], [place] [address] May, [facility] [address] [id number] [address] [place] [address], [place] [address] May, [facility] [address] [id number] [address] [place] [address], [place] [address] 14 Aug, 2009 [facility] [address] [id number] [address] [place] [address], [place] [address] 17 Jul, 2009 [facility] [address] [id number] [address] [place] [address], [place] [address] Jun, [facility] [address] [id number] [address] [place] [address], [place] [address] Jun, [facility] [address] [id number] [address] [place] [address], [place] [address] Jun, [facility] [address] [id number] [address] [place] [address], [place] [address] Jun, [facility] [address] [id number] [address] [place] [address], [place] [address] Jun, [facility] [address] [facility] [id number] [address] [place] [id number] May, [facility] [address] [facility] [id number] [address] [place] [id number] Sep, IMMUNIZATIONS No Known Immunizations SOCIAL HISTORY Never Assessed REASON FOR VISIT Controlled Med Refill 03/23/18 PLAN OF CARE VITAL SIGNS MEDICATIONS Medication [...]
--- OUTSIDE RECORDS SUMMARY | 2020-01-28 14:40 | XMS REPORT ---
Author Author Katarina RODRIGUEZ Organization [facility] Address [address] [place] [address] Care Team Providers Care Parent Partner Name Role Phone GEORGINA RODRIGUEZ Unavailable PROBLEMS Type Condition ICD9-CM Code JBL92-SF Code Onset Dates Condition S tatus SNOMED Code Problem Encounter for immunization Z23 Act essie 371913633 Problem Urinary incontinence, unspecified type R32 Active 356058028 Problem History of cataract surgery Z98.49 Ac tive 187621687 Problem Chronic atrial fibrillation I48.2 Ac tive 943722282 Problem Essential hypertension I10 Active 57229273 Problem Morbid obesity, unspecified obesity type E66.01 Active 189340814 Problem alf (current) use of anticoagulants Z79.01 Active 336816060 Problem Other urinary incontinence N39.498 Act essie 102313335 Problem Irregular heart beats I49.9 Active 541274350 Problem Eye exam normal Z01.00 Active 2438 69539 Problem Cigarette nicotine dependence without complication F17.210 Active 72244975 Problem Acquired hypothyroidism E03.9 Active 264614483 Problem Abnormal mammogram R92.8 Active 1 95484984 Problem High risk medication use Z79.899 Activ e 187755335 Problem Osteoarthritis M19.90 Active 72099 5006 Problem Diabetes E11.9 Active 587732954 ALLERGIES No Information ENCOUNTERS Encounter Location Date Diagnosis [facility] [address] [facility] [id number] [address] [place] [phone] May, [facility] [address] [facility] [id number] [address] [place] [id number] 20 Apr, 2018 Chronic atrial fibrillation I48.2 [facility] [address] [facility] [id number] [address] [place] [id number] 13 Apr, 2018 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 Z79.01 [facility] [address] [facility] [id number] [address] [place] [address] 07 Apr, 2018 Osteoarthritis M19.90 [facility] [address] [facility] [id number] [address] [place] [address] 04 Apr, 2018 alf (current) use of a nticoagulants Z79.01 and Chronic atrial fibrillation I48.2 [facility] [address] [facility] [id number] [address] [place] [address] Mar, Osteoarthritis M19.90 [facility] [address] [facility] [id number] [address] [place] [address] Feb, Osteoarthritis M19.90 [facility] [address] [facility] [id number] [address] [place] [address] Jan, Osteoarthritis M19.90 [facility] [address] [facility] [id number] [address] [place] [address] December, [facility] [address] [facility] [id number] [address] [place] [address] December, Osteoarthritis M19.90 [facility] [address] [facility] [id number] [address] [place] [address] Nov, Diabetes E11.9 ; 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 care 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 ( 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 Z79.01 ; Acquired hypothyroidism E03.9 ; Cigarette nicotine dependence without complication F17.210 ; Osteoarthritis M19.90 ; BMI 45.0-49.9, adult Z68.42 and Chronic atrial fibrillation I48.2 [facility] [address] [facility] [id number] [address] [place] [address] Nov, Osteoarthritis M19.90 [facility] [address] [facility] [id number] [address] [place] [address] Oct, Osteoarthritis M19.90 [facility] [address] [facility] [id number] [address] [place] [address] Oct, alf (current) use of a nticoagulants Z79.01 [facility] [address] [facility] [id number] [address] [place] [address] Sep, Osteoarthritis M19.90 [facility] [address] [facility] [id number] [address] [place] [address] Sep, [facility] [address] [place] [id number] [address] [place] [address] Aug, Osteoarthritis M19.90 [facility] [address] [address] Jul, Osteoarthritis M19.90 [facility] [address] [address] Jul, Osteoarthritis M19.90 [facility] [address] [address] Jun, Diabetes E11.9 ; Encounter f or immunization Z23 ; alf (current) use of anticoagulants Z79.01 ; Chronic atrial fibrillation I48.2 ; Osteoarthritis M19.90 ; Tobacco abuse Z72.0 and Bug bite, initial encounter W57.XXXA [facility] [address] [address] May, Osteoarthritis M19.90 [facility] [address] [address] Apr, Osteoarthritis M19.90 [facility] [address] [address] Mar, Chronic atrial fibrillation I48.2 [facility] [address] [place] [id number] [address] [place] [address] Mar, [facility] [address] [place] [id number] [address] [place] [address] Mar, Osteoarthritis M19.90 [facility] [address] [place] [id number] [address] [place] [address] Mar, alf (current) use of a nticoagulants Z79.01 and Chronic atrial fibrillation I48.2 [facility] [address] [place] [id number] [address] [place] [address] Mar, Chronic atrial fibrillation I48.2 and 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.01 [facility] [address] [id number] [address] [place] [address] Mar, alf (current) use of a nticoagulants Z79.01 [facility] [address] [id number] [address] [place] [address] Mar, alf (current) use of a nticoagulants Z79.01 [facility] [address] [id number] [address] [place] [address] Mar, Osteoarthritis M19.90 [place] [address] [facility] [id number] [address] [place] [address] Feb, Encounter for screening mamm ogram for malignant neoplasm of breast Z12.31 [place] [id number] [id number] [address] [place] [address] Feb, Osteoarthritis M19.90 [facility] [address] [id number] [address] [place] [address] Jan, [place] [address] [facility] [id number] [address] [place] [address] Jan, 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 Z79.01 ; Diabetes E11.9 ; Osteoarthritis M19.90 and Breast cancer screening Z12.39 [facility] [address] [id number] [address] [place] [address] Jan, Osteoarthritis M19.90 [facility] [address] [id number] [address] [place] [address] Jan, Osteoarthritis M19.90 [facility] [address] [facility] [id number] [address] [place] [address] Jan, [facility] [address] [facility] [id number] [address] [place] [address] December, Osteoarthritis M19.90 [facility] [address] [id number] [address] [place] [address] December, Osteoarthritis M19.90 [facility] [address] [id number] [id number] Nov, [facility] [address] [id number] [address] [place] [phone] Nov, [facility] [address] [id number] [address] [place] [address] Nov, [facility] [address] [id number] [address] [place] [address] Nov, Diabetes E11.9 [facility] [address] [id number] [address] [place] [address] Nov, [facility] [address] [id number] [address] [place] [address] Oct, Osteoarthritis M19.90 [facility] [address] [id number] [address] [place] [address] Oct, Osteoarthritis M19.90 ; 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.01 ; Diabetes E11.9 ; Cigarette nicotine dependence without complication F17.210 and Chronic atrial fibrillation I48.2 [facility] [address] [id number] [address] [place] [address] Aug, [facility] [address] [id number] [address] [place] [address] Aug, 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 Z79.01 [facility] [address] [id number] [address] [place] [address] Aug, [facility] [address] [id number] [place] [id number] Aug, [facility] [address] [id number] [address] [place] [address] Aug, [facility] [id number] [place] [address] Aug, [facility] [place] [address] [place] [id number] [place] [id number] Aug, [facility] [address] [place] [id number] Aug Osteoarthritis M19.90 and Essential hypertension I10 [place] [address] [address] Aug, Other urinary incontinence N 39.498 [facility] [address] [place] [id number] [address] [place] [address] Jul, Osteoarthritis M19.90 [place] [address] [address] Jun, Diabetes E11.9 ; Encounter f or immunization Z23 ; Osteoarthritis M19.90 ; alf (current) use of anticoagulants Z79.01 ; Cigarette nicotine dependence without complication F17.210 ; Acquired hypothyroidism E03.9 ; Morbid obesity, unspecified obesity type E66.01 and Irregular heart beats I49.9 [facility] [address] [address] Jun, Osteoarthritis M19.90 [facility] [address] [address] May, Osteoarthritis M19.90 [facility] [address] [address] May, Urinary incontinence, unspec ified type R32 [facility] [address] [facility] [id number] [address] [place] [address] May, [facility] [address] [place] [id number] [address] [place] [address] Apr, Osteoarthritis M19.90 [facility] [address] [place] [id number] [address] [place] [address] Apr, alf (current) use of a nticoagulants Z79.01 [facility] [address] [facility] [id number] [address] [place] [address] Apr, [facility] [address] [facility] [id number] [address] [place] [id number] Apr, Osteoarthritis M19.90 [facility] [address] [facility] [id number] [address] [place] [address] Mar, Diabetes E11.9 ; Hypothyroid ism, unspecified type E03.9 ; Osteoarthritis M19.90 ; High risk medication use Z79.899 ; Cigarette nicotine dependence without complication F17.210 and Morbid obesity, unspecified obesity type E66.01 [facility] [address] [facility] [id number] [address] [place] [address] Mar, Osteoarthritis M19.90 [facility] [address] [facility] [id number] [address] [place] [address] December, Osteoarthritis M19.90 [facility] [address] [facility] [id number] [address] [place] [address] December, [facility] [address] [facility] [id number] [address] [place] [address] Oct, [facility] [address] [facility] [id number] [address] [place] [address] Oct, [facility] [address] [facility] [id number] [address] [place] [address] Aug, [facility] [address] [facility] [id number] [address] [place] [address] Jul, [facility] [address] [facility] [id number] [address] [place] [id number] Jul, [facility] [address] [facility] [id number] [address] [place] [address] Jul, Diabetes E11.9 ; Encounter f or immunization Z23 ; Abnormal mammogram R92.8 ; Acquired hypothyroidism E03.9 ; High risk medication use Z79.899 ; Osteoarthritis M19.90 and Cigarette nicotine dependence without complication F17.210 [facility] [address] [id number] [address] [place] [address] Jul, [facility] [address] [id number] [address] [place] [address] Jun, Abnormal mammogram R92.8 [facility] [address] [id number] [address] [place] [address] Apr, [facility] [address] [id number] [address] [place] [id number] Apr, [facility] [address] [id number] [address] [place] [id number] Mar, [facility] [address] [id number] [address] [place] [address] Mar, Current use of shelter ant 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 V58.61 [facility] [address] [id number] [address] [place] [address] Feb, [facility] [address] [id number] [address] [place] [address] Jan, [facility] [address] [id number] [address] [place] [address] December, [facility] [address] [id number] [address] [place] [address] Nov, [facility] [address] [id number] [address] [place] [address] Nov, [facility] [address] [id number] [address] [place] [address] Oct, [facility] [address] [id number] [address] [place] [id number] Oct, [facility] [address] [id number] [address] [place] [address] Oct, [facility] [address] [id number] [address] [place] [phone] Oct, [facility] [address] [id number] [address] [place] [address], [place] [address] Oct, [facility] [address] [id number] [address] [place] [address], [place] [address] Oct, [facility] [address] [id number] [address] [place] [address], [place] [address] Sep, [facility] [address] [id number] [address] [place] [address], [place] [address] Sep, [facility] [address] [id number] [address] [place] [address], [place] [address] Sep, [facility] [address] [id number] [address] [place] [address], [place] [address] Sep, [facility] [address] [id number] [address] [place] [address], [place] [address] Aug, [facility] [address] [id number] [address] [place] [address], [place] [address] Aug, [facility] [address] [id number] [address] [place] [address], [place] [address] Aug, [facility] [address] [id number] [address] [place] [address], [place] [address] Aug, [facility] [address] [id number] [address] [place] [address], [place] [address] Aug, [facility] [address] [id number] [address] [place] [address] Aug, [facility] [address] [id number] [address] [place] [address], [place] [address] Jul, [facility] [address] [id number] [address] [place] [address], [place] [address] Jul, [facility] [address] [id number] [address] [place] [address], [place] [address] Jul, [facility] [address] [id number] [address] [place] [address], [place] [address] Jul, [facility] [address] [id number] [address] [place] [address], [place] [address] Jul, [facility] [address] [id number] [address] [place] [address], [place] [address] Jul, [facility] [address] [id number] [address] [place] [address], [place] [address] Jun, [facility] [address] [id number] [address] [place] [address], [place] [address] Jun, [facility] [address] [id number] [address] [place] [address], [place] [address] Jun, [facility] [address] [id number] [address] [place] [address], [place] [address] Jun, [facility] [address] [id number] [address] [place] [address], [place] [address] Jun, [facility] [address] [id number] [address] [place] [address], [place] [address] Jun, [facility] [address] [id number] [address] [place] [address], [place] [address] Jun, [facility] [address] [id number] [address] [place] [address], [place] [address] Jun, [facility] [address] [id number] [address] [place] [address], [place] [address] Jun, [facility] [address] [id number] [address] [place] [address] May, [facility] [address] [id number] [address] [place] [address], [place] [address] May, [facility] [address] [id number] [address] [place] [address], [place] [address] Apr, [facility] [address] [id number] [address] [place] [address], [place] [address] Apr, [facility] [address] [id number] [facility] [place] [address] Apr, 2013 [facility] [address] [id number] [facility] [place] [address] Apr, 2013 [facility] [address] [id number] [facility] [place] [address] Apr, 2013 [facility] [address] [id number] [address] [place] [address], [place] [address] Apr, 2013 [facility] [address] [id number] [address] [place] [address], [place] [address] Apr, 2013 [facility] [address] [id number] [address] [place] [address], [place] [address] Apr, 2013 [facility] [address] [id number] [address] [place] [address], [place] [address] Apr, [facility] [address] [id number] [address] [place] [address], [place] [address] Apr, [facility] [address] [id number] [address] [place] [address], [place] [address] Mar, [facility] [address] [id number] [address] [place] [address], [place] [address] Mar, [facility] [address] [id number] [address] [place] [address], [place] [address] Mar, [facility] [address] [id number] [address] [place] [address], [place] [address] Mar, [facility] [address] [id number] [address] [place] [address], [place] [address] Mar, [facility] [address] [id number] [address] [place] [address], [place] [address] Mar, [facility] [address] [id number] [address] [place] [address], [place] [address] Feb, [facility] [address] [id number] [address] [place] [address], [place] [address] Feb, [facility] [address] [id number] [address] [place] [address], [place] [address] Feb, [facility] [address] [id number] [address] [place] [address], [place] [address] Feb, [facility] [address] [id number] [address] [place] [address], [place] [address] Jan, [facility] [address] [id number] [address] [place] [address], [place] [address] Jan, [facility] [address] [id number] [address] [place] [address], [place] [address] Jan, [facility] [address] [id number] [address] [place] [address], [place] [address] Jan, [facility] [address] [id number] [address] [place] [address], [place] [address] Oct, [facility] [address] [id number] [address] [place] [address], [place] [address] Oct, [facility] [address] [id number] [address] [place] [address], [place] [address] Sep, [facility] [address] [id number] [address] [place] [address], [place] [address] Sep, [facility] [address] [id number] [address] [place] [address], [place] [address] Sep, [facility] [address] [id number] [address] [place] [address], [place] [address] Sep, [facility] [address] [id number] [address] [place] [address], [place] [address] Aug, [facility] [address] [id number] [address] [place] [address], [place] [address] Aug, [facility] [address] [id number] [address] [place] [address], [place] [address] Aug, [facility] [address] [id number] [address] [place] [address], [place] [id number] 15 Aug, 2013 [facility] [address] [id number] [address] [place] [address], [place] [address] 30 Jul, 2013 [facility] [address] [id number] [address] [place] [address], [place] [address] 30 Jul, 2013 [facility] [address] [id number] [address] [place] [address], [place] [address] Jul, [facility] [address] [id number] [address] [place] [address], [place] [address] Jul, [facility] [address] [id number] [address] [place] [address], [place] [address] Jul, [facility] [address] [id number] [address] [place] [address], [place] [address] Jul, [facility] [address] [id number] [address] [place] [address], [place] [address] Jun, [facility] [address] [id number] [address] [place] [address], [place] [address] Jun, [facility] [address] [id number] [address] [place] [address], [place] [address] Jun, [facility] [address] [id number] [address] [place] [address], [place] [address] Jun, [facility] [address] [id number] [address] [place] [address], [place] [address] Jun, [facility] [address] [id number] [address] [place] [address], [place] [address] Jun, [facility] [address] [id number] [address] [place] [address], [place] [address] May, [facility] [address] [id number] [address] [place] [address], [place] [address] May, [facility] [address] [id number] [address] [place] [address], [place] [address] May, [facility] [address] [id number] [address] [place] [address], [place] [address] May, [facility] [address] [id number] [address] [place] [address], [place] [address] May, [facility] [address] [id number] [address] [place] [address], [place] [address] May, [facility] [address] [id number] [address] [place] [address], [place] [address] May, [facility] [address] [id number] [address] [place] [address], [place] [address] May, [facility] [address] [id number] [address] [place] [address], [place] [address] Apr, [facility] [address] [id number] [address] [place] [address], [place] [address] Apr, [facility] [address] [id number] [address] [place] [address], [place] [address] Mar, [facility] [address] [id number] [address] [place] [address], [place] [address] Mar, [facility] [address] [id number] [address] [place] [address], [place] [address] Mar, [facility] [address] [id number] [address] [place] [address], [place] [address] Mar, [facility] [address] [id number] [address] [place] [address], [place] [address] Feb, [facility] [address] [id number] [address] [place] [address], [place] [address] Jan, [facility] [address] [id number] [address] [place] [address], [place] [address] December, [facility] [address] [id number] [address] [place] [address], [place] [address] December, [facility] [address] [id number] [address] [place] [address], [place] [address] December, [facility] [address] [id number] [address] [place] [address], [place] [address] Nov, [facility] [address] [id number] [address] [place] [address], [place] [address] Nov, [facility] [address] [id number] [address] [place] [address], [place] [address] 14 Sep, 2012 [facility] [address] [id number] [address] [place] [address], [place] [address] Sep, [facility] [address] [id number] [address] [place] [address], [place] [address] Sep, [facility] [address] [id number] [address] [place] [address], [place] [address] Sep, [facility] [address] [id number] [address] [place] [address], [place] [address] Aug, [facility] [address] [id number] [address] [place] [address], [place] [address] Aug, [facility] [address] [id number] [address] [place] [address], [place] [address] Aug, [facility] [address] [id number] [address] [place] [address], [place] [address] Aug, [facility] [address] [id number] [address] [place] [address], [place] [address] Jul, [facility] [address] [id number] [address] [place] [address], [place] [address] Jul, [facility] [address] [id number] [address] [place] [address], [place] [address] Jul, [facility] [address] [id number] [address] [place] [address], [place] [address] Jul, [facility] [address] [id number] [address] [place] [address], [place] [address] Jun, [facility] [address] [id number] [address] [place] [address], [place] [address] Jun, [facility] [address] [id number] [address] [place] [address], [place] [address] Jun, [facility] [address] [id number] [address] [place] [address], [place] [address] Jun, [facility] [address] [id number] [address] [place] [address], [place] [address] May, [facility] [address] [id number] [address] [place] [address], [place] [address] May, [facility] [address] [id number] [address] [place] [address], [place] [address] May, [facility] [address] [id number] [address] [place] [address], [place] [address] May, [facility] [address] [id number] [address] [place] [address], [place] [address] May, [facility] [address] [id number] [address] [place] [address], [place] [address] 10 Apr, 2012 [facility] [address] [id number] [address] [place] [address], [place] [address] 08 Apr, 2012 [facility] [address] [id number] [address] [place] [address], [place] [address] 07 Apr, 2012 [facility] [address] [id number] [address] [place] [address], [place] [address] 06 Apr, 2012 [facility] [address] [id number] [address] [place] [address], [place] [address] Mar, [facility] [address] [id number] [address] [place] [address], [place] [address] Mar, [facility] [address] [id number] [address] [place] [address], [place] [address] Feb, [facility] [address] [id number] [address] [place] [address] Feb, [facility] [address] [id number] [address] [place] [address], [place] [address] Feb, [facility] [address] [id number] [address] [place] [address], [place] [address] Jan, [facility] [address] [id number] [address] [place] [address], [place] [address] Jan, [facility] [address] [id number] [address] [place] [address], [place] [address] December, [facility] [address] [id number] [address] [place] [address], [place] [address] December, [facility] [address] [id number] [address] [place] [address], [place] [address] Nov, [facility] [address] [id number] [address] [place] [address], [place] [address] Oct, [facility] [address] [id number] [address] [place] [address], [place] [address] Oct, [facility] [address] [id number] [address] [place] [address], [place] [address] Sep, [facility] [address] [id number] [address] [place] [address], [place] [address] Sep, [facility] [address] [id number] [address] [place] [address], [place] [address] Aug, [facility] [address] [id number] [address] [place] [address], [place] [address] Aug, [facility] [address] [id number] [address] [place] [address], [place] [address] Jul, [facility] [address] [id number] [address] [place] [address], [place] [address] Jul, [facility] [address] [id number] [address] [place] [address], [place] [address] Jul, [facility] [address] [id number] [address] [place] [address], [place] [address] 07 Jun, 2011 [facility] [address] [id number] [address] [place] [address], [place] [address] 07 Jun, 2011 [facility] [address] [id number] [address] [place] [address], [place] [address] 13 May, 2011 [facility] [address] [id number] [address] [place] [address], [place] [address] 11 May, 2011 [facility] [address] [id number] [address] [place] [address], [place] [address] 11 May, 2011 [facility] [address] [id number] [address] [place] [address], [place] [address] 09 Jul, 2010 [facility] [address] [id number] [address] [place] [address], [place] [address] 08 Jul, 2010 [facility] [address] [id number] [address] [place] [address], [place] [address] 15 Jun, 2010 [facility] [address] [id number] [address] [place] [address], [place] [address] May, [facility] [address] [id number] [address] [place] [address], [place] [address] May, [facility] [address] [id number] [address] [place] [address], [place] [address] 14 Aug, 2009 [facility] [address] [id number] [address] [place] [address], [place] [address] Jul, [facility] [address] [id number] [address] [place] [address], [place] [address] Jun, [facility] [address] [id number] [address] [place] [address], [place] [address] Jun, [facility] [address] [id number] [address] [place] [address], [place] [address] Jun, [facility] [address] [id number] [address] [place] [address] [address] Jun, [facility] [address] [facility] [id number] [address] [place] [id number] Jun, [facility] [address] [facility] [id number] [address] [place] [address] May, [facility] [address] [facility] [id number] [address] [place] [address] Sep, IMMUNIZATIONS No Known Immunizations SOCIAL HISTORY Never Assessed REASON FOR VISIT Controlled Med Refill 04/20/18 PLAN OF CARE VITAL SIGNS MEDICATIONS Medication [...]
--- OUTSIDE RECORDS SUMMARY | 2020-01-28 14:41 | XMS REPORT ---
Author Author Katarina RODRIGUEZ Organization [facility] Address [address] [place] [address] Care Team Providers Care Air Box Tester Name Role Phone GEORGINA RODRIGUEZ Unavailable PROBLEMS Type Condition ICD9-CM Code KMU85-ZO Code Onset Dates Condition S tatus SNOMED Code Problem Encounter for immunization Z23 Act essie 870844908 Problem Urinary incontinence, unspecified type R32 Active 575434042 Problem History of cataract surgery Z98.49 Ac tive 883825443 Problem Chronic atrial fibrillation I48.2 Ac tive 349951227 Problem Essential hypertension I10 Active 69261632 Problem Morbid obesity, unspecified obesity type E66.01 Active 752896556 Problem 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 252829057 Problem Other urinary incontinence N39.498 Act essie 810640014 Problem Irregular heart beats I49.9 Active 567620148 Problem Eye exam normal Z01.00 Active 2438 18385 Problem Cigarette nicotine dependence without complication F17.210 Active 93029393 Problem Acquired hypothyroidism E03.9 Active 836116245 Problem Abnormal mammogram R92.8 Active 1 57677374 Problem High risk medication use Z79.899 Activ e 853071500 Problem Osteoarthritis M19.90 Active 95715 5006 Problem Diabetes E11.9 Active 217790507 ALLERGIES No Information ENCOUNTERS Encounter Location Date Diagnosis [facility] [address] [facility] [id number] [address] [place] [id number] Apr, [facility] [address] [facility] [id number] [address] [place] [address] Mar, Osteoarthritis M19.90 [facility] [address] [facility] [id number] [address] [place] [address] Feb, Osteoarthritis M19.90 [facility] [address] [facility] [id number] [address] [place] [address] Jan, Osteoarthritis M19.90 [facility] [address] [facility] [id number] [address] [place] [id number] December, [facility] [address] [facility] [id number] [address] [place] [address] December, Osteoarthritis M19.90 [facility] [address] [facility] [id number] [address] [place] [phone] Nov, Diabetes E11.9 ; correction ( current) use of anticoagulants Z79.01 ; Acquired hypothyroidism E03.9 ; Cigarette nicotine dependence without complication F17.210 ; Osteoarthritis M19.90 ; BMI 45.0-49.9, adult Z68.42 and Chronic atrial fibrillation I48.2 [facility] [address] [facility] [id number] [address] [place] [address] Nov, Osteoarthritis M19.90 [facility] [address] [facility] [id number] [address] [place] [id number] Oct, Osteoarthritis M19.90 [facility] [address] [facility] [id number] [address] [place] [id number] Oct, 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 of a nticoagulants Z79.01 [facility] [address] [facility] [id number] [address] [place] [address] Sep, Osteoarthritis M19.90 [facility] [address] [facility] [id number] [address] [place] [id number] Sep, [facility] [address] [facility] [id number] [address] [place] [phone] Aug, Osteoarthritis M19.90 [facility] [address] [facility] [id number] [address] [place] [address] Jul, Osteoarthritis M19.90 [facility] [address] [facility] [id number] [address] [place] [id number] Jul, Osteoarthritis M19.90 [facility] [address] [facility] [id number] [address] [place] [address] Jun, Diabetes E11.9 ; Encounter f or immunization Z23 ; correction (current) use of anticoagulants Z79.01 ; Chronic atrial fibrillation I48.2 ; Osteoarthritis M19.90 ; Tobacco abuse Z72.0 and Bug bite, initial encounter W57.XXXA [facility] [address] [facility] [id number] [address] [place] [address] May, Osteoarthritis M19.90 [facility] [address] [id number] [address] [place] [address] Apr, Osteoarthritis M19.90 [facility] [address] [facility] [id number] [address] [place] [id number] Mar, Chronic atrial fibrillation I48.2 [facility] [address] [facility] [id number] [address] [place] [address] Mar, [facility] [address] [id number] [address] [place] [address] Mar, Osteoarthritis M19.90 [facility] [address] [id number] [address] [place] [id number] Mar, correction (current) use of a nticoagulants Z79.01 and Chronic atrial fibrillation I48.2 [facility] [address] [facility] [id number] [address] [place] [id number] Mar, Chronic atrial fibrillation I48.2 and 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 [facility] [address] [id number] [address] [place] [id number] Mar, 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 of a nticoagulants Z79.01 [facility] [address] [facility] [id number] [address] [place] [id number] Mar, correction (current) use of a nticoagulants Z79.01 [facility] [address] [facility] [id number] [address] [place] [address] Mar, Osteoarthritis M19.90 [facility] [address] [id number] [address] [place] [phone] Feb, Encounter for screening mamm ogram for malignant neoplasm of breast Z12.31 [facility] [address] [facility] [id number] [address] [place] [id number] Feb, Osteoarthritis M19.90 [facility] [address] [facility] [id number] [address] [place] [id number] Jan, [facility] [address] [facility] [id number] [address] [place] [phone] Jan, 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 of a nticoagulants Z79.01 ; Diabetes E11.9 ; Osteoarthritis M19.90 and Breast cancer screening Z12.39 [facility] [address] [facility] [id number] [address] [place] [id number] Jan, Osteoarthritis M19.90 [facility] [address] [facility] [id number] [address] [place] [id number] Jan, Osteoarthritis M19.90 [facility] [address] [id number] [address] [place] [id number] Jan, [facility] [address] [facility] [id number] [address] [place] [id number] December, Osteoarthritis M19.90 [facility] [address] [facility] [id number] [address] [place] [phone] December, Osteoarthritis M19.90 [facility] [id number] [place] [id number] Nov, [facility] [address] [id number] [address] [place] [phone] Nov, [facility] [address] [facility] [id number] [address] [place] [phone] Nov, [facility] [address] [facility] [id number] [address] [place] [phone] Nov, Diabetes E11.9 [facility] [address] [facility] [id number] [address] [place] [id number] Nov, [facility] [address] [facility] [id number] [address] [place] [id number] Oct, Osteoarthritis M19.90 [facility] [address] [facility] [id number] [address] [place] [address] Oct, Osteoarthritis M19.90 ; correction (current) use of anticoagulants Z79.01 ; Diabetes E11.9 ; Cigarette nicotine dependence without complication F17.210 and Chronic atrial fibrillation I48.2 [facility] [address] [facility] [id number] [address] [place] [phone] Aug, [facility] [address] [facility] [id number] [address] [place] [id number] Aug, 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 of a nticoagulants Z79.01 [facility] [address] [facility] [id number] [address] [place] [phone] Aug, [facility] [id number] [place] [id number] Aug, [facility] [address] [place] [id number] [address] [place] [id number] Aug, [facility] [address] [place] [id number] [address] [place] [id number] Aug, [facility] [address] [place] [id number] [place] [address] [id number] Aug, [facility] [address] [id number] Aug Osteoarthritis M19.90 and Essential hypertension I10 [facility] [address] [place] [id number] [address] [place] [id number] Aug, Other urinary incontinence N 39.498 [facility] [address] [place] [id number] [address] [place] [address] Jul, Osteoarthritis M19.90 [facility] [address] [place] [id number] [place] [phone] Jun, Diabetes E11.9 ; Encounter f or immunization Z23 ; Osteoarthritis M19.90 ; 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 ; Cigarette nicotine dependence without complication F17.210 ; Acquired hypothyroidism E03.9 ; Morbid obesity, unspecified obesity type E66.01 and Irregular heart beats I49.9 [place] [address] [place] [id number] [address] [place] [address] Jun, Osteoarthritis M19.90 [place] [address] [place] [id number] [place] [phone] May, Osteoarthritis M19.90 [place] [address] [address] May, Urinary incontinence, unspec ified type R32 [place] [address] [address] May, [place] [address] [address] Apr, Osteoarthritis M19.90 [place] [address] [address] Apr, 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 of a nticoagulants Z79.01 [facility] [id number] [place] [id number] Apr, [place] [address] [place] [id number] [address] [place] [phone] Apr, Osteoarthritis M19.90 [place] [address] [place] [id number] [address] [place] [address] Mar, Diabetes E11.9 ; Hypothyroid ism, unspecified type E03.9 ; Osteoarthritis M19.90 ; High risk medication use Z79.899 ; Cigarette nicotine dependence without complication F17.210 and Morbid obesity, unspecified obesity type E66.01 [place] [address] [place] [id number] [address] [place] [address] Mar, Osteoarthritis M19.90 [facility] [address] [facility] [id number] [address] [place] [id number] December, Osteoarthritis M19.90 [facility] [address] [facility] [id number] [address] [place] [id number] December, [facility] [address] [facility] [id number] [address] [place] [id number] Oct, [facility] [address] [facility] [id number] [address] [place] [id number] Oct, [facility] [address] [facility] [id number] [address] [place] [phone] Aug, [facility] [address] [facility] [id number] [address] [place] [id number] Jul, [facility] [address] [facility] [id number] [address] [place] [id number] Jul, [facility] [address] [facility] [id number] [address] [place] [id number] Jul, Diabetes E11.9 ; Encounter f or immunization Z23 ; Abnormal mammogram R92.8 ; Acquired hypothyroidism E03.9 ; High risk medication use Z79.899 ; Osteoarthritis M19.90 and Cigarette nicotine dependence without complication F17.210 [facility] [address] [facility] [id number] [address] [place] [phone] Jul, [facility] [address] [facility] [id number] [address] [place] [phone] Jun, Abnormal mammogram R92.8 [facility] [address] [facility] [id number] [address] [place] [phone] Apr, [facility] [address] [facility] [id number] [address] [place] [phone] Apr, [facility] [address] [facility] [id number] [address] [place] [phone] Mar, [facility] [address] [id number] [address] [place] [id number] Mar, Current use of correction ant 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 V58.61 [facility] [address] [id number] [address] [place] [phone] Feb, [facility] [address] [id number] [address] [place] [phone] Jan, [facility] [address] [id number] [address] [place] [phone] December, [facility] [address] [id number] [address] [place] [phone] Nov, [facility] [address] [id number] [address] [place] [id number] Nov, [facility] [address] [id number] [address] [place] [phone] Oct, [facility] [address] [id number] [address] [place] [phone] Oct, [facility] [address] [id number] [address] [place] [phone] Oct, [facility] [address] [id number] [address] [place] [phone] Oct, [facility] [address] [id number] [address] [place] [phone] Oct, [facility] [address] [id number] [address] [place] [phone] Oct, [facility] [address] [id number] [address] [place] [phone] Sep, [facility] [address] [id number] [address] [place] [phone] Sep, [facility] [address] [id number] [address] [place] [id number] Sep, [facility] [address] [id number] [address] [place] [address], [place] [id number] 05 Sep, 2014 [facility] [address] [id number] [address] [place] [address], [place] [address] Aug, [facility] [address] [id number] [address] [place] [address], [place] [address] Aug, [facility] [address] [id number] [address] [place] [address], [place] [address] Aug, [facility] [address] [id number] [address] [place] [address], [place] [address] Aug, [facility] [address] [id number] [address] [place] [address], [place] [address] Aug, [facility] [address] [id number] [address] [place] [address], [place] [address] Aug, [facility] [address] [id number] [address] [place] [address], [place] [address] Jul, [facility] [address] [id number] [address] [place] [address], [place] [address] Jul, [facility] [address] [id number] [address] [place] [address], [place] [address] Jul, [facility] [address] [id number] [address] [place] [address], [place] [address] Jul, [facility] [address] [id number] [address] [place] [address], [place] [address] Jul, [facility] [address] [id number] [address] [place] [address], [place] [address] Jul, [facility] [address] [id number] [address] [place] [address], [place] [address] Jun, [facility] [address] [id number] [address] [place] [address], [place] [address] Jun, [facility] [address] [id number] [address] [place] [address], [place] [address] Jun, [facility] [address] [id number] [address] [place] [address], [place] [id number] Jun, [facility] [address] [id number] [address] [place] [address], [place] [address] Jun, [facility] [address] [id number] [address] [place] [address], [place] [address] Jun, [facility] [address] [id number] [address] [place] [address], [place] [address] Jun, [facility] [address] [id number] [address] [place] [address], [place] [address] Jun, [facility] [address] [id number] [address] [place] [address], [place] [address] Jun, [facility] [address] [id number] [address] [place] [address], [place] [address] May, [facility] [address] [id number] [address] [place] [address], [place] [address] May, [facility] [address] [id number] [address] [place] [address], [place] [address] Apr, [facility] [address] [id number] [address] [place] [address], [place] [address] Apr, [facility] [address] [id number] [address] [place] [address], [place] [address] Apr, [facility] [address] [id number] [address] [place] [address], [place] [address] Apr, [facility] [address] [id number] [address] [place] [address], [place] [address] Apr, [facility] [address] [id number] [address] [place] [address], [place] [address] Apr, [facility] [address] [id number] [address] [place] [address], [place] [address] Apr, [facility] [address] [id number] [address] [place] [address], [place] [address] Apr, [facility] [address] [id number] [address] [place] [address], [place] [address] Apr, [facility] [address] [id number] [address] [place] [address], [place] [address] Apr, [facility] [address] [id number] [address] [place] [address], [place] [address] Mar, [facility] [address] [id number] [address] [place] [address], [place] [address] Mar, [facility] [address] [id number] [address] [place] [address], [place] [address] Mar, [facility] [address] [id number] [address] [place] [address], [place] [address] Mar, [facility] [address] [id number] [address] [place] [address], [place] [address] Mar, [facility] [address] [id number] [address] [place] [address], [place] [address] Mar, [facility] [address] [id number] [address] [place] [address], [place] [address] Feb, [facility] [address] [id number] [address] [place] [address], [place] [address] Feb, [facility] [address] [id number] [address] [place] [address], [place] [address] Feb, [facility] [address] [id number] [address] [place] [address], [place] [address] Feb, [facility] [address] [id number] [address] [place] [address], [place] [address] Jan, [facility] [address] [id number] [address] [place] [address], [place] [address] Jan, [facility] [address] [id number] [address] [place] [address], [place] [address] Jan, [facility] [address] [id number] [address] [place] [address], [place] [address] Jan, [facility] [address] [id number] [address] [place] [address], [place] [address] Oct, [facility] [address] [id number] [address] [place] [address], [place] [address] Oct, [facility] [address] [id number] [address] [place] [address], [place] [address] Sep, [facility] [address] [id number] [address] [place] [address], [place] [address] Sep, [facility] [address] [id number] [address] [place] [address], [place] [address] Sep, [facility] [address] [id number] [address] [place] [address], [place] [address] Sep, [facility] [address] [id number] [address] [place] [address], [place] [address] Aug, [facility] [address] [id number] [address] [place] [address], [place] [address] Aug, [facility] [address] [id number] [address] [place] [address], [place] [id number] Aug, [facility] [address] [id number] [address] [place] [address], [place] [address] Aug, [facility] [address] [id number] [address] [place] [address], [place] [address] Jul, [facility] [address] [id number] [address] [place] [address], [place] [id number] 30 Jul, 2013 [facility] [address] [id number] [address] [place] [address], [place] [address] Jul, [facility] [address] [id number] [address] [place] [address], [place] [address] Jul, [facility] [address] [id number] [address] [place] [address] [address] Jul, [facility] [address] [id number] [address] [place] [address], [place] [address] Jul, [facility] [address] [id number] [address] [place] [address], [place] [address] Jun, [facility] [address] [id number] [address] [place] [address], [place] [address] Jun, [facility] [address] [id number] [address] [place] [address], [place] [address] Jun, [facility] [address] [id number] [address] [place] [address], [place] [address] Jun, [facility] [address] [id number] [address] [place] [address], [place] [address] Jun, [facility] [address] [id number] [address] [place] [address], [place] [address] Jun, [facility] [address] [id number] [address] [place] [address], [place] [address] May, [facility] [address] [id number] [address] [place] [address], [place] [address] May, [facility] [address] [id number] [address] [place] [address], [place] [id number] May, [facility] [address] [id number] [address] [place] [id number] May, [facility] [address] [id number] [place] [id number] May, [facility] [address] [id number] [address] [place] [address], [place] [address] May, [facility] [address] [id number] [address] [place] [id number] May, [facility] [address] [id number] [address] [place] [id number] May, [facility] [address] [id number] [address] [place] [address], [place] [address] Apr, [facility] [address] [id number] [address] [place] [address], [place] [address] Apr, [facility] [address] [id number] [address] [place] [address], [place] [address] Mar, [facility] [address] [id number] [address] [place] [address], [place] [address] Mar, [facility] [address] [id number] [address] [place] [address], [place] [address] Mar, [facility] [address] [id number] [address] [place] [address], [place] [address] Mar, [facility] [address] [id number] [address] [place] [address], [place] [address] Feb, [facility] [address] [id number] [address] [place] [address], [place] [address] Jan, [facility] [address] [id number] [address] [place] [address], [place] [address] December, [facility] [address] [id number] [address] [place] [address], [place] [address] December, [facility] [address] [id number] [address] [place] [address], [place] [address] December, [facility] [address] [id number] [address] [place] [address], [place] [address] Nov, [facility] [address] [id number] [address] [place] [address], [place] [address] Nov, [facility] [address] [id number] [address] [place] [address], [place] [address] Sep, [facility] [address] [id number] [address] [place] [address], [place] [address] Sep, [facility] [address] [id number] [address] [place] [address], [place] [address] Sep, [facility] [address] [id number] [address] [place] [address], [place] [id number] 13 Sep, 2012 [facility] [address] [id number] [address] [place] [address], [place] [address] 30 Aug, 2012 [facility] [address] [id number] [address] [place] [address], [place] [address] Aug, [facility] [address] [id number] [address] [place] [address], [place] [address] Aug, [facility] [address] [id number] [address] [place] [address], [place] [address] Aug, [facility] [address] [id number] [address] [place] [address], [place] [address] Jul, [facility] [address] [id number] [address] [place] [address], [place] [address] Jul, [facility] [address] [id number] [address] [place] [address], [place] [address] Jul, [facility] [address] [id number] [address] [place] [address], [place] [id number] Jul, [facility] [address] [id number] [address] [place] [id number] Jun, [facility] [address] [id number] [address] [place] [id number] Jun, [facility] [address] [id number] [address] [place] [id number] Jun, [facility] [address] [id number] [address] [place] [address], [place] [address] Jun, [facility] [address] [id number] [address] [place] [address], [place] [address] May, [facility] [address] [id number] [address] [place] [id number] May, [facility] [address] [id number] [address] [place] [id number] May, [facility] [address] [id number] [address] [place] [address], [place] [address] May, [facility] [address] [id number] [address] [place] [address], [place] [address] May, [facility] [address] [id number] [address] [place] [address], [place] [address] 10 Apr, 2012 [facility] [address] [id number] [address] [place] [address], [place] [address] 08 Apr, 2012 [facility] [address] [id number] [address] [place] [address], [place] [address] 07 Apr, 2012 [facility] [address] [id number] [address] [place] [address], [place] [address] 06 Apr, 2012 [facility] [address] [id number] [address] [place] [address], [place] [address] Mar, [facility] [address] [id number] [address] [place] [address], [place] [address] Mar, [facility] [address] [id number] [address] [place] [address], [place] [address] Feb, [facility] [address] [id number] [address] [place] [address], [place] [address] Feb, [facility] [address] [id number] [address] [place] [address], [place] [address] Feb, [facility] [address] [id number] [address] [place] [address], [place] [address] Jan, [facility] [address] [id number] [address] [place] [address], [place] [address] Jan, [facility] [address] [id number] [address] [place] [address], [place] [address] December, [facility] [address] [id number] [address] [place] [address], [place] [address] December, [facility] [address] [id number] [address] [place] [address], [place] [address] Nov, [facility] [address] [id number] [address] [place] [address], [place] [address] Oct, [facility] [address] [id number] [address] [place] [address], [place] [address] Oct, [facility] [address] [id number] [address] [place] [address], [place] [address] Sep, [facility] [address] [id number] [address] [place] [address], [place] [address] Sep, [facility] [address] [id number] [address] [place] [address], [place] [address] Aug, [facility] [address] [id number] [address] [place] [address], [place] [address] Aug, [facility] [address] [id number] [address] [place] [address], [place] [address] Jul, [facility] [address] [id number] [address] [place] [address], [place] [address] Jul, [facility] [address] [id number] [address] [place] [address], [place] [address] Jul, [facility] [address] [id number] [address] [place] [address], [place] [address] Jun, [facility] [address] [id number] [address] [place] [address], [place] [address] Jun, [facility] [address] [id number] [address] [place] [address], [place] [address] May, [facility] [address] [id number] [address] [place] [address], [place] [address] May, [facility] [address] [id number] [address] [place] [address], [place] [address] May, [facility] [address] [id number] [address] [place] [address], [place] [address] Jul, [facility] [address] [id number] [address] [place] [id number] Jul, [facility] [address] [id number] [address] [place] [id number] Jun, [facility] [address] [id number] [address] [place] [id number] May, [facility] [address] [id number] [address] [place] [id number] May, [facility] [address] [id number] [address] [place] [id number] Aug, [facility] [address] [id number] [address] [place] [id number] Jul, [facility] [address] [id number] [address] [place] [id number] Jun, [facility] [address] [id number] [address] [place] [id number] Jun, [facility] [address] [id number] [address] [place] [id number] Jun, [facility] [address] [id number] [address] [place] [id number] Jun, [facility] [address] [id number] [address] [place] [id number] Jun, [facility] [address] [id number] [address] [place] [id number] May, [facility] [address] [id number] [address] [place] [id number] Sep, IMMUNIZATIONS No Known Immunizations SOCIAL HISTORY Never Assessed REASON FOR VISIT Controlled Med Refill 01/26/18 PLAN OF CARE VITAL SIGNS MEDICATIONS Medication [...]
--- OUTSIDE RECORDS SUMMARY | 2020-01-28 14:41 | XMS REPORT ---
Author Author Katarina RODRIGUEZ Organization [facility] Address [address] [place] [address] Care Team Providers Care Tile Sorter Name Role Phone GEORGINA RODRIGUEZ Unavailable PROBLEMS Type Condition ICD9-CM Code ESS07-UV Code Onset Dates Condition S tatus SNOMED Code Problem Encounter for immunization Z23 Act essie 321620707 Problem Urinary incontinence, unspecified type R32 Active 713254981 Problem History of cataract surgery Z98.49 Ac tive 914523560 Problem Chronic atrial fibrillation I48.2 Ac tive 774669439 Problem Essential hypertension I10 Active 27240218 Problem Morbid obesity, unspecified obesity type E66.01 Active 173339380 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 367542930 Problem Other urinary incontinence N39.498 Act essie 680952165 Problem Irregular heart beats I49.9 Active 983331303 Problem Eye exam normal Z01.00 Active 2438 63747 Problem Cigarette nicotine dependence without complication F17.210 Active 99195036 Problem Acquired hypothyroidism E03.9 Active 495605647 Problem Abnormal mammogram R92.8 Active 1 54442963 Problem High risk medication use Z79.899 Activ e 375969011 Problem Osteoarthritis M19.90 Active 09819 5006 Problem Diabetes E11.9 Active 875765670 ALLERGIES No Information ENCOUNTERS Encounter Location Date Diagnosis [facility] [address] [facility] [id number] [address] [place] [phone] Apr, [facility] [address] [facility] [id number] [address] [place] [phone] Mar, Osteoarthritis M19.90 [facility] [address] [facility] [id number] [address] [place] [address] Feb, Osteoarthritis M19.90 [facility] [address] [facility] [id number] [address] [place] [phone] Jan, Osteoarthritis M19.90 [facility] [address] [facility] [id number] [address] [place] [phone] December, [facility] [address] [facility] [id number] [address] [place] [address] December, Osteoarthritis M19.90 [facility] [address] [facility] [id number] [address] [place] [address] Nov, Diabetes E11.9 ; halfway ( current) use of anticoagulants Z79.01 ; Acquired hypothyroidism E03.9 ; Cigarette nicotine dependence without complication F17.210 ; Osteoarthritis M19.90 ; BMI 45.0-49.9, adult Z68.42 and Chronic atrial fibrillation I48.2 [facility] [address] [facility] [id number] [address] [place] [address] Nov, Osteoarthritis M19.90 [facility] [address] [facility] [id number] [address] [place] [phone] Oct, Osteoarthritis M19.90 [facility] [address] 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 [id number] [address] [place] [phone] Sep, Osteoarthritis M19.90 [facility] [address] [facility] [id number] [address] [place] [address] Sep, [facility] [address] [facility] [id number] [address] [place] [address] Aug, Osteoarthritis M19.90 [facility] [address] [facility] [id number] [address] [place] [address] Jul, Osteoarthritis M19.90 [facility] [address] [facility] [id number] [address] [place] [address] Jul, Osteoarthritis M19.90 [facility] [address] [facility] [id number] [address] [place] [address] Jun, Diabetes E11.9 ; Encounter f or immunization Z23 ; halfway (current) use of anticoagulants Z79.01 ; Chronic atrial fibrillation I48.2 ; Osteoarthritis M19.90 ; Tobacco abuse Z72.0 and Bug bite, initial encounter W57.XXXA [facility] [address] [facility] [id number] [address] [place] [phone] May, Osteoarthritis M19.90 [facility] [address] [id number] [address] [place] [address] Apr, Osteoarthritis M19.90 [facility] [address] [facility] [id number] [address] [place] [address] Mar, Chronic atrial fibrillation I48.2 [facility] [address] [facility] [id number] [address] [place] [address] Mar, [facility] [address] [id number] [address] [place] [address] Mar, Osteoarthritis M19.90 [facility] [address] [id number] [address] [place] [address] Mar, halfway (current) use of a nticoagulants Z79.01 and Chronic atrial fibrillation I48.2 [facility] [address] 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 [id number] [address] [place] [phone] Mar, halfway (current) use of a nticoagulants Z79.01 [facility] [address] [facility] [id number] [address] [place] [address] Mar, Osteoarthritis M19.90 [facility] [address] [id number] [address] [place] [address] Feb, Encounter for screening mamm ogram for malignant neoplasm of breast Z12.31 [facility] [address] [facility] [id number] [address] [place] [address] Feb, Osteoarthritis M19.90 [facility] [address] [facility] [id number] [address] [place] [address] Jan, [facility] [address] 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 [id number] [address] [place] [address] Jan, Osteoarthritis M19.90 [facility] [address] [facility] [id number] [address] [place] [address] Jan, Osteoarthritis M19.90 [facility] [address] [id number] [address] [place] [phone] Jan, [facility] [address] [facility] [id number] [address] [place] [phone] December, Osteoarthritis M19.90 [facility] [address] [facility] [id number] [address] [place] [id number] December, Osteoarthritis M19.90 [facility] [id number] [place] [id number] Nov, [facility] [address] [id number] [address] [place] [phone] Nov, [facility] [address] [facility] [id number] [address] [place] [phone] Nov, [facility] [address] [facility] [id number] [address] [place] [phone] Nov, Diabetes E11.9 [facility] [address] [facility] [id number] [address] [place] [phone] Nov, [facility] [address] [facility] [id number] [address] [place] [address] Oct, Osteoarthritis M19.90 [facility] [address] [facility] [id number] [address] [place] [address] Oct, Osteoarthritis M19.90 ; halfway (current) use of anticoagulants Z79.01 ; Diabetes E11.9 ; Cigarette nicotine dependence without complication F17.210 and Chronic atrial fibrillation I48.2 [facility] [address] [facility] [id number] [address] [place] [phone] Aug, [facility] [address] 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 [id number] [address] [place] [phone] Aug, [facility] [id number] [place] [address] [id number] Aug, [facility] [address] [place] [id number] [address] [place] [address] Aug, [facility] [address] [place] [id number] [address] [place] [phone] Aug, [facility] [address] [place] [id number] [place] [id number] Aug, [facility] [address] [place] [id number] Aug Osteoarthritis M19.90 and Essential hypertension I10 [facility] [address] [place] [id number] [address] [place] [address] Aug, Other urinary incontinence N 39.498 [facility] [address] [place] [id number] [address] [place] [address] Jul, Osteoarthritis M19.90 [facility] [address] [place] [id number] [place] [phone] Jun, Diabetes E11.9 ; Encounter f or immunization Z23 ; Osteoarthritis M19.90 ; 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 ; Cigarette nicotine dependence without complication F17.210 ; Acquired hypothyroidism E03.9 ; Morbid obesity, unspecified obesity type E66.01 and Irregular heart beats I49.9 [place] [address] [place] [id number] [address] [place] [address] Jun, Osteoarthritis M19.90 [place] [address] [place] [id number] [place] [address] May, Osteoarthritis M19.90 [place] [address] [address] May, Urinary incontinence, unspec ified type R32 [place] [address] [address] May, [place] [address] [address] Apr, Osteoarthritis M19.90 [place] [address] [address] Apr, 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 nticoagulants Z79.01 [facility] [id number] [place] [phone] Apr, [place] [address] [place] [id number] [address] [place] [address] Apr, Osteoarthritis M19.90 [place] [address] [place] [id number] [address] [place] [address] Mar, Diabetes E11.9 ; Hypothyroid ism, unspecified type E03.9 ; Osteoarthritis M19.90 ; High risk medication use Z79.899 ; Cigarette nicotine dependence without complication F17.210 and Morbid obesity, unspecified obesity type E66.01 [place] [address] [place] [id number] [address] [place] [address] Mar, Osteoarthritis M19.90 [facility] [address] [facility] [id number] [address] [place] [phone] December, Osteoarthritis M19.90 [facility] [address] [facility] [id number] [address] [place] [phone] December, [facility] [address] [facility] [id number] [address] [place] [address] Oct, [facility] [address] [facility] [id number] [address] [place] [phone] Oct, [facility] [address] [facility] [id number] [address] [place] [phone] Aug, [facility] [address] [facility] [id number] [address] [place] [phone] Jul, [facility] [address] [facility] [id number] [address] [place] [phone] Jul, [facility] [address] [facility] [id number] [address] [place] [phone] Jul, Diabetes E11.9 ; Encounter f or immunization Z23 ; Abnormal mammogram R92.8 ; Acquired hypothyroidism E03.9 ; High risk medication use Z79.899 ; Osteoarthritis M19.90 and Cigarette nicotine dependence without complication F17.210 [facility] [address] [facility] [id number] [address] [place] [phone] Jul, [facility] [address] [facility] [id number] [address] [place] [phone] Jun, Abnormal mammogram R92.8 [facility] [address] [facility] [id number] [address] [place] [phone] Apr, [facility] [address] [facility] [id number] [address] [place] [phone] Apr, [facility] [address] [facility] [id number] [address] [place] [phone] Mar, [facility] [address] [id number] [address] [place] [phone] Mar, Current use of skilled nursing ant 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 V58.61 [facility] [address] [id number] [address] [place] [phone] Feb, [facility] [address] [id number] [address] [place] [phone] Jan, [facility] [address] [id number] [address] [place] [phone] December, [facility] [address] [id number] [address] [place] [phone] Nov, [facility] [address] [id number] [address] [place] [phone] Nov, [facility] [address] [id number] [address] [place] [address] Oct, [facility] [address] [id number] [address] [place] [phone] Oct, [facility] [address] [id number] [address] [place] [phone] Oct, [facility] [address] [id number] [address] [place] [phone] Oct, [facility] [address] [id number] [address] [place] [phone] Oct, [facility] [address] [id number] [address] [place] [phone] Oct, [facility] [address] [id number] [address] [place] [phone] Sep, [facility] [address] [id number] [address] [place] [phone] Sep, [facility] [address] [id number] [address] [place] [phone] Sep, [facility] [address] [id number] [address] [place] [address], [place] [phone] 05 Sep, 2014 [facility] [address] [id number] [address] [place] [address], [place] [address] Aug, [facility] [address] [id number] [address] [place] [address], [place] [address] Aug, [facility] [address] [id number] [address] [place] [address], [place] [phone] Aug, [facility] [address] [id number] [address] [place] [address], [place] [address] Aug, [facility] [address] [id number] [address] [place] [address], [place] [address] Aug, [facility] [address] [id number] [address] [place] [address], [place] [address] Aug, [facility] [address] [id number] [address] [place] [address], [place] [phone] Jul, [facility] [address] [id number] [address] [place] [address], [place] [address] Jul, [facility] [address] [id number] [address] [place] [address], [place] [id number] Jul, [facility] [address] [id number] [address] [place] [address], [place] [address] Jul, [facility] [address] [id number] [address] [place] [address], [place] [address] Jul, [facility] [address] [id number] [address] [place] [address], [place] [address] Jul, [facility] [address] [id number] [address] [place] [address], [place] [phone] Jun, [facility] [address] [id number] [address] [place] [address], [place] [address] Jun, [facility] [address] [id number] [address] [place] [address], [place] [phone] Jun, [facility] [address] [id number] [address] [place] [address], [place] [phone] Jun, [facility] [address] [id number] [address] [place] [address], [place] [address] Jun, [facility] [address] [id number] [address] [place] [address], [place] [address] Jun, [facility] [address] [id number] [address] [place] [address], [place] [address] Jun, [facility] [address] [id number] [address] [place] [address], [place] [address] Jun, [facility] [address] [id number] [address] [place] [address], [place] [address] Jun, [facility] [address] [id number] [address] [place] [address], [place] [address] May, [facility] [address] [id number] [address] [place] [address], [place] [address] May, [facility] [address] [id number] [address] [place] [address], [place] [address] Apr, [facility] [address] [id number] [address] [place] [address], [place] [address] Apr, [facility] [address] [id number] [address] [place] [address], [place] [address] Apr, [facility] [address] [id number] [address] [place] [address], [place] [address] Apr, [facility] [address] [id number] [address] [place] [address], [place] [address] Apr, [facility] [address] [id number] [address] [place] [address], [place] [address] Apr, [facility] [address] [id number] [address] [place] [address], [place] [address] Apr, [facility] [address] [id number] [address] [place] [address], [place] [address] Apr, [facility] [address] [id number] [address] [place] [address], [place] [address] Apr, [facility] [address] [id number] [address] [place] [address], [place] [address] Apr, [facility] [address] [id number] [address] [place] [address], [place] [address] Mar, [facility] [address] [id number] [address] [place] [address], [place] [address] Mar, [facility] [address] [id number] [address] [place] [address], [place] [address] Mar, [facility] [address] [id number] [address] [place] [address], [place] [address] Mar, [facility] [address] [id number] [address] [place] [address], [place] [address] Mar, [facility] [address] [id number] [address] [place] [address], [place] [address] Mar, [facility] [address] [id number] [address] [place] [address], [place] [address] Feb, [facility] [address] [id number] [address] [place] [address], [place] [address] Feb, [facility] [address] [id number] [address] [place] [address], [place] [address] Feb, [facility] [address] [id number] [address] [place] [address], [place] [address] Feb, [facility] [address] [id number] [address] [place] [address], [place] [id number] Jan, [facility] [address] [id number] [address] [place] [address], [place] [id number] Jan, [facility] [address] [id number] [address] [place] [address], [place] [id number] Jan, [facility] [address] [id number] [address] [place] [address], [place] [id number] Jan, [facility] [address] [id number] [address] [place] [address], [place] [id number] Oct, [facility] [address] [id number] [address] [place] [address], [place] [id number] Oct, [facility] [address] [id number] [address] [place] [address], [place] [id number] Sep, [facility] [address] [id number] [address] [place] [address], [place] [id number] Sep, [facility] [address] [id number] [address] [place] [address], [place] [id number] Sep, [facility] [address] [id number] [address] [place] [address], [place] [id number] Sep, [facility] [address] [id number] [address] [place] [address], [place] [id number] Aug, [facility] [address] [id number] [address] [place] [address], [place] [id number] Aug, [facility] [address] [id number] [address] [place] [address], [place] [id number] Aug, [facility] [address] [id number] [address] [place] [address], [place] [id number] Aug, [facility] [address] [id number] [address] [place] [address], [place] [id number] Jul, [facility] [address] [id number] [address] [place] [address], [place] [id number] 30 Jul, 2013 [facility] [address] [id number] [address] [place] [address], [place] [id number] Jul, [facility] [address] [id number] [address] [place] [address], [place] [id number] Jul, [facility] [address] [id number] [address] [place], [place] [address] [address] Jul, [facility] [address] [id number] [address] [place] [address], [place] [id number] Jul, [facility] [address] [id number] [address] [place] [address], [place] [id number] Jun, [facility] [address] [id number] [address] [place] [address], [place] [id number] Jun, [facility] [address] [id number] [address] [place] [address], [place] [id number] Jun, [facility] [address] [id number] [address] [place] [address], [place] [id number] Jun, [facility] [address] [id number] [address] [place] [address], [place] [id number] Jun, [facility] [address] [id number] [address] [place] [address], [place] [id number] Jun, [facility] [address] [id number] [address] [place] [address], [place] [id number] May, [facility] [address] [id number] [address] [place] [address], [place] [id number] May, [facility] [address] [id number] [address] [place] [address], [place] [id number] May, [facility] [address] [id number] [address] [place] [id number] May, [facility] [address] [id number] [address] [place] [phone] May, [facility] [address] [id number] [address] [place] [address], [place] [id number] May, [facility] [address] [id number] [address] [place] [phone] May, [facility] [address] [id number] [address] [place] [id number] May, [facility] [address] [id number] [address] [place] [address], [place] [id number] Apr, [facility] [address] [id number] [address] [place] [address], [place] [id number] Apr, [facility] [address] [id number] [address] [place] [address], [place] [id number] Mar, [facility] [address] [id number] [address] [place] [address], [place] [id number] Mar, [facility] [address] [id number] [address] [place] [address], [place] [id number] Mar, [facility] [address] [id number] [address] [place] [address], [place] [id number] Mar, [facility] [address] [id number] [address] [place] [address], [place] [id number] Feb, [facility] [address] [id number] [address] [place] [address], [place] [id number] Jan, [facility] [address] [id number] [address] [place] [address], [place] [id number] December, [facility] [address] [id number] [address] [place] [address], [place] [id number] December, [facility] [address] [id number] [address] [place] [address], [place] [id number] December, [facility] [address] [id number] [address] [place] [address], [place] [id number] Nov, [facility] [address] [id number] [address] [place] [address], [place] [id number] Nov, [facility] [address] [id number] [address] [place] [address], [place] [id number] Sep, [facility] [address] [id number] [address] [place] [address], [place] [id number] Sep, [facility] [address] [id number] [address] [place] [address], [place] [id number] Sep, [facility] [address] [id number] [address] [place] [address], [place] [id number] 13 Sep, 2012 [facility] [address] [id number] [address] [place] [address], [place] [id number] 30 Aug, 2012 [facility] [address] [id number] [address] [place] [address], [place] [id number] Aug, [facility] [address] [id number] [address] [place] [address], [place] [id number] Aug, [facility] [address] [id number] [address] [place] [address], [place] [id number] Aug, [facility] [address] [id number] [address] [place] [address], [place] [id number] Jul, [facility] [address] [id number] [address] [place] [address], [place] [id number] Jul, [facility] [address] [id number] [address] [place] [address], [place] [id number] Jul, [facility] [address] [id number] [address] [place] [address], [place] [id number] Jul, [facility] [address] [id number] [address] [place] [id number] Jun, [facility] [address] [id number] [address] [place] [phone] Jun, [facility] [address] [id number] [address] [place] [phone] Jun, [facility] [address] [id number] [address] [place] [address], [place] [id number] Jun, [facility] [address] [id number] [address] [place] [address], [place] [id number] May, [facility] [address] [id number] [address] [place] [phone] May, [facility] [address] [id number] [address] [place] [id number] May, [facility] [address] [id number] [address] [place] [address], [place] [id number] May, [facility] [address] [id number] [address] [place] [address], [place] [id number] May, [facility] [address] [id number] [address] [place] [address], [place] [id number] 10 Apr, 2012 [facility] [address] [id number] [address] [place] [address], [place] [id number] 08 Apr, 2012 [facility] [address] [id number] [address] [place] [address], [place] [id number] 07 Apr, 2012 [facility] [address] [id number] [address] [place] [address], [place] [id number] 06 Apr, 2012 [facility] [address] [id number] [address] [place] [address], [place] [id number] Mar, [facility] [address] [id number] [address] [place] [address], [place] [id number] Mar, [facility] [address] [id number] [address] [place] [address], [place] [id number] Feb, [facility] [address] [id number] [address] [place] [address], [place] [id number] Feb, [facility] [address] [id number] [address] [place] [address], [place] [id number] Feb, [facility] [address] [id number] [address] [place] [address], [place] [id number] Jan, [facility] [address] [id number] [address] [place] [address], [place] [address] Jan, [facility] [address] [id number] [address] [place] [address], [place] [id number] December, [facility] [address] [id number] [address] [place] [address], [place] [id number] December, [facility] [address] [id number] [address] [place] [address], [place] [id number] Nov, [facility] [address] [id number] [address] [place] [address], [place] [id number] Oct, [facility] [address] [id number] [address] [place] [address], [place] [id number] Oct, [facility] [address] [id number] [address] [place] [address], [place] [id number] Sep, [facility] [address] [id number] [address] [place] [address], [place] [id number] Sep, [facility] [address] [id number] [address] [place] [address], [place] [id number] Aug, [facility] [address] [id number] [address] [place] [address], [place] [id number] Aug, [facility] [address] [id number] [address] [place] [address], [place] [id number] Jul, [facility] [address] [id number] [address] [place] [address], [place] [id number] Jul, [facility] [address] [id number] [address] [place] [address], [place] [id number] Jul, [facility] [address] [id number] [address] [place] [address], [place] [id number] Jun, [facility] [address] [id number] [address] [place] [address], [place] [id number] Jun, [facility] [address] [id number] [address] [place] [address], [place] [id number] May, [facility] [address] [id number] [address] [place] [address], [place] [id number] May, [facility] [address] [id number] [address] [place] [address], [place] [address] May, [facility] [address] [id number] [address] [place] [address], [place] [id number] 09 Jul, 2010 [facility] [address] [id number] [address] [place] [id number] 08 Jul, 2010 [facility] [address] [id number] [address] [place] [phone] Jun, [facility] [address] [id number] [address] [place] [id number] May, [facility] [address] [id number] [address] [place] [id number] May, [facility] [address] [id number] [address] [place] [phone] Aug, [facility] [address] [id number] [address] [place] [id number] Jul, [facility] [address] [id number] [address] [place] [phone] Jun, [facility] [address] [id number] [address] [place] [phone] Jun, [facility] [address] [id number] [address] [place] [id number] Jun, [facility] [address] [id number] [address] [place] [id number] Jun, [facility] [address] [id number] [address] [place] [id number] Jun, [facility] [address] [id number] [address] [place] [id number] May, [facility] [address] [id number] [address] [place] [id number] Sep, IMMUNIZATIONS No Known Immunizations SOCIAL HISTORY Never Assessed REASON FOR VISIT Refill request PLAN OF CARE VITAL SIGNS MEDICATIONS Medication Instructions Dosage Frequency Start Date End Date Duration S tatus Ventolin HFA 108 (90 Base) MCG/ACT Inhalation every 4 hrs 2 puffs a s needed 4h Active Levothyroxine Sodium 175 MCG Orally Once a day 1 tablet on an empty stomach in the morning 24h 30 days Active RESULTS No Results PROCEDURES No [...]
--- OUTSIDE RECORDS SUMMARY | 2020-01-28 14:41 | XMS REPORT ---
Author Author Katarina RODRIGUEZ Organization [facility] Address [address] [place] [address] Care Team Providers Care Garnett Machine Operator Name Role Phone GEORGINA RODRIGUEZ Unavailable PROBLEMS Type Condition ICD9-CM Code AWH89-LT Code Onset Dates Condition S tatus SNOMED Code Problem Encounter for immunization Z23 Act essie 900007148 Problem Urinary incontinence, unspecified type R32 Active 368279350 Problem History of cataract surgery Z98.49 Ac tive 237572721 Problem Chronic atrial fibrillation I48.2 Ac tive 764728729 Problem Essential hypertension I10 Active 80190938 Problem Morbid obesity, unspecified obesity type E66.01 Active 970770422 Problem 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 214244990 Problem Other urinary incontinence N39.498 Act essie 786512045 Problem Irregular heart beats I49.9 Active 346849266 Problem Eye exam normal Z01.00 Active 2438 13942 Problem Cigarette nicotine dependence without complication F17.210 Active 01460866 Problem Acquired hypothyroidism E03.9 Active 721757323 Problem Abnormal mammogram R92.8 Active 1 56638035 Problem High risk medication use Z79.899 Activ e 290018393 Problem Osteoarthritis M19.90 Active 70747 5006 Problem Diabetes E11.9 Active 958247412 ALLERGIES No Information ENCOUNTERS Encounter Location Date Diagnosis [facility] [address] [facility] [id number] [address] [place] [address] Apr, [facility] [address] [facility] [id number] [address] [place] [address] Mar, Osteoarthritis M19.90 [facility] [address] [facility] [id number] [address] [place] [address] Feb, Osteoarthritis M19.90 [facility] [address] [facility] [id number] [address] [place] [address] Jan, Osteoarthritis M19.90 [facility] [address] [facility] [id number] [address] [place] [address] December, [facility] [address] [facility] [id number] [address] [place] [address] December, Osteoarthritis M19.90 [facility] [address] [facility] [id number] [address] [place] [address] Nov, Diabetes E11.9 ; senior care ( current) use of anticoagulants Z79.01 ; Acquired hypothyroidism E03.9 ; Cigarette nicotine dependence without complication F17.210 ; Osteoarthritis M19.90 ; BMI 45.0-49.9, adult Z68.42 and Chronic atrial fibrillation I48.2 [facility] [address] [facility] [id number] [address] [place] [address] Nov, Osteoarthritis M19.90 [facility] [address] [facility] [id number] [address] [place] [address] Oct, Osteoarthritis M19.90 [facility] [address] [facility] [id number] [address] [place] [address] Oct, 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 [facility] [address] [facility] [id number] [address] [place] [address] Sep, Osteoarthritis M19.90 [facility] [address] [facility] [id number] [address] [place] [address] Sep, [facility] [address] [facility] [id number] [address] [place] [address] Aug, Osteoarthritis M19.90 [facility] [address] [facility] [id number] [address] [place] [address] Jul, Osteoarthritis M19.90 [facility] [address] [facility] [id number] [address] [place] [address] Jul, Osteoarthritis M19.90 [facility] [address] [facility] [id number] [address] [place] [address] Jun, Diabetes E11.9 ; Encounter f or immunization Z23 ; senior care (current) use of anticoagulants Z79.01 ; Chronic atrial fibrillation I48.2 ; Osteoarthritis M19.90 ; Tobacco abuse Z72.0 and Bug bite, initial encounter W57.XXXA [facility] [address] [facility] [id number] [address] [place] [address] May, Osteoarthritis M19.90 [facility] [address] [id number] [address] [place] [address] Apr, Osteoarthritis M19.90 [facility] [address] [facility] [id number] [address] [place] [address] Mar, Chronic atrial fibrillation I48.2 [facility] [address] [facility] [id number] [address] [place] [address] Mar, [facility] [address] [id number] [address] [place] [address] Mar, Osteoarthritis M19.90 [facility] [address] [id number] [address] [place] [address] Mar, senior care (current) use of a nticoagulants Z79.01 and Chronic atrial fibrillation I48.2 [facility] [address] [facility] [id number] [address] [place] [address] Mar, Chronic atrial fibrillation I48.2 and 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 [facility] [address] [id number] [address] [place] [address] Mar, 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 [facility] [address] [facility] [id number] [address] [place] [address] Mar, senior care (current) use of a nticoagulants Z79.01 [facility] [address] [facility] [id number] [address] [place] [address] Mar, Osteoarthritis M19.90 [facility] [address] [id number] [address] [place] [address] Feb, Encounter for screening mamm ogram for malignant neoplasm of breast Z12.31 [facility] [address] [facility] [id number] [address] [place] [address] Feb, Osteoarthritis M19.90 [facility] [address] [facility] [id number] [address] [place] [address] Jan, [facility] [address] [facility] [id number] [address] [place] [address] Jan, 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 ; Diabetes E11.9 ; Osteoarthritis M19.90 and Breast cancer screening Z12.39 [facility] [address] [facility] [id number] [address] [place] [address] Jan, Osteoarthritis M19.90 [facility] [address] [facility] [id number] [address] [place] [address] Jan, Osteoarthritis M19.90 [facility] [address] [id number] [address] [place] [address] Jan, [facility] [address] [facility] [id number] [address] [place] [address] December, Osteoarthritis M19.90 [facility] [address] [facility] [id number] [address] [place] [address] December, Osteoarthritis M19.90 [facility] [id number] [place] [id number] Nov, [facility] [address] [id number] [address] [place] [address] Nov, [facility] [address] [facility] [id number] [address] [place] [address] Nov, [facility] [address] [facility] [id number] [address] [place] [address] Nov, Diabetes E11.9 [facility] [address] [facility] [id number] [address] [place] [address] Nov, [facility] [address] [facility] [id number] [address] [place] [address] Oct, Osteoarthritis M19.90 [facility] [address] [facility] [id number] [address] [place] [address] Oct, Osteoarthritis M19.90 ; senior care (current) use of anticoagulants Z79.01 ; Diabetes E11.9 ; Cigarette nicotine dependence without complication F17.210 and Chronic atrial fibrillation I48.2 [facility] [address] [facility] [id number] [address] [place] [address] Aug, [facility] [address] [facility] [id number] [address] [place] [address] Aug, 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 [facility] [address] [facility] [id number] [address] [place] [address] Aug, [facility] [id number] [place] [address] [id number] Aug, [facility] [address] [place] [id number] [address] [place] [address] Aug, [facility] [address] [place] [id number] [address] [place] [address] Aug, [facility] [address] [place] [id number] [place] [address] [id number] Aug, [facility] [address] [place] [id number] Aug Osteoarthritis M19.90 and Essential hypertension I10 [facility] [address] [place] [id number] [address] [place] [address] Aug, Other urinary incontinence N 39.498 [facility] [address] [place] [id number] [address] [place] [address] Jul, Osteoarthritis M19.90 [facility] [address] [place] [id number] [place] [address] Jun, Diabetes E11.9 ; Encounter f or immunization Z23 ; Osteoarthritis M19.90 ; 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 ; Cigarette nicotine dependence without complication F17.210 ; Acquired hypothyroidism E03.9 ; Morbid obesity, unspecified obesity type E66.01 and Irregular heart beats I49.9 [place] [address] [place] [id number] [address] [place] [address] Jun, Osteoarthritis M19.90 [place] [address] [place] [id number] [place] [address] May, Osteoarthritis M19.90 [place] [address] [address] May, Urinary incontinence, unspec ified type R32 [place] [address] [address] May, [place] [address] [address] Apr, Osteoarthritis M19.90 [place] [address] [address] Apr, 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 [facility] [id number] [place] [address] Apr, [place] [address] [place] [id number] [address] [place] [address] Apr, Osteoarthritis M19.90 [place] [address] [place] [id number] [address] [place] [address] Mar, Diabetes E11.9 ; Hypothyroid ism, unspecified type E03.9 ; Osteoarthritis M19.90 ; High risk medication use Z79.899 ; Cigarette nicotine dependence without complication F17.210 and Morbid obesity, unspecified obesity type E66.01 [place] [address] [place] [id number] [address] [place] [address] Mar, Osteoarthritis M19.90 [facility] [address] [facility] [id number] [address] [place] [address] December, Osteoarthritis M19.90 [facility] [address] [facility] [id number] [address] [place] [address] December, [facility] [address] [facility] [id number] [address] [place] [address] Oct, [facility] [address] [facility] [id number] [address] [place] [address] Oct, [facility] [address] [facility] [id number] [address] [place] [address] Aug, [facility] [address] [facility] [id number] [address] [place] [address] Jul, [facility] [address] [facility] [id number] [address] [place] [address] Jul, [facility] [address] [facility] [id number] [address] [place] [address] Jul, Diabetes E11.9 ; Encounter f or immunization Z23 ; Abnormal mammogram R92.8 ; Acquired hypothyroidism E03.9 ; High risk medication use Z79.899 ; Osteoarthritis M19.90 and Cigarette nicotine dependence without complication F17.210 [facility] [address] [facility] [id number] [address] [place] [address] Jul, [facility] [address] [facility] [id number] [address] [place] [address] Jun, Abnormal mammogram R92.8 [facility] [address] [facility] [id number] [address] [place] [address] Apr, [facility] [address] [facility] [id number] [address] [place] [address] Apr, [facility] [address] [facility] [id number] [address] [place] [address] Mar, [facility] [address] [id number] [address] [place] [address] Mar, Current use of fpc ant 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 V58.61 [facility] [address] [id number] [address] [place] [address] Feb, [facility] [address] [id number] [address] [place] [address] Jan, [facility] [address] [id number] [address] [place] [address] December, [facility] [address] [id number] [address] [place] [address] Nov, [facility] [address] [id number] [address] [place] [address] Nov, [facility] [address] [id number] [address] [place] [address] Oct, [facility] [address] [id number] [address] [place] [address] Oct, [facility] [address] [id number] [address] [place] [address] Oct, [facility] [address] [id number] [address] [place] [address] Oct, [facility] [address] [id number] [address] [place] [address] Oct, [facility] [address] [id number] [address] [place] [address] Oct, [facility] [address] [id number] [address] [place] [address] Sep, [facility] [address] [id number] [address] [place] [address] Sep, [facility] [address] [id number] [address] [place] [address] Sep, [facility] [address] [id number] [address] [place] [address], [place] [address] 05 Sep, 2014 [facility] [address] [id number] [address] [place] [address], [place] [address] Aug, [facility] [address] [id number] [address] [place] [address], [place] [address] Aug, [facility] [address] [id number] [address] [place] [address], [place] [address] Aug, [facility] [address] [id number] [address] [place] [address], [place] [address] Aug, [facility] [address] [id number] [address] [place] [address], [place] [address] Aug, [facility] [address] [id number] [address] [place] [address], [place] [address] Aug, [facility] [address] [id number] [address] [place] [address], [place] [address] Jul, [facility] [address] [id number] [address] [place] [address], [place] [address] Jul, [facility] [address] [id number] [address] [place] [address], [place] [address] Jul, [facility] [address] [id number] [address] [place] [address], [place] [address] Jul, [facility] [address] [id number] [address] [place] [address], [place] [address] Jul, [facility] [address] [id number] [address] [place] [address], [place] [address] Jul, [facility] [address] [id number] [address] [place] [address], [place] [address] Jun, [facility] [address] [id number] [address] [place] [address], [place] [address] Jun, [facility] [address] [id number] [address] [place] [address], [place] [address] Jun, [facility] [address] [id number] [address] [place] [address], [place] [address] Jun, [facility] [address] [id number] [address] [place] [address], [place] [address] Jun, [facility] [address] [id number] [address] [place] [address], [place] [address] Jun, [facility] [address] [id number] [address] [place] [address], [place] [address] Jun, [facility] [address] [id number] [address] [place] [address], [place] [address] Jun, [facility] [address] [id number] [address] [place] [address], [place] [address] Jun, [facility] [address] [id number] [address] [place] [address], [place] [address] May, [facility] [address] [id number] [address] [place] [address], [place] [address] May, [facility] [address] [id number] [address] [place] [address], [place] [address] Apr, [facility] [address] [id number] [address] [place] [address], [place] [address] Apr, [facility] [address] [id number] [address] [place] [address], [place] [address] Apr, [facility] [address] [id number] [address] [place] [address], [place] [address] Apr, [facility] [address] [id number] [address] [place] [address], [place] [address] Apr, [facility] [address] [id number] [address] [place] [address], [place] [address] Apr, [facility] [address] [id number] [address] [place] [address], [place] [address] Apr, [facility] [address] [id number] [address] [place] [address], [place] [address] Apr, [facility] [address] [id number] [address] [place] [address], [place] [address] Apr, [facility] [address] [id number] [address] [place] [address], [place] [address] Apr, [facility] [address] [id number] [address] [place] [address], [place] [address] Mar, [facility] [address] [id number] [address] [place] [address], [place] [address] Mar, [facility] [address] [id number] [address] [place] [address], [place] [address] Mar, [facility] [address] [id number] [address] [place] [address], [place] [address] Mar, [facility] [address] [id number] [address] [place] [address], [place] [address] Mar, [facility] [address] [id number] [address] [place] [address], [place] [address] Mar, [facility] [address] [id number] [address] [place] [address], [place] [address] Feb, [facility] [address] [id number] [address] [place] [address], [place] [address] Feb, [facility] [address] [id number] [address] [place] [address], [place] [address] Feb, [facility] [address] [id number] [address] [place] [address], [place] [address] Feb, [facility] [address] [id number] [address] [place] [address], [place] [address] Jan, [facility] [address] [id number] [address] [place] [address], [place] [address] Jan, [facility] [address] [id number] [address] [place] [address], [place] [address] Jan, [facility] [address] [id number] [address] [place] [address], [place] [address] Jan, [facility] [address] [id number] [address] [place] [address], [place] [address] Oct, [facility] [address] [id number] [address] [place] [address], [place] [address] Oct, [facility] [address] [id number] [address] [place] [address], [place] [address] Sep, [facility] [address] [id number] [address] [place] [address], [place] [address] Sep, [facility] [address] [id number] [address] [place] [address], [place] [address] Sep, [facility] [address] [id number] [address] [place] [address], [place] [address] Sep, [facility] [address] [id number] [address] [place] [address], [place] [address] Aug, [facility] [address] [id number] [address] [place] [address], [place] [address] Aug, [facility] [address] [id number] [address] [place] [address], [place] [address] Aug, [facility] [address] [id number] [address] [place] [address], [place] [address] Aug, [facility] [address] [id number] [address] [place] [address], [place] [address] Jul, [facility] [address] [id number] [address] [place] [address], [place] [id number] 30 Jul, 2013 [facility] [address] [id number] [address] [place] [address], [place] [address] Jul, [facility] [address] [id number] [address] [place] [address], [place] [address] Jul, [facility] [address] [id number] [address] [place] [address] [address] Jul, [facility] [address] [id number] [address] [place] [address], [place] [address] Jul, [facility] [address] [id number] [address] [place] [address], [place] [address] Jun, [facility] [address] [id number] [address] [place] [address], [place] [address] Jun, [facility] [address] [id number] [address] [place] [address], [place] [address] Jun, [facility] [address] [id number] [address] [place] [address], [place] [address] Jun, [facility] [address] [id number] [address] [place] [address], [place] [address] Jun, [facility] [address] [id number] [address] [place] [address], [place] [address] Jun, [facility] [address] [id number] [address] [place] [address], [place] [address] May, [facility] [address] [id number] [address] [place] [address], [place] [address] May, [facility] [address] [id number] [address] [place] [address], [place] [address] May, [facility] [address] [id number] [address] [place] [address] May, [facility] [address] [id number] [address] [place] [address] May, [facility] [address] [id number] [address] [place] [address], [place] [address] May, [facility] [address] [id number] [address] [place] [address] May, [facility] [address] [id number] [address] [place] [address] May, [facility] [address] [id number] [address] [place] [address], [place] [address] Apr, [facility] [address] [id number] [address] [place] [address], [place] [address] Apr, [facility] [address] [id number] [address] [place] [address], [place] [address] Mar, [facility] [address] [id number] [address] [place] [address], [place] [address] Mar, [facility] [address] [id number] [address] [place] [address], [place] [address] Mar, [facility] [address] [id number] [address] [place] [address], [place] [address] Mar, [facility] [address] [id number] [address] [place] [address], [place] [address] Feb, [facility] [address] [id number] [address] [place] [address], [place] [address] Jan, [facility] [address] [id number] [address] [place] [address], [place] [address] December, [facility] [address] [id number] [address] [place] [address], [place] [id number] December, [facility] [address] [id number] [address] [place] [address], [place] [address] December, [facility] [address] [id number] [address] [place] [address], [place] [address] Nov, [facility] [address] [id number] [address] [place] [address], [place] [address] Nov, [facility] [address] [id number] [address] [place] [address], [place] [address] Sep, [facility] [address] [id number] [address] [place] [address], [place] [address] Sep, [facility] [address] [id number] [address] [place] [address], [place] [address] Sep, [facility] [address] [id number] [address] [place] [address], [place] [address] 13 Sep, 2012 [facility] [address] [id number] [address] [place] [address], [place] [address] 30 Aug, 2012 [facility] [address] [id number] [address] [place] [address], [place] [address] Aug, [facility] [address] [id number] [address] [place] [address], [place] [address] Aug, [facility] [address] [id number] [address] [place] [address], [place] [address] Aug, [facility] [address] [id number] [address] [place] [address], [place] [address] Jul, [facility] [address] [id number] [address] [place] [address], [place] [address] Jul, [facility] [address] [id number] [address] [place] [address], [place] [address] Jul, [facility] [address] [id number] [address] [place] [address], [place] [address] Jul, [facility] [address] [id number] [address] [place] [address] Jun, [facility] [address] [id number] [address] [place] [address] Jun, [facility] [address] [id number] [address] [place] [address] Jun, [facility] [address] [id number] [address] [place] [address], [place] [address] Jun, [facility] [address] [id number] [address] [place] [address], [place] [address] May, [facility] [address] [id number] [address] [place] [address] May, [facility] [address] [id number] [address] [place] [address] May, [facility] [address] [id number] [address] [place] [address], [place] [address] May, [facility] [address] [id number] [address] [place] [address], [place] [address] May, [facility] [address] [id number] [address] [place] [address], [place] [address] 10 Apr, 2012 [facility] [address] [id number] [address] [place] [address], [place] [address] 08 Apr, 2012 [facility] [address] [id number] [address] [place] [address], [place] [address] 07 Apr, 2012 [facility] [address] [id number] [address] [place] [address], [place] [address] 06 Apr, 2012 [facility] [address] [id number] [address] [place] [address], [place] [address] Mar, [facility] [address] [id number] [address] [place] [address], [place] [address] Mar, [facility] [address] [id number] [address] [place] [address], [place] [address] Feb, [facility] [address] [id number] [address] [place] [address], [place] [address] Feb, [facility] [address] [id number] [address] [place] [address], [place] [address] Feb, [facility] [address] [id number] [address] [place] [address], [place] [address] Jan, [facility] [address] [id number] [address] [place] [address], [place] [address] Jan, [facility] [address] [id number] [address] [place] [address], [place] [address] December, [facility] [address] [id number] [address] [place] [address], [place] [address] December, [facility] [address] [id number] [address] [place] [address], [place] [address] Nov, [facility] [address] [id number] [address] [place] [address], [place] [address] Oct, [facility] [address] [id number] [address] [place] [address], [place] [address] Oct, [facility] [address] [id number] [address] [place] [address], [place] [address] Sep, [facility] [address] [id number] [address] [place] [address], [place] [address] Sep, [facility] [address] [id number] [address] [place] [address], [place] [address] Aug, [facility] [address] [id number] [address] [place] [address], [place] [address] Aug, [facility] [address] [id number] [address] [place] [address], [place] [address] Jul, [facility] [address] [id number] [address] [place] [address], [place] [address] Jul, [facility] [address] [id number] [address] [place] [address], [place] [address] Jul, [facility] [address] [id number] [address] [place] [address], [place] [address] Jun, [facility] [address] [id number] [address] [place] [address], [place] [address] Jun, [facility] [address] [id number] [address] [place] [address], [place] [address] May, [facility] [address] [id number] [address] [place] [address], [place] [address] May, [facility] [address] [id number] [address] [place] [address], [place] [address] May, [facility] [address] [id number] [address] [place] [address], [place] [address] Jul, [facility] [address] [id number] [address] [place] [address] Jul, [facility] [address] [id number] [address] [place] [address] Jun, [facility] [address] [id number] [address] [place] [address] May, [facility] [address] [id number] [address] [place] [address] May, [facility] [address] [id number] [address] [place] [address] Aug, [facility] [address] [id number] [address] [place] [address] Jul, [facility] [address] [id number] [address] [place] [address] Jun, [facility] [address] [id number] [address] [place] [address] Jun, [facility] [address] [id number] [address] [place] [address] Jun, [facility] [address] [id number] [address] [place] [address] Jun, [facility] [address] [id number] [address] [place] [address] Jun, [facility] [address] [id number] [address] [place] [address] May, [facility] [address] [id number] [address] [place] [address] Sep, IMMUNIZATIONS No Known Immunizations SOCIAL HISTORY Never Assessed REASON FOR VISIT Controlled Med Refill 12/29/17 PLAN OF CARE VITAL SIGNS MEDICATIONS Medication [...]
--- OUTSIDE RECORDS SUMMARY | 2020-01-28 14:42 | XMS REPORT ---
Author Author Katarina RODRIGUEZ Organization [facility] Address [address] [place] [address] Care Team Providers Care Interior Design Professional Name Role Phone GEORGINA RODRIGUEZ Unavailable PROBLEMS Type Condition ICD9-CM Code CAV02-HD Code Onset Dates Condition S tatus SNOMED Code Problem Encounter for immunization Z23 Act essie [id number] Problem Urinary incontinence, unspecified type R32 Active 160491893 Problem History of cataract surgery Z98.49 Ac tive 692855777 Problem Chronic atrial fibrillation I48.2 Ac tive 361260943 Problem Essential hypertension I10 Active 92666465 Problem Morbid obesity, unspecified obesity type E66.01 Active 065416797 Problem 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 398102452 Problem Other urinary incontinence N39.498 Act essie 266885412 Problem Irregular heart beats I49.9 Active 302304691 Problem Eye exam normal Z01.00 Active 2438 93250 Problem Cigarette nicotine dependence without complication F17.210 Active 14529219 Problem Acquired hypothyroidism E03.9 Active 813694375 Problem Abnormal mammogram R92.8 Active 1 84482242 Problem High risk medication use Z79.899 Activ e 333305071 Problem Osteoarthritis M19.90 Active 62218 5006 Problem Diabetes E11.9 Active 660191261 ALLERGIES Substance Reaction Event Type Date Status Benadryl itching Drug Allergy Nov, Active ENCOUNTERS Encounter Location Date Diagnosis [facility] [address] [facility] [id number] [address] [place] [phone] Apr, [facility] [address] [facility] [id number] [address] [place] [phone] Feb, Osteoarthritis M19.90 [facility] [address] [facility] [id number] [address] [place] [address] Jan, Osteoarthritis M19.90 [facility] [address] [facility] [id number] [address] [place] [phone] December, [facility] [address] [facility] [id number] [address] [place] [phone] December, Osteoarthritis M19.90 [facility] [address] 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 [id number] [address] [place] [address] Nov, Osteoarthritis M19.90 [facility] [address] [facility] [id number] [address] [place] [address] Oct, Osteoarthritis M19.90 [facility] [address] 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 [id number] [address] [place] [address] Sep, Osteoarthritis M19.90 [facility] [address] [facility] [id number] [address] [place] [phone] Sep, [facility] [address] [facility] [id number] [address] [place] [phone] Aug, Osteoarthritis M19.90 [facility] [address] [facility] [id number] [address] [place] [phone] Jul, Osteoarthritis M19.90 [facility] [address] [place] [id number] [address] [place] [address] Jul, Osteoarthritis M19.90 [facility] [address] 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 ; Chronic atrial fibrillation I48.2 ; Osteoarthritis M19.90 ; Tobacco abuse Z72.0 and Bug bite, initial encounter W57.XXXA [facility] [address] [id number] [address] [place] [address] May, Osteoarthritis M19.90 [facility] [address] [id number] [address] [place] [phone] Apr, Osteoarthritis M19.90 [place] [address] [id number] [address] [place] [phone] Mar, Chronic atrial fibrillation I48.2 [place] [address] [facility] [id number] [address] [place] [phone] Mar, [place] [address] [id number] [address] [place] [phone] Mar, Osteoarthritis M19.90 [place] [address] [id number] [address] [place] [phone] Mar, skilled nursing (current) use of a nticoagulants Z79.01 and Chronic atrial fibrillation I48.2 [place] [address] 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 [id number] [address] [place] [address] December, Osteoarthritis M19.90 [facility] [address] [facility] [id number] [address] [place] [phone] December, Osteoarthritis M19.90 [facility] [address] [id number] [place] [id number] Nov, [facility] [address] [id number] [address] [place] [phone] Nov, [facility] [address] [facility] [id number] [address] [place] [phone] Nov, [facility] [address] [facility] [id number] [address] [place] [phone] Nov, Diabetes E11.9 [facility] [address] [id number] [address] [place] [phone] Nov, [facility] [address] [facility] [id number] [address] [place] [address] Oct, Osteoarthritis M19.90 [facility] [address] 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 [id number] [address] [place] [phone] Aug, [facility] [address] [facility] [id number] [address] [place] [phone] Aug, skilled nursing (current) use of a nticoagulants Z79.01 [facility] [address] [place] [id number] [address] [place] [phone] Aug, [facility] [address] [place] [id number] [place] [address] [id number] Aug, [facility] [address] [facility] [id number] [address] [place] [phone] Aug, [facility] [address] [place] [id number] [address] [place] [phone] Aug, [facility] [address] [id number] [id number] Aug, [employer] [facility] [address] [place] [id number] Aug Osteoarthritis M19.90 and Essential hypertension I10 [facility] [address] [facility] [id number] [address] [place] [address] Aug, Other urinary incontinence N 39.498 [facility] [address] [facility] [id number] [address] [place] [phone] Jul, Osteoarthritis M19.90 [facility] [address] 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 [id number] [address] [place] [phone] Jun, Osteoarthritis M19.90 [facility] [address] [facility] [id number] [address] [place] [phone] May, Osteoarthritis M19.90 [facility] [address] [facility] [id number] [address] [place] [phone] May, Urinary incontinence, unspec ified type R32 [facility] [address] [facility] [id number] [address] [place] [id number] May, [facility] [address] [place] [id number] [address] [place] [phone] Apr, Osteoarthritis M19.90 [facility] [address] [facility] [id number] [address] [place] [phone] Apr, skilled nursing (current) use of a nticoagulants Z79.01 [facility] [address] [facility] [id number] [address] [place] [phone] Apr, [facility] [address] [facility] [id number] [address] [place] [phone] Apr, Osteoarthritis M19.90 [facility] [address] [facility] [id number] [address] [place] [phone] Mar, Diabetes E11.9 ; Hypothyroid ism, unspecified type E03.9 ; Osteoarthritis M19.90 ; High risk medication use Z79.899 ; Cigarette nicotine dependence without complication F17.210 and Morbid obesity, unspecified obesity type E66.01 [facility] [address] [facility] [id number] [address] [place] [phone] Mar, Osteoarthritis M19.90 [facility] [address] [place] [id number] [address] [place] [phone] December, Osteoarthritis M19.90 [facility] [address] [place] [id number] [place] [phone] December, [facility] [address] [facility] [id number] [address] [place] [phone] Oct, [facility] [address] [phone] Oct, [facility] [address] [facility] [id number] [place] [phone] Aug, [facility] [address] [phone] Jul, [facility] [address] [place] [id number] [place] [phone] Jul, [facility] [address] [phone] Jul, Diabetes E11.9 ; Encounter f or immunization Z23 ; Abnormal mammogram R92.8 ; Acquired hypothyroidism E03.9 ; High risk medication use Z79.899 ; Osteoarthritis M19.90 and Cigarette nicotine dependence without complication F17.210 [facility] [address] [place] [id number] [address] [place] [phone] Jul, [facility] [address] [place] [id number] [address] [place] [phone] Jun, Abnormal mammogram R92.8 [facility] [address] [facility] [id number] [address] [place] [phone] Apr, [facility] [address] [place] [id number] [address] [place] [phone] Apr, [facility] [address] 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 [address] [id number] [address] [place] [address], [place] [address] Feb, [facility] [address] [id number] [address] [place] [phone] Jan, [facility] [address] [id number] [address] [place] [phone] December, [facility] [address] [id number] [address] [place] [phone] Nov, [facility] [address] [id number] [address] [place] [phone] Nov, [facility] [address] [id number] [address] [place] [phone] Oct, [facility] [address] [id number] [address] [place] [phone] Oct, [facility] [address] [id number] [address] [place] [phone] Oct, [facility] [address] [id number] [address] [place] [phone] Oct, [facility] [address] [id number] [address] [place] [phone] Oct, [facility] [address] [id number] [address] [place] [phone] Oct, [facility] [address] [id number] [address] [place] [phone] Sep, [facility] [address] [id number] [address] [place] [phone] Sep, [facility] [address] [id number] [address] [place] [phone] Sep, [facility] [address] [id number] [address] [place] [phone] Sep, [facility] [address] [id number] [address] [place] [address], [place] [address] Aug, [facility] [address] [id number] [address] [place] [address], [place] [address] Aug, [facility] [address] [id number] [address] [place] [address], [place] [address] Aug, [facility] [address] [id number] [address] [place] [address], [place] [address] Aug, [facility] [address] [id number] [address] [place] [address], [place] [address] Aug, [facility] [address] [id number] [address] [place] [address], [place] [address] Aug, [facility] [address] [id number] [address] [place] [address], [place] [address] Jul, [facility] [address] [id number] [address] [place] [address], [place] [address] Jul, [facility] [address] [id number] [address] [place] [address], [place] [address] Jul, [facility] [address] [id number] [address] [place] [address], [place] [address] Jul, [facility] [address] [id number] [address] [place] [address], [place] [address] Jul, [facility] [address] [id number] [address] [place] [address], [place] [address] Jul, [facility] [address] [id number] [address] [place] [address], [place] [address] Jun, [facility] [address] [id number] [address] [place] [address], [place] [address] Jun, [facility] [address] [id number] [address] [place] [address], [place] [address] Jun, [facility] [address] [id number] [address] [place] [address], [place] [address] Jun, [facility] [address] [id number] [address] [place] [address], [place] [address] Jun, [facility] [address] [id number] [address] [place] [address], [place] [address] Jun, [facility] [address] [id number] [address] [place] [address], [place] [address] Jun, [facility] [address] [id number] [address] [place] [address], [place] [address] Jun, [facility] [address] [id number] [address] [place] [address], [place] [address] Jun, [facility] [address] [id number] [address] [place] [address], [place] [address] May, [facility] [address] [id number] [address] [place] [address], [place] [address] May, [facility] [address] [id number] [address] [place] [address], [place] [address] Apr, [facility] [address] [id number] [address] [place] [address], [place] [address] Apr, [facility] [address] [id number] [address] [place] [address], [place] [address] Apr, [facility] [address] [id number] [address] [place] [address], [place] [address] Apr, [facility] [address] [id number] [address] [place] [address], [place] [address] 11 Apr, 2014 [facility] [address] [id number] [address] [place] [address], [place] [address] Apr, [facility] [address] [id number] [address] [place] [address], [place] [address] Apr, [facility] [address] [id number] [address] [place] [address], [place] [address] Apr, [facility] [address] [id number] [address] [place] [address], [place] [address] Apr, [facility] [address] [id number] [address] [place] [address], [place] [address] Apr, [facility] [address] [id number] [address] [place] [address], [place] [address] Mar, [facility] [address] [id number] [address] [place] [address], [place] [address] Mar, [facility] [address] [id number] [address] [place] [address], [place] [address] Mar, [facility] [address] [id number] [address] [place] [address], [place] [address] Mar, [facility] [address] [id number] [address] [place] [address], [place] [address] Mar, [facility] [address] [id number] [address] [place] [address], [place] [address] Mar, [facility] [address] [id number] [address] [place] [address], [place] [address] Feb, [facility] [address] [id number] [address] [place] [address], [place] [address] Feb, [facility] [address] [id number] [address] [place] [address], [place] [address] Feb, [facility] [address] [id number] [address] [place] [address], [place] [address] Feb, [facility] [address] [id number] [address] [place] [address], [place] [address] Jan, [facility] [address] [id number] [address] [place] [address], [place] [address] Jan, [facility] [address] [id number] [address] [place] [address], [place] [address] Jan, [facility] [address] [id number] [address] [place] [address], [place] [address] Jan, [facility] [address] [id number] [address] [place] [address], [place] [address] Oct, [facility] [address] [id number] [address] [place] [address], [place] [address] Oct, [facility] [address] [id number] [address] [place] [address], [place] [address] Sep, [facility] [address] [id number] [address] [place] [address], [place] [address] Sep, [facility] [address] [id number] [address] [place] [address], [place] [address] Sep, [facility] [address] [id number] [address] [place] [address], [place] [address] Sep, [facility] [address] [id number] [address] [place] [address], [place] [address] Aug, [facility] [address] [id number] [address] [place] [address], [place] [address] Aug, [facility] [address] [id number] [address] [place] [address], [place] [address] Aug, [facility] [address] [id number] [address] [place] [address], [place] [address] Aug, [facility] [address] [id number] [address] [place] [address], [place] [address] Jul, [facility] [address] [id number] [address] [place] [address], [place] [address] 30 Jul, 2013 [facility] [address] [id number] [address] [place] [address], [place] [address] Jul, [facility] [address] [id number] [address] [place] [address], [place] [address] Jul, [facility] [address] [id number] [address] [place] [address], [place] [address] Jul, [facility] [address] [id number] [address] [place] [address], [place] [address] Jul, [facility] [address] [id number] [address] [place] [place] [address], [place] [address] Jun, [facility] [address] [id number] [address] [place] [address], [place] [address] Jun, [facility] [address] [id number] [address] [place] [address], [place] [address] Jun, [facility] [address] [id number] [address] [place] [address], [place] [address] Jun, [facility] [address] [id number] [address] [place] [address], [place] [address] Jun, [facility] [address] [id number] [address] [place] [address], [place] [address] Jun, [facility] [address] [id number] [address] [place] [address], [place] [address] May, [facility] [address] [id number] [address] [place] [address], [place] [address] May, [facility] [address] [id number] [address] [place] [address], [place] [address] May, [facility] [address] [id number] [address] [place] [address], [place] [address] May, [facility] [address] [id number] [address] [place] [address], [place] [address] May, [facility] [address] [id number] [address] [place] [address], [place] [address] May, [facility] [address] [id number] [address] [place] [address], [place] [address] May, [facility] [address] [id number] [address] [place] [address], [place] [address] May, [facility] [address] [id number] [address] [place] [address], [place] [address] Apr, [facility] [address] [id number] [address] [place] [address], [place] [address] Apr, [facility] [address] [id number] [address] [place] [address], [place] [address] Mar, [facility] [address] [id number] [address] [place] [address], [place] [address] Mar, [facility] [address] [id number] [address] [place] [address], [place] [address] Mar, [facility] [address] [id number] [address] [place] [address], [place] [address] Mar, [facility] [address] [id number] [address] [place] [address], [place] [address] Feb, [facility] [address] [id number] [address] [place] [address], [place] [address] Jan, [facility] [address] [id number] [address] [place] [address], [place] [address] December, [facility] [address] [id number] [address] [place] [address], [place] [address] December, [facility] [address] [id number] [address] [place] [address], [place] [address] December, [facility] [address] [id number] [address] [place] [address], [place] [address] Nov, [facility] [address] [id number] [address] [place] [address], [place] [address] Nov, [facility] [address] [id number] [address] [place] [address], [place] [address] Sep, [facility] [address] [id number] [address] [place] [address], [place] [address] Sep, [facility] [address] [id number] [address] [place] [address], [place] [address] Sep, [facility] [address] [id number] [address] [place] [address] Sep, [facility] [address] [id number] [address] [place] [address], [place] [address] Aug, [facility] [address] [id number] [address] [place] [address] Aug, [facility] [address] [id number] [address] [place] [address], [place] [address] Aug, [facility] [address] [id number] [address] [place] [address] Aug, [facility] [address] [id number] [address] [place] [address], [place] [address] Jul, [facility] [address] [id number] [address] [place] [address], [place] [address] Jul, [facility] [address] [id number] [address] [place] [address] Jul, [facility] [address] [id number] [address] [place] [address], [place] [address] Jul, [facility] [address] [id number] [address] [place] [address], [place] [address] Jun, [facility] [address] [id number] [address] [place] [address] Jun, [facility] [address] [id number] [address] [place] [address], [place] [address] Jun, [facility] [address] [id number] [address] [place] [id number] Jun, [facility] [address] [id number] [address] [place] [address], [place] [address] May, [facility] [address] [id number] [address] [place] [address], [place] [address] May, [facility] [address] [id number] [address] [place] [address] May, [facility] [address] [id number] [address] [place] [address], [place] [address] May, [facility] [address] [id number] [address] [place] [address], [place] [address] 08 May, 2012 [facility] [address] [id number] [address] [place] [address], [place] [address] 10 Apr, 2012 [facility] [address] [id number] [address] [place] [address], [place] [address] 08 Apr, 2012 [facility] [address] [id number] [address] [place] [address], [place] [address] 07 Apr, 2012 [facility] [address] [id number] [address] [place] [address], [place] [address] 06 Apr, 2012 [facility] [address] [id number] [address] [place] [address], [place] [address] Mar, [facility] [address] [id number] [address] [place] [address], [place] [address] Mar, [facility] [address] [id number] [address] [place] [address], [place] [address] Feb, [facility] [address] [id number] [address] [place] [address], [place] [address] Feb, [facility] [address] [id number] [address] [place] [address], [place] [address] Feb, [facility] [address] [id number] [address] [place] [address], [place] [address] Jan, [facility] [address] [id number] [address] [place] [address], [place] [address] Jan, [facility] [address] [id number] [address] [place] [address], [place] [address] December, [facility] [address] [id number] [address] [place] [address], [place] [address] December, [facility] [address] [id number] [address] [place] [address] [address] Nov, [facility] [address] [id number] [address] [place] [address], [place] [address] Oct, [facility] [address] [id number] [address] [place] [address], [place] [address] Oct, [facility] [address] [id number] [address] [place] [address], [place] [address] Sep, [facility] [address] [id number] [address] [place] [address], [place] [address] Sep, [facility] [address] [id number] [address] [place] [address], [place] [address] Aug, [facility] [address] [id number] [address] [place] [address], [place] [address] Aug, [facility] [address] [id number] [address] [place] [address], [place] [address] Jul, [facility] [address] [id number] [address] [place] [address], [place] [address] Jul, [facility] [address] [id number] [address] [place] [address], [place] [address] Jul, [facility] [address] [id number] [address] [place] [address], [place] [address] Jun, [facility] [address] [id number] [address] [place] [address], [place] [address] Jun, [facility] [address] [id number] [address] [place] [address], [place] [address] May, [facility] [address] [id number] [address] [place] [address], [place] [address] May, [facility] [address] [id number] [address] [place] [address], [place] [address] May, [facility] [address] [id number] [address] [place] [address], [place] [address] Jul, [facility] [address] [id number] [address] [place] [address] 08 Jul, 2010 [facility] [address] [id number] [address] [place] [id number] 15 Jun, 2010 [facility] [address] [id number] [address] [place] [address] May, [facility] [address] [id number] [address] [place] [address] May, [facility] [address] [id number] [address] [place] [address] Aug, [facility] [address] [id number] [address] [place] [phone] Jul, [facility] [address] [id number] [address] [place] [phone] Jun, [facility] [address] [id number] [address] [place] [phone] Jun, [facility] [address] [id number] [address] [place] [id number] Jun, [facility] [address] [id number] [address] [place] [id number] Jun, [facility] [address] [id number] [address] [place] [phone] Jun, [facility] [address] [id number] [address] [place] [phone] May, [facility] [address] [id number] [address] [place] [id number] Sep, IMMUNIZATIONS No Known Immunizations SOCIAL HISTORY Never Assessed REASON FOR VISIT Diabetes -MA PLAN OF CARE Activity Details Follow Up 3 Months Reason:DM VITAL SIGNS Height 64 in 2017-12-07 Weight 276 lbs 2017-12-07 Temperature 97.4 degrees Fahrenheit 2017-12-07 Heart Rate 80 bpm 2017-12-07 Respiratory Rate 18 2017-12-07 BMI 47.37 kg/m2 2017-12-07 Blood pressure systolic 128 mmHg 2017-12-07 Blood pressure diastolic 82 mmHg 2017-12-07 MEDICATIONS Medication Instructions Dosage Frequency Start Date End Date Duration S tatus Levothyroxine Sodium 175 MCG Orally Once a day 1 tablet on an empty stomach in the morning 24h 90 days Active Walker N/A as directed Jul, Not- Taking Lisinopril 40 MG Orally Once a day 1 tablet 24h 90 d ays Active Lipitor 20 MG Orally Once a day 1 tablet 24h 90 days Active Nexium 40 MG Orally Once a day 1 capsule 24h Oct, 90 days Active Furosemide 40 mg Orally Once a day 1 tablet 24h 30 d ays Active Toviaz 8 MG Orally Once a day 1 tablet 24h Aug, Not-Taking Norvasc 5 TAKE ONE TABLET BY MOUTH DAILY 90 Not-Taking Januvia 100 MG Orally Once a day 1 tablet 24h 90 day s Active Tramadol HCl 50 mg Orally 2 times a day 2 tablets 12h Jul, 28 days Active Breo Ellipta 100-25 MCG/INH Inhalation Once a day 1 puff 24h Jun Active Accu-Chek Active ... .... 12h Nov, Active Coumadin 5 MG Orally Once a day 1 tablet on M,W,F,SUN 24h 12 weeks Active Amlodipine Besylate 5 MG Orally Once a day 1 tablet 24h 90 days Active Potassium Chloride Faiza ER 10 MEQ Orally Once a day 1 tablet 24h 90 days Active Lorcet 5-325 MG Orally every 8 hrs 1 tablet as needed 8h December, 17 30 days Not-Taking Ventolin HFA 108 (90 Base) MCG/ACT Inhalation every 4 hrs 2 puffs a s needed 4h Active Warfarin Sodium 7.5 MG Orally Once a day 1 tablet on T, , SAT 24h 12 weeks Active RESULTS No Results PROCEDURES Procedure Date Ordered Result Body Site GLYCATED HEMOGLOBIN TEST December 07, 2017 MICROALBUMIN, SEMIQUANT December 07, 2017 [facility] VISIT ESTABLISHED PATIENT December 07, [address] [facility] December 07, 2017 PROTHROMBIN TIME December 07, 2017 INSTRUCTIONS MEDICATIONS ADMINISTERED No Known Medications MEDICAL [...]
--- OUTSIDE RECORDS SUMMARY | 2020-01-28 14:42 | XMS REPORT ---
Author Author Katarina RODRIGUEZ Organization [facility] Address [address] [place] [address] Care Team Providers Care Architectural Intern Name Role Phone GEORGINA RODRIGUEZ Unavailable PROBLEMS Type Condition ICD9-CM Code JBN12-QF Code Onset Dates Condition S tatus SNOMED Code Problem Encounter for immunization Z23 Act essie 405104847 Problem Urinary incontinence, unspecified type R32 Active 551507047 Problem History of cataract surgery Z98.49 Ac tive 817475714 Problem Chronic atrial fibrillation I48.2 Ac tive 204793040 Problem Essential hypertension I10 Active 15084152 Problem Morbid obesity, unspecified obesity type E66.01 Active 834956581 Problem 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 of anticoagulants Z79.01 Active 804820972 Problem Other urinary incontinence N39.498 Act essie 163823645 Problem Irregular heart beats I49.9 Active 867580604 Problem Eye exam normal Z01.00 Active 2438 96851 Problem Cigarette nicotine dependence without complication F17.210 Active 24255709 Problem Acquired hypothyroidism E03.9 Active 104361805 Problem Abnormal mammogram R92.8 Active 1 14577299 Problem High risk medication use Z79.899 Activ e 349169335 Problem Osteoarthritis M19.90 Active 74269 5006 Problem Diabetes E11.9 Active 064230491 ALLERGIES No Information ENCOUNTERS Encounter Location Date Diagnosis [facility] [address] [facility] [id number] [address] [place] [address] Feb, Osteoarthritis M19.90 [facility] [address] [facility] [id number] [address] [place] [address] Jan, Osteoarthritis M19.90 [facility] [address] [facility] [id number] [address] [place] [address] December, [facility] [address] [facility] [id number] [address] [place] [address] December, Osteoarthritis M19.90 [facility] [address] [place] [id number] [address] [place] [address] Nov, Diabetes E11.9 ; 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 ( current) use of anticoagulants Z79.01 ; Acquired hypothyroidism E03.9 ; Cigarette nicotine dependence without complication F17.210 ; Osteoarthritis M19.90 ; BMI 45.0-49.9, adult Z68.42 and Chronic atrial fibrillation I48.2 [facility] [address] [address] Nov, Osteoarthritis M19.90 [facility] [address] [place] [id number] [place] [address] Oct, Osteoarthritis M19.90 [place] [address] [address] Oct, 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 of a nticoagulants Z79.01 [facility] [address] [place] [id number] [address] [place] [address] Sep, Osteoarthritis M19.90 [facility] [address] [place] [id number] [address] [place] [address] Sep, [facility] [address] [place] [id number] [address] [place] [address] Aug, Osteoarthritis M19.90 [facility] [address] [place] [id number] [address] [place] [address] Jul, Osteoarthritis M19.90 [facility] [address] [place] [id number] [address] [place] [address] Jul, Osteoarthritis M19.90 [facility] [address] [place] [id number] [address] [place] [address] Jun, Diabetes E11.9 ; Encounter f or immunization Z23 ; senior living (current) use of anticoagulants Z79.01 ; Chronic atrial fibrillation I48.2 ; Osteoarthritis M19.90 ; Tobacco abuse Z72.0 and Bug bite, initial encounter W57.XXXA [facility] [address] [id number] [address] [place] [address] May, Osteoarthritis M19.90 [facility] [address] [id number] [address] [place] [address] Apr, Osteoarthritis M19.90 [facility] [address] [id number] [address] [place] [address] Mar, Chronic atrial fibrillation I48.2 [facility] [address] [id number] [address] [place] [address] Mar, [place] [address] [id number] [address] [place] [address] Mar, Osteoarthritis M19.90 [facility] [address] [id number] [address] [place] [address] Mar, senior living (current) use of a nticoagulants Z79.01 and Chronic atrial fibrillation I48.2 [facility] [address] [id number] [address] [place] [address] Mar, Chronic atrial fibrillation I48.2 and senior living (current) use of anticoagulants Z79.01 [place] [address] [id number] [address] [place] [address] Mar, 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 of a nticoagulants Z79.01 [place] [address] [id number] [address] [place] [address] Mar, senior living (current) use of a nticoagulants Z79.01 [place] [address] [id number] [address] [place] [address] Mar, Osteoarthritis M19.90 [facility] [address] [facility] [id number] [address] [place] [address] Feb, Encounter for screening mamm ogram for malignant neoplasm of breast Z12.31 [facility] [address] [id number] [address] [place] [address] Feb, Osteoarthritis M19.90 [facility] [address] [id number] [address] [place] [address] Jan, [facility] [address] [facility] [id number] [address] [place] [address] Jan, 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 of a nticoagulants Z79.01 ; Diabetes E11.9 ; Osteoarthritis M19.90 and Breast cancer screening Z12.39 [facility] [address] [id number] [address] [place] [address] Jan, Osteoarthritis M19.90 [facility] [address] [id number] [address] [place] [address] Jan, Osteoarthritis M19.90 [facility] [address] [id number] [address] [place] [address] Jan, [facility] [address] [facility] [id number] [address] [place] [address] December, Osteoarthritis M19.90 [facility] [address] [id number] [address] [place] [address] December, Osteoarthritis M19.90 [facility] [id number] [place] [id number] Nov, [facility] [address] [id number] [address] [place] [address] Nov, [facility] [address] [facility] [id number] [address] [place] [address] Nov, [facility] [address] [facility] [id number] [address] [place] [address] Nov, Diabetes E11.9 [facility] [address] [id number] [address] [place] [address] Nov, [facility] [address] [facility] [id number] [address] [place] [address] Oct, Osteoarthritis M19.90 [facility] [address] [place] [id number] [address] [place] [address] Oct, Osteoarthritis M19.90 ; senior living (current) use of anticoagulants Z79.01 ; Diabetes E11.9 ; Cigarette nicotine dependence without complication F17.210 and Chronic atrial fibrillation I48.2 [place] [address] [place] [id number] [address] [place] [address] Aug, [place] [address] [place] [id number] [address] [place] [address] Aug, senior living (current) use of a nticoagulants Z79.01 [place] [address] [facility] [id number] [address] [place] [address] Aug, [facility] [address] [place] [id number] [place] [id number] Aug, [place] [address] [place] [id number] [address] [place] [address] Aug, [place] [address] [place] [id number] [address] [place] [address] Aug, [facility] [address] [place] [id number] [id number] Aug, [facility] [address] [id number] Aug Osteoarthritis M19.90 and Essential hypertension I10 [place] [address] [place] [id number] [address] [place] [address] Aug, Other urinary incontinence N 39.498 [place] [address] [place] [id number] [address] [place] [address] Jul, Osteoarthritis M19.90 [place] [address] [place] [id number] [address] [place] [address] Jun, Diabetes E11.9 ; Encounter f or immunization Z23 ; Osteoarthritis M19.90 ; 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 of anticoagulants Z79.01 ; Cigarette nicotine dependence without complication F17.210 ; Acquired hypothyroidism E03.9 ; Morbid obesity, unspecified obesity type E66.01 and Irregular heart beats I49.9 [facility] [address] [facility] [id number] [address] [place] [address] Jun, Osteoarthritis M19.90 [facility] [address] [facility] [id number] [address] [place] [address] May, Osteoarthritis M19.90 [facility] [address] [facility] [id number] [address] [place] [address] May, Urinary incontinence, unspec ified type R32 [facility] [address] [facility] [id number] [address] [place] [address] May, [facility] [address] [facility] [id number] [address] [place] [address] Apr, Osteoarthritis M19.90 [facility] [address] [facility] [id number] [address] [place] [address] Apr, 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 of a nticoagulants Z79.01 [facility] [address] [facility] [id number] [address] [place] [address] Apr, [facility] [address] [facility] [id number] [address] [place] [address] Apr, Osteoarthritis M19.90 [facility] [address] [facility] [id number] [address] [place] [address] Mar, Diabetes E11.9 ; Hypothyroid ism, unspecified type E03.9 ; Osteoarthritis M19.90 ; High risk medication use Z79.899 ; Cigarette nicotine dependence without complication F17.210 and Morbid obesity, unspecified obesity type E66.01 [facility] [address] [facility] [id number] [address] [place] [address] Mar, Osteoarthritis M19.90 [facility] [address] [facility] [id number] [address] [place] [address] December, Osteoarthritis M19.90 [facility] [address] [facility] [id number] [address] [place] [address] December, [facility] [address] [facility] [id number] [address] [place] [address] Oct, [facility] [address] [facility] [id number] [address] [place] [address] Oct, [facility] [address] [facility] [id number] [address] [place] [address] Aug, [facility] [address] [id number] [address] [place] [address] Jul, [facility] [address] [id number] [address] [place] [address] Jul, [facility] [address] [facility] [id number] [address] [place] [address] Jul, Diabetes E11.9 ; Encounter f or immunization Z23 ; Abnormal mammogram R92.8 ; Acquired hypothyroidism E03.9 ; High risk medication use Z79.899 ; Osteoarthritis M19.90 and Cigarette nicotine dependence without complication F17.210 [facility] [address] [facility] [id number] [address] [place] [address] Jul, [facility] [address] [facility] [id number] [address] [place] [address] Jun, Abnormal mammogram R92.8 [facility] [address] [facility] [id number] [address] [place] [address] Apr, [facility] [address] [facility] [id number] [address] [place] [address] Apr, [facility] [address] [facility] [id number] [address] [place] [address] Mar, [facility] [address] [facility] [id number] [address] [place] [address] Mar, Current use of mcc ant 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 V58.61 [facility] [address] [facility] [id number] [address] [place] [address] Feb, [facility] [address] [id number] [address] [place] [address], [place] [address] Jan, [facility] [address] [id number] [address] [place] [address], [place] [address] December, [facility] [address] [id number] [address] [place] [address], [place] [address] Nov, [facility] [address] [id number] [address] [place] [address], [place] [address] Nov, [facility] [address] [id number] [address] [place] [address], [place] [address] Oct, [facility] [address] [id number] [address] [place] [address], [place] [address] Oct, [facility] [address] [id number] [address] [place] [address], [place] [address] Oct, [facility] [address] [id number] [address] [place] [address], [place] [address] Oct, [facility] [address] [id number] [address] [place] [address], [place] [address] Oct, [facility] [address] [id number] [address] [place] [address], [place] [address] Oct, [facility] [address] [id number] [address] [place] [address], [place] [address] Sep, [facility] [address] [id number] [address] [place] [address], [place] [address] Sep, [facility] [address] [id number] [address] [place] [address], [place] [address] Sep, [facility] [address] [id number] [address] [place] [address], [place] [address] Sep, [facility] [address] [id number] [address] [place] [address], [place] [address] Aug, [facility] [address] [id number] [address] [place] [address], [place] [address] Aug, [facility] [address] [id number] [address] [place] [address], [place] [address] Aug, [facility] [address] [id number] [address] [place] [address], [place] [address] Aug, [facility] [address] [id number] [address] [place] [address], [place] [address] Aug, [facility] [address] [id number] [address] [place] [address], [place] [address] Aug, [facility] [address] [id number] [address] [place] [address], [place] [address] Jul, [facility] [address] [id number] [address] [place] [address], [place] [address] Jul, [facility] [address] [id number] [address] [place] [address], [place] [address] Jul, [facility] [address] [id number] [address] [place] [address], [place] [address] Jul, [facility] [address] [id number] [address] [place] [address], [place] [address] Jul, [facility] [address] [id number] [address] [place] [address], [place] [address] Jul, [facility] [address] [id number] [address] [place] [address], [place] [address] Jun, [facility] [address] [id number] [address] [place] [address], [place] [address] Jun, [facility] [address] [id number] [address] [place] [address], [place] [address] Jun, [facility] [address] [id number] [address] [place] [address], [place] [address] Jun, [facility] [address] [id number] [address] [place] [address], [place] [address] Jun, [facility] [address] [id number] [address] [place] [address], [place] [address] Jun, [facility] [address] [id number] [address] [place] [address], [place] [address] Jun, [facility] [address] [id number] [address] [place] [address], [place] [address] Jun, [facility] [address] [id number] [address] [place] [address], [place] [address] Jun, [facility] [address] [id number] [address] [place] [address], [place] [address] May, [facility] [address] [id number] [address] [place] [address], [place] [address] May, [facility] [address] [id number] [address] [place] [address], [place] [address] Apr, [facility] [address] [id number] [address] [place] [address], [place] [address] Apr, 2013 [facility] [address] [id number] [address] [place] [address], [place] [address] Apr, [facility] [address] [id number] [address] [place] [address], [place] [address] 23 Apr, 2013 [facility] [address] [id number] [address] [place] [address], [place] [address] 11 Apr, 2013 [facility] [address] [id number] [address] [place] [address], [place] [address] 11 Apr, 2013 [facility] [address] [id number] [address] [place] [address], [place] [address] 11 Apr, 2013 [facility] [address] [id number] [address] [place] [address], [place] [address] 11 Apr, 2013 [facility] [address] [id number] [address] [place] [address], [place] [address] 03 Apr, 2013 [facility] [address] [id number] [address] [place] [address], [place] [address] Apr, [facility] [address] [id number] [facility] [address] Mar, [facility] [address] [id number] [address] [place] [address], [place] [address] Mar, [facility] [address] [id number] [address] [place] [address], [place] [address] Mar, [facility] [address] [id number] [address] [place] [address], [place] [address] Mar, [facility] [address] [id number] [address] [place] [address], [place] [address] Mar, [facility] [address] [id number] [address] [place] [address], [place] [address] Mar, [facility] [address] [id number] [address] [place] [address], [place] [address] Feb, [facility] [address] [id number] [address] [place] [address], [place] [address] Feb, [facility] [address] [id number] [address] [place] [address], [place] [address] Feb, [facility] [address] [id number] [address] [place] [address], [place] [address] Feb, [facility] [address] [id number] [address] [place] [address], [place] [address] Jan, [facility] [address] [id number] [address] [place] [address], [place] [address] Jan, [facility] [address] [id number] [address] [place] [address], [place] [address] Jan, [facility] [address] [id number] [address] [place] [address], [place] [address] Jan, [facility] [address] [id number] [address] [place] [address], [place] [address] Oct, [facility] [address] [id number] [address] [place] [address], [place] [address] Oct, [facility] [address] [id number] [address] [place] [address], [place] [address] Sep, [facility] [address] [id number] [address] [place] [address], [place] [address] Sep, [facility] [address] [id number] [address] [place] [address], [place] [address] Sep, [facility] [address] [id number] [address] [place] [address], [place] [address] Sep, [facility] [address] [id number] [address] [place] [address], [place] [address] Aug, [facility] [address] [id number] [address] [place] [address], [place] [address] Aug, [facility] [address] [id number] [address] [place] [address], [place] [address] Aug, [facility] [address] [id number] [address] [place] [address], [place] [address] Aug, [facility] [address] [id number] [address] [place] [address], [place] [address] Jul, [facility] [address] [id number] [address] [place] [address], [place] [address] 30 Jul, 2013 [facility] [address] [id number] [address] [place] [address], [place] [address] Jul, [facility] [address] [id number] [address] [place] [address], [place] [address] Jul, [facility] [address] [id number] [address] [place] [address], [place] [address] Jul, [facility] [address] [id number] [address] [place] [address], [place] [address] Jul, [facility] [address] [id number] [address] [place] [address], [place] [address] Jun, [facility] [address] [id number] [address] [place] [address], [place] [address] Jun, [facility] [address] [id number] [address] [place] [address], [place] [address] Jun, [facility] [address] [id number] [address] [place] [address], [place] [address] Jun, [facility] [address] [id number] [address] [place] [address], [place] [address] Jun, [facility] [address] [id number] [address] [place] [address], [place] [address] Jun, [facility] [address] [id number] [address] [place] [address], [place] [address] May, [facility] [address] [id number] [address] [place] [address], [place] [address] May, [facility] [address] [id number] [address] [place] [address] May, [facility] [address] [id number] [address] [place] [address], [place] [address] May, [facility] [address] [id number] [address] [place] [address] May, [facility] [address] [id number] [address] [place] [address] May, [facility] [address] [id number] [address] [place] [address] May, [facility] [address] [id number] [address] [place] [address], [place] [address] May, [facility] [address] [id number] [address] [place] [address] 30 Apr, 2013 [facility] [address] [id number] [address] [place] [address] Apr, [facility] [address] [id number] [address] [place] [address] Mar, [facility] [address] [id number] [address] [place] [address], [place] [address] Mar, [facility] [address] [id number] [address] [place] [address], [place] [address] Mar, [facility] [address] [id number] [address] [place] [address], [place] [address] Mar, [facility] [address] [id number] [address] [place] [address], [place] [address] Feb, [facility] [address] [id number] [address] [place] [address], [place] [address] Jan, [facility] [address] [id number] [address] [place] [address], [place] [address] December, [facility] [address] [id number] [address] [place] [address], [place] [address] December, [facility] [address] [id number] [address] [place] [address], [place] [address] December, [facility] [address] [id number] [address] [place] [address], [place] [address] Nov, [facility] [address] [id number] [address] [place] [address], [place] [address] Nov, [facility] [address] [id number] [address] [place] [address], [place] [address] 14 Sep, 2012 [facility] [address] [id number] [address] [place] [address], [place] [address] 14 Sep, 2012 [facility] [address] [id number] [address] [place] [address], [place] [address] 14 Sep, 2012 [facility] [address] [id number] [address] [place] [address], [place] [address] Sep, [facility] [address] [id number] [address] [place] [address], [place] [address] Aug, [facility] [address] [id number] [address] [place] [address], [place] [address] Aug, [facility] [address] [id number] [address] [place] [address], [place] [address] Aug, [facility] [address] [id number] [address] [place] [address], [place] [address] 08 Aug, 2012 [facility] [address] [id number] [address] [place] [address], [place] [address] Jul, [facility] [address] [id number] [address] [place] [address], [place] [address] Jul, [facility] [address] [id number] [address] [place] [address], [place] [address] Jul, [facility] [address] [id number] [address] [place] [address], [place] [address] Jul, [facility] [address] [id number] [address] [place] [address], [place] [address] Jun, [facility] [address] [id number] [address] [place] [address], [place] [address] Jun, [facility] [address] [id number] [address] [place] [address], [place] [address] Jun, [facility] [address] [id number] [address] [place] [address], [place] [address] Jun, [facility] [address] [id number] [address] [place] [address], [place] [address] May, [facility] [address] [id number] [address] [place] [address], [place] [address] May, [facility] [address] [id number] [address] [place] [address], [place] [address] May, [facility] [address] [id number] [address] [place] [address], [place] [address] May, [facility] [address] [id number] [address] [place] [address], [place] [address] 08 May, 2012 [facility] [address] [id number] [address] [place] [address], [place] [address] 10 Apr, 2012 [facility] [address] [id number] [address] [place] [address], [place] [address] 08 Apr, 2012 [facility] [address] [id number] [address] [place] [address], [place] [address] 07 Apr, 2012 [facility] [address] [id number] [address] [place] [address], [place] [address] 06 Apr, 2012 [facility] [address] [id number] [address] [place] [address], [place] [address] Mar, [facility] [address] [id number] [address] [place] [address], [place] [address] Mar, [facility] [address] [id number] [address] [place] [address], [place] [address] Feb, [facility] [address] [id number] [address] [place] [address], [place] [address] Feb, [facility] [address] [id number] [address] [place] [address], [place] [address] Feb, [facility] [address] [id number] [address] [place] [address], [place] [address] Jan, [facility] [address] [id number] [address] [place] [address], [place] [address] Jan, [facility] [address] [id number] [address] [place] [address], [place] [address] December, [facility] [address] [id number] [address] [place] [address], [place] [address] December, [facility] [address] [id number] [address] [place] [address], [place] [address] Nov, [facility] [address] [id number] [address] [place] [address], [place] [address] Oct, [facility] [address] [id number] [address] [place] [address], [place] [address] Oct, [facility] [address] [id number] [address] [place] [address], [place] [address] Sep, [facility] [address] [id number] [address] [place] [address], [place] [address] Sep, [facility] [address] [id number] [address] [place] [address], [place] [address] Aug, [facility] [address] [id number] [address] [place] [address], [place] [address] Aug, [facility] [address] [id number] [address] [place] [address], [place] [address] Jul, [facility] [address] [id number] [address] [place] [address], [place] [address] Jul, [facility] [address] [id number] [address] [place] [address], [place] [address] Jul, [facility] [address] [id number] [address] [place] [address], [place] [address] Jun, [facility] [address] [id number] [address] [place] [address], [place] [address] Jun, [facility] [address] [id number] [address] [place] [address], [place] [address] 13 May, 2011 [facility] [address] [id number] [address] [place] [address], [place] [address] May, [facility] [address] [id number] [address] [place] [address], [place] [address] May, [facility] [address] [id number] [address] [place] [address], [place] [address] 09 Jul, 2010 [facility] [address] [id number] [address] [place] [address], [place] [address] 08 Jul, 2010 [facility] [address] [id number] [address] [place] [address], [place] [address] Jun, [facility] [address] [id number] [address] [place] [address] May, [facility] [address] [id number] [address] [place] [address] May, [facility] [address] [id number] [address] [place] [address] Aug, [facility] [address] [id number] [address] [place] [address] Jul, [facility] [address] [id number] [address] [place] [address] Jun, [facility] [address] [id number] [address] [place] [address] Jun, [facility] [address] [id number] [address] [place] [address] Jun, [facility] [address] [id number] [address] [place] [address] Jun, [facility] [address] [id number] [address] [place] [address] Jun, [facility] [address] [id number] [address] [place] [id number] May, [facility] [address] [id number] [address] [place] [address] Sep, IMMUNIZATIONS No Known Immunizations SOCIAL HISTORY Never Assessed REASON FOR VISIT Controlled Med Refill 11/03/17 PLAN OF CARE VITAL SIGNS MEDICATIONS Medication [...]
--- OUTSIDE RECORDS SUMMARY | 2020-01-28 14:42 | XMS REPORT ---
Author Author Katarina RODRIGUEZ Organization [facility] Address [address] [place] [address] Care Team Providers Care Cruise Coordinator Name Role Phone GEORGINA RODRIGUEZ Unavailable PROBLEMS Type Condition ICD9-CM Code TUA94-NI Code Onset Dates Condition S tatus SNOMED Code Problem Encounter for immunization Z23 Act essie 232841494 Problem Urinary incontinence, unspecified type R32 Active 299148798 Problem History of cataract surgery Z98.49 Ac tive 319970393 Problem Chronic atrial fibrillation I48.2 Ac tive 272173451 Problem Essential hypertension I10 Active 21431866 Problem Morbid obesity, unspecified obesity type E66.01 Active 076146991 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 Active 432208953 Problem Other urinary incontinence N39.498 Act essie 979523984 Problem Irregular heart beats I49.9 Active 102861237 Problem Eye exam normal Z01.00 Active 2438 65380 Problem Cigarette nicotine dependence without complication F17.210 Active 21743208 Problem Acquired hypothyroidism E03.9 Active 514583057 Problem Abnormal mammogram R92.8 Active 1 03966879 Problem High risk medication use Z79.899 Activ e 813166101 Problem Osteoarthritis M19.90 Active 64595 5006 Problem Diabetes E11.9 Active 690979622 ALLERGIES No Information ENCOUNTERS Encounter Location Date Diagnosis [facility] [address] [id number] [address] [place] [id number] Jan, Osteoarthritis M19.90 [facility] [address] [id number] [address] [place] [id number] December, [facility] [address] [id number] [address] [place] [id number] December, Osteoarthritis M19.90 [facility] [address] [id number] [address] [place] [id number] Nov, Diabetes E11.9 ; 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 ( current) use of anticoagulants Z79.01 ; Acquired hypothyroidism E03.9 ; Cigarette nicotine dependence without complication F17.210 ; Osteoarthritis M19.90 ; BMI 45.0-49.9, adult Z68.42 and Chronic atrial fibrillation I48.2 [facility] [address] [place] [address] Nov, Osteoarthritis M19.90 [facility] [address] [address] Oct, Osteoarthritis M19.90 [place] [address] [address] Oct, 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 (current) use of a nticoagulants Z79.01 [facility] [address] [place] [id number] Sep, Osteoarthritis M19.90 [place] [id number] [address] Sep, [place] [address] [address] Aug, Osteoarthritis M19.90 [facility] [address] [address] Jul, Osteoarthritis M19.90 [facility] [address] [place] [id number] [address] [place] [address] Jul, Osteoarthritis M19.90 [place] [address] [address] Jun, Diabetes E11.9 ; Encounter f or immunization Z23 ; 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 (current) use of anticoagulants Z79.01 ; Chronic atrial fibrillation I48.2 ; Osteoarthritis M19.90 ; Tobacco abuse Z72.0 and Bug bite, initial encounter W57.XXXA [place] [address] [address] May, Osteoarthritis M19.90 [facility] [address] [id number] [address] [place] [id number] Apr, Osteoarthritis M19.90 [facility] [address] [id number] [address] [place] [id number] Mar, Chronic atrial fibrillation I48.2 [facility] [address] [id number] [address] [place] [id number] Mar, [facility] [address] [id number] [address] [place] [address] Mar, Osteoarthritis M19.90 [facility] [address] [id number] [address] [place] [id number] Mar, 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 and Chronic atrial fibrillation I48.2 [facility] [address] [id number] [address] [place] [id number] Mar, Chronic atrial fibrillation I48.2 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 [facility] [address] [id number] [address] [place] [id number] Mar, 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 [facility] [address] [id number] [address] [place] [phone] Mar, 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 [facility] [address] [id number] [address] [place] [address] Mar, Osteoarthritis M19.90 [facility] [address] [id number] [address] [place] [phone] Feb, Encounter for screening mamm ogram for malignant neoplasm of breast Z12.31 [facility] [address] [id number] [address] [place] [id number] Feb, Osteoarthritis M19.90 [facility] [address] [id number] [address] [place] [phone] Jan, [facility] [address] [id number] [address] [place] [phone] Jan, 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 ; Diabetes E11.9 ; Osteoarthritis M19.90 and Breast cancer screening Z12.39 [facility] [address] [id number] [address] [place] [phone] Jan, Osteoarthritis M19.90 [facility] [address] [id number] [address] [place] [phone] Jan, Osteoarthritis M19.90 [facility] [address] [id number] [address] [place] [phone] Jan, [facility] [address] [id number] [address] [place] [address] December, Osteoarthritis M19.90 [facility] [address] [id number] [address] [place] [phone] December, Osteoarthritis M19.90 [facility] [id number] [place] [id number] Nov, [facility] [address] [id number] [address] [place] [phone] Nov, [facility] [address] [id number] [address] [place] [phone] Nov, [facility] [address] [id number] [address] [place] [phone] Nov, Diabetes E11.9 [facility] [address] [id number] [address] [place] [phone] Nov, [facility] [address] [id number] [address] [place] [phone] Oct, Osteoarthritis M19.90 [facility] [address] [id number] [address] [place] [address] Oct, Osteoarthritis M19.90 ; 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 ; Diabetes E11.9 ; Cigarette nicotine dependence without complication F17.210 and Chronic atrial fibrillation I48.2 [place] [address] [address] Aug, [facility] [address] [place] [id number] [address] [place] [phone] Aug, 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 (current) use of a nticoagulants Z79.01 [facility] [address] [place] [id number] [address] [place] [phone] Aug, [facility] [address] [place] [id number] [place] [id number] Aug, [place] [address] [id number] Aug, [place] [address] [address] Aug, [facility] [address] [place] [id number] [place] [id number] Aug, [employer] [facility] [address] [place] [id number] Aug Osteoarthritis M19.90 and Essential hypertension I10 [place] [address] [place] [id number] [address] [place] [address] Aug, Other urinary incontinence N 39.498 [place] [address] [place] [id number] [address] [place] [phone] Jul, Osteoarthritis M19.90 [place] [address] [place] [id number] [address] [place] [address] Jun, 2016 Diabetes E11.9 ; Encounter f or immunization Z23 ; Osteoarthritis M19.90 ; 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 ; Cigarette nicotine dependence without complication F17.210 ; Acquired hypothyroidism E03.9 ; Morbid obesity, unspecified obesity type E66.01 and Irregular heart beats I49.9 [place] [address] [address] Jun, Osteoarthritis M19.90 [facility] [address] [id number] [address] [place] [id number] May, Osteoarthritis M19.90 [facility] [address] [id number] [address] [place] [id number] May, Urinary incontinence, unspec ified type R32 [facility] [address] [place] [id number] [address] [place] [id number] May, [facility] [address] [place] [id number] [address] [place] [phone] Apr, Osteoarthritis M19.90 [place] [address] [place] [id number] [place] [address] Apr, 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 (current) use of a nticoagulants Z79.01 [place] [address] [place] [phone] Apr, [facility] [address] [place] [id number] [address] [place] [phone] Apr, Osteoarthritis M19.90 [place] [address] [address] Mar, Diabetes E11.9 ; Hypothyroid ism, unspecified type E03.9 ; Osteoarthritis M19.90 ; High risk medication use Z79.899 ; Cigarette nicotine dependence without complication F17.210 and Morbid obesity, unspecified obesity type E66.01 [facility] [address] [id number] [address] [place] [phone] Mar, Osteoarthritis M19.90 [facility] [address] [place] [id number] [address] [place] [phone] December, Osteoarthritis M19.90 [place] [address] [place] [id number] [address] [place] [phone] December, [place] [address] [place] [id number] [address] [place] [phone] Oct, [facility] [address] [id number] [address] [place] [phone] Oct, [facility] [address] [id number] [address] [place] [phone] Aug, [facility] [address] [id number] [address] [place] [phone] Jul, [facility] [address] [id number] [address] [place] [phone] Jul, [facility] [address] [id number] [address] [place] [phone] Jul, Diabetes E11.9 ; Encounter f or immunization Z23 ; Abnormal mammogram R92.8 ; Acquired hypothyroidism E03.9 ; High risk medication use Z79.899 ; Osteoarthritis M19.90 and Cigarette nicotine dependence without complication F17.210 [facility] [address] [id number] [address] [place] [phone] Jul, [facility] [address] [id number] [address] [place] [phone] Jun, Abnormal mammogram R92.8 [facility] [address] [id number] [address] [place] [phone] Apr, [facility] [address] [id number] [address] [place] [id number] Apr, [facility] [address] [id number] [address] [place] [phone] Mar, [facility] [address] [id number] [address] [place] [id number] Mar, Current use of 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 frame tender ant 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 V58.61 [facility] [address] [id number] [address] [place] [phone] Feb, [facility] [address] [id number] [address] [place] [phone] Jan, [facility] [address] [id number] [address] [place] [address], [place] [address] December, [facility] [address] [id number] [address] [place] [address], [place] [address] Nov, [facility] [address] [id number] [address] [place] [address], [place] [address] Nov, [facility] [address] [id number] [address] [place] [address], [place] [address] Oct, [facility] [address] [id number] [address] [place] [address], [place] [address] Oct, [facility] [address] [id number] [address] [place] [address], [place] [address] Oct, [facility] [address] [id number] [address] [place] [address], [place] [address] Oct, [facility] [address] [id number] [address] [place] [address], [place] [address] Oct, [facility] [address] [id number] [address] [place] [address], [place] [address] Oct, [facility] [address] [id number] [address] [place] [address], [place] [address] Sep, [facility] [address] [id number] [address] [place] [address], [place] [address] Sep, [facility] [address] [id number] [address] [place] [address], [place] [address] Sep, [facility] [address] [id number] [address] [place] [address], [place] [address] Sep, [facility] [address] [id number] [address] [place] [address], [place] [address] Aug, [facility] [address] [id number] [address] [place] [address], [place] [address] Aug, [facility] [address] [id number] [address] [place] [address], [place] [address] Aug, [facility] [address] [id number] [address] [place] [address], [place] [address] 16 Aug, 2014 [facility] [address] [id number] [address] [place] [address], [place] [address] Aug, [facility] [address] [id number] [address] [place] [address], [place] [address] Aug, [facility] [address] [id number] [address] [place] [address], [place] [address] Jul, [facility] [address] [id number] [address] [place] [address], [place] [address] Jul, [facility] [address] [id number] [address] [place] [address], [place] [address] Jul, [facility] [address] [id number] [address] [place] [address], [place] [address] Jul, [facility] [address] [id number] [address] [place] [address], [place] [address] Jul, [facility] [address] [id number] [address] [place] [address], [place] [address] Jul, [facility] [address] [id number] [address] [place] [address], [place] [address] Jun, [facility] [address] [id number] [address] [place] [address], [place] [address] Jun, [facility] [address] [id number] [address] [place] [address], [place] [address] Jun, [facility] [address] [id number] [address] [place] [address], [place] [address] Jun, [facility] [address] [id number] [address] [place] [address], [place] [address] Jun, [facility] [address] [id number] [address] [place] [address], [place] [address] Jun, [facility] [address] [id number] [address] [place] [address], [place] [address] Jun, [facility] [address] [id number] [address] [place] [address], [place] [address] Jun, [facility] [address] [id number] [address] [place] [address], [place] [address] Jun, [facility] [address] [id number] [address] [place] [address], [place] [address] May, [facility] [address] [id number] [address] [place] [address], [place] [address] May, [facility] [address] [id number] [address] [place] [address], [place] [address] Apr, [facility] [address] [id number] [address] [place] [address], [place] [address] Apr, [facility] [address] [id number] [address] [place] [address], [place] [address] Apr, [facility] [address] [id number] [address] [place] [address], [place] [address] Apr, [facility] [address] [id number] [address] [place] [address], [place] [address] Apr, [facility] [address] [id number] [address] [place] [address], [place] [address] Apr, [facility] [address] [id number] [address] [place] [address], [place] [address] Apr, [facility] [address] [id number] [address] [place] [address], [place] [address] Apr, [facility] [address] [id number] [address] [place] [address], [place] [address] Apr, [facility] [address] [id number] [address] [place] [address], [place] [address] Apr, [facility] [address] [id number] [address] [place] [address], [place] [address] Mar, [facility] [address] [id number] [address] [place] [address], [place] [address] Mar, [facility] [address] [id number] [address] [place] [address], [place] [address] Mar, [facility] [address] [id number] [address] [place] [address], [place] [address] Mar, [facility] [address] [id number] [address] [place] [address], [place] [address] Mar, [facility] [address] [id number] [address] [place] [address], [place] [address] Mar, [facility] [address] [id number] [address] [place] [address], [place] [address] Feb, [facility] [address] [id number] [address] [place] [address], [place] [address] Feb, [facility] [address] [id number] [address] [place] [address], [place] [address] Feb, [facility] [address] [id number] [address] [place] [address], [place] [address] Feb, [facility] [address] [id number] [address] [place] [address], [place] [address] Jan, [facility] [address] [id number] [address] [place] [address], [place] [address] Jan, [facility] [address] [id number] [address] [place] [address], [place] [address] Jan, [facility] [address] [id number] [address] [place] [address], [place] [address] Jan, [facility] [address] [id number] [address] [place] [address], [place] [address] Oct, [facility] [address] [id number] [address] [place] [address], [place] [address] Oct, [facility] [address] [id number] [address] [place] [address], [place] [address] Sep, [facility] [address] [id number] [address] [place] [address], [place] [address] Sep, [facility] [address] [id number] [address] [place] [address], [place] [address] Sep, [facility] [address] [id number] [address] [place] [address], [place] [address] Sep, [facility] [address] [id number] [address] [place] [address], [place] [address] Aug, [facility] [address] [id number] [address] [place] [address], [place] [address] Aug, [facility] [address] [id number] [address] [place] [address], [place] [address] Aug, [facility] [address] [id number] [address] [place] [address], [place] [address] Aug, [facility] [address] [id number] [address] [place] [address], [place] [address] Jul, [facility] [address] [id number] [address] [place] [address], [place] [address] Jul, [facility] [address] [id number] [address] [place] [address], [place] [address] Jul, [facility] [address] [id number] [address] [place] [address], [place] [address] Jul, [facility] [address] [id number] [address] [place] [address], [place] [address] Jul, [facility] [address] [id number] [address] [place] [address], [place] [address] Jul, [facility] [address] [id number] [address] [place] [address], [place] [address] Jun, [facility] [address] [id number] [address] [place] [address], [place] [id number] Jun, [facility] [address] [id number] [address] [place] [address], [place] [address] Jun, [facility] [address] [id number] [address] [place] [address], [place] [address] Jun, [facility] [address] [id number] [address] [place] [address], [place] [address] Jun, [facility] [address] [id number] [address] [place] [address], [place] [address] Jun, [facility] [address] [id number] [address] [place] [address], [place] [address] May, [facility] [address] [id number] [address] [place] [address], [place] [address] May, [facility] [address] [id number] [address] [place] [address], [place] [address] May, [facility] [address] [id number] [address] [place] [address], [place] [address] May, [facility] [address] [id number] [address] [place] [address], [place] [address] May, [facility] [address] [id number] [address] [place] [address], [place] [address] May, [facility] [address] [id number] [address] [place] [address], [place] [address] May, [facility] [address] [id number] [address] [place] [address], [place] [address] May, [facility] [address] [id number] [address] [place] [address], [place] [address] Apr, [facility] [address] [id number] [address] [place] [address], [place] [address] Apr, [facility] [address] [id number] [address] [place] [address], [place] [address] Mar, [facility] [address] [id number] [address] [place] [address], [place] [address] Mar, [facility] [address] [id number] [address] [place] [address], [place] [address] Mar, [facility] [address] [id number] [address] [place] [address], [place] [address] Mar, [facility] [address] [id number] [address] [place] [address], [place] [address] Feb, [facility] [address] [id number] [address] [place] [address], [place] [address] Jan, [facility] [address] [id number] [address] [place] [address], [place] [address] December, [facility] [address] [id number] [address] [place] [address], [place] [address] December, [facility] [address] [id number] [address] [place] [address], [place] [address] December, [facility] [address] [id number] [address] [place] [address], [place] [address] Nov, [facility] [address] [id number] [address] [place] [address], [place] [address] Nov, [facility] [address] [id number] [address] [place] [address], [place] [address] Sep, [facility] [address] [id number] [address] [place] [address], [place] [address] Sep, [facility] [address] [id number] [address] [place] [address], [place] [id number] 14 Sep, 2012 [facility] [address] [id number] [address] [place] [address], [place] [address] Sep, [facility] [address] [id number] [address] [place] [address], [place] [address] Aug, [facility] [address] [id number] [address] [place] [address], [place] [address] Aug, [facility] [address] [id number] [address] [place] [address], [place] [id number] 08 Aug, 2012 [facility] [address] [id number] [address] [place] [address], [place] [address] Aug, [facility] [address] [id number] [address] [place] [address], [place] [address] Jul, [facility] [address] [id number] [address] [place] [address], [place] [address] Jul, [facility] [address] [id number] [address] [place] [address], [place] [address] Jul, [facility] [address] [id number] [address] [place] [address], [place] [address] Jul, [facility] [address] [id number] [address] [place] [address], [place] [address] Jun, [facility] [address] [id number] [address] [place] [address], [place] [address] Jun, [facility] [address] [id number] [address] [place] [address], [place] [address] Jun, [facility] [address] [id number] [address] [place] [address], [place] [address] Jun, [facility] [address] [id number] [address] [place] [address], [place] [address] May, [facility] [address] [id number] [address] [place] [address], [place] [address] May, [facility] [address] [id number] [address] [place] [address], [place] [address] May, [facility] [address] [id number] [address] [place] [address], [place] [address] May, [facility] [address] [id number] [address] [place] [address], [place] [address] May, [facility] [address] [id number] [address] [place] [address], [place] [address] Apr, [facility] [address] [id number] [address] [place] [address], [place] [address] 08 Apr, 2012 [facility] [address] [id number] [address] [place] [address], [place] [address] 07 Apr, 2012 [facility] [address] [id number] [address] [place] [address], [place] [address] 06 Apr, 2012 [facility] [address] [id number] [address] [place] [address], [place] [address] Mar, [facility] [address] [id number] [address] [place] [address], [place] [address] Mar, [facility] [address] [id number] [address] [place] [address], [place] [address] Feb, [facility] [address] [id number] [address] [place] [address], [place] [address] Feb, [facility] [address] [id number] [address] [place] [address], [place] [address] Feb, [facility] [address] [id number] [address] [place] [address], [place] [address] Jan, [facility] [address] [id number] [address] [place] [address], [place] [address] Jan, [facility] [address] [id number] [address] [place] [address], [place] [address] December, [facility] [address] [id number] [address] [place] [address], [place] [address] December, [facility] [address] [id number] [address] [place] [address], [place] [address] Nov, [facility] [address] [id number] [address] [place] [address], [place] [address] Oct, [facility] [address] [id number] [address] [place] [address], [place] [address] Oct, [facility] [address] [id number] [address] [place] [address], [place] [address] Sep, [facility] [address] [id number] [address] [place] [address], [place] [id number] Sep, [facility] [address] [id number] [address] [place] [address], [place] [address] Aug, [facility] [address] [id number] [address] [place] [address], [place] [address] Aug, [facility] [address] [id number] [address] [place] [address], [place] [address] Jul, [facility] [address] [id number] [address] [place] [address], [place] [address] Jul, [facility] [address] [id number] [address] [place] [address], [place] [address] Jul, [facility] [address] [id number] [address] [place] [address], [place] [address] Jun, [facility] [address] [id number] [address] [place] [address], [place] [address] Jun, [facility] [address] [id number] [address] [place] [address], [place] [address] May, [facility] [address] [id number] [address] [place] [address], [place] [address] May, [facility] [address] [id number] [address] [place] [address], [place] [address] May, [facility] [address] [id number] [address] [place] [address], [place] [address] Jul, [facility] [address] [id number] [address] [place] [address], [place] [address] Jul, [facility] [address] [id number] [address] [place] [address], [place] [address] 15 Jun, 2010 [facility] [address] [id number] [address] [place] [address], [place] [address] May, [facility] [address] [id number] [address] [place] [id number] May, [facility] [address] [id number] [address] [place] [id number] Aug, [facility] [address] [id number] [address] [place] [id number] Jul, [facility] [address] [id number] [address] [place] [id number] Jun, [facility] [address] [id number] [address] [place] [id number] Jun, [facility] [address] [id number] [address] [place] [id number] Jun, [facility] [address] [id number] [address] [place] [id number] Jun, [facility] [address] [id number] [address] [place] [id number] Jun, [facility] [address] [id number] [address] [place] [id number] May, [facility] [address] [id number] [address] [place] [id number] Sep, IMMUNIZATIONS No Known Immunizations SOCIAL HISTORY Never Assessed REASON FOR VISIT Controlled Med Refill 10/06/17 PLAN OF CARE VITAL SIGNS MEDICATIONS Medication [...]
--- OUTSIDE RECORDS SUMMARY | 2020-01-28 14:42 | XMS REPORT ---
Author Author Katarina RODRIGUEZ Organization [facility] Address [address] [place] [address] Care Team Providers Care Instructor Product Inspection Name Role Phone GEORGINA RODRIGUEZ Unavailable PROBLEMS Type Condition ICD9-CM Code SUM75-QN Code Onset Dates Condition S tatus SNOMED Code Problem Encounter for immunization Z23 Act essie [id number] Problem Urinary incontinence, unspecified type R32 Active 569334379 Problem History of cataract surgery Z98.49 Ac tive 745728961 Problem Chronic atrial fibrillation I48.2 Ac tive 074512705 Problem Essential hypertension I10 Active 99426207 Problem Morbid obesity, unspecified obesity type E66.01 Active 467355933 Problem 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.01 Active 396283592 Problem Other urinary incontinence N39.498 Act essie 785358945 Problem Irregular heart beats I49.9 Active 738761593 Problem Eye exam normal Z01.00 Active 2438 61781 Problem Cigarette nicotine dependence without complication F17.210 Active 72025257 Problem Acquired hypothyroidism E03.9 Active 509912251 Problem Abnormal mammogram R92.8 Active 1 71244053 Problem High risk medication use Z79.899 Activ e 152084800 Problem Osteoarthritis M19.90 Active 96552 5006 Problem Diabetes E11.9 Active 725395658 ALLERGIES No Information ENCOUNTERS Encounter Location Date Diagnosis [facility] [address] [facility] [id number] [address] [place] [address] Apr, [facility] [address] [facility] [id number] [address] [place] [address] Feb, Osteoarthritis M19.90 [facility] [address] [facility] [id number] [address] [place] [address] 14 Jan, 2018 Osteoarthritis M19.90 [facility] [address] [facility] [id number] [address] [place] [address] December, [facility] [address] [facility] [id number] [address] [place] [address] December, Osteoarthritis M19.90 [facility] [address] [place] [id number] [address] [place] [address] Nov, Diabetes E11.9 ; 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 Z79.01 ; Acquired hypothyroidism E03.9 ; Cigarette nicotine dependence without complication F17.210 ; Osteoarthritis M19.90 ; BMI 45.0-49.9, adult Z68.42 and Chronic atrial fibrillation I48.2 [place] [address] [facility] [id number] [address] [place] [address] Nov, Osteoarthritis M19.90 [facility] [address] [place] [id number] [address] [place] [address] Oct, Osteoarthritis M19.90 [facility] [address] [address] Oct, 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) use of a nticoagulants Z79.01 [facility] [address] [facility] [id number] [address] [place] [address] Sep, Osteoarthritis M19.90 [facility] [address] [facility] [id number] [address] [place] [address] Sep, [facility] [address] [place] [id number] [address] [place] [address] Aug, Osteoarthritis M19.90 [facility] [address] [facility] [id number] [address] [place] [address] Jul, Osteoarthritis M19.90 [facility] [address] [place] [id number] [address] [place] [address] Jul, Osteoarthritis M19.90 [facility] [address] [place] [id number] [address] [place] [address] Jun, Diabetes E11.9 ; Encounter f or immunization Z23 ; [facility] (current) use of anticoagulants Z79.01 ; Chronic atrial fibrillation I48.2 ; Osteoarthritis M19.90 ; Tobacco abuse Z72.0 and Bug bite, initial encounter W57.XXXA [facility] [address] [id number] [address] [place] [address] May, Osteoarthritis M19.90 [facility] [address] [id number] [address] [place] [address] Apr, Osteoarthritis M19.90 [facility] [address] [id number] [address] [place] [address] Mar, Chronic atrial fibrillation I48.2 [place] [address] [id number] [address] [place] [address] Mar, [facility] [address] [id number] [address] [place] [address] Mar, Osteoarthritis M19.90 [place] [address] [id number] [address] [place] [address] Mar, [facility] (current) use of a nticoagulants Z79.01 and Chronic atrial fibrillation I48.2 [place] [address] [id number] [address] [place] [address] Mar, Chronic atrial fibrillation I48.2 and [facility]FP (current) use of anticoagulants Z79.01 [place] [address] [id number] [address] [place] [address] Mar, 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) use of a nticoagulants Z79.01 [place] [address] [id number] [address] [place] [address] Mar, [facility] (current) use of a nticoagulants Z79.01 [place] [address] [id number] [address] [place] [address] Mar, Osteoarthritis M19.90 [facility] [address] [id number] [address] [place] [address] Feb, Encounter for screening mamm ogram for malignant neoplasm of breast Z12.31 [facility] [address] [id number] [address] [place] [address] Feb, Osteoarthritis M19.90 [facility] [address] [id number] [address] [place] [address] Jan, [facility] [address] [id number] [address] [place] [address] Jan, 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) use of a nticoagulants Z79.01 ; Diabetes E11.9 ; Osteoarthritis M19.90 and Breast cancer screening Z12.39 [facility] [address] [id number] [address] [place] [address] Jan, Osteoarthritis M19.90 [facility] [address] [id number] [address] [place] [address] Jan, Osteoarthritis M19.90 [facility] [address] [id number] [address] [place] [address] Jan, [facility] [address] [id number] [address] [place] [address] December, Osteoarthritis M19.90 [facility] [address] [id number] [address] [place] [address] December, Osteoarthritis M19.90 [facility] [id number] [place] [id number] Nov, [facility] [address] [id number] [address] [place] [address] Nov, [facility] [address] [id number] [address] [place] [address] Nov, [facility] [address] [id number] [address] [place] [address] Nov, Diabetes E11.9 [facility] [address] [id number] [address] [place] [address] Nov, [facility] [address] [id number] [address] [place] [address] Oct, Osteoarthritis M19.90 [facility] [address] 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 [id number] [address] [place] [address] Aug, [facility] [address] [facility] [id number] [address] [place] [address] Aug, 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) use of a nticoagulants Z79.01 [facility] [address] [facility] [id number] [address] [place] [address] Aug, [facility] [address] [place] [id number] [place] [address] [id number] Aug, [facility] [address] [facility] [id number] [address] [place] [address] Aug, [facility] [address] [place] [id number] [address] [place] [address] Aug, [facility] [address] [place] [id number] [place] [id number] Aug, [employer] [address] [place], [place] [id number] Aug Osteoarthritis M19.90 and Essential hypertension I10 [facility] [address] 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 [id number] [address] [place] [address] Jun, Osteoarthritis M19.90 [place] [address] [facility] [id number] [address] [place] [address] May, Osteoarthritis M19.90 [place] [address] [place] [id number] [address] [place] [phone] May, Urinary incontinence, unspec ified type R32 [place] [address] [facility] [id number] [address] [place] [address] May, [place] [address] [place] [id number] [address] [place] [address] Apr, Osteoarthritis M19.90 [place] [address] [place] [id number] [address] [place] [address] Apr, 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) use of a nticoagulants Z79.01 [place] [address] [place] [id number] [address] [place] [address] Apr, [place] [address] [place] [id number] [address] [place] [address] Apr, Osteoarthritis M19.90 [place] [address] [place] [id number] [address] [place] [address] Mar, Diabetes E11.9 ; Hypothyroid ism, unspecified type E03.9 ; Osteoarthritis M19.90 ; High risk medication use Z79.899 ; Cigarette nicotine dependence without complication F17.210 and Morbid obesity, unspecified obesity type E66.01 [place] [address] [facility] [id number] [address] [place] [address] Mar, Osteoarthritis M19.90 [place] [address] [place] [id number] [address] [place] [address] December, Osteoarthritis M19.90 [facility] [address] [facility] [id number] [address] [place] [address] December, [facility] [address] [facility] [id number] [address] [place] [phone] Oct, [facility] [address] [facility] [id number] [address] [place] [address] Oct, [facility] [address] [facility] [id number] [address] [place] [phone] Aug, [facility] [address] [facility] [id number] [address] [place] [phone] Jul, [facility] [address] [facility] [id number] [address] [place] [phone] Jul, [facility] [address] [facility] [id number] [address] [place] [address] Jul, Diabetes E11.9 ; Encounter f or immunization Z23 ; Abnormal mammogram R92.8 ; Acquired hypothyroidism E03.9 ; High risk medication use Z79.899 ; Osteoarthritis M19.90 and Cigarette nicotine dependence without complication F17.210 [facility] [address] [facility] [id number] [address] [place] [address] Jul, [facility] [address] [facility] [id number] [address] [place] [phone] Jun, Abnormal mammogram R92.8 [facility] [address] [facility] [id number] [address] [place] [address] Apr, [facility] [address] [facility] [id number] [address] [place] [phone] Apr, [facility] [address] [facility] [id number] [address] [place] [phone] Mar, [facility] [address] [facility] [id number] [address] [place] [address] Mar, Current use of lobsterman ant 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 V58.61 [facility] [address] [id number] [address] [place] [address], [place] [address] Feb, [facility] [address] [id number] [address] [place] [address], [place] [address] Jan, [facility] [address] [id number] [address] [place] [address], [place] [address] December, [facility] [address] [id number] [address] [place] [address], [place] [address] Nov, [facility] [address] [id number] [address] [place] [address], [place] [address] Nov, [facility] [address] [id number] [address] [place] [address], [place] [address] Oct, [facility] [address] [id number] [address] [place] [address], [place] [address] Oct, [facility] [address] [id number] [address] [place] [address], [place] [address] Oct, [facility] [address] [id number] [address] [place] [address], [place] [address] Oct, [facility] [address] [id number] [address] [place] [address], [place] [address] Oct, [facility] [address] [id number] [address] [place] [address] Oct, [facility] [address] [id number] [address] [place] [phone] Sep, [facility] [address] [id number] [address] [place] [address], [place] [address] Sep, [facility] [address] [id number] [address] [place] [address], [place] [address] Sep, [facility] [address] [id number] [address] [place] [address] Sep, [facility] [address] [id number] [address] [place] [address] Aug, [facility] [address] [id number] [address] [place] [address], [place] [address] Aug, [facility] [address] [id number] [address] [place] [address], [place] [address] Aug, [facility] [address] [id number] [address] [place] [address], [place] [address] Aug, [facility] [address] [id number] [address] [place] [address], [place] [address] Aug, [facility] [address] [id number] [address] [place] [address], [place] [address] Aug, [facility] [address] [id number] [address] [place] [address], [place] [address] Jul, [facility] [address] [id number] [address] [place] [address], [place] [address] Jul, [facility] [address] [id number] [address] [place] [address], [place] [address] Jul, [facility] [address] [id number] [address] [place] [address], [place] [address] Jul, [facility] [address] [id number] [address] [place] [address], [place] [address] Jul, [facility] [address] [id number] [address] [place] [address], [place] [address] Jul, [facility] [address] [id number] [address] [place] [address], [place] [address] Jun, [facility] [address] [id number] [address] [place] [address], [place] [address] Jun, [facility] [address] [id number] [address] [place] [address], [place] [address] Jun, [facility] [address] [id number] [address] [place] [address], [place] [address] Jun, [facility] [address] [id number] [address] [place] [address], [place] [address] Jun, [facility] [address] [id number] [address] [place] [address], [place] [address] Jun, [facility] [address] [id number] [address] [place] [address], [place] [address] Jun, [facility] [address] [id number] [address] [place] [address], [place] [address] Jun, [facility] [address] [id number] [address] [place] [address], [place] [address] Jun, [facility] [address] [id number] [address] [place] [address], [place] [address] May, [facility] [address] [id number] [address] [place] [address], [place] [address] May, [facility] [address] [id number] [address] [place] [address], [place] [address] Apr, [facility] [address] [id number] [address] [place] [address], [place] [address] Apr, [facility] [address] [id number] [address] [place] [address], [place] [address] 23 Apr, 2013 [facility] [address] [id number] [address] [place] [address], [place] [address] 23 Apr, 2013 [facility] [address] [id number] [address] [place] [address], [place] [address] 11 Apr, 2013 [facility] [address] [id number] [address] [place] [address], [place] [address] 11 Apr, 2013 [facility] [address] [id number] [address] [place] [address], [place] [address] Apr, 2013 [facility] [address] [id number] [address] [place] [address], [place] [address] 11 Apr, 2013 [facility] [address] [id number] [address] [place] [address], [place] [address] Apr, [facility] [address] [id number] [facility] [place] [address] Apr, [facility] [address] [id number] [address] [place] [address], [place] [address] Mar, [facility] [address] [id number] [address] [place] [address], [place] [address] Mar, [facility] [address] [id number] [address] [place] [address], [place] [address] Mar, [facility] [address] [id number] [address] [place] [address], [place] [address] Mar, [facility] [address] [id number] [address] [place] [address], [place] [address] Mar, [facility] [address] [id number] [address] [place] [address], [place] [address] Mar, [facility] [address] [id number] [address] [place] [address], [place] [address] Feb, [facility] [address] [id number] [address] [place] [address], [place] [address] Feb, [facility] [address] [id number] [address] [place] [address], [place] [address] Feb, [facility] [address] [id number] [address] [place] [address], [place] [address] Feb, [facility] [address] [id number] [address] [place] [address], [place] [address] Jan, [facility] [address] [id number] [address] [place] [address], [place] [address] Jan, [facility] [address] [id number] [address] [place] [address], [place] [address] Jan, [facility] [address] [id number] [address] [place] [address], [place] [address] Jan, [facility] [address] [id number] [address] [place] [address], [place] [address] 14 Oct, 2013 [facility] [address] [id number] [address] [place] [address], [place] [address] 14 Oct, 2013 [facility] [address] [id number] [address] [place] [address], [place] [address] Sep, [facility] [address] [id number] [address] [place] [address], [place] [address] Sep, [facility] [address] [id number] [address] [place] [address], [place] [address] Sep, [facility] [address] [id number] [address] [place] [address], [place] [address] Sep, [facility] [address] [id number] [address] [place] [address], [place] [address] Aug, [facility] [address] [id number] [address] [place] [address], [place] [address] Aug, [facility] [address] [id number] [address] [place] [address], [place] [address] Aug, [facility] [address] [id number] [address] [place] [address], [place] [address] Aug, [facility] [address] [id number] [address] [place] [address], [place] [address] Jul, [facility] [address] [id number] [address] [place] [address], [place] [address] 30 Jul, 2013 [facility] [address] [id number] [address] [place] [address], [place] [address] 14 Jul, 2013 [facility] [address] [id number] [address] [place] [address], [place] [address] 14 Jul, 2013 [facility] [address] [id number] [address] [place] [address], [place] [address] 10 Jul, 2013 [facility] [facility] [address] [id number] [address] [place] [address], [place] [address] Jul, [facility] [address] [id number] [address] [place] [address], [place] [address] Jun, [facility] [address] [id number] [address] [place] [address], [place] [address] Jun, [facility] [address] [id number] [address] [place] [address], [place] [address] Jun, [facility] [address] [id number] [address] [place] [address], [place] [address] Jun, [facility] [address] [id number] [address] [place] [address], [place] [address] Jun, [facility] [address] [id number] [address] [place] [address], [place] [address] Jun, [facility] [address] [id number] [address] [place] [address], [place] [address] May, [facility] [address] [id number] [address] [place] [address] May, [facility] [address] [id number] [address] [place] [address], [place] [address] May, [facility] [address] [id number] [address] [place] [address] May, [facility] [address] [id number] [address] [place] [address] May, [facility] [address] [id number] [address] [place] [address] May, [facility] [address] [id number] [address] [place] [address], [place] [address] May, [facility] [address] [id number] [address] [place] [address] May, [facility] [address] [id number] [address] [place] [address] 30 Apr, 2013 [facility] [address] [id number] [address] [place] [address] Apr, [facility] [address] [id number] [address] [place] [address], [place] [address] Mar, [facility] [address] [id number] [address] [place] [address], [place] [address] Mar, [facility] [address] [id number] [address] [place] [address], [place] [address] Mar, [facility] [address] [id number] [address] [place] [address], [place] [address] Mar, [facility] [address] [id number] [address] [place] [address], [place] [address] Feb, [facility] [address] [id number] [address] [place] [address], [place] [address] Jan, [facility] [address] [id number] [address] [place] [address], [place] [address] December, [facility] [address] [id number] [address] [place] [address], [place] [address] December, [facility] [address] [id number] [address] [place] [address], [place] [address] December, [facility] [address] [id number] [address] [place] [address], [place] [address] Nov, [facility] [address] [id number] [address] [place] [address], [place] [address] Nov, [facility] [address] [id number] [address] [place] [address], [place] [address] Sep, [facility] [address] [id number] [address] [place] [address], [place] [address] Sep, [facility] [address] [id number] [address] [place] [address], [place] [address] Sep, [facility] [address] [id number] [address] [place] [address], [place] [address] Sep, [facility] [address] [id number] [address] [place] [address], [place] [address] Aug, [facility] [address] [id number] [address] [place] [address], [place] [address] Aug, [facility] [address] [id number] [address] [place] [address], [place] [address] Aug, [facility] [address] [id number] [address] [place] [address], [place] [address] Aug, [facility] [address] [id number] [address] [place] [address], [place] [address] Jul, [facility] [address] [id number] [address] [place] [address], [place] [address] Jul, [facility] [address] [id number] [address] [place] [address], [place] [address] Jul, [facility] [address] [id number] [address] [place] [address], [place] [address] Jul, [facility] [address] [id number] [address] [place] [address], [place] [address] Jun, [facility] [address] [id number] [address] [place] [address], [place] [address] Jun, [facility] [address] [id number] [address] [place] [address], [place] [address] Jun, [facility] [address] [id number] [address] [place] [address], [place] [address] Jun, [facility] [address] [id number] [address] [place] [address], [place] [address] May, [facility] [address] [id number] [address] [place] [address], [place] [address] May, [facility] [address] [id number] [address] [place] [address], [place] [address] May, [facility] [address] [id number] [address] [place] [address], [place] [address] May, [facility] [address] [id number] [address] [place] [address], [place] [address] 08 May, 2012 [facility] [address] [id number] [address] [place] [address], [place] [address] 10 Apr, 2012 [facility] [address] [id number] [address] [place] [address], [place] [address] 08 Apr, 2012 [facility] [address] [id number] [address] [place] [address], [place] [address] 07 Apr, 2012 [facility] [address] [id number] [address] [place] [address], [place] [address] 06 Apr, 2012 [facility] [address] [id number] [address] [place] [address], [place] [address] Mar, [facility] [address] [id number] [address] [place] [address], [place] [address] Mar, [facility] [address] [id number] [address] [place] [address], [place] [address] Feb, [facility] [address] [id number] [address] [place] [address], [place] [address] Feb, [facility] [address] [id number] [address] [place] [address], [place] [address] Feb, [facility] [address] [id number] [address] [place] [address], [place] [address] Jan, [facility] [address] [id number] [address] [place] [address], [place] [address] Jan, [facility] [address] [id number] [address] [place] [address], [place] [address] December, [facility] [address] [id number] [address] [place] [address], [place] [address] December, [facility] [address] [id number] [address] [place] [address], [place] [address] Nov, [facility] [address] [id number] [address] [place] [address], [place] [address] Oct, [facility] [address] [id number] [address] [place] [address], [place] [address] Oct, [facility] [address] [id number] [address] [place] [address], [place] [address] Sep, [facility] [address] [id number] [address] [place] [address], [place] [address] Sep, [facility] [address] [id number] [address] [place] [address], [place] [address] Aug, [facility] [address] [id number] [address] [place] [address], [place] [address] Aug, [facility] [address] [id number] [address] [place] [address], [place] [address] Jul, [facility] [address] [id number] [address] [place] [address], [place] [address] Jul, [facility] [address] [id number] [address] [place] [address], [place] [address] Jul, [facility] [address] [id number] [address] [place] [address], [place] [address] Jun, [facility] [address] [id number] [address] [place] [address], [place] [address] Jun, [facility] [address] [id number] [address] [place] [address], [place] [address] May, [facility] [address] [id number] [address] [place] [address], [place] [address] May, [facility] [address] [id number] [address] [place] [address], [place] [address] May, [facility] [address] [id number] [address] [place] [address], [place] [address] 09 Jul, 2010 [facility] [address] [id number] [address] [place] [address], [place] [address] Jul, [facility] [address] [id number] [address] [place] [address] 15 Jun, 2010 [facility] [address] [id number] [address] [place] [address] May, [facility] [address] [id number] [address] [place] [address] May, [facility] [address] [id number] [address] [place] [address] Aug, [facility] [address] [id number] [address] [place] [address] Jul, [facility] [address] [id number] [address] [place] [address] Jun, [facility] [address] [id number] [address] [place] [address] Jun, [facility] [address] [id number] [address] [place] [address] Jun, [facility] [address] [id number] [address] [place] [address] Jun, [facility] [address] [id number] [address] [place] [address] Jun, [facility] [address] [id number] [address] [place] [address] May, [facility] [address] [id number] [address] [place] [address] Sep, IMMUNIZATIONS No Known Immunizations SOCIAL HISTORY Never Assessed REASON FOR VISIT Controlled Med Refill 12/01/17 PLAN OF CARE VITAL SIGNS MEDICATIONS Medication [...]
--- OUTSIDE RECORDS SUMMARY | 2020-01-28 14:43 | XMS REPORT ---
Author Author Katarina RODRIGUEZ Organization [facility] Address [address] [place] [address] Care Team Providers Care Ribbing Machine Operator Name Role Phone GEORGINA RODRIGUEZ Unavailable PROBLEMS Type Condition ICD9-CM Code [id number] Code Onset Dates Condition S tatus SNOMED Code Problem Encounter for immunization Z23 Act essie 342311555 Problem Urinary incontinence, unspecified type R32 Active 807341261 Problem History of cataract surgery Z98.49 Ac tive 537591609 Problem Chronic atrial fibrillation I48.2 Ac tive 202653297 Problem Essential hypertension I10 Active 64282212 Problem Morbid obesity, unspecified obesity type E66.01 Active 655107303 Problem 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 Z79.01 Active 642852221 Problem Other urinary incontinence N39.498 Act essie 230812020 Problem Irregular heart beats I49.9 Active 045166325 Problem Eye exam normal Z01.00 Active 2438 85977 Problem Cigarette nicotine dependence without complication F17.210 Active 02491156 Problem Acquired hypothyroidism E03.9 Active 961360413 Problem Abnormal mammogram R92.8 Active 1 26979799 Problem High risk medication use Z79.899 Activ e 013615243 Problem Osteoarthritis M19.90 Active 14380 5006 Problem Diabetes E11.9 Active 550963393 ALLERGIES Unknown Allergies SOCIAL HISTORY No smoking Hx information available PLAN OF CARE VITAL SIGNS MEDICATIONS Medication Instructions Dosage Frequency Start Date End Date Duration S tatus Warfarin Sodium 5 MG Orally Once a day 1 tablet 24h 30 days Active RESULTS No Results PROCEDURES No Known procedures IMMUNIZATIONS No Known Immunizations
--- OUTSIDE RECORDS SUMMARY | 2020-01-28 14:43 | XMS REPORT ---
Author Author Katarina LYON Organization [facility] Address [address] [place] [address] Care Team Providers Care Seed Tester Name Role Phone DAVID LYON Unavailable PROBLEMS Type Condition ICD9-CM Code [id number] Code Onset Dates Condition S tatus SNOMED Code Problem Encounter for immunization Z23 Act essie 696864256 Problem Urinary incontinence, unspecified type R32 Active 264408822 Problem History of cataract surgery Z98.49 Ac tive 098989103 Problem Chronic atrial fibrillation I48.2 Ac tive 515806074 Problem Essential hypertension I10 Active 48839321 Problem Morbid obesity, unspecified obesity type E66.01 Active 239549240 Problem snf (current) use of anticoagulants Z79.01 Active 819796575 Problem Other urinary incontinence N39.498 Act essie 599876734 Problem Irregular heart beats I49.9 Active 407037346 Problem Eye exam normal Z01.00 Active 2438 91430 Problem Cigarette nicotine dependence without complication F17.210 Active 95542202 Problem Acquired hypothyroidism E03.9 Active 123759668 Problem Abnormal mammogram R92.8 Active 1 84420855 Problem High risk medication use Z79.899 Activ e 319493879 Problem Osteoarthritis M19.90 Active 63246 5006 Problem Diabetes E11.9 Active 219295801 ALLERGIES Unknown Allergies SOCIAL HISTORY No smoking Hx information available PLAN OF CARE VITAL SIGNS MEDICATIONS Medication Instructions Dosage Frequency Start Date End Date Duration S tatus Benadryl 25 MG Orally every 6 hours as needed 2 capsules Aug, 05 days Active RESULTS No Results PROCEDURES No Known procedures IMMUNIZATIONS No Known Immunizations
--- OUTSIDE RECORDS SUMMARY | 2020-01-28 14:43 | XMS REPORT ---
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 Problem Abnormal mammogram R92.8 Active Problem Personal history of tobacco use, presenting hazards to health V15.82 Active Problem Diabetes E11.9 Active Problem Encounter for immunization Z23 A ctive Problem History of cataract surgery Z98.49 Active Problem Osteoarthritis M19.90 Active Problem Cigarette nicotine dependence without complication F17 .210 Active Problem Acquired hypothyroidism E03.9 Acti ve Problem High risk medication use Z79.899 Act essie Problem Unspecified viral infection, in conditions classified elsewhere and of unspecified site 079.99 Active Problem Unspecified breast screening V76.10 Active Problem Need for prophylactic vaccination and inoculation, Inf luenza V04.81 Active Problem Other screening mammogram V76.12 Ac tive Medications Medication Code System Code Instructions Start Date End Date Status Dosage tramadol NDC 0 50 mg November 01, 2014 take 1 t ablet by Oral route every 8 hours as needed PRN pain Results No Known Results Summary Purpose [employer] Submission
--- OUTSIDE RECORDS SUMMARY | 2020-01-28 14:43 | XMS REPORT ---
Author Author Katarina LYON Organization [facility] Address [address] [place] [address] Care Team Providers Care Installer Technician Name Role Phone DAVID LYON Unavailable PROBLEMS Type Condition ICD9-CM Code [id number] Code Onset Dates Condition S tatus SNOMED Code Problem Encounter for immunization Z23 Act essie 006421870 Problem Urinary incontinence, unspecified type R32 Active 105309398 Problem History of cataract surgery Z98.49 Ac tive 930307984 Problem Chronic atrial fibrillation I48.2 Ac tive 622167147 Problem Essential hypertension I10 Active 44888077 Problem Morbid obesity, unspecified obesity type E66.01 Active 599342825 Problem nursing home (current) use of anticoagulants Z79.01 Active 898971255 Problem Other urinary incontinence N39.498 Act essie 397684499 Problem Irregular heart beats I49.9 Active 634922455 Problem Eye exam normal Z01.00 Active 2438 91813 Problem Cigarette nicotine dependence without complication F17.210 Active 81791777 Problem Acquired hypothyroidism E03.9 Active 931262063 Problem Abnormal mammogram R92.8 Active 1 50909317 Problem High risk medication use Z79.899 Activ e 603659080 Problem Osteoarthritis M19.90 Active 62635 5006 Problem Diabetes E11.9 Active 749912719 ALLERGIES Unknown Allergies SOCIAL HISTORY No smoking Hx information available PLAN OF CARE Activity Details Follow Up 2 Months Reason: VITAL SIGNS MEDICATIONS Unknown Medications RESULTS No Results PROCEDURES Procedure Date Ordered Related Diagnosis Body Site Stable Visit (10 minutes) Aug 14, 2016 IMMUNIZATIONS No Known Immunizations
--- OUTSIDE RECORDS SUMMARY | 2020-01-28 14:43 | XMS REPORT ---
Author Author Katarina RODRIGUEZ Organization [facility] Address [address] [place] [address] Care Team Providers Care Outside Event Sales Specialist Name Role Phone GEORGINA RODRIGUEZ Unavailable PROBLEMS Type Condition ICD9-CM Code YPF08-BA Code Onset Dates Condition S tatus SNOMED Code Problem Encounter for immunization Z23 Act essie 383968128 Problem Urinary incontinence, unspecified type R32 Active 658399119 Problem History of cataract surgery Z98.49 Ac tive 593887947 Problem Chronic atrial fibrillation I48.2 Ac tive 540690476 Problem Essential hypertension I10 Active 79900207 Problem Morbid obesity, unspecified obesity type E66.01 Active 907940477 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 226213441 Problem Other urinary incontinence N39.498 Act essie 336151075 Problem Irregular heart beats I49.9 Active 044701695 Problem Eye exam normal Z01.00 Active 2438 44606 Problem Cigarette nicotine dependence without complication F17.210 Active 55354273 Problem Acquired hypothyroidism E03.9 Active 555090541 Problem Abnormal mammogram R92.8 Active 1 18803089 Problem High risk medication use Z79.899 Activ e 470765069 Problem Osteoarthritis M19.90 Active 08940 5006 Problem Diabetes E11.9 Active 972340144 ALLERGIES No Information ENCOUNTERS Encounter Location Date Diagnosis [facility] [address] [facility] [id number] [address] [place] [id number] Nov, [facility] [address] [facility] [place] [id number] [address] [place] [address] Oct, Osteoarthritis M19.90 [facility] [address] [facility] [place] [id number] [address] [place] [address] Oct, 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 [facility] [address] [facility] [place] [id number] [address] [place] [address] Sep, Osteoarthritis M19.90 [facility] [address] [facility] [place] [id number] [address] [place] [address] Sep, [facility] [address] [facility] [place] [id number] [address] [place] [address] Aug, Osteoarthritis M19.90 [facility] [address] [facility] [place] [id number] [address] [place] [address] Jul, Osteoarthritis M19.90 [facility] [address] [facility] [place] [id number] [address] [place] [address] Jul, Osteoarthritis M19.90 [facility] [address] [facility] [place] [id number] [address] [place] [address] Jun, Diabetes E11.9 ; Encounter f or immunization Z23 ; 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 ; Chronic atrial fibrillation I48.2 ; Osteoarthritis M19.90 ; Tobacco abuse Z72.0 and Bug bite, initial encounter W57.XXXA [facility] [address] [facility] [place] [id number] [address] [place] [address] May, Osteoarthritis M19.90 [facility] [address] [facility] [place] [id number] [address] [place] [address] Apr, Osteoarthritis M19.90 [facility] [address] [facility] [place] [place] [id number] [address] [place] [address] Mar, Chronic atrial fibrillation I48.2 [facility] [address] [id number] [address] [place] [address] Mar, [facility] [address] [facility] [place] [id number] [address] [place] [address] Mar, Osteoarthritis M19.90 [facility] [address] [facility] [place] [place] [id number] [address] [place] [address] Mar, 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 and Chronic atrial fibrillation I48.2 [facility] [address] [id number] [address] [place] [address] Mar, Chronic atrial fibrillation I48.2 and [facility] (current) use of anticoagulants Z79.01 [facility] [address] [id number] [address] [place] [address] Mar, [facility] (current) use of a nticoagulants Z79.01 [facility] [address] [id number] [address] [place] [address] Mar, [facility] (current) use of a nticoagulants Z79.01 [facility] [address] [id number] [address] [place] [address] Mar, Osteoarthritis M19.90 [facility] [address] [facility] [place] [id number] [address] [place] [address] Feb, Encounter for screening mamm ogram for malignant neoplasm of breast Z12.31 [facility] [address] [id number] [address] [place] [address] Feb, Osteoarthritis M19.90 [facility] [address] [id number] [address] [place] [address] Jan, [facility] [address] [id number] [address] [place] [address] Jan, 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 ; Diabetes E11.9 ; Osteoarthritis M19.90 and Breast cancer screening Z12.39 [facility] [address] [id number] [address] [place] [address] Jan, Osteoarthritis M19.90 [facility] [address] [id number] [address] [place] [address] Jan, Osteoarthritis M19.90 [facility] [address] [id number] [address] [place] [address] Jan, [facility] [address] [id number] [address] [place] [address] December, Osteoarthritis M19.90 [facility] [address] [id number] [address] [place] [address] December, Osteoarthritis M19.90 [facility] [address] [id number] [facility] [id number] Nov, [facility] [address] [id number] [address] [place] [address] Nov, [facility] [address] [id number] [address] [place] [address] Nov, [facility] [address] [id number] [address] [place] [address] Nov, Diabetes E11.9 [facility] [address] [id number] [address] [place] [address] Nov, [facility] [address] [id number] [address] [place] [address] Oct, Osteoarthritis M19.90 [facility] [address] [id number] [address] [place] [address] Oct, Osteoarthritis M19.90 ; 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 [address] [id number] [facility] [id number] Aug, [facility] [address] [id number] [address] [place] [address] Aug, [facility] [address] [facility] [place] [id number] [address] [place] [address] Aug, [facility] [id number] [place] [id number] Aug, [facility] [address] [place] [id number] Aug Osteoarthritis M19.90 and Essential hypertension I10 [facility] [address] [place] [id number] [address] [place] [address] Aug, Other urinary incontinence N 39.498 [facility] [address] [facility] [place] [id number] [address] [place] [address] Jul, Osteoarthritis M19.90 [facility] [address] [address] Jun, Diabetes E11.9 ; Encounter f or immunization Z23 ; Osteoarthritis M19.90 ; [facility] (current) use of anticoagulants Z79.01 ; Cigarette nicotine dependence without complication F17.210 ; Acquired hypothyroidism E03.9 ; Morbid obesity, unspecified obesity type E66.01 and Irregular heart beats I49.9 [facility] [address] [facility] [place] [id number] [address] [place] [address] Jun, Osteoarthritis M19.90 [facility] [address] [facility] [place] [id number] [address] [place] [address] May, Osteoarthritis M19.90 [facility] [address] [place] [id number] [address] [place] [address] May, Urinary incontinence, unspec ified type R32 [facility] [address] [facility] [place] [id number] [address] [place] [address] May, [facility] [address] [facility] [place] [id number] [address] [place] [address] Apr, Osteoarthritis M19.90 [facility] [address] [place] [id number] [address] [place] [address] Apr, [facility] (current) use of a nticoagulants Z79.01 [facility] [address] [id number] [address] [place] [address] Apr, [facility] [address] [facility] [place] [place] [id number] [address] [place] [address] Apr, Osteoarthritis M19.90 [facility] [address] [facility] [id number] [address] [place] [address] Mar, Diabetes E11.9 ; Hypothyroid ism, unspecified type E03.9 ; Osteoarthritis M19.90 ; High risk medication use Z79.899 ; Cigarette nicotine dependence without complication F17.210 and Morbid obesity, unspecified obesity type E66.01 [facility] [address] [facility] [place] [id number] [address] [place] [address] Mar, Osteoarthritis M19.90 [place] [address] [facility] [place] [id number] [address] [place] [address] December, Osteoarthritis M19.90 [facility] [address] [facility] [id number] [address] [place] [address] December, [facility] [address] [facility] [place] [id number] [address] [place] [address] Oct, [facility] [address] [facility] [place] [place] [id number] [address] [place] [phone] Oct, [facility] [address] [facility] [place] [id number] [address] [place] [address] Aug, [facility] [address] [facility] [place] [id number] [address] [place] [phone] Jul, [facility] [address] [facility] [place] [id number] [address] [place] [phone] Jul, [place] [address] [place] [id number] [address] [place] [address] Jul, Diabetes E11.9 ; Encounter f or immunization Z23 ; Abnormal mammogram R92.8 ; Acquired hypothyroidism E03.9 ; High risk medication use Z79.899 ; Osteoarthritis M19.90 and Cigarette nicotine dependence without complication F17.210 [facility] [address] [id number] [address] [place] [phone] Jul, [facility] [address] [id number] [address] [place] [address] Jun, Abnormal mammogram R92.8 [facility] [address] [id number] [address] [place] [phone] Apr, [facility] [address] [id number] [address] [place] [address] Apr, [facility] [address] [id number] [address] [place] [address] Mar, [facility] [address] [id number] [address] [place] [address] Mar, Current use of detention ant 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 V58.61 [facility] [address] [id number] [address] [place] [address] Feb, [facility] [address] [id number] [address] [place] [address] Jan, [facility] [address] [id number] [address] [place] [address] December, [facility] [address] [id number] [address] [place] [address] Nov, [facility] [address] [id number] [address] [place] [address] Nov, [facility] [address] [id number] [address] [place] [phone] Oct, [facility] [address] [id number] [address] [place] [address] Oct, [facility] [address] [id number] [address] [place] [address] Oct, [facility] [address] [id number] [address] [place] [address] Oct, [facility] [address] [id number] [address] [place] [address], [place] [address] Oct, [facility] [address] [id number] [address] [place] [address], [place] [address] Oct, [facility] [address] [id number] [address] [place] [address], [place] [address] Sep, [facility] [address] [id number] [address] [place] [address], [place] [address] Sep, [facility] [address] [id number] [address] [place] [address], [place] [address] Sep, [facility] [address] [id number] [address] [place] [address], [place] [address] Sep, [facility] [address] [id number] [address] [place] [address], [place] [address] Aug, [facility] [address] [id number] [address] [place] [address], [place] [address] Aug, [facility] [address] [id number] [address] [place] [address], [place] [address] Aug, [facility] [address] [id number] [address] [place] [address], [place] [address] Aug, [facility] [address] [id number] [address] [place] [address], [place] [address] Aug, [facility] [address] [id number] [address] [place] [address] Aug, [facility] [address] [id number] [address] [place] [address], [place] [address] Jul, [facility] [address] [id number] [address] [place] [address], [place] [address] Jul, [facility] [address] [id number] [address] [place] [address], [place] [address] Jul, [facility] [place] [address] [id number] [address] [place] [address], [place] [address] Jul, [facility] [address] [id number] [address] [place] [address], [place] [address] Jul, [facility] [address] [id number] [address] [place] [address], [place] [address] Jul, [facility] [address] [id number] [address] [place] [address], [place] [address] Jun, [facility] [address] [id number] [address] [place] [address], [place] [address] Jun, [facility] [address] [id number] [address] [place] [address], [place] [address] Jun, [facility] [address] [id number] [address] [place] [address], [place] [address] Jun, [facility] [address] [id number] [address] [place] [address], [place] [address] Jun, [facility] [place] [address] [id number] [address] [place] [address], [place] [address] Jun, [facility] [place] [address] [id number] [address] [place] [address], [place] [address] Jun, [facility] [address] [id number] [address] [place] [address], [place] [address] Jun, [facility] [place] [address] [id number] [address] [place] [address], [place] [address] Jun, [facility] [address] [id number] [address] [place] [address], [place] [address] May, [facility] [address] [id number] [address] [place] [address], [place] [address] May, [facility] [place] [facility] [address] [id number] [address] [place] [address], [place] [address] Apr, [facility] [place] [facility] [address] [id number] [address] [place] [address], [place] [address] Apr, [facility] [place] [facility] [address] [id number] [facility] [place] [address] Apr, 2013 [facility] [place] [facility] [address] [id number] [address] [place] [address], [place] [address] Apr, [facility] [address] [id number] [address] [place] [address], [place] [address] Apr, 2013 [facility] [address] [id number] [address] [place] [address], [place] [address] Apr, 2013 [facility] [address] [id number] [address] [place] [address], [place] [address] Apr, [facility] [address] [id number] [address] [place] [address], [place] [address] Apr, [facility] [address] [id number] [address] [place] [address], [place] [address] Apr, [facility] [address] [id number] [address] [place] [address], [place] [address] Apr, [facility] [place] [facility] [address] [id number] [address] [place] [address], [place] [address] Mar, [facility] [address] [id number] [address] [place] [address], [place] [address] Mar, [facility] [place] [address] [id number] [address] [place] [address], [place] [address] Mar, [facility] [address] [id number] [address] [place] [address], [place] [address] Mar, [facility] [address] [id number] [address] [place] [address], [place] [address] Mar, [facility] [place] [facility] [address] [id number] [address] [place] [address], [place] [address] Mar, [facility] [address] [id number] [address] [place] [address], [place] [address] Feb, [facility] [place] [facility] [address] [id number] [address] [place] [address], [place] [address] Feb, [facility] [address] [id number] [address] [place] [address], [place] [address] Feb, [facility] [address] [id number] [address] [place] [address], [place] [address] Feb, [facility] [address] [id number] [address] [place] [address], [place] [address] Jan, [facility] [address] [id number] [address] [place] [address], [place] [address] Jan, [facility] [address] [id number] [address] [place] [address], [place] [address] Jan, [facility] [address] [id number] [address] [place] [address], [place] [address] Jan, [facility] [address] [id number] [address] [place] [address], [place] [address] Oct, [facility] [address] [id number] [address] [place] [address], [place] [address] Oct, [facility] [address] [id number] [address] [place] [address], [place] [address] Sep, [facility] [address] [id number] [address] [place] [address], [place] [address] Sep, [facility] [address] [id number] [address] [place] [address], [place] [address] Sep, [facility] [address] [id number] [address] [place] [address], [place] [address] Sep, [facility] [address] [id number] [address] [place] [address], [place] [address] Aug, [facility] [address] [id number] [address] [place] [address], [place] [address] Aug, [facility] [address] [id number] [address] [place] [address], [place] [address] Aug, [facility] [address] [id number] [address] [place] [address], [place] [address] Aug, [facility] [address] [id number] [address] [place] [address], [place] [address] Jul, [facility] [address] [id number] [address] [place] [address], [place] [address] 30 Jul, 2013 [facility] [address] [id number] [address] [place] [address], [place] [address] Jul, [facility] [address] [id number] [address] [place] [address], [place] [address] Jul, [facility] [address] [id number] [address] [place] [address], [place] [address] Jul, [facility] [address] [id number] [address] [place] [address], [place] [address] Jul, [facility] [address] [id number] [address] [place] [address], [place] [address] Jun, [facility] [address] [id number] [address] [place] [address], [place] [address] Jun, [facility] [address] [id number] [address] [place] [id number] Jun, [facility] [address] [id number] [address] [place] [id number] Jun, [facility] [address] [id number] [address] [place] [id number] Jun, [facility] [address] [id number] [address] [place] [address], [place] [address] Jun, [facility] [address] [id number] [address] [place] [address], [place] [address] May, [facility] [address] [id number] [address] [place] [id number] May, [facility] [address] [id number] [address] [place] [id number] May, [facility] [address] [id number] [address] [place] [address], [place] [address] May, [facility] [address] [id number] [address] [place] [address], [place] [address] May, [facility] [address] [id number] [address] [place] [address], [place] [address] May, [facility] [address] [id number] [address] [place] [address], [place] [address] May, [facility] [address] [id number] [address] [place] [address], [place] [id number] May, [facility] [address] [id number] [address] [place] [address], [place] [address] Apr, [facility] [address] [id number] [address] [place] [address], [place] [address] Apr, [facility] [address] [id number] [address] [place] [address], [place] [address] Mar, [facility] [address] [id number] [address] [place] [address], [place] [address] Mar, [facility] [address] [id number] [address] [place] [address], [place] [address] Mar, [facility] [address] [id number] [address] [place] [address], [place] [address] Mar, [facility] [address] [id number] [address] [place] [address], [place] [address] Feb, [facility] [address] [id number] [address] [place] [address], [place] [address] Jan, [facility] [address] [id number] [address] [place] [address], [place] [address] December, [facility] [address] [id number] [address] [place] [address], [place] [address] December, [facility] [address] [id number] [address] [place] [address], [place] [address] December, [facility] [address] [id number] [address] [place] [address], [place] [address] Nov, [facility] [address] [id number] [address] [place] [address], [place] [address] Nov, [facility] [address] [id number] [address] [place] [address], [place] [address] Sep, [facility] [address] [id number] [address] [place] [address], [place] [address] Sep, [facility] [address] [id number] [address] [place] [address], [place] [address] Sep, [facility] [address] [id number] [address] [place] [address], [place] [address] Sep, [facility] [address] [id number] [address] [place] [address], [place] [address] Aug, [facility] [address] [id number] [address] [place] [address], [place] [address] Aug, [facility] [address] [id number] [address] [place] [address], [place] [address] Aug, [facility] [address] [id number] [address] [place] [address], [place] [address] Aug, [facility] [address] [id number] [address] [place] [address], [place] [address] Jul, [facility] [address] [id number] [address] [place] [address], [place] [address] Jul, [facility] [address] [id number] [address] [place] [address], [place] [address] Jul, [facility] [address] [id number] [address] [place] [address], [place] [address] Jul, [facility] [address] [id number] [address] [place] [address], [place] [address] Jun, [facility] [address] [id number] [address] [place] [address], [place] [address] Jun, [facility] [address] [id number] [address] [place] [address], [place] [address] Jun, [facility] [address] [id number] [address] [place] [address], [place] [address] Jun, [facility] [address] [id number] [address] [place] [address], [place] [address] May, [facility] [address] [id number] [address] [place] [address], [place] [address] May, [facility] [address] [id number] [address] [place] [address], [place] [address] May, [facility] [address] [id number] [address] [place] [address], [place] [address] May, [facility] [address] [id number] [address] [place] [address], [place] [address] May, [facility] [address] [id number] [address] [place] [address], [place] [address] 10 Apr, 2012 [facility] [address] [id number] [address] [place] [address], [place] [address] Apr, [facility] [address] [id number] [address] [place] [address], [place] [address] 07 Apr, 2012 [facility] [address] [id number] [address] [place] [address], [place] [address] 06 Apr, 2012 [facility] [address] [id number] [address] [place] [address], [place] [address] Mar, [facility] [address] [id number] [address] [place] [address], [place] [address] Mar, [facility] [address] [id number] [address] [place] [address], [place] [address] Feb, [facility] [address] [id number] [address] [place] [address], [place] [address] Feb, [facility] [address] [id number] [address] [place] [address], [place] [address] Feb, [facility] [address] [id number] [address] [place] [address], [place] [address] Jan, [facility] [address] [id number] [address] [place] [address], [place] [address] Jan, [facility] [address] [id number] [address] [place] [address], [place] [address] December, [facility] [address] [id number] [address] [place] [address], [place] [address] December, [facility] [address] [id number] [address] [place] [address], [place] [address] Nov, [facility] [address] [id number] [address] [place] [address], [place] [address] Oct, [facility] [address] [id number] [address] [place] [address], [place] [address] Oct, [facility] [address] [id number] [address] [place] [address], [place] [address] Sep, [facility] [address] [id number] [address] [place] [address], [place] [address] Sep, [facility] [address] [id number] [address] [place] [address], [place] [address] Aug, [facility] [address] [id number] [address] [place] [address], [place] [address] Aug, [facility] [address] [id number] [address] [place] [address], [place] [address] Jul, [facility] [address] [id number] [address] [place] [address], [place] [address] Jul, [facility] [address] [id number] [address] [place] [address], [place] [address] Jul, [facility] [address] [id number] [address] [place] [address], [place] [address] 07 Jun, 2011 [facility] [address] [id number] [address] [place] [address], [place] [address] 07 Jun, 2011 [facility] [address] [id number] [address] [place] [address], [place] [address] 13 May, 2011 [facility] [address] [id number] [address] [place] [address], [place] [address] 11 May, 2011 [facility] [address] [id number] [address] [place] [address], [place] [address] 11 May, 2011 [facility] [address] [id number] [address] [place] [address], [place] [address] 09 Jul, 2010 [facility] [address] [id number] [address] [place] [address], [place] [address] 08 Jul, 2010 [facility] [address] [id number] [address] [place] [address], [place] [address] 15 Jun, 2010 [facility] [address] [id number] [address] [place] [address], [place] [address] May, [facility] [address] [id number] [address] [place] [address] May, [facility] [address] [id number] [address] [place] [address], [place] [address] 14 Aug, 2009 [facility] [address] [id number] [address] [place] [address] Jul, [facility] [address] [id number] [address] [place] [address], [place] [address] Jun, [facility] [address] [id number] [address] [place] [id number] Jun, [facility] [address] [id number] [address] [place] [address], [place] [address] Jun, [facility] [address] [id number] [address] [place] [address] Jun, [facility] [address] [facility] [id number] [address] [place] [id number] Jun, [facility] [address] [facility] [id number] [address] [place] [id number] May, [facility] [address] [facility] [id number] [address] [place] [id number] Sep, IMMUNIZATIONS No Known Immunizations SOCIAL HISTORY Never Assessed REASON FOR VISIT Lab (walk-in)--[facility] PLAN OF CARE VITAL SIGNS MEDICATIONS Unknown Medications RESULTS No Results PROCEDURES Procedure Date Ordered Result Body Site PROTHROMBIN TIME Apr 07, 2017 INSTRUCTIONS MEDICATIONS ADMINISTERED No Known [...]
--- OUTSIDE RECORDS SUMMARY | 2020-01-28 14:43 | XMS REPORT ---
Author Author Katarina RODRIGUEZ Organization [facility] Address [address] [place] [address] Care Team Providers Care Criminal Justice Professor Name Role Phone GEORGINA RODRIGUEZ Unavailable PROBLEMS Type Condition ICD9-CM Code QEI55-ZA Code Onset Dates Condition S tatus SNOMED Code Problem Encounter for immunization Z23 Act essie 872912933 Problem Urinary incontinence, unspecified type R32 Active 641441125 Problem History of cataract surgery Z98.49 Ac tive 980781325 Problem Chronic atrial fibrillation I48.2 Ac tive 197849648 Problem Essential hypertension I10 Active 72012641 Problem Morbid obesity, unspecified obesity type E66.01 Active 180274802 Problem 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 Active 086745234 Problem Other urinary incontinence N39.498 Act essie 280779918 Problem Irregular heart beats I49.9 Active 964510428 Problem Eye exam normal Z01.00 Active 2438 63061 Problem Cigarette nicotine dependence without complication F17.210 Active 69229343 Problem Acquired hypothyroidism E03.9 Active 865083784 Problem Abnormal mammogram R92.8 Active 1 22941767 Problem High risk medication use Z79.899 Activ e 681445303 Problem Osteoarthritis M19.90 Active 05242 5006 Problem Diabetes E11.9 Active 389903525 ALLERGIES No Information ENCOUNTERS Encounter Location Date Diagnosis [facility] [address] [facility] [id number] [address] [place] [address] Jan, Osteoarthritis M19.90 [facility] [address] [facility] [id number] [address] [place] [address] December, [facility] [address] [facility] [id number] [address] [place] [address] December, Osteoarthritis M19.90 [facility] [address] [facility] [id number] [address] [place] [address] Nov, Diabetes E11.9 ; halfway ( current) use of anticoagulants Z79.01 ; Acquired hypothyroidism E03.9 ; Cigarette nicotine dependence without complication F17.210 ; Osteoarthritis M19.90 ; BMI 45.0-49.9, adult Z68.42 and Chronic atrial fibrillation I48.2 [facility] [address] [place] [address] Nov, Osteoarthritis M19.90 [facility] [address] [address] Oct, Osteoarthritis M19.90 [place] [address] [address] Oct, halfway (current) use of a nticoagulants Z79.01 [facility] [address] [place] [address] Sep, Osteoarthritis M19.90 [place] [address] [address] Sep, [place] [address] [address] Aug, Osteoarthritis M19.90 [facility] [address] [address] Jul, Osteoarthritis M19.90 [facility] [address] [place] [id number] [address] [place] [address] Jul, Osteoarthritis M19.90 [place] [address] [address] Jun, Diabetes E11.9 ; Encounter f or immunization Z23 ; halfway (current) use of anticoagulants Z79.01 ; Chronic atrial fibrillation I48.2 ; Osteoarthritis M19.90 ; Tobacco abuse Z72.0 and Bug bite, initial encounter W57.XXXA [place] [address] [address] May, Osteoarthritis M19.90 [facility] [address] [id number] [address] [place] [address] Apr, Osteoarthritis M19.90 [facility] [address] [id number] [address] [place] [address] Mar, Chronic atrial fibrillation I48.2 [facility] [address] [id number] [address] [place] [address] Mar, [facility] [address] [id number] [address] [place] [address] Mar, Osteoarthritis M19.90 [facility] [address] [id number] [address] [place] [address] Mar, 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 health (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) use of a nticoagulants Z79.01 and Chronic atrial fibrillation I48.2 [facility] [address] [id number] [address] [place] [address] Mar, Chronic atrial fibrillation I48.2 and 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 [facility] [address] [id number] [address] [place] [address] Mar, rn employee health (current) use of a nticoagulants Z79.01 [facility] [address] [id number] [address] [place] [address] Mar, rn employee health (current) use of a nticoagulants Z79.01 [facility] [address] [id number] [address] [place] [address] Mar, Osteoarthritis M19.90 [facility] [address] [id number] [address] [place] [address] Feb, Encounter for screening mamm ogram for malignant neoplasm of breast Z12.31 [facility] [address] [id number] [address] [place] [address] Feb, Osteoarthritis M19.90 [facility] [address] [id number] [address] [place] [address] Jan, [facility] [address] [id number] [address] [place] [address] Jan, rn employee health (current) use of a nticoagulants Z79.01 ; Diabetes E11.9 ; Osteoarthritis M19.90 and Breast cancer screening Z12.39 [facility] [address] [id number] [address] [place] [address] Jan, Osteoarthritis M19.90 [facility] [address] [id number] [address] [place] [address] Jan, Osteoarthritis M19.90 [facility] [address] [id number] [address] [place] [address] Jan, [facility] [address] [id number] [address] [place] [address] December, Osteoarthritis M19.90 [facility] [address] [id number] [address] [place] [address] December, Osteoarthritis M19.90 [facility] [id number] [place] [id number] Nov, [facility] [address] [id number] [address] [place] [address] Nov, [facility] [address] [id number] [address] [place] [address] Nov, [facility] [address] [id number] [address] [place] [address] Nov, Diabetes E11.9 [facility] [address] [id number] [address] [place] [address] Nov, [facility] [address] [id number] [address] [place] [address] Oct, Osteoarthritis M19.90 [facility] [address] [id number] [address] [place] [address] Oct, Osteoarthritis M19.90 ; 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 ; Diabetes E11.9 ; Cigarette nicotine dependence without complication F17.210 and Chronic atrial fibrillation I48.2 [place] [address] [address] Aug, [facility] [address] [place] [id number] [address] [place] [address] Aug, halfway (current) use of a nticoagulants Z79.01 [facility] [address] [place] [id number] [address] [place] [address] Aug, [facility] [address] [place] [id number] [place] [id number] Aug, [place] [address] [address] Aug, [place] [address] [address] Aug, [facility] [address] [place] [id number] [place] [id number] Aug, [facility] [address] [id number] Aug Osteoarthritis M19.90 and Essential hypertension I10 [place] [address] [place] [id number] [address] [place] [address] Aug, Other urinary incontinence N 39.498 [place] [address] [place] [id number] [address] [place] [address] Jul, Osteoarthritis M19.90 [place] [address] [place] [id number] [address] [place] [address] Jun, 2016 Diabetes E11.9 ; Encounter f or immunization Z23 ; Osteoarthritis M19.90 ; 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 ; Cigarette nicotine dependence without complication F17.210 ; Acquired hypothyroidism E03.9 ; Morbid obesity, unspecified obesity type E66.01 and Irregular heart beats I49.9 [place] [address] [address] Jun, Osteoarthritis M19.90 [facility] [address] [facility] [id number] [address] [place] [address] May, Osteoarthritis M19.90 [facility] [address] [facility] [id number] [address] [place] [address] May, Urinary incontinence, unspec ified type R32 [facility] [address] [place] [id number] [address] [place] [address] May, [facility] [address] [place] [id number] [address] [place] [address] Apr, Osteoarthritis M19.90 [place] [address] [place] [id number] [place] [address] Apr, halfway (current) use of a nticoagulants Z79.01 [place] [address] [place] [address] Apr, [facility] [address] [place] [id number] [address] [place] [address] Apr, Osteoarthritis M19.90 [place] [address] [address] Mar, Diabetes E11.9 ; Hypothyroid ism, unspecified type E03.9 ; Osteoarthritis M19.90 ; High risk medication use Z79.899 ; Cigarette nicotine dependence without complication F17.210 and Morbid obesity, unspecified obesity type E66.01 [facility] [address] [facility] [id number] [address] [place] [address] Mar, Osteoarthritis M19.90 [facility] [address] [place] [id number] [address] [place] [address] December, Osteoarthritis M19.90 [place] [address] [place] [id number] [address] [place] [address] December, [place] [address] [place] [id number] [address] [place] [address] Oct, [facility] [address] [facility] [id number] [address] [place] [address] Oct, [facility] [address] [id number] [address] [place] [address] Aug, [facility] [address] [facility] [id number] [address] [place] [address] Jul, [facility] [address] [facility] [id number] [address] [place] [address] Jul, [facility] [address] [facility] [id number] [address] [place] [address] Jul, Diabetes E11.9 ; Encounter f or immunization Z23 ; Abnormal mammogram R92.8 ; Acquired hypothyroidism E03.9 ; High risk medication use Z79.899 ; Osteoarthritis M19.90 and Cigarette nicotine dependence without complication F17.210 [facility] [address] [facility] [id number] [address] [place] [address] Jul, [facility] [address] [facility] [id number] [address] [place] [address] Jun, Abnormal mammogram R92.8 [facility] [address] [facility] [id number] [address] [place] [address] Apr, [facility] [address] [facility] [id number] [address] [place] [address] Apr, [facility] [address] [facility] [id number] [address] [place] [address] Mar, [facility] [address] [facility] [id number] [address] [place] [address] Mar, 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 use of 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 project coordination 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 ant 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 V58.61 [facility] [address] [id number] [address] [place] [address] Feb, [facility] [address] [facility] [id number] [address] [place] [address] Jan, [facility] [address] [id number] [address] [place] [address], [place] [address] December, [facility] [address] [id number] [address] [place] [address], [place] [address] Nov, [facility] [address] [id number] [address] [place] [address], [place] [address] Nov, [facility] [address] [id number] [address] [place] [address], [place] [address] Oct, [facility] [address] [id number] [address] [place] [address], [place] [address] Oct, [facility] [address] [id number] [address] [place] [address], [place] [address] Oct, [facility] [address] [id number] [address] [place] [address], [place] [address] Oct, [facility] [address] [id number] [address] [place] [address], [place] [address] Oct, [facility] [address] [id number] [address] [place] [address], [place] [address] Oct, [facility] [address] [id number] [address] [place] [address], [place] [address] Sep, [facility] [address] [id number] [address] [place] [address], [place] [address] Sep, [facility] [address] [id number] [address] [place] [address], [place] [address] Sep, [facility] [address] [id number] [address] [place] [address], [place] [address] Sep, [facility] [address] [id number] [address] [place] [address], [place] [address] Aug, [facility] [address] [id number] [address] [place] [address], [place] [address] Aug, [facility] [address] [id number] [address] [place] [address], [place] [address] Aug, [facility] [address] [id number] [address] [place] [address], [place] [address] 16 Aug, 2014 [facility] [address] [id number] [address] [place] [address], [place] [address] Aug, [facility] [address] [id number] [address] [place] [address], [place] [address] Aug, [facility] [address] [id number] [address] [place] [address], [place] [address] Jul, [facility] [address] [id number] [address] [place] [address], [place] [address] Jul, [facility] [address] [id number] [address] [place] [address], [place] [address] Jul, [facility] [address] [id number] [address] [place] [address], [place] [address] Jul, [facility] [address] [id number] [address] [place] [address], [place] [address] Jul, [facility] [address] [id number] [address] [place] [address], [place] [address] Jul, [facility] [address] [id number] [address] [place] [address], [place] [address] Jun, [facility] [address] [id number] [address] [place] [address], [place] [address] Jun, [facility] [address] [id number] [address] [place] [address], [place] [address] Jun, [facility] [address] [id number] [address] [place] [address], [place] [address] Jun, [facility] [address] [id number] [address] [place] [address], [place] [address] Jun, [facility] [address] [id number] [address] [place] [address], [place] [address] Jun, [facility] [address] [id number] [address] [place] [address], [place] [address] Jun, [facility] [address] [id number] [address] [place] [address], [place] [address] Jun, [facility] [address] [id number] [address] [place] [address], [place] [address] Jun, [facility] [address] [id number] [address] [place] [address], [place] [address] May, [facility] [address] [id number] [address] [place] [address], [place] [address] May, [facility] [address] [id number] [address] [place] [address], [place] [address] Apr, [facility] [address] [id number] [address] [place] [address], [place] [address] Apr, [facility] [address] [id number] [address] [place] [address], [place] [address] Apr, [facility] [address] [id number] [address] [place] [address], [place] [address] Apr, [facility] [address] [id number] [address] [place] [address], [place] [address] Apr, [facility] [address] [id number] [address] [place] [address], [place] [address] Apr, [facility] [address] [id number] [address] [place] [address], [place] [address] Apr, [facility] [address] [id number] [address] [place] [address], [place] [address] Apr, [facility] [address] [id number] [address] [place] [address], [place] [address] Apr, [facility] [address] [id number] [address] [place] [address], [place] [address] Apr, [facility] [address] [id number] [address] [place] [address], [place] [address] Mar, [facility] [address] [id number] [address] [place] [address], [place] [address] Mar, [facility] [address] [id number] [address] [place] [address], [place] [address] Mar, [facility] [address] [id number] [address] [place] [address], [place] [address] Mar, [facility] [address] [id number] [address] [place] [address], [place] [address] Mar, [facility] [address] [id number] [address] [place] [address], [place] [address] Mar, [facility] [address] [id number] [address] [place] [address], [place] [address] Feb, [facility] [address] [id number] [address] [place] [address], [place] [address] Feb, [facility] [address] [id number] [address] [place] [address], [place] [address] Feb, [facility] [address] [id number] [address] [place] [address], [place] [address] Feb, [facility] [address] [id number] [address] [place] [address], [place] [address] Jan, [facility] [address] [id number] [address] [place] [address], [place] [address] Jan, [facility] [address] [id number] [address] [place] [address], [place] [address] Jan, [facility] [address] [id number] [address] [place] [address], [place] [address] Jan, [facility] [address] [id number] [address] [place] [address], [place] [address] Oct, [facility] [address] [id number] [address] [place] [address], [place] [address] Oct, [facility] [address] [id number] [address] [place] [address], [place] [address] Sep, [facility] [address] [id number] [address] [place] [address], [place] [address] Sep, [facility] [address] [id number] [address] [place] [address], [place] [address] Sep, [facility] [address] [id number] [address] [place] [address], [place] [address] Sep, [facility] [address] [id number] [address] [place] [address], [place] [address] Aug, [facility] [address] [id number] [address] [place] [address], [place] [address] Aug, [facility] [address] [id number] [address] [place] [address], [place] [address] Aug, [facility] [address] [id number] [address] [place] [address], [place] [address] Aug, [facility] [address] [id number] [address] [place] [address], [place] [address] Jul, [facility] [address] [id number] [address] [place] [address], [place] [address] Jul, [facility] [address] [id number] [address] [place] [address], [place] [address] Jul, [facility] [address] [id number] [address] [place] [address], [place] [address] Jul, [facility] [address] [id number] [address] [place] [address], [place] [address] Jul, [facility] [address] [id number] [address] [place] [address], [place] [address] Jul, [facility] [address] [id number] [address] [place] [address], [place] [address] Jun, [facility] [address] [id number] [address] [place] [address], [place] [address] Jun, [facility] [address] [id number] [address] [place] [address], [place] [address] Jun, [facility] [address] [id number] [address] [place] [address], [place] [address] Jun, [facility] [address] [id number] [address] [place] [address], [place] [address] Jun, [facility] [address] [id number] [address] [place] [address], [place] [address] Jun, [facility] [address] [id number] [address] [place] [address], [place] [address] May, [facility] [address] [id number] [address] [place] [address], [place] [address] May, [facility] [address] [id number] [address] [place] [address], [place] [address] May, [facility] [address] [id number] [address] [place] [address], [place] [address] May, [facility] [address] [id number] [address] [place] [address], [place] [address] May, [facility] [address] [id number] [address] [place] [address], [place] [address] May, [facility] [address] [id number] [address] [place] [address], [place] [address] May, [facility] [address] [id number] [address] [place] [address], [place] [address] May, [facility] [address] [id number] [address] [place] [address], [place] [address] Apr, [facility] [address] [id number] [address] [place] [address], [place] [address] Apr, [facility] [address] [id number] [address] [place] [address], [place] [address] Mar, [facility] [address] [id number] [address] [place] [address], [place] [address] Mar, [facility] [address] [id number] [address] [place] [address], [place] [address] Mar, [facility] [address] [id number] [address] [place] [address], [place] [address] Mar, [facility] [address] [id number] [address] [place] [address], [place] [address] Feb, [facility] [address] [id number] [address] [place] [address], [place] [address] Jan, [facility] [address] [id number] [address] [place] [address], [place] [address] December, [facility] [address] [id number] [address] [place] [address], [place] [address] December, [facility] [address] [id number] [address] [place] [address], [place] [address] December, [facility] [address] [id number] [address] [place] [address], [place] [address] Nov, [facility] [address] [id number] [address] [place] [address], [place] [address] Nov, [facility] [address] [id number] [address] [place] [address], [place] [address] Sep, [facility] [address] [id number] [address] [place] [address], [place] [address] Sep, [facility] [address] [id number] [address] [place] [address], [place] [address] 14 Sep, 2012 [facility] [address] [id number] [address] [place] [address], [place] [address] Sep, [facility] [address] [id number] [address] [place] [address], [place] [address] Aug, [facility] [address] [id number] [address] [place] [address], [place] [address] Aug, [facility] [address] [id number] [address] [place] [address], [place] [address] 08 Aug, 2012 [facility] [address] [id number] [address] [place] [address], [place] [address] Aug, [facility] [address] [id number] [address] [place] [address], [place] [address] Jul, [facility] [address] [id number] [address] [place] [address], [place] [address] Jul, [facility] [address] [id number] [address] [place] [address], [place] [address] Jul, [facility] [address] [id number] [address] [place] [address], [place] [address] Jul, [facility] [address] [id number] [address] [place] [address], [place] [address] Jun, [facility] [address] [id number] [address] [place] [address], [place] [address] Jun, [facility] [address] [id number] [address] [place] [address], [place] [address] Jun, [facility] [address] [id number] [address] [place] [address], [place] [address] Jun, [facility] [address] [id number] [address] [place] [address], [place] [address] May, [facility] [address] [id number] [address] [place] [address], [place] [address] May, [facility] [address] [id number] [address] [place] [address], [place] [address] May, [facility] [address] [id number] [address] [place] [address], [place] [address] May, [facility] [address] [id number] [address] [place] [address], [place] [address] May, [facility] [address] [id number] [address] [place] [address], [place] [address] Apr, [facility] [address] [id number] [address] [place] [address], [place] [address] 08 Apr, 2012 [facility] [address] [id number] [address] [place] [address], [place] [address] 07 Apr, 2012 [facility] [address] [id number] [address] [place] [address], [place] [address] 06 Apr, 2012 [facility] [address] [id number] [address] [place] [address], [place] [address] Mar, [facility] [address] [id number] [address] [place] [address], [place] [address] Mar, [facility] [address] [id number] [address] [place] [address], [place] [address] Feb, [facility] [address] [id number] [address] [place] [address], [place] [address] Feb, [facility] [address] [id number] [address] [place] [address], [place] [address] Feb, [facility] [address] [id number] [address] [place] [address], [place] [address] Jan, [facility] [address] [id number] [address] [place] [address], [place] [address] Jan, [facility] [address] [id number] [address] [place] [address], [place] [address] December, [facility] [address] [id number] [address] [place] [address], [place] [address] December, [facility] [address] [id number] [address] [place] [address], [place] [address] Nov, [facility] [address] [id number] [address] [place] [address], [place] [address] Oct, [facility] [address] [id number] [address] [place] [address], [place] [address] Oct, [facility] [address] [id number] [address] [place] [address], [place] [address] Sep, [facility] [address] [id number] [address] [place] [address], [place] [address] Sep, [facility] [address] [id number] [address] [place] [address], [place] [address] Aug, [facility] [address] [id number] [address] [place] [address], [place] [address] Aug, [facility] [address] [id number] [address] [place] [address], [place] [address] Jul, [facility] [address] [id number] [address] [place] [address], [place] [address] Jul, [facility] [address] [id number] [address] [place] [address], [place] [address] Jul, [facility] [address] [id number] [address] [place] [address], [place] [address] Jun, [facility] [address] [id number] [address] [place] [address], [place] [address] Jun, [facility] [address] [id number] [address] [place] [address], [place] [address] May, [facility] [address] [id number] [address] [place] [address], [place] [address] May, [facility] [address] [id number] [address] [place] [address], [place] [address] May, [facility] [address] [id number] [address] [place] [address], [place] [address] Jul, [facility] [address] [id number] [address] [place] [address], [place] [address] Jul, [facility] [address] [id number] [address] [place] [address], [place] [address] 15 Jun, 2010 [facility] [address] [id number] [address] [place] [address], [place] [address] May, [facility] [address] [id number] [address] [place] [address] May, [facility] [address] [id number] [address] [place] [address] Aug, [facility] [address] [id number] [address] [place] [address] Jul, [facility] [address] [id number] [address] [place] [address] Jun, [facility] [address] [id number] [address] [place] [address] Jun, [facility] [address] [id number] [address] [place] [address] Jun, [facility] [address] [facility] [id number] [address] [place] [address] Jun, [facility] [address] [id number] [address] [place] [address] Jun, [facility] [address] [id number] [address] [place] [address] May, [facility] [address] [id number] [address] [place] [address] Sep, IMMUNIZATIONS No Known Immunizations SOCIAL HISTORY Never Assessed REASON FOR VISIT Lab (walk-in) PLAN OF CARE VITAL SIGNS MEDICATIONS Unknown Medications RESULTS Name Result Date Reference Range INR (IN HOUSE) 2017-10-08 INR 2.7 1.10 - 3.30 PREVIOUS INR 2.0 CURRENT COUMADIN DOSE NEW COUMADIN DOSE Lot # [id number] Exp date 06/2018 PROCEDURES Procedure Date Ordered Result Body Site PROTHROMBIN TIME October 08, 2017 INSTRUCTIONS MEDICATIONS ADMINISTERED No Known Medications [...]
--- OUTSIDE RECORDS SUMMARY | 2020-01-28 14:43 | XMS REPORT ---
Author Author Katarina RODRIGUEZ Organization [facility] Address [address] [place] [address] Care Team Providers Care Oncology Radiation Physician Name Role Phone GEORGINA RODRIGUEZ Unavailable PROBLEMS Type Condition ICD9-CM Code [id number] Code Onset Dates Condition S tatus SNOMED Code Problem Encounter for immunization Z23 Act essie 870049941 Problem Urinary incontinence, unspecified type R32 Active 624542627 Problem History of cataract surgery Z98.49 Ac tive 340383570 Problem Chronic atrial fibrillation I48.2 Ac tive 671304399 Problem Essential hypertension I10 Active 51009912 Problem Morbid obesity, unspecified obesity type E66.01 Active 428053892 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 310439864 Problem Other urinary incontinence N39.498 Act essie 338029810 Problem Irregular heart beats I49.9 Active 150614248 Problem Eye exam normal Z01.00 Active 2438 86957 Problem Cigarette nicotine dependence without complication F17.210 Active 23656637 Problem Acquired hypothyroidism E03.9 Active 377252949 Problem Abnormal mammogram R92.8 Active 1 15267308 Problem High risk medication use Z79.899 Activ e 656691166 Problem Osteoarthritis M19.90 Active 57433 5006 Problem Diabetes E11.9 Active 700728064 ALLERGIES No Information ENCOUNTERS Encounter Location Date Diagnosis [facility] [address] [facility] [id number] [address] [place] [address] Jan, Osteoarthritis M19.90 [facility] [address] [facility] [id number] [address] [place] [address] December, [facility] [address] [facility] [id number] [address] [place] [address] December, Osteoarthritis M19.90 [facility] [address] [facility] [id number] [address] [place] [address] Nov, Diabetes E11.9 ; shelter ( current) use of anticoagulants Z79.01 ; Acquired hypothyroidism E03.9 ; Cigarette nicotine dependence without complication F17.210 ; Osteoarthritis M19.90 ; BMI 45.0-49.9, adult Z68.42 and Chronic atrial fibrillation I48.2 [facility] [id number] [place] [address] Nov, Osteoarthritis M19.90 [facility] [address] [address] Oct, Osteoarthritis M19.90 [place] [address] [address] Oct, shelter (current) use of a nticoagulants Z79.01 [facility] [id number] [place] [address] Sep, Osteoarthritis M19.90 [place] [address] [address] Sep, [place] [address] [address] Aug, Osteoarthritis M19.90 [facility] [address] [address] Jul, Osteoarthritis M19.90 [facility] [address] [place] [id number] [address] [place] [address] Jul, Osteoarthritis M19.90 [place] [address] [address] Jun, Diabetes E11.9 ; Encounter f or immunization Z23 ; shelter (current) use of anticoagulants Z79.01 ; Chronic atrial fibrillation I48.2 ; Osteoarthritis M19.90 ; Tobacco abuse Z72.0 and Bug bite, initial encounter W57.XXXA [place] [address] [address] May, Osteoarthritis M19.90 [facility] [address] [id number] [address] [place] [address] Apr, Osteoarthritis M19.90 [facility] [address] [id number] [address] [place] [address] Mar, Chronic atrial fibrillation I48.2 [facility] [address] [id number] [address] [place] [address] Mar, [facility] [address] [id number] [address] [place] [address] Mar, Osteoarthritis M19.90 [facility] [address] [id number] [address] [place] [address] Mar, 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 and Chronic atrial fibrillation I48.2 [facility] [address] [id number] [address] [place] [address] Mar, Chronic atrial fibrillation I48.2 and 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 [facility] [address] [id number] [address] [place] [address] Mar, 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 [facility] [address] [id number] [address] [place] [address] Mar, 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 [facility] [address] [id number] [address] [place] [address] Mar, Osteoarthritis M19.90 [facility] [address] [id number] [address] [place] [address] Feb, Encounter for screening mamm ogram for malignant neoplasm of breast Z12.31 [facility] [address] [id number] [address] [place] [address] Feb, Osteoarthritis M19.90 [facility] [address] [id number] [address] [place] [address] Jan, [facility] [address] [id number] [address] [place] [address] Jan, 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 ; Diabetes E11.9 ; Osteoarthritis M19.90 and Breast cancer screening Z12.39 [facility] [address] [id number] [address] [place] [address] Jan, Osteoarthritis M19.90 [facility] [address] [id number] [address] [place] [address] Jan, Osteoarthritis M19.90 [facility] [address] [id number] [address] [place] [address] Jan, [facility] [address] [id number] [address] [place] [address] December, Osteoarthritis M19.90 [facility] [address] [id number] [address] [place] [address] December, Osteoarthritis M19.90 [facility] [id number] [place] [id number] Nov, [facility] [address] [id number] [address] [place] [address] Nov, [facility] [address] [id number] [address] [place] [address] Nov, [facility] [address] [id number] [address] [place] [address] Nov, Diabetes E11.9 [facility] [address] [id number] [address] [place] [address] Nov, [facility] [address] [id number] [address] [place] [address] Oct, Osteoarthritis M19.90 [facility] [address] [id number] [address] [place] [address] Oct, Osteoarthritis M19.90 ; 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 ; Diabetes E11.9 ; Cigarette nicotine dependence without complication F17.210 and Chronic atrial fibrillation I48.2 [place] [address] [address] Aug, [facility] [address] [place] [id number] [address] [place] [address] Aug, shelter (current) use of a nticoagulants Z79.01 [facility] [address] [place] [id number] [address] [place] [address] Aug, [facility] [address] [place] [id number] [place] [id number] Aug, [place] [address] [address] Aug, [place] [address] [address] Aug, [facility] [address] [place] [id number] [place] [address] [id number] Aug, [employer] [address] [place] [id number] Aug Osteoarthritis M19.90 and Essential hypertension I10 [place] [address] [place] [id number] [address] [place] [address] Aug, Other urinary incontinence N 39.498 [place] [address] [place] [id number] [address] [place] [address] Jul, Osteoarthritis M19.90 [place] [address] [place] [id number] [address] [place] [address] Jun, 2016 Diabetes E11.9 ; Encounter f or immunization Z23 ; Osteoarthritis M19.90 ; 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 ; Cigarette nicotine dependence without complication F17.210 ; Acquired hypothyroidism E03.9 ; Morbid obesity, unspecified obesity type E66.01 and Irregular heart beats I49.9 [place] [address] [address] Jun, Osteoarthritis M19.90 [facility] [address] [facility] [id number] [address] [place] [address] May, Osteoarthritis M19.90 [facility] [address] [facility] [id number] [address] [place] [address] May, Urinary incontinence, unspec ified type R32 [facility] [address] [place] [id number] [address] [place] [address] May, [facility] [address] [place] [id number] [address] [place] [address] Apr, Osteoarthritis M19.90 [place] [address] [place] [id number] [place] [address] Apr, shelter (current) use of a nticoagulants Z79.01 [place] [address] [place] [address] Apr, [facility] [address] [place] [id number] [address] [place] [address] Apr, Osteoarthritis M19.90 [place] [address] [address] Mar, Diabetes E11.9 ; Hypothyroid ism, unspecified type E03.9 ; Osteoarthritis M19.90 ; High risk medication use Z79.899 ; Cigarette nicotine dependence without complication F17.210 and Morbid obesity, unspecified obesity type E66.01 [facility] [address] [facility] [id number] [address] [place] [address] Mar, Osteoarthritis M19.90 [facility] [address] [place] [id number] [address] [place] [address] December, Osteoarthritis M19.90 [place] [address] [place] [id number] [address] [place] [address] December, [place] [address] [place] [id number] [address] [place] [address] Oct, [facility] [address] [facility] [id number] [address] [place] [address] Oct, [facility] [address] [id number] [address] [place] [address] Aug, [facility] [address] [facility] [id number] [address] [place] [address] Jul, [facility] [address] [facility] [id number] [address] [place] [address] Jul, [facility] [address] [facility] [id number] [address] [place] [address] Jul, Diabetes E11.9 ; Encounter f or immunization Z23 ; Abnormal mammogram R92.8 ; Acquired hypothyroidism E03.9 ; High risk medication use Z79.899 ; Osteoarthritis M19.90 and Cigarette nicotine dependence without complication F17.210 [facility] [address] [facility] [id number] [address] [place] [address] Jul, [facility] [address] [facility] [id number] [address] [place] [address] Jun, Abnormal mammogram R92.8 [facility] [address] [facility] [id number] [address] [place] [address] Apr, [facility] [address] [facility] [id number] [address] [place] [address] Apr, [facility] [address] [facility] [id number] [address] [place] [address] Mar, [facility] [address] [facility] [id number] [address] [place] [address] Mar, Current use of 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 card tender ant 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 V58.61 [facility] [address] [id number] [address] [place] [address] Feb, [facility] [address] [facility] [id number] [address] [place] [address] Jan, [facility] [address] [id number] [address] [place] [address], [place] [address] December, [facility] [address] [id number] [address] [place] [address], [place] [address] Nov, [facility] [address] [id number] [address] [place] [address], [place] [address] Nov, [facility] [address] [id number] [address] [place] [address], [place] [address] Oct, [facility] [address] [id number] [address] [place] [address], [place] [address] Oct, [facility] [address] [id number] [address] [place] [address], [place] [address] Oct, [facility] [address] [id number] [address] [place] [address], [place] [address] Oct, [facility] [address] [id number] [address] [place] [address], [place] [address] Oct, [facility] [address] [id number] [address] [place] [address], [place] [address] Oct, [facility] [address] [id number] [address] [place] [address], [place] [address] Sep, [facility] [address] [id number] [address] [place] [address], [place] [address] Sep, [facility] [address] [id number] [address] [place] [address], [place] [address] Sep, [facility] [address] [id number] [address] [place] [address], [place] [address] Sep, [facility] [address] [id number] [address] [place] [address], [place] [address] Aug, [facility] [address] [id number] [address] [place] [address], [place] [address] Aug, [facility] [address] [id number] [address] [place] [address], [place] [address] Aug, [facility] [address] [id number] [address] [place] [address], [place] [address] 16 Aug, 2014 [facility] [address] [id number] [address] [place] [address], [place] [address] Aug, [facility] [address] [id number] [address] [place] [address], [place] [address] Aug, [facility] [address] [id number] [address] [place] [address], [place] [address] Jul, [facility] [address] [id number] [address] [place] [address], [place] [address] Jul, [facility] [address] [id number] [address] [place] [address], [place] [address] Jul, [facility] [address] [id number] [address] [place] [address], [place] [address] Jul, [facility] [address] [id number] [address] [place] [address], [place] [address] Jul, [facility] [address] [id number] [address] [place] [address], [place] [address] Jul, [facility] [address] [id number] [address] [place] [address], [place] [address] Jun, [facility] [address] [id number] [address] [place] [address], [place] [address] Jun, [facility] [address] [id number] [address] [place] [address], [place] [address] Jun, [facility] [address] [id number] [address] [place] [address], [place] [address] Jun, [facility] [address] [id number] [address] [place] [address], [place] [address] Jun, [facility] [address] [id number] [address] [place] [address], [place] [address] Jun, [facility] [address] [id number] [address] [place] [address], [place] [address] Jun, [facility] [address] [id number] [address] [place] [address], [place] [address] Jun, [facility] [address] [id number] [address] [place] [address], [place] [address] Jun, [facility] [address] [id number] [address] [place] [address], [place] [address] May, [facility] [address] [id number] [address] [place] [address], [place] [address] May, [facility] [address] [id number] [address] [place] [address], [place] [address] Apr, [facility] [address] [id number] [address] [place] [address], [place] [address] Apr, [facility] [address] [id number] [address] [place] [address], [place] [address] Apr, [facility] [address] [id number] [address] [place] [address], [place] [address] Apr, [facility] [address] [id number] [address] [place] [address], [place] [address] Apr, [facility] [address] [id number] [address] [place] [address], [place] [address] Apr, [facility] [address] [id number] [address] [place] [address], [place] [address] Apr, [facility] [address] [id number] [address] [place] [address], [place] [address] Apr, [facility] [address] [id number] [address] [place] [address], [place] [address] Apr, [facility] [address] [id number] [address] [place] [address], [place] [address] Apr, [facility] [address] [id number] [address] [place] [address], [place] [address] Mar, [facility] [address] [id number] [address] [place] [address], [place] [address] Mar, [facility] [address] [id number] [address] [place] [address], [place] [address] Mar, [facility] [address] [id number] [address] [place] [address], [place] [address] Mar, [facility] [address] [id number] [address] [place] [address], [place] [address] Mar, [facility] [address] [id number] [address] [place] [address], [place] [address] Mar, [facility] [address] [id number] [address] [place] [address], [place] [address] Feb, [facility] [address] [id number] [address] [place] [address], [place] [address] Feb, [facility] [address] [id number] [address] [place] [address], [place] [address] Feb, [facility] [address] [id number] [address] [place] [address], [place] [address] Feb, [facility] [address] [id number] [address] [place] [address], [place] [address] Jan, [facility] [address] [id number] [address] [place] [address], [place] [address] Jan, [facility] [address] [id number] [address] [place] [address], [place] [address] Jan, [facility] [address] [id number] [address] [place] [address], [place] [address] Jan, [facility] [address] [id number] [address] [place] [address], [place] [address] Oct, [facility] [address] [id number] [address] [place] [address], [place] [address] Oct, [facility] [address] [id number] [address] [place] [address], [place] [address] Sep, [facility] [address] [id number] [address] [place] [address], [place] [address] Sep, [facility] [address] [id number] [address] [place] [address], [place] [address] Sep, [facility] [address] [id number] [address] [place] [address], [place] [address] Sep, [facility] [address] [id number] [address] [place] [address], [place] [address] Aug, [facility] [address] [id number] [address] [place] [address], [place] [address] Aug, [facility] [address] [id number] [address] [place] [address], [place] [address] Aug, [facility] [address] [id number] [address] [place] [address], [place] [address] Aug, [facility] [address] [id number] [address] [place] [address], [place] [address] Jul, [facility] [address] [id number] [address] [place] [address], [place] [address] Jul, [facility] [address] [id number] [address] [place] [address], [place] [address] Jul, [facility] [address] [id number] [address] [place] [address], [place] [address] Jul, [facility] [address] [id number] [address] [place] [address], [place] [address] Jul, [facility] [address] [id number] [address] [place] [address], [place] [address] Jul, [facility] [address] [id number] [address] [place] [address], [place] [address] Jun, [facility] [address] [id number] [address] [place] [address], [place] [address] Jun, [facility] [address] [id number] [address] [place] [address], [place] [address] Jun, [facility] [address] [id number] [address] [place] [address], [place] [address] Jun, [facility] [address] [id number] [address] [place] [address], [place] [address] Jun, [facility] [address] [id number] [address] [place] [address], [place] [address] Jun, [facility] [address] [id number] [address] [place] [address], [place] [address] May, [facility] [address] [id number] [address] [place] [address], [place] [address] May, [facility] [address] [id number] [address] [place] [address], [place] [address] May, [facility] [address] [id number] [address] [place] [address], [place] [address] May, [facility] [address] [id number] [address] [place] [address], [place] [address] May, [facility] [address] [id number] [address] [place] [address], [place] [address] May, [facility] [address] [id number] [address] [place] [address], [place] [address] May, [facility] [address] [id number] [address] [place] [address], [place] [address] May, [facility] [address] [id number] [address] [place] [address], [place] [address] Apr, [facility] [address] [id number] [address] [place] [address], [place] [address] Apr, [facility] [address] [id number] [address] [place] [address], [place] [address] Mar, [facility] [address] [id number] [address] [place] [address], [place] [address] Mar, [facility] [address] [id number] [address] [place] [address], [place] [address] Mar, [facility] [address] [id number] [address] [place] [address], [place] [address] Mar, [facility] [address] [id number] [address] [place] [address], [place] [address] Feb, [facility] [address] [id number] [address] [place] [address], [place] [address] Jan, [facility] [address] [id number] [address] [place] [address], [place] [address] December, [facility] [address] [id number] [address] [place] [address], [place] [address] December, [facility] [address] [id number] [address] [place] [address], [place] [address] December, [facility] [address] [id number] [address] [place] [address], [place] [address] Nov, [facility] [address] [id number] [address] [place] [address], [place] [address] Nov, [facility] [address] [id number] [address] [place] [address], [place] [address] Sep, [facility] [address] [id number] [address] [place] [address], [place] [address] Sep, [facility] [address] [id number] [address] [place] [address], [place] [address] 14 Sep, 2012 [facility] [address] [id number] [address] [place] [address] [address] Sep, [facility] [address] [id number] [address] [place] [address], [place] [address] Aug, [facility] [address] [id number] [address] [place] [address], [place] [address] Aug, [facility] [address] [id number] [address] [place] [address], [place] [address] 08 Aug, 2012 [facility] [address] [id number] [address] [place] [address], [place] [address] Aug, [facility] [address] [id number] [address] [place] [address], [place] [address] Jul, [facility] [address] [id number] [address] [place] [address], [place] [address] Jul, [facility] [address] [id number] [address] [place] [address], [place] [address] Jul, [facility] [address] [id number] [address] [place] [address], [place] [address] Jul, [facility] [address] [id number] [address] [place] [address], [place] [address] Jun, [facility] [address] [id number] [address] [place] [address], [place] [address] Jun, [facility] [address] [id number] [address] [place] [address], [place] [address] Jun, [facility] [address] [id number] [address] [place] [address], [place] [address] Jun, [facility] [address] [id number] [address] [place] [address], [place] [address] May, [facility] [address] [id number] [address] [place] [address], [place] [address] May, [facility] [address] [id number] [address] [place] [address], [place] [address] May, [facility] [address] [id number] [address] [place] [address], [place] [address] May, [facility] [address] [id number] [address] [place] [address], [place] [address] May, [facility] [address] [id number] [address] [place] [address], [place] [address] Apr, [facility] [address] [id number] [address] [place] [address], [place] [address] 08 Apr, 2012 [facility] [address] [id number] [address] [place] [address], [place] [address] 07 Apr, 2012 [facility] [address] [id number] [address] [place] [address], [place] [address] 06 Apr, 2012 [facility] [address] [id number] [address] [place] [address], [place] [address] Mar, [facility] [address] [id number] [address] [place] [address], [place] [address] Mar, [facility] [address] [id number] [address] [place] [address], [place] [address] Feb, [facility] [address] [id number] [address] [place] [address], [place] [address] Feb, [facility] [address] [id number] [address] [place] [address], [place] [address] Feb, [facility] [address] [id number] [address] [place] [address], [place] [address] Jan, [facility] [address] [id number] [address] [place] [address], [place] [address] Jan, [facility] [address] [id number] [address] [place] [address], [place] [address] December, [facility] [address] [id number] [address] [place] [address], [place] [address] December, [facility] [address] [id number] [address] [place] [address], [place] [address] Nov, [facility] [address] [id number] [address] [place] [address], [place] [address] Oct, [facility] [address] [id number] [address] [place] [address], [place] [address] Oct, [facility] [address] [id number] [address] [place] [address], [place] [address] Sep, [facility] [address] [id number] [address] [place] [address], [place] [address] Sep, [facility] [address] [id number] [address] [place] [address], [place] [address] Aug, [facility] [address] [id number] [address] [place] [address], [place] [address] Aug, [facility] [address] [id number] [address] [place] [address], [place] [address] Jul, [facility] [address] [id number] [address] [place] [address], [place] [address] Jul, [facility] [address] [id number] [address] [place] [address], [place] [address] Jul, [facility] [address] [id number] [address] [place] [address], [place] [address] Jun, [facility] [address] [id number] [address] [place] [address], [place] [address] Jun, [facility] [address] [id number] [address] [place] [address], [place] [address] May, [facility] [address] [id number] [address] [place] [address], [place] [address] May, [facility] [address] [id number] [address] [place] [address], [place] [address] May, [facility] [address] [id number] [address] [place] [address], [place] [address] Jul, [facility] [address] [id number] [address] [place] [address], [place] [address] Jul, [facility] [address] [id number] [address] [place] [address], [place] [address] 15 Jun, 2010 [facility] [address] [id number] [address] [place] [address], [place] [address] May, [facility] [address] [id number] [address] [place] [address] May, [facility] [address] [id number] [address] [place] [address] Aug, [facility] [address] [id number] [address] [place] [address] Jul, [facility] [address] [id number] [address] [place] [address] Jun, [facility] [address] [id number] [address] [place] [address] Jun, [facility] [address] [id number] [address] [place] [address] Jun, [facility] [address] [id number] [address] [place] [address] Jun, [facility] [address] [id number] [address] [place] [address] Jun, [facility] [address] [id number] [address] [place] [address] May, [facility] [address] [id number] [address] [place] [address] Sep, IMMUNIZATIONS No Known Immunizations SOCIAL HISTORY Never Assessed REASON FOR VISIT Appointment/LVM PLAN OF CARE VITAL SIGNS MEDICATIONS Unknown [...]
--- OUTSIDE RECORDS SUMMARY | 2020-01-28 14:43 | XMS REPORT ---
Author Author Katarina RODRIGUEZ Organization [facility] Address [address] [place] [address] Care Team Providers Care Insurance Examiner Name Role Phone GEORGINA RODRIGUEZ Unavailable PROBLEMS Type Condition ICD9-CM Code [id number] Code Onset Dates Condition S tatus SNOMED Code Problem Encounter for immunization Z23 Act essie 463204221 Problem Urinary incontinence, unspecified type R32 Active 555385549 Problem History of cataract surgery Z98.49 Ac tive 218212702 Problem Chronic atrial fibrillation I48.2 Ac tive 599595903 Problem Essential hypertension I10 Active 24933846 Problem Morbid obesity, unspecified obesity type E66.01 Active 759847932 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.01 Active 349685201 Problem Other urinary incontinence N39.498 Act essie 261231298 Problem Irregular heart beats I49.9 Active 503423638 Problem Eye exam normal Z01.00 Active 2438 14321 Problem Cigarette nicotine dependence without complication F17.210 Active 57514341 Problem Acquired hypothyroidism E03.9 Active 091566012 Problem Abnormal mammogram R92.8 Active 1 78624670 Problem High risk medication use Z79.899 Activ e 377679880 Problem Osteoarthritis M19.90 Active 75267 5006 Problem Diabetes E11.9 Active 533393118 ALLERGIES No Known Allergies SOCIAL HISTORY Never Assessed PLAN OF CARE Activity Details Follow Up 2 Months Reason:Atrial fib VITAL SIGNS Height 64 in 2016-10-09 Weight 261 lbs 2016-10-09 Temperature 97.7 degrees Fahrenheit 2016-10-09 Heart Rate 88 bpm 2016-10-09 Respiratory Rate 18 2016-10-09 BMI 44.80 kg/m2 2016-10-09 Blood pressure systolic 110 mmHg 2016-10-09 Blood pressure diastolic 78 mmHg 2016-10-09 MEDICATIONS Medication Instructions Dosage Frequency Start Date End Date Duration S tatus Potassium Chloride Faiza ER 10 MEQ Orally Once a day 1 tablet 24h Active Walker N/A as directed Jul, Acti ve Lipitor 20 MG Orally Once a day 1 tablet 24h 90 days Active Ventolin HFA 108 (90 Base) MCG/ACT Inhalation every 4 hrs 2 puffs a s needed 4h Active Warfarin Sodium 5 MG Orally Once a day 1 tablet 24h 30 days Active Lisinopril 40 TAKE ONE TABLET BY MOUTH DAILY 90 Active Amlodipine Besylate 5 MG Orally Once a day 1 tablet 24h Active Januvia 100 TAKE ONE TABLET BY MOUTH DAILY 30 Active Levothyroxine Sodium 175 MCG Orally Once a day 1 tablet on an empty stomach in the morning 24h 90 Active Furosemide 40 TAKE ONE TABLET BY MOUTH DAILY 30 Active Nexium 40 mg take 1 capsule (40 mg) by oral route once daily Oct, Active Toviaz 8 MG Orally Once a day 1 tablet 24h Aug, Active Tramadol HCl 50 mg Orally 2 times a day 2 tablets 12h Jul, 28 days Active RESULTS Name Result Date Reference Range A1C (IN HOUSE) 2016-10-09 A1C IN HOUSE 6.1 4.3 - 5.6 % Previous A1c 6.5 Lot [id number] Exp date 06/2018 INR (IN HOUSE) 2016-10-09 INR 2.5 1.10 - 3.30 PREVIOUS INR 2.7 CURRENT COUMADIN DOSE 7.5 MWF and 5mg other days NEW COUMADIN DOSE Lot # Exp date PROCEDURES Procedure Date Ordered Result Body Site PROTHROMBIN TIME October 09, 2016 GLYCATED HEMOGLOBIN TEST October 09, 2016 [facility] VISIT ESTABLISHED PATIENT October 09, 2016 IMMUNIZATIONS No Known Immunizations MEDICAL (GENERAL) HISTORY Type Description Date Medical History type 2 diabetes Medical History hypertension Medical History asthma/COPD Medical History arthritis Medical History hypothyroidism Surgical History hysterectomy Surgical History tubal ligation Surgical History thyroidectomy Surgical History cholecystectomy Surgical History appendectomy Surgical History total knee replacments 2015 and 2016 Hospitalization History bronchitis 2011
--- OUTSIDE RECORDS SUMMARY | 2020-01-28 14:44 | XMS REPORT ---
Author Author Katarina RODRIGUEZ Organization [facility] [place] Address [address] [place] [address] Care Team Providers Care Vocational Rehabilitation Technician Name Role Phone GEORGINA RODRIGUEZ Unavailable PROBLEMS Type Condition ICD9-CM Code [id number] Code Onset Dates Condition S tatus SNOMED Code Problem Eye exam normal Z01.00 Active 2438 53022 Problem Cigarette nicotine dependence without complication F17.210 Active 76341576 Problem Abnormal mammogram R92.8 Active 1 86746207 Problem History of cataract surgery Z98.49 Ac tive 553170300 Problem Diabetes E11.9 Active 382230928 Problem High risk medication use Z79.899 Activ e 749629796 Problem Osteoarthritis M19.90 Active 94352 5006 Problem Encounter for immunization Z23 Act essie 727699990 Problem Acquired hypothyroidism E03.9 Active 487187099 Problem Need for prophylactic vaccination and inoculation, Influen za V04.81 Active 678392893 Problem Other screening mammogram V76.12 Acti ve 43721708 Problem Unspecified viral infection, in conditions classified elsewhere and of unspecified site 079.99 Active 89415350 Problem 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
--- OUTSIDE RECORDS SUMMARY | 2020-01-28 14:44 | XMS REPORT ---
Author Author Katarina RODRIGUEZ Organization [employer] Address Unknown Phone Unavailable Care Team Providers Care Shipping Assistant Name Role Phone GEORGINA RODRIGUEZ CP Unavailable Allergies, Adverse Reactions, Alerts Substance Reaction Event Type N.K.D.A. 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 Problem Abnormal mammogram R92.8 Active Problem Personal history of tobacco use, presenting hazards to health V15.82 Active Problem Diabetes E11.9 Active Assessment Cigarette nicotine dependence without complication F17 .210 Active Problem Encounter for immunization Z23 A ctive Problem History of cataract surgery Z98.49 Active Problem Osteoarthritis M19.90 Active Problem Cigarette nicotine dependence without complication F17 .210 Active Problem Acquired hypothyroidism E03.9 Acti ve Problem High risk medication use Z79.899 Act essie Assessment Acquired hypothyroidism E03.9 Acti ve Assessment Abnormal mammogram R92.8 Active Assessment Osteoarthritis M19.90 Active Assessment High risk medication use Z79.899 Act essie Problem Unspecified viral infection, in conditions classified elsewhere and of unspecified site 079.99 Active Problem Unspecified breast screening V76.10 Active Assessment Encounter for immunization Z23 A ctive Problem Need for prophylactic vaccination and inoculation, Inf luenza V04.81 Active Assessment Diabetes E11.9 Active Problem Other screening mammogram V76.12 Ac tive Medications Medication Code System Code Instructions Start Date End Date Status Dosage Levoxyl ND 42694390953 175 TAKE ONE TAB LET BY MOUTH DAILY ProAir HFA ND 46898343955 90 INHALE 2 PUFFS NEEDED EVERY 6 HOURS FOR BREATHING Walker NDC 0 N/A Folding walker with a seat and hand brakes Jul 30, 2015 as directed Warfarin Sodium ND 38760915229 5 TAKE ONE TABLET BY MOUTH DAILY Lipitor ND 02843741089 20 TAKE ONE TAB LET BY MOUTH DAILY Nexium [facility] [address]-85 40 mg October 23, 2014 sherri e 1 capsule (40 mg) by oral route once daily Atrovent HFA [facility] [address]-77 17 mcg/actuation 2 puff(s) by metered dose inhaler 4 times a day Apr 15, 2012 2 puffs by Inhalation route 4 times per day tramadol NDC 0 50 mg November 01, 2014 take 1 t ablet by Oral route every 8 hours as needed PRN pain Januvia [facility] 85648945598 100 TAKE ONE TAB LET BY MOUTH DAILY Potassium Chloride [facility] [address]-13 10 mEq Once a day January 08 2 1 tablet by Oral route 1 time per day Furosemide [facility] 55797034956 40 1 TAB orally once a day 1 tablet by Oral route 1 time per day Lisinopril [facility] 14503051867 40 TAKE ONE TABLET BY MOUTH DAILY Amlodipine Besylate [facility] 38563624776 5 TAKE ONE TABLET BY MOUTH DAILY Procedures Procedure Coding System Code Date MICROALBUMIN, SEMIQUANT CPT-4 99567 Jul 30, 2015 [facility] C[facility] NOBLL Jul 30, 2015 GLYCATED HEMOGLOBIN TEST CPT-4 89943 Jul 30, 2015 [facility] VISIT ESTABLISHED PATIENT CPT-4 G0467 D ec 2014 VENIPUNCT, ROUTINE* CPT-4 87919 Jul 30, 2015 Office Visit, Est Pt., Level 3 CPT-4 47807 D 2014 FLUARIX QUAD (3 & UP)-GSK-2014 CPT-4 52577 D 2014 PROTHROMBIN TIME CPT-4 19614 Jul 30, 2015 ADMN FLU VAC NO FEE SCHED SAME DAY CPT-4 G0008 Jul 30, 2015 SINGLE IMMUNIZATION ADMIN CPT-4 97888 Jul Vital Signs Date/Time: Jul 30, 2015 Temperature 96.5 F Weight 271.2 lbs Height 64 in BMI 46.55 Index Blood Pressure Diastolic 92 mmHg Blood Pressure Systolic 134 mmHg Cardiac Monitoring Heart Rate 96 bpm Results No Known Results Immunizations Vaccine Administration Date FLUARIX QUAD (3 & UP)-GSK-2014Jul 30, 2015 Summary Purpose [employer] Submission
--- OUTSIDE RECORDS SUMMARY | 2020-01-28 14:44 | XMS REPORT ---
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
--- OUTSIDE RECORDS SUMMARY | 2020-01-28 14:44 | XMS REPORT ---
Author Author Katarina RODRIGUEZ Organization [employer] Address Unknown Phone Unavailable Care Team Providers Care Balloon Tester Name Role Phone GEORGINA RODRIGUEZ CP Unavailable Allergies No Known Allergies Problems Problem Type Condition Code Onset Dates Condition Statu s Assessment Abnormal mammogram R92.8 Active Problem Personal history [...] and inoculation, Inf luenza V04.81 Active Medications No Known Medications Results No Known Results Summary Purpose [employer] Submission
--- OUTSIDE RECORDS SUMMARY | 2020-01-28 14:44 | XMS REPORT ---
Author Author Katarina RODRIGUEZ Organization [employer] Address Unknown Phone Unavailable Care Team Providers Care Device Engineer Name Role Phone GEORGINA RODRIGUEZ CP Unavailable [...] Other screening mammogram V76.12 Ac tive Medications No Known Medications Results No Known Results Summary Purpose [employer] Submission
--- OUTSIDE RECORDS SUMMARY | 2020-01-28 14:44 | XMS REPORT ---
Author Author Katarina RODRIGUEZ Organization [facility] Address [address] [place] [address] Care Team Providers Care Business Continuity Consultant Name Role Phone GEORGINA RODRIGUEZ Unavailable PROBLEMS Type Condition ICD9-CM Code [id number] Code Onset Dates Condition S tatus SNOMED Code Problem Encounter for immunization Z23 Act essie 294545947 Problem Urinary incontinence, unspecified type R32 Active 876053274 Problem History of cataract surgery Z98.49 Ac tive 303365611 Problem Chronic atrial fibrillation I48.2 Ac tive 187986736 Problem Essential hypertension I10 Active 71240278 Problem Morbid obesity, unspecified obesity type E66.01 Active 175167397 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 Active 010828367 Problem Other urinary incontinence N39.498 Act essie 476038422 Problem Irregular heart beats I49.9 Active 933613272 Problem Eye exam normal Z01.00 Active 2438 57941 Problem Cigarette nicotine dependence without complication F17.210 Active 71782240 Problem Acquired hypothyroidism E03.9 Active 912543238 Problem Abnormal mammogram R92.8 Active 1 44044017 Problem High risk medication use Z79.899 Activ e 021665608 Problem Osteoarthritis M19.90 Active 70324 5006 Problem Diabetes E11.9 Active 886890183 ALLERGIES No Information SOCIAL HISTORY Never Assessed PLAN OF CARE VITAL SIGNS MEDICATIONS Medication Instructions Dosage Frequency Start Date End Date Duration S tatus Tramadol HCl 50 MG Orally 2 times a day 2 tablets 12h 22 Jul, 2016 28 days Active RESULTS No Results PROCEDURES No Known procedures IMMUNIZATIONS No Known Immunizations MEDICAL (GENERAL) HISTORY Type Description Date Medical History type 2 diabetes Medical History hypertension Medical History asthma/COPD Medical History arthritis Medical History hypothyroidism Surgical History hysterectomy Surgical History tubal ligation Surgical History thyroidectomy Surgical History cholecystectomy Surgical History appendectomy Surgical History total knee replacments 2015 and 2017 Hospitalization History bronchitis 2011
--- OUTSIDE RECORDS SUMMARY | 2020-01-28 14:44 | XMS REPORT ---
Author Author Katarina RODRIGUEZ Organization [employer] Address Unknown Phone Unavailable Care Team Providers Care Aluminum Siding Mechanic Name Role Phone GEORGINA RODRIGUEZ CP Unavailable Allergies No Known Allergies Problems Problem Type Condition Code Onset Dates Condition Statu s Problem Personal history of tobacco use, presenting hazards to health V15.82 Active Problem Cigarette nicotine dependence without complication F17 .210 Active Problem Abnormal mammogram R92.8 Active Problem History of cataract surgery Z98.49 Active Problem Diabetes E11.9 Active Problem Urinary incontinence, unspecified type R32 Active Problem High risk medication use Z79.899 Act essie Problem Osteoarthritis M19.90 Active Problem Encounter for immunization Z23 A ctive Problem Acquired hypothyroidism E03.9 Acti ve Problem Unspecified breast screening V76.10 Active Problem Need for prophylactic vaccination and inoculation, Inf luenza V04.81 Active Assessment Osteoarthritis M19.90 Active Problem Other screening mammogram V76.12 Ac tive Problem Unspecified viral infection, in conditions classified elsewhere and of unspecified site 079.99 Active Problem 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
--- OUTSIDE RECORDS SUMMARY | 2020-01-28 14:44 | XMS REPORT ---
Author Author Katarina RODRIGUEZ Organization [facility] Address [address] [place] [address] Care Team Providers Care Supply Chain Associate Name Role Phone GEORGINA RODRIGUEZ Unavailable PROBLEMS Type Condition ICD9-CM Code LIN54-PL Code Onset Dates Condition S tatus SNOMED Code Problem Encounter for immunization Z23 Act essie 517783890 Problem Urinary incontinence, unspecified type R32 Active 166221598 Problem History of cataract surgery Z98.49 Ac tive 612019500 Problem Chronic atrial fibrillation I48.2 Ac tive 921393811 Problem Essential hypertension I10 Active 95893290 Problem Morbid obesity, unspecified obesity type E66.01 Active 865775329 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 Active 920777191 Problem Other urinary incontinence N39.498 Act essie 222263884 Problem Irregular heart beats I49.9 Active 614206867 Problem Eye exam normal Z01.00 Active 2438 81070 Problem Cigarette nicotine dependence without complication F17.210 Active 20065428 Problem Acquired hypothyroidism E03.9 Active 788250853 Problem Abnormal mammogram R92.8 Active 1 38236161 Problem High risk medication use Z79.899 Activ e 460030706 Problem Osteoarthritis M19.90 Active 92661 5006 Problem Diabetes E11.9 Active 132154200 ALLERGIES No Information SOCIAL HISTORY Never Assessed PLAN OF CARE VITAL SIGNS MEDICATIONS Medication Instructions Dosage Frequency Start Date End Date Duration S tatus Tramadol HCl 50 mg Orally 2 times a day 1 tablet 12h 22 Dec, 20 16 7 Jan, 2017 28 days Active RESULTS No Results PROCEDURES [...]
--- OUTSIDE RECORDS SUMMARY | 2020-01-28 14:44 | XMS REPORT ---
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 Problem Other screening mammogram V76.12 Ac tive Problem Personal history of tobacco use, presenting hazards to health V15.82 Active Problem Unspecified viral infection, in conditions classified elsewhere and of unspecified site 079.99 Active Problem Need for prophylactic vaccination and inoculation, Inf luenza V04.81 Active Problem Unspecified breast screening V76.10 Active Medications Medication Code System Code Instructions Start Date End Date Status Dosage tramadol NDC 0 50 mg November 01, 2014 take 1 t ablet by Oral route every 8 hours as needed PRN pain Results No Known Results Summary Purpose [employer] Submission
--- OUTSIDE RECORDS SUMMARY | 2020-01-28 14:44 | XMS REPORT ---
Author Author Katarina RODRIGUEZ Organization [facility] Address [address] [place] [address] Care Team Providers Care Multimedia Specialist Name Role Phone GEORGINA RODRIGUEZ Unavailable PROBLEMS Type Condition ICD9-CM Code UZA11-UI Code Onset Dates Condition S tatus SNOMED Code Problem Encounter for immunization Z23 Act essie 192134290 Problem Urinary incontinence, unspecified type R32 Active 434681771 Problem History of cataract surgery Z98.49 Ac tive 583311021 Problem Chronic atrial fibrillation I48.2 Ac tive 036208997 Problem Essential hypertension I10 Active 08295883 Problem Morbid obesity, unspecified obesity type E66.01 Active 405912694 Problem 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.01 Active 264203349 Problem Other urinary incontinence N39.498 Act essie 633375712 Problem Irregular heart beats I49.9 Active 789391274 Problem Eye exam normal Z01.00 Active 2438 80284 Problem Cigarette nicotine dependence without complication F17.210 Active 19861087 Problem Acquired hypothyroidism E03.9 Active 094928429 Problem Abnormal mammogram R92.8 Active 1 83980844 Problem High risk medication use Z79.899 Activ e 438262705 Problem Osteoarthritis M19.90 Active 43689 5006 Problem Diabetes E11.9 Active 454319804 ALLERGIES No Information ENCOUNTERS Encounter Location Date Diagnosis [facility] [address] [facility] [id number] [address] [place] [address] Nov, [facility] [address] [facility] [id number] [address] [place] [address] Oct, Osteoarthritis M19.90 [facility] [address] [facility] [id number] [address] [place] [address] Oct, exterminator termite (current) use of a nticoagulants Z79.01 [facility] [address] [facility] [id number] [address] [place] [address] Sep, Osteoarthritis M19.90 [facility] [address] [facility] [id number] [address] [place] [address] Sep, [facility] [address] [facility] [id number] [address] [place] [address] Aug, Osteoarthritis M19.90 [facility] [address] [facility] [id number] [address] [place] [address] Jul, Osteoarthritis M19.90 [facility] [address] [facility] [id number] [address] [place] [address] Jul, Osteoarthritis M19.90 [facility] [address] [facility] [id number] [address] [place] [address] Jun, Diabetes E11.9 ; Encounter f or immunization Z23 ; 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.01 ; Chronic atrial fibrillation I48.2 ; Osteoarthritis M19.90 ; Tobacco abuse Z72.0 and Bug bite, initial encounter W57.XXXA [facility] [address] [facility] [id number] [address] [place] [address] May, Osteoarthritis M19.90 [facility] [address] [facility] [id number] [address] [place] [address] Apr, Osteoarthritis M19.90 [facility] [address] [facility] [id number] [address] [place] [address] Mar, Chronic atrial fibrillation I48.2 [facility] [address] [id number] [address] [place] [address] Mar, [facility] [address] [facility] [id number] [address] [place] [address] Mar, Osteoarthritis M19.90 [facility] [address] [facility] [id number] [address] [place] [address] Mar, exterminator termite (current) use of a nticoagulants Z79.01 and Chronic atrial fibrillation I48.2 [facility] [address] [id number] [address] [place] [address] Mar, Chronic atrial fibrillation I48.2 and snf (current) use of anticoagulants Z79.01 [facility] [address] [id number] [address] [place] [address] Mar, snf (current) use of a nticoagulants Z79.01 [facility] [address] [id number] [address] [place] [address] Mar, snf (current) use of a nticoagulants Z79.01 [facility] [address] [id number] [address] [place] [address] Mar, Osteoarthritis M19.90 [facility] [address] [facility] [id number] [address] [place] [address] Feb, Encounter for screening mamm ogram for malignant neoplasm of breast Z12.31 [facility] [address] [id number] [address] [place] [address] Feb, Osteoarthritis M19.90 [facility] [address] [id number] [address] [place] [address] Jan, [facility] [address] [id number] [address] [place] [address] Jan, exterminator termite (current) use of a nticoagulants Z79.01 ; Diabetes E11.9 ; Osteoarthritis M19.90 and Breast cancer screening Z12.39 [facility] [address] [id number] [address] [place] [address] Jan, Osteoarthritis M19.90 [facility] [address] [id number] [address] [place] [address] Jan, Osteoarthritis M19.90 [facility] [address] [id number] [address] [place] [address] Jan, [facility] [address] [id number] [address] [place] [address] December, Osteoarthritis M19.90 [facility] [address] [id number] [address] [place] [address] December, Osteoarthritis M19.90 [facility] [address] [id number] [facility] [id number] Nov, [facility] [address] [id number] [address] [place] [address] Nov, [facility] [address] [id number] [address] [place] [address] Nov, [facility] [address] [id number] [address] [place] [address] Nov, Diabetes E11.9 [facility] [address] [id number] [address] [place] [address] Nov, [facility] [address] [id number] [address] [place] [address] Oct, Osteoarthritis M19.90 [facility] [address] [id number] [address] [place] [address] Oct, Osteoarthritis M19.90 ; 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.01 ; Diabetes E11.9 ; Cigarette nicotine dependence without complication F17.210 and Chronic atrial fibrillation I48.2 [facility] [address] [id number] [address] [place] [address] Aug, [facility] [address] [id number] [address] [place] [address] Aug, snf (current) use of a nticoagulants Z79.01 [facility] [address] [id number] [address] [place] [address] Aug, [facility] [address] [id number] [facility] [id number] Aug, [facility] [address] [id number] [address] [place] [address] Aug, [facility] [address] [facility] [id number] [address] [place] [address] Aug, [facility] [id number] [place] [id number] Aug, [employer] [address] [place] [id number] Aug Osteoarthritis M19.90 and Essential hypertension I10 [facility] [address] [place] [id number] [address] [place] [address] Aug, Other urinary incontinence N 39.498 [facility] [address] [facility] [id number] [address] [place] [address] Jul, Osteoarthritis M19.90 [facility] [address] [address] Jun, Diabetes E11.9 ; Encounter f or immunization Z23 ; Osteoarthritis M19.90 ; snf (current) use of anticoagulants Z79.01 ; Cigarette nicotine dependence without complication F17.210 ; Acquired hypothyroidism E03.9 ; Morbid obesity, unspecified obesity type E66.01 and Irregular heart beats I49.9 [facility] [address] [facility] [id number] [address] [place] [address] Jun, Osteoarthritis M19.90 [facility] [address] [facility] [id number] [address] [place] [address] May, Osteoarthritis M19.90 [facility] [address] [place] [id number] [address] [place] [address] May, Urinary incontinence, unspec ified type R32 [facility] [address] [facility] [id number] [address] [place] [address] May, [facility] [address] [facility] [id number] [address] [place] [address] Apr, Osteoarthritis M19.90 [facility] [address] [place] [id number] [address] [place] [address] Apr, snf (current) use of a nticoagulants Z79.01 [facility] [address] [id number] [address] [place] [address] Apr, [facility] [address] [facility] [id number] [address] [place] [address] Apr, Osteoarthritis M19.90 [facility] [address] [facility] [id number] [address] [place] [address] Mar, Diabetes E11.9 ; Hypothyroid ism, unspecified type E03.9 ; Osteoarthritis M19.90 ; High risk medication use Z79.899 ; Cigarette nicotine dependence without complication F17.210 and Morbid obesity, unspecified obesity type E66.01 [facility] [address] [facility] [id number] [address] [place] [address] Mar, Osteoarthritis M19.90 [place] [address] [facility] [id number] [address] [place] [address] December, Osteoarthritis M19.90 [facility] [address] [facility] [id number] [address] [place] [address] December, [facility] [address] [facility] [id number] [address] [place] [address] Oct, [facility] [address] [facility] [id number] [address] [place] [address] Oct, [facility] [address] [facility] [id number] [address] [place] [address] Aug, [facility] [address] [facility] [id number] [address] [place] [address] Jul, [facility] [address] [facility] [id number] [address] [place] [address] Jul, [place] [address] [place] [id number] [address] [place] [address] Jul, Diabetes E11.9 ; Encounter f or immunization Z23 ; Abnormal mammogram R92.8 ; Acquired hypothyroidism E03.9 ; High risk medication use Z79.899 ; Osteoarthritis M19.90 and Cigarette nicotine dependence without complication F17.210 [facility] [address] [id number] [address] [place] [address] Jul, [facility] [address] [id number] [address] [place] [address] Jun, Abnormal mammogram R92.8 [facility] [address] [id number] [address] [place] [address] Apr, [facility] [address] [id number] [address] [place] [address] Apr, [facility] [address] [id number] [address] [place] [address] Mar, [facility] [address] [id number] [address] [place] [address] Mar, Current use of group home ant 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 V58.61 [facility] [address] [id number] [address] [place] [address] Feb, [facility] [address] [id number] [address] [place] [address] Jan, [facility] [address] [id number] [address] [place] [address] December, [facility] [address] [id number] [address] [place] [address] Nov, [facility] [address] [id number] [address] [place] [address] Nov, [facility] [address] [id number] [address] [place] [address] Oct, [facility] [address] [id number] [address] [place] [address] Oct, [facility] [address] [id number] [address] [place] [address] Oct, [facility] [address] [id number] [address] [place] [address] Oct, [facility] [address] [id number] [address] [place] [address], [place] [address] Oct, [facility] [address] [id number] [address] [place] [address], [place] [address] Oct, [facility] [address] [id number] [address] [place] [address], [place] [address] Sep, [facility] [address] [id number] [address] [place] [address], [place] [address] Sep, [facility] [address] [id number] [address] [place] [address], [place] [address] Sep, [facility] [address] [id number] [address] [place] [address], [place] [address] Sep, [facility] [address] [id number] [address] [place] [address], [place] [address] Aug, [facility] [address] [id number] [address] [place] [address], [place] [address] Aug, [facility] [address] [id number] [address] [place] [address], [place] [address] Aug, [facility] [address] [id number] [address] [place] [address], [place] [address] Aug, [facility] [address] [id number] [address] [place] [address], [place] [address] Aug, [facility] [address] [id number] [address] [place] [address] Aug, [facility] [address] [id number] [address] [place] [address], [place] [address] Jul, [facility] [address] [id number] [address] [place] [address], [place] [address] Jul, [facility] [address] [id number] [address] [place] [address], [place] [address] Jul, [facility] [address] [id number] [address] [place] [address], [place] [address] Jul, [facility] [address] [id number] [address] [place] [address], [place] [address] Jul, [facility] [address] [id number] [address] [place] [address], [place] [address] Jul, [facility] [address] [id number] [address] [place] [address], [place] [address] Jun, [facility] [address] [id number] [address] [place] [address], [place] [address] Jun, [facility] [address] [id number] [address] [place] [address], [place] [address] Jun, [facility] [address] [id number] [address] [place] [address], [place] [address] Jun, [facility] [address] [id number] [address] [place] [address], [place] [address] Jun, [facility] [address] [id number] [address] [place] [address], [place] [address] Jun, [facility] [address] [id number] [address] [place] [address], [place] [address] Jun, [facility] [address] [id number] [address] [place] [address], [place] [address] Jun, [facility] [address] [id number] [address] [place] [address], [place] [address] Jun, [facility] [address] [id number] [address] [place] [address], [place] [address] May, [facility] [address] [id number] [address] [place] [address], [place] [address] May, [facility] [address] [id number] [address] [place] [address], [place] [address] Apr, [facility] [address] [id number] [address] [place] [address], [place] [address] Apr, [facility] [address] [id number] [facility] [place] [address] Apr, 2013 [facility] [address] [id number] [address] [place] [address], [place] [address] Apr, [facility] [address] [id number] [address] [place] [address], [place] [address] Apr, 2013 [facility] [address] [id number] [address] [place] [address], [place] [address] Apr, 2013 [facility] [address] [id number] [address] [place] [address], [place] [address] Apr, [facility] [address] [id number] [address] [place] [address], [place] [address] Apr, [facility] [address] [id number] [address] [place] [address], [place] [address] Apr, [facility] [address] [id number] [address] [place] [address], [place] [address] Apr, [facility] [address] [id number] [address] [place] [address], [place] [address] Mar, [facility] [address] [id number] [address] [place] [address], [place] [address] Mar, [facility] [address] [id number] [address] [place] [address], [place] [address] Mar, [facility] [address] [id number] [address] [place] [address], [place] [address] Mar, [facility] [address] [id number] [address] [place] [address], [place] [address] Mar, [facility] [address] [id number] [address] [place] [address], [place] [address] Mar, [facility] [address] [id number] [address] [place] [address], [place] [address] Feb, [facility] [address] [id number] [address] [place] [address], [place] [address] Feb, [facility] [address] [id number] [address] [place] [address], [place] [address] Feb, [facility] [address] [id number] [address] [place] [address], [place] [address] Feb, [facility] [address] [id number] [address] [place] [address], [place] [address] Jan, [facility] [address] [id number] [address] [place] [address], [place] [address] Jan, [facility] [address] [id number] [address] [place] [address], [place] [address] Jan, [facility] [address] [id number] [address] [place] [address], [place] [address] Jan, [facility] [address] [id number] [address] [place] [address], [place] [address] Oct, [facility] [address] [id number] [address] [place] [address], [place] [address] Oct, [facility] [address] [id number] [address] [place] [address], [place] [address] Sep, [facility] [address] [id number] [address] [place] [address], [place] [address] Sep, [facility] [address] [id number] [address] [place] [address], [place] [address] Sep, [facility] [address] [id number] [address] [place] [address], [place] [address] Sep, [facility] [address] [id number] [address] [place] [address], [place] [address] Aug, [facility] [address] [id number] [address] [place] [address], [place] [address] Aug, [facility] [address] [id number] [address] [place] [address], [place] [address] Aug, [facility] [address] [id number] [address] [place] [address], [place] [address] Aug, [facility] [address] [id number] [address] [place] [address], [place] [address] Jul, [facility] [address] [id number] [address] [place] [address], [place] [address] 30 Jul, 2013 [facility] [address] [id number] [address] [place] [address], [place] [address] Jul, [facility] [address] [id number] [address] [place] [address], [place] [address] Jul, [facility] [address] [id number] [address] [place] [address], [place] [address] Jul, [facility] [address] [id number] [address] [place] [address], [place] [address] Jul, [facility] [address] [id number] [address] [place] [address], [place] [address] Jun, [facility] [address] [id number] [address] [place] [address], [place] [address] Jun, [facility] [address] [id number] [address] [place] [address] Jun, [facility] [address] [id number] [address] [place] [address] Jun, [facility] [address] [id number] [address] [place] [address] Jun, [facility] [address] [id number] [address] [place] [address], [place] [address] Jun, [facility] [address] [id number] [address] [place] [address], [place] [address] May, [facility] [address] [id number] [address] [place] [address] May, [facility] [address] [id number] [address] [place] [address] May, [facility] [address] [id number] [address] [place] [address], [place] [address] May, [facility] [address] [id number] [address] [place] [address], [place] [address] May, [facility] [address] [id number] [address] [place] [address], [place] [address] May, [facility] [address] [id number] [address] [place] [address], [place] [address] May, [facility] [address] [id number] [address] [place] [address], [place] [address] May, [facility] [address] [id number] [address] [place] [address], [place] [address] Apr, [facility] [address] [id number] [address] [place] [address], [place] [address] Apr, [facility] [address] [id number] [address] [place] [address], [place] [address] Mar, [facility] [address] [id number] [address] [place] [address], [place] [address] Mar, [facility] [address] [id number] [address] [place] [address], [place] [address] Mar, [facility] [address] [id number] [address] [place] [address], [place] [address] Mar, [facility] [address] [id number] [address] [place] [address], [place] [address] Feb, [facility] [address] [id number] [address] [place] [address], [place] [address] Jan, [facility] [address] [id number] [address] [place] [address], [place] [address] December, [facility] [address] [id number] [address] [place] [address], [place] [address] December, [facility] [address] [id number] [address] [place] [address], [place] [address] December, [facility] [address] [id number] [address] [place] [address], [place] [address] Nov, [facility] [address] [id number] [address] [place] [address], [place] [address] Nov, [facility] [address] [id number] [address] [place] [address], [place] [address] Sep, [facility] [address] [id number] [address] [place] [address], [place] [address] Sep, [facility] [address] [id number] [address] [place] [address], [place] [address] Sep, [facility] [address] [id number] [address] [place] [address], [place] [address] Sep, [facility] [address] [id number] [address] [place] [address], [place] [address] Aug, [facility] [address] [id number] [address] [place] [address], [place] [address] Aug, [facility] [address] [id number] [address] [place] [address], [place] [address] Aug, [facility] [address] [id number] [address] [place] [address], [place] [address] Aug, [facility] [address] [id number] [address] [place] [address], [place] [address] Jul, [facility] [address] [id number] [address] [place] [address], [place] [address] Jul, [facility] [address] [id number] [address] [place] [address], [place] [address] Jul, [facility] [address] [id number] [address] [place] [address], [place] [address] Jul, [facility] [address] [id number] [address] [place] [address], [place] [address] Jun, [facility] [address] [id number] [address] [place] [address], [place] [address] Jun, [facility] [address] [id number] [address] [place] [address], [place] [address] Jun, [facility] [address] [id number] [address] [place] [address], [place] [address] Jun, [facility] [address] [id number] [address] [place] [address], [place] [address] May, [facility] [address] [id number] [address] [place] [address], [place] [address] May, [facility] [address] [id number] [address] [place] [address], [place] [address] May, [facility] [address] [id number] [address] [place] [address], [place] [address] May, [facility] [address] [id number] [address] [place] [address], [place] [address] May, [facility] [address] [id number] [address] [place] [address], [place] [address] 10 Apr, 2012 [facility] [address] [id number] [address] [place] [address], [place] [address] Apr, [facility] [address] [id number] [address] [place] [address], [place] [address] 07 Apr, 2012 [facility] [address] [id number] [address] [place] [address], [place] [address] 06 Apr, 2012 [facility] [address] [id number] [address] [place] [address], [place] [address] Mar, [facility] [address] [id number] [address] [place] [address], [place] [address] Mar, [facility] [address] [id number] [address] [place] [address], [place] [address] Feb, [facility] [address] [id number] [address] [place] [address], [place] [address] Feb, [facility] [address] [id number] [address] [place] [address], [place] [address] Feb, [facility] [address] [id number] [address] [place] [address], [place] [address] Jan, [facility] [address] [id number] [address] [place] [address], [place] [address] Jan, [facility] [address] [id number] [address] [place] [address], [place] [address] December, [facility] [address] [id number] [address] [place] [address], [place] [address] December, [facility] [address] [id number] [address] [place] [address], [place] [address] Nov, [facility] [address] [id number] [address] [place] [address], [place] [address] Oct, [facility] [address] [id number] [address] [place] [address], [place] [address] Oct, [facility] [address] [id number] [address] [place] [address], [place] [address] Sep, [facility] [address] [id number] [address] [place] [address], [place] [address] Sep, [facility] [address] [id number] [address] [place] [address], [place] [address] Aug, [facility] [address] [id number] [address] [place] [address], [place] [address] Aug, [facility] [address] [id number] [address] [place] [address], [place] [address] Jul, [facility] [address] [id number] [address] [place] [address], [place] [address] Jul, [facility] [address] [id number] [address] [place] [address], [place] [address] Jul, [facility] [address] [id number] [address] [place] [address], [place] [address] 07 Jun, 2011 [facility] [address] [id number] [address] [place] [address], [place] [address] 07 Jun, 2011 [facility] [address] [id number] [address] [place] [address], [place] [address] 13 May, 2011 [facility] [address] [id number] [address] [place] [address], [place] [address] 11 May, 2011 [facility] [address] [id number] [address] [place] [address], [place] [address] 11 May, 2011 [facility] [address] [id number] [address] [place] [address], [place] [address] 09 Jul, 2010 [facility] [address] [id number] [address] [place] [address], [place] [address] 08 Jul, 2010 [facility] [address] [id number] [address] [place] [address], [place] [address] 15 Jun, 2010 [facility] [address] [id number] [address] [place] [address], [place] [address] May, [facility] [address] [id number] [address] [place] [address] May, [facility] [address] [id number] [address] [place] [address], [place] [address] 14 Aug, 2009 [facility] [address] [id number] [address] [place] [address] Jul, [facility] [address] [id number] [address] [place] [address], [place] [address] Jun, [facility] [address] [id number] [address] [place] [address] Jun, [facility] [address] [id number] [address] [place] [address], [place] [address] Jun, [facility] [address] [id number] [address] [place] [address] Jun, [facility] [address] [facility] [id number] [address] [place] [address] Jun, [facility] [address] [facility] [id number] [address] [place] [address] May, [facility] [address] [facility] [id number] [address] [place] [address] Sep, IMMUNIZATIONS No Known Immunizations SOCIAL HISTORY Never Assessed REASON FOR VISIT INR PLAN OF CARE VITAL SIGNS MEDICATIONS Unknown [...]
--- OUTSIDE RECORDS SUMMARY | 2020-01-28 14:44 | XMS REPORT ---
Author Author Katarina RODRIGUEZ Organization [facility] Address [address] [place] [address] Care Team Providers Care Special Officer Name Role Phone GEORGINA RODRIGUEZ Unavailable PROBLEMS Type Condition ICD9-CM Code JCH28-CF Code Onset Dates Condition S tatus SNOMED Code Problem Encounter for immunization Z23 Act essie 721876715 Problem Urinary incontinence, unspecified type R32 Active 645825585 Problem History of cataract surgery Z98.49 Ac tive 004838464 Problem Chronic atrial fibrillation I48.2 Ac tive 522887551 Problem Essential hypertension I10 Active 95102245 Problem Morbid obesity, unspecified obesity type E66.01 Active 028979689 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 Active 618398466 Problem Other urinary incontinence N39.498 Act essie 168298782 Problem Irregular heart beats I49.9 Active 746887191 Problem Eye exam normal Z01.00 Active 2438 74280 Problem Cigarette nicotine dependence without complication F17.210 Active 55377967 Problem Acquired hypothyroidism E03.9 Active 732199801 Problem Abnormal mammogram R92.8 Active 1 59456032 Problem High risk medication use Z79.899 Activ e 907376360 Problem Osteoarthritis M19.90 Active 96556 5006 Problem Diabetes E11.9 Active 308435329 ALLERGIES No Information ENCOUNTERS Encounter Location Date Diagnosis [facility] [address] [facility] [id number] [address] [place] [address] Nov, [facility] [address] [facility] [id number] [address] [place] [address] Oct, Osteoarthritis M19.90 [facility] [address] [facility] [id number] [address] [place] [address] Oct, 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 Z79.01 [facility] [address] [facility] [id number] [address] [place] [address] Sep, Osteoarthritis M19.90 [facility] [address] [facility] [id number] [address] [place] [address] Sep, [facility] [address] [facility] [id number] [address] [place] [address] Aug, Osteoarthritis M19.90 [facility] [address] [facility] [id number] [address] [place] [address] Jul, Osteoarthritis M19.90 [facility] [address] [facility] [id number] [address] [place] [address] Jul, Osteoarthritis M19.90 [facility] [address] [facility] [id number] [address] [place] [address] Jun, Diabetes E11.9 ; Encounter f or immunization Z23 ; 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 ; Chronic atrial fibrillation I48.2 ; Osteoarthritis M19.90 ; Tobacco abuse Z72.0 and Bug bite, initial encounter W57.XXXA [facility] [address] [facility] [id number] [address] [place] [address] May, Osteoarthritis M19.90 [facility] [address] [facility] [id number] [address] [place] [address] Apr, Osteoarthritis M19.90 [facility] [address] [facility] [id number] [address] [place] [address] Mar, Chronic atrial fibrillation I48.2 [facility] [address] [id number] [address] [place] [address] Mar, [facility] [address] [facility] [id number] [address] [place] [address] Mar, Osteoarthritis M19.90 [facility] [address] [facility] [id number] [address] [place] [address] Mar, 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 Z79.01 and Chronic atrial fibrillation I48.2 [facility] [address] [id number] [address] [place] [address] Mar, Chronic atrial fibrillation I48.2 and correction (current) use of anticoagulants Z79.01 [facility] [address] [id number] [address] [place] [address] Mar, correction (current) use of a nticoagulants Z79.01 [facility] [address] [id number] [address] [place] [address] Mar, correction (current) use of a nticoagulants Z79.01 [facility] [address] [id number] [address] [place] [address] Mar, Osteoarthritis M19.90 [facility] [address] [facility] [id number] [address] [place] [address] Feb, Encounter for screening mamm ogram for malignant neoplasm of breast Z12.31 [facility] [address] [id number] [address] [place] [address] Feb, Osteoarthritis M19.90 [facility] [address] [id number] [address] [place] [address] Jan, [facility] [address] [id number] [address] [place] [address] Jan, 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90 [facility] [address] [id number] [address] [place] [address] December, Osteoarthritis M19.90 [facility] [place] [address] [id number] [facility] [place] [id number] Nov, [facility] [address] [id number] [address] [place] [address] Nov, [facility] [address] [id number] [address] [place] [address] Nov, [facility] [address] [id number] [address] [place] [address] Nov, Diabetes E11.9 [facility] [address] [id number] [address] [place] [address] Nov, [facility] [address] [id number] [address] [place] [address] Oct, Osteoarthritis M19.90 [facility] [address] [id number] [address] [place] [address] Oct, Osteoarthritis M19.90 ; 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 ; Diabetes E11.9 ; Cigarette nicotine dependence without complication F17.210 and Chronic atrial fibrillation I48.2 [facility] [address] [id number] [address] [place] [address] Aug, [facility] [address] [id number] [address] [place] [address] Aug, correction (current) use of a nticoagulants Z79.01 [facility] [address] [id number] [address] [place] [address] Aug, [facility] [place] [address] [id number] [facility] [id number] Aug, [facility] [address] [id number] [address] [place] [address] Aug, [facility] [address] [facility] [id number] [address] [place] [address] Aug, [facility] [place] [id number] [place] [address] [id number] Aug, [facility] [address] [place] [id number] Aug Osteoarthritis M19.90 and Essential hypertension I10 [facility] [address] [place] [id number] [address] [place] [address] Aug, Other urinary incontinence N 39.498 [facility] [address] [facility] [id number] [address] [place] [address] Jul, Osteoarthritis M19.90 [facility] [address] [address] Jun, Diabetes E11.9 ; Encounter f or immunization Z23 ; Osteoarthritis M19.90 ; correction (current) use of anticoagulants Z79.01 ; Cigarette nicotine dependence without complication F17.210 ; Acquired hypothyroidism E03.9 ; Morbid obesity, unspecified obesity type E66.01 and Irregular heart beats I49.9 [facility] [address] [facility] [id number] [address] [place] [address] Jun, Osteoarthritis M19.90 [facility] [address] [facility] [id number] [address] [place] [address] May, Osteoarthritis M19.90 [facility] [address] [place] [id number] [address] [place] [address] May, Urinary incontinence, unspec ified type R32 [facility] [address] [facility] [id number] [address] [place] [address] May, [facility] [address] [facility] [id number] [address] [place] [address] Apr, Osteoarthritis M19.90 [facility] [address] [place] [id number] [address] [place] [address] Apr, correction (current) use of a nticoagulants Z79.01 [facility] [address] [id number] [address] [place] [address] Apr, [facility] [address] [facility] [id number] [address] [place] [address] Apr, Osteoarthritis M19.90 [facility] [address] [facility] [id number] [address] [place] [address] Mar, Diabetes E11.9 ; Hypothyroid ism, unspecified type E03.9 ; Osteoarthritis M19.90 ; High risk medication use Z79.899 ; Cigarette nicotine dependence without complication F17.210 and Morbid obesity, unspecified obesity type E66.01 [facility] [address] [facility] [id number] [address] [place] [address] Mar, Osteoarthritis M19.90 [place] [address] [facility] [id number] [address] [place] [address] December, Osteoarthritis M19.90 [facility] [address] [facility] [id number] [address] [place] [address] December, [facility] [address] [facility] [id number] [address] [place] [address] Oct, [facility] [address] [facility] [id number] [address] [place] [address] Oct, [facility] [address] [facility] [id number] [address] [place] [address] Aug, [facility] [address] [facility] [id number] [address] [place] [address] Jul, [facility] [address] [facility] [id number] [address] [place] [address] Jul, [place] [address] [place] [id number] [address] [place] [address] Jul, Diabetes E11.9 ; Encounter f or immunization Z23 ; Abnormal mammogram R92.8 ; Acquired hypothyroidism E03.9 ; High risk medication use Z79.899 ; Osteoarthritis M19.90 and Cigarette nicotine dependence without complication F17.210 [facility] [address] [id number] [address] [place] [address] Jul, [facility] [address] [id number] [address] [place] [address] Jun, Abnormal mammogram R92.8 [facility] [address] [id number] [address] [place] [address] Apr, [facility] [address] [id number] [address] [place] [address] Apr, [facility] [address] [id number] [address] [place] [address] Mar, [facility] [address] [id number] [address] [place] [address] Mar, Current use of chcf ant 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 V58.61 [facility] [address] [id number] [address] [place] [address] Feb, [facility] [address] [id number] [address] [place] [address] Jan, [facility] [address] [id number] [address] [place] [address] December, [facility] [address] [id number] [address] [place] [address] Nov, [facility] [address] [id number] [address] [place] [address] Nov, [facility] [address] [id number] [address] [place] [address] Oct, [facility] [address] [id number] [address] [place] [address] Oct, [facility] [address] [id number] [address] [place] [address] Oct, [facility] [address] [id number] [address] [place] [address] Oct, [facility] [address] [id number] [address] [place] [address], [place] [address] Oct, [facility] [address] [id number] [address] [place] [address], [place] [address] Oct, [facility] [address] [id number] [address] [place] [address], [place] [address] Sep, [facility] [address] [id number] [address] [place] [address], [place] [address] Sep, [facility] [address] [id number] [address] [place] [address], [place] [address] Sep, [facility] [address] [id number] [address] [place] [address], [place] [address] Sep, [facility] [address] [id number] [address] [place] [address], [place] [address] Aug, [facility] [address] [id number] [address] [place] [address], [place] [address] Aug, [facility] [address] [id number] [address] [place] [address], [place] [address] Aug, [facility] [address] [id number] [address] [place] [address], [place] [address] Aug, [facility] [address] [id number] [address] [place] [address], [place] [address] Aug, [facility] [address] [id number] [address] [place] [address] Aug, [facility] [address] [id number] [address] [place] [address], [place] [address] Jul, [facility] [address] [id number] [address] [place] [address], [place] [address] Jul, [facility] [address] [id number] [address] [place] [address], [place] [address] Jul, [facility] [address] [id number] [address] [place] [address], [place] [address] Jul, [facility] [address] [id number] [address] [place] [address], [place] [address] Jul, [facility] [address] [id number] [address] [place] [address], [place] [address] Jul, [facility] [address] [id number] [address] [place] [address], [place] [address] Jun, [facility] [address] [id number] [address] [place] [address], [place] [address] Jun, [facility] [address] [id number] [address] [place] [address], [place] [address] Jun, [facility] [address] [id number] [address] [place] [address], [place] [address] Jun, [facility] [address] [id number] [address] [place] [address], [place] [address] Jun, [facility] [address] [id number] [address] [place] [address], [place] [address] Jun, [facility] [address] [id number] [address] [place] [address], [place] [address] Jun, [facility] [address] [id number] [address] [place] [address], [place] [address] Jun, [facility] [address] [id number] [address] [place] [address], [place] [address] Jun, [facility] [address] [id number] [address] [place] [address], [place] [address] May, [facility] [address] [id number] [address] [place] [address], [place] [address] May, [facility] [address] [id number] [address] [place] [address], [place] [address] Apr, [facility] [address] [id number] [address] [place] [address], [place] [address] Apr, [facility] [address] [id number] [facility] [place] [address] Apr, 2013 [facility] [address] [id number] [address] [place] [address], [place] [address] Apr, [facility] [address] [id number] [address] [place] [address], [place] [address] Apr, 2013 [facility] [address] [id number] [address] [place] [address], [place] [address] Apr, 2013 [facility] [address] [id number] [address] [place] [address], [place] [address] Apr, [facility] [address] [id number] [address] [place] [address], [place] [address] Apr, [facility] [address] [id number] [address] [place] [address], [place] [address] Apr, [facility] [address] [id number] [address] [place] [address], [place] [address] Apr, [facility] [address] [id number] [address] [place] [address], [place] [address] Mar, [facility] [address] [id number] [address] [place] [address], [place] [address] Mar, [facility] [address] [id number] [address] [place] [address], [place] [address] Mar, [facility] [address] [id number] [address] [place] [address], [place] [address] Mar, [facility] [address] [id number] [address] [place] [address], [place] [address] Mar, [facility] [address] [id number] [address] [place] [address], [place] [address] Mar, [facility] [address] [id number] [address] [place] [address], [place] [address] Feb, [facility] [address] [id number] [address] [place] [address], [place] [address] Feb, [facility] [address] [id number] [address] [place] [address], [place] [address] Feb, [facility] [address] [id number] [address] [place] [address], [place] [address] Feb, [facility] [address] [id number] [address] [place] [address], [place] [address] Jan, [facility] [address] [id number] [address] [place] [address], [place] [address] Jan, [facility] [address] [id number] [address] [place] [address], [place] [address] Jan, [facility] [address] [id number] [address] [place] [address], [place] [address] Jan, [facility] [address] [id number] [address] [place] [address], [place] [address] Oct, [facility] [address] [id number] [address] [place] [address], [place] [address] Oct, [facility] [address] [id number] [address] [place] [address], [place] [address] Sep, [facility] [address] [id number] [address] [place] [address], [place] [address] Sep, [facility] [address] [id number] [address] [place] [address], [place] [address] Sep, [facility] [address] [id number] [address] [place] [address], [place] [address] Sep, [facility] [address] [id number] [address] [place] [address], [place] [address] Aug, [facility] [address] [id number] [address] [place] [address], [place] [address] Aug, [facility] [address] [id number] [address] [place] [address], [place] [address] Aug, [facility] [address] [id number] [address] [place] [address], [place] [address] Aug, [facility] [address] [id number] [address] [place] [address], [place] [address] Jul, [facility] [address] [id number] [address] [place] [address], [place] [address] 30 Jul, 2013 [facility] [address] [id number] [address] [place] [address], [place] [address] Jul, [facility] [address] [id number] [address] [place] [address], [place] [address] Jul, [facility] [address] [id number] [address] [place] [address], [place] [address] Jul, [facility] [address] [id number] [address] [place] [address], [place] [address] Jul, [facility] [address] [id number] [address] [place] [address], [place] [address] Jun, [facility] [address] [id number] [address] [place] [address], [place] [address] Jun, [facility] [address] [id number] [address] [place] [address] Jun, [facility] [address] [id number] [address] [place] [address] Jun, [facility] [address] [id number] [address] [place] [address] Jun, [facility] [address] [id number] [address] [place] [address], [place] [address] Jun, [facility] [address] [id number] [address] [place] [address], [place] [address] May, [facility] [address] [id number] [address] [place] [address] May, [facility] [address] [id number] [address] [place] [address] May, [facility] [address] [id number] [address] [place] [address], [place] [address] May, [facility] [address] [id number] [address] [place] [address], [place] [address] May, [facility] [address] [id number] [address] [place] [address], [place] [address] May, [facility] [address] [id number] [address] [place] [address], [place] [address] May, [facility] [address] [id number] [address] [place] [address], [place] [address] May, [facility] [address] [id number] [address] [place] [address], [place] [address] Apr, [facility] [address] [id number] [address] [place] [address], [place] [address] Apr, [facility] [address] [id number] [address] [place] [address], [place] [address] Mar, [facility] [address] [id number] [address] [place] [address], [place] [address] Mar, [facility] [address] [id number] [address] [place] [address], [place] [address] Mar, [facility] [address] [id number] [address] [place] [address], [place] [address] Mar, [facility] [address] [id number] [address] [place] [address], [place] [address] Feb, [facility] [address] [id number] [address] [place] [address], [place] [address] Jan, [facility] [address] [id number] [address] [place] [address], [place] [address] December, [facility] [address] [id number] [address] [place] [address], [place] [address] December, [facility] [address] [id number] [address] [place] [address], [place] [address] December, [facility] [address] [id number] [address] [place] [address], [place] [address] Nov, [facility] [address] [id number] [address] [place] [address], [place] [address] Nov, [facility] [address] [id number] [address] [place] [address], [place] [address] Sep, [facility] [address] [id number] [address] [place] [address], [place] [address] Sep, [facility] [address] [address] [id number] [address] [place] [address], [place] [address] Sep, [facility] [address] [id number] [address] [place] [address], [place] [address] Sep, [facility] [address] [id number] [address] [place] [address], [place] [address] Aug, [facility] [address] [id number] [address] [place] [address], [place] [address] Aug, [facility] [address] [id number] [address] [place] [address], [place] [address] Aug, [facility] [address] [id number] [address] [place] [address], [place] [address] Aug, [facility] [address] [id number] [address] [place] [address], [place] [address] Jul, [facility] [address] [id number] [address] [place] [address], [place] [address] Jul, [facility] [address] [id number] [address] [place] [address], [place] [address] Jul, [facility] [address] [id number] [address] [place] [address], [place] [address] Jul, [facility] [address] [id number] [address] [place] [address], [place] [address] Jun, [facility] [address] [id number] [address] [place] [address], [place] [address] Jun, [facility] [address] [id number] [address] [place] [address], [place] [address] Jun, [facility] [address] [id number] [address] [place] [address], [place] [address] Jun, [facility] [address] [id number] [address] [place] [address], [place] [address] May, [facility] [address] [id number] [address] [place] [address], [place] [address] May, [facility] [address] [id number] [address] [place] [address], [place] [address] May, [facility] [address] [id number] [address] [place] [address], [place] [address] May, [facility] [address] [id number] [address] [place] [address], [place] [address] May, [facility] [address] [id number] [address] [place] [address], [place] [address] 10 Apr, 2012 [facility] [address] [id number] [address] [place] [address], [place] [address] Apr, [facility] [address] [id number] [address] [place] [address], [place] [address] 07 Apr, 2012 [facility] [address] [id number] [address] [place] [address], [place] [address] 06 Apr, 2012 [facility] [address] [id number] [address] [place] [address], [place] [address] Mar, [facility] [address] [id number] [address] [place] [address], [place] [address] Mar, [facility] [address] [id number] [address] [place] [address], [place] [address] Feb, [facility] [address] [id number] [address] [place] [address], [place] [address] Feb, [facility] [address] [id number] [address] [place] [address], [place] [address] Feb, [facility] [address] [id number] [address] [place] [address], [place] [address] Jan, [facility] [address] [id number] [address] [place] [address], [place] [address] Jan, [facility] [address] [id number] [address] [place] [address], [place] [address] December, [facility] [address] [id number] [address] [place] [address], [place] [address] December, [facility] [address] [id number] [address] [place] [address], [place] [address] Nov, [facility] [address] [id number] [address] [place] [address], [place] [address] Oct, [facility] [address] [id number] [address] [place] [address], [place] [address] Oct, [facility] [address] [id number] [address] [place] [address], [place] [address] Sep, [facility] [address] [id number] [address] [place] [address], [place] [address] Sep, [facility] [address] [id number] [address] [place] [address], [place] [address] Aug, [facility] [address] [id number] [address] [place] [address], [place] [address] Aug, [facility] [address] [id number] [address] [place] [address], [place] [address] Jul, [facility] [address] [id number] [address] [place] [address], [place] [address] Jul, [facility] [address] [id number] [address] [place] [address], [place] [address] Jul, [facility] [address] [id number] [address] [place] [address], [place] [address] 07 Jun, 2011 [facility] [address] [id number] [address] [place] [address], [place] [address] 07 Jun, 2011 [facility] [address] [id number] [address] [place] [address], [place] [address] 13 May, 2011 [facility] [address] [id number] [address] [place] [address], [place] [address] 11 May, 2011 [facility] [address] [id number] [address] [place] [address], [place] [address] 11 May, 2011 [facility] [address] [id number] [address] [place] [address], [place] [address] 09 Jul, 2010 [facility] [address] [id number] [address] [place] [address], [place] [address] 08 Jul, 2010 [facility] [address] [id number] [address] [place] [address], [place] [address] 15 Jun, 2010 [facility] [address] [id number] [address] [place] [address], [place] [address] May, [facility] [address] [id number] [address] [place] [address] May, [facility] [address] [id number] [address] [place] [address], [place] [address] 14 Aug, 2009 [facility] [address] [id number] [address] [place] [address] Jul, [facility] [address] [id number] [address] [place] [address], [place] [address] Jun, [facility] [address] [id number] [address] [place] [address] Jun, [facility] [address] [id number] [address] [place] [address], [place] [address] Jun, [facility] [address] [id number] [address] [place] [address] Jun, [facility] [address] [facility] [id number] [address] [place] [address] Jun, [facility] [address] [facility] [id number] [address] [place] [address] May, [facility] [address] [facility] [id number] [address] [place] [address] Sep, IMMUNIZATIONS No Known Immunizations SOCIAL HISTORY Never Assessed REASON FOR VISIT Refill request PLAN OF CARE VITAL SIGNS MEDICATIONS Medication Instructions Dosage Frequency Start Date End Date Duration S tatus Warfarin Sodium 5 MG Orally Once a day 1.5 tablets 24h 30 days Active Furosemide 40 mg Orally Once a day 1 tablet 24h 30 d ays Active Nexium 40 MG Orally Once a day 1 capsule 24h Oct, 90 days Active Amlodipine Besylate 5 MG Orally Once a day 1 tablet 24h 90 days Active Januvia 100 MG Orally Once a day 1 tablet 24h 90 day s Active Potassium Chloride Faiza ER 10 MEQ Orally Once a day 1 tablet 24h 90 days Active Levothyroxine Sodium 175 MCG Orally Once a day 1 tablet on an empty stomach in the morning 24h 90 days Active Lisinopril 40 MG Orally Once a day 1 tablet 24h 90 d ays Active Lipitor 20 MG Orally Once a day 1 tablet 24h 90 days Active RESULTS No Results PROCEDURES No [...]
--- OUTSIDE RECORDS SUMMARY | 2020-01-28 14:44 | XMS REPORT ---
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 Phone GEORGINA RODRIGUEZ Unavailable PROBLEMS Type Condition ICD9-CM Code WWS04-TO Code Onset Dates Condition S tatus SNOMED Code Problem Encounter for immunization Z23 Act essie 781350032 Problem Urinary incontinence, unspecified type R32 Active 617016285 Problem History of cataract surgery Z98.49 Ac tive 379550453 Problem Chronic atrial fibrillation I48.2 Ac tive 063499242 Problem Essential hypertension I10 Active 65045020 Problem Morbid obesity, unspecified obesity type E66.01 Active 815228933 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
--- OUTSIDE RECORDS SUMMARY | 2020-01-28 14:45 | XMS REPORT ---
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 Phone GEORGINA RODRIGUEZ Unavailable PROBLEMS Type Condition ICD9-CM Code TGW96-XL Code Onset Dates Condition S tatus SNOMED Code Problem Encounter for immunization Z23 Act essie 487421658 Problem Urinary incontinence, unspecified type R32 Active 443834179 Problem History of cataract surgery Z98.49 Ac tive 890091998 Problem Chronic atrial fibrillation I48.2 Ac tive 139833434 Problem Essential hypertension I10 Active 46121704 Problem Morbid obesity, unspecified obesity type E66.01 Active 449960207 Problem 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 Active 348172137 Problem Other urinary incontinence N39.498 Act essie 996831369 Problem Irregular heart beats I49.9 Active 135781776 Problem Eye exam normal Z01.00 Active 2438 69760 Problem Cigarette nicotine dependence without complication F17.210 Active 70744624 Problem Acquired hypothyroidism E03.9 Active 762902039 Problem Abnormal mammogram R92.8 Active 1 01769903 Problem High risk medication use Z79.899 Activ e 065896545 Problem Osteoarthritis M19.90 Active 93322 5006 Problem Diabetes E11.9 Active 062199332 ALLERGIES Unknown Allergies SOCIAL HISTORY No smoking Hx information available PLAN OF CARE VITAL SIGNS MEDICATIONS Unknown Medications RESULTS No Results PROCEDURES No Known procedures IMMUNIZATIONS No Known Immunizations
--- OUTSIDE RECORDS SUMMARY | 2020-01-28 14:45 | XMS REPORT ---
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
--- OUTSIDE RECORDS SUMMARY | 2020-01-28 14:45 | XMS REPORT ---
Author Author Katarina RODRIGUEZ Organization [facility] Address [address] [place] [address] Care Team Providers Care Senior Regulatory Affairs Specialist Name Role Phone GEORGINA RODRIGUEZ Unavailable PROBLEMS Type Condition ICD9-CM Code HDL13-XJ Code Onset Dates Condition S tatus SNOMED Code Problem Encounter for immunization Z23 Act essie 648802686 Problem Urinary incontinence, unspecified type R32 Active 757438924 Problem History of cataract surgery Z98.49 Ac tive 718567041 Problem Chronic atrial fibrillation I48.2 Ac tive 309368135 Problem Essential hypertension I10 Active 56917594 Problem Morbid obesity, unspecified obesity type E66.01 Active 700012104 Problem meterman (current) use of anticoagulants Z79.01 Active 414651184 Problem Other urinary incontinence N39.498 Act essie 764316299 Problem Irregular heart beats I49.9 Active 893181265 Problem Eye exam normal Z01.00 Active 2438 42871 Problem Cigarette nicotine dependence without complication F17.210 Active 23442153 Problem Acquired hypothyroidism E03.9 Active 408488982 Problem Abnormal mammogram R92.8 Active 1 95821783 Problem High risk medication use Z79.899 Activ e 563221452 Problem Osteoarthritis M19.90 Active 20534 5006 Problem Diabetes E11.9 Active 750315209 ALLERGIES No Information ENCOUNTERS Encounter Location Date Diagnosis [facility] [address] [facility] [id number] [address] [place] [address] Jan, Osteoarthritis M19.90 [facility] [address] [facility] [id number] [address] [place] [address] December, [facility] [address] [facility] [id number] [address] [place] [address] December, Osteoarthritis M19.90 [facility] [address] [facility] [id number] [address] [place] [address] Nov, Diabetes E11.9 ; nursing home ( current) use of anticoagulants Z79.01 ; Acquired hypothyroidism E03.9 ; Cigarette nicotine dependence without complication F17.210 ; Osteoarthritis M19.90 ; BMI 45.0-49.9, adult Z68.42 and Chronic atrial fibrillation I48.2 [facility] [id number] [place] [address] Nov, Osteoarthritis M19.90 [facility] [address] [address] Oct, Osteoarthritis M19.90 [place] [address] [address] Oct, nursing home (current) use of a nticoagulants Z79.01 [facility] [address] [place] [address] Sep, Osteoarthritis M19.90 [place] [id number] [address] Sep, [place] [address] [address] Aug, Osteoarthritis M19.90 [facility] [address] [address] Jul, Osteoarthritis M19.90 [facility] [address] [place] [id number] [address] [place] [address] Jul, Osteoarthritis M19.90 [place] [address] [address] Jun, Diabetes E11.9 ; Encounter f or immunization Z23 ; nursing home (current) use of anticoagulants Z79.01 ; Chronic atrial fibrillation I48.2 ; Osteoarthritis M19.90 ; Tobacco abuse Z72.0 and Bug bite, initial encounter W57.XXXA [place] [address] [address] May, Osteoarthritis M19.90 [facility] [address] [id number] [address] [place] [address] Apr, Osteoarthritis M19.90 [facility] [address] [id number] [address] [place] [address] Mar, Chronic atrial fibrillation I48.2 [facility] [address] [id number] [address] [place] [address] Mar, [facility] [address] [id number] [address] [place] [address] Mar, Osteoarthritis M19.90 [facility] [address] [id number] [address] [place] [address] Mar, meterman (current) use of a nticoagulants Z79.01 and Chronic atrial fibrillation I48.2 [facility] [address] [id number] [address] [place] [address] Mar, Chronic atrial fibrillation I48.2 and meterman (current) use of anticoagulants Z79.01 [facility] [address] [id number] [address] [place] [address] Mar, meterman (current) use of a nticoagulants Z79.01 [facility] [address] [id number] [address] [place] [address] Mar, meterman (current) use of a nticoagulants Z79.01 [facility] [address] [id number] [address] [place] [address] Mar, Osteoarthritis M19.90 [facility] [address] [id number] [address] [place] [address] Feb, Encounter for screening mamm ogram for malignant neoplasm of breast Z12.31 [facility] [address] [id number] [address] [place] [address] Feb, Osteoarthritis M19.90 [facility] [address] [id number] [address] [place] [address] Jan, [facility] [address] [id number] [address] [place] [address] Jan, meterman (current) use of a nticoagulants Z79.01 ; Diabetes E11.9 ; Osteoarthritis M19.90 and Breast cancer screening Z12.39 [facility] [address] [id number] [address] [place] [address] Jan, Osteoarthritis M19.90 [facility] [address] [id number] [address] [place] [address] Jan, Osteoarthritis M19.90 [facility] [address] [id number] [address] [place] [address] Jan, [facility] [address] [id number] [address] [place] [address] December, Osteoarthritis M19.90 [facility] [address] [id number] [address] [place] [address] December, Osteoarthritis M19.90 [facility] [id number] [place] [id number] Nov, [facility] [address] [id number] [address] [place] [address] Nov, [facility] [address] [id number] [address] [place] [address] Nov, [facility] [address] [id number] [address] [place] [address] Nov, Diabetes E11.9 [facility] [address] [id number] [address] [place] [address] Nov, [facility] [address] [id number] [address] [place] [address] Oct, Osteoarthritis M19.90 [facility] [address] [id number] [address] [place] [address] Oct, Osteoarthritis M19.90 ; meterman (current) use of anticoagulants Z79.01 ; Diabetes E11.9 ; Cigarette nicotine dependence without complication F17.210 and Chronic atrial fibrillation I48.2 [place] [address] [address] Aug, [facility] [address] [place] [id number] [address] [place] [address] Aug, nursing home (current) use of a nticoagulants Z79.01 [facility] [address] [place] [id number] [address] [place] [address] Aug, [facility] [address] [place] [id number] [place] [id number] Aug, [place] [address] [address] Aug, [place] [address] [address] Aug, [facility] [address] [place] [id number] [place] [id number] Aug, [facility] [address] [id number] Aug Osteoarthritis M19.90 and Essential hypertension I10 [place] [address] [place] [id number] [address] [place] [address] Aug, Other urinary incontinence N 39.498 [place] [address] [place] [id number] [address] [place] [address] Jul, Osteoarthritis M19.90 [place] [address] [place] [id number] [address] [place] [address] Jun, 2016 Diabetes E11.9 ; Encounter f or immunization Z23 ; Osteoarthritis M19.90 ; meterman (current) use of anticoagulants Z79.01 ; Cigarette nicotine dependence without complication F17.210 ; Acquired hypothyroidism E03.9 ; Morbid obesity, unspecified obesity type E66.01 and Irregular heart beats I49.9 [place] [address] [address] Jun, Osteoarthritis M19.90 [facility] [address] [facility] [id number] [address] [place] [address] May, Osteoarthritis M19.90 [facility] [address] [facility] [id number] [address] [place] [address] May, Urinary incontinence, unspec ified type R32 [facility] [address] [place] [id number] [address] [place] [address] May, [facility] [address] [place] [id number] [address] [place] [address] Apr, Osteoarthritis M19.90 [place] [address] [place] [id number] [place] [address] Apr, nursing home (current) use of a nticoagulants Z79.01 [place] [address] [place] [address] Apr, [facility] [address] [place] [id number] [address] [place] [address] Apr, Osteoarthritis M19.90 [place] [address] [address] Mar, Diabetes E11.9 ; Hypothyroid ism, unspecified type E03.9 ; Osteoarthritis M19.90 ; High risk medication use Z79.899 ; Cigarette nicotine dependence without complication F17.210 and Morbid obesity, unspecified obesity type E66.01 [facility] [address] [facility] [id number] [address] [place] [address] Mar, Osteoarthritis M19.90 [facility] [address] [place] [id number] [address] [place] [address] December, Osteoarthritis M19.90 [place] [address] [place] [id number] [address] [place] [address] December, [place] [address] [place] [id number] [address] [place] [address] Oct, [facility] [address] [facility] [id number] [address] [place] [address] Oct, [facility] [address] [id number] [address] [place] [address] Aug, [facility] [address] [facility] [id number] [address] [place] [address] Jul, [facility] [address] [facility] [id number] [address] [place] [address] Jul, [facility] [address] [facility] [id number] [address] [place] [address] Jul, Diabetes E11.9 ; Encounter f or immunization Z23 ; Abnormal mammogram R92.8 ; Acquired hypothyroidism E03.9 ; High risk medication use Z79.899 ; Osteoarthritis M19.90 and Cigarette nicotine dependence without complication F17.210 [facility] [address] [facility] [id number] [address] [place] [address] Jul, [facility] [address] [facility] [id number] [address] [place] [address] Jun, Abnormal mammogram R92.8 [facility] [address] [facility] [id number] [address] [place] [phone] Apr, [facility] [address] [facility] [id number] [address] [place] [address] Apr, [facility] [address] [facility] [id number] [address] [place] [id number] Mar, [facility] [address] [facility] [id number] [address] [place] [address] Mar, Current use of intermodal dispatcher ant 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 V58.61 [facility] [address] [id number] [address] [place] [phone] Feb, [facility] [address] [facility] [id number] [address] [place] [address] Jan, [facility] [address] [id number] [address] [place] [address], [place] [address] December, [facility] [address] [id number] [address] [place] [address], [place] [address] Nov, [facility] [address] [id number] [address] [place] [address], [place] [address] Nov, [facility] [address] [id number] [address] [place] [address], [place] [address] Oct, [facility] [address] [id number] [address] [place] [address], [place] [address] Oct, [facility] [address] [id number] [address] [place] [address], [place] [address] Oct, [facility] [address] [id number] [address] [place] [address], [place] [address] Oct, [facility] [address] [id number] [address] [place] [address], [place] [address] Oct, [facility] [address] [id number] [address] [place] [address], [place] [address] Oct, [facility] [address] [id number] [address] [place] [address], [place] [address] Sep, [facility] [address] [id number] [address] [place] [address], [place] [address] Sep, [facility] [address] [id number] [address] [place] [address], [place] [address] Sep, [facility] [address] [id number] [address] [place] [address], [place] [address] Sep, [facility] [address] [id number] [address] [place] [address], [place] [address] Aug, [facility] [address] [id number] [address] [place] [address], [place] [address] Aug, [facility] [address] [id number] [address] [place] [address], [place] [address] Aug, [facility] [address] [id number] [address] [place] [address], [place] [address] 16 Aug, 2014 [facility] [address] [id number] [address] [place] [address], [place] [address] Aug, [facility] [address] [id number] [address] [place] [address], [place] [address] Aug, [facility] [address] [id number] [address] [place] [address], [place] [address] Jul, [facility] [address] [id number] [address] [place] [address], [place] [address] Jul, [facility] [address] [id number] [address] [place] [address], [place] [address] Jul, [facility] [address] [id number] [address] [place] [address], [place] [address] Jul, [facility] [address] [id number] [address] [place] [address], [place] [address] Jul, [facility] [address] [id number] [address] [place] [address], [place] [address] Jul, [facility] [address] [id number] [address] [place] [address], [place] [address] Jun, [facility] [address] [id number] [address] [place] [address], [place] [address] Jun, [facility] [address] [id number] [address] [place] [address], [place] [address] Jun, [facility] [address] [id number] [address] [place] [address], [place] [address] Jun, [facility] [address] [id number] [address] [place] [address], [place] [address] Jun, [facility] [address] [id number] [address] [place] [address], [place] [address] Jun, [facility] [address] [id number] [address] [place] [address], [place] [address] Jun, [facility] [address] [id number] [address] [place] [address], [place] [address] Jun, [facility] [address] [id number] [address] [place] [address], [place] [address] Jun, [facility] [address] [id number] [address] [place] [address], [place] [address] May, [facility] [address] [id number] [address] [place] [address], [place] [address] May, [facility] [address] [id number] [address] [place] [address], [place] [address] Apr, [facility] [address] [id number] [address] [place] [address], [place] [address] Apr, [facility] [address] [id number] [address] [place] [address], [place] [address] Apr, [facility] [address] [id number] [address] [place] [address], [place] [address] Apr, [facility] [address] [id number] [address] [place] [address], [place] [address] Apr, [facility] [address] [id number] [address] [place] [address], [place] [address] Apr, [facility] [address] [id number] [address] [place] [address], [place] [address] Apr, [facility] [address] [id number] [address] [place] [address], [place] [address] Apr, [facility] [address] [id number] [address] [place] [address], [place] [address] Apr, [facility] [address] [id number] [address] [place] [address], [place] [address] Apr, [facility] [address] [id number] [address] [place] [address], [place] [address] Mar, [facility] [address] [id number] [address] [place] [address], [place] [address] Mar, [facility] [address] [id number] [address] [place] [address], [place] [address] Mar, [facility] [address] [id number] [address] [place] [address], [place] [address] Mar, [facility] [address] [id number] [address] [place] [address], [place] [address] Mar, [facility] [address] [id number] [address] [place] [address], [place] [address] Mar, [facility] [address] [id number] [address] [place] [address], [place] [address] Feb, [facility] [address] [id number] [address] [place] [address], [place] [address] Feb, [facility] [address] [id number] [address] [place] [address], [place] [address] Feb, [facility] [address] [id number] [address] [place] [address], [place] [address] Feb, [facility] [address] [id number] [address] [place] [address], [place] [address] Jan, [facility] [address] [id number] [address] [place] [address], [place] [address] Jan, [facility] [address] [id number] [address] [place] [address], [place] [address] Jan, [facility] [address] [id number] [address] [place] [address], [place] [address] Jan, [facility] [address] [id number] [address] [place] [address], [place] [address] Oct, [facility] [address] [id number] [address] [place] [address], [place] [address] Oct, [facility] [address] [id number] [address] [place] [address], [place] [address] Sep, [facility] [address] [id number] [address] [place] [address], [place] [address] Sep, [facility] [address] [id number] [address] [place] [address], [place] [address] Sep, [facility] [address] [id number] [address] [place] [address], [place] [address] Sep, [facility] [address] [id number] [address] [place] [address], [place] [address] Aug, [facility] [address] [id number] [address] [place] [address], [place] [address] Aug, [facility] [address] [id number] [address] [place] [address], [place] [address] Aug, [facility] [address] [id number] [address] [place] [address], [place] [address] Aug, [facility] [address] [id number] [address] [place] [address], [place] [address] Jul, [facility] [address] [id number] [address] [place] [address], [place] [address] Jul, [facility] [address] [id number] [address] [place] [address], [place] [address] Jul, [facility] [address] [id number] [address] [place] [address], [place] [address] Jul, [facility] [address] [id number] [address] [place] [address], [place] [address] Jul, [facility] [address] [id number] [address] [place] [address], [place] [address] Jul, [facility] [address] [id number] [address] [place] [address], [place] [address] Jun, [facility] [address] [id number] [address] [place] [address], [place] [address] Jun, [facility] [address] [id number] [address] [place] [address], [place] [address] Jun, [facility] [address] [id number] [address] [place] [address], [place] [address] Jun, [facility] [address] [id number] [address] [place] [address], [place] [address] Jun, [facility] [address] [id number] [address] [place] [address], [place] [address] Jun, [facility] [address] [id number] [address] [place] [address], [place] [address] May, [facility] [address] [id number] [address] [place] [address], [place] [address] May, [facility] [address] [id number] [address] [place] [address], [place] [id number] May, [facility] [address] [id number] [address] [place] [address], [place] [address] May, [facility] [address] [id number] [address] [place] [address], [place] [address] May, [facility] [address] [id number] [address] [place] [address], [place] [address] May, [facility] [address] [id number] [address] [place] [address], [place] [address] May, [facility] [address] [id number] [address] [place] [address], [place] [address] May, [facility] [address] [id number] [address] [place] [address], [place] [id number] Apr, [facility] [address] [id number] [address] [place] [address], [place] [address] Apr, [facility] [address] [id number] [address] [place] [address], [place] [address] Mar, [facility] [address] [id number] [address] [place] [address], [place] [address] Mar, [facility] [address] [id number] [address] [place] [address], [place] [address] Mar, [facility] [address] [id number] [address] [place] [address], [place] [id number] Mar, [facility] [address] [id number] [address] [place] [address], [place] [address] Feb, [facility] [address] [id number] [address] [place] [address], [place] [id number] Jan, [facility] [address] [id number] [address] [place] [address], [place] [address] December, [facility] [address] [id number] [address] [place] [address], [place] [address] December, [facility] [address] [id number] [address] [place] [address], [place] [address] December, [facility] [address] [id number] [address] [place] [address], [place] [address] Nov, [facility] [address] [id number] [address] [place] [address], [place] [address] Nov, [facility] [address] [id number] [address] [place] [address], [place] [address] Sep, [facility] [address] [id number] [address] [place] [address], [place] [address] Sep, [facility] [address] [id number] [address] [place] [address], [place] [id number] 14 Sep, 2012 [facility] [address] [id number] [address] [place] [address], [place] [address] Sep, [facility] [address] [id number] [address] [place] [address], [place] [address] Aug, [facility] [address] [id number] [address] [place] [address], [place] [address] Aug, [facility] [address] [id number] [address] [place] [address], [place] [address] 08 Aug, 2012 [facility] [address] [id number] [address] [place] [address], [place] [address] Aug, [facility] [address] [id number] [address] [place] [address], [place] [address] Jul, [facility] [address] [id number] [address] [place] [address], [place] [address] Jul, [facility] [address] [id number] [address] [place] [address], [place] [address] Jul, [facility] [address] [id number] [address] [place] [address], [place] [address] Jul, [facility] [address] [id number] [address] [place] [address], [place] [address] Jun, [facility] [address] [id number] [address] [place] [address], [place] [address] Jun, [facility] [address] [id number] [address] [place] [address], [place] [address] Jun, [facility] [address] [id number] [address] [place] [address], [place] [address] Jun, [facility] [address] [id number] [address] [place] [address], [place] [address] May, [facility] [address] [id number] [address] [place] [address], [place] [address] May, [facility] [address] [id number] [address] [place] [address], [place] [address] May, [facility] [address] [id number] [address] [place] [address], [place] [address] May, [facility] [address] [id number] [address] [place] [address], [place] [address] May, [facility] [address] [id number] [address] [place] [address], [place] [address] Apr, [facility] [address] [id number] [address] [place] [address], [place] [id number] 08 Apr, 2012 [facility] [address] [id number] [address] [place] [address], [place] [id number] 07 Apr, 2012 [facility] [address] [id number] [address] [place] [address], [place] [address] 06 Apr, 2012 [facility] [address] [id number] [address] [place] [address], [place] [address] Mar, [facility] [address] [id number] [address] [place] [address], [place] [address] Mar, [facility] [address] [id number] [address] [place] [address], [place] [address] Feb, [facility] [address] [id number] [address] [place] [address], [place] [address] Feb, [facility] [address] [id number] [address] [place] [address], [place] [address] Feb, [facility] [address] [id number] [address] [place] [address], [place] [address] Jan, [facility] [address] [id number] [address] [place] [address], [place] [address] Jan, [facility] [address] [id number] [address] [place] [address], [place] [address] December, [facility] [address] [id number] [address] [place] [address], [place] [address] December, [facility] [address] [id number] [address] [place] [address], [place] [address] Nov, [facility] [address] [id number] [address] [place] [address], [place] [address] Oct, [facility] [address] [id number] [address] [place] [address], [place] [address] Oct, [facility] [address] [id number] [address] [place] [address], [place] [address] Sep, [facility] [address] [id number] [address] [place] [address], [place] [address] Sep, [facility] [address] [id number] [address] [place] [address], [place] [address] Aug, [facility] [address] [id number] [address] [place] [address], [place] [address] Aug, [facility] [address] [id number] [address] [place] [address], [place] [address] Jul, [facility] [address] [id number] [address] [place] [address], [place] [address] Jul, [facility] [address] [id number] [address] [place] [address], [place] [address] Jul, [facility] [address] [id number] [address] [place] [address], [place] [address] Jun, [facility] [address] [id number] [address] [place] [address], [place] [address] Jun, [facility] [address] [id number] [address] [place] [address], [place] [address] May, [facility] [address] [id number] [address] [place] [address], [place] [address] May, [facility] [address] [id number] [address] [place] [address], [place] [id number] May, [facility] [address] [id number] [address] [place] [address], [place] [address] Jul, [facility] [address] [id number] [address] [place] [address], [place] [address] Jul, [facility] [address] [id number] [address] [place] [address], [place] [address] 15 Jun, 2010 [facility] [address] [id number] [address] [place] [address], [place] [address] May, [facility] [address] [id number] [address] [place] [address] May, [facility] [address] [id number] [address] [place] [address] Aug, [facility] [address] [id number] [address] [place] [address] Jul, [facility] [address] [id number] [address] [place] [address] Jun, [facility] [address] [id number] [address] [place] [address] Jun, [facility] [address] [id number] [address] [place] [address] Jun, [facility] [address] [id number] [address] [place] [address] Jun, [facility] [address] [id number] [address] [place] [address] Jun, [facility] [address] [id number] [address] [place] [address] May, [facility] [address] [id number] [address] [place] [address] Sep, IMMUNIZATIONS No Known Immunizations SOCIAL HISTORY Never Assessed REASON FOR VISIT Controlled Med Refill PLAN OF CARE VITAL SIGNS MEDICATIONS Medication Instructions Dosage Frequency Start Date End Date Duration S borisus Tramadol HCl 50 mg Orally 2 times [...]
--- OUTSIDE RECORDS SUMMARY | 2020-01-28 14:45 | XMS REPORT ---
Author Author Katarina RODRIGUEZ Organization [facility] Address [address] [place] [address] Care Team Providers Care Mop Maker Name Role Phone GEORGINA RODRIGUEZ Unavailable PROBLEMS Type Condition ICD9-CM Code [id number] Code Onset Dates Condition S tatus SNOMED Code Problem Eye exam normal Z01.00 Active 2438 38782 Problem Cigarette nicotine dependence without complication F17.210 Active 88173935 Problem Abnormal mammogram R92.8 Active 1 94882209 Problem History of cataract surgery Z98.49 Ac tive 535816888 Problem Diabetes E11.9 Active 821604046 Problem High risk medication use Z79.899 Activ e 322762346 Problem Osteoarthritis M19.90 Active 21232 5006 Problem Encounter for immunization Z23 Act essie 215753804 Problem Acquired hypothyroidism E03.9 Active 898983942 Assessment Hypothyroidism, unspecified type E03.9 Mar Active 98182760 Assessment Diabetes E11.9 Mar, Active 411596 007 Assessment Morbid obesity, unspecified obesity type E66.01 Mar, Active 993054040 Problem Need for prophylactic vaccination and inoculation, Influen za V04.81 Active 527570267 Problem Other screening mammogram V76.12 Acti ve 80985237 Problem Unspecified viral infection, in conditions classified elsewhere and of unspecified site 079.99 Active 00953559 Problem 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 Unknown Non Drug Allergy Mar, Unknown SOCIAL HISTORY No smoking Hx information available PLAN OF CARE VITAL SIGNS Height 64 in 2016-04-07 Weight 265.6 lbs 2016-04-07 Heart Rate 88 bpm 2016-04-07 Respiratory Rate 24 2016-04-07 BMI 45.59 kg/m2 2016-04-07 Blood pressure systolic 124 mmHg 2016-04-07 Blood pressure diastolic 82 mmHg 2016-04-07 MEDICATIONS Medication Instructions Dosage Frequency Start Date End Date Duration S ron Warfarin Sodium 5 MG Orally Once a day 1 tablet 24h Active ProAir HFA 90 INHALE 2 PUFFS NEEDED EVERY 6 HOURS FOR BREATHI NG 25 Active tramadol 50 mg by oral route 3 times a day 1 tablet 8h Oct, 28 days Active Januvia 100 MG Orally Once a day 1 tablet 24h Active Potassium Chloride 10 mEq 1 tablet by Oral route 1 supriya e per day 24h Jan, Active Walker N/A as directed Jul, Acti ve Lisinopril 40 MG Orally Once a day 1 tablet 24h Active Lipitor 20 MG Orally Once a day 1 tablet 24h 90 days Active Nexium 40 mg take 1 capsule (40 mg) by oral route once daily Oct, Active Amlodipine Besylate 5 MG Orally Once a day 1 tablet 24h Active Levothyroxine Sodium 175 MCG Orally Once a day 1 tablet on an empty stomach in the morning 24h Active Atrovent HFA 17 mcg/actuation 2 puffs by Inhalation ro amisha 4 times per day Apr, Active RESULTS Name Result Date Reference Range TSH 2016-04-07 TSH 1.220 0.450-4.500 LIPID PANEL 2016-04-07 Cholesterol, Total 124 100-199 Triglycerides 102 0-149 HDL Cholesterol 42 >39 VLDL Cholesterol Bacilio 20 5-40 LDL Cholesterol Calc 62 0-99 Comment: CMP 2016-04-07 Glucose, Serum 115 65-99 BUN 17 8-27 Creatinine, Serum 0.87 0.57-1.00 eGFR If NonAfricn Am 71 >59 eGFR If Africn Am 82 >59 BUN/Creatinine Ratio 20 11-26 Sodium, Serum 142 134-144 Potassium, Serum 4.8 3.5-5.2 Chloride, Serum 100 97-108 Carbon Dioxide, Total 24 18-29 Calcium, Serum 9.2 8.7-10.3 Protein, Total, Serum 7.1 6.0-8.5 Albumin, Serum 4.0 3.6-4.8 Globulin, Total 3.1 1.5-4.5 A/G Ratio 1.3 1.1-2.5 Bilirubin, Total 0.9 0.0-1.2 Alkaline Phosphatase, S 93 39-117 AST (SGOT) 17 0-40 ALT (SGPT) 12 0-32 INR (IN HOUSE) 2016-04-07 INR 1.6 1.10 - 3.30 PREVIOUS INR 4.2 CURRENT COUMADIN DOSE 5 mg qd NEW COUMADIN DOSE No change Lot # [id number] Exp date Apr 2016 Xray : Hip, Right 2 views (IN HOUSE) 2016-04-07 Xray : Knee, Left 3 views (IN HOUSE) 2016-04-07 Xray : Knee, Right 3 views (IN HOUSE) 2016-04-07 PROCEDURES Procedure Date Ordered Related Diagnosis Body Site GLYCATED HEMOGLOBIN TEST Apr 07, 2016 [facility] Apr 07, 2016 VENIPUNCT, ROUTINE* Apr 07, 2016 X-RAY EXAM OF KNEE, 3 Apr 07, 2016 X-RAY EXAM HIP UNI 2-3 VIEWS Apr 07, 2016 Office Visit, Est Pt., Level 3 Apr 07, 2016 [facility] VISIT ESTABLISHED PATIENT Apr 07, 2016 IMMUNIZATIONS No Known Immunizations
--- OUTSIDE RECORDS SUMMARY | 2020-01-28 14:45 | XMS REPORT ---
Author Author Katarina RODRIGUEZ Organization [employer] Address Unknown Phone Unavailable Care Team Providers Care Reverse Unit Operator Fisherman Name Role Phone GEORGINA RODRIGUEZ CP Unavailable [...]
--- OUTSIDE RECORDS SUMMARY | 2020-01-28 14:45 | XMS REPORT ---
Author Author Katarina RODRIGUEZ Organization [employer] Address Unknown Phone Unavailable Care Team Providers Care Factory Helper Name Role Phone GEORGINA RODRIGUEZ CP Unavailable [...] Instructions Start Date End Date Status Dosage Potassium Chloride [facility] [address]-86 10 mEq Once a day January 08 2 1 tablet by Oral route 1 time per day Results No Known Results Summary Purpose [employer] Submission
--- OUTSIDE RECORDS SUMMARY | 2020-01-28 14:45 | XMS REPORT ---
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 Name Role Phone GEORGINA RODRIGUEZ Unavailable PROBLEMS Type Condition ICD9-CM Code LSA10-SH Code Onset Dates Condition S tatus SNOMED Code Problem Encounter for immunization Z23 Act essie 038153228 Problem Urinary incontinence, unspecified type R32 Active 564532125 Problem History of cataract surgery Z98.49 Ac tive 625801388 Problem Chronic atrial fibrillation I48.2 Ac tive 640224268 Problem Essential hypertension I10 Active 33449243 Problem Morbid obesity, unspecified obesity type E66.01 Active 353765001 Problem 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 Active 592516252 Problem Other urinary incontinence N39.498 Act essie 706570901 Problem Irregular heart beats I49.9 Active 709181447 Problem Eye exam normal Z01.00 Active 2438 35803 Problem Cigarette nicotine dependence without complication F17.210 Active 74522264 Problem Acquired hypothyroidism E03.9 Active 149200665 Problem Abnormal mammogram R92.8 Active 1 95207657 Problem High risk medication use Z79.899 Activ e 362516202 Problem Osteoarthritis M19.90 Active 73062 5006 Problem Diabetes E11.9 Active 044468213 ALLERGIES No Information ENCOUNTERS Encounter Location Date Diagnosis [facility] [address] [facility] [id number] [address] [place] [address] Nov, [facility] [address] [facility] [id number] [address] [place] [address] Oct, Osteoarthritis M19.90 [facility] [address] [facility] [id number] [address] [place] [address] Oct, government guard (current) use of a nticoagulants Z79.01 [facility] [address] [facility] [id number] [address] [place] [address] Sep, Osteoarthritis M19.90 [facility] [address] [facility] [id number] [address] [place] [address] Sep, [facility] [address] [facility] [id number] [address] [place] [address] Aug, Osteoarthritis M19.90 [facility] [address] [facility] [id number] [address] [place] [address] Jul, Osteoarthritis M19.90 [facility] [address] [facility] [id number] [address] [place] [address] Jul, Osteoarthritis M19.90 [facility] [address] 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 [id number] [address] [place] [address] May, Osteoarthritis M19.90 [facility] [address] [facility] [id number] [address] [place] [address] Apr, Osteoarthritis M19.90 [facility] [address] [facility] [id number] [address] [place] [address] Mar, Chronic atrial fibrillation I48.2 [facility] [address] [id number] [address] [place] [address] Mar, [facility] [address] [facility] [id number] [address] [place] [address] Mar, Osteoarthritis M19.90 [facility] [address] [facility] [id number] [address] [place] [address] Mar, government guard (current) use of a nticoagulants Z79.01 and Chronic atrial fibrillation I48.2 [facility] [address] [id number] [address] [place] [address] Mar, Chronic atrial fibrillation I48.2 and halfway (current) use of anticoagulants Z79.01 [facility] [address] [id number] [address] [place] [address] Mar, halfway (current) use of a nticoagulants Z79.01 [facility] [address] [id number] [address] [place] [address] Mar, halfway (current) use of a nticoagulants Z79.01 [facility] [address] [id number] [address] [place] [address] Mar, Osteoarthritis M19.90 [facility] [address] [facility] [id number] [address] [place] [address] Feb, Encounter for screening mamm ogram for malignant neoplasm of breast Z12.31 [facility] [address] [id number] [address] [place] [address] Feb, Osteoarthritis M19.90 [facility] [address] [id number] [address] [place] [address] Jan, [facility] [address] [id number] [address] [place] [address] Jan, government guard (current) use of a nticoagulants Z79.01 ; Diabetes E11.9 ; Osteoarthritis M19.90 and Breast cancer screening Z12.39 [facility] [address] [id number] [address] [place] [address] Jan, Osteoarthritis M19.90 [facility] [address] [id number] [address] [place] [address] Jan, Osteoarthritis M19.90 [facility] [address] [id number] [address] [place] [address] Jan, [facility] [address] [id number] [address] [place] [address] December, Osteoarthritis M19.90 [facility] [address] [id number] [address] [place] [address] December, Osteoarthritis M19.90 [facility] [address] [id number] [facility] [id number] Nov, [facility] [address] [id number] [address] [place] [address] Nov, [facility] [address] [id number] [address] [place] [address] Nov, [facility] [address] [id number] [address] [place] [address] Nov, Diabetes E11.9 [facility] [address] [id number] [address] [place] [address] Nov, [facility] [address] [id number] [address] [place] [address] Oct, Osteoarthritis M19.90 [facility] [address] [id number] [address] [place] [address] Oct, Osteoarthritis M19.90 ; 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 ; Diabetes E11.9 ; Cigarette nicotine dependence without complication F17.210 and Chronic atrial fibrillation I48.2 [facility] [address] [id number] [address] [place] [address] Aug, [facility] [address] [id number] [address] [place] [address] Aug, halfway (current) use of a nticoagulants Z79.01 [facility] [address] [id number] [address] [place] [address] Aug, [facility] [address] [id number] [facility] [id number] Aug, [facility] [address] [id number] [address] [place] [address] Aug, [facility] [address] [facility] [id number] [address] [place] [address] Aug, [facility] [id number] [place] [id number] Aug, [employer] [address] [id number] Aug Osteoarthritis M19.90 and Essential hypertension I10 [facility] [address] [place] [id number] [address] [place] [address] Aug, Other urinary incontinence N 39.498 [facility] [address] [facility] [id number] [address] [place] [address] Jul, Osteoarthritis M19.90 [facility] [address] [address] Jun, Diabetes E11.9 ; Encounter f or immunization Z23 ; Osteoarthritis M19.90 ; halfway (current) use of anticoagulants Z79.01 ; Cigarette nicotine dependence without complication F17.210 ; Acquired hypothyroidism E03.9 ; Morbid obesity, unspecified obesity type E66.01 and Irregular heart beats I49.9 [facility] [address] [facility] [id number] [address] [place] [address] Jun, Osteoarthritis M19.90 [facility] [address] [facility] [id number] [address] [place] [address] May, Osteoarthritis M19.90 [facility] [address] [place] [id number] [address] [place] [address] May, Urinary incontinence, unspec ified type R32 [facility] [address] [facility] [id number] [address] [place] [address] May, [facility] [address] [facility] [id number] [address] [place] [address] Apr, Osteoarthritis M19.90 [facility] [address] [place] [id number] [address] [place] [address] Apr, halfway (current) use of a nticoagulants Z79.01 [facility] [address] [id number] [address] [place] [address] Apr, [facility] [address] [facility] [id number] [address] [place] [address] Apr, Osteoarthritis M19.90 [facility] [address] [facility] [id number] [address] [place] [address] Mar, Diabetes E11.9 ; Hypothyroid ism, unspecified type E03.9 ; Osteoarthritis M19.90 ; High risk medication use Z79.899 ; Cigarette nicotine dependence without complication F17.210 and Morbid obesity, unspecified obesity type E66.01 [facility] [address] [facility] [id number] [address] [place] [address] Mar, Osteoarthritis M19.90 [place] [address] [facility] [id number] [address] [place] [address] December, Osteoarthritis M19.90 [facility] [address] [facility] [id number] [address] [place] [address] December, [facility] [address] [facility] [id number] [address] [place] [address] Oct, [facility] [address] [facility] [id number] [address] [place] [address] Oct, [facility] [address] [facility] [id number] [address] [place] [address] Aug, [facility] [address] [facility] [id number] [address] [place] [address] Jul, [facility] [address] [facility] [id number] [address] [place] [address] Jul, [place] [address] [place] [id number] [address] [place] [address] Jul, Diabetes E11.9 ; Encounter f or immunization Z23 ; Abnormal mammogram R92.8 ; Acquired hypothyroidism E03.9 ; High risk medication use Z79.899 ; Osteoarthritis M19.90 and Cigarette nicotine dependence without complication F17.210 [facility] [address] [id number] [address] [place] [address] Jul, [facility] [address] [id number] [address] [place] [address] Jun, Abnormal mammogram R92.8 [facility] [address] [id number] [address] [place] [address] Apr, [facility] [address] [id number] [address] [place] [address] Apr, [facility] [address] [id number] [address] [place] [address] Mar, [facility] [address] [id number] [address] [place] [address] Mar, Current use of residential ant 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 V58.61 [facility] [address] [id number] [address] [place] [address] Feb, [facility] [address] [id number] [address] [place] [address] Jan, [facility] [address] [id number] [address] [place] [address] December, [facility] [address] [id number] [address] [place] [address] Nov, [facility] [address] [id number] [address] [place] [address] Nov, [facility] [address] [id number] [address] [place] [address] Oct, [facility] [address] [id number] [address] [place] [address] Oct, [facility] [address] [id number] [address] [place] [address] Oct, [facility] [address] [id number] [address] [place] [address] Oct, [facility] [address] [id number] [address] [place] [address], [place] [address] Oct, [facility] [address] [id number] [address] [place] [address], [place] [address] Oct, [facility] [address] [id number] [address] [place] [address], [place] [address] Sep, [facility] [address] [id number] [address] [place] [address], [place] [address] Sep, [facility] [address] [id number] [address] [place] [address], [place] [address] Sep, [facility] [address] [id number] [address] [place] [address], [place] [address] Sep, [facility] [address] [id number] [address] [place] [address], [place] [address] Aug, [facility] [address] [id number] [address] [place] [address], [place] [address] Aug, [facility] [address] [id number] [address] [place] [address], [place] [address] Aug, [facility] [address] [id number] [address] [place] [address], [place] [address] Aug, [facility] [address] [id number] [address] [place] [address], [place] [address] Aug, [facility] [address] [id number] [address] [place] [address] Aug, [facility] [address] [id number] [address] [place] [address], [place] [address] Jul, [facility] [address] [id number] [address] [place] [address], [place] [address] Jul, [facility] [address] [id number] [address] [place] [address], [place] [address] Jul, [facility] [address] [id number] [address] [place] [address], [place] [address] Jul, [facility] [address] [id number] [address] [place] [address], [place] [address] Jul, [facility] [address] [id number] [address] [place] [address], [place] [address] Jul, [facility] [address] [id number] [address] [place] [address], [place] [address] Jun, [facility] [address] [id number] [address] [place] [address], [place] [address] Jun, [facility] [address] [id number] [address] [place] [address], [place] [address] Jun, [facility] [address] [id number] [address] [place] [address], [place] [address] Jun, [facility] [address] [id number] [address] [place] [address], [place] [address] Jun, [facility] [address] [id number] [address] [place] [address], [place] [address] Jun, [facility] [address] [id number] [address] [place] [address], [place] [address] Jun, [facility] [address] [id number] [address] [place] [address], [place] [address] Jun, [facility] [address] [id number] [address] [place] [address], [place] [address] Jun, [facility] [address] [id number] [address] [place] [address], [place] [address] May, [facility] [address] [id number] [address] [place] [address], [place] [address] May, [facility] [address] [id number] [address] [place] [address], [place] [address] Apr, [facility] [address] [id number] [address] [place] [address], [place] [address] Apr, [facility] [address] [id number] [facility] [place] [address] Apr, 2013 [facility] [address] [id number] [address] [place] [address], [place] [address] Apr, [facility] [address] [id number] [address] [place] [address], [place] [address] Apr, 2013 [facility] [address] [id number] [address] [place] [address], [place] [address] Apr, 2013 [facility] [address] [id number] [address] [place] [address], [place] [address] Apr, [facility] [address] [id number] [address] [place] [address], [place] [address] Apr, [facility] [address] [id number] [address] [place] [address], [place] [address] Apr, [facility] [address] [id number] [address] [place] [address], [place] [address] Apr, [facility] [address] [id number] [address] [place] [address], [place] [address] Mar, [facility] [address] [id number] [address] [place] [address], [place] [address] Mar, [facility] [address] [id number] [address] [place] [address], [place] [address] Mar, [facility] [address] [id number] [address] [place] [address], [place] [address] Mar, [facility] [address] [id number] [address] [place] [address], [place] [address] Mar, [facility] [address] [id number] [address] [place] [address], [place] [address] Mar, [facility] [address] [id number] [address] [place] [address], [place] [address] Feb, [facility] [address] [id number] [address] [place] [address], [place] [address] Feb, [facility] [address] [id number] [address] [place] [address], [place] [address] Feb, [facility] [address] [id number] [address] [place] [address], [place] [address] Feb, [facility] [address] [id number] [address] [place] [address], [place] [address] Jan, [facility] [address] [id number] [address] [place] [address], [place] [address] Jan, [facility] [address] [id number] [address] [place] [address], [place] [address] Jan, [facility] [address] [id number] [address] [place] [address], [place] [address] Jan, [facility] [address] [id number] [address] [place] [address], [place] [address] Oct, [facility] [address] [id number] [address] [place] [address], [place] [address] Oct, [facility] [address] [id number] [address] [place] [address], [place] [address] Sep, [facility] [address] [id number] [address] [place] [address], [place] [address] Sep, [facility] [address] [id number] [address] [place] [address], [place] [address] Sep, [facility] [address] [id number] [address] [place] [address], [place] [address] Sep, [facility] [address] [id number] [address] [place] [address], [place] [address] Aug, [facility] [address] [id number] [address] [place] [address], [place] [address] Aug, [facility] [address] [id number] [address] [place] [address], [place] [address] Aug, [facility] [address] [id number] [address] [place] [address], [place] [address] Aug, [facility] [address] [id number] [address] [place] [address], [place] [address] Jul, [facility] [address] [id number] [address] [place] [address], [place] [address] 30 Jul, 2013 [facility] [address] [id number] [address] [place] [address], [place] [address] Jul, [facility] [address] [id number] [address] [place] [address], [place] [address] Jul, [facility] [address] [id number] [address] [place] [address], [place] [address] Jul, [facility] [address] [id number] [address] [place] [address], [place] [address] Jul, [facility] [address] [id number] [address] [place] [address], [place] [address] Jun, [facility] [address] [id number] [address] [place] [address], [place] [address] Jun, [facility] [address] [id number] [address] [place] [address] Jun, [facility] [address] [id number] [address] [place] [address] Jun, [facility] [address] [id number] [address] [place] [address] Jun, [facility] [address] [id number] [address] [place] [address], [place] [address] Jun, [facility] [address] [id number] [address] [place] [address], [place] [address] May, [facility] [address] [id number] [address] [place] [address] May, [facility] [address] [id number] [address] [place] [address] May, [facility] [address] [id number] [address] [place] [address], [place] [address] May, [facility] [address] [id number] [address] [place] [address], [place] [address] May, [facility] [address] [id number] [address] [place] [address], [place] [address] May, [facility] [address] [id number] [address] [place] [address], [place] [address] May, [facility] [address] [id number] [address] [place] [address], [place] [address] May, [facility] [address] [id number] [address] [place] [address], [place] [address] Apr, [facility] [address] [id number] [address] [place] [address], [place] [address] Apr, [facility] [address] [id number] [address] [place] [address], [place] [address] Mar, [facility] [address] [id number] [address] [place] [address], [place] [address] Mar, [facility] [address] [id number] [address] [place] [address], [place] [address] Mar, [facility] [address] [id number] [address] [place] [address], [place] [address] Mar, [facility] [address] [id number] [address] [place] [address], [place] [address] Feb, [facility] [address] [id number] [address] [place] [address], [place] [address] Jan, [facility] [address] [id number] [address] [place] [address], [place] [address] December, [facility] [address] [id number] [address] [place] [address], [place] [address] December, [facility] [address] [id number] [address] [place] [address], [place] [address] December, [facility] [address] [id number] [address] [place] [address], [place] [address] Nov, [facility] [address] [id number] [address] [place] [address], [place] [address] Nov, [facility] [facility] [address] [id number] [address] [place] [address], [place] [address] Sep, [facility] [address] [id number] [address] [place] [address], [place] [address] Sep, [facility] [address] [id number] [address] [place] [address], [place] [address] Sep, [facility] [address] [id number] [address] [place] [address], [place] [address] Sep, [facility] [address] [id number] [address] [place] [address], [place] [address] Aug, [facility] [address] [id number] [address] [place] [address], [place] [address] Aug, [facility] [address] [id number] [address] [place] [address], [place] [address] Aug, [facility] [address] [id number] [address] [place] [address], [place] [address] Aug, [facility] [address] [id number] [address] [place] [address], [place] [address] Jul, [facility] [address] [id number] [address] [place] [address], [place] [address] Jul, [facility] [address] [id number] [address] [place] [address], [place] [address] Jul, [facility] [address] [id number] [address] [place] [address], [place] [address] Jul, [facility] [address] [id number] [address] [place] [address], [place] [address] Jun, [facility] [address] [id number] [address] [place] [address], [place] [address] Jun, [facility] [address] [id number] [address] [place] [address], [place] [address] Jun, [facility] [address] [id number] [address] [place] [address], [place] [address] Jun, [facility] [address] [id number] [address] [place] [address], [place] [address] May, [facility] [address] [id number] [address] [place] [address], [place] [address] May, [facility] [address] [id number] [address] [place] [address], [place] [address] May, [facility] [address] [id number] [address] [place] [address], [place] [address] May, [facility] [address] [id number] [address] [place] [address], [place] [address] May, [facility] [address] [id number] [address] [place] [address], [place] [address] 10 Apr, 2012 [facility] [address] [id number] [address] [place] [address], [place] [address] Apr, [facility] [address] [id number] [address] [place] [address], [place] [address] 07 Apr, 2012 [facility] [address] [id number] [address] [place] [address], [place] [address] 06 Apr, 2012 [facility] [address] [id number] [address] [place] [address], [place] [address] Mar, [facility] [address] [id number] [address] [place] [address], [place] [address] Mar, [facility] [address] [id number] [address] [place] [address], [place] [address] Feb, [facility] [address] [id number] [address] [place] [address], [place] [address] Feb, [facility] [address] [id number] [address] [place] [address], [place] [address] Feb, [facility] [address] [id number] [address] [place] [address], [place] [address] Jan, [facility] [address] [id number] [address] [place] [address], [place] [address] Jan, [facility] [address] [id number] [address] [place] [address], [place] [address] December, [facility] [address] [id number] [address] [place] [address], [place] [address] December, [facility] [address] [id number] [address] [place] [address], [place] [address] Nov, [facility] [address] [id number] [address] [place] [address], [place] [address] Oct, [facility] [address] [id number] [address] [place] [address], [place] [address] Oct, [facility] [address] [id number] [address] [place] [address], [place] [address] Sep, [facility] [address] [id number] [address] [place] [address], [place] [address] Sep, [facility] [address] [id number] [address] [place] [address], [place] [address] Aug, [facility] [address] [id number] [address] [place] [address], [place] [address] Aug, [facility] [address] [id number] [address] [place] [address], [place] [address] Jul, [facility] [address] [id number] [address] [place] [address], [place] [address] Jul, [facility] [address] [id number] [address] [place] [address], [place] [address] Jul, [facility] [address] [id number] [address] [place] [address], [place] [address] 07 Jun, 2011 [facility] [address] [id number] [address] [place] [address], [place] [address] 07 Jun, 2011 [facility] [address] [id number] [address] [place] [address], [place] [address] 13 May, 2011 [facility] [address] [id number] [address] [place] [address], [place] [address] 11 May, 2011 [facility] [address] [id number] [address] [place] [address], [place] [address] 11 May, 2011 [facility] [address] [id number] [address] [place] [address], [place] [address] 09 Jul, 2010 [facility] [address] [id number] [address] [place] [address], [place] [address] 08 Jul, 2010 [facility] [address] [id number] [address] [place] [address], [place] [address] 15 Jun, 2010 [facility] [address] [id number] [address] [place] [address], [place] [address] May, [facility] [address] [id number] [address] [place] [address] May, [facility] [address] [id number] [address] [place] [address], [place] [address] 14 Aug, 2009 [facility] [address] [id number] [address] [place] [address] Jul, [facility] [address] [id number] [address] [place] [address], [place] [address] Jun, [facility] [address] [id number] [address] [place] [address] Jun, [facility] [address] [id number] [address] [place] [address], [place] [address] Jun, [facility] [address] [id number] [address] [place] [address] Jun, [facility] [address] [facility] [id number] [address] [place] [address] Jun, [facility] [address] [facility] [id number] [address] [place] [address] May, [facility] [address] [facility] [id number] [address] [place] [address] Sep, IMMUNIZATIONS No Known Immunizations SOCIAL HISTORY Never Assessed REASON FOR VISIT Medication refill request PLAN OF CARE VITAL SIGNS MEDICATIONS Unknown [...]
--- OUTSIDE RECORDS SUMMARY | 2020-01-28 14:46 | XMS REPORT ---
Author Author Katarina RODRIGUEZ Organization [facility] Address [address] [place] [address] Care Team Providers Care Inclusion Special Educator Name Role Phone GEORGINA RODRIGUEZ Unavailable PROBLEMS Type Condition ICD9-CM Code HQW89-[id number] Code Onset Dates Condition S tatus SNOMED Code Problem High risk medication use Z79.899 Activ e 694178945 Problem Encounter for immunization Z23 Act essie 756193187 Problem Acquired hypothyroidism E03.9 Active 517006844 Problem 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 (current) use of anticoagulants Z79.01 Active 604170366 Assessment Diabetes E11.9 Jun, Active 850478 007 Problem Morbid obesity, unspecified obesity type E66.01 Active 381097607 Problem History of cataract surgery Z98.49 Ac tive 325417233 Problem Diabetes E11.9 Active 141238988 Problem Irregular heart beats I49.9 Active 071927567 Problem Urinary incontinence, unspecified type R32 Active 190359180 Problem Need for prophylactic vaccination and inoculation, Influen za V04.81 Active 843071052 Problem Other screening mammogram V76.12 Acti ve 37480696 Problem Unspecified viral infection, in conditions classified elsewhere and of unspecified site 079.99 Active 42790005 Problem Unspecified breast screening V76.10 A ctive 495404359 Problem Eye exam normal Z01.00 Active 2438 42343 Problem Abnormal mammogram R92.8 Active 1 64835863 Problem 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 Unknown Non Drug Allergy Jun, Unknown SOCIAL HISTORY No smoking Hx information available PLAN OF CARE VITAL SIGNS Height 64 in 2016-07-09 Weight 261.2 lbs 2016-07-09 Heart Rate 84 bpm 2016-07-09 Respiratory Rate 22 2016-07-09 BMI 44.83 kg/m2 2016-07-09 Blood pressure systolic 116 mmHg 2016-07-09 Blood pressure diastolic 78 mmHg 2016-07-09 MEDICATIONS Medication Instructions Dosage Frequency Start Date End Date Duration S tatus Warfarin Sodium 5 MG Orally Once a day 1 tablet 24h Active Walker N/A as directed Jul, Acti ve Amlodipine Besylate 5 MG Orally Once a day 1 tablet 24h Active Nexium 40 mg take 1 capsule (40 mg) by oral route once daily Oct, Active Toviaz 8 MG Orally Once a day 1 tablet 24h A ctive Lipitor 20 MG Orally Once a day 1 tablet 24h 90 days Active Lisinopril 40 MG Orally Once a day 1 tablet 24h Active Levothyroxine Sodium 175 MCG Orally Once a day 1 tablet on an empty stomach in the morning 24h 90 Active Potassium Chloride Faiza ER 10 MEQ Orally Once a day 1 tablet 24h Active Januvia 100 MG Orally Once a day 1 tablet 24h Active tramadol 50 mg by oral route 2 times a day 2 tablets 12h 25 Oct, 201 5 28 days Active Ventolin HFA 108 (90 Base) MCG/ACT Inhalation every 4 hrs 2 puffs a s needed 4h Active RESULTS Name Result Date Reference Range A1C (IN HOUSE) 2016-07-09 A1C IN HOUSE 6.5 4.3 - 5.6 % Previous A1c 6.1 Lot [id number] Exp date 04/2018 INR (IN HOUSE) 2016-07-09 INR 2.6 1.10 - 3.30 PREVIOUS INR 2.9 CURRENT COUMADIN DOSE 5 mg qd NEW COUMADIN DOSE Lot # [id number] Exp date Jul 2016 PROCEDURES Procedure Date Ordered Related Diagnosis Body Site IMMUNIZATION ADMIN, EACH ADD (please include units) Jul 09, 2016 [facility]LY [facility] VISIT ESTABLISHED PATIENT Jul 09, 2016 Office Visit, Est Pt., Level 3 Jul 09, 2016 EKG, TRACING (IN-HOUSE) 2016-07-09 At Fib controlled GLYCATED HEMOGLOBIN TEST Jul 09, 2016 PPV23 (PNEUMOVAX) Jul 09, 2016 FLUARIX QUAD P-FREE 3 AND UP .50 2015Jul 09, 2016 SINGLE IMMUNIZATION ADMIN Jul 09, 2016 [facility] Jul 09, 2016 PROTHROMBIN TIME Jul 09, 2016 VENIPUNCT, ROUTINE* Jul 09, 2016 ELECTROCARDIOGRAM, TRACING Jul 09, 2016 IMMUNIZATIONS Vaccine Route Administration Date Status PPV23 (PNEUMOVAX) IM Intramuscular Jul 09, 2016 Administered FLUARIX QUAD P-FREE 3 AND UP .50 2015 IM Intramuscular Jul 09 016 Administered
--- OUTSIDE RECORDS SUMMARY | 2020-01-28 14:46 | XMS REPORT ---
Author Author Katarina RODRIGUEZ Organization [facility] Address [address] [place] [address] Care Team Providers Care Filler Shaker Name Role Phone GEORGINA RODRIGUEZ Unavailable PROBLEMS Type Condition ICD9-CM Code RAM75-EK Code Onset Dates Condition S tatus SNOMED Code Problem Encounter for immunization Z23 Act essie 369073320 Problem Urinary incontinence, unspecified type R32 Active 306623387 Problem History of cataract surgery Z98.49 Ac tive 136578518 Problem Chronic atrial fibrillation I48.2 Ac tive 432803894 Problem Essential hypertension I10 Active 84558297 Problem Morbid obesity, unspecified obesity type E66.01 Active 695807953 Problem meterman (current) use of anticoagulants Z79.01 Active 525218656 Problem Other urinary incontinence N39.498 Act essie 399470510 Problem Irregular heart beats I49.9 Active 335984421 Problem Eye exam normal Z01.00 Active 2438 34516 Problem Cigarette nicotine dependence without complication F17.210 Active 50004705 Problem Acquired hypothyroidism E03.9 Active 907375883 Problem Abnormal mammogram R92.8 Active 1 97456646 Problem High risk medication use Z79.899 Activ e 724120258 Problem Osteoarthritis M19.90 Active 96283 5006 Problem Diabetes E11.9 Active 528364694 ALLERGIES No Information ENCOUNTERS Encounter Location Date Diagnosis [facility] [address] [facility] [id number] [address] [place] [phone] Nov, [facility] [address] [facility] [id number] [address] [place] [address] Oct, Osteoarthritis M19.90 [facility] [address] [facility] [id number] [address] [place] [address] Oct, meterman (current) use of a nticoagulants Z79.01 [facility] [address] [facility] [id number] [address] [place] [address] Sep, Osteoarthritis M19.90 [facility] [address] [facility] [id number] [address] [place] [address] Sep, [facility] [address] [facility] [id number] [address] [place] [address] Aug, Osteoarthritis M19.90 [facility] [address] [facility] [id number] [address] [place] [address] Jul, Osteoarthritis M19.90 [facility] [address] [facility] [id number] [address] [place] [address] Jul, Osteoarthritis M19.90 [facility] [address] [facility] [id number] [address] [place] [address] Jun, Diabetes E11.9 ; Encounter f or immunization Z23 ; meterman (current) use of anticoagulants Z79.01 ; Chronic atrial fibrillation I48.2 ; Osteoarthritis M19.90 ; Tobacco abuse Z72.0 and Bug bite, initial encounter W57.XXXA [facility] [address] [facility] [id number] [address] [place] [address] May, Osteoarthritis M19.90 [facility] [address] [facility] [id number] [address] [place] [address] Apr, Osteoarthritis M19.90 [facility] [address] [facility] [id number] [address] [place] [address] Mar, Chronic atrial fibrillation I48.2 [facility] [address] [id number] [address] [place] [address] Mar, [facility] [address] [facility] [id number] [address] [place] [address] Mar, Osteoarthritis M19.90 [facility] [address] [facility] [id number] [address] [place] [address] Mar, meterman (current) use of a nticoagulants Z79.01 and Chronic atrial fibrillation I48.2 [facility] [address] [id number] [address] [place] [address] Mar, Chronic atrial fibrillation I48.2 and long-term (current) use of anticoagulants Z79.01 [facility] [address] [id number] [address] [place] [address] Mar, long-term (current) use of a nticoagulants Z79.01 [facility] [address] [id number] [address] [place] [address] Mar, long-term (current) use of a nticoagulants Z79.01 [facility] [address] [id number] [address] [place] [address] Mar, Osteoarthritis M19.90 [facility] [address] [facility] [id number] [address] [place] [address] Feb, Encounter for screening mamm ogram for malignant neoplasm of breast Z12.31 [facility] [address] [id number] [address] [place] [address] Feb, Osteoarthritis M19.90 [facility] [address] [id number] [address] [place] [address] Jan, [facility] [address] [id number] [address] [place] [address] Jan, meterman (current) use of a nticoagulants Z79.01 ; Diabetes E11.9 ; Osteoarthritis M19.90 and Breast cancer screening Z12.39 [facility] [address] [id number] [address] [place] [address] Jan, Osteoarthritis M19.90 [facility] [address] [id number] [address] [place] [address] Jan, Osteoarthritis M19.90 [facility] [address] [id number] [address] [place] [address] Jan, [facility] [address] [id number] [address] [place] [address] December, Osteoarthritis M19.90 [facility] [address] [id number] [address] [place] [address] December, Osteoarthritis M19.90 [facility] [address] [id number] [facility] [id number] Nov, [facility] [address] [id number] [address] [place] [address] Nov, [facility] [address] [id number] [address] [place] [address] Nov, [facility] [address] [id number] [address] [place] [address] Nov, Diabetes E11.9 [facility] [address] [id number] [address] [place] [address] Nov, [facility] [address] [id number] [address] [place] [address] Oct, Osteoarthritis M19.90 [facility] [address] [id number] [address] [place] [address] Oct, Osteoarthritis M19.90 ; meterman (current) use of anticoagulants Z79.01 ; Diabetes E11.9 ; Cigarette nicotine dependence without complication F17.210 and Chronic atrial fibrillation I48.2 [facility] [address] [id number] [address] [place] [address] Aug, [facility] [address] [id number] [address] [place] [address] Aug, long-term (current) use of a nticoagulants Z79.01 [facility] [address] [id number] [address] [place] [address] Aug, [facility] [address] [id number] [facility] [id number] Aug, [facility] [address] [id number] [address] [place] [address] Aug, [facility] [address] [facility] [id number] [address] [place] [address] Aug, [facility] [id number] [place] [id number] Aug, [employer] [address] [place] [id number] Aug Osteoarthritis M19.90 and Essential hypertension I10 [facility] [address] [place] [id number] [address] [place] [address] Aug, Other urinary incontinence N 39.498 [facility] [address] [facility] [id number] [address] [place] [address] Jul, Osteoarthritis M19.90 [facility] [address] [address] Jun, Diabetes E11.9 ; Encounter f or immunization Z23 ; Osteoarthritis M19.90 ; long-term (current) use of anticoagulants Z79.01 ; Cigarette nicotine dependence without complication F17.210 ; Acquired hypothyroidism E03.9 ; Morbid obesity, unspecified obesity type E66.01 and Irregular heart beats I49.9 [facility] [address] [facility] [id number] [address] [place] [address] Jun, Osteoarthritis M19.90 [facility] [address] [facility] [id number] [address] [place] [address] May, Osteoarthritis M19.90 [facility] [address] [place] [id number] [address] [place] [address] May, Urinary incontinence, unspec ified type R32 [facility] [address] [facility] [id number] [address] [place] [address] May, [facility] [address] [facility] [id number] [address] [place] [address] Apr, Osteoarthritis M19.90 [facility] [address] [place] [id number] [address] [place] [address] Apr, long-term (current) use of a nticoagulants Z79.01 [facility] [address] [id number] [address] [place] [address] Apr, [facility] [address] [facility] [id number] [address] [place] [address] Apr, Osteoarthritis M19.90 [facility] [address] [facility] [id number] [address] [place] [address] Mar, Diabetes E11.9 ; Hypothyroid ism, unspecified type E03.9 ; Osteoarthritis M19.90 ; High risk medication use Z79.899 ; Cigarette nicotine dependence without complication F17.210 and Morbid obesity, unspecified obesity type E66.01 [facility] [address] [facility] [id number] [address] [place] [address] Mar, Osteoarthritis M19.90 [place] [address] [facility] [id number] [address] [place] [address] December, Osteoarthritis M19.90 [facility] [address] [facility] [id number] [address] [place] [address] December, [facility] [address] [facility] [id number] [address] [place] [address] Oct, [facility] [address] [facility] [id number] [address] [place] [phone] Oct, [facility] [address] [facility] [id number] [address] [place] [phone] Aug, [facility] [address] [facility] [id number] [address] [place] [address] Jul, [facility] [address] [facility] [id number] [address] [place] [address] Jul, [place] [address] [place] [id number] [address] [place] [address] Jul, Diabetes E11.9 ; Encounter f or immunization Z23 ; Abnormal mammogram R92.8 ; Acquired hypothyroidism E03.9 ; High risk medication use Z79.899 ; Osteoarthritis M19.90 and Cigarette nicotine dependence without complication F17.210 [facility] [address] [id number] [address] [place] [id number] Jul, [facility] [address] [id number] [address] [place] [address] Jun, Abnormal mammogram R92.8 [facility] [address] [id number] [address] [place] [address] Apr, [facility] [address] [id number] [address] [place] [address] Apr, [facility] [address] [id number] [address] [place] [address] Mar, [facility] [address] [id number] [address] [place] [address] Mar, Current use of residential ant 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 V58.61 [facility] [address] [id number] [address] [place] [address] Feb, [facility] [address] [id number] [address] [place] [phone] Jan, [facility] [address] [id number] [address] [place] [phone] December, [facility] [address] [id number] [address] [place] [phone] Nov, [facility] [address] [id number] [address] [place] [phone] Nov, [facility] [address] [id number] [address] [place] [phone] Oct, [facility] [address] [id number] [address] [place] [phone] Oct, [facility] [address] [id number] [address] [place] [phone] Oct, [facility] [address] [id number] [address] [place] [phone] Oct, [facility] [address] [id number] [address] [place] [address], [place] [address] Oct, [facility] [address] [id number] [address] [place] [address], [place] [address] Oct, [facility] [address] [id number] [address] [place] [address], [place] [address] Sep, [facility] [address] [id number] [address] [place] [address], [place] [address] Sep, [facility] [address] [id number] [address] [place] [address], [place] [address] Sep, [facility] [address] [id number] [address] [place] [address], [place] [address] Sep, [facility] [address] [id number] [address] [place] [address], [place] [address] Aug, [facility] [address] [id number] [address] [place] [address], [place] [address] Aug, [facility] [address] [id number] [address] [place] [address], [place] [address] Aug, [facility] [address] [id number] [address] [place] [address], [place] [address] Aug, [facility] [address] [id number] [address] [place] [address], [place] [address] Aug, [facility] [address] [id number] [address] [place] [address] Aug, [facility] [address] [id number] [address] [place] [address], [place] [address] Jul, [facility] [address] [id number] [address] [place] [address], [place] [address] Jul, [facility] [address] [id number] [address] [place] [address], [place] [address] Jul, [facility] [address] [id number] [address] [place] [address], [place] [address] Jul, [facility] [address] [id number] [address] [place] [address], [place] [address] Jul, [facility] [address] [id number] [address] [place] [address], [place] [address] Jul, [facility] [address] [id number] [address] [place] [address], [place] [address] Jun, [facility] [address] [id number] [address] [place] [address], [place] [address] Jun, [facility] [address] [id number] [address] [place] [address], [place] [address] Jun, [facility] [address] [id number] [address] [place] [address], [place] [address] Jun, [facility] [address] [id number] [address] [place] [address], [place] [address] Jun, [facility] [address] [id number] [address] [place] [address], [place] [address] Jun, [facility] [address] [id number] [address] [place] [address], [place] [address] Jun, [facility] [address] [id number] [address] [place] [address], [place] [address] Jun, [facility] [address] [id number] [address] [place] [address], [place] [address] Jun, [facility] [address] [id number] [address] [place] [address], [place] [address] May, [facility] [address] [id number] [address] [place] [address], [place] [address] May, [facility] [address] [id number] [address] [place] [address], [place] [address] Apr, [facility] [address] [id number] [address] [place] [address], [place] [address] Apr, [facility] [address] [id number] [facility] [place] [address] Apr, 2013 [facility] [address] [id number] [address] [place] [address], [place] [address] Apr, [facility] [address] [id number] [address] [place] [address], [place] [address] Apr, 2013 [facility] [address] [id number] [address] [place] [address], [place] [address] Apr, 2013 [facility] [address] [id number] [address] [place] [address], [place] [address] Apr, [facility] [address] [id number] [address] [place] [address], [place] [address] Apr, [facility] [address] [id number] [address] [place] [address], [place] [address] Apr, [facility] [address] [id number] [address] [place] [address], [place] [address] Apr, [facility] [address] [id number] [address] [place] [address], [place] [address] Mar, [facility] [address] [id number] [address] [place] [address], [place] [address] Mar, [facility] [address] [id number] [address] [place] [address], [place] [address] Mar, [facility] [address] [id number] [address] [place] [address], [place] [address] Mar, [facility] [address] [id number] [address] [place] [address], [place] [address] Mar, [facility] [address] [id number] [address] [place] [address], [place] [address] Mar, [facility] [address] [id number] [address] [place] [address], [place] [address] Feb, [facility] [address] [id number] [address] [place] [address], [place] [address] Feb, [facility] [address] [id number] [address] [place] [address], [place] [address] Feb, [facility] [address] [id number] [address] [place] [address], [place] [address] Feb, [facility] [address] [id number] [address] [place] [address], [place] [address] Jan, [facility] [address] [id number] [address] [place] [address], [place] [address] Jan, [facility] [address] [id number] [address] [place] [address], [place] [address] Jan, [facility] [address] [id number] [address] [place] [address], [place] [address] Jan, [facility] [address] [id number] [address] [place] [address], [place] [address] Oct, [facility] [address] [id number] [address] [place] [address], [place] [address] Oct, [facility] [address] [id number] [address] [place] [address], [place] [address] Sep, [facility] [address] [id number] [address] [place] [address], [place] [address] Sep, [facility] [address] [id number] [address] [place] [address], [place] [address] Sep, [facility] [address] [id number] [address] [place] [address], [place] [address] Sep, [facility] [address] [id number] [address] [place] [address], [place] [address] Aug, [facility] [address] [id number] [address] [place] [address], [place] [address] Aug, [facility] [address] [id number] [address] [place] [address], [place] [address] Aug, [facility] [address] [id number] [address] [place] [address], [place] [address] Aug, [facility] [address] [id number] [address] [place] [address], [place] [address] Jul, [facility] [address] [id number] [address] [place] [address], [place] [id number] 30 Jul, 2013 [facility] [address] [id number] [address] [place] [address], [place] [id number] Jul, [facility] [address] [id number] [address] [place] [address], [place] [id number] Jul, [facility] [address] [id number] [address] [place] [address], [place] [address] Jul, [facility] [address] [id number] [address] [place] [address], [place] [address] Jul, [facility] [address] [id number] [address] [place] [address], [place] [address] Jun, [facility] [address] [id number] [address] [place] [address], [place] [address] Jun, [facility] [address] [id number] [address] [place] [id number] Jun, [facility] [address] [id number] [address] [place] [id number] Jun, [facility] [address] [id number] [address] [place] [id number] Jun, [facility] [address] [id number] [address] [place] [address], [place] [address] Jun, [facility] [address] [id number] [address] [place] [address], [place] [address] May, [facility] [address] [id number] [address] [place] [id number] May, [facility] [address] [id number] [address] [place] [id number] May, [facility] [address] [id number] [address] [place] [address], [place] [address] May, [facility] [address] [id number] [address] [place] [address], [place] [address] May, [facility] [address] [id number] [address] [place] [address], [place] [address] May, [facility] [address] [id number] [address] [place] [address], [place] [address] May, [facility] [address] [id number] [address] [place] [address], [place] [address] May, [facility] [address] [id number] [address] [place] [address], [place] [id number] Apr, [facility] [address] [id number] [address] [place] [address], [place] [id number] Apr, [facility] [address] [id number] [address] [place] [address], [place] [id number] Mar, [facility] [address] [id number] [address] [place] [address], [place] [address] Mar, [facility] [address] [id number] [address] [place] [address], [place] [id number] Mar, [facility] [address] [id number] [address] [place] [address], [place] [id number] Mar, [facility] [address] [id number] [address] [place] [address], [place] [id number] Feb, [facility] [facility] [address] [id number] [address] [place] [address], [place] [address] Jan, [facility] [address] [id number] [address] [place] [address], [place] [address] December, [facility] [address] [id number] [address] [place] [address], [place] [address] December, [facility] [address] [id number] [address] [place] [address], [place] [address] December, [facility] [address] [id number] [address] [place] [address], [place] [address] Nov, [facility] [address] [id number] [address] [place] [address], [place] [address] Nov, [facility] [address] [id number] [address] [place] [address], [place] [address] Sep, [facility] [address] [id number] [address] [place] [address], [place] [address] Sep, [facility] [address] [id number] [address] [place] [address], [place] [address] Sep, [facility] [address] [id number] [address] [place] [address], [place] [address] Sep, [facility] [address] [id number] [address] [place] [address], [place] [address] Aug, [facility] [address] [id number] [address] [place] [address], [place] [address] Aug, [facility] [address] [id number] [address] [place] [address], [place] [address] Aug, [facility] [address] [id number] [address] [place] [address], [place] [address] Aug, [facility] [address] [id number] [address] [place] [address], [place] [address] Jul, [facility] [address] [id number] [address] [place] [address], [place] [address] Jul, [facility] [address] [id number] [address] [place] [address], [place] [address] Jul, [facility] [address] [id number] [address] [place] [address], [place] [address] Jul, [facility] [address] [id number] [address] [place] [address], [place] [address] Jun, [facility] [address] [id number] [address] [place] [address], [place] [address] Jun, [facility] [address] [id number] [address] [place] [address], [place] [address] Jun, [facility] [address] [id number] [address] [place] [address], [place] [address] Jun, [facility] [address] [id number] [address] [place] [address], [place] [address] May, [facility] [address] [id number] [address] [place] [address], [place] [address] May, [facility] [address] [id number] [address] [place] [address], [place] [address] May, [facility] [address] [id number] [address] [place] [address], [place] [address] May, [facility] [address] [id number] [address] [place] [address], [place] [address] May, [facility] [address] [id number] [address] [place] [address], [place] [address] 10 Apr, 2012 [facility] [address] [id number] [address] [place] [address], [place] [address] Apr, [facility] [address] [id number] [address] [place] [address], [place] [address] 07 Apr, 2012 [facility] [address] [id number] [address] [place] [address], [place] [address] 06 Apr, 2012 [facility] [address] [id number] [address] [place] [address], [place] [address] Mar, [facility] [address] [id number] [address] [place] [address], [place] [address] Mar, [facility] [address] [id number] [address] [place] [address], [place] [address] Feb, [facility] [address] [id number] [address] [place] [address], [place] [address] Feb, [facility] [address] [id number] [address] [place] [address], [place] [address] Feb, [facility] [address] [id number] [address] [place] [address], [place] [address] Jan, [facility] [address] [id number] [address] [place] [address], [place] [address] Jan, [facility] [address] [id number] [address] [place] [address], [place] [address] December, [facility] [address] [id number] [address] [place] [address], [place] [address] December, [facility] [address] [id number] [address] [place] [address], [place] [address] Nov, [facility] [address] [id number] [address] [place] [address], [place] [address] Oct, [facility] [address] [id number] [address] [place] [address], [place] [address] Oct, [facility] [address] [id number] [address] [place] [address], [place] [address] Sep, [facility] [address] [id number] [address] [place] [address], [place] [address] Sep, [facility] [address] [id number] [address] [place] [address], [place] [address] Aug, [facility] [address] [id number] [address] [place] [address], [place] [address] Aug, [facility] [address] [id number] [address] [place] [address], [place] [address] Jul, [facility] [address] [id number] [address] [place] [address], [place] [address] Jul, [facility] [address] [id number] [address] [place] [address], [place] [address] Jul, [facility] [address] [id number] [address] [place] [address], [place] [address] 07 Jun, 2011 [facility] [address] [id number] [address] [place] [address], [place] [address] 07 Jun, 2011 [facility] [address] [id number] [address] [place] [address], [place] [address] 13 May, 2011 [facility] [address] [id number] [address] [place] [address], [place] [address] 11 May, 2011 [facility] [address] [id number] [address] [place] [address], [place] [address] 11 May, 2011 [facility] [address] [id number] [address] [place] [address], [place] [address] 09 Jul, 2010 [facility] [address] [id number] [address] [place] [address], [place] [id number] 08 Jul, 2010 [facility] [address] [id number] [address] [place] [address], [place] [address] 15 Jun, 2010 [facility] [address] [id number] [address] [place] [address], [place] [address] May, [facility] [address] [id number] [address] [place] [id number] May, [facility] [address] [id number] [address] [place] [address], [place] [id number] 14 Aug, 2009 [facility] [address] [id number] [address] [place] [id number] Jul, [facility] [address] [id number] [address] [place] [address], [place] [address] Jun, [facility] [address] [id number] [address] [place] [id number] Jun, [facility] [address] [id number] [address] [place] [address], [place] [address] Jun, [facility] [address] [id number] [address] [place] [id number] Jun, [facility] [address] [facility] [id number] [address] [place] [id number] Jun, [facility] [address] [facility] [id number] [address] [place] [phone] May, [facility] [address] [facility] [id number] [address] [place] [address] Sep, IMMUNIZATIONS No Known Immunizations SOCIAL HISTORY Never Assessed REASON FOR VISIT Controlled Med Refill 04/08/2017 PLAN OF CARE VITAL SIGNS MEDICATIONS Medication Instructions Dosage Frequency Start Date End Date Duration S ron Tramadol HCl 50 MG Orally 2 times [...]
--- OUTSIDE RECORDS SUMMARY | 2020-01-28 14:46 | XMS REPORT ---
Author Author Katarina RODRIGUEZ Organization [facility] Address [address] [place] [address] Care Team Providers Care Rn Icu Name Role Phone GEORGINA RODRIGUEZ Unavailable PROBLEMS Type Condition ICD9-CM Code [id number] Code Onset Dates Condition S tatus SNOMED Code Problem Encounter for immunization Z23 Act essie 602935116 Problem Urinary incontinence, unspecified type R32 Active 577624061 Problem History of cataract surgery Z98.49 Ac tive 225190066 Problem Chronic atrial fibrillation I48.2 Ac tive 306347423 Problem Essential hypertension I10 Active 68918586 Problem Morbid obesity, unspecified obesity type E66.01 Active 915763040 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 263166734 Problem Other urinary incontinence N39.498 Act essie 633143564 Problem Irregular heart beats I49.9 Active 574284260 Problem Eye exam normal Z01.00 Active 2438 39991 Problem Cigarette nicotine dependence without complication F17.210 Active 49332497 Problem Acquired hypothyroidism E03.9 Active 232978788 Problem Abnormal mammogram R92.8 Active 1 22264601 Problem High risk medication use Z79.899 Activ e 423067056 Problem Osteoarthritis M19.90 Active 41268 5006 Problem Diabetes E11.9 Active 219413184 ALLERGIES No Information SOCIAL HISTORY Never Assessed PLAN OF CARE VITAL SIGNS MEDICATIONS No Known Medications RESULTS No Results PROCEDURES No Known [...]
--- OUTSIDE RECORDS SUMMARY | 2020-01-28 14:46 | XMS REPORT ---
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 Name Role Phone GEORGINA RODRIGUEZ Unavailable PROBLEMS Type Condition ICD9-CM Code [id number] Code Onset Dates Condition S tatus SNOMED Code Problem Encounter for immunization Z23 Act essie 885606637 Problem Urinary incontinence, unspecified type R32 Active 113714240 Problem History of cataract surgery Z98.49 Ac tive 267355803 Problem Chronic atrial fibrillation I48.2 Ac tive 505598120 Problem Essential hypertension I10 Active 66821020 Problem Morbid obesity, unspecified obesity type E66.01 Active 997392872 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 351153131 Problem Other urinary incontinence N39.498 Act essie 209151528 Problem Irregular heart beats I49.9 Active 108868643 Problem Eye exam normal Z01.00 Active 2438 26383 Problem Cigarette nicotine dependence without complication F17.210 Active 07400955 Problem Acquired hypothyroidism E03.9 Active 368907861 Problem Abnormal mammogram R92.8 Active 1 50437320 Problem High risk medication use Z79.899 Activ e 575369712 Problem Osteoarthritis M19.90 Active 33364 5006 Problem Diabetes E11.9 Active 900697712 ALLERGIES Unknown Allergies SOCIAL HISTORY No smoking Hx information available PLAN OF CARE VITAL SIGNS MEDICATIONS Unknown Medications RESULTS No Results PROCEDURES No Known procedures IMMUNIZATIONS No Known Immunizations
--- OUTSIDE RECORDS SUMMARY | 2020-01-28 14:46 | XMS REPORT ---
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
--- OUTSIDE RECORDS SUMMARY | 2020-01-28 14:46 | XMS REPORT ---
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 Name Role Phone GEORGINA RODRIGUEZ Unavailable PROBLEMS Type Condition ICD9-CM Code JXV61-BI Code Onset Dates Condition S tatus SNOMED Code Problem Encounter for immunization Z23 Act essie 997283677 Problem Urinary incontinence, unspecified type R32 Active 761587461 Problem History of cataract surgery Z98.49 Ac tive 350220555 Problem Chronic atrial fibrillation I48.2 Ac tive 348634527 Problem Essential hypertension I10 Active 60166437 Problem Morbid obesity, unspecified obesity type E66.01 Active 307840238 Problem manager 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 (current) use of anticoagulants Z79.01 Active 377083436 Problem Other urinary incontinence N39.498 Act essie 308340344 Problem Irregular heart beats I49.9 Active 302898318 Problem Eye exam normal Z01.00 Active 2438 02088 Problem Cigarette nicotine dependence without complication F17.210 Active 93313815 Problem Acquired hypothyroidism E03.9 Active 201402934 Problem Abnormal mammogram R92.8 Active 1 71671596 Problem High risk medication use Z79.899 Activ e 487356745 Problem Osteoarthritis M19.90 Active 36363 5006 Problem Diabetes E11.9 Active 485683207 ALLERGIES Substance Reaction Event Type Date Status Benadryl itching Drug Allergy Jun, Active ENCOUNTERS Encounter Location Date Diagnosis [facility] [address] [facility] [id number] [address] [place] [address] December, [facility] [address] [facility] [id number] [address] [place] [address] December, Osteoarthritis M19.90 [facility] [address] [facility] [id number] [address] [place] [address] Nov, Diabetes E11.9 ; residential ( current) use of anticoagulants Z79.01 ; Acquired hypothyroidism E03.9 ; Cigarette nicotine dependence without complication F17.210 ; Osteoarthritis M19.90 ; BMI 45.0-49.9, adult Z68.42 and Chronic atrial fibrillation I48.2 [facility] [address] [place] [id number] [address] [place] [address] Nov, Osteoarthritis M19.90 [facility] [address] [place] [id number] [address] [place] [address] Oct, Osteoarthritis M19.90 [place] [address] [address] Oct, residential (current) use of a nticoagulants Z79.01 [facility] [address] [id number] [address] [place] [address] Sep, Osteoarthritis M19.90 [facility] [address] [place] [id number] [address] [place] [address] Sep, [facility] [address] [place] [id number] [address] [place] [address] Aug, Osteoarthritis M19.90 [place] [address] [place] [id number] [address] [place] [address] Jul, Osteoarthritis M19.90 [place] [address] [place] [id number] [address] [place] [address] Jul, Osteoarthritis M19.90 [place] [address] [place] [id number] [address] [place] [address] Jun, Diabetes E11.9 ; Encounter f or immunization Z23 ; manager 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 (current) use of anticoagulants Z79.01 ; Chronic atrial fibrillation I48.2 ; Osteoarthritis M19.90 ; Tobacco abuse Z72.0 and Bug bite, initial encounter W57.XXXA [facility] [address] [place] [place] [id number] [address] [place] [address] May, Osteoarthritis M19.90 [place] [address] [place] [id number] [address] [place] [address] Apr, Osteoarthritis M19.90 [facility] [address] [id number] [address] [place] [address] Mar, Chronic atrial fibrillation I48.2 [facility] [address] [id number] [address] [place] [address] Mar, [facility] [address] [id number] [address] [place] [address] Mar, Osteoarthritis M19.90 [facility] [address] [id number] [address] [place] [address] Mar, residential (current) use of a nticoagulants Z79.01 and Chronic atrial fibrillation I48.2 [facility] [address] [id number] [address] [place] [address] Mar, Chronic atrial fibrillation I48.2 and manager 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 (current) use of anticoagulants Z79.01 [facility] [address] [id number] [address] [place] [address] Mar, manager 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 (current) use of a nticoagulants Z79.01 [facility] [address] [id number] [address] [place] [address] Mar, manager 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 (current) use of a nticoagulants Z79.01 [facility] [address] [id number] [address] [place] [address] Mar, Osteoarthritis M19.90 [facility] [address] [id number] [address] [place] [address] Feb, Encounter for screening mamm ogram for malignant neoplasm of breast Z12.31 [facility] [address] [id number] [address] [place] [address] Feb, Osteoarthritis M19.90 [facility] [address] [id number] [address] [place] [address] Jan, [facility] [address] [id number] [address] [place] [address] Jan, manager 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 (current) use of a nticoagulants Z79.01 ; Diabetes E11.9 ; Osteoarthritis M19.90 and Breast cancer screening Z12.39 [facility] [address] [id number] [address] [place] [address] Jan, Osteoarthritis M19.90 [facility] [address] [id number] [address] [place] [address] Jan, Osteoarthritis M19.90 [facility] [address] [id number] [address] [place] [address] Jan, [facility] [address] [id number] [address] [place] [address] December, Osteoarthritis M19.90 [facility] [address] [id number] [address] [place] [address] December, Osteoarthritis M19.90 [facility] [id number] [place] [id number] Nov, [facility] [address] [id number] [address] [place] [address] Nov, [facility] [address] [id number] [address] [place] [address] Nov, [facility] [address] [facility] [id number] [address] [place] [address] Nov, Diabetes E11.9 [facility] [address] [id number] [address] [place] [address] Nov, [facility] [address] [facility] [id number] [address] [place] [address] Oct, Osteoarthritis M19.90 [facility] [address] [facility] [id number] [address] [place] [address] Oct, Osteoarthritis M19.90 ; residential (current) use of anticoagulants Z79.01 ; Diabetes E11.9 ; Cigarette nicotine dependence without complication F17.210 and Chronic atrial fibrillation I48.2 [facility] [address] [place] [id number] [address] [place] [address] Aug, [facility] [address] [address] Aug, manager 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 (current) use of a nticoagulants Z79.01 [facility] [address] [place] [id number] [place] [address] Aug, [facility] [address] [place] [id number] Aug, [place] [address] [address] Aug, [place] [address] [address] Aug, [facility] [address] [id number] Aug, [facility] [address] [place] [id number] Aug Osteoarthritis M19.90 and Essential hypertension I10 [place] [address] [address] Aug, Other urinary incontinence N 39.498 [place] [address] [address] Jul, Osteoarthritis M19.90 [place] [address] [address] Jun, Diabetes E11.9 ; Encounter f or immunization Z23 ; Osteoarthritis M19.90 ; residential (current) use of anticoagulants Z79.01 ; Cigarette nicotine dependence without complication F17.210 ; Acquired hypothyroidism E03.9 ; Morbid obesity, unspecified obesity type E66.01 and Irregular heart beats I49.9 [place] [address] [place] [id number] [address] [place] [address] Jun, Osteoarthritis M19.90 [place] [address] [facility] [id number] [address] [place] [address] May, Osteoarthritis M19.90 [facility] [address] [facility] [id number] [address] [place] [address] May, Urinary incontinence, unspec ified type R32 [facility] [address] [facility] [id number] [address] [place] [address] May, [facility] [address] [facility] [id number] [address] [place] [address] Apr, Osteoarthritis M19.90 [facility] [address] [facility] [id number] [address] [place] [address] Apr, residential (current) use of a nticoagulants Z79.01 [facility] [address] [facility] [id number] [address] [place] [address] Apr, [facility] [address] [facility] [id number] [address] [place] [address] Apr, Osteoarthritis M19.90 [facility] [address] [facility] [id number] [address] [place] [address] Mar, Diabetes E11.9 ; Hypothyroid ism, unspecified type E03.9 ; Osteoarthritis M19.90 ; High risk medication use Z79.899 ; Cigarette nicotine dependence without complication F17.210 and Morbid obesity, unspecified obesity type E66.01 [facility] [address] [facility] [id number] [address] [place] [address] Mar, Osteoarthritis M19.90 [facility] [address] [facility] [id number] [address] [place] [address] December, Osteoarthritis M19.90 [facility] [address] [facility] [id number] [address] [place] [address] December, [facility] [address] [facility] [id number] [address] [place] [address] Oct, [facility] [address] [facility] [id number] [address] [place] [address] Oct, [facility] [address] [id number] [address] [place] [address] Aug, [facility] [address] [facility] [id number] [address] [place] [address] Jul, [facility] [address] [id number] [address] [place] [address] Jul, [facility] [address] [id number] [address] [place] [address] Jul, Diabetes E11.9 ; Encounter f or immunization Z23 ; Abnormal mammogram R92.8 ; Acquired hypothyroidism E03.9 ; High risk medication use Z79.899 ; Osteoarthritis M19.90 and Cigarette nicotine dependence without complication F17.210 [facility] [address] [facility] [id number] [address] [place] [address] Jul, [facility] [address] [id number] [address] [place] [address] Jun, Abnormal mammogram R92.8 [facility] [address] [id number] [address] [place] [address] Apr, [facility] [address] [id number] [address] [place] [phone] Apr, [facility] [address] [id number] [address] [place] [address] Mar, [facility] [address] [id number] [address] [place] [address] Mar, Current use of mcc ant 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 V58.61 [facility] [address] [id number] [address] [place] [address] Feb, [facility] [address] [id number] [address] [place] [address] Jan, [facility] [address] [facility] [id number] [address] [place] [address] December, [facility] [address] [id number] [address] [place] [address], [place] [address] Nov, [facility] [address] [id number] [address] [place] [address], [place] [address] Nov, [facility] [address] [id number] [address] [place] [address], [place] [address] Oct, [facility] [address] [id number] [address] [place] [address], [place] [address] Oct, [facility] [address] [id number] [address] [place] [address], [place] [address] Oct, [facility] [address] [id number] [address] [place] [address], [place] [address] Oct, [facility] [address] [id number] [address] [place] [address], [place] [address] Oct, [facility] [address] [id number] [address] [place] [address], [place] [address] Oct, [facility] [address] [id number] [address] [place] [address], [place] [address] Sep, [facility] [address] [id number] [address] [place] [address], [place] [address] Sep, [facility] [address] [id number] [address] [place] [address], [place] [address] Sep, [facility] [address] [id number] [address] [place] [address], [place] [address] Sep, [facility] [address] [id number] [address] [place] [address], [place] [address] Aug, [facility] [address] [id number] [address] [place] [address], [place] [address] Aug, [facility] [address] [id number] [address] [place] [address], [place] [address] Aug, [facility] [address] [id number] [address] [place] [address], [place] [address] 16 Aug, 2014 [facility] [address] [id number] [address] [place] [address], [place] [address] Aug, [facility] [address] [id number] [address] [place] [address], [place] [address] Aug, [facility] [address] [id number] [address] [place] [address], [place] [address] Jul, [facility] [address] [id number] [address] [place] [address], [place] [address] Jul, [facility] [address] [id number] [address] [place] [address], [place] [address] Jul, [facility] [address] [id number] [address] [place] [address], [place] [address] Jul, [facility] [address] [id number] [address] [place] [address], [place] [address] Jul, [facility] [address] [id number] [address] [place] [address], [place] [address] Jul, [facility] [address] [id number] [address] [place] [address], [place] [address] Jun, [facility] [address] [id number] [address] [place] [address], [place] [address] Jun, [facility] [address] [id number] [address] [place] [address], [place] [address] Jun, [facility] [address] [id number] [address] [place] [address], [place] [address] Jun, [facility] [address] [id number] [address] [place] [address], [place] [address] Jun, [facility] [address] [id number] [address] [place] [address], [place] [address] Jun, [facility] [address] [id number] [address] [place] [address], [place] [address] Jun, [facility] [address] [id number] [address] [place] [address], [place] [address] Jun, [facility] [address] [id number] [address] [place] [address], [place] [address] Jun, [facility] [address] [id number] [address] [place] [address], [place] [address] May, [facility] [address] [id number] [address] [place] [address], [place] [address] May, [facility] [address] [id number] [address] [place] [address], [place] [address] Apr, [facility] [address] [id number] [address] [place] [address], [place] [address] Apr, [facility] [address] [id number] [address] [place] [address], [place] [address] Apr, [facility] [address] [id number] [address] [place] [address], [place] [address] Apr, [facility] [address] [id number] [address] [place] [address], [place] [address] Apr, [facility] [address] [id number] [address] [place] [address], [place] [address] Apr, [facility] [address] [id number] [address] [place] [address], [place] [address] Apr, [facility] [address] [id number] [address] [place] [address], [place] [address] Apr, [facility] [address] [id number] [address] [place] [address], [place] [address] Apr, [facility] [address] [id number] [address] [place] [address], [place] [address] Apr, [facility] [address] [id number] [address] [place] [address], [place] [address] Mar, [facility] [address] [id number] [address] [place] [address], [place] [address] Mar, [facility] [address] [id number] [address] [place] [address], [place] [address] Mar, [facility] [address] [id number] [address] [place] [address], [place] [address] Mar, [facility] [address] [id number] [address] [place] [address], [place] [address] Mar, [facility] [address] [id number] [address] [place] [address], [place] [address] Mar, [facility] [address] [id number] [address] [place] [address], [place] [address] Feb, [facility] [address] [id number] [address] [place] [address], [place] [address] Feb, [facility] [address] [id number] [address] [place] [address], [place] [address] Feb, [facility] [address] [id number] [address] [place] [address], [place] [address] Feb, [facility] [address] [id number] [address] [place] [address], [place] [address] Jan, [facility] [address] [id number] [address] [place] [address], [place] [address] Jan, [facility] [address] [id number] [address] [place] [address], [place] [address] Jan, [facility] [address] [id number] [address] [place] [address], [place] [address] Jan, [facility] [address] [id number] [address] [place] [address], [place] [address] Oct, [facility] [address] [id number] [address] [place] [address], [place] [address] Oct, [facility] [address] [id number] [address] [place] [address], [place] [address] Sep, [facility] [address] [id number] [address] [place] [address], [place] [address] Sep, [facility] [address] [id number] [address] [place] [address], [place] [address] Sep, [facility] [address] [id number] [address] [place] [address], [place] [address] Sep, [facility] [address] [id number] [address] [place] [address], [place] [address] Aug, [facility] [address] [id number] [address] [place] [address], [place] [address] Aug, [facility] [address] [id number] [address] [place] [address], [place] [address] Aug, [facility] [address] [id number] [address] [place] [address], [place] [address] Aug, [facility] [address] [id number] [address] [place] [address], [place] [address] Jul, [facility] [address] [id number] [address] [place] [address], [place] [address] Jul, [facility] [address] [id number] [address] [place] [address], [place] [address] Jul, [facility] [address] [id number] [address] [place] [address], [place] [address] Jul, [facility] [address] [id number] [address] [place] [address], [place] [address] Jul, [facility] [address] [id number] [address] [place] [address], [place] [address] Jul, [facility] [address] [id number] [address] [place] [address], [place] [address] Jun, [facility] [address] [id number] [address] [place] [address], [place] [address] Jun, [facility] [address] [id number] [address] [place] [address], [place] [address] Jun, [facility] [address] [id number] [address] [place] [address], [place] [address] Jun, [facility] [address] [id number] [address] [place] [address], [place] [address] Jun, [facility] [address] [id number] [address] [place] [address], [place] [address] Jun, [facility] [address] [id number] [address] [place] [address], [place] [address] May, [facility] [address] [id number] [address] [place] [address], [place] [address] May, [facility] [address] [id number] [address] [place] [address], [place] [address] May, [facility] [address] [id number] [address] [place] [address], [place] [address] May, [facility] [address] [id number] [address] [place] [address], [place] [address] May, [facility] [address] [id number] [address] [place] [address], [place] [address] May, [facility] [address] [id number] [address] [place] [address], [place] [address] May, [facility] [address] [id number] [address] [place] [address], [place] [address] May, [facility] [address] [id number] [address] [place] [address], [place] [address] 30 Apr, 2013 [facility] [address] [id number] [address] [place] [address], [place] [address] Apr, [facility] [address] [id number] [address] [place] [address], [place] [address] Mar, [facility] [address] [id number] [address] [place] [address], [place] [address] Mar, [facility] [address] [id number] [address] [place] [address], [place] [address] Mar, [facility] [address] [id number] [address] [place] [address], [place] [address] Mar, [facility] [address] [id number] [address] [place] [address], [place] [address] Feb, [facility] [address] [id number] [address] [place] [address], [place] [address] Jan, [facility] [address] [id number] [address] [place] [address], [place] [address] December, [facility] [address] [id number] [address] [place] [address], [place] [address] December, [facility] [address] [id number] [address] [place] [address], [place] [address] December, [facility] [address] [id number] [address] [place] [address], [place] [address] Nov, [facility] [address] [id number] [address] [place] [address], [place] [address] Nov, [facility] [address] [id number] [address] [place] [address], [place] [address] 14 Sep, 2012 [facility] [address] [id number] [address] [place] [address], [place] [address] 14 Sep, 2012 [facility] [address] [id number] [address] [place] [address], [place] [address] 14 Sep, 2012 [facility] [address] [id number] [address] [place] [address], [place] [address] Sep, [facility] [address] [id number] [address] [place] [address], [place] [address] Aug, [facility] [address] [id number] [address] [place] [address], [place] [address] Aug, [facility] [address] [id number] [address] [place] [address], [place] [address] Aug, [facility] [address] [id number] [address] [place] [address], [place] [address] Aug, [facility] [address] [id number] [address] [place] [address], [place] [address] Jul, [facility] [address] [id number] [address] [place] [address], [place] [address] Jul, [facility] [address] [id number] [address] [place] [address], [place] [address] Jul, [facility] [address] [id number] [address] [place] [address], [place] [address] Jul, [facility] [address] [id number] [address] [place] [address], [place] [address] Jun, [facility] [address] [id number] [address] [place] [address], [place] [address] Jun, [facility] [address] [id number] [address] [place] [address], [place] [address] Jun, [facility] [address] [id number] [address] [place] [address], [place] [address] Jun, [facility] [address] [id number] [address] [place] [address] May, [facility] [address] [id number] [address] [place] [address], [place] [address] May, [facility] [address] [id number] [address] [place] [address] May, [facility] [address] [id number] [address] [place] [address], [place] [address] May, [facility] [address] [id number] [address] [place] [address], [place] [address] May, [facility] [address] [id number] [address] [place] [address], [place] [address] Apr, [facility] [address] [id number] [address] [place] [address], [place] [address] 08 Apr, 2012 [facility] [address] [id number] [address] [place] [address], [place] [address] 07 Apr, 2012 [facility] [address] [id number] [address] [place] [address], [place] [address] 06 Apr, 2012 [facility] [address] [id number] [address] [place] [address], [place] [address] Mar, [facility] [address] [id number] [address] [place] [address], [place] [address] Mar, [facility] [address] [id number] [address] [place] [address], [place] [address] Feb, [facility] [address] [id number] [address] [place] [address], [place] [address] Feb, [facility] [address] [id number] [address] [place] [address], [place] [address] Feb, [facility] [address] [id number] [address] [place] [address], [place] [address] Jan, [facility] [address] [id number] [address] [place] [address], [place] [address] Jan, [facility] [address] [id number] [address] [place] [address], [place] [address] December, [facility] [address] [id number] [address] [place] [address], [place] [address] December, [facility] [address] [id number] [address] [place] [address], [place] [address] Nov, [facility] [address] [id number] [address] [place] [address], [place] [address] Oct, [facility] [address] [id number] [address] [place] [address], [place] [address] Oct, [facility] [address] [id number] [address] [place] [address], [place] [address] Sep, [facility] [address] [id number] [address] [place] [address], [place] [address] Sep, [facility] [address] [id number] [address] [place] [address], [place] [address] Aug, [facility] [address] [id number] [address] [place] [address], [place] [address] Aug, [facility] [address] [id number] [address] [place] [address], [place] [address] Jul, [facility] [address] [id number] [address] [place] [address], [place] [address] Jul, [facility] [address] [id number] [address] [place] [address], [place] [address] Jul, [facility] [address] [id number] [address] [place] [address], [place] [address] Jun, [facility] [address] [id number] [address] [place] [address], [place] [address] Jun, [facility] [address] [id number] [address] [place] [address], [place] [address] May, [facility] [address] [id number] [address] [place] [address], [place] [address] May, [facility] [address] [id number] [address] [place] [address], [place] [address] May, [facility] [address] [id number] [address] [place] [address], [place] [address] Jul, [facility] [address] [id number] [address] [place] [address], [place] [address] Jul, [facility] [address] [id number] [address] [place] [address], [place] [address] 15 Jun, 2010 [facility] [address] [id number] [address] [place] [address], [place] [address] May, [facility] [address] [id number] [address] [place] [address] May, [facility] [address] [id number] [address] [place] [address] Aug, [facility] [address] [id number] [address] [place] [address] Jul, [facility] [address] [id number] [address] [place] [address] Jun, [facility] [address] [id number] [address] [place] [address] Jun, [facility] [address] [id number] [address] [place] [address] Jun, [facility] [address] [id number] [address] [place] [address] Jun, [facility] [address] [facility] [id number] [address] [place] [address] Jun, [facility] [address] [id number] [address] [place] [address] May, [facility] [address] [id number] [address] [place] [address] Sep, IMMUNIZATIONS Vaccine Route Administration Date Status FLUARIX QUAD (3 AND UP) 2016 IM Intramuscular Jun 15, 2017 Ad ministered SOCIAL HISTORY Never Assessed REASON FOR VISIT Diabetes, PT had bed bugs months ago and treated her house but she still has bit es all over her body and would like some cream to treat it-[facility] PLAN OF CARE Activity Details Follow Up 3 Months Reason:DM VITAL SIGNS Height 64 in 2017-06-15 Weight 264.7 lbs 2017-06-15 Temperature 97.7 degrees Fahrenheit 2017-06-15 Heart Rate 84 bpm 2017-06-15 Respiratory Rate 18 2017-06-15 BMI 45.43 kg/m2 2017-06-15 Blood pressure systolic 132 mmHg 2017-06-15 Blood pressure diastolic 72 mmHg 2017-06-15 MEDICATIONS Medication Instructions Dosage Frequency Start Date End Date Duration S tatus Ventolin HFA 108 (90 Base) MCG/ACT Inhalation every 4 hrs 2 puffs a s needed 4h Active Potassium Chloride Faiza ER 10 MEQ Orally Once a day 1 tablet 24h 90 days Active Tramadol HCl 50 MG Orally 2 times a day 2 tablets 12h Jul, 28 days Active Accu-Chek Active ... .... 12h Nov, Active Januvia 100 MG Orally Once a day 1 tablet 24h 90 day s Active Toviaz 8 MG Orally Once a day 1 tablet 24h Aug, Not-Taking PredniSONE 20 mg Orally Once a day 1 tablet 24h Jun, Jun, 05 days Active Lisinopril 40 MG Orally Once a day 1 tablet 24h 90 d ays Active Levothyroxine Sodium 175 MCG Orally Once a day 1 tablet on an empty stomach in the morning 24h 90 days Active Nexium 40 MG Orally Once a day 1 capsule 24h Oct, 90 days Active Furosemide 40 mg Orally Once a day 1 tablet 24h 30 d ays Active Walker N/A as directed Jul, Not- Taking Amlodipine Besylate 5 MG Orally Once a day 1 tablet 24h 90 days Active Warfarin Sodium 5 mg Orally Once a day 1.5 tablets M,W,F. 1 tab Gomez, Tu, Th, Sat. 24h Active Norvasc 5 TAKE ONE TABLET BY MOUTH DAILY 90 Not-Taking Breo Ellipta 100-25 MCG/INH Inhalation Once a day 1 puff 24h Jun Active Lorcet 5-325 MG Orally every 8 hrs 1 tablet as needed 8h December, 17 30 days Not-Taking Lipitor 20 MG Orally Once a day 1 tablet 24h 90 days Active RESULTS Name Result Date Reference Range A1C (IN HOUSE) 2017-06-15 A1C IN HOUSE 6.2 4.3 - 5.6 % Previous A1c 6.2 Lot [id number] Exp date 02/2019 INR (IN HOUSE) 2017-06-15 INR 3.1 1.10 - 3.30 PREVIOUS INR 2.0 CURRENT COUMADIN DOSE 5mg NEW COUMADIN DOSE Lot # [id number] Exp date 08/2017 PROCEDURES Procedure Date Ordered Result Body Site PROTHROMBIN TIME Jun 15, 2017 GLYCATED HEMOGLOBIN TEST Jun 15, 2017 SINGLE IMMUNIZATION ADMIN Jun 15, 2017 FLUARIX QUAD (3 AND UP) 2017 Jun 15, 2017 [facility] VISIT ESTABLISHED PATIENT Jun 15, 2017 INSTRUCTIONS MEDICATIONS ADMINISTERED No Known Medications [...]
--- OUTSIDE RECORDS SUMMARY | 2020-01-28 14:46 | XMS REPORT ---
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 Name Role Phone GEORGINA RODRIGUEZ Unavailable PROBLEMS Type Condition ICD9-CM Code TTS26-ES Code Onset Dates Condition S tatus SNOMED Code Problem Encounter for immunization Z23 Act essie 099875087 Problem Urinary incontinence, unspecified type R32 Active 580506323 Problem History of cataract surgery Z98.49 Ac tive 180222793 Problem Chronic atrial fibrillation I48.2 Ac tive 823802817 Problem Essential hypertension I10 Active 73769553 Problem Morbid obesity, unspecified obesity type E66.01 Active 310059051 Problem 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.01 Active 412727090 Problem Other urinary incontinence N39.498 Act essie 116703022 Problem Irregular heart beats I49.9 Active 275595384 Problem Eye exam normal Z01.00 Active 2438 05009 Problem Cigarette nicotine dependence without complication F17.210 Active 64433812 Problem Acquired hypothyroidism E03.9 Active 937660612 Problem Abnormal mammogram R92.8 Active 1 15484847 Problem High risk medication use Z79.899 Activ e 318904787 Problem Osteoarthritis M19.90 Active 27094 5006 Problem Diabetes E11.9 Active 948416745 ALLERGIES No Information ENCOUNTERS Encounter Location Date Diagnosis [facility] [address] [facility] [id number] [address] [place] [phone] Nov, [facility] [address] [facility] [id number] [address] [place] [phone] Oct, Osteoarthritis M19.90 [facility] [address] [facility] [id number] [address] [place] [phone] Oct, 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 card tender (current) use of a nticoagulants Z79.01 [facility] [address] [facility] [id number] [address] [place] [phone] Sep, Osteoarthritis M19.90 [facility] [address] [facility] [id number] [address] [place] [phone] Sep, [facility] [address] [facility] [id number] [address] [place] [address] Aug, Osteoarthritis M19.90 [facility] [address] [facility] [id number] [address] [place] [phone] Jul, Osteoarthritis M19.90 [facility] [address] [facility] [id number] [address] [place] [phone] Jul, Osteoarthritis M19.90 [facility] [address] 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 [id number] [address] [place] [phone] May, Osteoarthritis M19.90 [facility] [address] [facility] [id number] [address] [place] [phone] Apr, Osteoarthritis M19.90 [facility] [address] [facility] [id number] [address] [place] [phone] Mar, Chronic atrial fibrillation I48.2 [facility] [address] [id number] [address] [place] [phone] Mar, [facility] [address] [facility] [id number] [address] [place] [id number] Mar, Osteoarthritis M19.90 [facility] [address] [facility] [id number] [address] [place] [phone] Mar, 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 card tender (current) use of a nticoagulants Z79.01 and Chronic atrial fibrillation I48.2 [facility] [address] [id number] [address] [place] [phone] Mar, Chronic atrial fibrillation I48.2 and MCC (current) use of anticoagulants Z79.01 [facility] [address] [id number] [address] [place] [phone] Mar, MCC (current) use of a nticoagulants Z79.01 [facility] [address] [id number] [address] [place] [phone] Mar, MCC (current) use of a nticoagulants Z79.01 [facility] [address] [id number] [address] [place] [phone] Mar, Osteoarthritis M19.90 [facility] [address] [facility] [id number] [address] [place] [phone] Feb, Encounter for screening mamm ogram for malignant neoplasm of breast Z12.31 [facility] [address] [id number] [address] [place] [phone] Feb, Osteoarthritis M19.90 [facility] [address] [id number] [address] [place] [phone] Jan, [facility] [address] [id number] [address] [place] [phone] Jan, 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 card tender (current) use of a nticoagulants Z79.01 ; Diabetes E11.9 ; Osteoarthritis M19.90 and Breast cancer screening Z12.39 [facility] [address] [id number] [address] [place] [phone] Jan, Osteoarthritis M19.90 [facility] [address] [id number] [address] [place] [phone] Jan, Osteoarthritis M19.90 [facility] [address] [id number] [address] [place] [phone] Jan, [facility] [address] [id number] [address] [place] [phone] December, Osteoarthritis M19.90 [facility] [address] [id number] [address] [place] [phone] December, Osteoarthritis M19.90 [facility] [address] [id number] [facility] [id number] Nov, [facility] [address] [id number] [address] [place] [phone] Nov, [facility] [address] [id number] [address] [place] [phone] Nov, [facility] [address] [id number] [address] [place] [phone] Nov, Diabetes E11.9 [facility] [address] [id number] [address] [place] [phone] Nov, [facility] [address] [id number] [address] [place] [phone] Oct, Osteoarthritis M19.90 [facility] [address] [id number] [address] [place] [phone] Oct, Osteoarthritis M19.90 ; 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.01 ; Diabetes E11.9 ; Cigarette nicotine dependence without complication F17.210 and Chronic atrial fibrillation I48.2 [facility] [address] [id number] [address] [place] [phone] Aug, [facility] [address] [id number] [address] [place] [phone] Aug, MCC (current) use of a nticoagulants Z79.01 [facility] [address] [id number] [address] [place] [phone] Aug, [facility] [address] [id number] [facility] [id number] Aug, [facility] [address] [id number] [address] [place] [phone] Aug, [facility] [address] [facility] [id number] [address] [place] [phone] Aug, [facility] [id number] [place] [id number] Aug, [facility] [address] [place] [id number] Aug Osteoarthritis M19.90 and Essential hypertension I10 [facility] [address] [place] [id number] [address] [place] [address] Aug, Other urinary incontinence N 39.498 [facility] [address] [facility] [id number] [address] [place] [phone] Jul, Osteoarthritis M19.90 [facility] [address] [address] Jun, Diabetes E11.9 ; Encounter f or immunization Z23 ; Osteoarthritis M19.90 ; MCC (current) use of anticoagulants Z79.01 ; Cigarette nicotine dependence without complication F17.210 ; Acquired hypothyroidism E03.9 ; Morbid obesity, unspecified obesity type E66.01 and Irregular heart beats I49.9 [facility] [address] [facility] [id number] [address] [place] [phone] Jun, Osteoarthritis M19.90 [facility] [address] [facility] [id number] [address] [place] [phone] May, Osteoarthritis M19.90 [facility] [address] [place] [id number] [address] [place] [phone] May, Urinary incontinence, unspec ified type R32 [facility] [address] [facility] [id number] [address] [place] [phone] May, [facility] [address] [facility] [id number] [address] [place] [phone] Apr, Osteoarthritis M19.90 [facility] [address] [place] [id number] [address] [place] [phone] Apr, MCC (current) use of a nticoagulants Z79.01 [facility] [address] [id number] [address] [place] [phone] Apr, [facility] [address] [facility] [id number] [address] [place] [phone] Apr, Osteoarthritis M19.90 [facility] [address] [facility] [id number] [address] [place] [phone] Mar, Diabetes E11.9 ; Hypothyroid ism, unspecified type E03.9 ; Osteoarthritis M19.90 ; High risk medication use Z79.899 ; Cigarette nicotine dependence without complication F17.210 and Morbid obesity, unspecified obesity type E66.01 [facility] [address] [facility] [id number] [address] [place] [phone] Mar, Osteoarthritis M19.90 [place] [address] [facility] [id number] [address] [place] [phone] December, Osteoarthritis M19.90 [facility] [address] [facility] [id number] [address] [place] [phone] December, [facility] [address] [facility] [id number] [address] [place] [phone] Oct, [facility] [address] [facility] [id number] [address] [place] [phone] Oct, [facility] [address] [facility] [id number] [address] [place] [phone] Aug, [facility] [address] [facility] [id number] [address] [place] [phone] Jul, [facility] [address] [facility] [id number] [address] [place] [phone] Jul, [place] [address] [place] [id number] [address] [place] [phone] Jul, Diabetes E11.9 ; Encounter f or immunization Z23 ; Abnormal mammogram R92.8 ; Acquired hypothyroidism E03.9 ; High risk medication use Z79.899 ; Osteoarthritis M19.90 and Cigarette nicotine dependence without complication F17.210 [facility] [address] [id number] [address] [place] [phone] Jul, [facility] [address] [id number] [address] [place] [phone] Jun, Abnormal mammogram R92.8 [facility] [address] [id number] [address] [place] [phone] Apr, [facility] [address] [id number] [address] [place] [phone] Apr, [facility] [address] [id number] [address] [place] [phone] Mar, [facility] [address] [id number] [address] [place] [phone] Mar, Current use of group home ant 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 V58.61 [facility] [address] [id number] [address] [place] [phone] Feb, [facility] [address] [id number] [address] [place] [phone] Jan, [facility] [address] [id number] [address] [place] [phone] December, [facility] [address] [id number] [address] [place] [phone] Nov, [facility] [address] [id number] [address] [place] [phone] Nov, [facility] [address] [id number] [address] [place] [phone] Oct, [facility] [address] [id number] [address] [place] [phone] Oct, [facility] [address] [id number] [address] [place] [phone] Oct, [facility] [address] [id number] [address] [place] [phone] Oct, [facility] [address] [id number] [address] [place] [address], [place] [address] Oct, [facility] [address] [id number] [address] [place] [address], [place] [phone] Oct, [facility] [address] [id number] [address] [place] [address], [place] [address] Sep, [facility] [address] [id number] [address] [place] [address], [place] [address] Sep, [facility] [address] [id number] [address] [place] [address], [place] [address] Sep, [facility] [address] [id number] [address] [place] [address], [place] [address] Sep, [facility] [address] [id number] [address] [place] [address], [place] [address] Aug, [facility] [address] [id number] [address] [place] [address], [place] [address] Aug, [facility] [address] [id number] [address] [place] [address], [place] [address] Aug, [facility] [address] [id number] [address] [place] [address], [place] [address] Aug, [facility] [address] [id number] [address] [place] [address], [place] [address] Aug, [facility] [address] [id number] [address] [place] [phone] Aug, [facility] [address] [id number] [address] [place] [address], [place] [address] Jul, [facility] [address] [id number] [address] [place] [address], [place] [address] Jul, [facility] [address] [id number] [address] [place] [address], [place] [address] Jul, [facility] [address] [id number] [address] [place] [address], [place] [address] Jul, [facility] [address] [id number] [address] [place] [address], [place] [address] Jul, [facility] [address] [id number] [address] [place] [address], [place] [address] Jul, [facility] [address] [id number] [address] [place] [address], [place] [address] Jun, [facility] [address] [id number] [address] [place] [address], [place] [address] Jun, [facility] [address] [id number] [address] [place] [address], [place] [address] Jun, [facility] [address] [id number] [address] [place] [address], [place] [address] Jun, [facility] [address] [id number] [address] [place] [address], [place] [address] Jun, [facility] [address] [id number] [address] [place] [address], [place] [address] Jun, [facility] [address] [id number] [address] [place] [address], [place] [address] Jun, [facility] [address] [id number] [address] [place] [address], [place] [address] Jun, [facility] [address] [id number] [address] [place] [address], [place] [address] Jun, [facility] [address] [id number] [address] [place] [address], [place] [address] May, [facility] [address] [id number] [address] [place] [address], [place] [address] May, [facility] [address] [id number] [address] [place] [address], [place] [address] Apr, [facility] [address] [id number] [address] [place] [address], [place] [address] Apr, [facility] [address] [id number] [facility] [place] [address] Apr, 2013 [facility] [address] [id number] [address] [place] [address], [place] [address] Apr, [facility] [address] [id number] [address] [place] [address], [place] [address] Apr, 2013 [facility] [address] [id number] [address] [place] [address], [place] [address] Apr, 2013 [facility] [address] [id number] [address] [place] [address], [place] [address] Apr, [facility] [address] [id number] [address] [place] [address], [place] [address] Apr, [facility] [address] [id number] [address] [place] [address], [place] [address] Apr, [facility] [address] [id number] [address] [place] [address], [place] [address] Apr, [facility] [address] [id number] [address] [place] [address], [place] [address] Mar, [facility] [address] [id number] [address] [place] [address], [place] [address] Mar, [facility] [address] [id number] [address] [place] [address], [place] [address] Mar, [facility] [address] [id number] [address] [place] [address], [place] [address] Mar, [facility] [address] [id number] [address] [place] [address], [place] [address] Mar, [facility] [address] [id number] [address] [place] [address], [place] [address] Mar, [facility] [address] [id number] [address] [place] [address], [place] [address] Feb, [facility] [address] [id number] [address] [place] [address], [place] [address] Feb, [facility] [address] [id number] [address] [place] [address], [place] [address] Feb, [facility] [address] [id number] [address] [place] [address], [place] [address] Feb, [facility] [address] [id number] [address] [place] [address], [place] [address] Jan, [facility] [address] [id number] [address] [place] [address], [place] [address] Jan, [facility] [address] [id number] [address] [place] [address], [place] [address] Jan, [facility] [address] [id number] [address] [place] [address], [place] [address] Jan, [facility] [address] [id number] [address] [place] [address], [place] [address] Oct, [facility] [address] [id number] [address] [place] [address], [place] [address] Oct, [facility] [address] [id number] [address] [place] [address], [place] [address] Sep, [facility] [address] [id number] [address] [place] [address], [place] [address] Sep, [facility] [address] [id number] [address] [place] [address], [place] [address] Sep, [facility] [address] [id number] [address] [place] [address], [place] [address] Sep, [facility] [address] [id number] [address] [place] [address], [place] [address] Aug, [facility] [address] [id number] [address] [place] [address], [place] [address] Aug, [facility] [address] [id number] [address] [place] [address], [place] [address] Aug, [facility] [address] [id number] [address] [place] [address], [place] [address] Aug, [facility] [address] [id number] [address] [place] [address], [place] [address] Jul, [facility] [address] [id number] [address] [place] [address], [place] [address] 30 Jul, 2013 [facility] [address] [id number] [address] [place] [address], [place] [address] Jul, [facility] [address] [id number] [address] [place] [address], [place] [address] Jul, [facility] [address] [id number] [address] [place] [address], [place] [address] Jul, [facility] [address] [id number] [address] [place] [address], [place] [address] Jul, [facility] [address] [id number] [address] [place] [address], [place] [address] Jun, [facility] [address] [id number] [address] [place] [address], [place] [address] Jun, [facility] [address] [id number] [address] [place] [id number] Jun, [facility] [address] [id number] [address] [place] [id number] Jun, [facility] [address] [id number] [address] [place] [id number] Jun, [facility] [address] [id number] [address] [place] [address], [place] [address] Jun, [facility] [address] [id number] [address] [place] [address], [place] [address] May, [facility] [address] [id number] [address] [place] [id number] May, [facility] [address] [id number] [address] [place] [id number] May, [facility] [address] [id number] [address] [place] [address], [place] [address] May, [facility] [address] [id number] [address] [place] [address], [place] [address] May, [facility] [address] [id number] [address] [place] [address], [place] [address] May, [facility] [address] [id number] [address] [place] [address], [place] [address] May, [facility] [address] [id number] [address] [place] [address], [place] [address] May, [facility] [address] [id number] [address] [place] [address], [place] [address] Apr, [facility] [address] [id number] [address] [place] [address], [place] [address] Apr, [facility] [address] [id number] [address] [place] [address], [place] [address] Mar, [facility] [address] [id number] [address] [place] [address], [place] [address] Mar, [facility] [address] [id number] [address] [place] [address], [place] [address] Mar, [facility] [address] [id number] [address] [place] [address], [place] [address] Mar, [facility] [address] [id number] [address] [place] [address], [place] [address] Feb, [facility] [address] [id number] [address] [place] [address], [place] [address] Jan, [facility] [address] [id number] [address] [place] [address], [place] [address] December, [facility] [address] [id number] [address] [place] [address], [place] [address] December, [facility] [address] [id number] [address] [place] [address], [place] [address] December, [facility] [address] [id number] [address] [place] [address], [place] [address] Nov, [facility] [address] [id number] [address] [place] [address], [place] [address] Nov, [facility] [address] [id number] [address] [place] [address], [place] [address] Sep, [facility] [address] [id number] [address] [place] [address], [place] [address] Sep, [facility] [address] [id number] [address] [place] [address], [place] [address] Sep, [facility] [address] [id number] [address] [place] [address], [place] [address] Sep, [facility] [address] [id number] [address] [place] [address], [place] [address] Aug, [facility] [address] [id number] [address] [place] [address], [place] [address] Aug, [facility] [address] [id number] [address] [place] [address], [place] [address] Aug, [facility] [address] [id number] [address] [place] [address], [place] [address] Aug, [facility] [address] [id number] [address] [place] [address], [place] [address] Jul, [facility] [address] [id number] [address] [place] [address], [place] [address] Jul, [facility] [address] [id number] [address] [place] [address], [place] [address] Jul, [facility] [address] [id number] [address] [place] [address], [place] [address] Jul, [facility] [address] [id number] [address] [place] [address], [place] [address] Jun, [facility] [address] [id number] [address] [place] [address], [place] [address] Jun, [facility] [address] [id number] [address] [place] [address], [place] [address] Jun, [facility] [address] [id number] [address] [place] [address], [place] [address] Jun, [facility] [address] [id number] [address] [place] [address], [place] [address] May, [facility] [address] [id number] [address] [place] [address], [place] [address] May, [facility] [address] [id number] [address] [place] [address], [place] [address] May, [facility] [address] [id number] [address] [place] [address], [place] [address] May, [facility] [address] [id number] [address] [place] [address], [place] [address] May, [facility] [address] [id number] [address] [place] [address], [place] [address] 10 Apr, 2012 [facility] [address] [id number] [address] [place] [address], [place] [address] Apr, [facility] [address] [id number] [address] [place] [address], [place] [address] 07 Apr, 2012 [facility] [address] [id number] [address] [place] [address], [place] [address] 06 Apr, 2012 [facility] [address] [id number] [address] [place] [address], [place] [address] Mar, [facility] [address] [id number] [address] [place] [address], [place] [address] Mar, [facility] [address] [id number] [address] [place] [address], [place] [address] Feb, [facility] [address] [id number] [address] [place] [address], [place] [address] Feb, [facility] [address] [id number] [address] [place] [address], [place] [address] Feb, [facility] [address] [id number] [address] [place] [address], [place] [address] Jan, [facility] [address] [id number] [address] [place] [address], [place] [address] Jan, [facility] [address] [id number] [address] [place] [address], [place] [address] December, [facility] [address] [id number] [address] [place] [address], [place] [address] December, [facility] [address] [id number] [address] [place] [address], [place] [address] Nov, [facility] [address] [id number] [address] [place] [address], [place] [address] Oct, [facility] [address] [id number] [address] [place] [address], [place] [address] Oct, [facility] [address] [id number] [address] [place] [address], [place] [address] Sep, [facility] [address] [id number] [address] [place] [address], [place] [address] Sep, [facility] [address] [id number] [address] [place] [address], [place] [address] Aug, [facility] [address] [id number] [address] [place] [address], [place] [address] Aug, [facility] [address] [id number] [address] [place] [address], [place] [address] Jul, [facility] [address] [id number] [address] [place] [address], [place] [address] Jul, [facility] [address] [id number] [address] [place] [address], [place] [address] Jul, [facility] [address] [id number] [address] [place] [address], [place] [address] 07 Jun, 2011 [facility] [address] [id number] [address] [place] [address], [place] [address] 07 Jun, 2011 [facility] [address] [id number] [address] [place] [address], [place] [address] 13 May, 2011 [facility] [address] [id number] [address] [place] [address], [place] [address] 11 May, 2011 [facility] [address] [id number] [address] [place] [address], [place] [address] 11 May, 2011 [facility] [address] [id number] [address] [place] [address], [place] [address] 09 Jul, 2010 [facility] [address] [id number] [address] [place] [address], [place] [address] 08 Jul, 2010 [facility] [address] [id number] [address] [place] [address], [place] [address] 15 Jun, 2010 [facility] [address] [id number] [address] [place] [address], [place] [address] May, [facility] [address] [id number] [address] [place] [address] May, [facility] [address] [id number] [address] [place] [address], [place] [address] 14 Aug, 2009 [facility] [address] [id number] [address] [place] [address] Jul, [facility] [address] [id number] [address] [place] [address], [place] [address] Jun, [facility] [address] [id number] [address] [place] [id number] Jun, [facility] [address] [id number] [address] [place] [address], [place] [address] Jun, [facility] [address] [id number] [address] [place] [address] Jun, [facility] [address] [facility] [id number] [address] [place] [address] Jun, [facility] [address] [facility] [id number] [address] [place] [phone] May, [facility] [address] [facility] [id number] [address] [place] [address] Sep, IMMUNIZATIONS No Known Immunizations SOCIAL HISTORY Never Assessed REASON FOR VISIT Controlled Med Refill 03/11/2017 PLAN OF CARE VITAL SIGNS MEDICATIONS Medication [...]
--- OUTSIDE RECORDS SUMMARY | 2020-01-28 14:46 | XMS REPORT ---
Author Author Katarina LYON Organization [facility] Address [address] [place] [address] Care Team Providers Care Pedigree Researcher Name Role Phone DAVID LYON Unavailable PROBLEMS Type Condition ICD9-CM Code [id number] Code Onset Dates Condition S tatus SNOMED Code Problem Encounter for immunization Z23 Act essie 915482972 Problem Urinary incontinence, unspecified type R32 Active 960818085 Problem History of cataract surgery Z98.49 Ac tive 053479087 Problem Chronic atrial fibrillation I48.2 Ac tive 671242555 Problem Essential hypertension I10 Active 81662160 Problem Morbid obesity, unspecified obesity type E66.01 Active 618071587 Problem retirement (current) use of anticoagulants Z79.01 Active 694115551 Problem Other urinary incontinence N39.498 Act essie 816106987 Problem Irregular heart beats I49.9 Active 032968299 Problem Eye exam normal Z01.00 Active 2438 12227 Problem Cigarette nicotine dependence without complication F17.210 Active 48332001 Problem Acquired hypothyroidism E03.9 Active 807200353 Problem Abnormal mammogram R92.8 Active 1 57602917 Problem High risk medication use Z79.899 Activ e 100554657 Problem Osteoarthritis M19.90 Active 83946 5006 Problem Diabetes E11.9 Active 588293409 ALLERGIES Unknown Allergies SOCIAL HISTORY No smoking Hx information available PLAN OF CARE VITAL SIGNS MEDICATIONS Unknown Medications RESULTS No Results PROCEDURES No Known procedures IMMUNIZATIONS No Known Immunizations
--- OUTSIDE RECORDS SUMMARY | 2020-01-28 14:47 | XMS REPORT ---
Author Author Katarina RODRIGUEZ Organization [facility] Address [address] [place] [address] Care Team Providers Care Administrative Professional Name Role Phone GEORGINA RODRIGUEZ Unavailable PROBLEMS Type Condition ICD9-CM Code [id number] Code Onset Dates Condition S tatus SNOMED Code Problem Diabetes E11.9 Active 805885924 Problem Urinary incontinence, unspecified type R32 Active 425416096 Problem History of cataract surgery Z98.49 Ac tive 229860800 Problem Chronic atrial fibrillation I48.2 Ac tive 007096364 Problem Essential hypertension I10 Active 56774698 Problem Morbid obesity, unspecified obesity type E66.01 Active 360159892 Problem Irregular heart beats I49.9 Active 040689335 Problem Other urinary incontinence N39.498 Act essie 800158877 Problem 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 Active 190811720 Problem Eye exam normal Z01.00 Active 2438 57926 Problem Osteoarthritis M19.90 Active 59593 5006 Problem High risk medication use Z79.899 Activ e 028806459 Problem Abnormal mammogram R92.8 Active 1 65921554 Problem Acquired hypothyroidism E03.9 Active 887196603 Problem Cigarette nicotine dependence without complication F17.210 Active 29398630 Problem Encounter for immunization Z23 Act essie 047933112 ALLERGIES Unknown Allergies SOCIAL HISTORY No smoking Hx information available PLAN OF CARE VITAL SIGNS MEDICATIONS Medication Instructions Dosage Frequency Start Date End Date Duration S tatus Tramadol HCl 50 mg Orally 2 times a day 2 tablets 12h 22 Jul, 2016 28 days Active RESULTS No Results PROCEDURES No Known procedures IMMUNIZATIONS No Known Immunizations
--- OUTSIDE RECORDS SUMMARY | 2020-01-28 14:47 | XMS REPORT ---
Author Author Katarina RODRIGUEZ Organization [facility] Address [address] [place] [address] Care Team Providers Care Convex Grinder Name Role Phone GEORGINA RODRIGUEZ Unavailable PROBLEMS Type Condition ICD9-CM Code QXT63-FQ Code Onset Dates Condition S tatus SNOMED Code Problem Encounter for immunization Z23 Act essie 670610225 Problem Urinary incontinence, unspecified type R32 Active 713413969 Problem History of cataract surgery Z98.49 Ac tive 378205148 Problem Chronic atrial fibrillation I48.2 Ac tive 146882749 Problem Essential hypertension I10 Active 61750776 Problem Morbid obesity, unspecified obesity type E66.01 Active 557184909 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 527270754 Problem Other urinary incontinence N39.498 Act essie 765059692 Problem Irregular heart beats I49.9 Active 285677310 Problem Eye exam normal Z01.00 Active 2438 59315 Problem Cigarette nicotine dependence without complication F17.210 Active 93305177 Problem Acquired hypothyroidism E03.9 Active 777579132 Problem Abnormal mammogram R92.8 Active 1 66427738 Problem High risk medication use Z79.899 Activ e 456656956 Problem Osteoarthritis M19.90 Active 06879 5006 Problem Diabetes E11.9 Active 147317698 ALLERGIES No Information ENCOUNTERS Encounter Location Date Diagnosis [facility] [address] [facility] [id number] [address] [place] [address] December, [facility] [address] [facility] [id number] [address] [place] [address] December, Osteoarthritis M19.90 [facility] [address] [facility] [id number] [address] [place] [address] Nov, Diabetes E11.9 ; 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 ; Acquired hypothyroidism E03.9 ; Cigarette nicotine dependence without complication F17.210 ; Osteoarthritis M19.90 ; BMI 45.0-49.9, adult Z68.42 and Chronic atrial fibrillation I48.2 [place] [address] [address] Nov, Osteoarthritis M19.90 [place] [address] [address] Oct, Osteoarthritis M19.90 [place] [address] [address] Oct, skilled nursing (current) use of a nticoagulants Z79.01 [place] [address] [address] Sep, Osteoarthritis M19.90 [place] [address] [address] Sep, [place] [address] [address] Aug, Osteoarthritis M19.90 [place] [address] [address] Jul, Osteoarthritis M19.90 [place] [address] [address] Jul, Osteoarthritis M19.90 [place] [address] [address] Jun, Diabetes E11.9 ; Encounter f or immunization Z23 ; skilled nursing (current) use of anticoagulants Z79.01 ; Chronic atrial fibrillation I48.2 ; Osteoarthritis M19.90 ; Tobacco abuse Z72.0 and Bug bite, initial encounter W57.XXXA [place] [address] [address] May, Osteoarthritis M19.90 [place] [address] [address] Apr, Osteoarthritis M19.90 [facility] [address] [id number] [address] [place] [address] Mar, Chronic atrial fibrillation I48.2 [facility] [address] [id number] [address] [place] [address] Mar, [facility] [address] [id number] [address] [place] [address] Mar, Osteoarthritis M19.90 [facility] [address] [id number] [address] [place] [address] Mar, 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 and Chronic atrial fibrillation I48.2 [facility] [address] [id number] [address] [place] [address] Mar, Chronic atrial fibrillation I48.2 and skilled nursing (current) use of anticoagulants Z79.01 [facility] [address] [id number] [address] [place] [address] Mar, skilled nursing (current) use of a nticoagulants Z79.01 [place] [address] [id number] [address] [place] [address] Mar, skilled nursing (current) use of a nticoagulants Z79.01 [facility] [address] [id number] [address] [place] [address] Mar, Osteoarthritis M19.90 [facility] [address] [id number] [address] [place] [address] Feb, Encounter for screening mamm ogram for malignant neoplasm of breast Z12.31 [facility] [address] [id number] [address] [place] [address] Feb, Osteoarthritis M19.90 [facility] [address] [id number] [address] [place] [address] Jan, [facility] [address] [id number] [address] [place] [address] Jan, skilled nursing (current) use of a nticoagulants Z79.01 ; Diabetes E11.9 ; Osteoarthritis M19.90 and Breast cancer screening Z12.39 [facility] [address] [facility] [id number] [address] [place] [address] Jan, Osteoarthritis M19.90 [facility] [address] [facility] [id number] [address] [place] [address] Jan, Osteoarthritis M19.90 [facility] [address] [facility] [id number] [address] [place] [address] Jan, [facility] [address] [facility] [id number] [address] [place] [address] December, Osteoarthritis M19.90 [facility] [address] [facility] [id number] [address] [place] [address] December, Osteoarthritis M19.90 [facility] [id number] [place] [id number] Nov, [facility] [address] [facility] [id number] [address] [place] [address] Nov, [facility] [address] [facility] [id number] [address] [place] [address] Nov, [facility] [address] [facility] [id number] [address] [place] [address] Nov, Diabetes E11.9 [facility] [address] [facility] [id number] [address] [place] [address] Nov, [facility] [address] [facility] [id number] [address] [place] [address] Oct, Osteoarthritis M19.90 [facility] [address] [facility] [id number] [address] [place] [address] Oct, Osteoarthritis M19.90 ; 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 ; Diabetes E11.9 ; Cigarette nicotine dependence without complication F17.210 and Chronic atrial fibrillation I48.2 [facility] [address] [place] [id number] [address] [place] [address] Aug, [facility] [address] [place] [id number] [address] [place] [address] Aug, skilled nursing (current) use of a nticoagulants Z79.01 [facility] [address] [place] [id number] [address] [place] [phone] Aug, [facility] [address] [id number] [id number] Aug, [facility] [address] [place] [id number] [address] [place] [address] Aug, [facility] [address] [place] [id number] [address] [place] [address] Aug, [facility] [id number] [id number] Aug, [facility] [address] [place] [id number] Aug Osteoarthritis M19.90 and Essential hypertension I10 [place] [address] [address] Aug, Other urinary incontinence N 39.498 [place] [address] [place] [id number] [address] [place] [address] Jul, Osteoarthritis M19.90 [place] [address] [address] Jun, Diabetes E11.9 ; Encounter f or immunization Z23 ; Osteoarthritis M19.90 ; skilled nursing (current) use of anticoagulants Z79.01 ; Cigarette nicotine dependence without complication F17.210 ; Acquired hypothyroidism E03.9 ; Morbid obesity, unspecified obesity type E66.01 and Irregular heart beats I49.9 [place] [address] [place] [id number] [address] [place] [address] Jun, Osteoarthritis M19.90 [place] [address] [address] May, Osteoarthritis M19.90 [facility] [address] [facility] [id number] [address] [place] [address] May, Urinary incontinence, unspec ified type R32 [facility] [address] [facility] [id number] [address] [place] [address] May, [facility] [address] [place] [id number] [place] [address] Apr, Osteoarthritis M19.90 [place] [address] [place] [id number] [address] [place] [address] Apr, skilled nursing (current) use of a nticoagulants Z79.01 [facility] [address] [facility] [id number] [address] [place] [address] Apr, [place] [address] [place] [id number] [place] [address] Apr, Osteoarthritis M19.90 [facility] [address] [place] [id number] [address] [place] [address] Mar, Diabetes E11.9 ; Hypothyroid ism, unspecified type E03.9 ; Osteoarthritis M19.90 ; High risk medication use Z79.899 ; Cigarette nicotine dependence without complication F17.210 and Morbid obesity, unspecified obesity type E66.01 [place] [address] [facility] [id number] [address] [place] [address] Mar, Osteoarthritis M19.90 [facility] [address] [facility] [id number] [address] [place] [address] December, Osteoarthritis M19.90 [facility] [address] [place] [id number] [address] [place] [address] December, [facility] [address] [facility] [id number] [address] [place] [address] Oct, [place] [address] [place] [id number] [address] [place] [address] Oct, [facility] [address] [id number] [address] [place] [address] Aug, [facility] [address] [id number] [address] [place] [address] Jul, [facility] [address] [id number] [address] [place] [address] Jul, [facility] [address] [id number] [address] [place] [address] Jul, Diabetes E11.9 ; Encounter f or immunization Z23 ; Abnormal mammogram R92.8 ; Acquired hypothyroidism E03.9 ; High risk medication use Z79.899 ; Osteoarthritis M19.90 and Cigarette nicotine dependence without complication F17.210 [facility] [address] [id number] [address] [place] [address] Jul, [facility] [address] [id number] [address] [place] [address] Jun, Abnormal mammogram R92.8 [facility] [address] [id number] [address] [place] [address] Apr, [facility] [address] [id number] [address] [place] [address] Apr, [facility] [address] [id number] [address] [place] [address] Mar, [facility] [address] [id number] [address] [place] [address] Mar, 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 of 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 ant 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 V58.61 [facility] [address] [id number] [address] [place] [address] Feb, [facility] [address] [id number] [address] [place] [address] Jan, [facility] [address] [id number] [address] [place] [address] December, [facility] [address] [id number] [address] [place] [address], [place] [address] 14 Nov, 2014 [facility] [address] [id number] [address] [place] [address], [place] [address] 13 Nov, 2014 [facility] [address] [id number] [address] [place] [address], [place] [address] Oct, [facility] [address] [id number] [address] [place] [address], [place] [address] Oct, [facility] [address] [id number] [address] [place] [address], [place] [address] Oct, [facility] [address] [id number] [address] [place] [address], [place] [address] Oct, [facility] [address] [id number] [address] [place] [address], [place] [address] Oct, [facility] [address] [id number] [address] [place] [address], [place] [address] Oct, [facility] [address] [id number] [address] [place] [address], [place] [address] Sep, [facility] [address] [id number] [address] [place] [address], [place] [address] Sep, [facility] [address] [id number] [address] [place] [address], [place] [address] Sep, [facility] [address] [id number] [address] [place] [address], [place] [address] Sep, [facility] [address] [id number] [address] [place] [address], [place] [address] Aug, [facility] [address] [id number] [address] [place] [address], [place] [address] Aug, [facility] [address] [id number] [address] [place] [address], [place] [address] Aug, [facility] [address] [id number] [address] [place] [address], [place] [address] Aug, [facility] [address] [id number] [address] [place] [address], [place] [address] Aug, [facility] [address] [id number] [address] [place] [address], [place] [address] Aug, [facility] [address] [id number] [address] [place] [address], [place] [address] Jul, [facility] [address] [id number] [address] [place] [address], [place] [address] Jul, [facility] [address] [id number] [address] [place] [address], [place] [address] Jul, [facility] [address] [id number] [address] [place] [address], [place] [address] Jul, [facility] [address] [id number] [address] [place] [address], [place] [address] Jul, [facility] [address] [id number] [address] [place] [address], [place] [address] Jul, [facility] [address] [id number] [address] [place] [address], [place] [address] Jun, [facility] [address] [id number] [address] [place] [address], [place] [address] Jun, [facility] [address] [id number] [address] [place] [address], [place] [address] Jun, [facility] [address] [id number] [address] [place] [address], [place] [address] Jun, [facility] [address] [id number] [address] [place] [address], [place] [address] Jun, [facility] [address] [id number] [address] [place] [address], [place] [address] Jun, [facility] [address] [id number] [address] [place] [address], [place] [address] Jun, [facility] [address] [id number] [address] [place] [address] [place] [address] Jun, [facility] [address] [id number] [address] [place] [address], [place] [address] Jun, [facility] [address] [id number] [address] [place] [address], [place] [address] May, [facility] [address] [id number] [address] [place] [address], [place] [address] May, [facility] [address] [id number] [address] [place] [address], [place] [address] Apr, [facility] [address] [id number] [address] [place] [address], [place] [address] Apr, [facility] [address] [id number] [address] [place] [address], [place] [address] Apr, [facility] [address] [id number] [address] [place] [address], [place] [address] Apr, 2013 [facility] [address] [id number] [address] [place] [address], [place] [address] Apr, 2013 [facility] [address] [id number] [address] [place] [address], [place] [address] Apr, 2013 [facility] [address] [id number] [address] [place] [address], [place] [address] Apr, [facility] [address] [id number] [address] [place] [address], [place] [address] Apr, 2013 [facility] [address] [id number] [address] [place] [address], [place] [address] Apr, 2013 [facility] [address] [id number] [address] [place] [address], [place] [address] Apr, [facility] [address] [id number] [address] [place] [address], [place] [address] Mar, [facility] [address] [id number] [address] [place] [address], [place] [address] Mar, [facility] [address] [id number] [facility] [place] [address] Mar, [facility] [address] [id number] [address] [place] [address], [place] [address] Mar, [facility] [address] [id number] [address] [place] [address], [place] [address] Mar, [facility] [address] [id number] [address] [place] [address], [place] [address] Mar, [facility] [address] [id number] [address] [place] [address], [place] [address] Feb, [facility] [address] [id number] [address] [place] [address], [place] [address] Feb, [facility] [address] [id number] [address] [place] [address], [place] [address] Feb, [facility] [address] [id number] [address] [place] [address], [place] [address] Feb, [facility] [address] [id number] [address] [place] [address], [place] [address] Jan, [facility] [address] [id number] [address] [place] [address], [place] [address] Jan, [facility] [address] [id number] [address] [place] [address], [place] [address] Jan, [facility] [address] [id number] [address] [place] [address], [place] [address] Jan, [facility] [address] [id number] [address] [place] [address], [place] [address] Oct, [facility] [address] [id number] [address] [place] [address], [place] [address] Oct, [facility] [address] [id number] [address] [place] [address], [place] [address] Sep, [facility] [address] [id number] [address] [place] [address], [place] [address] Sep, [facility] [address] [id number] [address] [place] [address], [place] [address] Sep, [facility] [address] [id number] [address] [place] [address], [place] [address] Sep, [facility] [address] [id number] [address] [place] [address], [place] [address] Aug, [facility] [address] [id number] [address] [place] [address], [place] [address] Aug, [facility] [address] [id number] [address] [place] [address], [place] [address] Aug, [facility] [address] [id number] [address] [place] [address], [place] [address] Aug, [facility] [address] [id number] [address] [place] [address], [place] [address] Jul, [facility] [address] [id number] [address] [place] [address], [place] [address] Jul, [facility] [address] [id number] [address] [place] [address], [place] [address] Jul, [facility] [address] [id number] [address] [place] [address], [place] [address] Jul, [facility] [address] [id number] [address] [place] [address], [place] [address] Jul, [facility] [address] [id number] [address] [place] [address], [place] [address] Jul, [facility] [address] [id number] [address] [place] [address], [place] [address] Jun, [facility] [address] [id number] [address] [place] [address], [place] [address] Jun, [facility] [address] [id number] [address] [place] [address], [place] [address] Jun, [facility] [address] [id number] [address] [place] [address], [place] [address] Jun, [facility] [address] [id number] [address] [place] [address], [place] [address] Jun, [facility] [address] [id number] [address] [place] [address], [place] [address] Jun, [facility] [address] [id number] [address] [place] [address], [place] [address] May, [facility] [address] [id number] [address] [place] [address], [place] [address] May, [facility] [address] [id number] [address] [place] [address], [place] [address] May, [facility] [address] [id number] [address] [place] [address], [place] [address] May, [facility] [address] [id number] [address] [place] [address], [place] [address] May, [facility] [address] [id number] [address] [place] [address], [place] [address] May, [facility] [address] [id number] [address] [place] [address], [place] [address] May, [facility] [address] [id number] [address] [place] [address], [place] [address] May, [facility] [address] [id number] [address] [place] [address], [place] [address] 30 Apr, 2013 [facility] [address] [id number] [address] [place] [address], [place] [address] Apr, [facility] [address] [id number] [address] [place] [address], [place] [address] Mar, [facility] [address] [id number] [address] [place] [address], [place] [address] Mar, [facility] [address] [id number] [address] [place] [address], [place] [address] Mar, [facility] [address] [id number] [address] [place] [address], [place] [address] Mar, [facility] [address] [id number] [address] [place] [address], [place] [address] Feb, [facility] [address] [id number] [address] [place] [address], [place] [address] Jan, [facility] [address] [id number] [address] [place] [address], [place] [address] December, [facility] [address] [id number] [address] [place] [address], [place] [address] December, [facility] [address] [id number] [address] [place] [address], [place] [address] December, [facility] [address] [id number] [address] [place] [address], [place] [address] Nov, [facility] [address] [id number] [address] [place] [address], [place] [address] Nov, [facility] [address] [id number] [address] [place] [address], [place] [address] 14 Sep, 2012 [facility] [address] [id number] [address] [place] [address], [place] [address] 14 Sep, 2012 [facility] [address] [id number] [address] [place] [address], [place] [address] 14 Sep, 2012 [facility] [address] [id number] [address] [place] [address], [place] [address] Sep, [facility] [address] [id number] [address] [place] [address], [place] [address] Aug, [facility] [address] [id number] [address] [place] [address], [place] [address] Aug, [facility] [address] [id number] [address] [place] [address], [place] [address] Aug, [facility] [address] [id number] [address] [place] [address], [place] [address] 08 Aug, 2012 [facility] [address] [id number] [address] [place] [address], [place] [address] Jul, [facility] [address] [id number] [address] [place] [address], [place] [address] Jul, [facility] [address] [id number] [address] [place] [address], [place] [address] Jul, [facility] [address] [id number] [address] [place] [address], [place] [address] Jul, [facility] [address] [id number] [address] [place] [address], [place] [address] Jun, [facility] [address] [id number] [address] [place] [address], [place] [address] Jun, [facility] [address] [id number] [address] [place] [address], [place] [address] Jun, [facility] [address] [id number] [address] [place] [address], [place] [address] Jun, [facility] [address] [id number] [address] [place] [address], [place] [address] May, [facility] [address] [id number] [address] [place] [address], [place] [address] May, [facility] [address] [id number] [address] [place] [address], [place] [address] May, [facility] [address] [id number] [address] [place] [address], [place] [address] May, [facility] [address] [id number] [address] [place] [address], [place] [address] May, [facility] [address] [id number] [address] [place] [address], [place] [address] Apr, [facility] [address] [id number] [address] [place] [address], [place] [address] 08 Apr, 2012 [facility] [address] [id number] [address] [place] [address], [place] [address] 07 Apr, 2012 [facility] [address] [id number] [address] [place] [address], [place] [address] Apr, [facility] [address] [id number] [address] [place] [address], [place] [address] Mar, [facility] [address] [id number] [address] [place] [address], [place] [address] Mar, [facility] [address] [id number] [address] [place] [address], [place] [address] Feb, [facility] [address] [id number] [address] [place] [address], [place] [address] Feb, [facility] [address] [id number] [address] [place] [address], [place] [address] Feb, [facility] [address] [id number] [address] [place] [address], [place] [address] Jan, [facility] [address] [id number] [address] [place] [address], [place] [address] Jan, [facility] [address] [id number] [address] [place] [address], [place] [address] December, [facility] [address] [id number] [address] [place] [address], [place] [address] December, [facility] [address] [id number] [address] [place] [address], [place] [address] Nov, [facility] [address] [id number] [address] [place] [address], [place] [address] Oct, [facility] [address] [id number] [address] [place] [address], [place] [address] Oct, [facility] [address] [id number] [address] [place] [address], [place] [address] Sep, [facility] [address] [id number] [address] [place] [address] Sep, [facility] [address] [id number] [address] [place] [address], [place] [address] Aug, [facility] [address] [id number] [address] [place] [address] Aug, [facility] [address] [id number] [address] [place] [address], [place] [address] Jul, [facility] [address] [id number] [address] [place] [address] Jul, [facility] [address] [id number] [address] [place] [address], [place] [address] Jul, [facility] [address] [id number] [address] [place] [address] Jun, [facility] [address] [id number] [address] [place] [address] Jun, [facility] [address] [id number] [address] [place] [address], [place] [address] 13 May, 2011 [facility] [address] [id number] [address] [place] [address] May, [facility] [address] [id number] [address] [place] [address] May, [facility] [address] [id number] [address] [place] [address] Jul, [facility] [address] [id number] [address] [place] [address] Jul, [facility] [address] [id number] [address] [place] [id number] 15 Jun, 2010 [facility] [address] [id number] [address] [place] [address] May, [facility] [address] [id number] [address] [place] [address] May, [facility] [address] [id number] [address] [place] [address] Aug, [facility] [address] [id number] [address] [place] [address] Jul, [facility] [address] [id number] [address] [place] [address] Jun, [facility] [address] [id number] [address] [place] [address] Jun, [facility] [address] [id number] [address] [place] [address] Jun, [facility] [address] [id number] [address] [place] [address] Jun, [facility] [address] [id number] [address] [place] [address] Jun, [facility] [address] [id number] [address] [place] [address] May, [facility] [address] [id number] [address] [place] [address] Sep, IMMUNIZATIONS No Known Immunizations SOCIAL HISTORY Never Assessed REASON FOR VISIT Controlled Refill Request PLAN OF CARE VITAL SIGNS MEDICATIONS Medication [...]
--- OUTSIDE RECORDS SUMMARY | 2020-01-28 14:47 | XMS REPORT ---
Author Author Katarina RODRIGUEZ Organization [facility] Address [address] [place] [address] Care Team Providers Care Vb Net Programmer Name Role Phone GEORGINA RODRIGUEZ Unavailable PROBLEMS Type Condition ICD9-CM Code DXP81-OA Code Onset Dates Condition S tatus SNOMED Code Problem Encounter for immunization Z23 Act essie 072505686 Problem Urinary incontinence, unspecified type R32 Active 777569921 Problem History of cataract surgery Z98.49 Ac tive 131177694 Problem Chronic atrial fibrillation I48.2 Ac tive 340716615 Problem Essential hypertension I10 Active 05931324 Problem Morbid obesity, unspecified obesity type E66.01 Active 929125569 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 Active 348486496 Problem Other urinary incontinence N39.498 Act essie 364292355 Problem Irregular heart beats I49.9 Active 232696330 Problem Eye exam normal Z01.00 Active 2438 36125 Problem Cigarette nicotine dependence without complication F17.210 Active 47696343 Problem Acquired hypothyroidism E03.9 Active 270313400 Problem Abnormal mammogram R92.8 Active 1 23134732 Problem High risk medication use Z79.899 Activ e 930206157 Problem Osteoarthritis M19.90 Active 91073 5006 Problem Diabetes E11.9 Active 318513913 ALLERGIES No Known Allergies ENCOUNTERS Encounter Location Date Diagnosis [facility] [address] [facility] [id number] [address] [place] [address] Nov, [facility] [address] [facility] [id number] [address] [place] [address] Oct, Osteoarthritis M19.90 [place] [address] [facility] [id number] [address] [place] [address] Oct, residential (current) use of a nticoagulants Z79.01 [facility] [address] [facility] [id number] [address] [place] [address] Sep, Osteoarthritis M19.90 [facility] [address] [facility] [id number] [address] [place] [address] Sep, [facility] [address] [facility] [id number] [address] [place] [address] Aug, Osteoarthritis M19.90 [facility] [address] [facility] [id number] [address] [place] [address] Jul, Osteoarthritis M19.90 [facility] [address] [facility] [id number] [address] [place] [address] Jul, Osteoarthritis M19.90 [facility] [address] [facility] [id number] [address] [place] [address] Jun, Diabetes E11.9 ; Encounter f or immunization Z23 ; residential (current) use of anticoagulants Z79.01 ; Chronic atrial fibrillation I48.2 ; Osteoarthritis M19.90 ; Tobacco abuse Z72.0 and Bug bite, initial encounter W57.XXXA [facility] [address] [facility] [id number] [address] [place] [phone] May, Osteoarthritis M19.90 [facility] [address] [facility] [id number] [address] [place] [address] Apr, Osteoarthritis M19.90 [facility] [address] [facility] [id number] [address] [place] [address] Mar, Chronic atrial fibrillation I48.2 [facility] [address] [facility] [id number] [address] [place] [id number] Mar, [facility] [address] [facility] [id number] [address] [place] [address] Mar, Osteoarthritis M19.90 [facility] [address] [facility] [id number] [address] [place] [address] Mar, residential (current) use of a nticoagulants Z79.01 and Chronic atrial fibrillation I48.2 [facility] [address] [id number] [address] [place] [address] Mar, Chronic atrial fibrillation I48.2 and 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.01 [facility] [address] [id number] [address] [place] [address] Mar, residential (current) use of a nticoagulants Z79.01 [facility] [address] [id number] [address] [place] [address] Mar, 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 Z79.01 [facility] [address] [id number] [address] [place] [address] Mar, Osteoarthritis M19.90 [facility] [address] [id number] [address] [place] [address] Feb, Encounter for screening mamm ogram for malignant neoplasm of breast Z12.31 [facility] [address] [id number] [address] [place] [address] Feb, Osteoarthritis M19.90 [facility] [address] [id number] [address] [place] [address] Jan, [facility] [address] [id number] [address] [place] [address] Jan, 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 Z79.01 ; Diabetes E11.9 ; Osteoarthritis M19.90 and Breast cancer screening Z12.39 [facility] [address] [id number] [address] [place] [address] Jan, Osteoarthritis M19.90 [facility] [address] [id number] [address] [place] [address] Jan, Osteoarthritis M19.90 [facility] [address] [id number] [address] [place] [address] Jan, [facility] [address] [id number] [address] [place] [address] December, Osteoarthritis M19.90 [facility] [address] [id number] [address] [place] [address] December, Osteoarthritis M19.90 [facility] [address] [id number] [facility] [id number] Nov, [facility] [address] [id number] [address] [place] [address] Nov, [facility] [address] [id number] [address] [place] [address] Nov, [facility] [address] [id number] [address] [place] [address] Nov, Diabetes E11.9 [facility] [address] [id number] [address] [place] [address] Nov, [facility] [address] [id number] [address] [place] [address] Oct, Osteoarthritis M19.90 [facility] [address] [id number] [address] [place] [address] Oct, Osteoarthritis M19.90 ; residential (current) use of anticoagulants Z79.01 ; Diabetes E11.9 ; Cigarette nicotine dependence without complication F17.210 and Chronic atrial fibrillation I48.2 [facility] [address] [id number] [address] [place] [address] Aug, [facility] [address] [id number] [address] [place] [phone] Aug, 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 Z79.01 [facility] [address] [id number] [address] [place] [address] Aug, [facility] [address] [id number] [facility] [id number] Aug, [facility] [address] [id number] [address] [place] [phone] Aug, [facility] [address] [facility] [id number] [address] [place] [phone] Aug, [facility] [id number] [place] [id number] Aug, [facility] [address] [place] [id number] Aug Osteoarthritis M19.90 and Essential hypertension I10 [facility] [address] [address] Aug, Other urinary incontinence N 39.498 [facility] [address] [facility] [id number] [address] [place] [address] Jul, Osteoarthritis M19.90 [facility] [address] [address] Jun, Diabetes E11.9 ; Encounter f or immunization Z23 ; Osteoarthritis M19.90 ; residential (current) use of anticoagulants Z79.01 ; Cigarette nicotine dependence without complication F17.210 ; Acquired hypothyroidism E03.9 ; Morbid obesity, unspecified obesity type E66.01 and Irregular heart beats I49.9 [facility] [address] [place] [id number] [address] [place] [address] Jun, Osteoarthritis M19.90 [facility] [address] [place] [id number] [address] [place] [address] May, Osteoarthritis M19.90 [facility] [address] [place] [id number] [address] [place] [address] May, Urinary incontinence, unspec ified type R32 [facility] [address] [facility] [id number] [address] [place] [id number] May, [facility] [address] [facility] [id number] [address] [place] [address] Apr, Osteoarthritis M19.90 [facility] [address] [place] [id number] [address] [place] [address] Apr, 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 Z79.01 [facility] [address] [id number] [address] [place] [id number] Apr, [facility] [address] [facility] [id number] [address] [place] [address] Apr, Osteoarthritis M19.90 [facility] [address] [facility] [id number] [address] [place] [address] Mar, Diabetes E11.9 ; Hypothyroid ism, unspecified type E03.9 ; Osteoarthritis M19.90 ; High risk medication use Z79.899 ; Cigarette nicotine dependence without complication F17.210 and Morbid obesity, unspecified obesity type E66.01 [facility] [address] [id number] [address] [place] [address] Mar, Osteoarthritis M19.90 [place] [address] [facility] [id number] [address] [place] [address] December, Osteoarthritis M19.90 [facility] [address] [facility] [id number] [address] [place] [address] December, [facility] [address] [facility] [id number] [address] [place] [phone] Oct, [facility] [address] [facility] [id number] [address] [place] [phone] Oct, [facility] [address] [facility] [id number] [address] [place] [id number] Aug, [facility] [address] [facility] [id number] [address] [place] [phone] Jul, [facility] [address] [facility] [id number] [address] [place] [address] Jul, [place] [address] [facility] [id number] [address] [place] [phone] Jul, Diabetes E11.9 ; Encounter f or immunization Z23 ; Abnormal mammogram R92.8 ; Acquired hypothyroidism E03.9 ; High risk medication use Z79.899 ; Osteoarthritis M19.90 and Cigarette nicotine dependence without complication F17.210 [facility] [address] [id number] [address] [place] [id number] Jul, [facility] [address] [id number] [address] [place] [phone] Jun, Abnormal mammogram R92.8 [facility] [address] [id number] [address] [place] [id number] Apr, [facility] [address] [id number] [address] [place] [address] Apr, [facility] [address] [id number] [address] [place] [phone] Mar, [facility] [address] [id number] [address] [place] [phone] Mar, Current use of 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 ant 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 V58.61 [facility] [address] [id number] [address] [place] [phone] Feb, [facility] [address] [id number] [address] [place] [id number] Jan, [facility] [address] [id number] [address] [place] [phone] December, [facility] [address] [id number] [address] [place] [phone] Nov, [facility] [address] [id number] [address] [place] [phone] Nov, [facility] [address] [id number] [address] [place] [phone] Oct, [facility] [address] [id number] [address] [place] [phone] Oct, [facility] [address] [id number] [address] [place] [phone] Oct, [facility] [address] [id number] [address] [place] [phone] Oct, [facility] [address] [id number] [address] [place] [address], [place] [address] Oct, [facility] [address] [id number] [address] [place] [address], [place] [address] Oct, [facility] [address] [id number] [address] [place] [address], [place] [address] Sep, [facility] [address] [id number] [address] [place] [address], [place] [address] Sep, [facility] [address] [id number] [address] [place] [address], [place] [address] Sep, [facility] [address] [id number] [address] [place] [address], [place] [address] Sep, [facility] [address] [id number] [address] [place] [address], [place] [address] Aug, [facility] [address] [id number] [address] [place] [address], [place] [address] Aug, [facility] [address] [id number] [address] [place] [address], [place] [address] Aug, [facility] [address] [id number] [address] [place] [address], [place] [address] Aug, [facility] [address] [id number] [address] [place] [address], [place] [address] Aug, [facility] [address] [id number] [address] [place] [address], [place] [address] Aug, [facility] [address] [id number] [address] [place] [address], [place] [address] Jul, [facility] [address] [id number] [address] [place] [address], [place] [address] Jul, [facility] [address] [id number] [address] [place] [address], [place] [address] Jul, [facility] [address] [id number] [address] [place] [address], [place] [address] Jul, [facility] [address] [id number] [address] [place] [address], [place] [address] Jul, [facility] [address] [id number] [address] [place] [address], [place] [address] Jul, [facility] [address] [id number] [address] [place] [address], [place] [address] Jun, [facility] [address] [id number] [address] [place] [address], [place] [address] Jun, [facility] [address] [id number] [address] [place] [address], [place] [address] Jun, [facility] [address] [id number] [address] [place] [address], [place] [address] Jun, [facility] [address] [id number] [address] [place] [address], [place] [address] Jun, [facility] [address] [id number] [address] [place] [address], [place] [address] Jun, [facility] [address] [id number] [address] [place] [address], [place] [address] Jun, [facility] [address] [id number] [address] [place] [address], [place] [address] Jun, [facility] [address] [id number] [address] [place] [address], [place] [address] Jun, [facility] [address] [id number] [address] [place] [address], [place] [address] May, [facility] [address] [id number] [address] [place] [address], [place] [address] May, [facility] [address] [id number] [address] [place] [address], [place] [address] Apr, [facility] [address] [id number] [address] [place] [address], [place] [address] Apr, 2013 [facility] [address] [id number] [facility] [place] [address] Apr, 2013 [facility] [address] [id number] [address] [place] [address], [place] [address] Apr, 2013 [facility] [address] [id number] [address] [place] [address], [place] [address] Apr, 2013 [facility] [address] [id number] [address] [place] [address], [place] [address] Apr, 2013 [facility] [address] [id number] [address] [place] [address], [place] [address] Apr, 2013 [facility] [address] [id number] [address] [place] [address], [place] [address] Apr, 2013 [facility] [address] [id number] [address] [place] [address], [place] [address] Apr, 2013 [facility] [address] [id number] [address] [place] [address], [place] [address] Apr, [facility] [address] [id number] [address] [place] [address], [place] [address] Mar, [facility] [address] [id number] [address] [place] [address], [place] [address] Mar, [facility] [address] [id number] [address] [place] [address], [place] [address] Mar, [facility] [address] [id number] [address] [place] [address], [place] [address] Mar, [facility] [address] [id number] [address] [place] [address], [place] [address] Mar, [facility] [address] [id number] [address] [place] [address], [place] [address] Mar, [facility] [address] [id number] [address] [place] [address], [place] [address] Feb, [facility] [address] [id number] [address] [place] [address], [place] [address] Feb, [facility] [address] [id number] [address] [place] [address], [place] [address] Feb, [facility] [address] [id number] [address] [place] [address], [place] [address] Feb, [facility] [address] [id number] [address] [place] [address], [place] [address] Jan, [facility] [address] [id number] [address] [place] [address], [place] [address] Jan, [facility] [address] [id number] [address] [place] [address], [place] [address] Jan, [facility] [address] [id number] [address] [place] [address], [place] [address] Jan, [facility] [address] [id number] [address] [place] [address], [place] [address] Oct, [facility] [address] [id number] [address] [place] [address], [place] [address] Oct, [facility] [address] [id number] [address] [place] [address], [place] [address] Sep, [facility] [address] [id number] [address] [place] [address], [place] [address] Sep, [facility] [address] [id number] [address] [place] [address], [place] [address] Sep, [facility] [address] [id number] [address] [place] [address], [place] [address] Sep, [facility] [address] [id number] [address] [place] [address], [place] [address] Aug, [facility] [address] [id number] [address] [place] [address], [place] [address] Aug, [facility] [address] [id number] [address] [place] [address], [place] [address] Aug, [facility] [address] [id number] [address] [place] [address], [place] [address] 15 Aug, 2013 [facility] [address] [id number] [address] [place] [address], [place] [address] 30 Jul, 2013 [facility] [address] [id number] [address] [place] [address], [place] [address] 30 Jul, 2013 [facility] [address] [id number] [address] [place] [address], [place] [address] Jul, [facility] [address] [id number] [address] [place] [address], [place] [address] Jul, [facility] [address] [id number] [address] [place] [address], [place] [address] Jul, [facility] [address] [id number] [address] [place] [address], [place] [address] Jul, [facility] [address] [id number] [address] [place] [address], [place] [address] Jun, [facility] [address] [id number] [address] [place] [address], [place] [address] Jun, [facility] [address] [id number] [address] [place] [address], [place] [address] Jun, [facility] [address] [id number] [address] [place] [address], [place] [address] Jun, [facility] [address] [id number] [address] [place] [address], [place] [address] Jun, [facility] [address] [id number] [address] [place] [address], [place] [address] Jun, [facility] [address] [id number] [address] [place] [address], [place] [address] May, [facility] [address] [id number] [address] [place] [address], [place] [address] May, [facility] [address] [id number] [address] [place] [address] [place] [address] May, [facility] [address] [id number] [address] [place] [address], [place] [address] May, [facility] [address] [id number] [address] [place] [address], [place] [address] May, [facility] [address] [id number] [address] [place] [address], [place] [address] May, [facility] [address] [id number] [address] [place] [address], [place] [address] May, [facility] [address] [id number] [address] [place] [address], [place] [address] May, [facility] [address] [id number] [address] [place] [address], [place] [address] Apr, [facility] [address] [id number] [address] [place] [address], [place] [address] Apr, [facility] [address] [id number] [address] [place] [address], [place] [address] Mar, [facility] [address] [id number] [address] [place] [address], [place] [address] Mar, [facility] [address] [id number] [address] [place] [address], [place] [address] Mar, [facility] [address] [id number] [address] [place] [address], [place] [address] Mar, [facility] [address] [id number] [address] [place] [address], [place] [address] Feb, [facility] [address] [id number] [address] [place] [address], [place] [address] Jan, [facility] [address] [id number] [address] [place] [address], [place] [address] December, [facility] [address] [id number] [address] [place] [address], [place] [address] December, [facility] [address] [id number] [address] [place] [address], [place] [address] December, [facility] [address] [id number] [address] [place] [address], [place] [address] Nov, [facility] [address] [id number] [address] [place] [address], [place] [address] Nov, [facility] [address] [id number] [address] [place] [address], [place] [address] Sep, [facility] [address] [id number] [address] [place] [address], [place] [address] Sep, [facility] [address] [id number] [address] [place] [address], [place] [address] Sep, [facility] [address] [id number] [address] [place] [address], [place] [address] Sep, [facility] [address] [id number] [address] [place] [address], [place] [address] Aug, [facility] [address] [id number] [address] [place] [address], [place] [address] Aug, [facility] [address] [id number] [address] [place] [address], [place] [address] Aug, [facility] [address] [id number] [address] [place] [address], [place] [address] Aug, [facility] [address] [id number] [address] [place] [address], [place] [address] Jul, [facility] [address] [id number] [address] [place] [address], [place] [address] Jul, [facility] [address] [id number] [address] [place] [address], [place] [address] Jul, [facility] [address] [id number] [address] [place] [address], [place] [address] Jul, [facility] [address] [id number] [address] [place] [address], [place] [address] Jun, [facility] [address] [id number] [address] [place] [address], [place] [address] Jun, [facility] [address] [id number] [address] [place] [address], [place] [address] Jun, [facility] [address] [id number] [address] [place] [address], [place] [address] Jun, [facility] [address] [id number] [address] [place] [address], [place] [address] May, [facility] [address] [id number] [address] [place] [address], [place] [address] May, [facility] [address] [id number] [address] [place] [address], [place] [address] May, [facility] [address] [id number] [address] [place] [address], [place] [address] May, [facility] [address] [id number] [address] [place] [address], [place] [address] May, [facility] [address] [id number] [address] [place] [address], [place] [address] 10 Apr, 2012 [facility] [address] [id number] [address] [place] [address], [place] [address] 08 Apr, 2012 [facility] [address] [id number] [address] [place] [address], [place] [address] 07 Apr, 2012 [facility] [address] [id number] [address] [place] [address], [place] [address] 06 Apr, 2012 [facility] [address] [id number] [address] [place] [address], [place] [address] Mar, [facility] [address] [id number] [address] [place] [address], [place] [address] Mar, [facility] [address] [id number] [address] [place] [address], [place] [address] Feb, [facility] [address] [id number] [address] [place] [address], [place] [address] Feb, [facility] [address] [id number] [address] [place] [address], [place] [address] Feb, [facility] [address] [id number] [address] [place] [address], [place] [address] Jan, [facility] [address] [id number] [address] [place] [address], [place] [address] Jan, [facility] [address] [id number] [address] [place] [address], [place] [address] December, [facility] [address] [id number] [address] [place] [address], [place] [address] December, [facility] [address] [id number] [address] [place] [address], [place] [address] Nov, [facility] [address] [id number] [address] [place] [address], [place] [address] Oct, [facility] [address] [id number] [address] [place] [address], [place] [address] Oct, [facility] [address] [id number] [address] [place] [address], [place] [address] Sep, [facility] [address] [id number] [address] [place] [address], [place] [address] Sep, [facility] [address] [id number] [address] [place] [address], [place] [address] Aug, [facility] [address] [id number] [address] [place] [address], [place] [address] Aug, [facility] [address] [id number] [address] [place] [address], [place] [address] Jul, [facility] [address] [id number] [address] [place] [address], [place] [address] Jul, [facility] [address] [id number] [address] [place] [address], [place] [address] 09 Jul, 2011 [facility] [address] [id number] [address] [place] [address], [place] [address] 07 Jun, 2011 [facility] [address] [id number] [address] [place] [address], [place] [address] 07 Jun, 2011 [facility] [address] [id number] [address] [place] [address], [place] [address] 13 May, 2011 [facility] [address] [id number] [address] [place] [address], [place] [address] 11 May, 2011 [facility] [address] [id number] [address] [place] [address], [place] [address] 11 May, 2011 [facility] [address] [id number] [address] [place] [address], [place] [address] 09 Jul, 2010 [facility] [address] [id number] [address] [place] [address], [place] [address] 08 Jul, 2010 [facility] [address] [id number] [address] [place] [address], [place] [address] 15 Jun, 2010 [facility] [address] [id number] [address] [place] [address], [place] [address] May, [facility] [address] [id number] [address] [place] [address] May, [facility] [address] [id number] [address] [place] [address] 14 Aug, 2009 [facility] [address] [id number] [address] [place] [address] Jul, [facility] [address] [id number] [address] [place] [address], [place] [address] Jun, [facility] [address] [id number] [address] [place] [address] Jun, [facility] [address] [id number] [address] [place] [address] Jun, [facility] [address] [id number] [address] [place] [address] Jun, [facility] [address] [facility] [id number] [address] [place] [address] Jun, [facility] [address] [facility] [id number] [address] [place] [address] May, [facility] [address] [facility] [id number] [address] [place] [address] Sep, IMMUNIZATIONS No Known Immunizations SOCIAL HISTORY Never Assessed REASON FOR VISIT diabetes check- Aristides NORTON PLAN OF CARE Activity Details Follow Up 3 Months Reason:DM VITAL SIGNS Height 64 in 2017-02-04 Weight 254.7 lbs 2017-02-04 Temperature 97.8 degrees Fahrenheit 2017-02-04 Heart Rate 74 bpm 2017-02-04 Respiratory Rate 18 2017-02-04 BMI 43.71 kg/m2 2017-02-04 Blood pressure systolic 118 mmHg 2017-02-04 Blood pressure diastolic 76 mmHg 2017-02-04 MEDICATIONS Medication Instructions Dosage Frequency Start Date End Date Duration S tatus Lisinopril 40 TAKE ONE TABLET BY MOUTH DAILY 90 Active Januvia 100 TAKE ONE TABLET BY MOUTH DAILY 30 Active Ventolin HFA 108 (90 Base) MCG/ACT Inhalation every 4 hrs 2 puffs a s needed 4h Active Warfarin Sodium 5 mg Orally Once a day 1 tablet on MWFSA S U 7.5mg on and 24h Active Tramadol HCl 50 MG Orally 2 times a day 2 tablets 12h Jul, 28 days Active Nexium 40 mg take 1 capsule (40 mg) by oral route once daily Oct, Active Levothyroxine Sodium 175 MCG Orally Once a day 1 tablet on an empty stomach in the morning 24h 90 Active Accu-Chek Active ... .... 12h Nov, Active Potassium Chloride Faiza ER 10 MEQ Orally Once a day 1 tablet 24h 30 Active Amlodipine Besylate 5 MG Orally Once a day 1 tablet 24h Active Furosemide 40 TAKE ONE TABLET BY MOUTH DAILY 30 Active Lipitor 20 TAKE ONE TABLET BY MOUTH DAILY 30 Active RESULTS Name Result Date Reference Range A1C (IN HOUSE) 2017-02-04 A1C IN HOUSE 6.2 4.3 - 5.6 % Previous A1c 6.1 Lot [id number] Exp date 10/2018 INR (IN HOUSE) 2017-02-04 INR 1.3 1.10 - 3.30 PREVIOUS INR 2.5 CURRENT COUMADIN DOSE 7.5 MWF ans 5 on the other days NEW COUMADIN DOSE Lot # [id number] Exp date 08/2017 MICROALBUMIN, URINE (IN HOUSE) 2017-02-04 MICROALBUMIN normal Lot # [id number] Exp date 12/2017 Clarity clear Color yellow ALB 80 CRE 300 A:C (IN HOUSE) <30 Control + Control Lot # Exp date Mammogram, Bilateral Screening 2017-02-13 PROCEDURES Procedure Date Ordered Result Body Site GLYCATED HEMOGLOBIN TEST February 04, 2017 MICROALBUMIN, SEMIQUANT February 04, 2017 [facility] VISIT ESTABLISHED PATIENT February 04, 2017 PROTHROMBIN TIME February 04, 2017 INSTRUCTIONS MEDICATIONS ADMINISTERED No Known Medications [...]
--- OUTSIDE RECORDS SUMMARY | 2020-01-28 14:47 | XMS REPORT ---
Author Author Katarina RODRIGUEZ Organization [facility] Address [address] [place] [address] Care Team Providers Care Manufacturing Development Engineer Name Role Phone GEORGINA RODRIGUEZ Unavailable PROBLEMS Type Condition ICD9-CM Code SEE02-BO Code Onset Dates Condition S tatus SNOMED Code Problem Encounter for immunization Z23 Act essie 897158242 Problem Urinary incontinence, unspecified type R32 Active 175058964 Problem History of cataract surgery Z98.49 Ac tive 170531539 Problem Chronic atrial fibrillation I48.2 Ac tive 095180357 Problem Essential hypertension I10 Active 64331108 Problem Morbid obesity, unspecified obesity type E66.01 Active 378086693 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 Active 144076926 Problem Other urinary incontinence N39.498 Act essie 301873742 Problem Irregular heart beats I49.9 Active 777609601 Problem Eye exam normal Z01.00 Active 2438 03424 Problem Cigarette nicotine dependence without complication F17.210 Active 53468528 Problem Acquired hypothyroidism E03.9 Active 996877508 Problem Abnormal mammogram R92.8 Active 1 16700245 Problem High risk medication use Z79.899 Activ e 809196156 Problem Osteoarthritis M19.90 Active 24885 5006 Problem Diabetes E11.9 Active 593983648 ALLERGIES Unknown Allergies SOCIAL HISTORY No smoking Hx information available PLAN OF CARE VITAL SIGNS MEDICATIONS Medication Instructions Dosage Frequency Start Date End Date Duration S tatus Toviaz 8 MG Orally Once a day 1 tablet 24h Aug, Active RESULTS No Results PROCEDURES No Known procedures IMMUNIZATIONS No Known Immunizations
--- OUTSIDE RECORDS SUMMARY | 2020-01-28 14:47 | XMS REPORT ---
Author Author Katarina RODRIGUEZ Organization [facility] [place] Address [address] [place] [address] Care Team Providers Care Technician Test Systems Name Role Phone GEORGINA RODRIGUEZ Unavailable PROBLEMS Type Condition ICD9-CM Code YIU75-VN Code Onset Dates Condition S tatus SNOMED Code Problem Encounter for immunization Z23 Act essie 057393427 Problem Urinary incontinence, unspecified type R32 Active 517829360 Problem History of cataract surgery Z98.49 Ac tive 488682225 Problem Chronic atrial fibrillation I48.2 Ac tive 503369995 Problem Essential hypertension I10 Active 96702970 Problem Morbid obesity, unspecified obesity type E66.01 Active 303159948 Problem 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 015153337 Problem Other urinary incontinence N39.498 Act essie 019209124 Problem Irregular heart beats I49.9 Active 240566882 Problem Eye exam normal Z01.00 Active 2438 48009 Problem Cigarette nicotine dependence without complication F17.210 Active 25217201 Problem Acquired hypothyroidism E03.9 Active 516192919 Problem Abnormal mammogram R92.8 Active 1 83679619 Problem High risk medication use Z79.899 Activ e 659519487 Problem Osteoarthritis M19.90 Active 01092 5006 Problem Diabetes E11.9 Active 099069735 ALLERGIES No Information ENCOUNTERS Encounter Location Date Diagnosis [facility] [place] [address] [facility] [id number] [address] [place] [id number] Nov, [facility] [place] [address] [facility] [id number] [address] [place] [phone] Oct, Osteoarthritis M19.90 [facility] [place] [address] [facility] [id number] [address] [place] [phone] Oct, 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) use of a nticoagulants Z79.01 [facility] [place] [address] [facility] [id number] [address] [place] [phone] Sep, Osteoarthritis M19.90 [facility] [place] [address] [facility] [id number] [address] [place] [id number] Sep, [facility] [place] [address] [facility] [id number] [address] [place] [id number] Aug, Osteoarthritis M19.90 [facility] [place] [address] [facility] [id number] [address] [place] [phone] Jul, Osteoarthritis M19.90 [facility] [place] [address] [facility] [id number] [address] [place] [id number] Jul, Osteoarthritis M19.90 [facility] [place] [address] [facility] [id number] [address] [place] [phone] Jun, Diabetes E11.9 ; Encounter f or immunization Z23 ; 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 ; Chronic atrial fibrillation I48.2 ; Osteoarthritis M19.90 ; Tobacco abuse Z72.0 and Bug bite, initial encounter W57.XXXA [facility] [place] [address] [facility] [id number] [address] [place] [phone] May, Osteoarthritis M19.90 [facility] [place] [address] [facility] [id number] [address] [place] [phone] Apr, Osteoarthritis M19.90 [facility] [place] [address] [facility] [id number] [address] [place] [phone] Mar, Chronic atrial fibrillation I48.2 [facility] [place] [address] [id number] [address] [place] [phone] Mar, [facility] [place] [address] [facility] [id number] [address] [place] [phone] Mar, Osteoarthritis M19.90 [facility] [place] [address] [facility] [id number] [address] [place] [id number] Mar, 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) use of a nticoagulants Z79.01 and Chronic atrial fibrillation I48.2 [facility] [place] [address] [id number] [address] [place] [phone] Mar, Chronic atrial fibrillation I48.2 and residential (current) use of anticoagulants Z79.01 [facility] [place] [address] [id number] [address] [place] [phone] Mar, residential (current) use of a nticoagulants Z79.01 [facility] [place] [address] [id number] [address] [place] [id number] Mar, residential (current) use of a nticoagulants Z79.01 [facility] [place] [address] [id number] [address] [place] [id number] Mar, Osteoarthritis M19.90 [facility] [place] [address] [facility] [id number] [address] [place] [phone] Feb, Encounter for screening mamm ogram for malignant neoplasm of breast Z12.31 [facility] [place] [address] [id number] [address] [place] [id number] Feb, Osteoarthritis M19.90 [facility] [place] [address] [id number] [address] [place] [phone] Jan, [facility] [place] [address] [id number] [address] [place] [phone] Jan, 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) use of a nticoagulants Z79.01 ; Diabetes E11.9 ; Osteoarthritis M19.90 and Breast cancer screening Z12.39 [facility] [place] [address] [id number] [address] [place] [phone] Jan, Osteoarthritis M19.90 [facility] [place] [address] [id number] [address] [place] [phone] Jan, Osteoarthritis M19.90 [facility] [place] [address] [id number] [address] [place] [phone] Jan, [facility] [place] [address] [id number] [address] [place] [id number] December, Osteoarthritis M19.90 [facility] [place] [address] [id number] [address] [place] [phone] December, Osteoarthritis M19.90 [facility] [address] [id number] [facility] [id number] Nov, [facility] [place] [address] [id number] [address] [place] [phone] Nov, [facility] [place] [address] [id number] [address] [place] [phone] Nov, [facility] [place] [address] [id number] [address] [place] [id number] Nov, Diabetes E11.9 [facility] [place] [address] [id number] [address] [place] [phone] Nov, [facility] [place] [address] [id number] [address] [place] [phone] Oct, Osteoarthritis M19.90 [facility] [place] [address] [id number] [address] [place] [phone] Oct, Osteoarthritis M19.90 ; 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 ; Diabetes E11.9 ; Cigarette nicotine dependence without complication F17.210 and Chronic atrial fibrillation I48.2 [facility] [place] [address] [id number] [address] [place] [phone] Aug, [facility] [place] [address] [id number] [address] [place] [id number] Aug, residential (current) use of a nticoagulants Z79.01 [facility] [place] [address] [id number] [address] [place] [phone] Aug, [facility] [address] [id number] [facility] [id number] Aug, [facility] [place] [address] [id number] [address] [place] [phone] Aug, [facility] [place] [address] [facility] [id number] [address] [place] [phone] Aug, [facility] [id number] [place] [id number] Aug, [facility] [address] [place] [id number] Aug Osteoarthritis M19.90 and Essential hypertension I10 [facility] [place] [address] [place] [id number] [address] [place] [id number] Aug, Other urinary incontinence N 39.498 [facility] [place] [address] [facility] [id number] [address] [place] [phone] Jul, Osteoarthritis M19.90 [facility] [place] [address] [address] Jun, Diabetes E11.9 ; Encounter f or immunization Z23 ; Osteoarthritis M19.90 ; residential (current) use of anticoagulants Z79.01 ; Cigarette nicotine dependence without complication F17.210 ; Acquired hypothyroidism E03.9 ; Morbid obesity, unspecified obesity type E66.01 and Irregular heart beats I49.9 [facility] [place] [address] [facility] [id number] [address] [place] [id number] Jun, Osteoarthritis M19.90 [facility] [place] [address] [facility] [id number] [address] [place] [id number] May, Osteoarthritis M19.90 [facility] [place] [address] [place] [id number] [address] [place] [phone] May, Urinary incontinence, unspec ified type R32 [facility] [place] [address] [facility] [id number] [address] [place] [phone] May, [facility] [place] [address] [facility] [id number] [address] [place] [phone] Apr, Osteoarthritis M19.90 [facility] [place] [address] [place] [id number] [address] [place] [phone] Apr, residential (current) use of a nticoagulants Z79.01 [facility] [place] [address] [id number] [address] [place] [phone] Apr, [facility] [place] [address] [facility] [id number] [address] [place] [id number] Apr, Osteoarthritis M19.90 [facility] [place] [address] [facility] [id number] [address] [place] [id number] Mar, Diabetes E11.9 ; Hypothyroid ism, unspecified type E03.9 ; Osteoarthritis M19.90 ; High risk medication use Z79.899 ; Cigarette nicotine dependence without complication F17.210 and Morbid obesity, unspecified obesity type E66.01 [facility] [place] [address] [facility] [id number] [address] [place] [phone] Mar, Osteoarthritis M19.90 [place] [address] [facility] [id number] [address] [place] [phone] December, Osteoarthritis M19.90 [facility] [place] [address] [facility] [id number] [address] [place] [id number] December, [facility] [place] [address] [facility] [id number] [address] [place] [id number] Oct, [facility] [place] [address] [facility] [id number] [address] [place] [phone] Oct, [facility] [place] [address] [facility] [id number] [address] [place] [phone] Aug, [facility] [place] [address] [facility] [id number] [address] [place] [id number] Jul, [facility] [place] [address] [facility] [id number] [address] [place] [id number] Jul, [place] [address] [place] [id number] [address] [place] [phone] Jul, Diabetes E11.9 ; Encounter f or immunization Z23 ; Abnormal mammogram R92.8 ; Acquired hypothyroidism E03.9 ; High risk medication use Z79.899 ; Osteoarthritis M19.90 and Cigarette nicotine dependence without complication F17.210 [facility] [place] [address] [id number] [address] [place] [id number] Jul, [facility] [place] [address] [id number] [address] [place] [phone] Jun, Abnormal mammogram R92.8 [facility] [place] [address] [id number] [address] [place] [id number] Apr, [facility] [place] [address] [id number] [address] [place] [phone] Apr, [facility] [place] [address] [id number] [address] [place] [phone] Mar, [facility] [place] [address] [id number] [address] [place] [id number] Mar, Current use of half-way ant 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 V58.61 [facility] [place] [address] [id number] [address] [place] [phone] Feb, [facility] [place] [address] [id number] [address] [place] [phone] Jan, [facility] [place] [address] [id number] [address] [place] [phone] December, [facility] [place] [address] [id number] [address] [place] [id number] Nov, [facility] [place] [address] [id number] [address] [place] [id number] Nov, [facility] [place] [address] [id number] [address] [place] [phone] Oct, [facility] [place] [address] [id number] [address] [place] [phone] Oct, [facility] [place] [address] [id number] [address] [place] [phone] Oct, [facility] [place] [address] [id number] [address] [place] [phone] Oct, [facility] [address] [id number] [address] [place] [address], [place] [address] Oct, [facility] [address] [id number] [address] [place] [address], [place] [address] Oct, [facility] [address] [id number] [address] [place] [address], [place] [address] Sep, [facility] [address] [id number] [address] [place] [address], [place] [address] Sep, [facility] [address] [id number] [address] [place] [address], [place] [address] Sep, [facility] [address] [id number] [address] [place] [address], [place] [address] Sep, [facility] [address] [id number] [address] [place] [address], [place] [address] Aug, [facility] [address] [id number] [address] [place] [address], [place] [address] Aug, [facility] [address] [id number] [address] [place] [address], [place] [address] Aug, [facility] [address] [id number] [address] [place] [address], [place] [address] Aug, [facility] [address] [id number] [address] [place] [address], [place] [address] Aug, [facility] [address] [id number] [address] [place] [phone] Aug, [facility] [address] [id number] [address] [place] [address], [place] [address] Jul, [facility] [address] [id number] [address] [place] [address], [place] [address] Jul, [facility] [address] [id number] [address] [place] [address], [place] [address] Jul, [facility] [address] [id number] [address] [place] [address], [place] [address] Jul, [facility] [address] [id number] [address] [place] [address], [place] [address] Jul, [facility] [address] [id number] [address] [place] [address], [place] [address] Jul, [facility] [address] [id number] [address] [place] [address], [place] [address] Jun, [facility] [address] [id number] [address] [place] [address], [place] [address] Jun, [facility] [address] [id number] [address] [place] [address], [place] [address] Jun, [facility] [address] [id number] [address] [place] [address], [place] [address] Jun, [facility] [address] [id number] [address] [place] [address], [place] [address] Jun, [facility] [address] [id number] [address] [place] [address], [place] [address] Jun, [facility] [address] [id number] [address] [place] [address], [place] [address] Jun, [facility] [address] [id number] [address] [place] [address], [place] [address] Jun, [facility] [address] [id number] [address] [place] [address], [place] [address] Jun, [facility] [address] [id number] [address] [place] [address], [place] [address] May, [facility] [address] [id number] [address] [place] [address], [place] [address] May, [facility] [address] [id number] [address] [place] [address], [place] [address] Apr, [facility] [address] [id number] [address] [place] [address], [place] [address] Apr, [facility] [address] [id number] [facility] [address] Apr, 2013 [facility] [address] [id number] [address] [place] [address], [place] [address] Apr, [facility] [address] [id number] [address] [place] [address], [place] [address] Apr, 2013 [facility] [address] [id number] [address] [place] [address], [place] [address] Apr, 2013 [facility] [address] [id number] [address] [place] [address], [place] [address] Apr, [facility] [address] [id number] [address] [place] [address], [place] [address] Apr, [facility] [address] [id number] [address] [place] [address], [place] [address] Apr, [facility] [address] [id number] [address] [place] [address], [place] [address] Apr, [facility] [address] [id number] [address] [place] [address], [place] [address] Mar, [facility] [address] [id number] [address] [place] [address], [place] [address] Mar, [facility] [address] [id number] [address] [place] [address], [place] [address] Mar, [facility] [address] [id number] [address] [place] [address], [place] [address] Mar, [facility] [address] [id number] [address] [place] [address], [place] [address] Mar, [facility] [address] [id number] [address] [place] [address], [place] [address] Mar, [facility] [address] [id number] [address] [place] [address], [place] [address] Feb, [facility] [address] [id number] [address] [place] [address], [place] [address] Feb, [facility] [address] [id number] [address] [place] [address], [place] [address] Feb, [facility] [address] [id number] [address] [place] [address], [place] [address] Feb, [facility] [address] [id number] [address] [place] [address], [place] [address] Jan, [facility] [address] [id number] [address] [place] [address], [place] [address] Jan, [facility] [address] [id number] [address] [place] [address], [place] [address] Jan, [facility] [address] [id number] [address] [place] [address], [place] [address] Jan, [facility] [address] [id number] [address] [place] [address], [place] [address] Oct, [facility] [address] [id number] [address] [place] [address], [place] [address] Oct, [facility] [address] [id number] [address] [place] [address], [place] [address] Sep, [facility] [address] [id number] [address] [place] [address], [place] [address] Sep, [facility] [address] [id number] [address] [place] [address], [place] [address] Sep, [facility] [address] [id number] [address] [place] [address], [place] [address] Sep, [facility] [address] [id number] [address] [place] [address], [place] [address] Aug, [facility] [address] [id number] [address] [place] [address], [place] [address] Aug, [facility] [address] [id number] [address] [place] [address], [place] [address] Aug, [facility] [address] [id number] [address] [place] [address], [place] [address] Aug, [facility] [address] [id number] [address] [place] [address], [place] [address] Jul, [facility] [address] [id number] [address] [place] [address], [place] [address] 30 Jul, 2013 [facility] [address] [id number] [address] [place] [address], [place] [address] Jul, [facility] [address] [id number] [address] [place] [address], [place] [address] Jul, [facility] [address] [id number] [address] [place] [address], [place] [address] Jul, [facility] [address] [id number] [address] [place] [address], [place] [address] Jul, [facility] [address] [id number] [address] [place] [address], [place] [address] Jun, [facility] [address] [id number] [address] [place] [address], [place] [address] Jun, [facility] [address] [id number] [address] [place] [id number] Jun, [facility] [address] [id number] [address] [place] [id number] Jun, [facility] [address] [id number] [address] [place] [phone] Jun, [facility] [address] [id number] [address] [place] [address], [place] [address] Jun, [facility] [address] [id number] [address] [place] [address], [place] [address] May, [facility] [address] [id number] [address] [place] [phone] May, [facility] [address] [id number] [address] [place] [phone] May, [facility] [address] [id number] [address] [place] [address], [place] [address] May, [facility] [address] [id number] [address] [place] [address], [place] [address] May, [facility] [address] [id number] [address] [place] [address], [place] [address] May, [facility] [address] [id number] [address] [place] [address], [place] [address] May, [facility] [address] [id number] [address] [place] [address], [place] [address] May, [facility] [address] [id number] [address] [place] [address], [place] [address] Apr, [facility] [address] [id number] [address] [place] [address], [place] [address] Apr, [facility] [address] [id number] [address] [place] [address], [place] [address] Mar, [facility] [address] [id number] [address] [place] [address], [place] [address] Mar, [facility] [address] [id number] [address] [place] [address], [place] [address] Mar, [facility] [address] [id number] [address] [place] [address], [place] [address] Mar, [facility] [address] [id number] [address] [place] [address], [place] [address] Feb, [facility] [address] [id number] [address] [place] [address], [place] [address] Jan, [facility] [address] [id number] [address] [place] [address], [place] [address] December, [facility] [address] [id number] [address] [place] [address], [place] [address] December, [facility] [address] [id number] [address] [place] [address], [place] [address] December, [facility] [address] [id number] [address] [place] [address], [place] [address] Nov, [facility] [address] [id number] [address] [place] [address], [place] [address] Nov, [facility] [address] [id number] [address] [place] [address], [place] [address] Sep, [facility] [address] [id number] [address] [place] [address], [place] [address] Sep, [facility] [address] [id number] [address] [place] [address], [place] [address] Sep, [facility] [address] [id number] [address] [place] [address], [place] [address] Sep, [facility] [address] [id number] [address] [place] [address], [place] [address] Aug, [facility] [address] [id number] [address] [place] [address], [place] [address] Aug, [facility] [address] [id number] [address] [place] [address], [place] [address] Aug, [facility] [address] [id number] [address] [place] [address], [place] [address] Aug, [facility] [address] [id number] [address] [place] [address], [place] [address] Jul, [facility] [address] [id number] [address] [place] [address], [place] [address] Jul, [facility] [address] [id number] [address] [place] [address], [place] [address] Jul, [facility] [address] [id number] [address] [place] [address], [place] [address] Jul, [facility] [address] [id number] [address] [place] [address], [place] [address] Jun, [facility] [address] [id number] [address] [place] [address], [place] [address] Jun, [facility] [address] [id number] [address] [place] [address], [place] [address] Jun, [facility] [address] [id number] [address] [place] [address], [place] [address] Jun, [facility] [address] [id number] [address] [place] [address], [place] [address] May, [facility] [address] [id number] [address] [place] [address], [place] [address] May, [facility] [address] [id number] [address] [place] [address], [place] [address] May, [facility] [address] [id number] [address] [place] [address], [place] [address] May, [facility] [address] [id number] [address] [place] [address], [place] [address] May, [facility] [address] [id number] [address] [place] [address], [place] [address] 10 Apr, 2012 [facility] [address] [id number] [address] [place] [address], [place] [address] Apr, [facility] [address] [id number] [address] [place] [address], [place] [address] 07 Apr, 2012 [facility] [address] [id number] [address] [place] [address], [place] [address] 06 Apr, 2012 [facility] [address] [id number] [address] [place] [address], [place] [address] Mar, [facility] [address] [id number] [address] [place] [address], [place] [address] Mar, [facility] [address] [id number] [address] [place] [address], [place] [address] Feb, [facility] [address] [id number] [address] [place] [address], [place] [address] Feb, [facility] [address] [id number] [address] [place] [address], [place] [address] Feb, [facility] [address] [id number] [address] [place] [address], [place] [address] Jan, [facility] [address] [id number] [address] [place] [address], [place] [address] Jan, [facility] [address] [id number] [address] [place] [address], [place] [address] December, [facility] [address] [id number] [address] [place] [address], [place] [address] December, [facility] [address] [id number] [address] [place] [address], [place] [address] Nov, [facility] [address] [id number] [address] [place] [address], [place] [address] Oct, [facility] [address] [id number] [address] [place] [address], [place] [address] Oct, [facility] [address] [id number] [address] [place] [address], [place] [address] Sep, [facility] [address] [id number] [address] [place] [address], [place] [address] Sep, [facility] [address] [id number] [address] [place] [address], [place] [address] Aug, [facility] [address] [id number] [address] [place] [address], [place] [address] Aug, [facility] [address] [id number] [address] [place] [address], [place] [address] Jul, [facility] [address] [id number] [address] [place] [address], [place] [address] Jul, [facility] [address] [id number] [address] [place] [address], [place] [address] Jul, [facility] [address] [id number] [address] [place] [address], [place] [address] 07 Jun, 2011 [facility] [address] [id number] [address] [place] [address], [place] [address] 07 Jun, 2011 [facility] [address] [id number] [address] [place] [address], [place] [address] 13 May, 2011 [facility] [address] [id number] [address] [place] [address], [place] [address] 11 May, 2011 [facility] [address] [id number] [address] [place] [address], [place] [address] 11 May, 2011 [facility] [address] [id number] [address] [place] [address], [place] [address] 09 Jul, 2010 [facility] [address] [id number] [address] [place] [address], [place] [address] 08 Jul, 2010 [facility] [address] [id number] [address] [place] [address], [place] [address] 15 Jun, 2010 [facility] [address] [id number] [address] [place] [address], [place] [address] May, [facility] [address] [id number] [address] [place] [id number] May, [facility] [address] [id number] [address] [place] [address], [place] [address] 14 Aug, 2009 [facility] [address] [id number] [address] [place] [id number] Jul, [facility] [address] [id number] [address] [place] [address], [place] [address] Jun, [facility] [address] [id number] [address] [place] [phone] Jun, [facility] [address] [id number] [address] [place] [address], [place] [address] Jun, [facility] [address] [id number] [address] [place] [id number] Jun, [facility] [place] [address] [facility] [id number] [address] [place] [phone] Jun, [facility] [place] [address] [facility] [id number] [address] [place] [phone] May, [facility] [place] [address] [facility] [id number] [address] [place] [id number] Sep, IMMUNIZATIONS No Known Immunizations SOCIAL HISTORY Never Assessed REASON FOR VISIT Controlled Med Refill 02/11/2017 PLAN OF CARE VITAL SIGNS MEDICATIONS Medication [...]
--- OUTSIDE RECORDS SUMMARY | 2020-01-28 14:47 | XMS REPORT ---
Author Author Katarina RODRIGUEZ Organization [employer] Address Unknown Phone Unavailable Care Team Providers Care Joiners Supervisor Name Role Phone GEORGINA RODRIGUEZ CP Unavailable [...]
[2020-01-28 14:48] LABS: BASOPHILS % (AUTO) 0 % (0-10); EOSINOPHILS % (AUTO) 0 % (0-10); HEMATOCRIT 40 % (35-52); LYMPHOCYTES # (AUTO) 0.7 X 10^3 (1.0-4.0); LYMPHOCYTES % (AUTO) 5 % (12-44); MEAN CORPUSCULAR HEMOGLOBIN 29 PG (25-34); MEAN CORPUSCULAR HGB CONC 33 G/DL (32-36); MEAN CORPUSCULAR VOLUME 89 FL (80-99); MEAN PLATELET VOLUME 8.8 FL (7.4-10.4); MONOCYTES # (AUTO) 1.1 X 10^3 (0.0-1.0); MONOCYTES % (AUTO) 9 % (0-12); NEUTROPHILS # (AUTO) 11.1 X 10^3 (1.8-7.8); NEUTROPHILS % (AUTO) 86 % (42-75); PLATELET COUNT 422 10^3/uL (130-400); RED CELL DISTRIBUTION WIDTH 17.4 % (10.0-14.5); WHITE BLOOD COUNT 12.9 10^3/uL (4.3-11.0)
--- OUTSIDE RECORDS SUMMARY | 2020-01-28 14:48 | XMS REPORT | Continuity of Care Document ---
Author Organization Unknown Address Unknown Phone Unavailable Allergies Active Description Code Type Severity Reaction Onset Reported/Identified Relationship to Patient Clinical Status Yes NO KNOWN DRUG ALLERGIES NO KNOWN DRUG ALLERG UNKNOWN Yes NO KNOWN DRUG ALLERGIES UNKNOWN NO KNOWN DRUG ALLERG Yes NO KNOWN DRUG ALLERGIES UNKNOWN UNKNOWN Yes No Known Drug Allergies [id number] Drug Allergy Unknown N/A 03/07/2013 Medications Medication Packaging Start Date St op Date Route Dosage Sig NORMAL SALINE 1000CC IV BAG INJ 0.9 % (NS 1000CC IV BAG) ml 08/07/2016 08/22/2016 CONTINUOUSEVERY 0 Hour LEVALBUTEROL LIQ 1.25 MG/3ML (XOPENEX) MG 08/07/2016 08/07/2016 ONCE&0711 D5 1/2 NS 1000CC IV BAG INJ 0 ml 08/07/2016 08/14/2016 CONTINUOUSEVERY 0 Hour cefuroxime sodium 750mg vial (Zinacef) MG 08/07/2016 08/07/2016 ONCE&0745 cefuroxime sodium 1.5 Gm vial (Zinacef) GM 08/07/2016 08/07/2016 ONCE&0800 ASA 81MG ENTERIC COATED TAB 81 MG (BABY ASPIRIN EC) MG 08/07/2016 08/13/2016 Daily&0900 ENOXAPARIN SYRINGE INJ 30 MG (LOVENOX SYRI NGE) MG 08/07/2016 08/16/2016 Daily&0900 ONDANSETRON VIAL INJ 4 MG/2CC (ZOFRAN 2CC VIAL) MG 08/07/2016 08/14/2016 PRN Q4H OXYCODONE/APAP 10MG/325MG TAB 0 (PERCOCET -10) TAB 08/07/2016 08/14/2016 PRN Q4H ONDANSETRON VIAL INJ 4 MG/2CC (ZOFRAN 2CC VIAL) MG 08/07/2016 08/07/2016 PRN ONCE D5 1/2 NS 1000CC IV BAG INJ 0 ml 08/07/2016 08/14/2016 CONTINUOUSEVERY 0 Hour NICOTINE PATCH PAT 21 MG (NICODERM) MG 08/07/2016 08/07/2016 ONCE&1117 DIPHENHYDRAMINE VIAL INJ 50 MG/CC (BENADRYL VIAL) MG 08/07/2016 08/12/2016 PRN Q6H HYDROMORPHONE AMP INJ 2 MG/C C (DILAUDID 1CC AMP) MG 08/07/2016 08/07/2016 ONCE&1338 TEMAZEPAM CAP 15 MG (RESTORIL) MG 08/07/2016 08/13/2016 PRN QHS cefuroxime sodium 750mg vial (Zinacef) MG 08/07/2016 08/07/2016 ONCE&2359 IPRATROPIUM/ALBUTEROL INH SO LN INH 0 (DUO-NEB INH SOLN) MLS 08/08/2016 08/14/2016 TID&0600,1100,1600,2100 LACTULOSE SYRUP LIQ 20 GM/30 CC (CHRONULAC SYRUP) GM 08/08/2016 08/14/2016 BID&0800,2000 ASA 81MG ENTERIC COATED TAB 81 MG (BABY ASPIRIN EC) MG 08/08/2016 08/14/2016 Daily&0900 LISINOPRIL TAB 40 MG (ZESTRIL) MG 08/08/2016 08/14/2016 Daily&0900 FUROSEMIDE TAB 40 MG (LASIX) MG 08/08/2016 08/14/2016 Daily&0900 ENOXAPARIN SYRINGE INJ 30 MG (LOVENOX SYRI NGE) MG 08/08/2016 08/17/2016 Daily&0900 AMLODIPINE TAB 5 MG (NORVASC) MG 08/08/2016 08/14/2016 Daily&0900 LEVOTHYROXINE TAB 25MCG (SYNTHROID) MCG 08/08/2016 08/14/2016 Daily&0900 NICOTINE PATCH PAT 21 MG (NICODERM) MG 08/08/2016 08/14/2016 Daily&0900 WARFARIN TAB 5 MG (COUMADIN) MG 08/08/2016 08/14/2016 QPM&1800 POTASSIUM CHLORIDE TAB 10 MEQ (K-DUR) MEQ 08/08/2016 08/14/2016 QHS&2100 FENTANYL AMP INJ 100 MCG/2CC MCG 08/09/2016 08/12/2016 PRN Q4H FLUTICASONE/SALMETEROL MDI 2 50 /50MCG (ADVAIR DISKUS) PUFF 08/09/2016 08/15/2016 BID&0800,2000 OXYCODONE/APAP 10MG/325MG TAB 0 (PERCOCET -10) TAB 08/12/2016 08/19/2016 PRN Q4H cefuroxime sodium 1.5 Gm vial (Zinacef) GM 09/17/2016 09/17/2016 ONCE&1003 cefuroxime sodium 1.5 Gm vial (Zinacef) GM 09/17/2016 09/17/2016 ONCE&1051 LEVOTHYROXINE TAB 25MCG (SYNTHROID) MCG 11/05/2016 12/04/2016 Daily&0900 SITAGLIPTIN TAB 100 MG (JANUVIA) MG 11/13/2016 11/19/2016 Daily&0700 NORMAL SALINE 1000CC IV BAG INJ 0.9 % (NS 1000CC IV BAG) ml 11/13/2016 11/28/2016 CONTINUOUSEVERY 0 Hour D5 1/2 NS 1000CC IV BAG INJ 0 ml 11/13/2016 11/20/2016 CONTINUOUSEVERY 0 Hour cefuroxime sodium 750mg vial (Zinacef) MG 11/13/2016 11/13/2016 ONCE&0746 cefuroxime sodium 1.5 Gm vial (Zinacef) GM 11/13/2016 11/13/2016 ONCE&0800 ASA 81MG ENTERIC COATED TAB 81 MG (BABY ASPIRIN EC) MG 11/13/2016 11/19/2016 Daily&0900 ENOXAPARIN SYRINGE INJ 30 MG (LOVENOX SYRI NGE) MG 11/13/2016 11/22/2016 Daily&0900 SENNA CONC/DOCUSATE TAB 0 (SENOKOT S) TAB 11/13/2016 11/19/2016 Daily&0900 0.45% SALINE 1000CC BAG INJ 0.45 % (HALF NORMAL SALINE 1000CC) ML 11/13/2016 11/20/2016 CONTINUOUSEVERY 0 Hour OXYCODONE/APAP 10MG/325MG TAB 0 (PERCOCET -10) TAB 11/13/2016 11/20/2016 PRN Q4H ONDANSETRON VIAL INJ 4 MG/2CC (ZOFRAN 2CC VIAL) MG 11/13/2016 11/20/2016 PRN Q4H DIPHENHYDRAMINE VIAL INJ 50 MG/CC (BENADRYL VIAL) MG 11/13/2016 11/16/2016 PRN Q6H FUROSEMIDE TAB 40 MG (LASIX) MG 11/13/2016 11/13/2016 ONCE&1320 KETOROLAC VIAL INJ 30 MG/CC (TORADOL VIAL) MG 11/13/2016 11/14/2016 PRN Q6H TEMAZEPAM CAP 15 MG (RESTORIL) MG 11/13/2016 11/19/2016 PRN QHS 0.45% SALINE 1000CC BAG INJ 0.45 % (HALF NORMAL SALINE 1000CC) ML 11/14/2016 11/21/2016 CONTINUOUSEVERY 0 Hour ENOXAPARIN SYRINGE INJ 30 MG (LOVENOX SYRI NGE) MG 11/14/2016 11/22/2016 Daily&0900 FUROSEMIDE TAB 40 MG (LASIX) MG 11/14/2016 11/20/2016 Daily&0900 LEVOTHYROXINE TAB 100 MCG (SYNTHROID) MCG 11/14/2016 11/20/2016 Daily&0900 LEVOTHYROXINE TAB 75 MCG (SYNTHROID) MCG 11/14/2016 11/20/2016 Daily&0900 OXYCODONE/APAP 10MG/325MG TAB 0 (PERCOCET -10) TAB 11/14/2016 11/24/2016 PRN Q4H OXYCODONE/APAP 10MG/325MG TAB 0 (PERCOCET -10) TAB 11/14/2016 11/24/2016 PRN Q6H FENTANYL INJ 100 MCG/2CC VIAL MCG 11/15/2016 11/17/2016 PRN Q6H LACTULOSE SYRUP LIQ 20 GM/30 CC (CHRONULAC SYRUP) GM 11/15/2016 11/22/2016 PRN TID BISACODYL SUPPOS SUP 10 MG (DULCOLAX SUPPO S) MG 11/17/2016 11/17/2016 PRN ONCE Fentanyl citrate (PF) inj so lution 50mcg/mL 1 mL VIAL MCG 01/23/2020 01/23/2020 PRN ONCE ONDANSETRON VIAL INJ 4 MG/2CC (ZOFRAN 2CC VIAL) MG 01/23/2020 01/23/2020 ONCE&0932 OXYCODONE IR TAB 5 MG (OXY I R (IMMEDIATE RELEASE)) MG 01/23/2020 01/23/2020 ONCE&1033 Hydromorphone inj 2mg/cc vial (Dilaudid) MG 01/23/2020 01/23/2020 ONCE&1033 Problems Date Dx Coded Attending Type Code Diagnosis Diagnosed By 04/11/2008 FREDO HEIN DO 271.3 INTESTINAL DISACCHARIDASE DEFICIENCIES AND DISACCHARIDE MALABSORPTION 04/11/2008 FREDO HEIN DO 401.1 HYPERTENSION, BENIGN ESSENTIAL 04/11/2008 FREDO HEIN DO 414.00 CORONARY ATHEROSCLEROSIS OF UNSPECIFIED TYPE OF VESSEL TORRES MARTINEZ OR GRAFT 04/11/2008 FREDO HEIN DO 530.81 GERD 04/11/2008 FREDO HEIN DO 271.3 INTESTINAL DISACCHARIDASE DEFICIENCIES AND DISACCHARIDE MALABSORPTION 04/11/2008 FREDO HEIN DO 401.1 HYPERTENSION, BENIGN ESSENTIAL 04/11/2008 FREDO HEIN DO 414.00 CORONARY ATHEROSCLEROSIS OF UNSPECIFIED TYPE OF VESSEL TORRES MARTINEZ OR GRAFT 04/11/2008 FREDO HEIN DO 530.81 GERD 04/11/2008 GEORGINA RODRIGUEZ APRN S 271.3 INTESTINAL DISACCHARIDASE DEFICIENCIES A ND DISACCHARIDE MALABSORPTION 04/11/2008 HOLLIE RODRIGUEZ APRNNDA S 401.1 HYPERTENSION, BENIGN ESSENTIAL 04/11/2008 HOLLIE RODRIGUEZ APRNNDA S 414.00 CORONARY ATHEROSCLEROSIS OF UNSPECIFIED TYPE OF VESSEL TORRES MARTINEZ OR GRAFT 04/11/2008 HOLLIE RODRIGUEZ APRNNDA S 530.81 GERD 04/11/2008 HOLLIE RODRIGUEZ APRNNDA S 271.3 INTESTINAL DISACCHARIDASE DEFICIENCIES A ND DISACCHARIDE MALABSORPTION 04/11/2008 HOLLIE RODRIGUEZ APRNNDA S 401.1 HYPERTENSION, BENIGN ESSENTIAL 04/11/2008 MICHAEL NUNN GEORGINA S 414.00 CORONARY ATHEROSCLEROSIS OF UNSPECIFIED TYPE OF VESSEL TORRES MARTINEZ OR GRAFT 04/11/2008 MICHAEL NUNN GEORGINA S 530.81 GERD 04/11/2008 271.3 INTE STINAL DISACCHARIDASE DEFICIENCIES AND DISACCHARIDE MALABSORPTION 04/11/2008 401.1 HYPE RTENSION, BENIGN ESSENTIAL 04/11/2008 414.00 COR ONARY ATHEROSCLEROSIS OF UNSPECIFIED TYPE OF VESSEL TORRES MARTINEZ OR GRAFT 04/11/2008 530.81 GERD 04/11/2008 271.3 INTE STINAL DISACCHARIDASE DEFICIENCIES AND DISACCHARIDE MALABSORPTION 04/11/2008 401.1 HYPE RTENSION, BENIGN ESSENTIAL 04/11/2008 414.00 COR ONARY ATHEROSCLEROSIS OF UNSPECIFIED TYPE OF VESSEL TORRES MARTINEZ OR GRAFT 04/11/2008 530.81 GERD 04/11/2008 271.3 INTE STINAL DISACCHARIDASE DEFICIENCIES AND DISACCHARIDE MALABSORPTION 04/11/2008 401.1 HYPE RTENSION, BENIGN ESSENTIAL 04/11/2008 414.00 COR ONARY ATHEROSCLEROSIS OF UNSPECIFIED TYPE OF VESSEL TORRES MARTINEZ OR GRAFT 04/11/2008 530.81 GERD 04/11/2008 MICHAEL NUNN, GEORGINA S 271.3 INTESTINAL DISACCHARIDASE DEFICIENCIES A ND DISACCHARIDE MALABSORPTION 04/11/2008 MICHAEL NUNN GEORGINA S 401.1 HYPERTENSION, BENIGN ESSENTIAL 04/11/2008 MICHAEL NUNN, GEORGINA S 414.00 CORONARY ATHEROSCLEROSIS OF UNSPECIFIED TYPE OF VESSEL TORRES MARTINEZ OR GRAFT 04/11/2008 MICHAEL NUNN, GEORGINA S 530.81 GERD 04/11/2008 DAVID LYON MD 271.3 INTESTINAL DISACCHARIDASE DEFICIENCIES AND DISACCHARIDE MALABSORPTION 04/11/2008 DAVID LYON MD 401.1 HYPERTENSION, BENIGN ESSENTIAL 04/11/2008 DAVID LYON MD 414.0 0 CORONARY ATHEROSCLEROSIS OF UNSPECIFIED TYPE OF VESSEL TORRES MARTINEZ OR GRAFT 04/11/2008 DAVID LYON MD 530.8 1 GERD 04/11/2008 HOLLIE RODRIGUEZ APRNNDA S 271.3 INTESTINAL DISACCHARIDASE DEFICIENCIES A ND DISACCHARIDE MALABSORPTION 04/11/2008 MICHAEL NUNN GEORGINA S 401.1 HYPERTENSION, BENIGN ESSENTIAL 04/11/2008 MICHAEL NUNN, GEORGINA S 414.00 CORONARY ATHEROSCLEROSIS OF UNSPECIFIED TYPE OF VESSEL TORRES MARTINEZ OR GRAFT 04/11/2008 MICHAEL NUNN, GEORGINA S 530.81 GERD 04/11/2008 MICHAEL NUNN, GEORGINA S 271.3 INTESTINAL DISACCHARIDASE DEFICIENCIES A ND DISACCHARIDE MALABSORPTION 04/11/2008 MICHAEL EPITAXIAL REACTOR OPERATOR, GEORGINA S 401.1 HYPERTENSION, BENIGN ESSENTIAL 04/11/2008 MICHAEL EPITAXIAL REACTOR OPERATOR, GEORGINA S 414.00 CORONARY ATHEROSCLEROSIS OF UNSPECIFIED TYPE OF VESSEL TORRES MARTINEZ OR GRAFT 04/11/2008 MICHAEL EPITAXIAL REACTOR OPERATOR, GEORGINA S 530.81 GERD 04/11/2008 MICHAEL NUNN, GEORGINA S 271.3 INTESTINAL DISACCHARIDASE DEFICIENCIES A ND DISACCHARIDE MALABSORPTION 04/11/2008 MICHAEL EPITAXIAL REACTOR OPERATOR, GEORGINA S 401.1 HYPERTENSION, BENIGN ESSENTIAL 04/11/2008 MICHAEL EPITAXIAL REACTOR OPERATOR, GEORGINA S 414.00 CORONARY ATHEROSCLEROSIS OF UNSPECIFIED TYPE OF VESSEL TORRES MARTINEZ OR GRAFT 04/11/2008 MICHAEL EPITAXIAL REACTOR OPERATOR, GEORGINA S 530.81 GERD 04/11/2008 MICHAEL EPITAXIAL REACTOR OPERATOR, GEORGINA S 271.3 INTESTINAL DISACCHARIDASE DEFICIENCIES A ND DISACCHARIDE MALABSORPTION 04/11/2008 MICHAEL EPITAXIAL REACTOR OPERATOR, GEORGINA S 401.1 HYPERTENSION, BENIGN ESSENTIAL 04/11/2008 MICHAEL EPITAXIAL REACTOR OPERATOR, GEORGINA S 414.00 CORONARY ATHEROSCLEROSIS OF UNSPECIFIED TYPE OF VESSEL TORRES MARTINEZ OR GRAFT 04/11/2008 MICHAEL EPITAXIAL REACTOR OPERATOR, GEORGINA S 530.81 GERD 04/11/2008 MICHAEL EPITAXIAL REACTOR OPERATOR, GEORGINA S 271.3 INTESTINAL DISACCHARIDASE DEFICIENCIES A ND DISACCHARIDE MALABSORPTION 04/11/2008 MICHAEL EPITAXIAL REACTOR OPERATOR, GEORGINA S 401.1 HYPERTENSION, BENIGN ESSENTIAL 04/11/2008 MICHAEL EPITAXIAL REACTOR OPERATOR, GEORGINA S 414.00 CORONARY ATHEROSCLEROSIS OF UNSPECIFIED TYPE OF VESSEL TORRES MARTINEZ OR GRAFT 04/11/2008 MICHAEL EPITAXIAL REACTOR OPERATOR, GEORGINA S 530.81 GERD 04/11/2008 MICHAEL EPITAXIAL REACTOR OPERATOR, GEORGINA S 271.3 INTESTINAL DISACCHARIDASE DEFICIENCIES A ND DISACCHARIDE MALABSORPTION 04/11/2008 MICHAEL EPITAXIAL REACTOR OPERATOR, GEORGINA S 401.1 HYPERTENSION, BENIGN ESSENTIAL 04/11/2008 MICHAEL EPITAXIAL REACTOR OPERATOR, GEORGINA S 414.00 CORONARY ATHEROSCLEROSIS OF UNSPECIFIED TYPE OF VESSEL TORRES MARTINEZ OR GRAFT 04/11/2008 MICHAEL EPITAXIAL REACTOR OPERATOR, GEORGINA S 530.81 GERD 04/11/2008 MICHAEL EPITAXIAL REACTOR OPERATOR, GEORGINA S 271.3 INTESTINAL DISACCHARIDASE DEFICIENCIES A ND DISACCHARIDE MALABSORPTION 04/11/2008 MICHAEL EPITAXIAL REACTOR OPERATOR, GEORGINA S 401.1 HYPERTENSION, BENIGN ESSENTIAL 04/11/2008 MICHAEL EPITAXIAL REACTOR OPERATOR, GEORGINA S 414.00 CORONARY ATHEROSCLEROSIS OF UNSPECIFIED TYPE OF VESSEL TORRES MARTINEZ OR GRAFT 04/11/2008 MICHAEL EPITAXIAL REACTOR OPERATOR, GEORGINA S 530.81 GERD 04/11/2008 MICHAEL EPITAXIAL REACTOR OPERATOR, GEORGINA S 271.3 INTESTINAL DISACCHARIDASE DEFICIENCIES A ND DISACCHARIDE MALABSORPTION 04/11/2008 MICHAEL EPITAXIAL REACTOR OPERATOR, GEORGINA S 401.1 HYPERTENSION, BENIGN ESSENTIAL 04/11/2008 MICHAEL EPITAXIAL REACTOR OPERATOR, GEORGINA S 414.00 CORONARY ATHEROSCLEROSIS OF UNSPECIFIED TYPE OF VESSEL TORRES MARTINEZ OR GRAFT 04/11/2008 MICHAEL EPITAXIAL REACTOR OPERATOR, GEORGINA S 530.81 GERD 04/11/2008 MICHAEL EPITAXIAL REACTOR OPERATOR, GEORGINA S 271.3 INTESTINAL DISACCHARIDASE DEFICIENCIES A ND DISACCHARIDE MALABSORPTION 04/11/2008 MICHAEL EPITAXIAL REACTOR OPERATOR, GEORGINA S 401.1 HYPERTENSION, BENIGN ESSENTIAL 04/11/2008 MICHAEL EPITAXIAL REACTOR OPERATOR, GEORGINA S 414.00 CORONARY ATHEROSCLEROSIS OF UNSPECIFIED TYPE OF VESSEL TORRES MARTINEZ OR GRAFT 04/11/2008 MICHAEL EPITAXIAL REACTOR OPERATOR, GEORGINA S 530.81 GERD 04/11/2008 MICHAEL EPITAXIAL REACTOR OPERATOR, GEORGINA S 271.3 INTESTINAL DISACCHARIDASE DEFICIENCIES A ND DISACCHARIDE MALABSORPTION 04/11/2008 MICHAEL EPITAXIAL REACTOR OPERATOR, GEORGINA S 401.1 HYPERTENSION, BENIGN ESSENTIAL 04/11/2008 MICHAEL EPITAXIAL REACTOR OPERATOR, GEORGINA S 414.00 CORONARY ATHEROSCLEROSIS OF UNSPECIFIED TYPE OF VESSEL TORRES MARTINEZ OR GRAFT 04/11/2008 MICHAEL EPITAXIAL REACTOR OPERATOR, GEORGINA S 530.81 GERD 04/11/2008 MICHAEL EPITAXIAL REACTOR OPERATOR, GEORGINA S 271.3 INTESTINAL DISACCHARIDASE DEFICIENCIES A ND DISACCHARIDE MALABSORPTION 04/11/2008 MICHAEL EPITAXIAL REACTOR OPERATOR, GEORGINA S 401.1 HYPERTENSION, BENIGN ESSENTIAL 04/11/2008 MICHAEL EPITAXIAL REACTOR OPERATOR, GEORGINA S 414.00 CORONARY ATHEROSCLEROSIS OF UNSPECIFIED TYPE OF VESSEL TORRES MARTINEZ OR GRAFT 04/11/2008 MICHAEL NUNN, GEORGINA S 530.81 GERD 05/19/2008 HEIN DO, FREDO K 244.9 HYPOTHYROIDISM 05/19/2008 HEIN DO, FREDO K 244.9 HYPOTHYROIDISM 05/19/2008 MICHAEL NUNN GEORGINA S 244.9 HYPOTHYROIDISM 05/19/2008 MICHAEL NUNN GEORGINA S 244.9 HYPOTHYROIDISM 05/19/2008 244.9 HYPO THYROIDISM 05/19/2008 244.9 HYPO THYROIDISM 05/19/2008 244.9 HYPO THYROIDISM 05/19/2008 HOLLIE RODRIGUEZ APRNNDA S 244.9 HYPOTHYROIDISM 05/19/2008 DAVID LYON MD 244.9 HYPOTHYROIDISM 05/19/2008 MICHAEL EPITAXIAL REACTOR OPERATOR, GEORGINA S 244.9 HYPOTHYROIDISM 05/19/2008 MICHAEL EPITAXIAL REACTOR OPERATOR, GEORGINA S 244.9 HYPOTHYROIDISM 05/19/2008 MICHAEL EPITAXIAL REACTOR OPERATOR, GEORGINA S 244.9 HYPOTHYROIDISM 05/19/2008 MICHAEL EPITAXIAL REACTOR OPERATOR, GEORGINA S 244.9 HYPOTHYROIDISM 05/19/2008 MICHAEL EPITAXIAL REACTOR OPERATOR, GEORGINA S 244.9 HYPOTHYROIDISM 05/19/2008 MICHAEL EPITAXIAL REACTOR OPERATOR, GEORGINA S 244.9 HYPOTHYROIDISM 05/19/2008 MICHAEL EPITAXIAL REACTOR OPERATOR, GEORGINA S 244.9 HYPOTHYROIDISM 05/19/2008 MICHAEL EPITAXIAL REACTOR OPERATOR, GEORGINA S 244.9 HYPOTHYROIDISM 05/19/2008 MICHAEL EPITAXIAL REACTOR OPERATOR, GEORGINA S 244.9 HYPOTHYROIDISM 05/19/2008 MICHAEL EPITAXIAL REACTOR OPERATOR, GEORGINA S 244.9 HYPOTHYROIDISM 05/19/2008 MICHAEL EPITAXIAL REACTOR OPERATOR, GEORGINA S 244.9 HYPOTHYROIDISM 08/23/2008 HEIN DO FREDO K V58.69 taking high-risk medication 08/23/2008 HEIN DOJOANA K V58.69 taking high-risk medication 08/23/2008 HOLLIE RODRIGUEZ APRNNDA S V58.69 taking high-risk medication 08/23/2008 HOLLIE RODRIGUEZ APRNNDA S V58.69 taking high-risk medication 08/23/2008 V58.69 sherri ing high-risk medication 08/23/2008 V58.69 sherri ing high-risk medication 08/23/2008 V58.69 sherri ing high-risk medication 08/23/2008 STEVIE RODRIGUEZ APRNA S V58.69 taking high-risk medication 08/23/2008 DAVID LYON MD V58.6 9 taking high-risk medication 08/23/2008 HOLLIE RODRIGUEZ APRNNDA S V58.69 taking high-risk medication 08/23/2008 HOLLIE RODRIGUEZ APRNNDA S V58.69 taking high-risk medication 08/23/2008 STEVIE RODRIGUEZ APRNA S V58.69 taking high-risk medication 08/23/2008 STEVIE RODRIGUEZ APRNA S V58.69 taking high-risk medication 08/23/2008 MICHAEL EPITAXIAL REACTOR OPERATOR, GEORGINA S V58.69 taking high-risk medication 08/23/2008 MICHAEL EPITAXIAL REACTOR OPERATOR, GEORGINA S V58.69 taking high-risk medication 08/23/2008 MICHAEL EPITAXIAL REACTOR OPERATOR, GEORGINA S V58.69 taking high-risk medication 08/23/2008 MICHAEL EPITAXIAL REACTOR OPERATOR, GEORGINA S V58.69 taking high-risk medication 08/23/2008 MICHAEL EPITAXIAL REACTOR OPERATOR, GEORGINA S V58.69 taking high-risk medication 08/23/2008 MICHAEL EPITAXIAL REACTOR OPERATOR, GEORGINA S V58.69 taking high-risk medication 08/23/2008 MICHAEL EPITAXIAL REACTOR OPERATOR, GEORGINA S V58.69 taking high-risk medication 09/27/2008 HEIN DO FREDO K 250.00 DIABETES MELLITUS WITHOUT MENTION OF COMPLICATION TYPE II OR UNSPECIFIED TYPE NOT STATED UNCONTROLLED 09/27/2008 ANGEL LUIS MICHAELS FREDO K 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 09/27/2008 FREDO HEIN DO K 729.5 PAIN IN LIMB 09/27/2008 JOAN HEIN DOA K 250.00 DIABETES MELLITUS WITHOUT MENTION OF COMPLICATION TYPE II OR UNSPECIFIED TYPE NOT STATED UNCONTROLLED 09/27/2008 JOAN HEIN DOA K 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 09/27/2008 JOAN HEIN DOA K 729.5 PAIN IN LIMB 09/27/2008 MICHAEL EPITAXIAL REACTOR OPERATOR, GEORGINA S 250.00 DIABETES MELLITUS WITHOUT MENTION OF COM PLICATION TYPE II OR UNSPECIFIED TYPE NOT STATED UNCONTROLLED 09/27/2008 HOLLIE RODRIGUEZ APRNNDA S 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 09/27/2008 MICHAEL EPITAXIAL REACTOR OPERATOR, GEORGINA S 729.5 PAIN IN LIMB 09/27/2008 MICHAEL EPITAXIAL REACTOR OPERATOR, GEORGINA S 250.00 DIABETES MELLITUS WITHOUT MENTION OF COM PLICATION TYPE II OR UNSPECIFIED TYPE NOT STATED UNCONTROLLED 09/27/2008 MICHAEL EPITAXIAL REACTOR OPERATOR, GEORGINA S 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 09/27/2008 MICHAEL EPITAXIAL REACTOR OPERATOR, GEORGINA S 729.5 PAIN IN LIMB 09/27/2008 250.00 QUANG BETES MELLITUS WITHOUT MENTION OF COMPLICATION TYPE II OR UNSPECIFIED TYPE NOT STATED UNCONTROLLED 09/27/2008 414.01 COR ONARY ATHEROSCLEROSIS OF TORRES MARTINEZ CORONARY ARTERY 09/27/2008 729.5 PAIN IN LIMB 09/27/2008 250.00 QUANG BETES MELLITUS WITHOUT MENTION OF COMPLICATION TYPE II OR UNSPECIFIED TYPE NOT STATED UNCONTROLLED 09/27/2008 414.01 COR ONARY ATHEROSCLEROSIS OF TORRES MARTINEZ CORONARY ARTERY 09/27/2008 729.5 PAIN IN LIMB 09/27/2008 250.00 QUANG BETES MELLITUS WITHOUT MENTION OF COMPLICATION TYPE II OR UNSPECIFIED TYPE NOT STATED UNCONTROLLED 09/27/2008 414.01 COR ONARY ATHEROSCLEROSIS OF TORRES MARTINEZ CORONARY ARTERY 09/27/2008 729.5 PAIN IN LIMB 09/27/2008 MICHAEL NUNN GEORGINA S 250.00 DIABETES MELLITUS WITHOUT MENTION OF COM PLICATION TYPE II OR UNSPECIFIED TYPE NOT STATED UNCONTROLLED 09/27/2008 MICHAEL NUNN GEORGINA S 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 09/27/2008 HOLLIE RODRIGUEZ APRNNDA S 729.5 PAIN IN LIMB 09/27/2008 DAVID LYON MD 250.0 0 DIABETES MELLITUS WITHOUT MENTION OF COMPLICATION TYPE II OR UNSPECIFIED TYPE NOT STATED UNCONTROLLED 09/27/2008 DAVID LYON MD 414.0 1 CORONARY ATHEROSCLEROSIS OF TORRES MARTINEZ CORONARY ARTERY 09/27/2008 DAVID LYON MD 729.5 PAIN IN LIMB 09/27/2008 MICHAEL NUNN GEORGINA S 250.00 DIABETES MELLITUS WITHOUT MENTION OF COM PLICATION TYPE II OR UNSPECIFIED TYPE NOT STATED UNCONTROLLED 09/27/2008 HOLLIE RODRIGUEZ APRNNDA S 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 09/27/2008 HOLLIE RODRIGUEZ APRNNDA S 729.5 PAIN IN LIMB 09/27/2008 MICHAEL NUNN GEORGINA S 250.00 DIABETES MELLITUS WITHOUT MENTION OF COM PLICATION TYPE II OR UNSPECIFIED TYPE NOT STATED UNCONTROLLED 09/27/2008 MICHAEL NUNN GEORGINA S 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 09/27/2008 MICHAEL NUNN GEORGINA S 729.5 PAIN IN LIMB 09/27/2008 MICHAEL NUNN GEORGINA S 250.00 DIABETES MELLITUS WITHOUT MENTION OF COM PLICATION TYPE II OR UNSPECIFIED TYPE NOT STATED UNCONTROLLED 09/27/2008 MICHAEL NUNN GEORGINA S 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 09/27/2008 MICHAEL EPITAXIAL REACTOR OPERATOR, GEORGINA S 729.5 PAIN IN LIMB 09/27/2008 MICHAEL EPITAXIAL REACTOR OPERATOR, GEORGINA S 250.00 DIABETES MELLITUS WITHOUT MENTION OF COM PLICATION TYPE II OR UNSPECIFIED TYPE NOT STATED UNCONTROLLED 09/27/2008 MICHAEL EPITAXIAL REACTOR OPERATOR, GEORGINA S 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 09/27/2008 MICHAEL EPITAXIAL REACTOR OPERATOR, GEORGINA S 729.5 PAIN IN LIMB 09/27/2008 MICHAEL EPITAXIAL REACTOR OPERATOR, GEORGINA S 250.00 DIABETES MELLITUS WITHOUT MENTION OF COM PLICATION TYPE II OR UNSPECIFIED TYPE NOT STATED UNCONTROLLED 09/27/2008 MICHAEL EPITAXIAL REACTOR OPERATOR, GEORGINA S 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 09/27/2008 MICHAEL EPITAXIAL REACTOR OPERATOR, GEORGINA S 729.5 PAIN IN LIMB 09/27/2008 MICHAEL EPITAXIAL REACTOR OPERATOR, GEORGINA S 250.00 DIABETES MELLITUS WITHOUT MENTION OF COM PLICATION TYPE II OR UNSPECIFIED TYPE NOT STATED UNCONTROLLED 09/27/2008 MICHAEL EPITAXIAL REACTOR OPERATOR, GEORGINA S 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 09/27/2008 MICHAEL EPITAXIAL REACTOR OPERATOR, GEORGINA S 729.5 PAIN IN LIMB 09/27/2008 MICHAEL EPITAXIAL REACTOR OPERATOR, GEORGINA S 250.00 DIABETES MELLITUS WITHOUT MENTION OF COM PLICATION TYPE II OR UNSPECIFIED TYPE NOT STATED UNCONTROLLED 09/27/2008 MICHAEL EPITAXIAL REACTOR OPERATOR, GEORGINA S 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 09/27/2008 MICHAEL EPITAXIAL REACTOR OPERATOR, GEORGINA S 729.5 PAIN IN LIMB 09/27/2008 MICHAEL EPITAXIAL REACTOR OPERATOR, GEORGINA S 250.00 DIABETES MELLITUS WITHOUT MENTION OF COM PLICATION TYPE II OR UNSPECIFIED TYPE NOT STATED UNCONTROLLED 09/27/2008 MICHAEL EPITAXIAL REACTOR OPERATOR, GEORGINA S 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 09/27/2008 MICHAEL EPITAXIAL REACTOR OPERATOR, GEORGINA S 729.5 PAIN IN LIMB 09/27/2008 MICHAEL EPITAXIAL REACTOR OPERATOR, GEORGINA S 250.00 DIABETES MELLITUS WITHOUT MENTION OF COM PLICATION TYPE II OR UNSPECIFIED TYPE NOT STATED UNCONTROLLED 09/27/2008 MICHAEL EPITAXIAL REACTOR OPERATOR GEORGINA S 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 09/27/2008 MICHAEL EPITAXIAL REACTOR OPERATOR, GEORGINA S 729.5 PAIN IN LIMB 09/27/2008 MICHAEL EPITAXIAL REACTOR OPERATOR, GEORGINA S 250.00 DIABETES MELLITUS WITHOUT MENTION OF COM PLICATION TYPE II OR UNSPECIFIED TYPE NOT STATED UNCONTROLLED 09/27/2008 MICHAEL EPITAXIAL REACTOR OPERATOR, GEORGINA S 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 09/27/2008 MICHAEL EPITAXIAL REACTOR OPERATOR, GEORGINA S 729.5 PAIN IN LIMB 09/27/2008 MICHAEL EPITAXIAL REACTOR OPERATOR, GEORGINA S 250.00 DIABETES MELLITUS WITHOUT MENTION OF COM PLICATION TYPE II OR UNSPECIFIED TYPE NOT STATED UNCONTROLLED 09/27/2008 MICHAEL EPITAXIAL REACTOR OPERATOR, GEORGINA S 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 09/27/2008 MICHAEL EPITAXIAL REACTOR OPERATOR, GEORGINA S 729.5 PAIN IN LIMB 10/13/2008 HEIN DO, FREDO K 271.9 GLUCOSE INTOLERANCE 10/13/2008 HEIN DO, FREDO K 271.9 GLUCOSE INTOLERANCE 10/13/2008 MICHAEL EPITAXIAL REACTOR OPERATOR, GEORGINA S 271.9 GLUCOSE INTOLERANCE 10/13/2008 MICHAEL EPITAXIAL REACTOR OPERATOR, GEORGINA S 271.9 GLUCOSE INTOLERANCE 10/13/2008 271.9 GLUC OSE INTOLERANCE 10/13/2008 271.9 GLUC OSE INTOLERANCE 10/13/2008 271.9 GLUC OSE INTOLERANCE 10/13/2008 MICHAEL EPITAXIAL REACTOR OPERATOR, GEORGINA S 271.9 GLUCOSE INTOLERANCE 10/13/2008 DAVID LYON MD 271.9 GLUCOSE INTOLERANCE 10/13/2008 MICHAEL EPITAXIAL REACTOR OPERATOR, GEORGINA S 271.9 GLUCOSE INTOLERANCE 10/13/2008 MICHAEL EPITAXIAL REACTOR OPERATOR, GEORGINA S 271.9 GLUCOSE INTOLERANCE 10/13/2008 MICHAEL EPITAXIAL REACTOR OPERATOR, GEORGINA S 271.9 GLUCOSE INTOLERANCE 10/13/2008 MICHAEL EPITAXIAL REACTOR OPERATOR, GEORGINA S 271.9 GLUCOSE INTOLERANCE 10/13/2008 MICHAEL EPITAXIAL REACTOR OPERATOR, GEORGINA S 271.9 GLUCOSE INTOLERANCE 10/13/2008 MICHAEL EPITAXIAL REACTOR OPERATOR, GEORGINA S 271.9 GLUCOSE INTOLERANCE 10/13/2008 MICHAEL EPITAXIAL REACTOR OPERATOR, GEORGINA S 271.9 GLUCOSE INTOLERANCE 10/13/2008 MICHAEL EPITAXIAL REACTOR OPERATOR, GEORGINA S 271.9 GLUCOSE INTOLERANCE 10/13/2008 MICHAEL EPITAXIAL REACTOR OPERATOR, GEORGINA S 271.9 GLUCOSE INTOLERANCE 10/13/2008 MICHAEL EPITAXIAL REACTOR OPERATOR, GEORGINA S 271.9 GLUCOSE INTOLERANCE 10/13/2008 MICHAEL EPITAXIAL REACTOR OPERATOR, GEORGINA S 271.9 GLUCOSE INTOLERANCE 04/03/2009 FREDO HEIN DO V72.31 Pelvic Exam (Internal) 04/03/2009 HEIN FREDO MICHAELS K V72.31 Pelvic Exam (Internal) 04/03/2009 MICHAEL EPITAXIAL REACTOR OPERATOR, GEORGINA S V72.31 Pelvic Exam (Internal) 04/03/2009 MICHAEL EPITAXIAL REACTOR OPERATOR, GEORGINA S V72.31 Pelvic Exam (Internal) 04/03/2009 V72.31 Pel tom Exam (Internal) 04/03/2009 V72.31 Pel tom Exam (Internal) 04/03/2009 V72.31 Pel tom Exam (Internal) 04/03/2009 MICHAEL EPITAXIAL REACTOR OPERATOR, GEORGINA S V72.31 Pelvic Exam (Internal) 04/03/2009 SONALI WATTERS, V72.3 1 Pelvic Exam (Internal) 04/03/2009 MICHAEL EPITAXIAL REACTOR OPERATOR, GEORGINA S V72.31 Pelvic Exam (Internal) 04/03/2009 MICHAEL EPITAXIAL REACTOR OPERATOR, GEORGINA S V72.31 Pelvic Exam (Internal) 04/03/2009 MICHAEL EPITAXIAL REACTOR OPERATOR, GEORGINA S V72.31 Pelvic Exam (Internal) 04/03/2009 MICHAEL EPITAXIAL REACTOR OPERATOR, GEORGINA S V72.31 Pelvic Exam (Internal) 04/03/2009 MICHAEL EPITAXIAL REACTOR OPERATOR, GEORGINA S V72.31 PELVIC EXAM (INTERNAL) 04/03/2009 MICHAEL EPITAXIAL REACTOR OPERATOR, GEORGINA S V72.31 PELVIC EXAM (INTERNAL) 04/03/2009 MICHAEL EPITAXIAL REACTOR OPERATOR, GEORGINA S V72.31 PELVIC EXAM (INTERNAL) 04/03/2009 MICHAEL EPITAXIAL REACTOR OPERATOR, GEORGINA S V72.31 PELVIC EXAM (INTERNAL) 04/03/2009 MICHAEL EPITAXIAL REACTOR OPERATOR, GEORGINA S V72.31 PELVIC EXAM (INTERNAL) 04/03/2009 MICHAEL EPITAXIAL REACTOR OPERATOR, GEORGINA S V72.31 PELVIC EXAM (INTERNAL) 04/03/2009 MICHAEL EPITAXIAL REACTOR OPERATOR, GEORGINA S V72.31 PELVIC EXAM (INTERNAL) 04/19/2009 FREDO HEIN DO 793.80 abnormal mammogram 04/19/2009 HEIN DO, FREDO K 793.80 abnormal mammogram 04/19/2009 MICHAEL EPITAXIAL REACTOR OPERATOR, GEORGINA S 793.80 abnormal mammogram 04/19/2009 MICHAEL EPITAXIAL REACTOR OPERATOR, GEORGINA S 793.80 abnormal mammogram 04/19/2009 793.80 abn ormal mammogram 04/19/2009 793.80 abn ormal mammogram 04/19/2009 793.80 abn ormal mammogram 04/19/2009 MICHAEL EPITAXIAL REACTOR OPERATOR, GEORGINA S 793.80 abnormal mammogram 04/19/2009 DAVID LYON MD 793.8 0 abnormal mammogram 04/19/2009 MICHAEL EPITAXIAL REACTOR OPERATOR, GEORGINA S 793.80 abnormal mammogram 04/19/2009 MICHAEL EPITAXIAL REACTOR OPERATOR, GEORGINA S 793.80 abnormal mammogram 04/19/2009 MICHAEL EPITAXIAL REACTOR OPERATOR, GEORGINA S 793.80 abnormal mammogram 04/19/2009 MICHAEL EPITAXIAL REACTOR OPERATOR, GEORGINA S 793.80 abnormal mammogram 04/19/2009 MICHAEL EPITAXIAL REACTOR OPERATOR, GEORGINA S 793.80 ABNORMAL MAMMOGRAM 04/19/2009 MICHAEL EPITAXIAL REACTOR OPERATOR, GEORGINA S 793.80 ABNORMAL MAMMOGRAM 04/19/2009 MICHAEL EPITAXIAL REACTOR OPERATOR, GEORGINA S 793.80 ABNORMAL MAMMOGRAM 04/19/2009 MICHAEL EPITAXIAL REACTOR OPERATOR, GEORGINA S 793.80 ABNORMAL MAMMOGRAM 04/19/2009 MICHAEL EPITAXIAL REACTOR OPERATOR, GEORGINA S 793.80 ABNORMAL MAMMOGRAM 04/19/2009 MICHAEL EPITAXIAL REACTOR OPERATOR, GEORGINA S 793.80 ABNORMAL MAMMOGRAM 04/19/2009 MICHAEL EPITAXIAL REACTOR OPERATOR, GEORGINA S 793.80 ABNORMAL MAMMOGRAM 06/12/2009 HEIN DO, FREDO K 496 COPD 06/12/2009 HEIN DO, FREDO K 496 COPD 06/12/2009 MICHAEL EPITAXIAL REACTOR OPERATOR, GEORGINA S 496 COPD 06/12/2009 MICHAEL EPITAXIAL REACTOR OPERATOR, GEORGINA S 496 COPD 06/12/2009 496 COPD 06/12/2009 496 COPD 06/12/2009 496 COPD 06/12/2009 MICHAEL VEGAN, GEORGINA S 496 COPD 06/12/2009 DAVID LYON MD 496 COPD 06/12/2009 MICHAEL EPITAXIAL REACTOR OPERATOR, GEORGINA S 496 COPD 06/12/2009 MICHAEL EPITAXIAL REACTOR OPERATOR, GEORGINA S 496 COPD 06/12/2009 MICHAEL EPITAXIAL REACTOR OPERATOR, GEORGINA S 496 COPD 06/12/2009 MICHAEL EPITAXIAL REACTOR OPERATOR, GEORGINA S 496 COPD 06/12/2009 MICHAEL EPITAXIAL REACTOR OPERATOR, GEORGINA S 496 COPD 06/12/2009 MICHAEL EPITAXIAL REACTOR OPERATOR, GEORGINA S 496 COPD 06/12/2009 MICHAEL EPITAXIAL REACTOR OPERATOR, GEORGINA S 496 COPD 06/12/2009 MICHAEL EPITAXIAL REACTOR OPERATOR, GEORGINA S 496 COPD 06/12/2009 MICHAEL EPITAXIAL REACTOR OPERATOR, GEORGINA S 496 COPD 06/12/2009 MICHAEL EPITAXIAL REACTOR OPERATOR, GEORGINA S 496 COPD 06/12/2009 MICHAEL EPITAXIAL REACTOR OPERATOR, GEORGINA S 496 COPD 10/08/2010 FREDO HEIN DO 719.46 PAIN IN JOINT INVOLVING LOWER LEG 10/08/2010 FREDO HEIN DO 719.46 PAIN IN JOINT INVOLVING LOWER LEG 10/08/2010 MICHAEL VEGAN, GEORGINA S 719.46 PAIN IN JOINT INVOLVING LOWER LEG 10/08/2010 MICHAEL VEGAN, GEORGINA S 719.46 PAIN IN JOINT INVOLVING LOWER LEG 10/08/2010 719.46 TARUN N IN JOINT INVOLVING LOWER LEG 10/08/2010 719.46 TARUN N IN JOINT INVOLVING LOWER LEG 10/08/2010 719.46 TARUN N IN JOINT INVOLVING LOWER LEG 10/08/2010 HOLLIE RODRIGUEZ APRNNDA S 719.46 PAIN IN JOINT INVOLVING LOWER LEG 10/08/2010 DAVID LYON MD 719.4 6 PAIN IN JOINT INVOLVING LOWER LEG 10/08/2010 MICHAEL EPITAXIAL REACTOR OPERATOR, GEORGINA S 719.46 PAIN IN JOINT INVOLVING LOWER LEG 10/08/2010 HOLLIE RODRIGUEZ APRNNDA S 719.46 PAIN IN JOINT INVOLVING LOWER LEG 10/08/2010 HOLLIE RODRIGUEZ APRNNDA S 719.46 PAIN IN JOINT INVOLVING LOWER LEG 10/08/2010 HOLLIE RODRIGUEZ APRNNDA S 719.46 PAIN IN JOINT INVOLVING LOWER LEG 10/08/2010 MICHAEL EPITAXIAL REACTOR OPERATOR, GEORGINA S 719.46 PAIN IN JOINT INVOLVING LOWER LEG 10/08/2010 MICHAEL EPITAXIAL REACTOR OPERATOR, GEORGINA S 719.46 PAIN IN JOINT INVOLVING LOWER LEG 10/08/2010 MICHAEL EPITAXIAL REACTOR OPERATOR, GEORGINA S 719.46 PAIN IN JOINT INVOLVING LOWER LEG 10/08/2010 MICHAEL EPITAXIAL REACTOR OPERATOR, GEORGINA S 719.46 PAIN IN JOINT INVOLVING LOWER LEG 10/08/2010 MICHAEL EPITAXIAL REACTOR OPERATOR, GEORGINA S 719.46 PAIN IN JOINT INVOLVING LOWER LEG 10/08/2010 MICHAEL EPITAXIAL REACTOR OPERATOR, GEORGINA S 719.46 PAIN IN JOINT INVOLVING LOWER LEG 10/08/2010 MICHAEL EPITAXIAL REACTOR OPERATOR, GEORGINA S 719.46 PAIN IN JOINT INVOLVING LOWER LEG 05/20/2011 HEIN DO, FREDO K V04.81 FLU DX (MEDICARE ONLY) 05/20/2011 HEIN DO FREDO K V04.81 FLU DX (MEDICARE ONLY) 05/20/2011 MICHAEL EPITAXIAL REACTOR OPERATOR, GEORGINA S V04.81 FLU DX (MEDICARE ONLY) 05/20/2011 MICHAEL EPITAXIAL REACTOR OPERATOR, GEORGINA S V04.81 FLU DX (MEDICARE ONLY) 05/20/2011 V04.81 FLU DX (MEDICARE ONLY) 05/20/2011 V04.81 FLU DX (MEDICARE ONLY) 05/20/2011 V04.81 FLU DX (MEDICARE ONLY) 05/20/2011 MICHAEL NUNN GEORGINA S V04.81 FLU DX (MEDICARE ONLY) 05/20/2011 DAVID LYON MD V04.8 1 FLU DX (MEDICARE ONLY) 05/20/2011 MICHAEL EPITAXIAL REACTOR OPERATOR, GEORGINA S V04.81 FLU DX (MEDICARE ONLY) 05/20/2011 MICHAEL EPITAXIAL REACTOR OPERATOR GEORGINA S V04.81 FLU DX (MEDICARE ONLY) 05/20/2011 MICHAEL EPITAXIAL REACTOR OPERATOR GEORGINA S V04.81 FLU DX (MEDICARE ONLY) 05/20/2011 MICHAEL EPITAXIAL REACTOR OPERATOR GEORGINA S V04.81 FLU DX (MEDICARE ONLY) 05/20/2011 MICHAEL EPITAXIAL REACTOR OPERATOR GEORGINA S V04.81 FLU DX (MEDICARE ONLY) 05/20/2011 MICHAEL EPITAXIAL REACTOR OPERATOR, GEORGINA S V04.81 FLU DX (MEDICARE ONLY) 05/20/2011 MICHAEL EPITAXIAL REACTOR OPERATOR, GEORGINA S V04.81 FLU DX (MEDICARE ONLY) 05/20/2011 MICHAEL EPITAXIAL REACTOR OPERATOR, GEORGINA S V04.81 FLU DX (MEDICARE ONLY) 05/20/2011 MICHAEL EPITAXIAL REACTOR OPERATOR, GEORGINA S V04.81 FLU DX (MEDICARE ONLY) 05/20/2011 MICHAEL EPITAXIAL REACTOR OPERATOR, GEORGINA S V04.81 FLU DX (MEDICARE ONLY) 05/20/2011 MICHAEL EPITAXIAL REACTOR OPERATOR, GEORGINA S V04.81 FLU DX (MEDICARE ONLY) 06/17/2012 HEIN DO, FREDO K 733.92 CHONDROMALACIA 06/17/2012 HEIN DO, FREDO K 733.92 CHONDROMALACIA 06/17/2012 MICHAEL EPITAXIAL REACTOR OPERATOR, GEORGINA S 733.92 CHONDROMALACIA 06/17/2012 MICHAEL EPITAXIAL REACTOR OPERATOR, GEORGINA S 733.92 CHONDROMALACIA 06/17/2012 733.92 CHO NDROMALACIA 06/17/2012 733.92 CHO NDROMALACIA 06/17/2012 733.92 CHO NDROMALACIA 06/17/2012 MICHAEL EPITAXIAL REACTOR OPERATOR, GEORGINA S 733.92 CHONDROMALACIA 06/17/2012 SONALI WATTERS, 733.9 2 CHONDROMALACIA 06/17/2012 MICHAEL EPITAXIAL REACTOR OPERATOR, GEORGINA S 733.92 CHONDROMALACIA 06/17/2012 MICHAEL EPITAXIAL REACTOR OPERATOR, GEORGINA S 733.92 CHONDROMALACIA 06/17/2012 MICHAEL EPITAXIAL REACTOR OPERATOR, GEORGINA S 733.92 CHONDROMALACIA 06/17/2012 MICHAEL EPITAXIAL REACTOR OPERATOR, GEORGINA S 733.92 CHONDROMALACIA 06/17/2012 MICHAEL EPITAXIAL REACTOR OPERATOR, GEORGINA S 733.92 CHONDROMALACIA 06/17/2012 MICHAEL EPITAXIAL REACTOR OPERATOR, GEORGINA S 733.92 CHONDROMALACIA 06/17/2012 MICHAEL EPITAXIAL REACTOR OPERATOR, GEORGINA S 733.92 CHONDROMALACIA 06/17/2012 MICHAEL EPITAXIAL REACTOR OPERATOR, GEORGINA S 733.92 CHONDROMALACIA 06/17/2012 MICHAEL EPITAXIAL REACTOR OPERATOR, GEORGINA S 733.92 CHONDROMALACIA 06/17/2012 MICHAEL EPITAXIAL REACTOR OPERATOR, GEORGINA S 733.92 CHONDROMALACIA 06/17/2012 MICHAEL EPITAXIAL REACTOR OPERATOR, GEORGINA S 733.92 CHONDROMALACIA 12/14/2012 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 12/14/2012 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 12/14/2012 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 12/14/2012 MICHAEL EPITAXIAL REACTOR OPERATOR, GEORGINA S V15.82 Nicotine abuse 12/14/2012 SONALI WATTERS, V15.8 2 Nicotine abuse 12/14/2012 MICHAEL EPITAXIAL REACTOR OPERATOR, GEORGINA S V15.82 Nicotine abuse 12/14/2012 MICHAEL EPITAXIAL REACTOR OPERATOR, GEORGINA S V15.82 Nicotine abuse 12/14/2012 MICHAEL EPITAXIAL REACTOR OPERATOR, GEORGINA S V15.82 Nicotine abuse 12/14/2012 MICHAEL EPITAXIAL REACTOR OPERATOR, GEORGINA S V15.82 Nicotine abuse 12/14/2012 MICHAEL EPITAXIAL REACTOR OPERATOR, GEORGINA S V15.82 Nicotine abuse 12/14/2012 MICHAEL EPITAXIAL REACTOR OPERATOR, GEORGINA S V15.82 Nicotine abuse 12/14/2012 MICHAEL EPITAXIAL REACTOR OPERATOR, GEORGINA S V15.82 Nicotine abuse 12/14/2012 MICHAEL EPITAXIAL REACTOR OPERATOR, GEORGINA S V15.82 Nicotine abuse 12/14/2012 MICHAEL EPITAXIAL REACTOR OPERATOR, GEORGINA S V15.82 Nicotine abuse 12/14/2012 MICHALE EPITAXIAL REACTOR OPERATOR, GEORGINA S V15.82 Nicotine abuse 12/14/2012 MICHAEL EPITAXIAL REACTOR OPERATOR, GEORGINA S V15.82 Nicotine abuse 03/09/2013 SONALI WATTERS, DAVID Hairston Ot 244 .9 HYPOTHYROIDISM NOS 03/09/2013 DAVID LYON MD Ot 250.00 DIAB VIKASH WO COMPL, TYPE II OR UNSPEC TY 03/09/2013 DAVID LYON MD Ot 305 .1 TOBACCO USE DISORDER 03/09/2013 DAVID LYON MD Ot 401 .9 HYPERTENSION NOS 03/09/2013 DAVID LYON MD Ot 427.31 ATRIAL FIBRILLATION 03/09/2013 DAVID LYON MD Ot 491.21 OBSTR CHRONIC BRONCHITIS, W (ACUTE) EXAC 03/09/2013 DAVID LYON MD Ot 625 .6 FEM STRESS INCONTINENCE 03/09/2013 DAVID LYON MD Ot V03.82 PROPHYLACTIC VACC AGAINST STREPTOCOCCUS 05/26/2013 SONALI WATTERS, V76.1 0 BREAST CANCER SCREENING 05/26/2013 MICHAEL EPITAXIAL REACTOR OPERATOR, GEORGINA S V76.10 BREAST CANCER SCREENING 05/26/2013 MICHAEL EPITAXIAL REACTOR OPERATOR, GEORGINA S V76.10 BREAST CANCER SCREENING 05/26/2013 MICHAEL EPITAXIAL REACTOR OPERATOR, GEORGINA S V76.10 BREAST CANCER SCREENING 05/26/2013 MICHAEL EPITAXIAL REACTOR OPERATOR, GEORGINA S V76.10 BREAST CANCER SCREENING 05/26/2013 MICHAEL EPITAXIAL REACTOR OPERATOR, GEORGINA S V76.10 BREAST CANCER SCREENING 05/26/2013 MICHAEL EPITAXIAL REACTOR OPERATOR, GEORGINA S V76.10 BREAST CANCER SCREENING 05/26/2013 MICHAEL EPITAXIAL REACTOR OPERATOR, GEORGINA S V76.10 BREAST CANCER SCREENING 05/26/2013 MICHAEL EPITAXIAL REACTOR OPERATOR, GEORGINA S V76.10 BREAST CANCER SCREENING 05/26/2013 MICHAEL EPITAXIAL REACTOR OPERATOR, GEORGINA S V76.10 BREAST CANCER SCREENING 05/26/2013 MICHAEL EPITAXIAL REACTOR OPERATOR, GEORGINA S V76.10 BREAST CANCER SCREENING 05/26/2013 MICHAEL EPITAXIAL REACTOR OPERATOR, GEORGINA S V76.10 BREAST CANCER SCREENING 10/04/2013 MICHAEL EPITAXIAL REACTOR OPERATOR, GEORGINA S 079.99 VIRAL SYNDROME 10/04/2013 MICHAEL EPITAXIAL REACTOR OPERATOR, GEORGINA S 079.99 VIRAL SYNDROME 10/04/2013 MICHAEL EPITAXIAL REACTOR OPERATOR, GEORGINA S 079.99 VIRAL SYNDROME 10/04/2013 MICHAEL EPITAXIAL REACTOR OPERATOR, GEORGINA S 079.99 VIRAL SYNDROME 10/04/2013 MICHAEL EPITAXIAL REACTOR OPERATOR, GEORGINA S 079.99 VIRAL SYNDROME 10/04/2013 MICHAEL EPITAXIAL REACTOR OPERATOR, GEORGINA S 079.99 VIRAL SYNDROME 10/04/2013 MICHAEL EPITAXIAL REACTOR OPERATOR, GEORGINA S 079.99 VIRAL SYNDROME 10/04/2013 MICHAEL EPITAXIAL REACTOR OPERATOR, GEORGINA S 079.99 VIRAL SYNDROME 10/04/2013 MICHAEL EPITAXIAL REACTOR OPERATOR, GEORGINA S 079.99 VIRAL SYNDROME 06/20/2014 MICHAEL EPITAXIAL REACTOR OPERATOR, GEORGINA S V04.81 FLU SHOT 06/20/2014 MICHAEL EPITAXIAL REACTOR OPERATOR, GEORGINA S V76.12 MAMMOGRAM SCREENING 06/20/2014 HOLLIE RODRIGUEZ APRNNDA S V04.81 FLU SHOT 06/20/2014 MICHAEL EPITAXIAL REACTOR OPERATOR, GEORGINA S V76.12 MAMMOGRAM SCREENING 06/20/2014 MICHAEL NUNN, GEORGINA S V04.81 FLU SHOT 06/20/2014 MICHAEL EPITAXIAL REACTOR OPERATOR, GEORGINA S V76.12 MAMMOGRAM SCREENING 06/20/2014 MICHAEL VEGAN, GEORGINA S V04.81 FLU SHOT 06/20/2014 MICHAEL VEGAN, GEORGINA S V76.12 MAMMOGRAM SCREENING 07/03/2014 Ot 793.81 07/03/2014 Ot V76.12 07/03/2014 Ot 611.89 07/03/2014 GEORGINA RODRIGUEZ LIQUOR GRINDER MILL OPERATOR Ot 793.81 07/03/2014 MICHAEL GEORGINA LIQUOR GRINDER MILL OPERATOR Ot V76.12 07/03/2014 GEORGINA RODRIGUEZ LIQUOR GRINDER MILL OPERATOR Ot 793.82 07/03/2014 MICHAEL GEORGINA LIQUOR GRINDER MILL OPERATOR Ot 793.81 08/09/2014 EITAN MAZARIEGOS APRN Ot 793.89 08/15/2014 TIBURCIO WATTERS, PERRY J Ot 250. 00 08/15/2014 TIBURCIO WATTERS, BASHAR J Ot 272. 4 08/15/2014 TIBURCIO WATTERS, BASHAR J Ot 305. 1 08/15/2014 TIBURCIO WATTERS, BASJESI J Ot 401. 9 08/15/2014 TIBURCIO WATTERS, BASJESI J Ot 786. 50 08/15/2014 TIBURCIO WATTERS, BASHAR J Ot 272. 4 08/15/2014 TIBURCIO WATTERS, BASHAR J Ot 397. 0 08/15/2014 TIBURCIO WATTERS, BASHAR J Ot 401. 9 08/15/2014 TIBURCIO WATTERS, BASHAR J Ot 416. 8 08/15/2014 TIBURCIO WATTERS, BASHAR J Ot 424. 0 08/15/2014 TIBURCIO WATTERS, BASHAR J Ot 786. 50 08/29/2014 EITAN MAZARIEGOS EPITAXIAL REACTOR OPERATOR Ot 793.89 08/29/2014 TIBURCIO WATTERS, PERRY J Ot 272. 4 08/29/2014 TIBURCIO WATTERS, BASHAR J Ot 397. 0 08/29/2014 TIBURCIO WATTERS, BASHAR J Ot 401. 9 08/29/2014 TIBURCIO WATTERS, BASHAR J Ot 416. 8 08/29/2014 TIBURCIO WATTERS, PERRY Ferrari Ot 424. 0 08/29/2014 TIBURCIO WATTERS, PERRY J Ot 786. 50 08/29/2014 TIBURCIO WATTERS, PERRY J Ot 250. 00 08/29/2014 TIBURCIO WATTERS, PERRY J Ot 272. 4 08/29/2014 TIBURCIO WATTERS, PERRY Ferrari Ot 305. 1 08/29/2014 TIBURCIO WATTERS, PERRY J Ot 401. 9 08/29/2014 TIBURCIO WATTERS, PERRY Ferrari Ot 786. 50 08/12/2016 ANGEL CAMARENA 250.00 DIABETES MELLITUS WITHOUT MENTION OF COMPLICATION, TYPE II OR UNSPECIFIED TYPE, NOT STATED UNCONTROLLED 08/12/2016 ANGEL CAMARENA 401.0 MALIGNANT ESSENTIAL HYPERTENSION 08/12/2016 ANGEL CAMARENA 491.21 08/12/2016 ANGEL CAMARENA 715.16 OSTEOARTHROSIS, LOCALIZED, PRIMARY, INVOLVING LOWER LEG 08/12/2016 ANGEL CAMARENA E11.9 TYPE 2 DIABETES MELLITUS WITHOUT COMPLICATIONS 08/12/2016 ANGEL CAMARENA I10 ESSENTIAL (PRIMARY) HYPERTENSION 08/12/2016 ANGEL CAMARENA J44.1 CHRONIC OBSTRUCTIVE PULMONARY DISEASE W (ACUTE) EXACERBATION 08/12/2016 ANGEL CAMARENA M17.0 BILATERAL PRIMARY OSTEOARTHRITIS OF KNEE 08/12/2016 ANGEL CAMARENA V58.61 LONG-TERM (CURRENT) USE OF ANTICOAGULANTS 08/12/2016 ANGEL CAMARENA Z79.01 TELECOMMUNICATION SYSTEMS DESIGNER (CURRENT) USE OF ANTICOAGULANTS 08/12/2016 ANGEL CAMARENA 715.16 OSTEOARTHROSIS, LOCALIZED, PRIMARY, INVOLVING LOWER LEG 08/12/2016 ANGEL CAMARENA M17.0 BILATERAL PRIMARY OSTEOARTHRITIS OF KNEE 11/13/2016 [place] E03.9 HYPOTHYROIDISM, UNSPECIFIED 11/13/2016 [place] E11.9 TYPE 2 DIABETES MELLITUS WITHOUT COMPLICATIONS 11/13/2016 [place] E66.01 MORBID (SEVERE) OBESITY DUE TO EXCESS CALORIES 11/13/2016 [place] E78.5 HYPERLIPIDEMIA, UNSPECIFIED 11/13/2016 [place] G89.18 OTHER ACUTE POSTPROCEDURAL PAIN 11/13/2016 [place] I10 ESSENTIAL (PRIMARY) HYPERTENSION 11/13/2016 [place] 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 11/13/2016 [place] I48.91 UNSPECIFIED ATRIAL FIBRILLATION 11/13/2016 [place] K21.9 GASTRO-ESOPHAGEAL REFLUX DISEASE WITHOUT ESOPHAGITIS 11/13/2016 [place] M17.12 UNILATERAL PRIMARY OSTEOARTHRITIS, LEFT KNEE 11/13/2016 [place] Z72.0 TOBACCO USE 11/13/2016 [place] Z79.01 SENIOR LIVING (CURRENT) USE OF ANTICOAGULANTS 11/13/2016 MIGUE, ANGEL W 244.9 11/13/2016 MIGUE, ANGEL W 250.00 11/13/2016 MIGUE, ANGEL W 272.4 11/13/2016 MIGUE, ANGEL W 278.01 11/13/2016 MIGUE, ANGEL W 305.1 TOBACCO USE DISORDER 11/13/2016 MIGUE, ANGEL W 338.18 11/13/2016 MIGUE, ANGEL W 401.0 11/13/2016 MIGUE, ANGEL Pascual 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 11/13/2016 MIGUE, ANGEL W 427.31 11/13/2016 MIGUE, ANGEL W 530.81 ESOPHAGEAL REFLUX 11/13/2016 MIGUE, ANGEL Pascual E03.9 HYPOTHYROIDISM, UNSPECIFIED 11/13/2016 MIGUE, ANGEL Pascual E11.9 11/13/2016 MIGUE, ANGEL Pascual E66.01 MORBID (SEVERE) OBESITY DUE TO EXCESS CALORIES 11/13/2016 MIGUE, ANGEL Pascual E78.5 HYPERLIPIDEMIA, UNSPECIFIED 11/13/2016 MIGUE, ANGEL Pascual G89.18 11/13/2016 MIGUE, ANEGL Pascual I10 ESSENTIAL (PRIMARY) HYPERTENSION 11/13/2016 MIGUE, ANGEL Pascual 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 11/13/2016 MIGUE, ANGEL Pascual I48.91 UNSPECIFIED ATRIAL FIBRILLATION 11/13/2016 MIGUE, ANGEL Pascual K21.9 GASTRO- ESOPHAGEAL REFLUX DISEASE WITHOUT ESOPHAGITIS 11/13/2016 MIGUE, ANGEL López M17.12 11/13/2016 MIGUE, ANGEL Pascual V58.61 LONG-TERM (CURRENT) USE OF ANTICOAGULANTS 11/13/2016 MIGUE, ANGEL Pascual Z72.0 TOBACCO USE 11/13/2016 ANGEL CAMARENA Samara Z79.01 TELECOMMUNICATION SYSTEMS DESIGNER (CURRENT) USE OF ANTICOAGULANTS 11/18/2016 MIGUE, ANGEL 715.16 11/28/2016 GEORGINA RODRIGUEZ LIQUOR GRINDER MILL OPERATOR Ot 793.81 MAMMOGRAPHIC MICROCLACIFICATION 11/28/2016 GEORGINA RODRIGUEZ Ot V76.12 OTH SCREEN MAMMO-MALIGN NEOPLASM OF JOHNNY 11/28/2016 GEORGINA RODRIGUEZ LIQUOR GRINDER MILL OPERATOR Ot 793.82 INCONCLUSIVE MAMMOGRAM 11/28/2016 GEORGINA RODRIGUEZ LIQUOR GRINDER MILL OPERATOR Ot 793.81 MAMMOGRAPHIC MICROCLACIFICATION 11/28/2016 EITAN MAZARIEGOS EPITAXIAL REACTOR OPERATOR Ot 793.89 OTH (ABN) FINDINGS ON RADIOLOGICAL EXAMI 11/28/2016 PERRY DEY MD Ot 272. 4 HYPERLIPIDEMIA NEC/NOS 11/28/2016 PERRY DEY MD Ot 397. 0 TRICUSPID VALVE DISEASE 11/28/2016 PERRY DEY MD Ot 401. 9 HYPERTENSION NOS 11/28/2016 PERRY DEY MD Ot 416. 8 CHR PULMON HEART DIS NEC 11/28/2016 PERRY DEY MD Ot 424. 0 MITRAL VALVE DISORDER 11/28/2016 PERRY DEY MD Ot 786. 50 CHEST PAIN NOS 11/28/2016 PERRY DEY MD Ot 250. 00 DIAB VIKASH WO COMPL, TYPE II OR UNSPEC TY 11/28/2016 PERRY DEY MD Ot 272. 4 HYPERLIPIDEMIA NEC/NOS 11/28/2016 PERRY DEY MD Ot 305. 1 TOBACCO USE DISORDER 11/28/2016 PERRY DEY MD Ot 401. 9 HYPERTENSION NOS 11/28/2016 PERRY DEY MD Ot 786. 50 CHEST PAIN NOS 12/01/2016 GEORGINA RODRIGUEZ LIQUOR GRINDER MILL OPERATOR Ot 793.81 MAMMOGRAPHIC MICROCLACIFICATION 12/01/2016 GEORGINA RODRIGUEZ Ot V76.12 OTH SCREEN MAMMO-MALIGN NEOPLASM OF JOHNNY 12/01/2016 GEORGINA RODRIGUEZ LIQUOR GRINDER MILL OPERATOR Ot 793.82 INCONCLUSIVE MAMMOGRAM 12/01/2016 GEORGINA RODRIGUEZ LIQUOR GRINDER MILL OPERATOR Ot 793.81 MAMMOGRAPHIC MICROCLACIFICATION 12/01/2016 EITAN MAZARIEGOS EPITAXIAL REACTOR OPERATOR Ot 793.89 OTH (ABN) FINDINGS ON RADIOLOGICAL EXAMI 12/01/2016 PERRY DEY MD Ot 272. 4 HYPERLIPIDEMIA NEC/NOS 12/01/2016 PERRY DEY MD Ot 397. 0 TRICUSPID VALVE DISEASE 12/01/2016 PERRY DEY MD Ot 401. 9 HYPERTENSION NOS 12/01/2016 PERRY DEY MD Ot 416. 8 CHR PULMON HEART DIS NEC 12/01/2016 PERRY DEY MD Ot 424. 0 MITRAL VALVE DISORDER 12/01/2016 PERRY DEY MD Ot 786. 50 CHEST PAIN NOS 12/01/2016 PERRY DEY MD Ot 250. 00 DIAB VIKASH WO COMPL, TYPE II OR UNSPEC TY 12/01/2016 PERRY DEY MD Ot 272. 4 HYPERLIPIDEMIA NEC/NOS 12/01/2016 PERRY DEY MD Ot 305. 1 TOBACCO USE DISORDER 12/01/2016 PERRY DEY MD Ot 401. 9 HYPERTENSION NOS 12/01/2016 PERRY DEY MD Ot 786. 50 CHEST PAIN NOS 12/01/2016 EMMY MCARTHUR Ot E11.9 TYPE 2 DIABETES MELLITUS WITHOUT COMPLIC 12/01/2016 EMMY MCARTHUR Ot E78.2 MIXED HYPERLIPIDEMIA 12/01/2016 EMMY MCARTHUR Ot I10 ESSENTIAL (PRIMARY) HYPERTENSION 12/01/2016 EMMY MCARTHUR Ot I48.2 CHRONIC ATRIAL FIBRILLATION 12/02/2016 EMMY MCARTHUR Ot E11.9 TYPE 2 DIABETES MELLITUS WITHOUT COMPLIC 12/02/2016 EMMY MCARTHUR Ot E78.2 MIXED HYPERLIPIDEMIA 12/02/2016 EMMY MCARTHUR Ot I10 ESSENTIAL (PRIMARY) HYPERTENSION 12/02/2016 EMMY MCARTHUR Ot I48.2 CHRONIC ATRIAL FIBRILLATION 02/11/2017 GEORGINA RODRIGUEZ Ot Z12.13 ENCNTR SCREEN FOR MALIGNANT NEOPLASM OF 02/11/2017 GEORGINA RODRIGUEZ Ot Z12.39 ENCOUNTER FOR OTH SCREENING FOR MALIGNAN 04/17/2017 EMMY MCARTHUR Ot E11.9 TYPE 2 DIABETES MELLITUS WITHOUT COMPLIC 04/17/2017 EMMY MCARTHUR Ot E78.2 MIXED HYPERLIPIDEMIA 04/17/2017 EMMY MCARTHUR Ot I10 ESSENTIAL (PRIMARY) HYPERTENSION 04/17/2017 EMMY MCARTHUR Ot I48.2 CHRONIC ATRIAL FIBRILLATION 05/21/2017 GEORGINA RODRIGUEZ LIQUOR GRINDER MILL OPERATOR Ot 793.81 MAMMOGRAPHIC MICROCLACIFICATION 05/21/2017 GEORGINA RODRIGUEZ LIQUOR GRINDER MILL OPERATOR Ot V76.12 OTH SCREEN MAMMO-MALIGN NEOPLASM OF JOHNNY 05/21/2017 GEORGINA RODRIGUEZ LIQUOR GR[employer] MILL OPERATOR Ot 793.82 INCONCLUSIVE MAMMOGRAM 05/21/2017 GEORGINA RODRIGUEZ LIQUOR GR[employer] MILL OPERATOR Ot 793.81 MAMMOGRAPHIC MICROCLACIFICATION 05/21/2017 EITAN MAZARIEGOS EPITAXIAL REACTOR OPERATOR Ot 793.89 OTH (ABN) FINDINGS ON RADIOLOGICAL EXAMI 05/21/2017 PERRY DEY MD Ot 272. 4 HYPERLIPIDEMIA NEC/NOS 05/21/2017 PERRY DEY MD Ot 397. 0 TRICUSPID VALVE DISEASE 05/21/2017 PERRY DEY MD Ot 401. 9 HYPERTENSION NOS 05/21/2017 PERRY DEY MD Ot 416. 8 CHR PULMON HEART DIS NEC 05/21/2017 PERRY DEY MD Ot 424. 0 MITRAL VALVE DISORDER 05/21/2017 PERRY DEY MD Ot 786. 50 CHEST PAIN NOS 05/21/2017 PERRY DEY MD Ot 250. 00 DIAB VIKASH WO COMPL, TYPE II OR UNSPEC TY 05/21/2017 PERRY DEY MD Ot 272. 4 HYPERLIPIDEMIA NEC/NOS 05/21/2017 PERRY DEY MD Ot 305. 1 TOBACCO USE DISORDER 05/21/2017 PERRY DEY MD Ot 401. 9 HYPERTENSION NOS 05/21/2017 PERRY DEY MD Ot 786. 50 CHEST PAIN NOS 05/21/2017 EMMY MCARTHUR Ot E11.9 TYPE 2 DIABETES MELLITUS WITHOUT COMPLIC 05/21/2017 EMMY MCARTHUR Ot E78.2 MIXED HYPERLIPIDEMIA 05/21/2017 EMMY MCARTHUR Ot I10 ESSENTIAL (PRIMARY) HYPERTENSION 05/21/2017 SHAMA RIVEROEMMY Ot I48.2 CHRONIC ATRIAL FIBRILLATION 05/21/2017 Ot 790.29 05/21/2017 Ot 793.81 05/21/2017 Ot V76.12 05/21/2017 Ot 611.89 05/21/2017 DAVIDSON-DULCE RIVERO EMMY Menon Ot E11.9 TYPE 2 DIABETES MELLITUS WITHOUT COMPLIC 05/21/2017 DAVIDSONSVEN RIVERO EMMY Menon Ot E78.2 MIXED HYPERLIPIDEMIA 05/21/2017 DAVIDSON-DULCE RIVERO EMMY Menon Ot I10 ESSENTIAL (PRIMARY) HYPERTENSION 05/21/2017 DAVIDSONFREDERICK MAT EMMY Menon Ot I48.2 CHRONIC ATRIAL FIBRILLATION 06/19/2017 DAVIDSON-DULCE RIVERO EMMY Menon Ot E11.9 TYPE 2 DIABETES MELLITUS WITHOUT COMPLIC 06/19/2017 DAVIDSON-DULCE RIVERO EMMY Menon Ot E78.2 MIXED HYPERLIPIDEMIA 06/19/2017 DAVIDSON-DULCE RIVERO EMMY Menon Ot I10 ESSENTIAL (PRIMARY) HYPERTENSION 06/19/2017 SHAMA RIVERO EMMY Menon Ot I48.2 CHRONIC ATRIAL FIBRILLATION 08/12/2017 GEORGINA RODRIGUEZ LIQUOR GRINDER MILL OPERATOR Ot 793.81 MAMMOGRAPHIC MICROCLACIFICATION 08/12/2017 GEORGINA RODRIGUEZ LIQUOR GRINDER MILL OPERATOR Ot V76.12 OTH SCREEN MAMMO-MALIGN NEOPLASM OF JOHNNY 08/12/2017 GEORGINA RODRIGUEZ LIQUOR GRINDER MILL OPERATOR Ot 793.82 INCONCLUSIVE MAMMOGRAM 08/12/2017 GEORGINA RODRIGUEZ LIQUOR GRINDER MILL OPERATOR Ot 793.81 MAMMOGRAPHIC MICROCLACIFICATION 08/12/2017 EITAN MAZARIEGOS APRN Ot 793.89 OTH (ABN) FINDINGS ON RADIOLOGICAL EXAMI 08/12/2017 PERRY DEY MD Ot 272. 4 HYPERLIPIDEMIA NEC/NOS 08/12/2017 PERRY DEY MD Ot 397. 0 TRICUSPID VALVE DISEASE 08/12/2017 PERRY DEY MD Ot 401. 9 HYPERTENSION NOS 08/12/2017 PERRY DEY MD Ot 416. 8 CHR PULMON HEART DIS NEC 08/12/2017 PERRY DEY MD Ot 424. 0 MITRAL VALVE DISORDER 08/12/2017 PERRY DEY MD Ot 786. 50 CHEST PAIN NOS 08/12/2017 PERRY DEY MD Ot 250. 00 DIAB VIKASH WO COMPL, TYPE II OR UNSPEC TY 08/12/2017 PERRY DEY MD Ot 272. 4 HYPERLIPIDEMIA NEC/NOS 08/12/2017 PERRY DEY MD Ot 305. 1 TOBACCO USE DISORDER 08/12/2017 PERRY DEY MD Ot 401. 9 HYPERTENSION NOS 08/12/2017 PERRY DEY MD Ot 786. 50 CHEST PAIN NOS 08/12/2017 EMMY MCARTHUR Ot E11.9 TYPE 2 DIABETES MELLITUS WITHOUT COMPLIC 08/12/2017 EMMY MCARTHUR Ot E78.2 MIXED HYPERLIPIDEMIA 08/12/2017 EMMY MCARTHUR Ot I10 ESSENTIAL (PRIMARY) HYPERTENSION 08/12/2017 EMMY MCARTHUR Ot I48.2 CHRONIC ATRIAL FIBRILLATION 10/05/2017 EMMY MCARTHUR Ot E11.9 TYPE 2 DIABETES MELLITUS WITHOUT COMPLIC 10/05/2017 EMMY MCARTHUR K Ot E78.2 MIXED HYPERLIPIDEMIA 10/05/2017 FRANCIS MCARTHURTH K Ot I10 ESSENTIAL (PRIMARY) HYPERTENSION 10/05/2017 EMMY MCARTHUR Ot I48.2 CHRONIC ATRIAL FIBRILLATION 11/09/2017 EMMY MCARTHUR Ot E11.9 TYPE 2 DIABETES MELLITUS WITHOUT COMPLIC 11/09/2017 EMMY MCARTHUR K Ot E78.2 MIXED HYPERLIPIDEMIA 11/09/2017 EMMY MCARTHUR K Ot I10 ESSENTIAL (PRIMARY) HYPERTENSION 11/09/2017 FRANCIS MCARTHURTH K Ot I48.2 CHRONIC ATRIAL FIBRILLATION 05/13/2018 GEORGINA RODRIGUEZ LIQUOR GRINDER MILL OPERATOR Ot 793.81 MAMMOGRAPHIC MICROCLACIFICATION 05/13/2018 GEORGINA RODRIGUEZ LIQUOR GRINDER MILL OPERATOR Ot V76.12 OTH SCREEN MAMMO-MALIGN NEOPLASM OF JOHNNY 05/13/2018 GEORGINA RODRIGUEZ LIQUOR GRINDER MILL OPERATOR Ot 793.82 INCONCLUSIVE MAMMOGRAM 05/13/2018 GEORGINA RODRIGUEZ LIQUOR GRINDER MILL OPERATOR Ot 793.81 MAMMOGRAPHIC MICROCLACIFICATION 05/13/2018 DELILAH, EITAN A EPITAXIAL REACTOR OPERATOR Ot 793.89 OTH (ABN) FINDINGS ON RADIOLOGICAL EXAMI 05/13/2018 PERRY DEY MD Ot 272. 4 HYPERLIPIDEMIA NEC/NOS 05/13/2018 PERRY DEY MD Ot 397. 0 TRICUSPID VALVE DISEASE 05/13/2018 PERRY DEY MD Ot 401. 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 0 MITRAL VALVE DISORDER 05/13/2018 PERRY DEY MD Ot 786. 50 CHEST PAIN NOS 05/13/2018 PERRY DEY MD Ot 250. 00 DIAB VIKASH WO COMPL, TYPE II OR UNSPEC TY 05/13/2018 PERRY DEY MD Ot 272. 4 HYPERLIPIDEMIA NEC/NOS 05/13/2018 PERRY DEY MD Ot 305. 1 TOBACCO USE DISORDER 05/13/2018 PERRY DEY MD Ot 401. 9 HYPERTENSION NOS 05/13/2018 PERRY DEY MD Ot 786. 50 CHEST PAIN NOS 05/13/2018 EMMY MCARTHUR Ot E11.9 TYPE 2 DIABETES MELLITUS WITHOUT COMPLIC 05/13/2018 EMMY MCARTHUR Ot E78.2 MIXED HYPERLIPIDEMIA 05/13/2018 EMMY MCARTHUR Ot I10 ESSENTIAL (PRIMARY) HYPERTENSION 05/13/2018 EMMY MCARTHUR Ot I48.2 CHRONIC ATRIAL FIBRILLATION 01/14/2020 PAULINE GUPTA MD Ot E11. 9 TYPE 2 DIABETES MELLITUS WITHOUT COMPLIC 01/14/2020 PAULINE GUPTA MD Ot F17.210 NICOTINE DEPENDENCE, CIGARETTES, UNCOMPL 01/14/2020 PAULINE GUPTA MD, Ot J44. 9 CHRONIC OBSTRUCTIVE PULMONARY DISEASE, U 01/14/2020 PAULINE GUPTA MD Ot K21. 9 GASTRO-ESOPHAGEAL REFLUX DISEASE WITHOUT 01/14/2020 PAULINE GUPTA MD Ot M79.604 PAIN IN RIGHT LEG 01/14/2020 PAULINE GUPTA MD Ot N39. 0 URINARY TRACT INFECTION, SITE NOT SPECIF 01/14/2020 PAULINE GUPTA MD Ot X50.1XXA OVEREXERTION FROM PROLONGED STATIC OR AW 01/14/2020 PAULINE GUPTA MD, Ot Z79. 01 SENIOR LIVING (CURRENT) USE OF ANTICOAGULANT 01/14/2020 PAULINE GUPTA MD, Ot Z79. 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 01/23/2020 [place] 305.1 TOBACCO USE DISORDER 01/23/2020 [place] 427.31 ATRIAL FIBRILLATION 01/23/2020 [place] 799.02 HYPOXEMIA 01/23/2020 [place] E11.9 TYPE 2 DIABETES MELLITUS WITHOUT COMPLICATIONS 01/23/2020 [place] I10 ESSENTIAL (PRIMARY) HYPERTENSION 01/23/2020 [place] I48.21 PERMANENT ATRIAL FIBRILLATION 01/23/2020 [place] J44.1 CHRONIC OBSTRUCTIVE PULMONARY DISEASE W (ACUTE) EXACERBATION 01/23/2020 [place] M16.11 UNILATERAL PRIMARY OSTEOARTHRITIS, RIGHT HIP 01/23/2020 [place] M17.0 BILATERAL PRIMARY OSTEOARTHRITIS OF KNEE 01/23/2020 [place] R09.02 HYPOXEMIA 01/23/2020 [place] Z72.0 TOBACCO USE 01/23/2020 [place] Z79.01 SENIOR LIVING (CURRENT) USE OF ANTICOAGULANTS Procedures Code Description [place] [address] INR (IN HOUSE) 05/17/2012 67000 ROUT INE VENIPUNCTURE 08/17/2012 06342 A1C (IN-HOUSE) 08/17/2012 29868 MICR O ALBUMIN-IN HOUSE 08/17/2012 78117 INR (IN HOUSE) 08/17/2012 40968 CMP 08/17/2012 94908 LIPI D PANEL 08/17/2012 [id number] GF R CALC (RESULT ONLY) 08/17/2012 60809 MICR OALBUMIN 08/18/2012 54882 TSH 08/18/2012 17598 INR (IN HOUSE) 09/22/2012 02882 INR (IN HOUSE) 12/10/2012 95021 A1C (IN-HOUSE) 12/10/2012 97931 INR (IN HOUSE) 03/17/2013 94983 ROUT INE VENIPUNCTURE 05/26/2013 89758 ROUT INE VENIPUNCTURE 05/26/2013 94451 A1C (IN-HOUSE) 05/26/2013 70134 A1C (IN-HOUSE) 05/26/2013 38824 MICR O ALBUMIN-IN HOUSE 05/26/2013 89304 MICR O ALBUMIN-IN HOUSE 05/26/2013 91854 INR (IN HOUSE) 05/26/2013 80353 INR (IN HOUSE) 05/26/2013 G0008 FLU ADMINISTRATION (MEDICARE ONLY) 05/26/2013 G0008 FLU ADMINISTRATION (MEDICARE ONLY) 05/26/2013 22255 CBC 05/26/2013 19316 CBC 05/26/2013 06360 LIPI D PANEL 05/26/2013 19749 LIPI D PANEL 05/26/2013 98129 CMP 05/26/2013 91908 CMP 05/26/2013 [id number] GF R CALC (RESULT ONLY) 05/26/2013 [id number] GF R CALC (RESULT ONLY) 05/26/2013 34957 TSH 05/26/2013 99210 TSH 05/26/2013 53223 MAMM OGRAM DX, LEFT 06/02/2013 18693 MAMM OGRAM, SCREENING 06/06/2013 69403 MAMM OGRAM, SCREENING 06/06/2013 05135 INR (IN HOUSE) 08/24/2013 31319 MAMM OGRAM DX, LEFT 10/04/2013 88602 A1C (IN-HOUSE) 10/04/2013 82479 INR (IN HOUSE) 10/04/2013 98958 ROUT INE VENIPUNCTURE 02/06/2014 75734 A1C (IN-HOUSE) 02/06/2014 27769 MICR O ALBUMIN-IN HOUSE 02/06/2014 63635 INR (IN HOUSE) 02/06/2014 73198 LIPI D PANEL 02/06/2014 37532 MICR OALBUMIN 02/06/2014 93089 TSH 02/06/2014 73950 INR (IN HOUSE) 05/02/2014 11511 ROUT INE VENIPUNCTURE 06/20/2014 35706 XRAY CHEST 2 VIEW 06/20/2014 11342 MAMM OGRAM DX, SHERYL 06/20/2014 31043 EKG, TRACING (IN-HOUSE) 06/20/2014 CARDIOLOG PERRY DEY 06/20/2014 45079 A1C (IN-HOUSE) 06/20/2014 23833 MAGNESIUM 06/20/2014 48515 CBC 06/20/2014 [id number] GF R CALC (RESULT ONLY) 06/20/2014 23168 CMP 06/20/2014 10013 LIPI D PANEL 06/20/2014 98665 TSH 06/20/2014 15930 PT/INR 06/20/2014 57810 BNP 06/21/2014 62428 INR (IN HOUSE) 08/24/2014 70117 A1C (IN-HOUSE) 10/24/2014 52915 MICR O ALBUMIN-IN HOUSE 10/24/2014 Results Test Result Range Comp. Metabolic Panel (14) - 07/09/16 09 :55 Glucose, Serum 119 mg/dL 65-99 BUN 17 mg/dL 8-27 Creatinine, Serum 0.78 mg/dL 0.57-1.00 eGFR If NonAfricn Am 81 mL/min/1.73 >59 eGFR If Africn Am 94 mL/min/1.73 >59 BUN/Creatinine Ratio 22 11-26 Sodium, Serum 141 mmol/L 136-144 Potassium, Serum 4.0 mmol/L 3.5-5.2 Chloride, Serum 97 mmol/L 97-106 Carbon Dioxide, Total 25 mmol/L 18-29 Calcium, Serum 9.1 mg/dL 8.7-10.3 Protein, Total, Serum 7.3 g/dL 6.0-8.5 Albumin, Serum 4.2 g/dL 3.6-4.8 Globulin, Total 3.1 g/dL 1.5-4.5 A/G Ratio 1.4 1.1-2.5 Bilirubin, Total 0.8 mg/dL 0.0-1.2 Alkaline Phosphatase, S 96 IU/L 39-117 AST (SGOT) 18 IU/L 0-40 ALT (SGPT) 12 IU/L 0-32 Lipid Panel - 07/09/16 09:55 Cholesterol, Total 132 mg/dL 100-199 Triglycerides 132 mg/dL 0-149 HDL Cholesterol 41 mg/dL >39 VLDL Cholesterol [place] 26 mg/dL 5-40 LDL Cholesterol Calc 65 mg/dL 0-99 TSH - 07/09/16 09:55 TSH 0.225 uIU/mL 0.450-4.500 Comprehensive Metabolic Panel - 08/01/16 12:45 Albumin 4.0 g/dL 3.6-5.1 ALP 89 U/L 35-130 ALT 19 U/L 6-45 Anion Gap 17 6-14 AST 25 U/L 2-40 BUN 15 mg/dL 5-25 Calcium 9.4 mg/dL 8.3-10.4 Chloride 102 mmol/L 95-114 CO2 26 mEq/L 22-33 Creat 0.88 mg/dL 0.50-1.50 eGFR 65 mL/min/1.73m2 >59 Globulin 3.4 g/dL 2.3-3.5 Glucose 123 mg/dL 70-110 Osm[place] 293 280-295 Potassium 3.9 mmol/L 3.5-5.3 Sodium 141 mmol/L 134-148 TBil 1.3 mg/dL 0.2-1.2 TP 7.4 g/dL 6.0-8.3 MRSA Screen - 08/01/16 12:45 FINAL CULTURE RESULTS MRSA Negative Nasal Culture MEDIA PLATED Setup at 13:00 on 08/01/2016 XM (2) [facility]PC - 08/07/16 06:45 CROSSMATCH COMPATIBLE X 2 Hct 48.4 % 36.0-46.0 Hgb 16.0 g/dL 13.0-15.0 Urinalysis - 08/07/16 07:50 Icotest N/A Negative Urine Volume Urine Volume Sufficient (10mL) Urine-Appearance Clear Clear Urine-Bacteria Trace Urine-Bilirubin Negative Negative Urine-Blood Negative Negative Urine-Color Yellow Colorless-[place] ow Urine-Epithelial Cells 0-5/HPF Urine-Glucose Negative Negative Urine-Ketones Negative Negative Urine-Leukocytes Negative Negative Urine-Nitrite Negative Negative Urine-Other Urine Saved if Culture Need ed (48hrs from time of collection) Urine-pH 6.5 5-8.5 Urine-Protein Negative Negative Urine-RBC Few/HPF Urine-Specific [place] 1.015 1.000-1 .030 Urine-WBC Rare/HPF Urobilinogen 1.0 E.U./dL 0.2-1.0 Urine Culture - 08/07/16 07:50 PRELIM CULTURE RESULTS No Growth 24 hours FINAL CULTURE RESULTS No Growth 48 hours MEDIA PLATED Setup at 12:43 on 08/07/2016 CULTURE SOURCE post catheter insertion Comprehensive Metabolic Panel - 08/08/16 05:17 Albumin 3.6 g/dL 3.6-5.1 ALP 65 U/L 35-130 ALT 14 U/L 6-45 Anion Gap 12 6-14 AST 22 U/L 2-40 BUN 15 mg/dL 5-25 Calcium 9.0 mg/dL 8.3-10.4 Chloride 104 mmol/L 95-114 CO2 24 mEq/L 22-33 Creat 0.73 mg/dL 0.50-1.50 eGFR 80 mL/min/1.73m2 >59 Globulin 2.8 g/dL 2.3-3.5 Glucose 179 mg/dL 70-110 Osmo 286 280-295 Potassium 4.2 mmol/L 3.5-5.3 Sodium 136 mmol/L 134-148 TBil 1.1 mg/dL 0.2-1.2 TP 6.4 g/dL 6.0-8.3 - 08/09/16 07:29 Hct 41.4 % 36.0-46.0 Hgb 13.6 g/dL 13.0-15.0 - 08/10/16 07:00 Comprehensive Metabolic Panel - 08/10/16 07:00 Albumin 3.2 g/dL 3.6-5.1 ALP 57 U/L 35-130 ALT 14 U/L 6-45 Anion Gap 14 6-14 AST 16 U/L 2-40 BUN 16 mg/dL 5-25 Calcium 8.8 mg/dL 8.3-10.4 Chloride 101 mmol/L 95-114 CO2 29 mEq/L 22-33 Creat 0.72 mg/dL 0.50-1.50 eGFR 82 mL/min/1.73m2 >59 Globulin 2.7 g/dL 2.3-3.5 Glucose 128 mg/dL 70-110 Osmo 292 280-295 Potassium 4.0 mmol/L 3.5-5.3 Sodium 140 mmol/L 134-148 TBil 1.8 mg/dL 0.2-1.2 TP 5.9 g/dL 6.0-8.3 EKG - 11/04/16 12:54 EKG Complete Comprehensive Metabolic Panel - 11/04/16 12:54 Albumin 3.9 g/dL 3.6-5.1 ALP 102 U/L 35-130 ALT 13 U/L 6-45 Anion Gap 19 6-14 AST 16 U/L 2-40 BUN 24 mg/dL 5-25 Calcium 9.3 mg/dL 8.3-10.4 Chloride 103 mmol/L 95-114 CO2 23 mEq/L 22-33 Creat 1.12 mg/dL 0.50-1.50 eGFR 49 mL/min/1.73m2 >59 Globulin 3.9 g/dL 2.3-3.5 Glucose 101 mg/dL 70-110 Osmo 295 280-295 Potassium 3.8 mmol/L 3.5-5.3 Sodium 141 mmol/L 134-148 TBil 0.9 mg/dL 0.2-1.2 TP 7.8 g/dL 6.0-8.3 XM (2) [facility] - 11/13/16 07:00 CROSSMATCH COMPATIBLE X 2 Hct 43.6 % 36.0-46.0 Hgb 14.3 g/dL 13.0-15.0 MRSA Screen - 11/13/16 07:32 FINAL CULTURE RESULTS MRSA Negative Nasal Culture MEDIA PLATED Setup at 08:10 on 11/13/2016 Urine Culture - 11/13/16 07:58 PRELIM CULTURE RESULTS No Growth 24 hours FINAL CULTURE RESULTS No Growth 48 hours MEDIA PLATED Setup at 13:17 on 11/13/2016 CULTURE SOURCE new cath insertion Comprehensive Metabolic Panel - 11/14/16 05:25 Albumin 3.2 g/dL 3.6-5.1 ALP 77 U/L 35-130 ALT 11 U/L 6-45 Anion Gap 15 6-14 AST 16 U/L 2-40 BUN 16 mg/dL 5-25 Calcium 9.0 mg/dL 8.3-10.4 Chloride 103 mmol/L 95-114 CO2 25 mEq/L 22-33 Creat 0.81 mg/dL 0.50-1.50 eGFR 71 mL/min/1.73m2 >59 Globulin 2.9 g/dL 2.3-3.5 Glucose 130 mg/dL 70-110 Osmo 288 280-295 Potassium 4.5 mmol/L 3.5-5.3 Sodium 138 mmol/L 134-148 TBil 1.3 mg/dL 0.2-1.2 TP 6.1 g/dL 6.0-8.3 - 11/15/16 07:00 Hct 36.3 % 36.0-46.0 Hgb 11.5 g/dL 13.0-15.0 - 11/16/16 07:00 Hct 36.3 % 36.0-46.0 Hgb 11.6 g/dL 13.0-15.0 [facility] - 02/14/19 09:25 GLUCOSE 282 mg/dL 65-99 UREA NITROGEN (BUN) 17 mg/dL 7-25 CREATININE 0.96 mg/dL 0.50-0.99 eGFR NON-AFR. DANISH 62 mL/min/1.73m2 > OR = 60 eGFR 71 mL/min/1.73m2 > OR = 60 BUN/CREATININE RATIO NOT APPLICABLE (calc) 6-22 SODIUM 136 mmol/L 135-146 POTASSIUM 4.6 mmol/L 3.5-5.3 CHLORIDE 96 mmol/L 98-110 CARBON DIOXIDE 32 mmol/L 20-32 CALCIUM 9.3 mg/dL 8.6-10.4 PROTEIN, TOTAL 7.3 g/dL 6.1-8.1 ALBUMIN 3.8 g/dL 3.6-5.1 GLOBULIN 3.5 g/dL (calc) 1.9-3.7 ALBUMIN/GLOBULIN RATIO 1.1 (calc) 1.0-2. 5 BILIRUBIN, TOTAL 1.0 mg/dL 0.2-1.2 ALKALINE PHOSPHATASE 101 U/L 33-130 AST 20 U/L 10-35 ALT 15 U/L 6-29 TSH - 02/14/19 09:25 TSH 3.23 mIU/L 0.40-4.50 PDM - 09 PANEL (PROFILE 1) - 02/14/19 09 :25 Prescribed Drug 1 Tramadol NRG Creatinine 121.0 mg/dL > or = 20.0 pH 7.64 4.5 - 9.0 Oxidant NEGATIVE mcg/mL <200 Amphetamines NEGATIVE ng/mL <500 medMATCH Amphetamines CONSISTENT NRG Benzodiazepines NEGATIVE ng/mL <100 medMATCH Benzodiazepines CONSISTENT NRG Marijuana Metabolite NEGATIVE ng/mL <20 medMATCH Marijuana Metab CONSISTENT NRG Cocaine Metabolite NEGATIVE ng/mL <150 medMATCH Cocaine Metab CONSISTENT NRG Opiates NEGATIVE ng/mL <100 medMATCH Opiates CONSISTENT NRG Oxycodone NEGATIVE ng/mL <100 medMATCH Oxycodone CONSISTENT NRG COMMENT NRG Barbiturates NEGATIVE ng/mL <300 medMATCH Barbiturates CONSISTENT NRG Methadone Metabolite NEGATIVE ng/mL <100 medMATCH Methadone Metab CONSISTENT NRG Phencyclidine NEGATIVE ng/mL <25 medMATCH Phencyclidine CONSISTENT NRG PDM - TRAMADOL - 09/05/19 09:10 COMMENT NRG Desmethyltramadol NEGATIVE ng/mL <100 medMATCH Desmethyltram INCONSISTENT NRG Tramadol NEGATIVE ng/mL <100 medMATCH Tramadol INCONSISTENT NRG Prescribed Drug 2 Tramadol NRG Prescribed Drug 4 Tramadol NRG LIPID PANEL - 12/21/19 09:27 CHOLESTEROL, TOTAL 126 mg/dL <200 HDL CHOLESTEROL 36 mg/dL > OR = 50 TRIGLYCERIDES 135 mg/dL <150 LDL-CHOLESTEROL 68 mg/dL (calc) NRG CHOL/HDLC RATIO 3.5 (calc) <5.0 NON HDL CHOLESTEROL 90 mg/dL (calc) <130 CMP - 12/21/19 09:27 GLUCOSE 144 mg/dL 65-99 UREA NITROGEN (BUN) 16 mg/dL 7-25 CREATININE 0.90 mg/dL 0.50-0.99 eGFR NON-AFR. DANISH 66 mL/min/1.73m2 > OR = 60 eGFR 77 mL/min/1.73m2 > OR = 60 BUN/CREATININE RATIO NOT APPLICABLE (calc) 6-22 SODIUM 142 mmol/L 135-146 POTASSIUM 4.2 mmol/L 3.5-5.3 CHLORIDE 99 mmol/L 98-110 CARBON DIOXIDE 29 mmol/L 20-32 CALCIUM 9.6 mg/dL 8.6-10.4 PROTEIN, TOTAL 7.5 g/dL 6.1-8.1 ALBUMIN 3.8 g/dL 3.6-5.1 GLOBULIN 3.7 g/dL (calc) 1.9-3.7 ALBUMIN/GLOBULIN RATIO 1.0 (calc) 1.0-2. 5 BILIRUBIN, TOTAL 0.8 mg/dL 0.2-1.2 ALKALINE PHOSPHATASE 102 U/L 37-153 AST 23 U/L 10-35 ALT 18 U/L 6-29 CBC - 12/21/19 09:27 WHITE BLOOD CELL COUNT 9.4 Thousand/uL 3 .8-10.8 RED BLOOD CELL COUNT 5.20 Million/uL 3.8 0-5.10 HEMOGLOBIN 15.5 g/dL 11.7-15.5 HEMATOCRIT 48.5 % 35.0-45.0 MCV 93.3 fL 80.0-100.0 MCH 29.8 pg 27.0-33.0 MCHC 32.0 g/dL 32.0-36.0 RDW 15.1 % 11.0-15.0 PLATELET COUNT 286 Thousand/uL 140-400 MPV 10.2 fL 7.5-12.5 ABSOLUTE NEUTROPHILS 6890 cells/uL 1500- 7800 ABSOLUTE LYMPHOCYTES 1448 cells/uL 850-3 900 ABSOLUTE MONOCYTES 724 cells/uL 200-950 ABSOLUTE EOSINOPHILS 320 cells/uL 15-500 ABSOLUTE BASOPHILS 19 cells/uL 0-200 NEUTROPHILS 73.3 % NRG LYMPHOCYTES 15.4 % NRG MONOCYTES 7.7 % NRG EOSINOPHILS 3.4 % NRG BASOPHILS 0.2 % NRG TSH - 12/21/19 09:27 TSH 0.13 mIU/L 0.40-4.50 A1C - 12/21/19 09:27 HEMOGLOBIN A1c 7.6 % of total Hgb <5.7 Comprehensive metabolic panel - 01/14/20 01:05 Serum or plasma sodium measurement (moles/volume) 136 mmol/L 135-145 Serum or plasma potassium measurement (moles/volume) 4.5 mmol/L 3.6-5.0 Serum or plasma chloride measurement (moles/volume) 100 mmol/L 98-107 Carbon dioxide 25 mmol/L 21-32 Serum or plasma anion gap determination (moles/volume) 11 mmol/L 5-14 Serum or plasma urea nitrogen measurement (mass/volume ) 19 mg/dL 7-18 Serum or plasma creatinine measurement (mass/volume) 0.99 mg/dL 0.60-1.30 Serum or plasma urea nitrogen/creatinine mass ratio 19 NRG Serum or plasma creatinine measurement w ith calculation of estimated glomerular filtration rate 56 NRG Serum or plasma glucose measurement (mass/volume) 190 mg/dL 70-105 Serum or plasma calcium measurement (mass/volume) 9.5 mg/dL 8.5-10.1 Serum or plasma total bilirubin measurement (mass/volu me) 0.7 mg/dL 0.1-1.0 Serum or plasma alkaline phosphatase carlin surement (enzymatic activity/volume) 92 U/L 40-136 Serum or plasma aspartate aminotransfera se measurement (enzymatic activity/volume) 20 U/L 5-34 Serum or plasma alanine aminotransferase measurement (enzymatic activity/volume) 14 U/L 0-55 Serum or plasma protein measurement (mass/volume) 7.8 g/dL 6.4-8.2 Serum or plasma albumin measurement (mass/volume) 3.5 g/dL 3.2-4.5 CALCIUM CORRECTED 9.9 mg/dL 8.5-10.1 Complete blood count (CBC) with automate d white blood cell (WBC) differential - 01/14/20 01:05 Blood leukocytes automated count (number/volume) 11.6 10*3/uL 4.3-11.0 Blood erythrocytes automated count (number/volume) 4.97 10*6/uL 4.35-5.85 Venous blood hemoglobin measurement (mass/volume) 14.6 g/dL 11.5-16.0 Blood hematocrit (volume fraction) 45 % 35-52 Automated erythrocyte mean corpuscular volume 91 [ foz_us] 80-99 Automated erythrocyte mean corpuscular h emoglobin (mass per erythrocyte) 29 pg 25-34 Automated erythrocyte mean corpuscular h emoglobin concentration measurement (mass/volume) 32 g/dL 32-36 Automated erythrocyte distribution width ratio 15. 8 % 10.0- 14.5 Automated blood platelet count (count/volume) 257 10*3/uL 130-400 Automated blood platelet mean volume measurement 10.1 [foz_us] 7.4-10.4 Automated blood neutrophils/100 leukocytes 75 % 42-75 Automated blood lymphocytes/100 leukocytes 9 % 12-44 Blood monocytes/100 leukocytes 14 % 0-12 Automated blood eosinophils/100 leukocytes 2 % 0-10 Automated blood basophils/100 leukocytes 0 % 0-10 Blood neutrophils automated count (number/volume) 8.7 10*3 1.8-7.8 Blood lymphocytes automated count (number/volume) 1.0 10*3 1.0-4.0 Blood monocytes automated count (number/volume) 1. 7 10*3 0.0-1.0 Automated eosinophil count 0.2 10*3/uL 0 .0-0.3 Automated blood basophil count (count/volume) 0.0 10*3/uL 0.0-0.1 PT panel in platelet poor plasma by coag ulation assay - 01/14/20 01:05 Prothrombin time (PT) in platelet poor plasma by coagu lation assay 33.3 s 12.2-14.7 INR in platelet poor plasma or blood by coagulation as say 3.1 0.8-1.4 Activated partial thromboplastin time (a PTT) in platelet poor plasma bycoagulation assay - 01/14/20 01:05 Activated partial thromboplastin time (a PTT) in platelet poor plasma bycoagulation assay 47 s 24-35 Serum or plasma C reactive protein measu rement (mass/volume) - 01/14/20 01:05 Serum or plasma C reactive protein measurement (mass/v olume) 10.77 mg/dL 0.00-0.50 Complete urinalysis with reflex to cultu re - 01/14/20 01:25 Urine color determination OTHER NRG Urine clarity determination CLOUDY NR G Urine pH measurement by test strip 5.5 5-9 Specific gravity of urine by test strip 1.010 1.016-1.022 Urine protein assay by test strip, semi-quantitative NEGATIVE NEGATIVE Urine glucose detection by automated test strip NE GATIVE NEGATIVE Erythrocytes detection in urine sediment by light micr oscopy TRACE-I NEGATIVE Urine ketones detection by automated test strip NE GATIVE NEGATIVE Urine nitrite detection by test strip POSITIVE NEGATIVE Urine total bilirubin detection by test strip NEGA TIVE NEGATIVE Urine urobilinogen measurement by automated test strip (mass/volume) 1.0 mg/dL < = 1.0 Urine leukocyte esterase detection by dipstick NEG ATIVE NEGATIVE Automated urine sediment erythrocyte cou nt by microscopy (number/high power field) [HPF] NRG Automated urine sediment leukocyte count by microscopy (number/high power field) NONE NRG Bacteria detection in urine sediment by light microsco py LARGE NRG Squamous epithelial cells detection in u rine sediment by light microscopy 0-2 NRG Crystals detection in urine sediment by light microsco py NONE NRG Casts detection in urine sediment by light microscopy NONE NRG Mucus detection in urine sediment by light microscopy NEGATIVE NRG Complete urinalysis with reflex to culture YES NRG Bacterial urine culture - 01/14/20 01:25 Bacterial urine culture [id number] NRG COLONY COUNT >100,000/ML NRG SUSCEPTIBILITY SUSCEPTIBILITY REPORTED 01-16-20 5. NRG Dirithromycin susceptibility test by dis k diffusion - 01/14/20 01:25 Gentamicin susceptibility test by minimum inhibitory c oncentration <= NRG Trimethoprim/sulfamethoxazole susceptibi lity test by minimum inhibitoryconcentration <= NRG Levofloxacin susceptibility test by minimum inhibitory concentration <= NRG Ampicillin susceptibility test by minimum inhibitory c oncentration > NRG Cefazolin susceptibility test by minimum inhibitory co ncentration <= NRG Ceftriaxone susceptibility test by minimum inhibitory concentration <= NRG Ciprofloxacin susceptibility test by minimum inhibitor y concentration <= NRG Meropenem susceptibility test by minimum inhibitory co ncentration <= NRG Nitrofurantoin susceptibility test by il nimum inhibitory concentration <= NRG Amoxicillin and clavulanate potassium susc LETY <= NRG Comprehensive Metabolic Panel - 01/23/20 09:40 Albumin 3.3 g/dL 3.6-5.1 ALP 94 U/L 35-130 ALT 19 U/L 6-45 Anion Gap 17 6-14 AST 20 U/L 2-40 BUN 13 mg/dL 5-25 Calcium 9.4 mg/dL 8.3-10.4 Chloride 92 mmol/L 95-114 CO2 29 mEq/L 22-33 Creat 0.88 mg/dL 0.50-1.50 eGFR 64 mL/min/1.73m2 >59 Globulin 4.7 g/dL 2.3-3.5 Glucose 188 mg/dL 70-110 Osmo 282 280-295 Potassium 4.4 mmol/L 3.5-5.3 Sodium 134 mmol/L 134-148 TBil 0.5 mg/dL 0.2-1.2 TP 8.0 g/dL 6.0-8.3 Urinalysis - 01/23/20 09:41 Icotest N/A Negative Urine Casts None Seen Urine Crystals None Seen Urine Volume Urine Volume Sufficient (10mL) Urine Yeast No Yeast present Urine-Appearance Clear Clear Urine-Bacteria Negative Urine-Bilirubin Negative Negative Urine-Blood 1+ Negative Urine-Color Yellow Colorless-[place] ow Urine-Epithelial Cells 0-5/HPF Urine-Glucose Negative Negative Urine-Ketones Negative Negative Urine-Leukocytes Negative Negative Urine-Mucus Negative Urine-Nitrite Negative Negative Urine-Other Urine Saved if Culture Need ed (48hrs from time of collection) Urine-pH 6.0 5-8.5 Urine-Protein Negative Negative Urine-RBC Negative Urine-Specific [place] 1.015 1.000-1 .030 Urine-WBC Negative Urobilinogen 0.2 E.U./dL 0.2-1.0 Arterial Blood Gas - 01/23/20 10:00 Base 9.00 mmol/L 1.80-4.20 HCO3 34 mmol/L 20-31 O2 Sat 77 RM AIR % 95-100 pCO2 55 mm/Hg 35-45 pH 7.39 7.35-7.45 PO2 43 mm/Hg 80-95 Arterial Blood Gas - 01/23/20 11:00 Base 10.00 mmol/L 1.80-4.20 HCO3 35 mmol/L 20-31 O2 Sat 81 RM AIR % 95-100 pCO2 57 mm/Hg 35-45 pH 7.40 7.35-7.45 PO2 46 mm/Hg 80-95 Encounters ACCT No. Visit Date/Time Discharge Status Pt. Type Provider Facility Loc./Unit Complaint [id number] 01/25/2020 00:00:00 01/25/2020 23:59 :00 DIS Outpatient MIGUEANGEL MIGUEL [id number] 01/23/2020 08:51:00 01/23/2020 12:20 :00 [id number] 01/17/2020 08:53:00 01/17/2020 23:59 :00 DIS Outpatient ANGEL CAMARENA [id number] 12/26/2016 08:04:00 12/26/2016 23:59: 00 DIS Outpatient ANGEL CAMARENA [id number] 11/13/2016 06:30:00 11/18/2016 10:45: 00 DIS Inpatient MIGUEANGEL MIGUEL [facility] er MED-SURG [id number] 11/04/2016 12:29:00 11/04/2016 23:59: 00 DIS Outpatient ANGEL CAMARENA [id number] 09/17/2016 08:59:00 09/17/2016 23:59: 00 DIS Outpatient ANGEL CAMARENA [id number] 08/07/2016 06:04:00 08/12/2016 13:40: 00 DIS Inpatient ANGEL CAMARENA [facility] er MED-SURG [id number] 08/01/2016 11:49:00 08/01/2016 23:59: 00 DIS Outpatient ANGEL CAMARENA [id number] 05/28/2016 11:14:00 07/24/2016 15:30: 00 DIS Outpatient ANGEL CAMARENA [id number] 08/07/2016 07:01:59 Document Registration [id number] 11/04/2016 12:29:00 Document Registration [email or web address] 07/19/2014 07:44:34 ACT Document Registration [id number] 01/14/2020 01:04:00 020 03:36:00 DIS Emergency ALONSO WATTERS, PAULINE Ferrari [facility] ER RT KNEE PAIN [id number] 06/08/2018 10:22:00 018 23:59:59 CLS Preadmit GEORGINA RODRIGUEZ [facility] REHAB LBP [id number] 02/13/2017 11:30:00 017 23:59:59 CLS Preadmit STEVIE RODRIGUEZA [employer] OPERATOR [facility] RAD SCREENING [id number] 11/28/2016 14:56:00 017 23:59:59 CLS Outpatient SHAMA RIVERO, LEEANNA Menon [facility] CARD I48.2,E11.9 ,I10,E78.2 [id number] 07/19/2014 07:44:00 014 23:59:59 CLS Outpatient PERRY DEY MD [facility] CARD CP,HTN,HLP [id number] 07/13/2014 07:38:00 014 23:59:59 CLS Outpatient PERRY DEY MD [facility] CARD CP,HTN,HLP [id number] 07/10/2014 10:26:00 014 23:59:59 CLS Outpatient EITAN MAZARIEGOS APRN [facility] RAD FOLLOW UP [id number] 02/08/2014 12:39:00 014 23:59:59 CLS Outpatient GEORGINA RODRIGUEZP [facility] RAD 6 MONTH FOLLOW UP [id number] 07/18/2013 08:04:00 23:59:59 CLS Outpatient STEVIE RODRIGUEZA [employer] OPERATOR [facility] RAD INCONCLUSIVE MAMMO [id number] 06/06/2013 10:27:00 23:59:59 CLS Outpatient STEVIE RODRIGUEZA [employer] OPERATOR [facility] RAD ROUTINE [id number] 03/08/2013 02:05:00 11:10:00 DIS Inpatient SONALI WATTERS, DAVID Hairston [facility] 4TH PNEUMONIA;COPD [id number] 05/21/2017 20:03:00 Document Registration [id number] 04/24/2009 14:36:00 Document Registration [id number] 04/06/2009 09:49:00 Document Registration [id number] 10/18/2008 08:14:00 Document Registration [id number] 07/10/2016 08:44:00 Document Registration [id number] 01/16/2020 10:40:00 01/16/2020 23:59:5 9 CLS Outpatient MICHAEL EPITAXIAL REACTOR OPERATOR, GEORGINA [facility] [id number] 12/21/2019 09:00:00 Document Registration [id number] 09/05/2019 08:40:00 Document Registration [id number] 02/14/2019 08:40:00 Document Registration [id number] 10/24/2014 09:19:00 10/24/2014 23:59: 59 CLS Outpatient MICHAEL EPITAXIAL REACTOR OPERATOR, GEORGINA S [id number] 08/24/2014 11:33:00 08/24/2014 23:59: 59 CLS Outpatient MICHAEL EPITAXIAL REACTOR OPERATOR, GEORGINA S [id number] 06/20/2014 09:16:00 06/20/2014 23:59: 59 CLS Outpatient MICHAEL EPITAXIAL REACTOR OPERATOR, GEORGINA S [id number] 06/20/2014 09:16:00 06/20/2014 23:59: 59 CLS Outpatient MICHAEL EPITAXIAL REACTOR OPERATOR, GEORGINA S [id number] 05/02/2014 09:22:00 05/02/2014 23:59: 59 CLS Outpatient MICHAEL EPITAXIAL REACTOR OPERATOR, GEORGINA S [id number] 02/06/2014 10:03:00 02/06/2014 23:59: 59 CLS Outpatient MICHAEL EPITAXIAL REACTOR OPERATOR, GEORGINA S [id number] 02/06/2014 10:03:00 02/06/2014 23:59: 59 CLS Outpatient MICHAEL EPITAXIAL REACTOR OPERATOR, GEORGINA S [id number] 10/04/2013 08:45:00 10/04/2013 23:59: 59 CLS Outpatient MICHAEL EPITAXIAL REACTOR OPERATOR, GEORGINA S [id number] 10/04/2013 08:45:00 10/04/2013 23:59: 59 CLS Outpatient MICHAEL EPITAXIAL REACTOR OPERATOR, GEORGINA S [id number] 08/24/2013 11:12:00 08/24/2013 23:59: 59 CLS Outpatient GEORGINA RODRIGUEZ APRN [id number] 05/26/2013 09:47:00 05/26/2013 23:59: 59 CLS Outpatient GEORGINA RODRIGUEZ APRN [id number] 05/26/2013 09:47:00 05/26/2013 23:59: 59 CLS Outpatient DAVID LYON MD [id number] 03/17/2013 13:33:00 03/17/2013 23:59: 59 CLS Outpatient GEORGINA RODRIGUEZ APRN [id number] 08/17/2012 09:40:00 08/17/2012 23:59: 59 CLS Outpatient GEORGINA RODRIGUEZ APRN [id number] 08/17/2012 09:40:00 08/17/2012 23:59: 59 CLS Outpatient GEORGINA RODRIGUEZ APRN [id number] 06/17/2012 13:41:00 06/17/2012 23:59:5 9 CLS Outpatient FREDO HEIN DO [id number] 06/17/2012 13:41:00 06/17/2012 23:59: 59 CLS Outpatient FREDO HEIN DO [id number] 03/17/2013 13:33:00 Document Registration [id number] 02/08/2013 15:18:00 Document Registration [id number] 12/14/2012 13:22:00 Document Registration
[2020-01-28 14:50] LABS: INR 1.7 (0.8-1.4)
[2020-01-28 15:03] LABS: ALANINE AMINOTRANSFERASE 25 U/L (0-55); ALBUMIN 2.8 GM/DL (3.2-4.5); ALKALINE PHOSPHATASE 102 U/L (40-136); BILIRUBIN,TOTAL 0.6 MG/DL (0.1-1.0); BUN/CREATININE RATIO 14; CARBON DIOXIDE 26 MMOL/L (21-32); CHLORIDE 90 MMOL/L (98-107); CREATININE SERUM 0.86 MG/DL (0.60-1.30); GFR ESTIMATED > 60; GLUCOSE 243 MG/DL (70-105); POTASSIUM 5.2 MMOL/L (3.6-5.0); SODIUM 129 MMOL/L (135-145); TOTAL PROTEIN 7.6 GM/DL (6.4-8.2)
[2020-01-28 15:04] LABS: BILIRUBIN,URINE NEGATIVE (NEGATIVE); CLARITY,URINE CLEAR; COLOR,URINE YELLOW; GLUCOSE, URINE (UA) TRACE (NEGATIVE); KETONES,URINE NEGATIVE (NEGATIVE); LEUKOCYTE ESTERASE ,URINE NEGATIVE (NEGATIVE); NITRITE,URINE NEGATIVE (NEGATIVE); PH,URINE 5.5 (5-9); PROTEIN,URINE NEGATIVE (NEGATIVE)
[2020-01-28 15:21] LABS: BAND NEUTROPHILS 0 %; BASOPHILS % (MANUAL) 0 %; EOSINOPHILS % (MANUAL) 0 %; LYMPHOCYTES % (MANUAL) 4 %; MONOCYTES % (MANUAL) 9 %; NEUTROPHILS % (MANUAL) 87 %; RBC MORPH NORMAL
[2020-01-28 15:23] LABS: BACTERIA,URINE NEGATIVE /HPF; SQUAMOUS EPITHELIAL CELL,UR 0-2 /HPF
--- NOTE | 2020-01-28 15:51 | Diagnostic Imaging Report ---
HISTORY: Shortness of air. TECHNIQUE: Frontal view of the chest. COMPARISON: 03/08/2013. FINDINGS: Lung volumes are normal. No focal consolidation is seen. There is no pleural effusion or pneumothorax. Nodular density at the right lung apex appears persistent since 2012 and is thought to represent degenerative change at the 1st rib costochondral junction. There is aortic atherosclerosis. The cardiac silhouette is normal in size. IMPRESSION: No acute pulmonary abnormality is seen. Dictated by: Dictated on workstation # [id number]
--- NOTE | 2020-01-28 15:51 | Diagnostic Imaging Report ---
PROCEDURE: CT lumbar spine without contrast. TECHNIQUE: Multiple contiguous axial images were obtained through the lumbar spine without the use of intravenous contrast. Sagittal and coronal reformations were then performed. Auto Exposure Controls were utilized during the CT exam to meet ALARA standards for radiation dose reduction. INDICATION: Right lower extremity pain. COMPARISON: None. FINDINGS: There are five lumbar-type vertebral bodies. Normal alignment. Vertebral body heights preserved. No fracture. Mild to moderate degenerative endplate changes and facet arthropathy. No high-grade spinal canal stenosis is evident on soft tissue windows. There are moderate degenerative changes in the visualized sacroiliac joints. The visualized paravertebral soft tissues are unremarkable. IMPRESSION: 1. No acute CT finding in the lumbar spine. Mild to moderate spondylotic changes. 2. Moderate degenerative changes in the sacroiliac joints. Dictated by: Dictated on workstation # [id number]
[2020-01-28] MEDS ORDERED: methylPREDNISolone 40 MG/ML (DEPO MEDROL) VIAL IM ONE (16:15)
[2020-01-28] MEDS ORDERED: BUP/EPI 0.5% 1:200,000 (SENSORCAINE) 30 ML VIAL INJ ONE (16:15)
[2020-01-28] MEDS ORDERED: BUPIVACAINE 0.5% 30 ML (SENSORCAINE) VIAL ONE (16:16)
[2020-01-28] MEDS ORDERED: LIDOCAINE/EPI 2% 1:100,00 (XYLOCAINE) 20 ML VIAL ONE (16:19)
[2020-01-28] MEDS ORDERED: oxyCODONE/APAP 5/325MG (PERCOCET 5) TABLET PO ONE (16:30)
[2020-01-28] MEDS ORDERED: LIDOCAINE/EPI 2% 1:100,00 (XYLOCAINE) 20 ML VIAL INJ ONE (16:30)
[2020-01-28 17:08] VITALS: BP 136/106
== END 2020-01-28 17:08 | disposition home or self-care (01) ==
LOC: EDUNIT# 14:14 → ER 14:15
DX: M54.42 Lumbago with sciatica, left side (principal); I48.91 Unspecified atrial fibrillation; J44.9 Chronic obstructive pulmonary disease, unspecified; I10 Essential (primary) hypertension; E11.9 Type 2 diabetes mellitus without complications; E03.9 Hypothyroidism, unspecified; K21.9 Gastro-esophageal reflux disease without esophagitis; F17.210 Nicotine dependence, cigarettes, uncomplicated; Z79.84 Long term (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 oral hypoglycemic drugs; Z79.01 Long term (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; Z79.52 Long term (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 systemic steroids; Z79.890 Hormone replacement therapy
CPT/HCPCS: 36415; 51701; 71045; 72131; 80053; 81000; 82805; 85007; 85027; 85610; 86141; 94640

== ENCOUNTER → 2020-03-04 | Outpatient (CLI) | payer MEDICARE, MEDICAID | PROVIDERS: ATTEND Orthopaedic Surgery Sports Medicine | DX: Z01.89 Encounter for other specified special examinations (principal) | CPT/HCPCS: 87324; 87449; 87493 ==

== ENCOUNTER 2020-05-13 13:21 | Emergency (ER) | payer MEDICARE, MEDICAID ==
[~2020-05-13] VITALS: Ht 160 cm; Wt 136.0 kg
[~2020-05-13 13:21] MED LIST changes: +ACHD5005 PO; -HYDR-83 PO
[2020-05-13] MEDS ORDERED: NS IV 1000 ML 1,000 ML IV SCH (13:24)
[2020-05-13] MEDS ORDERED: KETAMINE/NaCl 50 MG/5 ML SYRINGE (ED ONLY) IV ONE ×2 (13:30→17:30)
--- NOTE | 2020-05-13 13:31 | ED Lower Extremity ---
General Stated Complaint: HIP PAIN History of Present Illness Date Seen by Provider: May 13, 2020 Time Seen by Provider: 13:20 Initial Comments This is a 69 yo female who presented via [facility] for intractable right hip pain. She had her right hip replaced at on May 07 and was discharged back to [facility] after an extended stay for septic arthritis in her right pelvic region. Presented today for intractable right hip pain. Nurses at facility state she has had no pain relief with prescribed Oxycodone 5mg tablets. She was discharged with Ancef 2gm IV TID with last dose at 0700 this am and enoxaparin 130mg subcut BID. Upon arrival she is yelling out in pain and guarding her right hip. States she can not feel her lower extremity and is unable to move her leg. Rates pain 10/10, constant stabbing and radiates down her right extremity. Nothing has helped with the pain. No fevers, chills, nausea/vomiting/diarrhea. No other complaints reported. [facility] states she was discharged with a wound vac which was removed today as scheduled and replaced with an Aquacel dressing. Onset: yesterday Pain/Injury Location: right hip Method of Injury: other (surgical site ) Modifying Factors: Worse With Jarring, Worse With Movement Allergies and Home Medications Allergies Coded Allergies: diphenhydramine (Verified Allergy, Unknown, 05/13/20) Home Medications Albuterol 8.5 Gm Hfa.aer.ad, 2 PUFF IH Q6H PRN, (Reported) NEEDED FOR SHORTNESS OF BREATH Amlodipine Besylate 5 Mg Tablet, 5 MG PO DAILY, (Reported) Atorvastatin 20 Mg Tablet, 20 MG PO HS, (Reported) Azithromycin 250 Mg Tab, 250 MG PO DAILY Prescribed by: DAVID LYON on 03/09/13 1015 Budesonide/Formoterol Fumarate 10.2 Gm Hfa.aer.ad, 2 PUFF IH BID PRN, (Reported) NEEDED FOR BREATHING Cephalexin 500 Mg Tablet, 500 MG PO BID Prescribed by: PAULINE GUPTA on 01/14/20 0334 Esomeprazole Mag Trihydrate 40 Mg Capsule.dr, 40 MG PO HS, (Reported) Furosemide 40 Mg Tablet, 40 MG PO DAILY, (Reported) Hydrocodone/Acetaminophen 1 Each Tablet, 1 EACH PO Q6H PRN for PAIN-BREAKTHROUGH Prescribed by: PAULINE GUPTA on 01/14/20 0334 Ipratropium [place] 12.9 Gm Aers, 2 PUFF INH QID PRN, (Reported) NEEDED FOR BREATHING Levothyroxine Sodium 150 Mcg Tablet, 150 MCG PO DAILY, (Reported) Lisinopril 40 Mg Tablet, 40 MG PO DAILY, (Reported) Potassium Chloride 10 Meq Tablet.sa, 10 MEQ PO HS, (Reported) Prednisone 20 Mg Tab, 20 MG PO DAILY Prescribed by: DAVID LYON on 03/09/13 1015 Sitagliptin Phosphate 100 Mg Tablet, 100 MG PO DAILY, (Reported) Tramadol Hcl 50 Mg Tablet, 50-100 MG PO TID PRN, (Reported) TAKES 1-2 (50MG) TABLETS THREE TIMES DAILY NEEDED FOR PAIN Warfarin Sodium 5 Mg Tablet, 5 MG PO HS, (Reported) Patient Home Medication List Home Medication List Reviewed: Yes Review of Systems Constitutional: no symptoms reported EENTM: no symptoms reported Respiratory: no symptoms reported Cardiovascular: no symptoms reported Gastrointestinal: no symptoms reported Genitourinary: no symptoms reported Musculoskeletal: see HPI Skin: see HPI Psychiatric/Neurological: No Symptoms Reported Past Oziyptl-Loeyor-Udoxwd Hx Patient Social History Type Used: Cigarettes 2nd Hand Smoke Exposure: Yes Recent Hopitalizations: No Immunizations Up To Date Tetanus Booster (TDap): Unknown Date of Pneumonia Vaccine: Mar 09, 2013 Seasonal Allergies Seasonal Allergies: No Past Medical History Surgeries: Yes (COLON REPAIR) Respiratory: Yes Asthma, Chronic Bronchitis, Sleep Apnea, COPD Cardiac: Yes Hypertension 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 Sexually Transmitted Disease: No Genitourinary: No Gastrointestinal: Yes Gastroesophageal Reflux, Diverticulosis Musculoskeletal: Yes Osteoporosis, Arthritis, Chronic Back Pain Endocrine: Yes Hypothyroidsim, Diabetes, Non-Insulin dep HEENT: Yes Cataract Loss of Vision: Left Hearing Impairment: Hard of Hearing Cancer: No Psychosocial: Yes Anxiety Integumentary: No Blood Disorders: No Physical Exam Vital Signs Vital Signs - First Documented 05/13/20 05/13/20 13:22 14:00 Temp 36.8 Pulse 102 Resp 18 B/P (MAP) 103/69 (80) Pulse Ox 94 O2 Delivery Nasal Cannula O2 Flow Rate 4.00 Capillary Refill : Height, Weight, BMI Height: '64.00" Weight: 261lbs. oz. 118.099903dy; 46.00 BMI Method: General Appearance: mild distress, obese HEENT: PERRL/EOMI; No scleral icterus (R) (dry, pale mucous membranes ), No scleral icterus (L); pale conjunctivae (R), pale conjunctivae (L), other Neck: full range of motion, supple, normal inspection Cardiovascular: normal peripheral pulses, other (irregular ) Respiratory: chest non-tender, lungs clear, normal breath sounds, no respiratory distress, no accessory muscle use Gastrointestinal: normal bowel sounds, non tender, soft Hips: left hip non-tender, left hip normal inspection, left hip normal range of motion, left hip no evidence of injury; right hip ecchymosis, right hip limited range of motion, right hip pain, right hip soft tissue tenderness, right hip swelling Legs: left leg non-tender, left leg normal inspection, left leg normal range of motion, left leg no evidence of injury; right leg ecchymosis, right leg limited range of motion, right leg pain, right leg soft tissue tenderness, right leg swelling Knees: left knee non-tender; right knee normal inspection; left knee normal range of motion; right knee no evidence of injury; left knee bone tenderness; right knee pain Ankles: left ankle non-tender, left ankle normal inspection, left ankle normal range of motion, left ankle no evidence of injury; right ankle limited range of motion, right ankle pain Feet: bilateral foot non-tender, bilateral foot normal inspection; left foot normal range of motion; bilateral foot no evidence of injury; right foot limited range of motion (Unable to move ) Neurologic/Tendon: motor deficit, sensory deficit Neurologic/Psychiatric: alert, normal mood/affect, oriented x 3 Skin: warm/dry, pallor Progress/Results/Core Measures Results/Orders Lab Results Laboratory Tests Test 05/13/20 13:31 Range/Units White Blood Count 17.3 H 4.3-11.0 10^3/uL Red Blood Count 1.91 L 3.80-5.11 10^6/uL Hemoglobin 5.4 *L 11.5-16.0 g/dL Hematocrit 18 *L 35-52 % Mean Corpuscular Volume 94 80-99 fL Mean Corpuscular Hemoglobin 28 25-34 pg Mean Corpuscular Hemoglobin Concent 30 L 32-36 g/dL Red Cell Distribution Width 17.7 H 10.0-14.5 % Platelet Count 368 130-400 10^3/uL Mean Platelet Volume 9.8 9.0-12.2 fL Immature Granulocyte % (Auto) 5 % Neutrophils (%) (Auto) 77 H 42-75 % Lymphocytes (%) (Auto) 10 L 12-44 % Monocytes (%) (Auto) 8 0-12 % Eosinophils (%) (Auto) 0 0-10 % Basophils (%) (Auto) 0 0-10 % Neutrophils # (Auto) 13.3 H 1.8-7.8 10^3/uL Lymphocytes # (Auto) 1.7 1.0-4.0 10^3/uL Monocytes # (Auto) 1.4 H 0.0-1.0 10^3/uL Eosinophils # (Auto) 0.0 0.0-0.3 10^3/uL Basophils # (Auto) 0.0 0.0-0.1 10^3/uL Immature Granulocyte # (Auto) 0.9 H 0.0-0.1 10^3/uL Neutrophils % (Manual) 73 % Lymphocytes % (Manual) 14 % Monocytes % (Manual) 6 % Eosinophils % (Manual) 1 % Metamyelocytes % 1 % Band Neutrophils 5 % Polychromasia SLIGHT Hypochromasia MODERATE Poikilocytosis Anisocytosis MODERATE Prothrombin Time 15.9 H 12.2-14.7 SEC INR Comment 1.2 0.8-1.4 Activated Partial Thromboplast Time 57 H 24-35 SEC D-Dimer 2.15 H 0.00-0.49 UG/ML Sodium Level 130 L 135-145 MMOL/L Potassium Level 5.5 H 3.6-5.0 MMOL/L Chloride Level 91 L 98-107 MMOL/L Carbon Dioxide Level 28 21-32 MMOL/L Anion Gap 11 5-14 MMOL/L Blood Urea Nitrogen 28 H 7-18 MG/DL Creatinine 1.10 0.60-1.30 MG/DL Estimat Glomerular Filtration Rate 50 BUN/Creatinine Ratio 25 Glucose Level 201 H 70-105 MG/DL Lactic Acid Level 3.10 *H 0.50-2.00 MMOL/L Calcium Level 8.5 8.5-10.1 MG/DL Corrected Calcium 9.4 8.5-10.1 MG/DL Total Bilirubin 0.6 0.1-1.0 MG/DL Aspartate Amino Transf (AST/SGOT) 22 5-34 U/L Alanine Aminotransferase (ALT/SGPT) < 6 0-55 U/L Alkaline Phosphatase 63 40-136 U/L Total Protein 6.6 6.4-8.2 GM/DL Albumin 2.9 L 3.2-4.5 GM/DL Procalcitonin 0.13 H <0.10 NG/ML My Orders Orders - HOUSTON GRAYSON APRN Ketamine Syringe (Ed Only) (Ketamine Syr (05/13/20 13:30) Cbc With Automated Diff (05/13/20 13:24) Comprehensive Metabolic Panel (05/13/20 13:24) Blood Culture (05/13/20 13:24) Protime With Inr (05/13/20:24) Partial Thromboplastin Time (05/13/20 13:24) Chest 1 View, Ap/Pa Only (05/13/20 13:24) Ed Iv/Invasive Line Start (05/13/20 13:24) Vital Signs Adult Sepsis Patie Q15M (05/13/20 13:24) O2 (05/13/20 13:24) Remove Rings In Anticipation O (05/13/20 13:24) Lactic Acid Analyzer (05/13/20 13:24) Ns Iv 1000 Ml (Sodium Chloride 0.9%) (05/13/20 13:24) Procalcitonin (Pct) (05/13/20 13:29) Fibrin Degradation Products (05/13/20 13:29) Manual Differential (05/13/20 13:31) Type And Screen (05/13/20 13:57) Red Cells Leukocytes Reduced (05/13/20 13:57) Hip, Right (Single View) (05/13/20 13:28) Piperacillin Sodium/Tazobactam (Zosyn Vi (05/13/20 15:00) Fentanyl Injection (Sublimaze Injection (05/13/20 15:00) Ct Pelvis Wo (05/13/20 15:01) Ns Iv 500 Ml (Sodium Chloride 0.9%) (05/13/20 15:13) Ns Iv 500 Ml (Sodium Chloride 0.9%) (05/13/20 15:45) Fentanyl Injection (Sublimaze Injection (05/13/20 16:00) Vancomycin Injection (Vancomycin Injecti (05/13/20 16:16) Vancomycin Injection (Vancomycin Injecti (05/14/20 05:00) Ketamine Syringe (Ed Only) (Ketamine Syr (05/13/20 17:30) Norepinephrine 4 Mg/250 Ml (Norepinephri (05/13/20 19:15) Ekg Tracing (05/13/20 19:26) Fentanyl Injection (Sublimaze Injection (05/13/20 19:30) Hydromorphone Injection (Dilaudid Inject (05/13/20 19:45) Medications Given in ED Current Medications Medications Dose Ordered Sig/Jordan Route Start Time Stop Time Status Last Admin Dose Admin Fentanyl Citrate 50 mcg ONCE ONCE IVP 05/13/20 15:00 05/13/20 15:01 DC 05/13/20 15:21 50 MCG Fentanyl Citrate 50 mcg ONCE ONCE IVP 05/13/20 16:00 05/13/20 16:01 DC 05/13/20 16:05 50 MCG Hydromorphone HCl 0.5 mg ONCE ONCE IV 05/13/20 19:45 05/13/20 19:46 DC 05/13/20 19:53 0.5 MG Ketamine HCl 25 mg ONCE ONCE IV 05/13/20 13:30 05/13/20 13:31 DC 05/13/20 13:32 25 MG Ketamine HCl 25 mg ONCE ONCE IV 05/13/20 17:30 05/13/20 17:31 DC 05/13/20 17:40 25 MG Piperacillin Sod/ Tazobactam Sod 4.5 gm/Sodium Chloride 100 ml @ 200 mls/hr ONCE ONCE IV 05/13/20 15:00 05/13/20 15:29 DC 05/13/20 16:05 200 MLS/HR Vital Signs/I&O 05/13/20 05/13/20 05/13/20 05/13/20 13:22 14:00 15:27 15:35 Temp 36.8 37.0 37.0 Pulse 102 108 106 Resp 18 16 16 B/P (MAP) 103/69 (80) 101/51 118/76 Pulse Ox 94 97 95 96 O2 Delivery Nasal Cannula Room Air Room Air O2 Flow Rate 4.00 05/13/20 05/13/20 05/13/20 05/13/20 17:21 17:45 19:21 19:47 Temp 36.4 36.8 36.3 Pulse 110 100 94 90 Resp 22 20 20 B/P (MAP) 90/62 107/63 119/75 110/63 Pulse Ox 93 94 100 O2 Delivery Room Air 05/14/20 00:00 Intake Total 1100 ml Balance 1100 ml Progress Progress Note : Progress Note Upon ED arrival, she was tachycardic and hypotensive. Concerns for sepsis as she had a recent right hip replacement on May 07 and has a current infection in that right hip joint. Basic labs, lactic acid, pro-calcitonin, UA, chest x- ray, right hip x-ray ordered. Initiated fluid therapy with saline bolus. She is receiving Ancef 2 g IV 3 times a day, with the last dose at 7:00 this a.m. Initial pain management with ketamine due to hypotension. She tolerated this very well. Elevated WBC of 17, hemoglobin 5.2, lactic acid 3.10, pro-calcitonin 0.13. Ordered type and cross with 2 units of PRBCs. First unit to be infused when available. Systolic blood pressure stabilized around 110s-120s after first unit of saline. Ordered Zosyn and vancomycin for microbial coverage. Ordered fentanyl 50mcg 2 doses for continued pain. Tolerated okay. CT results show possible hematoma formation vs abscess. Called [facility] at 1643, and discussed case. Returned call at [address] Pereyra with Ortho accepting patient transfer at this time. Patient to be transferred to [facility] with telemetry. However, Erna transfer RN requested update if systolic pressures dropped below 100. 1738. Updated Erna with systolic pressures in the upper 90s. Requested an update after second unit of PRBCs infused. Second dose of ketamine 25 mg ordered at this time. Was placed on levophed prior to transfer. Discussed with transfer team and agreed with initiating vasopressors, patient was upgraded to ICU status and new bed assignment obtained. Diagnostic Imaging Diagonstic Imaging: Xray Plain Films/CT/US/NM/MRI: chest Comments NAME: SANDRA POSADASMaribel Quevedo [facility] REC#: [id number] PT STATUS: REG ER : 1950 PHYSICIAN: HOUSTON GRAYSON [employer] ADMIT DATE: 05/13/20/ER Signed Date of Exam:05/13/20 CHEST 1 VIEW, AP/PA ONLY INDICATION: Sepsis COMPARISON STUDY: Chest from January 27. FINDINGS: Frontal view chest demonstrates stable cardiomegaly with normal vascularity. Lungs are clear. No pleural effusions are seen. IMPRESSION: There is stable cardiomegaly with no acute findings. Dictated by: Dictated on workstation # [id number] Dict: 05/13/204 Trans: 05/13/208 NIHARIKA [id number] Interpreted by: RICHARD STONE MD Electronically signed by: RICHARD STONE MD 05/13/20 1448 Diagonstic Imaging: Xray Plain Films/CT/US/NM/MRI: pelvis, hip Comments NAME: TAWANNA POSADASLMA [facility] REC#: [id number] PT STATUS: REG ER : 1950 PHYSICIAN: HOUSTON GRAYSON [employer] ADMIT DATE: 05/13/20/ER Signed Date of Exam:05/13/20 HIP, RIGHT (SINGLE VIEW) INDICATION: Right hip pain. FINDINGS: AP view of the right hip is compared to an exam from January 13. A right femoral head prosthesis is now present. No evidence of loosening is present. No fractures identified. IMPRESSION: Interval postoperative right hip. No fractures are present. Dictated by: Dictated on workstation # [id number] Dict: 05/13/201433 Trans: 05/13/20 1449 NIHARIKA [id number] Interpreted by: RICHARD STONE MD Electronically signed by: RICHARD STONE MD 05/13/20 1449 Diagonstic Imaging: CT Plain Films/CT/US/NM/MRI: pelvis Comments NAME: CUAUHTEMOCSHMUEL [facility] REC#: [id number] PT STATUS: REG ER : 1950 PHYSICIAN: HOUSTON GRAYSON [employer] ADMIT DATE: 05/13/20/ER Draft Date of Exam:05/13/20 CT PELVIS WO PROCEDURE: CT pelvis without contrast. TECHNIQUE: Multiple contiguous axial images were obtained through the pelvis without the use of intravenous contrast. Sagittal and coronal reformations were performed. Auto Exposure Controls were utilized during the CT exam to meet ALARA standards for radiation dose reduction. INDICATION: Right hip pain. FINDINGS: The previous CT pelvis exam of 01/14/2020 failed to show any sign of an acute bony abnormality. In the interval since the prior exam, the patient has undergone a surgical procedure and there is now a total hip prosthesis in place on the right. The plain film examination of the right hip performed earlier today failed to show any sign of an acute bony abnormality. On this study, the prosthetic components appear to be in good position. There is no fracture or acute bony abnormality appreciated. However, there is a large fluid collection of mixed density posterior to the right hip joint. This measures approximately 9.6 x 10.7 x 13.1 cm. I suspect that this is related to a large hematoma. There is also considerable distortion of the subcutaneous fat in this area. Furthermore, just inferior to this there is another thicker walled fluid collection adjacent to the posterior margin of the proximal femoral shaft. This measures 6.0 x 7.2 x 3.1 cm although this finding is not visualized in its entirety. This too is most likely a hematoma. The possibility that these are related to abscesses would be less likely but should still be considered. There is no intrapelvic mass or free fluid collection noted. As seen on the prior exam, the uterus is surgically absent. The urinary bladder is grossly unremarkable. There is a considerable amount of fecal material throughout the colon. There is a 7.4 cm cystic mass in the left adnexa. This was present on the prior exam and has not changed. This could be arising from the inferior pole of the left kidney. If further study is desired, then renal ultrasound exam would be recommended. IMPRESSION: 1. There is no evidence for an acute bony abnormality. The total hip prosthesis on the right appears to be in good position. 2. The large fluid collection adjacent to the hip joint may be secondary to hematoma formation. It would be possible although less likely that they are related to abscess formation. Clinical follow-up is recommended. 3. There is no acute intrapelvic abnormality noted. 4. The 7.4 cm cystic lesion in the left adnexa may be a cyst arising from the inferior pole of the left kidney. Recommendations as above. Dictated on workstation # [id number] Dict: 05/13/20 1605 Trans: 05/13/20 1636 [facility] [id number] Interpreted by: EVELIO HERNANDEZ MD Electronically signed by: Departure Impression Primary Impression: Septic arthritis Additional Impression: Anemia Disposition: 02 XFER SHT-TRM HOSP Condition: Stable Admissions Decision to Admit Reason: Admit from ER (General) Decision to Admit/Date: May 13, 2020 Time/Decision to Admit Time: 16:40 Transfer Transfer Reason: Exceeds level of care Time Spoke to Accepting Phy: 16:43 Transfer Progress Notes Discussed case with Erna GRANT via transfer line. Notified that accepting. Transfer Time: 20:02 Transfer Facility: [facility] Method of Transfer: EMS Departure-Patient Inst. Referrals: GEORGINA RODRIGUEZ (PCP) Primary Care Physician [facility] (Family) Primary Care Physician HOUSTON GRAYSON [employer] May 13, 2020 13:31
[2020-05-13 13:45] LABS: ALBUMIN 2.9 GM/DL (3.2-4.5); BASOPHILS % (AUTO) 0 % (0-10); EOSINOPHILS % (AUTO) 0 % (0-10); LYMPHOCYTES # (AUTO) 1.7 10^3/uL (1.0-4.0); LYMPHOCYTES % (AUTO) 10 % (12-44); MEAN CORPUSCULAR HEMOGLOBIN 28 pg (25-34); MEAN CORPUSCULAR HGB CONC 30 g/dL (32-36); MEAN CORPUSCULAR VOLUME 94 fL (80-99); MEAN PLATELET VOLUME 9.8 fL (9.0-12.2); MONOCYTES # (AUTO) 1.4 10^3/uL (0.0-1.0); MONOCYTES % (AUTO) 8 % (0-12); NEUTROPHILS # (AUTO) 13.3 10^3/uL (1.8-7.8); NEUTROPHILS % (AUTO) 77 % (42-75); PLATELET COUNT 368 10^3/uL (130-400); WHITE BLOOD COUNT 17.3 10^3/uL (4.3-11.0)
[2020-05-13 13:46] LABS: CHLORIDE 91 MMOL/L (98-107); POTASSIUM 5.5 MMOL/L (3.6-5.0); SODIUM 130 MMOL/L (135-145)
[2020-05-13 13:47] LABS: CALCIUM 8.5 MG/DL (8.5-10.1)
[2020-05-13 13:48] LABS: GLUCOSE 201 MG/DL (70-105); TOTAL PROTEIN 6.6 GM/DL (6.4-8.2)
[2020-05-13 13:49] LABS: CARBON DIOXIDE 28 MMOL/L (21-32)
[2020-05-13 13:50] LABS: BILIRUBIN,TOTAL 0.6 MG/DL (0.1-1.0)
[2020-05-13 13:51] LABS: ALKALINE PHOSPHATASE 63 U/L (40-136)
[2020-05-13 13:52] LABS: GFR ESTIMATED 50
[2020-05-13 13:53] LABS: BUN/CREATININE RATIO 25; FIBRIN DEGRADATION PRODUCTS 2.15 UG/ML (0.00-0.49); INR 1.2 (0.8-1.4); PROTHROMBIN TIME PATIENT 15.9 SEC (12.2-14.7)
[2020-05-13 13:55] LABS: ALANINE AMINOTRANSFERASE < 6 U/L (0-55)
[2020-05-13 13:57] LABS: HEMATOCRIT 18 % (35-52); HEMOGLOBIN 5.4 g/dL (11.5-16.0)
[2020-05-13 13:58] LABS: BAND NEUTROPHILS 5 %; EOSINOPHILS % (MANUAL) 1 %; HYPOCHROMASIA MODERATE; LYMPHOCYTES % (MANUAL) 14 %; METAMYELOCYTES % 1 %; MONOCYTES % (MANUAL) 6 %; NEUTROPHILS % (MANUAL) 73 %; POLYCHROMASIA SLIGHT
[2020-05-13 13:59] LABS: ANISOCYTOSIS MODERATE
--- NOTE | 2020-05-13 14:46 | Diagnostic Imaging Report ---
INDICATION: Sepsis COMPARISON STUDY: Chest from January 27. FINDINGS: Frontal view chest demonstrates stable cardiomegaly with normal vascularity. Lungs are clear. No pleural effusions are seen. IMPRESSION: There is stable cardiomegaly with no acute findings. Dictated by: Dictated on workstation # [id number]
--- NOTE | 2020-05-13 14:48 | Diagnostic Imaging Report ---
INDICATION: Right hip pain. FINDINGS: AP view of the right hip is compared to an exam from January 13. A right femoral head prosthesis is now present. No evidence of loosening is present. No fractures identified. IMPRESSION: Interval postoperative right hip. No fractures are present. Dictated by: Dictated on workstation # [id number]
[2020-05-13] MEDS ORDERED: fentaNYL INJECTION 100 MCG/2 ML AMP IVP ONE ×3 (15:00→19:30)
[2020-05-13] MEDS ORDERED: PIPERACILLIN SODIUM/TAZOBACTAM 4.5 GM in NS (IVPB) 100 ML IV ONE (15:00)
[2020-05-13] MEDS ORDERED: VANCOMYCIN INJECTION 1,000 MG in NS (IVPB) 250 ML IV SCH (15:00)
--- NOTE | 2020-05-13 15:00 | NUR ---
PT VOICING INCREASED PAIN AT THIS TIME. PT REQUESTING PAIN MEDICATION. HOUSTON INFORMED.
[2020-05-13] MEDS ORDERED: NS IV 500 ML 500 ML ONE (15:13)
[2020-05-13 15:27] VITALS: BP 101/51
[2020-05-13 15:35] VITALS: BP 118/76
[2020-05-13] MEDS ORDERED: NS IV 500 ML 500 ML IV SCH (15:45)
--- NOTE | 2020-05-13 16:00 | NUR ---
PT READJUSTED IN BED AT THIS TIME. PILLOWS PLACED ON PRESSURE POINTS FOR COMFORT.
[2020-05-13] MEDS ORDERED: VANCOMYCIN 2000 MG/NS 500 ML IVPB IV NR ×2 (16:16)
--- NOTE | 2020-05-13 16:20 | NUR ---
Vancomycin - Act. bodywt: 136kg: Loading dose at 2gm over 2 hours x 1, then 1500mg every 12 hours. CrCl = 67ml/min using adj. bodywt. Trough to be drawn prior to 4th total dose.
--- NOTE | 2020-05-13 16:37 | Diagnostic Imaging Report ---
PROCEDURE: CT pelvis without contrast. TECHNIQUE: Multiple contiguous axial images were obtained through the pelvis without the use of intravenous contrast. Sagittal and coronal reformations were performed. Auto Exposure Controls were utilized during the CT exam to meet ALARA standards for radiation dose reduction. INDICATION: Right hip pain. FINDINGS: The previous CT pelvis exam of 01/14/2020 failed to show any sign of an acute bony abnormality. In the interval since the prior exam, the patient has undergone a surgical procedure and there is now a total hip prosthesis in place on the right. The plain film examination of the right hip performed earlier today failed to show any sign of an acute bony abnormality. On this study, the prosthetic components appear to be in good position. There is no fracture or acute bony abnormality appreciated. However, there is a large fluid collection of mixed density posterior to the right hip joint. This measures approximately 9.6 x 10.7 x 13.1 cm. I suspect that this is related to a large hematoma. There is also considerable distortion of the subcutaneous fat in this area. Furthermore, just inferior to this there is another thicker walled fluid collection adjacent to the posterior margin of the proximal femoral shaft. This measures 6.0 x 7.2 x 3.1 cm although this finding is not visualized in its entirety. This too is most likely a hematoma. The possibility that these are related to abscesses would be less likely but should still be considered. There is no intrapelvic mass or free fluid collection noted. As seen on the prior exam, the uterus is surgically absent. The urinary bladder is grossly unremarkable. There is a considerable amount of fecal material throughout the colon. There is a 7.4 cm cystic mass in the left adnexa. This was present on the prior exam and has not changed. This could be arising from the inferior pole of the left kidney. If further study is desired, then a renal ultrasound exam would be recommended. IMPRESSION: 1. There is no evidence for an acute bony abnormality. The total hip prosthesis on the right appears to be in good position. 2. The large fluid collections adjacent to the hip joint may be secondary to hematoma formation. It would be possible although less likely that they are related to abscess formation. Clinical follow-up is recommended. 3. There is no acute intrapelvic abnormality noted. 4. The 7.4 cm cystic lesion in the left adnexa may be a cyst arising from the inferior pole of the left kidney. Recommendations as above. Dictated by: Dictated on workstation # [id number]
--- NOTE | 2020-05-13 16:47 | NUR ---
PT'S DAUGHTER CALLED, WANTING UPDATE ON PLAN OF CARE. DAUGHTER AWARE OF PLANS TO TRANSFER PT BACK TO FOR CARE. NO OTHER QUESTIONS/CONCERNS VOICED.
[2020-05-13 17:21] VITALS: BP 90/62
[2020-05-13 17:45] VITALS: BP 107/63
--- NOTE | 2020-05-13 18:00 | NUR ---
[facility] CONTACTED AT THIS TIME REGARDING PT PROGRESS TO TRANSFER TO .
--- NOTE | 2020-05-13 18:26 | NUR ---
[facility] ems captain contacted at this time regarding transportation status
--- NOTE | 2020-05-13 18:42 | NUR ---
PT RESTING WITH EYES CLOSED AT THIS TIME, NO APPARENT DISTRESS NOTED.
[2020-05-13] MEDS ORDERED: NOREPINEPHRINE 4 MG/250 ML 250 ML IV SCH (19:15)
[2020-05-13] MEDS ORDERED: HYDROmorphone 2 MG/ML VIAL (DILAUDID) IV ONE (19:45)
[2020-05-13 19:47] VITALS: BP 110/63
[2020-05-14] MEDS ORDERED: VANCOMYCIN 1500 MG/NS 500 ML IVPB IV SCH ×2 (05:00)
[2020-05-14 06:08] VITALS: BP 122/75
== END 2020-05-13 20:02 | disposition short-term general hospital (02) ==
LOC: EDUNIT# 13:21 → ER 13:22
DX: M00.9 Pyogenic arthritis, unspecified (principal); D64.9 Anemia, unspecified; E66.9 Obesity, unspecified; E03.9 Hypothyroidism, unspecified; J44.9 Chronic obstructive pulmonary disease, unspecified; K21.9 Gastro-esophageal reflux disease without esophagitis; I10 Essential (primary) hypertension; E11.9 Type 2 diabetes mellitus without complications; G89.29 Other chronic pain; M54.9 Dorsalgia, unspecified; Z68.42 Body mass index [BMI] 45.0-49.9, adult; Z77.22 Contact with and (suspected) exposure to environmental tobacco smoke (acute) (chronic); Z79.890 Hormone replacement therapy; Z88.8 Allergy status to other drugs, medicaments and biological substances; Z79.01 Long term (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; Z79.52 Long term (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 systemic steroids; Z79.891 Long term (current) use of opiate analgesic
CPT/HCPCS: 36415; 71045; 72192; 73501; 80053; 83605; 84145; 85007; 85027; 85379; 85610; 85730; 86850; 86900; 86901; 86920; 87040; 93005

== ENCOUNTER 2020-09-07 09:03 | Emergency (ER) | payer MEDICARE, MEDICAID ==
[~2020-09-07] VITALS: Ht 162 cm; Wt 268.0 kg
--- NOTE | 2020-09-07 09:20 | NUR ---
this nurse attempted to flush catheter, very hard to flush, per verbal doctor order. new cath placed.
[2020-09-07] MEDS ORDERED: LIDOCAINE UROJET 2% GEL 10 ML PKG TOP ONE (09:30)
--- NOTE | 2020-09-07 09:36 | ED GU-Female ---
General Chief Complaint: - Urinary Stated Complaint: FOLLEY ISSUES Source: patient, EMS Exam Limitations: no limitations History of Present Illness Date Seen by Provider: Sep 07, 2020 Time Seen by Provider: 09:18 Initial Comments Patient is a 70-year-old female who presents to the emergency department today with a chief complaint of lower abdominal/pelvic pain related to the placement of her Marte catheter. Patient had acute onset of abdominal pain last night and her Marte catheter stopped draining at around 7 PM last night. She has had progressive and persistent vaginal and suprapubic discomfort since that time. She reports no fevers or chills. She has been leaking some urine around the catheter. Catheter was placed secondary to having a right hip septic joint that is currently being treated and has an open wound. The catheter was placed to help keep the wound clean. No reported fevers, chills, nausea, vomiting. All other review of systems reviewed and negative except as stated above. Timing/Duration: yesterday, getting worse Severity/Quality: severe, aching, cramping Location: suprapubic Radiation: none Activities at Onset: none Associated Symptoms: abdominal pain Allergies and Home Medications Allergies Coded Allergies: diphenhydramine (Verified Allergy, Unknown, 05/13/20) Home Medications Albuterol 8.5 Gm Hfa.aer.ad, 2 PUFF IH Q6H PRN, (Reported) NEEDED FOR SHORTNESS OF BREATH Amlodipine Besylate 5 Mg Tablet, 5 MG PO DAILY, (Reported) Atorvastatin 20 Mg Tablet, 20 MG PO HS, (Reported) Azithromycin 250 Mg Tab, 250 MG PO DAILY Prescribed by: DAVID LYON on 03/09/13 1015 Budesonide/Formoterol Fumarate 10.2 Gm Hfa.aer.ad, 2 PUFF IH BID PRN, (Reported) NEEDED FOR BREATHING Cephalexin 500 Mg Tablet, 500 MG PO BID Prescribed by: PAULINE GUPTA on 01/14/20 0334 Esomeprazole Mag Trihydrate 40 Mg Capsule.dr, 40 MG PO HS, (Reported) Furosemide 40 Mg Tablet, 40 MG PO DAILY, (Reported) Hydrocodone/Acetaminophen 1 Each Tablet, 1 EACH PO Q6H PRN for PAIN-BREAKTHROUGH Prescribed by: PAULINE GUPTA on 01/14/20 0334 Ipratropium [place] 12.9 Gm Aers, 2 PUFF INH QID PRN, (Reported) NEEDED FOR BREATHING Levothyroxine Sodium 150 Mcg Tablet, 150 MCG PO DAILY, (Reported) Lisinopril 40 Mg Tablet, 40 MG PO DAILY, (Reported) Potassium Chloride 10 Meq Tablet.sa, 10 MEQ PO HS, (Reported) Prednisone 20 Mg Tab, 20 MG PO DAILY Prescribed by: DAVID LYON on 03/09/13 1015 Sitagliptin Phosphate 100 Mg Tablet, 100 MG PO DAILY, (Reported) Tramadol Hcl 50 Mg Tablet, 50-100 MG PO TID PRN, (Reported) TAKES 1-2 (50MG) TABLETS THREE TIMES DAILY NEEDED FOR PAIN Warfarin Sodium 5 Mg Tablet, 5 MG PO HS, (Reported) Patient Home Medication List Home Medication List Reviewed: Yes Review of Systems Review of Systems Constitutional: see HPI EENTM: no symptoms reported Respiratory: no symptoms reported Cardiovascular: no symptoms reported Gastrointestinal: abdominal pain Genitourinary: pain, urgency : No Musculoskeletal: no symptoms reported Skin: no symptoms reported Psychiatric/Neurological: Anxiety All Other Systemes Reviewed Negative Unless Noted: Yes Past Iovjbqs-Terspb-Gdbtzo Hx Patient Social History Type Used: Cigarettes Former Smoker, Quit: Jan 24, 2020 2nd Hand Smoke Exposure: Yes Recent Hopitalizations: No Immunizations Up To Date Tetanus Booster (TDap): Unknown Date of Pneumonia Vaccine: Mar 09, 2013 Seasonal Allergies Seasonal Allergies: No Past Medical History Surgeries: Yes (COLON REPAIR, wound vac r hip,) Respiratory: Yes Asthma, Chronic Bronchitis, Sleep Apnea, COPD Cardiac: Yes Hypertension Neurological: No 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 oz. [phone]; 53.00 BMI Method: General Appearance: WD/WN, severe distress HEENT: PERRL/EOMI Cardiovascular: regular rate, rhythm Respiratory: lungs clear, normal breath sounds, no respiratory distress, no accessory muscle use Gastrointestinal: soft, tenderness (Suprapubic tenderness on palpation around the bladder.) Genital/Rectal: normal genital exam Extremities: non-tender Neurologic/Psychiatric: alert, normal mood/affect, oriented x 3 Progress/Results/Core Measures Suspected Sepsis SIRS Temperature: Pulse: Respiratory Rate: Blood Pressure / Mean: Results/Orders Lab Results Laboratory Tests Test 09/07/20 09:23 Range/Units Urine Color YELLOW Urine Clarity VERY CLOUDY H Urine pH 7.0 5-9 Urine Specific [place] 1.010 L 1.016-1.022 Urine Protein 1+ H NEGATIVE Urine Glucose (UA) NEGATIVE NEGATIVE Urine Ketones NEGATIVE NEGATIVE Urine Nitrite NEGATIVE NEGATIVE Urine Bilirubin NEGATIVE NEGATIVE Urine Urobilinogen 0.2 < = 1.0 MG/DL Urine Leukocyte Esterase 2+ H NEGATIVE Urine RBC (Auto) 2+ H NEGATIVE Urine RBC 25-50 H /HPF Urine WBC TNTC H /HPF Urine Crystals NONE /LPF Urine Bacteria LARGE H /HPF Urine Casts NONE /LPF Urine Mucus NEGATIVE /LPF Urine Culture Indicated YES My Orders Orders - DREA ANDERS MD Lidocaine 2% (Urojet) (Xylocaine Urojet) (09/07/20 09:30) Ua Culture If Indicated (09/07/20 09:19) Urine Culture (09/07/20 09:23) Ceftriaxone For Iv Use (Rocephin For I (09/07/20 10:15) Ceftriaxone For Im Use (Rocephin For Im (09/07/20 11:15) Lidocaine 1% Inj 20 Ml (Xylocaine 1% Inj (09/07/20 11:15) Medications Given in ED Current Medications Medications Dose Ordered Sig/Jordan Route Start Time Stop Time Status Last Admin Dose Admin Lidocaine HCl 10 ml ONCE ONCE TOP 09/07/20 09:30 09/07/20 09:31 DC 09/07/20 10:38 10 ML Vital Signs/I&O Capillary Refill : Progress Note : Time: 09:35 Progress Note Nursing staff attempted to deflate the indwelling Marte catheter bulb and replace it with some success of draining of urine. Patient continued to complain of pain, after this was manipulated bladder scan showed approximately 500+ mL of urine in her bladder. We elected to use Xylocaine local pain relief and pull the catheter that is been present there for a week out upon removing the catheter the patient voided a large amount of urine. 16 [place] Marte catheter was replaced. The patient continues to have relief of symptoms, feels much better. Departure Impression Primary Impression: Acute urinary retention Additional Impression: Urinary tract infection Qualified Codes: T83.511A - Infection and inflammatory reaction due to indwelling urethral catheter, initial encounter; N39.0 - Urinary tract infection, site not specified Disposition: 01 HOME, SELF-CARE Condition: Stable Departure-Patient Inst. Decision time for Depature: 11:16 Referrals: [facility] [place] Primary Care Physician Patient Instructions: Urinary Tract Infection, Adult (DC), Marte Catheter, Female Add. Discharge Instructions: Drink lots of fluids in order to stay well-hydrated. Take the antibiotic I have prescribed you twice a day for the next week. Your antibiotic prescription has been sent to [place] pharmacy. Please keep your follow-up appointments with your primary care physician. Return to the emergency department for any new, worsening or concerning symptoms. Scripts Nitrofurantoin Monohyd/M-Cryst (Macrobid 100 mg Capsule) 100 Mg Capsule 1 TAB PO BID for 7 Days, #14 CAP Prov: DREA ANDERS MD 09/07/20 DREA ANDERS MD Sep 07, 2020 09:36
[2020-09-07 09:50] LABS: CLARITY,URINE VERY CLOUDY; COLOR,URINE YELLOW; GLUCOSE, URINE (UA) NEGATIVE (NEGATIVE); PROTEIN,URINE 1+ (NEGATIVE)
[2020-09-07 09:51] LABS: BACTERIA,URINE LARGE /HPF; BILIRUBIN,URINE NEGATIVE (NEGATIVE); KETONES,URINE NEGATIVE (NEGATIVE); LEUKOCYTE ESTERASE ,URINE 2+ (NEGATIVE); NITRITE,URINE NEGATIVE (NEGATIVE); RBC,URINE 25-50 /HPF; WBC,URINE TNTC /HPF
[2020-09-07] MEDS ORDERED: cefTRIAXone FOR IV USE 1,000 MG in WATER (STERILE) FOR INJECTION 10 ML IV ONE (10:15)
[2020-09-07] MEDS ORDERED: LIDOCAINE 1% INJ 20 ML 20 ML VIAL INJ ONE (11:15)
[2020-09-07] MEDS ORDERED: cefTRIAXone 1,000 MG/2.86 ml vial (IM ONLY) IM SCH (11:15)
[2020-09-07] MEDS ORDERED: NITR-65 PO (11:17)
[2020-09-07 12:13] VITALS: BP 147/68
--- NOTE | 2020-09-07 12:13 | NUR ---
[facility] arrival to transport the patient back to her residence.
== END 2020-09-07 12:19 | disposition home or self-care (01) ==
LOC: EDUNIT# 09:03 → ER 09:05
DX: R33.9 Retention of urine, unspecified (principal); N39.0 Urinary tract infection, site not specified; K21.9 Gastro-esophageal reflux disease without esophagitis; J44.9 Chronic obstructive pulmonary disease, unspecified; F41.9 Anxiety disorder, unspecified; I10 Essential (primary) hypertension; G89.29 Other chronic pain; M54.9 Dorsalgia, unspecified; E03.9 Hypothyroidism, unspecified; E11.9 Type 2 diabetes mellitus without complications; Z87.891 Personal history of nicotine dependence; Z88.8 Allergy status to other drugs, medicaments and biological substances; Z79.01 Long term (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; Z79.52 Long term (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 systemic steroids; Z79.891 Long term (current) use of opiate analgesic; Z79.890 Hormone replacement therapy
CPT/HCPCS: 51702; 81000; 87077; 87088; 87186

== ENCOUNTER 2020-09-11 09:09 | Outpatient (RCR) | payer MEDICARE, MEDICAID ==
[~2020-09-11 09:09] MED LIST changes: +NITR-65 PO
[2020-09-11 09:26] LABS: BASOPHILS % (AUTO) 0 % (0-10); EOSINOPHILS # (AUTO) 0.4 10^3/uL (0.0-0.3); EOSINOPHILS % (AUTO) 4 % (0-10); HEMATOCRIT 41 % (35-52); HEMOGLOBIN 12.9 g/dL (11.5-16.0); LYMPHOCYTES # (AUTO) 1.9 10^3/uL (1.0-4.0); LYMPHOCYTES % (AUTO) 20 % (12-44); MEAN CORPUSCULAR HEMOGLOBIN 29 pg (25-34); MEAN CORPUSCULAR HGB CONC 32 g/dL (32-36); MEAN CORPUSCULAR VOLUME 92 fL (80-99); MEAN PLATELET VOLUME 9.1 fL (9.0-12.2); MONOCYTES # (AUTO) 0.7 10^3/uL (0.0-1.0); MONOCYTES % (AUTO) 7 % (0-12); NEUTROPHILS # (AUTO) 6.5 10^3/uL (1.8-7.8); NEUTROPHILS % (AUTO) 68 % (42-75); PLATELET COUNT 306 10^3/uL (130-400); WHITE BLOOD COUNT 9.6 10^3/uL (4.3-11.0)
[2020-09-11 10:05] LABS: ALANINE AMINOTRANSFERASE 12 U/L (0-55); ALBUMIN 3.5 GM/DL (3.2-4.5); ALKALINE PHOSPHATASE 86 U/L (40-136); BILIRUBIN,TOTAL 0.6 MG/DL (0.1-1.0); BUN/CREATININE RATIO 16; CALCIUM 9.2 MG/DL (8.5-10.1); CARBON DIOXIDE 27 MMOL/L (21-32); CHLORIDE 94 MMOL/L (98-107); CREATININE SERUM 0.81 MG/DL (0.60-1.30); GFR ESTIMATED > 60; GLUCOSE 249 MG/DL (70-105); POTASSIUM 3.8 MMOL/L (3.6-5.0); SODIUM 135 MMOL/L (135-145); TOTAL PROTEIN 7.8 GM/DL (6.4-8.2)
== END 2020-12-10 | disposition home or self-care (01) ==
LOC: ONC 09:09
PROVIDERS: ATTEND Internal Medicine Hematology & Oncology
DX: C64.2 Malignant neoplasm of left kidney, except renal pelvis (principal); I11.9 Hypertensive heart disease without heart failure; E11.9 Type 2 diabetes mellitus without complications; E78.00 Pure hypercholesterolemia, unspecified; L02.415 Cutaneous abscess of right lower limb; M86.8X8 Other osteomyelitis, other site; E11.69 Type 2 diabetes mellitus with other specified complication; Z98.890 Other specified postprocedural states
CPT/HCPCS: 80053; 83615; 85025; 99214

== ENCOUNTER → 2020-10-02 | Outpatient (CLI) | payer MEDICARE, MEDICAID ==
[2020-10-02 11:30] LABS: BASOPHILS % (AUTO) 1 % (0-10); EOSINOPHILS # (AUTO) 0.2 10^3/uL (0.0-0.3); EOSINOPHILS % (AUTO) 3 % (0-10); HEMATOCRIT 43 % (35-52); HEMOGLOBIN 13.6 g/dL (11.5-16.0); LYMPHOCYTES # (AUTO) 2.1 10^3/uL (1.0-4.0); LYMPHOCYTES % (AUTO) 24 % (12-44); MEAN CORPUSCULAR HEMOGLOBIN 29 pg (25-34); MEAN CORPUSCULAR HGB CONC 32 g/dL (32-36); MEAN CORPUSCULAR VOLUME 92 fL (80-99); MEAN PLATELET VOLUME 9.2 fL (9.0-12.2); MONOCYTES # (AUTO) 0.6 10^3/uL (0.0-1.0); MONOCYTES % (AUTO) 7 % (0-12); NEUTROPHILS # (AUTO) 5.8 10^3/uL (1.8-7.8); NEUTROPHILS % (AUTO) 66 % (42-75); PLATELET COUNT 308 10^3/uL (130-400); WHITE BLOOD COUNT 8.8 10^3/uL (4.3-11.0)
[2020-10-02 11:53] LABS: ALANINE AMINOTRANSFERASE 10 U/L (0-55); ALBUMIN 3.5 GM/DL (3.2-4.5); ALKALINE PHOSPHATASE 94 U/L (40-136); BILIRUBIN,TOTAL 0.8 MG/DL (0.1-1.0); BUN/CREATININE RATIO 15; CALCIUM 9.4 MG/DL (8.5-10.1); CARBON DIOXIDE 27 MMOL/L (21-32); CHLORIDE 95 MMOL/L (98-107); CREATININE SERUM 0.84 MG/DL (0.60-1.30); GFR ESTIMATED > 60; GLUCOSE 188 MG/DL (70-105); SODIUM 133 MMOL/L (135-145)
== END ==
LOC: WOUNDCARE 08:34
PROVIDERS: ATTEND Surgery
DX: L98.492 Non-pressure chronic ulcer of skin of other sites with fat layer exposed (principal); E11.622 Type 2 diabetes mellitus with other skin ulcer; T81.31XA Disruption of external operation (surgical) wound, not elsewhere classified, initial encounter; E66.01 Morbid (severe) obesity due to excess calories; T65.222A Toxic effect of tobacco cigarettes, intentional self-harm, initial encounter; F17.218 Nicotine dependence, cigarettes, with other nicotine-induced disorders; Z68.42 Body mass index [BMI] 45.0-49.9, adult
CPT/HCPCS: 36415; 80053; 83036; 85025; 99214

== ENCOUNTER → 2020-10-02 | Outpatient (CLI) | payer MEDICARE, MEDICAID ==
--- NOTE | 2020-10-02 11:40 | Diagnostic Imaging Report ---
INDICATION: Wound care. Postop hip. COMPARISON: 05/13/2020 FINDINGS: 2 radiographic views of the right hip were obtained. Since the previous exam, femoral hardware has since been removed. There is proximal retraction of the remainder of the [place] right femoral hip in respect to the acetabulum. Multiple extraosseous calcifications are also noted about the joint space. Surgical clips are present. No unexpected radiopaque foreign bodies are seen. IMPRESSION: 1. Postoperative changes in the right hip as above. Dictated by: Dictated on workstation # [id number]
== END ==
LOC: RAD 10:38
PROVIDERS: ATTEND Surgery
DX: L98.492 Non-pressure chronic ulcer of skin of other sites with fat layer exposed (principal); T81.31XA Disruption of external operation (surgical) wound, not elsewhere classified, initial encounter; E11.622 Type 2 diabetes mellitus with other skin ulcer; E66.01 Morbid (severe) obesity due to excess calories; T65.222A Toxic effect of tobacco cigarettes, intentional self-harm, initial encounter; F17.218 Nicotine dependence, cigarettes, with other nicotine-induced disorders
CPT/HCPCS: 73502

== ENCOUNTER → 2020-10-09 | Outpatient (CLI) | payer MEDICARE, MEDICAID | LOC: WOUNDCARE 11:52 | PROVIDERS: ATTEND Surgery | DX: L98.492 Non-pressure chronic ulcer of skin of other sites with fat layer exposed (principal); T81.31XA Disruption of external operation (surgical) wound, not elsewhere classified, initial encounter; E11.622 Type 2 diabetes mellitus with other skin ulcer; E66.01 Morbid (severe) obesity due to excess calories; T65.222A Toxic effect of tobacco cigarettes, intentional self-harm, initial encounter; E11.52 Type 2 diabetes mellitus with diabetic peripheral angiopathy with gangrene; F17.218 Nicotine dependence, cigarettes, with other nicotine-induced disorders | CPT/HCPCS: 99212 ==

== ENCOUNTER → 2020-10-16 | Outpatient (CLI) | payer MEDICARE, MEDICAID | LOC: WOUNDCARE 11:56 | PROVIDERS: ATTEND Surgery | DX: L98.492 Non-pressure chronic ulcer of skin of other sites with fat layer exposed (principal); I96 Gangrene, not elsewhere classified; E11.622 Type 2 diabetes mellitus with other skin ulcer; T65.222A Toxic effect of tobacco cigarettes, intentional self-harm, initial encounter; T81.31XA Disruption of external operation (surgical) wound, not elsewhere classified, initial encounter; E66.01 Morbid (severe) obesity due to excess calories; F17.218 Nicotine dependence, cigarettes, with other nicotine-induced disorders; Z68.42 Body mass index [BMI] 45.0-49.9, adult | CPT/HCPCS: 99212 ==

== ENCOUNTER → 2020-10-23 | Outpatient (CLI) | payer MEDICARE, MEDICAID | LOC: WOUNDCARE 11:54 | PROVIDERS: ATTEND Surgery | DX: L98.492 Non-pressure chronic ulcer of skin of other sites with fat layer exposed (principal); I96 Gangrene, not elsewhere classified; T81.31XA Disruption of external operation (surgical) wound, not elsewhere classified, initial encounter; E11.622 Type 2 diabetes mellitus with other skin ulcer; E66.01 Morbid (severe) obesity due to excess calories; T65.222A Toxic effect of tobacco cigarettes, intentional self-harm, initial encounter; F17.218 Nicotine dependence, cigarettes, with other nicotine-induced disorders; Z68.42 Body mass index [BMI] 45.0-49.9, adult | CPT/HCPCS: 99213 ==

== ENCOUNTER 2021-03-01 21:02 | Emergency (ER) | payer MEDICARE, MEDICAID ==
[~2021-03-01] VITALS: Ht 162.5 cm; Wt 268.0 kg
[2021-03-01] MEDS ORDERED: NS IV 1000 ML 1,000 ML IV SCH (21:30)
[2021-03-01 21:31] LABS: BASOPHILS % (AUTO) 0 % (0-10); EOSINOPHILS # (AUTO) 0.2 10^3/uL (0.0-0.3); EOSINOPHILS % (AUTO) 3 % (0-10); HEMATOCRIT 38 % (35-52); HEMOGLOBIN 11.8 g/dL (11.5-16.0); LYMPHOCYTES # (AUTO) 1.9 10^3/uL (1.0-4.0); LYMPHOCYTES % (AUTO) 24 % (12-44); MEAN CORPUSCULAR HEMOGLOBIN 29 pg (25-34); MEAN CORPUSCULAR HGB CONC 31 g/dL (32-36); MEAN CORPUSCULAR VOLUME 93 fL (80-99); MEAN PLATELET VOLUME 8.9 fL (9.0-12.2); MONOCYTES # (AUTO) 0.7 10^3/uL (0.0-1.0); MONOCYTES % (AUTO) 9 % (0-12); NEUTROPHILS # (AUTO) 4.9 10^3/uL (1.8-7.8); NEUTROPHILS % (AUTO) 64 % (42-75); PLATELET COUNT 282 10^3/uL (130-400); WHITE BLOOD COUNT 7.7 10^3/uL (4.3-11.0)
[2021-03-01 21:46] LABS: ALBUMIN 3.7 GM/DL (3.2-4.5); POTASSIUM 4.1 MMOL/L (3.6-5.0)
--- NOTE | 2021-03-01 21:47 | Diagnostic Imaging Report ---
EXAMINATION: Chest radiograph, portable AP view. DATE: 03/01/2021 9:31 PM INDICATION: 70-year-old female, shortness of breath and cough. COMPARISON: May 13, 2020. FINDINGS: Stable overall appearance of the cardiomediastinal silhouette and redemonstrated cardiomegaly. There is no identified pneumothorax. There is no identified large pleural effusion. There is no identified interval focal airspace consolidation. There are technical limitations for evaluation of the left lung base in particular relating to patient body habitus and soft tissue overlap. IMPRESSION: 1. Redemonstrated cardiomegaly without radiographically apparent interval acute cardiopulmonary abnormality. Dictated by: Dictated on workstation # [id number]
[2021-03-01 21:48] LABS: CALCIUM 9.4 MG/DL (8.5-10.1)
[2021-03-01] MEDS ORDERED: fentaNYL INJ 100 MCG/2 ML AMP ONE (21:48)
[2021-03-01 21:49] LABS: TOTAL PROTEIN 8.1 GM/DL (6.4-8.2)
[2021-03-01 21:50] LABS: BILIRUBIN,TOTAL 0.6 MG/DL (0.1-1.0); ERYTHROCYTE SEDIMENTATION RATE 65 MM/HR (0-30)
[2021-03-01 21:53] LABS: CREATININE SERUM 0.86 MG/DL (0.60-1.30)
[2021-03-01 21:54] LABS: BILIRUBIN,DIRECT 0.3 MG/DL (0.0-0.3); BILIRUBIN,INDIRECT 0.3 MG/DL
--- NOTE | 2021-03-01 22:17 | ED Lower Extremity ---
General Chief Complaint: General Problems/Pain Stated Complaint: L LEG PAIN History of Present Illness Date Seen by Provider: Mar 01, 2021 Time Seen by Provider: 21:25 Initial Comments 70-year-old female presents via EMS for left knee pain. 2.5 months ago, she had hardware removed from right hip hardware and right below-knee amputation and spacer placed after hardware removal from Left TKA. She is on gabapentin for phantom limb pain. She was in a fci until the last 2 weeks and now has returned home where her daughters are taking care of her. She reports her pain has increased in the left knee over the last 3 to 4 days. She tried to call Dr. Perry her orthopedic surgeon at [facility] and has not had follow-up. In addition she usually takes oxycodone for pain and her prescription was not refilled by her PCP today. She is non-ambulatory, on Eliquis for A-fib. She was recently diagnosed with kidney cancer, she is unsure if it was in the right or left kidney. She returns to see oncology at [facility] in the next 2 weeks. Pain/Injury Location: left knee Method of Injury: other (chronic pain left knee) Allergies and Home Medications Allergies Coded Allergies: diphenhydramine (Verified Allergy, Unknown, 05/13/20) Home Medications Albuterol 8.5 Gm Hfa.aer.ad, 2 PUFF IH Q6H PRN, (Reported) NEEDED FOR SHORTNESS OF BREATH Amlodipine Besylate 5 Mg Tablet, 5 MG PO DAILY, (Reported) Atorvastatin 20 Mg Tablet, 20 MG PO HS, (Reported) Azithromycin 250 Mg Tab, 250 MG PO DAILY Prescribed by: DAVID LYON on 03/09/13 1015 Budesonide/Formoterol Fumarate 10.2 Gm Hfa.aer.ad, 2 PUFF IH BID PRN, (Reported) NEEDED FOR BREATHING Cephalexin 500 Mg Tablet, 500 MG PO BID Prescribed by: PAULINE GUPTA on 01/14/20 033 Esomeprazole Mag Trihydrate 40 Mg Capsule.dr, 40 MG PO HS, (Reported) Furosemide 40 Mg Tablet, 40 MG PO DAILY, (Reported) Hydrocodone/Acetaminophen 1 Each Tablet, 1 EACH PO Q6H PRN for PAIN-BREAKTHROUGH Prescribed by: PAULINE GUPTA on 01/14/20 033 Ipratropium [place] 12.9 Gm Aers, 2 PUFF INH QID PRN, (Reported) NEEDED FOR BREATHING Levothyroxine Sodium 150 Mcg Tablet, 150 MCG PO DAILY, (Reported) Lisinopril 40 Mg Tablet, 40 MG PO DAILY, (Reported) Nitrofurantoin Monohyd/M-Cryst 100 Mg Capsule, 1 TAB PO BID Prescribed by: DREA ANDERS on 09/07/20 1117 Potassium Chloride 10 Meq Tablet.sa, 10 MEQ PO HS, (Reported) Prednisone 20 Mg Tab, 20 MG PO DAILY Prescribed by: DAVID YLON on 03/09/13 1015 Sitagliptin Phosphate 100 Mg Tablet, 100 MG PO DAILY, (Reported) Tramadol Hcl 50 Mg Tablet, 50-100 MG PO TID PRN, (Reported) TAKES 1-2 (50MG) TABLETS THREE TIMES DAILY NEEDED FOR PAIN Warfarin Sodium 5 Mg Tablet, 5 MG PO HS, (Reported) Patient Home Medication List Home Medication List Reviewed: Yes Review of Systems Constitutional: no symptoms reported, see HPI Respiratory: see HPI, cough, short of breath (chronic) Cardiovascular: no symptoms reported, see HPI Gastrointestinal: no symptoms reported, see HPI Genitourinary: no symptoms reported, see HPI Musculoskeletal: see HPI, joint pain (left knee) All Other Systems Reviewed Negative Unless Noted: Yes Past Gkvgyyn-Zmrcfs-Uckepc Hx Immunizations Up To Date Tetanus Booster (TDap): Unknown Seasonal Allergies Seasonal Allergies: No Past Medical History Surgeries: Yes (COLON REPAIR, wound vac r hip,) Respiratory: Yes Asthma, Chronic Bronchitis, Sleep Apnea, COPD Cardiac: Yes Hypertension 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 Sexually Transmitted Disease: No Genitourinary: No Gastrointestinal: Yes Gastroesophageal Reflux, Diverticulosis Musculoskeletal: Yes Osteoporosis, Arthritis, Chronic Back Pain Endocrine: Yes Hypothyroidsim, Diabetes, Non-Insulin dep HEENT: Yes Cataract Loss of Vision: Left Hearing Impairment: Hard of Hearing Cancer: No Psychosocial: Yes Anxiety Integumentary: No Blood Disorders: No Family Medical History Reviewed Nursing Family Hx Physical Exam Vital Signs Vital Signs - First Documented 03/01/21 21:25 Temp 37.0 Pulse 101 Resp 20 B/P (MAP) 139/82 (101) Pulse Ox 97 O2 Delivery Nasal Cannula Capillary Refill : Height, Weight, BMI Height: '64.00" Weight: 261lbs. oz. 118.695841mp; 53.00 BMI Method: General Appearance: WD/WN, obese HEENT: PERRL/EOMI, normal ENT inspection, TMs normal, pharynx normal Neck: non-tender, full range of motion, supple, normal inspection Cardiovascular: normal peripheral pulses, irregularly irregular Respiratory: chest non-tender, lungs clear, normal breath sounds Gastrointestinal: normal bowel sounds, non tender, soft, distended Knees: left knee normal inspection, left knee no evidence of injury, left knee bone tenderness (anterior), left knee other (No warmth, erythema, or effusion to the knee) Feet: left foot non-tender, left foot normal inspection, left foot normal range of motion, left foot other (Pedal pulses 2+, Neg Homans on the left) Neurologic/Tendon: normal sensation Neurologic/Psychiatric: no motor/sensory deficits, alert, normal mood/affect, oriented x 3 Skin: normal color, warm/dry Progress/Results/Core Measures Results/Orders Lab Results Laboratory Tests Test 03/01/21 21:15 03/01/21 21:25 Range/Units Influenza Type A (RT-PCR) Not Detected Not Detecte Influenza Type B (RT-PCR) Not Detected Not Detecte SARS-CoV-2 RNA (RT-PCR) Not Detected Not Detecte White Blood Count 7.7 4.3-11.0 10^3/uL Red Blood Count 4.08 3.80-5.11 10^6/uL Hemoglobin 11.8 11.5-16.0 g/dL Hematocrit 38 35-52 % Mean Corpuscular Volume 93 80-99 fL Mean Corpuscular Hemoglobin 29 25-34 pg Mean Corpuscular Hemoglobin Concent 31 L 32-36 g/dL Red Cell Distribution Width 16.2 H 10.0-14.5 % Platelet Count 282 130-400 10^3/uL Mean Platelet Volume 8.9 L 9.0-12.2 fL Immature Granulocyte % (Auto) 1 % Neutrophils (%) (Auto) 64 42-75 % Lymphocytes (%) (Auto) 24 12-44 % Monocytes (%) (Auto) 9 0-12 % Eosinophils (%) (Auto) 3 0-10 % Basophils (%) (Auto) 0 0-10 % Neutrophils # (Auto) 4.9 1.8-7.8 10^3/uL Lymphocytes # (Auto) 1.9 1.0-4.0 10^3/uL Monocytes # (Auto) 0.7 0.0-1.0 10^3/uL Eosinophils # (Auto) 0.2 0.0-0.3 10^3/uL Basophils # (Auto) 0.0 0.0-0.1 10^3/uL Immature Granulocyte # (Auto) 0.0 0.0-0.1 10^3/uL Erythrocyte Sedimentation Rate 65 H 0-30 MM/HR D-Dimer 2.17 H 0.00-0.49 UG/ML Sodium Level 139 135-145 MMOL/L Potassium Level 4.1 3.6-5.0 MMOL/L Chloride Level 100 98-107 MMOL/L Carbon Dioxide Level 30 21-32 MMOL/L Anion Gap 9 5-14 MMOL/L Blood Urea Nitrogen 9 7-18 MG/DL Creatinine 0.86 0.60-1.30 MG/DL Estimat Glomerular Filtration Rate 66 BUN/Creatinine Ratio 10 Glucose Level 213 H 70-105 MG/DL Calcium Level 9.4 8.5-10.1 MG/DL Corrected Calcium 9.6 8.5-10.1 MG/DL Total Bilirubin 0.6 0.1-1.0 MG/DL Direct Bilirubin 0.3 0.0-0.3 MG/DL Indirect Bilirubin 0.3 MG/DL Aspartate Amino Transf (AST/SGOT) 15 5-34 U/L Alanine Aminotransferase (ALT/SGPT) 10 0-55 U/L Alkaline Phosphatase 90 40-136 U/L Lactate Dehydrogenase 264 H 125-220 U/L C-Reactive Protein High Sensitivity 1.95 H 0.00-0.50 MG/DL Total Protein 8.1 6.4-8.2 GM/DL Albumin 3.7 3.2-4.5 GM/DL Procalcitonin 0.03 <0.10 NG/ML My Orders Orders - EMANUEL VASQUEZ Cbc With Automated Diff (03/01/21 21:20) Comprehensive Metabolic Panel (03/01/21 21:20) Fibrin Degradation Products (03/01/21 21:20) Procalcitonin (Pct) (03/01/21 21:20) Hs C Reactive Protein (03/01/21 21:20) Erythrocyte Sedimentation Rate (03/01/21 21:20) LDH (03/01/21 21:20) Liver Panel (03/01/21 21:20) Chest 1 View, Ap/Pa Only (03/01/21 21:20) Covid 19 Inhouse Test (03/01/21 21:20) Influenza A And B By Pcr (03/01/21 21:20) Ua Culture If Indicated (03/01/21 21:23) Ed Iv/Invasive Line Start (03/01/21 21:30) Ns Iv 1000 Ml (Sodium Chloride 0.9%) (03/01/21 21:30) Fentanyl Inj (Sublimaze Injection) (03/01/21 21:48) Knee, Left, 3 Views (03/01/21 22:03) Rx-Oxycodone/Apap 5-325 Mg (Rx-Percocet (03/01/21 23:00) Fentanyl Inj (Sublimaze Injection) (03/01/21 23:15) Medications Given in ED Current Medications Medications Dose Ordered Sig/Jordan Route Start Time Stop Time Status Last Admin Dose Admin Fentanyl Citrate 100 mcg STK-MED ONCE .ROUTE 03/01/21 21:48 03/01/21 21:53 DC 03/01/21 22:00 100 MCG Vital Signs/I&O 03/01/21 21:25 Temp 37.0 Pulse 101 Resp 20 B/P (MAP) 139/82 (101) Pulse Ox 97 O2 Delivery Nasal Cannula Progress Progress Note : Time: 21:25 Progress Note Patient seen and evaluated, she reports a cough for the last few days. She has received the Covid vaccine. We will swab her based on symptoms. She is requ iring approximately 1 L to maintain greater than 95%. Her chief complaint is left knee pain. She reports running out of her oxycodone. She is continuing to use her hydrocodone and gabapentin but her pain is not fully controlled. She has had difficulty in getting in to see her orthopedic surgeon. Her daughters are managing her care at home. She is having home therapy and they are working on using a Monica to remove her from the bed and get her into a wheelchair. She is home bound. Will get chest x-ray, labs and x-ray of the left knee. 2149 Covid negative, chest x-ray shows no acute findings. SaO2 on room air is 92% or higher. Awaiting labs. Will give normal saline 1 L per IV and fentanyl 50 mcg iv 2199 spoke to daughters by phone, they are in the parking lot but recovering from a sinus infection and do not wish to come into the hospital. Updated on patient's status. 2239 patient reports her pain is resolved, she wishes to be discharged to home. Spoke to her daughters, they are unable to transport her as she requires a Monica lift and wheelchair. Spoke to [facility], unable to transport to home. Both to [facility] unable to transport to home. 2299 spoke to tank house operator, will consider other options to return the patient home as she does not meet admission criteria and we are on limited bed status. Spoke to [facility], since she is nonambulatory and technically bed ridden, they can return her back to her home. Patient and her daughters notified. 2314 awaiting [facility]. Patient stable no complaints at this time. Discharge instructions and return precautions reviewed with her. Diagnostic Imaging Diagonstic Imaging: Xray Plain Films/CT/US/NM/MRI: chest Comments NAME: SHMUEL POSADAS [facility] REC#: [id number] PT STATUS: REG ER : 1950 PHYSICIAN: MEANUEL VASQUEZ ADMINISTRATIVE RESIDENT ADMIT DATE: 03/01/21/ER Signed Date of Exam:03/01/21 CHEST 1 VIEW, AP/PA ONLY EXAMINATION: Chest radiograph, portable AP view. DATE: 03/01/2021 9:31 PM INDICATION: 70-year-old female, shortness of breath and cough. COMPARISON: May 13, 2020. FINDINGS: Stable overall appearance of the cardiomediastinal silhouette and redemonstrated cardiomegaly. There is no identified pneumothorax. There is no identified large pleural effusion. There is no identified interval focal airspace consolidation. There are technical limitations for evaluation of the left lung base in particular relating to patient body habitus and soft tissue overlap. IMPRESSION: 1. Redemonstrated cardiomegaly without radiographically apparent interval acute cardiopulmonary abnormality. Dictated by: Dictated on workstation # [id number] Dict: 03/01/212131 Trans: 03/01/212149 [facility] [id number] Interpreted by: JESSY MCCLAIN MD Electronically signed by: JESSY MCCLAIN MD 03/01/21 2652 Diagonstic Imaging: Xray Plain Films/CT/US/NM/MRI: knee Comments Spacer in place to the left knee. Soft tissue shows no inflammatory change or effusion. No fractures or dislocations noted. Will be over read by radiology. 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 Decision time for Depature: 23:00 [address]errals: [facility] [place] Primary Care Physician Patient Instructions: Knee Pain (DC) Add. Discharge Instructions: Continue home medications as prescribed. Alternate heat and ice to the left knee for pain. Follow-up with your primary care provider prior to taking all of your home medications. Contact your orthopedic surgeon at [facility] if symptoms are not improving or worsen. Consider return to termite helper care, if unable to manage transfers, safety issues, pain control and medication at home. Return to the emergency department for new, urgent healthcare needs. All discharge instructions reviewed with patient and/or family. Voiced understanding. Scripts Oxycodone HCl/Acetaminophen (Oxycodone-Acetaminophen 5-325) 1 Each Tablet 1 EACH PO Q6H PRN for PAIN-SEVERE MDD 6, #20 TAB 0 Refills Prov: EMANUEL VASQUEZ 03/01/21 EMANUEL VASQUEZ Mar 01, 2021 22:17
[2021-03-01] MEDS ORDERED: RX-OXYCODONE/APAP 5-325 MG #4 TAB PK PO PRN (23:00)
[2021-03-01] MEDS ORDERED: fentaNYL INJ 100 MCG/2 ML AMP IVP ONE (23:15)
[2021-03-01] MEDS ORDERED: OXYC1TAB11 PO (23:18)
[2021-03-01 23:33] VITALS: BP 110/67
--- NOTE | 2021-03-02 08:08 | Diagnostic Imaging Report ---
INDICATION: Left knee pain. FINDINGS: There are intramedullary rods within the distal femur as well as within the tibia. The patient is likely status post a prior knee arthroplasty which has been removed and replaced with polymethylmethacrylate. Knee alignment is unremarkable. There is no acute fracture. IMPRESSION: Previous removal of the knee arthroplasty with replacement with polymethylmethacrylate. There are rods within the femur and tibia. There is no acute fracture or aggressive bone resorption. Dictated by: Dictated on workstation # [id number]
== END 2021-03-01 23:33 | disposition home or self-care (01) ==
LOC: EDUNIT# 21:02 → ER 21:03
DX: M25.562 Pain in left knee (principal); R26.89 Other abnormalities of gait and mobility; E66.01 Morbid (severe) obesity due to excess calories; E11.9 Type 2 diabetes mellitus without complications; J44.9 Chronic obstructive pulmonary disease, unspecified; I10 Essential (primary) hypertension; K21.9 Gastro-esophageal reflux disease without esophagitis; E03.9 Hypothyroidism, unspecified; G89.29 Other chronic pain; M54.9 Dorsalgia, unspecified; Z68.43 Body mass index [BMI] 50.0-59.9, adult; Z89.611 Acquired absence of right leg above knee; Z79.890 Hormone replacement therapy; Z79.891 Long term (current) use of opiate analgesic; Z79.01 Long term (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
CPT/HCPCS: 36415; 71045; 73562; 80053; 80076; 83615; 84145; 85025; 85379; 85652; 86141; 87636

== ENCOUNTER 2021-03-25 13:17 | Outpatient (RCR) | payer MEDICARE, MEDICAID ==
[~2021-03-25 13:17] MED LIST changes: +OXYC1TAB11 PO
[2021-03-25 13:30] LABS: BASOPHILS % (AUTO) 0 % (0-10); EOSINOPHILS # (AUTO) 0.2 10^3/uL (0.0-0.3); EOSINOPHILS % (AUTO) 2 % (0-10); HEMATOCRIT 41 % (35-52); LYMPHOCYTES # (AUTO) 2.1 10^3/uL (1.0-4.0); LYMPHOCYTES % (AUTO) 24 % (12-44); MEAN CORPUSCULAR HEMOGLOBIN 29 pg (25-34); MEAN CORPUSCULAR HGB CONC 32 g/dL (32-36); MEAN CORPUSCULAR VOLUME 91 fL (80-99); MEAN PLATELET VOLUME 9.2 fL (9.0-12.2); MONOCYTES # (AUTO) 0.6 10^3/uL (0.0-1.0); MONOCYTES % (AUTO) 7 % (0-12); NEUTROPHILS # (AUTO) 5.9 10^3/uL (1.8-7.8); NEUTROPHILS % (AUTO) 67 % (42-75); PLATELET COUNT 316 10^3/uL (130-400); WHITE BLOOD COUNT 8.8 10^3/uL (4.3-11.0)
[2021-03-25 13:50] LABS: ALBUMIN 3.6 GM/DL (3.2-4.5); BILIRUBIN,TOTAL 0.9 MG/DL (0.1-1.0); CALCIUM 9.3 MG/DL (8.5-10.1); CREATININE SERUM 1.01 MG/DL (0.60-1.30); POTASSIUM 3.9 MMOL/L (3.6-5.0); TOTAL PROTEIN 8.1 GM/DL (6.4-8.2)
[2021-03-30] MEDS ORDERED: CEPH500T PO (13:52)
[2021-04-26] MEDS ORDERED: ALBU18HF2 INH (10:14)
[2021-04-26] MEDS ORDERED: SITA100T12 PO (10:14)
[2021-04-26] MEDS ORDERED: INSU100I29 SC (10:14)
[2021-04-26] MEDS ORDERED: OXYC-525 PO (10:14)
[2021-04-26] MEDS ORDERED: MELA5TAB14 PO (10:14)
[2021-04-26] MEDS ORDERED: INSU100I14 SC (10:14)
[2021-04-26] MEDS ORDERED: SEMA1PEN3 INJ (10:14)
[2021-04-26] MEDS ORDERED: SNN187T PO (10:14)
[2021-04-26] MEDS ORDERED: ASCO-262 PO (10:14)
[2021-04-26] MEDS ORDERED: ATOR20TA66 PO (10:14)
[2021-04-26] MEDS ORDERED: POLY17PO6 PO (10:14)
[2021-04-26] MEDS ORDERED: ACET-2267 PO (10:14)
[2021-04-26] MEDS ORDERED: LEVO100T7 PO (10:14)
[2021-04-26] MEDS ORDERED: METO-333 PO (10:14)
[2021-04-26] MEDS ORDERED: CHOL10004 PO (10:14)
[2021-04-26] MEDS ORDERED: APIX5TAB PO (10:14)
[2021-04-26] MEDS ORDERED: GABA300C PO (10:14)
[2021-04-26] MEDS ORDERED: MAGN400T39 PO (10:14)
[2021-04-26] MEDS ORDERED: FURO20TA4 PO (10:14)
[2021-05-03] MEDS ORDERED: FLUT1AER5 IH (09:52)
[2021-05-03] MEDS ORDERED: OXYC-525 PO (09:52)
[2021-05-03] MEDS ORDERED: PANT40TA52 PO (09:52)
[2021-05-03] MEDS ORDERED: METO50TA15 PO (09:52)
== END 2021-05-08 | disposition home or self-care (01) ==
LOC: ONC 13:17
PROVIDERS: ATTEND Internal Medicine Hematology & Oncology
DX: C64.2 Malignant neoplasm of left kidney, except renal pelvis (principal); I11.9 Hypertensive heart disease without heart failure; E11.9 Type 2 diabetes mellitus without complications; E78.00 Pure hypercholesterolemia, unspecified; L02.415 Cutaneous abscess of right lower limb; M86.8X8 Other osteomyelitis, other site; E11.69 Type 2 diabetes mellitus with other specified complication; Z98.890 Other specified postprocedural states
CPT/HCPCS: 80053; 85025; 99213

== ENCOUNTER 2021-03-30 12:32 | Emergency (ER) | payer MEDICARE, MEDICAID ==
--- NOTE | 2021-03-30 13:05 | ED Integumentary General ---
General Chief Complaint: Skin/Wound Problems Stated Complaint: DISCHARGE FROM AMPUTATION Nursing Triage Note: PT TO ED VIA EMS FOR SKIN WOUND ON R LEG AMPUTATION SCAR. PT REPORTS AREA WAS NOTICED JUST THIS MORNING. SMALL AMOUNT OF PURULENT DRAINAGE NOTED. LEG WAS AMPUTATED IN November,. Source: patient Exam Limitations: no limitations, clinical condition History of Present Illness Date Seen by Provider: Mar 30, 2021 Time Seen by Provider: 13:03 Initial Comments To ER by [facility] with reports of a draining wound that she just noticed this morning to the stump of her right leg. She had a right leg amputation just below the hip in November of this year at the [facility] for "infection". This morning she noticed some drainage coming from the bottom of her stump. She denies any new or unusual pain denies fevers or chills. She is scheduled to have a left nephrectomy for left renal cell carcinoma at the [facility] on 04/02/2021. Timing/Duration: this morning Severity: mild Possible Cause: no cause identified Allergies and Home Medications Allergies Coded Allergies: diphenhydramine (Verified Allergy, Unknown, 05/13/20) Home Medications Albuterol 8.5 Gm Hfa.aer.ad, 2 PUFF IH Q6H PRN, (Reported) NEEDED FOR SHORTNESS OF BREATH Amlodipine Besylate 5 Mg Tablet, 5 MG PO DAILY, (Reported) Atorvastatin 20 Mg Tablet, 20 MG PO HS, (Reported) Azithromycin 250 Mg Tab, 250 MG PO DAILY Prescribed by: DAVID LOYN on 03/09/13 1015 Budesonide/Formoterol Fumarate 10.2 Gm Hfa.aer.ad, 2 PUFF IH BID PRN, (Reported) NEEDED FOR BREATHING Cephalexin 500 Mg Tablet, 500 MG PO BID Prescribed by: PAULINE GUPTA on 01/14/20 0334 Esomeprazole Mag Trihydrate 40 Mg Capsule.dr, 40 MG PO HS, (Reported) Furosemide 40 Mg Tablet, 40 MG PO DAILY, (Reported) Hydrocodone/Acetaminophen 1 Each Tablet, 1 EACH PO Q6H PRN for PAIN-BREAKTHROUGH Prescribed by: PAULINE GUPTA on 01/14/20 0334 Ipratropium [place] 12.9 Gm Aers, 2 PUFF INH QID PRN, (Reported) NEEDED FOR BREATHING Levothyroxine Sodium 150 Mcg Tablet, 150 MCG PO DAILY, (Reported) Lisinopril 40 Mg Tablet, 40 MG PO DAILY, (Reported) Nitrofurantoin Monohyd/M-Cryst 100 Mg Capsule, 1 TAB PO BID Prescribed by: DREA ANDERS on 09/07/20 1117 Oxycodone HCl/Acetaminophen 1 Each Tablet, 1 EACH PO Q6H PRN for PAIN-SEVERE Prescribed by: EMANUEL VASQUEZ on 03/01/21 2319 Potassium Chloride 10 Meq Tablet.sa, 10 MEQ PO HS, (Reported) Prednisone 20 Mg Tab, 20 MG PO DAILY Prescribed by: DAVID LYON on 03/09/13 1015 Sitagliptin Phosphate 100 Mg Tablet, 100 MG PO DAILY, (Reported) Tramadol Hcl 50 Mg Tablet, 50-100 MG PO TID PRN, (Reported) TAKES 1-2 (50MG) TABLETS THREE TIMES DAILY NEEDED FOR PAIN Warfarin Sodium 5 Mg Tablet, 5 MG PO HS, (Reported) Patient Home Medication List Home Medication List Reviewed: Yes Review of Systems Review of Systems Constitutional: see HPI EENTM: see HPI Respiratory: no symptoms reported Cardiovascular: no symptoms reported Genitourinary: no symptoms reported Musculoskeletal: no symptoms reported Skin: see HPI Psychiatric/Neurological: No Symptoms Reported Past Iusvycp-Sppqoo-Oynhhk Hx Patient Social History Tobacco Use?: Yes Tobacco type used: Cigarettes Smoking Status: Current Everyday Smoker Substance use?: No Alcohol Use?: No Pt feels they are or have been: No Immunizations Up To Date Tetanus Booster (TDap): Unknown First/Initial COVID19 Vaccinat: 01/28 Second COVID19 Vaccination [place]: 01/28 COVID19 Vaccine Grinding Room Supervisor: YENNIFER Seasonal Allergies Seasonal Allergies: No Past Medical History Surgery/Hospitalization HX: R SIDE ABOVE KNEE AMPUTATION Surgeries: Yes (COLON REPAIR, wound vac r hip,) Respiratory: Yes Asthma, Chronic Bronchitis, Sleep Apnea, COPD Cardiac: Yes Hypertension 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 Sexually Transmitted Disease: No Genitourinary: No Gastrointestinal: Yes Gastroesophageal Reflux, Diverticulosis Musculoskeletal: Yes Osteoporosis, Arthritis, Chronic Back Pain Endocrine: Yes Hypothyroidsim, Diabetes, Non-Insulin dep HEENT: Yes Cataract Loss of Vision: Left Hearing Impairment: Hard of Hearing Cancer: No Psychosocial: Yes Anxiety Integumentary: No Blood Disorders: No Physical Exam Vital Signs Vital Signs - First Documented 03/30/21 12:33 Temp 36.2 Pulse 109 Resp 20 B/P (MAP) 180/101 (127) Pulse Ox 93 O2 Delivery Room Air Capillary Refill : Less Than 3 Seconds General Appearance: WD/WN, no apparent distress HEENT: PERRL/EOMI, normal ENT inspection Neck: non-tender, full range of motion Cardiovascular: regular rate, rhythm, no murmur Respiratory: normal breath sounds, no respiratory distress, no accessory muscle use Neurologic/Psychiatric: alert, normal mood/affect, oriented x 3 Skin: normal color, warm/dry Skin Problem Location: lower extremities (To the most distal aspect of her stump is a small draining wound about 2 to 3 mm wide. When I probed this with a sterile Q-tip it was about 1.5 cm deep. There is no induration or erythema surrounding this and there is no drainage at this time.) Skin Problem Character: other Progress/Results/Core Measures Results/Orders Lab Results Laboratory Tests Test 03/30/21 12:35 Range/Units White Blood Count 8.5 4.3-11.0 10^3/uL Red Blood Count 4.61 3.80-5.11 10^6/uL Hemoglobin 13.5 11.5-16.0 g/dL Hematocrit 43 35-52 % Mean Corpuscular Volume 93 80-99 fL Mean Corpuscular Hemoglobin 29 25-34 pg Mean Corpuscular Hemoglobin Concent 32 32-36 g/dL Red Cell Distribution Width 16.2 H 10.0-14.5 % Platelet Count 276 130-400 10^3/uL Mean Platelet Volume 9.4 9.0-12.2 fL Immature Granulocyte % (Auto) 0 % Neutrophils (%) (Auto) 71 42-75 % Lymphocytes (%) (Auto) 20 12-44 % Monocytes (%) (Auto) 7 0-12 % Eosinophils (%) (Auto) 2 0-10 % Basophils (%) (Auto) 0 0-10 % Neutrophils # (Auto) 6.0 1.8-7.8 10^3/uL Lymphocytes # (Auto) 1.7 1.0-4.0 10^3/uL Monocytes # (Auto) 0.6 0.0-1.0 10^3/uL Eosinophils # (Auto) 0.2 0.0-0.3 10^3/uL Basophils # (Auto) 0.0 0.0-0.1 10^3/uL Immature Granulocyte # (Auto) 0.0 0.0-0.1 10^3/uL Sodium Level 136 135-145 MMOL/L Potassium Level 3.6 3.6-5.0 MMOL/L Chloride Level 98 98-107 MMOL/L Carbon Dioxide Level 27 21-32 MMOL/L Anion Gap 11 5-14 MMOL/L Blood Urea Nitrogen 12 7-18 MG/DL Creatinine 0.80 0.60-1.30 MG/DL Estimat Glomerular Filtration Rate 71 BUN/Creatinine Ratio 15 Glucose Level 237 H 70-105 MG/DL Calcium Level 9.8 8.5-10.1 MG/DL Corrected Calcium 10.1 8.5-10.1 MG/DL Total Bilirubin 0.6 0.1-1.0 MG/DL Aspartate Amino Transf (AST/SGOT) 19 5-34 U/L Alanine Aminotransferase (ALT/SGPT) 18 0-55 U/L Alkaline Phosphatase 78 40-136 U/L C-Reactive Protein High Sensitivity 1.70 H 0.00-0.50 MG/DL Total Protein 8.0 6.4-8.2 GM/DL Albumin 3.6 3.2-4.5 GM/DL My Orders Orders - KHRIS POSADA APRN Cbc With Automated Diff (03/30/21 13:00) Comprehensive Metabolic Panel (03/30/21 13:00) Femur, Right, 2 Views (03/30/21 13:00) Wound Culture (03/30/21 13:00) Hs C Reactive Protein (03/30/21 13:26) Erythrocyte Sedimentation Rate (03/30/21 13:26) Vital Signs/I&O 03/30/21 12:33 Temp 36.2 Pulse 109 Resp 20 B/P (MAP) 180/101 (127) Pulse Ox 93 O2 Delivery Room Air Blood Pressure Mean: 127 Diagnostic Imaging Diagonstic Imaging: Xray Comments NAME: SHMUEL POSADAS MED REC#: [id number] PT STATUS: REG ER : 1950 PHYSICIAN: KHRIS POSADA APRN ADMIT DATE: 03/30/21/ER Draft Date of Exam:03/30/21 FEMUR, RIGHT, 2 VIEWS INDICATION: Spider bite. There has been amputation of the right femur. Multiple surgical clips at the right hemipelvis and acetabulum are noted. This no soft tissue gas identified. Bony structures are unremarkable. IMPRESSION: Amputation of the right hip femur. No soft tissue gas is identified. Dictated on workstation # [id number] Dict: 03/30/21 1319 Trans: 03/30/21 1326 CV [id number] Interpreted by: GARRETT MAYORGA MD Electronically signed by: Departure Impression Primary Impression: Amputation of right lower extremity Additional Impression: wound of right leg stump Disposition: HOME, SELF-CARE Condition: Stable Departure-Patient Inst. Decision time for Depature: 13:51 Referrals: [facility] [place] Primary Care Physician Patient Instructions: Wound Care (DC) Add. Discharge Instructions: 1. Antibiotics as directed. Return ER for any concerns. All discharge instructions reviewed with patient and/or family. Voiced un derstanding. Scripts Cephalexin (Cephalexin) 500 Mg Tablet 500 MG PO TID, #21 TAB Prov: KHRIS POSADA APRN 03/30/21 KHRIS POSADA APRN Mar 30, 2021 13:05
[2021-03-30 13:06] LABS: BASOPHILS % (AUTO) 0 % (0-10); EOSINOPHILS # (AUTO) 0.2 10^3/uL (0.0-0.3); EOSINOPHILS % (AUTO) 2 % (0-10); HEMATOCRIT 43 % (35-52); HEMOGLOBIN 13.5 g/dL (11.5-16.0); LYMPHOCYTES # (AUTO) 1.7 10^3/uL (1.0-4.0); LYMPHOCYTES % (AUTO) 20 % (12-44); MEAN CORPUSCULAR HEMOGLOBIN 29 pg (25-34); MEAN CORPUSCULAR HGB CONC 32 g/dL (32-36); MEAN CORPUSCULAR VOLUME 93 fL (80-99); MEAN PLATELET VOLUME 9.4 fL (9.0-12.2); MONOCYTES # (AUTO) 0.6 10^3/uL (0.0-1.0); MONOCYTES % (AUTO) 7 % (0-12); NEUTROPHILS % (AUTO) 71 % (42-75); PLATELET COUNT 276 10^3/uL (130-400); WHITE BLOOD COUNT 8.5 10^3/uL (4.3-11.0)
[2021-03-30 13:15] LABS: ALBUMIN 3.6 GM/DL (3.2-4.5); POTASSIUM 3.6 MMOL/L (3.6-5.0)
[2021-03-30 13:16] LABS: CALCIUM 9.8 MG/DL (8.5-10.1)
[2021-03-30 13:19] LABS: BILIRUBIN,TOTAL 0.6 MG/DL (0.1-1.0)
[2021-03-30 13:21] LABS: CREATININE SERUM 0.8 MG/DL (0.60-1.30)
--- NOTE | 2021-03-30 13:26 | Diagnostic Imaging Report ---
INDICATION: Spider bite. There has been amputation of the right femur. Multiple surgical clips at the right hemipelvis and acetabulum are noted. This no soft tissue gas identified. Bony structures are unremarkable. IMPRESSION: Amputation of the right hip femur. No soft tissue gas is identified. Dictated by: Dictated on workstation # [id number]
[2021-03-30] MEDS ORDERED: CEPH500T PO (13:52)
[2021-03-30 14:48] VITALS: BP 170/92
== END 2021-03-30 14:53 | disposition home or self-care (01) ==
LOC: EDUNIT# 12:32 → ER 12:34
DX: T87.89 Other complications of amputation stump (principal); J44.9 Chronic obstructive pulmonary disease, unspecified; G47.30 Sleep apnea, unspecified; I10 Essential (primary) hypertension; K21.9 Gastro-esophageal reflux disease without esophagitis; E03.9 Hypothyroidism, unspecified; G89.29 Other chronic pain; M54.9 Dorsalgia, unspecified; E11.9 Type 2 diabetes mellitus without complications; F17.210 Nicotine dependence, cigarettes, uncomplicated; Z89.511 Acquired absence of right leg below knee; Z90.5 Acquired absence of kidney; Z79.01 Long term (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; Z79.890 Hormone replacement therapy; Z79.899 Other long term (current) drug therapy; Z79.891 Long term (current) use of opiate analgesic; Z79.52 Long term (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 systemic steroids
CPT/HCPCS: 36415; 73552; 80053; 85025; 85652; 86141; 87070; 87205; 99283

== ENCOUNTER 2021-04-25 17:44 | Inpatient (IN) | payer MEDICARE, MEDICAID ==
[~2021-04-25] VITALS: Ht 162.5 cm; Wt 126.5 kg
[2021-04-25] MEDS ORDERED: morphine INJ 10 MG/ML 1ML (SYR OR VIAL) IVP STA (17:52)
--- NOTE | 2021-04-25 17:56 | ED Abdominal Pain ---
General Chief Complaint: Abdominal/GI Problems Stated Complaint: ABDOMINAL PAIN Source of Information: Patient, EMS Exam Limitations: No Limitations History of Present Illness Date Seen by Provider: Apr 25, 2021 Time Seen by Provider: 17:54 Initial Comments To ER by [facility] with reports of right lower abdominal pain onset today. She states she is not passing any gas today. She was at the [facility] admitted on 04/23/2021 for a left renal cell carcinoma biopsy- proven. She had a left nephrectomy at that time and was discharged yesterday 04/24/2021. They were unable to wean her off of oxygen so she went home on 3 L per nasal cannula. Other hospital problems included hypoxia secondary to pulmonary edema, morbid obesity, atrial fibrillation acid reflux. She has coronary artery disease COPD and continues to smoke 1 pack/day. Type 2 diabetes. Hyperlipidemia hypertension. She was on Eliquis for stroke prophylaxis and atrial fibrillation but that is being held until 04/30. No fevers. Timing/Duration: 1-2 Days Severity/Quality: Cramping Radiation: No Radiation Activities at Onset: None Allergies and Home Medications Allergies Coded Allergies: diphenhydramine (Verified Allergy, Unknown, 05/13/20) Patient Home Medication List Home Medication List Reviewed: Yes Albuterol (Proair Hfa) 8.5 Gm Hfa.aer.ad, 2 PUFF IH Q6H PRN, (Reported) Entered as Reported by: ABBY ROME on 03/08/13 07 Amlodipine Besylate (Amlodipine Besylate) 5 Mg Tablet, 5 MG PO DAILY, (Reported) Entered as Reported by: ABBY ROME on 03/08/13 07 Atorvastatin (Lipitor Tablet) 20 Mg Tablet, 20 MG PO HS, (Reported) Entered as Reported by: ABBY ROME on 03/08/13 07 Azithromycin (Zithromax Tab) 250 Mg Tab, 250 MG PO DAILY Prescribed by: DAVID LYON on 03/09/13 1015 Budesonide/Formoterol Fumarate (Symbicort Inhaler 160/4.5 Mcg) 10.2 Gm Hfa.aer.ad, 2 PUFF IH BID PRN, (Reported) Entered as Reported by: ABBY ROME on 03/08/13 07 Cephalexin (Cephalexin) 500 Mg Tablet, 500 MG PO BID Prescribed by: PAULINE GUPTA on 01/14/20 033 Cephalexin (Cephalexin) 500 Mg Tablet, 500 MG PO TID Prescribed by: KHRIS POSADA on 03/30/21 1352 Esomeprazole Mag Trihydrate (Nexium) 40 Mg Capsule.dr, 40 MG PO HS, (Reported) Entered as Reported by: ABBY ROME on 03/08/13699 Furosemide (Furosemide) 40 Mg Tablet, 40 MG PO DAILY, (Reported) Entered as Reported by: ABBY ROME on 03/08/13699 Hydrocodone/Acetaminophen (Hydrocodone-Acetamin 5-325 mg) 1 Each Tablet, 1 EACH PO Q6H PRN for PAIN-BREAKTHROUGH Prescribed by: PAULINE GUPTA on 01/14/20 033 Ipratropium [place] (Atrovent Inhaler) 12.9 Gm Aers, 2 PUFF INH QID PRN, (Reported) Entered as Reported by: ABBY ROME on 03/08/13699 Levothyroxine Sodium (Levothyroxine 150 Mcg Tab) 150 Mcg Tablet, 150 MCG PO DAILY, (Reported) Entered as Reported by: ABBY ROME on 03/08/13699 Lisinopril (Prinivil) 40 Mg Tablet, 40 MG PO DAILY, (Reported) Entered as Reported by: ABBY ROME on 03/08/13699 Nitrofurantoin Monohyd/M-Cryst (Macrobid 100 mg Capsule) 100 Mg Capsule, 1 TAB PO BID Prescribed by: DREA ANDERS on 09/07/20 1117 Oxycodone HCl/Acetaminophen (Oxycodone-Acetaminophen 5-325) 1 Each Tablet, 1 EACH PO Q6H PRN for PAIN-SEVERE Prescribed by: EMANUEL VASQUEZ on 03/01/21 2319 Potassium Chloride (Klor-Con 10) 10 Meq Tablet.sa, 10 MEQ PO HS, (Reported) Entered as Reported by: ABBY ROME on 03/08/13699 Prednisone (Prednisone) 20 Mg Tab, 20 MG PO DAILY Prescribed by: DAVID LYON on 03/09/13 1015 Sitagliptin Phosphate (Januvia) 100 Mg Tablet, 100 MG PO DAILY, (Reported) Entered as Reported by: ABBY ROME on 03/08/13 0700 Tramadol Hcl (Tramadol Hcl) 50 Mg Tablet, 50-100 MG PO TID PRN, (Reported) Entered as Reported by: ABBY ROME on 03/08/13 07 Warfarin Sodium (Coumadin) 5 Mg Tablet, 5 MG PO HS, (Reported) Entered as Reported by: ABBY ROME on 03/08/13 0700 Review of Systems Review of Systems Constitutional: see HPI EENTM: No Symptoms Reported Respiratory: No Symptoms Reported Gastrointestinal: See HPI, Abdominal Pain Genitourinary: No Symptoms Reported Musculoskeletal: no symptoms reported Skin: no symptoms reported Psychiatric/Neurological: No Symptoms Reported Endocrine: No Symptoms Reported Hematologic/Lymphatic: No Symptoms Reported Past Scvnkss-Thckwm-Mauhya Hx Patient Social History Tobacco Use?: No Use of E-Cig and/or Vaping dev: No Substance use?: No Alcohol Use?: No Pt feels they are or have been: No Immunizations Up To Date Tetanus Booster (TDap): Unknown First/Initial COVID19 Vaccinat: 01/28 Second COVID19 Vaccination [place]: 01/28 Seasonal Allergies Seasonal Allergies: No Past Medical History Surgery/Hospitalization HX: R SIDE ABOVE KNEE AMPUTATION Surgeries: Yes (COLON REPAIR, wound vac r hip,) Respiratory: Yes Asthma, Chronic Bronchitis, Sleep Apnea, COPD Cardiac: Yes Hypertension Neurological: No 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 oz. 118.346173fl; 101.00 BMI Method: General Appearance: WD/WN, obese, other (Chronically ill and unwell appearing.) HEENT: PERRL/EOMI, normal ENT inspection Neck: non-tender, full range of motion Respiratory: no respiratory distress, no accessory muscle use, other (Rhonchi and wheezing throughout) Gastrointestinal: normal bowel sounds, soft, distended, tenderness Extremities: normal range of motion (Has had a right leg amputation below the hip.) Neurologic/Psychiatric: alert, normal mood/affect, oriented x 3 Skin: normal color, warm/dry Focused Exam Lactate Level 04/25/21 17:55: Lactic Acid Level 0.80 Lactic Acid Level Laboratory Tests Test 04/25/21 17:55 Lactic Acid Level 0.80 MMOL/L (0.50-2.00) Progress/Results/Core Measures Results/Orders Lab Results Laboratory Tests Test 04/25/21 17:55 04/25/21 18:45 Range/Units White Blood Count 10.5 4.3-11.0 10^3/uL Red Blood Count 4.19 3.80-5.11 10^6/uL Hemoglobin 12.4 11.5-16.0 g/dL Hematocrit 40 35-52 % Mean Corpuscular Volume 95 80-99 fL Mean Corpuscular Hemoglobin 30 25-34 pg Mean Corpuscular Hemoglobin Concent 31 L 32-36 g/dL Red Cell Distribution Width 16.0 H 10.0-14.5 % Platelet Count 247 130-400 10^3/uL Mean Platelet Volume 9.3 9.0-12.2 fL Immature Granulocyte % (Auto) 0 % Neutrophils (%) (Auto) 77 H 42-75 % Lymphocytes (%) (Auto) 12 12-44 % Monocytes (%) (Auto) 8 0-12 % Eosinophils (%) (Auto) 4 0-10 % Basophils (%) (Auto) 0 0-10 % Neutrophils # (Auto) 8.0 H 1.8-7.8 10^3/uL Lymphocytes # (Auto) 1.2 1.0-4.0 10^3/uL Monocytes # (Auto) 0.8 0.0-1.0 10^3/uL Eosinophils # (Auto) 0.4 H 0.0-0.3 10^3/uL Basophils # (Auto) 0.0 0.0-0.1 10^3/uL Immature Granulocyte # (Auto) 0.0 0.0-0.1 10^3/uL Prothrombin Time 13.7 12.2-14.7 SEC INR Comment 1.0 0.8-1.4 Activated Partial Thromboplast Time 38 H 24-35 SEC Sodium Level 132 L 135-145 MMOL/L Potassium Level 4.4 3.6-5.0 MMOL/L Chloride Level 94 L 98-107 MMOL/L Carbon Dioxide Level 32 21-32 MMOL/L Anion Gap 6 5-14 MMOL/L Blood Urea Nitrogen 16 7-18 MG/DL Creatinine 1.28 0.60-1.30 MG/DL Estimat Glomerular Filtration Rate 41 BUN/Creatinine Ratio 13 Glucose Level 188 H 70-105 MG/DL Lactic Acid Level 0.80 0.50-2.00 MMOL/L Calcium Level 9.6 8.5-10.1 MG/DL Corrected Calcium 10.2 H 8.5-10.1 MG/DL Total Bilirubin 0.7 0.1-1.0 MG/DL Aspartate Amino Transf (AST/SGOT) 22 5-34 U/L Alanine Aminotransferase (ALT/SGPT) 8 0-55 U/L Alkaline Phosphatase 72 40-136 U/L B-Type Natriuretic Peptide 121.4 H <100.0 PG/ML Total Protein 7.3 6.4-8.2 GM/DL Albumin 3.3 3.2-4.5 GM/DL Procalcitonin 0.11 H <0.10 NG/ML Urine Color YELLOW Urine Clarity CLEAR Urine pH 6.0 5-9 Urine Specific [place] 1.015 L 1.016-1.022 Urine Protein TRACE H NEGATIVE Urine Glucose (UA) NEGATIVE NEGATIVE Urine Ketones NEGATIVE NEGATIVE Urine Nitrite NEGATIVE NEGATIVE Urine Bilirubin NEGATIVE NEGATIVE Urine Urobilinogen 0.2 < = 1.0 MG/DL Urine Leukocyte Esterase NEGATIVE NEGATIVE Urine RBC (Auto) TRACE-I NEGATIVE Urine RBC 2-5 H /HPF Urine WBC NONE /HPF Urine Crystals PRESENT H /LPF Urine Amorphous Sediment MOD HYACINTH URATES H /LPF Urine Bacteria TRACE /HPF Urine Casts NONE /LPF Urine Mucus NEGATIVE /LPF Urine Culture Indicated NO My Orders Orders - KHRIS POSADA [employer]IDEO [employer] EDITOR Cbc With Automated Diff (04/25/21 17:52) Comprehensive Metabolic Panel (04/25/21 17:52) Blood Culture (04/25/21 17:52) Sputum Culture (04/25/21 17:52) Urinalysis (04/25/21 17:52) Urine Culture (04/25/21 17:52) Protime With Inr (04/25/21 17:52) Partial Thromboplastin Time (04/25/21 17:52) Chest 1 View, Ap/Pa Only (04/25/21 17:52) Ed Iv/Invasive Line Start (04/25/21 17:52) Ed Iv/Invasive Line Start (04/25/21 17:52) Vital Signs Adult Sepsis Patie Q15M (04/25/21 17:52) O2 (04/25/21 17:52) Remove Rings In Anticipation O (04/25/21 17:52) Lactic Acid Analyzer (04/25/21 17:52) BNP (04/25/21 17:52) Procalcitonin (Pct) (04/25/21 17:52) Ct Abdomen/Pelvis Wo (04/25/21 17:52) Morphine Injection (Morphine Injection (04/25/21 17:52) Benzocaine Extension Tube (Hurricaine Ex (04/25/21 18:45) Benzocaine Extension Tube (Hurricaine Ex (04/25/21 18:35) Metoprolol Tartrate Injection (Lopressor (04/25/21 18:45) Medications Given in ED Current Medications Medications Dose Ordered Sig/Jordan Route Start Time Stop Time Status Last Admin Dose Admin Benzocaine 1 ea ONCE ONCE XX 04/25/21 18:45 04/25/21 18:46 DC 04/25/21 18:54 1 EA Metoprolol Tartrate 5 mg ONCE ONCE IV 04/25/21 18:45 04/25/21 18:46 DC 04/25/21 18:58 5 MG Vital Signs/I&O 04/25/21 04/25/21 17:44 17:44 Temp 36.3 Pulse 111 Resp 22 B/P (MAP) 168/101 (123) Pulse Ox 92 O2 Delivery Nasal Cannula Nasal Cannula O2 Flow Rate 3.00 3.00 Departure Communication (Admissions) Family Conversation 1857-Patient lives at home alone, daughter is in [place]. Given her significant pain despite pain medication at home she would fare better in the hospital overnight given her comorbidities of diabetes and COPD with oxygen dependence until we can achieve pain control. We did temporarily placed n asogastric tube for gastric decompression done here in the emergency room. This was removed after gastric decompression. 1926-spoke with Dr. Gandhi from urology services on-call at [facility]. He has reviewed the CT images that I have sent up there via the cloud. He has no additional concerns. Most of the reason for admission tonight is achieving pain control in her which will be a bit tedious given her higher possibility of developing hypercarbia secondary to her COPD and her oxygen dependence without anybody at home that can observe her and help care for her. May need prison home placement. NAME: SHMUEL POSADAS [facility] REC#: [id number] PT STATUS: REG ER : 1950 PHYSICIAN: KHRIS POSADA APRN ADMIT DATE: 04/25/21/ER Draft Date of Exam:04/25/21 CT ABDOMEN/PELVIS WO PROCEDURE: CT abdomen and pelvis without contrast. TECHNIQUE: Multiple contiguous axial images were obtained through the abdomen and pelvis without the use of intravenous contrast. Auto Exposure Controls were utilized during the CT exam to meet ALARA standards for radiation dose reduction. INDICATION: Abdominal pain, nausea and vomiting. Left nephrectomy on 04/23/2021. COMPARISON: CT of the pelvis from 05/13/2020. FINDINGS: There is airspace consolidation in the right lower lobe. Groundglass opacities are seen in the right middle lobe. There is mild atelectasis in the left lung base. The heart is mildly enlarged. The liver demonstrates no focal lesion. Cholecystectomy clips are noted. The spleen appears normal. The pancreas is normal. The adrenal glands appear normal. The right kidney has a hypodense 3.8 cm lesion which is most consistent with a cyst. The left kidney has been removed. There are multiple foci of air in the retroperitoneum. There is a small amount of fluid or blood products in the left retroperitoneum. There is a small amount of intraperitoneal free air as well. There is moderate soft tissue gas in the anterior left abdomen subcutaneous fat. There are gas-filled loops of large and small bowel. The colon, in particular, appears somewhat distended, may be due to ileus. There is diverticulosis of the distal colon without diverticulitis seen. There are small ventral hernias which appear to contain small knuckles of bowel. No free fluid is seen in the abdomen. There is a circumscribed hyperdense subcutaneous fluid collection in the anterior right abdomen measuring 7.9 x 3.4 cm in size. There are postsurgical changes from prior resection of the right femur with surrounding scarring. IMPRESSION: 1. Postsurgical changes from left nephrectomy. There is retroperitoneal and intraperitoneal free air, as well as significant anterior subcutaneous air. This is likely from the recent nephrectomy, please confirm transperitoneal approach. 2. Mild gaseous distention of bowel, particularly the large bowel, may be due to ileus. 3. Airspace consolidation and groundglass opacities in the right lung base, may represent infection in the appropriate clinical setting. 4. Hyperdense fluid collection in the anterior subcutaneous fat, likely a hematoma. 5. Multiple small ventral hernias containing knuckles of bowel. No definite obstruction is seen. Findings discussed with KHRIS POSADA by Dr. Buenrostro, on 04/25/2021 6:51 PM. Dictated on workstation # [id number] Dict: 04/25/21 1836 Trans: 04/25/21 1854 [facility] [id number] Interpreted by: SD BUENROSTRO MD Electronically signed by: Impression Primary Impression: Ileus Additional Impression: Postoperative pain Disposition: ADMITTED INPATIENT Condition: Stable Admissions Decision to Admit Reason: Admit from ER (General) Decision to Admit/Date: Apr 25, 2021 Time/Decision to Admit Time: 18:57 Departure-Patient Inst. Referrals: [facility] (PCP/Family) Primary Care Physician KHRIS POSADA APRN Apr 25, 2021 17:56
[2021-04-25 18:05] LABS: BASOPHILS % (AUTO) 0 % (0-10); EOSINOPHILS # (AUTO) 0.4 10^3/uL (0.0-0.3); EOSINOPHILS % (AUTO) 4 % (0-10); HEMATOCRIT 40 % (35-52); HEMOGLOBIN 12.4 g/dL (11.5-16.0); LYMPHOCYTES # (AUTO) 1.2 10^3/uL (1.0-4.0); LYMPHOCYTES % (AUTO) 12 % (12-44); MEAN CORPUSCULAR HEMOGLOBIN 30 pg (25-34); MEAN CORPUSCULAR HGB CONC 31 g/dL (32-36); MEAN CORPUSCULAR VOLUME 95 fL (80-99); MEAN PLATELET VOLUME 9.3 fL (9.0-12.2); MONOCYTES # (AUTO) 0.8 10^3/uL (0.0-1.0); MONOCYTES % (AUTO) 8 % (0-12); NEUTROPHILS % (AUTO) 77 % (42-75); PLATELET COUNT 247 10^3/uL (130-400); WHITE BLOOD COUNT 10.5 10^3/uL (4.3-11.0)
[2021-04-25 18:20] LABS: PROTHROMBIN TIME PATIENT 13.7 SEC (12.2-14.7)
[2021-04-25 18:21] LABS: ALBUMIN 3.3 GM/DL (3.2-4.5); POTASSIUM 4.4 MMOL/L (3.6-5.0)
[2021-04-25 18:22] LABS: CALCIUM 9.6 MG/DL (8.5-10.1)
[2021-04-25 18:23] LABS: TOTAL PROTEIN 7.3 GM/DL (6.4-8.2)
[2021-04-25 18:25] LABS: BILIRUBIN,TOTAL 0.7 MG/DL (0.1-1.0)
[2021-04-25 18:27] LABS: CREATININE SERUM 1.28 MG/DL (0.60-1.30)
[2021-04-25] MEDS ORDERED: HURRICAINE EXT TUBE (BENZOCAINE) ONE (18:35)
--- NOTE | 2021-04-25 18:37 | Diagnostic Imaging Report ---
HISTORY: Sepsis. COMPARISON: 03/01/2021. TECHNIQUE: Frontal view of the chest. FINDINGS: There is new airspace opacity at the right lung base. There is mild cardiomegaly with central vascular congestion which appears similar to the prior exam. No significant pleural effusion or pneumothorax is seen. IMPRESSION: 1. New right basilar airspace opacity, may represent atelectasis or infection. 2. Stable cardiomegaly with central vascular congestion. Dictated by: Dictated on workstation # [id number]
[2021-04-25] MEDS ORDERED: meTOprolol 5 MG/5 ML (LOPRESSOR) VIAL IV ONE (18:45)
[2021-04-25] MEDS ORDERED: HURRICAINE EXT TUBE (BENZOCAINE) XX ONE (18:45)
--- NOTE | 2021-04-25 18:54 | Diagnostic Imaging Report ---
PROCEDURE: CT abdomen and pelvis without contrast. TECHNIQUE: Multiple contiguous axial images were obtained through the abdomen and pelvis without the use of intravenous contrast. Auto Exposure Controls were utilized during the CT exam to meet ALARA standards for radiation dose reduction. INDICATION: Abdominal pain, nausea and vomiting. Left nephrectomy on 04/23/2021. COMPARISON: CT of the pelvis from 05/13/2020. FINDINGS: There is airspace consolidation in the right lower lobe. Groundglass opacities are seen in the right middle lobe. There is mild atelectasis in the left lung base. The heart is mildly enlarged. The liver demonstrates no focal lesion. Cholecystectomy clips are noted. The spleen appears normal. The pancreas is normal. The adrenal glands appear normal. The right kidney has a hypodense 3.8 cm lesion which is most consistent with a cyst. The left kidney has been removed. There are multiple foci of air in the retroperitoneum. There is a small amount of fluid or blood products in the left retroperitoneum. There is a small amount of intraperitoneal free air as well. There is moderate soft tissue gas in the anterior left abdomen subcutaneous fat. There are gas-filled loops of large and small bowel. The colon, in particular, appears somewhat distended, may be due to ileus. There is diverticulosis of the distal colon without diverticulitis seen. There are small ventral hernias which appear to contain small knuckles of bowel. No free fluid is seen in the abdomen. There is a circumscribed hyperdense subcutaneous fluid collection in the anterior right abdomen measuring 7.9 x 3.4 cm in size. There are postsurgical changes from prior resection of the right femur with surrounding scarring. IMPRESSION: 1. Postsurgical changes from left nephrectomy. There is retroperitoneal and intraperitoneal free air, as well as significant anterior subcutaneous air. This is likely from the recent nephrectomy, please confirm transperitoneal approach. 2. Mild gaseous distention of bowel, particularly the large bowel, may be due to ileus. 3. Airspace consolidation and groundglass opacities in the right lung base, may represent infection in the appropriate clinical setting. 4. Hyperdense fluid collection in the anterior subcutaneous fat, likely a hematoma. 5. Multiple small ventral hernias containing knuckles of bowel. No definite obstruction is seen. Findings discussed with KHRIS POSADA by Dr. Sherwood, on 04/25/2021 6:51 PM. Dictated by: Dictated on workstation # [id number]
[2021-04-25] MEDS ORDERED: fentaNYL INJ 100 MCG/2 ML AMP ONE (18:55)
[2021-04-25 18:58] LABS: BILIRUBIN,URINE NEGATIVE (NEGATIVE); CLARITY,URINE CLEAR; COLOR,URINE YELLOW; GLUCOSE, URINE (UA) NEGATIVE (NEGATIVE); KETONES,URINE NEGATIVE (NEGATIVE); LEUKOCYTE ESTERASE ,URINE NEGATIVE (NEGATIVE); NITRITE,URINE NEGATIVE (NEGATIVE); PROTEIN,URINE TRACE (NEGATIVE)
[2021-04-25] MEDS ORDERED: fentaNYL INJ 100 MCG/2 ML AMP IVP ONE (19:00)
[2021-04-25 19:18] LABS: AMORPHOUS SEDIMENT,UR MOD AMOR URATES /LPF; BACTERIA,URINE TRACE /HPF
[2021-04-25] MEDS ORDERED: RT-ALBUTEROL/IPRATROPIUM 3 ML (DUONEB) VIAL INH ONE (19:30)
[2021-04-25] MEDS ORDERED: HYDROmorphone 2 MG/ML VIAL (DILAUDID) IV ONE ×2 (20:00→20:45)
[2021-04-25 21:30] VITALS: BP 117/70
[2021-04-25] MEDS ORDERED: RT-ALBUTEROL/IPRATROPIUM 3 ML (DUONEB) VIAL ONE (22:11)
[2021-04-25] MEDS ORDERED: LACTATED RINGERS 1,000 ML IV ONE (22:24)
[2021-04-25] MEDS: LACTATED RINGERS 1,000 ML IV SCH (22:26)
[2021-04-25 22:31] VITALS: BP 117/70
[2021-04-25] MEDS ORDERED: RT-ALBUTEROL/IPRATROPIUM 3 ML (DUONEB) VIAL INH PRN (22:45)
[2021-04-25] MEDS ORDERED: NALOXONE 0.4 MG/ML 1 ML (NARCAN) VIAL IV PRN (23:15)
[2021-04-25] MEDS ORDERED: ONDANSETRON 4 MG/2 ML (SDV) Z0FRAN IV PRN (23:15)
[2021-04-26] VITALS (7 sets, daily range): BP systolic 106–136; BP diastolic 75–97
[2021-04-26] MEDS: oxyCODONE/APAP 7.5-325 MG (PERCOCET 7.5) TABLET PO SCH ×5 (00:06→23:09)
[2021-04-26] MEDS: fentaNYL INJ 100 MCG/2 ML AMP IV PRN ×4 (01:07→17:26)
[2021-04-26] MEDS: RT-ALBUTEROL/IPRATROPIUM 3 ML (DUONEB) VIAL INH SCH ×6 (02:45→22:29)
[2021-04-26 04:50] LABS: BASOPHILS % (AUTO) 0 % (0-10); EOSINOPHILS # (AUTO) 0.2 10^3/uL (0.0-0.3); EOSINOPHILS % (AUTO) 2 % (0-10); HEMATOCRIT 41 % (35-52); HEMOGLOBIN 12.4 g/dL (11.5-16.0); LYMPHOCYTES # (AUTO) 1.2 10^3/uL (1.0-4.0); LYMPHOCYTES % (AUTO) 10 % (12-44); MEAN CORPUSCULAR HEMOGLOBIN 29 pg (25-34); MEAN CORPUSCULAR HGB CONC 30 g/dL (32-36); MEAN CORPUSCULAR VOLUME 96 fL (80-99); MEAN PLATELET VOLUME 9.5 fL (9.0-12.2); MONOCYTES # (AUTO) 0.8 10^3/uL (0.0-1.0); MONOCYTES % (AUTO) 7 % (0-12); NEUTROPHILS # (AUTO) 9.7 10^3/uL (1.8-7.8); NEUTROPHILS % (AUTO) 81 % (42-75); PLATELET COUNT 226 10^3/uL (130-400)
[2021-04-26 05:03] LABS: POTASSIUM 4.5 MMOL/L (3.6-5.0)
[2021-04-26 05:04] LABS: CALCIUM 9.8 MG/DL (8.5-10.1)
[2021-04-26 05:08] LABS: CREATININE SERUM 1.28 MG/DL (0.60-1.30)
[2021-04-26] MEDS: inSUlin ASPART (NovoLOG) 1 UNIT/0.01 ML (CHARGE PER UNIT) SC SCH ×4 (05:18→20:56)
--- NOTE | 2021-04-26 07:54 | Consultation - Surgery ---
ASHLY TRUONG MED STUDENT 04/26/21 0754: History of Present Illness History of Present Illness Patient Consulted On(sheri/time) 04/26/21 07:53 Date Seen by Provider: Apr 26, 2021 Time Seen by Provider: 07:55 History of Present Illness surgery consult for: ileus/post op HPI per ED: To ER by [facility] with reports of right lower abdominal pain onset today. She states she is not passing any gas today. She was at the [facility] admitted on 04/23/2021 for a left renal cell carcinoma biopsy- proven. She had a left nephrectomy at that time and was discharged yesterday 04/24/2021. They were unable to wean her off of oxygen so she went home on 3 L per nasal cannula. Other hospital problems included hypoxia secondary to pulmonary edema, morbid obesity, atrial fibrillation acid reflux. She has coronary artery disease COPD and continues to smoke 1 pack/day. Type 2 di abetes. Hyperlipidemia hypertension. She was on Eliquis for stroke prophylaxis and atrial fibrillation but that is being held until 04/30. No fevers. Today: She complains of shortness of breath and hasn't passed gas or had a BM since thursday. She states she had surgery thursday to remove her L kidney. She states she is nonambulatory. Allergies and Home Medications Allergies Coded Allergies: diphenhydramine (Verified Allergy, Unknown, 05/13/20) Patient Home Medication List Albuterol (Proair Hfa) 8.5 Gm Hfa.aer.ad, 2 PUFF IH Q6H PRN, (Reported) Entered as Reported by: ABBY ROME on 03/08/13 07 Amlodipine Besylate (Amlodipine Besylate) 5 Mg Tablet, 5 MG PO DAILY, (Reported) Entered as Reported by: ABBY ROME on 03/08/13 07 Atorvastatin (Lipitor Tablet) 20 Mg Tablet, 20 MG PO HS, (Reported) Entered as Reported by: ABBY ROME on 03/08/13 07 Azithromycin (Zithromax Tab) 250 Mg Tab, 250 MG PO DAILY Prescribed by: DAVID LYON on 03/09/13 1015 Budesonide/Formoterol Fumarate (Symbicort Inhaler 160/4.5 Mcg) 10.2 Gm Hfa.aer.ad, 2 PUFF IH BID PRN, (Reported) Entered as Reported by: ABBY ROME on 03/08/13699 Cephalexin (Cephalexin) 500 Mg Tablet, 500 MG PO BID Prescribed by: PAULINE GUPTA on 01/14/20 033 Cephalexin (Cephalexin) 500 Mg Tablet, 500 MG PO TID Prescribed by: KHRIS POSADA on 03/30/21 1352 Esomeprazole Mag Trihydrate (Nexium) 40 Mg Capsule.dr, 40 MG PO HS, (Reported) Entered as Reported by: ABBY ROME on 03/08/13699 Furosemide (Furosemide) 40 Mg Tablet, 40 MG PO DAILY, (Reported) Entered as Reported by: ABBY ROME on 03/08/13699 Hydrocodone/Acetaminophen (Hydrocodone-Acetamin 5-325 mg) 1 Each Tablet, 1 EACH PO Q6H PRN for PAIN-BREAKTHROUGH Prescribed by: PAULINE GUPTA on 01/14/20 033 Ipratropium Anderson (Atrovent Inhaler) 12.9 Gm Aers, 2 PUFF INH QID PRN, (Reported) Entered as Reported by: ABBY ROME on 03/08/13699 Levothyroxine Sodium (Levothyroxine 150 Mcg Tab) 150 Mcg Tablet, 150 MCG PO DAILY, (Reported) Entered as Reported by: ABBY ROME on 03/08/13699 Lisinopril (Prinivil) 40 Mg Tablet, 40 MG PO DAILY, (Reported) Entered as Reported by: ABBY ROME on 03/08/13699 Nitrofurantoin Monohyd/M-Cryst (Macrobid 100 mg Capsule) 100 Mg Capsule, 1 TAB PO BID Prescribed by: DREA ANDERS on 09/07/20 1117 Oxycodone HCl/Acetaminophen (Oxycodone-Acetaminophen 5-325) 1 Each Tablet, 1 EACH PO Q6H PRN for PAIN-SEVERE Prescribed by: EMANUEL VASQUEZ on 03/01/21 2319 Potassium Chloride (Klor-Con 10) 10 Meq Tablet.sa, 10 MEQ PO HS, (Reported) Entered as Reported by: ABBY ROME on 03/08/13699 Prednisone (Prednisone) 20 Mg Tab, 20 MG PO DAILY Prescribed by: DAVID LYON on 03/09/13 1015 Sitagliptin Phosphate (Januvia) 100 Mg Tablet, 100 MG PO DAILY, (Reported) Entered as Reported by: ABBY ROME on 03/08/13 0700 Tramadol Hcl (Tramadol Hcl) 50 Mg Tablet, 50-100 MG PO TID PRN, (Reported) Entered as Reported by: ABBY ROME on 03/08/13 0706 Warfarin Sodium (Coumadin) 5 Mg Tablet, 5 MG PO HS, (Reported) Entered as Reported by: ABBY ROME on 03/08/13 0700 Past Bcsyufz-Jsovbs-Zbuhug Hx Patient Social History Smoking Status: Current Everyday Smoker Former Smoker, Quit: Jan 24, 2020 Type Used: Cigarettes 2nd Hand Smoke Exposure: Yes Recent Hopitalizations: No Alcohol Use?: No Have you traveled recently?: No Immunizations Up To Date Tetanus Booster (TDap): Unknown Date of Pneumonia Vaccine: Mar 09, 2013 Seasonal Allergies Seasonal Allergies: No Surgeries History of Surgeries: Yes (COLON REPAIR, wound vac r hip,) Respiratory History of Respiratory Disorde: Yes Respiratory Disorders: Asthma, Chronic Bronchitis, Sleep Apnea, COPD Cardiovascular History of Cardiac Disorders: Yes Cardiac Disorders: Hypertension Neurological History of Neurological Disord: No Reproductive System Sexually Transmitted Disease: No [employer] History: Hysterectomy Genitourinary History of Genitourinary Disor: No Gastrointestinal History of Gastrointestinal Di: Yes Gastrointestinal Disorders: Gastroesophageal Reflux, Diverticulosis Musculoskeletal History of Musculoskeletal Dis: Yes Musculoskeletal Disorders: Osteoporosis, Arthritis, Chronic Back Pain Endocrine History of Endocrine Disorders: Yes Endocrine Disorders: Hypothyroidsim, Diabetes, Non-Insulin dep HEENT History of HEENT Disorders: Yes HEENT Disorders: Cataract Loss of Vision: Left Hearing Impairment: Hard of Hearing Cancer History of Cancer: No Psychosocial History of Psychiatric Problem: Yes Behavioral Health Disorders: Anxiety Integumentary History of Skin or Integumenta: No Blood Transfusions History of Blood Disorders: No Physical Exam-General Problems Physical Exam Vital Signs Vital Signs - First Documented 04/25/21 21:30 FiO2 60 Capillary Refill : Less Than 3 Seconds Data Review Labs Laboratory Tests 04/25/21 17:55: White Blood Count 10.5, Red Blood Count 4.19, Hemoglobin 12.4, Hematocrit 40, Mean Corpuscular Volume 95, Mean Corpuscular Hemoglobin 30, Mean Corpuscular Hemoglobin Concent 31L, Red Cell Distribution Width 16.0H, Platelet Count 247, Mean Platelet Volume 9.3, Immature Granulocyte % (Auto) 0, Neutrophils (%) (Auto) 77H, Lymphocytes (%) (Auto) 12, Monocytes (%) (Auto) 8, Eosinophils (%) (Auto) 4, Basophils (%) (Auto) 0, Neutrophils # (Auto) 8.0H, Lymphocytes # (Auto) 1.2, Monocytes # (Auto) 0.8, Eosinophils # (Auto) 0.4H, Basophils # (Auto) 0.0, Immature Granulocyte # (Auto) 0.0, Prothrombin Time 13.7, INR Comment 1.0, Activated Partial Thromboplast Time 38H, Sodium Level 132L, Potassium Level 4.4, Chloride Level 94L, Carbon Dioxide Level 32, Anion Gap 6, Blood Urea Nitrogen 16, Creatinine 1.28, Estimat Glomerular Filtration Rate 41, BUN/Creatinine Ratio 13, Glucose Level 188H, Lactic Acid Level 0.80, Calcium Level 9.6, Corrected Calcium 10.2H, Total Bilirubin 0.7, Aspartate Amino Transf (AST/SGOT) 22, Alanine Aminotransferase (ALT/SGPT) 8, Alkaline Phosphatase 72, B-Type Natriuretic Peptide 121.4H, Total Protein 7.3, Albumin 3.3, Procalcitonin 0.11H 04/25/21 18:45: Urine Color YELLOW, Urine Clarity CLEAR, Urine pH 6.0, Urine Specific [place] 1.015L, Urine Protein TRACEH, Urine Glucose (UA) NEGATIVE, Urine Ketones NEGATIVE, Urine Nitrite NEGATIVE, Urine Bilirubin NEGATIVE, Urine Urobilinogen 0.2, Urine Leukocyte Esterase NEGATIVE, Urine RBC (Auto) TRACE-I, Urine RBC 2-5H , Urine WBC NONE, Urine Crystals PRESENTH, Urine Amorphous Sediment MOD HYACINTH URATESH, Urine Bacteria TRACE, Urine Casts NONE, Urine Mucus NEGATIVE, Urine Culture Indicated NO 04/26/21 04:38: White Blood Count 12.0H, Red Blood Count 4.25, Hemoglobin 12.4, Hematocrit 41, Mean Corpuscular Volume 96, Mean Corpuscular Hemoglobin 29, Mean Corpuscular Hemoglobin Concent 30L, Red Cell Distribution Width 15.9H, Platelet Count 226, Mean Platelet Volume 9.5, Immature Granulocyte % (Auto) 0, Neutrophils (%) (Auto) 81H, Lymphocytes (%) (Auto) 10L, Monocytes (%) (Auto) 7, Eosinophils (%) (Auto) 2, Basophils (%) (Auto) 0, Neutrophils # (Auto) 9.7H, Lymphocytes # (Auto) 1.2, Monocytes # (Auto) 0.8, Eosinophils # (Auto) 0.2, Basophils # (Auto) 0.0, Immature Granulocyte # (Auto) 0.1, Sodium Level 134L, Potassium Level 4.5, Chloride Level 96L, Carbon Dioxide Level 29, Anion Gap 9, Blood Urea Nitrogen 15, Creatinine 1.28, Estimat Glomerular Filtration Rate 41, BUN/Creatinine Ratio 12, Glucose Level 183H, Calcium Level 9.8 04/26/21 04:40: Glucometer 182H ELMIRA RIZO DO 04/26/21 1009: History of Present Illness History of Present Illness Time Seen by Provider: 09:06 History of Present Illness Pt seen in mild distress because of pain and trouble breathing. She states her abdomen is distended and it hurts, plus it makes it hard to breath. All of this started yesterday. Allergies and Home Medications Allergies Coded Allergies: diphenhydramine (Verified Allergy, Unknown, 05/13/20) Patient Home Medication List Home Medication List Reviewed: Yes Albuterol (Proair Hfa) 8.5 Gm Hfa.aer.ad, 2 PUFF IH Q6H PRN, (Reported) Entered as Reported by: ABBY ROME on 03/08/13 0700 Amlodipine Besylate (Amlodipine Besylate) 5 Mg Tablet, 5 MG PO DAILY, (Reported) Entered as Reported by: ABBY ROME on 03/08/13 0700 Atorvastatin (Lipitor Tablet) 20 Mg Tablet, 20 MG PO HS, (Reported) Entered as Reported by: ABBY ROME on 03/08/13 0700 Azithromycin (Zithromax Tab) 250 Mg Tab, 250 MG PO DAILY Prescribed by: DAVID LYON on 03/09/13 1015 Budesonide/Formoterol Fumarate (Symbicort Inhaler 160/4.5 Mcg) 10.2 Gm Hfa.aer.ad, 2 PUFF IH BID PRN, (Reported) Entered as Reported by: ABBY ROME on 03/08/13 0700 Cephalexin (Cephalexin) 500 Mg Tablet, 500 MG PO BID Prescribed by: PAULINE GUPTA on 01/14/20 0334 Cephalexin (Cephalexin) 500 Mg Tablet, 500 MG PO TID Prescribed by: KHRIS POSADA on 03/30/21 1352 Esomeprazole Mag Trihydrate (Nexium) 40 Mg Capsule.dr, 40 MG PO HS, (Reported) Entered as Reported by: ABBY ROME on 03/08/13699 Furosemide (Furosemide) 40 Mg Tablet, 40 MG PO DAILY, (Reported) Entered as Reported by: ABBY ROME on 03/08/13699 Hydrocodone/Acetaminophen (Hydrocodone-Acetamin 5-325 mg) 1 Each Tablet, 1 EACH PO Q6H PRN for PAIN-BREAKTHROUGH Prescribed by: PAULINE GUPTA on 01/14/20 033 Ipratropium Anderson (Atrovent Inhaler) 12.9 Gm Aers, 2 PUFF INH QID PRN, (Reported) Entered as Reported by: ABBY ROME on 03/08/13699 Levothyroxine Sodium (Levothyroxine 150 Mcg Tab) 150 Mcg Tablet, 150 MCG PO DAILY, (Reported) Entered as Reported by: ABBY ROME on 03/08/13699 Lisinopril (Prinivil) 40 Mg Tablet, 40 MG PO DAILY, (Reported) Entered as Reported by: ABBY ROME on 03/08/13699 Nitrofurantoin Monohyd/M-Cryst (Macrobid 100 mg Capsule) 100 Mg Capsule, 1 TAB PO BID Prescribed by: DREA ANDERS on 09/07/20 1117 Oxycodone HCl/Acetaminophen (Oxycodone-Acetaminophen 5-325) 1 Each Tablet, 1 EACH PO Q6H PRN for PAIN-SEVERE Prescribed by: EMANUEL VASQUEZ on 03/01/21 2319 Potassium Chloride (Klor-Con 10) 10 Meq Tablet.sa, 10 MEQ PO HS, (Reported) Entered as Reported by: ABBY ROME on 03/08/13 07 Prednisone (Prednisone) 20 Mg Tab, 20 MG PO DAILY Prescribed by: DAVID LYON on 03/09/13 1015 Sitagliptin Phosphate (Januvia) 100 Mg Tablet, 100 MG PO DAILY, (Reported) Entered as Reported by: ABBY ROME on 03/08/13 07 Tramadol Hcl (Tramadol Hcl) 50 Mg Tablet, 50-100 MG PO TID PRN, (Reported) Entered as Reported by: BABY ROME on 03/08/13 07 Warfarin Sodium (Coumadin) 5 Mg Tablet, 5 MG PO HS, (Reported) Entered as Reported by: ABBY ROME on 03/08/13 07 Past Bvpjtqu-Tlvwgv-Czgbgg Hx Patient Social History Smoking Status: Former Smoker Surgeries History of Surgeries: Yes Surgeries: Nephrectomy Respiratory History of Respiratory Disorde: Yes Respiratory Disorders: Asthma, Chronic Bronchitis, Sleep Apnea Cardiovascular History of Cardiac Disorders: Yes Cardiac Disorders: Coronary Artery Disease, High Cholesterol, Hypertension Neurological History of Neurological Disord: Yes Neurological Disorders: Neuropathy Genitourinary History of Genitourinary Disor: Yes Genitourinary Disorders: Renal Failure Gastrointestinal History of Gastrointestinal Di: Yes Gastrointestinal Disorders: Gastroesophageal Reflux Musculoskeletal History of Musculoskeletal Dis: Yes Musculoskeletal Disorders: Amputee, Osteoporosis, Arthritis, Chronic Back Pain Endocrine History of Endocrine Disorders: Yes Endocrine Disorders: Hypothyroidsim, Diabetes, Non-Insulin dep HEENT History of HEENT Disorders: Yes HEENT Disorders: Cataract Hearing Impairment: Hard of Hearing Cancer History of Cancer: Yes Cancer: Kidney Psychosocial Behavioral Health Disorders: Anxiety Family Medical History Significant Family History: Heart Disease, Diabetes Review of Systems-General Constitutional: fever, malaise, weakness EENTM: hearing loss, vision loss; No epistaxis Respiratory: cough, dyspnea on exertion; No phlegm; short of breath Cardiovascular: No chest pain; Hx of Intervention; No palpitations Gastrointestinal: abdominal pain; No jaundice; nausea; No vomiting Genitourinary: frequency; No hematuria Musculoskeletal: back pain, muscle stiffness, muscle cramps, muscle weakness Skin: rash (below pannus) Psychiatric/Neurological: Anxiety; Denies Seizure; Tremors, Weakness Physical Exam-General Problems Physical Exam General Appearance: mild distress, obese Eyes: Bilateral Eye PERRL, Bilateral Eye EOMI HEENT: pharynx normal; No scleral icterus (R), No scleral icterus (L) Neck: non-tender, supple Respiratory: no respiratory distress, decreased breath sounds, accessory muscle use, crackles Cardiovascular: no murmur, tachycardia Gastrointestinal: soft, distended, guarding, tenderness Extremities: no pedal edema, other (right AKA) Neurologic/Psychiatric: alert, other (anxious) Skin: rash (below pannus) Lymphatic: no adenopathy Data Review Radiology Date of Exam:04/25/21 CT ABDOMEN/PELVIS WO PROCEDURE: CT abdomen and pelvis without contrast. TECHNIQUE: Multiple contiguous axial images were obtained through the abdomen and pelvis without the use of intravenous contrast. Auto Exposure Controls were utilized during the CT exam to meet ALARA standards for radiation dose reduction. INDICATION: Abdominal pain, nausea and vomiting. Left nephrectomy on 04/23/2021. COMPARISON: CT of the pelvis from 05/13/2020. FINDINGS: There is airspace consolidation in the right lower lobe. Groundglass opacities are seen in the right middle lobe. There is mild atelectasis in the left lung base. The heart is mildly enlarged. The liver demonstrates no focal lesion. Cholecystectomy clips are noted. The spleen appears normal. The pancreas is normal. The adrenal glands appear normal. The right kidney has a hypodense 3.8 cm lesion which is most consistent with a cyst. The left kidney has been removed. There are multiple foci of air in the retroperitoneum. There is a small amount of fluid or blood products in the left retroperitoneum. There is a small amount of intraperitoneal free air as well. There is moderate soft tissue gas in the anterior left abdomen subcutaneous fat. There are gas-filled loops of large and small bowel. The colon, in particular, appears somewhat distended, may be due to ileus. There is diverticulosis of the distal colon without diverticulitis seen. There are small ventral hernias which appear to contain small knuckles of bowel. No free fluid is seen in the abdomen. There is a circumscribed hyperdense subcutaneous fluid collection in the anterior right abdomen measuring 7.9 x 3.4 cm in size. There are postsurgical changes from prior resection of the right femur with surrounding scarring. IMPRESSION: 1. Postsurgical changes from left nephrectomy. There is retroperitoneal and intraperitoneal free air, as well as significant anterior subcutaneous air. This is likely from the recent nephrectomy, please confirm transperitoneal approach. 2. Mild gaseous distention of bowel, particularly the large bowel, may be due to ileus. 3. Airspace consolidation and groundglass opacities in the right lung base, may represent infection in the appropriate clinical setting. 4. Hyperdense fluid collection in the anterior subcutaneous fat, likely a hematoma. 5. Multiple small ventral hernias containing knuckles of bowel. No definite obstruction is seen. Findings discussed with KHRIS POSADA by Dr. Buenrostro, on 04/25/2021 6:51 PM. Dictated by: Dictated on workstation # [id number] Dict: 04/25/21 1836 Trans: 04/25/211904 [facility] [id number] Interpreted by: SD BUENROSTRO MD Electronically signed by: SD BUENROSTRO MD 04/25/21 1905 Assessment/Plan Assessment/Plan Assessment/Plan Abdominal pain Ileus Acute respiratory failure S/P recent Lap nephrectomy Pt needs to move around, npo to help with return of bowel function. This will be made harder by the pain meds she is taking and the fact that she can't walk. Manage symptoms, O2 per vapotherm and max medical management. Nothing to do surgically at this time. Supervisory-Addendum Brief Verification & Attestation Participated in pt care: history, MDM, physical Personally performed: exam, history, MDM, supervision of care Care discussed with: Medical Student Procedures: n/a Verification and Attestation of Medical Student E/M Service A medical student performed and documented this service. I then reviewed and verified all information documented by the medical student and made modifications to such information, when appropriate. I personally performed a physical exam, medical decision making and then discussed any differences between the notes and made revisions as necessary to create one note. Elmira Rizo , 04/26/21 , 10:16 ASHLY TRUONG MED STUDENT Apr 26, 2021 07:54 ELMIRA RIZO DO Apr 26, 2021 10:09
[2021-04-26] MEDS: meTOprolol TARTRATE 25 MG (LOPRESSOR) TABLET PO SCH ×2 (08:01→18:29)
[2021-04-26] MEDS ORDERED: meTOprolol 5 MG/5 ML (LOPRESSOR) VIAL IV ONE (08:15)
[2021-04-26] MEDS ORDERED: MELA5TAB14 PO (10:14)
[2021-04-26] MEDS ORDERED: ASCO-262 PO (10:14)
[2021-04-26] MEDS ORDERED: APIX5TAB PO (10:14)
[2021-04-26] MEDS ORDERED: LEVO100T7 PO (10:14)
[2021-04-26] MEDS ORDERED: ATOR20TA66 PO (10:14)
[2021-04-26] MEDS ORDERED: METO-333 PO (10:14)
[2021-04-26] MEDS ORDERED: INSU100I29 SC (10:14)
[2021-04-26] MEDS ORDERED: GABA300C PO (10:14)
[2021-04-26] MEDS ORDERED: SEMA1PEN3 INJ (10:14)
[2021-04-26] MEDS ORDERED: POLY17PO6 PO (10:14)
[2021-04-26] MEDS ORDERED: SNN187T PO (10:14)
[2021-04-26] MEDS ORDERED: CHOL10004 PO (10:14)
[2021-04-26] MEDS ORDERED: MAGN400T39 PO (10:14)
[2021-04-26] MEDS ORDERED: OXYC-525 PO (10:14)
[2021-04-26] MEDS ORDERED: INSU100I14 SC (10:14)
[2021-04-26] MEDS ORDERED: SITA100T12 PO (10:14)
[2021-04-26] MEDS ORDERED: ALBU18HF2 INH (10:14)
[2021-04-26] MEDS ORDERED: ACET-2267 PO (10:14)
[2021-04-26] MEDS ORDERED: FURO20TA4 PO (10:14)
[2021-04-26] MEDS: DOCUSATE SODIUM 100 MG (COLACE) CAP PO SCH ×2 (11:07→20:56)
--- NOTE | 2021-04-26 12:23 | History & Physical ---
HPI History of Present Illness: 70 yo female came to the hospital due to constipation and pain. She had surgery at on Thursday, 04/23 and after discharge she still couldn't have a BM. She tried dulcolax and miralax without benefit. She has pain in her abdomen diffusely, but also some localized pain around her surgical site. She is non- ambulatory at baseline. She came home from the hospital on oxygen, wasn't on it before. Since admit, her pain has not worsened, but hasn't improved. Source: patient Exam Limitations: no limitations Date seen by provider: Apr 26, 2021 Time Seen by Provider: 12:19 Attending Physician Julienne Pagan MD [facility] [place] Consult Date of Admission Apr 25, 2021 at 18:47 Home Medications Home Medications Reviewed patient Home Medication Reconciliation performed by pharmacy medication reconciliations pump technician and/or nursing. Patients Allergies have been reviewed. Allergies Coded Allergies: diphenhydramine (Verified Allergy, Unknown, 05/13/20) [id number] Hx Patient Social History Smoking Status: Current Everyday Smoker 2nd Hand Smoke Exposure: Yes Recent Hopitalizations: No Alcohol Use?: No Tobacco type used: Cigarettes Have you traveled recently?: No Immunizations Up To Date Tetanus Booster (TDap): Unknown Date of Pneumonia Vaccine: Mar 09, 2013 Past Medical History PMHx: Renal cell carcinoma Diabetes Hypertension Hyperlipidemia Atrial fibrillation COPD SurgHx: Cholecystectomy Appendectomy Hysterectomy Bladder sling and later removal Thyroidectomy Right leg amputation Left nephrectomy Family Medical History Significant Family History: Heart Disease, Diabetes Review of Systems ([facility]) Constitutional: No fever Respiratory: cough Cardiovascular: No chest pain Gastrointestinal: see HPI Reviewed Test Results Reviewed Test Results Lab Laboratory Tests Test 04/25/21 17:55 04/25/21 18:45 04/26/21 04:38 04/26/21 04:40 Range/Units White Blood Count 10.5 12.0 H 4.3-11.0 10^3/uL Red Blood Count 4.19 4.25 3.80-5.11 10^6/uL Hemoglobin 12.4 12.4 11.5-16.0 g/dL Hematocrit 40 41 35-52 % Mean Corpuscular Volume 95 96 80-99 fL Mean Corpuscular Hemoglobin 30 29 25-34 pg Mean Corpuscular Hemoglobin Concent 31 L 30 L 32-36 g/dL Red Cell Distribution Width 16.0 H 15.9 H 10.0-14.5 % Platelet Count 247 226 130-400 10^3/uL Mean Platelet Volume 9.3 9.5 9.0-12.2 fL Immature Granulocyte % (Auto) 0 0 % Neutrophils (%) (Auto) 77 H 81 H 42-75 % Lymphocytes (%) (Auto) 12 10 L 12-44 % Monocytes (%) (Auto) 8 7 0-12 % Eosinophils (%) (Auto) 4 2 0-10 % Basophils (%) (Auto) 0 0 0-10 % Neutrophils # (Auto) 8.0 H 9.7 H 1.8-7.8 10^3/uL Lymphocytes # (Auto) 1.2 1.2 1.0-4.0 10^3/uL Monocytes # (Auto) 0.8 0.8 0.0-1.0 10^3/uL Eosinophils # (Auto) 0.4 H 0.2 0.0-0.3 10^3/uL Basophils # (Auto) 0.0 0.0 0.0-0.1 10^3/uL Immature Granulocyte # (Auto) 0.0 0.1 0.0-0.1 10^3/uL Prothrombin Time 13.7 12.2-14.7 SEC INR Comment 1.0 0.8-1.4 Activated Partial Thromboplast Time 38 H 24-35 SEC Sodium Level 132 L 134 L 135-145 MMOL/L Potassium Level 4.4 4.5 3.6-5.0 MMOL/L Chloride Level 94 L 96 L 98-107 MMOL/L Carbon Dioxide Level 32 29 21-32 MMOL/L Anion Gap 6 9 5-14 MMOL/L Blood Urea Nitrogen 16 15 7-18 MG/DL Creatinine 1.28 1.28 0.60-1.30 MG/DL Estimat Glomerular Filtration Rate 41 41 BUN/Creatinine Ratio 13 12 Glucose Level 188 H 183 H 70-105 MG/DL Lactic Acid Level 0.80 0.50-2.00 MMOL/L Calcium Level 9.6 9.8 8.5-10.1 MG/DL Corrected Calcium 10.2 H 8.5-10.1 MG/DL Total Bilirubin 0.7 0.1-1.0 MG/DL Aspartate Amino Transf (AST/SGOT) 22 5-34 U/L Alanine Aminotransferase (ALT/SGPT) 8 0-55 U/L Alkaline Phosphatase 72 40-136 U/L B-Type Natriuretic Peptide 121.4 H <100.0 PG/ML Total Protein 7.3 6.4-8.2 GM/DL Albumin 3.3 3.2-4.5 GM/DL Procalcitonin 0.11 H <0.10 NG/ML Urine Color YELLOW Urine Clarity CLEAR Urine pH 6.0 5-9 Urine Specific [place] 1.015 L 1.016-1.022 Urine Protein TRACE H NEGATIVE Urine Glucose (UA) NEGATIVE NEGATIVE Urine Ketones NEGATIVE NEGATIVE Urine Nitrite NEGATIVE NEGATIVE Urine Bilirubin NEGATIVE NEGATIVE Urine Urobilinogen 0.2 < = 1.0 MG/DL Urine Leukocyte Esterase NEGATIVE NEGATIVE Urine RBC (Auto) TRACE-I NEGATIVE Urine RBC 2-5 H /HPF Urine WBC NONE /HPF Urine Crystals PRESENT H /LPF Urine Amorphous Sediment MOD HYACINTH URATES H /LPF Urine Bacteria TRACE /HPF Urine Casts NONE /LPF Urine Mucus NEGATIVE /LPF Urine Culture Indicated NO Glucometer 182 H 70-110 MG/DL Test 04/26/21 11:12 Range/Units Glucometer 146 H 70-110 MG/DL Radiology Date of Exam:04/25/21 CT ABDOMEN/PELVIS WO PROCEDURE: CT abdomen and pelvis without contrast. TECHNIQUE: Multiple contiguous axial images were obtained through the abdomen and pelvis without the use of intravenous contrast. Auto Exposure Controls were utilized during the CT exam to meet ALARA standards for radiation dose reduction. INDICATION: Abdominal pain, nausea and vomiting. Left nephrectomy on 04/23/2021. COMPARISON: CT of the pelvis from 05/13/2020. FINDINGS: There is airspace consolidation in the right lower lobe. Groundglass opacities are seen in the right middle lobe. There is mild atelectasis in the left lung base. The heart is mildly enlarged. The liver demonstrates no focal lesion. Cholecystectomy clips are noted. The spleen appears normal. The pancreas is normal. The adrenal glands appear normal. The right kidney has a hypodense 3.8 cm lesion which is most consistent with a cyst. The left kidney has been removed. There are multiple foci of air in the retroperitoneum. There is a small amount of fluid or blood products in the left retroperitoneum. There is a small amount of intraperitoneal free air as well. There is moderate soft tissue gas in the anterior left abdomen subcutaneous fat. There are gas-filled loops of large and small bowel. The colon, in particular, appears somewhat distended, may be due to ileus. There is diverticulosis of the distal colon without diverticulitis seen. There are small ventral hernias which appear to contain small knuckles of bowel. No free fluid is seen in the abdomen. There is a circumscribed hyperdense subcutaneous fluid collection in the anterior right abdomen measuring 7.9 x 3.4 cm in size. There are postsurgical changes from prior resection of the right femur with surrounding scarring. IMPRESSION: 1. Postsurgical changes from left nephrectomy. There is retroperitoneal and intraperitoneal free air, as well as significant anterior subcutaneous air. This is likely from the recent nephrectomy, please confirm transperitoneal approach. 2. Mild gaseous distention of bowel, particularly the large bowel, may be due to ileus. 3. Airspace consolidation and groundglass opacities in the right lung base, may represent infection in the appropriate clinical setting. 4. Hyperdense fluid collection in the anterior subcutaneous fat, likely a hematoma. 5. Multiple small ventral hernias containing knuckles of bowel. No definite obstruction is seen. Findings discussed with KHRIS POSADA by Dr. Buenrostro, on 04/25/2021 6:51 PM. Dictated by: Dictated on workstation # [id number] Dict: 04/25/21 1836 Trans: 04/25/211904 LOCATED WITHIN [facility] [id number] Interpreted by: SD BUENROSTRO MD Electronically signed by: SD BUENROSTRO MD 04/25/211904 Physical Exam-([facility]) Physical Exam Vital Signs VS - Last 72 Hours, by Label 04/25/21 04/25/21 04/25/21 04/25/21 17:44 17:44 19:41 19:48 Temp 36.3 36.6 Pulse 111 90 Resp 22 12 B/P (MAP) 168/101 (123) 150/88 Pulse Ox 92 97 94 O2 Delivery Nasal Cannula Nasal Cannula OxyMask Nasal Cannula O2 Flow Rate 3.00 3.00 5.00 6.00 04/25/21 04/25/21 04/25/21 04/25/21 21:30 21:30 22:30 22:31 Temp 36.7 Pulse 103 Resp 16 B/P (MAP) 117/70 (86) Pulse Ox 88 95 94 93 O2 Delivery High Flow N/C Vapotherm Vapotherm Vapotherm O2 Flow Rate 7.00 35.00 35.00 35.00 60.00 FiO2 60 60 04/25/21 04/26/21 04/26/21 04/26/21 22:31 00:07 02:45 03:52 Temp 36.7 35.3 35.2 Pulse 103 102 114 Resp 17 17 B/P (MAP) 127/77 (94) 114/92 (99) Pulse Ox 88 92 95 95 O2 Delivery Vapotherm Vapotherm Vapotherm O2 Flow Rate 35.00 35.00 35.00 60.00 60.00 FiO2 60 04/26/21 04/26/21 04/26/21 04/26/21 06:49 08:00 08:00 08:16 Temp 35.9 Pulse 99 139 Resp 22 B/P (MAP) 106/78 (87) Pulse Ox 92 92 95 O2 Delivery Vapotherm Vapotherm Vapotherm O2 Flow Rate 35.00 35.00 35.00 60.00 FiO2 60 60 04/26/21 04/26/21 04/26/21 04/26/21 11:21 12:00 13:00 14:52 Temp 36.0 Pulse 54 130 Resp 24 B/P (MAP) 130/77 (94) Pulse Ox 95 96 98 O2 Delivery Vapotherm Vapotherm Vapotherm O2 Flow Rate 35.00 30.00 25.00 60.00 FiO2 60 50 04/26/21 04/26/21 04/26/21 04/26/21 16:10 18:22 19:00 19:50 Temp 35.8 36.8 Pulse 123 115 107 Resp 22 20 B/P (MAP) 126/75 (92) 136/80 (98) Pulse Ox 93 92 90 O2 Delivery Vapotherm Vapotherm Vapotherm O2 Flow Rate 25.00 25.00 25.00 50.00 50.00 FiO2 50 Capillary Refill : Less Than 3 Seconds General Appearance: mild distress, obese Respiratory: accessory muscle use, rhonchi Cardiovascular: tachycardia, irregularly irregular Gastrointestinal: normal bowel sounds, distended, tenderness, other (incision on left abdomen with stitches/steri-strips in place and no erythema or drainage) Extremities: no pedal edema (left leg), other (right leg amputated at hip) Neurologic/Psychiatric: alert, normal mood/affect, oriented x 3 Skin: normal color, warm/dry Assessment/Plan Assessment/Plan Admission Status: Inpatient Order (span 2 midnights) Reason for Inpatient Admission: Ileus and acute on chronic respiratory failure (1) Ileus Status: Acute Assessment & Plan: No obstruction on CT, clear liquids, minimize opiates as tolerated. NG decompression done in ER, resume NG if needed. (2) Acute and chronic respiratory failure Status: Acute Assessment & Plan: Postoperative versus superimposed pneumonia. Requiring vapotherm and is not on supplemental oxygen at baseline prior to her surgery this week although she does have COPD. (3) Pneumonia Status: Acute Assessment & Plan: Right basilar possible infiltrate, given her respiratory distress and recent surgery, will treat for hospital associated pneumonia. Zosyn, vancomycin. Cultures pending. (4) Diabetes Status: Chronic Assessment & Plan: Sliding scale insulin. Qualifiers: (5) Hypertension Status: Chronic (6) Atrial fibrillation Status: Chronic Assessment & Plan: Tachycardic, resume home medications, may need IV if she cannot tolerate PO. Ant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 held until 04/30 per surgery follow up from her nephrectomy. (7) Hypothyroidism Status: Chronic (8) COPD (chronic obstructive pulmonary disease) Status: Chronic (9) Renal cell carcinoma Status: Acute Assessment & Plan: Resected this week at . Qualifiers: Qualified Codes: C64.2 - Malignant neoplasm of left kidney, except renal pelvis (10) Status post nephrectomy Status: Acute (11) Obesities, morbid Status: Chronic JULIENNE PAGAN MD Apr 26, 2021 12:23
[2021-04-26] MEDS ORDERED: PIPERACILLIN/TAZOBACTAM (BULK) 4.5 GM in NS (IVPB) 100 ML IV NR (12:45)
[2021-04-26] MEDS ORDERED: PHARMACY TO DOSE IV SCH (12:45)
[2021-04-26] MEDS ORDERED: VANCOMYCIN INJECTION 2,250 MG in NS IV 500 ML 500 ML IV NR (13:00)
[2021-04-26] MEDS: PANTOPRAZOLE 40 MG (PROTONIX) VIAL IV SCH (17:19)
[2021-04-26] MEDS: RT--FLUTICASONE/SALMETEROL 232-14 (AIRDUO RespiCLICK) IH SCH (18:27)
[2021-04-26] MEDS: LACTATED RINGERS 1,000 ML IV SCH ×2 (18:32→22:27)
[2021-04-26] MEDS: CALCIUM CARBONATE 500 MG (TUMS) TAB.CHEW PO PRN (20:57)
[2021-04-26] MEDS ORDERED: meTOprolol TARTRATE 25 MG (LOPRESSOR) TABLET PO SCH (21:00)
[2021-04-26] MEDS: PIPERACILLIN/TAZOBACTAM (BULK) 4.5 GM in NS (IVPB) 100 ML IV SCH (22:27)
[2021-04-27] MEDS: fentaNYL INJ 100 MCG/2 ML AMP IV PRN ×3 (00:35→16:02)
[2021-04-27] MEDS: RT-ALBUTEROL/IPRATROPIUM 3 ML (DUONEB) VIAL INH SCH ×6 (01:47→21:35)
[2021-04-27 03:55] VITALS: BP 140/74
[2021-04-27] MEDS: PIPERACILLIN/TAZOBACTAM (BULK) 4.5 GM in NS (IVPB) 100 ML IV SCH ×3 (03:55→18:03)
[2021-04-27] MEDS: RT--FLUTICASONE/SALMETEROL 232-14 (AIRDUO RespiCLICK) IH SCH (06:25)
[2021-04-27] MEDS: LEVOTHYROXINE 100 MCG (LEVOTHROID) TAB PO SCH (06:33)
[2021-04-27] MEDS: oxyCODONE/APAP 7.5-325 MG (PERCOCET 7.5) TABLET PO SCH ×3 (06:33→18:03)
[2021-04-27] MEDS: inSUlin ASPART (NovoLOG) 1 UNIT/0.01 ML (CHARGE PER UNIT) SC SCH ×4 (07:11→21:14)
[2021-04-27 07:18] LABS: HEMATOCRIT 36 % (35-52); HEMOGLOBIN 10.9 g/dL (11.5-16.0); MEAN CORPUSCULAR HEMOGLOBIN 29 pg (25-34); MEAN CORPUSCULAR HGB CONC 30 g/dL (32-36); MEAN CORPUSCULAR VOLUME 95 fL (80-99); MEAN PLATELET VOLUME 9.7 fL (9.0-12.2); PLATELET COUNT 238 10^3/uL (130-400); WHITE BLOOD COUNT 9.2 10^3/uL (4.3-11.0)
[2021-04-27 07:37] LABS: CALCIUM 9.2 MG/DL (8.5-10.1)
[2021-04-27 07:41] LABS: CREATININE SERUM 0.97 MG/DL (0.60-1.30)
[2021-04-27 07:43] LABS: MAGNESIUM 1.9 MG/DL (1.6-2.4)
[2021-04-27 07:44] VITALS: BP 136/90
--- NOTE | 2021-04-27 07:52 | Progress Note - Surgery ---
JONO SMITH 04/27/21 0752: Subjective Date Seen by a Provider: Apr 27, 2021 Subjective/Events-last exam Patient is S/P L nephrectomy on Monday 04/23. She reports that she is still having abdominal pain this morning. She has not had a bowel movement or passed any gas since thursday. She has been on liquid diet since surgery. Patient has a non-productive cough and shortness of breath. She has no pain with urination. She started Miralax this morning. She has not had any nausea/vomiting. Focused Exam Lactate Level 04/25/21 17:55: Lactic Acid Level 0.80 Objective Exam Vital Signs Date Time Temp Pulse Resp B/P (MAP) Pulse Ox O2 Delivery O2 Flow Rate FiO2 04/27/21 07:00 117 04/27/21 06:27 95 Vapotherm 25.00 50 04/27/21 03:55 36.1 109 22 140/74 (96) 94 Vapotherm 25.00 50.00 04/27/21 01:47 95 Vapotherm 25.00 50 04/27/21 00:58 119 04/26/21 23:11 36.2 114 22 135/97 (110) 94 Vapotherm 25.00 50.00 04/26/21 22:29 93 Vapotherm 25.00 50 04/26/21 20:55 Vapotherm 25.00 50 04/26/21 19:50 36.8 107 20 136/80 (98) 90 Vapotherm 25.00 50.00 04/26/21 19:00 115 04/26/21 18:22 92 Vapotherm 25.00 50 04/26/21 16:10 35.8 123 22 126/75 (92) 93 Vapotherm 25.00 50.00 04/26/21 14:52 98 Vapotherm 25.00 50 04/26/21 13:00 130 04/26/21 12:00 36.0 54 24 130/77 (94) 96 Vapotherm 30.00 60.00 04/26/21 11:21 95 Vapotherm 35.00 60 04/26/21 08:16 139 04/26/21 08:00 95 Vapotherm 35.00 60 04/26/21 08:00 35.9 99 22 106/78 (87) 92 Vapotherm 35.00 60.00 I & O 04/27/21 07:00 Intake Total 1680 ml Output Total 1525 ml Balance 155 ml Capillary Refill : Less Than 3 Seconds General Appearance: No Apparent Distress HEENT: PERRL/EOMI Neck: Normal Inspection Respiratory: Chest Non Tender, Lungs Clear, Normal Breath Sounds, No Accessory Muscle Use, No Respiratory Distress Cardiovascular: Regular Rate, Rhythm Gastrointestinal: distended (moderate), tenderness (diffuse), other (incision on left abdomen with stitches/steri-strips in place and no erythema or drainage) Extremity: Normal Inspection Neurologic/Psychiatric: Alert, Oriented x3, Normal Mood/Affect Skin: Normal Color, Warm/Dry Results Lab Laboratory Tests 04/26/21 11:12: Glucometer 146H 04/26/21 16:15: Glucometer 188H 04/26/21 20:41: Glucometer 153H 04/27/21 06:18: White Blood Count 9.2, Red Blood Count 3.78L, Hemoglobin 10.9L, Hematocrit 36, Mean Corpuscular Volume 95, Mean Corpuscular Hemoglobin 29, Mean Corpuscular Hemoglobin Concent 30L, Red Cell Distribution Width 15.8H, Platelet Count 238, Mean Platelet Volume 9.7, Sodium Level 134L, Potassium Level 4.0, Chloride Level 97L, Carbon Dioxide Level 29, Anion Gap 8, Blood Urea Nitrogen 11, Creatinine 0.97, Estimat Glomerular Filtration Rate 57, BUN/Creatinine Ratio 11, Glucose Level 154H, Calcium Level 9.2, Magnesium Level 1.9 04/27/21 07:10: Glucometer 144H Microbiology 04/25/21 Blood Culture - Preliminary, Resulted No growth Assessment/Plan Assessment/Plan Assessment/Plan Abdominal pain Ileus Acute respiratory failure S/P recent L Lap nephrectomy Pt must try to move around, npo to help with return of bowel function. Pain meds and inability to ambulate will make this more difficult. O2 per vapotherm and max medical management. Nothing to do surgically at this time. ANGELA ANDRADE DO 04/27/21 1434: Subjective Time Seen by a Provider: 10:00 Subjective/Events-last exam Patient has abdominal pain with variable distribution abdomen slightly more distended she states. Denies any bowel movement or flatus. Patient has been on liquid diet which she is taking some liquids and. Patient reports cough and shortness of breath. Increasing need for oxygen supplementation. Patient not having any nausea or vomiting. Objective Exam General Appearance: No Apparent Distress (Laying in bed), Obese HEENT: PERRL/EOMI Neck: Normal Inspection, Non Tender, Supple Respiratory: Other (Slightly labored breathing, equal chest rise) Cardiovascular: Regular Rate, Rhythm, No JVD Gastrointestinal: distended (moderate), tenderness (diffuse), other (incision on left abdomen with stitches/steri-strips in place and no erythema or drainage) Extremity: Normal Inspection, Other (Right lower extremity amputation) Neurologic/Psychiatric: Alert, Oriented x3, Normal Mood/Affect Skin: Normal Color, Warm/Dry Lymphatic: No Adenopathy Assessment/Plan Assessment/Plan Assessment/Plan Abdominal pain diffuse Ileus Acute respiratory failure S/P recent L Lap nephrectomy Increasing shortness of breath Left lower lung possible mucous plug Patient discussed need to try to control pain but also not overdo it due to possibility of worsening ileus. Patient with CT chest nose performed today demonstrating possible mucous plugs the left lower lobe. Discussed with Dr. Braun may benefit from bronchoscopy. Will discuss with patient risk and benefits of having a bronchoscopy for possible removing the mucous plug that would help with her breathing. Would make patient n.p.o. after midnight do tomorrow. Await bowel function. KUB in a.m. Supervisory-Addendum Brief Verification & Attestation Participated in pt care: history, MDM, physical Personally performed: exam, history, MDM, supervision of care Care discussed with: Medical Student Procedures: n/a Results interpretation: Verified all documentation Verification and Attestation of Medical Student E/M Service A medical student performed and documented this service in my presence. I reviewed and verified all information documented by the medical student and made modifications to such information, when appropriate. I personally performed the physical exam and medical decision making. Angela Andrade Apr 27, 2021,14:33 JONO SMITH Apr 27, 2021 07:52 ANGELA ANDRADE DO Apr 27, 2021 14:34
[2021-04-27] MEDS ORDERED: FLUTICASONE/VILANTEROL 200 MCG 14'S (BREO) IH SCH (08:00)
[2021-04-27] MEDS: meTOprolol TARTRATE 25 MG (LOPRESSOR) TABLET PO SCH (08:48)
[2021-04-27] MEDS: SENNOSIDES 8.6 MG (SENOKOT) TAB PO PRN (08:48)
[2021-04-27] MEDS: DOCUSATE SODIUM 100 MG (COLACE) CAP PO SCH ×2 (08:48→21:25)
[2021-04-27] MEDS: polyethylene glycoL POWDER 17 GM (MIRALAX) PACK PO SCH (08:48)
[2021-04-27] MEDS: PANTOPRAZOLE 40 MG (PROTONIX) VIAL IV SCH (08:48)
[2021-04-27] MEDS ORDERED: meTOprolol TARTRATE 50 MG (LOPRESSOR) TAB PO ONE (09:45)
--- NOTE | 2021-04-27 10:41 | Progress Note - Hospitalist ---
Subjective HPI/CC On Admission Date Seen by Provider: Apr 27, 2021 Time Seen by Provider: 09:00 Subjective/Events-last exam Upon my arrival patient was reporting a lot of ongoing abdominal pain of a colicky quality. She denies passage of stool or flatus feeling distended which is aggravating her shortness of breath. She has had a mild dry cough denies hemoptysis. She denies chills or fever. Focused Exam Lactate Level 04/25/21 17:55: Lactic Acid Level 0.80 Objective Exam Vital Signs Vital Signs Date Time Temp Pulse Resp B/P (MAP) Pulse Ox O2 Delivery O2 Flow Rate FiO2 04/27/21 07:44 36.3 111 20 136/90 (105) 95 Vapotherm 25.00 45.00 04/27/21 06:27 50 Capillary Refill : Less Than 3 Seconds General Appearance: Chronically ill, Moderate Distress, Obese Respiratory: No Accessory Muscle Use, No Respiratory Distress, Other (Patient tachypneic faint expiratory wheeze diminished breath sounds posteriorly. No focal findings noted.) Cardiovascular: Regular Rate, Rhythm, No Gallop, No Murmur Extremity: No Pedal Edema, Other (Right AKA) Results/Procedures Lab Laboratory Tests 04/27/21 06:18 Patient resulted labs reviewed. Assessment/Plan Assessment and Plan Assess & Plan/Chief Complaint (1) Ileus Status: Acute Assessment & Plan: No obstruction on CT, clear liquids, minimize opiates as tolerated. NG decompression done in ER, resume NG if needed. (2) Acute and chronic respiratory failure Status: Acute Assessment & Plan: Postoperative versus superimposed pneumonia. Requiring vapotherm and is not on supplemental oxygen at baseline prior to her surgery this week although she does have COPD. Pro calcitonin level was just borderline at 0.11 pneumonia questionable patient high risk for pulmonary embolism renal function normal will increase IV fluids and obtain pulmonary CT angiography. (3) Pneumonia Status: Acute Assessment & Plan: Right basilar possible infiltrate, given her respiratory distress and recent surgery, will treat for hospital associated pneumonia. Zosyn, vancomycin. Cultures pending. (4) Diabetes Status: Chronic Assessment & Plan: Sliding scale insulin. Qualifiers: (5) Hypertension Status: Chronic (6) Atrial fibrillation Status: Chronic Assessment & Plan: Tachycardic, resume home medications, may need IV if she cannot tolerate PO. Ant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 held until 04/30 per surgery follow up from her nephrectomy. (7) Hypothyroidism Status: Chronic (8) COPD (chronic obstructive pulmonary disease) Status: Chronic (9) Renal cell carcinoma Status: Acute Assessment & Plan: Resected this week at . Qualifiers: Qualified Codes: C64.2 - Malignant neoplasm of left kidney, except renal pelvis (10) Status post nephrectomy Status: Acute (11) Obesities, morbid Status: Chronic Critical Care Critically Ill Patient DENVER HERRMANN MD Apr 27, 2021 10:41
[2021-04-27] MEDS ORDERED: NS 100 ML (IVPB) BAG IV ONE (11:00)
[2021-04-27] MEDS ORDERED: HOLD METFORMIN - RECEIVED CONTRAST 20 ML VIAL IV SCH (11:00)
[2021-04-27] MEDS ORDERED: IOHEXOL 350 MG/ML 100 ML (OMNIPAQUE 350) VIAL IV ONE (11:00)
[2021-04-27 12:04] VITALS: BP_SYST 156; BP_SYST 161; BP_DIAS 84; BP_DIAS 95
[2021-04-27] MEDS: VANCOMYCIN 1,750 MG/NS 500 ML IVPB IV SCH ×2 (12:49)
--- NOTE | 2021-04-27 13:01 | Diagnostic Imaging Report ---
PROCEDURE: CT angiography of the chest with contrast. TECHNIQUE: Multiple contiguous axial images were obtained through the chest after uneventful bolus administration of intravenous contrast. 3D reconstructed CTA MIP acquisitions were also performed. Auto Exposure Controls were utilized during the CT exam to meet ALARA standards for radiation dose reduction. INDICATION: Hypoxia There are no CTA chest examinations available for comparison. The plain film examination of the chest performed on 04/25/2021 noted cardiomegaly and mild pulmonary congestion as well as right lower lobe atelectasis/infiltrate. In the interval since the prior exam, there has been some increase in the atelectasis/infiltrate in the right lung base. There is also now a prominent area of consolidation involving the left lower lobe. There is a small amount of fluid in the left lung base, as well. In addition, there is the suggestion of an area of diminished density within the bronchus to the right lower lobe. This could represent a mucous plug. (Image 61 of 161). The left upper lung is generally clear. There are patchy alveolar/interstitial infiltrates in the right middle lobe. The right upper lobe is unremarkable. The heart is enlarged but stable when compared to the prior exam. Coronary artery calcifications are noted. The aorta and the pulmonary arteries were not fully opacified and consequently difficult to evaluate for a pulmonary embolus. There is no definite defect within the pulmonary arteries to indicate a pulmonary embolus. The aorta is not abnormally dilated and there is no sign of a dissection. There is no mediastinal or hilar adenopathy. The thyroid gland was not well visualized. There is no obvious breast mass. The sections through the upper abdomen failed to show any sign of an acute abnormality. By history patient, the patient did undergo a left nephrectomy approximately 4 days ago. There still appears to be some fluid/hematoma formation in the left renal fossa. This is unchanged when compared to the previous CT abdomen/pelvis exam of 04/25/2021. The bone windows are unremarkable for a fracture or for a destructive lesion. IMPRESSION: 1. The appearance of the chest has worsened since the prior exam as there is greater involvement of both lungs by pneumonia/atelectasis, particularly the left lung base. There is also a question of a mucous plug involving the bronchus to the left lower lobe. 2. There is no evidence for an aortic aneurysm or a dissection. There is no definite defect within the pulmonary arteries to indicate a pulmonary embolus either. 3. There is cardiomegaly and coronary artery disease. 4. There still some residual fluid/hemorrhage in the left renal fossa. 5. These results were discussed with Dr. Reuben Braun. Dictated by: Dictated on workstation # [id number]
[2021-04-27 15:26] VITALS: BP 150/94
[2021-04-27] MEDS ORDERED: FLEET ENEMA ADULT 1 EA BTL PR ONE (17:00)
[2021-04-27] MEDS ORDERED: FLEET ENEMA ADULT 1 EA BTL ONE (17:22)
[2021-04-27] MEDS: morphine INJ 4 MG/ML 1 ML (VIAL/SYRINGE) IVP PRN (17:26)
[2021-04-27 19:23] VITALS: BP 151/81
[2021-04-27] MEDS: LACTATED RINGERS 1,000 ML IV SCH (20:55)
[2021-04-27] MEDS: meTOprolol TARTRATE 50 MG (LOPRESSOR) TAB PO SCH (21:25)
[2021-04-28] VITALS (13 sets, daily range): BP systolic 114–171; BP diastolic 58–95
[2021-04-28] MEDS: oxyCODONE/APAP 7.5-325 MG (PERCOCET 7.5) TABLET PO SCH ×5 (00:30→23:40)
[2021-04-28] MEDS: morphine INJ 4 MG/ML 1 ML (VIAL/SYRINGE) IVP PRN ×2 (00:31→08:28)
[2021-04-28] MEDS: RT-ALBUTEROL/IPRATROPIUM 3 ML (DUONEB) VIAL INH SCH ×6 (02:30→21:08)
[2021-04-28] MEDS: PIPERACILLIN/TAZOBACTAM (BULK) 4.5 GM in NS (IVPB) 100 ML IV SCH ×3 (03:33→18:50)
[2021-04-28] MEDS: LACTATED RINGERS 1,000 ML IV SCH ×4 (03:34→23:35)
[2021-04-28] MEDS: fentaNYL INJ 100 MCG/2 ML AMP IV PRN ×2 (03:51→06:14)
[2021-04-28] MEDS: inSUlin ASPART (NovoLOG) 1 UNIT/0.01 ML (CHARGE PER UNIT) SC SCH ×4 (06:07→21:00)
[2021-04-28] MEDS: LEVOTHYROXINE 100 MCG (LEVOTHROID) TAB PO SCH (06:07)
[2021-04-28] MEDS: meTOprolol TARTRATE 50 MG (LOPRESSOR) TAB PO SCH ×2 (08:28→21:00)
[2021-04-28] MEDS: PANTOPRAZOLE 40 MG (PROTONIX) VIAL IV SCH (08:28)
[2021-04-28] MEDS ORDERED: LACTATED RINGERS 1,000 ML IV PRN (08:30)
[2021-04-28] MEDS: polyethylene glycoL POWDER 17 GM (MIRALAX) PACK PO SCH (09:00)
[2021-04-28] MEDS ORDERED: proPOfol 200 MG/20 ML (DIPRIVAN) VIAL IV ONE (10:21)
[2021-04-28] MEDS ORDERED: LIDOCAINE PF 2% 5 ML (XYLOCAINE) VIAL ONE (10:21)
[2021-04-28] MEDS ORDERED: SUCCINYLCHOLINE INJ 100 MG/5 ML SYR/VIAL ONE (10:21)
[2021-04-28] MEDS ORDERED: SEVOFLURANE (ULTANE) 15 ML INHAL SOLN ONE (10:25)
--- NOTE | 2021-04-28 10:25 | Progress Note - Surgery ---
JONO SMITH 04/28/21 1025: Subjective Date Seen by a Provider: Apr 28, 2021 Time Seen by a Provider: 09:15 Subjective/Events-last exam Patient is doing well this morning. Her breathing has not improved since yesterday, but she continues to use the incentive spirometer. Her abdomen is sanding machine tender, but she is passing gas now. She has still not had a bowel movement. she had some nausea yesterday for a short period of time but denies any vomiting. Denies sweats/chills or palpitations. Focused Exam Lactate Level 04/25/21 17:55: Lactic Acid Level 0.80 Objective Exam Vital Signs Date Time Temp Pulse Resp B/P (MAP) Pulse Ox O2 Delivery O2 Flow Rate FiO2 04/28/21 07:30 36.5 84 18 171/86 (114) 94 High Flow N/C 6.00 04/28/21 07:00 99 04/28/21 06:56 96 High Flow N/C 6.00 04/28/21 04:16 36.6 94 17 158/63 (94) 94 High Flow N/C 6.00 04/28/21 02:30 94 High Flow N/C 6.00 04/28/21 01:00 92 04/28/21 00:31 36.1 92 18 139/89 (106) 94 High Flow N/C 6.00 04/27/21 21:35 93 High Flow N/C 6.00 04/27/21 20:40 Nasal Cannula 6.00 04/27/21 19:23 35.9 100 20 151/81 (104) 96 High Flow N/C 6.00 04/27/21 19:00 115 04/27/21 18:34 95 High Flow N/C 6.00 04/27/21 15:26 36.2 107 18 150/94 (112) 96 High Flow N/C 6.00 04/27/21 14:48 94 High Flow N/C 6.00 04/27/21 13:00 107 04/27/21 12:04 36.0 105 16 156/84 (108) 97 Vapotherm 25.00 45.00 04/27/21 11:00 96 High Flow N/C 6.00 04/27/21 10:52 95 High Flow N/C 6.00 I & O 04/28/21 07:00 Intake Total 960 ml Output Total 2650 ml Balance -1690 ml Capillary Refill : Less Than 3 Seconds General Appearance: No Apparent Distress (Laying in bed), Obese HEENT: PERRL/EOMI Neck: Normal Inspection, Non Tender, Supple Respiratory: Other (Slightly labored breathing, equal chest rise) Cardiovascular: Regular Rate, Rhythm, No JVD Gastrointestinal: distended (mild-improving), tenderness (diffuse), other (incision on left abdomen with stitches/steri-strips in place and no erythema or drainage) Extremity: Normal Inspection, Other (Right lower extremity amputation) Neurologic/Psychiatric: Alert, Oriented x3, Normal Mood/Affect Skin: Normal Color, Warm/Dry Lymphatic: No Adenopathy Results Lab Laboratory Tests 04/27/21 10:45: Glucometer 153H 04/27/21 15:32: Glucometer 155H 04/27/21 20:31: Glucometer 174H 04/28/21 00:30: Influenza Type A (RT-PCR) Not Detected, Influenza Type B (RT-PCR) Not Detected, SARS-CoV-2 RNA (RT-PCR) Not Detected 04/28/21 06:02: Glucometer 125H Microbiology 04/25/21 Blood Culture - Preliminary, Resulted No growth Assessment/Plan Assessment/Plan Assessment/Plan Abdominal pain diffuse Ileus Acute respiratory failure S/P recent L Lap nephrectomy Increasing shortness of breath Left lower lung possible mucous plug Continue to manage pain without overdoing it so bowel function can be maintained. Discussed risks/benefits of bronchoscopy to remove possible L lower lobe mucus plug, patient was agreeable. Bowel function improving, passing gas now but still no bowel movement. ANGELA ANDRADE DO 04/28/21 1142: Subjective Subjective/Events-last exam Patient feeling better today with her abdomen. Passing flatus. No bm. Less tender diffusely. Breathing she states has not really improved. She is using IS and has been able to decrease supplemental o2. Denies fever sweats chils or chest pain at this time. Objective Exam General Appearance: No Apparent Distress (Laying in bed), Obese HEENT: PERRL/EOMI, Normal ENT Inspection Neck: Normal Inspection, Non Tender, Supple Respiratory: Chest Non Tender, No Accessory Muscle Use, No Respiratory Distress, Other (Slightly labored breathing, equal chest rise) Cardiovascular: Regular Rate, Rhythm, No JVD Gastrointestinal: distended (less than yesterday), tenderness (diffuse), other (incision on left abdomen with stitches/steri-strips in place and no erythema or drainage) Extremity: Normal Inspection, Other (Right lower extremity amputation) Neurologic/Psychiatric: Alert, Oriented x3, Normal Mood/Affect Skin: Normal Color, Warm/Dry Lymphatic: No Adenopathy Assessment/Plan Assessment/Plan Assessment/Plan Abdominal pain diffuse Ileus Acute respiratory failure S/P recent L Lap nephrectomy Increasing shortness of breath Left lower lung possible mucous plug Continue to manage pain without overdoing it so bowel function can be maintained. Discussed risks/benefits of bronchoscopy, patient understands risks and benfits an is agreeable. Will get washings. Currently NPO. Bowel function improving, passing gas now but still no bowel movement. Continue clears after procedure. Supervisory-Addendum Brief Verification & Attestation Participated in pt care: history, MDM, physical Personally performed: exam, history, MDM, supervision of care Care discussed with: Medical Student Procedures: n/a Results interpretation: Verified all documentation Verification and Attestation of Medical Student E/M Service A medical student performed and documented this service in my presence. I reviewed and verified all information documented by the medical student and made modifications to such information, when appropriate. I personally performed the physical exam and medical decision making. Angela Andrade, Apr 28, 2021,09:41 JONO SMITH Apr 28, 2021 10:25 ANGELA ANDRADE DO Apr 28, 2021 11:42
[2021-04-28] MEDS ORDERED: ONDANSETRON 4 MG/2 ML (SDV) Z0FRAN ONE (10:26)
[2021-04-28] MEDS: DOCUSATE SODIUM 100 MG (COLACE) CAP PO SCH ×2 (10:44→21:00)
[2021-04-28] MEDS: RT--FLUTICASONE/SALMETEROL 232-14 (AIRDUO RespiCLICK) IH SCH ×2 (10:58→18:43)
[2021-04-28] MEDS ORDERED: ONDANSETRON 4 MG/2 ML (SDV) Z0FRAN IVP PRN (11:00)
[2021-04-28] MEDS ORDERED: morphine INJ 10 MG/ML 1ML (SYR OR VIAL) IVP ONE (11:00)
[2021-04-28] MEDS ORDERED: MEPERIDINE (DEMEROL) INJ 50 MG/ML IVP ONE (11:00)
[2021-04-28] MEDS ORDERED: fentaNYL INJ 100 MCG/2 ML AMP IVP ONE (11:00)
--- NOTE | 2021-04-28 11:09 | Progress Note - Hospitalist ---
Subjective HPI/CC On Admission Date Seen by Provider: Apr 28, 2021 Time Seen by Provider: 10:30 Subjective/Events-last exam Patient reports decreasing abdominal pain passing gas no stool as of yet. Denies chills or fever not quite as short of breath. No chest pain. Scheduled for therapeutic bronchoscopy due to evidence for mucous plugging on yesterday CT angio with no evidence for pulmonary embolism. Focused Exam Lactate Level 04/25/21 17:55: Lactic Acid Level 0.80 Objective Exam Vital Signs Vital Signs Date Time Temp Pulse Resp B/P (MAP) Pulse Ox O2 Delivery O2 Flow Rate FiO2 04/28/21 09:00 Nasal Cannula 5.00 04/28/21 07:30 36.5 84 18 171/86 (114) 94 04/27/21 08:00 50 Capillary Refill : Less Than 3 Seconds General Appearance: Anxious, Chronically ill Respiratory: No Accessory Muscle Use, No Respiratory Distress, Other (Absent breath sounds left base diminished breath sounds right base clear anteriorly) Cardiovascular: Regular Rate, Rhythm, No Edema, No Gallop, No JVD, No Murmur Results/Procedures Lab Patient resulted labs reviewed. Assessment/Plan Assessment and Plan Assess & Plan/Chief Complaint (1) Ileus Status: Acute Assessment & Plan: No obstruction on CT, clear liquids, minimize opiates as tolerated. NG decompression done in ER, resume NG if needed. (2) Acute and chronic respiratory failure Status: Acute Assessment & Plan: 04/27 Postoperative versus superimposed pneumonia. Requiring vapotherm and is not on supplemental oxygen at baseline prior to her surgery this week although she does have COPD. Pro calcitonin level was just borderline at 0.11 pneumonia questionable patient high risk for pulmonary embolism renal function normal will increase IV fluids and obtain pulmonary CT angiography. 04/28: Ileus improving patient scheduled for therapeutic bronchoscopy for mucous plugging later this morning. (3) Pneumonia Status: Acute Assessment & Plan: Right basilar possible infiltrate, given her respiratory distress and recent surgery, will treat for hospital associated pneumonia. Zosyn, vancomycin. Cultures pending. (4) Diabetes Status: Chronic Assessment & Plan: Sliding scale insulin. Qualifiers: (5) Hypertension Status: Chronic (6) Atrial fibrillation Status: Chronic Assessment & Plan: Tachycardic, resume home medications, may need IV if she cannot tolerate PO. Ant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 held until 04/30 per surgery follow up from her nephrectomy. (7) Hypothyroidism Status: Chronic (8) COPD (chronic obstructive pulmonary disease) Status: Chronic (9) Renal cell carcinoma Status: Acute Assessment & Plan: Resected this week at . Qualifiers: Qualified Codes: C64.2 - Malignant neoplasm of left kidney, except renal pelvis (10) Status post nephrectomy Status: Acute (11) Obesities, morbid Status: Chronic Critical Care Critically Ill Patient DENVER HERRMANN MD Apr 28, 2021 11:09
--- NOTE | 2021-04-28 11:56 | Progress Note-Post Operative ---
Post-Operative Progess Note Surgeon (s)/Calibration Technician (s) Surgeon ANGELA TRUONG DO Calibration Technician: na Pre-Operative Diagnosis mucous plug left lower lobe Post-Operative Diagnosis diffuse mucous b/l and left lower lobe mucous plug Procedure & Operative Findings Date of Procedure 04/28/21 Procedure Performed/Findings bronchoscopy with b/l washings Anesthesia Type general Estimated Blood Loss Estimated blood loss (mL): none Specimens/Packing Specimens Removed b/l washings ANGELA TRUONG DO Apr 28, 2021 11:56
--- NOTE | 2021-04-28 12:06 | Diagnostic Imaging Report ---
EXAMINATION: Chest radiograph, portable AP view. DATE: 04/28/2021 12:00 PM INDICATION: 70-year-old female, shortness of breath. Status post bronchoscopy. COMPARISON: July 25, 2021. FINDINGS: Heart size and mediastinal contours are unchanged. There is no identified pneumothorax. There are streaky opacities in the bilateral mid and lower lung zones. IMPRESSION: 1. Streaky opacities in the mid and lower lung zones bilaterally with interval increase on the left. This may relate to infiltrate and/or atelectasis. Dictated by: Dictated on workstation # [id number]
[2021-04-28] MEDS: VANCOMYCIN 1,750 MG/NS 500 ML IVPB IV SCH ×2 (13:25)
[2021-04-28] MEDS: CALCIUM CARBONATE 500 MG (TUMS) TAB.CHEW PO PRN (22:04)
--- NOTE | 2021-04-28 22:52 | OPERATIVE REPORT ---
DATE OF SERVICE: 04/28/2021 PREOPERATIVE DIAGNOSIS: Mucus plug left lower lobe. POSTOPERATIVE DIAGNOSIS: Diffuse mucus bilateral left lower lobe mucus plug. PROCEDURE: Bronchoscopy with bilateral washings. SURGEON: Angela Andrade DO. ANESTHESIA: General. ESTIMATED BLOOD LOSS: None. COMPLICATIONS: None. SPECIMENS: Bilateral washings. INDICATIONS: The patient is a 70-year-old female having increasing respiratory issues. A CT scan was performed, which demonstrated likely mucus plug in the left lower lobe. The patient was discussed risks and benefits of procedure and wished to proceed. Consent was signed in the chart. DESCRIPTION OF PROCEDURE: The patient was taken to the operating suite. General anesthetic was provided. Timeout was performed. Scope was inserted through the endotracheal tube into the trachea. Main mainstem bronchi began noting fairly significant mucus. This was begun to be suctioned. Washings from the right lung were obtained. Right main stem bronchus was found down and inspected. Each lobe began suctioning significant amount of mucus until the more mucus could be visualized. The scope was then slowly retracted back and the scope was placed on the left main stem bronchus, began suctioning mucus and then began washing. In suctioning, obtained more mucus. The left lower lobe demonstrating a mucus plug, which was able to be suctioned. Again, more washings were performed and suctioned until clear. Scope was then slowly retracted back until completely removed, noting no other pathology. The patient tolerated procedure well without any complications. She was taken to recovery room in stable condition. Chest x-ray pending. Job ID: [id number] DocumentID: [id number] Dictated Date: 04/28/2021 20:07:05 Supervisor Smoke Control Date: 04/28/2021 22:51:22 Dictated By: ANGELA ANDRADE DO
[2021-04-29] MEDS: RT-ALBUTEROL/IPRATROPIUM 3 ML (DUONEB) VIAL INH SCH ×5 (02:16→21:18)
[2021-04-29] MEDS: PIPERACILLIN/TAZOBACTAM (BULK) 4.5 GM in NS (IVPB) 100 ML IV SCH ×3 (03:03→18:00)
[2021-04-29] MEDS: LACTATED RINGERS 1,000 ML IV SCH (03:09)
[2021-04-29 04:30] VITALS: BP 108/62
[2021-04-29] MEDS: LEVOTHYROXINE 100 MCG (LEVOTHROID) TAB PO SCH (05:38)
[2021-04-29] MEDS: inSUlin ASPART (NovoLOG) 1 UNIT/0.01 ML (CHARGE PER UNIT) SC SCH ×4 (05:38→20:47)
[2021-04-29] MEDS: oxyCODONE/APAP 7.5-325 MG (PERCOCET 7.5) TABLET PO SCH ×4 (05:38→23:21)
[2021-04-29 06:39] LABS: BASOPHILS % (AUTO) 0 % (0-10); EOSINOPHILS # (AUTO) 0.4 10^3/uL (0.0-0.3); EOSINOPHILS % (AUTO) 5 % (0-10); HEMATOCRIT 37 % (35-52); HEMOGLOBIN 11.1 g/dL (11.5-16.0); LYMPHOCYTES # (AUTO) 0.9 10^3/uL (1.0-4.0); LYMPHOCYTES % (AUTO) 11 % (12-44); MEAN CORPUSCULAR HEMOGLOBIN 29 pg (25-34); MEAN CORPUSCULAR HGB CONC 30 g/dL (32-36); MEAN CORPUSCULAR VOLUME 97 fL (80-99); MEAN PLATELET VOLUME 9.4 fL (9.0-12.2); MONOCYTES # (AUTO) 0.7 10^3/uL (0.0-1.0); MONOCYTES % (AUTO) 9 % (0-12); NEUTROPHILS # (AUTO) 6.1 10^3/uL (1.8-7.8); NEUTROPHILS % (AUTO) 74 % (42-75); PLATELET COUNT 255 10^3/uL (130-400); WHITE BLOOD COUNT 8.2 10^3/uL (4.3-11.0)
[2021-04-29 06:45] LABS: POTASSIUM 4.1 MMOL/L (3.6-5.0)
[2021-04-29 06:46] LABS: CALCIUM 8.9 MG/DL (8.5-10.1)
[2021-04-29 06:50] LABS: CREATININE SERUM 1.17 MG/DL (0.60-1.30)
[2021-04-29] MEDS: RT--FLUTICASONE/SALMETEROL 232-14 (AIRDUO RespiCLICK) IH SCH ×2 (07:17→21:18)
--- NOTE | 2021-04-29 07:51 | Progress Note - Surgery ---
HOLLEY LEYVA 04/29/21 0751: Subjective Date Seen by a Provider: Apr 29, 2021 Time Seen by a Provider: 07:30 Subjective/Events-last exam Patient is a 70 y/o female s/p bronchoscopy and left nephrectomy. Patient reports her breathing is much better today after the procedure but she is still SOB. She is on 3 L oxygen. She states her chest feels tight. She has a nonproductive cough. Patient also reports diffuse abdominal tenderness but it has been improving. Patient has not had a bowel movement but is passing gas. Patient is on a clear liquid diet. Patient cannot ambulate. Review of Systems General: No Chills, No Fatigue HEENT: No Head Aches, No Visual Changes Pulmonary: Dyspnea, Cough Cardiovascular: No: Chest Pain, Palpitations Gastrointestinal: Abdominal Pain; No: Nausea, Vomiting Genitourinary: No Dysuria, No Frequency Musculoskeletal: back pain (From laying down) Neurological: No: Weakness, Confusion Focused Exam Respiratory: Chest Non Tender, No Accessory Muscle Use, No Respiratory Distress Cardiovascular: Regular Rate, Rhythm, No Murmur, Normal Peripheral Pulses Capillary Refill: Less Than 3 Seconds Peripheral Pulses: 2+ Left Dors-Pedis (L), 2+ Radial Pulses (R), 2+ Radial Pulses (L) Skin: normal color, warm/dry Objective Exam Vital Signs Date Time Temp Pulse Resp B/P (MAP) Pulse Ox O2 Delivery O2 Flow Rate FiO2 04/29/21 07:17 90 Nasal Cannula 3.00 04/29/21 04:30 36.1 72 18 108/62 (77) 94 Nasal Cannula 4.00 04/29/21 02:16 96 High Flow N/C 3.00 04/29/21 01:00 72 04/28/21 23:42 36.6 88 18 114/58 (76) Nasal Cannula 4.00 04/28/21 21:08 93 High Flow N/C 4.00 04/28/21 20:59 Nasal Cannula 4.00 04/28/21 20:00 36.2 80 16 142/62 (88) 93 Nasal Cannula 4.00 04/28/21 19:00 74 04/28/21 18:44 96 High Flow N/C 4.00 04/28/21 16:10 36.0 86 16 126/80 (95) 94 Nasal Cannula 4.00 04/28/21 14:26 96 High Flow N/C 5.00 04/28/21 12:51 79 04/28/21 12:10 36.6 92 12 147/78 (101) 96 High Flow N/C 6.00 04/28/21 11:55 Nasal Cannula 6 04/28/21 11:40 36.1 16 141/74 (96) 96 Nasal Cannula 6 04/28/21 11:37 04/28/21 11:30 14 159/90 (113) 94 OxyMask 6 04/28/21 11:30 OxyMask 6 04/28/21 11:20 14 142/90 (107) 94 OxyMask 6 04/28/21 11:15 OxyMask 6 04/28/21 11:10 14 149/86 (107) 93 OxyMask 6 04/28/21 11:00 OxyMask 10 04/28/21 10:55 16 148/91 (110) 96 OxyMask 10 04/28/21 10:45 OxyMask 10 04/28/21 10:45 36.3 16 170/95 (120) 95 OxyMask 10 04/28/21 09:00 Nasal Cannula 5.00 I & O 04/29/21 07:00 Intake Total 1570 ml Output Total 1045 ml Balance 525 ml Capillary Refill : Less Than 3 Seconds General Appearance: No Apparent Distress (Laying in bed), Obese HEENT: PERRL/EOMI Neck: Normal Inspection, Non Tender Respiratory: Chest Non Tender, No Accessory Muscle Use, No Respiratory Distress Cardiovascular: Regular Rate, Rhythm, No Murmur, Normal Peripheral Pulses Peripheral Pulses: 2+ Left Dors-Pedis (L), 2+ Radial Pulses (R), 2+ Radial Pulses (L) Gastrointestinal: normal bowel sounds, tenderness (diffuse) Extremity: Normal Capillary Refill, Normal Inspection, Other (Right lower extremity amputation) Neurologic/Psychiatric: Alert, Oriented x3, No Motor/Sensory Deficits, Normal Mood/Affect, certified wellness program coordinator II-XII Norm as Tested Skin: Normal Color, Warm/Dry Lymphatic: No Adenopathy (head and neck) Results Lab Laboratory Tests 04/28/21 12:11: Glucometer 139H 04/28/21 16:09: Glucometer 133H 04/28/21 20:36: Glucometer 133H 04/29/21 05:34: Glucometer 102 04/29/21 06:24: White Blood Count 8.2, Red Blood Count 3.82, Hemoglobin 11.1L, Hematocrit 37, Mean Corpuscular Volume 97, Mean Corpuscular Hemoglobin 29, Mean Corpuscular Hemoglobin Concent 30L, Red Cell Distribution Width 15.6H, Platelet Count 255, Mean Platelet Volume 9.4, Immature Granulocyte % (Auto) 1, Neutrophils (%) (Auto) 74, Lymphocytes (%) (Auto) 11L, Monocytes (%) (Auto) 9, Eosinophils (%) (Auto) 5, Basophils (%) (Auto) 0, Neutrophils # (Auto) 6.1, Lymphocytes # (Auto) 0.9L, Monocytes # (Auto) 0.7, Eosinophils # (Auto) 0.4H, Basophils # (Auto) 0.0, Immature Granulocyte # (Auto) 0.0, Sodium Level 133L, Potassium Level 4.1, Chloride Level 96L, Carbon Dioxide Level 28, Anion Gap 9, Blood Urea Nitrogen 9, Creatinine 1.17, Estimat Glomerular Filtration Rate 46, BUN/Creatinine Ratio 8, Glucose Level 101, Calcium Level 8.9 Microbiology 04/25/21 Blood Culture - Preliminary, Resulted No growth 04/25/21 Urine Culture - Final, Complete YEAST Assessment/Plan Assessment/Plan Assessment/Plan Abdominal pain diffuse Ileus Acute respiratory failure S/P recent L Lap nephrectomy Increasing shortness of breath Left lower lung possible mucous plug Continue to manage pain without overdoing it so bowel function can be maintained. Breathing better s/p bronchoscopy. On clear liquid diet. Bowel function improving, passing gas now but still no bowel movement. JUAN REYES DO 04/29/21 1425: Subjective Time Seen by a Provider: 14:05 Subjective/Events-last exam Pt seen and examined, states she is breathing better. She has passed liquid BM's (1-2 yesterday) and passing gas; no BM today. She is hungry and wants more than liquid diet. Review of Systems General: No Chills; Fatigue Pulmonary: Dyspnea, Cough Cardiovascular: No: Chest Pain, Palpitations Gastrointestinal: Abdominal Pain; No: Nausea, Vomiting Genitourinary: No Dysuria, No Frequency Objective Exam General Appearance: No Apparent Distress (Laying in bed), Obese Respiratory: Chest Non Tender, No Accessory Muscle Use, No Respiratory Distress, Decreased Breath Sounds Cardiovascular: Regular Rate, Rhythm, No Murmur Gastrointestinal: normal bowel sounds, tenderness (diffuse) Extremity: Other (Right lower extremity amputation) Neurologic/Psychiatric: Alert, Oriented x3 Assessment/Plan Assessment/Plan Assessment/Plan Abdominal pain diffuse Ileus Acute respiratory failure S/P recent L Lap nephrectomy Increasing shortness of breath Left lower lung possible mucous plug Continue to manage pain without overdoing it so bowel function can be maintained. Breathing better s/p bronchoscopy. On clear liquid diet. Bowel function improving, passing gas now but still no bowel movement. Supervisory-Addendum Brief Verification & Attestation Participated in pt care: history, MDM, physical Personally performed: exam, history, MDM, supervision of care Care discussed with: Medical Student Procedures: n/a Verification and Attestation of Medical Student E/M Service A medical student performed and documented this service. I then reviewed and verified all information documented by the medical student and made modifications to such information, when appropriate. I personally performed a physical exam, medical decision making and then discussed any differences between the notes and made revisions as necessary to create one note. Juan Reyes , 04/29/21 , 14:25 HOLLEY LEYVA Apr 29, 2021 07:51 JUAN REYES DO Apr 29, 2021 14:25
[2021-04-29 08:00] VITALS: BP 132/65
[2021-04-29] MEDS: PANTOPRAZOLE 40 MG (PROTONIX) VIAL IV SCH (09:33)
[2021-04-29] MEDS: polyethylene glycoL POWDER 17 GM (MIRALAX) PACK PO SCH (09:33)
[2021-04-29] MEDS: meTOprolol TARTRATE 50 MG (LOPRESSOR) TAB PO SCH ×2 (09:33→20:57)
[2021-04-29] MEDS: SENNOSIDES 8.6 MG (SENOKOT) TAB PO PRN (09:33)
[2021-04-29] MEDS: DOCUSATE SODIUM 100 MG (COLACE) CAP PO SCH ×2 (09:33→20:57)
[2021-04-29 10:03] LABS: TOTAL PROTEIN 6.6 GM/DL (6.4-8.2)
[2021-04-29 10:05] LABS: BILIRUBIN,TOTAL 0.8 MG/DL (0.1-1.0)
[2021-04-29 10:09] LABS: BILIRUBIN,DIRECT 0.4 MG/DL (0.0-0.3); BILIRUBIN,INDIRECT 0.4 MG/DL
[2021-04-29] MEDS: ENOXAPARIN 40 MG/0.4 ML (LOVENOX) SYR SC SCH ×2 (11:18→20:58)
--- NOTE | 2021-04-29 11:42 | Progress Note - Hospitalist ---
DILCIA EVANS 04/29/21 1142: Subjective HPI/CC On Admission Time Seen by Provider: 08:30 Subjective/Events-last exam Patient reports LLQ abdominal pain which is improved, she does have flatus but is unable to have a bowel movement since last Thursday. She has a nonproductive cough that is being treated with Vancomycin and Zosyn. She complains of SOB that is improved. Review of Systems Pulmonary: Cough Gastrointestinal: Abdominal Pain, Constipation Genitourinary: No Dysuria, No Frequency Objective Exam Vital Signs Vital Signs Date Time Temp Pulse Resp B/P (MAP) Pulse Ox O2 Delivery O2 Flow Rate FiO2 04/29/21 10:31 36.0 88 99 36 04/29/21 10:29 Nasal Cannula 4.00 04/29/21 08:00 16 132/65 (87) Capillary Refill : Less Than 3 Seconds General Appearance: Mild Distress Respiratory: Decreased Breath Sounds Cardiovascular: Regular Rate, Rhythm Gastrointestinal: Normal Bowel Sounds Neurologic/Psychiatric: Alert, Oriented x3 Results/Procedures Lab Laboratory Tests 04/29/21 06:24 Patient resulted labs reviewed. Assessment/Plan Assessment and Plan Assess & Plan/Chief Complaint Abdominal pain Ileus Acute respiratory failure S/P recent L Lap nephrectomy shortness of breath Left lower lung possible mucous plug Ordered OT and PT, discontinue Telemetry, and start on Lovenox. Breathing better s/p bronchoscopy. On clear liquid diet. Bowel function improving, passing gas now but still no bowel movement. ANGELITA SCHULTZ DO 04/30/21 0518: Subjective HPI/CC On Admission Date Seen by Provider: Apr 29, 2021 Subjective/Events-last exam Pt doing really well Still on clear liquids, wants to advance Heplocking IV fluid Discontinued telemetry PT and OT ordered Now on four liters of oxygen Bactroban will be initiated due to the MRSA of the naries Discontinuing pulse-ox Review of Systems General: Fatigue Pulmonary: Dyspnea, Cough Gastrointestinal: Abdominal Pain Objective Exam General Appearance: No Apparent Distress, WD/WN, Chronically ill, Obese Respiratory: No Accessory Muscle Use, No Respiratory Distress, Decreased Breath Sounds Cardiovascular: Regular Rate, Rhythm Neurologic/Psychiatric: Alert, Oriented x3 Assessment/Plan Assessment and Plan Assess & Plan/Chief Complaint Assessment: Acute respiratory failure now resolved Pneumonia facility acquired Recent nephrectomy due to renal cell carcinoma Oxygen dependent Ileus Plan: Appreciate general surgery Supportive care Antibiotics PT and OT Supervisory-Addendum Brief Verification & Attestation Participated in pt care: history, MDM, physical Personally performed: exam, history, MDM, supervision of care Care discussed with: Medical Student Procedures: n/a Results interpretation: Verified all documentation Verification and Attestation of Medical Student E/M Service A medical student performed and documented this service in my presence. I reviewed and verified all information documented by the medical student and made modifications to such information, when appropriate. I personally performed the physical exam and medical decision making. Angelita Schultz, Apr 30, 2021,05:16 DILCIA EVANS Apr 29, 2021 11:42 ANGELITA SCHULTZ DO Apr 30, 2021 05:18
[2021-04-29 12:00] VITALS: BP 141/89
[2021-04-29] MEDS: MUPIROCIN 2% OINT 22 GM (BACTROBAN) TUBE NSEACH SCH ×2 (13:37→20:57)
--- NOTE | 2021-04-29 14:07 | Physical Therapy Evaluation ---
PT Evaluation-General Medical Diagnosis Admission Date Apr 25, 2021 at 18:47 Medical Diagnosis: ileus/post op pain Onset Date: Apr 25, 2021 Therapy Diagnosis Therapy Diagnosis: debility/weakness Height/Weight Height (Inches): 64.00 Weight (Pounds): 261 Precautions Precautions/Isolations: Fall Prevention, Standard Precautions Referral Physician: Mony Reason for Referral: Evaluation/Treatment Medical History Pertinent Medical History: Atrial Fib, COPD, DM, HTN, Smoking Additional Medical History right AKA/cancer Current History EMS secondary to abdominal pain (recent dismissal from s/p left nephrectomy Reviewed History: Yes Social History Home: Apartment Current Living Status: Prior Prior Level of Function SCALE: Activities may be completed with or without assistive devices. 8-Zqshgbsjbg-dohbcvw completes the activity by him/herself with no assistance from a helper. 5-Set-up or Clean-up Assistance-helper sets up or cleans up; patient completes activity. [place] assists only prior to or following the activity. 4-Supervision or Touching Assistance-helper provides verbal cues and/or touching/steadying and/or contact guard assistance as patient completes activity. Assistance may be provided throughout the activity or intermittently. 3-Partial/Moderate Assistance-helper does LESS THAN HALF the effort. [place] lifts, holds or supports trunk or limbs, but provides less than half the effort. 2-Substantial/Maximal Assistance-helper does MORE THAN HALF the effort. [place] lifts or holds trunk or limbs and provides more than half the effort. 8-Uypfaupnz-eptsup does ALL the effort. Patient does none of the effort to complete the activity. Or, the assistance of 2 or more helpers is required for the patient to complete the activity. If activity was not attempted, code reason: 7-Patient Refused. 9-Not Applicable-not attempted and the patient did not perform the activity before the current illness, exacerbation or injury. 10-Not Attempted due to Environmental Limitations-(lack of equipment, weather restraints, etc.). 88-Not Attempted due to Medical Conditions or Safety Concerns. Bed Mobility: 1 Transfers (B,C,W/C): 1 (Monica Lift in home) Gait: 9 Stairs: 9 Wheelchair Mobility: 4 Indoor Mobility (Ambulation): Not [place] Stairs: Not [place] Prior Devices Use: Manual wheelchair, Mechanical lift multiple caregivers to assist with all mobility, transfers, ADL's, etc PT Evaluation-Current Subjective Patient agrees to PT. Pain Numeric Pain Scale: 10-Worst Possible Pain Location: Lower Location Body Site: Abdomen Pain Description: Pressure, Acute Objective Patient Orientation: Normal For Age Attachments: Oxygen, Marte Catheter, IV ROM/Strength ROM Lower Extremities right AKA/left LE WFL Strength Lower Extremities left LE 3-/5 grossly Integumentary/Posture Bladder Incontinence: Marte Cath Neuromuscular (Tone, Coordination, Reflexes) grossly intact Sensory Vision: Wears Glasses Hearing: Functional Transfers Roll Left to Right (QC): 2 Sit to Lying (QC): 2 Lying to Sitting/Side of Bed(Q: 2 Sit to Stand (QC): 9 Chair/Cpq-ab-Ffdis Xfer(QC): 7 Gait Does the Patient Walk?: No and Walking Goal NOT indicated Walk 10 feet (QC): 9 Walk 50 ft with 2 Turns(QC): 9 Walk 150 ft (QC): 9 Walking 10ft/uneven surface-QC: 9 Wheelchair Training Does the Pt Use a Wheelchair?: Yes Type of Wheelchair: Manual Stairs 1 Step (curb) (QC): 9 4 Steps (QC): 9 12 Steps (QC): 9 Balance Sitting Static: Normal Sitting Dynamic: Fair Assessment/Needs 70 y.o. female, is a Monica lift PLOF with transfers. Patient sat EOB x 2 minutes before abdominal pain became too intense. RN notified of Monica Lift transfer for OOB activity. Rehab Potential: Guarded Post Rehab Potential-Barriers: compliance PT Prison Goals Chemical Worker Goals PT Chemical Worker Goals Time Frame: May 11, 2021 Roll Left & Right (QC): 3 Sit to Lying (QC): 3 Lying-Sitting on Side/Bed(QC): 3 Sit to Stand (QC): 9 Chair/Fyj-zc-Iwzev Xfer(QC): 1 PT Plan Problem List Problem List: Activity Tolerance, Functional Strength, Balance, Transfer, Bed Mobility Treatment/Plan Treatment Plan: Continue Plan of Care Treatment Plan: Bed Mobility, Education, Functional Activity Yesenia, Functional Strength, Safety, Therapeutic Exercise, Transfers Treatment Duration: May 11, 2021 Frequency: 6 times per week Estimated Hrs Per Day: .25 hour per day Patient and/or Family Agrees t: Yes Time/GCodes Time In: 1300 Time Out: 1314 Total Billed Treatment Time: 14 [facility] EN[facility] Apr 29, 2021 14:06
--- NOTE | 2021-04-29 14:22 | Anesthesia-General Post-Op ---
General Patient Condition Mental Status/LOC: Same as Preop Cardiovascular: Satisfactory Nausea/Vomiting: Absent Respiratory: Satisfactory Pain: Controlled Complications: Absent Post Op Complications Complications None Follow Up Care/Instructions Patient Instructions None needed. Anesthesia/Patient Condition Patient Condition Patient is doing well, no complaints, stable vital signs, no apparent adverse anesthesia problems. AZEEM CERDA DO Apr 29, 2021 14:22
--- NOTE | 2021-04-29 15:03 | Occupational Therapy Eval ---
OT Evaluation-General/PLF Medical Diagnosis Admission Date Apr 25, 2021 at 18:47 Medical Diagnosis: ileus/post op pain Onset Date: Apr 25, 2021 Therapy Diagnosis Therapy Diagnosis: weakness Height/Weight Height (Inches): 64.00 Weight (Pounds): 261 Precautions Precautions/Isolations: Fall Prevention, Standard Precautions Referral Physician: Mony Medical History Pertinent Medical History: Atrial Fib, COPD, DM, HTN, Smoking Additional Medical History Renal cell carcinoma, DM, HTN, HLD, AFIB, COPD, bladder sling and removal, R leg amputation, L nephrectomy Current History ED due to constipation and pain. 04/23 s/p L nephrectomy at Social History Home: Apartment Current Living Status: ADL-Prior Level of Function SCALE: Activities may be completed with or without assistive devices. 3-Xtvuuqkvoa-mqjanho completes the activity by him/herself with no assistance from a helper. 5-Set-up or Clean-up Assistance-helper sets up or cleans up; patient completes activity. [place] assists only prior to or following the activity. 4-Supervision or Touching Assistance-helper provides verbal cues and/or touching/steadying and/or contact guard assistance as patient completes activity. Assistance may be provided throughout the activity or intermittently. 3-Partial/Moderate Assistance-helper does LESS THAN HALF the effort. [place] lifts, holds or supports trunk or limbs, but provides less than half the effort. 2-Substantial/Maximal Assistance-helper does MORE THAN HALF the effort. [place] lifts or holds trunk or limbs and provides more than half the effort. 3-Gzuhmqkpc-rkjrvj does ALL the effort. Patient does none of the effort to complete the activity. Or, the assistance of 2 or more helpers is required for the patient to complete the activity. If activity was not attempted, code reason: 7-Patient Refused. 9-Not Applicable-not attempted and the patient did not perform the activity before the current illness, exacerbation or injury. 10-Not Attempted due to Environmental Limitations-(lack of equipment, weather restraints, etc.). 88-Not Attempted due to Medical Conditions or Safety Concerns. ADL PLOF Comments Pt has caregiver assistance at home, assist with all ADLs and a dina lift for all transfers. Pt indicates she has a manual w/c and able to propel w/c using her arms around the apartment. Pt completes sponge baths only, able to wash upper body (assist lower body), and assistance with all dressing parts. She requires set up assistance with eating and oral care. Self Care: Needed Some Help Functional Cognition: Independent DME/Equipment Comments dina lift, manual w/c. OT Current Status Subjective Pt in bed, agreeable to OT tx. Mental Status/Objective Patient Orientation: Person, Place, Situation Attachments: Marte Catheter, IV, Oxygen Current Glasses/Contacts: Yes Hand Dominance: Right Upper Extremity ROM WFL, BUE shoulder flexion to approx 140 degrees Upper Extremity Coordination WFL Upper Extremity Strength grossly 3+/5 ADL-Treatment Eating (QC): 6 (per pt report) Oral Hygiene (QC): 5 (per pt report) Toileting Hygiene (QC): 1 (catheter) Other Treatments Pt laying in bed. OT educated pt on purpose and benefit of OT, she verbalized understanding. Pt provided information about PLOF and home set up, and participates in UE screen. Pt requests to scoot up towards HOB, dependent assist x2. In order to increase BUE strength and activity tolerance, and to increase pulmonary function, pt completed x10 reps each of the following BUE exercises: shoulder flexion, elbow flexion, front punch, and horizontal abduction. Pt took rest breaks as needed. Post tx, pt in bed, call light in reach and all needs met. Education OT Patient Education: Correct positioning, Energy conservation, Exercise program, Home exercise program, Modified ADL techniques, Progress toward Goal/Update tx plan, Purpose of tx/functional activities, Rehab process Teaching Recipient: Patient Teaching Methods: Discussion Response to Teaching: Verbalize Understanding OT Paster Hat Lining Goals Paster Hat Lining Goals Time Frame: May 10, 2021 Eating (QC): 6 Oral Hygiene (QC): 5 Shower/Bathe Self (QC): 2 (sponge bath) Additional Goals: 1-Demonstrate ADL Tasks, 2-Verbalize Understanding, 3-ImproveStrength/[place]enia 1=Demonstrate adherence to instructed precautions during ADL tasks. 2=Patient will verbalize/demonstrate understanding of assistive devices/modifications for ADL. 3=Patient will improve strength/tolerance for activity to enable patient to perform ADL's. OT Education/Plan Problem List/Assessment Assessment: Decreased Activ Tolerance, Decreased UE Strength, Dependent Transfers, Impaired Bed Mobility, Impaired I ADL's, Impaired Self-Care Skills, Restricted Funct UE ROM Pt would benefit from skilled OT services in order to increase BUE Strength and activity tolerance in order to increase independence with w/c mobility and ADLs. Discharge Recommendations Plan/Recommendations: Continue POC Treatment Plan/Plan of Care Patient would benefit from OT for education, treatment and training to promote independence in ADL's, mobility, safety and/or upper extremity function for ADL's. Plan of Care: ADL Retraining, Functional Mobility, UE Funct Exercise/Act Treatment Duration: May 10, 2021 Frequency: 5 times per week Estimated Hrs Per Day: .25 hour per day Rehab Potential: Guarded Time/GCodes Start Time: 14:35 Stop Time: 14:52 Total Time Billed (hr/min): 17 Billed Treatment Time 1, PETRA ALLISON OT Apr 29, 2021 15:03
[2021-04-29 15:40] VITALS: BP 137/71
[2021-04-29 20:09] VITALS: BP 132/64
[2021-04-30] VITALS (8 sets, daily range): BP systolic 139–172; BP diastolic 73–105
[2021-04-30] MEDS: RT-ALBUTEROL/IPRATROPIUM 3 ML (DUONEB) VIAL INH SCH ×4 (02:14→21:32)
[2021-04-30] MEDS: PIPERACILLIN/TAZOBACTAM (BULK) 4.5 GM in NS (IVPB) 100 ML IV SCH ×3 (02:57→18:07)
[2021-04-30] MEDS: inSUlin ASPART (NovoLOG) 1 UNIT/0.01 ML (CHARGE PER UNIT) SC SCH ×4 (05:40→20:19)
[2021-04-30] MEDS: LEVOTHYROXINE 100 MCG (LEVOTHROID) TAB PO SCH (05:49)
[2021-04-30] MEDS: oxyCODONE/APAP 7.5-325 MG (PERCOCET 7.5) TABLET PO SCH ×4 (05:50→23:39)
[2021-04-30 06:25] LABS: BASOPHILS % (AUTO) 0 % (0-10); EOSINOPHILS # (AUTO) 0.5 10^3/uL (0.0-0.3); EOSINOPHILS % (AUTO) 5 % (0-10); HEMATOCRIT 41 % (35-52); HEMOGLOBIN 12.5 g/dL (11.5-16.0); LYMPHOCYTES % (AUTO) 12 % (12-44); MEAN CORPUSCULAR HEMOGLOBIN 29 pg (25-34); MEAN CORPUSCULAR HGB CONC 31 g/dL (32-36); MEAN CORPUSCULAR VOLUME 94 fL (80-99); MEAN PLATELET VOLUME 9.6 fL (9.0-12.2); MONOCYTES # (AUTO) 0.7 10^3/uL (0.0-1.0); MONOCYTES % (AUTO) 9 % (0-12); NEUTROPHILS # (AUTO) 6.1 10^3/uL (1.8-7.8); NEUTROPHILS % (AUTO) 73 % (42-75); PLATELET COUNT 221 10^3/uL (130-400); WHITE BLOOD COUNT 8.3 10^3/uL (4.3-11.0)
[2021-04-30 06:29] LABS: ALBUMIN 2.9 GM/DL (3.2-4.5)
[2021-04-30 06:30] LABS: CALCIUM 8.8 MG/DL (8.5-10.1)
[2021-04-30 06:31] LABS: TOTAL PROTEIN 6.5 GM/DL (6.4-8.2)
[2021-04-30 06:33] LABS: BILIRUBIN,TOTAL 0.6 MG/DL (0.1-1.0)
[2021-04-30 06:35] LABS: CREATININE SERUM 1.17 MG/DL (0.60-1.30)
--- NOTE | 2021-04-30 08:31 | Progress Note - Surgery ---
HOLLEY LEYVA 04/30/21 0831: Subjective Date Seen by a Provider: Apr 30, 2021 Time Seen by a Provider: 07:40 Subjective/Events-last exam Patient is a 70 y/o female; surgery was consulted for ileus. Bronchosopy was performed Thursday and patient reports her breathing is even better today than yesterday. Patient reports diffuse abdominal pain and a large amount of flatus without a bowel movement. Patient says her abdominal tenderness is the same as yesterday and rates it at a 6-7/10. Patient says she is on stool softeners and the pain will wax and wane but it is sharp when it occurs. Review of Systems General: No Chills, No Fatigue HEENT: No Head Aches, No Visual Changes Pulmonary: No Dyspnea; Cough Cardiovascular: No: Chest Pain, Palpitations Gastrointestinal: Abdominal Pain, Constipation; No: Nausea, Vomiting Genitourinary: No Dysuria, No Frequency Musculoskeletal: back pain Neurological: No: Weakness, Confusion Focused Exam Respiratory: Chest Non Tender, Lungs Clear, Normal Breath Sounds, No Accessory Muscle Use, No Respiratory Distress Cardiovascular: Regular Rate, Rhythm, No Murmur, Normal Peripheral Pulses Peripheral Pulses: 2+ Left Dors-Pedis (L), 2+ Radial Pulses (R), 2+ Radial Pulses (L) Skin: normal color, warm/dry Objective Exam Vital Signs Date Time Temp Pulse Resp B/P (MAP) Pulse Ox O2 Delivery O2 Flow Rate FiO2 04/30/21 07:54 35.6 83 22 143/81 (101) 96 High Flow N/C 3.00 04/30/21 04:00 36.5 89 19 156/79 (104) 93 High Flow N/C 3.00 04/30/21 02:14 96 Nasal Cannula 3.00 04/30/21 00:00 36.5 83 18 139/82 (101) 94 High Flow N/C 3.00 04/29/21 21:18 96 Nasal Cannula 3.00 04/29/21 20:57 Nasal Cannula 4.00 04/29/21 20:09 35.9 80 20 132/64 (86) 93 High Flow N/C 3.00 04/29/21 15:40 35.6 84 20 137/71 (93) 94 High Flow N/C 4.00 04/29/21 14:29 94 Nasal Cannula 4.00 04/29/21 12:00 36.0 88 16 141/89 (106) 93 High Flow N/C 4.00 04/29/21 10:31 36.0 88 99 36 04/29/21 10:29 99 Nasal Cannula 4.00 04/29/21 09:00 Nasal Cannula 4.00 I & O 04/30/21 07:00 Intake Total 2775 ml Output Total 2450 ml Balance 325 ml Capillary Refill : Less Than 3 Seconds General Appearance: No Apparent Distress, WD/WN, Chronically ill, Obese HEENT: PERRL/EOMI Neck: Normal Inspection, Non Tender Respiratory: Chest Non Tender, Lungs Clear, Normal Breath Sounds, No Accessory Muscle Use, No Respiratory Distress Cardiovascular: Regular Rate, Rhythm, No Murmur, Normal Peripheral Pulses Peripheral Pulses: 2+ Left Dors-Pedis (L), 2+ Radial Pulses (R), 2+ Radial Pulses (L) Gastrointestinal: normal bowel sounds, soft, tenderness (diffuse) Extremity: Normal Capillary Refill, Non Tender, No Calf Tenderness, Other (Right lower extremity amputation) Neurologic/Psychiatric: Alert, Oriented x3, No Motor/Sensory Deficits, Normal Mood/Affect, plate mill mill hand II-XII Norm as Tested Skin: Normal Color, Warm/Dry Lymphatic: No Adenopathy (head and neck) Results Lab Laboratory Tests 04/29/21 11:05: Glucometer 121H 04/29/21 16:28: Glucometer 121H 04/29/21 19:48: Glucometer 176H 04/30/21 05:30: Glucometer 114H 04/30/21 06:06: White Blood Count 8.3, Red Blood Count 4.30, Hemoglobin 12.5, Hematocrit 41, Mean Corpuscular Volume 94, Mean Corpuscular Hemoglobin 29, Mean Corpuscular Hemoglobin Concent 31L, Red Cell Distribution Width 15.2H, Platelet Count 221, Mean Platelet Volume 9.6, Immature Granulocyte % (Auto) 1, Neutrophils (%) (Auto) 73, Lymphocytes (%) (Auto) 12, Monocytes (%) (Auto) 9, Eosinophils (%) (Auto) 5, Basophils (%) (Auto) 0, Neutrophils # (Auto) 6.1, Lymphocytes # (Auto) 1.0, Monocytes # (Auto) 0.7, Eosinophils # (Auto) 0.5H, Basophils # (Auto) 0.0, Immature Granulocyte # (Auto) 0.0, Sodium Level 135, Potassium Level 4.0, Chloride Level 98, Carbon Dioxide Level 25, Anion Gap 12, Blood Urea Nitrogen 9, Creatinine 1.17, Estimat Glomerular Filtration Rate 46, BUN/Creatinine Ratio 8, Glucose Level 110H, Calcium Level 8.8, Corrected Calcium 9.7, Total Bilirubin 0.6, Aspartate Amino Transf (AST/SGOT) 17, Alanine Aminotransferase (ALT/SGPT) 9, Alkaline Phosphatase 56, Total Protein 6.5, Albumin 2.9L Microbiology 04/28/21 Gram Stain - Final, Resulted 04/28/21 Bronchial Culture, Resulted Pending 04/28/21 Fungal Culture 1, Resulted Pending 04/25/21 Blood Culture - Preliminary, Resulted No growth 04/25/21 Urine Culture - Final, Complete YEAST Assessment/Plan Assessment/Plan Assessment/Plan Abdominal pain diffuse Ileus Acute respiratory failure S/P recent L Lap nephrectomy Increasing shortness of breath Left lower lung possible mucous plug Continue to manage pain without overdoing it so bowel function can be maintained. Breathing better s/p bronchoscopy. On clear liquid diet. Bowel f unction improving, passing gas now but still no bowel movement. JUAN REYES DO 04/30/21 1007: Subjective Time Seen by a Provider: 08:56 Subjective/Events-last exam Pt seen and examined, states she feels fine today. Still has not had BM, but is passing gas and tolerating clears. Review of Systems General: No Chills, No Fatigue Pulmonary: No Dyspnea; Cough Cardiovascular: No: Chest Pain, Palpitations Gastrointestinal: Abdominal Pain, Constipation; No: Nausea, Vomiting Objective Exam General Appearance: No Apparent Distress, Chronically ill, Obese (morbidly) HEENT: PERRL/EOMI Respiratory: Lungs Clear, Normal Breath Sounds, No Accessory Muscle Use, No Respiratory Distress Cardiovascular: Regular Rate, Rhythm, No Murmur Gastrointestinal: soft, tenderness (diffuse) Extremity: Other (Right lower extremity amputation) Assessment/Plan Assessment/Plan Assessment/Plan Abdominal pain diffuse - minimal Ileus Acute respiratory failure S/P recent L Lap nephrectomy Increasing shortness of breath Left lower lung possible mucous plug Continue pain control and wait on BM; once BM's more regular would start soft diet. Breathing better s/p bronchoscopy. On clear liquid diet. Bowel function about the same; passing gas. Supervisory-Addendum Brief Verification & Attestation Participated in pt care: history, MDM, physical Personally performed: exam, history, MDM, supervision of care Care discussed with: Medical Student Procedures: n/a Verification and Attestation of Medical Student E/M Service A medical student performed and documented this service. I then reviewed and verified all information documented by the medical student and made modifications to such information, when appropriate. I personally performed a physical exam, medical decision making and then discussed any differences b etween the notes and made revisions as necessary to create one note. Juan Reyes , 04/30/21 , 10:06 HOLLEY LEYVA Apr 30, 2021 08:31 JUAN REYES DO Apr 30, 2021 10:07
[2021-04-30] MEDS: meTOprolol TARTRATE 50 MG (LOPRESSOR) TAB PO SCH ×2 (08:52→20:23)
[2021-04-30] MEDS: DOCUSATE SODIUM 100 MG (COLACE) CAP PO SCH ×2 (08:52→20:23)
[2021-04-30] MEDS: MUPIROCIN 2% OINT 22 GM (BACTROBAN) TUBE NSEACH SCH ×2 (08:52→20:23)
[2021-04-30] MEDS: PANTOPRAZOLE 40 MG (PROTONIX) VIAL IV SCH (08:52)
[2021-04-30] MEDS: polyethylene glycoL POWDER 17 GM (MIRALAX) PACK PO SCH (08:53)
[2021-04-30] MEDS: ENOXAPARIN 40 MG/0.4 ML (LOVENOX) SYR SC SCH ×2 (08:53→21:26)
[2021-04-30] MEDS: RT--FLUTICASONE/SALMETEROL 232-14 (AIRDUO RespiCLICK) IH SCH ×2 (10:01→21:32)
--- NOTE | 2021-04-30 11:06 | Progress Note - Hospitalist ---
DILCIA EVANS 04/30/21 1106: Subjective HPI/CC On Admission Time Seen by Provider: 08:15 Subjective/Events-last exam Pt doing really well with no problems with SOB. Is on 3L/min via N/C at 93% O2 saturation. Still on clear liquids and was given approval from securities and real estate director to advance when medically cleared. Abdominal pain is the same as yesterday, flatus with no bowel movements. Heplocking IV fluid Discontinued telemetry PT and OT ordered Bactroban will be initiated due to the MRSA of the naries Objective Exam Vital Signs Vital Signs Date Time Temp Pulse Resp B/P (MAP) Pulse Ox O2 Delivery O2 Flow Rate FiO2 04/30/21 10:01 94 Nasal Cannula 3.00 04/30/21 07:54 35.6 83 22 143/81 (101) 04/29/21 10:31 36 Capillary Refill : Less Than 3 Seconds General Appearance: No Apparent Distress, WD/WN, Chronically ill Respiratory: No Accessory Muscle Use, No Respiratory Distress, Decreased Breath Sounds Cardiovascular: Regular Rate, Rhythm Neurologic/Psychiatric: Alert, Oriented x3 Results/Procedures Lab Laboratory Tests 04/30/21 06:06 Patient resulted labs reviewed. Assessment/Plan Assessment and Plan Assess & Plan/Chief Complaint Assessment: Acute respiratory failure now resolved Pneumonia facility acquired Recent nephrectomy due to renal cell carcinoma Oxygen dependent Ileus Plan: Appreciate general surgery Supportive care Antibiotics PT and OT 1000ml Fluid restriction ANGELITA SCHULTZ DO 05/01/21 0520: Subjective HPI/CC On Admission Date Seen by Provider: Apr 30, 2021 Subjective/Events-last exam Pt doing much better Pain is better No BM yet Passing gas Three liters of oxygen, desatting 93% Wants to advance diet Review of Systems Pulmonary: Dyspnea Gastrointestinal: Abdominal Pain Objective Exam General Appearance: No Apparent Distress, WD/WN, Chronically ill, Obese Respiratory: No Accessory Muscle Use, No Respiratory Distress, Decreased Breath Sounds Cardiovascular: Regular Rate, Rhythm Neurologic/Psychiatric: Alert, Oriented x3 Assessment/Plan Assessment and Plan Assess & Plan/Chief Complaint Advance diet per surgery recommendations Oxygen supplementation PT and OT Supervisory-Addendum Brief Verification & Attestation Participated in pt care: history, MDM, physical Personally performed: exam, history, MDM, supervision of care Care discussed with: Medical Student Procedures: n/a Results interpretation: Verified all documentation Verification and Attestation of Medical Student E/M Service A medical student performed and documented this service in my presence. I reviewed and verified all information documented by the medical student and made modifications to such information, when appropriate. I personally performed the physical exam and medical decision making. Angelita Schultz, May 01, 2021,05:19 DILCIA EVANS Apr 30, 2021 11:06 ANGELITA SCHULTZ DO May 01, 2021 05:20
--- NOTE | 2021-04-30 11:44 | Occupational Ther Daily Note ---
OT Current Status-Daily Note ADL-Treatment Therapy Code Descriptions/Definitions Functional Adin Measure: 0=Not Assessed/NA 4=Minimal Assistance 1=Total Assistance 5=Supervision or Setup 2=Maximal Assistance 6=Modified Adin 3=Moderate Assistance 7=Complete IndependenceSCALE: Activities may be completed with or without assistive devices. 4-Tlupadyypc-jktocuz completes the activity by him/herself with no assistance from a helper. 5-Set-up or Clean-up Assistance-helper sets up or cleans up; patient completes activity. [place] assists only prior to or following the activity. 4-Supervision or Touching Assistance-helper provides verbal cues and/or touching/steadying and/or contact guard assistance as patient completes activity. Assistance may be provided throughout the activity or intermittently. 3-Partial/Moderate Assistance-helper does LESS THAN HALF the effort. [place] lifts, holds or supports trunk or limbs, but provides less than half the effort. 2-Substantial/Maximal Assistance-helper does MORE THAN HALF the effort. [place] lifts or holds trunk or limbs and provides more than half the effort. 3-Fhlnxwkwh-jnmahe does ALL the effort. Patient does none of the effort to complete the activity. Or, the assistance of 2 or more helpers is required for the patient to complete the activity. If activity was not attempted, code reason: 7-Patient Refused. 9-Not Applicable-not attempted and the patient did not perform the activity before the current illness, exacerbation or injury. 10-Not Attempted due to Environmental Limitations-(lack of equipment, weather restraints, etc.). 88-Not Attempted due to Medical Conditions or Safety Concerns. OT Mcc Goals Alterations Expert Goals Time Frame: May 10, 2021 Eating (QC): 6 Oral Hygiene (QC): 5 Shower/Bathe Self (QC): 2 (sponge bath) Additional Goals: 1-Demonstrate ADL Tasks, 2-Verbalize Understanding, 3- ImproveStrength/[place] 1=Demonstrate adherence to instructed precautions during ADL tasks. 2=Patient will verbalize/demonstrate understanding of assistive d evices/modifications for ADL. 3=Patient will improve strength/tolerance for activity to enable patient to perform ADL's. OT Education/Plan Problem List/Assessment Pt would benefit from skilled OT services in order to increase BUE Strength and activity tolerance in order to increase independence with w/c mobility and ADLs. Treatment Plan/Plan of Care Patient would benefit from OT for education, treatment and training to promote independence in ADL's, mobility, safety and/or upper extremity function for ADL's. Plan of Care: ADL Retraining, Functional Mobility, UE Funct Exercise/Act Treatment Duration: May 10, 2021 Frequency: 5 times per week Estimated Hrs Per Day: .25 hour per day Rehab Potential: Guarded PETRA WHITEHEAD OT Apr 30, 2021 11:44
--- NOTE | 2021-04-30 11:55 | Physical Therapy Daily Note ---
PT Daily Note-Current Subjective Patient agrees to PT. Pain Numeric Pain Scale: 10-Worst Possible Pain Location: Medial, Lower Location Body Site: Abdomen Pain Description: Pressure Mental Status Patient Orientation: Normal For Age Attachments: Oxygen, Marte Catheter Transfers SCALE: Activities may be completed with or without assistive devices. 4-Zyydfwdhxu-sboxzln completes the activity by him/herself with no assistance from a helper. 5-Set-up or Clean-up Assistance-helper sets up or cleans up; patient completes activity. [place] assists only prior to or following the activity. 4-Supervision or Touching Assistance-helper provides verbal cues and/or touching/steadying and/or contact guard assistance as patient completes activity. Assistance may be provided throughout the activity or intermittently. 3-Partial/Moderate Assistance-helper does LESS THAN HALF the effort. Walker lifts, holds or supports trunk or limbs, but provides less than half the effort. 2-Substantial/Maximal Assistance-helper does MORE THAN HALF the effort. Walker lifts or holds trunk or limbs and provides more than half the effort. 4-Mvkeyjwzo-sbdrjc does ALL the effort. Patient does none of the effort to complete the activity. Or, the assistance of 2 or more helpers is required for the patient to complete the activity. If activity was not attempted, code reason: 7-Patient Refused. 9-Not Applicable-not attempted and the patient did not perform the activity before the current illness, exacerbation or injury. 10-Not Attempted due to Environmental Limitations-(lack of equipment, weather restraints, etc.). 88-Not Attempted due to Medical Conditions or Safety Concerns. Roll Left & Right (QC): 1 (x 2) Sit to Lying (QC): 1 (Monica lift) Lying to Sitting/Side of Bed(Q: 1 (Monica lift) Sit to Stand (QC): 9 Chair/Yso-oe-Gcexk Xfer(QC): 1 (Monica lift) Assessment Patient is up in w/c with needs met. Patient tolerated treatment well. PT Correction Goals Correction Goals PT Cow Buyer Goals Time Frame: May 11, 2021 Roll Left & Right (QC): 3 Sit to Lying (QC): 3 Lying-Sitting on Side/Bed(QC): 3 Sit to Stand (QC): 9 Chair/Pgu-ju-Vtvng Xfer(QC): 1 PT Plan Treatment/Plan Treatment Plan: Continue Plan of Care Treatment Plan: Bed Mobility, Education, Functional Activity Yesenia, Functional Strength, Safety, Therapeutic Exercise, Transfers Treatment Duration: May 11, 2021 Frequency: 6 times per week Estimated Hrs Per Day: .25 hour per day Patient and/or Family Agrees t: Yes Time/GCodes Time In: 1013 Time Out: 1041 Total Billed Treatment Time: 28 Total Billed Treatment 1 visit FA x 2 28 min ENEDINA RYAN PT Apr 30, 2021 11:55
--- NOTE | 2021-04-30 12:53 | Occupational Ther Daily Note ---
OT Current Status-Daily Note Subjective Pt was seated in w/c upon OT entry into room. Pt stated she was in pain but ready to complete an exercise activity in room. Pt stated she needed to work through the pain in-order to feel better. Pain Numeric Pain Scale: 7 Location Body Site: Abdomen Mental Status/Objective Patient Orientation: Person, Place, Situation Attachments: Marte Catheter, IV, Oxygen ADL-Treatment Therapy Code Descriptions/Definitions Functional [place] Measure: 0=Not Assessed/NA 4=Minimal Assistance 1=Total Assistance 5=Supervision or Setup 2=Maximal Assistance 6=Modified [place] 3=Moderate Assistance 7=Complete IndependenceSCALE: Activities may be completed with or without assistive devices. 5-Uyyftztldt-yqrwuyr completes the activity by him/herself with no assistance from a helper. 5-Set-up or Clean-up Assistance-helper sets up or cleans up; patient completes activity. [place] assists only prior to or following the activity. 4-Supervision or Touching Assistance-helper provides verbal cues and/or touching/steadying and/or contact guard assistance as patient completes activity. Assistance may be provided throughout the activity or intermittently. 3-Partial/Moderate Assistance-helper does LESS THAN HALF the effort. [place] lifts, holds or supports trunk or limbs, but provides less than half the effort. 2-Substantial/Maximal Assistance-helper does MORE THAN HALF the effort. [place] lifts or holds trunk or limbs and provides more than half the effort. 7-Ncxsddykm-mcycog does ALL the effort. Patient does none of the effort to complete the activity. Or, the assistance of 2 or more helpers is required for the patient to complete the activity. If activity was not attempted, code reason: 7-Patient Refused. 9-Not Applicable-not attempted and the patient did not perform the activity before the current illness, exacerbation or injury. 10-Not Attempted due to Environmental Limitations-(lack of equipment, weather restraints, etc.). 88-Not Attempted due to Medical Conditions or Safety Concerns. Other Treatment Pt was seated in w/c upon OT entry into room. Pt participated while seated w/ T- band exercises utilizing Red (moderate resistance) band for UE strength and endurance for ADL function. Pt completed one round of 10 reps w/ SBA in RUE shd abd, shd ext rotation, and shd horizontal abd,. Pt completed one round of 10 reps in RUE elbow flex and elbow ext w/ Min A. Pt was seated in w/c, call light in reach, and all needs met. Education OT Patient Education: Correct positioning, Energy conservation, Exercise program, Home exercise program, Modified ADL techniques, Progress toward Goal/Update tx plan, Purpose of tx/functional activities Teaching Recipient: Patient Teaching Methods: Discussion Response to Teaching: Verbalize Understanding OT Civil Process Server Goals Civil Process Server Goals Time Frame: May 10, 2021 Eating (QC): 6 Oral Hygiene (QC): 5 Shower/Bathe Self (QC): 2 (sponge bath) Additional Goals: 1-Demonstrate ADL Tasks, 2-Verbalize Understanding, 3- ImproveStrength/[place]enia 1=Demonstrate adherence to instructed precautions during ADL tasks. 2=Patient will verbalize/demonstrate understanding of assistive devices/mod ifications for ADL. 3=Patient will improve strength/tolerance for activity to enable patient to perform ADL's. OT Education/Plan Problem List/Assessment Assessment: Decreased Activ Tolerance, Decreased UE Strength, Impaired Funct Balance, Impaired I ADL's, Impaired Self-Care Skills, Restricted Funct UE ROM Pt would benefit from skilled OT services in order to increase BUE Strength and activity tolerance in order to increase independence with w/c mobility and ADLs. Discharge Recommendations Plan/Recommendations: Continue POC Treatment Plan/Plan of Care Patient would benefit from OT for education, treatment and training to promote independence in ADL's, mobility, safety and/or upper extremity function for ADL's. Plan of Care: ADL Retraining, Functional Mobility, UE Funct Exercise/Act Treatment Duration: May 10, 2021 Frequency: 5 times per week Estimated Hrs Per Day: .25 hour per day Rehab Potential: Guarded Time/GCodes Start Time: 10:42 Stop Time: 10:52 Total Time Billed (hr/min): 10 Billed Treatment Time 1, EX PETRA WHITEHEAD OT Apr 30, 2021 12:53
[2021-04-30] MEDS: SENNOSIDES 8.6 MG (SENOKOT) TAB PO PRN (20:32)
[2021-05-01] MEDS: PIPERACILLIN/TAZOBACTAM (BULK) 4.5 GM in NS (IVPB) 100 ML IV SCH ×3 (02:58→18:45)
[2021-05-01 03:00] VITALS: BP 151/69
[2021-05-01] MEDS: RT-ALBUTEROL/IPRATROPIUM 3 ML (DUONEB) VIAL INH SCH ×4 (03:29→20:17)
[2021-05-01] MEDS: LEVOTHYROXINE 100 MCG (LEVOTHROID) TAB PO SCH (05:59)
[2021-05-01] MEDS: oxyCODONE/APAP 7.5-325 MG (PERCOCET 7.5) TABLET PO SCH ×4 (06:00→23:50)
[2021-05-01] MEDS: inSUlin ASPART (NovoLOG) 1 UNIT/0.01 ML (CHARGE PER UNIT) SC SCH ×4 (06:00→20:38)
[2021-05-01 06:01] LABS: BASOPHILS % (AUTO) 0 % (0-10); EOSINOPHILS # (AUTO) 0.4 10^3/uL (0.0-0.3); EOSINOPHILS % (AUTO) 6 % (0-10); HEMATOCRIT 38 % (35-52); HEMOGLOBIN 11.8 g/dL (11.5-16.0); LYMPHOCYTES # (AUTO) 0.8 10^3/uL (1.0-4.0); LYMPHOCYTES % (AUTO) 12 % (12-44); MEAN CORPUSCULAR HEMOGLOBIN 30 pg (25-34); MEAN CORPUSCULAR HGB CONC 31 g/dL (32-36); MEAN CORPUSCULAR VOLUME 95 fL (80-99); MEAN PLATELET VOLUME 9.5 fL (9.0-12.2); MONOCYTES # (AUTO) 0.6 10^3/uL (0.0-1.0); MONOCYTES % (AUTO) 8 % (0-12); NEUTROPHILS # (AUTO) 5.3 10^3/uL (1.8-7.8); NEUTROPHILS % (AUTO) 73 % (42-75); PLATELET COUNT 261 10^3/uL (130-400); WHITE BLOOD COUNT 7.2 10^3/uL (4.3-11.0)
[2021-05-01 06:11] LABS: ALBUMIN 2.8 GM/DL (3.2-4.5); POTASSIUM 3.9 MMOL/L (3.6-5.0)
[2021-05-01 06:12] LABS: CALCIUM 8.9 MG/DL (8.5-10.1)
[2021-05-01 06:13] LABS: TOTAL PROTEIN 6.4 GM/DL (6.4-8.2)
[2021-05-01 06:15] LABS: BILIRUBIN,TOTAL 0.5 MG/DL (0.1-1.0)
[2021-05-01 06:17] LABS: CREATININE SERUM 1.18 MG/DL (0.60-1.30)
[2021-05-01] MEDS: RT--FLUTICASONE/SALMETEROL 232-14 (AIRDUO RespiCLICK) IH SCH ×2 (07:37→20:17)
--- NOTE | 2021-05-01 07:39 | Progress Note - Surgery ---
HOLLEY LEYVA 05/01/21 0739: Subjective Date Seen by a Provider: May 01, 2021 Time Seen by a Provider: 07:20 Subjective/Events-last exam Patient reports more abdominal pain than yesterday. Patient has not had a bowel movement but reports flatus. Patient reports she strained really hard yesterday to have a bowel movement and her abdomen is sore. Yesterday she got out of bed with PT and got into her wheelchair. Patient reports her breathing is better again today; she is on 3 L oxygen this morning. Review of Systems General: No Chills, No Fatigue HEENT: No Head Aches, No Visual Changes Pulmonary: Dyspnea, Cough Cardiovascular: No: Chest Pain, Palpitations Gastrointestinal: Abdominal Pain, Constipation; No: Nausea, Vomiting Genitourinary: No Dysuria, No Frequency Musculoskeletal: back pain (From laying in bed) Neurological: No: Weakness, Confusion Focused Exam Respiratory: Chest Non Tender, No Accessory Muscle Use, No Respiratory Distress, Decreased Breath Sounds Cardiovascular: Regular Rate, Rhythm, No Murmur, Normal Peripheral Pulses Peripheral Pulses: 2+ Left Dors-Pedis (L), 2+ Radial Pulses (R), 2+ Radial Pulses (L) Skin: normal color, warm/dry Objective Exam Vital Signs Date Time Temp Pulse Resp B/P (MAP) Pulse Ox O2 Delivery O2 Flow Rate FiO2 05/01/21 03:29 94 Nasal Cannula 3.00 05/01/21 03:00 36.4 86 18 151/69 (96) 92 High Flow N/C 3.00 04/30/21 23:36 36.5 75 18 160/82 (108) 95 High Flow N/C 3.00 04/30/21 21:32 95 Nasal Cannula 3.00 04/30/21 20:20 High Flow N/C 3.00 04/30/21 20:00 35.8 80 18 166/73 (104) 96 High Flow N/C 3.00 04/30/21 18:25 81 145/84 (104) 04/30/21 16:00 35.9 86 20 172/84 (113) 95 High Flow N/C 3.00 04/30/21 15:22 94 Nasal Cannula 3.00 04/30/21 11:39 36.0 84 21 165/105 (125) 96 High Flow N/C 3.00 04/30/21 10:01 94 Nasal Cannula 3.00 04/30/21 08:00 Nasal Cannula 3.00 04/30/21 07:54 35.6 83 22 143/81 (101) 96 High Flow N/C 3.00 I & O 05/01/21 07:00 Intake Total 3270 ml Output Total 2825 ml Balance 445 ml Capillary Refill : Less Than 3 Seconds General Appearance: No Apparent Distress, WD/WN, Chronically ill, Obese HEENT: PERRL/EOMI Neck: Normal Inspection, Non Tender Respiratory: Chest Non Tender, No Accessory Muscle Use, No Respiratory Distress, Decreased Breath Sounds Cardiovascular: Regular Rate, Rhythm, No Murmur, Normal Peripheral Pulses Peripheral Pulses: 2+ Left Dors-Pedis (L), 2+ Radial Pulses (R), 2+ Radial Pulses (L) Gastrointestinal: soft, abnormal bowel sounds (Decreased bowel sounds), tenderness (RUQ and RLQ) Extremity: Normal Capillary Refill, No Calf Tenderness, Other (Right lower extremity amputation) Neurologic/Psychiatric: Alert, Oriented x3, No Motor/Sensory Deficits, Normal Mood/Affect, meal cooker II-XII Norm as Tested Skin: Normal Color, Warm/Dry Lymphatic: No Adenopathy (head and neck) Results Lab Laboratory Tests 04/30/21 10:43: Glucometer 154H 04/30/21 16:44: Glucometer 144H 04/30/21 19:59: Glucometer 172H 05/01/21 05:45: White Blood Count 7.2, Red Blood Count 3.98, Hemoglobin 11.8, Hematocrit 38, Mean Corpuscular Volume 95, Mean Corpuscular Hemoglobin 30, Mean Corpuscular Hemoglobin Concent 31L, Red Cell Distribution Width 15.1H, Platelet Count 261, Mean Platelet Volume 9.5, Immature Granulocyte % (Auto) 0, Neutrophils (%) (Auto) 73, Lymphocytes (%) (Auto) 12, Monocytes (%) (Auto) 8, Eosinophils (%) (Auto) 6, Basophils (%) (Auto) 0, Neutrophils # (Auto) 5.3, Lymphocytes # (Auto) 0.8L, Monocytes # (Auto) 0.6, Eosinophils # (Auto) 0.4H, Basophils # (Auto) 0.0, Immature Granulocyte # (Auto) 0.0, Sodium Level 135, Potassium Level 3.9, Chloride Level 97L, Carbon Dioxide Level 28, Anion Gap 10, Blood Urea Nitrogen 8, Creatinine 1.18, Estimat Glomerular Filtration Rate 46, BUN/Creatinine Ratio 7, Glucose Level 123H, Calcium Level 8.9, Corrected Calcium 9.9, Total Bilirubin 0.5, Aspartate Amino Transf (AST/SGOT) 16, Alanine Aminotransferase (ALT/SGPT) 9, Alkaline Phosphatase 62, Total Protein 6.4, Albumin 2.8L Microbiology 04/28/21 Mycobacterial Culture - Preliminary, Resulted 04/25/21 Blood Culture - Preliminary, Resulted No growth 04/25/21 Urine Culture - Final, Complete YEAST Assessment/Plan Assessment/Plan Assessment/Plan Abdominal pain diffuse - minimal Ileus Acute respiratory failure S/P recent L Lap nephrectomy Increasing shortness of breath Left lower lung possible mucous plug Continue pain control and wait on BM; once BM's more regular would start soft diet. Breathing better s/p bronchoscopy. On clear liquid diet. Bowel function about the same; passing gas. JUAN REYES DO 05/01/21 1311: Subjective Time Seen by a Provider: 12:18 Subjective/Events-last exam Pt seen and examined, states has some abdominal pain and is passing gas; but no BM. Review of Systems General: No Chills HEENT: No Visual Changes Pulmonary: Dyspnea, Cough Cardiovascular: No: Chest Pain, Palpitations Gastrointestinal: Abdominal Pain, Constipation; No: Nausea, Vomiting Objective Exam General Appearance: No Apparent Distress, Chronically ill, Obese HEENT: PERRL/EOMI Respiratory: No Accessory Muscle Use, No Respiratory Distress, Decreased Breath Sounds Cardiovascular: Regular Rate, Rhythm, No Murmur Gastrointestinal: soft, abnormal bowel sounds (Decreased bowel sounds), tenderness (RUQ and RLQ) Assessment/Plan Assessment/Plan Assessment/Plan Abdominal pain diffuse - minimal Ileus Acute respiratory failure S/P recent L Lap nephrectomy Increasing shortness of breath Left lower lung possible mucous plug Will try Dulcolax suppositories, pt will have very hard time with return of bowel function because she does not walk. Will hold liquids for now and continue pain control and wait on BM; once BM's more regular would start soft diet. Breathing better s/p bronchoscopy. Supervisory-Addendum Brief Verification & Attestation Participated in pt care: history, MDM, physical Personally performed: exam, history, MDM, supervision of care Care discussed with: Medical Student Procedures: n/a Verification and Attestation of Medical Student E/M Service A medical student performed and documented this service. I then reviewed and verified all information documented by the medical student and made modificati ons to such information, when appropriate. I personally performed a physical exam, medical decision making and then discussed any differences between the notes and made revisions as necessary to create one note. Juan Reyes , 05/01/21 , 13:11 HOLLEY LEYVA May 01, 2021 07:39 JUAN REYES DO May 01, 2021 13:11
--- NOTE | 2021-05-01 07:44 | Diagnostic Imaging Report ---
Indication: Lower respiratory infection Portable chest 4:23 AM Patient is rotated to the left. Heart size is within normal limits. The right lung is clear. Some left basal infiltrate or atelectasis cannot be excluded. IMPRESSION: Questionable left basilar consolidation. Images somewhat compromised because of patient rotation. Dictated by: Dictated on workstation # [id number]
[2021-05-01 08:19] VITALS: BP 147/93
[2021-05-01] MEDS: DOCUSATE SODIUM 100 MG (COLACE) CAP PO SCH ×2 (08:53→19:16)
[2021-05-01] MEDS: MUPIROCIN 2% OINT 22 GM (BACTROBAN) TUBE NSEACH SCH ×2 (08:53→19:16)
[2021-05-01] MEDS: polyethylene glycoL POWDER 17 GM (MIRALAX) PACK PO SCH (08:53)
[2021-05-01] MEDS: PANTOPRAZOLE 40 MG (PROTONIX) VIAL IV SCH (08:53)
[2021-05-01] MEDS: meTOprolol TARTRATE 50 MG (LOPRESSOR) TAB PO SCH ×2 (08:53→19:16)
[2021-05-01] MEDS: SENNOSIDES 8.6 MG (SENOKOT) TAB PO PRN (08:54)
[2021-05-01] MEDS: ENOXAPARIN 40 MG/0.4 ML (LOVENOX) SYR SC SCH ×2 (08:59→20:50)
--- NOTE | 2021-05-01 10:23 | Physical Therapy Daily Note ---
PT Daily Note-Current Subjective Patient in bed pre tx, agrees to PT, has 9/10 pain in abdomen, states she knows she needs to get up. Appearance Patient in bed post tx, with nurse call, phone, tray, all needs met. Mental Status Patient Orientation: Person, Place, Situation Attachments: Oxygen, Marte Catheter Transfers SCALE: Activities may be completed with or without assistive devices. 8-Knawwfusyh-vnbfymg completes the activity by him/herself with no assistance from a helper. 5-Set-up or Clean-up Assistance-helper sets up or cleans up; patient completes activity. [place] assists only prior to or following the activity. 4-Supervision or Touching Assistance-helper provides verbal cues and/or touching/steadying and/or contact guard assistance as patient completes activity. Assistance may be provided throughout the activity or intermittently. 3-Partial/Moderate Assistance-helper does LESS THAN HALF the effort. [place] lifts, holds or supports trunk or limbs, but provides less than half the effort. 2-Substantial/Maximal Assistance-helper does MORE THAN HALF the effort. [place] lifts or holds trunk or limbs and provides more than half the effort. 6-Ivslnqdxu-idcwav does ALL the effort. Patient does none of the effort to complete the activity. Or, the assistance of 2 or more helpers is required for the patient to complete the activity. If activity was not attempted, code reason: 7-Patient Refused. 9-Not Applicable-not attempted and the patient did not perform the activity before the current illness, exacerbation or injury. 10-Not Attempted due to Environmental Limitations-(lack of equipment, weather restraints, etc.). 88-Not Attempted due to Medical Conditions or Safety Concerns. Roll Left & Right (QC): 3 Sit to Lying (QC): 3 min assist for bed mobility, mod assist for supine <-> sit. Patient sits to the side of the bed, has a lot of abdominal pain, she cries with pain but tries to stay up, performs a couple of LE exercises on her left leg, states she needs to lay back down. Says the pain is too much to sit any longer. She sits for about 4-5 min. Exercises Seated Therapy Exercises: Ankle pumps, Long arc quads Seated Reps: 20 (LLE) Treatments sitting, LE ROM Assessment Current Status: Poor Progress Patient has severe pain, cannot tolerate sitting at this time. PT Teaching Young Goals Teaching Young Goals PT Longterm Goals Time Frame: May 11, 2021 Roll Left & Right (QC): 3 Sit to Lying (QC): 3 Lying-Sitting on Side/Bed(QC): 3 Sit to Stand (QC): 9 Chair/Udx-qi-Fdeda Xfer(QC): 1 PT Plan Problem List Problem List: Activity Tolerance, Functional Strength, Safety, Balance, Transfer, Bed Mobility, ROM Treatment/Plan Treatment Plan: Continue Plan of Care Treatment Plan: Bed Mobility, Education, Functional Activity Yesenia, Functional Strength, Safety, Therapeutic Exercise, Transfers Treatment Duration: May 11, 2021 Frequency: 6 times per week Estimated Hrs Per Day: .25 hour per day Patient and/or Family Agrees t: Yes Safety Risks/Education Patient Education: Correct Positioning, Safety Issues Teaching Recipient: Patient Teaching Methods: Demonstration, Discussion Response to Teaching: Reinforcement Needed Time/GCodes Time In: 0950 Time Out: 1000 Total Billed Treatment Time: 10 Total Billed Treatment 1 visit FA ESTUARDO CAPPS PT May 01, 2021 10:23
--- NOTE | 2021-05-01 10:52 | Progress Note - Hospitalist ---
DILCIA EVANS 05/01/21 1052: Subjective HPI/CC On Admission Time Seen by Provider: 08:15 Subjective/Events-last exam She does not notice any changes since yesterday. Her abdominal pain is about the same. She is passing gas and still has no bowel movement. She reports no SOB with recent CXR revealing questionable basilar consolidation. Objective Exam Vital Signs Vital Signs Date Time Temp Pulse Resp B/P (MAP) Pulse Ox O2 Delivery O2 Flow Rate FiO2 05/01/21 09:00 High Flow N/C 2.00 05/01/21 08:19 35.6 92 18 147/93 (111) 94 04/29/21 10:31 36 Capillary Refill : Less Than 3 Seconds General Appearance: Anxious, Chronically ill, Moderate Distress, Obese Respiratory: No Accessory Muscle Use, No Respiratory Distress, Decreased Breath Sounds Gastrointestinal: Normal Bowel Sounds, Distended Results/Procedures Lab Laboratory Tests 05/01/21 05:45 Patient resulted labs reviewed. Assessment/Plan Assessment and Plan Assess & Plan/Chief Complaint Assessment: Acute respiratory failure now resolved Pneumonia facility acquired Recent nephrectomy due to renal cell carcinoma Oxygen dependent Ileus Plan: General Surgery on board Supportive care Antibiotics PT and OT 1000ml Fluid restriction ANGELITA SCHULTZ DO 05/02/21 0456: Subjective HPI/CC On Admission Date Seen by Provider: May 01, 2021 Subjective/Events-last exam Pt still on clear liquids No BM yet On three liters of oxygen currently PT and OT working with her Overall doing very well Review of Systems General: Fatigue, Malaise Objective Exam General Appearance: No Apparent Distress, WD/WN, Chronically ill Respiratory: Lungs Clear, Normal Breath Sounds Cardiovascular: Regular Rate, Rhythm Neurologic/Psychiatric: Alert, Oriented x3 Assessment/Plan Assessment and Plan Assess & Plan/Chief Complaint Late in the afternoon patient was placed n.p.o. No BM yet Supportive care Supervisory-Addendum Brief Verification & Attestation Participated in pt care: history, MDM, physical Personally performed: exam, history, MDM, supervision of care Care discussed with: Medical Student Procedures: n/a Results interpretation: Verified all documentation Verification and Attestation of Medical Student E/M Service A medical student performed and documented this service in my presence. I reviewed and verified all information documented by the medical student and made modifications to such information, when appropriate. I personally performed the physical exam and medical decision making. Angelita Schultz, May 02, 2021,04:55 DILCIA EVANS May 01, 2021 10:52 ANGELITA SCHULTZ DO May 02, 2021 04:56
[2021-05-01 11:08] VITALS: BP 150/79
[2021-05-01] MEDS ORDERED: BISACODYL 10 MG SUPP (DULCOLAX) PR ONE ×2 (13:30→21:00)
--- NOTE | 2021-05-01 14:51 | Occupational Ther Daily Note ---
OT Current Status-Daily Note Subjective Pt laying in bed, rates pain 8/10 in abdomen. Mental Status/Objective Patient Orientation: Person, Place, Situation ADL-Treatment Therapy Code Descriptions/Definitions Functional [place] Measure: 0=Not Assessed/NA 4=Minimal Assistance 1=Total Assistance 5=Supervision or Setup 2=Maximal Assistance 6=Modified [place] 3=Moderate Assistance 7=Complete IndependenceSCALE: Activities may be completed with or without assistive devices. 4-Naxrsnezwv-mfflvur completes the activity by him/herself with no assistance from a helper. 5-Set-up or Clean-up Assistance-helper sets up or cleans up; patient completes activity. [place] assists only prior to or following the activity. 4-Supervision or Touching Assistance-helper provides verbal cues and/or touching/steadying and/or contact guard assistance as patient completes activity. Assistance may be provided throughout the activity or intermittently. 3-Partial/Moderate Assistance-helper does LESS THAN HALF the effort. [place] lifts, holds or supports trunk or limbs, but provides less than half the effort. 2-Substantial/Maximal Assistance-helper does MORE THAN HALF the effort. [place] lifts or holds trunk or limbs and provides more than half the effort. 9-Zifsqvxwy-inpnef does ALL the effort. Patient does none of the effort to complete the activity. Or, the assistance of 2 or more helpers is required for the patient to complete the activity. If activity was not attempted, code reason: 7-Patient Refused. 9-Not Applicable-not attempted and the patient did not perform the activity before the current illness, exacerbation or injury. 10-Not Attempted due to Environmental Limitations-(lack of equipment, weather restraints, etc.). 88-Not Attempted due to Medical Conditions or Safety Concerns. Other Treatment Pt laying in bed, agreeable to OT Tx with focus on increasing UE strength and activity tolerance. Pt completed x15 reps each of the following using RUE: shoulder flexion, horizontal abduction, horizontal adduction, and elbow flexion. LUE not performed on this date due to pain in L side of abdomen. Post tx, pt in bed, call light in reach and all needs met. Education OT Patient Education: Correct positioning, Energy conservation, Exercise program, Home exercise program, Modified ADL techniques, Progress toward Goal/Update tx plan, Purpose of tx/functional activities, Rehab process Teaching Recipient: Patient Teaching Methods: Discussion Response to Teaching: Verbalize Understanding OT Prototype Model Maker Goals Prototype Model Maker Goals Time Frame: May 10, 2021 Eating (QC): 6 Oral Hygiene (QC): 5 Shower/Bathe Self (QC): 2 (sponge bath) Additional Goals: 1-Demonstrate ADL Tasks, 2-Verbalize Understanding, 3- ImproveStrength/[place] 1=Demonstrate adherence to instructed precautions during ADL tasks. 2=Patient will verbalize/demonstrate understanding of assistive devices/modific ations for ADL. 3=Patient will improve strength/tolerance for activity to enable patient to perform ADL's. OT Education/Plan Problem List/Assessment Assessment: Decreased Activ Tolerance, Decreased UE Strength, Dependent Transfers, Impaired Bed Mobility, Impaired Funct Balance, Impaired I ADL's, Impaired Self-Care Skills Pt would benefit from skilled OT services in order to increase BUE Strength and activity tolerance in order to increase independence with w/c mobility and ADLs. Discharge Recommendations Plan/Recommendations: Continue POC Treatment Plan/Plan of Care Patient would benefit from OT for education, treatment and training to promote independence in ADL's, mobility, safety and/or upper extremity function for ADL's. Plan of Care: ADL Retraining, Functional Mobility, UE Funct Exercise/Act Treatment Duration: May 10, 2021 Frequency: 5 times per week Estimated Hrs Per Day: .25 hour per day Rehab Potential: Guarded Time/GCodes Start Time: 14:18 Stop Time: 14:28 Total Time Billed (hr/min): 10 Billed Treatment Time 1, EX PETRA WHITEHEAD OT May 01, 2021 14:50
[2021-05-01 15:48] VITALS: BP 140/90
[2021-05-01] MEDS ORDERED: NS IV 1000 ML 1,000 ML ONE (18:41)
[2021-05-01] MEDS: NS IV 1000 ML 1,000 ML IV SCH (18:46)
[2021-05-01 19:27] VITALS: BP 161/90
[2021-05-02] VITALS (8 sets, daily range): BP systolic 141–175; BP diastolic 73–96
[2021-05-02] MEDS: PIPERACILLIN/TAZOBACTAM (BULK) 4.5 GM in NS (IVPB) 100 ML IV SCH ×3 (02:08→18:23)
[2021-05-02] MEDS: RT-ALBUTEROL/IPRATROPIUM 3 ML (DUONEB) VIAL INH SCH ×4 (02:46→21:47)
[2021-05-02] MEDS: oxyCODONE/APAP 7.5-325 MG (PERCOCET 7.5) TABLET PO SCH ×3 (05:11→17:47)
[2021-05-02] MEDS: LEVOTHYROXINE 100 MCG (LEVOTHROID) TAB PO SCH (05:11)
[2021-05-02] MEDS: inSUlin ASPART (NovoLOG) 1 UNIT/0.01 ML (CHARGE PER UNIT) SC SCH ×4 (05:15→20:23)
[2021-05-02 06:45] LABS: BASOPHILS % (AUTO) 0 % (0-10); EOSINOPHILS # (AUTO) 0.3 10^3/uL (0.0-0.3); EOSINOPHILS % (AUTO) 5 % (0-10); HEMATOCRIT 38 % (35-52); HEMOGLOBIN 11.9 g/dL (11.5-16.0); LYMPHOCYTES # (AUTO) 0.9 10^3/uL (1.0-4.0); LYMPHOCYTES % (AUTO) 13 % (12-44); MEAN CORPUSCULAR HEMOGLOBIN 29 pg (25-34); MEAN CORPUSCULAR HGB CONC 31 g/dL (32-36); MEAN CORPUSCULAR VOLUME 94 fL (80-99); MONOCYTES # (AUTO) 0.5 10^3/uL (0.0-1.0); MONOCYTES % (AUTO) 8 % (0-12); NEUTROPHILS # (AUTO) 5.3 10^3/uL (1.8-7.8); NEUTROPHILS % (AUTO) 74 % (42-75); PLATELET COUNT 238 10^3/uL (130-400); WHITE BLOOD COUNT 7.2 10^3/uL (4.3-11.0)
[2021-05-02 07:01] LABS: ALBUMIN 2.9 GM/DL (3.2-4.5); POTASSIUM 3.6 MMOL/L (3.6-5.0)
[2021-05-02 07:02] LABS: CALCIUM 8.7 MG/DL (8.5-10.1)
[2021-05-02 07:04] LABS: TOTAL PROTEIN 6.5 GM/DL (6.4-8.2)
[2021-05-02] MEDS: RT--FLUTICASONE/SALMETEROL 232-14 (AIRDUO RespiCLICK) IH SCH ×2 (07:04→21:47)
[2021-05-02 07:05] LABS: BILIRUBIN,TOTAL 0.8 MG/DL (0.1-1.0)
[2021-05-02 07:07] LABS: CREATININE SERUM 1.09 MG/DL (0.60-1.30)
--- NOTE | 2021-05-02 07:50 | Progress Note - Surgery ---
HOLLEY LEYVA 05/02/21 0749: Subjective Date Seen by a Provider: May 02, 2021 Time Seen by a Provider: 07:10 Subjective/Events-last exam Patient reports she is doing better today. Patient says she had 2-3 bowel movements last night. They were not in the toilet but patient says the nurses saw them. She is ready to start a solid diet. Patient still has abdominal tenderness but reports it as more mild today. Patient says she is breathing better today than yesterday. Patient is on 2 L of oxygen this morning. Review of Systems General: No Chills, No Fatigue HEENT: No Head Aches, No Visual Changes Pulmonary: No Dyspnea, No Cough Cardiovascular: No: Chest Pain, Palpitations Gastrointestinal: Abdominal Pain (LUQ); No: Nausea, Vomiting, Constipation Genitourinary: No Dysuria, No Frequency Focused Exam Respiratory: Chest Non Tender, No Accessory Muscle Use, No Respiratory Distress, Decreased Breath Sounds Cardiovascular: Regular Rate, Rhythm, No Murmur, Normal Peripheral Pulses Capillary Refill: Less Than 3 Seconds Peripheral Pulses: 2+ Left Dors-Pedis (L), 2+ Radial Pulses (R), 2+ Radial Pulses (L) Skin: normal color, warm/dry Objective Exam Vital Signs Date Time Temp Pulse Resp B/P (MAP) Pulse Ox O2 Delivery O2 Flow Rate FiO2 05/02/21 07:04 98 Nasal Cannula 3.00 05/02/21 05:00 36.3 96 20 168/76 (106) 95 High Flow N/C 2.00 05/02/21 02:46 92 Nasal Cannula 3.00 05/02/21 00:00 35.8 76 20 141/96 (111) 96 High Flow N/C 2.00 05/01/21 20:18 94 Nasal Cannula 3.00 05/01/21 19:27 35.8 80 18 161/90 (113) 95 High Flow N/C 2.00 05/01/21 19:15 High Flow N/C 2.00 05/01/21 15:48 35.8 80 20 140/90 (107) 95 High Flow N/C 2.00 05/01/21 14:31 93 Nasal Cannula 3.00 05/01/21 11:08 35.8 76 14 150/79 (102) 95 High Flow N/C 2.00 05/01/21 09:00 High Flow N/C 2.00 05/01/21 08:19 35.6 92 18 147/93 (111) 94 High Flow N/C 2.00 I & O 05/02/21 07:00 Intake Total 660 ml Output Total 1750 ml Balance -1090 ml Capillary Refill : Less Than 3 Seconds General Appearance: No Apparent Distress, WD/WN, Chronically ill HEENT: PERRL/EOMI Neck: Normal Inspection, Non Tender Respiratory: Chest Non Tender, Lungs Clear, No Accessory Muscle Use, No Respiratory Distress, Decreased Breath Sounds Cardiovascular: Regular Rate, Rhythm, No Murmur, Normal Peripheral Pulses Peripheral Pulses: 2+ Left Dors-Pedis (L), 2+ Radial Pulses (R), 2+ Radial Pulses (L) Gastrointestinal: soft, tenderness (LUQ, mild) Extremity: Normal Capillary Refill, No Calf Tenderness, Other (Right lower extremity amputation) Neurologic/Psychiatric: Alert, Oriented x3, No Motor/Sensory Deficits, Normal 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, 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 Norm as Tested Skin: Normal Color, Warm/Dry Lymphatic: No Adenopathy (head and neck) Results Lab Laboratory Tests 05/01/21 11:07: Glucometer 147H 05/01/21 15:18: Glucometer 141H 05/01/21 20:22: Glucometer 120H 05/02/21 05:14: Glucometer 113H 05/02/21 06:37: White Blood Count 7.2, Red Blood Count 4.06, Hemoglobin 11.9, Hematocrit 38, Mean Corpuscular Volume 94, Mean Corpuscular Hemoglobin 29, Mean Corpuscular Hemoglobin Concent 31L, Red Cell Distribution Width 15.1H, Platelet Count 238, Mean Platelet Volume 9.0, Immature Granulocyte % (Auto) 0, Neutrophils (%) (Auto) 74, Lymphocytes (%) (Auto) 13, Monocytes (%) (Auto) 8, Eosinophils (%) (Auto) 5, Basophils (%) (Auto) 0, Neutrophils # (Auto) 5.3, Lymphocytes # (Auto) 0.9L, Monocytes # (Auto) 0.5, Eosinophils # (Auto) 0.3, Basophils # (Auto) 0.0, Immature Granulocyte # (Auto) 0.0, Sodium Level 136, Potassium Level 3.6, Chloride Level 96L, Carbon Dioxide Level 28, Anion Gap 12, Blood Urea Nitrogen 8, Creatinine 1.09, Estimat Glomerular Filtration Rate 50, BUN/Creatinine Ratio 7, Glucose Level 117H, Calcium Level 8.7, Corrected Calcium 9.6, Total Bilirubin 0.8, Aspartate Amino Transf (AST/SGOT) 20, Alanine Aminotransferase (ALT/SGPT) 10, Alkaline Phosphatase 61, Total Protein 6.5, Albumin 2.9L Microbiology 04/28/21 Mycobacterial Culture - Preliminary, Resulted 04/25/21 Blood Culture - Final, Complete No growth 04/25/21 Urine Culture - Final, Complete YEAST Assessment/Plan Assessment/Plan Assessment/Plan Abdominal pain diffuse - minimal Ileus Acute respiratory failure S/P recent L Lap nephrectomy Increasing shortness of breath Left lower lung possible mucous plug Patient had bowel movement yesterday. Consider switch to soft diet and add liquids. Patient working with PT. Breathing better s/p bronchoscopy. JUAN REYES DO 05/02/21 1153: Subjective Time Seen by a Provider: 11:11 Subjective/Events-last exam Pt seen and examined, still has some lower abdominal pain but is having BMs. Wants to eat. Review of Systems General: No Chills Pulmonary: No Dyspnea, No Cough Cardiovascular: No: Chest Pain, Palpitations Gastrointestinal: Abdominal Pain (LUQ); No: Nausea, Vomiting, Constipation Objective Exam General Appearance: No Apparent Distress, Chronically ill, Obese HEENT: PERRL/EOMI Respiratory: Lungs Clear, No Accessory Muscle Use, No Respiratory Distress, Decreased Breath Sounds Cardiovascular: Regular Rate, Rhythm, No Murmur Gastrointestinal: soft, tenderness (LUQ, mild), other (incisions are c/d/i) Assessment/Plan Assessment/Plan Assessment/Plan Abdominal pain diffuse - minimal Ileus - appears to be resolved or resolving Acute respiratory failure S/P recent L Lap nephrectomy Increasing shortness of breath Left lower lung possible mucous plug Patient had BMs and has less abdominal pain; will switch to soft diet and add liquids. Patient working with PT. Breathing better s/p bronchoscopy. Will sign off, pt has no further surgical issues at this time. Supervisory-Addendum Brief Verification & Attestation Participated in pt care: history, MDM, physical Personally performed: exam, history, MDM, supervision of care Care discussed with: Medical Student Procedures: n/a Verification and Attestation of Medical Student E/M Service A medical student performed and documented this service. I then reviewed and verified all information documented by the medical student and made modifications to such information, when appropriate. I personally performed a physical exam, medical decision making and then discussed any differences between the notes and made revisions as necessary to create one note. Juan Reyes , 05/02/21 , 11:53 HOLLEY LEYVA May 02, 2021 07:49 JUAN REYES DO May 02, 2021 11:53
[2021-05-02] MEDS: meTOprolol TARTRATE 50 MG (LOPRESSOR) TAB PO SCH ×2 (08:40→19:47)
[2021-05-02] MEDS: PANTOPRAZOLE 40 MG (PROTONIX) TAB PO SCH (08:40)
[2021-05-02] MEDS: polyethylene glycoL POWDER 17 GM (MIRALAX) PACK PO SCH (08:40)
[2021-05-02] MEDS: DOCUSATE SODIUM 100 MG (COLACE) CAP PO SCH ×2 (08:40→19:47)
[2021-05-02] MEDS: ENOXAPARIN 40 MG/0.4 ML (LOVENOX) SYR SC SCH ×2 (08:41→21:53)
[2021-05-02] MEDS: BISACODYL 10 MG SUPP (DULCOLAX) PR SCH (08:47)
[2021-05-02] MEDS: MUPIROCIN 2% OINT 22 GM (BACTROBAN) TUBE NSEACH SCH ×2 (08:50→19:47)
[2021-05-02] MEDS: NS IV 1000 ML 1,000 ML IV SCH (10:58)
--- NOTE | 2021-05-02 11:49 | Physical Therapy Daily Note ---
PT Daily Note-Current Subjective Patient is very agreeable to PT and to transfer to w/c. Mental Status Patient Orientation: Normal For Age Attachments: Oxygen, Marte Catheter, IV Transfers SCALE: Activities may be completed with or without assistive devices. 0-Pdjakojyfc-ysrknds completes the activity by him/herself with no assistance from a helper. 5-Set-up or Clean-up Assistance-helper sets up or cleans up; patient completes activity. [place] assists only prior to or following the activity. 4-Supervision or Touching Assistance-helper provides verbal cues and/or touching/steadying and/or contact guard assistance as patient completes activity. Assistance may be provided throughout the activity or intermittently. 3-Partial/Moderate Assistance-helper does LESS THAN HALF the effort. [place] lifts, holds or supports trunk or limbs, but provides less than half the effort. 2-Substantial/Maximal Assistance-helper does MORE THAN HALF the effort. [place] lifts or holds trunk or limbs and provides more than half the effort. 1-Zubufhtaf-jwqtsl does ALL the effort. Patient does none of the effort to complete the activity. Or, the assistance of 2 or more helpers is required for the patient to complete the activity. If activity was not attempted, code reason: 7-Patient Refused. 9-Not Applicable-not attempted and the patient did not perform the activity before the current illness, exacerbation or injury. 10-Not Attempted due to Environmental Limitations-(lack of equipment, weather restraints, etc.). 88-Not Attempted due to Medical Conditions or Safety Concerns. Roll Left & Right (QC): 2 Chair/Wrj-we-Kpkbo Xfer(QC): 1 (Monica lift) Exercises Seated Therapy Exercises: Long arc quads Seated Reps: 12 (left LE) Assessment Patient up in w/c via Monica lift. Patient tolerated treatment well. PT Long-Term Goals Long-Term Goals PT C 13 Catapult Operator Goals Time Frame: May 11, 2021 Roll Left & Right (QC): 3 Sit to Lying (QC): 3 Lying-Sitting on Side/Bed(QC): 3 Sit to Stand (QC): 9 Chair/Dzj-oq-Sfqll Xfer(QC): 1 PT Plan Treatment/Plan Treatment Plan: Continue Plan of Care Treatment Plan: Bed Mobility, Education, Functional Activity Yesenia, Functional Strength, Safety, Therapeutic Exercise, Transfers Treatment Duration: May 11, 2021 Frequency: 6 times per week Estimated Hrs Per Day: .25 hour per day Patient and/or Family Agrees t: Yes Time/GCodes Time In: 1105 Time Out: 1117 Total Billed Treatment Time: 12 Total Billed Treatment 1 visit FA 12 min ENEDINA RYAN PT May 02, 2021 11:48
--- NOTE | 2021-05-02 12:48 | Progress Note - Hospitalist ---
DILCIA EVANS 05/02/21 1248: Subjective HPI/CC On Admission Time Seen by Provider: 07:30 Subjective/Events-last exam Patient reports she is doing better today. Patient says she had 2-3 bowel movements last night. They were not in the toilet but patient says the nurses saw them. She is ready to start a solid diet. Patient still has abdominal tenderness but reports it is 90% better then yesterday. Patient says she is breathing better today than yesterday. Patient is on 2 L of oxygen this morning. Surgery has signed off on this patient today. Objective Exam Vital Signs Vital Signs Date Time Temp Pulse Resp B/P (MAP) Pulse Ox O2 Delivery O2 Flow Rate FiO2 05/02/21 11:26 36.4 82 18 175/87 (116) 97 High Flow N/C 2.00 04/29/21 10:31 36 Capillary Refill : Less Than 3 Seconds General Appearance: Chronically ill, Obese Gastrointestinal: Normal Bowel Sounds Neurologic/Psychiatric: Alert; No Disoriented Results/Procedures Lab Laboratory Tests 05/02/21 06:37 Patient resulted labs reviewed. Assessment/Plan Assessment and Plan Assess & Plan/Chief Complaint Assessment: Acute respiratory failure now resolved Pneumonia facility acquired Recent nephrectomy due to renal cell carcinoma Oxygen dependent Ileus resolved Plan: General Surgery on board, signed off after bowel movement Supportive care Antibiotics PT and OT 1000ml Fluid restriction ANGELITA SCHULTZ DO 05/03/21 0522: Subjective HPI/CC On Admission Date Seen by Provider: May 02, 2021 Subjective/Events-last exam Patient eating a solid diet Bowels are moving Likely discharge tomorrow Review of Systems General: Fatigue Objective Exam General Appearance: No Apparent Distress, WD/WN, Chronically ill Respiratory: Lungs Clear, Decreased Breath Sounds Cardiovascular: Regular Rate, Rhythm Neurologic/Psychiatric: Alert, Oriented x3 Assessment/Plan Assessment and Plan Assess & Plan/Chief Complaint Discharge home tomorrow Supervisory-Addendum Brief Verification & Attestation Participated in pt care: history, MDM, physical Personally performed: exam, history, MDM, supervision of care Care discussed with: Medical Student Procedures: n/a Results interpretation: Verified all documentation Verification and Attestation of Medical Student E/M Service A medical student performed and documented this service in my presence. I reviewed and verified all information documented by the medical student and made modifications to such information, when appropriate. I personally performed the physical exam and medical decision making. Angelita Schultz, May 03, 2021,05:22 DILCIA EVANS May 02, 2021 12:48 ANGELITA SCHULTZ DO May 03, 2021 05:22
--- NOTE | 2021-05-02 13:38 | Occupational Ther Daily Note ---
OT Current Status-Daily Note Subjective Pt alert, sitting up in w/c. Pt agrees to therapy. Pt c/o pain but when nrsg asked about pain, pt stated that it wasn't to bad. Pt did state she wanted nrsg to get her back into bed with lift so she could use the bedpan. Reported to nrsg, offered assistance, nrsg declined. Mental Status/Objective Patient Orientation: Person, Place, Time, Situation ADL-Treatment Pt independent for lunch. Pt attempted to propel w/c in restroom, w/c to wide to fit comfortably through door. Set pt up for oral care and upper body bathing. Pt able to complete by self after set up. Therapy Code Descriptions/Definitions Functional [place] Measure: 0=Not Assessed/NA 4=Minimal Assistance 1=Total Assistance 5=Supervision or Setup 2=Maximal Assistance 6=Modified [place] 3=Moderate Assistance 7=Complete IndependenceSCALE: Activities may be completed with or without assistive devices. 1-Yqxrddcrnx-cxfapnv completes the activity by him/herself with no assistance from a helper. 5-Set-up or Clean-up Assistance-helper sets up or cleans up; patient completes activity. [place] assists only prior to or following the activity. 4-Supervision or Touching Assistance-helper provides verbal cues and/or touching/steadying and/or contact guard assistance as patient completes activity. Assistance may be provided throughout the activity or intermittently. 3-Partial/Moderate Assistance-helper does LESS THAN HALF the effort. [place] lifts, holds or supports trunk or limbs, but provides less than half the effort. 2-Substantial/Maximal Assistance-helper does MORE THAN HALF the effort. [place] lifts or holds trunk or limbs and provides more than half the effort. 5-Msimkkgfn-malqrw does ALL the effort. Patient does none of the effort to complete the activity. Or, the assistance of 2 or more helpers is required for the patient to complete the activity. If activity was not attempted, code reason: 7-Patient Refused. 9-Not Applicable-not attempted and the patient did not perform the activity before the current illness, exacerbation or injury. 10-Not Attempted due to Environmental Limitations-(lack of equipment, weather restraints, etc.). 88-Not Attempted due to Medical Conditions or Safety Concerns. Eating (QC): 6 Oral Hygiene (QC): 5 Shower/Bathe Self (QC): 2 Other Treatment Pt given medium resistance theraband and HEP to complete B UE strengthening exe rcise to strengthen for daily functional tasks. Skilled instruction for correct technique and modifications when necessary. Pt did demonstrate understanding of exercises and was able to complete exercises that were given to her by OT proficiently. Pt stated that she knew her exercises and did not need OT for B UE exercises. After therapy, pt sitting in recliner with call light/phone in reach. All needs met in room. OT Indoor Sports Centre Manager Goals Indoor Sports Centre Manager Goals Time Frame: May 10, 2021 Eating (QC): 6 Oral Hygiene (QC): 5 Shower/Bathe Self (QC): 2 (sponge bath) Additional Goals: 1-Demonstrate ADL Tasks, 2-Verbalize Understanding, 3- ImproveStrength/[place] 1=Demonstrate adherence to instructed precautions during ADL tasks. 2=Patient will verbalize/demonstrate understanding of assistive devices/modifications for ADL. 3=Patient will improve strength/tolerance for activity to enable patient to perform ADL's. OT Education/Plan Problem List/Assessment Pt would benefit from skilled OT services in order to increase BUE Strength and activity tolerance in order to increase independence with w/c mobility and ADLs. Discharge Recommendations Plan/Recommendations: Continue POC Treatment Plan/Plan of Care Patient would benefit from OT for education, treatment and training to promote independence in ADL's, mobility, safety and/or upper extremity function for ADL's. Plan of Care: ADL Retraining, Functional Mobility, UE Funct Exercise/Act Treatment Duration: May 10, 2021 Frequency: 5 times per week Estimated Hrs Per Day: .25 hour per day Rehab Potential: Guarded Time/GCodes Start Time: 13:35 Stop Time: 13:00 Total Time Billed (hr/min): 25 Billed Treatment Time 1 visit-ADL 1 (15 min) EX 1 (10 min) SURESH BARNES May 02, 2021 13:38
[2021-05-03] VITALS: BP 156/79
[2021-05-03] MEDS: oxyCODONE/APAP 7.5-325 MG (PERCOCET 7.5) TABLET PO SCH ×2 (00:35→03:50)
[2021-05-03] MEDS: PIPERACILLIN/TAZOBACTAM (BULK) 4.5 GM in NS (IVPB) 100 ML IV SCH (03:16)
[2021-05-03] MEDS: inSUlin ASPART (NovoLOG) 1 UNIT/0.01 ML (CHARGE PER UNIT) SC SCH (05:24)
[2021-05-03] MEDS: LEVOTHYROXINE 100 MCG (LEVOTHROID) TAB PO SCH (05:31)
[2021-05-03 06:16] LABS: BASOPHILS % (AUTO) 1 % (0-10); EOSINOPHILS # (AUTO) 0.4 10^3/uL (0.0-0.3); EOSINOPHILS % (AUTO) 5 % (0-10); HEMATOCRIT 36 % (35-52); HEMOGLOBIN 11.2 g/dL (11.5-16.0); LYMPHOCYTES % (AUTO) 13 % (12-44); MEAN CORPUSCULAR HEMOGLOBIN 29 pg (25-34); MEAN CORPUSCULAR HGB CONC 31 g/dL (32-36); MEAN CORPUSCULAR VOLUME 93 fL (80-99); MEAN PLATELET VOLUME 9.4 fL (9.0-12.2); MONOCYTES # (AUTO) 0.7 10^3/uL (0.0-1.0); MONOCYTES % (AUTO) 9 % (0-12); NEUTROPHILS # (AUTO) 5.6 10^3/uL (1.8-7.8); NEUTROPHILS % (AUTO) 72 % (42-75); PLATELET COUNT 217 10^3/uL (130-400); WHITE BLOOD COUNT 7.8 10^3/uL (4.3-11.0)
[2021-05-03 06:32] LABS: ALBUMIN 2.8 GM/DL (3.2-4.5); POTASSIUM 3.7 MMOL/L (3.6-5.0)
[2021-05-03 06:33] LABS: CALCIUM 8.6 MG/DL (8.5-10.1)
[2021-05-03 06:34] LABS: TOTAL PROTEIN 6.4 GM/DL (6.4-8.2)
[2021-05-03 06:36] LABS: BILIRUBIN,TOTAL 0.7 MG/DL (0.1-1.0)
[2021-05-03 06:38] LABS: CREATININE SERUM 1.18 MG/DL (0.60-1.30)
[2021-05-03] MEDS: DOCUSATE SODIUM 100 MG (COLACE) CAP PO SCH (07:37)
[2021-05-03] MEDS: polyethylene glycoL POWDER 17 GM (MIRALAX) PACK PO SCH (07:37)
[2021-05-03] MEDS: BISACODYL 10 MG SUPP (DULCOLAX) PR SCH (07:37)
[2021-05-03 07:46] VITALS: BP 165/70
[2021-05-03] MEDS: ENOXAPARIN 40 MG/0.4 ML (LOVENOX) SYR SC SCH (09:35)
[2021-05-03] MEDS: PANTOPRAZOLE 40 MG (PROTONIX) TAB PO SCH (09:35)
[2021-05-03] MEDS: meTOprolol TARTRATE 50 MG (LOPRESSOR) TAB PO SCH (09:35)
[2021-05-03] MEDS: MUPIROCIN 2% OINT 22 GM (BACTROBAN) TUBE NSEACH SCH (09:35)
[2021-05-03] MEDS ORDERED: OXYC-525 PO (09:52)
[2021-05-03] MEDS ORDERED: PANT40TA52 PO (09:52)
[2021-05-03] MEDS ORDERED: METO50TA15 PO (09:52)
[2021-05-03] MEDS ORDERED: FLUT1AER5 IH (09:52)
--- NOTE | 2021-05-03 09:55 | D/C HH Face to Face Order ---
D/C Face to Face Orders Reconcile Patient Problems Problems Reviewed?: Yes Instructions for Patient Via [facility], Patient Instructions/FollowUp: [facility] 1 week Physician to follow Patient: [facility] Discharge Diet for Home: ADA Diet Patient Problems: s/p nephrectomy s/p ileus Patient Data-Allergies,Ht & Wt Patient Allergies: Coded Allergies: diphenhydramine (Verified Allergy, Unknown, 05/13/20) Height (Inches): 64.00 Weight (Pounds): 261 Home Health Need/Face to Face Date of Face to Face: May 03, 2021 Clinical Findings: Generalized weakness and fatigue, Instability, Muscle weakness, Shortness of breath, Unsteady gait I have seen Pt acim-wv-lgxa: Yes Discharged To: Home Diagnosis/Conditions: Debility Patient is Homebound due to: Jd fall risk due to instabilty, Muscle weakness, Non-weight bearing Homebound Status Due to the above stated illness, injury or surgical procedure (medical condition or diagnosis) and associated clinical findings, the patient is homebound because of his/her inability to leave home except with aid of a supportive device and/or person AND leaving the home requires a considerable and taxing effort or is medically contraindicated. Pt req the following assistanc: Walker, Wheelchair Home Health Nursing Orders Home Health Services Order: Nursing Services, Oven Press Tender-Evaluate & Treat, Physical Therapy-Evaluate & Treat Home Health Infusion Therapy Line Start Date: Apr 25, 2021 Certify Stmt I certify that this patient is under my care and that I, a nurse practitioner or a physician; a pier master assistant working with me, had a face to face encounter that - meets the physician face to face encounter requirements with this patient as dated. OKSANA SCHULTZ DO May 03, 2021 09:55
--- NOTE | 2021-05-03 09:55 | Discharge Summary ---
Discharge Summary Hospital Course Was the Problem List Reviewed?: Yes Problems/Dx: (1) Ileus, Post-op pain (2) Status post nephrectomy Status: Acute (3) Renal cell carcinoma Status: Acute Qualifiers: Qualified Codes: C64.2 - Malignant neoplasm of left kidney, except renal pelvis (4) COPD (chronic obstructive pulmonary disease) Status: Chronic (5) Hypothyroidism Status: Chronic (6) Atrial fibrillation Status: Chronic (7) Postoperative pain Status: Acute Hospital Course Date of Admission: Apr 25, 2021 at 18:47 Admission Diagnosis : [facility] Date of Discharge: 05/03/21 Discharge Diagnosis: Postop ileus, status post nephrectomy for renal cell carcinoma, O2 dependent, morbid obesity with BMI of 48 Hospital Course: DILCIA EVANS 05/03/21 1330: Discharge 70 yo female came to the hospital due to constipation and pain. She had surgery at on Thursday, 04/23 for left kidney removal and after discharge she still couldn't have a BM. She tried dulcolax and miralax without benefit. She has pain in her abdomen diffusely, but also some localized pain around her surgical site. She is non-ambulatory at baseline. Throughout her stay she was on a clear liquid diet, laxatives, and was given PT. On 05-01 at night she had 2 to 3 bowel movements and on 05-02 she reported to have a 90% reduction in abdominal pain. She continued to improve with less abdominal pain and more bowel movements on which was signed off by surgery and she is being discharged with home health, OT and PT. During her admission she also noted she was SOB. Her initial CXR showed new right basilar airspace opacity, may represent atelectasis or infection, so she was placed on zosyn and Vancomycin with N/C 4 L/min. Her last CXR on 05/01 showed questionable left basilar consolidation but she reported far less SOB so she was continued on zosyn and discontinued on Vancomycin. Her Bronchopulomary washings in both the left and right lungs showed Sherly and Actinobacter, and her mucus plug was removed which greatly improved her breathing. Her sodium levels on 04-29 was 133 and she was given saline and water restriction which resulted in her sodium levels being stabilized with her latest level of 134. Labs and Pending Lab Test: Laboratory Tests 05/02/21 10:14: Glucometer 140H 05/02/21 16:00: Glucometer 137H 05/02/21 20:16: Glucometer 133H 05/03/21 05:21: Glucometer 115H 05/03/21 05:25: White Blood Count 7.8, Red Blood Count 3.89, Hemoglobin 11.2L, Hematocrit 36, Mean Corpuscular Volume 93, Mean Corpuscular Hemoglobin 29, Mean Corpuscular Hemoglobin Concent 31L, Red Cell Distribution Width 15.3H, Platelet Count 217, Mean Platelet Volume 9.4, Immature Granulocyte % (Auto) 1, Neutrophils (%) (Auto) 72, Lymphocytes (%) (Auto) 13, Monocytes (%) (Auto) 9, Eosinophils (%) (Auto) 5, Basophils (%) (Auto) 1, Neutrophils # (Auto) 5.6, Lymphocytes # (Auto) 1.0, Monocytes # (Auto) 0.7, Eosinophils # (Auto) 0.4H, Basophils # (Auto) 0.0, Immature Granulocyte # (Auto) 0.1, Sodium Level 134L, Potassium Level 3.7, Chloride Level 96L, Carbon Dioxide Level 28, Anion Gap 10, Blood Urea Nitrogen 10, Creatinine 1.18, Estimat Glomerular Filtration Rate 46, BUN/Creatinine Ratio 8, Glucose Level 108H, Calcium Level 8.6, Corrected Calcium 9.6, Total Bilirubin 0.7, Aspartate Amino Transf (AST/SGOT) 21, Alanine Aminotransferase (ALT/SGPT) 7, Alkaline Phosphatase 61, Total Protein 6.4, Albumin 2.8L Microbiology 04/28/21 Mycobacterial Culture - Preliminary, Resulted 04/25/21 Blood Culture - Final, Complete No growth 04/25/21 Urine Culture - Final, Complete YEAST Home Meds Active Pantoprazole Sodium 40 Mg Tablet.dr 40 Mg PO DAILY Fluticasone-Salmeterol 232-14 (Fluticasone/Salmeterol) 1 Each Aer.pow.ba 0 Each IH RTBID Metoprolol Tartrate 50 Mg Tablet 50 Mg PO BID Oxycodone HCl 15 Mg Tablet 15 Mg PO Q4H PRN Reported Eliquis (Apixaban) 5 Mg Tablet 5 Mg PO BID ON HOLD POST-OP UNTIL 04-30-2021 Atorvastatin Calcium 20 Mg Tablet 20 Mg PO HS LAST FILLED 10-29-2020 #90/90 DAY SUPPLY Melatonin 5 Mg Tablet 5 Mg PO HS PRN Miralax (Polyethylene Glycol 3350) 17 Gm Powd.pack 17 Gm PO DAILY Senna Lax (Sennosides) 8.6 Mg Tablet 8.6-17.2 Mg PO BID PRN Vitamin D3 (Cholecalciferol (Vitamin D3)) 25 Mcg Tablet 25 Mcg PO DAILY Tylenol Extra Strength (Acetaminophen) 500 Mg Tablet 1,000 Mg PO Q8H PRN Magnesium (Magnesium Oxide) 400 Mg Tablet 400 Mg PO HS Vitamin C (Ascorbate Calcium) 500 Mg Tablet 500 Mg PO DAILY Neurontin (Gabapentin) 300 Mg Capsule 300 Mg PO HS Metoprolol Tartrate 25 Mg Tablet 12.5 Mg PO BID TAKES OF A 25MG TAB Novolog Flexpen (Insulin Aspart) 300 Units/3 Ml Solution 5 Units SC AC Ozempic (Semaglutide) 1 Mg/0.75 Ml Pen.injctr 1 Mg INJ SAT Ventolin Hfa (Albuterol Sulfate) 18 Gm Hfa.aer.ad 2 Puff INH Q4H PRN Januvia (Sitagliptin Phosphate) 100 Mg Tablet 100 Mg PO DAILY Levothyroxine Sodium 100 Mcg Tablet 100 Mcg PO DAILY Levemir Flextouch (Insulin Detemir) 100 Unit/1 Ml Insuln.pen 15 Units SC HS Furosemide 20 Mg Tablet 60 Mg PO DAILY TAKES 3 (20MG) TABS Assessment/Pt Instructions [facility] in 1 week Discharge Planning: <30 minutes discharge planning Discharge Instructions Discharge Diet: No Restrictions Activity as Tolerated: Yes Discharge Physical Examination Vital Signs Vital Signs Date Time Temp Pulse Resp B/P (MAP) Pulse Ox O2 Delivery O2 Flow Rate FiO2 05/03/21 07:46 36.5 80 20 165/70 (101) 92 High Flow N/C 2.00 05/02/21 16:17 28 General Appearance: No Apparent Distress, WD/WN, Chronically ill, Obese Allergies: Coded Allergies: diphenhydramine (Verified Allergy, Unknown, 05/13/20) Discharge Summary Date of Admission Apr 25, 2021 at 18:47 Date of Discharge Discharge Date: May 03, 2021 Discharge Diagnosis Discharge home tomorrow OKSANA SCHULTZ May 03, 2021 09:55
[2021-05-03] MEDS: RT--FLUTICASONE/SALMETEROL 232-14 (AIRDUO RespiCLICK) IH SCH (10:00)
[2021-05-03] MEDS: RT-ALBUTEROL/IPRATROPIUM 3 ML (DUONEB) VIAL INH SCH (10:00)
[2021-05-03 10:49] VITALS: BP 165/70
--- NOTE | 2021-05-03 13:30 | Progress Note ---
DILCIA EVANS 05/03/21 1330: Progress Note Discharge 70 yo female came to the hospital due to constipation and pain. She had surgery at on Thursday, 04/23 for left kidney removal and after discharge she still couldn't have a BM. She tried dulcolax and miralax without benefit. She has pain in her abdomen diffusely, but also some localized pain around her surgical site. She is non-ambulatory at baseline. Throughout her stay she was on a clear liquid diet, laxatives, and was given PT. On 05-01 at night she had 2 to 3 bowel movements and on 05-02 she reported to have a 90% reduction in abdominal pain. She continued to improve with less abdominal pain and more bowel movements on which was signed off by surgery and she is being discharged with home health, OT and PT. During her admission she also noted she was SOB. Her initial CXR showed new right basilar airspace opacity, may represent atelectasis or infection, so she was placed on zosyn and Vancomycin with N/C 4 L/min. Her last CXR on 05/01 showed questionable left basilar consolidation but she reported far less SOB so she was continued on zosyn and discontinued on Vancomycin. Her Bronchopulomary washings in both the left and right lungs showed Sherly and Actinobacter, and her mucus plug was removed which greatly improved her breathing. Her sodium levels on 04-29 was 133 and she was given saline and water restriction which resulted in her sodium levels being stabilized with her latest level of 134. ANGELITA SCHULTZ DO 05/04/21 0631: Supervisory-Addendum Brief Verification & Attestation Participated in pt care: history, MDM, physical Personally performed: exam, history, MDM, supervision of care Care discussed with: Medical Student Procedures: n/a Results interpretation: Verified all documentation Verification and Attestation of Medical Student E/M Service A medical student performed and documented this service in my presence. I reviewed and verified all information documented by the medical student and made modifications to such information, when appropriate. I personally performed the physical exam and medical decision making. Angelita Schultz May 04, 2021,06:31 CRISTINADILCIA May 03, 2021 13:30 ANGELITA SCHULTZ DO May 04, 2021 06:31
--- NOTE | 2021-05-07 11:46 | Physician Query Clarification ---
PQ-Uncertain Diagnosis Admission/Discharge Admission Date: Apr 25, 2021 at 18:47 Discharge Date: May 03, 2021 at 10:50 Dr. Sykes, The medical record reflects the following clinical scenario: History/Risk Factors: postop ileus, postop pain, mucous plug Clinical Findings: New right basilar airspace opacity, may represent atelectasis or infection. T36.3, WBC 12.0 Treatment: Albuterol, IV Piperacillin, IV Vancomycin Question: Is Pneumonia a clinically valid diagnosis? Pneumonia was documented in the in the H&P with no further documentation in the medical record. Not documented in the DS Please document a response in Progress Note or Discharge Summary. 1. Yes, clinically valid, condition resolved. 2. No, condition ruled out. 3. Other, with explanation of clinical findings. 4. Undetermined, no explanation for clinical findings. PHYSICIAN RESPONSE Diagnosis clinically valid: Yes, Conditon resolved Please remember a lack of response to the above will prompt a phone page by CDI/Coding staff. In responding to this query, please exercise your independent professional judgment. The purpose of this communication is to more accurately reflect the complexity of your patients condition. The fact that a question is asked does not imply that any particular answer is desired or expected. Thank you for your timely response to this clarification. Requestors name: Milly THIS PHYSICIAN QUERY FORM IS A PERMANENT PART OF THE MEDICAL RECORD MILLY MILLS May 07, 2021 11:46 OKSANA SYKES DO May 07, 2021 20:01
--- NOTE | 2021-05-07 11:56 | Physician Query Clarification ---
PQ-Intro New Diagnosis Admission/Discharge Admission Date: Apr 25, 2021 at 18:47 Discharge Date: May 03, 2021 at 10:50 Dr. Sykes, The medical record reflects the following clinical scenario: History/Risk Factors: postop ileus, postop pain, mucous plug, COPD on O2 post surgery Clinical Findings: accessory muscle use, rhonchi Treatment: HFNC/Vapotherm, Question: What condition best reflects the above clinical scenario? Please document a response in the Progress Noter or Discharge Summary. 1. acute on chronic respiratory failure 2. acute respiratory failure 3. No respiratory failure 4. Other, with explanation of the clinical findings. 5. Clinically undetermined, no explanation for the clinical findings. PHYSICIAN RESPONSE What condition reflects above: 1 Please remember a lack of response to the above will prompt a phone page by CDI/Coding staff. In responding to this query, please exercise your independent professional judgment. The purpose of this communication is to more accurately reflect the complexity of your patients condition. The fact that a question is asked does not imply that any particular answer is desired or expected. Thank you for your timely response to this clarification. Requestors name: Milly THIS PHYSICIAN QUERY FORM IS A PERMANENT PART OF THE MEDICAL RECORD MILLY MILLS May 07, 2021 11:56 OKSANA SYKES DO May 07, 2021 20:01
--- NOTE | 2021-05-07 12:05 | Physician Query Clarification ---
PQ-Further Specificity Admission/Discharge Admission Date: Apr 25, 2021 at 18:47 Discharge Date: May 03, 2021 at 10:50 Dr. Sykes, The medical record reflects the following clinical scenario: History/Risk Factors: s/p Lt nephrectomy d/t Lt renal cell carcinoma Clinical Findings: ileus Treatment: docolax, miralax, NPO, NGT, lactated ringers Question: Can you further specify if the postop ileus is a postop complication per the clinical indicators above? Please document a response in the Progress Notes or Discharge Summary. 1. Yes, the postop ileus is a postop complication 2. No, the postop ileus is not a postop complication 3. Other, with explanation of the clinical findings. 4. Clinically undetermined, no explanation for the clinical findings. PHYSICIAN RESPONSE Can you specify per above: 1 Please remember a lack of response to the above will prompt a phone page by CDI/ Coding staff. In responding to this query, please exercise your independent professional judgment. The purpose of this communication is to more accurately reflect the complexity of your patients condition. The fact that a question is asked does not imply that any particular answer is desired or expected. Thank you for your timely response to this clarification. Requestors name: Milly THIS PHYSICIAN QUERY FORM IS A PERMANENT PART OF THE MEDICAL RECORD MILLY MILLS May 07, 2021 12:04 OKSANA SYKES DO May 07, 2021 20:01
--- NOTE | 2021-05-09 07:05 | Physician Query Clarification ---
PQ-Further Specificity Admission/Discharge Admission Date: Apr 25, 2021 at 18:47 Discharge Date: May 03, 2021 at 10:50 Dr. Andrade, The medical record reflects the following clinical scenario: History/Risk Factors: postop ileus, acute on chronic respiratory failure, pneumonia, mucous plug Clinical Findings: CTA - There is also a question of a mucous plug involving the bronchus to the left lower lobe. Treatment: extirpation mucous plug Question: Can you further specify if the extirpation of the mucous plug was of the left lower lung or of the left lower bronchus per the clinical indicators above? Please document a response in the Progress Notes or Discharge Summary. 1. extirpation of the mucous plug was of the left lower lung 2. extirpation of the mucous plug was of the left lower bronchus 3. Other, with explanation of the clinical findings. 4. Clinically undetermined, no explanation for the clinical findings. PHYSICIAN RESPONSE Can you specify per above: 1 Please remember a lack of response to the above will prompt a phone page by CDI/Coding staff. In responding to this query, please exercise your independent professional judgment. The purpose of this communication is to more accurately reflect the complexity of your patients condition. The fact that a question is asked does not imply that any particular answer is desired or expected. Thank you for your timely response to this clarification. Requestors name: Milly THIS PHYSICIAN QUERY FORM IS A PERMANENT PART OF THE MEDICAL RECORD MILLY MILLS May 09, 2021 07:05 ANGELA ANDRADE DO May 09, 2021 12:32
--- NOTE | 2021-05-09 07:22 | Physician Query Clarification ---
PQ-Further Specificity Admission/Discharge Admission Date: Apr 25, 2021 at 18:47 Discharge Date: May 03, 2021 at 10:50 Dr. Sykes, The medical record reflects the following clinical scenario: History/Risk Factors: postop ileus, acute on chronic respiratory failure, pneumonia, mucous plug Clinical Findings: bronchial washings in both the left and right lungs showed emilia and actinobacter Treatment: IV Piperacillin, IV Vancomycin Question: Can you further specify the causitive organism(s) for the pneumonia per the clinical indicators above? Please document a response in the Progress Notes or Discharge Summary. 1. Emilia and actinobacter pneumonia 2. Causitive organism for the pneumonia undetermined 3. Other, with explanation of the clinical findings. 4. Clinically undetermined, no explanation for the clinical findings. PHYSICIAN RESPONSE Can you specify per above: 1 Please remember a lack of response to the above will prompt a phone page by CDI/Coding staff. In responding to this query, please exercise your independent professional judgment. The purpose of this communication is to more accurately reflect the complexity of your patients condition. The fact that a question is asked does not imply that any particular answer is desired or expected. Thank you for your timely response to this clarification. Requestors name: Ceci THIS PHYSICIAN QUERY FORM IS A PERMANENT PART OF THE MEDICAL RECORD CECI MILLS May 09, 2021 07:22 OKSANA SYKES DO May 09, 2021 10:36
== END 2021-05-03 10:50 | disposition home health service (06) | DRG 981 ==
LOC: EDUNIT# 17:48 → ER 17:50 → 4TH 18:47
PROVIDERS: ADMIT Family Medicine; ATTEND Internal Medicine
PROC: 5A0955A Assistance with Respiratory Ventilation, Greater than 96 Consecutive Hours, High Flow/Velocity Cannula (ICD-10-PCS; 2021-04-25)
PROC: 0B938ZZ Drainage of Right Main Bronchus, Via Natural or Artificial Opening Endoscopic (ICD-10-PCS; 2021-04-28)
PROC: 0B978ZZ Drainage of Left Main Bronchus, Via Natural or Artificial Opening Endoscopic (ICD-10-PCS; 2021-04-28)
PROC: 0BCJ8ZZ Extirpation of Matter from Left Lower Lung Lobe, Via Natural or Artificial Opening Endoscopic (ICD-10-PCS; principal; 2021-04-28 10:05)
DX: K91.89 Other postprocedural complications and disorders of digestive system (principal); J96.20 Acute and chronic respiratory failure, unspecified whether with hypoxia or hypercapnia; B37.1 Pulmonary candidiasis; J15.6 Pneumonia due to other Gram-negative bacteria; K56.7 Ileus, unspecified; T17.890A Other foreign object in other parts of respiratory tract causing asphyxiation, initial encounter; Z68.42 Body mass index [BMI] 45.0-49.9, adult; G89.18 Other acute postprocedural pain; J44.9 Chronic obstructive pulmonary disease, unspecified; E66.01 Morbid (severe) obesity due to excess calories; I48.91 Unspecified atrial fibrillation; K21.9 Gastro-esophageal reflux disease without esophagitis; I25.10 Atherosclerotic heart disease of native coronary artery without angina pectoris; F17.210 Nicotine dependence, cigarettes, uncomplicated; E11.9 Type 2 diabetes mellitus without complications; E78.5 Hyperlipidemia, unspecified; I10 Essential (primary) hypertension; G47.30 Sleep apnea, unspecified; M81.0 Age-related osteoporosis without current pathological fracture; M19.91 Primary osteoarthritis, unspecified site; E03.9 Hypothyroidism, unspecified; H54.7 Unspecified visual loss; H91.90 Unspecified hearing loss, unspecified ear; F41.9 Anxiety disorder, unspecified; Z89.611 Acquired absence of right leg above knee; Z20.822 Contact with and (suspected) exposure to COVID-19; Z85.528 Personal history of other malignant neoplasm of kidney; Z90.5 Acquired absence of kidney; Z99.81 Dependence on supplemental oxygen; Z79.01 Long term (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; Z79.52 Long term (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 systemic steroids; Y95 Nosocomial condition
CPT/HCPCS: 36415; 51702; 71045; 71275; 74176; 80048; 80053; 80076; 81000; 82947; 83605; 83735; 83880; 84145; 85025; 85027; 85610; 85730; 87015; 87040; 87070; 87077; 87081; 87088; 87101; 87116; 87205; 87206; 87636; 94640; 94664; 94760; 96374; 96375; 96376

== ENCOUNTER 2021-05-22 15:26 | Emergency (ER) | payer MEDICARE, MEDICAID ==
[~2021-05-22] VITALS: Ht 162.5 cm; Wt 126.5 kg
[~2021-05-22 15:26] MED LIST changes: +ACET-2267 PO; +ALBU18HF2 INH; +APIX5TAB PO; +ASCO-262 PO; +CHOL10004 PO; +FLUT1AER5 IH; +FURO20TA4 PO; +GABA300C PO; +INSU100I14 SC; +INSU100I29 SC; +LEVO100T7 PO; +MAGN400T39 PO; +MELA5TAB14 PO; +METO-333 PO; +METO50TA15 PO; +OXYC-525 PO; +PANT40TA52 PO; +POLY17PO6 PO; +SEMA1PEN3 INJ; +SITA100T12 PO; +SNN187T PO
[2021-05-22] MEDS ORDERED: RT-ALBUTEROL/IPRATROPIUM 3 ML (DUONEB) VIAL ONE (15:44)
[2021-05-22] MEDS ORDERED: LOPERAMIDE 2 MG (IMODIUM) TABLET ONE (15:44)
[2021-05-22 15:52] LABS: ABG BASE EXCESS 9.2 MMOL/L (-2.5-2.5); ABG OXYGEN SATURATION 97 % (94-100); ABG PCO2 54 MMHG (35-45); ABG PH 7.41 (7.37-7.43); ABG PO2 82 MMHG (79-93)
[2021-05-22 15:53] LABS: ALLENS TEST POSITIVE; INSPIRED O2 3; PATIENT TEMP 35.9; VENTILATOR NO
--- NOTE | 2021-05-22 15:54 | ED GI ---
General Chief Complaint: Abdominal/GI Problems Stated Complaint: N/V,DIARRHEA Nursing Triage Note: ARRIVES VIA [facility] C/O DIARRHEA X 2 DAYS. LIVES AT HOME IN [facility]. Source of Information: Patient Exam Limitations: No Limitations (KHRIS POSADA APRN) History of Present Illness Date Seen by Provider: May 22, 2021 Time Seen by Provider: 15:20 Initial Comments To ER by [facility] from home with reports of diarrhea watery in nature for the past 2 days. Intermittent diffuse abdominal cramping no fevers. Very extensive medical history. She had a left nephrectomy on 04/23/2021 at the [facility] and discharged the next day. She was admitted here on about 26 April for postoperative ileus and pain control.. She has a prior history of right below the hip amputation following "infection" near the knee last year also at . PMH includes morbid obesity, GERD, A. fib on Eliquis, COPD chronic bronchitis wearing supplemental oxygen at 3 L/min per nasal cannula. Smokes 1/2 pack of cigarettes per day. History of type 2 diabetes hypertension hyperlipidemia. She denies fevers chills nausea or vomiting. Timing/Duration: 1-2 Days Severity/Quality: Moderate, Cramping Location: Generalized Abdomen Radiation: No Radiation Activities at Onset: None Associated Symptoms: No Nausea/Vomiting (KHRIS POSADA APRN) Allergies and Home Medications Allergies Coded Allergies: diphenhydramine (Verified Allergy, Unknown, 05/13/20) Patient Home Medication List Home Medication List Reviewed: Yes (KHRIS POSADA APRN) Acetaminophen (Tylenol Extra Strength) 500 Mg Tablet, 1,000 MG PO Q8H PRN for PAIN-MILD (1-4), (Reported) Entered as Reported by: FAMILIA BLUE on 04/26/21 1014 Albuterol Sulfate (Ventolin Hfa) 18 Gm Hfa.aer.ad, 2 PUFF INH Q4H PRN for SHORTNESS OF BREATH, (Reported) Entered as Reported by: FAMILIA BLUE on 04/26/21 1014 Apixaban (Eliquis) 5 Mg Tablet, 5 MG PO BID, (Reported) Entered as Reported by: FAMILIA BLUE on 04/26/21 1014 Ascorbate Calcium (Vitamin C) 500 Mg Tablet, 500 MG PO DAILY, (Reported) Entered as Reported by: FAMILIA BLUE on 04/26/21 1014 Atorvastatin Calcium (Atorvastatin Calcium) 20 Mg Tablet, 20 MG PO HS, ( Reported) Entered as Reported by: FAMILIA BLUE on 04/26/21 1014 Cholecalciferol (Vitamin D3) (Vitamin D3) 25 Mcg Tablet, 25 MCG PO DAILY, (Reported) Entered as Reported by: FAMILIA BLUE on 04/26/21 101 Fluticasone/Salmeterol (Fluticasone-Salmeterol 232-14) 1 Each Aer.pow.ba, 0 EACH IH RTBID Prescribed by: OKSANA SCHULTZ on 05/03/21951 Furosemide (Furosemide) 20 Mg Tablet, 60 MG PO DAILY, (Reported) Entered as Reported by: FAMILIA BLUE on 04/26/21 101 Gabapentin (Neurontin) 300 Mg Capsule, 300 MG PO HS, (Reported) Entered as Reported by: FAMILIA BLUE on 04/26/21 101 Insulin Aspart (Novolog Flexpen) 300 Units/3 Ml Solution, 5 UNITS SC AC, (Reported) Entered as Reported by: FAMILIA BLUE on 04/26/21 1014 Insulin Detemir (Levemir Flextouch) 100 Unit/1 Ml Insuln.pen, 15 UNITS SC HS, (Reported) Entered as Reported by: FAMILIA BLUE on 04/26/21 101 Levothyroxine Sodium (Levothyroxine Sodium) 100 Mcg Tablet, 100 MCG PO DAILY, (Reported) Entered as Reported by: FAMILIA BLUE on 04/26/21 101 Magnesium Oxide (Magnesium) 400 Mg Tablet, 400 MG PO HS, (Reported) Entered as Reported by: FAMILIA BLUE on 04/26/21 101 Melatonin (Melatonin) 5 Mg Tablet, 5 MG PO HS PRN for SLEEP, (Reported) Entered as Reported by: FAMILIA BLUE on 04/26/21 101 Metoprolol Tartrate (Metoprolol Tartrate) 50 Mg Tablet, 50 MG PO BID Prescribed by: OKSANA SCHULTZ on 05/03/21951 Metronidazole (Flagyl) 500 Mg Tablet, 500 MG PO TID Prescribed by: KHRIS POSADA on 05/22/211814 Oxycodone HCl (Oxycodone HCl) 15 Mg Tablet, 15 MG PO Q4H PRN for PAIN-SEVERE (8- 10) Prescribed by: OKSANA SCHULTZ on 05/03/21 0953 Pantoprazole Sodium (Pantoprazole Sodium) 40 Mg Tablet.dr, 40 MG PO DAILY Prescribed by: OKSANA SCHULTZ on 05/03/21 0952 Polyethylene Glycol 3350 (Miralax) 17 Gm Powd.pack, 17 GM PO DAILY, (Reported) Entered as Reported by: FAMILIA BLUE on 04/26/21 1014 Semaglutide (Ozempic) 1 Mg/0.75 Ml Pen.injctr, 1 MG INJ SAT, (Reported) Entered as Reported by: FAMILIA BLUE on 04/26/21 1014 Sennosides (Senna Lax) 8.6 Mg Tablet, 8.6-17.2 MG PO BID PRN for CONSTIPATION- 5TH LINE, (Reported) Entered as Reported by: FAMILIA BLUE on 04/26/21 1014 Sitagliptin Phosphate (Januvia) 100 Mg Tablet, 100 MG PO DAILY, (Reported) Entered as Reported by: FAMILIA BLUE on 04/26/21 1014 Review of Systems Review of Systems Constitutional: see HPI EENTM: No Symptoms Reported Respiratory: No Symptoms Reported Cardiovascular: No Symptoms Reported Gastrointestinal: See HPI, Abdominal Pain, Diarrhea Musculoskeletal: no symptoms reported Skin: no symptoms reported Psychiatric/Neurological: No Symptoms Reported Endocrine: No Symptoms Reported (KHRIS POSADA APRN) Past Sdtzdqn-Urvxla-Urbltf Hx Patient Social History Tobacco Use?: Yes Tobacco type used: Cigarettes Smoking Status: Current Everyday Smoker Use of E-Cig and/or Vaping dev: No Substance use?: No Alcohol Use?: No Pt feels they are or have been: No (KHRIS POSADA APRN) Immunizations Up To Date Tetanus Booster (TDap): Unknown Influenza Vaccine Up-to-Date: No; Not Current First/Initial COVID19 Vaccinat: 01/28 Second COVID19 Vaccination [place]: 01/28 (KHRIS POSADA APRN) Seasonal Allergies Seasonal Allergies: No (KHRIS POSADA APRN) Past Medical History Surgery/Hospitalization HX: R SIDE ABOVE KNEE AMPUTATION; left nephrectomy 04/23/21 Surgeries: Yes Nephrectomy Respiratory: Yes Asthma, Chronic Bronchitis, Sleep Apnea Cardiac: Yes Coronary Artery Disease, High Cholesterol, Hypertension Neurological: Yes Neuropathy 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 Sexually Transmitted Disease: No Genitourinary: Yes Renal Failure Gastrointestinal: Yes Gastroesophageal Reflux Musculoskeletal: Yes Amputee, Osteoporosis, Arthritis, Chronic Back Pain Endocrine: Yes Hypothyroidsim, Diabetes, Non-Insulin dep HEENT: Yes Cataract Loss of Vision: Left Hearing Impairment: Hard of Hearing Cancer: Yes Kidney Psychosocial: Yes Anxiety Integumentary: No Blood Disorders: No (KHRIS POSADA APRN) Family Medical History Heart Disease, Diabetes (KHRIS POSADA APRN) Physical Exam Vital Signs Vital Signs - First Documented 05/22/21 15:31 Temp 35.9 Pulse 80 Resp 20 B/P (MAP) 165/98 (120) Pulse Ox 90 O2 Delivery Nasal Cannula O2 Flow Rate 2.00 (CLEMENTE PEREZ DO) Vital Signs Capillary Refill : Less Than 3 Seconds (KHRIS POSADA APRN) Height/Weight/BMI Height: '64.00" Weight: 261lbs. oz. [id number]; 47.00 BMI Method: General Appearance: WD/WN, no apparent distress, obese (Somnolent. Oxygen 96% on her baseline 3 L.) Neck: non-tender, full range of motion Respiratory: no respiratory distress, no accessory muscle use, other (Rhonchi and faint wheezing) Cardiovascular: regular rate, rhythm, no murmur Gastrointestinal: normal bowel sounds, non tender, soft Extremities: normal range of motion, non-tender Neurologic/Psychiatric: alert, normal mood/affect, oriented x 3 Skin: normal color, warm/dry (KHRIS POSADA APRN) Progress/Results/Core Measures Results/Orders Lab Results Laboratory Tests Test 05/22/21 15:30 05/22/21 15:45 05/22/21 16:34 Range/Units Sodium Level 134 L 135-145 MMOL/L Potassium Level 4.3 3.6-5.0 MMOL/L Chloride Level 94 L 98-107 MMOL/L Carbon Dioxide Level 28 21-32 MMOL/L Anion Gap 12 5-14 MMOL/L Blood Urea Nitrogen 12 7-18 MG/DL Creatinine 1.11 0.60-1.30 MG/DL Estimat Glomerular Filtration Rate 49 BUN/Creatinine Ratio 11 Glucose Level 139 H 70-105 MG/DL Calcium Level 9.0 8.5-10.1 MG/DL Corrected Calcium 9.7 8.5-10.1 MG/DL Magnesium Level 2.1 1.6-2.4 MG/DL Total Bilirubin 0.5 0.1-1.0 MG/DL Aspartate Amino Transf (AST/SGOT) 29 5-34 U/L Alanine Aminotransferase (ALT/SGPT) 15 0-55 U/L Alkaline Phosphatase 72 40-136 U/L Total Protein 7.0 6.4-8.2 GM/DL Albumin 3.1 L 3.2-4.5 GM/DL Blood Gas Puncture Site RIGHT RADIAL Blood Gas Patient Temperature 35.9 Arterial Blood pH 7.41 7.37-7.43 Arterial Blood Partial Pressure CO2 54 H 35-45 MMHG Arterial Blood Partial Pressure O2 82 79-93 MMHG Arterial Blood HCO3 34 H 23-27 MMOL/L Arterial Blood Total CO2 36.0 H 21.0-31.0 MMOL/L Arterial Blood Oxygen Saturation 97 94-100 % Arterial Blood Base Excess 9.2 H -2.5-2.5 MMOL/L Jerrell Test POSITIVE Blood Gas Ventilator Setting NO Blood Gas Inspired Oxygen 3 White Blood Count 9.8 4.3-11.0 10^3/uL Red Blood Count 3.94 3.80-5.11 10^6/uL Hemoglobin 11.5 11.5-16.0 g/dL Hematocrit 38 35-52 % Mean Corpuscular Volume 95 80-99 fL Mean Corpuscular Hemoglobin 29 25-34 pg Mean Corpuscular Hemoglobin Concent 31 L 32-36 g/dL Red Cell Distribution Width 16.6 H 10.0-14.5 % Platelet Count 285 130-400 10^3/uL Mean Platelet Volume 9.2 9.0-12.2 fL Immature Granulocyte % (Auto) 1 % Neutrophils (%) (Auto) 69 42-75 % Lymphocytes (%) (Auto) 14 12-44 % Monocytes (%) (Auto) 8 0-12 % Eosinophils (%) (Auto) 9 0-10 % Basophils (%) (Auto) 0 0-10 % Neutrophils # (Auto) 6.8 1.8-7.8 10^3/uL Lymphocytes # (Auto) 1.4 1.0-4.0 10^3/uL Monocytes # (Auto) 0.7 0.0-1.0 10^3/uL Eosinophils # (Auto) 0.9 H 0.0-0.3 10^3/uL Basophils # (Auto) 0.0 0.0-0.1 10^3/uL Immature Granulocyte # (Auto) 0.1 0.0-0.1 10^3/uL B-Type Natriuretic Peptide 97.6 <100.0 PG/ML (KRISTAN PEREZA Sinan MICHAELS) Medications Given in ED Current Medications Medications Dose Ordered Sig/Jordan Route Start Time Stop Time Status Last Admin Dose Admin Albuterol/ Ipratropium 3 ml ONCE ONCE INH 05/22/21 16:00 05/22/21 16:01 DC 05/22/21 15:51 3 ML Loperamide HCl 4 mg ONCE ONCE PO 05/22/21 16:00 05/22/21 16:01 DC 05/22/21 15:52 4 MG (CLEMENTE PEREZ DO) Vital Signs/I&O 05/22/21 05/22/21 15:31 15:45 Temp 35.9 Pulse 80 Resp 20 B/P (MAP) 165/98 (120) Pulse Ox 90 O2 Delivery Nasal Cannula Nasal Cannula O2 Flow Rate 2.00 2.00 (ANACLEMENTE Sinan MICHAELS) Blood Pressure Mean: 120 Departure Communication (Admissions) 181-Given the recent antibiotic use of Zosyn plus IV vancomycin last month for possible abdominal wall abscess versus cellulitis postoperatively a C. difficile is possible. However she was unable to provide us with a sample here in the ER. I will discharge home empirically on Flagyl until she can provide a stool sample for culture and sensitivity. This can be arranged outpatient. Other than feeling lethargic at this time she has no indication for admission. Hemodynamically stable. Received a liter of IV fluids and is producing urine, she is urinated twice since she has been here. Discussed with her the plan to go home and she is good with this plan. Updated her daughter on this as well by nursing staff.. She will need to be transported home by EMS given her morbid obesity and only 1 leg and she is unable to get into a car. Considering her extensive comorbidities and poor overall health status if this is C. difficile she would be at high risk for progression to severe disease and for this reason I will empirically treat with Flagyl. (KHRIS POSADA APRN) Impression Primary Impression: Colitis Additional Impression: COPD (chronic obstructive pulmonary disease) Disposition: HOME, SELF-CARE Condition: Stable Departure-Patient Inst. Decision time for Depature: 18:10 (KHRIS POSADA APRN) Referrals: [facility] (PCP/Family) Primary Care Physician Patient Instructions: No Instuctions Given Add. Discharge Instructions: It is possible that your diarrhea represents C. difficile infection. Follow-up with primary care to provide a stool sample. Return to ER for any worsening. All discharge instructions reviewed with patient and/or family. Voiced understanding. Scripts Metronidazole (Flagyl) 500 Mg Tablet 500 MG PO TID, #30 TAB Prov: KHRIS POSADA APRN 05/22/21 ATTENDING PHYSICIAN NOTE: I WAS PHYSICALLY PRESENT ER PHYSICIAN, STARTING SHIFT AT 1800. I WAS NOT INVOLVED IN ANY DECISION MAKING OR ANY CARE OF THIS PATIENT (CLEMENTE PEREZ DO) KHRIS POSADA APRN May 22, 2021 15:54 CLEMENTE PEREZ DO May 22, 2021 18:41
[2021-05-22 15:59] LABS: ALBUMIN 3.1 GM/DL (3.2-4.5); POTASSIUM 4.3 MMOL/L (3.6-5.0)
[2021-05-22] MEDS ORDERED: LACTATED RINGERS 1,000 ML IV SCH (16:00)
[2021-05-22] MEDS ORDERED: RT-ALBUTEROL/IPRATROPIUM 3 ML (DUONEB) VIAL INH ONE (16:00)
[2021-05-22] MEDS ORDERED: LOPERAMIDE 2 MG (IMODIUM) TABLET PO ONE (16:00)
[2021-05-22 16:03] LABS: BILIRUBIN,TOTAL 0.5 MG/DL (0.1-1.0)
[2021-05-22 16:05] LABS: CREATININE SERUM 1.11 MG/DL (0.60-1.30)
[2021-05-22 16:08] LABS: MAGNESIUM 2.1 MG/DL (1.6-2.4)
[2021-05-22 16:41] LABS: BASOPHILS % (AUTO) 0 % (0-10); EOSINOPHILS # (AUTO) 0.9 10^3/uL (0.0-0.3); EOSINOPHILS % (AUTO) 9 % (0-10); HEMATOCRIT 38 % (35-52); HEMOGLOBIN 11.5 g/dL (11.5-16.0); LYMPHOCYTES # (AUTO) 1.4 10^3/uL (1.0-4.0); LYMPHOCYTES % (AUTO) 14 % (12-44); MEAN CORPUSCULAR HEMOGLOBIN 29 pg (25-34); MEAN CORPUSCULAR HGB CONC 31 g/dL (32-36); MEAN CORPUSCULAR VOLUME 95 fL (80-99); MEAN PLATELET VOLUME 9.2 fL (9.0-12.2); MONOCYTES # (AUTO) 0.7 10^3/uL (0.0-1.0); MONOCYTES % (AUTO) 8 % (0-12); NEUTROPHILS # (AUTO) 6.8 10^3/uL (1.8-7.8); NEUTROPHILS % (AUTO) 69 % (42-75); PLATELET COUNT 285 10^3/uL (130-400); WHITE BLOOD COUNT 9.8 10^3/uL (4.3-11.0)
--- NOTE | 2021-05-22 16:58 | Diagnostic Imaging Report ---
EXAMINATION: CT abdomen and pelvis without contrast. TECHNIQUE: Multiple contiguous axial images were obtained through the abdomen and pelvis without the use of intravenous contrast. All CT scans use one or more of the following dose optimizing techniques: Automated exposure control, MA and/or KvP adjustment based on patient size and exam type or iterative reconstruction. HISTORY: Diarrhea, abdominal pain. COMPARISON: 04/25/2021. FINDINGS: Lung bases: The lung bases are clear. Solid organs: The liver is normal. The gallbladder is surgically absent. There is no biliary ductal dilation. Pancreas is normal. Spleen is normal. Adrenal glands are normal. The left kidney is nonvisualized and may be surgically or congenitally absent. The right kidney is unremarkable without hydronephrosis or visualized renal calculus. There is a right renal cortical cyst which requires no follow-up. Bowel: The stomach and small bowel are normal without obstruction. There is diverticulosis of the sigmoid colon. There is mild inflammatory stranding seen along the proximal aspect of the sigmoid colon and distal descending colon with mild wall thickening (series 2, image 65). There are no findings of acute appendicitis. Peritoneum: There is no intraperitoneal free fluid or free air. No suspicious lymphadenopathy. Vasculature: Calcification of the aorta without aneurysm. Musculoskeletal: Degenerative changes of the spine without suspicious osseous lesion or compression fracture. There is a 7.8 x 3.1 cm fluid collection along the right abdominal wall subcutaneous tissues which is unchanged. There is a periumbilical hernia which contains a loop of small bowel without obstruction. There is a fat-containing right inguinal hernia. There is redemonstrated air and fluid seen along the left abdominal subcutaneous tissues. The largest collection measures 11.5 x 5.5 cm. There is decreased air component but increased fluid component compared to 04/25/2021. There is edema or stranding seen along the left abdominal wall. Surgical changes are seen along the right hip. Pelvis: The uterus is surgically absent. No adnexal mass. The urinary bladder is normal. IMPRESSION: 1. Wall thickening and inflammatory stranding seen within the distal descending and proximal sigmoid colon. Findings could be seen with infectious or inflammatory colitis, although diverticulitis could have a similar appearance. No focally inflamed diverticula are seen. No adjacent abscess or free air. 2. Stable loculated fluid collection within the right abdominal subcutaneous tissues. Redemonstrated loculated air and fluid collection within the left abdominal subcutaneous tissues with increased fluid and decreased air. Dictated by: Dictated on workstation # [id number]
--- NOTE | 2021-05-22 17:02 | Diagnostic Imaging Report ---
INDICATION: Cough. COMPARISON: 05/01/2021 FINDINGS: Single frontal radiograph view of the chest was obtained and demonstrates persistent moderate cardiomegaly with pulmonary vascular congestion and diffuse prominence of pulmonary interstitium. There are more focal patchy alveolar opacities within the left base. Left base does appear improved when compared to prior exam, this may be related to differences in positioning of the overlying soft tissues. No large effusion or pneumothorax is seen. Osseous structures show no acute abnormalities. IMPRESSION: 1. Cardiomegaly and pulmonary vascular congestion. 2. Persistent consolidative densities of the left base concerning for pneumonia. 3. Diffuse coarse prominence interstitial. This may be on the basis of background chronic interstitial lung disease, although superimposed interstitial pneumonia or edema is also consideration. Follow-up is advised. Dictated by: Dictated on workstation # [id number]
[2021-05-22] MEDS ORDERED: METR500T PO (18:15)
[2021-05-22 19:31] VITALS: BP 159/84
[2021-05-23] MEDS ORDERED: METO50TA15 PO (17:06)
[2021-05-23] MEDS ORDERED: SITA100T12 PO (17:25)
[2021-05-23] MEDS ORDERED: OXYC-525 PO (17:25)
== END 2021-05-22 19:58 | disposition home or self-care (01) ==
LOC: EDUNIT# 15:26 → ER 15:28
DX: K52.9 Noninfective gastroenteritis and colitis, unspecified (principal); J44.9 Chronic obstructive pulmonary disease, unspecified; G47.30 Sleep apnea, unspecified; I10 Essential (primary) hypertension; E66.01 Morbid (severe) obesity due to excess calories; E78.00 Pure hypercholesterolemia, unspecified; K21.9 Gastro-esophageal reflux disease without esophagitis; G89.29 Other chronic pain; M54.9 Dorsalgia, unspecified; E03.9 Hypothyroidism, unspecified; I25.10 Atherosclerotic heart disease of native coronary artery without angina pectoris; E11.9 Type 2 diabetes mellitus without complications; I48.91 Unspecified atrial fibrillation; F17.210 Nicotine dependence, cigarettes, uncomplicated; Z68.42 Body mass index [BMI] 45.0-49.9, adult; Z79.01 Long term (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; Z79.899 Other long term (current) drug therapy; Z79.891 Long term (current) use of opiate analgesic; Z79.890 Hormone replacement therapy
CPT/HCPCS: 36415; 71045; 74176; 80053; 82805; 83735; 83880; 85025; 87324; 87449; 87493

== ENCOUNTER 2021-05-23 05:14 | Inpatient (IN) | payer MEDICARE, MEDICAID ==
[~2021-05-23] VITALS: Ht 162.5 cm; Wt 119.0 kg
[~2021-05-23 05:14] MED LIST changes: +METR500T PO
[2021-05-23] MEDS ORDERED: fentaNYL INJ 100 MCG/2 ML AMP IVP STA (05:18)
--- NOTE | 2021-05-23 05:18 | ED Abdominal Pain ---
General Stated Complaint: ABD PAIN Source of Information: Patient, Old Records History of Present Illness Date Seen by Provider: May 23, 2021 Time Seen by Provider: 05:18 Initial Comments PT ARRIVES VIA [facility] FROM HOME PT WAS SEEN HERE IN ER 12 HOURS AGO FOR THIS SAME COMPLAINT PT C/O DIFFUSE ABDOMINAL PAIN FOR THE LAST 2-3 DAYS HAS HAD DIARRHEA FOR THE LAST 2-3 DAYS, BUT HAS NOT HAD ANY STOOLS SINCE SHE WAS HERE IN ER . NO BLACK/BLOODY/TARRY STOOLS HAD NOT HAD ANY NAUSEA OR VOMITING, UNTIL THE AMBULANCE RIDE HERE AND HAD DRY HEAVES/VOMITED A SMALL AMOUNT EN ROUTE NO KNOWN FEVER PT STATES SHE HAS BEEN URINATING OK PT TOOK 1 OXYCODONE AN HOUR AGO WITHOUT RELIEF, SO CALLED EMS PT HAS NOT TAKEN ANY OF HER HOME MEDICATIONS SINCE BEFORE SHE WAS HERE IN ER YESTERDAY ,AND HAS NOT TAKEN ANY PAIN MEDICATION AT ANY OTHER TIME THAN 1 HOUR AGO. PT WAS ADMITTED HERE 04/25-05/03/21 FOR A POST OP ILEUS, AFTER HAVING A LEFT NEPHRECTOMY AT ON 04/23/21, FOR RENAL CELL CARCINOMA PT DEVELOPED SUSPECTED PNEUMONIA AND WAS ON ZOSYN + VANCOMYCIN, BUT ALSO HAD AN ABDOMINAL WALL ABSCESS/CELLULITIS. 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 DOES HOME VISITS Allergies and Home Medications Allergies Coded Allergies: diphenhydramine (Verified Allergy, Unknown, 05/13/20) Patient Home Medication List Home Medication List Reviewed: Yes Acetaminophen (Tylenol Extra Strength) 500 Mg Tablet, 1,000 MG PO Q8H PRN for P AIN-MILD (1-4), (Reported) Entered as Reported by: FAMILIA BLUE on 04/26/21 1014 Albuterol Sulfate (Ventolin Hfa) 18 Gm Hfa.aer.ad, 2 PUFF INH Q4H PRN for SHORTNESS OF BREATH, (Reported) Entered as Reported by: FAMILIA BLUE on 04/26/21 1014 Apixaban (Eliquis) 5 Mg Tablet, 5 MG PO BID, (Reported) Entered as Reported by: FAMILIA BLUE on 04/26/21 101 Ascorbate Calcium (Vitamin C) 500 Mg Tablet, 500 MG PO DAILY, (Reported) Entered as Reported by: FAMILIA BLUE on 04/26/21 101 Atorvastatin Calcium (Atorvastatin Calcium) 20 Mg Tablet, 20 MG PO HS, (Reported) Entered as Reported by: FAMILIA BLUE on 04/26/21 101 Cholecalciferol (Vitamin D3) (Vitamin D3) 25 Mcg Tablet, 25 MCG PO DAILY, (Reported) Entered as Reported by: FAMILIA BLUE on 04/26/21 101 Fluticasone/Salmeterol (Fluticasone-Salmeterol 232-14) 1 Each Aer.pow.ba, 0 EACH IH RTBID Prescribed by: OKSANA SCHULTZ on 05/03/21951 Furosemide (Furosemide) 20 Mg Tablet, 60 MG PO DAILY, (Reported) Entered as Reported by: FAMILIA BLUE on 04/26/21 101 Gabapentin (Neurontin) 300 Mg Capsule, 300 MG PO HS, (Reported) Entered as Reported by: FAMILIA BLUE on 04/26/211013 Insulin Aspart (Novolog Flexpen) 300 Units/3 Ml Solution, 5 UNITS SC AC, (Reported) Entered as Reported by: FAMILIA BLUE on 04/26/211013 Insulin Detemir (Levemir Flextouch) 100 Unit/1 Ml Insuln.pen, 15 UNITS SC HS, (Reported) Entered as Reported by: FAMILIA BLUE on 04/26/21 101 Levothyroxine Sodium (Levothyroxine Sodium) 100 Mcg Tablet, 100 MCG PO DAILY, (Reported) Entered as Reported by: FAMILIA BLUE on 04/26/211013 Magnesium Oxide (Magnesium) 400 Mg Tablet, 400 MG PO HS, (Reported) Entered as Reported by: FAMILIA BLUE on 04/26/211013 Melatonin (Melatonin) 5 Mg Tablet, 5 MG PO HS PRN for SLEEP, (Reported) Entered as Reported by: FAMILIA BLUE on 04/26/211013 Metoprolol Tartrate (Metoprolol Tartrate) 50 Mg Tablet, 50 MG PO BID Prescribed by: OKSANA SCHULTZ on 05/03/21951 Metronidazole (Flagyl) 500 Mg Tablet, 500 MG PO TID Prescribed by: KHRIS POSADA on 05/22/21 181 Oxycodone HCl (Oxycodone HCl) 15 Mg Tablet, 15 MG PO Q4H PRN for PAIN-SEVERE (8- 10) Prescribed by: OKSANA SCHULTZ on 05/03/21 09 Pantoprazole Sodium (Pantoprazole Sodium) 40 Mg Tablet.dr, 40 MG PO DAILY Prescribed by: OKSANA SCUHLTZ on 05/03/21 0952 Polyethylene Glycol 3350 (Miralax) 17 Gm Powd.pack, 17 GM PO DAILY, (Reported) Entered as Reported by: FAMILIA BLUE on 04/26/21 1014 Semaglutide (Ozempic) 1 Mg/0.75 Ml Pen.injctr, 1 MG INJ SAT, (Reported) Entered as Reported by: FAMILIA BLUE on 04/26/21 1014 Sennosides (Senna Lax) 8.6 Mg Tablet, 8.6-17.2 MG PO BID PRN for CONSTIPATION- 5TH LINE, (Reported) Entered as Reported by: FAMILIA BLUE on 04/26/21 1014 Sitagliptin Phosphate (Januvia) 100 Mg Tablet, 100 MG PO DAILY, (Reported) Entered as Reported by: FAMILIA BLUE on 04/26/21 1014 Review of Systems Review of Systems Constitutional: No fever Respiratory: No Symptoms Reported; Denies Cough; Other (COPD --NO INCREASE IN CHRONIC SHORTNESS OF BREATH. HOME O2 AT 3-4L/NC CONTINUOUSLY. PT CONTINUES TO SMOKE UP TO 1 PPD--DOWN FROM 3 PPD. ) Cardiovascular: No Symptoms Reported; Denies Chest Pain Gastrointestinal: See HPI, Abdominal Pain, Diarrhea, Nausea, Poor Appetite, Vomiting Genitourinary: No Symptoms Reported Musculoskeletal: back pain Skin: other (MULTIPLE SORES TO FACE AND ARMS--PT ADMITS TO SELF-PICKING CONSTANTLY) Psychiatric/Neurological: No Symptoms Reported Past Gvgsjwi-Qgyges-Bmldeh Hx Patient Social History Tobacco Use?: Yes Tobacco type used: Cigarettes Smoking Status: Current Everyday Smoker Substance use?: No Alcohol Use?: No Immunizations Up To Date Tetanus Booster (TDap): Unknown First/Initial COVID19 Vaccinat: 01/28 Second COVID19 Vaccination Roscoe: 01/28 Seasonal Allergies Seasonal Allergies: No Past Medical History Surgery/Hospitalization HX: R SIDE ABOVE KNEE AMPUTATION; left nephrectomy 04/23/21 Surgeries: Yes Abdominal, Amputation, Appendectomy, Bladder Surgery, Bowel Surgery, Gallbladder, Hysterectomy, Nephrectomy, Orthopedic, Thyroidectomy Respiratory: Yes (O2 AT 3-4 L/NC CONTINUOUSLY) Asthma, Pneumonia, Chronic Bronchitis, Sleep Apnea, COPD Cardiac: Yes (CHF) Atrial Fibrillation, Coronary Artery Disease, High Cholesterol, Hypertension Neurological: Yes 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 PAIN ) Amputee, Osteoporosis, Arthritis, Chronic Back Pain Endocrine: Yes (MORBID OBESITY) Hypothyroidsim, Diabetes, Non-Insulin dep HEENT: Yes Cataract Loss of Vision: Left Hearing Impairment: Hard of Hearing Cancer: Yes Kidney Did You Recieve Any Treatments: Yes What Type of Treatment Did You: Surgical Intervention LEFT NEPHRECTOMY 04/23/21 AT FOR RENAL CELL CARCINOMA. Psychosocial: Yes Anxiety Integumentary: Yes ("SKIN PICKING" ; WOUND INFECTIONS) Blood Disorders: No Family Medical History Heart Disease, Diabetes SOCIAL HISTORY: -SMOKES 3 PPD -ETOH--DENIES USE -DRUGS--DENIES USE PAST SURGICALHISTORY: -11/2020--COMPLETE RIGHT LEG AMPUTATATION AT HIP FOR OSTEOMYELITIS/SEPTIC HIP JOINT. DONE AT -04/23/21--LEFT NEPHRECTOMY FOR RENAL CELL CARCINOMA. DONE AT DEVELOPED POST OP ILEUS AND ADMITTED HERE 04/25-05/03/21, ALSO HAD ABDOMINAL WALL ABSCESS/CELLULITIS. SHE WAS ALSO TREATED FOR SUSPECTED PNEUMONIA. ALSO HAD A BRONCHOSCOPY 04/25/21 DURING THAT ADMISSION HERE, FOR REMOVAL OF MUCOUS PLUG -COLON SURGERY/REPAIR--UNKNOWN REASON/CAUSE -HYSTERECTOMY/BILATERAL SALPINGO-OOPHORECTOMY -CHOLECYSTECTOMY -APPENDECTOMY -BLADDER SLING AND LATER REMOVAL -THYROIDECTOMY FOR GOITER -CARDIAC CATH--NO INTERVENTION Physical Exam Vital Signs Vital Signs - First Documented 05/23/21 05:20 Temp 36.1 Pulse 86 Resp 20 B/P (MAP) 172/92 (118) Pulse Ox 92 O2 Delivery Nasal Cannula O2 Flow Rate 3.00 Capillary Refill : Height/Weight/BMI Height: '64.00" Weight: 261lbs. oz. 118.889975hn; 47.00 BMI Method: General Appearance: obese (MORBIDLY OBESE), other (DIRTY, REEKS OF CIGARETTES; PT VERY DRAMATIC, IS MOANING AND WAILING SHE IS BEING WHEELED INTO ER BY EMS. PT REPEATING "I'M DYIN" AND "OH GOD" --THIS BEHAVIOR DECREASES AFTER SHE IS SETTLED IN ER. ) HEENT: other (EDENTULOUS. ORAL MUCOSA IS MOIST) Respiratory: normal breath sounds, no respiratory distress, no accessory muscle use Cardiovascular: regular rate, rhythm, no murmur Gastrointestinal: normal bowel sounds, other (DIFFUSE TENDERNESS. ) Extremities: other (COMPLETE RIGHT LEG AMPUTATION AT HIP) Neurologic/Psychiatric: no motor/sensory deficits (GROSSLY INTACT), alert, oriented x 3 Skin: warm/dry, other (EXTENSIVE SORES/SCARS/SCABS TO FACE AND ARMS FROM SELF PICKING. ) Focused Exam Sepsis Stage: Sepsis Possible Source: GI Tract/Intra-Abdominal Time of Focused Exam: 05:45 Respiratory: Lungs Clear, Normal Breath Sounds, No Accessory Muscle Use, No Respiratory Distress Cardiovascular: Regular Rate, Rhythm, No Murmur Capillary Refill: Less Than 3 Seconds Skin: normal color, warm/dry Within 3hrs of presentation: Admin fluids, Admin ABX, Blood cultures prior to ABX's, Focus exam, Lactate level Progress/Results/Core Measures Results/Orders My Orders Orders - CLEMENTE PEREZ DO Ed Iv/Invasive Line Start (05/23/21 05:18) Catheter(Urinary) Insert & Ass 03,15 (05/23/21 05:18) Monitor-Rhythm Ecg Trace Only (05/23/21 05:18) Ed Iv/Invasive Line Start (05/23/21 05:18) Lactated Ringers (Lr 1000 Ml Iv Solution (05/23/21 05:30) Cbc With Automated Diff (05/23/21 05:18) Comprehensive Metabolic Panel (05/23/21 05:18) Blood Culture (05/23/21 05:18) Sputum Culture (05/23/21 05:18) Urinalysis (05/23/21 05:18) Urine Culture (05/23/21 05:18) Protime With Inr (05/23/21 05:18) Partial Thromboplastin Time (05/23/21 05:18) Ed Iv/Invasive Line Start (05/23/21 05:18) Ed Iv/Invasive Line Start (05/23/21 05:18) Vital Signs Adult Sepsis Patie Q15M (05/23/21 05:18) Remove Rings In Anticipation O (05/23/21 05:18) Lactic Acid Analyzer (05/23/21 05:18) Amylase (05/23/21 05:18) Lipase (05/23/21 05:18) Magnesium (05/23/21 05:18) Procalcitonin (Pct) (05/23/21 05:18) Fentanyl Inj (Sublimaze Injection) (05/23/21 05:18) Medications Given in ED Current Medications Medications Dose Ordered Sig/Jordan Route Start Time Stop Time Status Last Admin Dose Admin Lactated Ringer's 1,000 ml @ 0 mls/hr Q0M ONCE IV 05/23/21 05:30 05/23/21 05:31 DC 05/23/21 05:36 0 MLS/HR Vital Signs/I&O 05/23/21 05:20 Temp 36.1 Pulse 86 Resp 20 B/P (MAP) 172/92 (118) Pulse Ox 92 O2 Delivery Nasal Cannula O2 Flow Rate 3.00 Progress Progress Note : Progress Note SEPSIS PROTOCOL INITIATED GIVEN IV FLUIDS GIVEN FENTANYL FOR PAIN GIVEN ZOFRAN FOR NAUSEA STARTED ON IV ANTIBIOTICS NO DETERIORATION IN PT'S CONDITION DURING ER STAY NO FEVER NO HYPOTENSION NO HYPOXIA NO TACHYCARDIA NO DYSPNEA REVIEWED LAB AND CT SCAN AND XRAYS DONE FROM EARLIER ER VISIT. DISCUSSED CODE STATUS WITH PT. SHE STATES SHE WANTS TO BE FULLY RESUSCITATED "JUST UNTIL I CAN SEE ALL MY FAMILY" Departure Communication (Admissions) [id number]--SPOKE WITH DR. PAGAN, ACCEPTS PT FOR ADMIT Impression Primary Impression: Colitis Additional Impressions: IDDM RECENT LEFT NEPHRECTOMY RECENT ABDOMINAL WALL CELLULITIS Chronic atrial fibrillation COPD (chronic obstructive pulmonary disease) S/P RIGHT LEG AMPUTATION Morbid obesity Disposition: ADMITTED INPATIENT Condition: Stable Admissions Decision to Admit Reason: Admit from ER (General) Decision to Admit/Date: May 23, 2021 Time/Decision to Admit Time: 05:30 Departure-Patient Inst. Referrals: [facility] (PCP/Family) Primary Care Physician CLEMENTE PEREZ DO May 23, 2021 05:18
[2021-05-23] MEDS ORDERED: LACTATED RINGERS 1,000 ML IV ONE (05:30)
[2021-05-23] MEDS ORDERED: PIPERACILLIN SODIUM/TAZOBACTAM 4.5 GM in NS (IVPB) 100 ML IV ONE (05:45)
[2021-05-23] MEDS ORDERED: metroNIDAZOLE 500MG/100ML IVPB 100 ML IV ONE (05:45)
[2021-05-23] MEDS ORDERED: ONDANSETRON 4 MG/2 ML (SDV) Z0FRAN IVP ONE (05:45)
[2021-05-23 05:52] LABS: BASOPHILS % (AUTO) 0 % (0-10); EOSINOPHILS # (AUTO) 0.3 10^3/uL (0.0-0.3); EOSINOPHILS % (AUTO) 3 % (0-10); HEMATOCRIT 40 % (35-52); HEMOGLOBIN 12.4 g/dL (11.5-16.0); LYMPHOCYTES # (AUTO) 1.1 10^3/uL (1.0-4.0); LYMPHOCYTES % (AUTO) 11 % (12-44); MEAN CORPUSCULAR HEMOGLOBIN 29 pg (25-34); MEAN CORPUSCULAR HGB CONC 31 g/dL (32-36); MEAN CORPUSCULAR VOLUME 93 fL (80-99); MEAN PLATELET VOLUME 9.3 fL (9.0-12.2); MONOCYTES # (AUTO) 0.5 10^3/uL (0.0-1.0); MONOCYTES % (AUTO) 5 % (0-12); NEUTROPHILS # (AUTO) 8.3 10^3/uL (1.8-7.8); NEUTROPHILS % (AUTO) 80 % (42-75); PLATELET COUNT 340 10^3/uL (130-400); WHITE BLOOD COUNT 10.4 10^3/uL (4.3-11.0)
[2021-05-23 06:00] LABS: ALBUMIN 3.4 GM/DL (3.2-4.5)
[2021-05-23 06:01] LABS: CALCIUM 9.3 MG/DL (8.5-10.1)
[2021-05-23 06:03] LABS: TOTAL PROTEIN 7.6 GM/DL (6.4-8.2)
[2021-05-23 06:04] LABS: BILIRUBIN,TOTAL 0.8 MG/DL (0.1-1.0)
[2021-05-23 06:06] LABS: CREATININE SERUM 1.22 MG/DL (0.60-1.30)
[2021-05-23 06:08] LABS: INR 1.3 (0.8-1.4); PROTHROMBIN TIME PATIENT 16.7 SEC (12.2-14.7)
[2021-05-23 06:09] LABS: MAGNESIUM 2.1 MG/DL (1.6-2.4)
[2021-05-23] MEDS ORDERED: ONDANSETRON 4 MG/2 ML (SDV) Z0FRAN IV PRN (06:30)
[2021-05-23] MEDS ORDERED: NS IV 1000 ML 1,000 ML ONE (06:31)
[2021-05-23] MEDS ORDERED: FLU QUAD HIGH DOSE 240 MCG/0.7 ML 2021-22 (FLUZONE) IM ONE (06:45)
[2021-05-23] MEDS: NS IV 1000 ML 1,000 ML IV SCH ×4 (06:48→21:16)
[2021-05-23] MEDS: inSUlin ASPART (NovoLOG) 1 UNIT/0.01 ML (CHARGE PER UNIT) SC SCH ×3 (06:49→18:19)
[2021-05-23] MEDS ORDERED: VANCOMYCIN INJECTION 2,000 MG in NS IV 500 ML 500 ML IV ONE (07:00)
[2021-05-23] MEDS: fentaNYL INJ 100 MCG/2 ML AMP IV PRN (07:56)
[2021-05-23 08:08] VITALS: BP 166/67
--- NOTE | 2021-05-23 11:40 | History & Physical ---
HPI History of Present Illness: 70 yo female went to ER yesterday evening due to abdominal pain, she was checked out and was able to go home, but after she got home, her pain continued to get worse and she was unable to tolerate it, so she called the ambulance back again. 2 days ago she started having diffuse abdominal pain and frequent soft stools, yesterday she she says she didn't have bowel movements but pain was still present and says she was passing completely liquid, but then stopped bowel movements altogether. She did take some immodium yesterday morning, did still have watery stool after that. She thinks her last BM was yesterday. She did have some nausea and vomited just before she came in to the ER the second time, but that was the only time she had that. She denies blood in stools. Pain is sharp. Denies hematuria. Her pain is improved this morning, she states she is feeling pretty good this morning and her nausea seems to be gone. Source: patient Date seen by provider: May 23, 2021 Time Seen by Provider: 11:38 Attending Physician Julienne Forrest MD [place] [place] [place] Date of Admission May 23, 2021 at 05:30 Home Medications Home Medications Reviewed patient Home Medication Reconciliation performed by pharmacy medication reconciliations tissue technician and/or nursing. Patients Allergies have been reviewed. Allergies Coded Allergies: diphenhydramine (Verified Allergy, Unknown, 05/13/20) GSY-Tijtrx-Ionbki Hx Patient Social History Smoking Status: Current Everyday Smoker 2nd Hand Smoke Exposure: Yes Recent Hopitalizations: No Alcohol Use?: No Tobacco type used: Cigarettes Have you traveled recently?: No Immunizations Up To Date Tetanus Booster (TDap): Unknown Date of Pneumonia Vaccine: Mar 09, 2013 Past Medical History PMHx: Renal cell carcinoma Diabetes Hypertension Hyperlipidemia Atrial fibrillation COPD SurgHx: Cholecystectomy Appendectomy Hysterectomy Bladder sling and later removal Thyroidectomy 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 Left nephrectomy Left knee replacement, later removal of joint hardware due to infection, non-weightbearing chronically Bronchoscopy 04/2021 for mucus plugging Family Medical History Significant Family History: Heart Disease, Cancer (father, colon cancer; broth er, bone cancer), CAD Under 55 Years Old (brother at age 54 after massive NM), CVA (mother stroke), Diabetes (multiple siblings) Review of Systems ([facility]) Constitutional: No chills, No fever; malaise, weakness (diffuse) EENTM: No blurred vision Respiratory: short of breath (uses 3 lpm supplemental oxygen at home) Cardiovascular: No chest pain Gastrointestinal: see HPI Genitourinary: No decreased output, No hematuria Musculoskeletal: back pain (near tailbone) Reviewed Test Results Reviewed Test Results Lab Laboratory Tests Test 05/23/21 05:32 05/23/21 11:20 Range/Units White Blood Count 10.4 4.3-11.0 10^3/uL Red Blood Count 4.27 3.80-5.11 10^6/uL Hemoglobin 12.4 11.5-16.0 g/dL Hematocrit 40 35-52 % Mean Corpuscular Volume 93 80-99 fL Mean Corpuscular Hemoglobin 29 25-34 pg Mean Corpuscular Hemoglobin Concent 31 L 32-36 g/dL Red Cell Distribution Width 16.7 H 10.0-14.5 % Platelet Count 340 130-400 10^3/uL Mean Platelet Volume 9.3 9.0-12.2 fL Immature Granulocyte % (Auto) 1 % Neutrophils (%) (Auto) 80 H 42-75 % Lymphocytes (%) (Auto) 11 L 12-44 % Monocytes (%) (Auto) 5 0-12 % Eosinophils (%) (Auto) 3 0-10 % Basophils (%) (Auto) 0 0-10 % Neutrophils # (Auto) 8.3 H 1.8-7.8 10^3/uL Lymphocytes # (Auto) 1.1 1.0-4.0 10^3/uL Monocytes # (Auto) 0.5 0.0-1.0 10^3/uL Eosinophils # (Auto) 0.3 0.0-0.3 10^3/uL Basophils # (Auto) 0.0 0.0-0.1 10^3/uL Immature Granulocyte # (Auto) 0.1 0.0-0.1 10^3/uL Prothrombin Time 16.7 H 12.2-14.7 SEC INR Comment 1.3 0.8-1.4 Activated Partial Thromboplast Time 43 H 24-35 SEC Sodium Level 134 L 135-145 MMOL/L Potassium Level 4.0 3.6-5.0 MMOL/L Chloride Level 91 L 98-107 MMOL/L Carbon Dioxide Level 30 21-32 MMOL/L Anion Gap 13 5-14 MMOL/L Blood Urea Nitrogen 12 7-18 MG/DL Creatinine 1.22 0.60-1.30 MG/DL Estimat Glomerular Filtration Rate 44 BUN/Creatinine Ratio 10 Glucose Level 187 H 70-105 MG/DL Lactic Acid Level 1.17 0.50-2.00 MMOL/L Calcium Level 9.3 8.5-10.1 MG/DL Corrected Calcium 9.8 8.5-10.1 MG/DL Magnesium Level 2.1 1.6-2.4 MG/DL Total Bilirubin 0.8 0.1-1.0 MG/DL Aspartate Amino Transf (AST/SGOT) 26 5-34 U/L Alanine Aminotransferase (ALT/SGPT) 16 0-55 U/L Alkaline Phosphatase 86 40-136 U/L Total Protein 7.6 6.4-8.2 GM/DL Albumin 3.4 3.2-4.5 GM/DL Amylase Level 24 L 25-125 U/L Lipase 18 8-78 U/L Procalcitonin 0.04 <0.10 NG/ML Glucometer 129 H 70-110 MG/DL Radiology CT abd/pelvis 05/22/21: IMPRESSION: 1. Wall thickening and inflammatory stranding seen within the distal descending and proximal sigmoid colon. Findings could be seen with infectious or inflammatory colitis, although diverticulitis could have a similar appearance. No focally inflamed diverticula are seen. No adjacent abscess or free air. 2. Stable loculated fluid collection within the right abdominal subcutaneous tissues. Redemonstrated loculated air and fluid collection within the left abdominal subcutaneous tissues with increased fluid and decreased air. Physical Exam-([facility]) Physical Exam Vital Signs VS - Last 72 Hours, by Label 05/23/21 05/23/21 05/23/21 05/23/21 05:20 06:05 06:14 06:51 Temp 36.1 36.3 Pulse 86 84 75 Resp 20 16 B/P (MAP) 172/92 (118) 153/78 Pulse Ox 92 92 O2 Delivery Nasal Cannula Nasal Cannula Nasal Cannula O2 Flow Rate 3.00 3.00 3.00 05/23/21 05/23/21 05/23/21 05/23/21 07:37 08:00 08:08 11:51 Temp 36.5 36.5 Pulse 90 81 Resp 18 19 B/P (MAP) 166/67 (100) 148/64 (92) Pulse Ox 93 93 98 O2 Delivery Nasal Cannula Nasal Cannula Nasal Cannula Nasal Cannula O2 Flow Rate 3.00 3.00 3.00 3.00 05/23/21 05/23/21 12:36 16:13 Temp 35.0 Pulse 91 82 Resp 20 B/P (MAP) 133/82 (99) Pulse Ox 99 O2 Delivery Nasal Cannula O2 Flow Rate 3.00 Capillary Refill : Less Than 3 Seconds General Appearance: no apparent distress, obese Respiratory: rhonchi Cardiovascular: regular rate, rhythm, no murmur Peripheral Pulses: 2+ Left Dors-Pedis (L) Gastrointestinal: normal bowel sounds, non tender, soft, other (mild erythema of lower abdominal folds) Extremities: no pedal edema, other (absent right leg) Neurologic/Psychiatric: alert, oriented x 3 Skin: warm/dry Assessment/Plan Assessment/Plan Admission Status: Inpatient Order (span 2 midnights) Reason for Inpatient Admission: Colitis with underlying comorbidities (1) Colitis Status: Acute Assessment & Plan: Suspect possible c diff colitis given recent antibiotic use for pneumonia. C diff indeterminate, waiting on final, continue flagyl. D/C vanc and zosyn. (2) Abnormal chest xray Status: Acute Assessment & Plan: No clear evidence of new pneumonia, on baseline oxygen and without new complaints. CXR findings consistent with last admission. Monitor. (3) Abnormal radiological findings in skin and subcutaneous tissue Status: Chronic Assessment & Plan: Persistent subcutaneous fluid in abdominal wall, clinically without symptoms. Monitor. (4) Diabetes Status: Chronic Assessment & Plan: Diabetic diet as tolerated, sliding scale insulin. Qualifiers: (5) Hypertension Status: Chronic Assessment & Plan: Resume home meds as needed. Qualifiers: Qualified Codes: I10 - Essential (primary) hypertension (6) Hypothyroidism Status: Chronic Assessment & Plan: Resume home medication Qualifiers: Qualified Codes: E89.0 - Postprocedural hypothyroidism (7) COPD (chronic obstructive pulmonary disease) Status: Chronic Assessment & Plan: On supplemental oxygen at home. Resume home albuterol. (8) Renal cell carcinoma Status: Chronic Assessment & Plan: s/p nephrectomy 04/2021 (9) Morbid obesity Status: Chronic (10) Chronic atrial fibrillation Status: Acute Assessment & Plan: Resume home meds (11) DVT prophylaxis Status: Acute Assessment & Plan: Resume home apixaban. JULIENNE FORREST MD May 23, 2021 11:40
[2021-05-23 11:51] VITALS: BP 148/64
[2021-05-23] MEDS: PIPERACILLIN/TAZO 4.5 GM/NS 100 ML IV SCH ×4 (12:00→19:55)
[2021-05-23 16:13] VITALS: BP 133/82
[2021-05-23] MEDS ORDERED: METO50TA15 PO (17:06)
[2021-05-23] MEDS ORDERED: SITA100T12 PO (17:25)
[2021-05-23] MEDS ORDERED: OXYC-525 PO (17:25)
[2021-05-23 19:52] VITALS: BP 119/66
[2021-05-23] MEDS: APIXABAN 5 MG (ELIQUIS) TABLET PO SCH (21:16)
[2021-05-23] MEDS: metroNIDAZOLE 500 MG/100 ML IVPB (PRE-MIX) IV SCH (21:16)
[2021-05-24] VITALS (13 sets, daily range): BP systolic 110–175; BP diastolic 60–105
[2021-05-24] MEDS: inSUlin ASPART (NovoLOG) 1 UNIT/0.01 ML (CHARGE PER UNIT) SC SCH ×4 (00:06→18:46)
[2021-05-24] MEDS: NS IV 1000 ML 1,000 ML IV SCH ×4 (03:15→16:06)
[2021-05-24] MEDS: PIPERACILLIN/TAZO 4.5 GM/NS 100 ML IV SCH ×2 (03:21)
[2021-05-24] MEDS: fentaNYL INJ 100 MCG/2 ML AMP IV PRN ×3 (03:28→23:14)
[2021-05-24] MEDS ORDERED: VANCOMYCIN INJECTION 1,500 MG in NS IV 500 ML 500 ML IV SCH (06:00)
[2021-05-24 06:13] LABS: BASOPHILS % (AUTO) 0 % (0-10); EOSINOPHILS # (AUTO) 0.7 10^3/uL (0.0-0.3); EOSINOPHILS % (AUTO) 8 % (0-10); HEMATOCRIT 35 % (35-52); HEMOGLOBIN 10.5 g/dL (11.5-16.0); LYMPHOCYTES # (AUTO) 1.4 10^3/uL (1.0-4.0); LYMPHOCYTES % (AUTO) 15 % (12-44); MEAN CORPUSCULAR HEMOGLOBIN 29 pg (25-34); MEAN CORPUSCULAR HGB CONC 30 g/dL (32-36); MEAN CORPUSCULAR VOLUME 97 fL (80-99); MEAN PLATELET VOLUME 9.3 fL (9.0-12.2); MONOCYTES # (AUTO) 0.7 10^3/uL (0.0-1.0); MONOCYTES % (AUTO) 7 % (0-12); NEUTROPHILS # (AUTO) 6.5 10^3/uL (1.8-7.8); NEUTROPHILS % (AUTO) 70 % (42-75); PLATELET COUNT 261 10^3/uL (130-400); WHITE BLOOD COUNT 9.3 10^3/uL (4.3-11.0)
[2021-05-24 06:36] LABS: ALBUMIN 2.9 GM/DL (3.2-4.5); BILIRUBIN,TOTAL 0.6 MG/DL (0.1-1.0); CALCIUM 8.5 MG/DL (8.5-10.1); CREATININE SERUM 1.2 MG/DL (0.60-1.30); POTASSIUM 3.9 MMOL/L (3.6-5.0); TOTAL PROTEIN 6.6 GM/DL (6.4-8.2)
[2021-05-24] MEDS: APIXABAN 5 MG (ELIQUIS) TABLET PO SCH ×2 (09:16→20:55)
[2021-05-24] MEDS: metroNIDAZOLE 500 MG/100 ML IVPB (PRE-MIX) IV SCH ×2 (09:17→20:55)
[2021-05-24] MEDS ORDERED: SALINE NASAL SPRAY (OCEAN) 45 ML BTL PRN (09:30)
[2021-05-24] MEDS: RT-ALBUTEROL SULF 2.5 MG/3 ML PRE-MIX VIAL INH PRN ×2 (10:39→20:00)
[2021-05-24] MEDS ORDERED: CHOL200074 PO (11:14)
[2021-05-24] MEDS ORDERED: OXYC-525 PO (11:14)
[2021-05-24] MEDS ORDERED: MULT-1136 PO (11:14)
[2021-05-24] MEDS ORDERED: PANT40TA52 PO (11:14)
[2021-05-24] MEDS ORDERED: VITA-189 PO (11:14)
[2021-05-24] MEDS ORDERED: ALBU2.5V4 NEB (11:14)
[2021-05-24] MEDS ORDERED: METO50TA15 PO (11:14)
[2021-05-24] MEDS ORDERED: FLUT1AER12 IH (11:14)
[2021-05-24] MEDS ORDERED: BISA5TAB8 PO (11:14)
[2021-05-24] MEDS ORDERED: NON-FORMULARY MEDICATION 1 EA EA (Melatonin 5 MG) PO PRN (15:45)
[2021-05-24] MEDS ORDERED: ACETAMINOPHEN 500 MG TAB (TYLENOL) PO PRN (15:45)
--- NOTE | 2021-05-24 15:45 | Progress Note ---
Subjective Subjective/Events-last exam Afebrile, but is not feeling well. More short of breath today and wheezing. Still having abdominal pain. Focused Exam Lactate Level 05/23/21 05:32: Lactic Acid Level 1.17 Time of Focused Exam: 05:45 Objective Exam Last Set of Vital Signs Vital Signs Date Time Temp Pulse Resp B/P (MAP) Pulse Ox O2 Delivery O2 Flow Rate FiO2 05/24/21 15:35 36.2 92 22 132/71 (91) 90 Nasal Cannula 3.00 Capillary Refill : Less Than 3 Seconds I&O Intake and Output 05/24/21 00:00 Intake Total 820 ml Output Total 650 ml Balance 170 ml Intake Oral 180 ml IV Total 640 ml Output Urine Total 650 ml Daily Weight Change Yes, 2-13 lbs General: Alert, Mild Distress Lungs: Other (diffuse wheezing) Heart: Regular Rate Abdomen: Normal Bowel Sounds, Soft, Other (diffuse mild ttp) Extremities: No Edema (left) Neuro: Normal Speech Psych/Mental Status: Mental Status NL Results/Procedures Lab Laboratory Tests 05/23/21 17:51: Glucometer 110 05/23/21 23:55: Glucometer 125H 05/24/21 05:32: White Blood Count 9.3, Red Blood Count 3.61L, Hemoglobin 10.5L, Hematocrit 35, Mean Corpuscular Volume 97, Mean Corpuscular Hemoglobin 29, Mean Corpuscular Hemoglobin Concent 30L, Red Cell Distribution Width 16.8H, Platelet Count 261, Mean Platelet Volume 9.3, Immature Granulocyte % (Auto) 1, Neutrophils (%) (Auto) 70, Lymphocytes (%) (Auto) 15, Monocytes (%) (Auto) 7, Eosinophils (%) (Auto) 8, Basophils (%) (Auto) 0, Neutrophils # (Auto) 6.5, Lymphocytes # (Auto) 1.4, Monocytes # (Auto) 0.7, Eosinophils # (Auto) 0.7H, Basophils # (Auto) 0.0, Immature Granulocyte # (Auto) 0.1, Sodium Level 136, Potassium Level 3.9, Chloride Level 99, Carbon Dioxide Level 27, Anion Gap 10, Blood Urea Nitrogen 11, Creatinine 1.20, Estimat Glomerular Filtration Rate 45, BUN/Creatinine Ratio 9, Glucose Level 116H, Calcium Level 8.5, Corrected Calcium 9.4, Total Bilirubin 0.6, Aspartate Amino Transf (AST/SGOT) 24, Alanine Aminotransferase (ALT/SGPT) 17, Alkaline Phosphatase 67, Total Protein 6.6, Albumin 2.9L 05/24/21 12:17: Glucometer 121H Radiology CT abd/pelvis 05/22/21: IMPRESSION: 1. Wall thickening and inflammatory stranding seen within the distal descending and proximal sigmoid colon. Findings could be seen with infectious or inflammatory colitis, although diverticulitis could have a similar appearance. No focally inflamed diverticula are seen. No adjacent abscess or free air. 2. Stable loculated fluid collection within the right abdominal subcutaneous tissues. Redemonstrated loculated air and fluid collection within the left abdominal subcutaneous tissues with increased fluid and decreased air. Assessment/Plan Assessment/Plan (1) Colitis Status: Acute Assessment & Plan: Suspect possible c diff colitis given recent antibiotic use for pneumonia. C diff indeterminate, waiting on final, continue flagyl. D/C vanc and zosyn. (2) Abnormal chest xray Status: Acute Assessment & Plan: No clear evidence of new pneumonia, on baseline oxygen and without new complaints. CXR findings consistent with last admission. Monitor. (3) Abnormal radiological findings in skin and subcutaneous tissue Status: Chronic Assessment & Plan: Persistent subcutaneous fluid in abdominal wall, clinically without symptoms. Monitor. (4) Diabetes Status: Chronic Assessment & Plan: Diabetic diet as tolerated, sliding scale insulin. Qualifiers: (5) Hypertension Status: Chronic Assessment & Plan: Resume home meds as needed. Qualifiers: Qualified Codes: I10 - Essential (primary) hypertension (6) Hypothyroidism Status: Chronic Assessment & Plan: Resume home medication Qualifiers: Qualified Codes: E89.0 - Postprocedural hypothyroidism (7) COPD (chronic obstructive pulmonary disease) Status: Acute Assessment & Plan: On supplemental oxygen at home. Resume home albuterol. 05/24 wheezing and with increased work of breathing, will start prednisone. Qualifiers: Qualified Codes: J44.1 - Chronic obstructive pulmonary disease with (acute) exacerbation (8) Renal cell carcinoma Status: Chronic Assessment & Plan: s/p nephrectomy 04/2021 (9) Morbid obesity Status: Chronic (10) Chronic atrial fibrillation Status: Acute Assessment & Plan: Resume home meds (11) DVT prophylaxis Status: Acute Assessment & Plan: Resume home apixaban. JULIENNE PAGAN MD May 24, 2021 15:45
[2021-05-24] MEDS: predniSONE 20 MG TAB PO SCH (16:06)
[2021-05-24 19:57] LABS: ABG OXYGEN SATURATION 95 % (94-100); ABG PCO2 51 MMHG (35-45); ABG PH 7.37 (7.37-7.43); ABG PO2 69 MMHG (79-93); ABG TCO2 30.5 MMOL/L (21.0-31.0)
[2021-05-24 19:58] LABS: ALLENS TEST POS; INSPIRED O2 6L; PATIENT TEMP 37.1; VENTILATOR NO
[2021-05-24] MEDS: RT--FLUTICASONE/SALMETEROL 232-14 (AIRDUO RespiCLICK) IH PRN (20:01)
--- NOTE | 2021-05-24 20:17 | Diagnostic Imaging Report ---
INDICATION: Chest pain. COMPARISON: 05/22/2021. FINDINGS: Single frontal radiographic view of the chest was obtained and again demonstrates moderate scattered patchy and confluent airspace opacities throughout the left lung. This does appear slightly progressed when compared to prior exam. There may be a component of volume loss as well. No large effusion is seen on the right. Small effusion cannot be excluded on the left. There is no pneumothorax. Heart size is partially obscured, but appears to be within normal limits. Osseous structures show no acute abnormality. IMPRESSION: Progressive infiltrate throughout the left lung. Dictated by: Dictated on workstation # [id number]
[2021-05-24] MEDS: GABAPENTIN 300 MG (NEURONTIN) CAP PO SCH (20:55)
[2021-05-24] MEDS: meTOprolol TARTRATE 50 MG (LOPRESSOR) TAB PO SCH (20:55)
[2021-05-24] MEDS: MAGNESIUM OXIDE (MAG-OX)400 MG TAB PO SCH (20:55)
[2021-05-24] MEDS ORDERED: INSULIN DETEMIR 15 UNIT SC SCH (21:00)
[2021-05-24] MEDS ORDERED: NON-FORMULARY MEDICATION 1 EA EA (Magnesium Oxide (Magnesium) 400 MG) PO SCH (21:00)
--- NOTE | 2021-05-24 22:12 | Tele-ICU Consult ---
History of Present Illness History of Present Illness Date Seen by Provider: May 24, 2021 Time Seen by Provider: 22:07 Date of Admission Reason for Visit: New ICU admission for dyspnea History of Present Illness 70 yo F admitted with acute colitis, CXR showing left atelectasis. Received Vancomycin, Zosyn, Flagyl. Not hypotensive. Lactate ok. Awake, alert on monitor, SpO2 94 on 4L NC Reported history of COPD on Airduo, albuterol, prednisone ABG shows chronic hypercapnia Cultures pending. Patient was evaluated by Dr. Sykes, orders placed. No recent COVID reported Allergies and Home Medications Allergies Coded Allergies: diphenhydramine (Verified Allergy, Unknown, 05/13/20) Home Medications Acetaminophen 500 Mg Tablet, 1,000 MG PO Q6H PRN for PAIN-MILD (1-4), (Reported) Albuterol Sulfate 18 Gm Hfa.aer.ad, 2 PUFF INH Q4H PRN for SHORTNESS OF BREATH, (Reported) Albuterol Sulfate 2.5 Mg/3 Ml Vial.neb, 3 ML NEB Q6H PRN for SHORTNESS OF BREATH, (Reported) Apixaban 5 Mg Tablet, 5 MG PO BID, (Reported) Ascorbate Calcium 500 Mg Tablet, 500 MG PO DAILY, (Reported) Atorvastatin Calcium 20 Mg Tablet, 20 MG PO HS, (Reported) Bisacodyl 5 Mg Tablet.dr, 5 MG PO DAILY PRN for CONSTIPATION-4TH LINE, (Reported) Cholecalciferol (Vitamin D3) 50 Mcg Capsule, 50 MCG PO DAILY, (Reported) Fluticasone Propion/Salmeterol 1 Each Aer.pw.bas, 1 EACH IH BID PRN for SHORTNESS OF BREATH, (Reported) Furosemide 20 Mg Tablet, 60 MG PO DAILY, (Reported) TAKES 3 (20MG) TABS Gabapentin 300 Mg Capsule, 300 MG PO HS, (Reported) Insulin Aspart 300 Units/3 Ml Solution, 5 UNITS SC AC, (Reported) Insulin Detemir 100 Unit/1 Ml Insuln.pen, 15 UNITS SC HS, (Reported) Levothyroxine Sodium 100 Mcg Tablet, 100 MCG PO DAILY, (Reported) Magnesium Oxide 400 Mg Tablet, 400 MG PO HS, (Reported) Melatonin 5 Mg Tablet, 5 MG PO HS PRN for SLEEP, (Reported) Metoprolol Tartrate 50 Mg Tablet, 50 MG PO BID, (Reported) Multivitamin 1 Each Tablet, 1 EACH PO DAILY, (Reported) Oxycodone HCl 15 Mg Tablet, 15 MG PO Q4H PRN for PAIN-SEVERE (8-10), (Reported) Pantoprazole Sodium 40 Mg Tablet.dr, 40 MG PO DAILY, (Reported) Polyethylene Glycol 3350 17 Gm Powd.pack, 17 GM PO DAILY PRN for CONSTIPATION- 2ND LINE, (Reported) Semaglutide 1 Mg/0.75 Ml Pen.injctr, 1 MG INJ SAT, (Reported) Sennosides 8.6 Mg Tablet, 8.6-17.2 MG PO BID PRN for CONSTIPATION-5TH LINE, (Reported) Sitagliptin Phosphate 100 Mg Tablet, 100 MG PO DAILY, (Reported) Vitamin B Complex 1 Each Tablet, 1 EACH PO DAILY, (Reported) Past Medical/Social/Family Hx Patient Social History Tobacco Use?: Yes Tobacco type used: Cigarettes Smoking Status: Current Everyday Smoker Use of E-Cig and/or Vaping dev: No Substance use?: No Alcohol Use?: No Pt stated abuse/neglect: No Immunizations Up To Date Influenza Vaccine Up-to-Date: No; Not Current First/Initial COVID19 Vaccinat: 01/28 Second COVID19 Vaccination [place]: 01/28 Tetanus Booster (TDap): Unknown Hepatitis A: Yes Hepatitis B: Yes Date of Pneumonia Vaccine: Mar 09, 2013 Current Status status: No Advance Directives: No Communicates: Verbally Primary Language: Latvian Preferred Spoken Language: Latvian Is interpretation needed?: No Sensory deficits: Vision impairment Past Medical History PMHx: Renal cell carcinoma Diabetes Hypertension Hyperlipidemia Atrial fibrillation COPD SurgHx: Cholecystectomy Appendectomy Hysterectomy Bladder sling and later removal Thyroidectomy 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 Left nephrectomy Left knee replacement, later removal of joint hardware due to infection, non-weightbearing chronically Bronchoscopy 04/2021 for mucus plugging Exam Exam Patient acknowledged, consented, and participated in this virtual visit which was conducted using real time audio/video Vital Signs Date Time Temp Pulse Resp B/P (MAP) Pulse Ox O2 Delivery O2 Flow Rate FiO2 05/24/21 20:58 Nasal Cannula 4.00 05/24/21 20:45 104 24 164/80 (108) 92 Nasal Cannula 3.00 05/24/21 20:30 109 28 175/100 (125) Nasal Cannula 3.00 05/24/21 20:15 104 18 164/105 (124) 93 Nasal Cannula 3.00 05/24/21 20:02 96 Nasal Cannula 6.00 05/24/21 20:00 36.7 93 14 157/94 (115) 95 Nasal Cannula 3.00 05/24/21 19:08 36.4 102 20 136/67 (90) 92 Nasal Cannula 3.00 05/24/21 19:00 90 05/24/21 15:35 36.2 92 22 132/71 (91) 90 Nasal Cannula 3.00 05/24/21 12:48 102 05/24/21 12:00 36.4 93 18 137/63 (87) 92 Nasal Cannula 3.00 05/24/21 10:39 92 Nasal Cannula 3.00 05/24/21 08:00 36.1 88 18 141/74 (96) 95 Nasal Cannula 3.00 05/24/21 08:00 Nasal Cannula 3.00 05/24/21 07:00 94 05/24/21 04:05 35.9 96 17 110/65 (80) 96 Nasal Cannula 3.00 05/24/21 01:00 93 05/24/21 00:06 35.8 84 18 123/60 (81) 92 Nasal Cannula 3.00 I & O 05/24/21 07:00 Intake Total 1920 ml Output Total 1150 ml Balance 770 ml Height & Weight Height: '64.00" Weight: 261lbs. oz. [id number]; 45.17 BMI Method: General Appearance: No Apparent Distress Respiratory: Lungs Clear, Normal Breath Sounds, No Accessory Muscle Use, No Respiratory Distress Cardiovascular: Regular Rate, Rhythm, No Murmur Capillary Refill: Less Than 3 Seconds Peripheral Pulses: 2+ Left Dors-Pedis (L) Gastrointestinal: normal bowel sounds, non tender, soft, other (mild erythema of lower abdominal folds) Results Lab Laboratory Tests 05/23/21 05:32 05/24/21 05:32 Assessment/Plan Assessment/Plan Acute on chronic hypoxemic respiratory failure. COPD exacerbation Acute colitis Atelectasis versus pneumonia, rec'd broad spectrum abx, cultures pending DVT prophylaxis (already on apixaban) Supportive care, supplemental O2 No critical care needs at this time SKYE RIVERA MD May 24, 2021 22:12
[2021-05-25] VITALS (24 sets, daily range): BP systolic 122–188; BP diastolic 61–114
[2021-05-25] MEDS: NS IV 1000 ML 1,000 ML IV SCH ×2 (00:52→14:54)
[2021-05-25] MEDS: fentaNYL INJ 100 MCG/2 ML AMP IV PRN ×5 (01:37→23:30)
[2021-05-25 05:11] LABS: BASOPHILS % (AUTO) 0 % (0-10); EOSINOPHILS % (AUTO) 0 % (0-10); HEMATOCRIT 34 % (35-52); HEMOGLOBIN 10.3 g/dL (11.5-16.0); LYMPHOCYTES # (AUTO) 0.8 10^3/uL (1.0-4.0); LYMPHOCYTES % (AUTO) 11 % (12-44); MEAN CORPUSCULAR HEMOGLOBIN 29 pg (25-34); MEAN CORPUSCULAR HGB CONC 31 g/dL (32-36); MEAN CORPUSCULAR VOLUME 96 fL (80-99); MEAN PLATELET VOLUME 9.5 fL (9.0-12.2); MONOCYTES # (AUTO) 0.2 10^3/uL (0.0-1.0); MONOCYTES % (AUTO) 2 % (0-12); NEUTROPHILS # (AUTO) 6.9 10^3/uL (1.8-7.8); NEUTROPHILS % (AUTO) 87 % (42-75); PLATELET COUNT 265 10^3/uL (130-400); WHITE BLOOD COUNT 7.9 10^3/uL (4.3-11.0)
[2021-05-25 05:22] LABS: ALBUMIN 2.9 GM/DL (3.2-4.5)
[2021-05-25 05:23] LABS: POTASSIUM 4.2 MMOL/L (3.6-5.0)
[2021-05-25 05:24] LABS: CALCIUM 8.9 MG/DL (8.5-10.1)
[2021-05-25 05:25] LABS: TOTAL PROTEIN 6.5 GM/DL (6.4-8.2)
[2021-05-25 05:27] LABS: BILIRUBIN,TOTAL 0.5 MG/DL (0.1-1.0)
[2021-05-25 05:28] LABS: PHOSPHORUS 2.6 MG/DL (2.3-4.7)
[2021-05-25 05:29] LABS: CREATININE SERUM 0.99 MG/DL (0.60-1.30)
[2021-05-25] MEDS: inSUlin ASPART (NovoLOG) 1 UNIT/0.01 ML (CHARGE PER UNIT) SC SCH ×5 (06:00→23:52)
[2021-05-25] MEDS: LEVOTHYROXINE 100 MCG (LEVOTHROID) TAB PO SCH (07:03)
[2021-05-25] MEDS: predniSONE 20 MG TAB PO SCH (07:03)
[2021-05-25] MEDS: RT--FLUTICASONE/SALMETEROL 232-14 (AIRDUO RespiCLICK) IH PRN ×2 (08:03→20:54)
--- NOTE | 2021-05-25 08:25 | Tele-ICU Progress Note ---
Progress Note video rounds completed 70 y/o female admitted with dyspnea and acute colitis Place don triple antibiotics Hemodynamically normal BP: 188/109 Pulse irregular, A fib, rate 64-77 Pulse ox 95% Focused Exam Lactate Level 05/23/21 05:32: Lactic Acid Level 1.17 Height, Weight, BMI Height: '64.00" Weight: 261lbs. oz. [id number]; 45.17 BMI Method: Time of Focused Exam: 05:45 Laboratory Tests 05/25/21 04:36 HAYDER OCONNOR MD May 25, 2021 08:25
[2021-05-25] MEDS: FUROSEMIDE 20 MG (LASIX) TAB PO SCH (08:50)
[2021-05-25] MEDS: PANTOPRAZOLE 40 MG (PROTONIX) TAB PO SCH (08:50)
[2021-05-25] MEDS: metroNIDAZOLE 500 MG/100 ML IVPB (PRE-MIX) IV SCH ×2 (08:50→20:22)
[2021-05-25] MEDS: APIXABAN 5 MG (ELIQUIS) TABLET PO SCH ×2 (08:50→20:23)
[2021-05-25] MEDS: meTOprolol TARTRATE 50 MG (LOPRESSOR) TAB PO SCH ×2 (08:52→20:23)
--- NOTE | 2021-05-25 09:41 | Consultation-Cardiology ---
HPI-Cardiology Cardiology Consultation: Date of Consultation 05/25/2021 Date of Admission 05/23/2021 Attending Physician Angelita Schultz DO Admitting Physician [facility] Consulting Physician DAVID RAYMOND JR, MD HPI: Time Seen by a Provider: 09:36 Chief Complaint: Reason for consultation: Atrial fibrillation. I had the pleasure of seeing Katarina in the intensive care unit at [facility] in [place], [place] this morning. She has a history of permanent atrial fibrillation but has not seen a natural resource technician in a number of years. She was previously following with one of my partners, Dr. Ng and then was lost to follow-up. Over the past year she has had a variety of different issues. 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 She has also had problems with colitis. She presented to the emergency room on the day of admission due to intractable abdominal pain. She had actually been seen in the emergency room the day before with abdominal pain but had some testing and was discharged home. Due to the intractable abdominal pain, she was admitted to the medical floor. Then last evening she was complaining of some increasing shortness of breath and had very mild tachycardia. An electrocardiogram was performed that showed atrial fibrillation and a cardiology consultation was requested. As far she knows, she has been in atrial fibrillation for a number of years. She denies palpitations with the atrial fibrillation. This morning, her breathing is improved. She denies chest pain. She denies paroxysmal nocturnal dyspnea, orthopnea, lightheadedness, syncope, or edema of the left lower extremity. Certain portions of this document may have been dictated utilizing voice recognition technology. Inherent to this technology, typographical and gra mmatical errors may exist. As much as I am diligent to identify and correct these mistakes, some errors may remain in the document. Review of Systems-Cardiology Review of Systems Other comments Review of 10 organ systems is as per the history of present illness, otherwise negative. XIM-[id number]-[id number] Hx Patient Social History Smoking Status: Current Everyday Smoker 2nd Hand Smoke Exposure: Yes Have you traveled recently?: No Alcohol Use?: No Pt feels they are or have been: No Tobacco type used: Cigarettes Immunizations Up To Date Tetanus Booster (TDap): Unknown Date of Pneumonia Vaccine: Mar 09, 2013 Past Medical History PMH As described under Assessment. Family Medical History Family Medical History: The patient does not know of any family history of premature coronary artery disease. Allergies and Home Medications Allergies Coded Allergies: diphenhydramine (Verified Allergy, Unknown, 05/13/20) Patient Home Medication List Home Medication List Reviewed: Yes Acetaminophen (Tylenol Extra Strength) 500 Mg Tablet, 1,000 MG PO Q6H PRN for PAIN-MILD (1-4), (Reported) Entered as Reported by: FAMILIA BLUE on 04/26/211013 Last Action: Continued Albuterol Sulfate (Ventolin Hfa) 18 Gm Hfa.aer.ad, 2 PUFF INH Q4H PRN for SHORTNESS OF BREATH, (Reported) Entered as Reported by: FAMILIA BLUE on 04/26/211013 Last Action: Reviewed Albuterol Sulfate (Albuterol Sulfate) 2.5 Mg/3 Ml Vial.neb, 3 ML NEB Q6H PRN for SHORTNESS OF BREATH, (Reported) Entered as Reported by: FAMILIA BLUE on 05/24/211113 Last Action: Reviewed Apixaban (Eliquis) 5 Mg Tablet, 5 MG PO BID, (Reported) Entered as Reported by: FAMILIA BLUE on 04/26/211013 Last Action: Reviewed Ascorbate Calcium (Vitamin C) 500 Mg Tablet, 500 MG PO DAILY, (Reported) Entered as Reported by: FAMILIA BLUE on 04/26/211013 Last Action: Held Atorvastatin Calcium (Atorvastatin Calcium) 20 Mg Tablet, 20 MG PO HS, (Reported) Entered as Reported by: FAMILIA BLUE on 04/26/211013 Last Action: Continued Bisacodyl (Bisacodyl) 5 Mg Tablet.dr, 5 MG PO DAILY PRN for CONSTIPATION-4TH LINE, (Reported) Entered as Reported by: FAMILIA BLUE on 05/24/211113 Last Action: Held Cholecalciferol (Vitamin D3) (Vitamin D3) 50 Mcg Capsule, 50 MCG PO DAILY, (Reported) Entered as Reported by: FAMILIA BLUE on 05/24/211113 Last Action: Held Fluticasone Propion/Salmeterol (Airduo Digihaler 232-14 Mcg) 1 Each Aer.pw.bas, 1 EACH IH BID PRN for SHORTNESS OF BREATH, (Reported) Entered as Reported by: FAMILIA BLUE on 05/24/211113 Last Action: Converted Furosemide (Furosemide) 20 Mg Tablet, 60 MG PO DAILY, (Reported) Entered as Reported by: FAMILIA BLUE on 04/26/211013 Last Action: Continued Gabapentin (Neurontin) 300 Mg Capsule, 300 MG PO HS, (Reported) Entered as Reported by: FAMILIA BLUE on 04/26/211013 Last Action: Continued Insulin Aspart (Novolog Flexpen) 300 Units/3 Ml Solution, 5 UNITS SC AC, (Reported) Entered as Reported by: FAMILIA BLUE on 04/26/211013 Last Action: Held Insulin Detemir (Levemir Flextouch) 100 Unit/1 Ml Insuln.pen, 15 UNITS SC HS, (Reported) Entered as Reported by: FAMILIA BLUE on 04/26/211013 Last Action: Converted Levothyroxine Sodium (Levothyroxine Sodium) 100 Mcg Tablet, 100 MCG PO DAILY, (Reported) Entered as Reported by: FAMILIA BLUE on 04/26/211013 Last Action: Continued Magnesium Oxide (Magnesium) 400 Mg Tablet, 400 MG PO HS, (Reported) Entered as Reported by: FAMILIA BLUE on 04/26/211013 Last Action: Converted Melatonin (Melatonin) 5 Mg Tablet, 5 MG PO HS PRN for SLEEP, (Reported) Entered as Reported by: FAMILIA BLUE on 04/26/211013 Last Action: Converted Metoprolol Tartrate (Metoprolol Tartrate) 50 Mg Tablet, 50 MG PO BID, (Reported) Entered as Reported by: FAMILIA BLUE on 05/24/211113 Last Action: Continued Multivitamin (Multivitamin) 1 Each Tablet, 1 EACH PO DAILY, (Reported) Entered as Reported by: FAMILIA BLUE on 05/24/211113 Last Action: Held Oxycodone HCl (Oxycodone HCl) 15 Mg Tablet, 15 MG PO Q4H PRN for PAIN-SEVERE (8- 10), (Reported) Entered as Reported by: FAMILIA BLUE on 05/24/211113 Last Action: Held Pantoprazole Sodium (Pantoprazole Sodium) 40 Mg Tablet.dr, 40 MG PO DAILY, (Reported) Entered as Reported by: FAMILIA BLUE on 05/24/21 1114 Last Action: Continued Polyethylene Glycol 3350 (Miralax) 17 Gm Powd.pack, 17 GM PO DAILY PRN for CONSTIPATION-2ND LINE, (Reported) Entered as Reported by: FAMILIA BLUE on 04/26/21 101 Last Action: Held Semaglutide (Ozempic) 1 Mg/0.75 Ml Pen.injctr, 1 MG INJ SAT, (Reported) Entered as Reported by: FAMILIA BLUE on 04/26/21 101 Last Action: Held Sennosides (Senna Lax) 8.6 Mg Tablet, 8.6-17.2 MG PO BID PRN for CONSTIPATION- 5TH LINE, (Reported) Entered as Reported by: FAMILIA BLUE on 04/26/21 101 Last Action: Held Sitagliptin Phosphate (Januvia) 100 Mg Tablet, 100 MG PO DAILY, (Reported) Entered as Reported by: LORI LY on 05/23/211724 Last Action: Held Vitamin B Complex (B Complex) 1 Each Tablet, 1 EACH PO DAILY, (Reported) Entered as Reported by: FAMILIA BLUE on 05/24/211113 Last Action: Held Discontinued Medications Cholecalciferol (Vitamin D3) (Vitamin D3) 25 Mcg Tablet, 25 MCG PO DAILY, (Reported) Discontinued Reason: Prescription changed Entered as Reported by: FMAILIA BLUE on 04/26/211013 Last Action: Last Taken Edited Fluticasone/Salmeterol (Fluticasone-Salmeterol 232-14) 1 Each Aer.pow.ba, 0 EACH IH RTBID Discontinued Reason: No Longer Taking Prescribed by: ANGELITA SCHULTZ on 05/03/21 0952 Last Action: Discontinued Metoprolol Tartrate (Metoprolol Tartrate) 50 Mg Tablet, 12.5 MG PO BID Discontinued Reason: Duplicate Order Prescribed by: LORI LY on 05/23/21 1706 Last Action: Discontinued Metronidazole (Flagyl) 500 Mg Tablet, 500 MG PO TID Discontinued Reason: No Longer Taking Prescribed by: KHRIS POSADA on 05/22/21 1815 Last Action: Discontinued Oxycodone HCl (Oxycodone HCl) 15 Mg Tablet, 5 MG PO Q4H PRN for PAIN-SEVERE (8- 10) Discontinued Reason: Duplicate Order Prescribed by: LORI LY on 05/23/21 1725 Last Action: Discontinued Pantoprazole Sodium (Pantoprazole Sodium) 40 Mg Tablet.dr, 40 MG PO DAILY Discontinued Reason: Duplicate Order Prescribed by: ANGELITA SCHULTZ on 05/03/21 0952 Last Action: Discontinued Sitagliptin Phosphate (Januvia) 100 Mg Tablet, 100 MG PO DAILY, (Reported) Discontinued Reason: Duplicate Order Entered as Reported by: FAMILIA BLUE on 04/26/21 1014 Last Action: Discontinued Exam Vital Signs Vital Signs Date Time Temp Pulse Resp B/P (MAP) Pulse Ox O2 Delivery O2 Flow Rate FiO2 05/25/21 09:00 80 27 164/93 (116) 86 Nasal Cannula 4.00 05/25/21 07:33 36.2 Physical Exam General: Alert. No acute distress. Well nourished and appears stated age. She is morbidly obese. Eye: Extraocular movements are intact. Conjunctivae are clear. There are no xanthelasma. HENT: Normocephalic. Atraumatic. Carotid pulsations 2/2 without bruits. Neck: Jugular venous pressure does not appear elevated. No thyromegaly appreciated. Respiratory: Lungs are clear to auscultation. Respirations are non-labored. Breath sounds are equal. Symmetrical chest wall expansion. Cardiovascular: Normal rate. Irregular rhythm. No murmur. No gallop. Point of maximal impulse is not appear displaced. Good pulses equal in all extremities. No edema. Gastrointestinal: Soft. Normal bowel sounds. Skin: Skin turgor is normal. There is no pallor. Musculoskeletal: No kyphosis or scoliosis appreciated. Neurologic: Alert and oriented to person, place, time. Cranial nerves 3-12 appear grossly intact. The patient has good motor tone strength in the upper extremities bilaterally and she can move her left leg but due to absence of the knee joint, her left lower extremity strength is decreased. She has a right [id number] amputation with hip disarticulation.. Psychiatric: Cooperative. Appropriate mood & affect. Labs Laboratory Tests Test 05/24/21 12:17 05/24/21 18:15 05/24/21 19:44 05/24/21 21:30 Range/Units Glucometer 121 H 147 H 70-110 MG/DL Blood Gas [facility] Patient Temperature 37.1 Arterial Blood pH 7.37 7.37-7.43 Arterial Blood Partial Pressure CO2 51 H 35-45 MMHG Arterial Blood Partial Pressure O2 69 L 79-93 MMHG Arterial Blood HCO3 29 H 23-27 MMOL/L Arterial Blood Total CO2 30.5 21.0-31.0 MMOL/L Arterial Blood Oxygen Saturation 95 94-100 % Arterial Blood Base Excess 4.0 H -2.5-2.5 MMOL/L Jerrell Test POS Blood Gas Ventilator Setting NO Blood Gas Inspired Oxygen 6L Stool Occult Blood Immunoassay NEGATIVE NEGATIVE Test 05/24/21 21:35 05/24/21 21:48 05/25/21 02:59 05/25/21 04:36 Range/Units Troponin I < 0.028 <0.028 NG/ML Glucometer 224 H 177 H 70-110 MG/DL White Blood Count 7.9 4.3-11.0 10^3/uL Red Blood Count 3.52 L 3.80-5.11 10^6/uL Hemoglobin 10.3 L 11.5-16.0 g/dL Hematocrit 34 L 35-52 % Mean Corpuscular Volume 96 80-99 fL Mean Corpuscular Hemoglobin 29 25-34 pg Mean Corpuscular Hemoglobin Concent 31 L 32-36 g/dL Red Cell Distribution Width 16.5 H 10.0-14.5 % Platelet Count 265 130-400 10^3/uL Mean Platelet Volume 9.5 9.0-12.2 fL Immature Granulocyte % (Auto) 1 % Neutrophils (%) (Auto) 87 H 42-75 % Lymphocytes (%) (Auto) 11 L 12-44 % Monocytes (%) (Auto) 2 0-12 % Eosinophils (%) (Auto) 0 0-10 % Basophils (%) (Auto) 0 0-10 % Neutrophils # (Auto) 6.9 1.8-7.8 10^3/uL Lymphocytes # (Auto) 0.8 L 1.0-4.0 10^3/uL Monocytes # (Auto) 0.2 0.0-1.0 10^3/uL Eosinophils # (Auto) 0.0 0.0-0.3 10^3/uL Basophils # (Auto) 0.0 0.0-0.1 10^3/uL Immature Granulocyte # (Auto) 0.1 0.0-0.1 10^3/uL Sodium Level 136 135-145 MMOL/L Potassium Level 4.2 3.6-5.0 MMOL/L Chloride Level 101 98-107 MMOL/L Carbon Dioxide Level 25 21-32 MMOL/L Anion Gap 10 5-14 MMOL/L Blood Urea Nitrogen 9 7-18 MG/DL Creatinine 0.99 0.60-1.30 MG/DL Estimat Glomerular Filtration Rate 56 BUN/Creatinine Ratio 9 Glucose Level 162 H 70-105 MG/DL Calcium Level 8.9 8.5-10.1 MG/DL Corrected Calcium 9.8 8.5-10.1 MG/DL Phosphorus Level 2.6 2.3-4.7 MG/DL Magnesium Level 2.0 1.6-2.4 MG/DL Total Bilirubin 0.5 0.1-1.0 MG/DL Aspartate Amino Transf (AST/SGOT) 16 5-34 U/L Alanine Aminotransferase (ALT/SGPT) 11 0-55 U/L Alkaline Phosphatase 59 40-136 U/L Total Protein 6.5 6.4-8.2 GM/DL Albumin 2.9 L 3.2-4.5 GM/DL Test 05/25/21 06:29 Range/Units Glucometer 146 H 70-110 MG/DL ECG Impression ECG Comment Electrocardiogram obtained on 05/24 shows atrial fibrillation with a ventricular rate of 107 bpm with low voltage in the precordial leads and nonspecific ST-T wave changes. Diagnosis/Problems Diagnosis/Problems (1) Permanent atrial fibrillation Assessment & Plan: She has permanent atrial fibrillation. She has been on metoprolol tartrate for rate control which was working well until last evening when she had her respiratory distress. She is now having borderline low heart rates so the metoprolol has been held this morning. She should continue apixaban for stroke prophylaxis. If she is still here on Thursday, I will plan on an echocardiogram at that time. (2) Primary hypertension Assessment & Plan: Blood pressures have been intermittently elevated since holding the metoprolol. I will start her on an KIRAN inhibitor. Given her diabetes, she should probably be on an KIRAN inhibitor as an outpatient for its renal protective effects. We will just need to watch her renal function closely as we start this medication. (3) Mixed hyperlipidemia Assessment & Plan: Continue statin medication. I have added a lipid panel to her blood work from earlier today. (4) Chronic kidney disease, stage 3 Assessment & Plan: As above, I will add KIRAN inhibitor due to her hypertension and diabetes. Given the chronic kidney disease, we will need to watch the creatinine level closely. (5) Type 2 diabetes mellitus with complication Assessment & Plan: This is being managed by the hospitalist. (6) Morbid obesity Status: Chronic Assessment & Plan: She needs to work on weight loss. 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 (7) Cigarette smoker Assessment & Plan: She had previously quit smoking but after this years medical problems, she has gone back to smoking. Smoking cessation was strongly encouraged. DAVID RAYMOND JR, MD May 25, 2021 09:41
[2021-05-25 09:50] LABS: TRIGLYCERIDES 65 MG/DL (<150); VLDL CHOLESTEROL 13 MG/DL (5-40)
[2021-05-25 09:55] LABS: CHOLESTEROL 110 MG/DL (< 200)
[2021-05-25 09:56] LABS: HDL CHOLESTEROL 32 MG/DL (40-60)
[2021-05-25] MEDS ORDERED: lisINopril 10 MG (PRINIVIL) TABLET PO ONE (10:00)
--- NOTE | 2021-05-25 10:25 | Progress Note - Hospitalist ---
Subjective HPI/CC On Admission Date Seen by Provider: May 25, 2021 Time Seen by Provider: 11:00 Subjective/Events-last exam Patient moved to the ICU last night due to hypoxia and tachypnea Patient appeared to be stabilized Telemetry was reviewed by cardiology and reported A. fib with RVR which likely caused the shortness of breath CT of confirmed Vancomycin initiated Patient appears to be very declined since last seen She is pa and ashen I started the conversation about CODE STATUS and she has never been on a ventilator She remains a full code prognosis is getting more more poor Review of Systems General: Fatigue Pulmonary: Dyspnea Gastrointestinal: Diarrhea Focused Exam Lactate Level Time of Focused Exam: 05:45 Objective Exam Vital Signs Vital Signs Date Time Temp Pulse Resp B/P (MAP) Pulse Ox O2 Delivery O2 Flow Rate FiO2 05/26/21 04:00 35.6 Nasal Cannula 3.00 05/26/21 04:00 49 15 148/85 (106) 94 Capillary Refill : Less Than 3 Seconds General Appearance: No Apparent Distress, WD/WN, Chronically ill, Obese, Other (Pa and ashen and acutely ill) Respiratory: No Accessory Muscle Use, No Respiratory Distress, Decreased Breath Sounds Cardiovascular: Regular Rate, Rhythm Neurologic/Psychiatric: Alert, Oriented x3, Depressed Affect Results/Procedures Lab Laboratory Tests 05/26/21 04:40 Patient resulted labs reviewed. Assessment/Plan Assessment and Plan Assess & Plan/Chief Complaint Assessment: (1) Colitis C. difficile confirmed started vancomycin p.o. (2) Abnormal chest xray No evidence of pneumonia (3) Abnormal radiological findings in skin and subcutaneous tissue Monitor only (4) Diabetes Status: Chronic Assessment & Plan: Diabetic diet as tolerated, sliding scale insulin. Qualifiers: (5) Hypertension Status: Chronic Assessment & Plan: Resume home meds as needed. Qualifiers: Qualified Codes: I10 - Essential (primary) hypertension (6) Hypothyroidism Status: Chronic Assessment & Plan: Resume home medication Qualifiers: Qualified Codes: E89.0 - Postprocedural hypothyroidism (7) COPD (chronic obstructive pulmonary disease) Status: Chronic Assessment & Plan: On supplemental oxygen at home. Resume home albuterol. (8) Renal cell carcinoma Status: Chronic Assessment & Plan: s/p nephrectomy 04/2021 (9) Morbid obesity Status: Chronic (10) Chronic atrial fibrillation Status: Acute Assessment & Plan: Resume home meds (11) DVT prophylaxis Status: Acute Assessment & Plan: Resume home apixaban. Plan: Supportive care Vancomycin p.o. Prognosis appears to be poor OKSANA SCHULTZ DO May 25, 2021 10:25
[2021-05-25] MEDS: DICYCLOMINE 10 MG (BENTYL) CAP PO PRN ×2 (12:24→18:30)
[2021-05-25] MEDS: VANCOMYCIN 125 MG CAPSULE PO SCH ×3 (13:26→23:29)
[2021-05-25] MEDS: MAGNESIUM OXIDE (MAG-OX)400 MG TAB PO SCH (20:23)
[2021-05-25] MEDS: GABAPENTIN 300 MG (NEURONTIN) CAP PO SCH (20:23)
[2021-05-25] MEDS: MELATONIN 10 MG TABLET PO PRN (20:28)
[2021-05-26] VITALS (16 sets, daily range): BP systolic 128–191; BP diastolic 42–99
[2021-05-26] MEDS: NS IV 1000 ML 1,000 ML IV SCH ×2 (05:30→19:33)
[2021-05-26] MEDS: VANCOMYCIN 125 MG CAPSULE PO SCH ×4 (05:30→23:30)
[2021-05-26] MEDS: LEVOTHYROXINE 100 MCG (LEVOTHROID) TAB PO SCH (05:30)
[2021-05-26 05:31] LABS: BASOPHILS % (AUTO) 0 % (0-10); EOSINOPHILS # (AUTO) 0.1 10^3/uL (0.0-0.3); EOSINOPHILS % (AUTO) 1 % (0-10); HEMATOCRIT 33 % (35-52); LYMPHOCYTES # (AUTO) 1.3 10^3/uL (1.0-4.0); LYMPHOCYTES % (AUTO) 18 % (12-44); MEAN CORPUSCULAR HEMOGLOBIN 29 pg (25-34); MEAN CORPUSCULAR HGB CONC 30 g/dL (32-36); MEAN CORPUSCULAR VOLUME 96 fL (80-99); MONOCYTES # (AUTO) 0.6 10^3/uL (0.0-1.0); MONOCYTES % (AUTO) 8 % (0-12); NEUTROPHILS % (AUTO) 72 % (42-75); PLATELET COUNT 262 10^3/uL (130-400)
[2021-05-26] MEDS: fentaNYL INJ 100 MCG/2 ML AMP IV PRN ×6 (05:43→23:30)
[2021-05-26 05:46] LABS: ALBUMIN 2.9 GM/DL (3.2-4.5); POTASSIUM 3.8 MMOL/L (3.6-5.0)
[2021-05-26 05:49] LABS: TOTAL PROTEIN 6.5 GM/DL (6.4-8.2)
[2021-05-26 05:50] LABS: BILIRUBIN,TOTAL 0.4 MG/DL (0.1-1.0)
[2021-05-26 05:52] LABS: CREATININE SERUM 1.06 MG/DL (0.60-1.30); PHOSPHORUS 2.4 MG/DL (2.3-4.7)
[2021-05-26 05:55] LABS: MAGNESIUM 1.9 MG/DL (1.6-2.4)
[2021-05-26] MEDS: inSUlin ASPART (NovoLOG) 1 UNIT/0.01 ML (CHARGE PER UNIT) SC SCH ×4 (05:57→21:06)
--- NOTE | 2021-05-26 06:40 | Progress Note - Hospitalist ---
Subjective HPI/CC On Admission Date Seen by Provider: May 26, 2021 Time Seen by Provider: 12:00 Subjective/Events-last exam Patient doing a lot better Her coloring looks much better Transfer to fourth floor Reviewed labs Check meds and labs Diarrhea much improved Vancomycin p.o. and Flagyl IV Review of Systems General: Fatigue, Malaise Neurological: Weakness Focused Exam Time of Focused Exam: 05:45 Objective Exam Vital Signs Vital Signs Date Time Temp Pulse Resp B/P (MAP) Pulse Ox O2 Delivery O2 Flow Rate FiO2 05/27/21 04:01 36.1 61 21 143/83 (103) 96 Nasal Cannula 3.00 Capillary Refill : Less Than 3 Seconds General Appearance: No Apparent Distress, WD/WN, Chronically ill, Obese Respiratory: Lungs Clear, Normal Breath Sounds Cardiovascular: Irregularly Irregular Neurologic/Psychiatric: Alert, Oriented x3, No Motor/Sensory Deficits, Normal Mood/Affect Results/Procedures Lab Patient resulted labs reviewed. Assessment/Plan Assessment and Plan Assess & Plan/Chief Complaint Assessment: (1) Colitis C. difficile confirmed started vancomycin p.o. (2) Abnormal chest xray No evidence of pneumonia (3) Abnormal radiological findings in skin and subcutaneous tissue Monitor only (4) Diabetes Status: Chronic Assessment & Plan: Diabetic diet as tolerated, sliding scale insulin. Qualifiers: (5) Hypertension Status: Chronic Assessment & Plan: Resume home meds as needed. Qualifiers: Qualified Codes: I10 - Essential (primary) hypertension (6) Hypothyroidism Status: Chronic Assessment & Plan: Resume home medication Qualifiers: Qualified Codes: E89.0 - Postprocedural hypothyroidism (7) COPD (chronic obstructive pulmonary disease) Status: Chronic Assessment & Plan: On supplemental oxygen at home. Resume home albuterol. (8) Renal cell carcinoma Status: Chronic Assessment & Plan: s/p nephrectomy 04/2021 (9) Morbid obesity Status: Chronic (10) Chronic atrial fibrillation Status: Acute Assessment & Plan: Resume home meds (11) DVT prophylaxis Status: Acute Assessment & Plan: Resume home apixaban. Plan: Supportive care Vancomycin p.o. Prognosis appears to be poor 05/26/21: Transfer to floor Meds reviewed OKSANA SCHULTZ DO May 26, 2021 06:40
[2021-05-26] MEDS: predniSONE 20 MG TAB PO SCH (06:47)
[2021-05-26] MEDS: FUROSEMIDE 20 MG (LASIX) TAB PO SCH (08:30)
[2021-05-26] MEDS: meTOprolol TARTRATE 50 MG (LOPRESSOR) TAB PO SCH (08:30)
[2021-05-26] MEDS: APIXABAN 5 MG (ELIQUIS) TABLET PO SCH ×2 (08:30→21:04)
[2021-05-26] MEDS: lisINopril 10 MG (PRINIVIL) TABLET PO SCH (08:30)
[2021-05-26] MEDS: metroNIDAZOLE 500 MG/100 ML IVPB (PRE-MIX) IV SCH ×2 (08:30→21:04)
[2021-05-26] MEDS: PANTOPRAZOLE 40 MG (PROTONIX) TAB PO SCH (08:30)
--- NOTE | 2021-05-26 09:05 | Tele-ICU Progress Note ---
Progress Note Tele ICU 70 yo woman admitted 05/23 with abdominal pain complaint- identified as colitis- had been admitted with post op ileus in Apr 25- after L nephrectomy on 04/23 for renal cell carcinoma. 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 Surgeries were done at [facility]. Is chronic pain pt on Oxycodone 15 mg q. 4 hrs (120 MME) , continue cigarettes. CT on admit -in ED 1. Wall thickening and inflammatory stranding seen within the distal descending and proximal sigmoid colon. Findings could be seen with infectious or inflammatory colitis, although diverticulitis could have a similar appearance. No focally inflamed diverticula are seen. No adjacent abscess or free air. 2. Stable loculated fluid collection within the right abdominal subcutaneous tissues. Redemonstrated loculated air and fluid collection within the left abdominal subcutaneous tissues with incr eased fluid and decreased air. Is covered for suspected C diff colitis since admit--C DIFF is CONFIRMED. continued medical management of COPD, Diabetes and chronic pain mgmt per primary service. Eliquis is continued and Pantoprazole is on med list. No teleICU needs at this time per nursing. Focused Exam Height, Weight, BMI Height: '64.00" Weight: 261lbs. oz. 118.222486kg; 45.17 BMI Method: Time of Focused Exam: 05:45 AUBRIE JAIME DO May 26, 2021 09:05
[2021-05-26] MEDS: RT--FLUTICASONE/SALMETEROL 232-14 (AIRDUO RespiCLICK) IH PRN ×2 (09:40→20:40)
--- NOTE | 2021-05-26 10:12 | Cardiology Progress Note ---
Progress Note-Cardiology Events since last exam Date Seen by Provider: May 26, 2021 Time Seen by Provider: 10:08 Events since last exam I am following her due to permanent atrial fibrillation. She is in the hospital with abdominal issues. She remains in the intensive care unit. Her metoprolol has been on hold due to bradycardia and last evening, her heart rate dropped into the 30s. She was asymptomatic. She denies chest discomfort, dyspnea at rest, palpitations, syncope or lower extremity edema of the left leg. Certain portions of this document may have been dictated utilizing voice recognition technology. Inherent to this technology, typographical and grammatical errors may exist. As much as I am diligent to identify and correct these mistakes, some errors may remain in the document. Vitals Last set of Vitals Signs Vital Signs 05/26/21 05/26/21 07:23 10:00 Temp 36.0 Pulse 59 Resp 12 B/P (MAP) 154/71 (98) Pulse Ox 93 O2 Delivery Nasal Cannula O2 Flow Rate 3.00 Labs Labs Laboratory Tests 05/26/21 04:40 Exam Vital Signs Vital Signs Date Time Temp Pulse Resp B/P (MAP) Pulse Ox O2 Delivery O2 Flow Rate FiO2 05/26/21 10:00 59 12 154/71 (98) 93 Nasal Cannula 3.00 05/26/21 07:23 36.0 Physical Exam General: Alert. No acute distress. She is morbidly obese. Eye: No xanthelasma. HENT: Normocephalic. Neck: Jugular venous pressure does not appear elevated. Respiratory: Lungs are clear to auscultation. Respirations are non-labored. Breath sounds are equal. Symmetrical chest wall expansion. Cardiovascular: Bradycardia. Irregular rhythm. No murmur. No gallop. Trace edema of left lower extremity. 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 Gastrointestinal: Soft. Normal bowel sounds. Skin: Warm. Dry. Neurologic: Alert and oriented to person, place, time. Cranial nerves 3-11 grossly intact. Psychiatric: Cooperative. Appropriate mood & affect. Labs Laboratory Tests Test 05/25/21 12:23 05/25/21 18:29 05/25/21 23:17 05/26/21 04:40 Range/Units Glucometer 143 H 195 H 149 H 70-110 MG/DL White Blood Count 7.0 4.3-11.0 10^3/uL Red Blood Count 3.42 L 3.80-5.11 10^6/uL Hemoglobin 10.0 L 11.5-16.0 g/dL Hematocrit 33 L 35-52 % Mean Corpuscular Volume 96 80-99 fL Mean Corpuscular Hemoglobin 29 25-34 pg Mean Corpuscular Hemoglobin Concent 30 L 32-36 g/dL Red Cell Distribution Width 16.4 H 10.0-14.5 % Platelet Count 262 130-400 10^3/uL Mean Platelet Volume 10.0 9.0-12.2 fL Immature Granulocyte % (Auto) 1 % Neutrophils (%) (Auto) 72 42-75 % Lymphocytes (%) (Auto) 18 12-44 % Monocytes (%) (Auto) 8 0-12 % Eosinophils (%) (Auto) 1 0-10 % Basophils (%) (Auto) 0 0-10 % Neutrophils # (Auto) 5.0 1.8-7.8 10^3/uL Lymphocytes # (Auto) 1.3 1.0-4.0 10^3/uL Monocytes # (Auto) 0.6 0.0-1.0 10^3/uL Eosinophils # (Auto) 0.1 0.0-0.3 10^3/uL Basophils # (Auto) 0.0 0.0-0.1 10^3/uL Immature Granulocyte # (Auto) 0.1 0.0-0.1 10^3/uL Sodium Level 134 L 135-145 MMOL/L Potassium Level 3.8 3.6-5.0 MMOL/L Chloride Level 98 98-107 MMOL/L Carbon Dioxide Level 23 21-32 MMOL/L Anion Gap 13 5-14 MMOL/L Blood Urea Nitrogen 14 7-18 MG/DL Creatinine 1.06 0.60-1.30 MG/DL Estimat Glomerular Filtration Rate 52 BUN/Creatinine Ratio 13 Glucose Level 123 H 70-105 MG/DL Calcium Level 9.0 8.5-10.1 MG/DL Corrected Calcium 9.9 8.5-10.1 MG/DL Phosphorus Level 2.4 2.3-4.7 MG/DL Magnesium Level 1.9 1.6-2.4 MG/DL Total Bilirubin 0.4 0.1-1.0 MG/DL Aspartate Amino Transf (AST/SGOT) 17 5-34 U/L Alanine Aminotransferase (ALT/SGPT) 12 0-55 U/L Alkaline Phosphatase 55 40-136 U/L Total Protein 6.5 6.4-8.2 GM/DL Albumin 2.9 L 3.2-4.5 GM/DL Diagnosis/Problems Diagnosis/Problems (1) Permanent atrial fibrillation Assessment & Plan: She has permanent atrial fibrillation. She has been on metoprolol tartrate for rate control and had some tachycardia the evening she was transferred to the intensive care unit. Now she has bradycardia. Metoprolol has been on hold. I will discontinue the metoprolol completely. She may not need this on discharge. She should continue apixaban for stroke prophylaxis. If she is still here on Thursday, I will plan on an echocardiogram at that time. (2) Atrioventricular node dysfunction Assessment & Plan: Given the bradycardia with underlying atrial fibrillation, she probably has some degree of AV jeet dysfunction. I will stop the beta- elaina as above. There are no indications for permanent pacemaker at this time. (3) Primary hypertension Assessment & Plan: Blood pressures have been intermittently elevated since holding the metoprolol. I started her on KIRAN inhibitor on 05/25. Given her diabetes, she should probably be on an KIRAN inhibitor as an outpatient for its renal protective effects. We will just need to watch her renal function closely with the KIRAN inhibitor. She did not have a BMP this morning. I have added a BMP for today and tomorrow. Her blood pressures are still intermittently elevated. We may need to make some additional adjustments to her antihypertensive medication. (4) Mixed hyperlipidemia Assessment & Plan: Continue statin medication. Her LDL level is under good control as noted on the cholesterol level from 05/25 (5) Chronic kidney disease, stage 3 Assessment & Plan: As above, I will add KIRAN inhibitor due to her hypertension and diabetes. Given the chronic kidney disease, we will need to watch the creatinine level closely. (6) Type 2 diabetes mellitus with complication Assessment & Plan: This is being managed by the hospitalist. (7) Morbid obesity Status: Chronic Assessment & Plan: She needs to work on weight loss. 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 (8) Cigarette smoker Assessment & Plan: She had previously quit smoking but after this years medical problems, she has gone back to smoking. Smoking cessation was strongly encouraged. DAVID RAYMOND JR, MD May 26, 2021 10:12
[2021-05-26] MEDS: DICYCLOMINE 10 MG (BENTYL) CAP PO PRN (18:13)
[2021-05-26] MEDS ORDERED: lisINopril 10 MG (PRINIVIL) TABLET PO ONE (20:00)
[2021-05-26] MEDS: MAGNESIUM OXIDE (MAG-OX)400 MG TAB PO SCH (21:04)
[2021-05-26] MEDS: GABAPENTIN 300 MG (NEURONTIN) CAP PO SCH (21:04)
[2021-05-27] MEDS: DICYCLOMINE 10 MG (BENTYL) CAP PO PRN ×2 (02:01→14:25)
[2021-05-27] MEDS: fentaNYL INJ 100 MCG/2 ML AMP IV PRN ×4 (02:02→21:23)
[2021-05-27 04:01] VITALS: BP 143/83
[2021-05-27] MEDS: LEVOTHYROXINE 100 MCG (LEVOTHROID) TAB PO SCH (06:06)
[2021-05-27] MEDS: VANCOMYCIN 125 MG CAPSULE PO SCH ×3 (06:06→18:15)
[2021-05-27] MEDS: predniSONE 20 MG TAB PO SCH (06:07)
[2021-05-27] MEDS: inSUlin ASPART (NovoLOG) 1 UNIT/0.01 ML (CHARGE PER UNIT) SC SCH ×4 (06:07→21:12)
[2021-05-27 06:23] LABS: BASOPHILS % (AUTO) 0 % (0-10); EOSINOPHILS # (AUTO) 0.1 10^3/uL (0.0-0.3); EOSINOPHILS % (AUTO) 1 % (0-10); HEMATOCRIT 36 % (35-52); HEMOGLOBIN 10.5 g/dL (11.5-16.0); LYMPHOCYTES # (AUTO) 1.2 10^3/uL (1.0-4.0); LYMPHOCYTES % (AUTO) 18 % (12-44); MEAN CORPUSCULAR HEMOGLOBIN 28 pg (25-34); MEAN CORPUSCULAR HGB CONC 29 g/dL (32-36); MEAN CORPUSCULAR VOLUME 97 fL (80-99); MEAN PLATELET VOLUME 10.8 fL (9.0-12.2); MONOCYTES # (AUTO) 0.6 10^3/uL (0.0-1.0); MONOCYTES % (AUTO) 9 % (0-12); NEUTROPHILS # (AUTO) 4.9 10^3/uL (1.8-7.8); NEUTROPHILS % (AUTO) 72 % (42-75); PLATELET COUNT 225 10^3/uL (130-400); WHITE BLOOD COUNT 6.8 10^3/uL (4.3-11.0)
[2021-05-27 06:31] LABS: ALBUMIN 3.1 GM/DL (3.2-4.5)
[2021-05-27 06:32] LABS: POTASSIUM 3.8 MMOL/L (3.6-5.0)
[2021-05-27 06:33] LABS: CALCIUM 9.1 MG/DL (8.5-10.1)
[2021-05-27 06:34] LABS: TOTAL PROTEIN 6.8 GM/DL (6.4-8.2)
[2021-05-27 06:36] LABS: BILIRUBIN,TOTAL 0.5 MG/DL (0.1-1.0)
[2021-05-27 06:38] LABS: CREATININE SERUM 1.28 MG/DL (0.60-1.30)
[2021-05-27 08:00] VITALS: BP 125/71
[2021-05-27] MEDS: RT--FLUTICASONE/SALMETEROL 232-14 (AIRDUO RespiCLICK) IH PRN ×2 (08:05→19:16)
[2021-05-27] MEDS: lisINopril 10 MG (PRINIVIL) TABLET PO SCH (08:29)
[2021-05-27] MEDS: APIXABAN 5 MG (ELIQUIS) TABLET PO SCH ×2 (08:29→21:12)
[2021-05-27] MEDS: PANTOPRAZOLE 40 MG (PROTONIX) TAB PO SCH (08:29)
[2021-05-27] MEDS: FUROSEMIDE 20 MG (LASIX) TAB PO SCH (08:30)
[2021-05-27] MEDS: metroNIDAZOLE 500 MG/100 ML IVPB (PRE-MIX) IV SCH ×2 (08:33→21:11)
--- NOTE | 2021-05-27 10:54 | Physical Therapy Evaluation ---
PT Evaluation-General Medical Diagnosis Admission Date May 23, 2021 at 05:30 Medical Diagnosis: colitis/DM/abdominal wall abscess Onset Date: May 23, 2021 Therapy Diagnosis Therapy Diagnosis: weakness Height/Weight Height (Inches): 64.00 Weight (Pounds): 261 Precautions Precautions/Isolations: Contact Isolation, Fall Prevention Referral Physician: Mony Reason for Referral: Evaluation/Treatment Medical History Pertinent Medical History: Atrial Fib, COPD, DM, HTN, Smoking Additional Medical History renal cell carcinoma/morbid obesity/right LE total amputation Current History EMS x 2 ER visits for abdominal pain x 2-3 days Reviewed History: Yes Social History Home: Apartment Current Living Status: caregivers Entry Into Home: Level Entry Prior Prior Level of Function SCALE: Activities may be completed with or without assistive devices. 5-Gzwuunmhea-xdifwis completes the activity by him/herself with no assistance from a helper. 5-Set-up or Clean-up Assistance-helper sets up or cleans up; patient completes activity. [place] assists only prior to or following the activity. 4-Supervision or Touching Assistance-helper provides verbal cues and/or touching/steadying and/or contact guard assistance as patient completes activity. Assistance may be provided throughout the activity or intermittently. 3-Partial/Moderate Assistance-helper does LESS THAN HALF the effort. [place] lifts, holds or supports trunk or limbs, but provides less than half the effort. 2-Substantial/Maximal Assistance-helper does MORE THAN HALF the effort. [place] l ifts or holds trunk or limbs and provides more than half the effort. 5-Ksmrunglx-cjqlww does ALL the effort. Patient does none of the effort to complete the activity. Or, the assistance of 2 or more helpers is required for the patient to complete the activity. If activity was not attempted, code reason: 7-Patient Refused. 9-Not Applicable-not attempted and the patient did not perform the activity before the current illness, exacerbation or injury. 10-Not Attempted due to Environmental Limitations-(lack of equipment, weather restraints, etc.). 88-Not Attempted due to Medical Conditions or Safety Concerns. Bed Mobility: 2 Transfers (B,C,W/C): 1 Gait: 9 Stairs: 9 Indoor Mobility (Ambulation): Not [place] Stairs: Not [place] Prior Devices Use: Manual wheelchair, Mechanical lift PT Evaluation-Current Subjective Patient agrees to PT. Objective Patient Orientation: Normal For Age Attachments: Oxygen, Suprapubic Catheter, IV ROM/Strength ROM Lower Extremities right LE total amputation/left LE WFL Strength Lower Extremities NT/NA Integumentary/Posture Bladder Incontinence: Marte Cath Neuromuscular (Tone, Coordination, Reflexes) grossly intact Sensory Vision: Wears Glasses Hearing: Functional Transfers Roll Left to Right (QC): 2 Chair/Hrd-sc-Dzlih Xfer(QC): 1 (Monica Lift) Gait Does the Patient Walk?: No and Walking Goal NOT indicated Assessment/Needs 70 y.o. female, will be seen short term by skilled PT to address functional strength to assist with bed mobility (rolling) to assist with Monica Lift sling placement for transfers. Rehab Potential: Poor PT Short Term Goals Short Term Goals Time Frame: May 31, 2021 Roll Left & Right: 3 PT Plan Problem List Problem List: Activity Tolerance, Functional Strength, Bed Mobility Treatment/Plan Treatment Plan: Continue Plan of Care Treatment Plan: Bed Mobility, Education, Functional Activity Yesenia, Functional Strength, Therapeutic Exercise Treatment Duration: May 31, 2021 Frequency: 5 times per week Estimated Hrs Per Day: .25 hour per day Patient and/or Family Agrees t: Yes Time/GCodes Time In: 1015 Time Out: 1041 Total Billed Treatment Time: 26 Total Billed Treatment 1 visit EVModC 12 min FA 14 min ENEDINA RYAN PT May 27, 2021 10:54
[2021-05-27] MEDS: NS IV 1000 ML 1,000 ML IV SCH (11:21)
--- NOTE | 2021-05-27 11:40 | Occupational Therapy Eval ---
OT Evaluation-General/PLF Medical Diagnosis Admission Date May 23, 2021 at 05:30 Medical Diagnosis: colitis/DM/abdominal wall abscess Onset Date: May 23, 2021 Therapy Diagnosis Therapy Diagnosis: NA Height/Weight Height (Inches): 64.00 Weight (Pounds): 261 Precautions Precautions/Isolations: Contact Isolation, Fall Prevention Referral Physician: Mony Escamilla Reason: Evaluation/Treatment Medical History Pertinent Medical History: Atrial Fib, COPD, DM, HTN, Smoking Additional Medical History Renal cell carcinoma, hyperlipidemia, R leg amputation at hip, L nephrectomy 04/23/21, L TKA, chronic NWB Current History ED due to abdominal pain, checked out and able to discharge home. Pain continued to worsen, called EMS day after discharge and returned to hospital. Social History Home: Apartment Current Living Status: caregivers Entry Into Home: Level Entry ADL-Prior Level of Function SCALE: Activities may be completed with or without assistive devices. 5-Kjhhkflcdb-kybubcw completes the activity by him/herself with no assistance from a helper. 5-Set-up or Clean-up Assistance-helper sets up or cleans up; patient completes activity. [place] assists only prior to or following the activity. 4-Supervision or Touching Assistance-helper provides verbal cues and/or touching/steadying and/or contact guard assistance as patient completes activity. Assistance may be provided throughout the activity or intermittently. 3-Partial/Moderate Assistance-helper does LESS THAN HALF the effort. [place] lifts, holds or supports trunk or limbs, but provides less than half the effort. 2-Substantial/Maximal Assistance-helper does MORE THAN HALF the effort. [place] lifts or holds trunk or limbs and provides more than half the effort. 4-Phovoxsna-zcqjad does ALL the effort. Patient does none of the effort to complete the activity. Or, the assistance of 2 or more helpers is required for the patient to complete the activity. If activity was not attempted, code reason: 7-Patient Refused. 9-Not Applicable-not attempted and the patient did not perform the activity before the current illness, exacerbation or injury. 10-Not Attempted due to Environmental Limitations-(lack of equipment, weather restraints, etc.). 88-Not Attempted due to Medical Conditions or Safety Concerns. ADL PLOF Comments Pt has caregiver assistance at home. She only completes sponge baths, able to wash UEs, assist washing lower body. She has assistance with dressing tasks. Set up assistance with oral care and eating. Pt uses hoyers for transferring to manual w/c. Self Care: Needed Some Help Functional Cognition: Independent OT Current Status Subjective Pt up in recliner, agreeable to OT Tx. Pt reports she is at baseline with ADL function. Mental Status/Objective Patient Orientation: Person, Place, Time, Situation Attachments: Marte Catheter, Oxygen Current Upper Extremity ROM WFL, shoulder flexion to approx 140 degrees bilaterally. Upper Extremity Coordination WFL Upper Extremity Sensation WFL ADL-Treatment Eating (QC): 5 (per pt report) Oral Hygiene (QC): 5 (per pt report and based on clincial judgment.) Shower/Bathe Self (QC): 3 (Mod A sponge bath. Assist washing BLEs and periarea. Pt washed UEs, chest and abdomen.) Upper Body Dressing (QC): 3 (Min A changing hospital gown.) Other Treatments Pt seated in recliner, completed sponge bath and changed hospital gown as outlined above. Pt reports she is at her baseline with ADL function, as she has caregiver assistance at home for dressing and sponge baths. In order to increase BUE strength and activity tolerance, pt completed x15 reps each of the following exercises: shoulder flexion, horizontal abduction, and elbow flexion/extension. Pt understands to continue exercises to increase strength. Post tx, pt in chair, call light in reach and all needs met. Education OT Patient Education: Correct positioning, Energy conservation, Exercise program, Modified ADL techniques, Progress toward Goal/Update tx plan, Purpose of tx/functional activities, Rehab process Teaching Recipient: Patient Teaching Methods: Discussion Response to Teaching: Verbalize Understanding OT Bench Carpenter Goals Correction Goals 1=Demonstrate adherence to instructed precautions during ADL tasks. 2=Patient will verbalize/demonstrate understanding of assistive devices/modific ations for ADL. 3=Patient will improve strength/tolerance for activity to enable patient to perform ADL's. OT Education/Plan Problem List/Assessment Assessment: No Skilled OT Needs ID'd No skilled OT services indicated at this time, as pt is at PLOF with ADLs. Dependent with functional mobility using dina transfer. Discharge Recommendations Plan/Recommendations: Discharge/Goals Met Treatment Plan/Plan of Care Treatment,Training & Education: Yes Patient would benefit from OT for education, treatment and training to promote independence in ADL's, mobility, safety and/or upper extremity function for ADL's. Plan of Care: ADL Retraining, UE Funct Exercise/Act Treatment Duration: May 27, 2021 Frequency: 1 time per week (eval only) Rehab Potential: Poor Time/GCodes Start Time: 11:08 Stop Time: 11:19 Total Time Billed (hr/min): 11 Billed Treatment Time 1, PETRA HEARN OT May 27, 2021 11:40
[2021-05-27 12:00] VITALS: BP 149/89
--- NOTE | 2021-05-27 12:26 | Progress Note - Hospitalist ---
KWESIJocelinHANSA LIRIANO 05/27/21 1226: Subjective HPI/CC On Admission Date Seen by Provider: May 27, 2021 Time Seen by Provider: 08:50 CC: Acute colitis Subjective/Events-last exam Shmuel appears fatigued and chronically ill, but is A&O and conversational Admits to some abdominal pain Has appetite Has not had a bowel movement in 2 days Denies any SOB or CP Continue Oral Vanc for c-diff Has permanent A-fib with RVR, currently maintained on Eliquis 5mg BID Suspected AV jeet dysfunction d/t bradycardia => beta elaina was discontinued CXR revealed progressive infiltrate of L lung Focused Exam Sepsis Stage: Ruled Out Reason for ruling out sepsis: New infection, but no SIRS criteria present Time of Focused Exam: 05:45 Respiratory: Chest Non Tender, Lungs Clear, Normal Breath Sounds, No Accessory Muscle Use, No Respiratory Distress Cardiovascular: Bradycardia, Irregularly Irregular Objective Exam Vital Signs Vital Signs Date Time Temp Pulse Resp B/P (MAP) Pulse Ox O2 Delivery O2 Flow Rate FiO2 05/27/21 09:00 Nasal Cannula 3.00 05/27/21 08:05 93 05/27/21 08:00 36.4 85 20 125/71 (89) Capillary Refill : Less Than 3 Seconds General Appearance: No Apparent Distress, WD/WN, Chronically ill HEENT: PERRL/EOMI Respiratory: Normal Breath Sounds, No Accessory Muscle Use, No Respiratory Distress Cardiovascular: Bradycardia, Irregularly Irregular Gastrointestinal: Distended, Rebound Results/Procedures Lab Laboratory Tests 05/27/21 05:44 Patient resulted labs reviewed. Radiology NAME: SHMUEL POSADAS [facility] REC#: [id number] PT STATUS: ADM IN : 1950 PHYSICIAN: ANGELITA SCHULTZ DO ADMIT DATE: 05/23/21/ICU Signed Date of Exam:05/24/21 CHEST 1 VIEW, AP/PA ONLY INDICATION: Chest pain. COMPARISON: 05/22/2021. FINDINGS: Single frontal radiographic view of the chest was obtained and again demonstrates moderate scattered patchy and confluent airspace opacities throughout the left lung. This does appear slightly progressed when compared to prior exam. There may be a component of volume loss as well. No large effusion is seen on the right. Small effusion cannot be excluded on the left. There is no pneumothorax. Heart size is partially obscured, but appears to be within normal limits. Osseous structures show no acute abnormality. IMPRESSION: Progressive infiltrate throughout the left lung. Dictated by: Dictated on workstation # [id number] Dict: 05/24/212000 Trans: 05/25/211655 PJE [id number] Interpreted by: KARYN MONTES MD Electronically signed by: KARYN MONTES MD 05/25/211655 Meds Item Value Date Time Insulin Aspart SLIDING SCALE A BLOO... 05/26/21 1615 (NovoLOG (CHARGE ACHS/SC PER UNIT)) Lisinopril 10 mg 05/26/21 0900 (Zestril Tablet) DAILY/PO 05/27/21 0829 Vancomycin HCl 125 mg 05/25/21 1200 (Vancomycin Oral Q6HR/PO 05/27/21 1121 Capsule) Dicyclomine HCl 10 mg 05/25/21 1130 (Bentyl Capsule) Q6HR PRN/PO 05/27/21 0201 Pantoprazole 40 mg 05/25/21 0900 Sodium DAILY/PO 05/27/21 0829 (Protonix Tablet) Furosemide 60 mg 05/25/21 0900 (Lasix Tablet) DAILY/PO 05/27/21 0830 Levothyroxine 100 mcg 05/25/21 0630 Sodium DAILY@0630/PO 05/27/21 0606 (Synthroid Tablet) Magnesium Oxide 400 mg 05/24/212099 (Mag Ox Tablet) HS/PO 05/26/212103 Insulin Detemir 15 unit 05/24/212099 (LeveMIR (PER HS/SQ 05/26/212104 UNIT)) Gabapentin 300 mg 05/24/212099 (Neurontin HS/PO 05/26/212103 Capsule/Tablet) Atorvastatin 20 mg 05/24/21 2100 Calcium HS/PO 05/26/212104 (Lipitor Tablet) Salmeterol 1 INHALATION 05/24/21 1730 Xinafoate/ RTBID PRN/IH 05/27/21 0805 Fluticasone (AIRDUO RespCLICK 232-14) Melatonin 5 mg 05/24/21 1730 (Melatonin HS PRN/PO 05/25/212027 Tablet) Sodium Chloride 1,000 ml @ 75 mls/hr 05/24/21 1547 Acetaminophen 1,000 mg 05/24/21 1545 (Tylenol Tablet) Q6H PRN/PO Prednisone 50 mg 05/24/21 1445 (Deltasone DAILY@0700/PO 05/27/21 0607 Tablet) Sodium Chloride 05/24/21 0930 ([place] Nasal NEEDED PRN/NA 05/24/21 0954 [place]) Apixaban 5 mg 05/23/21 2100 (Eliquis Tablet) BID/PO 05/27/21 0829 Metronidazole 100 ml @ 100 mls/hr 05/23/21 2100 Albuterol Sulfate 2 mg 05/23/21 1215 (Proventil Q4H PRN/INH 05/24/21 2000 Pre-Mix Nebs (Rt)) Ondansetron HCl 4 mg 05/23/21 0630 (Zofran Q4H PRN/IV Injection (Sdv)) Fentanyl Citrate 50 mcg 05/23/21 0630 (Sublimaze Q2H PRN/IV 05/27/21 0623 Injection) Assessment/Plan Assessment and Plan Assess & Plan/Chief Complaint Assessment/Plan 1. Colitis C-diff confirmed Maintained on oral vancomycin Monitor closely 2. Abnormal Chest-X-ray No evidence of penumonia 3. Permanent A-fib with RVR 4. AV jeet dysfunction Being managed by Dr. Crow She has been on metoprolol tartrate for rate control and had some tachycardia the evening she was transferred to the intensive care unit. Now she has bradycardia. Metoprolol has been on hold and will be discontinued completely EKG today (05/27/2021). Eliquis for stroke prophylaxis No indications for pacemaker at this time 5. Diabetes Sliding scale insulin 6. Hypertension Continue Lisinopril 7. Hypothyroidism Continue home regimen 8. COPD Uses supplemental oxygen at home Resume albuterol 9. Renal Cell Carcinoma Critical Care: Critically Ill Patient ANGELITA SCHULTZ DO 05/28/21 0545: Subjective Subjective/Events-last exam Patient doing better PT OT ordered Monica lift Repeat CXR Labs reviewed Review of Systems General: Fatigue, Malaise Objective Exam General Appearance: No Apparent Distress, WD/WN, Chronically ill, Obese Respiratory: Lungs Clear, Normal Breath Sounds Cardiovascular: Bradycardia, Irregularly Irregular Neurologic/Psychiatric: Alert, Oriented x3, No Motor/Sensory Deficits, Normal Mood/Affect Assessment/Plan Assessment and Plan Assess & Plan/Chief Complaint Vanc PO Repeat CXR Supervisory-Addendum Brief Verification & Attestation Participated in pt care: history, MDM, physical Personally performed: exam, history, MDM, supervision of care Care discussed with: Medical Student Procedures: n/a Results interpretation: Verified all documentation Verification and Attestation of Medical Student E/M Service A medical student performed and documented this service in my presence. I r eviewed and verified all information documented by the medical student and made modifications to such information, when appropriate. I personally performed the physical exam and medical decision making. Angelita Schultz, May 28, 2021,05:43 HANSA SMITH May 27, 2021 12:26 ANGELITA SCHULTZ DO May 28, 2021 05:45
[2021-05-27 15:46] VITALS: BP 189/91
--- NOTE | 2021-05-27 15:54 | Cardiology Progress Note ---
Progress Note-Cardiology Events since last exam Date Seen by Provider: May 27, 2021 Time Seen by Provider: 15:51 Events since last exam I am following her due to atrial fibrillation and bradycardia. When I was first called about atrial fibrillation, she was actually having tachycardia. Then she developed bradycardia. I stopped her beta-elaina. She is here with gastrointestinal issues. She has been transferred out of the intensive care unit to the medical floor overnight. I was called earlier today due to elevated blood pressures. She feels much better today. She denies chest pain, dyspnea at rest, palpitations, syncope or lower extremity edema of her left lower extremity. Certain portions of this document may have been dictated utilizing voice recognition technology. Inherent to this technology, typographical and grammatical errors may exist. As much as I am diligent to identify and correct these mistakes, some errors may remain in the document. Vitals Last set of Vitals Signs Vital Signs 05/27/21 15:46 Temp 35.5 Pulse 75 Resp 20 B/P (MAP) 189/91 (123) Pulse Ox 95 O2 Delivery High Flow N/C O2 Flow Rate 3.00 Labs Labs Laboratory Tests 05/27/21 05:44 Exam Vital Signs Vital Signs Date Time Temp Pulse Resp B/P (MAP) Pulse Ox O2 Delivery O2 Flow Rate FiO2 05/27/21 15:46 35.5 75 20 189/91 (123) 95 High Flow N/C 3.00 Physical Exam General: Alert. No acute distress. She is morbidly obese. Eye: No xanthelasma. HENT: Normocephalic. Neck: Jugular venous pressure does not appear elevated. Respiratory: Lungs are clear to auscultation. Respirations are non-labored. Breath sounds are equal. Symmetrical chest wall expansion. Cardiovascular: Regular rate. Irregular rhythm. No murmur. No gallop. Trace edema of left lower extremity. 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 Gastrointestinal: Soft. Normal bowel sounds. Skin: Warm. Dry. Neurologic: Alert and oriented to person, place, time. Cranial nerves 3-11 grossly intact. Psychiatric: Cooperative. Appropriate mood & affect. Labs Laboratory Tests Test 05/26/21 20:53 05/27/21 05:43 05/27/21 05:44 05/27/21 11:09 Range/Units Glucometer 182 H 121 H 175 H 70-110 MG/DL White Blood Count 6.8 4.3-11.0 10^3/uL Red Blood Count 3.70 L 3.80-5.11 10^6/uL Hemoglobin 10.5 L 11.5-16.0 g/dL Hematocrit 36 35-52 % Mean Corpuscular Volume 97 80-99 fL Mean Corpuscular Hemoglobin 28 25-34 pg Mean Corpuscular Hemoglobin Concent 29 L 32-36 g/dL Red Cell Distribution Width 16.0 H 10.0-14.5 % Platelet Count 225 130-400 10^3/uL Mean Platelet Volume 10.8 9.0-12.2 fL Immature Granulocyte % (Auto) 0 % Neutrophils (%) (Auto) 72 42-75 % Lymphocytes (%) (Auto) 18 12-44 % Monocytes (%) (Auto) 9 0-12 % Eosinophils (%) (Auto) 1 0-10 % Basophils (%) (Auto) 0 0-10 % Neutrophils # (Auto) 4.9 1.8-7.8 10^3/uL Lymphocytes # (Auto) 1.2 1.0-4.0 10^3/uL Monocytes # (Auto) 0.6 0.0-1.0 10^3/uL Eosinophils # (Auto) 0.1 0.0-0.3 10^3/uL Basophils # (Auto) 0.0 0.0-0.1 10^3/uL Immature Granulocyte # (Auto) 0.0 0.0-0.1 10^3/uL Sodium Level 134 L 135-145 MMOL/L Potassium Level 3.8 3.6-5.0 MMOL/L Chloride Level 98 98-107 MMOL/L Carbon Dioxide Level 25 21-32 MMOL/L Anion Gap 11 5-14 MMOL/L Blood Urea Nitrogen 16 7-18 MG/DL Creatinine 1.28 0.60-1.30 MG/DL Estimat Glomerular Filtration Rate 41 BUN/Creatinine Ratio 13 Glucose Level 118 H 70-105 MG/DL Calcium Level 9.1 8.5-10.1 MG/DL Corrected Calcium 9.8 8.5-10.1 MG/DL Total Bilirubin 0.5 0.1-1.0 MG/DL Aspartate Amino Transf (AST/SGOT) 19 5-34 U/L Alanine Aminotransferase (ALT/SGPT) 12 0-55 U/L Alkaline Phosphatase 54 40-136 U/L Total Protein 6.8 6.4-8.2 GM/DL Albumin 3.1 L 3.2-4.5 GM/DL Test 05/27/21 15:22 Range/Units Glucometer 248 H 70-110 MG/DL Diagnosis/Problems Diagnosis/Problems (1) Permanent atrial fibrillation Assessment & Plan: She has permanent atrial fibrillation. She has been on metoprolol tartrate for rate control and had some tachycardia the evening she was transferred to the intensive care unit but then developed bradycardia. I have stopped the metoprolol. She may not need this on discharge. She should continue apixaban for stroke prophylaxis. (2) Atrioventricular node dysfunction Assessment & Plan: Given the bradycardia with underlying atrial fibrillation, she probably has some degree of AV jeet dysfunction. This is improved with stopping beta-elaina. There are no indications for permanent pacemaker at this time. (3) Primary hypertension Assessment & Plan: Blood pressures have been intermittently elevated since holding the metoprolol. I started her on KIRAN inhibitor on 05/25. Given her diabetes, she should probably be on an KIRAN inhibitor as an outpatient for its renal protective effects. The creatinine is starting to become slightly elevated. Due to the elevated blood pressure today, I will start her on amlodipine. I will obtain a follow-up metabolic panel tomorrow. (4) Mixed hyperlipidemia Assessment & Plan: Continue statin medication. Her LDL level is under good control as noted on the cholesterol level from 05/25 (5) Chronic kidney disease, stage 3 Assessment & Plan: As above, I will add KIRAN inhibitor due to her hypertension and diabetes. Given the chronic kidney disease, we will need to watch the cre atinine level closely. (6) Type 2 diabetes mellitus with complication Assessment & Plan: This is being managed by the hospitalist. (7) Morbid obesity Status: Chronic Assessment & Plan: She needs to work on weight loss. 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 (8) Cigarette smoker Assessment & Plan: She had previously quit smoking but after this years medical problems, she has gone back to smoking. Smoking cessation was strongly e ncouraged. DAVID RAYMOND JR, MD May 27, 2021 15:54
[2021-05-27] MEDS ORDERED: amLODIPine 5 MG (NORVASC) TAB PO ONE (16:00)
[2021-05-27 19:30] VITALS: BP 170/74
[2021-05-27] MEDS: MAGNESIUM OXIDE (MAG-OX)400 MG TAB PO SCH (21:11)
[2021-05-27] MEDS: MELATONIN 10 MG TABLET PO PRN (21:12)
[2021-05-27] MEDS: GABAPENTIN 300 MG (NEURONTIN) CAP PO SCH (21:12)
[2021-05-27 23:51] VITALS: BP 161/87
[2021-05-28] MEDS: VANCOMYCIN 125 MG CAPSULE PO SCH ×3 (00:28→11:38)
[2021-05-28] MEDS: fentaNYL INJ 100 MCG/2 ML AMP IV PRN ×2 (01:51→05:20)
[2021-05-28] MEDS: NS IV 1000 ML 1,000 ML IV SCH ×2 (03:05→13:59)
[2021-05-28 04:00] VITALS: BP 194/91
[2021-05-28 04:37] VITALS: BP 175/77
[2021-05-28] MEDS: inSUlin ASPART (NovoLOG) 1 UNIT/0.01 ML (CHARGE PER UNIT) SC SCH ×2 (05:55→10:58)
[2021-05-28 06:05] LABS: BASOPHILS % (AUTO) 0 % (0-10); EOSINOPHILS % (AUTO) 0 % (0-10); HEMATOCRIT 33 % (35-52); HEMOGLOBIN 10.4 g/dL (11.5-16.0); LYMPHOCYTES # (AUTO) 0.9 10^3/uL (1.0-4.0); LYMPHOCYTES % (AUTO) 13 % (12-44); MEAN CORPUSCULAR HEMOGLOBIN 29 pg (25-34); MEAN CORPUSCULAR HGB CONC 32 g/dL (32-36); MEAN CORPUSCULAR VOLUME 91 fL (80-99); MEAN PLATELET VOLUME 9.6 fL (9.0-12.2); MONOCYTES # (AUTO) 0.6 10^3/uL (0.0-1.0); MONOCYTES % (AUTO) 8 % (0-12); NEUTROPHILS # (AUTO) 5.1 10^3/uL (1.8-7.8); NEUTROPHILS % (AUTO) 78 % (42-75); PLATELET COUNT 301 10^3/uL (130-400); WHITE BLOOD COUNT 6.5 10^3/uL (4.3-11.0)
[2021-05-28 06:16] LABS: ALBUMIN 3.2 GM/DL (3.2-4.5); POTASSIUM 3.7 MMOL/L (3.6-5.0)
[2021-05-28 06:18] LABS: CALCIUM 9.1 MG/DL (8.5-10.1)
[2021-05-28 06:19] LABS: TOTAL PROTEIN 6.7 GM/DL (6.4-8.2)
[2021-05-28 06:21] LABS: BILIRUBIN,TOTAL 0.6 MG/DL (0.1-1.0)
[2021-05-28 06:22] LABS: CREATININE SERUM 1.2 MG/DL (0.60-1.30)
[2021-05-28] MEDS: predniSONE 20 MG TAB PO SCH (06:45)
[2021-05-28] MEDS: LEVOTHYROXINE 100 MCG (LEVOTHROID) TAB PO SCH (06:45)
[2021-05-28] MEDS: RT--FLUTICASONE/SALMETEROL 232-14 (AIRDUO RespiCLICK) IH PRN (07:36)
[2021-05-28 08:09] VITALS: BP 152/75
[2021-05-28] MEDS: PANTOPRAZOLE 40 MG (PROTONIX) TAB PO SCH (08:36)
[2021-05-28] MEDS: metroNIDAZOLE 500 MG/100 ML IVPB (PRE-MIX) IV SCH (08:36)
[2021-05-28] MEDS: APIXABAN 5 MG (ELIQUIS) TABLET PO SCH (08:36)
[2021-05-28] MEDS: lisINopril 10 MG (PRINIVIL) TABLET PO SCH (08:36)
[2021-05-28] MEDS: FUROSEMIDE 20 MG (LASIX) TAB PO SCH (08:36)
[2021-05-28] MEDS ORDERED: amLODIPine 5 MG (NORVASC) TAB PO SCH (09:00)
--- NOTE | 2021-05-28 09:22 | Diagnostic Imaging Report ---
INDICATION: Infiltrate. COMPARISON: 05/24/2021. FINDINGS: A single frontal radiographic view of the chest was obtained and again demonstrates diffuse prominence of the interstitium with more focal confluent opacification in the left mid and lower lung field. There does appear to be improved aeration of the left apex. The left lung base is heavily obscured by overlying soft tissue attenuation. There is no large effusion on the right. No pneumothorax is seen on either side. The cardiac silhouette is stable. IMPRESSION: Improved aeration of the left apex; otherwise, persistent bilateral mixed infiltrate, greatest within the left mid and lower lung field. Dictated by: Dictated on workstation # [id number]
--- NOTE | 2021-05-28 10:04 | Physical Therapy Progress Note ---
Therapy Progress Note Patient dismissing to home per physician direct report. No PT rendered. ENEDINA RYAN PT May 28, 2021 10:04
[2021-05-28] MEDS ORDERED: AMLO-250 PO (10:53)
[2021-05-28] MEDS ORDERED: PRED10TA22 PO (10:53)
[2021-05-28] MEDS ORDERED: VANC125C5 PO (10:53)
[2021-05-28] MEDS ORDERED: LISI10TA25 PO (10:53)
[2021-05-28] MEDS ORDERED: OXYC-525 PO (10:53)
--- NOTE | 2021-05-28 10:55 | D/C HH Face to Face Order ---
D/C Face to Face Orders Reconcile Patient Problems Problems Reviewed?: Yes Instructions for Patient Via [facility], Patient Instructions/FollowUp: PCP 1 week Physician to follow Patient: PCP Discharge Diet for Home: ADA Diet Patient Problems: Debility C diff Patient Data-Allergies,Ht & Wt Patient Allergies: Coded Allergies: diphenhydramine (Verified Allergy, Unknown, 05/13/20) Height (Inches): 64.00 Weight (Pounds): 261 Home Health Need/Face to Face Date of Face to Face: May 28, 2021 Clinical Findings: Generalized weakness and fatigue, Muscle weakness I have seen Pt [id number]: Yes Discharged To: Home Diagnosis/Conditions: Debility C diff Patient is Homebound due to: Jd fall risk due to instabilty, Muscle weaknes s, Non-weight bearing Homebound Status Due to the above stated illness, injury or surgical procedure (medical condition or diagnosis) and associated clinical findings, the patient is homebound because of his/her inability to leave home except with aid of a supportive device and/or person AND leaving the home requires a considerable and taxing effort or is medically contraindicated. Pt req the following assistanc: [facility] Nursing Orders Home Health Services Order: Nursing Services, Convention Worker-Evaluate & Treat, Physical Therapy-Evaluate & Treat Certify Stmt I certify that this patient is under my care and that I, a nurse practitioner or a physician; a [employer] assistant working with me, had a face to face encounter that - meets the physician face to face encounter requirements with this patient as dated. OKSANA SCHULTZ DO May 28, 2021 10:55
--- NOTE | 2021-05-28 10:56 | Discharge Summary ---
Discharge Summary Hospital Course Was the Problem List Reviewed?: Yes Problems/Dx: (1) Permanent atrial fibrillation (2) Atrioventricular node dysfunction (3) Primary hypertension (4) Mixed hyperlipidemia (5) Chronic kidney disease, stage 3 (6) Type 2 diabetes mellitus with complication (7) Morbid obesity Status: Chronic (8) Cigarette smoker Hospital Course Date of Admission: May 23, 2021 at 05:30 Admission Diagnosis : Family Physician/Provider: [place] Date of Discharge: 05/28/21 Discharge Diagnosis: c diff colitis, AF RVR episode, severe disability, s/p nephrectomy due to renal cell CA Hospital Course: Katarina Mcguire is a 70 yo female with a history of permanent A-fib with RVR maintained on Eliquis, RCC s/p L nephrectomy, 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 However, that same night, her abdominal pain persisted and became unbearable; she was transported back to the ER via EMS. Prior to this, she reported having a two day history of abdominal pain and frequent soft stools, which was not improved with Immodium. On 05/25/2021, Katarina was admitted to med/surg floor due to hypoxia and tachypnea; cardiology reviewed telemetry and noted A-fib, which likely caused the SOB. As well, C. diff was isolated, and oral vancomycin was initiated. On 05/26/21, Katarina had significant bradycardia suspicious for AV jeet dysfunction, and metoprolol was discontinued. Today, PT/OT determined she was at PLOF. Katarina is to return home today to resume [facility] and complete the course of oral vancomycin over the next few weeks. Labs and Pending Lab Test: Laboratory Tests 05/27/21 11:09: Glucometer 175H 05/27/21 15:22: Glucometer 248H 05/27/21 20:06: Glucometer 228H 05/28/21 05:20: White Blood Count 6.5, Red Blood Count 3.59L, Hemoglobin 10.4L, Hematocrit 33L, Mean Corpuscular Volume 91, Mean Corpuscular Hemoglobin 29, Mean Corpuscular Hemoglobin Concent 32, Red Cell Distribution Width 15.7H, Platelet Count 301, Mean Platelet Volume 9.6, Immature Granulocyte % (Auto) 1, Neutrophils (%) (Auto) 78H, Lymphocytes (%) (Auto) 13, Monocytes (%) (Auto) 8, Eosinophils (%) (Auto) 0, Basophils (%) (Auto) 0, Neutrophils # (Auto) 5.1, Lymphocytes # (Auto) 0.9L, Monocytes # (Auto) 0.6, Eosinophils # (Auto) 0.0, Basophils # (Auto) 0.0, Immature Granulocyte # (Auto) 0.0, Sodium Level 135, Potassium Level 3.7, Chloride Level 95L, Carbon Dioxide Level 29, Anion Gap 11, Blood Urea Nitrogen 21H, Creatinine 1.20, Estimat Glomerular Filtration Rate 45, BUN/Creatinine Ratio 18, Glucose Level 162H, Calcium Level 9.1, Corrected Calcium 9.7, Total Bilirubin 0.6, Aspartate Amino Transf (AST/SGOT) 15, Alanine Aminotransferase (ALT/SGPT) 13, Alkaline Phosphatase 59, Total Protein 6.7, Albumin 3.2 05/28/21 05:33: Glucometer 165H 05/28/21 10:07: Glucometer 200H Microbiology 05/24/21 C. difficile DNA Amplification - Final, Complete 05/24/21 C. difficile GDH Antigen & Toxins - Final, Complete 05/24/21 Stool Culture - Final, Complete See Comments 05/24/21 MRSA Screen - Final, Complete MRSA not isolated 05/23/21 Blood Culture - Preliminary, Resulted No growth Home Meds Active Lisinopril 10 Mg Tablet 10 Mg PO DAILY Amlodipine Besylate 5 Mg Tablet 5 Mg PO DAILY Prednisone 10 Mg Tab.ds.pk 10 Mg PO DAILY Take 4 tabs(40mg)daily,decrease by 1 tab(10MG)daily. Vancomycin HCl 125 Mg Capsule 125 Mg PO QID 1 pill QID for 7 days then 1 pill TID for 5 days then 1 pill BID for 5 days then DC Oxycodone HCl 15 Mg Tablet 15 Mg PO Q4H PRN Reported Airduo Digihaler [id number] Mcg (Fluticasone Propion/Salmeterol) 1 Each Aer.pw.bas 1 Each IH BID PRN Multivitamin 1 Each Tablet 1 Each PO DAILY B Complex (Vitamin B Complex) 1 Each Tablet 1 Each PO DAILY Bisacodyl 5 Mg Tablet.dr 5 Mg PO DAILY PRN Pantoprazole Sodium 40 Mg Tablet.dr 40 Mg PO DAILY Metoprolol Tartrate 50 Mg Tablet 50 Mg PO BID Albuterol Sulfate 2.5 Mg/3 Ml Vial.neb 3 Ml NEB Q6H PRN Vitamin D3 (Cholecalciferol (Vitamin D3)) 50 Mcg Capsule 50 Mcg PO DAILY Januvia (Sitagliptin Phosphate) 100 Mg Tablet 100 Mg PO DAILY Eliquis (Apixaban) 5 Mg Tablet 5 Mg PO BID Atorvastatin Calcium 20 Mg Tablet 20 Mg PO HS Melatonin 5 Mg Tablet 5 Mg PO HS PRN Miralax (Polyethylene Glycol 3350) 17 Gm Powd.pack 17 Gm PO DAILY PRN Senna Lax (Sennosides) 8.6 Mg Tablet 8.6-17.2 Mg PO BID PRN Tylenol Extra Strength (Acetaminophen) 500 Mg Tablet 1,000 Mg PO Q6H PRN Magnesium (Magnesium Oxide) 400 Mg Tablet 400 Mg PO HS Vitamin C (Ascorbate Calcium) 500 Mg Tablet 500 Mg PO DAILY Neurontin (Gabapentin) 300 Mg Capsule 300 Mg PO HS Novolog Flexpen (Insulin Aspart) 300 Units/3 Ml Solution 5 Units SC AC Ozempic (Semaglutide) 1 Mg/0.75 Ml Pen.injctr 1 Mg INJ SAT Ventolin Hfa (Albuterol Sulfate) 18 Gm Hfa.aer.ad 2 Puff INH Q4H PRN Levothyroxine Sodium 100 Mcg Tablet 100 Mcg PO DAILY Levemir Flextouch (Insulin Detemir) 100 Unit/1 Ml Insuln.pen 15 Units SC HS Furosemide 20 Mg Tablet 60 Mg PO DAILY TAKES 3 (20MG) TABS Assessment/Pt Instructions PCP 1 week Discharge Planning: <30 minutes discharge planning Discharge Instructions Discharge Diet: ADA Diet Activity as Tolerated: Yes Discharge Physical Examination Vital Signs Vital Signs Date Time Temp Pulse Resp B/P (MAP) Pulse Ox O2 Delivery O2 Flow Rate FiO2 05/28/21 09:00 Nasal Cannula 3.00 05/28/21 08:09 36.1 68 16 152/75 (100) 93 General Appearance: No Apparent Distress, WD/WN, Chronically ill, Obese Respiratory: Lungs Clear Cardiovascular: Irregularly Irregular Allergies: Coded Allergies: diphenhydramine (Verified Allergy, Unknown, 05/13/20) Discharge Summary Date of Admission May 23, 2021 at 05:30 Date of Discharge Discharge Date: May 28, 2021 Discharge Diagnosis Vanc PO Repeat CXR (1) Permanent atrial fibrillation Assessment & Plan: She has permanent atrial fibrillation. She has been on metoprolol tartrate for rate control and had some tachycardia the evening she was transferred to the intensive care unit but then developed bradycardia. I have stopped the metoprolol. She may not need this on discharge. She should continue apixaban for stroke prophylaxis. (2) Atrioventricular node dysfunction Assessment & Plan: Given the bradycardia with underlying atrial fibrillation, she probably has some degree of AV jeet dysfunction. This is improved with stopping beta-elaina. There are no indications for permanent pacemaker at this time. (3) Primary hypertension Assessment & Plan: Blood pressures have been intermittently elevated since holding the metoprolol. I started her on KIRAN inhibitor on 05/25. Given her diabetes, she should probably be on an KIRAN inhibitor as an outpatient for its renal protective effects. The creatinine is starting to become slightly elevated. Due to the elevated blood pressure today, I will start her on amlodipine. I will obtain a follow-up metabolic panel tomorrow. (4) Mixed hyperlipidemia Assessment & Plan: Continue statin medication. Her LDL level is under good control as noted on the cholesterol level from 05/25 (5) Chronic kidney disease, stage 3 Assessment & Plan: As above, I will add KIRAN inhibitor due to her hypertension and diabetes. Given the chronic kidney disease, we will need to watch the creatinine level closely. (6) Type 2 diabetes mellitus with complication Assessment & Plan: This is being managed by the hospitalist. (7) Morbid obesity Status: Chronic Assessment & Plan: She needs to work on weight loss. 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 (8) Cigarette smoker Assessment & Plan: She had previously quit smoking but after this years medical problems, she has gone back to smoking. Smoking cessation was strongly encouraged. OKSANA SCHULTZ DO May 28, 2021 10:56
[2021-05-28] MEDS: DICYCLOMINE 10 MG (BENTYL) CAP PO PRN (13:56)
--- NOTE | 2021-05-28 14:40 | Progress Note ---
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 However, that same night, her abdominal pain persisted and became unbearable; she was transported back to the ER via EMS. Prior to this, she reported having a two day history of abdominal pain and frequent soft stools, which was not improved with Immodium. On 05/25/2021, Katarina was admitted to med/surg floor due to hypoxia and tachypnea; cardiology reviewed telemetry and noted A-fib, which likely caused the SOB. As well, C. diff was isolated, and oral vancomycin was initiated. On 05/26/21, Katarina had significant bradycardia suspicious for AV jeet dysfunction, and metoprolol was discontinued. Today, PT/OT determined she was at PLOF. Katarina is to return home today to resume [facility] and complete the course of oral vancomycin over the next few weeks. Laboratory Tests 05/25/21 18:29: Glucometer 195H 05/25/21 23:17: Glucometer 149H 05/26/21 04:40: White Blood Count 7.0, Red Blood Count 3.42L, Hemoglobin 10.0L, Hematocrit 33L, Mean Corpuscular Volume 96, Mean Corpuscular Hemoglobin 29, Mean Corpuscular Hemoglobin Concent 30L, Red Cell Distribution Width 16.4H, Platelet Count 262, Mean Platelet Volume 10.0, Immature Granulocyte % (Auto) 1, Neutrophils (%) (Auto) 72, Lymphocytes (%) (Auto) 18, Monocytes (%) (Auto) 8, Eosinophils (%) (Auto) 1, Basophils (%) (Auto) 0, Neutrophils # (Auto) 5.0, Lymphocytes # (Auto) 1.3, Monocytes # (Auto) 0.6, Eosinophils # (Auto) 0.1, Basophils # (Auto) 0.0, Immature Granulocyte # (Auto) 0.1, Sodium Level 134L, Potassium Level 3.8, Chloride Level 98, Carbon Dioxide Level 23, Anion Gap 13, Blood Urea Nitrogen 14, Creatinine 1.06, Estimat Glomerular Filtration Rate 52, BUN/Creatinine Ratio 13, Glucose Level 123H, Calcium Level 9.0, Corrected Calcium 9.9, Phosphorus Level 2.4, Magnesium Level 1.9, Total Bilirubin 0.4, Aspartate Amino Transf (AST/SGOT) 17, Alanine Aminotransferase (ALT/SGPT) 12, Alkaline Phosphatase 55, Total Protein 6.5, Albumin 2.9L 05/26/21 11:35: Glucometer 168H 05/26/21 15:59: Glucometer 238H 05/26/21 20:53: Glucometer 182H 05/27/21 05:43: Glucometer 121H 05/27/21 05:44: White Blood Count 6.8, Red Blood Count 3.70L, Hemoglobin 10.5L, Hematocrit 36, Mean Corpuscular Volume 97, Mean Corpuscular Hemoglobin 28, Mean Corpuscular Hemoglobin Concent 29L, Red Cell Distribution Width 16.0H, Platelet Count 225, Mean Platelet Volume 10.8, Immature Granulocyte % (Auto) 0, Neutrophils (%) (Auto) 72, Lymphocytes (%) (Auto) 18, Monocytes (%) (Auto) 9, Eosinophils (%) (Auto) 1, Basophils (%) (Auto) 0, Neutrophils # (Auto) 4.9, Lymphocytes # (Auto) 1.2, Monocytes # (Auto) 0.6, Eosinophils # (Auto) 0.1, Basophils # (Auto) 0.0, Immature Granulocyte # (Auto) 0.0, Sodium Level 134L, Potassium Level 3.8, Chloride Level 98, Carbon Dioxide Level 25, Anion Gap 11, Blood Urea Nitrogen 16, Creatinine 1.28, Estimat Glomerular Filtration Rate 41, BUN/Creatinine Ratio 13, Glucose Level 118H, Calcium Level 9.1, Corrected Calcium 9.8, Total Bilirubin 0.5, Aspartate Amino Transf (AST/SGOT) 19, Alanine Aminotransferase (ALT/SGPT) 12, Alkaline Phosphatase 54, Total Protein 6.8, Albumin 3.1L 05/27/21 11:09: Glucometer 175H 05/27/21 15:22: Glucometer 248H 05/27/21 20:06: Glucometer 228H 05/28/21 05:20: White Blood Count 6.5, Red Blood Count 3.59L, Hemoglobin 10.4L, Hematocrit 33L, Mean Corpuscular Volume 91, Mean Corpuscular Hemoglobin 29, Mean Corpuscular Hemoglobin Concent 32, Red Cell Distribution Width 15.7H, Platelet Count 301, Mean Platelet Volume 9.6, Immature Granulocyte % (Auto) 1, Neutrophils (%) (Auto) 78H, Lymphocytes (%) (Auto) 13, Monocytes (%) (Auto) 8, Eosinophils (%) (Auto) 0, Basophils (%) (Auto) 0, Neutrophils # (Auto) 5.1, Lymphocytes # (Auto) 0.9L, Monocytes # (Auto) 0.6, Eosinophils # (Auto) 0.0, Basophils # (Auto) 0.0, Immature Granulocyte # (Auto) 0.0, Sodium Level 135, Potassium Level 3.7, Chloride Level 95L, Carbon Dioxide Level 29, Anion Gap 11, Blood Urea Nitrogen 21H, Creatinine 1.20, Estimat Glomerular Filtration Rate 45, BUN/Creatinine Ratio 18, Glucose Level 162H, Calcium Level 9.1, Corrected Calcium 9.7, Total Bilirubin 0.6, Aspartate Amino Transf (AST/SGOT) 15, Alanine Aminotransferase (ALT/SGPT) 13, Alkaline Phosphatase 59, Total Protein 6.7, Albumin 3.2 05/28/21 05:33: Glucometer 165H 05/28/21 10:07: Glucometer 200H Microbiology 05/24/21 C. difficile DNA Amplification - Final, Complete 05/24/21 C. difficile GDH Antigen & Toxins - Final, Complete 05/24/21 Stool Culture - Final, Complete See Comments 05/24/21 MRSA Screen - Final, Complete MRSA not isolated 05/23/21 Blood Culture - Preliminary, Resulted No growth VS - Last 72 Hours, by Label 05/25/21 05/25/21 05/25/21 05/25/21 18:00 19:00 19:00 20:00 Pulse 61 60 59 Resp 19 17 B/P (MAP) 175/95 (121) 135/72 (93) Pulse Ox 95 95 94 O2 Delivery Nasal Cannula Nasal Cannula Nasal Cannula O2 Flow Rate 5.00 5.00 5.00 05/25/21 05/25/21 05/25/21 05/25/21 20:32 20:54 21:00 22:00 Temp 36.5 Pulse 60 56 46 Resp 18 13 11 B/P (MAP) 122/61 (81) 188/73 (111) 180/84 (116) Pulse Ox 94 96 96 97 O2 Delivery Nasal Cannula Nasal Cannula Nasal Cannula Nasal Cannula O2 Flow Rate 5.00 5.00 5.00 5.00 05/25/21 05/26/21 05/26/21 05/26/21 23:00 00:00 00:00 00:00 Temp 35.9 Pulse 54 53 Resp 13 17 B/P (MAP) 186/93 (124) 173/75 (107) Pulse Ox 95 92 98 O2 Delivery Nasal Cannula Nasal Cannula Nasal Cannula O2 Flow Rate 5.00 3.00 5.00 05/26/21 05/26/21 05/26/21 05/26/21 01:00 01:00 02:00 03:00 Pulse 50 73 65 49 Resp 17 11 11 B/P (MAP) 141/70 (93) 128/42 (70) Pulse Ox 98 99 98 O2 Delivery Nasal Cannula Nasal Cannula Nasal Cannula O2 Flow Rate 5.00 5.00 5.00 05/26/21 05/26/21 05/26/21 05/26/21 04:00 04:00 04:00 05:00 Temp 35.6 Pulse 49 55 Resp 15 12 B/P (MAP) 148/85 (106) 178/65 (102) Pulse Ox 92 94 96 O2 Delivery Nasal Cannula Nasal Cannula Nasal Cannula Nasal Cannula O2 Flow Rate 3.00 5.00 3.00 3.00 05/26/21 05/26/21 05/26/21 05/26/21 06:00 07:00 07:00 07:23 Temp 36.0 Pulse 53 66 69 Resp 12 23 B/P (MAP) 171/79 (109) 141/95 (110) Pulse Ox 95 90 O2 Delivery Nasal Cannula Nasal Cannula O2 Flow Rate 3.00 3.00 05/26/21 05/26/21 05/26/21 05/26/21 08:00 08:37 09:00 09:41 Pulse 75 51 Resp 12 16 B/P (MAP) 163/84 (110) Pulse Ox 93 96 O2 Delivery Nasal Cannula Nasal Cannula Nasal Cannula NIV Bilevel O2 Flow Rate 3.00 3.00 3.00 3.00 05/26/21 05/26/21 05/26/21 05/26/21 10:00 11:00 11:17 11:18 Temp 36.2 Pulse 59 57 Resp 12 14 B/P (MAP) 154/71 (98) 159/99 (119) Pulse Ox 93 93 93 O2 Delivery Nasal Cannula Nasal Cannula Nasal Cannula O2 Flow Rate 3.00 3.00 3.00 05/26/21 05/26/21 05/26/21 05/26/21 12:00 15:34 18:00 19:10 Temp 36.3 36.3 36.6 Pulse 71 62 70 56 Resp 26 20 18 22 B/P (MAP) 146/82 (103) 145/73 (97) 167/90 (115) 191/72 (111) Pulse Ox 95 93 94 93 O2 Delivery Nasal Cannula Nasal Cannula Nasal Cannula Nasal Cannula O2 Flow Rate 3.00 3.00 3.00 3.00 05/26/21 05/26/21 05/26/21 05/26/21 19:36 19:40 20:40 23:33 Temp 36.0 Pulse 62 Resp 20 B/P (MAP) 184/79 (114) 163/72 (102) Pulse Ox 93 91 O2 Delivery Nasal Cannula Nasal Cannula Nasal Cannula O2 Flow Rate 3.00 3.00 3.00 05/27/21 05/27/21 05/27/21 05/27/21 04:01 08:00 08:05 09:00 Temp 36.1 36.4 Pulse 61 85 Resp 21 20 B/P (MAP) 143/83 (103) 125/71 (89) Pulse Ox 96 95 93 O2 Delivery Nasal Cannula Nasal Cannula Nasal Cannula Nasal Cannula O2 Flow Rate 3.00 3.00 3.00 3.00 05/27/21 05/27/21 05/27/21 05/27/21 12:00 15:46 19:16 19:30 Temp 36.6 35.5 36.0 Pulse 74 75 59 Resp 18 20 18 B/P (MAP) 149/89 (109) 189/91 (123) 170/74 (106) Pulse Ox 95 95 93 94 O2 Delivery High Flow N/C High Flow N/C Nasal Cannula Nasal Cannula O2 Flow Rate 3.00 3.00 3.00 3.00 10/05/27/21 05/28/21 05/28/21 21:00 23:51 04:00 04:37 Temp 36.4 36.0 36.0 Pulse 63 71 64 Resp 17 18 18 B/P (MAP) 161/87 (111) 194/91 (125) 175/77 (109) Pulse Ox 94 94 94 O2 Delivery Nasal Cannula Nasal Cannula Nasal Cannula Nasal Cannula O2 Flow Rate 3.00 3.00 3.00 3.00 05/28/21 05/28/21 05/28/21 05/28/21 07:36 08:09 09:00 15:53 Temp 36.1 36.1 Pulse 68 68 Resp 16 16 B/P (MAP) 152/75 (100) 152/75 Pulse Ox 96 93 93 O2 Delivery Nasal Cannula Nasal Cannula Nasal Cannula Nasal Cannula O2 Flow Rate 3.00 3.00 3.00 3.00 ANGELITA SCHULTZ DO 05/29/21 0610: Supervisory-Addendum Brief Verification & Attestation Participated in pt care: history, MDM, physical Personally performed: exam, history, MDM, supervision of care Care discussed with: Medical Student Procedures: n/a Results interpretation: Verified all documentation Verification and Attestation of Medical Student E/M Service A medical student performed and documented this service in my presence. I reviewed and verified all information documented by the medical student and made modifications to such information, when appropriate. I personally performed the physical exam and medical decision making. Angelita Schultz, May 29, 2021,06:10 HANSA SMITH May 28, 2021 14:39 ANGELITA SCHULTZ DO May 29, 2021 06:10
[2021-05-28 15:53] VITALS: BP 152/75
--- NOTE | 2021-05-28 16:08 | Physician Query Clarification ---
Physician Query-General Query to Physician: The medical record reflects the following clinical scenario: The patient, in the setting of History/Risk factors, COPD, Chronic Hypercapnia, HX smoking recently resumed, recent bout of pneumonia, Home 02 use at 3 to 4 L continuously Clinical Findings 02 sat dropped to 86% while on 4L (P/F=142), O2 up to 5 to 6L at times, RR up to 27 at times, Consistent nursing documentation of "Shortness of air at rest" Treatment Supplemental O2, Breathing RX, frequent respiratory assessments, Multiple IV ABX Question: Do you agree with the impression of acute on Chronic hypoxic respiratory failure per Tele ICU physician Claudia Sandhu? 1. Yes; will document Acute on Chronic Hypoxemic Respiratory Failure in the Progress Notes 2. No; will continue current documentation in the Progress Notes 3. Other; will document explanation of clinical findings 4. Clinically undetermined; no explanation for clinical findings Please clarify and document your clinical opinion in the Progress Notes and Discharge Summary including the definitive and/or presumptive diagnosis, (suspected or probable), related to the above clinical findings. Please include clinical findings supporting your diagnosis. In responding to this query, please exercise your independent professional judgment. The purpose of this communication is to more accurately reflect the complexity of your patients condition. The fact that a question is asked does not imply that any particular answer is desired or expected. Please remember a lack of response to the above will prompt a phone page by CDI/coding staff Thank you for timely response to this clarification. Ilda Maurer MSN,RN Clinical [employer] Certified Internetwork Expert [phone] [email or web address] PHYSICIAN RESPONSE: Based on the clinical findings in the record, please respond to the query above on this document as an addendum. Physician Response: Physician Response 1 If you have questions please contact: [employer]: Ext: Thank you for your time and cooperation. Clinical [employer] Certified Internetwork Expert/[employer] This is a permanent part of the medical [address] ILDA MAURER May 28, 2021 16:08 OKSANA SCHULTZ DO May 28, 2021 19:11
== END 2021-05-28 15:50 | disposition home health service (06) | DRG 371 ==
LOC: EDUNIT# 05:14 → ER 05:16 → 4TH 05:30 → ICU 05-24 19:46 → 4TH 05-26 17:55
PROVIDERS: ADMIT Family Medicine; ATTEND Internal Medicine
PROC: 5A09357 Assistance with Respiratory Ventilation, Less than 24 Consecutive Hours, Continuous Positive Airway Pressure (ICD-10-PCS; principal; 2021-05-26)
DX: A04.72 Enterocolitis due to Clostridium difficile, not specified as recurrent (principal); J96.21 Acute and chronic respiratory failure with hypoxia; J96.22 Acute and chronic respiratory failure with hypercapnia; J44.1 Chronic obstructive pulmonary disease with (acute) exacerbation; I48.21 Permanent atrial fibrillation; J98.11 Atelectasis; Z68.42 Body mass index [BMI] 45.0-49.9, adult; I12.9 Hypertensive chronic kidney disease with stage 1 through stage 4 chronic kidney disease, or unspecified chronic kidney disease; E11.22 Type 2 diabetes mellitus with diabetic chronic kidney disease; N18.30 Chronic kidney disease, stage 3 unspecified; E11.40 Type 2 diabetes mellitus with diabetic neuropathy, unspecified; I25.10 Atherosclerotic heart disease of native coronary artery without angina pectoris; Z89.611 Acquired absence of right leg above knee; K57.90 Diverticulosis of intestine, part unspecified, without perforation or abscess without bleeding; E78.00 Pure hypercholesterolemia, unspecified; E78.2 Mixed hyperlipidemia; E66.01 Morbid (severe) obesity due to excess calories; E03.9 Hypothyroidism, unspecified; F41.9 Anxiety disorder, unspecified; I49.5 Sick sinus syndrome; F17.210 Nicotine dependence, cigarettes, uncomplicated; Z79.4 Long term (current) use of insulin; Z79.01 Long term (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; Z90.5 Acquired absence of kidney; Z85.528 Personal history of other malignant neoplasm of kidney; Z88.8 Allergy status to other drugs, medicaments and biological substances; Z23 Encounter for immunization
CPT/HCPCS: 36415; 71045; 80053; 80061; 82150; 82274; 82805; 82947; 83605; 83690; 83735; 84100; 84145; 84484; 85025; 85610; 85730; 87015; 87040; 87045; 87046; 87081; 87324; 87449; 87493; 87899; 93005; 93041; 93306; 94640; 94760; 96374; 96375

== ENCOUNTER 2021-06-10 11:02 | Inpatient (IN) | payer MEDICARE, MEDICAID ==
[~2021-06-10] VITALS: Ht 162.6 cm; Wt 113.2 kg
[2021-06-10] VITALS (11 sets, daily range): BP systolic 136–173; BP diastolic 77–107
[~2021-06-10 11:02] MED LIST changes: +ALBU2.5V4 NEB; +AMLO-250 PO; +BISA5TAB8 PO; +CHOL200074 PO; +FLUT1AER12 IH; +LISI10TA25 PO; +MULT-1136 PO; +PRED10TA22 PO; +VANC125C5 PO; +VITA-189 PO
[2021-06-10] MEDS ORDERED: RT-ALBUTEROL SULF 2.5 MG/3 ML PRE-MIX VIAL INH STA ×3 (11:22→13:32)
[2021-06-10 11:31] LABS: BASOPHILS % (AUTO) 0 % (0-10); EOSINOPHILS # (AUTO) 0.2 10^3/uL (0.0-0.3); EOSINOPHILS % (AUTO) 2 % (0-10); HEMATOCRIT 40 % (35-52); HEMOGLOBIN 12.5 g/dL (11.5-16.0); LYMPHOCYTES # (AUTO) 1.1 10^3/uL (1.0-4.0); LYMPHOCYTES % (AUTO) 11 % (12-44); MEAN CORPUSCULAR HEMOGLOBIN 29 pg (25-34); MEAN CORPUSCULAR HGB CONC 31 g/dL (32-36); MEAN CORPUSCULAR VOLUME 95 fL (80-99); MEAN PLATELET VOLUME 8.9 fL (9.0-12.2); MONOCYTES # (AUTO) 0.5 10^3/uL (0.0-1.0); MONOCYTES % (AUTO) 5 % (0-12); NEUTROPHILS # (AUTO) 7.6 10^3/uL (1.8-7.8); NEUTROPHILS % (AUTO) 79 % (42-75); PLATELET COUNT 262 10^3/uL (130-400); WHITE BLOOD COUNT 9.6 10^3/uL (4.3-11.0)
--- NOTE | 2021-06-10 11:34 | ED General ---
General Chief Complaint: Respiratory Problems Stated Complaint: SOB Nursing Triage Note: PT TO RM 3 VIA [facility] W REPORTS OF FITCH, CHEST TIGHTNESS, AND SOA X2 DAYS. PT A&OX4. Source of Information: Patient Exam Limitations: No Limitations History of Present Illness Date Seen by Provider: Jun 10, 2021 Time Seen by Provider: 11:02 Initial Comments Here with report of increasing shortness of breath and migraine headache onset Thursday night or Thursday morning, 2 days ago. States that she occasionally gets migraines but has been several years since she had one. Denies fever or chills. Does report chest tightness and breathing problems. She has had enough difficulty breathing that she has not been able to smoke over the last 2 days. She has been using her albuterol nebulizers at home and those have not helped. 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 Denies nausea, vomiting or diarrhea. Overall states that she just feels weak and ill. She was in the hospital a few weeks ago for abdominal problems. She has had a few hospitalizations for that. She also has chronic COPD and is normally on oxygen at 3 L. She is requiring 10 L to keep O2 sats greater than 92%. She did receive DuoNeb treatment by EMS which did help some. She also took an albuterol treatment at home which helped briefly. She is morbidly obese. Has history of diabetes. States her blood sugars have been averaging around 250 recently. Chest pain is described as a tightness and is associated with breathing problems and wheezing. She has completed Covid vaccination series with last dose in January. Timing/Duration: 2-3 Days, Getting Worse Severity: Moderate Associated Systoms: Chest Pain, Cough; No Fever/Chills, No Nausea/Vomiting; Shortness of Air, Weakness Allergies and Home Medications Allergies Coded Allergies: diphenhydramine (Verified Allergy, Unknown, 05/13/20) Patient Home Medication List Home Medication List Reviewed: Yes Acetaminophen (Tylenol Extra Strength) 500 Mg Tablet, 1,000 MG PO Q6H PRN for PAIN-MILD (1-4), (Reported) Entered as Reported by: FAMILIA BLUE on 04/26/21 1014 Albuterol Sulfate (Ventolin Hfa) 18 Gm Hfa.aer.ad, 2 PUFF INH Q4H PRN for SHORTNESS OF BREATH, (Reported) Entered as Reported by: FAMILIA BLUE on 04/26/21 1014 Albuterol Sulfate (Albuterol Sulfate) 2.5 Mg/3 Ml Vial.neb, 3 ML NEB Q6H PRN for SHORTNESS OF BREATH, (Reported) Entered as Reported by: FAMILIA BLUE on 05/24/21 1114 Amlodipine Besylate (Amlodipine Besylate) 5 Mg Tablet, 5 MG PO DAILY Prescribed by: OKSANA SCHULTZ on 05/28/21 1053 Apixaban (Eliquis) 5 Mg Tablet, 5 MG PO BID, (Reported) Entered as Reported by: FAMILIA BLUE on 04/26/21 1014 Ascorbate Calcium (Vitamin C) 500 Mg Tablet, 500 MG PO DAILY, (Reported) Entered as Reported by: FAMILIA BLUE on 04/26/21 1014 Atorvastatin Calcium (Atorvastatin Calcium) 20 Mg Tablet, 20 MG PO HS, (Reported) Entered as Reported by: FAMILIA BLUE on 04/26/21 1014 Bisacodyl (Bisacodyl) 5 Mg Tablet.dr, 5 MG PO DAILY PRN for CONSTIPATION-4TH LINE, (Reported) Entered as Reported by: FAMILIA BLUE on 05/24/21 1114 Cholecalciferol (Vitamin D3) (Vitamin D3) 50 Mcg Capsule, 50 MCG PO DAILY, (Reported) Entered as Reported by: FAMILIA BLUE on 05/24/21 111 Fluticasone Propion/Salmeterol (Airduo Digihaler 232-14 Mcg) 1 Each Aer.pw.bas, 1 EACH IH BID PRN for SHORTNESS OF BREATH, (Reported) Entered as Reported by: FAMILIA BLUE on 05/24/21 1114 Gabapentin (Neurontin) 300 Mg Capsule, 300 MG PO HS, (Reported) Entered as Reported by: FAMILIA BLUE on 04/26/21 1014 Insulin Aspart (Novolog Flexpen) 300 Units/3 Ml Solution, 5 UNITS SC AC, (Reported) Entered as Reported by: FAMILIA BLUE on 04/26/21 1014 Insulin Detemir (Levemir Flextouch) 100 Unit/1 Ml Insuln.pen, 15 UNITS SC HS, (Reported) Entered as Reported by: FAMILIA BLUE on 04/26/21 1014 Levothyroxine Sodium (Levothyroxine Sodium) 100 Mcg Tablet, 100 MCG PO DAILY, (Reported) Entered as Reported by: FAMILIA BLUE on 04/26/21 1014 Lisinopril (Lisinopril) 10 Mg Tablet, 10 MG PO DAILY Prescribed by: OKSANA SCHULTZ on 05/28/21 1053 Magnesium Oxide (Magnesium) 400 Mg Tablet, 400 MG PO HS, (Reported) Entered as Reported by: FAMILIA BLUE on 04/26/21 1014 Melatonin (Melatonin) 5 Mg Tablet, 5 MG PO HS PRN for SLEEP, (Reported) Entered as Reported by: FAMILIA BLUE on 04/26/21 1014 Metoprolol Tartrate (Metoprolol Tartrate) 50 Mg Tablet, 50 MG PO BID, (Reported) Entered as Reported by: FAMILIA BLUE on 05/24/21 1114 Multivitamin (Multivitamin) 1 Each Tablet, 1 EACH PO DAILY, (Reported) Entered as Reported by: FAMILIA BLUE on 05/24/21 1114 Oxycodone HCl (Oxycodone HCl) 15 Mg Tablet, 15 MG PO Q4H PRN for PAIN-SEVERE (8- 10) Prescribed by: OKSANA SCHULTZ on 05/28/21 1054 Pantoprazole Sodium (Pantoprazole Sodium) 40 Mg Tablet.dr, 40 MG PO DAILY, (Reported) Entered as Reported by: FAMILIA BLUE on 05/24/21 1114 Polyethylene Glycol 3350 (Miralax) 17 Gm Powd.pack, 17 GM PO DAILY PRN for CONSTIPATION-2ND LINE, (Reported) Entered as Reported by: FAMILIA BLUE on 04/26/21 1014 Prednisone (Prednisone) 10 Mg Tab.ds.pk, 10 MG PO DAILY Prescribed by: OKSANA SCHULTZ on 05/28/21 1053 Semaglutide (Ozempic) 1 Mg/0.75 Ml Pen.injctr, 1 MG INJ SAT, (Reported) Entered as Reported by: FAMILIA BLUE on 04/26/21 1014 Sennosides (Senna Lax) 8.6 Mg Tablet, 8.6-17.2 MG PO BID PRN for CONSTIPATION- 5TH LINE, (Reported) Entered as Reported by: FAMILIA BLUE on 04/26/21 1014 Sitagliptin Phosphate (Januvia) 100 Mg Tablet, 100 MG PO DAILY, (Reported) Entered as Reported by: LORI LY on 05/23/21 1725 Vancomycin HCl (Vancomycin HCl) 125 Mg Capsule, 125 MG PO QID Prescribed by: OKSANA SCHULTZ on 05/28/21 1053 Vitamin B Complex (B Complex) 1 Each Tablet, 1 EACH PO DAILY, (Reported) Entered as Reported by: FAMILIA BLUE on 05/24/21 1114 Review of Systems Review of Systems Constitutional: see HPI; No fever; weakness EENTM: No nose congestion, No throat pain Respiratory: No cough; short of breath Cardiovascular: chest pain; No edema Gastrointestinal: No abdominal pain, No nausea, No vomiting Genitourinary: no symptoms reported Musculoskeletal: see HPI; No back pain, No muscle pain Skin: no symptoms reported All Other Systems Reviewed Negative Unless Noted: Yes Past Odentwn-Unuppj-Dpvzmu Hx Patient Social History Tobacco Use?: Yes Tobacco type used: Cigarettes Smoking Status: Current Everyday Smoker Use of E-Cig and/or Vaping dev: No Substance use?: No Alcohol Use?: No Immunizations Up To Date Tetanus Booster (TDap): Unknown First/Initial COVID19 Vaccinat: 01/28 Second COVID19 Vaccination Roscoe: 01/28 Third COVID19 Vaccination Date: 01/28 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 PAIN ) Amputee, Osteoporosis, Arthritis, Chronic Back Pain Endocrine: Yes (MORBID OBESITY) Hypothyroidsim, Diabetes, Non-Insulin dep HEENT: Yes Cataract Loss of Vision: Left Hearing Impairment: Hard of Hearing Cancer: Yes Kidney Did You Recieve Any Treatments: Yes What Type of Treatment Did You: Surgical Intervention Psychosocial: Yes Anxiety Integumentary: Yes ("SKIN PICKING" ; WOUND INFECTIONS) Blood Disorders: No Family Medical History Reviewed Nursing Family Hx Heart Disease, Cancer, CAD Under 55 Years Old, CVA, Diabetes Physical Exam-Suspected Sepsis Physical Exam Vital Signs Vital Signs - First Documented Capillary Refill : Less Than 3 Seconds Blood Pressure Mean: 115 Height, Weight, BMI Height: '64.00" Weight: 261lbs. oz. [id number]; 45.00 BMI Method: General Appearance: Mild Distress, Obese HEENT: PERRL/EOMI, Pharynx Normal Neck: Non Tender, Supple Respiratory: Crackles, Wheezing, Other (Coarse breath sounds. Limited exam due to morbid obesity) Cardiovascular: Regular Rate, Rhythm, No Murmur Gastrointestinal: Non Tender, Soft Back: Normal Inspection, No CVA Tenderness, No Vertebral Tenderness Extremity: No Calf Tenderness, No Pedal Edema, Other (Right AKA) Neurologic/Psychiatric: Alert, Oriented x3, No Motor/Sensory Deficits Skin: normal color, warm/dry Focused Exam Lactate Level 06/10/21 11:27: Lactic Acid Level 0.89 Lactic Acid Level Laboratory Tests Test 06/10/21 11:27 Lactic Acid Level 0.89 MMOL/L (0.50-2.00) Progress/Results/Core Measures Suspected Sepsis SIRS Temperature: Pulse: 94 Respiratory Rate: 20 Laboratory Tests 06/10/21 11:27: White Blood Count 9.6 Blood Pressure 167 /89 Mean: 115 06/10/21 11:27: Lactic Acid Level 0.89 Laboratory Tests 06/10/21 11:27: Creatinine 1.20, INR Comment 1.3, Platelet Count 262, Total Bilirubin 0.7 Results/Orders Lab Results Laboratory Tests Test 06/10/21 11:27 06/10/21 11:45 Range/Units White Blood Count 9.6 4.3-11.0 10^3/uL Red Blood Count 4.26 3.80-5.11 10^6/uL Hemoglobin 12.5 11.5-16.0 g/dL Hematocrit 40 35-52 % Mean Corpuscular Volume 95 80-99 fL Mean Corpuscular Hemoglobin 29 25-34 pg Mean Corpuscular Hemoglobin Concent 31 L 32-36 g/dL Red Cell Distribution Width 17.1 H 10.0-14.5 % Platelet Count 262 130-400 10^3/uL Mean Platelet Volume 8.9 L 9.0-12.2 fL Immature Granulocyte % (Auto) 2 % Neutrophils (%) (Auto) 79 H 42-75 % Lymphocytes (%) (Auto) 11 L 12-44 % Monocytes (%) (Auto) 5 0-12 % Eosinophils (%) (Auto) 2 0-10 % Basophils (%) (Auto) 0 0-10 % Neutrophils # (Auto) 7.6 1.8-7.8 10^3/uL Lymphocytes # (Auto) 1.1 1.0-4.0 10^3/uL Monocytes # (Auto) 0.5 0.0-1.0 10^3/uL Eosinophils # (Auto) 0.2 0.0-0.3 10^3/uL Basophils # (Auto) 0.0 0.0-0.1 10^3/uL Immature Granulocyte # (Auto) 0.2 H 0.0-0.1 10^3/uL Prothrombin Time 16.7 H 12.2-14.7 SEC INR Comment 1.3 0.8-1.4 Activated Partial Thromboplast Time 39 H 24-35 SEC Sodium Level 131 L 135-145 MMOL/L Potassium Level 5.4 H 3.6-5.0 MMOL/L Chloride Level 91 L 98-107 MMOL/L Carbon Dioxide Level 29 21-32 MMOL/L Anion Gap 11 5-14 MMOL/L Blood Urea Nitrogen 14 7-18 MG/DL Creatinine 1.20 0.60-1.30 MG/DL Estimat Glomerular Filtration Rate 45 BUN/Creatinine Ratio 12 Glucose Level 193 H 70-105 MG/DL Lactic Acid Level 0.89 0.50-2.00 MMOL/L Calcium Level 9.3 8.5-10.1 MG/DL Corrected Calcium 9.5 8.5-10.1 MG/DL Total Bilirubin 0.7 0.1-1.0 MG/DL Aspartate Amino Transf (AST/SGOT) 20 5-34 U/L Alanine Aminotransferase (ALT/SGPT) 15 0-55 U/L Alkaline Phosphatase 95 40-136 U/L Troponin I < 0.028 <0.028 NG/ML Total Protein 7.6 6.4-8.2 GM/DL Albumin 3.7 3.2-4.5 GM/DL Blood Gas Puncture Site RT RAD Blood Gas Patient Temperature 36.5 Arterial Blood pH 7.40 7.37-7.43 Arterial Blood Partial Pressure CO2 53 H 35-45 MMHG Arterial Blood Partial Pressure O2 72 L 79-93 MMHG Arterial Blood HCO3 32 H 23-27 MMOL/L Arterial Blood Total CO2 34.0 H 21.0-31.0 MMOL/L Arterial Blood Oxygen Saturation 96 94-100 % Arterial Blood Base Excess 7.4 H -2.5-2.5 MMOL/L Jerrell Test YES-POS Blood Gas Ventilator Setting NO Blood Gas Inspired Oxygen 10 L My Orders Orders - MARCIA MARCUS MD Cbc With Automated Diff (06/10/21 11:18) Comprehensive Metabolic Panel (06/10/21 11:18) Blood Culture (06/10/21 11:18) Sputum Culture (06/10/21 11:18) Protime With Inr (06/10/21 11:18) Partial Thromboplastin Time (06/10/21 11:18) Chest 1 View, Ap/Pa Only (06/10/21 11:18) Ed Iv/Invasive Line Start (06/10/21 11:18) Vital Signs Adult Sepsis Patie Q15M (06/10/21 11:18) O2 (06/10/21 11:18) Remove Rings In Anticipation O (06/10/21 11:18) Lactic Acid Analyzer (06/10/21 11:18) Arterial Blood Gas (06/10/21 11:18) Troponin I (06/10/21 11:22) Albuterol Pre-Mix Nebs (Rt) (Proventil (06/10/21 11:22) Svn Small Volume Nebulizer (06/10/21 11:22) Albuterol Pre-Mix Nebs (Rt) (Proventil (06/10/21 12:03) Svn Small Volume Nebulizer (06/10/21 12:03) Albuterol Pre-Mix Nebs (Rt) (Proventil (06/10/21 12:05) Arterial Blood Draw (06/10/21 11:45) Methylprednisolone Sod Succ (Solu-Medrol (06/10/21 13:04) Oxycodone Immediate Rel Tablet (Oxyir Ta (06/10/21 13:45) Albuterol Pre-Mix Nebs (Rt) (Proventil (06/10/21 13:32) Svn Small Volume Nebulizer (06/10/21 13:32) Cefepime Injection (Maxipime Injection) (06/10/21 13:45) Azithromycin Injection (Zithromax Inject (06/10/21 13:45) Vital Signs/I&O 06/10/21 06/10/21 06/10/21 06/10/21 11:07 11:07 11:07 11:50 Temp 36.5 Pulse 94 Resp 20 B/P (MAP) 167/89 (115) Pulse Ox 94 94 97 O2 Delivery Non Rebreather Non Rebreather Non Rebreather High Flow N/C O2 Flow Rate 12.00 12.00 12.00 10.00 06/10/21 06/10/21 06/10/21 11:57 12:02 12:11 Pulse Ox 96 94 93 O2 Delivery High Flow N/C High Flow N/C High Flow N/C O2 Flow Rate 6.00 4.00 4.00 Capillary Refill : Less Than 3 Seconds Blood Pressure Mean: 115 Progress Note : Progress Note Seen and evaluated. Sepsis protocol initiated just because of breathing difficulty. We will get EKG and troponin due to chest tightness although this seems to be related to breathing problems as well. Albuterol neb ordered. ABG ordered and supplemental oxygen again continued. We will make consideration for BiPAP versus Vapotherm depending on ABG results. Currently low to mid 90s on O2 sats with 10 L via mask. Monitor patient. 1334: Patient was doing much better. We had given her repeat nebs and she is sitting up and feels like she would like to go home. We actually talked and we were going to do that. I did discuss the case with Dr. Schultz and she is recommending admission for which I agree. I did discuss this with the patient again and she then states yes she will stay. Patient does have COPD exacerbation and I believe she will be highly likely to fail at home. There is also concern for pneumonia. She does have history of colitis which makes antibiotic choices difficult. Initially we have chosen Rocephin but we have switched to cefepime plus azithromycin and will continue oral vancomycin for colitis history. I did order Solu-Medrol 125 mg IV now as well as oxycodone 10 mg p.o. and cefepime 1 g IV with azithromycin 500 mg IV. Findings and concerns discussed with patient who agrees to plan. She has informed her family. Patient to be admitted inpatient status to medical unit. ECG Initial ECG Impression Date: Jun 10, 2021 Initial ECG Impression Time: 11:32 Initial ECG Rate: 98 Initial ECG Rhythm: A Fib/Flutter Comment Atrial fibrillation with rate of 98. Right axis deviation. No evidence of ST elevation HI. Similar to previous of 05/24/2021. Interpreted by me. Diagnostic Imaging Diagonstic Imaging: Xray Plain Films/CT/US/NM/MRI: chest Comments [facility] [place], [place] NAME: SHMUEL POSADAS [facility] REC#: [id number] PT STATUS: REG ER : 1950 PHYSICIAN: MARCIA MARCUS MD ADMIT DATE: 06/10/21/ER Draft Date of Exam:06/10/21 CHEST 1 VIEW, AP/PA ONLY HISTORY: Chest tightness and shortness of air COMPARISON: 05/28/2021 TECHNIQUE: Frontal view the chest FINDINGS: There is stable cardiomegaly. There are mild increased airspace opacities in the right lung base. There is persistent opacity in the left lung base. There may be a small left pleural effusion. There is no pneumothorax. IMPRESSION: 1. Bibasilar airspace opacities, mildly increased on the right, may represent atelectasis or infiltrate. Possible small left pleural effusion. Dictated on workstation # [id number] Dict: 06/10/21 1205 Trans: 06/10/21 1209 [facility] [id number] Interpreted by: SD BUENROSTRO MD Electronically signed by: Departure Communication (Admissions) Time/Spoke to Admitting Phy: 13:34 Impression Primary Impression: Right lower lobe pneumonia Qualified Codes: J18.9 - Pneumonia, unspecified organism Additional Impressions: COPD with acute exacerbation Hypoxia Disposition: ADMITTED INPATIENT Condition: Stable Admissions Decision to Admit Reason: Admit from ER (General) Decision to Admit/Date: Jun 10, 2021 Time/Decision to Admit Time: 13:34 Departure-Patient Inst. Referrals: [facility] [place] (PCP/Family) Primary Care Physician MARCIA MARCUS MD Jun 10, 2021 11:33
[2021-06-10 11:45] LABS: INR 1.3 (0.8-1.4); PROTHROMBIN TIME PATIENT 16.7 SEC (12.2-14.7)
[2021-06-10 11:51] LABS: ALANINE AMINOTRANSFERASE 15 U/L (0-55); ALBUMIN 3.7 GM/DL (3.2-4.5); ALKALINE PHOSPHATASE 95 U/L (40-136); BILIRUBIN,TOTAL 0.7 MG/DL (0.1-1.0); BUN/CREATININE RATIO 12; CALCIUM 9.3 MG/DL (8.5-10.1); CARBON DIOXIDE 29 MMOL/L (21-32); CHLORIDE 91 MMOL/L (98-107); GFR ESTIMATED 45; GLUCOSE 193 MG/DL (70-105); POTASSIUM 5.4 MMOL/L (3.6-5.0); SODIUM 131 MMOL/L (135-145); TOTAL PROTEIN 7.6 GM/DL (6.4-8.2)
[2021-06-10 11:52] LABS: ABG BASE EXCESS 7.4 MMOL/L (-2.5-2.5); ABG OXYGEN SATURATION 96 % (94-100); ABG PCO2 53 MMHG (35-45); ABG PO2 72 MMHG (79-93)
[2021-06-10 11:54] LABS: ALLENS TEST YES-POS; INSPIRED O2 10 L; PATIENT TEMP 36.5; VENTILATOR NO
[2021-06-10] MEDS ORDERED: RT-ALBUTEROL SULF 2.5 MG/3 ML PRE-MIX VIAL ONE (12:05)
--- NOTE | 2021-06-10 12:10 | Diagnostic Imaging Report ---
HISTORY: Chest tightness and shortness of air COMPARISON: 05/28/2021 TECHNIQUE: Frontal view the chest FINDINGS: There is stable cardiomegaly. There are mild increased airspace opacities in the right lung base. There is persistent opacity in the left lung base. There may be a small left pleural effusion. There is no pneumothorax. IMPRESSION: 1. Bibasilar airspace opacities, mildly increased on the right, may represent atelectasis or infiltrate. Possible small left pleural effusion. Dictated by: Dictated on workstation # [id number]
[2021-06-10] MEDS ORDERED: methylPREDNISolone 125 MG (Solu-MEDROL) VIAL IV STA (13:04)
[2021-06-10] MEDS ORDERED: cefTRIAXone 1,000 MG in WATER (STERILE) FOR INJECTION 10 ML IV STA (13:32)
[2021-06-10] MEDS ORDERED: AZITHROMYCIN INJECTION 500 MG in NS (IVPB) 250 ML IV ONE (13:45)
[2021-06-10] MEDS ORDERED: CEFEPIME INJECTION 1,000 MG in WATER (STERILE) FOR INJECTION 10 ML IV ONE (13:45)
[2021-06-10 14:22] LABS: BILIRUBIN,URINE NEGATIVE (NEGATIVE); CLARITY,URINE CLEAR; COLOR,URINE YELLOW; GLUCOSE, URINE (UA) NEGATIVE (NEGATIVE); KETONES,URINE NEGATIVE (NEGATIVE); LEUKOCYTE ESTERASE ,URINE 1+ (NEGATIVE); NITRITE,URINE NEGATIVE (NEGATIVE); PROTEIN,URINE 1+ (NEGATIVE)
[2021-06-10 14:31] LABS: BACTERIA,URINE LARGE /HPF
--- NOTE | 2021-06-10 14:44 | Consultation - Hospitalist ---
HPI History of Present Illness: HPI/Chief Complaint Shortness of breath and migraine since Thursday Source: patient Exam Limitations: no limitations Date Seen 06/10/21 Attending Physician [place] [place] Referring Physician Date of Admission Home Medications & Allergies Home Medications Reviewed patient Home Medication Reconciliation performed by pharmacy medication reconciliations wind tunnel technician and/or nursing. Patients Allergies have been reviewed. Allergies Allergies Coded Allergies diphenhydramine (Verified Allergy, Unknown, 05/13/20) Past Xsrrzyr-Krjrlg-Necjim Hx Patient Social History Tobacco Use?: Yes Tobacco type used: Cigarettes (.5 ppd) Smoking Status: Current Everyday Smoker Use of E-Cig and/or Vaping dev: No Substance use?: No Alcohol Use?: No Immunizations Up To Date First/Initial COVID19 Vaccinat: 01/28 Second COVID19 Vaccination Roscoe: 01/28 Tetanus Booster (TDap): Unknown Hepatitis A: Yes Hepatitis B: Yes Date of Pneumonia Vaccine: Mar 09, 2013 Seasonal Allergies Seasonal Allergies: Yes Current Status Advance Directives: No Communicates: Verbally Primary Language: Bahamian Preferred Spoken Language: Bahamian Is interpretation needed?: No Past Medical History Surgeries: Abdominal, Amputation, Appendectomy, Bladder Surgery, Bowel Surgery, Gallbladder, Hysterectomy, Nephrectomy, Orthopedic, Thyroidectomy Asthma, Pneumonia, Chronic Bronchitis, Sleep Apnea, COPD Atrial Fibrillation, Coronary Artery Disease, High Cholesterol, Hypertension Headaches /Migraines, 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 Sexually Transmitted Disease: No Renal Failure Abdominal Hernia, Gastroesophageal Reflux, Diverticulosis Amputee, Osteoporosis, Arthritis, Chronic Back Pain Hypothyroidsim, Diabetes, Non-Insulin dep Cataract Hearing Impairment: Hard of Hearing Kidney Did You Recieve Any Treatments: Yes What Type of Treatment Did You: Surgical Intervention Anxiety Blood Disorders: No PMHx: Renal cell carcinoma Diabetes Hypertension Hyperlipidemia Atrial fibrillation COPD SurgHx: Cholecystectomy Appendectomy Hysterectomy Bladder sling and later removal Thyroidectomy 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 Left nephrectomy Left knee replacement, later removal of joint hardware due to infection, non-weightbearing chronically Bronchoscopy 04/2021 for mucus plugging Family Medical History Reviewed Nursing Family Hx Heart Disease, Cancer, CAD Under 55 Years Old, CVA, Diabetes Review of Systems Constitutional: No chills, No diaphoresis, No dizziness, No fever EENTM: No hearing loss, No ear pain, No blurred vision, No vision loss, No hoarseness, No mouth pain, No throat swelling Respiratory: cough, dyspnea on exertion; No hemoptysis, No phlegm; short of breath, wheezing Cardiovascular: No chest pain; edema; No palpitations Gastrointestinal: RUQ, LUQ, RLQ, abdominal pain Genitourinary: No decreased output, No dysuria, No hematuria, No hesitancy : No Musculoskeletal: No back pain, No joint pain, No muscle pain; muscle weakness Skin: No change in color, No change in hair/nails, No dryness Psychiatric/Neurological: Anxiety, Headache; Denies Numbness, Denies Paresthesia, Denies Tingling, Denies Tremors; Weakness Physical Exam Physical Exam Vital Signs Vital Signs - First Documented Capillary Refill : Less Than 3 Seconds Height, Weight, BMI Height: '64.00" Weight: 261lbs. oz. 118.428601gi; 45.00 BMI Method: General Appearance: No Apparent Distress, WD/WN, Mild Distress, Obese Eyes: Bilateral Eye PERRL, Bilateral Eye EOMI HEENT: PERRL/EOMI, Pharynx Normal Neck: Full Range of Motion, Non Tender, Supple Respiratory: Crackles, Decreased Breath Sounds, Wheezing, Other (Coarse breath sounds. Limited exam due to morbid obesity) Cardiovascular: Regular Rate, Rhythm, No Murmur, Normal Peripheral Pulses Gastrointestinal: Soft Back: Normal Inspection, No CVA Tenderness, No Vertebral Tenderness Extremity: No Calf Tenderness, No Pedal Edema, Other (Right AKA) Neurologic/Psychiatric: Alert, Oriented x3, No Motor/Sensory Deficits Results Results/Procedures Labs Laboratory Tests 06/10/21 11:27 Patient resulted labs reviewed. DAVID PRICE Jun 10, 2021 14:44
--- NOTE | 2021-06-10 15:05 | History & Physical-Hospitalist ---
JACQUIEMARYDAVID CLAUDIO 06/10/21 1505: History of Present Illness HPI/Chief Complaint PT is a 70 yo F that presents in the ER with chief complaint of shortness of breath and migraine headache that began Thursday and gradually worsened prompting her to call EMS today. She has a hx of oxygen dependent COPD. A breathing treatment along with pain medication have helped to relieve her sx, while talking and moving seemed to make it worse. She is currently resting in bed on 4L O2 via nasal cannula and reports that her migraine has subsided. She complains of right lower abdominal pain that is only present when coughing and right upper as well as left upper quadrant abdominal pain with palpation. She denies any nausea, vomiting, vision changes, numbess, parathesias or changes in bowel habits. Source: patient Date Seen 06/10/21 Time Seen by a Provider: 14:03 Attending Physician [facility] Referring Physician Date of Admission Home Medications & Allergies Home Medications Reviewed patient Home Medication Reconciliation performed by pharmacy medication reconciliations computer engineering technician and/or nursing. Patients Allergies have been reviewed. Allergies Allergies Coded Allergies diphenhydramine (Verified Allergy, Unknown, 06/10/21) Past Pikggnu-Ubyzav-Ukznze Hx Patient Social History Tobacco Use?: Yes Tobacco type used: Cigarettes (.5 ppd) Smoking Status: Current Everyday Smoker Use of E-Cig and/or Vaping dev: No Substance use?: No Alcohol Use?: No Immunizations Up To Date First/Initial COVID19 Vaccinat: 01/28 Second COVID19 Vaccination Roscoe: 01/28 Tetanus Booster (TDap): Unknown Hepatitis A: Yes Hepatitis B: Yes Date of Pneumonia Vaccine: Mar 09, 2013 Seasonal Allergies Seasonal Allergies: Yes Current Status Advance Directives: No Communicates: Verbally Primary Language: Spanish Preferred Spoken Language: Spanish Is interpretation needed?: No Past Medical History Surgeries: Abdominal, Amputation, Appendectomy, Bladder Surgery, Bowel Surgery, Gallbladder, Hysterectomy, Nephrectomy, Orthopedic, Thyroidectomy Asthma, Pneumonia, Chronic Bronchitis, Sleep Apnea, COPD Atrial Fibrillation, Coronary Artery Disease, High Cholesterol, Hypertension Neuropathy 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 Sexually Transmitted Disease: No Renal Failure Abdominal Hernia, Gastroesophageal Reflux, Diverticulosis Amputee, Osteoporosis, Arthritis, Chronic Back Pain Hypothyroidsim, Diabetes, Non-Insulin dep Cataract Loss of Vision: Left Hearing Impairment: Hard of Hearing Kidney Did You Recieve Any Treatments: Yes What Type of Treatment Did You: Surgical Intervention Anxiety Blood Disorders: No PMHx: Renal cell carcinoma Diabetes Hypertension Hyperlipidemia Atrial fibrillation COPD SurgHx: Cholecystectomy Appendectomy Hysterectomy Bladder sling and later removal Thyroidectomy 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 Left nephrectomy Left knee replacement, later removal of joint hardware due to infection, non-weightbearing chronically Bronchoscopy 04/2021 for mucus plugging Family Medical History Reviewed Nursing Family Hx Heart Disease, Cancer, CAD Under 55 Years Old, CVA, Diabetes Review of Systems Constitutional: No chills, No diaphoresis, No dizziness, No fever; weakness EENTM: No blurred vision, No double vision, No eye pain, No dental problems, No mouth pain, No throat swelling Respiratory: cough, dyspnea on exertion; No hemoptysis, No phlegm; short of breath, wheezing Cardiovascular: No chest pain; edema; No palpitations Gastrointestinal: RUQ, LUQ, RLQ, abdominal pain; No constipation, No diarrhea, No dysphagia, No hematemesis, No nausea, No vomiting Genitourinary: No decreased output, No discharge, No dysuria, No frequency, No hematuria, No hesitancy Musculoskeletal: No back pain, No joint pain, No muscle pain, No muscle cramps; muscle weakness Skin: No change in color, No change in hair/nails, No dryness Psychiatric/Neurological: Anxiety, Headache; Denies Numbness, Denies Parest hesia, Denies Tingling, Denies Tremors; Weakness Physical Exam Physical Exam Vital Signs Vital Signs - First Documented Capillary Refill : Less Than 3 Seconds Height, Weight, BMI Height: '64.00" Weight: 261lbs. oz. [id number]; 45.00 BMI Method: General Appearance: No Apparent Distress, WD/WN, Chronically ill, Obese Eyes: Bilateral Eye PERRL, Bilateral Eye EOMI HEENT: PERRL/EOMI, Pharynx Normal Neck: Full Range of Motion, Non Tender, Supple Respiratory: Chest Non Tender, Accessory Muscle Use, Decreased Breath Sounds, Respiratory Distress, Wheezing Cardiovascular: Regular Rate, Rhythm, Normal Peripheral Pulses Gastrointestinal: No Organomegaly, No Pulsatile Mass, Soft Rectal: Deferred Back: No CVA Tenderness, No Vertebral Tenderness Extremity: Normal Capillary Refill, Normal Range of Motion, Non Tender, Pedal Edema Neurologic/Psychiatric: Alert, Oriented x3, Normal Mood/Affect Reflexes: 2+ Bicep (R), 2+ Bicep (L) Skin: Normal Color, Warm/Dry Lymphatic: No Adenopathy Results Results/Procedures Labs Laboratory Tests 06/10/21 11:27 06/11/21 04:45 Patient resulted labs reviewed. Assessment/Plan Admission Diagnosis COPD exacerbation Assessment and Plan COPD Exacerbation Migraine Cardiomegaly Plan: Supportive care to stabilize COPD and rule out infection/pneumonia or sepsis. SCHULTZDAVID ALMARAZRodolfo MICHAELS 06/12/21 0511: History of Present Illness HPI/Chief Complaint Chief complaint: Shortness of breath with headache History of present illness: This is a 70-year-old white female known to me from prior hospital stays who most recently had C. difficile colitis who presented to the ER with shortness of breath and headache and was found to have bilateral lower lobe infiltrates. She was originally admitted from [facility] but upon my a ssessment after admission she was in impending respiratory insufficiency with tachypnea so she was moved to ICU. ABG revealed mild hypercapnia but not requiring BiPAP and she was maintained on 5 L of oxygen nasal cannula. We will maintain vancomycin twice daily along with antibiotics to prevent recurrence of C. difficile. Past Jstafsu-Ektxcy-Pjjzza Hx Patient Social History Marrital Status: single Employed/Student: retired Tobacco Use?: Yes Tobacco type used: Cigarettes (.5 ppd) Past Medical History Sleep Apnea, COPD High Cholesterol, Hypertension Review of Systems Constitutional: see HPI, malaise EENTM: no symptoms reported Respiratory: dyspnea on exertion, short of breath Gastrointestinal: no symptoms reported Genitourinary: no symptoms reported Musculoskeletal: no symptoms reported Skin: no symptoms reported Psychiatric/Neurological: No Symptoms Reported All Other Systems Reviewed Negative Unless Noted: Yes Physical Exam Physical Exam General Appearance: Anxious, Chronically ill, Mild Distress, Obese Eyes: Right Eye Normal Inspection, Right Eye PERRL HEENT: PERRL/EOMI, Normal ENT Inspection, Pharynx Normal, Moist Mucous Membranes Neck: Full Range of Motion, Normal Inspection, Non Tender Respiratory: Chest Non Tender, No Respiratory Distress, Decreased Breath Sounds, Wheezing Cardiovascular: Regular Rate, Rhythm, No Edema, No Gallop, No JVD, No Murmur, Normal Peripheral Pulses Gastrointestinal: Normal Bowel Sounds, No Organomegaly, No Pulsatile Mass, Non Tender, Soft Back: Normal Inspection, No CVA Tenderness, No Vertebral Tenderness Extremity: Normal Capillary Refill, Normal Inspection, Normal Range of Motion, Non Tender, No Calf Tenderness, No Pedal Edema Neurologic/Psychiatric: Alert, Oriented x3, No Motor/Sensory Deficits, Normal Mood/Affect Skin: Normal Color, Warm/Dry Lymphatic: No Adenopathy Assessment/Plan Admission Diagnosis Assessment: Bilateral lower lobe pneumonia Exacerbation of COPD Recent C. difficile colitis Recent nephrectomy for renal cell carcinoma Smoker Morbid obesity BMI 45 Plan: ICU Aggressive treatment Oxygen supplementation Nebs IV steroids Admission Status: Inpatient Order (span 2 midnights) Reason for Inpatient Admission: Respiratory insufficiency with pneumonia Supervisory-Addendum Brief Verification & Attestation Participated in pt care: history, MDM, physical Personally performed: exam, history, MDM, supervision of care Care discussed with: Medical Student Procedures: n/a Results interpretation: Verified all documentation Verification and Attestation of Medical Student E/M Service A medical student performed and documented this service in my presence. I reviewed and verified all information documented by the medical student and made modifications to such information, when appropriate. I personally performed the physical exam and medical decision making. Angelita Schultz, Jun 12, 2021,05:11 DAVID PRICE Jun 10, 2021 15:05 ANGELITA SCHULTZ DO Jun 12, 2021 05:11
[2021-06-10] MEDS ORDERED: CATHETER FLUSH 10 ML SYR IV PRN (16:15)
[2021-06-10] MEDS ORDERED: RT-ALBUTEROL SULF 2.5 MG/3 ML PRE-MIX VIAL INH PRN (16:45)
[2021-06-10] MEDS ORDERED: diphenhydrAMINE 25 MG TAB (BENADRYL) PO PRN (18:45)
[2021-06-10] MEDS ORDERED: ALPRAZolam 0.25 MG (XANAX) TAB PO PRN (18:45)
[2021-06-10] MEDS ORDERED: CALCIUM CARBONATE 500 MG (TUMS) TAB.CHEW PO PRN (18:45)
[2021-06-10] MEDS ORDERED: ACETAMINOPHEN 500 MG TAB (TYLENOL) PO PRN (18:45)
[2021-06-10] MEDS ORDERED: DOCUSATE SODIUM 100 MG (COLACE) CAP PO PRN (18:45)
[2021-06-10] MEDS ORDERED: MELATONIN 3 MG TABLET PO PRN (18:45)
[2021-06-10] MEDS ORDERED: ACETAMINOPHEN 325 MG TABLET PO PRN (19:00)
[2021-06-10 19:11] LABS: ABG BASE EXCESS 5.8 MMOL/L (-2.5-2.5); ABG OXYGEN SATURATION 92 % (94-100); ABG PCO2 56 MMHG (35-45); ABG PH 7.36 (7.37-7.43); ABG PO2 69 MMHG (79-93); ABG TCO2 32.4 MMOL/L (21.0-31.0); ALLENS TEST YES-POS; INSPIRED O2 5L; VENTILATOR NO
[2021-06-10] MEDS: inSUlin ASPART (NovoLOG) 1 UNIT/0.01 ML (CHARGE PER UNIT) SC SCH (19:53)
[2021-06-10] MEDS: VANCOMYCIN 125 MG CAPSULE PO SCH (19:53)
[2021-06-10] MEDS: APIXABAN 5 MG (ELIQUIS) TABLET PO SCH (19:53)
[2021-06-10] MEDS: methylPREDNISolone 125 MG (Solu-MEDROL) VIAL IV SCH (19:54)
[2021-06-10] MEDS: CEFEPIME 1,000 MG/SWFI 10 ML IV PUSH IV SCH ×2 (19:54)
[2021-06-10] MEDS: CATHETER FLUSH 10 ML SYR IV SCH (19:55)
--- NOTE | 2021-06-10 22:31 | Tele-ICU Consult ---
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 Shortness of breath has been severe enough to prevent smoking over the past 2 days. Migraines relieved with treatment in ED. Dyspnea markedly improved after nebs, steroids. On arrival increased from baseline 3L to 10L to maintain saturations, now weaned to 5L. CXR with bibasilar airspace opacities in the right lung base, persistant opacity in the left lung base representing atelectasis or infiltrate. Rhonchorous on exam. - COPD exac: supportive care, nebs, steroids. - PNA: possible pna on exam. Empiric Rocephin and azithro already intiated. - DM: Insulin sliding scale ordered achs. Glucose has increased from 190 to 350, presumable secondary to steroids. Will do spot glucose check at 1am and provide additional coverage at that time. - migraine: resolved for now. - hyperkalemia: potassium of 5.4. Already received insulin, albuterol incidentally. Repeat labs in AM. Focused Exam Lactate Level 06/10/21 11:27: Lactic Acid Level 0.89 Height, Weight, BMI Height: '64.00" Weight: 261lbs. oz. 118.419674te; 45.31 BMI Method: FARZANA KAUFMAN MD Jun 10, 2021 22:31
[2021-06-10] MEDS ORDERED: BISACODYL 5 MG (DULCOLAX) TABLET PO PRN (22:45)
[2021-06-10] MEDS ORDERED: GABAPENTIN 300 MG (NEURONTIN) CAP PO SCH (22:45)
[2021-06-10] MEDS ORDERED: meTOprolol TARTRATE 50 MG (LOPRESSOR) TAB ONE (22:58)
[2021-06-10] MEDS: RT-ALBUTEROL SULF 2.5 MG/3 ML PRE-MIX VIAL INH SCH ×2 (23:02→23:03)
[2021-06-10] MEDS ORDERED: GABAPENTIN 300 MG (NEURONTIN) CAP ONE (23:02)
[2021-06-10] MEDS: meTOprolol TARTRATE 50 MG (LOPRESSOR) TAB PO SCH (23:10)
[2021-06-11] VITALS (20 sets, daily range): BP systolic 138–180; BP diastolic 72–102
[2021-06-11] MEDS ORDERED: MAGNESIUM OXIDE (MAG-OX)400 MG TAB PO ONE
[2021-06-11] MEDS ORDERED: LABETALOL HCL 20 MG/4 ML VIAL ONE (01:55)
[2021-06-11] MEDS: methylPREDNISolone 125 MG (Solu-MEDROL) VIAL IV SCH ×3 (01:58→16:15)
[2021-06-11] MEDS: CEFEPIME 1,000 MG/SWFI 10 ML IV PUSH IV SCH ×8 (01:59→20:21)
[2021-06-11] MEDS ORDERED: inSUlin ASPART (NovoLOG) 1 UNIT/0.01 ML (CHARGE PER UNIT) SC ONE (02:00)
[2021-06-11] MEDS ORDERED: LABETALOL HCL 20 MG/4 ML VIAL IV PRN ×2 (02:00→04:45)
[2021-06-11] MEDS: RT-ALBUTEROL SULF 2.5 MG/3 ML PRE-MIX VIAL INH SCH ×6 (02:52→22:31)
[2021-06-11] MEDS ORDERED: hydrALAZINE (APESOLINE) 20 MG/ML VIAL IV PRN (04:45)
[2021-06-11 04:57] LABS: BASOPHILS % (AUTO) 0 % (0-10); EOSINOPHILS % (AUTO) 0 % (0-10); HEMATOCRIT 38 % (35-52); HEMOGLOBIN 11.7 g/dL (11.5-16.0); LYMPHOCYTES # (AUTO) 0.6 10^3/uL (1.0-4.0); LYMPHOCYTES % (AUTO) 10 % (12-44); MEAN CORPUSCULAR HEMOGLOBIN 29 pg (25-34); MEAN CORPUSCULAR HGB CONC 31 g/dL (32-36); MEAN CORPUSCULAR VOLUME 93 fL (80-99); MEAN PLATELET VOLUME 9.1 fL (9.0-12.2); MONOCYTES # (AUTO) 0.1 10^3/uL (0.0-1.0); MONOCYTES % (AUTO) 1 % (0-12); NEUTROPHILS # (AUTO) 5.3 10^3/uL (1.8-7.8); NEUTROPHILS % (AUTO) 87 % (42-75); PLATELET COUNT 247 10^3/uL (130-400); WHITE BLOOD COUNT 6.1 10^3/uL (4.3-11.0)
[2021-06-11 05:14] LABS: ALBUMIN 3.5 GM/DL (3.2-4.5); BILIRUBIN,TOTAL 0.6 MG/DL (0.1-1.0); CALCIUM 9.1 MG/DL (8.5-10.1); CREATININE SERUM 1.24 MG/DL (0.60-1.30); MAGNESIUM 2.3 MG/DL (1.6-2.4); POTASSIUM 4.8 MMOL/L (3.6-5.0); TOTAL PROTEIN 7.4 GM/DL (6.4-8.2)
[2021-06-11] MEDS: CATHETER FLUSH 10 ML SYR IV SCH ×3 (05:24→20:23)
[2021-06-11] MEDS: inSUlin ASPART (NovoLOG) 1 UNIT/0.01 ML (CHARGE PER UNIT) SC SCH ×5 (05:24→20:23)
--- NOTE | 2021-06-11 05:54 | Diagnostic Imaging Report ---
CHEST 1 VIEW, AP/PA ONLY Indication: Pneumonia Comparison: 06/10/2021 Findings: Bibasilar ill-defined opacities have not substantially changed. Stable blunting of the left costophrenic angle. No pneumothorax. Stable enlargement of cardiac silhouette. Impression: 1. Persistent basilar pulmonary opacities that could be on the basis of multifocal pneumonia or atelectasis. 2. Trace left pleural effusion is unchanged. Dictated by: Dictated on workstation # [id number]
[2021-06-11] MEDS ORDERED: KCL 20 MEQ TAB (K-DUR) PO SCH (06:00)
[2021-06-11] MEDS ORDERED: MAGNESIUM 1 GM/100 ML IVPB 100 ML IV SCH (06:00)
[2021-06-11] MEDS ORDERED: POTASSIUM CL 10MEQ/50ML IVPB 50 ML IV SCH (06:00)
[2021-06-11] MEDS ORDERED: LEVOTHYROXINE 100 MCG (LEVOTHROID) TAB PO SCH (06:30)
[2021-06-11] MEDS ORDERED: PANTOPRAZOLE 40 MG (PROTONIX) TAB PO SCH (07:00)
[2021-06-11] MEDS ORDERED: RT--FLUTICASONE/SALMETEROL 232-14 (AIRDUO RespiCLICK) IH SCH (08:00)
[2021-06-11] MEDS: meTOprolol TARTRATE 50 MG (LOPRESSOR) TAB PO SCH (08:08)
[2021-06-11] MEDS: APIXABAN 5 MG (ELIQUIS) TABLET PO SCH ×2 (08:08→20:23)
[2021-06-11] MEDS: VANCOMYCIN 125 MG CAPSULE PO SCH ×2 (08:08→20:21)
--- NOTE | 2021-06-11 08:17 | Progress Note - Hospitalist ---
DAVID PRICE 06/11/21 0817: Subjective HPI/CC On Admission Date Seen by Provider: Jun 11, 2021 Time Seen by Provider: 08:11 PT is a 70 yo F that presents in the ER with chief complaint of shortness of breath and migraine headache that began Thursday and gradually worsened prompting her to call EMS today. She has a hx of oxygen dependent COPD. A breathing treatment along with pain medication have helped to relieve her sx, while talking and moving seemed to make it worse. She is currently resting in bed on 4L O2 via nasal cannula and reports that her migraine has subsided. She complains of right lower abdominal pain that is only present when coughing and right upper as well as left upper quadrant abdominal pain with palpation. She denies any nausea, vomiting, vision changes, numbess, parathesias or changes in bowel habits. Subjective/Events-last exam Pt resting comfortably in bed. She states that she is breathing easier and had just finished eating breakfast. She does note some abdominal pain on the left side which she feels should subside with a BM which she also feels will occur sometime this morning. She denies any nausea, vomiting, chills or dizziness. Review of Systems General: No Chills, No Night Sweats, No Fatigue, No Malaise; Appetite HEENT: No Head Aches, No Visual Changes, No Dysphasia, No Sore Throat Pulmonary: No Dyspnea; Cough; No Pleuritic Chest Pain Cardiovascular: No: Chest Pain, Palpitations, Lt Headedness Gastrointestinal: Abdominal Pain, Constipation; No: Nausea, Vomiting Musculoskeletal: No: neck pain, shoulder pain, arm pain, back pain, leg pain, foot pain Neurological: No: Weakness, Numbness, Incoordination, Change in speech, Confusion Focused Exam Lactate Level 06/10/21 11:27: Lactic Acid Level 0.89 Objective Exam Vital Signs Vital Signs Date Time Temp Pulse Resp B/P (MAP) Pulse Ox O2 Delivery O2 Flow Rate FiO2 06/11/21 11:21 35.9 06/11/21 10:27 65 13 161/80 (107) 98 High Flow N/C 4.00 Capillary Refill : Less Than 3 Seconds General Appearance: No Apparent Distress, WD/WN, Obese HEENT: PERRL/EOMI, Pharynx Normal Neck: Full Range of Motion, Non Tender, Supple Respiratory: Lungs Clear, No Accessory Muscle Use, No Respiratory Distress, Decreased Breath Sounds (- likely due to body habitus), Wheezing Cardiovascular: Regular Rate, Rhythm, No Gallop, No Murmur, Normal Peripheral Pulses Gastrointestinal: Normal Bowel Sounds, No Organomegaly, No Pulsatile Mass, Soft, Tenderness Rectal: Deferred Back: No CVA Tenderness, No Vertebral Tenderness Extremity: Normal Capillary Refill, Normal Range of Motion, Non Tender, No Calf Tenderness, Pedal Edema, Other ( - right aka) Neurologic/Psychiatric: Alert, Oriented x3, No Motor/Sensory Deficits, Normal 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 Assessment/Plan Assessment and Plan Assess & Plan/Chief Complaint COPD Exacerbation Migraine Cardiomegaly Plan: Supportive care to stabilize COPD and rule out infection/pneumonia or sepsis 06/11/2021 Supportive care and abx to treat mild basilar pneumonia ANGELITA SCHULTZ DO 06/12/21 0549: Subjective Subjective/Events-last exam Patient doing a lot better Less tachypneic but still currently at 20 respirations per minute Check meds and labs Moving down to fourth floor Review of Systems General: Fatigue, Malaise Pulmonary: Dyspnea Objective Exam General Appearance: No Apparent Distress, WD/WN, Chronically ill, Obese Respiratory: No Accessory Muscle Use, No Respiratory Distress, Decreased Breath Sounds (- likely due to body habitus), Wheezing Cardiovascular: Regular Rate, Rhythm Neurologic/Psychiatric: Alert Assessment/Plan Assessment and Plan Assess & Plan/Chief Complaint Transfer to fourth floor IV steroids Blood sugar management due to hyperglycemia from steroids Oxygen supplementation IV antibiotics Vanco 125 twice daily to prevent C. difficile Supervisory-Addendum Brief Verification & Attestation Participated in pt care: history, MDM, physical Personally performed: exam, history, MDM, supervision of care Care discussed with: Medical Student Procedures: n/a Results interpretation: Verified all documentation Verification and Attestation of Medical Student E/M Service A medical student performed and documented this service in my presence. I reviewed and verified all information documented by the medical student and made modifications to such information, when appropriate. I personally performed the physical exam and medical decision making. Angelita Schultz, Jun 12, 2021,05:48 DAVID PRICE Jun 11, 2021 08:17 ANGELITA SCHULTZ DO Jun 12, 2021 05:49
[2021-06-11] MEDS ORDERED: amLODIPine 5 MG (NORVASC) TAB PO SCH (09:00)
[2021-06-11] MEDS ORDERED: lisINopril 10 MG (PRINIVIL) TABLET PO SCH (09:00)
[2021-06-11] MEDS ORDERED: FUROSEMIDE 40 MG/4 ML INJ (LASIX) IVP ONE (09:15)
--- NOTE | 2021-06-11 09:25 | Tele-ICU Progress Note ---
Subjective Date Seen by a Provider: Jun 11, 2021 Time Seen by a Provider: 09:25 Sepsis Event Evaluation Height, Weight, BMI Height: '64.00" Weight: 261lbs. oz. 118.649955gs; 45.31 BMI Method: Focused Exam Lactate Level 06/10/21 11:27: Lactic Acid Level 0.89 Exam Exam Patient acknowledged, consented, and participated in this virtual visit which was conducted using real time audio/video Vital Signs Date Time Temp Pulse Resp B/P (MAP) Pulse Ox O2 Delivery O2 Flow Rate FiO2 06/11/21 07:57 70 21 179/90 (119) 93 High Flow N/C 4.00 06/11/21 07:56 36.6 06/11/21 07:50 68 06/11/21 06:57 73 13 162/79 (106) 95 High Flow N/C 4.00 06/11/21 06:51 97 Nasal Cannula 5.00 06/11/21 05:57 73 13 174/89 (117) 95 High Flow N/C 4.00 06/11/21 05:27 71 14 173/90 (117) 83 High Flow N/C 4.00 06/11/21 04:28 36.4 High Flow N/C 4.00 06/11/21 04:13 76 12 176/97 (123) 95 High Flow N/C 5.00 06/11/21 04:00 92 High Flow N/C 4.00 06/11/21 03:43 72 12 180/94 (122) 93 High Flow N/C 5.00 06/11/21 03:13 74 15 161/85 (110) 94 High Flow N/C 5.00 06/11/21 02:52 97 Nasal Cannula 5.00 06/11/21 02:43 75 13 167/77 (107) 94 High Flow N/C 5.00 06/11/21 02:04 87 13 169/102 (124) 96 High Flow N/C 5.00 06/11/21 02:00 84 14 157/89 (111) 94 High Flow N/C 5.00 06/11/21 01:04 85 15 180/102 (128) 94 High Flow N/C 5.00 06/11/21 01:00 96 06/11/21 00:22 95 High Flow N/C 5.00 06/11/21 00:04 93 12 160/78 (105) 94 High Flow N/C 5.00 06/10/21 23:11 36.5 High Flow N/C 5.00 06/10/21 23:04 105 15 168/83 (111) 95 High Flow N/C 6.00 06/10/21 23:03 97 Nasal Cannula 5.00 06/10/21 22:04 114 26 173/84 (113) 92 High Flow N/C 6.00 06/10/21 21:29 93 18 165/103 (123) 94 High Flow N/C 6.00 06/10/21 21:00 High Flow N/C 6.00 06/10/21 20:15 98 19 168/89 (119) 92 Nasal Cannula 5.00 06/10/21 20:00 92 High Flow N/C 5.00 06/10/21 20:00 93 23 165/100 (130) 90 Nasal Cannula 5.00 06/10/21 19:52 Nasal Cannula 5.00 06/10/21 19:50 36.7 06/10/21 19:45 102 21 154/95 (103) 92 Nasal Cannula 5.00 06/10/21 19:30 98 27 172/97 (122) 91 Nasal Cannula 5.00 06/10/21 19:15 95 16 163/77 (97) 93 Nasal Cannula 5.00 06/10/21 19:00 92 18 159/107 (124) 92 Nasal Cannula 5.00 06/10/21 19:00 94 06/10/21 18:51 37.0 Nasal Cannula 5.00 06/10/21 16:03 36.5 94 94 06/10/21 15:55 92 Nasal Cannula 5.00 06/10/21 15:33 36.9 106 23 136/80 (98) 90 High Flow N/C 5.00 06/10/21 15:15 113 22 180/98 92 Nasal Cannula 4.00 06/10/21 12:11 93 High Flow N/C 4.00 06/10/21 12:02 94 High Flow N/C 4.00 06/10/21 11:57 96 High Flow N/C 6.00 06/10/21 11:50 97 High Flow N/C 10.00 06/10/21 11:07 94 Non Rebreather 12.00 06/10/21 11:07 Non Rebreather 12.00 06/10/21 11:07 36.5 94 20 167/89 (115) 94 Non Rebreather 12.00 I & O 06/11/21 07:00 Intake Total 880 ml Output Total 2100 ml Balance -1220 ml Height & Weight Height: '64.00" Weight: 261lbs. oz. 118.559926ji; 45.31 BMI Method: General Appearance: No Apparent Distress, WD/WN, Chronically ill, Obese HEENT: PERRL/EOMI, Pharynx Normal Neck: Full Range of Motion, Non Tender, Supple Respiratory: Chest Non Tender, Accessory Muscle Use, Decreased Breath Sounds, Respiratory Distress, Wheezing Cardiovascular: Regular Rate, Rhythm, Normal Peripheral Pulses Capillary Refill: Less Than 3 Seconds Extremity: Normal Capillary Refill, Normal Range of Motion, Non Tender, Pedal Edema Neurologic/Psychiatric: Alert, Oriented x3, Normal Mood/Affect Skin: Normal Color, Warm/Dry Lymphatic: No Adenopathy Results Lab Laboratory Tests 06/10/21 11:27 06/11/21 04:45 Assessment/Plan Assessment/Plan (Tele-ICU Physician , Progress Note ) Available chart/ vitals / labs / Images reviewed Video assessment done using teleICU camera, rest of exam as per RN Discussed with RN , EXAM PER RN Events overnight : Afebrile I/O = + Drips: Pressors: , hemodynamically stable Consultants: Hospital course: 06/11 - AECOPD to ICU A/P Acute resp failure with AECOPD - minimal resp acidosis - cont steroids - decrese dose -nebs - one dose of lasix UTI - GNR - cont abx A fib rate controlled AC with eliquis DM - hyperglycemia ( on steroids ) - ISS levemir ECHO 04/30 EF 60% RVSP 40 mm Lines : (Central Line Necessity Reviewed) Marte: OG: Nutrition: PO Analgesia: Anxiety/ delirium VTE Prophylaxis: eliquis Stress Ulcer Prophylaxis: PPI Plans in collaboration with bedside consultants and IM MDs. Discussed with RN to reach out if any questions or concerns A total of 32 minutes of critical care time was devoted to this patient today, required to treat and/or prevent further deterioration of critical care condition ( as above) . PABLO GILLESPIE MD Jun 11, 2021 09:25
[2021-06-11] MEDS ORDERED: OXYC-525 PO (10:23)
[2021-06-11] MEDS ORDERED: AMLO-250 PO (10:23)
[2021-06-11] MEDS ORDERED: LISI10TA25 PO (10:23)
[2021-06-11] MEDS ORDERED: BISACODYL 5 MG (DULCOLAX) TABLET PO PRN (11:00)
[2021-06-11] MEDS ORDERED: NON-FORMULARY MEDICATION 1 EA EA (Semaglutide (Ozempic) 1 MG) INJ SCH (11:00)
[2021-06-11] MEDS ORDERED: SENNOSIDES 8.6 MG (SENOKOT) TAB PO PRN (11:00)
[2021-06-11] MEDS ORDERED: ACETAMINOPHEN 500 MG TAB (TYLENOL) PO PRN (11:00)
[2021-06-11] MEDS ORDERED: RT-ALBUTEROL SULF 2.5 MG/3 ML PRE-MIX VIAL IH PRN (11:00)
[2021-06-11] MEDS ORDERED: FUROSEMIDE 40 MG/4 ML INJ (LASIX) ONE (12:09)
[2021-06-11] MEDS ORDERED: MELATONIN 3 MG TABLET PO PRN (12:15)
[2021-06-11] MEDS ORDERED: RT-ALBUTEROL HFA 8.5 GM INHALER IH PRN (12:15)
[2021-06-11] MEDS ORDERED: RT--FLUTICASONE/SALMETEROL 232-14 (AIRDUO RespiCLICK) IH PRN (12:15)
--- NOTE | 2021-06-11 13:48 | Physical Therapy Evaluation ---
PT Evaluation-General Medical Diagnosis Admission Date Jun 10, 2021 at 13:46 Medical Diagnosis: pneumonia/COPD Onset Date: Jun 10, 2021 Therapy Diagnosis Therapy Diagnosis: generalized weakness/debility Height/Weight Height (Inches): 64.00 Weight (Pounds): 261 Precautions Precautions/Isolations: Fall Prevention, Standard Precautions Referral Physician: Mony Medical History Pertinent Medical History: Atrial Fib, COPD, DM, HTN, Neuropathy, Smoking Additional Medical History right AKA/morbid obesity Current History EMS secondary to FITCH, chest tightness, SOA (3L O2 NC at home continuous) Reviewed History: Yes Social History Home: Apartment Current Living Status: caregivers Entry Into Home: Level Entry Prior Prior Level of Function SCALE: Activities may be completed with or without assistive devices. 2-Wnxpwnmidi-fzizflk completes the activity by him/herself with no assistance from a helper. 5-Set-up or Clean-up Assistance-helper sets up or cleans up; patient completes activity. [place] assists only prior to or following the activity. 4-Supervision or Touching Assistance-helper provides verbal cues and/or touching/steadying and/or contact guard assistance as patient completes a ctivity. Assistance may be provided throughout the activity or intermittently. 3-Partial/Moderate Assistance-helper does LESS THAN HALF the effort. [place] lifts, holds or supports trunk or limbs, but provides less than half the effort. 2-Substantial/Maximal Assistance-helper does MORE THAN HALF the effort. [place] lifts or holds trunk or limbs and provides more than half the effort. 1-Alkfhkupy-arrydw does ALL the effort. Patient does none of the effort to complete the activity. Or, the assistance of 2 or more helpers is required for the patient to complete the activity. If activity was not attempted, code reason: 7-Patient Refused. 9-Not Applicable-not attempted and the patient did not perform the activity before the current illness, exacerbation or injury. 10-Not Attempted due to Environmental Limitations-(lack of equipment, weather restraints, etc.). 88-Not Attempted due to Medical Conditions or Safety Concerns. Bed Mobility: 2 Transfers (B,C,W/C): 1 (Monica Lift) Gait: 9 Stairs: 9 Wheelchair Mobility: 2 Indoor Mobility (Ambulation): Not [place] Stairs: Not [place] Prior Devices Use: Manual wheelchair, Mechanical lift Patient has been unable to care for self for over a year and requires caregivers (assist of 2) and use of Monica Lift for transfers PT Evaluation-Current Subjective Patient has noticeable SOA at rest with O2 HF NC 4-5L. Agrees to sit EOB. Pain Numeric Pain Scale: 8 Location: Lower Location Body Site: Abdomen Pain Description: Pressure Comment: issued pain medication per patient report Objective Patient Orientation: Normal For Age Attachments: Oxygen (HF NC 4-5L with SAO2 94% at rest) ROM/Strength ROM Lower Extremities right LE total amputation/left LE WFL Strength Lower Extremities left LE 3-/5 grossly all planes Integumentary/Posture Bladder Incontinence: Marte Cath Neuromuscular (Tone, Coordination, Reflexes) grossly intact Sensory Vision: Wears Glasses Hearing: Functional Sensation Left Lower Extremity: Impaired Transfers Roll Left to Right (QC): 2 Sit to Lying (QC): 2 Lying to Sitting/Side of Bed(Q: 2 Sit to Stand (QC): 9 Chair/Irg-ty-Cdzxk Xfer(QC): 88 patient sat EOB for 10 min and performed left LE exercises/upon returning to supine, bed placed in Trendelenberg for patient to perform bed mobility to reposition up in bed Gait Does the Patient Walk?: No and Walking Goal NOT indicated Balance Sitting Static: Normal Sitting Dynamic: Normal Treatment SAO2 decrease with activity with quick recovery/BP is elevated to 178/111 sitting EOB and 178/84 in supine after session Assessment/Needs 70 y.o. female, is dependent assiste, PLOF, with Monica Lift for all transfers and has been for several months. Patient has caregivers to perform ADL's and bed mobility/Monica transfers. Patient does appear heavier than previous admit with noted increase SOA with minimal activity and breathing sounding "wet". PT to address bed mobility (sit EOB) strengthening to promote increase independence. For OOB activity, patient will require a Monica Lift. Rehab Potential: Guarded PT Sled Maker Goals Sled Maker Goals PT Sled Maker Goals Time Frame: Jun 22, 2021 Roll Left & Right (QC): 3 Sit to Lying (QC): 3 Lying-Sitting on Side/Bed(QC): 3 Chair/Nau-ud-Tokxb Xfer(QC): 1 PT Plan Problem List Problem List: Activity Tolerance, Functional Strength, Transfer, Bed Mobility Treatment/Plan Treatment Plan: Continue Plan of Care Treatment Plan: Bed Mobility, Education, Functional Activity Yesenia, Functional Strength, Gait, Safety, Therapeutic Exercise, Transfers Treatment Duration: Jun 22, 2021 Frequency: 6 times per week Estimated Hrs Per Day: .25 hour per day Patient and/or Family Agrees t: Yes Time/GCodes Time In: 1318 Time Out: 1336 Total Billed Treatment Time: 18 Total Billed Treatment 1 visit [id number] min ENEDINA RYAN PT Jun 11, 2021 13:48
--- NOTE | 2021-06-11 13:56 | Occupational Therapy Eval ---
OT Evaluation-General/PLF Medical Diagnosis Admission Date Jun 10, 2021 at 13:46 Medical Diagnosis: Rt Pneumonia, COPD exacerbation Onset Date: Jun 10, 2021 Therapy Diagnosis Therapy Diagnosis: debility Height/Weight Height (Inches): 64.00 Weight (Pounds): 261 Precautions Precautions/Isolations: Fall Prevention, Standard Precautions Referral Physician: Mony Referral Reason: Evaluation/Treatment Medical History Pertinent Medical History: Atrial Fib, COPD, DM, HTN, Smoking Additional Medical History CAD, neuropathy, renal failure, arthritis, DM, hypothyroidism Current History ED due to SOB, migraine that gradually worsened ADL-Prior Level of Function SCALE: Activities may be completed with or without assistive devices. 2-Xdiwryteig-ncoihlw completes the activity by him/herself with no assistance from a helper. 5-Set-up or Clean-up Assistance-helper sets up or cleans up; patient completes activity. [place] assists only prior to or following the activity. 4-Supervision or Touching Assistance-helper provides verbal cues and/or touching/steadying and/or contact guard assistance as patient completes activity. Assistance may be provided throughout the activity or intermittently. 3-Partial/Moderate Assistance-helper does LESS THAN HALF the effort. [place] lifts, holds or supports trunk or limbs, but provides less than half the effort. 2-Substantial/Maximal Assistance-helper does MORE THAN HALF the effort. [place] lifts or holds trunk or limbs and provides more than half the effort. 4-[place]-edmfui does ALL the effort. Patient does none of the effort to complete the activity. Or, the assistance of 2 or more helpers is required for the patient to complete the activity. If activity was not attempted, code reason: 7-Patient Refused. 9-Not Applicable-not attempted and the patient did not perform the activity before the current illness, exacerbation or injury. 10-Not Attempted due to Environmental Limitations-(lack of equipment, weather restraints, etc.). 88-Not Attempted due to Medical Conditions or Safety Concerns. ADL PLOF Comments Pt requires assistance with all ADLs at PLOF, she uses a dina lift to transfer to/from manual w/c. Pt only completes sponge baths, able to bathe above the waist, with assistance below the waist. She requires set up assistance with meals and oral care. total assist with LE dressing/footwear Self Care: Needed Some Help Functional Cognition: Independent OT Current Status Subjective Pt in bed, PT just finishing with tx. Pt agreeable to OT eval Mental Status/Objective Patient Orientation: Person, Place, Situation Attachments: Marte Catheter, Oxygen Current Upper Extremity ROM WFL, BUE shoulder flexion to approx 150 degrees. Upper Extremity Coordination WFL Upper Extremity Strength WFL ADL-Treatment Eating (QC): 6 (Pt independent with lunch.) Oral Hygiene (QC): 5 (based on clincial judgment.) Toileting Hygiene (QC): 1 (catheter.) Other Treatments Pt in bed, agreeable to OT eval. Pt provided information about PLOF and par ticipated in UE screen. Pt had just completed bed mobility and sat EOB with PT, declines OOB activity at this time. Pt agreeable to UE exercises at bed level in order to increase BUE Strength and activity tolerance. Pt completed x10 reps each of the following BUE exercises: shoulder flexion, elbow flexion/extension, and front punch. Pt took rest breaks as needed, O2 saturation remained above 90% with exercises. Pt encouraged to complete exercises, increasing reps as tolerated, she verbalized understanding. Post tx, pt in bed, call light in reach and all needs met. 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 2=Patient will verbalize/demonstrate understanding of assistive devices/modifications for ADL. 3=Patient will improve strength/tolerance for activity to enable patient to perform ADL's. OT Education/Plan Problem List/Assessment Assessment: No Skilled OT Needs ID'd Pt is currently at PLOF, requiring assistance with all ADLs and utilizing dina lift for transfers, thus no skilled OT services indicated. Discharge Recommendations Plan/Recommendations: Discharge/Goals Met Treatment Plan/Plan of Care Patient would benefit from OT for education, treatment and training to promote independence in ADL's, mobility, safety and/or upper extremity function for ADL's. Plan of Care: ADL Retraining, Functional Mobility, UE Funct Exercise/Act Treatment Duration: Jun 11, 2021 Frequency: 1 time per week (eval only) Time/GCodes Start Time: 13:33 Stop Time: 13:47 Total Time Billed (hr/min): 14 Billed Treatment Time 1, PETRA HEARN OT Jun 11, 2021 13:56
[2021-06-11] MEDS: AZITHROMYCIN 500 MG/NS 250 ML IVPB IV SCH ×2 (14:38)
[2021-06-11] MEDS: GABAPENTIN 300 MG (NEURONTIN) CAP PO SCH (20:21)
[2021-06-11] MEDS: MAGNESIUM OXIDE (MAG-OX)400 MG TAB PO SCH (20:22)
[2021-06-11] MEDS: meTOprolol TARTRATE 25 MG (LOPRESSOR) TABLET PO SCH (20:22)
[2021-06-12] VITALS (8 sets, daily range): BP systolic 136–177; BP diastolic 65–90
[2021-06-12] MEDS: methylPREDNISolone 125 MG (Solu-MEDROL) VIAL IV SCH ×4 (00:11→23:25)
[2021-06-12] MEDS: CEFEPIME 1,000 MG/SWFI 10 ML IV PUSH IV SCH ×8 (00:12→20:17)
[2021-06-12] MEDS: RT-ALBUTEROL SULF 2.5 MG/3 ML PRE-MIX VIAL INH SCH ×6 (02:37→22:06)
[2021-06-12 06:22] LABS: BASOPHILS % (AUTO) 0 % (0-10); EOSINOPHILS % (AUTO) 0 % (0-10); HEMATOCRIT 37 % (35-52); HEMOGLOBIN 11.7 g/dL (11.5-16.0); LYMPHOCYTES # (AUTO) 0.7 10^3/uL (1.0-4.0); LYMPHOCYTES % (AUTO) 8 % (12-44); MEAN CORPUSCULAR HEMOGLOBIN 29 pg (25-34); MEAN CORPUSCULAR HGB CONC 32 g/dL (32-36); MEAN CORPUSCULAR VOLUME 92 fL (80-99); MEAN PLATELET VOLUME 9.5 fL (9.0-12.2); MONOCYTES # (AUTO) 0.3 10^3/uL (0.0-1.0); MONOCYTES % (AUTO) 3 % (0-12); NEUTROPHILS % (AUTO) 87 % (42-75); PLATELET COUNT 248 10^3/uL (130-400); WHITE BLOOD COUNT 9.2 10^3/uL (4.3-11.0)
[2021-06-12] MEDS: VITAMIN D3 25 MCG (1,000 UNITS) TABLET PO SCH (06:30)
[2021-06-12] MEDS: ASCORBIC ACID (VIT C) 500 MG TABLET PO SCH (06:30)
[2021-06-12] MEDS: MULTIVIT W/MINERALS TAB (THERAGRAN M) PO SCH (06:30)
[2021-06-12] MEDS: LEVOTHYROXINE 100 MCG (LEVOTHROID) TAB PO SCH (06:30)
[2021-06-12] MEDS: inSUlin ASPART (NovoLOG) 1 UNIT/0.01 ML (CHARGE PER UNIT) SC SCH ×7 (06:31→20:46)
[2021-06-12] MEDS: CATHETER FLUSH 10 ML SYR IV SCH ×3 (06:33→23:25)
[2021-06-12 06:37] LABS: ANISOCYTOSIS MODERATE; BAND NEUTROPHILS 3 %; LYMPHOCYTES % (MANUAL) 6 %; MONOCYTES % (MANUAL) 5 %; NEUTROPHILS % (MANUAL) 86 %
[2021-06-12 06:43] LABS: ALBUMIN 3.5 GM/DL (3.2-4.5); BILIRUBIN,TOTAL 0.5 MG/DL (0.1-1.0); CALCIUM 9.1 MG/DL (8.5-10.1); CREATININE SERUM 1.36 MG/DL (0.60-1.30); POTASSIUM 5.1 MMOL/L (3.6-5.0); TOTAL PROTEIN 7.7 GM/DL (6.4-8.2)
[2021-06-12] MEDS: APIXABAN 5 MG (ELIQUIS) TABLET PO SCH ×2 (08:49→20:18)
[2021-06-12] MEDS: amLODIPine 5 MG (NORVASC) TAB PO SCH (08:50)
[2021-06-12] MEDS: PANTOPRAZOLE 40 MG (PROTONIX) TAB PO SCH (08:50)
[2021-06-12] MEDS: meTOprolol TARTRATE 25 MG (LOPRESSOR) TABLET PO SCH ×2 (08:50→20:18)
[2021-06-12] MEDS: VANCOMYCIN 125 MG CAPSULE PO SCH ×2 (08:50→20:18)
[2021-06-12] MEDS: lisINopril 10 MG (PRINIVIL) TABLET PO SCH (08:50)
[2021-06-12] MEDS ORDERED: NON-FORMULARY MEDICATION 1 EA EA (Vitamin B Complex (B Complex) 1 EACH) PO SCH (09:00)
--- NOTE | 2021-06-12 12:22 | Progress Note - Hospitalist ---
ALBERT 06/12/21 1222: Subjective HPI/CC On Admission Date Seen by Provider: Jun 12, 2021 Time Seen by Provider: 08:03 Chief complaint: Shortness of breath with headache History of present illness: This is a 70-year-old white female known to me from prior hospital stays who most recently had C. difficile colitis who presented to the ER with shortness of breath and headache and was found to have bilateral lower lobe infiltrates. She was originally admitted from [facility] but upon my assessment after admission she was in impending respiratory insufficiency with tachypnea so she was moved to ICU. ABG revealed mild hypercapnia but not requiring BiPAP and she was maintained on 5 L of oxygen nasal cannula. We will maintain vancomycin twice daily along with antibiotics to prevent recurrence of C. difficile. Subjective/Events-last exam Pt resting in bed and in a very pleasant mood. She is consuming normal diet without issue and breathing much easier today. She reports that her previous abdominal pain resolved following a BM. She currently has a urinary catheter in place which will be removed later today. She will begin PT and OT today and is aminalble to going home once medicine has de Review of Systems General: No Chills, No Night Sweats, No Fatigue, No Malaise; Appetite HEENT: No Head Aches, No Visual Changes, No Eye Pain, No Ear Pain Pulmonary: No Dyspnea, No Cough, No Pleuritic Chest Pain Cardiovascular: No: Chest Pain, Palpitations, Lt Headedness Gastrointestinal: No: Nausea, Vomiting, Abdominal Pain, Diarrhea, Constipation Genitourinary: No Dysuria, No Hematuria Musculoskeletal: No: neck pain, shoulder pain, arm pain, back pain, leg pain, foot pain Neurological: No: Weakness, Numbness, Incoordination, Change in speech, Confusion Focused Exam Lactate Level 06/10/21 11:27: Lactic Acid Level 0.89 Objective Exam Vital Signs Vital Signs Date Time Temp Pulse Resp B/P (MAP) Pulse Ox O2 Delivery O2 Flow Rate FiO2 06/12/21 10:35 93 High Flow N/C 3.00 06/12/21 08:00 36.8 94 18 157/84 (108) Capillary Refill : Less Than 3 Seconds General Appearance: No Apparent Distress, WD/WN, Obese HEENT: PERRL/EOMI, Pharynx Normal Neck: Full Range of Motion, Non Tender, Supple Respiratory: Lungs Clear, Normal Breath Sounds, No Accessory Muscle Use, No Respiratory Distress Cardiovascular: Regular Rate, Rhythm, No Gallop, No Murmur, Normal Peripheral Pulses Gastrointestinal: Normal Bowel Sounds, No Organomegaly, No Pulsatile Mass, Non Tender, Soft Rectal: Deferred Back: No CVA Tenderness, No Vertebral Tenderness Extremity: Normal Capillary Refill, Normal Range of Motion, Non Tender, No Calf Tenderness, Other (R - aka) Neurologic/Psychiatric: Alert, Oriented x3, No Motor/Sensory Deficits, Normal 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 Assessment/Plan Assessment and Plan Assess & Plan/Chief Complaint COPD Exacerbation Migraine Cardiomegaly Plan: Supportive care to stabilize COPD and rule out infection/pneumonia or sepsis 06/11/2021 Supportive care and abx to treat mild basilar pneumonia 06/12/2021 Supportive care and abx to treat mild basilar pneumonia PT and OT Removal of urinary Cath. Plan for DC tomorrow if improved state continues ANGELITA SCHULTZ DO 06/13/21 0540: Subjective Subjective/Events-last exam Pt doing a lot better Will DC the catheter PT and OT will be ordered Improved overall 93% on 3 liters of O2 Labs look good Had a large BM no diarrhea She is a do not intubate Review of Systems General: Fatigue, Malaise Pulmonary: Dyspnea Objective Exam General Appearance: No Apparent Distress, WD/WN, Chronically ill, Obese Respiratory: Lungs Clear, Normal Breath Sounds Cardiovascular: Regular Rate, Rhythm Neurologic/Psychiatric: Alert, Oriented x3 Assessment/Plan Assessment and Plan Assess & Plan/Chief Complaint Discharge planned tomorrow Supportive care C. difficile prevention Supervisory-Addendum Brief Verification & Attestation Participated in pt care: history, MDM, physical Personally performed: exam, history, MDM, supervision of care Care discussed with: Medical Student Procedures: n/a Results interpretation: Verified all documentation Verification and Attestation of Medical Student E/M Service A medical student performed and documented this service in my presence. I reviewed and verified all information documented by the medical student and made modifications to such information, when appropriate. I personally performed the physical exam and medical decision making. Angelita Schultz, Jun 13, 2021,05:39 DAVID PRICE Jun 12, 2021 12:22 ANGELITA SCHULTZ DO Jun 13, 2021 05:40
[2021-06-12] MEDS: AZITHROMYCIN 500 MG/NS 250 ML IVPB IV SCH ×2 (13:46)
--- NOTE | 2021-06-12 14:40 | Physical Therapy Daily Note ---
PT Daily Note-Current Subjective Patient in bed pre tx, agrees to PT, has no complaints of pain. Appearance Patient in bed post tx with nurse call, phone, tray, all needs met. Mental Status Patient Orientation: Person, Place, Situation Attachments: Oxygen, IV Transfers SCALE: Activities may be completed with or without assistive devices. 8-Knjkvvfqxt-kgaqvfb completes the activity by him/herself with no assistance from a helper. 5-Set-up or Clean-up Assistance-helper sets up or cleans up; patient completes activity. [place] assists only prior to or following the activity. 4-Supervision or Touching Assistance-helper provides verbal cues and/or touching/steadying and/or contact guard assistance as patient completes activity. Assistance may be provided throughout the activity or intermittently. 3-Partial/Moderate Assistance-helper does LESS THAN HALF the effort. [place] lifts, holds or supports trunk or limbs, but provides less than half the effort. 2-Substantial/Maximal Assistance-helper does MORE THAN HALF the effort. [place] lifts or holds trunk or limbs and provides more than half the effort. 3-Fpemadvcf-qmmnwc does ALL the effort. Patient does none of the effort to complete the activity. Or, the assistance of 2 or more helpers is required for the patient to complete the activity. If activity was not attempted, code reason: 7-Patient Refused. 9-Not Applicable-not attempted and the patient did not perform the activity before the current illness, exacerbation or injury. 10-Not Attempted due to Environmental Limitations-(lack of equipment, weather restraints, etc.). 88-Not Attempted due to Medical Conditions or Safety Concerns. Roll Left & Right (QC): 6 Sit to Lying (QC): 4 Lying to Sitting/Side of Bed(Q: 3 mod assist for supine to sit, SBA for sit to supine, needs assist scooting up. Exercises Seated Therapy Exercises: Ankle pumps, Long arc quads, Hip flexion Seated Reps: 20 (LLE) seated bicep curls, shoulder flexion, shoulder abduction all x20 Treatments bed mobility, supine <-> sit, LE and UE strengthening Assessment Current Status: Fair Progress improved supine <-> sit, patient needed several rest breaks due to fatigue and SOB PT Service Tech/Welder Goals Service Tech/Welder Goals PT Intermediate Goals Time Frame: Jun 22, 2021 Roll Left & Right (QC): 3 Sit to Lying (QC): 3 Lying-Sitting on Side/Bed(QC): 3 Chair/Dop-ga-Kdvvy Xfer(QC): 1 PT Plan Problem List Problem List: Activity Tolerance, Functional Strength, Safety, Balance, Gait, Transfer, Bed Mobility, ROM Treatment/Plan Treatment Plan: Continue Plan of Care Treatment Plan: Bed Mobility, Education, Functional Activity Yesenia, Functional Strength, Gait, Safety, Therapeutic Exercise, Transfers Treatment Duration: Jun 22, 2021 Frequency: 6 times per week Estimated Hrs Per Day: .25 hour per day Patient and/or Family Agrees t: Yes Safety Risks/Education Patient Education: Correct Positioning, Safety Issues Teaching Recipient: Patient Teaching Methods: Demonstration, Discussion Response to Teaching: Reinforcement Needed Time/GCodes Time In: 1424 Time Out: 1434 Total Billed Treatment Time: 10 Total Billed Treatment 1 visit EX ESTUARDO CAPPS PT Jun 12, 2021 14:40
--- NOTE | 2021-06-12 16:11 | Physician Query Clarification ---
Physician Query-General Query to Physician: The medical record reflects the following clinical scenario: The patient, in the setting of History/Risk factors, Smoker, COPD, Pneumonia, Home 02 continuously at 3-4L, Morbid obesity Clinical Findings Admission RR 20 increase to 26-27, O2 sat 94% on 12L non rebreather (P/F=91), later was 90 % on 5L (P/F 150), SOA at Rest on admission and pursed lip breathing per nursing, Treatment Supplemental 02 up to 12L, IV ABX, IV Steroids, Proventil, AirDuo, Question: Do you agree with the impression of Acute Respiratory failure per Dr. Tonya Murillo? 1. Yes; will document Acute (on chronic) Respiratory Failure in the Progress Notes 2. No; will continue current documentation in the Progress Notes 3. Other; will document explanation of clinical findings 4. Clinically undetermined; no explanation for clinical findings Please clarify and document your clinical opinion in the Progress Notes and Discharge Summary including the definitive and/or presumptive diagnosis, (suspected or probable), related to the above clinical findings. Please include clinical findings supporting your diagnosis. In responding to this query, please exercise your independent professional judgment. The purpose of this communication is to more accurately reflect the complexity of your patients condition. The fact that a question is asked does not imply that any particular answer is desired or expected. Please remember a lack of response to the above will prompt a phone page by CDI/coding staff Thank you for timely response to this clarification. Ilda Maurer MSN, RN Clinical Human Intelligence [phone] [email or web address] PHYSICIAN RESPONSE: Based on the clinical findings in the record, please respond to the query above on this document as an addendum. Physician Response: Physician Response 1 If you have questions please contact: Utility Inspector: Ext: Thank you for your time and cooperation. Clinical Human Intelligence/Utility Inspector This is a permanent part of the medical record ILDA MAURER Jun 12, 2021 16:11 OKSANA SCHULTZ DO Jun 13, 2021 05:13
[2021-06-12] MEDS: MAGNESIUM OXIDE (MAG-OX)400 MG TAB PO SCH (20:18)
[2021-06-12] MEDS: GABAPENTIN 300 MG (NEURONTIN) CAP PO SCH (20:18)
[2021-06-12] MEDS: RT--FLUTICASONE/SALMETEROL 232-14 (AIRDUO RespiCLICK) IH SCH (22:06)
[2021-06-13] MEDS: RT-ALBUTEROL SULF 2.5 MG/3 ML PRE-MIX VIAL INH SCH ×3 (02:35→10:56)
[2021-06-13] MEDS: CEFEPIME 1,000 MG/SWFI 10 ML IV PUSH IV SCH ×4 (03:27→08:12)
[2021-06-13] MEDS: CATHETER FLUSH 10 ML SYR IV SCH (03:27)
[2021-06-13 03:38] VITALS: BP 152/82
[2021-06-13 06:26] LABS: BASOPHILS % (AUTO) 0 % (0-10); EOSINOPHILS % (AUTO) 0 % (0-10); HEMATOCRIT 37 % (35-52); HEMOGLOBIN 11.4 g/dL (11.5-16.0); LYMPHOCYTES # (AUTO) 0.6 10^3/uL (1.0-4.0); LYMPHOCYTES % (AUTO) 8 % (12-44); MEAN CORPUSCULAR HEMOGLOBIN 29 pg (25-34); MEAN CORPUSCULAR HGB CONC 31 g/dL (32-36); MEAN CORPUSCULAR VOLUME 92 fL (80-99); MEAN PLATELET VOLUME 9.7 fL (9.0-12.2); MONOCYTES # (AUTO) 0.1 10^3/uL (0.0-1.0); MONOCYTES % (AUTO) 2 % (0-12); NEUTROPHILS # (AUTO) 6.3 10^3/uL (1.8-7.8); NEUTROPHILS % (AUTO) 89 % (42-75); PLATELET COUNT 259 10^3/uL (130-400); WHITE BLOOD COUNT 7.1 10^3/uL (4.3-11.0)
[2021-06-13] MEDS: inSUlin ASPART (NovoLOG) 1 UNIT/0.01 ML (CHARGE PER UNIT) SC SCH ×4 (06:46→11:11)
[2021-06-13] MEDS: VITAMIN D3 25 MCG (1,000 UNITS) TABLET PO SCH (06:46)
[2021-06-13] MEDS: ASCORBIC ACID (VIT C) 500 MG TABLET PO SCH (06:46)
[2021-06-13] MEDS: MULTIVIT W/MINERALS TAB (THERAGRAN M) PO SCH (06:46)
[2021-06-13] MEDS: LEVOTHYROXINE 100 MCG (LEVOTHROID) TAB PO SCH (06:46)
[2021-06-13 06:51] LABS: ALBUMIN 3.8 GM/DL (3.2-4.5); BILIRUBIN,TOTAL 0.5 MG/DL (0.1-1.0); CALCIUM 9.5 MG/DL (8.5-10.1); CREATININE SERUM 1.39 MG/DL (0.60-1.30); POTASSIUM 5.3 MMOL/L (3.6-5.0); TOTAL PROTEIN 7.7 GM/DL (6.4-8.2)
[2021-06-13 07:59] VITALS: BP 133/68
[2021-06-13] MEDS: PANTOPRAZOLE 40 MG (PROTONIX) TAB PO SCH (08:12)
[2021-06-13] MEDS: APIXABAN 5 MG (ELIQUIS) TABLET PO SCH (08:12)
[2021-06-13] MEDS: meTOprolol TARTRATE 25 MG (LOPRESSOR) TABLET PO SCH (08:12)
[2021-06-13] MEDS: lisINopril 10 MG (PRINIVIL) TABLET PO SCH (08:12)
[2021-06-13] MEDS: amLODIPine 5 MG (NORVASC) TAB PO SCH (08:12)
[2021-06-13] MEDS: VANCOMYCIN 125 MG CAPSULE PO SCH (08:12)
[2021-06-13] MEDS: methylPREDNISolone 125 MG (Solu-MEDROL) VIAL IV SCH (08:13)
--- NOTE | 2021-06-13 10:27 | Physical Therapy Daily Note ---
PT Daily Note-Current Subjective Patient reports she is feeling better today and agrees to PT. Mental Status Patient Orientation: Normal For Age Attachments: Oxygen Transfers SCALE: Activities may be completed with or without assistive devices. 6-Lbbnersrxd-jtiakvc completes the activity by him/herself with no assistance from a helper. 5-Set-up or Clean-up Assistance-helper sets up or cleans up; patient completes activity. [place] assists only prior to or following the activity. 4-Supervision or Touching Assistance-helper provides verbal cues and/or touching/steadying and/or contact guard assistance as patient completes activity. Assistance may be provided throughout the activity or intermittently. 3-Partial/Moderate Assistance-helper does LESS THAN HALF the effort. [place] lifts, holds or supports trunk or limbs, but provides less than half the effort. 2-Substantial/Maximal Assistance-helper does MORE THAN HALF the effort. [place] lifts or holds trunk or limbs and provides more than half the effort. 3-Stgpmeaiv-cnygyd does ALL the effort. Patient does none of the effort to complete the activity. Or, the assistance of 2 or more helpers is required for the patient to complete the activity. If activity was not attempted, code reason: 7-Patient Refused. 9-Not Applicable-not attempted and the patient did not perform the activity before the current illness, exacerbation or injury. 10-Not Attempted due to Environmental Limitations-(lack of equipment, weather restraints, etc.). 88-Not Attempted due to Medical Conditions or Safety Concerns. Roll Left & Right (QC): 6 Sit to Lying (QC): 6 Lying to Sitting/Side of Bed(Q: [address] in Trendelenberg to allow patient to use gravity to reposition up in bed. Exercises Supine Ex: Ankle pumps, Quad Set, Heel Slides, Straight leg raise Supine Reps: 12 Seated Therapy Exercises: Long arc quads Seated Reps: 20 (3 sets while sittine EOB) Assessment Patient tolerated treatment well and per patient, she hopes to go home today. PT [facility] Goals [facility] Goals PT [facility] Goals Time Frame: Jun 22, 2021 Roll Left & Right (QC): 3 Sit to Lying (QC): 3 Lying-Sitting on Side/Bed(QC): 3 Chair/Osf-mg-Otkxi Xfer(QC): 1 PT Plan Treatment/Plan Treatment Plan: Continue Plan of Care Treatment Plan: Bed Mobility, Education, Functional Activity Yesenia, Functional Strength, Gait, Safety, Therapeutic Exercise, Transfers Treatment Duration: Jun 22, 2021 Frequency: 6 times per week Estimated Hrs Per Day: .25 hour per day Patient and/or Family Agrees t: Yes Time/GCodes Time In: 940 Time Out: 958 Total Billed Treatment Time: 18 Total Billed Treatment 1 visit EX 18 min ENEDINA RYAN PT Jun 13, 2021 10:27
[2021-06-13] MEDS: RT--FLUTICASONE/SALMETEROL 232-14 (AIRDUO RespiCLICK) IH SCH (10:56)
[2021-06-13 11:42] VITALS: BP 160/78
[2021-06-13] MEDS ORDERED: CEFD300C3 PO (12:32)
[2021-06-13] MEDS ORDERED: VANC125C5 PO (12:32)
[2021-06-13] MEDS ORDERED: PRED10TA22 PO (12:32)
--- NOTE | 2021-06-13 12:33 | D/C HH Face to Face Order ---
D/C Face to Face Orders Reconcile Patient Problems Problems Reviewed?: Yes Instructions for Patient Via [facility], Patient Instructions/FollowUp: PCP 1 week Physician to follow Patient: PCP Discharge Diet for Home: ADA Diet Patient Problems: PNA Patient Data-Allergies,Ht & Wt Patient Allergies: Coded Allergies: diphenhydramine (Verified Allergy, Unknown, 06/10/21) Height (Inches): 64.00 Weight (Pounds): 261 Home Health Need/Face to Face Date of Face to Face: Jun 13, 2021 Clinical Findings: Generalized weakness and fatigue, Instability, Muscle weakness, Unsteady gait I have seen Pt [id number]: Yes Discharged To: Home Diagnosis/Conditions: PNA Patient is Homebound due to: Muscle weakness, Shortness of breath/distress Homebound Status Due to the above stated illness, injury or surgical procedure (medical condit ion or diagnosis) and associated clinical findings, the patient is homebound because of his/her inability to leave home except with aid of a supportive device and/or person AND leaving the home requires a considerable and taxing effort or is medically contraindicated. Pt req the following assistanc: [facility] Nursing Orders Home Health Services Order: Nursing Services, Chief Safety Officer-Evaluate & Treat, Physical Therapy-Evaluate & Treat Home Health Infusion Therapy Line Start Date: Jun 10, 2021 Certify Stmt I certify that this patient is under my care and that I, a nurse practitioner or a physician; a specimen preparation assistant working with me, had a face to face encounter that - meets the physician face to face encounter requirements with this patient as dated. OKSANA SCHULTZ DO Jun 13, 2021 12:33
--- NOTE | 2021-06-13 12:34 | Discharge Summary ---
Discharge Summary Hospital Course Was the Problem List Reviewed?: Yes Problems/Dx: (1) Right lower lobe pneumonia Status: Acute Qualifiers: Qualified Codes: J18.9 - Pneumonia, unspecified organism (2) Hypoxia Status: Acute (3) COPD with acute exacerbation Status: Acute (4) Diabetes Status: Chronic Hospital Course Pneumonia, date of Admission: Jun 10, 2021 at 13:46 Admission Diagnosis : Family Physician/Provider: [place]/Counts Include [facility] Date of Discharge: 06/13/21 Discharge Diagnosis: Pneumonia, recent C. difficile colitis, atrial fibrillation, exacerbation of COPD, recent nephrectomy due to renal cell c arcinoma, DO NOT INTUBATE Hospital Course: Chief complaint: Shortness of breath with headache History of present illness: This is a 70-year-old white female known to me from prior hospital stays who most recently had C. difficile colitis who presented to the ER with shortness of breath and headache and was found to have bilateral lower lobe infiltrates. She was originally admitted from [facility] but upon my assessment after admission she was in impending respiratory insufficiency with tachypnea so she was moved to ICU. ABG revealed mild hypercapnia but not requiring BiPAP and she was maintained on 5 L of oxygen nasal cannula. We will maintain vancomycin twice daily along with antibiotics to prevent recurrence of C. difficile. On 06/10/2021 Mrs. Maynor saini 70 yo F presented to the ER with chief complaint of shortness of breath and migraine headache that began Thursday and gradually worsened prompting her to call EMS. She has a hx of oxygen dependent COPD. A breathing treatment along with pain medication have helped to relieve her sx, while talking and moving seemed to made it worse. She was administered 4L O2 via nasal cannula and reports that her migraine has also subsided. She also complained of right lower abdominal pain that is only present when coughing and right upper as well as left upper quadrant abdominal pain with palpation. She denied any nausea, vomiting, vision changes, numbess, parathesias or changes in bowel habits. On 06/10/2021 pt was admitted to the ICU floor for treatment of her COPD exacerbation and bi-lobed basilar pneumonia plus close monitoring. Pt received dual abx therapy (cefepime and vanco p/o) to treat pneumoia and prevent C.Diff occurrence - which has been an problem for this Pt in the past. Steroid treatment helped to resolve COPD exacerbation. Pt was visited daily as well as physical exam performed and labs closely monitored to ensure progression towards recovery. On 06/11/2021 pt was moved to 4th floor for continued recovery and her abdominal pain subsided following a large BM. On 06/13/2021 pt was D/C home with home health and abx (Omnisef and Vanco p/o) and steroid taper. Labs and Pending Lab Test: Laboratory Tests 06/12/21 15:25: Glucometer 191H 06/12/21 20:22: Glucometer 356H 06/13/21 05:44: White Blood Count 7.1, Red Blood Count 3.99, Hemoglobin 11.4L, Hematocrit 37, Mean Corpuscular Volume 92, Mean Corpuscular Hemoglobin 29, Mean Corpuscular Hemoglobin Concent 31L, Red Cell Distribution Width 16.7H, Platelet Count 259, Mean Platelet Volume 9.7, Immature Granulocyte % (Auto) 1, Neutrophils (%) (Auto) 89H, Lymphocytes (%) (Auto) 8L, Monocytes (%) (Auto) 2, Eosinophils (%) (Auto) 0, Basophils (%) (Auto) 0, Neutrophils # (Auto) 6.3, Lymphocytes # (Auto) 0.6L, Monocytes # (Auto) 0.1, Eosinophils # (Auto) 0.0, Basophils # (Auto) 0.0, Immature Granulocyte # (Auto) 0.1, Sodium Level 127L, Potassium Level 5.3H, Chloride Level 90L, Carbon Dioxide Level 25, Anion Gap 12, Blood Urea Nitrogen 30H, Creatinine 1.39H, Estimat Glomerular Filtration Rate 38, BUN/Creatinine Ratio 22, Glucose Level 328H, Calcium Level 9.5, Corrected Calcium 9.7, Total Bilirubin 0.5, Aspartate Amino Transf (AST/SGOT) 23, Alanine Aminotransferase (ALT/SGPT) 16, Alkaline Phosphatase 67, Total Protein 7.7, Albumin 3.8 06/13/21 06:39: Glucometer 270H 06/13/21 11:02: Glucometer 336H Microbiology 06/10/21 MRSA Screen - Final, Complete MRSA not isolated 06/10/21 Blood Culture - Preliminary, Resulted No growth 06/10/21 Urine Culture - Final, Complete Escherichia coli Home Meds Active Cefdinir 300 Mg Capsule 300 Mg PO BID Prednisone 10 Mg Tab.ds.pk 10 Mg PO DAILY Take 6 tabs(60mg)daily,decrease by 1 tab(10MG)daily. Vancomycin HCl 125 Mg Capsule 125 Mg PO BID Reported Oxycodone HCl 15 Mg Tablet 15 Mg PO Q4H PRN Amlodipine Besylate 5 Mg Tablet 5 Mg PO DAILY Lisinopril 10 Mg Tablet 10 Mg PO DAILY Airduo Digihaler 232-14 Mcg (Fluticasone Propion/Salmeterol) 1 Each Aer.pw.bas 1 Each IH BID PRN Multivitamin 1 Each Tablet 1 Each PO DAILY B Complex (Vitamin B Complex) 1 Each Tablet 1 Each PO DAILY Bisacodyl 5 Mg Tablet.dr 5 Mg PO DAILY PRN Pantoprazole Sodium 40 Mg Tablet.dr 40 Mg PO DAILY Metoprolol Tartrate 50 Mg Tablet 25 Mg PO BID TAKES OF A 50MG TAB Albuterol Sulfate 2.5 Mg/3 Ml Vial.neb 3 Ml NEB Q6H PRN Vitamin D3 (Cholecalciferol (Vitamin D3)) 50 Mcg Capsule 50 Mcg PO DAILY Januvia (Sitagliptin Phosphate) 100 Mg Tablet 100 Mg PO DAILY Eliquis (Apixaban) 5 Mg Tablet 5 Mg PO BID Atorvastatin Calcium 20 Mg Tablet 20 Mg PO HS Melatonin 5 Mg Tablet 5 Mg PO HS PRN Senna Lax (Sennosides) 8.6 Mg Tablet 8.6-17.2 Mg PO BID PRN Tylenol Extra Strength (Acetaminophen) 500 Mg Tablet 1,000 Mg PO Q6H PRN Magnesium (Magnesium Oxide) 400 Mg Tablet 400 Mg PO HS Vitamin C (Ascorbate Calcium) 500 Mg Tablet 500 Mg PO DAILY Neurontin (Gabapentin) 300 Mg Capsule 300 Mg PO HS Novolog Flexpen (Insulin Aspart) 300 Units/3 Ml Solution 5 Units SC AC Ozempic (Semaglutide) 1 Mg/0.75 Ml Pen.injctr 1 Mg INJ SUN Ventolin Hfa (Albuterol Sulfate) 18 Gm Hfa.aer.ad 2 Puff INH Q4H PRN Levothyroxine Sodium 100 Mcg Tablet 100 Mcg PO DAILY Levemir Flextouch (Insulin Detemir) 100 Unit/1 Ml Insuln.pen 15 Units SC HS Assessment/Pt Instructions PCP in 1 week Discharge Planning: <30 minutes discharge planning Discharge Instructions Discharge Diet: ADA Diet Activity as Tolerated: Yes Discharge Physical Examination Vital Signs Vital Signs Date Time Temp Pulse Resp B/P (MAP) Pulse Ox O2 Delivery O2 Flow Rate FiO2 06/13/21 11:42 36.4 82 16 160/78 (105) 88 06/13/21 10:56 Nasal Cannula 3.00 General Appearance: No Apparent Distress, WD/WN, Chronically ill, Obese Respiratory: Lungs Clear, Normal Breath Sounds Cardiovascular: Regular Rate, Rhythm Neurologic/Psychiatric: Alert, Oriented x3, No Motor/Sensory Deficits, Normal Mood/Affect Allergies: Coded Allergies: diphenhydramine (Verified Allergy, Unknown, 06/10/21) Discharge Summary Date of Admission Jun 10, 2021 at 13:46 Date of Discharge Discharge Date: Jun 13, 2021 Admission Diagnosis Assessment: Bilateral lower lobe pneumonia Exacerbation of COPD Recent C. difficile colitis Recent nephrectomy for renal cell carcinoma Smoker Morbid obesity BMI 45 Plan: ICU Aggressive treatment Oxygen supplementation Nebs IV steroids Discharge Diagnosis Discharge planned tomorrow Supportive care C. difficile prevention OKSANA SCHULTZ DO Jun 13, 2021 12:34
--- NOTE | 2021-06-13 15:29 | Progress Note ---
DAVID PRICE 06/13/21 1529: Progress Note On 06/10/2021 Mrs. Maynor saini 70 yo F presented to the ER with chief complaint of shortness of breath and migraine headache that began Thursday and gradually worsened prompting her to call EMS. She has a hx of oxygen dependent COPD. A breathing treatment along with pain medication have helped to relieve her sx, while talking and moving seemed to made it worse. She was administered 4L O2 via nasal cannula and reports that her migraine has also subsided. She also complained of right lower abdominal pain that is only present when coughing and right upper as well as left upper quadrant abdominal pain with palpation. She denied any nausea, vomiting, vision changes, numbess, parathesias or changes in bowel habits. On 06/10/2021 pt was admitted to the ICU floor for treatment of her COPD exacerbation and bi-lobed basilar pneumonia plus close monitoring. Pt received dual abx therapy (cefepime and vanco p/o) to treat pneumoia and prevent C.Diff occurrence - which has been an problem for this Pt in the past. Steroid treatment helped to resolve COPD exacerbation. Pt was visited daily as well as physical exam performed and labs closely monitored to ensure progression towards recovery. On 06/11/2021 pt was moved to 4th floor for continued recovery and her abdominal pain subsided following a large BM. On 06/13/2021 pt was D/C home with home health and abx (Omnisef and Vanco p/o) and steroid taper. ANGELITA SCHULTZ DO 06/13/212113: Supervisory-Addendum Brief Verification & Attestation Participated in pt care: history, MDM, physical Personally performed: exam, history, MDM, supervision of care Care discussed with: Medical Student Procedures: n/a Results interpretation: Verified all documentation Verification and Attestation of Medical Student E/M Service A medical student performed and documented this service in my presence. I reviewed and verified all information documented by the medical student and made modifications to such information, when appropriate. I personally performed the physical exam and medical decision making. Angelita Schultz Jun 13, 2021,21:14 DAVID PRICE Jun 13, 2021 15:29 ANGELITA SCHULTZ DO Jun 13, 2021 21:14
[2021-06-13] MEDS ORDERED: CEFEPIME 1,000 MG/SWFI 10 ML IV PUSH IV SCH ×2 (16:00)
== END 2021-06-13 14:30 | disposition home or self-care (01) | DRG 193 ==
LOC: EDUNIT# 11:02 → ER 11:04 → 4TH 13:46 → ICU 18:56 → 4TH 06-12 05:36
PROVIDERS: ADMIT Internal Medicine; ATTEND Internal Medicine
DX: J18.9 Pneumonia, unspecified organism (principal); J96.21 Acute and chronic respiratory failure with hypoxia; J44.1 Chronic obstructive pulmonary disease with (acute) exacerbation; Z68.42 Body mass index [BMI] 45.0-49.9, adult; N39.0 Urinary tract infection, site not specified; Z79.4 Long term (current) use of insulin; Z79.899 Other long term (current) drug therapy; F17.210 Nicotine dependence, cigarettes, uncomplicated; Z90.5 Acquired absence of kidney; E11.9 Type 2 diabetes mellitus without complications; K21.9 Gastro-esophageal reflux disease without esophagitis; I48.91 Unspecified atrial fibrillation; I50.9 Heart failure, unspecified; I11.0 Hypertensive heart disease with heart failure; E78.00 Pure hypercholesterolemia, unspecified; K57.90 Diverticulosis of intestine, part unspecified, without perforation or abscess without bleeding; M81.0 Age-related osteoporosis without current pathological fracture; M19.90 Unspecified osteoarthritis, unspecified site; G89.29 Other chronic pain; M54.9 Dorsalgia, unspecified; E66.01 Morbid (severe) obesity due to excess calories; Z66 Do not resuscitate; E03.9 Hypothyroidism, unspecified; F41.9 Anxiety disorder, unspecified; Z85.528 Personal history of other malignant neoplasm of kidney; Z89.621 Acquired absence of right hip joint; Z96.652 Presence of left artificial knee joint; G43.909 Migraine, unspecified, not intractable, without status migrainosus; E87.5 Hyperkalemia; E11.65 Type 2 diabetes mellitus with hyperglycemia; T38.0X5A Adverse effect of glucocorticoids and synthetic analogues, initial encounter
CPT/HCPCS: 36415; 36600; 51702; 71045; 80053; 81000; 82805; 82947; 83036; 83605; 83735; 84100; 84484; 85007; 85025; 85027; 85610; 85730; 87040; 87077; 87081; 87088; 87186; 93005; 94640; 94760

== ENCOUNTER 2021-07-15 12:32 | Inpatient (IN) | payer MEDICARE, MEDICAID ==
[~2021-07-15] VITALS: Ht 162 cm; Wt 107.4 kg
[2021-07-15] VITALS (19 sets, daily range): BP systolic 101–150; BP diastolic 67–102
[~2021-07-15 12:32] MED LIST changes: +CEFD300C3 PO
[2021-07-15] MEDS ORDERED: PIPERACILLIN SODIUM/TAZOBACTAM 4.5 GM in NS (IVPB) 100 ML IV ONE (13:00)
[2021-07-15] MEDS ORDERED: methylPREDNISolone 125 MG (Solu-MEDROL) VIAL IVP ONE (13:00)
[2021-07-15] MEDS ORDERED: NS IV 1000 ML 1,000 ML IV SCH (13:00)
[2021-07-15 13:12] LABS: BASOPHILS % (AUTO) 0 % (0-10); EOSINOPHILS % (AUTO) 0 % (0-10); HEMATOCRIT 42 % (35-52); HEMOGLOBIN 13.3 g/dL (11.5-16.0); LYMPHOCYTES # (AUTO) 1.8 10^3/uL (1.0-4.0); LYMPHOCYTES % (AUTO) 24 % (12-44); MEAN CORPUSCULAR HEMOGLOBIN 29 pg (25-34); MEAN CORPUSCULAR HGB CONC 31 g/dL (32-36); MEAN CORPUSCULAR VOLUME 92 fL (80-99); MEAN PLATELET VOLUME 9.4 fL (9.0-12.2); MONOCYTES # (AUTO) 0.7 10^3/uL (0.0-1.0); MONOCYTES % (AUTO) 9 % (0-12); NEUTROPHILS # (AUTO) 4.5 10^3/uL (1.8-7.8); NEUTROPHILS % (AUTO) 62 % (42-75); PLATELET COUNT 394 10^3/uL (130-400); WHITE BLOOD COUNT 7.4 10^3/uL (4.3-11.0)
--- NOTE | 2021-07-15 13:14 | ED Respiratory ---
General Chief Complaint: Respiratory Problems Stated Complaint: SOB Nursing Triage Note: PT TO RM 9 VIA [facility]. EMS REPORTS PT WAS SEEN AT HOME BY HER SUPERINTENDENT POLICE WHO SUSPECTS PT HAS PNA. SUPERINTENDENT POLICE FOUND THAT PT'S O2 MACHINE WAS BROKE UPON HER ARRIVAL, UNSURE HOW LONG PT WAS HYPOXIC. PT C/O CP W COUGH, SOA, AND BURNING W URINATION. PT A&OX4. Source: patient Exam Limitations: no limitations (DAVINA PILLAI) History of Present Illness Date Seen by Provider: Jul 15, 2021 Time Seen by Provider: 13:12 Initial Comments Patient is a 70-year-old female with a history of COPD presents ED with cough, shortness of breath since this past . Patient was seen at home by home health and found to be hypoxic in the low 80%. Patient does wear oxygen daily however her oxygen machine was not working. Patient on arrival in respiratory distress. Patient on 10 L on nonrebreather without much improvement. Patient was placed on BiPAP. History of pneumonia 1 month ago. Denies of any vomiting or diarrhea. Amputation right leg. She is diabetic. She does do breathing treatments at home and has not had much improvement. She reports a wet cough. She reports burning with urination. Home health denies of any fever. No known history of CHF (DAVINA PILLAI) Allergies and Home Medications Allergies Coded Allergies: diphenhydramine (Verified Allergy, Unknown, 06/10/21) Patient Home Medication List Home Medication List Reviewed: Yes (DAVINA PILLAI) Acetaminophen (Tylenol Extra Strength) 500 Mg Tablet, 1,000 MG PO Q6H PRN for PAIN-MILD (1-4), (Reported) Entered as Reported by: FAMILIA BLUE on 04/26/21 1014 Albuterol Sulfate (Ventolin Hfa) 18 Gm Hfa.aer.ad, 2 PUFF INH Q4H PRN for SHORTNESS OF BREATH, (Reported) Entered as Reported by: FAMILIA BLUE on 04/26/21 1014 Albuterol Sulfate (Albuterol Sulfate) 2.5 Mg/3 Ml Vial.neb, 3 ML NEB Q6H PRN for SHORTNESS OF BREATH, (Reported) Entered as Reported by: FAMILIA BLUE on 05/24/21 1114 Amlodipine Besylate (Amlodipine Besylate) 5 Mg Tablet, 5 MG PO DAILY, (Reported) Entered as Reported by: FAIMLIA BLUE on 06/11/21 1023 Apixaban (Eliquis) 5 Mg Tablet, 5 MG PO BID, (Reported) Entered as Reported by: FAMILIA BLUE on 04/26/21 1014 Ascorbate Calcium (Vitamin C) 500 Mg Tablet, 500 MG PO DAILY, (Reported) Entered as Reported by: FAMILIA BLUE on 04/26/21 1014 Atorvastatin Calcium (Atorvastatin Calcium) 20 Mg Tablet, 20 MG PO HS, (Reported) Entered as Reported by: FAMILIA BLUE on 04/26/21 1014 Bisacodyl (Bisacodyl) 5 Mg Tablet.dr, 5 MG PO DAILY PRN for CONSTIPATION-4TH LINE, (Reported) Entered as Reported by: FAMILIA BLUE on 05/24/21 1114 Cefdinir (Cefdinir) 300 Mg Capsule, 300 MG PO BID Prescribed by: OKSANA SCHULTZ on 06/13/21 1232 Cholecalciferol (Vitamin D3) (Vitamin D3) 50 Mcg Capsule, 50 MCG PO DAILY, (Reported) Entered as Reported by: FAMILIA BLUE on 05/24/21 1114 Fluticasone Propion/Salmeterol (Airduo Digihaler 232-14 Mcg) 1 Each Aer.pw.bas, 1 EACH IH BID PRN for SHORTNESS OF BREATH, (Reported) Entered as Reported by: FAMILIA BLUE on 05/24/21 1114 Gabapentin (Neurontin) 300 Mg Capsule, 300 MG PO HS, (Reported) Entered as Reported by: FAMILIA BLUE on 04/26/21 1014 Insulin Aspart (Novolog Flexpen) 300 Units/3 Ml Solution, 5 UNITS SC AC, (Reported) Entered as Reported by: FAMILIA BLUE on 04/26/21 1014 Insulin Detemir (Levemir Flextouch) 100 Unit/1 Ml Insuln.pen, 15 UNITS SC HS, (Reported) Entered as Reported by: FAMILIA BLUE on 04/26/21 1014 Levothyroxine Sodium (Levothyroxine Sodium) 100 Mcg Tablet, 100 MCG PO DAILY, (Reported) Entered as Reported by: FAMILIA BLUE on 04/26/21 1014 Lisinopril (Lisinopril) 10 Mg Tablet, 10 MG PO DAILY, (Reported) Entered as Reported by: FAMILIA BLUE on 06/11/21 1023 Magnesium Oxide (Magnesium) 400 Mg Tablet, 400 MG PO HS, (Reported) Entered as Reported by: FAMILIA BLUE on 04/26/21 1014 Melatonin (Melatonin) 5 Mg Tablet, 5 MG PO HS PRN for SLEEP, (Reported) Entered as Reported by: FAMILIA BLUE on 04/26/21 1014 Metoprolol Tartrate (Metoprolol Tartrate) 50 Mg Tablet, 25 MG PO BID, (Reported) Entered as Reported by: FAMILIA BLUE on 05/24/21 1114 Multivitamin (Multivitamin) 1 Each Tablet, 1 EACH PO DAILY, (Reported) Entered as Reported by: FAMILIA BLUE on 05/24/21 1114 Oxycodone HCl (Oxycodone HCl) 15 Mg Tablet, 15 MG PO Q4H PRN for PAIN-SEVERE (8- 10), (Reported) Entered as Reported by: FAMILIA BLUE on 06/11/21 1023 Pantoprazole Sodium (Pantoprazole Sodium) 40 Mg Tablet.dr, 40 MG PO DAILY, (Reported) Entered as Reported by: FAMILIA BLUE on 05/24/21 1114 Prednisone (Prednisone) 10 Mg Tab.ds.pk, 10 MG PO DAILY Prescribed by: OKSANA SCHULTZ on 06/13/21 1232 Semaglutide (Ozempic) 1 Mg/0.75 Ml Pen.injctr, 1 MG INJ SUN, (Reported) Entered as Reported by: FAMILIA BLUE on 04/26/21 1014 Sennosides (Senna Lax) 8.6 Mg Tablet, 8.6-17.2 MG PO BID PRN for CONSTIPATION- 5TH LINE, (Reported) Entered as Reported by: FAMILIA BLUE on 04/26/21 1014 Sitagliptin Phosphate (Januvia) 100 Mg Tablet, 100 MG PO DAILY, (Reported) Entered as Reported by: LORI LY on 05/23/21 1725 Vancomycin HCl (Vancomycin HCl) 125 Mg Capsule, 125 MG PO BID Prescribed by: OKSANA SCHULTZ on 06/13/21 1232 Vitamin B Complex (B Complex) 1 Each Tablet, 1 EACH PO DAILY, (Reported) Entered as Reported by: FAMILIA BLUE on 05/24/21 1114 Review of Systems Review of Systems Constitutional: chills, fever, malaise, weakness EENTM: No ear pain Respiratory: cough, short of breath, wheezing Gastrointestinal: No diarrhea, No nausea, No vomiting Musculoskeletal: No back pain, No joint pain Skin: No change in color, No change in hair/nails (DAVINA PILLAI) All Other Systems Reviewed Negative Unless Noted: Yes (DAVINA PILLAI) Past Vuazzba-Ykosjl-Pyacye Hx Patient Social History Tobacco Use?: Yes Tobacco type used: Cigarettes Smoking Status: Current Everyday Smoker Use of E-Cig and/or Vaping dev: No Substance use?: No Alcohol Use?: No (DAVINA PILLAI) Immunizations Up To Date Tetanus Booster (TDap): Unknown Influenza Vaccine Up-to-Date: Yes; Up-to-Date First/Initial COVID19 Vaccinat: 01/28 Second COVID19 Vaccination Roscoe: 02/27 Third COVID19 Vaccination Date: 01/28 COVID19 Vaccine Game Manager: YENNIFER (DAVINA PILLAI) Seasonal Allergies Seasonal Allergies: Yes (DAVINA PILLAI) Past Medical History Surgery/Hospitalization HX: R SIDE ABOVE KNEE AMPUTATION; left nephrectomy 04/23/21, IDDM, HTN, HIGH LIPIDS, GERD, AFIB, COPD. 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 PAIN ) Amputee, Osteoporosis, Arthritis, Chronic Back Pain Endocrine: Yes (MORBID OBESITY) Hypothyroidsim, Diabetes, Non-Insulin dep HEENT: Yes Cataract Loss of Vision: Left Hearing Impairment: Hard of Hearing Cancer: Yes Kidney Did You Recieve Any Treatments: Yes What Type of Treatment Did You: Surgical Intervention Psychosocial: Yes Anxiety Integumentary: Yes ("SKIN PICKING" ; WOUND INFECTIONS) Blood Disorders: No (DAVINA PILLAI) Family Medical History Heart Disease, Cancer, CAD Under 55 Years Old, CVA, Diabetes (DAVINA PILLAI) Physical Exam Vital Signs - First Documented (ANGELITA CORTÉS MD) Capillary Refill : Less Than 3 Seconds (DAVINA PILLAI) Height: '64.00" Weight: 261lbs. oz. [id number]; 44.00 BMI Method: General Appearance: moderate distress Eyes: Bilateral Eye Normal Inspection, Bilateral Eye PERRL, Bilateral Eye EOMI HEENT: PERRL/EOMI, normal ENT inspection, TMs normal Neck: non-tender, full range of motion, supple Respiratory: respiratory distress, decreased breath sounds, crackles Cardiovascular: no edema, no gallop, irregularly irregular Gastrointestinal: normal bowel sounds, non tender, soft, no organomegaly Extremities: other (Amputation right leg) Neurologic/Psychiatric: quarter supervisor II-XII nml as tested, no motor/sensory deficits, alert, normal mood/affect, oriented x 3 Skin: normal color, warm/dry (DAVINA PILLAI) Focused Exam Lactate Level 07/15/21 13:59: Lactic Acid Level 1.24 (ANGELITA CORTÉS MD) Lactic Acid Level Laboratory Tests Test 07/15/21 13:59 Lactic Acid Level 1.24 MMOL/L (0.50-2.00) (ANGELITA CORTÉS MD) Progress/Results/Core Measures Suspected Sepsis SIRS Temperature: Pulse: 107 Respiratory Rate: 36 Laboratory Tests 07/15/21 12:45: White Blood Count 7.4 Blood Pressure 169 /99 Mean: 122 07/15/21 13:59: Lactic Acid Level 1.24 Laboratory Tests 07/15/21 12:45: Creatinine 1.23, INR Comment 1.3, Platelet Count 394, Total Bilirubin 0.6 (DAVINA PILLAI) Results/Orders Lab Results Laboratory Tests Test 07/15/21 12:45 07/15/21 13:00 07/15/21 13:55 07/15/21 13:59 Range/Units White Blood Count 7.4 4.3-11.0 10^3/uL Red Blood Count 4.62 3.80-5.11 10^6/uL Hemoglobin 13.3 11.5-16.0 g/dL Hematocrit 42 35-52 % Mean Corpuscular Volume 92 80-99 fL Mean Corpuscular Hemoglobin 29 25-34 pg Mean Corpuscular Hemoglobin Concent 31 L 32-36 g/dL Red Cell Distribution Width 17.2 H 10.0-14.5 % Platelet Count 394 130-400 10^3/uL Mean Platelet Volume 9.4 9.0-12.2 fL Immature Granulocyte % (Auto) 5 % Neutrophils (%) (Auto) 62 42-75 % Lymphocytes (%) (Auto) 24 12-44 % Monocytes (%) (Auto) 9 0-12 % Eosinophils (%) (Auto) 0 0-10 % Basophils (%) (Auto) 0 0-10 % Neutrophils # (Auto) 4.5 1.8-7.8 10^3/uL Lymphocytes # (Auto) 1.8 1.0-4.0 10^3/uL Monocytes # (Auto) 0.7 0.0-1.0 10^3/uL Eosinophils # (Auto) 0.0 0.0-0.3 10^3/uL Basophils # (Auto) 0.0 0.0-0.1 10^3/uL Immature Granulocyte # (Auto) 0.3 H 0.0-0.1 10^3/uL Prothrombin Time 16.5 H 12.2-14.7 SEC INR Comment 1.3 0.8-1.4 Activated Partial Thromboplast Time 43 H 24-35 SEC Sodium Level 136 135-145 MMOL/L Potassium Level 4.4 3.6-5.0 MMOL/L Chloride Level 89 L 98-107 MMOL/L Carbon Dioxide Level 37 H 21-32 MMOL/L Anion Gap 10 5-14 MMOL/L Blood Urea Nitrogen 13 7-18 MG/DL Creatinine 1.23 0.60-1.30 MG/DL Estimat Glomerular Filtration Rate 43 BUN/Creatinine Ratio 11 Glucose Level 222 H 70-105 MG/DL Calcium Level 9.6 8.5-10.1 MG/DL Corrected Calcium 10.1 8.5-10.1 MG/DL Total Bilirubin 0.6 0.1-1.0 MG/DL Aspartate Amino Transf (AST/SGOT) 27 5-34 U/L Alanine Aminotransferase (ALT/SGPT) 18 0-55 U/L Alkaline Phosphatase 97 40-136 U/L Troponin I < 0.028 <0.028 NG/ML B-Type Natriuretic Peptide 68.0 <100.0 PG/ML Total Protein 7.3 6.4-8.2 GM/DL Albumin 3.4 3.2-4.5 GM/DL Influenza Type A (RT-PCR) Not Detected Not Detecte Influenza Type B (RT-PCR) Not Detected Not Detecte SARS-CoV-2 RNA (RT-PCR) Detected H Not Detecte Urine Color YELLOW Urine Clarity VERY CLOUDY H Urine pH 8.0 5-9 Urine Specific [place] 1.010 L 1.016-1.022 Urine Protein 1+ H NEGATIVE Urine Glucose (UA) NEGATIVE NEGATIVE Urine Ketones NEGATIVE NEGATIVE Urine Nitrite NEGATIVE NEGATIVE Urine Bilirubin NEGATIVE NEGATIVE Urine Urobilinogen 0.2 < = 1.0 MG/DL Urine Leukocyte Esterase 3+ H NEGATIVE Urine RBC (Auto) 3+ H NEGATIVE Urine RBC >100 H /HPF Urine WBC TNTC H /HPF Urine Squamous Epithelial Cells NONE /HPF Urine Crystals PRESENT H /LPF Urine Amorphous Sediment LARGE HYACINTH PHOSPHATE H /LPF Urine Bacteria LARGE H /HPF Urine Casts NONE /LPF Urine Mucus NEGATIVE /LPF Urine Yeast LARGE H /HPF Urine Culture Indicated CULTURE PENDING Blood Gas Puncture Site R RADIAL Blood Gas Patient Temperature 36.3 Arterial Blood pH 7.44 H 7.37-7.43 Arterial Blood Partial Pressure CO2 57 H 35-45 MMHG Arterial Blood Partial Pressure O2 95 H 79-93 MMHG Arterial Blood HCO3 39 H 23-27 MMOL/L Arterial Blood Total CO2 40.3 *H 21.0-31.0 MMOL/L Arterial Blood Oxygen Saturation 98 94-100 % Arterial Blood Base Excess 13.5 H -2.5-2.5 MMOL/L Jerrell Test YES-POS Blood Gas Ventilator Setting NO Blood Gas Inspired Oxygen 50% Lactic Acid Level 1.24 0.50-2.00 MMOL/L (ANGELITA CORTÉS MD) Medications Given in ED Current Medications Medications Dose Ordered Sig/Jordan Route Start Time Stop Time Status Last Admin Dose Admin Methylprednisolone Sodium Succinate 125 mg ONCE ONCE IVP 07/15/21 13:00 07/15/21 13:04 DC 07/15/21 13:31 125 MG Piperacillin Sod/ Tazobactam Sod 4.5 gm/Sodium Chloride 100 ml @ 200 mls/hr ONCE ONCE IV 07/15/21 13:00 07/15/21 13:29 DC 07/15/21 14:35 200 MLS/HR (ANGELITA CORTÉS MD) Vital Signs/I&O 07/15/21 07/15/21 07/15/21 12:38 12:38 13:41 Temp 36.3 Pulse 107 95 Resp 36 17 B/P (MAP) 169/99 (122) Pulse Ox 87 87 O2 Delivery OxyMask OxyMask O2 Flow Rate 10.00 10.00 50.00 (ANGELITA CORTÉS MD) Vital Signs/I&O Capillary Refill : Less Than 3 Seconds (DAVINA PILLAI) Blood Pressure Mean: 122 Departure Communication (Admissions) Time/Spoke to Admitting Phy: 15:03 Patient diabetic with right lower leg amputation, COPD presents ED respiratory distress. Oxygen level 80% on 3 L at home. Patient was placed on nonrebreather without much improvement. Patient was tachypneic. Patient was placed on BiPAP. Patient with hypercapnia. Symptoms improved. Patient does have sleep apnea. Sepsis protocol was initiated. Patient was given a liter of fluid. Normal lactic acid. Normal white blood count. Patient Was given Zosyn. UTI noted. Chest ray negative for pneumonia. Cardiac work-up unremarkable. EKG atrial fibrillation with 99 bpm. Patient vital signs improved with BiPAP. Covid positive. Patient will be admitted to the ICU unit for hypoxia secondary to Covid. Secondary UTI, and COPD exacerbation. Dr. Chaudhary accepted patient (DAVINA PILLAI) Impression Primary Impression: COVID-19 Additional Impressions: Hypoxia COPD exacerbation Disposition: ADMITTED INPATIENT Condition: Stable Admissions Decision to Admit Reason: Admit from ER (General) Decision to Admit/Date: Jul 15, 2021 Time/Decision to Admit Time: 15:05 (DAVINA PILLAI) Departure-Patient Inst. Referrals: [facility] (PCP/Family) Primary Care Physician ATTENDING PHYSICIAN NOTE: I was physically present as attending physician in the emergency department du ring the care of this patient, but I was not directly involved in the decision making or delivery of care for this patient. (ANGELITA CORTÉS MD) DAVINA PILLAI Jul 15, 2021 13:14 ANGELITA CORTÉS MD Jul 15, 2021 20:17
[2021-07-15 13:16] LABS: ALBUMIN 3.4 GM/DL (3.2-4.5); CHLORIDE 89 MMOL/L (98-107); POTASSIUM 4.4 MMOL/L (3.6-5.0); SODIUM 136 MMOL/L (135-145)
[2021-07-15 13:17] LABS: CALCIUM 9.6 MG/DL (8.5-10.1); INR 1.3 (0.8-1.4); PROTHROMBIN TIME PATIENT 16.5 SEC (12.2-14.7)
[2021-07-15 13:18] LABS: GLUCOSE 222 MG/DL (70-105); TOTAL PROTEIN 7.3 GM/DL (6.4-8.2)
[2021-07-15 13:19] LABS: CARBON DIOXIDE 37 MMOL/L (21-32)
[2021-07-15 13:20] LABS: BILIRUBIN,TOTAL 0.6 MG/DL (0.1-1.0)
[2021-07-15 13:22] LABS: ALKALINE PHOSPHATASE 97 U/L (40-136); CREATININE SERUM 1.23 MG/DL (0.60-1.30); GFR ESTIMATED 43
[2021-07-15 13:23] LABS: BUN/CREATININE RATIO 11
[2021-07-15 13:24] LABS: CLARITY,URINE VERY CLOUDY; COLOR,URINE YELLOW; PROTEIN,URINE 1+ (NEGATIVE)
[2021-07-15 13:25] LABS: BACTERIA,URINE LARGE /HPF; BILIRUBIN,URINE NEGATIVE (NEGATIVE); GLUCOSE, URINE (UA) NEGATIVE (NEGATIVE); KETONES,URINE NEGATIVE (NEGATIVE); NITRITE,URINE NEGATIVE (NEGATIVE); RBC,URINE >100 /HPF; WBC,URINE TNTC /HPF
[2021-07-15 13:25] LABS: ALANINE AMINOTRANSFERASE 18 U/L (0-55)
[2021-07-15 13:26] LABS: AMORPHOUS SEDIMENT,UR LARGE AMOR PHOSPHATE /LPF; YEAST,URINE LARGE /HPF
[2021-07-15 13:27] LABS: LEUKOCYTE ESTERASE ,URINE 3+ (NEGATIVE)
[2021-07-15] MEDS ORDERED: RT-ALBUTEROL/IPRATROPIUM 3 ML (DUONEB) VIAL INH SCH ×2 (14:00→22:00)
[2021-07-15 14:01] LABS: ABG BASE EXCESS 13.5 MMOL/L (-2.5-2.5); ABG OXYGEN SATURATION 98 % (94-100); ABG PCO2 57 MMHG (35-45); ABG PH 7.44 (7.37-7.43); ABG PO2 95 MMHG (79-93)
[2021-07-15 14:03] LABS: ABG TCO2 40.3 MMOL/L (21.0-31.0); ALLENS TEST YES-POS; INSPIRED O2 50%
[2021-07-15 14:04] LABS: PATIENT TEMP 36.3; VENTILATOR NO
--- NOTE | 2021-07-15 14:34 | Diagnostic Imaging Report ---
CHEST 1 VIEW, AP/PA ONLY Indication: Shortness of breath Comparison: 06/11/2021 Findings: Stable enlargement of cardiac silhouette. Central vascular indistinctness is similar. No consolidation visualized lungs. Posterior lower lobes are poorly evaluated by portable radiography. Stable blunting of left costophrenic angle. No pneumothorax. Impression: 1. Unchanged cardiomegaly without features of pulmonary edema. Dictated by: Dictated on workstation # [id number]
--- NOTE | 2021-07-15 18:52 | Tele-ICU Consult ---
History of Present Illness History of Present Illness Date Seen by Provider: Jul 15, 2021 Time Seen by Provider: 18:51 Date of Admission Allergies and Home Medications Allergies Coded Allergies: diphenhydramine (Verified Allergy, Unknown, 06/10/21) Home Medications Acetaminophen 500 Mg Tablet, 1,000 MG PO Q6H PRN for PAIN-MILD (1-4), (Reported) Albuterol Sulfate 18 Gm Hfa.aer.ad, 2 PUFF INH Q4H PRN for SHORTNESS OF BREATH, (Reported) Albuterol Sulfate 2.5 Mg/3 Ml Vial.neb, 3 ML NEB Q6H PRN for SHORTNESS OF BREATH, (Reported) Amlodipine Besylate 5 Mg Tablet, 5 MG PO DAILY, (Reported) Apixaban 5 Mg Tablet, 5 MG PO BID, (Reported) Ascorbate Calcium 500 Mg Tablet, 500 MG PO DAILY, (Reported) Atorvastatin Calcium 20 Mg Tablet, 20 MG PO HS, (Reported) Bisacodyl 5 Mg Tablet.dr, 5 MG PO DAILY PRN for CONSTIPATION-4TH LINE, (Reported) Cefdinir 300 Mg Capsule, 300 MG PO BID Prescribed by: OKSANA SCHULTZ on 06/13/21 1232 Cholecalciferol (Vitamin D3) 50 Mcg Capsule, 50 MCG PO DAILY, (Reported) Fluticasone Propion/Salmeterol 1 Each Aer.pw.bas, 1 EACH IH BID PRN for SHORTNESS OF BREATH, (Reported) Gabapentin 300 Mg Capsule, 300 MG PO HS, (Reported) Insulin Aspart 300 Units/3 Ml Solution, 5 UNITS SC AC, (Reported) Insulin Detemir 100 Unit/1 Ml Insuln.pen, 15 UNITS SC HS, (Reported) Levothyroxine Sodium 100 Mcg Tablet, 100 MCG PO DAILY, (Reported) Lisinopril 10 Mg Tablet, 10 MG PO DAILY, (Reported) Magnesium Oxide 400 Mg Tablet, 400 MG PO HS, (Reported) Melatonin 5 Mg Tablet, 5 MG PO HS PRN for SLEEP, (Reported) Metoprolol Tartrate 50 Mg Tablet, 25 MG PO BID, (Reported) TAKES OF A 50MG TAB Multivitamin 1 Each Tablet, 1 EACH PO DAILY, (Reported) Oxycodone HCl 15 Mg Tablet, 15 MG PO Q4H PRN for PAIN-SEVERE (8-10), (Reported) Pantoprazole Sodium 40 Mg Tablet.dr, 40 MG PO DAILY, (Reported) Prednisone 10 Mg Tab.ds.pk, 10 MG PO DAILY Take 6 tabs(60mg)daily,decrease by 1 tab(10MG)daily. Prescribed by: OKSANA SCHULTZ on 06/13/21 1232 Semaglutide 1 Mg/0.75 Ml Pen.injctr, 1 MG INJ SUN, (Reported) Sennosides 8.6 Mg Tablet, 8.6-17.2 MG PO BID PRN for CONSTIPATION-5TH LINE, (Reported) Sitagliptin Phosphate 100 Mg Tablet, 100 MG PO DAILY, (Reported) Vancomycin HCl 125 Mg Capsule, 125 MG PO BID Prescribed by: OKSANA SCHULTZ on 06/13/21 1232 Vitamin B Complex 1 Each Tablet, 1 EACH PO DAILY, (Reported) Past Medical/Social/Family Hx Patient Social History Tobacco Use?: Yes Tobacco type used: Cigarettes Smoking Status: Current Everyday Smoker Use of E-Cig and/or Vaping dev: No Substance use?: No Alcohol Use?: No Immunizations Up To Date Influenza Vaccine Up-to-Date: Yes; Up-to-Date First/Initial COVID19 Vaccinat: 01/28 Second COVID19 Vaccination [place]: 02/27 Tetanus Booster (TDap): Unknown Hepatitis A: Yes Hepatitis B: Yes Date of Pneumonia Vaccine: Mar 09, 2013 Current Status Advance Directives: No Communicates: Verbally Primary Language: Citizen Of [place] Preferred Spoken Language: Citizen Of [place] Past Medical History PMHx: Renal cell carcinoma Diabetes Hypertension Hyperlipidemia Atrial fibrillation COPD SurgHx: Cholecystectomy Appendectomy Hysterectomy Bladder sling and later removal Thyroidectomy 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 Left nephrectomy Left knee replacement, later removal of joint hardware due to infection, non-weightbearing chronically Bronchoscopy 04/2021 for mucus plugging Review of Systems Constitutional: see HPI Sepsis Event Evaluation Height, Weight, BMI Height: '64.00" Weight: 261lbs. oz. 118.604521fn; 44.00 BMI Method: Exam Exam Patient acknowledged, consented, and participated in this virtual visit which was conducted using real time audio/video Vital Signs Date Time Temp Pulse Resp B/P (MAP) Pulse Ox O2 Delivery O2 Flow Rate FiO2 07/15/21 18:38 36.0 115 28 136/98 (111) NIV Bilevel 50.00 07/15/21 13:41 95 17 50.00 07/15/21 12:38 87 OxyMask 10.00 07/15/21 12:38 36.3 107 36 169/99 (122) 87 OxyMask 10.00 Height & Weight Height: '64.00" Weight: 261lbs. oz. 118.671560ju; 44.00 BMI Method: General Appearance: No Apparent Distress Capillary Refill: Less Than 3 Seconds Gastrointestinal: normal bowel sounds, non tender, soft, no organomegaly Results Lab Laboratory Tests 07/15/21 12:45 Assessment/Plan Assessment/Plan (Tele-ICU Physician , consultation) Available chart/ vitals / labs / Images reviewed H&P is from ER nots Patient's information available about PMH, Shx, Fhx allergy reviewed in EMR. ROS as per chart and RN report Now in ICU, hemodynamically stable , on BIPAP AAO Video assessment done using teleICU camera, rest of exam as per RN Discussed with RN and patient Consultants: Hospital course: 07/15 - ARF -> BIPAP with AECOPD and + covid A/P AHRF with advanced COPD and + COVID19 - Cont NIPPV PRN foir WOB ( on bipap 21/02 50% rr 16 TV 550 - very comfortable - conservative fluid strategy (aim for even fluid balance , received 1 L in ER [id number] PNA ( Symptom onset ~07/11 DX 07/15 fully vaccinted with buster -- solumedrol 07/15 -Hypercoagulable state - on eliquis AECOPD ( with O2 equpment at home malfunctioning - was hypoxic at home for a while ) - solumedrol - nebs - Bipap for WOB A fib - as per cards rate control - on Eliquis 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 Discussed with RN to reach out if any questions or concerns A total of 35 minutes of critical care time was devoted to this patient today, required to treat and/or prevent further deterioration of critical care condition ( as above ) . PABLO GILLESPIE MD Jul 15, 2021 18:52
[2021-07-15] MEDS ORDERED: RT-ALBUTEROL HFA 8.5 GM INHALER IH PRN (19:00)
[2021-07-15] MEDS: ENOXAPARIN 40 MG/0.4 ML (LOVENOX) SYR SC SCH (20:23)
[2021-07-15] MEDS: PIPERACILLIN/TAZOBACTAM (BULK) 4.5 GM in NS (IVPB) 100 ML IV SCH (20:30)
[2021-07-15] MEDS: guaiFENesin SYRUP 100 MG/5 ML 10 ML (ROBITUSSIN SF) PO PRN (21:35)
[2021-07-15] MEDS: RT-ALBUTEROL HFA 8.5 GM INHALER IH SCH (21:38)
[2021-07-15] MEDS: inSUlin ASPART (NovoLOG) 1 UNIT/0.01 ML (CHARGE PER UNIT) SC SCH (22:39)
[2021-07-16] VITALS (22 sets, daily range): BP systolic 106–150; BP diastolic 59–104
[2021-07-16] MEDS: methylPREDNISolone 125 MG (Solu-MEDROL) VIAL IVP SCH ×3 (00:32→17:48)
[2021-07-16] MEDS: inSUlin ASPART (NovoLOG) 1 UNIT/0.01 ML (CHARGE PER UNIT) SC SCH ×6 (00:35→21:45)
[2021-07-16] MEDS: RT-ALBUTEROL HFA 8.5 GM INHALER IH SCH ×5 (02:43→22:41)
[2021-07-16 04:52] LABS: BASOPHILS % (AUTO) 0 % (0-10); EOSINOPHILS % (AUTO) 0 % (0-10); HEMATOCRIT 40 % (35-52); HEMOGLOBIN 12.4 g/dL (11.5-16.0); LYMPHOCYTES # (AUTO) 0.7 10^3/uL (1.0-4.0); LYMPHOCYTES % (AUTO) 10 % (12-44); MEAN CORPUSCULAR HEMOGLOBIN 28 pg (25-34); MEAN CORPUSCULAR HGB CONC 31 g/dL (32-36); MEAN CORPUSCULAR VOLUME 91 fL (80-99); MEAN PLATELET VOLUME 9.2 fL (9.0-12.2); MONOCYTES # (AUTO) 0.2 10^3/uL (0.0-1.0); MONOCYTES % (AUTO) 2 % (0-12); NEUTROPHILS # (AUTO) 6.1 10^3/uL (1.8-7.8); NEUTROPHILS % (AUTO) 83 % (42-75); PLATELET COUNT 347 10^3/uL (130-400); WHITE BLOOD COUNT 7.4 10^3/uL (4.3-11.0)
[2021-07-16 05:04] LABS: ALBUMIN 3.3 GM/DL (3.2-4.5); POTASSIUM 4.3 MMOL/L (3.6-5.0)
[2021-07-16 05:05] LABS: CALCIUM 8.9 MG/DL (8.5-10.1)
[2021-07-16 05:07] LABS: TOTAL PROTEIN 6.9 GM/DL (6.4-8.2)
[2021-07-16 05:09] LABS: BILIRUBIN,TOTAL 0.8 MG/DL (0.1-1.0)
[2021-07-16 05:10] LABS: CREATININE SERUM 1.25 MG/DL (0.60-1.30); PHOSPHORUS 3.2 MG/DL (2.3-4.7)
[2021-07-16 05:13] LABS: MAGNESIUM 2.4 MG/DL (1.6-2.4)
[2021-07-16] MEDS: PIPERACILLIN/TAZOBACTAM (BULK) 4.5 GM in NS (IVPB) 100 ML IV SCH ×3 (05:25→21:48)
[2021-07-16] MEDS ORDERED: KCL 20 MEQ TAB (K-DUR) PO SCH (06:00)
[2021-07-16] MEDS ORDERED: MAGNESIUM 1 GM/100 ML IVPB 100 ML IV SCH (06:00)
[2021-07-16] MEDS ORDERED: POTASSIUM CL 10MEQ/50ML IVPB 50 ML IV SCH (06:00)
--- NOTE | 2021-07-16 07:09 | Diagnostic Imaging Report ---
Portable erect AP chest at 401 hours. INDICATION: Shortness of breath. FINDINGS: The cardiomegaly noted on the prior exam of 07/15/2021 is again evident and not significantly changed. Also as on the prior exam, the perihilar markings on the right are prominent. The left lung base is not well penetrated. There is no new area of pneumonia or atelectasis identified and there is no significant pleural effusion. The mediastinum is not widened. The osseous structures are intact. IMPRESSION: Stable chest. There has been no significant change since the prior exam. Dictated by: Dictated on workstation # [id number]
[2021-07-16] MEDS: ENOXAPARIN 40 MG/0.4 ML (LOVENOX) SYR SC SCH ×2 (08:25→17:46)
[2021-07-16] MEDS ORDERED: PHARMACY TO DOSE SQ SCH (09:00)
--- NOTE | 2021-07-16 10:20 | Tele-ICU Progress Note ---
Subjective Date Seen by a Provider: Jul 16, 2021 Time Seen by a Provider: 10:20 Sepsis Event Evaluation Height, Weight, BMI Height: '64.00" Weight: 261lbs. oz. 118.676137nj; 40.77 BMI Method: Focused Exam Lactate Level 07/15/21 13:59: Lactic Acid Level 1.24 Exam Exam Patient acknowledged, consented, and participated in this virtual visit which was conducted using real time audio/video Vital Signs Date Time Temp Pulse Resp B/P (MAP) Pulse Ox O2 Delivery O2 Flow Rate FiO2 07/16/21 09:30 28 112/62 (83) 94 High Flow N/C 4.00 07/16/21 09:15 80 26 94 High Flow N/C 4.00 07/16/21 09:00 14 106/59 (79) 93 High Flow N/C 4.00 07/16/21 08:45 86 9 93 High Flow N/C 4.00 07/16/21 08:32 36.1 07/16/21 08:30 94 High Flow N/C 4.00 07/16/21 08:30 131/75 (93) High Flow N/C 4.00 07/16/21 08:15 94 14 91 High Flow N/C 4.00 07/16/21 08:05 95 High Flow N/C 5.00 07/16/21 08:00 132/81 (102) 07/16/21 07:45 81 10 95 High Flow N/C 4.00 07/16/21 07:30 84 20 123/74 (81) 96 High Flow N/C 4.00 07/16/21 07:15 78 10 94 High Flow N/C 4.00 07/16/21 07:00 81 150/83 (94) 94 High Flow N/C 4.00 07/16/21 07:00 80 07/16/21 06:00 73 25 138/81 (100) 98 High Flow N/C 5.00 07/16/21 05:00 89 10 138/84 (102) 97 High Flow N/C 5.00 07/16/21 04:00 93 High Flow N/C 5.00 07/16/21 04:00 82 134/104 (116) 95 High Flow N/C 5.00 07/16/21 03:46 35.6 High Flow N/C 5.00 07/16/21 03:00 87 124/84 (97) 95 High Flow N/C 5.00 07/16/21 02:43 95 High Flow N/C 5.00 07/16/21 02:00 98 29 123/66 (97) 95 High Flow N/C 5.00 07/16/21 01:00 81 28 122/75 (91) 96 High Flow N/C 5.00 07/16/21 01:00 97 07/16/21 00:45 36.2 07/16/21 00:00 93 High Flow N/C 5.00 07/16/21 00:00 87 28 118/80 (86) 92 High Flow N/C 5.00 07/15/21 23:45 108 16 119/73 (92) 94 High Flow N/C 5.00 07/15/21 23:30 114 27 121/89 (96) 93 High Flow N/C 5.00 07/15/21 23:15 116 115/67 (86) 92 High Flow N/C 5.00 07/15/21 23:00 105 37 101/70 (82) 92 High Flow N/C 5.00 07/15/21 22:45 116 135/85 (110) 92 High Flow N/C 5.00 07/15/21 22:30 118 38 134/71 (93) 91 High Flow N/C 5.00 07/15/21 22:15 90 25 137/102 (108) 93 High Flow N/C 5.00 07/15/21 22:00 112 36 150/95 (109) 90 High Flow N/C 5.00 07/15/21 21:45 116 21 143/96 (114) 91 High Flow N/C 5.00 07/15/21 21:40 94 High Flow N/C 5.00 07/15/21 21:32 107 140/90 (111) 87 High Flow N/C 5.00 07/15/21 20:45 112 117/86 (95) 92 High Flow N/C 5.00 07/15/21 20:31 93 High Flow N/C 5.00 07/15/21 20:30 113 29 138/85 (100) 92 High Flow N/C 4.00 07/15/21 20:15 117 25 125/92 (108) 90 High Flow N/C 4.00 07/15/21 20:00 125 33 127/84 (97) 91 High Flow N/C 4.00 07/15/21 20:00 90 High Flow N/C 4.00 07/15/21 19:45 36.1 07/15/21 19:45 106 32 139/95 (105) 92 High Flow N/C 4.00 07/15/21 19:30 101 20 131/84 (92) 92 High Flow N/C 4.00 07/15/21 19:15 106 19 128/95 (108) 94 High Flow N/C 4.00 07/15/21 19:00 100 07/15/21 19:00 High Flow N/C 4.00 07/15/21 19:00 116 18 128/74 (92) 91 High Flow N/C 4.00 07/15/21 18:38 36.0 115 28 136/98 (111) NIV Bilevel 50.00 07/15/21 18:18 108 24 154/78 94 NIV Bilevel 07/15/21 13:41 95 17 50.00 07/15/21 12:38 87 OxyMask 10.00 07/15/21 12:38 36.3 107 36 169/99 (122) 87 OxyMask 10.00 I & O 07/16/21 07:00 Intake Total 420 ml Output Total 2325 ml Balance -1905 ml Height & Weight Height: '64.00" Weight: 261lbs. oz. 118.237780xr; 40.77 BMI Method: General Appearance: No Apparent Distress Capillary Refill: Less Than 3 Seconds Gastrointestinal: normal bowel sounds, non tender, soft, no organomegaly Results Lab Laboratory Tests 07/15/21 12:45 07/16/21 04:36 Assessment/Plan Assessment/Plan Tele-ICU Physician , Progress Note ) Available chart/ vitals / labs / Images reviewed Video assessment done using teleICU camera, rest of exam as per RN Discussed with RN , EXAM PER RN Events overnight : Afebrile FiO2 - 3L I/O = Drips: Pressors: , hemodynamically stable Consultants: Hospital course: 07/15 - ARF -> BIPAP with AECOPD and + covid - bipap 21/02 50% rr 16 TV 550 - very comfortable 07/16 - 3 L o2 A/P AHRF with advanced COPD and + COVID19 -( also was hypoxix at home with malfunctioning O2 equipment ) - Cont NIPPV PRN , on 3L o2 now - conservative fluid strategy (aim for even fluid balance , received 1 L in ER [id number]-2/COVID-19 PNA ( Symptom onset ~07/11 DX 07/15 fully vaccinted with buster -- solumedrol 07/15 given AECOPD - consider to change to " covid dose " when bronchospam improve -Hypercoagulable state - on eliquis AECOPD ( with O2 equpment at home malfunctioning - was hypoxic at home for a while ) - solumedrol IV - still whewezing - will decrease dose - nebs - Bipap for WOB A fib - as per cards rate control - on Eliquis 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 Discussed with RN to reach out if any questions or concerns A total of 35 minutes of critical care time was devoted to this patient today, required to treat and/or prevent further deterioration of critical care condition ( as above ) . PABLO GILLESPIE MD Jul 16, 2021 10:20
--- NOTE | 2021-07-16 10:23 | History & Physical ---
HPI History of Present Illness: 70 yo F with baseline oxygen requirement of 3-4 LPM that presented with increasing shortness of breath. Patient states that her oxygen malfunctioned and she was not able to get a replacement. When EMS arrived patient was in the 60s. Patient required bipap upon admission. Patient was quickly able to be titrated to home oxygen. Patient was first diagnosed with COVID-19 on 07/08. Patient was found to have multiple small PEs bilaterally. Source: patient Exam Limitations: no limitations Date seen by provider: Jul 16, 2021 Time Seen by Provider: 09:45 Attending Physician Olvin Chaudhary MD PCP Center/[facility] Consult Date of Admission Jul 15, 2021 at 15:02 Home Medications Home Medications Reviewed patient Home Medication Reconciliation performed by pharmacy medication reconciliations studio technician and/or nursing. Patients Allergies have been reviewed. Allergies Coded Allergies: diphenhydramine (Verified Allergy, Unknown, 06/10/21) EDP-Jsluhh-Edzsyv Hx Patient Social History Living Status: Lives at home independently Smoking Status: Current Everyday Smoker 2nd Hand Smoke Exposure: Yes Recent Hopitalizations: No Alcohol Use?: No Tobacco type used: Cigarettes Have you traveled recently?: No Immunizations Up To Date Tetanus Booster (TDap): Unknown Date of Pneumonia Vaccine: Mar 09, 2013 Date of Influenza Vaccine: May 17, 2021 Past Medical History PMHx: Renal cell carcinoma Diabetes Hypertension Hyperlipidemia Atrial fibrillation COPD SurgHx: Cholecystectomy Appendectomy Hysterectomy Bladder sling and later removal Thyroidectomy 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 Left nephrectomy Left knee replacement, later removal of joint hardware due to infection, non-weightbearing chronically Bronchoscopy 04/2021 for mucus plugging Family Medical History Significant Family History: Heart Disease, Cancer, CAD Under 55 Years Old, CVA, Diabetes Review of Systems (CHC) Constitutional: No chills, No fever; malaise, weakness EENTM: no symptoms reported Respiratory: cough, short of breath Cardiovascular: no symptoms reported; No chest pain, No edema, No palpitations Gastrointestinal: no symptoms reported; No abdominal pain, No constipation, No diarrhea, No nausea, No vomiting Genitourinary: no symptoms reported; No dysuria, No frequency : No Musculoskeletal: no symptoms reported; No back pain, No joint pain, No muscle pain Skin: no symptoms reported; No lesions, No rash Psychiatric/Neurological: No Symptoms Reported Reviewed Test Results Reviewed Test Results Lab Laboratory Tests Test 07/16/21 00:30 07/16/21 04:36 07/16/21 11:27 07/16/21 17:00 Range/Units Glucometer 367 H 456 *H 379 H 70-110 MG/DL White Blood Count 7.4 4.3-11.0 10^3/uL Red Blood Count 4.37 3.80-5.11 10^6/uL Hemoglobin 12.4 11.5-16.0 g/dL Hematocrit 40 35-52 % Mean Corpuscular Volume 91 80-99 fL Mean Corpuscular Hemoglobin 28 25-34 pg Mean Corpuscular Hemoglobin Concent 31 L 32-36 g/dL Red Cell Distribution Width 16.8 H 10.0-14.5 % Platelet Count 347 130-400 10^3/uL Mean Platelet Volume 9.2 9.0-12.2 fL Immature Granulocyte % (Auto) 4 % Neutrophils (%) (Auto) 83 H 42-75 % Lymphocytes (%) (Auto) 10 L 12-44 % Monocytes (%) (Auto) 2 0-12 % Eosinophils (%) (Auto) 0 0-10 % Basophils (%) (Auto) 0 0-10 % Neutrophils # (Auto) 6.1 1.8-7.8 10^3/uL Lymphocytes # (Auto) 0.7 L 1.0-4.0 10^3/uL Monocytes # (Auto) 0.2 0.0-1.0 10^3/uL Eosinophils # (Auto) 0.0 0.0-0.3 10^3/uL Basophils # (Auto) 0.0 0.0-0.1 10^3/uL Immature Granulocyte # (Auto) 0.3 H 0.0-0.1 10^3/uL Sodium Level 131 L 135-145 MMOL/L Potassium Level 4.3 3.6-5.0 MMOL/L Chloride Level 89 L 98-107 MMOL/L Carbon Dioxide Level 30 21-32 MMOL/L Anion Gap 12 5-14 MMOL/L Blood Urea Nitrogen 14 7-18 MG/DL Creatinine 1.25 0.60-1.30 MG/DL Estimat Glomerular Filtration Rate 43 BUN/Creatinine Ratio 11 Glucose Level 330 H 70-105 MG/DL Calcium Level 8.9 8.5-10.1 MG/DL Corrected Calcium 9.5 8.5-10.1 MG/DL Phosphorus Level 3.2 2.3-4.7 MG/DL Magnesium Level 2.4 1.6-2.4 MG/DL Total Bilirubin 0.8 0.1-1.0 MG/DL Aspartate Amino Transf (AST/SGOT) 21 5-34 U/L Alanine Aminotransferase (ALT/SGPT) 17 0-55 U/L Alkaline Phosphatase 91 40-136 U/L Total Protein 6.9 6.4-8.2 GM/DL Albumin 3.3 3.2-4.5 GM/DL Physical Exam-(CHC) Physical Exam Vital Signs VS - Last 72 Hours, by Label 07/15/21 07/15/21 07/15/21 07/15/21 12:38 12:38 13:41 18:18 Temp 36.3 Pulse 107 95 108 Resp 36 17 24 B/P (MAP) 169/99 (122) 154/78 Pulse Ox 87 87 94 O2 Delivery OxyMask OxyMask NIV Bilevel O2 Flow Rate 10.00 10.00 50.00 07/15/21 07/15/21 07/15/21 07/15/21 18:38 19:00 19:00 19:00 Temp 36.0 Pulse 115 116 100 Resp 28 18 B/P (MAP) 136/98 (111) 128/74 (92) Pulse Ox 91 O2 Delivery NIV Bilevel High Flow N/C High Flow N/C O2 Flow Rate 50.00 4.00 4.00 07/15/21 07/15/21 07/15/21 07/15/21 19:15 19:30 19:45 19:45 Temp 36.1 Pulse 106 101 106 Resp 19 20 32 B/P (MAP) 128/95 (108) 131/84 (92) 139/95 (105) Pulse Ox 94 92 92 O2 Delivery High Flow N/C High Flow N/C High Flow N/C O2 Flow Rate 4.00 4.00 4.00 07/15/21 07/15/21 07/15/21 07/15/21 20:00 20:00 20:15 20:30 Pulse 125 117 113 Resp 33 25 29 B/P (MAP) 127/84 (97) 125/92 (108) 138/85 (100) Pulse Ox 90 91 90 92 O2 Delivery High Flow N/C High Flow N/C High Flow N/C High Flow N/C O2 Flow Rate 4.00 4.00 4.00 4.00 07/15/21 07/15/21 07/15/21 07/15/21 20:31 20:45 21:32 21:40 Pulse 112 107 B/P (MAP) 117/86 (95) 140/90 (111) Pulse Ox 93 92 87 94 O2 Delivery High Flow N/C High Flow N/C High Flow N/C High Flow N/C O2 Flow Rate 5.00 5.00 5.00 5.00 07/15/21 07/15/21 07/15/21 07/15/21 21:45 22:00 22:15 22:30 Pulse 116 112 90 118 Resp 21 36 25 38 B/P (MAP) 143/96 (114) 150/95 (109) 137/102 (108) 134/71 (93) Pulse Ox 91 90 93 91 O2 Delivery High Flow N/C High Flow N/C High Flow N/C High Flow N/C O2 Flow Rate 5.00 5.00 5.00 5.00 07/15/21 07/15/21 07/15/21 07/15/21 22:45 23:00 23:15 23:30 Pulse 116 105 116 114 Resp 37 27 B/P (MAP) 135/85 (110) 101/70 (82) 115/67 (86) 121/89 (96) Pulse Ox 92 92 92 93 O2 Delivery High Flow N/C High Flow N/C High Flow N/C High Flow N/C O2 Flow Rate 5.00 5.00 5.00 5.00 07/15/21 07/16/21 07/16/21 07/16/21 23:45 00:00 00:00 00:45 Temp 36.2 Pulse 108 87 Resp 16 28 B/P (MAP) 119/73 (92) 118/80 (86) Pulse Ox 94 92 93 O2 Delivery High Flow N/C High Flow N/C High Flow N/C O2 Flow Rate 5.00 5.00 5.00 07/16/21 07/16/21 07/16/21 07/16/21 01:00 01:00 02:00 02:43 Pulse 97 81 98 Resp 28 29 B/P (MAP) 122/75 (91) 123/66 (97) Pulse Ox 96 95 95 O2 Delivery High Flow N/C High Flow N/C High Flow N/C O2 Flow Rate 5.00 5.00 5.00 07/16/21 07/16/21 07/16/21 07/16/21 03:00 03:46 04:00 04:00 Temp 35.6 Pulse 87 82 B/P (MAP) 124/84 (97) 134/104 (116) Pulse Ox 95 95 93 O2 Delivery High Flow N/C High Flow N/C High Flow N/C High Flow N/C O2 Flow Rate 5.00 5.00 5.00 5.00 07/16/21 07/16/21 07/16/21 07/16/21 05:00 06:00 07:00 07:00 Pulse 89 73 80 81 Resp 10 25 B/P (MAP) 138/84 (102) 138/81 (100) 150/83 (94) Pulse Ox 97 98 94 O2 Delivery High Flow N/C High Flow N/C High Flow N/C O2 Flow Rate 5.00 5.00 4.00 07/16/21 07/16/21 07/16/21 07/16/21 07:15 07:30 07:45 08:00 Pulse 78 84 81 Resp 10 20 10 B/P (MAP) 123/74 (81) 132/81 (102) Pulse Ox 94 96 95 O2 Delivery High Flow N/C High Flow N/C High Flow N/C O2 Flow Rate 4.00 4.00 4.00 07/16/21 07/16/21 07/16/21 07/16/21 08:05 08:15 08:30 08:30 Pulse 94 Resp 14 B/P (MAP) 131/75 (93) Pulse Ox 95 91 94 O2 Delivery High Flow N/C High Flow N/C High Flow N/C High Flow N/C O2 Flow Rate 5.00 4.00 4.00 4.00 07/16/21 07/16/21 07/16/21 07/16/21 08:30 08:32 08:45 09:00 Temp 36.1 Pulse 86 Resp 9 14 B/P (MAP) 106/59 (79) Pulse Ox 94 93 93 O2 Delivery High Flow N/C High Flow N/C High Flow N/C O2 Flow Rate 4.00 4.00 4.00 07/16/21 07/16/21 07/16/21 07/16/21 09:15 09:30 10:00 10:15 Pulse 80 Resp 26 28 27 28 B/P (MAP) 112/62 (83) 115/67 (88) Pulse Ox 94 94 95 94 O2 Delivery High Flow N/C High Flow N/C High Flow N/C High Flow N/C O2 Flow Rate 4.00 4.00 4.00 4.00 07/16/21 07/16/21 07/16/21 07/16/21 10:30 10:45 11:00 11:15 Resp 29 61 14 52 B/P (MAP) 123/78 (104) 116/84 (99) Pulse Ox 94 94 94 93 O2 Delivery High Flow N/C High Flow N/C High Flow N/C High Flow N/C O2 Flow Rate 4.00 4.00 4.00 4.00 07/16/21 07/16/21 07/16/21 07/16/21 11:30 11:45 11:55 12:00 Resp 32 30 B/P (MAP) 129/70 (91) 122/76 (99) Pulse Ox 94 94 93 O2 Delivery High Flow N/C High Flow N/C High Flow N/C O2 Flow Rate 4.00 4.00 5.00 07/16/21 07/16/21 07/16/21 07/16/21 12:18 12:30 12:45 13:00 Pulse 90 120 Resp 9 26 61 B/P (MAP) 128/94 (108) Pulse Ox 95 93 92 85 O2 Delivery High Flow N/C High Flow N/C High Flow N/C High Flow N/C O2 Flow Rate 4.00 4.00 4.00 4.00 07/16/21 07/16/21 07/16/21 07/16/21 13:15 13:30 13:46 14:33 Temp 36.4 Pulse 103 101 109 119 Resp 26 18 20 B/P (MAP) 112/65 (81) Pulse Ox 93 94 92 O2 Delivery High Flow N/C High Flow N/C Nasal Cannula O2 Flow Rate 4.00 4.00 4.00 07/16/21 07/16/21 07/16/217/21 16:00 19:00 19:06 19:24 Temp 36.6 36.7 Pulse 105 103 93 Resp 18 22 B/P (MAP) 137/67 (90) 120/63 (82) Pulse Ox 93 93 93 O2 Delivery High Flow N/C High Flow N/C High Flow N/C O2 Flow Rate 6.00 6.00 6.00 Capillary Refill : Less Than 3 Seconds General Appearance: WD/WN, no apparent distress, obese HEENT: PERRL/EOMI Neck: non-tender, full range of motion, supple Respiratory: chest non-tender, lungs clear, normal breath sounds, no respiratory distress, no accessory muscle use Cardiovascular: normal peripheral pulses, regular rate, rhythm, no edema, no murmur Gastrointestinal: normal bowel sounds, non tender, soft Back: no CVA tenderness, no vertebral tenderness Extremities: normal range of motion, non-tender, normal inspection, no pedal edema, no calf tenderness, normal capillary refill Neurologic/Psychiatric: surgical attendant II-XII nml as tested, no motor/sensory deficits, alert, normal mood/affect, oriented x 3 Skin: normal color, warm/dry Lymphatic: no adenopathy Assessment/Plan Assessment/Plan Admission Status: Inpatient Order (span 2 midnights) Reason for Inpatient Admission: Patient requiring close monitoring, high risk of decompensation (1) Acute and chronic respiratory failure Status: Resolved Assessment & Plan: - Patient titrated off bipap, on NC 3-4 LPM this AM, MAT protocol, Steroids, CT revealed bilateral PE (2) Pulmonary embolism associated with COVID-19 Status: Acute Assessment & Plan: - Bilateral PE, Echo ordered, Cardiology consulted, appreciate recommendations (3) COPD with acute exacerbation Status: Acute (4) COVID-19 Status: Acute (5) Type 2 diabetes mellitus with complication Status: Chronic Assessment & Plan: - Continue home insulin, Accuchecks, SSI, A1c pending (6) Chronic atrial fibrillation Status: Acute Assessment & Plan: - holding OAC, started on Lovenox (7) Primary hypertension Status: Chronic Assessment & Plan: - Restarted home meds (8) Morbid obesity Status: Chronic (9) DVT prophylaxis Status: Acute OLVIN CHAUDHARY MD Jul 16, 2021 10:23
[2021-07-16] MEDS ORDERED: LISI10TA25 PO (15:53)
[2021-07-16] MEDS ORDERED: CYCL5TAB PO (15:53)
[2021-07-16] MEDS ORDERED: AMLO-250 PO (15:53)
[2021-07-16] MEDS: guaiFENesin SYRUP 100 MG/5 ML 10 ML (ROBITUSSIN SF) PO PRN (19:56)
[2021-07-16] MEDS ORDERED: meTOprolol TARTRATE 50 MG (LOPRESSOR) TAB PO PRN (20:45)
[2021-07-16] MEDS: GABAPENTIN 300 MG (NEURONTIN) CAP PO SCH (21:45)
[2021-07-17] VITALS (7 sets, daily range): BP systolic 112–177; BP diastolic 69–89
[2021-07-17] MEDS: RT-ALBUTEROL HFA 8.5 GM INHALER IH SCH ×6 (03:13→22:09)
[2021-07-17] MEDS: LEVOTHYROXINE 100 MCG (LEVOTHROID) TAB PO SCH (05:48)
[2021-07-17] MEDS: PIPERACILLIN/TAZOBACTAM (BULK) 4.5 GM in NS (IVPB) 100 ML IV SCH ×3 (05:48→20:31)
[2021-07-17] MEDS: ENOXAPARIN 40 MG/0.4 ML (LOVENOX) SYR SC SCH ×2 (05:48→16:54)
[2021-07-17] MEDS: methylPREDNISolone 125 MG (Solu-MEDROL) VIAL IVP SCH ×2 (05:48→16:55)
[2021-07-17 06:05] LABS: BASOPHILS % (AUTO) 0 % (0-10); EOSINOPHILS % (AUTO) 0 % (0-10); HEMATOCRIT 36 % (35-52); HEMOGLOBIN 11.2 g/dL (11.5-16.0); LYMPHOCYTES # (AUTO) 0.7 10^3/uL (1.0-4.0); LYMPHOCYTES % (AUTO) 8 % (12-44); MEAN CORPUSCULAR HEMOGLOBIN 28 pg (25-34); MEAN CORPUSCULAR HGB CONC 31 g/dL (32-36); MEAN CORPUSCULAR VOLUME 91 fL (80-99); MEAN PLATELET VOLUME 10.2 fL (9.0-12.2); MONOCYTES # (AUTO) 0.6 10^3/uL (0.0-1.0); MONOCYTES % (AUTO) 7 % (0-12); NEUTROPHILS # (AUTO) 7.1 10^3/uL (1.8-7.8); NEUTROPHILS % (AUTO) 81 % (42-75); PLATELET COUNT 333 10^3/uL (130-400); WHITE BLOOD COUNT 8.8 10^3/uL (4.3-11.0)
[2021-07-17] MEDS: inSUlin ASPART (NovoLOG) 1 UNIT/0.01 ML (CHARGE PER UNIT) SC SCH ×4 (06:18→20:33)
[2021-07-17 06:20] LABS: ALBUMIN 3.1 GM/DL (3.2-4.5)
[2021-07-17 06:21] LABS: POTASSIUM 4.6 MMOL/L (3.6-5.0)
[2021-07-17 06:22] LABS: CALCIUM 8.9 MG/DL (8.5-10.1)
[2021-07-17 06:23] LABS: TOTAL PROTEIN 6.4 GM/DL (6.4-8.2)
[2021-07-17 06:25] LABS: BILIRUBIN,TOTAL 0.7 MG/DL (0.1-1.0)
[2021-07-17 06:27] LABS: CREATININE SERUM 1.3 MG/DL (0.60-1.30)
[2021-07-17] MEDS: lisINopril 10 MG (PRINIVIL) TABLET PO SCH (09:42)
[2021-07-17] MEDS: amLODIPine 5 MG (NORVASC) TAB PO SCH (09:43)
--- NOTE | 2021-07-17 19:49 | Progress Note ---
Subjective Subjective/Events-last exam Patient is feeling about the same as yesterday. Tolerating PO diet. Blood sugars mildly improved but still not at goal. Review of Systems General: Fatigue Pulmonary: Dyspnea, Cough Cardiovascular: No: Chest Pain, Palpitations, Edema Gastrointestinal: No: Nausea, Vomiting, Abdominal Pain, Diarrhea, Constipation Neurological: Weakness, Incoordination Focused Exam Lactate Level 07/15/21 13:59: Lactic Acid Level 1.24 Objective Exam Last Set of Vital Signs Vital Signs Date Time Temp Pulse Resp B/P (MAP) Pulse Ox O2 Delivery O2 Flow Rate FiO2 07/17/21 19:02 94 High Flow N/C 6.00 07/17/21 19:00 85 07/17/21 19:00 36.6 20 118/73 (88) Capillary Refill : Less Than 3 Seconds I&O Intake and Output 07/17/21 00:00 Intake Total 1150 ml Output Total 1350 ml Balance -200 ml Intake Oral 1030 ml IV Total 120 ml Output Urine Total 1350 ml # Bowel Movements 1 General: Alert, Oriented X3, Cooperative, Mild Distress (increased work of breathing with activity) Lungs: Normal Air Movement Heart: Regular Rate, No Murmurs Abdomen: Normal Bowel Sounds, Soft, No Tenderness, No Masses Extremities: No Tenderness/Swelling Neuro: Normal Speech, Cranial Nerves 3-12 NL Psych/Mental Status: Mental Status NL, Mood NL Results/Procedures Lab Laboratory Tests 07/16/21 21:03: Glucometer 361H 07/17/21 05:50: White Blood Count 8.8, Red Blood Count 3.95, Hemoglobin 11.2L, Hematocrit 36, Mean Corpuscular Volume 91, Mean Corpuscular Hemoglobin 28, Mean Corpuscular Hemoglobin Concent 31L, Red Cell Distribution Width 16.7H, Platelet Count 333, Mean Platelet Volume 10.2, Immature Granulocyte % (Auto) 4, Neutrophils (%) (Auto) 81H, Lymphocytes (%) (Auto) 8L, Monocytes (%) (Auto) 7, Eosinophils (%) (Auto) 0, Basophils (%) (Auto) 0, Neutrophils # (Auto) 7.1, Lymphocytes # (Auto) 0.7L, Monocytes # (Auto) 0.6, Eosinophils # (Auto) 0.0, Basophils # (Auto) 0.0, Immature Granulocyte # (Auto) 0.3H, Sodium Level 129L, Potassium Level 4.6, Chloride Level 88L, Carbon Dioxide Level 30, Anion Gap 11, Blood Urea Nitrogen 21H, Creatinine 1.30, Estimat Glomerular Filtration Rate 41, BUN/Creatinine Ratio 16, Glucose Level 345H, Calcium Level 8.9, Corrected Calcium 9.6, Total Bilirubin 0.7, Aspartate Amino Transf (AST/SGOT) 21, Alanine Aminotransferase (ALT/SGPT) 17, Alkaline Phosphatase 68, Total Protein 6.4, Albumin 3.1L 07/17/21 05:51: Glucometer 325H 07/17/21 11:36: Glucometer 390H 07/17/21 16:33: Glucometer 347H Microbiology 07/15/21 Blood Culture - Preliminary, Resulted No growth 07/15/21 Urine Culture - Final, Complete Morganella morganii Assessment/Plan Assessment/Plan (1) Acute and chronic respiratory failure Status: Resolved Assessment & Plan: - Patient titrated off bipap, on NC 3-4 LPM this AM, MAT protocol, Steroids 07/17: Continue to titrate oxygen as tolerated, MAT protocol (2) COPD with acute exacerbation Status: Acute (3) COVID-19 Status: Acute (4) Type 2 diabetes mellitus with complication Status: Chronic Assessment & Plan: - Continue home insulin, Accuchecks, SSI, A1c pending 07/17: Increase levemir 20 BID (5) Primary hypertension Status: Chronic Assessment & Plan: - Restarted home meds (6) Morbid obesity Status: Chronic (7) DVT prophylaxis Status: Acute Assessment & Plan: - OLVIN Vang MD Jul 17, 2021 19:49
[2021-07-17] MEDS: GABAPENTIN 300 MG (NEURONTIN) CAP PO SCH (20:39)
[2021-07-18] MEDS: RT-ALBUTEROL HFA 8.5 GM INHALER IH SCH ×6 (01:57→22:05)
[2021-07-18 03:18] VITALS: BP 127/83
[2021-07-18 06:12] LABS: BASOPHILS % (AUTO) 0 % (0-10); EOSINOPHILS % (AUTO) 0 % (0-10); HEMATOCRIT 39 % (35-52); HEMOGLOBIN 12.6 g/dL (11.5-16.0); LYMPHOCYTES # (AUTO) 1.1 10^3/uL (1.0-4.0); LYMPHOCYTES % (AUTO) 12 % (12-44); MEAN CORPUSCULAR HEMOGLOBIN 29 pg (25-34); MEAN CORPUSCULAR HGB CONC 32 g/dL (32-36); MEAN CORPUSCULAR VOLUME 90 fL (80-99); MEAN PLATELET VOLUME 9.1 fL (9.0-12.2); MONOCYTES # (AUTO) 1.3 10^3/uL (0.0-1.0); MONOCYTES % (AUTO) 14 % (0-12); NEUTROPHILS # (AUTO) 6.5 10^3/uL (1.8-7.8); NEUTROPHILS % (AUTO) 70 % (42-75); PLATELET COUNT 398 10^3/uL (130-400); WHITE BLOOD COUNT 9.2 10^3/uL (4.3-11.0)
[2021-07-18 06:29] LABS: POTASSIUM 4.7 MMOL/L (3.6-5.0)
[2021-07-18 06:30] LABS: CALCIUM 9.2 MG/DL (8.5-10.1)
[2021-07-18] MEDS: ENOXAPARIN 40 MG/0.4 ML (LOVENOX) SYR SC SCH ×2 (06:31→17:38)
[2021-07-18] MEDS: methylPREDNISolone 125 MG (Solu-MEDROL) VIAL IVP SCH (06:31)
[2021-07-18] MEDS: LEVOTHYROXINE 100 MCG (LEVOTHROID) TAB PO SCH (06:31)
[2021-07-18] MEDS: PIPERACILLIN/TAZOBACTAM (BULK) 4.5 GM in NS (IVPB) 100 ML IV SCH (06:31)
[2021-07-18] MEDS: guaiFENesin SYRUP 100 MG/5 ML 10 ML (ROBITUSSIN SF) PO PRN (06:32)
[2021-07-18 06:35] LABS: CREATININE SERUM 1.44 MG/DL (0.60-1.30)
[2021-07-18] MEDS: inSUlin ASPART (NovoLOG) 1 UNIT/0.01 ML (CHARGE PER UNIT) SC SCH ×6 (06:40→21:23)
[2021-07-18 08:00] VITALS: BP 147/65
[2021-07-18] MEDS: amLODIPine 5 MG (NORVASC) TAB PO SCH (08:27)
[2021-07-18] MEDS: lisINopril 10 MG (PRINIVIL) TABLET PO SCH (08:27)
--- NOTE | 2021-07-18 11:07 | Physical Therapy Evaluation ---
PT Evaluation-General Medical Diagnosis Admission Date Jul 15, 2021 at 15:02 Medical Diagnosis: covid 19, PE Onset Date: Jul 15, 2021 Therapy Diagnosis Therapy Diagnosis: impaired mobility, strength, endurance Height/Weight Height (Inches): 64.00 Weight (Pounds): 261 Precautions Precautions/Isolations: Airborne Isolation, Contact Isolation, Droplet Isolation, Fall Prevention Referral Physician: Jet Reason for Referral: Evaluation/Treatment Medical History Pertinent Medical History: Atrial Fib, COPD, DM, HTN, Neuropathy, Smoking Additional Medical History PMHx: Renal cell carcinoma Diabetes Hypertension Hyperlipidemia Atrial fibrillation COPD SurgHx: Cholecystectomy Appendectomy Hysterectomy Bladder sling and later removal Thyroidectomy 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 1-Ytefunvkqm-ayllrbs completes the activity by him/herself with no assistance from a helper. 5-Set-up or Clean-up Assistance-helper sets up or cleans up; patient completes activity. [place] assists only prior to or following the activity. 4-Supervision or Touching Assistance-helper provides verbal cues and/or touching/steadying and/or contact guard assistance as patient completes activity. Assistance may be provided throughout the activity or intermittently. 3-Partial/Moderate Assistance-helper does LESS THAN HALF the effort. [place] lifts, holds or supports trunk or limbs, but provides less than half the effort. 2-Substantial/Maximal Assistance-helper does MORE THAN HALF the effort. [place] lifts or holds trunk or limbs and provides more than half the effort. 1-Qpwrmoqee-gmtqqy does ALL the effort. Patient does none of the effort to complete the activity. Or, the assistance of 2 or more helpers is required for the patient to complete the activity. If activity was not attempted, code reason: 7-Patient Refused. 9-Not Applicable-not attempted and the patient did not perform the activity before the current illness, exacerbation or injury. 10-Not Attempted due to Environmental Limitations-(lack of equipment, weather restraints, etc.). 88-Not Attempted due to Medical Conditions or Safety Concerns. Bed Mobility: 6 Transfers (B,C,W/C): 1 Prior Devices Use: Motorized wheelchair PT Evaluation-Current Subjective Patient in bed pre tx, agrees to PT, has no complaints of pain. Patient normally uses a dina to transfer from bed to at home. She has a right hip amputation and her left knee had a TKA but it got infected and had the hardware removed, nothing is there now and she cannot bear weight on it. Pt/Family Goals to be independent at home Objective Patient Orientation: Person, Place, Situation Attachments: Oxygen, Marte Catheter Sensory Vision: Wears Glasses Hearing: Functional Transfers Roll Left to Right (QC): 6 Sit to Lying (QC): 3 Lying to Sitting/Side of Bed(Q: 3 Patient is able to sit on the side of the bed for several minutes and performs a few exercises before needing to lay back down. Patient states she will call somebody to get her manual WC here so she can get out of bed. Balance Sitting Static: Fair Sitting Dynamic: Fair Treatment LLE ankle pumps x20, BUE exercises x20 (vertical press, horizontal press, bicep curls, sitting pushups) Assessment/Needs Patient in bed post tx with nurse call, phone, tray, all needs met. Patient is able to scoot herself up in bed using her arms and cues for direction. Patient has impaired mobility, strength, endurance. Min assist for supine <-> sit. Rehab Potential: Guarded PT Forensic Computer Examiner Goals Forensic Computer Examiner Goals PT Retirement Goals Time Frame: Jul 25, 2021 Roll Left & Right (QC): 6 Sit to Lying (QC): 6 Lying-Sitting on Side/Bed(QC): 6 PT Plan Problem List Problem List: Activity Tolerance, Functional Strength, Safety, Balance, Transfer, Bed Mobility, ROM Treatment/Plan Treatment Plan: Continue Plan of Care Treatment Plan: Bed Mobility, Education, Functional Activity Yesenia, Functional Strength, Gait, Safety, Therapeutic Exercise, Transfers Treatment Duration: Jul 25, 2021 Frequency: 6 times per week Estimated Hrs Per Day: .25 hour per day Patient and/or Family Agrees t: Yes Safety Risks/Education Patient Education: Correct Positioning, Safety Issues Teaching Recipient: Patient Teaching Methods: Demonstration, Discussion Response to Teaching: Reinforcement Needed Discharge Recommendations Plan Patient will perform bed mobility and transfer training, balance and endurance training, functional strengthening, and education, to improve functional mobility and independence at home. Therapy Discharge Recommendati: 24 Hour Supervision Time/GCodes Time In: 1040 Time Out: 1052 Total Billed Treatment Time: 12 Total Billed Treatment 1 visit ESTUARDO MURRAY PT Jul 18, 2021 11:07
[2021-07-18 12:00] VITALS: BP 167/85
[2021-07-18] MEDS ORDERED: inSUlin (REGULAR) HUMAN 1 UNIT/0.01 ML (CHARGE PER UNIT) SC SCH (12:00)
--- NOTE | 2021-07-18 13:23 | Progress Note ---
Subjective Subjective/Events-last exam Patient states that she is feeling much better. Tolerating PO diet. No BM in the last 2 days Review of Systems Pulmonary: Dyspnea, Cough Cardiovascular: No: Chest Pain, Palpitations, Edema Gastrointestinal: No: Nausea, Vomiting, Abdominal Pain, Diarrhea, Constipation Neurological: Weakness, Incoordination Focused Exam Lactate Level 07/15/21 13:59: Lactic Acid Level 1.24 Objective Exam Last Set of Vital Signs Vital Signs Date Time Temp Pulse Resp B/P (MAP) Pulse Ox O2 Delivery O2 Flow Rate FiO2 07/18/21 10:20 96 High Flow N/C 6.00 07/18/21 08:00 35.8 87 22 147/65 (92) Capillary Refill : Less Than 3 Seconds I&O Intake and Output 07/18/21 00:00 Intake Total 1700 ml Output Total 1700 ml Balance 0 ml Intake Oral 1700 ml Output Urine Total 1700 ml General: Alert, Oriented X3, Mild Distress Lungs: Clear to Auscultation, Normal Air Movement Heart: Regular Rate, No Murmurs Abdomen: Normal Bowel Sounds, Soft, No Tenderness, No Masses Extremities: No Edema, No Tenderness/Swelling Neuro: Normal Speech Psych/Mental Status: Mental Status NL, Mood NL Results/Procedures Lab Laboratory Tests 07/17/21 16:33: Glucometer 347H 07/17/21 20:24: Glucometer 389H 07/18/21 06:04: White Blood Count 9.2, Red Blood Count 4.36, Hemoglobin 12.6, Hematocrit 39, Mean Corpuscular Volume 90, Mean Corpuscular Hemoglobin 29, Mean Corpuscular Hemoglobin Concent 32, Red Cell Distribution Width 16.4H, Platelet Count 398, Mean Platelet Volume 9.1, Immature Granulocyte % (Auto) 4, Neutrophils (%) (Auto) 70, Lymphocytes (%) (Auto) 12, Monocytes (%) (Auto) 14H, Eosinophils (%) (Auto) 0, Basophils (%) (Auto) 0, Neutrophils # (Auto) 6.5, Lymphocytes # (Auto) 1.1, Monocytes # (Auto) 1.3H, Eosinophils # (Auto) 0.0, Basophils # (Auto) 0.0, Immature Granulocyte # (Auto) 0.4H, Sodium Level 130L, Potassium Level 4.7, Chloride Level 89L, Carbon Dioxide Level 28, Anion Gap 13, Blood Urea Nitrogen 25H, Creatinine 1.44H, Estimat Glomerular Filtration Rate 36, BUN/Creatinine Ratio 17, Glucose Level 203H, Calcium Level 9.2 07/18/21 11:32: Glucometer 348H Microbiology 07/15/21 Blood Culture - Preliminary, Resulted No growth 07/15/21 Urine Culture - Final, Complete Morganella morganii Assessment/Plan Assessment/Plan (1) Acute and chronic respiratory failure Status: Resolved Assessment & Plan: - Patient titrated off bipap, on NC 3-4 LPM this AM, MAT protocol, Steroids 07/17: Continue to titrate oxygen as tolerated, MAT protocol 07/18: Continue to titrate (2) COPD with acute exacerbation Status: Acute (3) COVID-19 Status: Acute (4) UTI (urinary tract infection) Status: Acute Assessment & Plan: 07/18: Completed 3 days treatment with Zosyn, push PO hydration Qualifiers: Qualified Codes: N30.00 - Acute cystitis without hematuria (5) Type 2 diabetes mellitus with complication Status: Chronic Assessment & Plan: - Continue home insulin, Accuchecks, SSI, A1c pending 07/17: Increase levemir 20 BID 07/18: Blood sugars continue to be elevated, added meal time insulin (6) Primary hypertension Status: Chronic Assessment & Plan: - Restarted home meds 07/18: Increased Norvasc and holding lisinopril due to EAN (7) Acute kidney failure Status: Acute Assessment & Plan: - Push PO hydration, trend BMP (8) Morbid obesity Status: Chronic (9) DVT prophylaxis Status: Acute Assessment & Plan: - OLVIN Vang MD Jul 18, 2021 13:23
[2021-07-18] MEDS ORDERED: amLODIPine 5 MG (NORVASC) TAB PO NR (15:20)
[2021-07-18 16:05] VITALS: BP 164/82
[2021-07-18 20:00] VITALS: BP 158/76
[2021-07-18] MEDS: GABAPENTIN 300 MG (NEURONTIN) CAP PO SCH (21:21)
[2021-07-19] MEDS: RT-ALBUTEROL HFA 8.5 GM INHALER IH SCH ×6 (02:50→21:50)
[2021-07-19 04:59] VITALS: BP 138/81
[2021-07-19] MEDS: predniSONE 20 MG TAB PO SCH (06:04)
[2021-07-19] MEDS: ENOXAPARIN 40 MG/0.4 ML (LOVENOX) SYR SC SCH ×2 (06:04→18:01)
[2021-07-19] MEDS: LEVOTHYROXINE 100 MCG (LEVOTHROID) TAB PO SCH (06:04)
[2021-07-19] MEDS: inSUlin ASPART (NovoLOG) 1 UNIT/0.01 ML (CHARGE PER UNIT) SC SCH ×7 (06:05→22:27)
[2021-07-19 06:21] LABS: BASOPHILS % (AUTO) 0 % (0-10); EOSINOPHILS % (AUTO) 0 % (0-10); HEMATOCRIT 37 % (35-52); HEMOGLOBIN 11.8 g/dL (11.5-16.0); LYMPHOCYTES # (AUTO) 1.3 10^3/uL (1.0-4.0); LYMPHOCYTES % (AUTO) 16 % (12-44); MEAN CORPUSCULAR HEMOGLOBIN 29 pg (25-34); MEAN CORPUSCULAR HGB CONC 32 g/dL (32-36); MEAN CORPUSCULAR VOLUME 90 fL (80-99); MEAN PLATELET VOLUME 9.1 fL (9.0-12.2); MONOCYTES # (AUTO) 1.1 10^3/uL (0.0-1.0); MONOCYTES % (AUTO) 14 % (0-12); NEUTROPHILS # (AUTO) 5.2 10^3/uL (1.8-7.8); NEUTROPHILS % (AUTO) 66 % (42-75); PLATELET COUNT 366 10^3/uL (130-400); WHITE BLOOD COUNT 7.9 10^3/uL (4.3-11.0)
[2021-07-19 06:34] LABS: ALBUMIN 3.3 GM/DL (3.2-4.5); POTASSIUM 4.5 MMOL/L (3.6-5.0)
[2021-07-19 06:36] LABS: CALCIUM 9.1 MG/DL (8.5-10.1)
[2021-07-19 06:37] LABS: TOTAL PROTEIN 6.3 GM/DL (6.4-8.2)
[2021-07-19 06:39] LABS: BILIRUBIN,TOTAL 0.6 MG/DL (0.1-1.0)
[2021-07-19 06:40] LABS: CREATININE SERUM 1.28 MG/DL (0.60-1.30)
[2021-07-19 08:00] VITALS: BP 174/86
[2021-07-19] MEDS: amLODIPine 5 MG (NORVASC) TAB PO SCH (09:13)
[2021-07-19 12:00] VITALS: BP 139/78
--- NOTE | 2021-07-19 13:58 | Physical Therapy Daily Note ---
PT Daily Note-Current Subjective Patient in bed pre tx, agrees to PT, has unrated but severe pain in low back and side, nurse notified about the pain. Appearance Patient in bed post tx with nurse call, phone, tray, all needs met. Mental Status Patient Orientation: Person, Place, Situation Attachments: Oxygen, Marte Catheter Transfers SCALE: Activities may be completed with or without assistive devices. 3-Kflvcbvxca-lupunfn completes the activity by him/herself with no assistance from a helper. 5-Set-up or Clean-up Assistance-helper sets up or cleans up; patient completes activity. [place] assists only prior to or following the activity. 4-Supervision or Touching Assistance-helper provides verbal cues and/or touching/steadying and/or contact guard assistance as patient completes activity. Assistance may be provided throughout the activity or intermittently. 3-Partial/Moderate Assistance-helper does LESS THAN HALF the effort. [place] lifts, holds or supports trunk or limbs, but provides less than half the effort. 2-Substantial/Maximal Assistance-helper does MORE THAN HALF the effort. [place] lifts or holds trunk or limbs and provides more than half the effort. 3-Qhzrjyanf-duhhlc does ALL the effort. Patient does none of the effort to c omplete the activity. Or, the assistance of 2 or more helpers is required for the patient to complete the activity. If activity was not attempted, code reason: 7-Patient Refused. 9-Not Applicable-not attempted and the patient did not perform the activity before the current illness, exacerbation or injury. 10-Not Attempted due to Environmental Limitations-(lack of equipment, weather restraints, etc.). 88-Not Attempted due to Medical Conditions or Safety Concerns. Roll Left & Right (QC): 4 Sit to Lying (QC): 4 Lying to Sitting/Side of Bed(Q: 4 Exercises Seated Therapy Exercises: Ankle pumps, Long arc quads, Hip flexion Seated Reps: 10 (LLE only) seated BUE exercises x10 (vertical press, abduction, bicep curls, seated pushups) Treatments LE and UE strengthening Assessment Current Status: Poor Progress Patient had a lot of pain, SOB with activity PT Correction Goals Transportation Analyst Goals PT Correction Goals Time Frame: Jul 25, 2021 Roll Left & Right (QC): 6 Sit to Lying (QC): 6 Lying-Sitting on Side/Bed(QC): 6 PT Plan Problem List Problem List: Activity Tolerance, Functional Strength, Safety, Balance, Gait, Transfer, Bed Mobility, ROM Treatment/Plan Treatment Plan: Continue Plan of Care Treatment Plan: Bed Mobility, Education, Functional Activity Yesenia, Functional Strength, Gait, Safety, Therapeutic Exercise, Transfers Treatment Duration: Jul 25, 2021 Frequency: 6 times per week Estimated Hrs Per Day: .25 hour per day Patient and/or Family Agrees t: Yes Safety Risks/Education Patient Education: Correct Positioning, Safety Issues Teaching Recipient: Patient Teaching Methods: Demonstration, Discussion Response to Teaching: Reinforcement Needed Time/GCodes Time In: 1335 Time Out: 1345 Total Billed Treatment Time: 10 Total Billed Treatment 1 visit EX ESTUARDO CAPPS PT Jul 19, 2021 13:58
[2021-07-19 15:38] VITALS: BP 154/82
--- NOTE | 2021-07-19 17:40 | Progress Note ---
Subjective Subjective/Events-last exam Patient doing well. She is at baseline oxygen. Awaiting placement Review of Systems General: Fatigue Pulmonary: No Dyspnea, No Cough Cardiovascular: No: Chest Pain, Palpitations, Edema Gastrointestinal: No: Nausea, Vomiting, Abdominal Pain, Diarrhea, Constipation Neurological: Weakness, Incoordination Objective Exam Last Set of Vital Signs Vital Signs Date Time Temp Pulse Resp B/P (MAP) Pulse Ox O2 Delivery O2 Flow Rate FiO2 07/19/21 15:38 36.2 109 22 154/82 (106) 90 High Flow N/C 3.00 Capillary Refill : Less Than 3 Seconds I&O Intake and Output 07/19/21 00:00 Intake Total 4010 ml Output Total 4275 ml Balance -265 ml Intake Oral 3170 ml IV Total 840 ml Output Urine Total 4275 ml General: Alert, Oriented X3, Cooperative, No Acute Distress HEENT: Mucous Memb Moist/[place] Lungs: Clear to Auscultation, Normal Air Movement Heart: Regular Rate, No Murmurs Abdomen: Normal Bowel Sounds, Soft, No Tenderness, No Masses Extremities: No Edema, No Tenderness/Swelling Skin: No Rashes Neuro: Normal Speech Psych/Mental Status: Mental Status NL, Mood NL Results/Procedures Lab Laboratory Tests 07/18/21 20:03: Glucometer 315H 07/19/21 05:55: Sodium Level 131L, Potassium Level 4.5, Chloride Level 92L, Carbon Dioxide Level 28, Anion Gap 11, Blood Urea Nitrogen 31H, Creatinine 1.28, Estimat Glomerular Filtration Rate 41, BUN/Creatinine Ratio 24, Glucose Level 168H, Calcium Level 9.1, Corrected Calcium 9.7, Total Bilirubin 0.6, Aspartate Amino Transf (AST/SGOT) 22, Alanine Aminotransferase (ALT/SGPT) 19, Alkaline Phosphatase 54, Total Protein 6.3L, Albumin 3.3 07/19/21 06:08: White Blood Count 7.9, Red Blood Count 4.12, Hemoglobin 11.8, Hematocrit 37, Mean Corpuscular Volume 90, Mean Corpuscular Hemoglobin 29, Mean Corpuscular Hemoglobin Concent 32, Red Cell Distribution Width 16.2H, Platelet Count 366, Mean Platelet Volume 9.1, Immature Granulocyte % (Auto) 4, Neutrophils (%) (Auto) 66, Lymphocytes (%) (Auto) 16, Monocytes (%) (Auto) 14H, Eosinophils (%) (Auto) 0, Basophils (%) (Auto) 0, Neutrophils # (Auto) 5.2, Lymphocytes # (Auto) 1.3, Monocytes # (Auto) 1.1H, Eosinophils # (Auto) 0.0, Basophils # (Auto) 0.0, Immature Granulocyte # (Auto) 0.3H 07/19/21 12:18: Glucometer 361H 07/19/21 15:36: Glucometer 337H Microbiology 07/15/21 Blood Culture - Preliminary, Resulted No growth 07/15/21 Urine Culture - Final, Complete Morganella morganii Assessment/Plan Assessment/Plan (1) Acute and chronic respiratory failure Status: Resolved Assessment & Plan: - Patient titrated off bipap, on NC 3-4 LPM this AM, MAT protocol, Steroids 07/17: Continue to titrate oxygen as tolerated, MAT protocol 07/18: Continue to titrate 07/19: Patient at baseline oxygen, awaiting placement to SNF because care workers all have Covid (2) COPD with acute exacerbation Status: Acute (3) COVID-19 Status: Acute (4) UTI (urinary tract infection) Status: Resolved Assessment & Plan: 07/18: Completed 3 days treatment with Zosyn, push PO hydration Qualifiers: Qualified Codes: N30.00 - Acute cystitis without hematuria (5) Type 2 diabetes mellitus with complication Status: Chronic Assessment & Plan: - Continue home insulin, Accuchecks, SSI, A1c pending 07/17: Increase levemir 20 BID 07/18: Blood sugars continue to be elevated, added meal time insulin (6) Primary hypertension Status: Chronic Assessment & Plan: - Restarted home meds 07/18: Increased Norvasc and holding lisinopril due to EAN (7) Acute kidney failure Status: Resolved Assessment & Plan: - Push PO hydration, trend BMP (8) Morbid obesity Status: Chronic (9) DVT prophylaxis Status: Acute Assessment & Plan: - OLVIN Vang MD Jul 19, 2021 17:40
[2021-07-19 20:09] VITALS: BP 156/91
[2021-07-19] MEDS: GABAPENTIN 300 MG (NEURONTIN) CAP PO SCH (22:29)
[2021-07-19 23:49] VITALS: BP 140/90
[2021-07-20] MEDS: RT-ALBUTEROL HFA 8.5 GM INHALER IH SCH ×6 (02:30→22:31)
[2021-07-20 04:00] VITALS: BP 140/93
[2021-07-20] MEDS: LEVOTHYROXINE 100 MCG (LEVOTHROID) TAB PO SCH (06:12)
[2021-07-20] MEDS: ENOXAPARIN 40 MG/0.4 ML (LOVENOX) SYR SC SCH ×3 (06:13→22:21)
[2021-07-20] MEDS: inSUlin ASPART (NovoLOG) 1 UNIT/0.01 ML (CHARGE PER UNIT) SC SCH ×7 (06:13→22:24)
[2021-07-20] MEDS: predniSONE 20 MG TAB PO SCH (06:13)
[2021-07-20 06:32] LABS: POTASSIUM 4.3 MMOL/L (3.6-5.0)
[2021-07-20 06:33] LABS: CALCIUM 9.4 MG/DL (8.5-10.1)
[2021-07-20 06:38] LABS: CREATININE SERUM 1.02 MG/DL (0.60-1.30)
[2021-07-20 08:22] VITALS: BP 164/81
[2021-07-20] MEDS: amLODIPine 5 MG (NORVASC) TAB PO SCH (09:20)
[2021-07-20 12:13] VITALS: BP 154/83
--- NOTE | 2021-07-20 12:23 | Physical Therapy Daily Note ---
PT Daily Note-Current Subjective Pt awake and agreeable. Reports she is able to get to the side of the bed by herself today. Transfers SCALE: Activities may be completed with or without assistive devices. 3-Hlbjydolou-oudfyig completes the activity by him/herself with no assistance from a helper. 5-Set-up or Clean-up Assistance-helper sets up or cleans up; patient completes activity. [place] assists only prior to or following the activity. 4-Supervision or Touching Assistance-helper provides verbal cues and/or touching/steadying and/or contact guard assistance as patient completes activity. Assistance may be provided throughout the activity or intermittently. 3-Partial/Moderate Assistance-helper does LESS THAN HALF the effort. [place] lifts, holds or supports trunk or limbs, but provides less than half the effort. 2-Substantial/Maximal Assistance-helper does MORE THAN HALF the effort. [place] lifts or holds trunk or limbs and provides more than half the effort. 4-Hktmwumei-wsaipd does ALL the effort. Patient does none of the effort to complete the activity. Or, the assistance of 2 or more helpers is required for the patient to complete the activity. If activity was not attempted, code reason: 7-Patient Refused. 9-Not Applicable-not attempted and the patient did not perform the activity before the current illness, exacerbation or injury. 10-Not Attempted due to Environmental Limitations-(lack of equipment, weather restraints, etc.). 88-Not Attempted due to Medical Conditions or Safety Concerns. Sit to Lying (QC): 6 Lying to Sitting/Side of Bed(Q: 6 worked seated balance at bedside including dynamic reaching and rotation Exercises seated ankle pumps, LAQ, overhead reach, shoulder horizontal abd/add, shoulder ER all x 10 reps Assessment Pt bed mobility improving. Came to sitting and back to supine (I). Required Max 2 to slide up in bed. PT Doll Repairer Goals Assisted Goals PT Assisted Goals Time Frame: Jul 25, 2021 Roll Left & Right (QC): 6 Sit to Lying (QC): 6 Lying-Sitting on Side/Bed(QC): 6 PT Plan Treatment/Plan Treatment Plan: Continue Plan of Care Treatment Plan: Bed Mobility, Education, Functional Activity Yesenia, Functional Strength, Gait, Safety, Therapeutic Exercise, Transfers Treatment Duration: Jul 25, 2021 Frequency: 6 times per week Estimated Hrs Per Day: .25 hour per day Patient and/or Family Agrees t: Yes Time/GCodes Time In: 1200 Time Out: 1215 Total Billed Treatment Time: 15 Total Billed Treatment visit, ex 15 min GUSTAVO THOMPSON PT Jul 20, 2021 12:23
--- NOTE | 2021-07-20 13:07 | Progress Note - Hospitalist ---
Subjective HPI/CC On Admission Date Seen by Provider: Jul 20, 2021 Time Seen by Provider: 13:05 Subjective/Events-last exam Patient feeling better voicing no complaints no chest pain or shortness of breath. Objective Exam Vital Signs Vital Signs Date Time Temp Pulse Resp B/P (MAP) Pulse Ox O2 Delivery O2 Flow Rate FiO2 07/20/21 12:13 36.2 113 20 154/83 (106) 96 High Flow N/C 3.00 Capillary Refill : Less Than 3 Seconds General Appearance: No Apparent Distress Respiratory: Chest Non Tender, No Accessory Muscle Use, No Respiratory Distress, Other (Coarse breath sounds bilaterally mild expiratory wheezing) Cardiovascular: No Gallop, No Murmur Results/Procedures Lab Laboratory Tests 07/20/21 05:50 Patient resulted labs reviewed. Assessment/Plan Assessment and Plan Assess & Plan/Chief Complaint (1) Acute and chronic respiratory failure Status: Resolved Assessment & Plan: - Patient titrated off bipap, on NC 3-4 LPM this AM, MAT protocol, Steroids 07/17: Continue to titrate oxygen as tolerated, MAT protocol 07/18: Continue to titrate 07/19: Patient at baseline oxygen, awaiting placement to SNF because care workers all have Covid 07/20: Doing well just awaiting transfer to senior care facility. (2) COPD with acute exacerbation Status: Acute (3) COVID-19 Status: Acute (4) UTI (urinary tract infection) Status: Resolved Assessment & Plan: 07/18: Completed 3 days treatment with Zosyn, push PO hydration Qualifiers: Qualified Codes: N30.00 - Acute cystitis without hematuria (5) Type 2 diabetes mellitus with complication Status: Chronic Assessment & Plan: - Continue home insulin, Accuchecks, SSI, A1c pending 07/17: Increase levemir 20 BID 07/18: Blood sugars continue to be elevated, added meal time insulin (6) Primary hypertension Status: Chronic Assessment & Plan: - Restarted home meds 07/18: Increased Norvasc and holding lisinopril due to EAN (7) Acute kidney failure Status: Resolved Assessment & Plan: - Push PO hydration, trend BMP (8) Morbid obesity Status: Chronic (9) DVT prophylaxis Status: Acute Assessment & Plan: - DENVER Matos MD Jul 20, 2021 13:07
[2021-07-20] MEDS ORDERED: polyethylene glycoL POWDER 17 GM (MIRALAX) PACK PO ONE (15:15)
[2021-07-20 16:00] VITALS: BP 170/83
[2021-07-20 20:39] VITALS: BP 170/84
[2021-07-20] MEDS: GABAPENTIN 300 MG (NEURONTIN) CAP PO SCH (22:22)
[2021-07-20] MEDS: polyethylene glycoL POWDER 17 GM (MIRALAX) PACK PO SCH (22:22)
[2021-07-20] MEDS: SENNA W/DOCUSATE (SENOKOT S) TABLET PO SCH (22:22)
[2021-07-21] MEDS: RT-ALBUTEROL HFA 8.5 GM INHALER IH SCH ×6 (03:15→22:17)
[2021-07-21 04:00] VITALS: BP 164/79
[2021-07-21] MEDS: predniSONE 20 MG TAB PO SCH (06:15)
[2021-07-21] MEDS: LEVOTHYROXINE 100 MCG (LEVOTHROID) TAB PO SCH (06:15)
[2021-07-21] MEDS: ENOXAPARIN 40 MG/0.4 ML (LOVENOX) SYR SC SCH ×2 (06:15→22:34)
[2021-07-21] MEDS: inSUlin ASPART (NovoLOG) 1 UNIT/0.01 ML (CHARGE PER UNIT) SC SCH ×7 (06:16→22:36)
[2021-07-21] MEDS: SENNA W/DOCUSATE (SENOKOT S) TABLET PO SCH ×2 (07:47→22:35)
[2021-07-21] MEDS: guaiFENesin SYRUP 100 MG/5 ML 10 ML (ROBITUSSIN SF) PO PRN (07:48)
[2021-07-21] MEDS: amLODIPine 5 MG (NORVASC) TAB PO SCH (07:48)
[2021-07-21 07:51] VITALS: BP 133/68
[2021-07-21 09:02] VITALS: BP 133/68
[2021-07-21 12:49] VITALS: BP 138/83
[2021-07-21 15:35] VITALS: BP 131/65
[2021-07-21 20:01] VITALS: BP 139/80
[2021-07-21] MEDS: GABAPENTIN 300 MG (NEURONTIN) CAP PO SCH (22:35)
[2021-07-21] MEDS: polyethylene glycoL POWDER 17 GM (MIRALAX) PACK PO SCH (22:36)
[2021-07-22] VITALS (7 sets, daily range): BP systolic 119–148; BP diastolic 65–89
[2021-07-22] MEDS: RT-ALBUTEROL HFA 8.5 GM INHALER IH SCH ×6 (02:16→22:09)
[2021-07-22] MEDS: LEVOTHYROXINE 100 MCG (LEVOTHROID) TAB PO SCH (07:21)
[2021-07-22] MEDS: inSUlin ASPART (NovoLOG) 1 UNIT/0.01 ML (CHARGE PER UNIT) SC SCH ×7 (07:21→22:03)
[2021-07-22] MEDS: predniSONE 20 MG TAB PO SCH (07:21)
[2021-07-22] MEDS: amLODIPine 5 MG (NORVASC) TAB PO SCH (08:47)
[2021-07-22] MEDS: SENNA W/DOCUSATE (SENOKOT S) TABLET PO SCH ×2 (08:47→22:04)
[2021-07-22 09:51] LABS: POTASSIUM 4.8 MMOL/L (3.6-5.0)
[2021-07-22 09:52] LABS: CALCIUM 9.7 MG/DL (8.5-10.1)
[2021-07-22 09:57] LABS: CREATININE SERUM 1.19 MG/DL (0.60-1.30)
--- NOTE | 2021-07-22 12:09 | Physical Therapy Daily Note ---
PT Daily Note-Current Subjective Pt asleep in bed upon arrival but wakes and agrees to PT. Says she likes to do therapy. Pain Numeric Pain Scale: 0-No Pain Mental Status Patient Orientation: Normal For Age Attachments: Acharya Catheter Transfers SCALE: Activities may be completed with or without assistive devices. 4-Cjjzfpjmyw-sgsyzyf completes the activity by him/herself with no assistance from a helper. 5-Set-up or Clean-up Assistance-helper sets up or cleans up; patient completes activity. [place] assists only prior to or following the activity. 4-Supervision or Touching Assistance-helper provides verbal cues and/or touching/steadying and/or contact guard assistance as patient completes activity. Assistance may be provided throughout the activity or intermittently. 3-Partial/Moderate Assistance-helper does LESS THAN HALF the effort. [place] lifts, holds or supports trunk or limbs, but provides less than half the effort. 2-Substantial/Maximal Assistance-helper does MORE THAN HALF the effort. [place] lifts or holds trunk or limbs and provides more than half the effort. 6-Ybltynwmw-bbtnzr does ALL the effort. Patient does none of the effort to complete the activity. Or, the assistance of 2 or more helpers is required for the patient to complete the activity. If activity was not attempted, code reason: 7-Patient Refused. 9-Not Applicable-not attempted and the patient did not perform the activity before the current illness, exacerbation or injury. 10-Not Attempted due to Environmental Limitations-(lack of equipment, weather restraints, etc.). 88-Not Attempted due to Medical Conditions or Safety Concerns. Roll Left & Right (QC): 5 Sit to Lying (QC): 5 Lying to Sitting/Side of Bed(Q: 6 Gait Training Does the Patient Walk?: No and Walking Goal NOT indicated Exercises Supine Ex: Ankle pumps, Quad Set, Rolling, Heel Slides, Scooting Supine Reps: 10 Seated Therapy Exercises: Long arc quads Seated Reps: 10 Treatments Pt able to complete dynamic sitting activity at EOB and able to complete supine and seated exs well. Call light nearby and all needs met as PT departs. Assessment Current Status: Good Progress Requires cues for foot placement when going from sitting EOB to supine to not pull on acharya cath. PT Welder Repair Goals Welder Repair Goals PT Welder Repair Goals Time Frame: Jul 25, 2021 Roll Left & Right (QC): 6 Sit to Lying (QC): 6 Lying-Sitting on Side/Bed(QC): 6 PT Plan Problem List Problem List: Activity Tolerance, Functional Strength Treatment/Plan Treatment Plan: Continue Plan of Care Treatment Plan: Bed Mobility, Education, Functional Activity Yesenia, Functional Strength, Gait, Safety, Therapeutic Exercise, Transfers Treatment Duration: Jul 25, 2021 Frequency: 6 times per week Estimated Hrs Per Day: .25 hour per day Patient and/or Family Agrees t: Yes Safety Risks/Education Patient Education: Correct Positioning Teaching Recipient: Patient Teaching Methods: Discussion Response to Teaching: Return Demonstration Time/GCodes Time In: 1007 Time Out: 1021 Total Billed Treatment Time: 14 Total Billed Treatment 1, Ex MARTHA COBB PTA Jul 22, 2021 12:09
[2021-07-22] MEDS: ENOXAPARIN 40 MG/0.4 ML (LOVENOX) SYR SC SCH (17:53)
[2021-07-22] MEDS: GABAPENTIN 300 MG (NEURONTIN) CAP PO SCH (22:05)
[2021-07-22] MEDS: polyethylene glycoL POWDER 17 GM (MIRALAX) PACK PO SCH (22:05)
--- NOTE | 2021-07-22 22:06 | Progress Note ---
Subjective Subjective/Events-last exam Afebrile, feeling pretty well. Can't go home due to her home care workers being out with COVID. Objective Exam Last Set of Vital Signs Vital Signs Date Time Temp Pulse Resp B/P (MAP) Pulse Ox O2 Delivery O2 Flow Rate FiO2 07/22/21 20:12 36.1 89 22 148/75 (99) 91 High Flow N/C 1.00 07/21/21 09:02 32 Capillary Refill : Less Than 3 Seconds I&O Intake and Output 07/21/21 23:59 Intake Total 2030 ml Output Total 2800 ml Balance -770 ml Intake Oral 2030 ml Output Urine Total 2800 ml # Bowel Movements 1 General: Alert, No Acute Distress Lungs: Clear to Auscultation, Normal Air Movement Heart: Regular Rate, No Murmurs Psych/Mental Status: Mood NL Results/Procedures Lab Laboratory Tests 07/22/21 06:56: Glucometer 187H 07/22/21 09:30: Sodium Level 132L, Potassium Level 4.8, Chloride Level 96L, Carbon Dioxide Level 25, Anion Gap 11, Blood Urea Nitrogen 30H, Creatinine 1.19, Estimat Glomerular F iltration Rate 45, BUN/Creatinine Ratio 25, Glucose Level 161H, Calcium Level 9.7 07/22/21 11:18: Glucometer 226H 07/22/21 15:40: Glucometer 220H 07/22/21 20:16: Glucometer 234H Microbiology 07/15/21 Blood Culture - Final, Complete No growth 07/15/21 Urine Culture - Final, Complete Morganella morganii Assessment/Plan Assessment/Plan (1) Acute and chronic respiratory failure Status: Resolved Assessment & Plan: - Patient titrated off bipap, on NC 3-4 LPM this AM, MAT protocol, Steroids 07/17: Continue to titrate oxygen as tolerated, MAT protocol 07/18: Continue to titrate 07/19: Patient at baseline oxygen, awaiting placement to SNF because care workers all have Covid 07/22- SNF won't accept until 14 days after COVID. (2) COPD with acute exacerbation Status: Acute Assessment & Plan: Resolving, is on prednisone taper. (3) COVID-19 Status: Acute (4) UTI (urinary tract infection) Status: Resolved Assessment & Plan: 07/18: Completed 3 days treatment with Zosyn, push PO hydration Qualifiers: Qualified Codes: N30.00 - Acute cystitis without hematuria (5) Type 2 diabetes mellitus with complication Status: Chronic Assessment & Plan: - Continue home insulin, Accuchecks, SSI, A1c pending 07/17: Increase levemir 20 BID 07/18: Blood sugars continue to be elevated, added meal time insulin (6) Primary hypertension Status: Chronic Assessment & Plan: - Restarted home meds 07/18: Increased Norvasc and holding lisinopril due to EAN (7) Acute kidney failure Status: Resolved Assessment & Plan: - Push PO hydration, trend BMP (8) Morbid obesity Status: Chronic (9) DVT prophylaxis Status: Acute Assessment & Plan: - LoveJULIENNE Alexander MD Jul 22, 2021 22:06
[2021-07-23 00:46] VITALS: BP 141/77
[2021-07-23] MEDS: RT-ALBUTEROL HFA 8.5 GM INHALER IH SCH ×4 (02:32→15:08)
[2021-07-23 04:53] VITALS: BP 131/62
[2021-07-23] MEDS: ENOXAPARIN 40 MG/0.4 ML (LOVENOX) SYR SC SCH ×2 (05:58→18:03)
[2021-07-23] MEDS: inSUlin ASPART (NovoLOG) 1 UNIT/0.01 ML (CHARGE PER UNIT) SC SCH ×7 (05:58→21:17)
[2021-07-23] MEDS: LEVOTHYROXINE 100 MCG (LEVOTHROID) TAB PO SCH (05:59)
[2021-07-23] MEDS: predniSONE 20 MG TAB PO SCH (05:59)
[2021-07-23] MEDS: amLODIPine 5 MG (NORVASC) TAB PO SCH (08:22)
[2021-07-23] MEDS: SENNA W/DOCUSATE (SENOKOT S) TABLET PO SCH ×2 (08:22→21:17)
[2021-07-23 08:25] VITALS: BP 177/78
--- NOTE | 2021-07-23 10:04 | Physical Therapy Daily Note ---
PT Daily Note-Current Subjective Patient lying supine in bed upon PT arrival, agreeable to treatment. Patient reports pain at 5/10 in her left knee Mental Status Attachments: Marte Catheter, IV Transfers SCALE: Activities may be completed with or without assistive devices. 7-Pwfizprlic-eifgxmz completes the activity by him/herself with no assistance from a helper. 5-Set-up or Clean-up Assistance-helper sets up or cleans up; patient completes activity. [place] assists only prior to or following the activity. 4-Supervision or Touching Assistance-helper provides verbal cues and/or touching/steadying and/or contact guard assistance as patient completes acti vity. Assistance may be provided throughout the activity or intermittently. 3-Partial/Moderate Assistance-helper does LESS THAN HALF the effort. [place] lifts, holds or supports trunk or limbs, but provides less than half the effort. 2-Substantial/Maximal Assistance-helper does MORE THAN HALF the effort. [place] lifts or holds trunk or limbs and provides more than half the effort. 7-Utgfqugoy-bagxqn does ALL the effort. Patient does none of the effort to complete the activity. Or, the assistance of 2 or more helpers is required for the patient to complete the activity. If activity was not attempted, code reason: 7-Patient Refused. 9-Not Applicable-not attempted and the patient did not perform the activity before the current illness, exacerbation or injury. 10-Not Attempted due to Environmental Limitations-(lack of equipment, weather restraints, etc.). 88-Not Attempted due to Medical Conditions or Safety Concerns. Roll Left & Right (QC): 3 Sit to Lying (QC): 3 Lying to Sitting/Side of Bed(Q: 3 Gait Training Does the Patient Walk?: No and Walking Goal NOT indicated Exercises Supine Ex: Ankle pumps, Quad Set, Glut sets, Heel Slides, Short Arc Quads, Straight leg raise, Hip abd/add Supine Reps: 20 Treatments Patient performed transfer training to edge of bed and dynamic sitting activities with reaching with bilateral UEs to engage and strengthen core musculature. Assessment Current Status: Fair Progress Patient tolerated treatment fair with need for short, frequent rest breaks. Patient performs LE ther ex as listed above. Patient performs transfers to the edge of bed with min A. Patient performed dynamic sitting balance with reaching of each UE in various planes to strengthen and train core sitting musculature. Patient in bed post treatment with all needs met, nursing notified, call light in reach. Patient lying on right side per nursing request with pillow wedged under gluts and lumbar region for support. PT Plant Taxonomy Teacher Goals Plant Taxonomy Teacher Goals PT Nursing Home Goals Time Frame: Jul 25, 2021 Roll Left & Right (QC): 6 Sit to Lying (QC): 6 Lying-Sitting on Side/Bed(QC): 6 PT Plan Treatment/Plan Treatment Plan: Continue Plan of Care Treatment Plan: Bed Mobility, Education, Functional Activity Yesenia, Functional Strength, Gait, Safety, Therapeutic Exercise, Transfers Treatment Duration: Jul 25, 2021 Frequency: 6 times per week Estimated Hrs Per Day: .25 hour per day Patient and/or Family Agrees t: Yes Safety Risks/Education Patient Education: Transfer Techniques, Safety Issues Teaching Recipient: Patient Teaching Methods: Demonstration, Discussion Response to Teaching: Verbalize Understanding, Return Demonstration Time/GCodes Time In: 935 Time Out: 1000 Total Billed Treatment Time: 25 Total Billed Treatment Visit, ExEVANGELINA JOHN A PT Jul 23, 2021 10:04
[2021-07-23 11:04] VITALS: BP 137/64
[2021-07-23 16:24] VITALS: BP 137/76
--- NOTE | 2021-07-23 17:38 | Progress Note ---
Subjective Subjective/Events-last exam continues to feel quite well. Denies concerns. Objective Exam Last Set of Vital Signs Vital Signs Date Time Temp Pulse Resp B/P (MAP) Pulse Ox O2 Delivery O2 Flow Rate FiO2 07/23/21 16:24 36.8 97 18 137/76 (96) 93 Nasal Cannula 1.00 07/21/21 09:02 32 Capillary Refill : Less Than 3 Seconds I&O Intake and Output 07/23/21 00:00 Intake Total 2698 ml Output Total 2400 ml Balance 298 ml Intake Oral 2698 ml Output Urine Total 2400 ml # Bowel Movements 2 General: Alert, No Acute Distress Lungs: Other (no increased respiratory effort) Psych/Mental Status: Mood NL Results/Procedures Lab Laboratory Tests 07/22/21 20:16: Glucometer 234H 07/23/21 05:52: Glucometer 166H 07/23/21 11:02: Glucometer 236H 07/23/21 15:22: Glucometer 275H Microbiology 07/15/21 Blood Culture - Final, Complete No growth 07/15/21 Urine Culture - Final, Complete Morganella morganii Assessment/Plan Assessment/Plan (1) Acute and chronic respiratory failure Status: Resolved Assessment & Plan: - Patient titrated off bipap, on NC 3-4 LPM this AM, MAT protocol, Steroids 07/17: Continue to titrate oxygen as tolerated, MAT protocol 07/18: Continue to titrate 07/19: Patient at baseline oxygen, awaiting placement to SNF because care workers all have Covid 07/23- SNF won't accept until 21 days after COVID given ICU stay. (2) COPD with acute exacerbation Status: Acute Assessment & Plan: Resolving, is on prednisone taper. (3) COVID-19 Status: Acute (4) UTI (urinary tract infection) Status: Resolved Assessment & Plan: 07/18: Completed 3 days treatment with Zosyn, push PO hydration Qualifiers: Qualified Codes: N30.00 - Acute cystitis without hematuria (5) Type 2 diabetes mellitus with complication Status: Chronic Assessment & Plan: - Continue home insulin, Accuchecks, SSI, A1c pending 07/17: Increase levemir 20 BID 07/18: Blood sugars continue to be elevated, added meal time insulin (6) Primary hypertension Status: Chronic Assessment & Plan: - Restarted home meds 12/9: Increased Norvasc and holding lisinopril due to EAN (7) Acute kidney failure Status: Resolved Assessment & Plan: - Push PO hydration, trend BMP (8) Morbid obesity Status: Chronic (9) DVT prophylaxis Status: Acute Assessment & Plan: - JULIENNE Higuera MD Jul 23, 2021 17:38
[2021-07-23 19:16] VITALS: BP 132/60
[2021-07-23] MEDS: GABAPENTIN 300 MG (NEURONTIN) CAP PO SCH (21:16)
[2021-07-23] MEDS: polyethylene glycoL POWDER 17 GM (MIRALAX) PACK PO SCH (21:17)
[2021-07-24 00:14] VITALS: BP 134/65
[2021-07-24 04:50] VITALS: BP 131/71
[2021-07-24 05:22] LABS: HEMATOCRIT 38 % (35-52); HEMOGLOBIN 12.1 g/dL (11.5-16.0); MEAN CORPUSCULAR HEMOGLOBIN 29 pg (25-34); MEAN CORPUSCULAR HGB CONC 32 g/dL (32-36); MEAN CORPUSCULAR VOLUME 91 fL (80-99); MEAN PLATELET VOLUME 8.9 fL (9.0-12.2); PLATELET COUNT 248 10^3/uL (130-400); WHITE BLOOD COUNT 10.3 10^3/uL (4.3-11.0)
[2021-07-24 05:35] LABS: POTASSIUM 4.6 MMOL/L (3.6-5.0)
[2021-07-24 05:36] LABS: CALCIUM 9.4 MG/DL (8.5-10.1)
[2021-07-24 05:41] LABS: CREATININE SERUM 1.05 MG/DL (0.60-1.30)
[2021-07-24] MEDS: predniSONE 20 MG TAB PO SCH (05:58)
[2021-07-24] MEDS: ENOXAPARIN 40 MG/0.4 ML (LOVENOX) SYR SC SCH ×2 (05:58→17:38)
[2021-07-24] MEDS: LEVOTHYROXINE 100 MCG (LEVOTHROID) TAB PO SCH (05:58)
[2021-07-24] MEDS: inSUlin ASPART (NovoLOG) 1 UNIT/0.01 ML (CHARGE PER UNIT) SC SCH ×7 (05:59→20:30)
[2021-07-24] MEDS: RT-ALBUTEROL HFA 8.5 GM INHALER IH SCH ×5 (07:49→21:50)
[2021-07-24 07:55] VITALS: BP 128/73
[2021-07-24] MEDS: amLODIPine 5 MG (NORVASC) TAB PO SCH (08:52)
[2021-07-24] MEDS: SENNA W/DOCUSATE (SENOKOT S) TABLET PO SCH ×2 (08:52→22:22)
--- NOTE | 2021-07-24 10:39 | Physical Therapy Daily Note ---
PT Daily Note-Current Subjective Patient lying supine in bed upon PT arrival, agreeable to treatment. Patient rates pain at 0/10, however notes she is coughing more this morning and seems to be short on breath. Mental Status Patient Orientation: Person, Place, Time, Situation Attachments: Oxygen, Marte Catheter, IV Transfers SCALE: Activities may be completed with or without assistive devices. 7-Tjcimrgqum-dykkoal completes the activity by him/herself with no assistance from a helper. 5-Set-up or Clean-up Assistance-helper sets up or cleans up; patient completes activity. [place] assists only prior to or following the activity. 4-Supervision or Touching Assistance-helper provides verbal cues and/or touching/steadying and/or contact guard assistance as patient completes activity. Assistance may be provided throughout the activity or intermittently. 3-Partial/Moderate Assistance-helper does LESS THAN HALF the effort. [place] lifts, holds or supports trunk or limbs, but provides less than half the effort. 2-Substantial/Maximal Assistance-helper does MORE THAN HALF the effort. [place] lifts or holds trunk or limbs and provides more than half the effort. 7-Jvxjrhwtm-qbximh does ALL the effort. Patient does none of the effort to complete the activity. Or, the assistance of 2 or more helpers is required for the patient to complete the activity. If activity was not attempted, code reason: 7-Patient Refused. 9-Not Applicable-not attempted and the patient did not perform the activity before the current illness, exacerbation or injury. 10-Not Attempted due to Environmental Limitations-(lack of equipment, weather restraints, etc.). 88-Not Attempted due to Medical Conditions or Safety Concerns. Roll Left & Right (QC): 4 Sit to Lying (QC): 4 Lying to Sitting/Side of Bed(Q: 4 Gait Training Does the Patient Walk?: No and Walking Goal NOT indicated Exercises Supine Ex: Ankle pumps, Quad Set, Glut sets, Heel Slides, Short Arc Quads, Straight leg raise, Hip abd/add Supine Reps: 20 Treatments Patient performs dynamic sitting balance activities with UE reaching of each arm in various directions. Assessment Current Status: Fair Progress Patient tolerated treatment fair. She demonstrates minimal improvement in mobility, however also reports shortness of breath and coughs much more than yesterdays treatment. Patient performs all observed bed mobility with SBA. Patient performs LE therapeutic exercise as listed above. Patient left sidelyining post treatment with all needs met, nursing notified, call light in reach. PT Prison Goals Water Resource Specialist Goals PT Water Resource Specialist Goals Time Frame: Jul 25, 2021 Roll Left & Right (QC): 6 Sit to Lying (QC): 6 Lying-Sitting on Side/Bed(QC): 6 PT Plan Treatment/Plan Treatment Plan: Continue Plan of Care Treatment Plan: Bed Mobility, Education, Functional Activity Yesenia, Functional Strength, Gait, Safety, Therapeutic Exercise, Transfers Treatment Duration: Jul 25, 2021 Frequency: 6 times per week Estimated Hrs Per Day: .25 hour per day Patient and/or Family Agrees t: Yes Safety Risks/Education Patient Education: Transfer Techniques, Safety Issues Teaching Recipient: Patient Teaching Methods: Demonstration, Discussion Response to Teaching: Verbalize Understanding, Return Demonstration Time/GCodes Time In: 959 Time Out: 1025 Total Billed Treatment Time: 26 Total Billed Treatment Visit, Audra HUTCHINSON JOHN A PT Jul 24, 2021 10:39
[2021-07-24 11:53] VITALS: BP 131/67
--- NOTE | 2021-07-24 13:36 | Progress Note ---
Subjective Subjective/Events-last exam Afebrile, continues to feel well. Objective Exam Last Set of Vital Signs Vital Signs Date Time Temp Pulse Resp B/P (MAP) Pulse Ox O2 Delivery O2 Flow Rate FiO2 07/24/21 11:53 36.9 99 22 131/67 (88) 93 High Flow N/C 3.00 07/21/21 09:02 32 Capillary Refill : Less Than 3 Seconds I&O Intake and Output 07/24/21 00:00 Intake Total 1990 ml Output Total 2800 ml Balance -810 ml Intake Oral 1990 ml Output Urine Total 2800 ml # Bowel Movements 1 General: Alert, No Acute Distress Extremities: No Edema Neuro: Normal Speech Psych/Mental Status: Mental Status NL Results/Procedures Lab Laboratory Tests 07/23/21 15:22: Glucometer 275H 07/23/21 20:47: Glucometer 117H 07/24/21 05:15: White Blood Count 10.3, Red Blood Count 4.20, Hemoglobin 12.1, Hematocrit 38, Mean Corpuscular Volume 91, Mean Corpuscular Hemoglobin 29, Mean Corpuscular Hemoglobin Concent 32, Red Cell Distribution Width 16.8H, Platelet Count 248, Mean Platelet Volume 8.9L, Sodium Level 134L, Potassium Level 4.6, Chloride Level 97L, Carbon Dioxide Level 26, Anion Gap 11, Blood Urea Nitrogen 35H, Creatinine 1.05, Estimat Glomerular Filtration Rate 52, BUN/Creatinine Ratio 33, Glucose Level 135H, Calcium Level 9.4 07/24/21 05:55: Glucometer 151H 07/24/21 11:53: Glucometer 253H Microbiology 07/15/21 Blood Culture - Final, Complete No growth 07/15/21 Urine Culture - Final, Complete Morganella morganii Assessment/Plan Assessment/Plan (1) Acute and chronic respiratory failure Status: Resolved Assessment & Plan: - Patient titrated off bipap, on NC 3-4 LPM this AM, MAT protocol, Steroids 07/17: Continue to titrate oxygen as tolerated, MAT protocol 07/18: Continue to titrate 07/19: Patient at baseline oxygen, awaiting placement to SNF because care workers all have Covid 07/23- SNF won't accept until 21 days after COVID given ICU stay. (2) COPD with acute exacerbation Status: Acute Assessment & Plan: Resolving, is on prednisone taper. (3) COVID-19 Status: Acute (4) UTI (urinary tract infection) Status: Resolved Assessment & Plan: 07/18: Completed 3 days treatment with Zosyn, push PO hydration Qualifiers: Qualified Codes: N30.00 - Acute cystitis without hematuria (5) Type 2 diabetes mellitus with complication Status: Chronic Assessment & Plan: - Continue home insulin, Accuchecks, SSI, A1c pending 07/17: Increase levemir 20 BID 07/18: Blood sugars continue to be elevated, added meal time insulin (6) Primary hypertension Status: Chronic Assessment & Plan: - Restarted home meds 07/18: Increased Norvasc and holding lisinopril due to EAN (7) Acute kidney failure Status: Resolved Assessment & Plan: - Push PO hydration, trend BMP (8) Morbid obesity Status: Chronic (9) DVT prophylaxis Status: Acute Assessment & Plan: - Lovenox JULIENNE PAGAN MD Jul 24, 2021 13:36
[2021-07-24 15:56] VITALS: BP 183/81
[2021-07-24 20:06] VITALS: BP 177/82
[2021-07-24] MEDS: GABAPENTIN 300 MG (NEURONTIN) CAP PO SCH (22:22)
[2021-07-24] MEDS: polyethylene glycoL POWDER 17 GM (MIRALAX) PACK PO SCH (22:22)
[2021-07-25] VITALS (7 sets, daily range): BP systolic 119–160; BP diastolic 60–80
[2021-07-25] MEDS: RT-ALBUTEROL HFA 8.5 GM INHALER IH SCH ×6 (02:39→22:24)
[2021-07-25] MEDS: predniSONE 20 MG TAB PO SCH (05:24)
[2021-07-25] MEDS: LEVOTHYROXINE 100 MCG (LEVOTHROID) TAB PO SCH (05:24)
[2021-07-25] MEDS: inSUlin ASPART (NovoLOG) 1 UNIT/0.01 ML (CHARGE PER UNIT) SC SCH ×7 (05:25→21:18)
[2021-07-25] MEDS: ENOXAPARIN 40 MG/0.4 ML (LOVENOX) SYR SC SCH ×2 (05:25→18:39)
[2021-07-25] MEDS: SENNA W/DOCUSATE (SENOKOT S) TABLET PO SCH ×2 (09:06→21:18)
[2021-07-25] MEDS: amLODIPine 5 MG (NORVASC) TAB PO SCH (09:06)
--- NOTE | 2021-07-25 10:00 | Physical Therapy Daily Note ---
PT Daily Note-Current Subjective Patient reports pain at 0/10 currently. She reports "They brought my wheelchair up." Mental Status Patient Orientation: Person, Place, Time, Situation Attachments: Marte Catheter, IV Transfers SCALE: Activities may be completed with or without assistive devices. 7-Laxdunjush-atwyrvg completes the activity by him/herself with no assistance from a helper. 5-Set-up or Clean-up Assistance-helper sets up or cleans up; patient completes activity. [place] assists only prior to or following the activity. 4-Supervision or Touching Assistance-helper provides verbal cues and/or touching/steadying and/or contact guard assistance as patient completes activity. Assistance may be provided throughout the activity or intermittently. 3-Partial/Moderate Assistance-helper does LESS THAN HALF the effort. [place] lifts, holds or supports trunk or limbs, but provides less than half the effort. 2-Substantial/Maximal Assistance-helper does MORE THAN HALF the effort. [place] lifts or holds trunk or limbs and provides more than half the effort. 1-Dghxchgeg-lfumnd does ALL the effort. Patient does none of the effort to comp lete the activity. Or, the assistance of 2 or more helpers is required for the patient to complete the activity. If activity was not attempted, code reason: 7-Patient Refused. 9-Not Applicable-not attempted and the patient did not perform the activity before the current illness, exacerbation or injury. 10-Not Attempted due to Environmental Limitations-(lack of equipment, weather restraints, etc.). 88-Not Attempted due to Medical Conditions or Safety Concerns. Roll Left & Right (QC): 5 Sit to Lying (QC): 5 Lying to Sitting/Side of Bed(Q: 5 Gait Training Does the Patient Walk?: No and Walking Goal NOT indicated Exercises Supine Ex: Ankle pumps, Quad Set, Glut sets, Heel Slides, Short Arc Quads, Straight leg raise, Hip abd/add Supine Reps: 20 Treatments Patient performed dynamic sitting balance with reaching of bilateral UEs into e ach direction 6 sets of 10 Assessment Current Status: Good Progress Patient tolerated treatment well. Demonstrates good overall improvement in bed mobility and transfers. Patient performs LE therapeutic exercise as listed above with the left LE. Patient performs all observed bed mobility with Setup and is able to slide herself up higher in the bed with the HOB declined. Patient performs dynamic sitting balance activity with reaching of bilateral UEs into various directions 6 sets of 10. Patient in bed post treatment with all needs met, nursing notified, call light in hand. PT Senior Living Goals Senior Living Goals PT Launch Steward Goals Time Frame: Jul 25, 2021 Roll Left & Right (QC): 6 Sit to Lying (QC): 6 Lying-Sitting on Side/Bed(QC): 6 PT Plan Treatment/Plan Treatment Plan: Continue Plan of Care Treatment Plan: Bed Mobility, Education, Functional Activity Yesenia, Functional Strength, Gait, Safety, Therapeutic Exercise, Transfers Treatment Duration: Jul 25, 2021 Frequency: 6 times per week Estimated Hrs Per Day: .25 hour per day Patient and/or Family Agrees t: Yes Safety Risks/Education Patient Education: Transfer Techniques Teaching Recipient: Patient Teaching Methods: Demonstration, Discussion Response to Teaching: Verbalize Understanding, Return Demonstration Time/GCodes Time In: 930 Time Out: 955 Total Billed Treatment Time: 25 Total Billed Treatment Visit, EVANGELINA Zhu JOHN A PT Jul 25, 2021 10:00
--- NOTE | 2021-07-25 14:07 | Progress Note ---
Subjective Subjective/Events-last exam Feeling well, denies concerns. Objective Exam Last Set of Vital Signs Vital Signs Date Time Temp Pulse Resp B/P (MAP) Pulse Ox O2 Delivery O2 Flow Rate FiO2 07/25/21 13:00 91 07/25/21 10:57 96 Nasal Cannula 3.00 07/25/21 08:55 36.4 22 140/69 (92) 07/21/21 09:02 32 Capillary Refill : Less Than 3 Seconds I&O Intake and Output 07/25/21 00:00 Intake Total 1860 ml Output Total 3300 ml Balance -1440 ml Intake Oral 1860 ml Output Urine Total 3300 ml General: Alert, No Acute Distress Neuro: Normal Speech Psych/Mental Status: Mood NL Results/Procedures Lab Laboratory Tests 07/24/21 16:01: Glucometer 225H 07/24/21 20:10: Glucometer 167H 07/25/21 05:22: Glucometer 121H 07/25/21 10:48: Glucometer 288H Microbiology 07/15/21 Blood Culture - Final, Complete No growth 07/15/21 Urine Culture - Final, Complete Morganella morganii Assessment/Plan Assessment/Plan (1) Acute and chronic respiratory failure Status: Resolved Assessment & Plan: - Patient titrated off bipap, on NC 3-4 LPM this AM, MAT protocol, Steroids 07/17: Continue to titrate oxygen as tolerated, MAT protocol 07/18: Continue to titrate 07/19: Patient at baseline oxygen, awaiting placement to SNF because care workers all have Covid 07/23- SNF won't accept until 21 days after COVID given ICU stay. (2) COPD with acute exacerbation Status: Acute Assessment & Plan: Resolving, is on prednisone taper. (3) COVID-19 Status: Acute (4) UTI (urinary tract infection) Status: Resolved Assessment & Plan: 07/18: Completed 3 days treatment with Zosyn, push PO hydration Qualifiers: Qualified Codes: N30.00 - Acute cystitis without hematuria (5) Type 2 diabetes mellitus with complication Status: Chronic Assessment & Plan: - Continue home insulin, Accuchecks, SSI, A1c pending 07/17: Increase levemir 20 BID 07/18: Blood sugars continue to be elevated, added meal time insulin (6) Primary hypertension Status: Chronic Assessment & Plan: - Restarted home meds 07/18: Increased Norvasc and holding lisinopril due to EAN (7) Acute kidney failure Status: Resolved Assessment & Plan: - Push PO hydration, trend BMP (8) Morbid obesity Status: Chronic (9) DVT prophylaxis Status: Acute Assessment & Plan: - JULIENNE Higuera MD Jul 25, 2021 14:06
[2021-07-25] MEDS: polyethylene glycoL POWDER 17 GM (MIRALAX) PACK PO SCH (21:18)
[2021-07-25] MEDS: GABAPENTIN 300 MG (NEURONTIN) CAP PO SCH (21:31)
[2021-07-26] MEDS: RT-ALBUTEROL HFA 8.5 GM INHALER IH SCH ×3 (02:50→11:36)
[2021-07-26 04:13] VITALS: BP 120/66
[2021-07-26] MEDS: inSUlin ASPART (NovoLOG) 1 UNIT/0.01 ML (CHARGE PER UNIT) SC SCH ×4 (06:38→12:06)
[2021-07-26] MEDS: LEVOTHYROXINE 100 MCG (LEVOTHROID) TAB PO SCH (06:38)
[2021-07-26] MEDS: ENOXAPARIN 40 MG/0.4 ML (LOVENOX) SYR SC SCH (06:39)
[2021-07-26] MEDS: predniSONE 20 MG TAB PO SCH (06:39)
[2021-07-26 08:00] VITALS: BP 132/60
[2021-07-26] MEDS: amLODIPine 5 MG (NORVASC) TAB PO SCH (08:50)
[2021-07-26] MEDS: SENNA W/DOCUSATE (SENOKOT S) TABLET PO SCH (08:51)
--- NOTE | 2021-07-26 10:47 | Physical Therapy Daily Note ---
PT Daily Note-Current Subjective Patient reports 0/10 pain currently. Reports she may be going home on Thursday. Mental Status Patient Orientation: Person, Place, Time, Situation Transfers SCALE: Activities may be completed with or without assistive devices. 6-Zwuniajiuu-bqimdro completes the activity by him/herself with no assistance from a helper. 5-Set-up or Clean-up Assistance-helper sets up or cleans up; patient completes activity. [place] assists only prior to or following the activity. 4-Supervision or Touching Assistance-helper provides verbal cues and/or touching/steadying and/or contact guard assistance as patient completes activity. Assistance may be provided throughout the activity or intermittently. 3-Partial/Moderate Assistance-helper does LESS THAN HALF the effort. [place] lifts, holds or supports trunk or limbs, but provides less than half the effort. 2-Substantial/Maximal Assistance-helper does MORE THAN HALF the effort. [place] lifts or holds trunk or limbs and provides more than half the effort. 2-Viphnzvmb-ypfhom does ALL the effort. Patient does none of the effort to complete the activity. Or, the assistance of 2 or more helpers is required for the patient to complete the activity. If activity was not attempted, code reason: 7-Patient Refused. 9-Not Applicable-not attempted and the patient did not perform the activity before the current illness, exacerbation or injury. 10-Not Attempted due to Environmental Limitations-(lack of equipment, weather restraints, etc.). 88-Not Attempted due to Medical Conditions or Safety Concerns. Roll Left & Right (QC): 4 Sit to Lying (QC): 4 Lying to Sitting/Side of Bed(Q: 3 Exercises Supine Ex: Ankle pumps, Quad Set, Glut sets, Heel Slides, Straight leg raise, Hip abd/add Supine Reps: 20 Treatments Patient performed dynamic sitting balance with reaching of bilateral UEs into each direction 6 sets of 10 Assessment Patient tolerated treatment well. Demonstrates good overall improvement in bed mobility and transfers. Patient performs LE therapeutic exercise as listed above with the left LE. Patient performs all observed bed mobility with Setup and is able to slide herself up higher in the bed with the HOB declined. Patient performs dynamic sitting balance activity with reaching of bilateral UEs into various directions 6 sets of 10. Patient in bed post treatment with all needs met, nursing notified, call light in hand. PT Bearing Machine Operator Goals Care Home Goals PT Care Home Goals Time Frame: Jul 25, 2021 Roll Left & Right (QC): 6 Sit to Lying (QC): 6 Lying-Sitting on Side/Bed(QC): 6 PT Plan Treatment/Plan Treatment Plan: Continue Plan of Care Treatment Plan: Bed Mobility, Education, Functional Activity Yesenia, Functional Strength, Gait, Safety, Therapeutic Exercise, Transfers Treatment Duration: Jul 25, 2021 Frequency: 6 times per week Estimated Hrs Per Day: .25 hour per day Patient and/or Family Agrees t: Yes Safety Risks/Education Patient Education: Transfer Techniques, Safety Issues Teaching Recipient: Patient Teaching Methods: Demonstration, Discussion Response to Teaching: Verbalize Understanding, Return Demonstration Time/GCodes Time In: 942 Time Out: 1007 Total Billed Treatment Time: 25 Total Billed Treatment Visit, EVANGELINA, ANGEL Croft PT Jul 26, 2021 10:47
[2021-07-26] MEDS ORDERED: PRD10T PO (11:49)
--- NOTE | 2021-07-26 11:55 | D/C HH Face to Face Order ---
D/C Face to Face Orders Instructions for Patient Patient Instructions/FollowUp: Follow up with primary physician within a week of discharge. Physician to follow Patient: Penny Katz APRN Discharge Diet for Home: ADA Diet Patient Problems: COVID19 pneumonia Acute on chronic respiratory failure COPD exacerbation Urinary tract infection DMII HTN Acute renal insufficiency Patient Data-Allergies,Ht & Wt Patient Allergies: Coded Allergies: diphenhydramine (Verified Allergy, Unknown, 06/10/21) Height (Inches): 64.00 Weight (Pounds): 261 Home Health Need/Face to Face Date of Face to Face: Jul 26, 2021 Clinical Findings: Non or partial weight bearing I have seen Pt [id number]: Yes Discharged To: Home Diagnosis/Conditions: See problems Patient is Homebound due to: Non-weight bearing Homebound Status Due to the above stated illness, injury or surgical procedure (medical condition or diagnosis) and associated clinical findings, the patient is homebound because of his/her inability to leave home except with aid of a matute pportive device and/or person AND leaving the home requires a considerable and taxing effort or is medically contraindicated. Pt req the following assistanc: Aid of another person Home Health Nursing Orders Home Health Services Order: Nursing Services, Physical Therapy-Evaluate & Treat Home Health Infusion Therapy Line Start Date: Jul 15, 2021 Certify Stmt I certify that this patient is under my care and that I, a nurse practitioner or a physician; a assistant associate full professor working with me, had a face to face encounter that - meets the physician face to face encounter requirements with this patient as dated. JULIENNE PAGAN MD Jul 26, 2021 11:55
--- NOTE | 2021-07-26 11:55 | Discharge Summary ---
Discharge Summary Hospital Course Problems/Diagnosis: (1) Acute and chronic respiratory failure Status: Resolved Assessment & Plan: - Patient titrated off bipap, on NC 3-4 LPM this AM, MAT protocol, Steroids 07/17: Continue to titrate oxygen as tolerated, MAT protocol 07/18: Continue to titrate 07/19: Patient at baseline oxygen, awaiting placement to SNF because care workers all have Covid 07/23- SNF won't accept until 21 days after COVID given ICU stay, patient monitored until care able to be set up at home which occurred on 07/26. (2) COPD with acute exacerbation Status: Acute Assessment & Plan: Resolving, is on prednisone taper- 2 days left on d/c. (3) COVID-19 Status: Acute (4) UTI (urinary tract infection) Status: Resolved Resolution Date/Time: 07/19/21 @ 17:40 Assessment & Plan: 07/18: Completed 3 days treatment with Zosyn, push PO hydration Qualifiers: Qualified Codes: N30.00 - Acute cystitis without hematuria (5) Type 2 diabetes mellitus with complication Status: Chronic Assessment & Plan: - Continue home insulin, Accuchecks, SSI, A1c pending 07/17: Increase levemir 20 BID 07/18: Blood sugars continue to be elevated, added meal time insulin 07/26 resumed home meds on d/c. (6) Primary hypertension Status: Chronic Assessment & Plan: - Restarted home meds 07/18: Increased Norvasc and holding lisinopril due to EAN 07/26- resumed home meds on d/c (7) Acute kidney failure Status: Resolved Resolution Date/Time: 07/19/21 @ 17:40 Assessment & Plan: - Push PO hydration, trend BMP (8) Morbid obesity Status: Chronic Hospital Course Date of Admission: Jul 15, 2021 at 15:02 Admission Diagnosis : Family Physician/Provider: [facility] [place] Date of Discharge: 07/26/21 Discharge Diagnosis: See problem list Hospital Course: See problem list Labs and Pending Lab Test: Laboratory Tests 07/25/21 16:40: Glucometer 149H 07/25/21 20:35: Glucometer 149H 07/26/21 06:38: Glucometer 171H 07/26/21 11:51: Glucometer 300H Microbiology 07/15/21 Blood Culture - Final, Complete No growth 07/15/21 Urine Culture - Final, Complete Morganella morganii Home Meds Active Prednisone 10 Mg Tab 10 Mg PO DAILY 2 Days Reported Amlodipine Besylate 5 Mg Tablet 5 Mg PO DAILY Lisinopril 10 Mg Tablet 10 Mg PO DAILY Cyclobenzaprine HCl 5 Mg Tablet 5 Mg PO DAILY PRN Oxycodone HCl 15 Mg Tablet 15 Mg PO Q4H PRN Multivitamin 1 Each Tablet 1 Each PO DAILY B Complex (Vitamin B Complex) 1 Each Tablet 1 Each PO DAILY Metoprolol Tartrate 50 Mg Tablet 25 Mg PO BID PRN TAKES OF A 50MG TAB Albuterol Sulfate 2.5 Mg/3 Ml Vial.neb 3 Ml NEB Q6H PRN Vitamin D3 (Cholecalciferol (Vitamin D3)) 50 Mcg Capsule 50 Mcg PO DAILY Januvia (Sitagliptin Phosphate) 100 Mg Tablet 100 Mg PO DAILY Eliquis (Apixaban) 5 Mg Tablet 5 Mg PO BID Atorvastatin Calcium 20 Mg Tablet 20 Mg PO HS Melatonin 5 Mg Tablet 5 Mg PO HS PRN Tylenol Extra Strength (Acetaminophen) 500 Mg Tablet 1,000 Mg PO Q6H PRN Magnesium (Magnesium Oxide) 400 Mg Tablet 400 Mg PO HS Vitamin C (Ascorbate Calcium) 500 Mg Tablet 500 Mg PO DAILY Neurontin (Gabapentin) 300 Mg Capsule 300 Mg PO HS Novolog Flexpen (Insulin Aspart) 300 Units/3 Ml Solution 5 Units SC AC Ozempic (Semaglutide) 1 Mg/0.75 Ml Pen.injctr 1 Mg INJ SUN Ventolin Hfa (Albuterol Sulfate) 18 Gm Hfa.aer.ad 2 Puff INH Q4H PRN Levothyroxine Sodium 100 Mcg Tablet 100 Mcg PO DAILY Levemir Flextouch (Insulin Detemir) 100 Unit/1 Ml Insuln.pen 15 Units SC BID Assessment/Pt DC Instructions Follow up with primary physician within a week of discharge. Discharge Diet: ADA Diet Activity as Tolerated: Yes Discharge Physical Examination Allergies: Coded Allergies: diphenhydramine (Verified Allergy, Unknown, 06/10/21) General Appearance: No Apparent Distress, Obese Respiratory: No Respiratory Distress Skin: Normal Color, Warm/Dry Neurologic/Psychiatric: Alert, Normal Mood/Affect JULIENNE PAGAN MD Jul 26, 2021 11:55
[2021-07-26 12:00] VITALS: BP 145/67
== END 2021-07-26 13:45 | disposition home health service (06) | DRG 177 ==
LOC: EDUNIT# 12:32 → ER 12:36 → ICU 15:02 → 4TH 07-16 15:55
PROVIDERS: ADMIT Family Medicine; ATTEND Family Medicine
PROC: 5A09357 Assistance with Respiratory Ventilation, Less than 24 Consecutive Hours, Continuous Positive Airway Pressure (ICD-10-PCS; principal; 2021-07-15)
DX: U07.1 COVID-19 (principal); J12.82 Pneumonia due to coronavirus disease 2019; J96.21 Acute and chronic respiratory failure with hypoxia; J96.22 Acute and chronic respiratory failure with hypercapnia; J44.0 Chronic obstructive pulmonary disease with (acute) lower respiratory infection; J44.1 Chronic obstructive pulmonary disease with (acute) exacerbation; I48.20 Chronic atrial fibrillation, unspecified; N17.9 Acute kidney failure, unspecified; N39.0 Urinary tract infection, site not specified; Z68.41 Body mass index [BMI] 40.0-44.9, adult; Z79.4 Long term (current) use of insulin; Z79.890 Hormone replacement therapy; Z79.899 Other long term (current) drug therapy; F17.210 Nicotine dependence, cigarettes, uncomplicated; Z89.611 Acquired absence of right leg above knee; Z90.5 Acquired absence of kidney; K21.9 Gastro-esophageal reflux disease without esophagitis; I50.9 Heart failure, unspecified; E78.00 Pure hypercholesterolemia, unspecified; I11.0 Hypertensive heart disease with heart failure; K57.90 Diverticulosis of intestine, part unspecified, without perforation or abscess without bleeding; M81.0 Age-related osteoporosis without current pathological fracture; M19.90 Unspecified osteoarthritis, unspecified site; G89.29 Other chronic pain; M54.9 Dorsalgia, unspecified; E03.9 Hypothyroidism, unspecified; Z85.528 Personal history of other malignant neoplasm of kidney; F41.9 Anxiety disorder, unspecified; E11.51 Type 2 diabetes mellitus with diabetic peripheral angiopathy without gangrene; E66.01 Morbid (severe) obesity due to excess calories
CPT/HCPCS: 36415; 36600; 71045; 80048; 80053; 81000; 82805; 82947; 83036; 83605; 83735; 83880; 84100; 84484; 85025; 85027; 85379; 85610; 85730; 87040; 87077; 87088; 87186; 87636; 93005; 94640; 94760; 96365; 96375; 99291

== ENCOUNTER 2021-08-19 12:04 | Outpatient (RCR) | payer MEDICARE, MEDICAID ==
[~2021-08-19 12:04] MED LIST changes: +CYCL5TAB PO; +PRD10T PO
[2021-08-19 12:57] LABS: BASOPHILS # (AUTO) 0.1 10^3/uL (0.0-0.1); BASOPHILS % (AUTO) 1 % (0-10); EOSINOPHILS # (AUTO) 0.4 10^3/uL (0.0-0.3); EOSINOPHILS % (AUTO) 3 % (0-10); HEMATOCRIT 42 % (35-52); HEMOGLOBIN 13.3 g/dL (11.5-16.0); LYMPHOCYTES # (AUTO) 1.9 10^3/uL (1.0-4.0); LYMPHOCYTES % (AUTO) 15 % (12-44); MEAN CORPUSCULAR HEMOGLOBIN 30 pg (25-34); MEAN CORPUSCULAR HGB CONC 32 g/dL (32-36); MEAN CORPUSCULAR VOLUME 94 fL (80-99); MONOCYTES % (AUTO) 8 % (0-12); NEUTROPHILS # (AUTO) 9.1 10^3/uL (1.8-7.8); NEUTROPHILS % (AUTO) 71 % (42-75); PLATELET COUNT 344 10^3/uL (130-400); WHITE BLOOD COUNT 12.8 10^3/uL (4.3-11.0)
[2021-08-19 13:20] LABS: ALBUMIN 3.6 GM/DL (3.2-4.5); BILIRUBIN,TOTAL 0.7 MG/DL (0.1-1.0); CALCIUM 9.2 MG/DL (8.5-10.1); CREATININE SERUM 1.25 MG/DL (0.60-1.30); POTASSIUM 4.6 MMOL/L (3.6-5.0); TOTAL PROTEIN 7.2 GM/DL (6.4-8.2)
== END 2021-09-09 | disposition home or self-care (01) ==
LOC: ONC 12:04
PROVIDERS: ATTEND Internal Medicine Hematology & Oncology
DX: C64.2 Malignant neoplasm of left kidney, except renal pelvis (principal); L02.415 Cutaneous abscess of right lower limb; M86.8X8 Other osteomyelitis, other site; E11.22 Type 2 diabetes mellitus with diabetic chronic kidney disease; I12.9 Hypertensive chronic kidney disease with stage 1 through stage 4 chronic kidney disease, or unspecified chronic kidney disease; N18.30 Chronic kidney disease, stage 3 unspecified; J44.9 Chronic obstructive pulmonary disease, unspecified; E78.2 Mixed hyperlipidemia; E66.01 Morbid (severe) obesity due to excess calories; I48.21 Permanent atrial fibrillation; Z98.890 Other specified postprocedural states; Z90.5 Acquired absence of kidney; Z90.6 Acquired absence of other parts of urinary tract
CPT/HCPCS: 80053; 85025; 99213

== ENCOUNTER → 2021-08-26 | Outpatient (CLI) | payer MEDICARE, MEDICAID ==
[~2021-08-26] MED LIST changes: +BARIUM SUSPENSION 2.1% (VANILLA SILQ) 450 ML PO ONE; +CATHETER FLUSH 10 ML SYR IV PRN; +HOLD METFORMIN - RECEIVED CONTRAST 20 ML VIAL IV SCH; +IOHEXOL 350 MG/ML 100 ML (OMNIPAQUE 350) VIAL IV ONE; +NS 100 ML (IVPB) BAG IV ONE
--- NOTE | 2021-08-26 10:57 | Diagnostic Imaging Report ---
PROCEDURE: CT chest with contrast, CT abdomen and pelvis with and without contrast. TECHNIQUE: Pre and post intravenous contrast axial imaging of the abdomen and pelvis and post contrast axial imaging of the chest were performed. Auto Exposure Controls were utilized during the CT exam to meet ALARA standards for radiation dose reduction. INDICATION: Kidney cancer, follow-up. COMPARISON: Correlation is made with prior CT chest study from 04/27/[address] abdomen and pelvis study from 05/22/2021. FINDINGS: CT CHEST: No axillary lymphadenopathy is detected. No mediastinal or hilar lymphadenopathy is detected. No pericardial or pleural fluid is identified. Significant improved aeration to both lungs is noted since prior CT chest. There is some minimal residual atelectasis in the lingula and left upper lobe. No parenchymal mass or nodule is seen. CT ABDOMEN AND PELVIS: No discrete liver mass is detected. Gallbladder is surgically absent. There is no biliary ductal dilatation. Pancreas and spleen are unremarkable. No adrenal mass is detected. Left kidney is surgically absent. No residual or recurrent mass in the left renal fossa is identified. Right kidney contains a 3.6 cm low-attenuation lesion consistent with a cyst. Aorta is heavily calcified but nonaneurysmal. No central retroperitoneal or mesenteric lymphadenopathy is seen. Bowel loops are normal in caliber. There is extensive diverticulosis of the sigmoid colon and descending colon but no evidence of acute diverticulitis. There is no free fluid or fluid collection. There is an umbilical hernia containing small bowel loops. No definite evidence of strangulation or bowel obstruction is seen. There is also a left paramidline fat-containing ventral hernia more cephalad. Bladder is unremarkable. Uterus is surgically absent. No definite pelvic lymphadenopathy is seen. There are multiple soft tissue nodules in the subcutaneous tissues of the lower abdominal wall, perhaps injection granulomas. Bony structures are nonacute. IMPRESSION: 1. Significant improved appearance to the chest since prior CT from 04/27/2021. There has been marked improved aeration to both lungs. There is no evidence of thoracic lymphadenopathy or pulmonary metastatic disease. 2. Postoperative changes from left nephrectomy. No residual or recurrent neoplasm or evidence of abdominal or pelvic metastatic disease is detected. 3. Uncomplicated diverticulosis. 4. Umbilical and ventral hernias, as described. 5. Numerous subcutaneous nodules within the anterior abdominal wall, perhaps owing to injection granulomas. Clinical correlation is recommended. The previously noted fluid collections have significantly improved. Dictated by: Dictated on workstation # [id number]
== END ==
LOC: RAD 09:45
PROVIDERS: ATTEND Nurse Practitioner Adult Health
DX: K57.30 Diverticulosis of large intestine without perforation or abscess without bleeding (principal); C64.2 Malignant neoplasm of left kidney, except renal pelvis; K42.9 Umbilical hernia without obstruction or gangrene; K43.9 Ventral hernia without obstruction or gangrene; Z90.5 Acquired absence of kidney; Z98.890 Other specified postprocedural states
CPT/HCPCS: 71260; 74178